=== PATIENT | male | born 1950 | race Caucasian/White ===

== ENCOUNTER 2023-09-08 02:36 | Outpatient (REF) | payer MEDICARE, SELFPAY ==
[2023-09-08 08:14] LABS: Basophils Absolute Auto 0.1 10^3/uL (0.0-0.1); Basophils Percent Auto 0.5 % (0.2-2.0); Eosinophils Absolute Auto 0.1 10^3/uL (0.0-0.7); Eosinophils Percent Auto 0.7 % (0.9-7.0); Hemoglobin 7.2 g/dL (14.0-18.0); Immature Granulocytes Abs Auto 0.04 10^3/uL (0.00-0.03); Immature Granulocytes Pct Auto 0.4 % (0.0-0.5); Lymphocytes Absolute Auto 0.7 10^3/uL (1.2-3.8); Lymphocytes Percent Auto 7.1 % (20.5-60.0); Mean Corpuscular Hemoglobin 27.2 pg (25.9-34.0); Mean Corpuscular Volume 90.6 fL (80.0-94.0); Mean Platelet Volume 11.3 fL (9.5-13.5); Monocytes Absolute Auto 0.8 10^3/uL (0.3-0.8); Monocytes Percent Auto 7.9 % (1.7-12.0); Neutrophils Percent Auto 83.4 % (43.0-75.0); Platelet Count 306 10^3/uL (150-450); Red Blood Count 2.65 10^6/uL (4.70-6.10); Red Cell Distribution Width 16.5 % (11.0-15.0); White Blood Count 9.6 10^3/uL (4.0-11.0)
[2023-09-08 08:41] LABS: Alanine Aminotransferase 14 U/L (16-63); Albumin Globulin Ratio 0.5; Albumin Level 2.3 g/dL (3.4-5.0); Alkaline Phosphatase 89 U/L (46-116); Anion Gap 10.8; Aspartate Amino Transferase 12 U/L (15-37); Bilirubin Total 0.3 mg/dL (0.2-1.0); Calcium 9.6 mg/dL (8.5-10.1); Carbon Dioxide 29.2 mmol/L (21.0-32.0); Chloride 101 mmol/L (98-107); Estimated GFR (African America >60 (>=60); Estimated GFR (Non-African Ame >60 (>=60); Globulin 4.3 g/dL; Glucose 88 mg/dL (74-106); Sodium 137 mmol/L (136-145); Total Protein 6.6 g/dL (6.4-8.2)
== END 2023-09-08 02:37 | disposition home or self-care (01) ==
LOC: LAB 02:36
PROVIDERS: Visit Provider Family Medicine
DX: Z51.81 Encounter for therapeutic drug level monitoring (principal)
CPT/HCPCS: 36415; 80053; 85025

== ENCOUNTER 2023-10-26 07:34 | Outpatient (RCR) | payer MEDICARE, SELFPAY ==
[2023-10-10 15:59] LABS: Hematocrit 24.8 % (42.0-54.0); Mean Corpuscular HGB Conc 27.8 g/dL (29.9-35.2); Mean Corpuscular Hemoglobin 24.3 pg (25.9-34.0); Mean Corpuscular Volume 87.3 fL (80.0-94.0); Mean Platelet Volume 10.6 fL (9.5-13.5); Platelet Count 314 10^3/uL (150-450); Red Blood Count 2.84 10^6/uL (4.70-6.10); Red Cell Distribution Width 15.5 % (11.0-15.0); Reticulocyte Pct Auto 3.24 % (0.60-3.10); White Blood Count 6.9 10^3/uL (4.0-11.0)
[2023-10-10 16:04] LABS: Hemoglobin 6.9 g/dL (14.0-18.0)
[2023-10-10 16:14] LABS: C Reactive Protein 0.65 mg/dL (<=0.50); Lactate Dehydrogenase 162 U/L (85-227)
[2023-10-10 16:41] LABS: Percent Iron Saturation 26.5 %
[2023-10-10 18:14] LABS: Band Neutrophils Absolute 0.3 10^3/uL (0.0-0.3); Eosinophils Absolute Manual 0.34 10^3/uL (0.00-0.70); Lymphocytes Absolute Manual 0.69 10^3/uL (1.20-3.80); Metamyelocytes Absolute Manual 0.06; Monocytes Absolute Manual 0.34 10^3/uL (0.30-0.80); Segmented Neut Absolute Manual 5.17 10^3/uL (1.4-6.5)
[2023-10-11 13:27] VITALS: BP 126/57; PULSE 66; TEMP 37; O2SAT 95
[2023-10-11] MEDS: 0.9 % SODIUM CHLORIDE 250 ML 10 ML IV (13:30)
[2023-10-11] MEDS: ACETAMINOPHEN 325 MG TABLET 650 MG PO (13:33)
[2023-10-11] MEDS: DIPHENHYDRAMINE HCL 25 MG CAPSULE PO (13:33)
--- NOTE | 2023-10-11 13:38 | PC.NURSE ---
1320: Pt. to [facility] via w/c per. granddaughters. Assisted to recliner. Pt. with continuous O2 at 2L n/c. VSS. Denies c/o. IV initiated to right hand per this Rn, see documentation. Medicated with Benadryl and Tylenol as ordered. Second type and crossmatch drawn. Pt. made comfortable. Given warm blanket and water. Declines snack.
[2023-10-11 14:12] LABS: Erythrocyte Sedimentation Rate 31 mm/hr (<=20)
[2023-10-11 14:16] VITALS: BP 126/57; PULSE 66; TEMP 37; O2SAT 95
--- NOTE | 2023-10-11 14:20 | PC.NURSE ---
1418: 1 unit PRBC initiated at this time. Pt. denies needs or c/o.
[2023-10-11 14:32] VITALS: BP 136/63; PULSE 67; TEMP 36.9; O2SAT 100
--- NOTE | 2023-10-11 14:33 | PC.NURSE ---
1432: Pt. without c/o. VSS. Denies dyspnea or c/o pain or chills. O2 maintained at 2L n/c.
--- NOTE | 2023-10-11 15:05 | PC.NURSE ---
1505: Pt. without change. IV site remains clear. Denies needs.
[2023-10-11 15:18] VITALS: BP 127/54; PULSE 61; TEMP 36.7; O2SAT 94
--- NOTE | 2023-10-11 15:29 | PC.NURSE ---
Assisted to bathroom to void.
[2023-10-11 15:48] VITALS: BP 132/66; PULSE 62; TEMP 36.9; O2SAT 94
--- NOTE | 2023-10-11 15:49 | PC.NURSE ---
1540: Pt. pulled call light. Pulled IV catheter out by accident when attempting to clean self after defecating. Approximately 10ML blood left in bag. IV left out. Pressure to site. Pt. assisted with baldomero care. Assisted in to w/c. Denies c/o. VSS.
--- NOTE | 2023-10-11 16:07 | PC.NURSE ---
1558: Pt. without s&s of adverse reaction. Pt. d/c'd via w/c to home with granddaughter.
[2023-10-12 15:10] LABS: Albumin 3.2 g/dL (2.9-4.4); Alpha-1-Globulin 0.3 g/dL (0.0-0.4); Alpha-2-Globulin 0.8 g/dL (0.4-1.0); Gamma Globulin 1.4 g/dL (0.4-1.8); Immunoglobulin A, Qn, Serum 460 mg/dL (61-437); Immunoglobulin G, Qn, Serum 1218 mg/dL (603-1613); Immunoglobulin M, Qn, Serum 191 mg/dL (15-143); Protein, Total 6.7 g/dL (6.0-8.5)
[2023-10-26 09:32] VITALS: BP 119/61; PULSE 86; TEMP 37; O2SAT 94
--- NOTE | 2023-10-26 09:34 | PC.NURSE ---
0920 Arrrival per w/c to chair 4. home oxygen removed, placed on 2 lpm nc wall oxygen, alert oriented offers no complaints. educated on regime for administration of Infed (premeds, test dose, if no reaction then infusion. patient verbalizes understanding. 0925 # 22 inserted on 1 attempt posterior aspect of rt arm, tolerated well.
--- NOTE | 2023-10-26 09:47 | PC.NURSE ---
0923 labs drawn from site and sent to lab
[2023-10-26] MEDS: ACETAMINOPHEN 325 MG TABLET 650 MG PO (10:06)
[2023-10-26] MEDS: diphenhydrAMINE HCL 25 MG in 0.9 % SODIUM CHLORIDE 100 ML 301.5 MG IV (10:07)
[2023-10-26] MEDS: 0.9 % SODIUM CHLORIDE 250 ML 10 ML IV (10:13)
[2023-10-26] MEDS: HYDROCORTISONE SODIUM SUCC/PF 100 MG in 0.9 % SODIUM CHLORIDE 100 ML 306 MG IV (10:30)
[2023-10-26] MEDS: IRON DEXTRAN COMPLEX 100 MG/2 ML VIAL 25 MG IVP (10:56)
--- NOTE | 2023-10-26 10:58 | PC.NURSE ---
premeds infused, test dose administered, educated on s/s of reaction, itching shortness of breath wheezing chest pain ...any outof the ordinary to notify staff, verbalizes understanding
--- NOTE | 2023-10-26 11:29 | PC.NURSE ---
tolerating test dose without any issues.
--- NOTE | 2023-10-26 12:07 | PC.NURSE ---
infed infusion initiated patient reinstructed on s/s rxn as documented earlier, verbalizes understanding
[2023-10-26 12:10] VITALS: BP 125/60; PULSE 81; TEMP 36.8; O2SAT 95
[2023-10-26 13:57] VITALS: BP 146/74; PULSE 84; TEMP 36.7; O2SAT 92
--- NOTE | 2023-10-26 13:58 | PC.NURSE ---
1340 to bathroomper wheelchair, voids qs. returned to chair, tolerating infusion without difficulty
--- NOTE | 2023-10-26 15:15 | PC.NURSE ---
1500 iv iron infused. tolerated well. iv dc'd to bathroom per recliner. family arrives, assisted to wheelchair, released ambulatory
[2023-10-27 15:10] LABS: Hgb A 98.1 % (96.4-98.8); Hgb A2 1.9 % (1.8-3.2)
== END 2023-11-03 23:59 | disposition home or self-care (01) ==
LOC: INF 07:34
PROVIDERS: Visit Provider Internal Medicine Hematology & Oncology
DX: D50.9 Iron deficiency anemia, unspecified (principal); K90.9 Intestinal malabsorption, unspecified; D64.9 Anemia, unspecified; Z86.73 Personal history of transient ischemic attack (TIA), and cerebral infarction without residual deficits; J44.9 Chronic obstructive pulmonary disease, unspecified; Z99.81 Dependence on supplemental oxygen; Z96.641 Presence of right artificial hip joint
CPT/HCPCS: 36415; 36430; 82607; 82728; 82784; 83020; 83540; 83550; 83615; 84155; 84165; 85007; 85027; 85045; 85652; 86140; 86334; 86850; 86900; 86901; 96365; 96366; 96375; G0463; J1720; J1750; P9016

== ENCOUNTER 2023-12-12 07:30 | Outpatient (RCR) | payer MEDICARE, SELFPAY ==
[2023-12-12 14:03] LABS: Basophils Percent Auto 0.7 % (0.2-2.0); Eosinophils Absolute Auto 0.3 10^3/uL (0.0-0.7); Eosinophils Percent Auto 4.7 % (0.9-7.0); Hematocrit 28.1 % (42.0-54.0); Hemoglobin 8.7 g/dL (14.0-18.0); Immature Granulocytes Abs Auto 0.02 10^3/uL (0.00-0.03); Immature Granulocytes Pct Auto 0.3 % (0.0-0.5); Lymphocytes Percent Auto 16.6 % (20.5-60.0); Mean Corpuscular Hemoglobin 27.4 pg (25.9-34.0); Mean Corpuscular Volume 88.6 fL (80.0-94.0); Mean Platelet Volume 11.1 fL (9.5-13.5); Monocytes Absolute Auto 0.8 10^3/uL (0.3-0.8); Monocytes Percent Auto 12.5 % (1.7-12.0); Neutrophils Percent Auto 65.2 % (43.0-75.0); Platelet Count 268 10^3/uL (150-450); Red Blood Count 3.17 10^6/uL (4.70-6.10); White Blood Count 6.1 10^3/uL (4.0-11.0)
[2023-12-12 14:28] LABS: Anion Gap 7.6; BUN Creatinine Ratio 9.9; Calcium 9.2 mg/dL (8.5-10.1); Carbon Dioxide 30.2 mmol/L (21.0-32.0); Chloride 102 mmol/L (98-107); Estimated GFR (African America >60 (>=60); Estimated GFR (Non-African Ame >60 (>=60); Glucose 105 mg/dL (74-106); Potassium 3.8 mmol/L (3.5-5.1); Sodium 136 mmol/L (136-145); Thyroid Stimulating Hormone 2.516 uIU/mL (0.358-3.740)
[2023-12-12 14:55] LABS: Erythrocyte Sedimentation Rate 99 mm/hr (<=20)
== END 2023-12-14 15:28 | disposition home or self-care (01) ==
LOC: INF 07:30
PROVIDERS: Visit Provider Internal Medicine Hematology & Oncology
DX: D64.9 Anemia, unspecified (principal); K90.9 Intestinal malabsorption, unspecified; D50.9 Iron deficiency anemia, unspecified; Z87.891 Personal history of nicotine dependence; J44.9 Chronic obstructive pulmonary disease, unspecified; Z86.73 Personal history of transient ischemic attack (TIA), and cerebral infarction without residual deficits; Z99.81 Dependence on supplemental oxygen
CPT/HCPCS: 36415; 80048; 82306; 82607; 82728; 82746; 83540; 83550; 84443; 85025; 85652; G0463

== ENCOUNTER 2023-12-25 07:33 | Outpatient (RCR) | payer MEDICARE, SELFPAY ==
[2023-12-25 09:50] VITALS: BP 129/50; PULSE 91; TEMP 36.6; O2SAT 93
--- NOTE | 2023-12-25 10:06 | PC.NURSE ---
0950: Pt. to [facility] via w/c accompanied by daughter. Pt. with portable O2 in place. Assisted pt. to recliner. O2 to wall unit. VSS. IV initiated to left arm on first attempt, see documentation. Tolerated without c/o. Given warm blanket and pillow. Declines snack. Drinking beverage from home. Denies questions regarding medication. Denies needs.
[2023-12-25] MEDS: diphenhydrAMINE HCL 25 MG, HYDROCORTISONE SODIUM SUCC/PF 100 MG in 0.9 % SODIUM CHLORID... 307.5 MG IV (10:15)
[2023-12-25] MEDS: ACETAMINOPHEN 500 MG TABLET 1000 MG PO (10:16)
--- NOTE | 2023-12-25 10:26 | PC.NURSE ---
1015: Pre-meds administered at this time.
--- NOTE | 2023-12-25 11:00 | PC.NURSE ---
1050: Pre-meds completed without adverse reaction. IV Infed initiated at this time. Assisted pt. to bathroom. 1058: Returns to chair. Re-positioned for comfort. Denies needs.
--- NOTE | 2023-12-25 14:18 | PC.NURSE ---
1130: Tolerating infusion without c/o. Assisted back up to bathroom. Pt. voided and had BM. Returns to room. O2 maintained. Declines wanting to eat. 1215: No new change in overall status. Denies needs. 1300: Taken to bathroom via chair. 1425: Infusion completed at this time. Pt. tolerated without s&s of adverse reaction. IV d/c'd, pressure to site. Awaits in recliner for ride home.
--- NOTE | 2023-12-25 14:39 | PC.NURSE ---
1432: Pt. d/c'd via w/c with portable O2 intact to home with daughter.
== END 2024-01-03 23:59 | disposition home or self-care (01) ==
LOC: HEMC 07:33
PROVIDERS: Visit Provider Internal Medicine Hematology & Oncology
DX: D50.9 Iron deficiency anemia, unspecified (principal); K90.9 Intestinal malabsorption, unspecified
CPT/HCPCS: 96365; 96366; 96367; J1200; J1720; J1750

== ENCOUNTER 2024-01-11 07:58 | Outpatient (RCR) | payer MEDICARE, SELFPAY ==
[2024-01-11 10:09] LABS: Basophils Absolute Auto 0.1 10^3/uL (0.0-0.1); Basophils Percent Auto 0.8 % (0.2-2.0); Eosinophils Absolute Auto 0.2 10^3/uL (0.0-0.7); Eosinophils Percent Auto 3.8 % (0.9-7.0); Hematocrit 32.5 % (42.0-54.0); Hemoglobin 9.8 g/dL (14.0-18.0); Immature Granulocytes Abs Auto 0.03 10^3/uL (0.00-0.03); Immature Granulocytes Pct Auto 0.5 % (0.0-0.5); Lymphocytes Absolute Auto 0.8 10^3/uL (1.2-3.8); Lymphocytes Percent Auto 12.3 % (20.5-60.0); Mean Corpuscular HGB Conc 30.2 g/dL (29.9-35.2); Mean Corpuscular Hemoglobin 28.3 pg (25.9-34.0); Mean Corpuscular Volume 93.9 fL (80.0-94.0); Monocytes Absolute Auto 0.7 10^3/uL (0.3-0.8); Monocytes Percent Auto 10.2 % (1.7-12.0); Neutrophils Absolute Auto 4.6 10^3/uL (1.4-6.5); Neutrophils Percent Auto 72.4 % (43.0-75.0); Platelet Count 268 10^3/uL (150-450); Red Blood Count 3.46 10^6/uL (4.70-6.10); Red Cell Distribution Width 17.2 % (11.0-15.0); White Blood Count 6.4 10^3/uL (4.0-11.0)
[2024-01-11 10:14] LABS: Erythrocyte Sedimentation Rate 64 mm/hr (<=20)
[2024-01-11 10:49] LABS: Alanine Aminotransferase 25 U/L (16-63); Albumin Globulin Ratio 0.8; Albumin Level 3.5 g/dL (3.4-5.0); Alkaline Phosphatase 113 U/L (46-116); Anion Gap 9.1; Aspartate Amino Transferase 22 U/L (15-37); BUN Creatinine Ratio 16.3; Bilirubin Total 0.2 mg/dL (0.2-1.0); C Reactive Protein 0.72 mg/dL (<=0.50); Calcium 9.7 mg/dL (8.5-10.1); Carbon Dioxide 32.1 mmol/L (21.0-32.0); Chloride 100 mmol/L (98-107); Estimated GFR (African America >60 (>=60); Estimated GFR (Non-African Ame >60 (>=60); Globulin 4.2 g/dL; Glucose 109 mg/dL (74-106); Potassium 4.2 mmol/L (3.5-5.1); Sodium 137 mmol/L (136-145); Total Protein 7.7 g/dL (6.4-8.2)
[2024-01-11 11:23] LABS: Percent Iron Saturation 15.7 %
[2024-01-12 15:12] LABS: Albumin 3.7 g/dL (2.9-4.4); Alpha-1-Globulin 0.2 g/dL (0.0-0.4); Alpha-2-Globulin 0.8 g/dL (0.4-1.0); Free Kappa Lt Chains,S 65.5 mg/L (3.3-19.4); Free Lambda Lt Chains,S 51.5 mg/L (5.7-26.3); Gamma Globulin 1.2 g/dL (0.4-1.8); Immunofixation Result, Serum Comment: (.); Immunoglobulin A, Qn, Serum 490 mg/dL (61-437); Immunoglobulin G, Qn, Serum 1247 mg/dL (603-1613); Immunoglobulin M, Qn, Serum 187 mg/dL (15-143); Kappa/Lambda Ratio,S 1.27 (0.26-1.65)
[2024-01-15 15:08] LABS: Erythropoietin (EPO), Serum 33.4 mIU/mL (2.6-18.5)
== END 2024-02-03 23:59 | disposition home or self-care (01) ==
LOC: HEMC 07:58
PROVIDERS: Visit Provider Internal Medicine Hematology & Oncology
DX: D50.9 Iron deficiency anemia, unspecified (principal); K90.9 Intestinal malabsorption, unspecified; J44.9 Chronic obstructive pulmonary disease, unspecified; Z99.81 Dependence on supplemental oxygen; Z86.73 Personal history of transient ischemic attack (TIA), and cerebral infarction without residual deficits; Z96.641 Presence of right artificial hip joint
CPT/HCPCS: 36415; 80053; 82607; 82668; 82728; 82784; 83521; 83540; 83550; 84155; 84165; 85025; 85652; 86140; G0463

== ENCOUNTER 2024-04-16 07:46 | Outpatient (RCR) | payer MEDICARE, SELFPAY ==
--- OUTSIDE RECORDS SUMMARY | 2024-04-16 07:59 | XMS_ITS | CCD ---
Author Organization [facility] Care Team Providers Care Distributor Sales Consultant Name Role Phone PHYSICIAN, DEFAULT Unavailable Unavailable PHYSICIAN, DEFAULT Unavailable Unavailable ALI, GUILLORY Unavailable Unavailable ALI, GUILLORY Unavailable Unavailable POLINA QUEZADA Unavailable Unavailable POLINA QUEZADA Unavailable Unavailable IA Unavailable Unavailable ELTAHAWY, EHAB A Unavailable Unavailable IA Unavailable Unavailable ALI, GUILLORY Unavailable Unavailable NACHO, DR GUILLAUME Zavaleta Consulting Unavailable PILAR, DR POLINA Orellana Primary Care Unavailable NACHO, DR GUILLAUME Zavaleta Attending Unavailable NACHO, DR GUILLAUME Zavaleta Admitting Unavailable Kyle Max Consulting Unavailable PILAR, DR POLINA Orellana Primary Care Unavailable QUEZADA, DR POLINA Orellana Attending Unavailable PILAR, DR POLINA Orellana Admitting Unavailable Polina Quezada Unavailable MONTRELL HAIRSTON Admitting Unavailable MONTRELL HAIRSTON Attending Unavailable POLINA QUEZADA Primary Care Unavailable BRAULIO SANTANA Consulting Unavailable MICHELE LOVE Attending Unavailable SP DAY Primary Care Unavailable STEFANI EUBANKS Consulting Unavailable PRIYANKA, MUHAMID M Admitting Unavailable INPATIENT, TELENEUROLOGY Consulting Unavail able PETER GAY S Consulting Unavailable MICHELE LOVE Attending Unavailable MICHELE LOVE Referring Unavailable SP DAY Primary Care Unavailable MICHELE LOVE Attending Unavailable MICHELE LOVE Referring Unavailable SP DAY Primary Care Unavailable LIOR, CARL D Attending Unavailable LIOR, CARL D Referring Unavailable SP DAY B Primary Care Unavailable LIOR, CARL D Attending Unavailable LIOR, CARL D Referring Unavailable SP DAY Primary Care Unavailable JILLIAN GOMEZ Referring Unavailable REF PROV, NOT IN SYSTEM Referring Unavaila ble SP DAY Referring Unavailable NO PCP, NO PCP Primary Care Unavailable NO PCP, NO PCP Primary Care Unavailable JILLIAN GOMEZ Referring Unavailable STEPHANIE HALL Admitting Unavailable STEPHANIE HALL Attending Unavailable ROSELYN RAZO Referring Unavail able QUEZADA, POLINA Primary Care Unavailable KATHRIN PETERSON Consulting Unavail able MIGUEL A MEAD Consulting Unavailable ZAYNAB GUNN Consulting Unavailable MONTRELL OWENS Consulting Unavailabl e SAMIRA, BUBBA Consulting Unavailable PETER GAY Consulting Unavailable MARGARITA MARIE Consulting Unavailable BRANDON VAZQUEZ Consulting Unavailable CARY LYNCH Consulting Unavailable YENNI VELASCO Admitting Unavailable EYNNI VELASCO Attending Unavailable PRIYANKAMAT Coleman M Referring Unavailable DAY, SP B Primary Care Unavailable KOLTON SOMERS Consulting Unavailabl e [facility]ARDIOLOG[facility], [facility] Consulting Unavailable [facility] Consulting Unavailable RYDER RODRIGUEZ Consulting Unavailable PRIYANKAMAT Coleman M Referring Unavailable DAY, SP B Primary Care Unavailable CICI BELL Referring Unavailable DAY, SP B Primary Care Unavailable LIANET SNELL Referring Unavailable MAURICIO CLEVELAND Attending Unavailable TANK, MAURICIO Referring Unavailable LIANET SNELL Referring Unavailable DAY, PS B Primary Care Unavailable GLO LAKE Attending Unavailable GLO LAKE Referring Unavailable QUEZADA, POLINA E Primary Care Unavailable SALBADOR BANERJEE Attending Unavailable QUEZADA, POLINA E Primary Care Unavailable TANK, MAURICIO Attending Unavailable TANK, MAURICIO Referring Unavailable QUEZADA, POLINA E Primary Care Unavailable CRISTOFER, MAURICIO Attending Unavailable TANK, MAURICIO Referring Unavailable QUEZADA, POLINA E Primary Care Unavailable NOEL GREEN Referring Unavailable QUEZADA, POLINA E Primary Care Unavailable STEVO WASHINGTON Referring Unavailable QUEZADA, POLINA E Primary Care Unavailable QUEZADA, POLINA E Referring Unavailable QUEZADA, POLINA E Primary Care Unavailable TANK, MAURICIO Referring Unavailable QUEZADA, POLINA E Primary Care Unavailable CRISTOFER, MAURICIO Attending Unavailable QUEZADA, POLINA E Referring Unavailable QUEZADA, POLINA E Primary Care Unavailable MD Polina Quezada Primary Care Provider MD Clemente Fragoso Attending Provider MD Polina Quezada Primary Care Provider [phone] MD Clemente Fragoso Attending Provider [phone] Clemente Fragoso Admitting Unavailable Polina Quezada Primary Care Unavailable Clemente Fragoso Attending Unavailable Polina Quezada Primary Care Unavailable Clemente Fragoso Attending Unavailable Clemente Fragoso Admitting Unavailable Medications Current Medications Medication Drug Class(es) Dates Sig (Normalized) Sig (Original) albuterol 0.83 mg/ml inhalation solution (14 sources) beta2-Adrenergic Agonist Start: 01-03-2024 End: 03-11-2024 take 2.5 mg by inhalation three times daily Albuterol Sulfate Active 2.5 MG INHALATION Three times daily 180 March 11, 2024 7:54am Start: 09-25-2023 End: 01-03-2024 Albuterol Sulfate Discontinu ed 2.5 MG INHALATION Once September 24, 2023 11:00pm January 03, 2024 8:26am FreeTextSig: USE 1 VIAL PER NEBULIZER 3 TIMES DAILY; Note: Source Status: Refill; Refills: 0; Qty: 300 Milliliter; Provider: Pilar Orellana Albuterol Sulfat e (2.5 MG/3ML) 0.083% USE 1 VIAL PER NEBULIZER 3 TIMES DAILY for 90 days Active aspirin 81 mg delayed release oral tablet (15 sources) Platelet Aggregation Inhibitor, Nonsteroidal Anti-inflammatory Drug Start: 01-15-2024 take 1 tablet by mouth once daily Aspirin Active 0 .ROUTE .COMPLEX January 15, 2024 10:40am TAKE 1 TABLET BY MOUTH EVERY DAY Start: 09-25-2023 End: 01-15-2024 take 81 mg by mouth once daily Aspirin Discontinued 81 MG PO Daily October 18, 2023 11:41am January 15, 2024 10:40am Baby Aspirin Act anca atorvastatin 20 mg oral tablet (15 sources) HMG-CoA Reductase Inhibitor Start: 01-15-2024 End: 01-22-2024 take 1 tablet by mouth once daily Atorvastatin Active 0 .ROUTE .COMPLEX January 22, 2024 7:41am TAKE 1 TABLET BY MOUTH DAILY Start: 09-26-2023 End: 01-15-2024 take 20 mg by mouth once daily Atorvastatin Discontinu ed 20 MG PO Daily October 18, 2023 11:41am January 15, 2024 10:40am calcium citrate 950 mg oral tablet (12 sources) Start: 01-15-2024 take 1 tablet by mouth twice daily Calcium Citrate Active 0 .ROUTE .COMPLEX 180 January 15, 2024 10:40am TAKE 1 TABLET BY MOUTH TWICE A DAY Start: 09-26-2023 End: 01-15-2024 take 200 mg by mouth twice daily Calcium Citrate Discontinued 200 MG PO Twice daily 180 October 18, 2023 11:41am January 15, 2024 10:40am Cholecalciferol (Vitamin D3) (Osteo-Vit3) 1,250 mcg/3 mL drops (1 source) Start: 09-26-2023 Cholecalcifero l (Vitamin D3) (Osteo-Vit3) 1,250 mcg/3 mL drops Active MCG PO September 26, 2023 12:00am Abwgyzsfaoa-Uycutqcdv-Hry anter (15 sources) Anticholinergic, Corticosteroid, beta2-Adrenergic Agonist Start: 02-02-2024 Fluticasone-Umeclidi n-Vi lanter (Trelegy Ellipta) 100-62.5-25 mcg blister with device Active 1 INH INHALATION Daily 60 February 02, 2024 9:07pm Start: 02-02-2024 Fluticasone-Um eclidin-Vilanter (Trelegy Ellipta) 100-62.5-25 mcg blister with device Active 1 INH INHALATION Daily 60 February 02, 2024 10:07pm Start: 10-18-2023 End: 02-02-2024 Grtcyosrqry-Jdxedelhb-Oxepxn er (Trelegy Ellipta) 100-62.5-25 mcg blister with device Discontinued 1 INH INHALATION Daily 60 October 18, 2023 11:42am February 02, 2024 9:07pm Start: 10-18-2023 End: 02-02-2024 Hicsgqxqxqc-Qtpqrqgwd-Khtvee er (Trelegy Ellipta) 100-62.5-25 mcg blister with device Discontinued 1 INH INHALATION Daily 60 October 18, 2023 12:42pm February 02, 2024 10:07pm Start: 10-18-2023 Fluticasone-Um eclidin-Vilanter (Trelegy Ellipta) 100-62.5-25 mcg blister with device Active 1 INH INHALATION Daily 60 October 18, 2023 12:42pm Start: 09-25-2023 End: 10-18-2023 take 1 puff(s) by mouth once daily Wuwruvbsxoz-Gmqpyxlmp-Ghjugrsi (Trelegy Ellipta) 100-62.5-25 mcg blister with device Discontinued INHALATION September 24, 2023 11:00pm October 18, 2023 11:44am FreeTextSig: INHALE 1 PUFF BY MOUTH DAILY; Note: Source Status: Taking; Refills: 3; Qty: 60 Each; Provider: Pilar Brewer ( ) Start: 09-25-2023 End: 10-18-2023 take 1 puff(s) by mouth once daily Gdefwijslmx-Zamednjom-Qzrjbvik (Trelegy Ellipta) 100-62.5-25 mcg blister with device Discontinued INHALATION September 25, 2023 12:00am October 18, 2023 12:44pm FreeTextSig: INHALE 1 PUFF BY MOUTH DAILY; Note: Source Status: Taking; Refills: 3; Qty: 60 Each; Provider: Pilar Brewer ( ) Start: 09-25-2023 take 1 puff(s) by mouth once daily Qawtdopmpro-Wdaozzcyx-Lthigmqx (Trelegy Ellipta) 100-62.5-25 mcg blister with device Active INHALATION September 25, 2023 12:00am FreeTextSig: INHALE 1 PUFF BY MOUTH DAILY; Note: Source Status: Taking; Refills: 3; Qty: 60 Each; Provider: Pilar Brewer ( ) take 1 puff(s) by mouth once daily Trelegy Ellipta 100-62.5-25 MCG/ACT INHA LE 1 PUFF BY MOUTH DAILY for 30 Active folic acid 1 mg oral tablet (5 sources) Start: 09-26-2023 take 1 mg by mouth once daily Folic Acid Active 1 MG PO Daily September 25, 2023 11:00pm 200 actuat ipratropium bromide 0.017 mg/actuat metered dose inhaler (3 sources) Anticholinergic Start: 02-08-2024 take 1 puff(s) by inhalation every eight hours Ipratropium [place] Active 2 PUFF INHALATION Every 8 hours 12.9 February 07, 2024 11:00pm mecobalamin 1 mg sublingual tablet (3 sources) Start: 01-05-2024 Mecobalamin (Vitamin B12) Active 1000 MCG SUBLINGUAL Daily January 04, 2024 11:00pm place tablet under tongue and allow to dissolve for at least30 secs before swallowing melatonin 3 mg oral tablet (5 sources) Start: 09-26-2023 take 3 mg by mouth once daily at bedtime Melatonin Active 3 MG PO Daily at bedtime September 25, 2023 11:00pm Omeprazole Magnesium (Prilosec Otc) 20 mg tablet,delayed release (DR/EC) (6 sources) Start: 02-13-2024 take 1 tablet by mouth once daily Omeprazole Magnesium (Prilosec Otc) 20 mg tablet,delayed release (DR/EC) Active 20 MG PO Daily February 13, 2024 7:46am Start: 02-13-2024 take 1 tablet by rj th once daily Omeprazole Magnesium (Prilosec Otc) 20 mg tablet,delayed release (DR/EC) Active 20 MG PO Daily February 13, 2024 8:46am Start: 01-05-2024 End: 02-13-2024 take 1 tablet by mouth once daily Omeprazole Magnesium (Prilosec Otc) 20 mg tablet,delayed release (DR/EC) Discontinued 20 MG PO Daily January 04, 2024 11:00pm February 13, 2024 7:47am Start: 01-05-2024 End: 02-13-2024 take 1 tablet by mouth once daily Omeprazole Magnesium (Prilosec Otc) 20 mg tablet,delayed release (DR/EC) Discontinued 20 MG PO Daily January 05, 2024 12:00am February 13, 2024 8:47am sertraline 25 mg oral tablet (15 sources) Serotonin Reuptake Inhibitor Start: 01-05-2024 End: 02-13-2024 take 1 tablet by mouth once daily Sertraline (Zoloft) 25 mg tablet Active 25 MG PO Daily February 13, 2024 7:46am Start: 09-26-2023 End: 01-02-2024 take 25 mg by mouth once daily Sertraline Discontinued 25 MG PO Daily October 18, 2023 11:44am January 02, 2024 10:08am tamsulosin hydrochloride 0.4 mg oral capsule (15 sources) alpha-Adrenergic [place] Start: 01-15-2024 take 1 capsule by mouth once daily Tamsulosin Active 0 .ROUTE .COMPLEX 90 January 15, 2024 10:40am TAKE 1 CAPSULE BY MOUTH EVERY DAY Start: 09-25-2023 End: 01-15-2024 take 1 capsule by mouth once daily Tamsulosin Discontinued 0.4 MG PO Daily October 18, 2023 11:44am January 15, 2024 10:40am FreeTextSig: TAKE 1 CAPSULE BY MOUTH EVERY DAY; Note: Source Status: Taking; Refills: 5; Qty: 90 Capsule; Provider: Pilar Brewer ( ) take 1 capsule by [facility] once daily Tamsulosin HCl 0.4 MG TAKE 1 CAPSULE BY MOUTH EVERY DAY for 90 Active Completed/Discontinued Medications Medication Drug Class(es) Dates Sig (Normalized) Sig (Original) albuterol 0.833 mg/ml / ipratropium bromide 0.167 mg/ml inhalation solution (5 sources) Anticholinergic, beta2-Adrenergic Agonist Start: 09-26-2023 End: 01-02-2024 take 1 mL by inhalation every six hours Ipratropium-Albutero l Discontinued 3 ML INHALATION Every 6 hours September 25, 2023 11:00pm January 02, 2024 10:07am cetirizine hydrochloride 10 mg oral capsule (5 sources) Histamine-1 Receptor Antagonist Start: 09-26-2023 End: 10-18-2023 take 1 capsule by mouth once daily Cetirizine (Zyrtec) 10 mg capsule Discontinued 10 MG PO Daily September 25, 2023 11:00pm October 18, 2023 11:42am Cholecalciferol (Vitamin D3) (4 sources) Vitamin D Start: 09-26-2023 End: 01-02-2024 Cholecalciferol (Vitamin D3) (Osteo-Vit3) 1,250 mcg/3 mL drops Discontinued MCG PO September 25, 2023 11:00pm January 02, 2024 10:04am Start: 09-26-2023 End: 01-02-2024 Cholecalciferol (Vitamin D3) (Osteo-Vit3) 1,250 mcg/3 mL drops Discontinued MCG PO September 26, 2023 12:00am January 02, 2024 11:04am docusate sodium 100 mg oral capsule (5 sources) Start: 09-26-2023 End: 10-18-2023 take 100 mg by mouth once daily Docusate Sodium Discontinued 100 MG PO Daily September 25, 2023 11:00pm October 18, 2023 11:42am doxazosin 4 mg oral tablet (15 sources) alpha-Adrenergi c Grady Start: 01-05-2024 End: 02-27-2024 take 1 tablet by mouth once daily Doxazosin (Cardura) 4 mg tablet Discontinued 4 MG PO Daily February 13, 2024 9:12am February 27, 2024 10:04am Start: 09-26-2023 End: 01-02-2024 take 1 tablet by mouth once daily Doxazosin (Cardura) 4 mg tablet Discontinued 4 MG PO Daily October 18, 2023 11:42am January 02, 2024 10:08am 0.4 ml enoxaparin sodium 100 mg/ml prefilled syringe (5 sources) Low Molecular Weight Heparin Start: 09-26-2023 End: 10-18-2023 inject 40 mg by subcutaneous injection once daily Enoxaparin Discontinued 40 MG SUBCUT Daily September 25, 2023 11:00pm October 18, 2023 11:42am ferrous sulfate 325 mg oral tablet (5 sources) Start: 09-26-2023 End: 01-02-2024 take 325 mg by mouth once daily Ferrous Sulfate Discontinued 325 MG PO Daily September 25, 2023 11:00pm January 02, 2024 10:05am lidocaine 0.04 mg/mg medicated patch (5 sources) Antiarrhythmic, Amide Local Anesthetic Start: 09-26-2023 End: 01-02-2024 apply 1 dose topically once daily Lidocaine Discontinued 1 PATCH TOPICAL Daily September 25, 2023 11:00pm January 02, 2024 10:07am magnesium oxide 400 mg oral tablet (5 sources) Start: 09-26-2023 End: 10-18-2023 take 400 mg by mouth once daily Magnesium Oxide Discontinued 400 MG PO Daily September 25, 2023 11:00pm October 18, 2023 11:43am midodrine hydrochloride 10 mg oral tablet (13 sources) alpha-Adrenergic Agonist Start: 09-26-2023 End: 12-25-2023 take 1 dose by mouth once daily at bedtime Midodrine Discontinued 10 MG PO Three times daily November 09, 2023 11:14am December 25, 2023 11:44am do not give last dose of day after 6PM or within 4 hrs of bedtime 24 hr nicotine 0.292 mg/hr transdermal system (5 sources) Cholinergic Nicotinic Agonist Start: 09-26-2023 End: 01-02-2024 apply 1 dose transdermal route once daily Nicotine Discontinued 1 PATCH TRANSDERML Daily September 25, 2023 11:00pm January 02, 2024 10:07am omeprazole 20 mg delayed release oral capsule (9 sources) Proton Pump Inhibitor Start: 09-26-2023 End: 01-02-2024 take 20 mg by mouth once daily Omeprazole Discontinued 20 MG PO Daily October 18, 2023 11:43am January 02, 2024 10:07am polyethylene glycol 3350 29813 mg powder for oral solution (5 sources) Osmotic Laxative Start: 09-26-2023 End: 10-18-2023 Polyethylene Glycol 3350 (Miralax) 17 gram/dose powder Discontinued 17 GM PO Daily September 25, 2023 11:00pm October 18, 2023 11:44am Sennosides (Senokot) 8.6 mg tablet (5 sources) Start: 09-26-2023 End: 10-18-2023 take 1 tablet by mouth once daily Sennosides (Senokot) 8.6 mg tablet Discontinued 8.6 MG PO Daily September 25, 2023 11:00pm October 18, 2023 11:44am Start: 09-26-2023 End: 10-18-2023 take 1 tablet by mouth once daily Sennosides (Senokot) 8.6 mg tablet Discontinued 8.6 MG PO Daily September 26, 2023 12:00am October 18, 2023 12:44pm Start: 09-26-2023 take 1 tablet by rj th once daily Sennosides (Senokot) 8.6 mg tablet Active 8.6 MG PO Daily September 26, 2023 12:00am sucralfate 1000 mg oral tablet (5 sources) Aluminum Complex Start: 09-26-2023 End: 10-18-2023 take 1 g by mouth twice daily Sucralfate Discontinued 1 GM PO Twice daily September 25, 2023 11:00pm October 18, 2023 11:44am thiamine 100 mg oral tablet (5 sources) Start: 09-26-2023 End: 01-02-2024 take 100 mg by mouth once daily Thiamine Hcl (Vitamin B1) Discontinued 100 MG PO Daily September 25, 2023 11:00pm January 02, 2024 10:08am Umeclidinium (5 sources) Anticholinergic Start: 09-26-2023 End: 01-02-2024 take 62.5 ug by inhalation once daily Umeclidinium (Incruse Ellipta) 62.5 mcg/actuation blister with device Discontinued 1 INH INHALATION Daily September 25, 2023 11:00pm January 02, 2024 10:10am Start: 09-26-2023 End: 01-02-2024 take 62.5 ug by inhalation once daily Umeclidinium (Incruse Ellipta) 62.5 mcg/actuation blister with device Discontinued 1 INH INHALATION Daily September 26, 2023 12:00am January 02, 2024 11:10am Start: 09-26-2023 take 62.5 ug by inha lation once daily Umeclidinium (Incruse Ellipta) 62.5 mcg/actuation blister with device Active 1 INH INHALATION Daily September 26, 2023 12:00am Problems Active Problems Problem Classification Problem Date Documented Date Episodic/Chronic Abdominal hernia (3 sources) Inguinal hernia; Translations: [Unilateral inguinal hernia, without obstruction or gangrene, not specified as recurrent] Episodic Alcohol-related disorders (2 sources) Alcoholic cirrhosis of liver without ascites; Translations: [Alcoholic hepatitis without ascites] Onset: 05-21-2018 Chronic Alcohol-related disorders (1 source) Alcohol abuse, in remission; Translations: [ALCOHOL ABUSE, IN REMISSION] Onset: 05-21-2018 Chronic obstructive pulmonary disease and bronchiectasis (15 sources) Chronic obstructive pulmonary disease, unspecified; Translations: [Chronic obstructive lung disease] Onset: 05-21-2018 Chronic Coagulation and hemorrhagic disorders (2 sources) Coagulation defect, unspecified; Translations: [Coagulation defect, unspecified] Onset: 08-05-2023 Chronic Congestive heart failure; nonhypertensive (2 sources) Acute systolic (congestive) heart failure; Translations: [Heart failure, unspecified] Onset: 03-21-2023 Chronic Congestive heart failure; nonhypertensive (1 source) Right heart failure, unspecified; Translations: [RIGHT HEART FAILURE, UNSPECIFIED] Onset: 05-21-2018 Coronary atherosclerosis and other heart disease (1 source) Atherosclerotic heart disease of [place] coronary artery without angina pectoris; Translations: [ASHD [place] W/O ANGINA PECTORIS] Onset: 05-04-2021 Chronic Deficiency and other anemia (3 sources) 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; Translations: [Other nonautoimmune hemolytic anemias] 01-11-2024 Chronic Deficiency and other anemia (2 sources) Other nonautoimmune hemolytic anemias; Translations: [Other non-autoimmune hemolytic anemias] 01-02-2024 Chronic Deficiency and other anemia (1 source) Other specified anemias; Translations: [Other specified anemias] Onset: 03-21-2023 Episodic Deficiency and other anemia (3 sources) Anemia, unspecified; Translations: [Anemia, unspecified] Onset: 03-27-2023 09-26-2023 Episodic Deficiency and other anemia (5 sources) Chronic anemia; Translations: [Anemia, unspecified] 09-26-2023 Episodic E Codes: Fall (2 sources) Unspecified fall, initial encounter; Translations: [UNSPECIFIED FALL INITIAL ENCOUNTER] Onset: 05-04-2021 Episodic Essential hypertension (8 sources) Essential hypertension; Translations: [Essential (primary) hypertension] Chronic Fluid and electrolyte disorders (1 source) Hypo-osmolality and hyponatremia; Translations: [HYPO-OSMOLALITY AND HYPONATREMIA] Onset: 05-21-2018 Episodic Fracture of neck of femur (hip) (3 sources) Fracture of unspecified part of neck of right femur, initial encounter for closed fracture; Translations: [Fracture of unspecified part of neck of right femur, subsequent encounter for closed fracture with routine healing] Onset: 08-05-2023 Episodic Heart valve disorders (1 source) Rheumatic tricuspid insufficiency; Translations: [RHEUMATIC TRICUSPID INSUFFICIENCY] Onset: 05-21-2018 Chronic Hyperplasia of prostate (3 sources) Lower urinary tract symptoms due to benign prostatic hypertrophy; Translations: [Benign prostatic hyperplasia with lower urinary tract symptoms] Chronic Hypertension with complications and secondary hypertension (1 source) Hypertensive heart disease with heart failure; Translations: [HYPERTENSIVE HEART DISEASE WITH HEART FAILURE] Onset: 05-21-2018 Chronic Immunizations and screening for infectious disease (3 sources) Vaccination given; Translations: [Encounter for immunization] Episodic Malaise and fatigue (1 source) Weakness Episodic Nutritional deficiencies (2 sources) Unspecified severe protein-calorie malnutrition; Translations: [UNSPECIFIED SEVERE PROTEIN-CALORIE MALNUTRITION] Onset: 05-21-2018 Chronic Open wounds of head; neck; and trunk (4 sources) Laceration without foreign body of left eyelid and periocular area, initial encounter; Translations: [LAC NO FB LT EYELID PERIOCULAR INIT] Onset: 04-29-2021 Episodic Other aftercare (1 source) exterminator helper (current) use of aspirin; Translations: [SKILLED NURSING CURRENT USE OF ASPIRIN] Onset: 05-04-2021 Episodic Other aftercare (1 source) Other terminal system operator (current) drug therapy; Translations: [OTH SKILLED NURSING CURRENT DRUG THERAPY] Onset: 05-04-2021 Episodic Other fractures (1 source) Other specified fracture of right pubis, initial encounter for closed fracture; Translations: [Other specified fracture of right pubis, initial encounter for closed fracture] Onset: 08-06-2023 Episodic Other fractures (1 source) Other specified fracture of right pubis, sequela; Translations: [Other specified fracture of right pubis, sequela] Onset: 08-06-2023 Episodic Other hematologic conditions (1 source) Elevated erythrocyte sedimentation rate; Translations: [Elevated erythrocyte sedimentation rate] Onset: 03-13-2024 Episodic Other hereditary and degenerative nervous system conditions (1 source) Degenerative disease of nervous system, unspecified; Translations: [Degenerative disease of nervous system, unspecified] Onset: 08-05-2023 Chronic Other injuries and conditions due to external causes (1 source) Fracture of bone Onset: 08-24-2023 Episodic Other injuries and conditions due to external causes (4 sources) H/O: hip fracture; Translations: [Personal history of (healed) traumatic fracture] 09-26-2023 Episodic Other lower respiratory disease (1 source) Other abnormalities of breathing; Translations: [Other abnormalities of breathing] Onset: 03-21-2023 Episodic Other nutritional; endocrine; and metabolic disorders (1 source) Hypomagnesemia; Translations: [HYPOMAGNESEMIA] Onset: 05-21-2018 Chronic Other nutritional; endocrine; and metabolic disorders (1 source) Abnormal weight loss Episodic Residual codes; unclassified (1 source) Body mass index (BMI) 23.0-23.9, adult; Translations: [BODY MASS INDEX (BMI) 23.0-23.9, ADULT] Onset: 05-21-2018 Episodic Residual codes; unclassified (1 source) Altered mental status, unspecified; Translations: [Altered mental status, unspecified] Onset: 08-05-2023 Episodic Respiratory failure; insufficiency; arrest (adult) (2 sources) Acute and chronic respiratory failure with hypoxia; Translations: [Acute and chronic respiratory failure with hypercapnia] Onset: 08-05-2023 Chronic Respiratory failure; insufficiency; arrest (adult) (3 sources) Acute respiratory failure with hypoxia; Translations: [ACUTE RESPIRATORY FAILURE WITH HYPOXIA] Onset: 05-21-2018 Episodic Substance-related disorders (5 sources) Nicotine dependence, unspecified, uncomplicated; Translations: [Nicotine dependence, cigarettes, uncomplicated] Onset: 05-21-2018 Chronic Syncope (7 sources) Syncope and collapse; Translations: [Syncope and collapse] 09-26-2023 Episodic Unclassified (2 sources) Unknown / UNK(Unknown) Onset: 05-21-2018 Unclassified (1 source) Hip Injury Onset: 08-04-2023 Unclassified (1 source) EMS Onset: 08-04-2023 Unclassified (1 source) Outpatient Infusion Onset: 06-09-2023 Unclassified (1 source) Post-op Onset: 08-24-2023 Unclassified (1 source) Closed fracture right pubic rami Onset: 08-06-2023 Past or Other Problems Problem Classification Problem Date Documented Da te Episodic/Chronic Deficiency and other anemia (2 sources) Iron deficiency anemia, unspecified; Translations: [IRON DEFICIENCY ANEMIA, UNSPECIFIED] Onset: 05-21-2018 Episodic Other lower respiratory disease (3 sources) Dyspnea; Translations: [Other forms of dyspnea] Onset: 05-08-2018 Episodic Other nutritional; endocrine; and metabolic disorders (3 sources) Abnormal weight gain; Translations: [Abnormal weight gain] Onset: 05-08-2018 Episodic Results Test Name Value Interpretation Reference Range Facility Angiotensin Converting Enzym fletcher 04-09-2024 Angiotensin converting enzyme [Catalytic activity/Vol] 27 U/L Normal 14-82 [facility] Comment on above: Result Comment: Perf ormed at: - [facility] [address] [id number] Aircraft Communicator: Fareed Santos PhD, Phone: [phone] PERFORMED BY: [place] [address] PATHOLOGIST MAGAZINE JOURNALIST ROBERT DAVIS M.D. Performed By: #### C BC, FE and TIBC, ARLENE #### [place] [address] [place] #### LAURA #### [facility] , Automated basophil %Ordered By: Clemente Fragoso on 04-09-2024 Basophils/100 WBC (Bld) 1.2 % Normal . [facility] Comment on above: Performed By: #### C BC, FE and TIBC, ARLENE #### [place] [address] [place] #### LAURA #### [facility] , Automated basophil countOrde red By: Clemente Fragoso on 04-09-2024 Basophils (Bld) [#/Vol] 0.1 10*3/uL Normal 0.0-0.2 [facility] Comment on above: Result Comment: PERF ORMED BY: [place] [address] PATHOLOGIST MAGAZINE JOURNALIST ROBERT DAVIS M.D. Performed By: #### C BC, FE and TIBC, ARLENE #### [place] [address] [place] #### LAURA #### [facility] , Automated blood monocyte cou ntOrdered By: Clemente Fragoso on 04-09-2024 Monocytes (Bld) [#/Vol] 0.9 10*3/uL High 0.0-0.8 [facility] Comment on above: Performed By: #### C BC, FE and TIBC, ARLENE #### [facility] [address] [place] [address] [place] #### LAURA #### [facility] , Automated eosinophil %Ordere d By: Clemente Fragoso on 04-09-2024 Eosinophils/100 WBC (Bld) 2.1 % Normal . [facility] Comment on above: Performed By: #### C BC, FE and TIBC, ARLENE #### [facility] [address] [place] [address] [place] #### LAURA #### [facility] , Automated eosinophil countOr dered By: Clemente Fragoso on 04-09-2024 Eosinophils (Bld) [#/Vol] 0.2 10*3/uL Normal 0.0-0.45 [facility] Comment on above: Performed By: #### C BC, FE and TIBC, ARLENE #### [place] [address] [place] #### LAURA #### [facility] , Automated monocyte %Ordered By: Clemente Calixrob on 04-09-2024 Monocytes/100 WBC (Bld) 9.8 % Normal . [facility] Comment on above: Performed By: #### C BC, FE and TIBC, ARLENE #### [place] [address] [place] #### LAURA #### [facility] , Automated neutrophil %Ordere d By: Clemente Calixrob on 04-09-2024 Neutrophils/100 WBC (Bld) 77.9 % Normal . [facility] Comment on above: Performed By: #### C BC, FE and TIBC, ARLENE #### [place] [address] [place] #### LAURA #### [facility] , Complete Blood Count Auto Di ffon 04-09-2024 Mean Corpuscular HGB Conc 30.7 g/dL Low 32.5-35.6 [facility] Comment on above: Performed By: #### C BC, FE and TIBC, ARLENE #### [place] [address] [place] #### LAURA #### [facility] , NRBC% 0.1 /100{WBC} Normal 0-0.5 [facility] Comment on above: Performed By: #### C BC, FE and TIBC, ARLENE #### [place] [address] [place] #### LAURA #### [facility] , Erythrocyte distribution wid th [Ratio] by Automated countOrdered By: Clemente Fragoso on 04-09-2024 Erythrocyte distribution width (RBC) [Ratio] 19.8 % High 12.0-14.8 [facility] Comment on above: Performed By: #### C BC, FE and TIBC, ARLENE #### [address] #### LAURA #### [facility] , Erythrocytes [#/volume] in B lood by Automated countOrdered By: Clemente Fragoso on 04-09-2024 RBC (Bld) [#/Vol] 3.38 10*6/uL Low 3.90-5.60 [facility] Comment on above: Performed By: #### C BC, FE and TIBC, ARLENE #### [address] #### LAURA #### [facility] , Ferritin [Mass/volume] in Se rum or PlasmaOrdered By: Clemente Fragoso on 04-09-2024 Ferritin [Mass/Vol] 8.4 ng/mL Low 23.9-336.2 [facility] Comment on above: Result Comment: PERF ORMED BY: [place] [address] PATHOLOGIST MAGAZINE JOURNALIST ROBERT DAVIS M.D. Performed By: #### C BC, FE and TIBC, ARLENE #### [place] [address] [place] #### LAURA #### [facility] , Hematocrit [Volume Fraction] of Blood by Automated countOrdered By: Clemente Fragoso on 04-09-2024 Hematocrit (Bld) [Volume fraction] 25.9 % Low 38.8-50.0 [facility] Comment on above: Performed By: #### C BC, FE and TIBC, ARLENE #### [place] [address] [place] #### LAURA #### [facility] , Hemoglobin [Mass/volume] in BloodOrdered By: Clemente Fragoso on 04-09-2024 Hemoglobin (Bld) [Mass/Vol] 8.0 g/dL Low 13.0-17.0 [facility] Comment on above: Performed By: #### C BC, FE and TIBC, ARLENE #### [place] [address] [place] #### LAURA #### [facility] , Iron [Mass/volume] in Serum or PlasmaOrdered By: Clemente Fragoso on 04-09-2024 Iron [Mass/Vol] 16 ug/dL Low 50-212 [facility] Comment on above: Performed By: #### C BC, FE and TIBC, ARLENE #### [place] [address] [place] #### LAURA #### [facility] , Iron and TIBC Profileon % Iron Saturation 4.1 % Low 20-50 [facility] Comment on above: Performed By: #### C BC, FE and TIBC, ARLENE #### [place] [address] [place] #### LAURA #### [facility] , Total Iron Binding Capacity 392 ug/dL Normal 255-450 [facility] Comment on above: Performed By: #### C BC, FE and TIBC, ARLENE #### [place] [address] [place] #### LAURA #### [facility] , Iron binding capacity [Mass/ volume] in Serum or PlasmaOrdered By: Clemente Fragoso on 04-09-2024 Iron binding capacity [Mass/Vol] 392 ug/dL 255-450 [facility] Iron saturation [Mass Fracti on] in Serum or PlasmaOrdered By: Clemente Fragoso on 04-09-2024 Iron saturation [Mass fraction] 4.1 % Low 20-50 [facility] Leukocytes [#/volume] correc dorota for nucleated erythrocytes in Blood by Automated counOrdered By: Clemente Fragoso on 04-09-2024 WBC corrected for nucl RBC Auto (Bld) [#/Vol] 9.0 10*3/uL 4.1-10.5 [facility] Leukocytes [#/volume] in Blo od by Automated countOrdered By: Clemente Fragoso on 04-09-2024 WBC (Bld) [#/Vol] 9.0 10*3/uL Normal 4.1-10.5 [facility] Comment on above: Performed By: #### C BC, FE and TIBC, ARLENE #### [place] [address] [place] #### LAURA #### [facility] , Lymphocytes [#/volume] in Bl ood by Automated countOrdered By: Clemente Fragoso on 04-09-2024 Lymphocytes (Bld) [#/Vol] 0.8 10*3/uL Low 1.00-4.8 [facility] Comment on above: Performed By: #### C BC, FE and TIBC, ARLENE #### [facility] [address] [place] [address] [place] #### LAURA #### [facility] , Lymphocytes/100 leukocytes i n Blood by Automated countOrdered By: Clemente Fragoso on 04-09-2024 Lymphocytes/100 WBC (Bld) 9.0 % Normal . [facility] Comment on above: Performed By: #### C BC, FE and TIBC, ARLENE #### [place] [address] [place] #### LAURA #### [facility] , MCH [Entitic mass] by Automa dorota countOrdered By: Clemente Fragoso on 04-09-2024 MCH (RBC) [Entitic mass] 23.5 pg Low 27.5-35.2 [facility] Comment on above: Performed By: #### C BC, FE and TIBC, ARLENE #### [place] [address] [place] #### LAURA #### [facility] , MCHC Auto (RBC) [Mass/Vol]Or dered By: Clemente Fragoso on 04-09-2024 MCHC (RBC) [Mass/Vol] 30.7 g/dL Low 32.5-35.6 [facility] MCV [Entitic volume] by Auto mated countOrdered By: Clemente Fragoso on 04-09-2024 MCV (RBC) [Entitic vol] 76.6 fL Low 83.5-101 [facility] Comment on above: Performed By: #### C BC, FE and TIBC, ARLENE #### [place] [address] [place] #### LAURA #### [facility] , Neutrophils [#/volume] in Bl ood by Automated countOrdered By: Clemente Fragoso on 04-09-2024 Neutrophils (Bld) [#/Vol] 7.0 10*3/uL Normal 1.8-7.7 [facility] Comment on above: Performed By: #### C BC, FE and TIBC, ARLENE #### [place] [address] [place] #### LAURA #### [facility] , Nucleated erythrocytes [Pres ence] in Blood by Automated countOrdered By: Clemente Fragoso on 04-09-2024 Nucleated RBC Auto Ql (Bld) 0.1 /100{WBC} 0-0.5 [facility] Platelet mean volume [Entiti c volume] in Blood by Automated countOrdered By: Clemente Fragoso on 04-09-2024 Platelet mean volume (Bld) [Entitic vol] 8.8 fL Normal 6.6-10.1 [facility] Comment on above: Performed By: #### C BC, FE and TIBC, ARLENE #### [facility] [address] [place] [address] [place] #### LAURA #### [facility] , Platelets [#/volume] in Bloo d by Automated countOrdered By: Clemente Fragoso on 04-09-2024 Platelets (Bld) [#/Vol] 441 10*3/uL Normal 150-450 [facility] Comment on above: Performed By: #### C BC, FE and TIBC, ARLENE #### [facility] [address] [place] [address] [place] #### LAURA #### [facility] , Transferrin [Mass/volume] in Serum or PlasmaOrdered By: Clemente Fragoso on 04-09-2024 Transferrin [Mass/Vol] 280 mg/dL Normal 203-362 [facility] Comment on above: Performed By: #### C BC, FE and TIBC, ARLENE #### [facility] [address] [place] [address] [place] #### LAURA #### [facility] , PATRICK Antinuclear Antibodieson 03-13-2024 Antinuclear Abs, IFA Negative Normal . [facility] Comment on above: Result Comment: Nega tive <1:80 Borderline 1:80 Positive >1:80 ICAP nomenclature: [id number] For more information about Hep-2 cell patterns use ANApatterns.org, the official website for the International Consensus on Antinuclear Antibody (PATRICK) Patterns (ICAP). Performed at: - [facility] [id number] Aircraft Communicator: Fareed Santos PhD, Phone: [phone] Performed By: #### C BC, FE and TIBC, ARLENE #### [facility] [address] [place] [address] [place] #### LAURA #### [facility] , Alanine aminotransferase [En zymatic activity/volume] in Serum or PlasmaOrdered By: Clemente Fragoso on 03-13-2024 ALT [Catalytic activity/Vol] 57 U/L High 7-52 [facility] Comment on above: Performed By: #### C MP, ADDONUAPLUS, ESR, CBC, CK, ARLENE, CRP, FE and TIBC #### [facility] [address] [place] [address] [place] #### SSA, SUSANA,URINE, C3, SSB, KAPPA, CH50, SUSANA SERUM, UPE RAND, C4, SPE, PATRICK #### [facility] , Albumin [Mass/volume] in Ser um or PlasmaOrdered By: Clemente Fragoso on 03-13-2024 Albumin [Mass/Vol] 3.3 g/dL Normal 2.9-4.4 [facility] Comment on above: Performed By: #### C BC, FE and TIBC, ARLENE #### [place] [address] [place] #### LAURA #### [facility] , Albumin [Mass/volume] in Ser um or Plasma by Bromocresol green (BCG) dye binding methoOrdered By: Clemente Fragoso on 03-13-2024 Albumin BCG dye [Mass/Vol] 3.8 g/dL 3.5-5.7 [facility] Albumin/Protein.total in 24 hour Urine by ElectrophoresisOrdered By: Clemente Fragoso on 03-13-2024 Albumin Elph (24H U) [Mass fraction] 23.5 % . [facility] Alkaline phosphatase [Enzyma tic activity/volume] in Serum or PlasmaOrdered By: Clemente Fragoso on 03-13-2024 ALP [Catalytic activity/Vol] 139 U/L High 34-104 [facility] Comment on above: Performed By: #### C MP, ADDONUAPLUS, ESR, CBC, CK, ARLENE, CRP, FE and TIBC #### [facility] [address] [place] [address] [place] #### SSA, SUSANA,URINE, C3, SSB, KAPPA, CH50, SUSANA SERUM, UPE RAND, C4, SPE, PATRICK #### [facility] , Aspartate aminotransferase [ Enzymatic activity/volume] in Serum or PlasmaOrdered By: Clemente Fragoso on 03-13-2024 AST [Catalytic activity/Vol] 52 U/L High 13-39 [facility] Comment on above: Performed By: #### C MP, ADDONUAPLUS, ESR, CBC, CK, ARLENE, CRP, FE and TIBC #### [facility] [address] [place] [address] [place] #### SSA, SUSANA,URINE, C3, SSB, KAPPA, CH50, SUSANA SERUM, UPE RAND, C4, SPE, PATRICK #### [facility] , Automated basophil %Ordered By: Clemente Fraogso on 03-13-2024 Basophils/100 WBC (Bld) 0.8 % Normal . [facility] Comment on above: Performed By: #### C BC, FE and TIBC, ARLENE #### [facility] [address] [place] [address] [place] #### LAURA #### [facility] , Automated basophil countOrde red By: Clemente Fragoso on 03-13-2024 Basophils (Bld) [#/Vol] 0.1 10*3/uL Normal 0.0-0.2 [facility] Comment on above: Performed By: #### C BC, FE and TIBC, ARLENE #### [facility] [address] [place] [address] [place] #### LAURA #### [facility] , Automated blood monocyte cou ntOrdered By: Clemente Fragoso on 03-13-2024 Monocytes (Bld) [#/Vol] 0.5 10*3/uL Normal 0.0-0.8 [facility] Comment on above: Performed By: #### C BC, FE and TIBC, ARLENE #### [facility] [address] [place] [address] [place] #### LAURA #### [facility] , Automated eosinophil %Ordere d By: Clemente Fragoso on 03-13-2024 Eosinophils/100 WBC (Bld) 3.1 % Normal . [facility] Comment on above: Performed By: #### C BC, FE and TIBC, ARLENE #### [facility] [address] [place] [address] [place] #### LAURA #### [facility] , Automated eosinophil countOr dered By: Clemente Fragoso on 03-13-2024 Eosinophils (Bld) [#/Vol] 0.2 10*3/uL Normal 0.0-0.45 [facility] Comment on above: Performed By: #### C BC, FE and TIBC, ARLENE #### [place] [address] [place] #### LAURA #### [facility] , Automated monocyte %Ordered By: Clemente Fragoso on 03-13-2024 Monocytes/100 WBC (Bld) 6.4 % Normal . [facility] Comment on above: Performed By: #### C BC, FE and TIBC, ARLENE #### [place] [address] [place] #### LAURA #### [facility] , Automated neutrophil %Ordere d By: Clemente Fragoso on 03-13-2024 Neutrophils/100 WBC (Bld) 80.2 % Normal . [facility] Comment on above: Performed By: #### C BC, FE and TIBC, ARLENE #### [place] [address] [place] #### LAURA #### [facility] , Bacteria [Presence] in Urine by AutomatedOrdered By: Clemente Fragoso on 03-13-2024 Bacteria Auto Ql (U) None seen [HPF] None Seen [facility] Bilirubin Test strip Ql (U)O rdered By: Clemente Fragoso on 03-13-2024 Bilirubin Ql (U) Negative Negative [facility] Bilirubin.total [Mass/volume ] in Serum or PlasmaOrdered By: Clemente Fragoso on 03-13-2024 Bilirubin [Mass/Vol] 0.3 mg/dL Normal 0.3-1.0 [facility] Comment on above: Performed By: #### C MP, ADDONUAPLUS, ESR, CBC, CK, ARLENE, CRP, FE and TIBC #### [facility] [address] [place] [address] #### SSA, SUSANA,URINE, C3, SSB, KAPPA, CH50, SUSANA SERUM, UPE RAND, C4, SPE, PATRICK #### [facility] , C reactive protein [Mass/vol ume] in Serum or PlasmaOrdered By: Clemente Fragoso on 03-13-2024 CRP [Mass/Vol] 6.5 mg/dL High 0.0-0.5 [facility] C-Reactive Proteinon 024 C-Reactive Protein 6.5 mg/dL High 0.0-0.5 [facility] Comment on above: Result Comment: PERF ORMED BY: [place] [address] PATHOLOGIST MAGAZINE JOURNALIST ROBERT DAVIS M.D. Performed By: #### C MP, ADDONUAPLUS, ESR, CBC, CK, ARLENE, CRP, FE and TIBC #### [facility] [address] [place] [address] #### SSA, SUSANA,URINE, C3, SSB, KAPPA, CH50, SUSANA SERUM, UPE RAND, C4, SPE, PATRICK #### [facility] , Calcium [Mass/volume] in Ser um or PlasmaOrdered By: Clemente Fragoso on 03-13-2024 Calcium [Mass/Vol] 10.3 mg/dL Normal 8.6-10.3 [facility] Comment on above: Performed By: #### C MP, ADDONUAPLUS, ESR, CBC, CK, ARLENE, CRP, FE and TIBC #### [facility] [address] [place] [address] #### SSA, SUSANA,URINE, C3, SSB, KAPPA, CH50, SUSANA SERUM, UPE RAND, C4, SPE, PATRICK #### [facility] , Carbon dioxide, total [Moles /volume] in Serum or PlasmaOrdered By: Clemente Fragoso on 03-13-2024 CO2 [Moles/Vol] 29.9 mmol/L Normal 21.0-31.0 [facility] Comment on above: Performed By: #### C MP, ADDONUAPLUS, ESR, CBC, CK, ARLENE, CRP, FE and TIBC #### [facility] [address] [place] [address] #### SSA, SUSANA,URINE, C3, SSB, KAPPA, CH50, SUSANA SERUM, UPE RAND, C4, SPE, PATRICK #### [facility] , Chloride [Moles/volume] in S kaleigh or PlasmaOrdered By: Clemente Fragoso on 03-13-2024 Chloride [Moles/Vol] 101 mmol/L Normal 98-107 [facility] Comment on above: Performed By: #### C MP, ADDONUAPLUS, ESR, CBC, CK, ARLENE, CRP, FE and TIBC #### [facility] [address] [place] [address] [place] #### SSA, SUSANA,URINE, C3, SSB, KAPPA, CH50, SUSANA SERUM, UPE RAND, C4, SPE, PATRICK #### [facility] , Color of Urine by AutoOrdere d By: Clemente Fragoso on 03-13-2024 Color (U) Light-yellow Normal Yellow [facility] Comment on above: Order Comment: Name Collection Type:: Clean-Voided Midstream Performed By: #### C MP, ADDONUAPLUS, ESR, CBC, CK, ARLENE, CRP, FE and TIBC #### [facility] [address] [place] [address] #### SSA, SUSANA,URINE, C3, SSB, KAPPA, CH50, SUSANA SERUM, UPE RAND, C4, SPE, PATRICK #### [facility] , Complement C3on 03-13-2024 Complement C3 172 mg/dL High 82-167 [facility] Comment on above: Result Comment: Perf ormed at: - [facility] [address] [id number] Aircraft Communicator: Fareed Santos PhD, Phone: [phone] Performed By: #### C BC, FE and TIBC, ARLENE #### [place] [address] [place] #### LAURA #### [facility] , Complement C4on 03-13-2024 Complement C4 32 mg/dL Normal 12-38 [facility] Comment on above: Performed By: #### C BC, FE and TIBC, ARLENE #### [place] [address] [place] #### LAURA #### [facility] , Complement Total (CH50)on Complement Total (CH50) >60 Normal >41 [facility] Comment on above: Result Comment: Age Male Female 1 - 30 days Not Estab. Not Estab. 31 days - 6 months >32 >20 7 months - 17 years >39 >39 >17 years >41 >41 NOTE: The adult ( >17 years ) reference interval range is used to flag abnormals on this report. If the patient is 17 years old or younger, use the table above to determine out of range values. Performed at: - [facility] [id number] Aircraft Communicator: Fareed Santos PhD, Phone: [phone] PERFORMED BY: [place] [address] PATHOLOGIST MAGAZINE JOURNALIST ROBERT DAVIS M.D. Performed By: #### C BC, FE and TIBC, ARLENE #### [place] [address] [place] #### LAURA #### [facility] , Complete Blood Count Auto Di ffon 03-13-2024 Mean Corpuscular HGB Conc 31.9 g/dL Low 32.5-35.6 [facility] Comment on above: Performed By: #### C BC, FE and TIBC, ARLENE #### [place] [address] [place] #### LAURA #### [facility] , NRBC% 0.1 /100{WBC} Normal 0-0.5 [facility] Comment on above: Performed By: #### C BC, FE and TIBC, ARLENE #### [address] #### LAURA #### [facility] , Comprehensive Metabolic Pane angel 03-13-2024 Albumin [Mass/Vol] 3.8 g/dL Normal 3.5-5.7 [facility] Comment on above: Performed By: #### C MP, ADDONUAPLUS, ESR, CBC, CK, ARLENE, CRP, FE and TIBC #### [address] #### SSA, SUSANA,URINE, C3, SSB, KAPPA, CH50, SUSANA SERUM, UPE RAND, C4, SPE, PATRICK #### [facility] , GFR/1.73 sq M.predicted MDRD (S/P/Bld) [Vol rate/Area] mL/min/{1.73_m2} Normal [facility] Comment on above: Performed By: #### C MP, ADDONUAPLUS, ESR, CBC, CK, ARLENE, CRP, FE and TIBC #### [address] #### SSA, SUSANA,URINE, C3, SSB, KAPPA, CH50, SUSANA SERUM, UPE RAND, C4, SPE, PATRICK #### [facility] , Creatine kinase [Enzymatic a ctivity/volume] in Serum or PlasmaOrdered By: Clemente Fragoso on 03-13-2024 CK [Catalytic activity/Vol] 200 U/L Normal 30-223 [facility] Comment on above: Result Comment: PERF ORMED BY: [place] [address] PATHOLOGIST MAGAZINE JOURNALIST ROBERT DAVIS M.D. Performed By: #### C MP, ADDONUAPLUS, ESR, CBC, CK, ARLENE, CRP, FE and TIBC #### [address] [place] [address] [place] #### SSA, SUSANA,URINE, C3, SSB, KAPPA, CH50, SUSANA SERUM, UPE RAND, C4, SPE, PATRICK #### [facility] , Creatinine [Mass/volume] in Serum or PlasmaOrdered By: Clemente Fragoso on 03-13-2024 Creatinine [Mass/Vol] 0.81 mg/dL Normal 0.70-1.30 [facility] Comment on above: Performed By: #### C MP, ADDONUAPLUS, ESR, CBC, CK, ARLENE, CRP, FE and TIBC #### [facility] [address] [place] [address] #### SSA, SUSANA,URINE, C3, SSB, KAPPA, CH50, SUSANA SERUM, UPE RAND, C4, SPE, PATRICK #### [facility] , Dipstick and Microscopicon 1 Bacteria,Urine None Seen Normal None Seen [facility] Comment on above: Order Comment: Name Collection Type:: Clean-Voided Midstream Performed By: #### C MP, ADDONUAPLUS, ESR, CBC, CK, ARLENE, CRP, FE and TIBC #### [address] #### SSA, SUSANA,URINE, C3, SSB, KAPPA, CH50, SUSANA SERUM, UPE RAND, C4, SPE, PATRICK #### [facility] , Bilirubin,Urine Negative Normal Negative [facility] Comment on above: Order Comment: Name Collection Type:: Clean-Voided Midstream Performed By: #### C MP, ADDONUAPLUS, ESR, CBC, CK, ARLENE, CRP, FE and TIBC #### [facility] [address] [place] [address] #### SSA, SUSANA,URINE, C3, SSB, KAPPA, CH50, SUSANA SERUM, UPE RAND, C4, SPE, PATRICK #### [facility] , Glucose Ql (U) Normal Normal Normal [facility] Comment on above: Order Comment: Name Collection Type:: Clean-Voided Midstream Performed By: #### C MP, ADDONUAPLUS, ESR, CBC, CK, ARLENE, CRP, FE and TIBC #### [address] #### SSA, SUSANA,URINE, C3, SSB, KAPPA, CH50, SUSANA SERUM, UPE RAND, C4, SPE, PATRICK #### [facility] , Hyaline Casts,Urine None Normal 0-8 [facility] Comment on above: Order Comment: Name Collection Type:: Clean-Voided Midstream Performed By: #### C MP, ADDONUAPLUS, ESR, CBC, CK, ARLENE, CRP, FE and TIBC #### [address] #### SSA, SUSANA,URINE, C3, SSB, KAPPA, CH50, SUSANA SERUM, UPE RAND, C4, SPE, PATRICK #### [facility] , Mucus,Urine Rare Normal [facility] Comment on above: Order Comment: Name Collection Type:: Clean-Voided Midstream Result Comment: PERF ORMED BY: [place] [address] PATHOLOGIST MAGAZINE JOURNALIST ROBERT DAVIS M.D. Performed By: #### C MP, ADDONUAPLUS, ESR, CBC, CK, ARLENE, CRP, FE and TIBC #### [address] #### SSA, SUSANA,URINE, C3, SSB, KAPPA, CH50, SUSANA SERUM, UPE RAND, C4, SPE, PATRICK #### [facility] , Nitrite,Urine Negative Normal Negative [facility] Comment on above: Order Comment: Name Collection Type:: Clean-Voided Midstream Performed By: #### C MP, ADDONUAPLUS, ESR, CBC, CK, ARLENE, CRP, FE and TIBC #### [address] #### SSA, SUSANA,URINE, C3, SSB, KAPPA, CH50, SUSANA SERUM, UPE RAND, C4, SPE, PATRICK #### [facility] , Occult Blood,Urine Negative Normal Negative [facility] Comment on above: Order Comment: Name Collection Type:: Clean-Voided Midstream Performed By: #### C MP, ADDONUAPLUS, ESR, CBC, CK, ARLENE, CRP, FE and TIBC #### [address] #### SSA, SUSANA,URINE, C3, SSB, KAPPA, CH50, SUSANA SERUM, UPE RAND, C4, SPE, PATRICK #### [facility] , Protein,Urine Negative Normal Negative [facility] Comment on above: Order Comment: Name Collection Type:: Clean-Voided Midstream Performed By: #### C MP, ADDONUAPLUS, ESR, CBC, CK, ARLENE, CRP, FE and TIBC #### [address] #### SSA, SUSANA,URINE, C3, SSB, KAPPA, CH50, SUSANA SERUM, UPE RAND, C4, SPE, PATRICK #### [facility] , RBC,Urine None Seen Normal 0-4 [facility] Comment on above: Order Comment: Name Collection Type:: Clean-Voided Midstream Performed By: #### C MP, ADDONUAPLUS, ESR, CBC, CK, ARLENE, CRP, FE and TIBC #### [address] #### SSA, SUSANA,URINE, C3, SSB, KAPPA, CH50, SUSANA SERUM, UPE RAND, C4, SPE, PATRICK #### [facility] , Specificy [place],Urine 1.015 Normal 1.001-1.030 [facility] Comment on above: Order Comment: Name Collection Type:: Clean-Voided Midstream Performed By: #### C MP, ADDONUAPLUS, ESR, CBC, CK, ARLENE, CRP, FE and TIBC #### [place] [address] [place] #### SSA, SUSANA,URINE, C3, SSB, KAPPA, CH50, SUSANA SERUM, UPE RAND, C4, SPE, PATRICK #### [facility] , Urobilinogen,Urine Normal Normal Normal [facility] Comment on above: Order Comment: Name Collection Type:: Clean-Voided Midstream Performed By: #### C MP, ADDONUAPLUS, ESR, CBC, CK, ARLENE, CRP, FE and TIBC #### [address] #### SSA, SUSANA,URINE, C3, SSB, KAPPA, CH50, SUSANA SERUM, UPE RAND, C4, SPE, PATRICK #### [facility] , WBC,Urine 1-2 Normal 0-4 [facility] Comment on above: Order Comment: Name Collection Type:: Clean-Voided Midstream Performed By: #### C MP, ADDONUAPLUS, ESR, CBC, CK, ARLENE, CRP, FE and TIBC #### [address] #### SSA, SUSANA,URINE, C3, SSB, KAPPA, CH50, SUSANA SERUM, UPE RAND, C4, SPE, PATRICK #### [facility] , Epithelial cells.squamous [# /area] in Urine sediment by Automated countOrdered By: Clemente rFagoso on 03-13-2024 Epithelial cells.squamous Auto (Urine sed) [#/Area] N/A [facility] Erythrocyte Sedimentation Ra yuri 03-13-2024 ESR (Bld) [Velocity] 73 mm/h High 0-19 [facility] Comment on above: Result Comment: PERF ORMED BY: [place] [address] PATHOLOGIST MAGAZINE JOURNALIST ROBERT DAVIS M.D. Performed By: #### C BC, FE and TIBC, ARLENE #### [address] #### LAURA #### [facility] , Erythrocyte distribution wid th [Ratio] by Automated countOrdered By: Clemente Fragoso on 03-13-2024 Erythrocyte distribution width (RBC) [Ratio] 18.9 % High 12.0-14.8 [facility] Comment on above: Performed By: #### C BC, FE and TIBC, ARLENE #### [facility] [address] [place] [address] [place] #### LAURA #### [facility] , Erythrocyte sedimentation ra te by Photometric methodOrdered By: Clemente Fragoso on 03-13-2024 ESR Photometric method (Bld) [Velocity] 73 mm/hr High 0-19 [facility] Erythrocytes [#/area] in Uri ne sediment by Automated countOrdered By: Clemente Fragoso on 03-13-2024 RBC Auto (Urine sed) [#/Area] None seen [HPF] 0-4 [facility] Erythrocytes [#/volume] in B lood by Automated countOrdered By: Clemente rFagoso on 03-13-2024 RBC (Bld) [#/Vol] 3.18 10*6/uL Low 3.90-5.60 [facility] Comment on above: Performed By: #### C BC, FE and TIBC, ARLENE #### [place] [address] [place] #### LAURA #### [facility] , Ferritin [Mass/volume] in Se rum or PlasmaOrdered By: Clemente Fragoso on 03-13-2024 Ferritin [Mass/Vol] 38.6 ng/mL Normal 23.9-336.2 [facility] Comment on above: Performed By: #### C MP, ADDONUAPLUS, ESR, CBC, CK, ARLENE, CRP, FE and TIBC #### [facility] [address] [place] [address] [place] #### SSA, SUSANA,URINE, C3, SSB, KAPPA, CH50, SUSANA SERUM, UPE RAND, C4, SPE, PATRICK #### [facility] , Free K+L LT Chains, Qn, Son 03-13-2024 Free [place] Light Chains, S 71.1 mg/L High 3.3-19.4 [facility] Comment on above: Performed By: #### C BC, FE and TIBC, ARLENE #### [place] [address] [place] #### LAURA #### [facility] , Free Lambda Light Chains, S 59.2 mg/L High 5.7-26.3 [facility] Comment on above: Performed By: #### C BC, FE and TIBC, ARLENE #### [place] [address] [place] #### LAURA #### [facility] , Friend[place]/Lambda Ratio, S 1.20 Normal 0.26-1.65 [facility] Comment on above: Result Comment: Perf ormed at: - [facility] [address] [id number] Aircraft Communicator: Fareed Santos PhD, Phone: [phone] PERFORMED BY: [place] [address] PATHOLOGIST MAGAZINE JOURNALIST ROBERT DAVIS M.D. Performed By: #### C BC, FE and TIBC, ARLENE #### [address] #### LAURA #### [facility] , Gamma globulin/Protein.total in 24 hour Urine by ElectrophoresisOrdered By: Clemente Fragoso on 03-13-2024 Gamma globulin Elph (24H U) [Mass fraction] 31.1 % . [facility] Glucose [Mass/volume] in Ser um or PlasmaOrdered By: Clemente Fragoso on 03-13-2024 Glucose [Mass/Vol] 123 mg/dL High 70-100 [facility] Comment on above: ADA recommended refe rence rangeRandom Glucose Reference Range is dependent on time and content of last meal. Glucose of more than 200 mg/dL in a nonstressed, ambulatory subject supports the diagnosis of Diabetes Mellitus. Result Comment: [place] om Glucose Reference Range is dependent on time and content of last meal. Glucose of more than 200 mg/dL in a nonstressed, ambulatory subject supports the diagnosis of Diabetes Mellitus. ADA recommended reference range Performed By: #### C MP, ADDONUAPLUS, ESR, CBC, CK, ARLENE, CRP, FE and TIBC #### [facility] [address] [place] [address] [place] #### SSA, SUSANA,URINE, C3, SSB, KAPPA, CH50, SUSANA SERUM, UPE RAND, C4, SPE, PATRICK #### [facility] , Glucose [Mass/volume] in Uri ne by Test stripOrdered By: Clemente Fragoso on 03-13-2024 Glucose Test strip (U) [Mass/Vol] Normal mg/dL Normal [facility] Hematocrit [Volume Fraction] of Blood by Automated countOrdered By: Clemente Fragoso on 03-13-2024 Hematocrit (Bld) [Volume fraction] 26.1 % Low 38.8-50.0 [facility] Comment on above: Performed By: #### C BC, FE and TIBC, ARLENE #### [place] [address] [place] #### LAURA #### [facility] , Hemoglobin Test strip Ql (U) Ordered By: Clemente Fragoso on 03-13-2024 Hemoglobin Ql (U) Negative Negative [facility] Hemoglobin [Mass/volume] in BloodOrdered By: Clemente Fragoso on 03-13-2024 Hemoglobin (Bld) [Mass/Vol] 8.3 g/dL Low 13.0-17.0 [facility] Comment on above: Performed By: #### C BC, FE and TIBC, ARLENE #### [place] [address] [place] #### LAURA #### [facility] , Hyaline casts [#/area] in Ur ine sediment by Automated countOrdered By: Clemente Fragoso on 03-13-2024 Hyaline casts Auto (Urine sed) [#/Area] None [LPF] 0-8 [facility] IgA [Mass/volume] in Serum o r PlasmaOrdered By: Clemente Fragoso on 03-13-2024 IgA [Mass/Vol] 551 mg/dL High 61-437 [facility] IgG [Mass/volume] in Serum o r PlasmaOrdered By: Clemente Fragoso on 03-13-2024 IgG [Mass/Vol] 1286 mg/dL 603-1613 [facility] IgM [Mass/volume] in Serum o r PlasmaOrdered By: Clemente Fragoso on 03-13-2024 IgM [Mass/Vol] 191 mg/dL High 15-143 [facility] Comment on above: Performed at: [facility] [address] Director: Fareed Santos PhD, Phone: [phone] Immunofixation for UrineOrde red By: Clemente Fragoso on 03-13-2024 Interpretation Immunofixation (U) [Interp] Comment . [facility] Comment on above: No monoclonality det ected.Performed at: [facility] [address] [id number] Director: Fareed Santos PhD, Phone: [phone] Immunofixation, (SUSANA), Urine on 03-13-2024 Immunofixation, (SUSANA), Urine Comment Normal . [facility] Comment on above: Result Comment: No m onoclonality detected. Performed at: [facility] [address] [id number] Aircraft Communicator: Fareed Santos PhD, Phone: [phone] Performed By: #### C BC, FE and TIBC, ARLENE #### [address] #### LAURA #### [facility] , Immunofixation,Serumon 03-13 Immunofixation, Serum Comment: Normal . [facility] Comment on above: Result Comment: Pres ence of monoclonal protein is unclear at this time. Suggest repeat in 3 to 6 months if clinically indicated. Performed By: #### C BC, FE and TIBC, ARLENE #### [facility] [address] [place] [address] [place] #### LAURA #### [facility] , Immunoglobulin A, Serum 551 mg/dL High 61-437 [facility] Comment on above: Performed By: #### C BC, FE and TIBC, ARLENE #### [facility] [address] [place] [address] [place] #### LAURA #### [facility] , Immunoglobulin G 1286 mg/dL Normal 603-1613 [facility] Comment on above: Performed By: #### C BC, FE and TIBC, ARLENE #### [facility] [address] [place] [address] [place] #### LAURA #### [facility] , Immunoglobulin M, Serum 191 mg/dL High 15-143 [facility] Comment on above: Result Comment: Perf ormed at: [facility] [address] [place], [place] [id number] Aircraft Communicator: Fareed Santos PhD, Phone: [phone] Performed By: #### C BC, FE and TIBC, ARLENE #### [facility] [address] [place] [address] [place] #### LAURA #### [facility] , Immunoglobulin light chains. kappa.free [Mass/volume] in SerumOrdered By: Clemente Fragoso on 03-13-2024 Immunoglobulin light chains.kappa.free (S) [Mass/Vol] 71.1 mg/L High 3.3-19.4 [facility] Immunoglobulin light chains. kappa.free/Immunoglobulin light chains.lambda.free [MassOrdered By: Clemente Fragoso on 03-13-2024 Immunoglobulin light chains.kappa.free/Immunog lobulin light chains.lambda.free (S) [Mass ratio] 1.20 0.26-1.65 [facility] Comment on above: Performed at: [facility] [id number] [place], [place] [id number] Director: Fareed Santos PhD, Phone: [phone] Immunoglobulin light chains. lambda.free [Mass/volume] in Serum or PlasmaOrdered By: Clemente Fragoso on 03-13-2024 Immunoglobulin light chains.lambda.free [Mass/Vol] 59.2 mg/L High 5.7-26.3 [facility] Iron [Mass/volume] in Serum or PlasmaOrdered By: Clemente Fragoso on 03-13-2024 Iron [Mass/Vol] 20 ug/dL Low 50-212 [facility] Comment on above: Performed By: #### C MP, ADDONUAPLUS, ESR, CBC, CK, ARLENE, CRP, FE and TIBC #### [facility] [address] #### SSA, SUSANA,URINE, C3, SSB, KAPPA, CH50, SUSANA SERUM, UPE RAND, C4, SPE, PATRICK #### [facility] , Iron and TIBC Profileon 10-0 % Iron Saturation 5.4 % Low 20-50 [facility] Comment on above: Performed By: #### C MP, ADDONUAPLUS, ESR, CBC, CK, ARLENE, CRP, FE and TIBC #### [facility] [address] [place] [address] [place] #### SSA, SUSANA,URINE, C3, SSB, KAPPA, CH50, SUSANA SERUM, UPE RAND, C4, SPE, PATRICK #### [facility] , Total Iron Binding Capacity 370 ug/dL Normal 255-450 [facility] Comment on above: Performed By: #### C MP, ADDONUAPLUS, ESR, CBC, CK, ARLENE, CRP, FE and TIBC #### [facility] [address] [place] [address] [place] #### SSA, SUSANA,URINE, C3, SSB, KAPPA, CH50, SUSANA SERUM, UPE RAND, C4, SPE, PATRICK #### [facility] , Iron binding capacity [Mass/ volume] in Serum or PlasmaOrdered By: Clemente Fragoso on 03-13-2024 Iron binding capacity [Mass/Vol] 370 ug/dL 255-450 [facility] Iron saturation [Mass Fracti on] in Serum or PlasmaOrdered By: Clemente Fragoso on 03-13-2024 Iron saturation [Mass fraction] 5.4 % Low 20-50 [facility] Ketones [Presence] in Urine by Test stripOrdered By: Clemente Fragoso on 03-13-2024 Ketones Ql (U) Negative Normal Negative [facility] Comment on above: Order Comment: Name Collection Type:: Clean-Voided Midstream Performed By: #### C MP, ADDONUAPLUS, ESR, CBC, CK, ARLENE, CRP, FE and TIBC #### [facility] [address] [place] [address] #### SSA, SUSANA,URINE, C3, SSB, KAPPA, CH50, SUSANA SERUM, UPE RAND, C4, SPE, PATRICK #### [facility] , Leukocyte esterase [Presence ] in Urine by Test stripOrdered By: Clemente Fragoso on 03-13-2024 Leukocyte esterase Test strip Ql (U) Negative Normal Negative [facility] Comment on above: Order Comment: Name Collection Type:: Clean-Voided Midstream Performed By: #### C MP, ADDONUAPLUS, ESR, CBC, CK, ARLENE, CRP, FE and TIBC #### [facility] [address] [place] [address] #### SSA, SUSANA,URINE, C3, SSB, KAPPA, CH50, SUSANA SERUM, UPE RAND, C4, SPE, PATRICK #### [facility] , Leukocytes [#/area] in Urine sediment by Automated countOrdered By: Clemente Fragoso on 03-13-2024 WBC Auto (Urine sed) [#/Area] 1-2 [HPF] 0-4 [facility] Leukocytes [#/volume] correc dorota for nucleated erythrocytes in Blood by Automated counOrdered By: Clemente Fragoso on 03-13-2024 WBC corrected for nucl RBC Auto (Bld) [#/Vol] 8.0 10*3/uL 4.1-10.5 [facility] Leukocytes [#/volume] in Blo od by Automated countOrdered By: Clemente Fragoso on 03-13-2024 WBC (Bld) [#/Vol] 8.0 10*3/uL Normal 4.1-10.5 [facility] Comment on above: Performed By: #### C BC, FE and TIBC, ARLENE #### [place] [address] [place] #### LAURA #### [facility] , Lymphocytes [#/volume] in Bl ood by Automated countOrdered By: Clemente Fragoso on 03-13-2024 Lymphocytes (Bld) [#/Vol] 0.8 10*3/uL Low 1.00-4.8 [facility] Comment on above: Performed By: #### C BC, FE and TIBC, ARLENE #### [place] [address] [place] #### LAURA #### [facility] , Lymphocytes/100 leukocytes i n Blood by Automated countOrdered By: Clemente Fragoso on 03-13-2024 Lymphocytes/100 WBC (Bld) 9.5 % Normal . [facility] Comment on above: Performed By: #### C BC, FE and TIBC, ARLENE #### [place] [address] [place] #### LAURA #### [facility] , MCH [Entitic mass] by Automa dorota countOrdered By: Clemente Fragoso on 03-13-2024 MCH (RBC) [Entitic mass] 26.2 pg Low 27.5-35.2 [facility] Comment on above: Performed By: #### C BC, FE and TIBC, ARLENE #### [place] [address] [place] #### LAURA #### [facility] , MCHC Auto (RBC) [Mass/Vol]Or dered By: Clemente Fragoso on 03-13-2024 MCHC (RBC) [Mass/Vol] 31.9 g/dL Low 32.5-35.6 [facility] MCV [Entitic volume] by Auto mated countOrdered By: Clemente Fragoso on 03-13-2024 MCV (RBC) [Entitic vol] 82.1 fL Low 83.5-101 [facility] Comment on above: Performed By: #### C BC, FE and TIBC, ARLENE #### [facility] [address] [place] [address] [place] #### LAURA #### [facility] , Mucus [Presence] in Urine by AutomatedOrdered By: Clemente Calixrob on 03-13-2024 Mucus Auto Ql (U) Rare [LPF] [facility] Neutrophils [#/volume] in Bl ood by Automated countOrdered By: Clemente Calixrob on 03-13-2024 Neutrophils (Bld) [#/Vol] 6.4 10*3/uL Normal 1.8-7.7 [facility] Comment on above: Performed By: #### C BC, FE and TIBC, ARLENE #### [facility] [address] [place] [address] [place] #### LAURA #### [facility] , Nitrite Test strip Ql (U)Ord ered By: Clemente Calixrob on 03-13-2024 Nitrite Ql (U) Negative Negative [facility] No Panel InformationOrdered By: Clemente Calixrob on 03-13-2024 Estimated GFR (CKD-EPI) > 60.0 mL/Min [facility] Creatinine Clearance (Chem N/A [facility] Protein Electrophoresis M-Trey Not observed g/dL Not Observed [facility] Protein Electrophoresis Note Comment . [facility] Comment on above: Protein electrophore sis scan will follow via computer,mail, or booster pump oiler delivery.Performed at: - [facility] [id number] Director: Fareed Santos PhD, Phone: [phone] Serum Immunofixation Comment: . [facility] Comment on above: Presence of monoclon al protein is unclear at this time. Suggestrepeat in 3 to 6 months if clinically indicated. Total Complement (CH50) >60 U/mL >41 [facility] Comment on above: Age Male Female 1 - 30 days Not Estab. Not Estab. 31 days - 6 months >32 >20 7 months - 17 years >39 >39 >17 years >41 >41 NOTE: The adult ( >17 years ) reference interval range is used to flag abnormals on this report. If the patient is 17 years old or younger, use the table above to determine out of range values.Performed at: - [facility] [id number] Director: Fareed Santos PhD, Phone: [phone] Urine Random Prot Electrophor Note Comment . [facility] Comment on above: Protein electrophore sis scan will follow via computer,mail, or booster pump oiler delivery. Nucleated erythrocytes [Pres ence] in Blood by Automated countOrdered By: Clemente Fragoso on 03-13-2024 Nucleated RBC Auto Ql (Bld) 0.1 /100{WBC} 0-0.5 [facility] Platelet mean volume [Entiti c volume] in Blood by Automated countOrdered By: Clemente Fragoso on 03-13-2024 Platelet mean volume (Bld) [Entitic vol] 9.1 fL Normal 6.6-10.1 [facility] Comment on above: Performed By: #### C BC, FE and TIBC, ARLENE #### [facility] [address] [place] [address] [place] #### LAURA #### [facility] , Platelets [#/volume] in Bloo d by Automated countOrdered By: Clemente Fragoso on 03-13-2024 Platelets (Bld) [#/Vol] 347 10*3/uL Normal 150-450 [facility] Comment on above: Performed By: #### C BC, FE and TIBC, ARLENE #### [facility] [address] [place] [address] [place] #### LAURA #### [facility] , Potassium [Moles/volume] in Serum or PlasmaOrdered By: Clemente Fragoso on 03-13-2024 Potassium [Moles/Vol] 4.2 mmol/L Normal 3.5-5.1 [facility] Comment on above: Performed By: #### C MP, ADDONUAPLUS, ESR, CBC, CK, ARLENE, CRP, FE and TIBC #### [place] [address] [place] #### SSA, SUSANA,URINE, C3, SSB, KAPPA, CH50, SUSANA SERUM, UPE RAND, C4, SPE, PATRICK #### [facility] , Protein Electro, Random Urin fletcher 03-13-2024 Albumin, Urine 23.5 % Normal . [facility] Comment on above: Performed By: #### C BC, FE and TIBC, ARLENE #### [place] [address] [place] #### LAURA #### [facility] , Vmqry-3-Jmprftcr, Urine 2.4 % Normal . [facility] Comment on above: Performed By: #### C BC, FE and TIBC, ARLENE #### [place] [address] [place] #### LAURA #### [facility] , Mmjej-8-Mzlwnqop, Urine 13.7 % Normal . [facility] Comment on above: Performed By: #### C BC, FE and TIBC, ARLENE #### [place] [address] [place] #### LAURA #### [facility] , Beta Globulin, Urine 29.3 % Normal . [facility] Comment on above: Performed By: #### C BC, FE and TIBC, ARLENE #### [place] [address] [place] #### LAURA #### [facility] , Gamma Globulin, Urine 31.1 % Normal . [facility] Comment on above: Performed By: #### C BC, FE and TIBC, ARLENE #### [place] [address] [place] #### LAURA #### [facility] , M-Trey % Not Observed Normal Not Observed [facility] Comment on above: Performed By: #### C BC, FE and TIBC, ARLENE #### [place] [address] [place] #### LAURA #### [facility] , Please Note: Comment Normal . [facility] Comment on above: Result Comment: Prot ein electrophoresis scan will follow via computer, mail, or booster pump oiler delivery. PERFORMED BY: [place] [address] PATHOLOGIST MAGAZINE JOURNALIST ROBERT DAVIS M.D. Performed By: #### C BC, FE and TIBC, ARLENE #### [place] [address] [place] #### LAURA #### [facility] , Protein Electrophoresis, Ser umon 03-13-2024 Zcphl-7-Ftwiuvdu 0.5 g/dL High 0.0-0.4 [facility] Comment on above: Performed By: #### C BC, FE and TIBC, ARLENE #### [place] [address] [place] #### LAURA #### [facility] , Rlorb-3-Gxaumkjd 1.1 g/dL High 0.4-1.0 [facility] Comment on above: Performed By: #### C BC, FE and TIBC, ARLENE #### [place] [address] [place] #### LAURA #### [facility] , Beta Globulin 1.2 g/dL Normal 0.7-1.3 [facility] Comment on above: Performed By: #### C BC, FE and TIBC, ARLENE #### [place] [address] [place] #### LAURA #### [facility] , Gamma Globulin 1.4 g/dL Normal 0.4-1.8 [facility] Comment on above: Performed By: #### C BC, FE and TIBC, ARLENE #### [address] [place] [address] [place] #### LAURA #### [facility] , M-Trey Not Observed Normal Not Observed [facility] Comment on above: Performed By: #### C BC, FE and TIBC, ARLENE #### [address] #### LAURA #### [facility] , SPE-Note Comment Normal . [facility] Comment on above: Result Comment: Prot ein electrophoresis scan will follow via computer, mail, or booster pump oiler delivery. Performed at: [facility] [address] [id number] Aircraft Communicator: Fareed Santos PhD, Phone: [phone] Performed By: #### C BC, FE and TIBC, ARLENE #### [place] [address] [place] #### LAURA #### [facility] , Protein Test strip (U) [Mass /Vol]Ordered By: Clemente Fragoso on 03-13-2024 Protein (U) [Mass/Vol] Negative Negative [facility] Protein [Mass/volume] in Ser um or PlasmaOrdered By: Clemente Fragoso on 03-13-2024 Protein [Mass/Vol] 7.2 g/dL Normal 6.4-8.9 [facility] Comment on above: Performed By: #### C MP, ADDONUAPLUS, ESR, CBC, CK, ARLENE, CRP, FE and TIBC #### [place] [address] [place] #### SSA, SUSANA,URINE, C3, SSB, KAPPA, CH50, SUSANA SERUM, UPE RAND, C4, SPE, PATRICK #### [facility] , Protein [Mass/Vol] 7.4 g/dL Normal 6.0-8.5 [facility] Comment on above: Performed By: #### C BC, FE and TIBC, ARLENE #### [place] [address] [place] #### LAURA #### [facility] , Protein [Mass/volume] in Uri neOrdered By: Clemente Fragoso on 03-13-2024 Protein (U) [Mass/Vol] 12.6 mg/dL Normal Not Estab. [facility] Comment on above: Performed By: #### C BC, FE and TIBC, ARLENE #### [facility] [address] [place] [address] [place] #### LAURA #### [facility] , Protein.monoclonal/Protein.t otal in 24 hour Urine by ElectrophoresisOrdered By: Clemente Fragoso on 03-13-2024 Protein.monoclonal Elph (24H U) [Mass fraction] Not observed % Not Observed [facility] SS-A/Ro Sjogrens Antibodyon 03-13-2024 SS-A/Ro Sjogrens Antibody <0.2 Normal 0.0-0.9 [facility] Comment on above: Performed By: #### C BC, FE and TIBC, ARLENE #### [place] [address] [place] #### LAURA #### [facility] , SS-B/La Sjogrens Antibodyon 03-13-2024 SS-B/La Sjogrens Antibody <0.2 Normal 0.0-0.9 [facility] Comment on above: Result Comment: Perf ormed at: - [facility] [address] [id number] Aircraft Communicator: Fareed Santos PhD, Phone: [phone] Performed By: #### C BC, FE and TIBC, ARLENE #### [facility] [address] [place] [address] [place] #### LAURA #### [facility] , Serum Sjogrens syndrome-A ex tractable nuclear antibody assay (units/volume)Ordered By: Clemente Fragoso on 03-13-2024 Sjogrens syndrome-A extractable nuclear Ab Qn (S) <0.2 AI 0.0-0.9 [facility] Serum Sjogrens syndrome-B ex tractable nuclear antibody assay (units/volume)Ordered By: Clemente Fragoso on 03-13-2024 Sjogrens syndrome-B extractable nuclear Ab Qn (S) <0.2 AI 0.0-0.9 [facility] Comment on above: Performed at: - L [address] [id number] Director: Fareed Santos PhD, Phone: [phone] Serum globulin measurement ( mass/volume)Ordered By: Clemente Fragoso on 03-13-2024 Globulin (S) [Mass/Vol] 4.1 g/dL High 2.2-3.9 [facility] Comment on above: Performed By: #### C BC, FE and TIBC, ARLENE #### [facility] [address] #### LAURA #### [facility] , Serum globulin measurement b y calculation (mass/volume)Ordered By: Clemente Fragoso on 03-13-2024 Globulin (S) [Mass/Vol] 3.4 g/dL Normal [facility] Comment on above: Performed By: #### C MP, ADDONUAPLUS, ESR, CBC, CK, ARLENE, CRP, FE and TIBC #### [facility] [address] [place] [address] [place] #### SSA, SUSANA,URINE, C3, SSB, KAPPA, CH50, SUSANA SERUM, UPE RAND, C4, SPE, PATRICK #### [facility] , Serum homogeneous pattern an tinuclear antibody (PATRICK) titerOrdered By: Clemente Fragoso on 03-13-2024 Homogenous nuclear Ab pattern (S) [Titer] N/A [facility] Serum nuclear antibody titer Ordered By: Clemente Fragoso on 03-13-2024 Nuclear Ab (S) [Titer] Negative . [facility] Comment on above: Negative <1:80 Borde rline 1:80 Positive >1:80ICAP nomenclature: [id number] more information about Hep-2 cell patterns useANApatterns.org, the official website for theInternational Consensus on Antinuclear Antibody (PATRICK)Patterns (ICAP).Performed at: - [facility] [id number] Director: Fareed Santos PhD, Phone: [phone] Serum or plasma albumin/glob ulin mass ratioOrdered By: Clemente Fragoso on 03-13-2024 Albumin/Globulin [Mass ratio] 1.1 {ratio} Normal [facility] Comment on above: Performed By: #### C MP, ADDONUAPLUS, ESR, CBC, CK, ARLENE, CRP, FE and TIBC #### [place] [address] [place] #### SSA, SUSANA,URINE, C3, SSB, KAPPA, CH50, SUSANA SERUM, UPE RAND, C4, SPE, PATRICK #### [facility] , Albumin/Globulin [Mass ratio] 0.8 {ratio} Normal 0.7-1.7 [facility] Comment on above: Performed By: #### C BC, FE and TIBC, ARLENE #### [facility] [address] [place] [address] [place] #### LAURA #### [facility] , Serum or plasma alpha 1 glob ulin measurement by electrophoresis (mass/volume)Ordered By: Clemente Fragoso on 03-13-2024 Alpha 1 globulin Elph [Mass/Vol] 0.5 g/dL High 0.0-0.4 [facility] Serum or plasma alpha 2 glob ulin measurement by electrophoresis (mass/volume)Ordered By: Clemente Fragoso on 03-13-2024 Alpha 2 globulin Elph [Mass/Vol] 1.1 g/dL High 0.4-1.0 [facility] Serum or plasma anion gap de terminationOrdered By: Clemente Fragoso on 03-13-2024 Anion gap [Moles/Vol] 8.3 mmol/L Normal 6.0-15.0 [facility] Comment on above: Performed By: #### C MP, ADDONUAPLUS, ESR, CBC, CK, ARLENE, CRP, FE and TIBC #### [facility] [address] [place] [address] [place] #### SSA, SUSANA,URINE, C3, SSB, KAPPA, CH50, SUSANA SERUM, UPE RAND, C4, SPE, PATRICK #### [facility] , Serum or plasma beta globuli n measurement by electrophoresis (mass/volume)Ordered By: Clemente Fragoso on 03-13-2024 Beta globulin Elph [Mass/Vol] 1.2 g/dL 0.7-1.3 [facility] Serum or plasma complement C 3 measurement (mass/volume)Ordered By: Clemente Fragoso on 03-13-2024 Complement C3 [Mass/Vol] 172 mg/dL High 82-167 [facility] Comment on above: Performed at: [place] [id number] Director: Fareed Santos PhD, Phone: [phone] Serum or plasma complement C 4 measurement (mass/volume)Ordered By: Clemente Fragoso on 03-13-2024 Complement C4 [Mass/Vol] 32 mg/dL 12-38 [facility] Serum or plasma gamma globul in measurement by electrophoresis (mass/volume)Ordered By: Clemente Fragoso on 03-13-2024 Gamma globulin Elph [Mass/Vol] 1.4 g/dL 0.4-1.8 [facility] Sodium [Moles/volume] in Ser um or PlasmaOrdered By: Clemente Fragoso on 03-13-2024 Sodium [Moles/Vol] 135 mmol/L Low 136-145 [facility] Comment on above: Performed By: #### C MP, ADDONUAPLUS, ESR, CBC, CK, ARLENE, CRP, FE and TIBC #### [facility] [address] #### SSA, SUSANA,URINE, C3, SSB, KAPPA, CH50, SUSANA SERUM, UPE RAND, C4, SPE, PATRICK #### [facility] , Specific gravity Test strip (U) [Rel density]Ordered By: Clemente Fragoso on 03-13-2024 Specific gravity (U) [Rel density] 1.015 1.001-1.030 [facility] Transferrin [Mass/volume] in Serum or PlasmaOrdered By: Clemente Fragoso on 03-13-2024 Transferrin [Mass/Vol] 264 mg/dL Normal 203-362 [facility] Comment on above: Performed By: #### C MP, ADDONUAPLUS, ESR, CBC, CK, ARLENE, CRP, FE and TIBC #### [facility] [address] #### SSA, SUSANA,URINE, C3, SSB, KAPPA, CH50, SUSANA SERUM, UPE RAND, C4, SPE, PATRICK #### [facility] , Urea nitrogen [Mass/volume] in Serum or PlasmaOrdered By: Clemente Fragoso on 03-13-2024 Urea nitrogen [Mass/Vol] 14 mg/dL Normal 7-25 [facility] Comment on above: Performed By: #### C MP, ADDONUAPLUS, ESR, CBC, CK, ARLENE, CRP, FE and TIBC #### [facility] [address] [place] [address] [place] #### SSA, SUSANA,URINE, C3, SSB, KAPPA, CH50, SUSANA SERUM, UPE RAND, C4, SPE, PATRICK #### [facility] , Urine alpha 1 globulin/total protein by electrophoresisOrdered By: Clemente Fragoso on 03-13-2024 Alpha 1 globulin Elph (U) [Mass fraction] 2.4 % . [facility] Urine alpha 2 globulin/total protein ratio by electrophoresisOrdered By: Clemente Fragoso on 03-13-2024 Alpha 2 globulin Elph (U) [Mass fraction] 13.7 % . [facility] Urine appearanceOrdered By: Clemente Fragoso on 03-13-2024 Appearance (U) Clear Normal Clear [facility] Comment on above: Order Comment: Name Collection Type:: Clean-Voided Midstream Performed By: #### C MP, ADDONUAPLUS, ESR, CBC, CK, ARLENE, CRP, FE and TIBC #### [facility] [address] [place] [address] [place] #### SSA, SUSANA,URINE, C3, SSB, KAPPA, CH50, SUSANA SERUM, UPE RAND, C4, SPE, PATRICK #### [facility] , Urine beta globulin measurem ent by electrophoresis (mass/volume)Ordered By: Clemente Fragoso on 03-13-2024 Beta globulin Elph (U) [Mass/Vol] 29.3 % . [facility] Urobilinogen Test strip (U) [Mass/Vol]Ordered By: Clemente Fragoso on 03-13-2024 Urobilinogen (U) [Mass/Vol] Normal mg/dL Normal [facility] pH of Urine by Test stripOrd ered By: Clemente Fragoso on 03-13-2024 pH (U) 5.5 [pH] Normal 5.0-9.0 [facility] Comment on above: Order Comment: Name Collection Type:: Clean-Voided Midstream Performed By: #### C MP, ADDONUAPLUS, ESR, CBC, CK, ARLENE, CRP, FE and TIBC #### [facility] [address] [place] [address] #### SSA, SUSANA,URINE, C3, SSB, KAPPA, CH50, SUSANA SERUM, UPE RAND, C4, SPE, PATRICK #### [facility] , XR HIP RT 2-3 VIEWS W OR WO PELVISon 08-25-2023 XR HIP RT 2-3 VIEWS W OR WO PELVIS XR HIP RT 2-3 VIEWS W OR WO PELVIS Exam: One view of the pelvis and 2 views of the right hip dated 08/24/2023. HISTORY: Follow-up of right hip arthroplasty. COMPARISON: Right hip radiographs dated 08/07/2023. IMPRESSION: Anatomic alignment of right hip hemiarthroplasty without periprosthetic osseous lucency or fracture. Old fracture of the right ischium. Old fracture of the anterior colon of the right acetabulum. Finalized by Suad Covarrubias MD on 08/25/2023 8:26 PM Normal [facility] COMPLETE BLOOD COUNTon 08-10 Erythrocyte distribution width (RBC) [Ratio] 20.3 % High 11.5-15.0 [facility] Comment on above: Performed By: #### 8 2476-06, 1987-10, #### [facility] ([id number]) [address], [address] [place] [address] Hematocrit (Bld) [Volume fraction] 32.3 % Low 39-49 [facility] Comment on above: Performed By: #### 8 24712-03, 1987-10, #### [facility] ([id number]) [address], [address] [place] [address] Hemoglobin (Bld) [Mass/Vol] 10.5 g/dL Low 13.0-17.0 [facility] Comment on above: Performed By: #### 8 24712-03, 1987-10, #### [facility] ([id number]) [address], [address] [place] [address] MCH (RBC) [Entitic mass] 28.2 pg Normal 27-34 [facility] Comment on above: Performed By: #### 8 24712-03, 1987-10, 99409-8 #### [facility] ([id number]) [address], [address] [place] [address] MCHC (RBC) [Mass/Vol] 32.5 g/dL Normal 32-36 [facility] Comment on above: Performed By: #### 8 24712-03, 1987-10, #### [facility] ([id number]) [address], [address] [place] [address] MCV (RBC) [Entitic vol] 87 fL Normal 80-100 [facility] Comment on above: Performed By: #### 8 24712-03, 1987-10, #### [facility] ([id number]) [address], [address] [place] [address] Platelet mean volume (Bld) [Entitic vol] 9.7 fL Normal 7-12 [facility] Comment on above: Performed By: #### 8 24712-03, 1987-10, 18622-0 #### [facility] ([id number]) [address], [address] [place] [address] Platelets (Bld) [#/Vol] 320 10*3/uL Normal 150-450 [facility] Comment on above: Performed By: #### 8 24712-03, 1987-10, 05358-5 #### [facility] ([id number]) [address] [place] [address] RBC COUNT 3.73 X10E12/L Low 4.10-5.70 [facility] Comment on above: Performed By: #### 8 24712-03, 1987-10, 10578-2 #### [facility] ([id number]) [address] [place] [address] WBC (Bld) [#/Vol] 9.0 10*3/uL Normal 4.0-11.0 [facility] Comment on above: Performed By: #### 8 2477, 1987-10, 92144-6 #### [facility] ([id number]) [address], [address] [place] [address] COMPREHENSIVE METABOLIC PANE Angel 08-11-2023 Albumin [Mass/Vol] 3.2 g/dL Normal 3.2-5.3 [facility] Comment on above: Performed By: #### 8 2477, 1987-10, 75804-2 #### [facility] ([id number]) [address], [address] [place] [address] ALP [Catalytic activity/Vol] 80 U/L Normal 39-130 [facility] Comment on above: Performed By: #### 8 2477, 1987-10, 49362-0 #### [facility] ([id number]) [address], [address] [place] [address] ALT [Catalytic activity/Vol] 15 U/L Normal 0-40 [facility] Comment on above: Performed By: #### 8 24712-03, 1987-10, #### [facility] ([id number]) [address], [address] [place] [address] Anion gap [Moles/Vol] 7 mmol/L Normal 5-15 [facility] Comment on above: Performed By: #### 8 24712-03, 1987-10, #### [facility] ([id number]) [address], [address] [place] [address] AST [Catalytic activity/Vol] 22 U/L Normal 0-41 [facility] Comment on above: Performed By: #### 8 24712-03, 1987-10, #### [facility] ([id number]) [address], [address] [place] [address] Bilirubin [Mass/Vol] 0.8 mg/dL Normal 0.3-1.2 [facility] Comment on above: Performed By: #### 8 2477, 1987-10, 91169-7 #### [facility] ([id number]) [address], [address] [place] [address] Calcium [Mass/Vol] 10.1 mg/dL Normal 8.5-10.5 [facility] Comment on above: Performed By: #### 8 2477, 1987-10, 93635-6 #### [facility] ([id number]) [address], [address] [place] [address] Chloride [Moles/Vol] 98 mmol/L Normal 98-109 [facility] Comment on above: Performed By: #### 8 2477, 1987-10, 85751-6 #### [facility] ([id number]) [address], [address] [place] [address] CO2 [Moles/Vol] 34 mmol/L High 22-32 [facility] Comment on above: Performed By: #### 8 24712-03, 1987-10, #### [facility] ([id number]) [address], [address] [place] [address] Creatinine [Mass/Vol] 0.62 mg/dL Normal 0.60-1.30 [facility] Comment on above: Result Comment: METH OD TRACEABLE TO IDMS STANDARD Performed By: #### 8 24712-03, 1987-10, 19137-1 #### [facility] ([id number]) [address] [place] [address] eGFR (CKD-EPI) NON-RACE DEPENDENT >90 Normal >59 [facility] Comment on above: Result Comment: Reported eGFR is based on the CKD-EPI 2020 equation that does not use a race coefficient. Performed By: #### 8 2477, 1987-10, #### [facility] ([id number]) [address], [address] [place] [address] Glucose [Mass/Vol] 105 mg/dL High 65-99 [facility] Comment on above: Performed By: #### 8 2477, 1987-10, 96098-1 #### [facility] ([id number]) [address], [address] [place] [address] Potassium [Moles/Vol] 4.2 mmol/L Normal 3.5-5.0 [facility] Comment on above: Performed By: #### 8 2477, 1987-10, 87794-7 #### [facility] ([id number]) [address] [place] [address] Protein [Mass/Vol] 6.6 g/dL Normal 6.0-8.0 [facility] Comment on above: Performed By: #### 8 2477, 1987-10, 84087-6 #### [facility] ([id number]) [address] [place] [address] Sodium [Moles/Vol] 139 mmol/L Normal 134-146 [facility] Comment on above: Performed By: #### 8 24712-03, 1987-10, 30857-6 #### [facility] ([id number]) [address] [place] [address] Urea nitrogen [Mass/Vol] 20 mg/dL Normal 5-27 [facility] Comment on above: Performed By: #### 8 24712-03, 1987-10, 03397-6 #### [facility] ([id number]) [address], [address] [place] [address] MAGNESIUMon 08-11-2023 Magnesium [Mass/Vol] 2.0 mg/dL Normal 1.8-2.6 [facility] Comment on above: Performed By: #### 8 24712-03, 1987-10, 94102-7 #### [facility] ([id number]) [address] [place] [address] COMPLETE BLOOD COUNTon 08-09 Erythrocyte distribution width (RBC) [Ratio] 19.3 % High 11.5-15.0 [facility] Comment on above: Performed By: #### 8 2477, 1987-10, 81294-7 #### [facility] ([id number]) [address], [address] [place] [address] Hematocrit (Bld) [Volume fraction] 30.1 % Low 39-49 [facility] Comment on above: Performed By: #### 8 2477, 1987-10, 05972-5 #### [facility] ([id number]) [address] [place] [address] Hemoglobin (Bld) [Mass/Vol] 9.9 g/dL Low 13.0-17.0 [facility] Comment on above: Performed By: #### 8 24712-03, 1987-10, 34693-1 #### [facility] ([id number]) [address] [place] [address] MCH (RBC) [Entitic mass] 28.0 pg Normal 27-34 [facility] Comment on above: Performed By: #### 8 2476-06, 1987-10, #### [facility] ([id number]) [address] [place] [address] MCHC (RBC) [Mass/Vol] 32.9 g/dL Normal 32-36 [facility] Comment on above: Performed By: #### 8 24712-03, 1987-10, #### [facility] ([id number]) [address] [place] [address] MCV (RBC) [Entitic vol] 85 fL Normal 80-100 [facility] Comment on above: Performed By: #### 8 24712-03, 1987-10, 51093-9 #### [facility] ([id number]) [address] [place] [address] Platelet mean volume (Bld) [Entitic vol] 9.9 fL Normal 7-12 [facility] Comment on above: Performed By: #### 8 24712-03, 1987-10, 35388-1 #### [facility] ([id number]) [address] [place] [address] Platelets (Bld) [#/Vol] 341 10*3/uL Normal 150-450 [facility] Comment on above: Performed By: #### 8 24712-03, 1987-10, 84230-3 #### [facility] ([id number]) [address] [place] [address] RBC COUNT 3.53 X10E12/L Low 4.10-5.70 [facility] Comment on above: Performed By: #### 8 2477, 1987-10, 12093-4 #### [facility] ([id number]) [address] [place] [address] WBC (Bld) [#/Vol] 9.7 10*3/uL Normal 4.0-11.0 [facility] Comment on above: Performed By: #### 8 2477, 1987-10, 63441-1 #### [facility] ([id number]) [address] [place] [address] COMPREHENSIVE METABOLIC PANE Angel 08-10-2023 Albumin [Mass/Vol] 3.3 g/dL Normal 3.2-5.3 [facility] Comment on above: Performed By: #### 8 2477, 1987-10, 71451-0 #### [facility] ([id number]) [address], [address] [place] [address] ALP [Catalytic activity/Vol] 79 U/L Normal 39-130 [facility] Comment on above: Performed By: #### 8 2477, 1987-10, 02010-8 #### [facility] ([id number]) [address] [place] [address] ALT [Catalytic activity/Vol] 12 U/L Normal 0-40 [facility] Comment on above: Performed By: #### 8 2477, 1987-10, 33029-4 #### [facility] ([id number]) [address] [place] [address] Anion gap [Moles/Vol] 5 mmol/L Normal 5-15 [facility] Comment on above: Performed By: #### 8 2477, 1987-10, 40220-2 #### [facility] ([id number]) [address], [address] [place] [address] AST [Catalytic activity/Vol] 32 U/L Normal 0-41 [facility] Comment on above: Performed By: #### 8 2477, 1987-10, 14337-5 #### [facility] ([id number]) [address], [address] [place] [address] Bilirubin [Mass/Vol] 0.8 mg/dL Normal 0.3-1.2 [facility] Comment on above: Performed By: #### 8 24712-03, 1987-10, 94949-5 #### [facility] ([id number]) [address] [place] [address] Calcium [Mass/Vol] 10.4 mg/dL Normal 8.5-10.5 [facility] Comment on above: Performed By: #### 8 24712-03, 1987-10, 87363-0 #### [facility] ([id number]) [address] [place] [address] Chloride [Moles/Vol] 98 mmol/L Normal 98-109 [facility] Comment on above: Performed By: #### 8 2477, 1987-10, 23428-9 #### [facility] ([id number]) [address] [place] [address] CO2 [Moles/Vol] 34 mmol/L High 22-32 [facility] Comment on above: Performed By: #### 8 2477, 1987-10, 61155-2 #### [facility] ([id number]) [address] [place] [address] Creatinine [Mass/Vol] 0.56 mg/dL Low 0.60-1.30 [facility] Comment on above: Result Comment: METH OD TRACEABLE TO IDMS STANDARD Performed By: #### 8 2477, 1987-10, 88955-4 #### [facility] ([id number]) [address] [place] [address] eGFR (CKD-EPI) NON-RACE DEPENDENT >90 Normal >59 [facility] Comment on above: Result Comment: Reported eGFR is based on the CKD-EPI 2020 equation that does not use a race coefficient. Performed By: #### 8 24712-03, 1987-10, #### [facility] ([id number]) [address] [place] [address] Glucose [Mass/Vol] 83 mg/dL Normal 65-99 [facility] Comment on above: Performed By: #### 8 24712-03, 1987-10, 88248-2 #### [facility] ([id number]) [address] [place] [address] Potassium [Moles/Vol] 4.5 mmol/L Normal 3.5-5.0 [facility] Comment on above: Performed By: #### 8 24712-03, 1987-10, #### [facility] ([id number]) [address] [place] [address] Protein [Mass/Vol] 6.5 g/dL Normal 6.0-8.0 [facility] Comment on above: Performed By: #### 8 24712-03, 1987-10, 32399-0 #### [facility] ([id number]) [address] [place] [address] Sodium [Moles/Vol] 137 mmol/L Normal 134-146 [facility] Comment on above: Performed By: #### 8 2477, 1987-10, 94146-2 #### [facility] ([id number]) [address] [place] [address] Urea nitrogen [Mass/Vol] 14 mg/dL Normal 5-27 [facility] Comment on above: Performed By: #### 8 2477, 1987-10, 83885-2 #### [facility] ([id number]) [address] [place] [address] MAGNESIUMon 08-10-2023 Magnesium [Mass/Vol] 2.2 mg/dL Normal 1.8-2.6 [facility] Comment on above: Performed By: #### 8 24712-03, 1987-10, 42924-9 #### [facility] ([id number]) [address] [place] [address] Magnesium [Mass/Vol] 1.7 mg/dL Low 1.8-2.6 [facility] Comment on above: Performed By: #### 8 24712-03, 1987-10, 68968-3 #### [facility] ([id number]) [address] [place] [address] SODIUMon 08-10-2023 Sodium [Moles/Vol] 139 mmol/L Normal 134-146 [facility] Comment on above: Performed By: #### 8 24712-03, 1987-10, 40038-9 #### [facility] ([id number]) [address] [place] [address] Sodium [Moles/Vol] 137 mmol/L Normal 134-146 [facility] Comment on above: Performed By: #### 8 2477, 1987-10, 87360-7 #### [facility] ([id number]) [address] [place] [address] Sodium [Moles/Vol] 140 mmol/L Normal 134-146 [facility] Comment on above: Performed By: #### 8 2477, 1987-10, 05512-3 #### [facility] ([id number]) [address] [place] [address] COMPLETE BLOOD COUNTon 08-08 Erythrocyte distribution width (RBC) [Ratio] 18.5 % High 11.5-15.0 [facility] Comment on above: Performed By: #### 8 24712-03, 1987-10, 47619-4 #### [facility] ([id number]) [address] [place] [address] Hematocrit (Bld) [Volume fraction] 24.8 % Low 39-49 [facility] Comment on above: Performed By: #### 8 24712-03, 1987-10, 15950-6 #### [facility] ([id number]) [address] [place] [address] Hemoglobin (Bld) [Mass/Vol] 8.3 g/dL Low 13.0-17.0 [facility] Comment on above: Performed By: #### 8 24712-03, 1987-10, 16231-5 #### [facility] ([id number]) [address] [place] [address] MCH (RBC) [Entitic mass] 28.6 pg Normal 27-34 [facility] Comment on above: Performed By: #### 8 24712-03, 1987-10, 76980-8 #### [facility] ([id number]) [address] [place] [address] MCHC (RBC) [Mass/Vol] 33.7 g/dL Normal 32-36 [facility] Comment on above: Performed By: #### 8 24712-03, 1987-10, 39090-0 #### [facility] ([id number]) [address] [place] [address] MCV (RBC) [Entitic vol] 85 fL Normal 80-100 [facility] Comment on above: Performed By: #### 8 24712-03, 1987-10, 82148-2 #### [facility] ([id number]) [address] [place] [address] Platelet mean volume (Bld) [Entitic vol] 10.1 fL Normal 7-12 [facility] Comment on above: Performed By: #### 8 24712-03, 1987-10, 14971-5 #### [facility] ([id number]) [address], [address] [place] [address] Platelets (Bld) [#/Vol] 270 10*3/uL Normal 150-450 [facility] Comment on above: Performed By: #### 8 24712-03, 1987-10, 12662-3 #### [facility] ([id number]) [address] [address] [place] [address] RBC COUNT 2.91 X10E12/L Low 4.10-5.70 [facility] Comment on above: Performed By: #### 8 24712-03, 1987-10, 88117-6 #### [facility] ([id number]) [address] [address] [place] [address] WBC (Bld) [#/Vol] 8.9 10*3/uL Normal 4.0-11.0 [facility] Comment on above: Performed By: #### 8 2477, 1987-10, 70215-7 #### [facility] ([id number]) [address], [address] [place] [address] COMPREHENSIVE METABOLIC PANE Angel 08-09-2023 Albumin [Mass/Vol] 3.0 g/dL Low 3.2-5.3 [facility] Comment on above: Performed By: #### 8 2477, 1987-10, 85328-2 #### [facility] ([id number]) [address], [address] [place] [address] ALP [Catalytic activity/Vol] 70 U/L Normal 39-130 [facility] Comment on above: Performed By: #### 8 2477-, 1987-10, 46379-7 #### [facility] ([id number]) [address], [address] [place] [address] ALT [Catalytic activity/Vol] 8 U/L Normal 0-40 [facility] Comment on above: Performed By: #### 8 2477, 1987-10, 80524-7 #### [facility] ([id number]) [address], [address] [place] [address] Anion gap [Moles/Vol] 5 mmol/L Normal 5-15 [facility] Comment on above: Performed By: #### 8 2477, 1987-10, 97076-9 #### [facility] ([id number]) [address], [address] [place] [address] AST [Catalytic activity/Vol] 16 U/L Normal 0-41 [facility] Comment on above: Performed By: #### 8 2477, 1987-10, 00232-8 #### [facility] ([id number]) [address], [address] [place] [address] Bilirubin [Mass/Vol] 0.5 mg/dL Normal 0.3-1.2 [facility] Comment on above: Performed By: #### 8 2477, 1987-10, 96574-3 #### [facility] ([id number]) [address], [address] [place] [address] Calcium [Mass/Vol] 9.8 mg/dL Normal 8.5-10.5 [facility] Comment on above: Performed By: #### 8 2477, 1987-10, 94202-8 #### [facility] ([id number]) [address], [address] [place] [address] Chloride [Moles/Vol] 102 mmol/L Normal 98-109 [facility] Comment on above: Performed By: #### 8 24712-03, 1987-10, 11569-5 #### [facility] ([id number]) [address], [address] [place] [address] CO2 [Moles/Vol] 32 mmol/L Normal 22-32 [facility] Comment on above: Performed By: #### 8 24712-03, 1987-10, #### [facility] ([id number]) [address] [address] Creatinine [Mass/Vol] 0.54 mg/dL Low 0.60-1.30 [facility] Comment on above: Result Comment: METH OD TRACEABLE TO IDMS STANDARD Performed By: #### 8 24712-03, 1987-10, #### [facility] ([id number]) [address] [place] [address] eGFR (CKD-EPI) NON-RACE DEPENDENT >90 Normal >59 [facility] Comment on above: Result Comment: Reported eGFR is based on the CKD-EPI 2020 equation that does not use a race coefficient. Performed By: #### 8 24712-03, 1987-10, #### [facility] ([id number]) [address], [address] [place] [address] Glucose [Mass/Vol] 110 mg/dL High 65-99 [facility] Comment on above: Performed By: #### 8 24712-03, 1987-10, #### [facility] ([id number]) [address] [place] [address] Potassium [Moles/Vol] 4.3 mmol/L Normal 3.5-5.0 [facility] Comment on above: Performed By: #### 8 24712-03, 1987-10, #### [facility] ([id number]) [address], [address] [place] [address] Protein [Mass/Vol] 5.8 g/dL Low 6.0-8.0 [facility] Comment on above: Performed By: #### 8 2477, 1987-10, 15232-9 #### [facility] ([id number]) [address] [place] [address] Sodium [Moles/Vol] 139 mmol/L Normal 134-146 [facility] Comment on above: Performed By: #### 8 24712-03, 1987-10, 72238-6 #### [facility] ([id number]) [address] [place] [address] Urea nitrogen [Mass/Vol] 16 mg/dL Normal 5-27 [facility] Comment on above: Performed By: #### 8 24712-03, 1987-10, 80173-3 #### [facility] ([id number]) [address], [address] [place] [address] MAGNESIUMon 08-09-2023 Magnesium [Mass/Vol] 1.9 mg/dL Normal 1.8-2.6 [facility] Comment on above: Performed By: #### 8 2477, 1987-10, 89832-2 #### [facility] ([id number]) [address] [place] [address] SODIUMon 08-09-2023 Sodium [Moles/Vol] 140 mmol/L Normal 134-146 [facility] Comment on above: Performed By: #### 8 2477, 1987-10, 26873-7 #### [facility] ([id number]) [address], [address] [place] [address] Sodium [Moles/Vol] 143 mmol/L Normal 134-146 [facility] Comment on above: Performed By: #### 8 2477-, 1987-10, 54664-3 #### [facility] ([id number]) [address], [address] [place] [address] Sodium [Moles/Vol] 140 mmol/L Normal 134-146 [facility] Comment on above: Performed By: #### 8 2477-, 1987-10, 95237-7 #### [facility] ([id number]) [address], [address] [place] [address] COMPLETE BLOOD COUNTon 08-07 Erythrocyte distribution width (RBC) [Ratio] 18.6 % High 11.5-15.0 [facility] Comment on above: Performed By: #### hCelsi JOINER CMP, 94113-0 #### [facility] ([id number]) [address] [place] [address] Hematocrit (Bld) [Volume fraction] 26.3 % Low 39-49 [facility] Comment on above: Performed By: #### Chelsi JOINER CMP, #### [facility] ([id number]) [address] [place] [address] Hemoglobin (Bld) [Mass/Vol] 8.7 g/dL Low 13.0-17.0 [facility] Comment on above: Performed By: #### Chelsi JOINER, CMP, #### [facility] ([id number]) [address] [place] [address] MCH (RBC) [Entitic mass] 28.0 pg Normal 27-34 [facility] Comment on above: Performed By: #### Chelsi JOINER, CMP, #### [facility] ([id number]) [address], [address] [place] [address] MCHC (RBC) [Mass/Vol] 33.0 g/dL Normal 32-36 [facility] Comment on above: Performed By: #### C BC, CMP, #### [facility] ([id number]) [address], [address] [place] [address] MCV (RBC) [Entitic vol] 85 fL Normal 80-100 [facility] Comment on above: Performed By: #### Chelsi BC, CMP, #### [facility] ([id number]) [address], [address] [place] [address] Platelet mean volume (Bld) [Entitic vol] 10.1 fL Normal 7-12 [facility] Comment on above: Performed By: #### Chelsi BC, CMP, #### [facility] ([id number]) [address], [address] [place] [address] Platelets (Bld) [#/Vol] 234 10*3/uL Normal 150-450 [facility] Comment on above: Performed By: #### Chelsi BC, CMP, #### [facility] ([id number]) [address], [address] [place] [address] RBC COUNT 3.10 X10E12/L Low 4.10-5.70 [facility] Comment on above: Performed By: #### Chelsi JOINER, CMP, #### [facility] ([id number]) [address], [address] [place] [address] WBC (Bld) [#/Vol] 7.4 10*3/uL Normal 4.0-11.0 [facility] Comment on above: Performed By: #### Chelsi BC, CMP, #### [facility] ([id number]) [address], [address] [place] [address] COMPREHENSIVE METABOLIC PANE Angel 08-08-2023 Albumin [Mass/Vol] 3.2 g/dL Normal 3.2-5.3 [facility] Comment on above: Performed By: #### C BC, CMP, #### [facility] ([id number]) [address], [address] [place] [address] ALP [Catalytic activity/Vol] 70 U/L Normal 39-130 [facility] Comment on above: Performed By: #### Chelsi BC, CMP, #### [facility] ([id number]) [address], [address] [place] [address] ALT [Catalytic activity/Vol] 10 U/L Normal 0-40 [facility] Comment on above: Performed By: #### Chelsi JOINER, CMP, #### [facility] ([id number]) [address], [address] [place] [address] Anion gap [Moles/Vol] 7 mmol/L Normal 5-15 [facility] Comment on above: Performed By: #### Chelsi BC, CMP, #### [facility] ([id number]) [address], [address] [place] [address] AST [Catalytic activity/Vol] 17 U/L Normal 0-41 [facility] Comment on above: Performed By: #### Chelsi BC, CMP, #### [facility] ([id number]) [address] [place] [address] Bilirubin [Mass/Vol] 0.6 mg/dL Normal 0.3-1.2 [facility] Comment on above: Performed By: #### Chelsi BC, CMP, #### [facility] ([id number]) [address] [place] [address] Calcium [Mass/Vol] 9.3 mg/dL Normal 8.5-10.5 [facility] Comment on above: Performed By: #### Chelsi BC, CMP, #### [facility] ([id number]) [address], [address] [place] [address] Chloride [Moles/Vol] 104 mmol/L Normal 98-109 [facility] Comment on above: Performed By: #### Chelsi JOINER [facility], #### [facility] ([id number]) [address], [address] [place] [address] CO2 [Moles/Vol] 32 mmol/L Normal 22-32 [facility] Comment on above: Performed By: #### Chelsi JOINER [facility], #### [facility] ([id number]) [address], [facility] [address] [place] [address] Creatinine [Mass/Vol] 0.59 mg/dL Low 0.60-1.30 [facility] Comment on above: Result Comment: METH OD TRACEABLE TO IDMS STANDARD Performed By: #### Chelsi JOINER CMP, #### [facility] ([id number]) [address], [address] [place] [address] eGFR (CKD-EPI) NON-RACE DEPENDENT >90 Normal >59 [facility] Comment on above: Result Comment: Reported eGFR is based on the CKD-EPI 2020 equation that does not use a race coefficient. Performed By: #### Chelsi JOINER CMP, #### [facility] ([id number]) [address], [address] [place] [address] Glucose [Mass/Vol] 156 mg/dL High 65-99 [facility] Comment on above: Performed By: #### Chelsi JOINER [facility], #### [facility] ([id number]) [address], [facility] [address] [place] [address] Potassium [Moles/Vol] 3.7 mmol/L Normal 3.5-5.0 [facility] Comment on above: Performed By: #### Chelsi JOINER CMP, #### [facility] ([id number]) [address], [address] [place] [address] Protein [Mass/Vol] 6.0 g/dL Normal 6.0-8.0 [facility] Comment on above: Performed By: #### C MARISEL, [facility], 15736-9 #### [facility] ([id number]) [address], [address] [place] [address] Sodium [Moles/Vol] 143 mmol/L Normal 134-146 [facility] Comment on above: Performed By: #### C MARISEL, [facility], 43041-7 #### [facility] ([id number]) [address], [address] [place] [address] Urea nitrogen [Mass/Vol] 14 mg/dL Normal 5-27 [facility] Comment on above: Performed By: #### Chelsi JOINER, [facility], 080[address]-8 #### [facility] ([id number]) [address], [address] [place] [address] FL SWALLOW MOTILITY FUNCTION on 08-08-2023 FL SWALLOW MOTILITY FUNCTION FL SWALLOW MOTILITY FUNCTION FL SWALLOW MOTILITY FUNCTION INDICATION: Oropharyngeal dysphagia COMPARISON: Abdominal swallow 08/06/2023 TECHNIQUE: Video fluoroscopic swallow study was performed in conjunction with speech pathologist. Barium contrast materials of varying consistencies administered. FINDINGS: Fluoroscopy time: 1 minute 38 seconds Dose (Reference air kerma): 2.72 mGy Runs: 10 Fluoroscopic spot films: Zero Thin: Aspiration. Mildly thick: No penetration or aspiration. Applesauce: No penetration or aspiration. Fruit: No penetration or aspiration. IMPRESSION: * Aspiration with thin liquids. * Please correlate with dedicated speech pathology report for additional details and recommendations. Approved by Resident: Manolo Mari MD on 08/08/2023 4:47 PM IFareed MD have personally reviewed the image(s) and agree with and/or edited the report Finalized by Fareed Phillip MD on 08/08/2023 4:54 PM Normal [facility] MAGNESIUMon 08-08-2023 Magnesium [Mass/Vol] 2.2 mg/dL Normal 1.8-2.6 [facility] Comment on above: Performed By: #### 8 2477-, 1987-10, 12808-4 #### [facility] ([id number]) [address] [place] [address] Magnesium [Mass/Vol] 1.6 mg/dL Low 1.8-2.6 [facility] Comment on above: Performed By: #### Chelsi JOINER CMP, #### [facility] ([id number]) [address] [place] [address] POTASSIUMon 08-08-2023 Potassium [Moles/Vol] 3.7 mmol/L Normal 3.5-5.0 [facility] Comment on above: Performed By: #### 8 2477, 1987-10, 77658-1 #### [facility] ([id number]) [address] [place] [address] SODIUMon 08-08-2023 Sodium [Moles/Vol] 143 mmol/L Normal 134-146 [facility] Comment on above: Performed By: #### 8 2477, 1987-10, 24777-0 #### [facility] ([id number]) [address], [address] [place] [address] Sodium [Moles/Vol] 142 mmol/L Normal 134-146 [facility] Comment on above: Performed By: #### Chelsi JOINER CMP, #### [facility] ([id number]) [address] [place] [address] ARTERIAL BLOOD GASon 024 JOHN'S TEST Normal [facility] Comment on above: Performed By: #### Chelsi JOINER CMP, #### [facility] ([id number]) [address] [place] [address] BASE,DEFICIT 1.0 MMOL/L Normal 0.0-2.0 [facility] Comment on above: Performed By: #### Chelsi JOINER, CMP, #### [facility] ([id number]) [address], [address] [place] [address] Body temperature 98.6 [degF] Normal 37.0 [facility] Comment on above: Performed By: #### Chelsi JOINER CMP, #### [facility] ([id number]) [address] [place] [address] HCO3 (Bld) [Moles/Vol] 24.6 mmol/L Normal 22-26 [facility] Comment on above: Performed By: #### Chelsi JOINER CMP, #### [facility] ([id number]) [address] [place] [address] INSP. O2 CONC. 40 % Normal [facility] Comment on above: Performed By: #### Chelsi JOINER CMP, #### [facility] ([id number]) [address] [place] [address] Oxygen (Bld) [Partial pressure] 103 mm[Hg] High 80-100 [facility] Comment on above: Performed By: #### Chelsi JOINER CMP, #### [facility] ([id number]) [address] [place] [address] Oxygen saturation in Blood 97.0 % Normal >90 [facility] Comment on above: Performed By: #### Chelsi JOINER CMP, #### [facility] ([id number]) [address] [place] [address] OXYGEN SOURCE NPPV Normal [facility] Comment on above: Performed By: #### Chelsi JOINER CMP, #### [facility] ([id number]) [address] [place] [address] PCO2 47.3 MMHG High 35-45 [facility] Comment on above: Performed By: #### Chelsi JOINER CMP, #### [facility] ([id number]) [address] [place] [address] pH (Bld) 7.324 [pH] Low 7.350-7.450 [facility] Comment on above: Performed By: #### Chelsi JOINER CMP, #### [facility] ([id number]) [address] [place] [address] SAMPLE SITE Terri Normal [facility] Comment on above: Performed By: #### Chelsi JOINER CMP, #### [facility] ([id number]) [address] [place] [address] SAMPLE TYPE ARTERIAL Normal [facility] Comment on above: Performed By: #### Chelsi JOINER CMP, #### [facility] ([id number]) [address] [place] [address] JOHN'S TEST Pass Normal [facility] Comment on above: Performed By: #### Chelsi JOINER CMP, #### [facility] ([id number]) [address] [place] [address] Base excess Calc (Bld) [Moles/Vol] 0.0 mmol/L Normal 0.0-2.0 [facility] Comment on above: Performed By: #### Chelsi JOINER CMP, #### [facility] ([id number]) [address] [place] [address] Body temperature 98.6 [degF] Normal 37.0 [facility] Comment on above: Performed By: #### Chelsi JOINER CMP, #### [facility] ([id number]) [address] [place] [address] HCO3 (Bld) [Moles/Vol] 24.4 mmol/L Normal 22-26 [facility] Comment on above: Performed By: #### Chelsi JOINER CMP, #### [facility] ([id number]) [address] [place] [address] INSP. O2 CONC. 28 % Normal [facility] Comment on above: Performed By: #### Chelsi JOINER CMP, #### [facility] ([id number]) [address] [place] [address] Oxygen (Bld) [Partial pressure] 80 mm[Hg] Normal 80-100 [facility] Comment on above: Performed By: #### Chelsi JOINER CMP, #### [facility] ([id number]) [address] [place] [address] Oxygen saturation in Blood 96.0 % Normal >90 [facility] Comment on above: Performed By: #### Chelsi JOINER CMP, #### [facility] ([id number]) [address] [place] [address] OXYGEN SOURCE NC Normal [facility] Comment on above: Performed By: #### Chelsi JOINER CMP, #### [facility] ([id number]) [address] [place] [address] PCO2 36.4 MMHG Normal 35-45 [facility] Comment on above: Performed By: #### Chelsi JOINER CMP, #### [facility] ([id number]) [address] [place] [address] pH (Bld) 7.434 [pH] Normal 7.350-7.450 [facility] Comment on above: Performed By: #### Chelsi JOINER CMP, #### [facility] ([id number]) [address] [place] [address] SAMPLE SITE LRad Normal [facility] Comment on above: Performed By: #### C MARISEL, CMP, #### [facility] ([id number]) [address] [place] [address] SAMPLE TYPE ARTERIAL Normal [facility] Comment on above: Performed By: #### C BC, CMP, #### [facility] ([id number]) [address] [place] [address] COMPLETE BLOOD COUNTon 08-06 Erythrocyte distribution width (RBC) [Ratio] 19.0 % High 11.5-15.0 [facility] Comment on above: Performed By: #### Chelsi JOINER CMP, #### [facility] ([id number]) [address] [place] [address] Hematocrit (Bld) [Volume fraction] 25.2 % Low 39-49 [facility] Comment on above: Performed By: #### C MARISEL CMP, #### [facility] ([id number]) [address] [place] [address] Hemoglobin (Bld) [Mass/Vol] 8.3 g/dL Low 13.0-17.0 [facility] Comment on above: Performed By: #### C MARISEL, CMP, #### [facility] ([id number]) [address] [place] [address] MCH (RBC) [Entitic mass] 27.8 pg Normal 27-34 [facility] Comment on above: Performed By: #### Chelsi JOINER, CMP, #### [facility] ([id number]) [address] [place] [address] MCHC (RBC) [Mass/Vol] 33.0 g/dL Normal 32-36 [facility] Comment on above: Performed By: #### Chelsi JOINER CMP, #### [facility] ([id number]) [address] [place] [address] MCV (RBC) [Entitic vol] 84 fL Normal 80-100 [facility] Comment on above: Performed By: #### Chelsi JOINER CMP, #### [facility] ([id number]) [address] [place] [address] Platelet mean volume (Bld) [Entitic vol] 10.7 fL Normal 7-12 [facility] Comment on above: Performed By: #### Chelsi JOINER CMP, #### [facility] ([id number]) [address] [place] [address] Platelets (Bld) [#/Vol] 234 10*3/uL Normal 150-450 [facility] Comment on above: Performed By: #### Chelsi JOINER CMP, #### [facility] ([id number]) [address] [place] [address] RBC COUNT 3.00 X10E12/L Low 4.10-5.70 [facility] Comment on above: Performed By: #### Chelsi JOINER CMP, #### [facility] ([id number]) [address] [place] [address] WBC (Bld) [#/Vol] 9.1 10*3/uL Normal 4.0-11.0 [facility] Comment on above: Performed By: #### Chelsi JOINER CMP, #### [facility] ([id number]) [address] [place] [address] COMPREHENSIVE METABOLIC PANE Angel 08-07-2023 Albumin [Mass/Vol] 3.1 g/dL Low 3.2-5.3 [facility] Comment on above: Performed By: #### Chelsi JOINER CMP, #### [facility] ([id number]) [address] [place] [address] ALP [Catalytic activity/Vol] 76 U/L Normal 39-130 [facility] Comment on above: Performed By: #### Chelsi JOINER CMP, #### [facility] ([id number]) [address] [place] [address] ALT [Catalytic activity/Vol] 11 U/L Normal 0-40 [facility] Comment on above: Performed By: #### Chelsi JOINER CMP, #### [facility] ([id number]) [address] [place] [address] Anion gap [Moles/Vol] 7 mmol/L Normal 5-15 [facility] Comment on above: Performed By: #### Chelsi JOINER CMP, #### [facility] ([id number]) [address] [place] [address] AST [Catalytic activity/Vol] 16 U/L Normal 0-41 [facility] Comment on above: Performed By: #### Chelsi JOINER CMP, #### [facility] ([id number]) [address], [address] [place] [address] Bilirubin [Mass/Vol] 1.1 mg/dL Normal 0.3-1.2 [facility] Comment on above: Performed By: #### Chelsi JOINER CMP, #### [facility] ([id number]) [address], [address] [place] [address] Calcium [Mass/Vol] 9.6 mg/dL Normal 8.5-10.5 [facility] Comment on above: Performed By: #### [facility], [address]-3 #### [facility] ([id number]) [address], [address] [place] [address] Chloride [Moles/Vol] 112 mmol/L High 98-109 [facility] Comment on above: Performed By: #### Chelsi JOINER [facility], 51609-7 #### [facility] ([id number]) [address], [address] [place] [address] CO2 [Moles/Vol] 29 mmol/L Normal 22-32 [facility] Comment on above: Performed By: #### Chelsi JOINER [facility], #### [facility] ([id number]) [address] [place] [address] Creatinine [Mass/Vol] 0.52 mg/dL Low 0.60-1.30 [facility] Comment on above: Result Comment: METH OD TRACEABLE TO IDMS STANDARD Performed By: #### Chelsi JOINER [facility], 43220-2 #### [facility] ([id number]) [address] [place] [address] eGFR (CKD-EPI) NON-RACE DEPENDENT >90 Normal >59 [facility] Comment on above: Result Comment: Reported eGFR is based on the CKD-EPI 1 equation that does not use a race coefficient. Performed By: #### Chelsi JOINER [facility], #### [facility] ([id number]) [address] [place] [address] Glucose [Mass/Vol] 111 mg/dL High 65-99 [facility] Comment on above: Performed By: #### Chelsi JOINER [facility], 11557-8 #### [facility] ([id number]) [address], [address] [place] [address] Potassium [Moles/Vol] 3.8 mmol/L Normal 3.5-5.0 [facility] Comment on above: Performed By: #### C BC, CMP, 53206-6 #### [facility] ([id number]) [address], [address] [place] [address] Protein [Mass/Vol] 6.0 g/dL Normal 6.0-8.0 [facility] Comment on above: Performed By: #### Chelsi JOINER CMP, #### [facility] ([id number]) [address], [address] [place] [address] Sodium [Moles/Vol] 148 mmol/L High 134-146 [facility] Comment on above: Performed By: #### Chelsi JOINER CMP, 49102-6 #### [facility] ([id number]) [address] [place] [address] Urea nitrogen [Mass/Vol] 13 mg/dL Normal 5-27 [facility] Comment on above: Performed By: #### Chelsi JOINER CMP, #### [facility] ([id number]) [address], [address] [place] [address] MAGNESIUMon 08-07-2023 Magnesium [Mass/Vol] 1.7 mg/dL Low 1.8-2.6 [facility] Comment on above: Performed By: #### Chelsi JOINER CMP, 43951-5 #### [facility] ([id number]) [address], [address] [place] [address] RAPID CARDIACon 08-07-2023 JOHN'S TEST Normal [facility] Comment on above: Performed By: #### Chelsi JOINER, CMP, #### [facility] ([id number]) [address], [address] [place] [address] BASE,DEFICIT 1.1 MMOL/L Normal 0.0-2.0 [facility] Comment on above: Performed By: #### Chelsi JOINER, CMP, #### [facility] ([id number]) [address], [address] [place] [address] Body temperature 98.6 [degF] Normal 37.0 [facility] Comment on above: Performed By: #### Chelsi JOINER CMP, #### [facility] ([id number]) [address], [address] [place] [address] Glucose [Mass/Vol] 108 mg/dL High 65-99 [facility] Comment on above: Performed By: #### Chelsi JOINER CMP, #### [facility] ([id number]) [address], [address] [place] [address] HCO3 (Bld) [Moles/Vol] 23.9 mmol/L Normal 22-26 [facility] Comment on above: Performed By: #### Chelsi JOINER CMP, #### [facility] ([id number]) [address], [address] [place] [address] Hematocrit (Bld) [Volume fraction] 28 % Low 39-49 [facility] Comment on above: Performed By: #### Chelsi JOINER [facility], #### [facility] ([id number]) [address] [place] [address] Hemoglobin (Bld) [Mass/Vol] 9.1 g/dL Low 13.0-17.0 [facility] Comment on above: Performed By: #### Chelsi JOINER CMP, #### [facility] ([id number]) [address], [address] [place] [address] INSP. O2 CONC. 100 % Normal [facility] Comment on above: Performed By: #### Chelsi JOINER CMP, #### [facility] ([id number]) [address], [address] [place] [address] IONIZED CALCIUM 5.0 mg/dL Normal 4.5-5.3 [facility] Comment on above: Performed By: #### Chelsi JOINER CMP, #### [facility] ([id number]) [address], [address] [place] [address] Oxygen (Bld) [Partial pressure] 149 mm[Hg] High 80-100 [facility] Comment on above: Performed By: #### Chelsi JOINER CMP, #### [facility] ([id number]) [address] [place] [address] Oxygen saturation in Blood 100.1 % Normal >90 [facility] Comment on above: Performed By: #### Chelsi JOINER CMP, #### [facility] ([id number]) [address], [address] [place] [address] PCO2 39.6 MMHG Normal 35-45 [facility] Comment on above: Performed By: #### Chelsi JOINER [facility], #### [facility] ([id number]) [address] [place] [address] pH (Bld) 7.389 [pH] Normal 7.350-7.450 [facility] Comment on above: Performed By: #### Chelsi JOINER CMP, #### [facility] ([id number]) [address] [place] [address] Potassium [Moles/Vol] 3.1 mmol/L Low 3.5-5.0 [facility] Comment on above: Performed By: #### Chelsi JOINER CMP, #### [facility] ([id number]) [address] [place] [address] SAMPLE SITE TERRI Normal [facility] Comment on above: Performed By: #### Chelsi JOINER CMP, #### [facility] ([id number]) [address] [place] [address], [address] [place] [address] SAMPLE TYPE Arterial Normal [facility] Comment on above: Performed By: #### C , [facility], 20477-7 #### [facility] ([id number]) [address] [place] [address], [facility] [address] [place] [address] Surgical Pathologyon 024 Surgical Pathology Normal [facility] Comment on above: Result Comment: [facility] [address] [place] [address] Surgical Pathology Consultation Patient Name:DES ALCALAB:1950 (Age: 73)Gender:MTaken:08/07/2023eported:08/10/2023hysician(s):Mauricio Cleveland MD ([phone])Copy To: Rec. #:[id number]: #[id number] Final Pathologic Diagnosis Right hip bone and femoral head; excision: Femoral head with hemorrhages and fragmentation of the bone trabeculae consistent with fracture site changes. Thin bone trabeculae suggestive of osteopenia. Normocellular maturing trilineage hematopoiesis. No granuloma or neoplasm. Report Electronically Signed [facility]/08/10/2023Kofi Alicea MD Interpretation performed at [facility], [address] [place] [address], License number: [id number]. Clinical History Right hip fx. Gross Description Received in formalin labeled FREDRICK, right femoral head is a dome shaped femoral head, 5 x 5 x 3 cm with separate bone fragments in the container aggregating to 4 x 3 x 2 cm. The articular surface is espinoza, smooth and glistening. The resection margin is roughened and markedly softened. The specimen is sectioned to reveal espinoza firm bone within the femoral head. Campus Security Director sections are submitted as follows: A separate fragments of bone within the container, decalcified B femoral head, decalcified C softened tissue at resection margin (3, ss, [id number]) . /08/07/2023GR Specimen(s) Received Right hip bone and femoral head Fee Codes(s): 1; 05081, 96566 US RETROPERITONEAL COMPLETEo n 08-07-2023 US RETROPERITONEAL COMPLETE US RETROPERITONEAL COMPLETE Renal ultrasound, 08/06/2023. History: Renal cysts. Comparison: CT abdomen and pelvis 08/04/2023. Technique: Multiple grayscale sonographic images of the kidneys were obtained. Color Doppler imaging was used to assess blood flow characteristics. Findings: Right kidney is 13.1 x 4.7 x 5.4 cm. Cortical thickness is 8 mm. Multiple anechoic lesions with posterior acoustic enhancement consistent with simple cysts, largest in the medial kidney measuring 4.0 x 3.5 x 3.8 cm. Renal parenchymal echotexture is normal with no hydronephrosis, nephrolithiasis or solid mass. Left kidney is 11.8 x 5.6 x 6.1 cm. Cortical thickness is 11 mm. Multiple anechoic lesions with posterior acoustic enhancement consistent with simple cysts, largest in the posterior mid kidney measuring 3.2 x 3.4 x 3.3 cm. Renal parenchymal echotexture is normal with no hydronephrosis, nephrolithiasis or solid mass. Bladder is decompressed with a Elaine catheter. Ureteral jets were not visualized. IMPRESSION: * Multiple bilateral simple renal cysts require no additional evaluation. * No acute abnormality. Finalized by Tio Zambrano MD on 08/06/2023 10:28 PM Normal [facility] XR CHEST 1 VWon 08-07-2023 XR CHEST 1 VW XR CHEST 1 VW Portable chest: HISTORY: Hypoxia. Single view of the chest was obtained and compared to prior exam dated 344. Pulmonary vasculature appears somewhat congested. No pneumothorax is seen. No consolidation or effusion. Osseous appear intact. IMPRESSION: Vascular congestion. Finalized by Fareed Phillip MD on 08/07/2023 6:45 PM Normal [facility] XR CHEST 1 VW XR CHEST 1 VW XR CHEST 1 VW History: Short of breath. COPD One view study. Comparison: 08/06/2023 and 08/04/2023 Impression: * No significant interval change.Skinfold projects over portion of the left chest. No pneumothorax. No large effusion Finalized by Janet Perez MD on 08/07/2023 7:07 AM Normal [facility] XR HIP RT 2-3 VIEWS W OR WO PELVISon 08-07-2023 XR HIP RT 2-3 VIEWS W OR WO PELVIS XR HIP RT 2-3 VIEWS W OR WO PELVIS XR HIP RT 2-3 VIEWS W OR WO PELVIS HISTORY: Hemiarthroplasty. COMPARISON: 08/06/2023. IMPRESSION: Reference air kerma 3.9 mGy. Fluoroscopic guidance provided. Please see details within procedural/operative note. Finalized by Vitaly Cordoba MD on 08/07/2023 1:23 PM Normal [facility] XR PELVIS 1 OR 2 VWSon 08-06 XR PELVIS 1 OR 2 VWS XR PELVIS 1 OR 2 VW S XR PELVIS 1 OR 2 VWS HISTORY: Hemiarthroplasty. COMPARISON: 08/06/2023. IMPRESSION: 1. Status post right-sided hemiarthroplasty, no hardware complication. Expected soft tissue gas. Finalized by Vitaly Cordoba MD on 08/07/2023 1:23 PM Normal [facility] COMPLETE BLOOD COUNTon 08-05 Erythrocyte distribution width (RBC) [Ratio] 18.4 % High 11.5-15.0 [facility] Comment on above: Performed By: #### C MARISEL [facility], 64866-7 #### [facility] ([id number]) [address], [address] [place] [address] Hematocrit (Bld) [Volume fraction] 23.9 % Low 39-49 [facility] Comment on above: Performed By: #### Chelsi JOINER [facility], 83350-6 #### [facility] ([id number]) [address], [address] [place] [address] Hemoglobin (Bld) [Mass/Vol] 7.7 g/dL Low 13.0-17.0 [facility] Comment on above: Performed By: #### Chelsi JOINER [facility], 48609-0 #### [facility] ([id number]) [address], [address] [place] [address] MCH (RBC) [Entitic mass] 26.9 pg Low 27-34 [facility] Comment on above: Performed By: #### Chelsi JOINER CMP, #### [facility] ([id number]) [address], [address] [place] [address] MCHC (RBC) [Mass/Vol] 32.4 g/dL Normal 32-36 [facility] Comment on above: Performed By: #### Chelsi JOINER CMP, #### [facility] ([id number]) [address] [place] [address] MCV (RBC) [Entitic vol] 83 fL Normal 80-100 [facility] Comment on above: Performed By: #### Chelsi JOINER CMP, #### [facility] ([id number]) [address], [address] [place] [address] Platelet mean volume (Bld) [Entitic vol] 11.0 fL Normal 7-12 [facility] Comment on above: Performed By: #### Chelsi JOINER CMP, #### [facility] ([id number]) [address] [place] [address] Platelets (Bld) [#/Vol] 198 10*3/uL Normal 150-450 [facility] Comment on above: Performed By: #### Chelsi JOINER CMP, #### [facility] ([id number]) [address] [place] [address] RBC COUNT 2.87 X10E12/L Low 4.10-5.70 [facility] Comment on above: Performed By: #### Chelsi JOINER CMP, #### [facility] ([id number]) [address], [address] [place] [address] WBC (Bld) [#/Vol] 8.2 10*3/uL Normal 4.0-11.0 [facility] Comment on above: Performed By: #### Chelsi JOINER, CMP, 40319-5 #### [facility] ([id number]) [address], [address] [place] [address] COMPREHENSIVE METABOLIC PANE Angel 08-06-2023 Albumin [Mass/Vol] 3.4 g/dL Normal 3.2-5.3 [facility] Comment on above: Performed By: #### Chelsi JOINER, CMP, #### [facility] ([id number]) [address] [place] [address] ALP [Catalytic activity/Vol] 70 U/L Normal 39-130 [facility] Comment on above: Performed By: #### Chelsi JOINER CMP, 28187-6 #### [facility] ([id number]) [address] [place] [address] ALT [Catalytic activity/Vol] 8 U/L Normal 0-40 [facility] Comment on above: Performed By: #### Chelsi JOINER, CMP, 84568-7 #### [facility] ([id number]) [address] [place] [address] Anion gap [Moles/Vol] 11 mmol/L Normal 5-15 [facility] Comment on above: Performed By: #### Chelsi JOINER CMP, #### [facility] ([id number]) [address], [address] [place] [address] AST [Catalytic activity/Vol] 20 U/L Normal 0-41 [facility] Comment on above: Performed By: #### Chelsi BC, CMP, 81562-8 #### [facility] ([id number]) [address], [address] [place] [address] Bilirubin [Mass/Vol] 0.8 mg/dL Normal 0.3-1.2 [facility] Comment on above: Performed By: #### Chelsi JOINER [facility], 50950-8 #### [facility] ([id number]) [address], [address] [place] [address] Calcium [Mass/Vol] 9.3 mg/dL Normal 8.5-10.5 [facility] Comment on above: Performed By: #### Chelsi JOINER [facility], 72292-1 #### [facility] ([id number]) [address], [address] [place] [address] Chloride [Moles/Vol] 106 mmol/L Normal 98-109 [facility] Comment on above: Performed By: #### Chelsi JOINER [facility], #### [facility] ([id number]) [address], [address] [place] [address] CO2 [Moles/Vol] 24 mmol/L Normal 22-32 [facility] Comment on above: Performed By: #### Chelsi JOINER [facility], 13142-5 #### [facility] ([id number]) [address], [address] [place] [address] Creatinine [Mass/Vol] 0.59 mg/dL Low 0.60-1.30 [facility] Comment on above: Result Comment: METH OD TRACEABLE TO IDMS STANDARD Performed By: #### Chelsi JOINER CMP, 03420-3 #### [facility] ([id number]) [address], [address] [place] [address] eGFR (CKD-EPI) NON-RACE DEPENDENT >90 Normal >59 [facility] Comment on above: Result Comment: Reported eGFR is based on the CKD-EPI 2020 equation that does not use a race coefficient. Performed By: #### Chelsi JOINER CMP, #### [facility] ([id number]) [address], [address] [place] [address] Glucose [Mass/Vol] 72 mg/dL Normal 65-99 [facility] Comment on above: Performed By: #### Chelsi JOINER CMP, #### [facility] ([id number]) [address], [address] [place] [address] Potassium [Moles/Vol] 3.6 mmol/L Normal 3.5-5.0 [facility] Comment on above: Performed By: #### Chelsi JOINER, [facility], #### [facility] ([id number]) [address], [address] [place] [address] Protein [Mass/Vol] 6.4 g/dL Normal 6.0-8.0 [facility] Comment on above: Performed By: #### Chelsi JOINER, [facility], #### [facility] ([id number]) [address] [place] [address] Sodium [Moles/Vol] 141 mmol/L Normal 134-146 [facility] Comment on above: Performed By: #### Chelsi JOINER, [facility], #### [facility] ([id number]) [address] [place] [address] Urea nitrogen [Mass/Vol] 20 mg/dL Normal 5-27 [facility] Comment on above: Performed By: #### Chelsi JOINER, [facility], #### [facility] ([id number]) [address], [address] [place] [address] CRP [Mass/Vol]on 08-06-2023 C REACTIVE PROTEIN 24.9 mg/dL High 0.000-0.744 [facility] Comment on above: Performed By: #### 8 2477-1, 1988-5, 70464-4 #### [facility] ([id number]) [address] [place] [address] ESR Photometric method (Bld) [Velocity]on 08-06-2023 ESR, ERYTHROCYTE SEDIMENTATION RATE 71 mm/h High 0-20 [facility] Comment on above: Performed By: #### 8 2477-1, 1988-5, 92797-2 #### [facility] ([id number]) [address], [address] [place] [address] FL SWALLOW MOTILITY FUNCTION on 08-06-2023 FL SWALLOW MOTILITY FUNCTION FL SWALLOW MOTILITY FUNCTION FL SWALLOW MOTILITY FUNCTION INDICATION: Oropharyngeal dysphagia COMPARISON: None. TECHNIQUE: Video fluoroscopic swallow study was performed in conjunction with speech pathologist. Barium contrast materials of varying consistencies administered. FINDINGS: Fluoroscopy time: 1 minute 28 seconds Dose (Reference air kerma): 1.28 mGy Runs: 8 Fluoroscopic spot films: Zero Thin: Penetration. Mildly thick: Penetration. Moderately thick: Penetration. Applesauce: No penetration or aspiration. IMPRESSION: * Penetration with thin, mildly thick, and moderately thick liquids. * Please correlate with dedicated speech pathology report for additional details and recommendations. Approved by Resident: Manolo Mari MD on 08/06/2023 1:22 PM IKyle MD have personally reviewed the image(s) and agree with and/or edited the report Finalized by Kyle Curtis MD on 08/06/2023 1:24 PM Normal [facility] HGB AND HCTon 08-06-2023 Hematocrit (Bld) [Volume fraction] 25.0 % Low 39-49 [facility] Comment on above: Performed By: #### C CEDRIC JOINER, 80589-6 #### [facility] ([id number]) [address], [address] [place] [address] Hemoglobin (Bld) [Mass/Vol] 8.2 g/dL Low 13.0-17.0 [facility] Comment on above: Performed By: #### C CEDRIC JOINER, 68404-5 #### [facility] ([id number]) [address], [address] [place] [address] MAGNESIUMon 08-06-2023 Magnesium [Mass/Vol] 2.1 mg/dL Normal 1.8-2.6 [facility] Comment on above: Performed By: #### C CEDRIC JOINER, 58748-8 #### [facility] ([id number]) [address], [address] [place] [address] Magnesium [Mass/Vol] 1.6 mg/dL Low 1.8-2.6 [facility] Comment on above: Performed By: #### C , [facility], 57440-7 #### [facility] ([id number]) [address] [place] [address] Procalcitonin IA [Mass/Vol]o n 08-06-2023 PROCALCITONIN 0.21 ng/mL High <0.05 [facility] Comment on above: Result Comment: NOTE <0.50 ng/mL - Low risk of severe sepsis and/or septic shock. <2.00 ng/mL - Recommend retesting within 6-24 hours. >2.00 ng/mL - High risk of sepsis and/or septic shock. Performed By: #### 8 2477-1, 1988-5, 30262-4 #### [facility] ([id number]) [address], [address] [place] [address] RESP PATHOGENS/BWSQ-MhC-3fw 08-06-2023 Respiratory pathogens DNA and RNA panel ARIEL+non-probe (Nph) SPECIMEN SOURCE NASO PHARYNX ADENOVIRUS Not detected (qualifier value) CORONAVIRUS 229E Not detected (qualifier value) CORONAVIRUS HKU1 Not detected (qualifier value) CORONAVIRUS NL63 Not detected (qualifier value) CORONAVIRUS OC43 Not detected (qualifier value) HUMAN METAPNEUVIRUS Not detected (qualifier value) RHINO/ENTEROVIRUS Not detected (qualifier value) INFLUENZA A Not detected (qualifier value) INFLUENZA B Not detected (qualifier value) PARAINFLUENZA 1 Not detected (qualifier value) PARAINFLUENZA 2 Not detected (qualifier value) PARAINFLUENZA 3 Not detected (qualifier value) PARAINFLUENZA 4 Not detected (qualifier value) RESP SYNCYTIAL VIRUS Not detected (qualifier value) BORD PARAPERTUSSIS Not detected (qualifier value) BORDETELLA PERTUSSIS Not detected (qualifier value) CHLAM.PNEUMONIAE Not detected (qualifier value) MYCO. PNEUMONIAE Not detected (qualifier value) SARS CoV 2 Not detected (qualifier value) NOTE The BioFire Respiratory Panel 2.1 (RP2.1) is a multiplexed nucleic acid test intended for the simultaneous qualitative detection and differentiation of nucleic acid from multiple viral and bacterial respiratory organisms, including nucleic acid from Severe Acute Respiratory Syndrome Coronavirus 2 (SARS-CoV-2), in nasopharyngeal swabs obtained from individuals suspected of COVID-19 by their healthcare provider. Testing is limited to laboratories certified under the Clinical Laboratory Improvement Amendments of 1988 (CLIA), to perform high complexity or moderate complexity tests. SARS-CoV-2 RNA and nucleic acids from the other respiratory viral and bacterial organisms identified by this test are generally detectable in nasopharyngeal swabs during the acute phase of infection. The detection and identification of specific viral and bacterial nucleic acids from individuals exhibiting signs and/or symptoms of respiratory infection is indicative of the presence of the identified microorganism and aids in the diagnosis of respiratory infection if used in conjunction with other clinical and epidemiological information. Positive results are indicative of the presence of the identified organism, but do not rule out co-infection with other pathogens. The agent(s) detected by the BioFire RP2.1 may not be the definite cause of disease and clinical correlation with patient history and other diagnostic information is necessary to determine patient infection status. Negative results in the setting of a respiratory illness may be due to infection with pathogens not detected by this test, or lower respiratory tract infection that may not be detected by a nasopharyngeal specimen. Negative results do not preclude SARS-CoV-2 infection and should not be used as the sole basis for patient management decisions. Negative DOLORES-CoV-2 results must be combined with clinical observations, patient history and epidemiological information. Negative results for other organisms identified by the test may require additional laboratory testing when evaluating a patient with possible respiratory tract infection. Normal [facility] Comment on above: Performed By: #### 8 2159-5 #### [facility] ([id number]) [address] [place] [address], [address] [place] [address] US EXT NON-VASC RT LIMITEDon 08-06-2023 US EXT NON-VASC RT LIMITED US EXT NON-VASC RT LIMITED EXAM: US EXT NON-VASC RT LIMITED CLINICAL INDICATIONS: possible fluid collection right gluteal subcutaneous soft tissue FINDINGS/IMPRESSION: Superficial ultrasound of the right gluteal soft tissues demonstrates mild edema without focal hematoma or collection. Finalized by Deshawn Walker on 08/06/2023 4:28 PM Normal [facility] XR CHEST 1 VWon 08-06-2023 XR CHEST 1 VW XR CHEST 1 VW Single view chest History:copd, surg clearance Difficulty breathing, shortness of breath Comparison: 08/04/2023 Findings: Single portable view of the chest. Patient rotation towards the left. Stable cardiomediastinal silhouette. No definitive focal opacity, effusion or pneumothorax. Impression: No definitive acute cardiopulmonary process. Finalized by Kyle Curtis MD on 08/06/2023 1:02 PM Normal [facility] XR HIP RT 2-3 VIEWS W OR WO PELVISon 08-06-2023 XR HIP RT 2-3 VIEWS W OR WO PELVIS XR HIP RT 2-3 VIEWS W OR WO PELVIS CLINICAL INFORMATION: pain TECHNIQUE: XR HIP RT 2-3 VIEWS W OR WO PELVIS 3 views right hip were obtained. There is right subcapital femoral neck fracture with displacement. Osseous structures appear somewhat osteopenic. Deformity of the right ischial and inferior pubic ramus appears unchanged in comparison with 08/05/2023 age-indeterminate right superior pubic rami fractures. IMPRESSION: Mildly displaced right subcapital femoral neck fracture. Age-indeterminate right superior and inferior pubic ramus fractures. Finalized by Fareed Phillip MD on 08/06/2023 1:25 PM Normal [facility] XR PELVIS MIN 3 VWSon 2023 XR PELVIS MIN 3 VWS XR PELVIS MIN 3 VWS CLINICAL INFORMATION: pain TECHNIQUE: XR PELVIS MIN 3 VWS 2 views of the pelvis are obtained. There is age indeterminant fracture right superior and inferior pubic ramus. Right subcapital femoral neck fracture noted with displacement. Osseous structures are osteopenic. IMPRESSION: Right subcapital femoral neck fracture. Age-indeterminate right superior and inferior pubic rami fractures Finalized by Fareed Phillip MD on 08/06/2023 1:26 PM Normal [facility] COMPLETE BLOOD COUNTon 08-04 Erythrocyte distribution width (RBC) [Ratio] 18.3 % High 11.5-15.0 [facility] Comment on above: Performed By: #### C BCA, BMP, 3040-3, 18971-0, LIVR, 98023-4, PINR, 82080-6, THYR #### [facility] ([id number]) [address] [place] [address] 27565 Hematocrit (Bld) [Volume fraction] 24.4 % Low 39-49 [facility] Comment on above: Performed By: #### C BCA, BMP, 3040-3, 18431-0, LIVR, 61715-3, PINR, 88046-8, THYR #### [facility] ([id number]) [address] [place] [address] 28218 Hemoglobin (Bld) [Mass/Vol] 8.0 g/dL Low 13.0-17.0 [facility] Comment on above: Performed By: #### C BCA, BMP, 3040-3, 30461-2, LIVR, 98258-5, PINR, 21327-8, THYR #### [facility] ([id number]) [address] [place] [address] 22611 MCH (RBC) [Entitic mass] 27.0 pg Normal 27-34 [facility] Comment on above: Performed By: #### C BCA, BMP, 3040-3, 73857-7, LIVR, 27793-0, PINR, 71194-0, THYR #### [facility] ([id number]) [address] [place] [address] 74658 MCHC (RBC) [Mass/Vol] 32.9 g/dL Normal 32-36 [facility] Comment on above: Performed By: #### C BCA, BMP, 3040-3, 42874-6, LIVR, 42562-3, PINR, 65912-8, THYR #### [facility] ([id number]) [address] [place] [address] 92420 MCV (RBC) [Entitic vol] 82 fL Normal 80-100 [facility] Comment on above: Performed By: #### C BCA, BMP, 3040-3, 23283-8, LIVR, 79044-4, PINR, 84075-0, THYR #### [facility] ([id number]) [address] [place] [address] 81990 Platelet mean volume (Bld) [Entitic vol] 11.0 fL Normal 7-12 [facility] Comment on above: Performed By: #### C BCA, BMP, 3040-3, 16745-1, LIVR, 83842-8, PINR, 35520-8, THYR #### [facility] ([id number]) [address] [place] [address] 87621 Platelets (Bld) [#/Vol] 193 10*3/uL Normal 150-450 [facility] Comment on above: Performed By: #### C BCA, BMP, 3040-3, 93343-3, LIVR, 68377-6, PINR, 18711-3, THYR #### [facility] ([id number]) [address] [place] [address] 12202 RBC COUNT 2.97 X10E12/L Low 4.10-5.70 [facility] Comment on above: Performed By: #### C BCA, BMP, 3040-3, 29738-5, LIVR, 95629-1, PINR, 73002-1, THYR #### [facility] ([id number]) [address] [place] [address] 92961 WBC (Bld) [#/Vol] 10.4 10*3/uL Normal 4.0-11.0 [facility] Comment on above: Performed By: #### C BCA, BMP, 3040-3, 06443-8, LIVR, 85049-1, PINR, 98045-8, THYR #### [facility] ([id number]) [address] [place] [address] 81224 COMPREHENSIVE METABOLIC PANE Angel 08-05-2023 Albumin [Mass/Vol] 3.7 g/dL Normal 3.2-5.3 [facility] Comment on above: Performed By: #### C BCA, BMP, 3040-3, 83979-5, LIVR, 19409-6, PINR, 02213-8, THYR #### [facility] ([id number]) [address] [place] [address] 64809 ALP [Catalytic activity/Vol] 72 U/L Normal 39-130 [facility] Comment on above: Performed By: #### C BCA, BMP, 3040-3, 50882-3, LIVR, 74262-2, PINR, 81958-9, THYR #### [facility] ([id number]) [address] [place] [address] 29779 ALT [Catalytic activity/Vol] 16 U/L Normal 0-40 [facility] Comment on above: Performed By: #### C BCA, BMP, 3040-3, 42951-1, LIVR, 01862-5, PINR, 34388-8, THYR #### [facility] ([id number]) [address] [place] [address] 55659 Anion gap [Moles/Vol] 11 mmol/L Normal 5-15 [facility] Comment on above: Performed By: #### C BCA, BMP, 3040-3, 82963-4, LIVR, 95881-1, PINR, 54560-8, THYR #### [facility] ([id number]) [address] [place] [address] 04835 AST [Catalytic activity/Vol] 25 U/L Normal 0-41 [facility] Comment on above: Performed By: #### C BCA, BMP, 3040-3, 66993-2, LIVR, 41643-5, PINR, 31578-8, THYR #### [facility] ([id number]) [address] [place] [address] 67865 Bilirubin [Mass/Vol] 0.9 mg/dL Normal 0.3-1.2 [facility] Comment on above: Performed By: #### C BCA, BMP, 3040-3, 06639-3, LIVR, 09119-8, PINR, 18046-5, THYR #### [facility] ([id number]) [address] [place] [address] 62473 Calcium [Mass/Vol] 9.6 mg/dL Normal 8.5-10.5 [facility] Comment on above: Performed By: #### C BCA, BMP, 3040-3, 49128-3, LIVR, 20112-0, PINR, 03309-7, THYR #### [facility] ([id number]) [address] [place] [address] 54324 Chloride [Moles/Vol] 99 mmol/L Normal 98-109 [facility] Comment on above: Performed By: #### C BCA, BMP, 3040-3, 55538-3, LIVR, 52027-9, PINR, 24090-9, THYR #### [facility] ([id number]) [address] [place] [address] 15548 CO2 [Moles/Vol] 25 mmol/L Normal 22-32 [facility] Comment on above: Performed By: #### C BCA, BMP, 3040-3, 32984-9, LIVR, 66482-2, PINR, 24074-7, THYR #### [facility] ([id number]) [address] [place] [address] 72704 Creatinine [Mass/Vol] 0.89 mg/dL Normal 0.70-1.20 [facility] Comment on above: Result Comment: METH OD TRACEABLE TO IDMS STANDARD Performed By: #### C BCA, BMP, 3040-3, 96616-9, LIVR, 68007-9, PINR, 12674-4, THYR #### [facility] ([id number]) [address] [place] [address] 84794 eGFR (CKD-EPI) NON-RACE DEPENDENT >90 Normal >59 [facility] Comment on above: Result Comment: Reported eGFR is based on the CKD-EPI 2020 equation that does not use a race coefficient. Performed By: #### C BCA, BMP, 3040-3, 60135-3, LIVR, 08373-5, PINR, 69416-5, THYR #### [facility] ([id number]) [address] [place] [address] 17513 Glucose [Mass/Vol] 110 mg/dL High 65-99 [facility] Comment on above: Performed By: #### C BCA, BMP, 3040-3, 66975-9, LIVR, 37656-1, PINR, 72861-4, THYR #### [facility] ([id number]) [address] [place] [address] 85728 Potassium [Moles/Vol] 3.7 mmol/L Normal 3.5-5.0 [facility] Comment on above: Performed By: #### C BCA, BMP, 3040-3, 73926-4, LIVR, 93722-7, PINR, 15059-4, THYR #### [facility] ([id number]) [address] [place] [address] 74059 Protein [Mass/Vol] 7.0 g/dL Normal 6.0-8.0 [facility] Comment on above: Performed By: #### C BCA, BMP, 3040-3, 09449-9, LIVR, 65876-0, PINR, 87099-7, THYR #### [facility] ([id number]) [address] [place] [address] Sodium [Moles/Vol] 135 mmol/L Normal 134-146 [facility] Comment on above: Performed By: #### C BCA, BMP, 3040-3, 35737-1, LIVR, 67481-7, PINR, 43392-3, THYR #### [facility] ([id number]) [address] [place] [address] 66054 Urea nitrogen [Mass/Vol] 23 mg/dL Normal 5-27 [facility] Comment on above: Performed By: #### C BCA, BMP, 3040-3, 23557-1, LIVR, 57475-4, PINR, 74920-5, THYR #### [facility] ([id number]) [address] [place] [address] 25592 CRP [Mass/Vol]on 08-05-2023 C REACTIVE PROTEIN 21.1 mg/dL High 0.000-0.744 [facility] Comment on above: Performed By: #### C BCA, BMP, 3040-3, 25769-8, LIVR, 61352-3, PINR, 30039-8, THYR #### [facility] ([id number]) [address] [place] [address], [place] [address] ESR Photometric method (Bld) [Velocity]on 08-05-2023 ESR, ERYTHROCYTE SEDIMENTATION RATE 47 mm/h High 0-20 [facility] Comment on above: Performed By: #### C BCA, BMP, 3040-3, 80735-5, LIVR, 55251-6, PINR, 26843-7, THYR #### [facility] ([id number]) [address] [place] [address] 15762 FERRITINon 08-05-2023 Ferritin [Mass/Vol] 39 ng/mL Normal 24-336 [facility] Comment on above: Performed By: #### C BCA, BMP, 3040-3, 01080-0, LIVR, 40703-1, PINR, 44240-3, THYR #### [facility] ([id number]) [address] [place] [address] 74960 Folate [Mass/Vol]on 08-05-19 24 FOLIC ACID >25.0 Normal >5.8 [facility] Comment on above: Result Comment: NEW REFERENCE RANGE Performed By: #### C BCA, BMP, 3040-3, 48544-3, LIVR, 63831-3, PINR, 34280-3, THYR #### [facility] ([id number]) [address] [place] [address] 57636 IRON PROFILEon 08-05-2023 Iron [Mass/Vol] 14 ug/dL Low 50-212 [facility] Comment on above: Performed By: #### C BCA, BMP, 3040-3, 88643-3, LIVR, 42397-2, PINR, 38752-3, THYR #### [facility] ([id number]) [address] [place] [address] 98861 IRON BINDING 354 ug/dL Normal 250-425 [facility] Comment on above: Performed By: #### C BCA, BMP, 3040-3, 15460-8, LIVR, 41774-4, PINR, 15571-0, THYR #### [facility] ([id number]) [address] [place] [address] 65782 IRON SATURATION 4 % SATURATION Low 20-50 [facility] Comment on above: Performed By: #### C BCA, BMP, 3040-3, 62863-7, LIVR, 92076-2, PINR, 91137-0, THYR #### [facility] ([id number]) [address] [place] [address] 17407 MAGNESIUMon 08-05-2023 Magnesium [Mass/Vol] 1.6 mg/dL Low 1.8-2.6 [facility] Comment on above: Performed By: #### C BCA, BMP, 3040-3, 63104-3, LIVR, 07309-9, PINR, 70319-5, THYR #### [facility] ([id number]) [address] [place] [address] 82014 Osmolality [Osmolality]on OSMOLALITY 285 mOsm/kg H2 Normal 280-300 [facility] Comment on above: Performed By: #### C BCA, BMP, 3040-3, 84685-9, LIVR, 01996-5, PINR, 74921-7, THYR #### [facility] ([id number]) [address] [place] [address] 41087 Parathyrin.intact [Mass/Vol] on 08-05-2023 PTH INTACT 45 pg/mL Normal 12-88 [facility] Comment on above: Performed By: #### C BCA, BMP, 3040-3, 54266-3, LIVR, 27260-0, PINR, 84007-2, THYR #### [facility] ([id number]) [address] [place] [address] 60945 Prealbumin IA [Mass/Vol]on 0 08-05-2023 Prealbumin [Mass/Vol] 16 mg/dL Low 18-45 [facility] Comment on above: Performed By: #### C BCA, BMP, 3040-3, 93067-7, LIVR, 30922-3, PINR, 49044-6, THYR #### [facility] ([id number]) [address] [place] [address] 24803 Reticulocytes/100 RBC (Bld)o n 08-05-2023 RETICULOCYTE COUNT 1.8 % Normal 0.4-2.2 [facility] Comment on above: Performed By: #### C BCA, BMP, 3040-3, 69425-4, LIVR, 84988-0, PINR, 94200-0, THYR #### [facility] ([id number]) [address] [place] [address] 00533 VITAMIN B12on 08-05-2023 Cobalamin (Vitamin B12) [Mass/Vol] 232 pg/mL Normal 180-914 [facility] Comment on above: Performed By: #### C BCA, BMP, 3040-3, 14303-0, LIVR, 51013-4, PINR, 36311-8, THYR #### [facility] ([id number]) [address] [place] [address] Vitamin D+Metabolites [Mass/ Vol]on 08-05-2023 VITAMIN D 25 HYD TOT 41.2 ng/mL Normal 30-100 [facility] Comment on above: Result Comment: Vitamin D status 25 [place] Vitamin D Deficiency <20 ng/mL Insufficiency 20-29 ng/mL Sufficiency 30-100 ng/mL Toxicity >100 ng/mL NOTE: A pediatric reference range has not been established by the intake assessor of this kit. The [place] [employer] recommends a Vitamin D level of = or >20ng/mL in infants and children. Performed By: #### C BCA, BMP, 3040-3, 35256-1, LIVR, 89943-3, PINR, 72599-0, THYR #### [facility] ([id number]) [address] [place] [address] XR FEMUR RT 2+ VIEWSon 08-04 XR FEMUR RT 2+ VIEWS XR FEMUR RT 2+ VIEW S XR FEMUR RT 2+ VIEWS Clinical history:Fracture acute leg pain Comparison: None. Findings: Degenerative changes of the right hip in the right knee. There is heavy vascular calcifications and chondrocalcinosis. Right femoral neck fracture, likely chronic, noted. No pelvic fracture is not well-visualized on this radiograph. Healing right inferior pubic ramus and right acetabular fracture. Impression: Chronic appearing displaced and impacted right femoral neck fracture. Subacute healing right inferior pubic ramus and right acetabular fracture. Finalized by Kyle Curtis MD on 08/05/2023 11:11 AM Normal [facility] XR PELVIS MIN 3 VWSon 2023 XR PELVIS MIN 3 VWS XR PELVIS MIN 3 VWS XR PELVIS MIN 3 VWS Clinical history:Fracture pelvic pain Comparison: None. Impression: Evaluation is compromised by positioning. There is healing bilateral sacroiliac fractures with healing subacute right inferior pubic ramus right acetabular fracture. Right femoral neck fracture is noted. Finalized by Kyle Curtis MD on 08/05/2023 11:11 AM Normal [facility] BASIC METABOLIC PANLon 08-03 Anion gap [Moles/Vol] 5 mmol/L Normal 5-15 [facility] Comment on above: Performed By: #### C BCA, BMP, 3040-3, 74654-1, LIVR, 54978-3, PINR, 43878-8, THYR #### [facility] ([id number]) [address] [place] [address] 32488 Calcium [Mass/Vol] 9.0 mg/dL Normal 8.5-10.5 [facility] Comment on above: Performed By: #### C BCA, BMP, 3040-3, 44807-8, LIVR, 12347-0, PINR, 36446-5, THYR #### [facility] ([id number]) [address] [place] [address] 98239 Chloride [Moles/Vol] 98 mmol/L Normal 98-109 [facility] Comment on above: Performed By: #### C BCA, BMP, 3040-3, 94170-1, LIVR, 83392-7, PINR, 24451-7, THYR #### [facility] ([id number]) [address] [place] [address] 95110 CO2 [Moles/Vol] 27 mmol/L Normal 22-32 [facility] Comment on above: Performed By: #### C BCA, BMP, 3040-3, 36800-0, LIVR, 14360-1, PINR, 37751-3, THYR #### [facility] ([id number]) [address] [place] [address] 58686 Creatinine [Mass/Vol] 0.70 mg/dL Normal 0.70-1.20 [facility] Comment on above: Result Comment: METH OD TRACEABLE TO IDMS STANDARD Performed By: #### C BCA, BMP, 3040-3, 92488-6, LIVR, 21061-3, PINR, 00015-7, THYR #### [facility] ([id number]) [address] [place] [address] 74407 eGFR (CKD-EPI) NON-RACE DEPENDENT >90 Normal >59 [facility] Comment on above: Result Comment: Reported eGFR is based on the CKD-EPI 2020 equation that does not use a race coefficient. Performed By: #### C BCA, BMP, 3040-3, 73225-6, LIVR, 64311-5, PINR, 06354-9, THYR #### [facility] ([id number]) [address] [place] [address] 58968 Glucose [Mass/Vol] 117 mg/dL High 65-99 [facility] Comment on above: Performed By: #### C BCA, BMP, 3040-3, 12699-8, LIVR, 09041-7, PINR, 37344-7, THYR #### [facility] ([id number]) [address] [place] [address] 63036 Potassium [Moles/Vol] 3.3 mmol/L Low 3.5-5.0 [facility] Comment on above: Performed By: #### C BCA, BMP, 3040-3, 33451-8, LIVR, 58662-5, PINR, 32808-6, THYR #### [facility] ([id number]) [address] [place] [address] 60173 Sodium [Moles/Vol] 130 mmol/L Low 134-146 [facility] Comment on above: Performed By: #### C BCA, BMP, 3040-3, 05387-5, LIVR, 23946-6, PINR, 85092-2, THYR #### [facility] ([id number]) [address] [place] [address] 64000 Urea nitrogen [Mass/Vol] 23 mg/dL Normal 5-27 [facility] Comment on above: Performed By: #### C BCA, BMP, 3040-3, 49746-3, LIVR, 28002-6, PINR, 90823-4, THYR #### [facility] ([id number]) [address] [place] [address] 50724 BLOOD CULTUREon 08-04-2023 Bacteria identified Aer cx Nom (Bld) CULTURE RESULTS NO GROWTH 5 DAYS Normal [facility] Bacteria identified Aer cx Nom (Bld) CULTURE RESULTS NO GROWTH 5 DAYS Normal [facility] CBC AND AUTO DIFFon 08-04-19 24 ABSOLUTE BASOPHIL 0.0 X10E9/L Normal 0.0-0.2 [facility] Comment on above: Performed By: #### C BCA, BMP, 3040-3, 55160-0, LIVR, 30128-2, PINR, 53782-6, THYR #### [facility] ([id number]) [address] [place] [address] 34844 ABSOLUTE NEUTROPHIL 8.4 X10E9/L High 1.5-6.6 [facility] Comment on above: Performed By: #### C BCA, BMP, 3040-3, 14496-6, LIVR, 64396-6, PINR, 32231-0, THYR #### [facility] ([id number]) [address] [place] [address] 65883 Basophils/100 WBC (Bld) 0.4 % Normal [facility] Comment on above: Performed By: #### C BCA, BMP, 3040-3, 68944-4, LIVR, 56189-1, PINR, 91282-5, THYR #### [facility] ([id number]) [address] [place] [address] 50731 Eosinophils (Bld) [#/Vol] 0.1 10*3/uL Normal 0.0-0.4 [facility] Comment on above: Performed By: #### C BCA, BMP, 3040-3, 03362-9, LIVR, 28066-4, PINR, 48501-2, THYR #### [facility] ([id number]) [address] [place] [address] 88169 Eosinophils/100 WBC (Bld) 0.6 % Normal [facility] Comment on above: Performed By: #### C BCA, BMP, 3040-3, 02896-6, LIVR, 55034-6, PINR, 28078-8, THYR #### [facility] ([id number]) [address] [place] [address] 34281 Erythrocyte distribution width (RBC) [Ratio] 18.0 % High 11.5-15.0 [facility] Comment on above: Performed By: #### C BCA, BMP, 3040-3, 59037-0, LIVR, 31748-6, PINR, 94300-2, THYR #### [facility] ([id number]) [address] [place] [address] 80293 Hematocrit (Bld) [Volume fraction] 24.7 % Low 39-49 [facility] Comment on above: Performed By: #### C BCA, BMP, 3040-3, 46398-0, LIVR, 97392-5, PINR, 28969-5, THYR #### [facility] ([id number]) [address] [place] [address] 77546 Hemoglobin (Bld) [Mass/Vol] 8.4 g/dL Low 13.0-17.0 [facility] Comment on above: Performed By: #### C BCA, BMP, 3040-3, 20657-2, LIVR, 05745-1, PINR, 90684-8, THYR #### [facility] ([id number]) [address] [place] [address] 59328 Lymphocytes (Bld) [#/Vol] 0.5 10*3/uL Low 1.0-3.5 [facility] Comment on above: Performed By: #### C BCA, BMP, 3040-3, 33589-2, LIVR, 64118-4, PINR, 18861-2, THYR #### [facility] ([id number]) [address] [place] [address] 58774 Lymphocytes/100 WBC (Bld) 5.3 % Normal [facility] Comment on above: Performed By: #### C BCA, BMP, 3040-3, 41705-2, LIVR, 11344-4, PINR, 60159-0, THYR #### [facility] ([id number]) [address] [place] [address] 26720 MCH (RBC) [Entitic mass] 27.6 pg Normal 27-34 [facility] Comment on above: Performed By: #### C BCA, BMP, 3040-3, 52899-6, LIVR, 51602-7, PINR, 33140-5, THYR #### [facility] ([id number]) [address] [place] [address] 76527 MCHC (RBC) [Mass/Vol] 34.1 g/dL Normal 32-36 [facility] Comment on above: Performed By: #### C BCA, BMP, 3040-3, 93787-5, LIVR, 03604-5, PINR, 97157-8, THYR #### [facility] ([id number]) [address] [place] [address] 95238 MCV (RBC) [Entitic vol] 81 fL Normal 80-100 [facility] Comment on above: Performed By: #### C BCA, BMP, 3040-3, 49619-7, LIVR, 05395-9, PINR, 21830-4, THYR #### [facility] ([id number]) [address] [place] [address] 35156 Monocytes (Bld) [#/Vol] 1.0 10*3/uL High 0-0.9 [facility] Comment on above: Performed By: #### C BCA, BMP, 3040-3, 04909-6, LIVR, 00200-5, PINR, 83009-5, THYR #### [facility] ([id number]) [address] [place] [address] 83890 Monocytes/100 WBC (Bld) 10.3 % Normal [facility] Comment on above: Performed By: #### C BCA, BMP, 3040-3, 04150-4, LIVR, 08732-8, PINR, 26133-8, THYR #### [facility] ([id number]) [address] [place] [address] 82409 Neutrophils/100 WBC (Bld) 83.4 % Normal [facility] Comment on above: Performed By: #### C BCA, BMP, 3040-3, 48845-9, LIVR, 56545-9, PINR, 66145-5, THYR #### [facility] ([id number]) [address] [place] [address] [place] [address] Platelet mean volume (Bld) [Entitic vol] 10.4 fL Normal 7-12 [facility] Comment on above: Performed By: #### C BCA, BMP, 3040-3, 84232-6, LIVR, 39103-2, PINR, 08584-1, THYR #### [facility] ([id number]) [address] [place] [address] Platelets (Bld) [#/Vol] 199 10*3/uL Normal 150-450 [facility] Comment on above: Performed By: #### C BCA, BMP, 3040-3, 41888-0, LIVR, 57296-1, PINR, 13157-5, THYR #### [facility] ([id number]) [address] [place] [address] RBC COUNT 3.05 X10E12/L Low 4.10-5.70 [facility] Comment on above: Performed By: #### C BCA, BMP, 3040-3, 82521-7, LIVR, 95400-6, PINR, 30967-2, THYR #### [facility] ([id number]) [address] [place] [address] WBC (Bld) [#/Vol] 10.0 10*3/uL Normal 4.0-11.0 [facility] Comment on above: Performed By: #### C BCA, BMP, 3040-3, 01550-2, LIVR, 06582-2, PINR, 19564-7, THYR #### [facility] ([id number]) [address] [place] [id number] ABDOMEN AND PELVIS W CONT on 08-04-2023 CT ABDOMEN AND PELVIS W CONT CT ABDOMEN AND PELVIS W CONT CLINICAL INFORMATION: Abdominal pain after blunt abdominal trauma. Transient alteration of awareness. COMPARISON: None TECHNIQUE: CT abdomen and pelvis with intravenous contrast. All CT scans at this facility use dose modulation, iterative reconstruction, and/or weight based dosing when appropriate to reduce radiation dose to as low as reasonably achievable. FINDINGS: Assessment is limited due to motion artifact. LOWER CHEST: Linear scarring at the lung bases. The heart is not enlarged. No significant pericardial effusion. LIVER AND BILIARY: The liver is unremarkable. No focal hepatic lesions. The gallbladder is unremarkable. No biliary ductal dilatation. PANCREAS: Incidental pancreatic cystic lesion measuring 1.7 cm with no worrisome features. Communication between the cyst and the main pancreatic duct cannot be determined. Additional cystic changes at the tail of pancreas. No priors for comparison. SPLEEN: Within normal limits. ADRENALS: Within normal limits. KIDNEYS, URETERS, AND BLADDER: Multiple bilateral simple renal cyst requiring additional imaging follow-up. No collecting system dilatation or calculus. Diffuse bladder wall thickening, correlate with urinalysis. Left midpole renal lesion not compatible simple cyst with an attenuation of 50 Hounsfield units. This measures approximately 1.1 cm. GI TRACT AND PERITONEUM: No free air or significant free fluid. Multiple prominent air-filled loops of small bowel measuring up to 3.5 cm likely ileus. No significant inflammatory changes. The large bowel is nondilated. Scattered sigmoid diverticula without CT evidence of diverticulitis. The appendix is unremarkable. VASCULATURE: The abdominal aorta is nonaneurysmal. Diffuse abdominal vascular calcifications. LYMPH NODES: Within normal limits. REPRODUCTIVE ORGANS: Dystrophic calcifications of the prostate. MUSCULOSKELETAL: No acute osseous abnormalities. Degenerative changes of the spine. There is subcutaneous soft tissue swelling and edema and a right gluteal subcutaneous hematoma noted which measures 2.9 x 6.0 cm.. Chronic appearing fracture of the right acetabulum and right femoral neck with chronic bilateral sacral insufficiency fractures and right inferior pubic ramus chronic fracture. There is a subcutaneous low density lesion in the more medial gluteal subcutaneous soft tissues on the right measuring 6.6 x 3.2 cm. IMPRESSION: Assessment limited due to motion artifact. * Multiple prominent air-filled loops of small bowel measuring up to 3.5 cm likely representing ileus. * Diffuse bladder wall thickening and possible cystitis, correlate with urinalysis. * Colonic diverticulosis without CT evidence of diverticulitis. * Incidental pancreatic cystic lesion measuring 1.7 cm. Recommend imaging follow-up with contrast-enhanced MRI or pancreas-protocol CT every 6 months for up to 2 years. * Left renal lesion not compatible with a simple cyst as above. Renal ultrasound recommended for further assessment. * 17 stranding and edema with a small subcutaneous hematoma overlying the right greater trochanter. * Chronic healing fractures of the right femoral neck, right acetabulum, right inferior pubic ramus and the bilateral sacral ala. * There is a subcutaneous collection seen in the right gluteal subcutaneous soft tissues posterior medially from the hematoma which could relate to prior trauma or fluid collection. Nonemergent ultrasound recommended for further assessment. Dada CASTILLO, et al. Management of Incidental Pancreatic Cysts: A White Paper of the ACR Incidental Findings Committee. J Am Melissa Radiol 2017;14:911-923. Approved by Resident Torres Bell MD on 08/04/2023 8:28 PM I, Kyle Curtis MD have personally reviewed the image(s) and agree with and/or edited the report Finalized by Kyle Curtis MD on 08/04/2023 9:13 PM Normal [facility] CT BRAIN WO CONTon 4 CT BRAIN WO CONT CT BRAIN WO CONT STUDY: CT HEAD WITHOUT CONTRAST CLINICAL HISTORY: Head trauma, minor (Age >= 65y) acute head pain and head trauma COMPARISON: None. TECHNIQUE: CT head was performed without contrast utilizing 2.5 mm axial reconstruction with images reviewed in bone and brain windows. Automated exposure control was utilized. FINDINGS: There is no intracranial mass, mass effect or shift of midline structures. No extra-axial fluid collection. [place]-white differentiation is preserved. There is mild motion artifact compromising assessment. There is mild generalized age-related brain volume loss and compensatory enlargement of cortical sulci and ventricular system. No depressed or widely calvarial fracture. Paranasal sinuses appear well aerated. Please note, MRI is more sensitive for the evaluation of an acute or occult process. IMPRESSION: 1. No evidence of an acute intracranial process. All CT scans at this facility use dose modulation, iterative reconstruction, and/or weight based dosing when appropriate to reduce radiation dose to as low as reasonably achievable. Finalized by Kyle Curtis MD on 08/04/2023 8:26 PM Normal [facility] LIPASEon 08-04-2023 Lipase [Catalytic activity/Vol] 29 U/L Normal 17-40 [facility] Comment on above: Performed By: #### C BCA, BMP, 3040-3, 67672-3, LIVR, 17897-6, PINR, 31097-5, THYR #### [facility] ([id number]) [address] [place] [address], [place] [address] LIVER PANELon 08-04-2023 Albumin [Mass/Vol] 3.8 g/dL Normal 3.2-5.3 [facility] Comment on above: Performed By: #### C BCA, BMP, 3040-3, 10789-1, LIVR, 89299-2, PINR, 08312-1, THYR #### [facility] ([id number]) [address] [place] [address] 11314 ALP [Catalytic activity/Vol] 78 U/L Normal 39-130 [facility] Comment on above: Performed By: #### C BCA, BMP, 3040-3, 28363-6, LIVR, 99910-8, PINR, 55247-2, THYR #### [facility] ([id number]) [address] [place] [address] 60395 ALT [Catalytic activity/Vol] 16 U/L Normal 0-40 [facility] Comment on above: Performed By: #### C BCA, BMP, 3040-3, 76556-2, LIVR, 78891-2, PINR, 61722-5, THYR #### [facility] ([id number]) [address] [place] [address] 39161 AST [Catalytic activity/Vol] 23 U/L Normal 0-41 [facility] Comment on above: Performed By: #### C BCA, BMP, 3040-3, 07435-5, LIVR, 81689-1, PINR, 18070-2, THYR #### [facility] ([id number]) [address] [place] [address] 36562 Bilirubin [Mass/Vol] 0.9 mg/dL Normal 0.3-1.2 [facility] Comment on above: Performed By: #### C BCA, BMP, 3040-3, 87364-1, LIVR, 76181-1, PINR, 55361-7, THYR #### [facility] ([id number]) [address] [place] [address] 26339 Bilirubin.direct [Mass/Vol] 0.2 mg/dL Normal 0.0-0.4 [facility] Comment on above: Performed By: #### C BCA, BMP, 3040-3, 80080-8, LIVR, 90831-8, PINR, 75816-4, THYR #### [facility] ([id number]) [address] [place] [address] 65103 Protein [Mass/Vol] 7.2 g/dL Normal 6.0-8.0 [facility] Comment on above: Performed By: #### C BCA, BMP, 3040-3, 00163-3, LIVR, 83560-5, PINR, 14649-3, THYR #### [facility] ([id number]) [address] [place] [address] 77700 Lactate (P veronica) [Moles/Vol]o n 08-04-2023 LACTATE W/REFLEX 0.9 mmol/L Normal 0.4-2.0 [facility] Comment on above: Result Comment: Result did not trigger repeat Lactate, re-order if needed. Performed By: #### C BCA, BMP, 3040-3, 45481-3, LIVR, 40003-5, PINR, 94336-4, THYR #### [facility] ([id number]) [address] [place] [address] 90567 Osmolality (U) [Osmolality]o n 08-04-2023 URINE OSMOLALITY 719 mOsm/kg H2 Normal 300-1300 [facility] Comment on above: Performed By: #### C BCA, BMP, 3040-3, 02848-0, LIVR, 34494-5, PINR, 30520-5, THYR #### [facility] ([id number]) [address] [place] [address] 81718 PROTIME AND INRon 08-04-2023 INR Coag (PPP) [Relative time] 1.5 {INR} High 0.8-1.1 [facility] Comment on above: Performed By: #### C BCA, BMP, 3040-3, 93126-3, LIVR, 09990-7, PINR, 38507-0, THYR #### [facility] ([id number]) [address], [place] [address] PT Coag (PPP) [Time] 16.7 s High 9.8-13.2 [facility] Comment on above: Result Comment: NEW REFERENCE RANGE Performed By: #### C BCA, BMP, 3040-3, 33483-3, LIVR, 04067-0, PINR, 27988-0, THYR #### [facility] ([id number]) [address], [place] [address] SARS/FLU A+B/RSV by NAAT/Mol ecularon 08-04-2023 SARS/FLU A+B/RSV by NAAT/Molecular FLU A PCR Negative (qualifier value) FLU B PCR Negative (qualifier value) RSV by PCR Negative (qualifier value) SARS CoV 2 Not detected (qualifier value) NOTE The Xpert Xpress SARS-CoV-2/Flu/RSV Plus test is a rapid, multiplexed real-time RT-PCR test intended for the simultaneous qualitative detection and differentiation of SARS-CoV-2, influenza A, influenza B and respiratory syncytial virus (RSV) viral RNA from individuals suspected of respiratory viral infection consistent with COVID-19 by their healthcare provider. This test has not been validated in asymptomatic patients. The Xpert Xpress SARS-CoV-2 test is intended for use by qualified and trained operators who are performing tests using either GeneXiMusicTweet DX or GeneiTaggedpert Infinity systems and is limited to laboratories that meet the CLIA requirements to perform high and moderate complexity tests. The Xpert Xpress SARS-CoV-2/Flu/RSV Plus is only for use under the Food and Drug Administration's Emergency Use Authorization. Results are for the simultaneous detection and differentiation of SARS-CoV-2, influenza A, influenza B and RSV nucleic acids in clinical specimens. SARS-CoV-2, influenza A, influenza B and RSV RNA identified by this test are generally detectable in upper respiratory samples during the acute phase of infection. Positive results are indicative of the presence of the identified virus, but do not rule out bacterial infection or co-infection with other pathogens not detected by this test. Clinical correlation with patient history and other diagnostic information is necessary to determine patient infection status. The agent detected may not be the definite cause of disease. Negative results do not preclude SARS-CoV-2, influenza A, influenza B and RSV infection and should not be used as the sole basis for treatment or other patient management decisions. Negative results must be combined with clinical observations, patient history and epidemiological information. An Invalid result may occur with specimen-associated inhibition unable to be resolved with specimen repeat. Fact Sheet for Healthcare Providers: https://www.[facility].gov/m edia/465582/download Fact Sheet for Patients: https://www.[facility].gov/m edia/605970/download Normal [facility] Comment on above: Performed By: #### C BCA, BMP, 3040-3, 70104-5, LIVR, 48233-3, PINR, 33332-7, THYR #### [facility] ([id number]) [address] [place] [address] 37280 THYROID PROFILEon 08-04-2023 Free T4 [Mass/Vol] 1.08 ng/dL Normal 0.61-1.60 [facility] Comment on above: Performed By: #### C BCA, BMP, 3040-3, 19388-2, LIVR, 85749-4, PINR, 20420-9, THYR #### [facility] ([id number]) [address] [place] [address] 51760 TSH 0.64 uIU/mL Normal 0.49-4.67 [facility] Comment on above: Performed By: #### C BCA, BMP, 3040-3, 51083-1, LIVR, 38048-9, PINR, 61043-5, THYR #### [facility] ([id number]) [address] [place] [address] 46618 TROPONIN Ion 08-04-2023 Troponin I.cardiac [Mass/Vol] 0.02 ng/mL Normal 0.00-0.04 [facility] Comment on above: Performed By: #### C BCA, BMP, 3040-3, 89089-3, LIVR, 58047-6, PINR, 42405-4, THYR #### [facility] ([id number]) [address] [place] [address] 26835 URINALYSISon 08-04-2023 Bilirubin Ql (U) Negative Normal NEG [facility] Comment on above: Performed By: #### C BCA, BMP, 3040-3, 93267-5, LIVR, 16654-3, PINR, 04069-5, THYR #### [facility] ([id number]) [address] [place] [address] 36638 BLOOD/HGB Negative Normal NEG [facility] Comment on above: Performed By: #### C BCA, BMP, 3040-3, 59763-9, LIVR, 56232-0, PINR, 97532-1, THYR #### [facility] ([id number]) [address] [place] [address] 28836 Color (U) YELLOW Normal YELLOW [facility] Comment on above: Performed By: #### C BCA, BMP, 3040-3, 06113-1, LIVR, 76359-9, PINR, 35035-1, THYR #### [facility] ([id number]) [address] [place] [address] 01881 Glucose Ql (U) Negative Normal NEG [facility] Comment on above: Performed By: #### C BCA, BMP, 3040-3, 48321-8, LIVR, 02874-2, PINR, 26735-7, THYR #### [facility] ([id number]) [address] [place] [address] 44681 Hyaline casts LM Ql (Urine sed) 0 to 2 Normal 0-2 [facility] Comment on above: Performed By: #### C BCA, BMP, 3040-3, 74372-7, LIVR, 33359-6, PINR, 34723-5, THYR #### [facility] ([id number]) [address] [place] [address] 58436 Ketones Ql (U) Trace Abnormal NEG [facility] Comment on above: Performed By: #### C BCA, BMP, 3040-3, 48959-5, LIVR, 23941-1, PINR, 37261-7, THYR #### [facility] ([id number]) [address] [place] [address] 17078 Leukocyte esterase Test strip Ql (U) Negative Normal NEG [facility] Comment on above: Performed By: #### C BCA, BMP, 3040-3, 35382-5, LIVR, 98585-8, PINR, 76796-5, THYR #### [facility] ([id number]) [address] [place] [address] 40015 Nitrite Ql (U) Negative Normal NEG [facility] Comment on above: Performed By: #### C BCA, BMP, 3040-3, 91636-2, LIVR, 12131-4, PINR, 27133-8, THYR #### [facility] ([id number]) [address] [place] [address] 99667 pH (U) 6.0 [pH] Normal 5.0-8.5 [facility] Comment on above: Performed By: #### C BCA, BMP, 3040-3, 49118-8, LIVR, 49028-8, PINR, 15567-3, THYR #### [facility] ([id number]) [address] [place] [address] 12524 Protein Ql (U) Trace Abnormal NEG [facility] Comment on above: Performed By: #### C BCA, BMP, 3040-3, 06774-9, LIVR, 28354-4, PINR, 88537-5, THYR #### [facility] ([id number]) [address] [place] [address] 25331 R.B.CELLS 0 /hpf Normal 0-5 [facility] Comment on above: Performed By: #### C BCA, BMP, 3040-3, 05082-0, LIVR, 84887-4, PINR, 45953-8, THYR #### [facility] ([id number]) [address] [place] [address] 08416 Specific gravity (U) [Rel density] 1.010 Normal 1.003-1.035 [facility] Comment on above: Performed By: #### C BCA, BMP, 3040-3, 62353-7, LIVR, 28743-7, PINR, 00167-1, THYR #### [facility] ([id number]) [address] [place] [address] 37085 SQUAMOUS EPITHELIUM 0 to 2 Normal 0-5 [facility] Comment on above: Performed By: #### C BCA, BMP, 3040-3, 56504-8, LIVR, 95204-9, PINR, 79685-0, THYR #### [facility] ([id number]) [address] [place] [address] 50393 TRANSITIONAL EPITH 0 to 5 Normal 0 [facility] Comment on above: Performed By: #### C BCA, BMP, 3040-3, 46772-3, LIVR, 04713-4, PINR, 24037-6, THYR #### [facility] ([id number]) [address] [place] [address] 68622 TURBIDITY CLEAR Normal CLEAR [facility] Comment on above: Performed By: #### C BCA, BMP, 3040-3, 59118-9, LIVR, 53977-6, PINR, 73579-3, THYR #### [facility] ([id number]) [address] [place] [address] 46613 Urobilinogen Qn (U) 0.2 {Cayden'U}/dL Normal <1.1 [facility] Comment on above: Performed By: #### C BCA, BMP, 3040-3, 16258-6, LIVR, 61068-2, PINR, 70142-7, THYR #### [facility] ([id number]) [address] [place] [address] 04954 W.B.CELLS 0 to 2 Normal 0-5 [facility] Comment on above: Performed By: #### C BCA, BMP, 3040-3, 83328-8, LIVR, 28014-9, PINR, 12183-1, THYR #### [facility] ([id number]) [address] [place] [address] 55502 URINE CULTUREon 08-04-2023 Bacteria identified Cx Nom (U) CULTURE RESULTS NO GROWTH AT <1000 CFU/mL Normal [facility] Comment on above: Performed By: #### C BCA, BMP, 3040-3, 00663-1, LIVR, 69956-6, PINR, 29554-3, THYR #### [facility] ([id number]) [address] [place] [address] 67323 URINE SODIUM,RANDOMon 2023 Sodium (U) [Moles/Vol] 24 mmol/L Normal [facility] Comment on above: Performed By: #### C BCA, BMP, 3040-3, 40746-2, LIVR, 09267-4, PINR, 80320-6, THYR #### [facility] ([id number]) [address] [place] [address] 57346 VENOUS BLOOD GASon 4 JOHN'S TEST Normal [facility] Comment on above: Performed By: #### V BG #### [facility] ([id number]) [address] [place] [address] 88158 Base excess Calc (Bld) [Moles/Vol] 4.0 mmol/L High 0.0-2.0 [facility] Comment on above: Performed By: #### V BG #### [facility] ([id number]) [address] [place] [address] 17217 HCO3 (Bld) [Moles/Vol] 25.2 mmol/L High 20.0-24.0 P [facility] Comment on above: Performed By: #### V BG #### [facility] ([id number]) [address] [place] [address] 22993 Oxygen saturation in Blood 100.0 % Normal >80.0 [facility] Comment on above: Performed By: #### V BG #### [facility] ([id number]) [address] [place] [address] 09211 OXYGEN SOURCE NC [facility] Comment on above: Performed By: #### V BG #### [facility] ([id number]) [address] [place] [address] 70355 PCO2 FABIO. FOR TEMP 27.0 MMHG Normal [facility] Comment on above: Performed By: #### V BG #### [facility] ([id number]) [address] [place] [address] 61028 PCO2, VENOUS 26.5 MMHG Low 35-50 [facility] Comment on above: Performed By: #### V BG #### [facility] ([id number]) [address] [place] [address] 80862 PH FABIO. FOR TEMP 7.579 Normal [facility] Comment on above: Performed By: #### V BG #### [facility] ([id number]) [address] [place] [address] 97713 PH, VENOUS 7.586 High 7.320-7.420 [facility] Comment on above: Performed By: #### V BG #### [facility] ([id number]) [address] [place] [address] 19519 PO2 FABIO. FOR TEMP 212 MMHG Normal [facility] Comment on above: Performed By: #### V BG #### [facility] ([id number]) [address] [place] [address] 60701 PO2, VENOUS 210 MMHG High 30-50 [facility] Comment on above: Performed By: #### V BG #### [facility] ([id number]) [address] [place] [address] 51107 SAMPLE SITE N/A Normal [facility] Comment on above: Performed By: #### V BG #### [facility] ([id number]) [address] [place] [address] 86754 SAMPLE TYPE VENOUS Normal [facility] Comment on above: Performed By: #### V BG #### [facility] ([id number]) [address] [place] [address] 26152 XR CHEST 1 VWon 08-04-2023 XR CHEST 1 VW XR CHEST 1 VW XR CHEST 1 VW: 08/04/2023 8:21 PM Clinical: Cough Supine frontal chest obtained. Left costophrenic angle is excluded on this exam. Heart size is normal. No large pleural effusion or pneumothorax. Loss of humeral acromial distances bilaterally suggests chronic rotator cuff tendon tears. IMPRESSION: * Limited chest with some linear atelectasis or scarring in lung bases. Finalized by Vernon Huerta MD on 08/04/2023 8:24 PM Normal [facility] aPTT Coag (PPP) [Time]on aPTT Coag (Bld) [Time] 31 s Normal 26-37 [facility] Comment on above: Result Comment: NEW REFERENCE RANGE Performed By: #### C BCA, BMP, 3040-3, 36497-0, LIVR, 60339-8, PINR, 84315-2, THYR #### [facility] ([id number]) [address] [place] [address] 32827 Smear to Pathologiston 04-18 Smear to Pathologist ELECTRONICALLY SIGNED. TORRES RICK MD [facility] Comment on above: Performed By: #### P T, RAFFAELE, MG, CBC, CPBILC #### [address] [address] Aircraft Communicator: Pete Ward MD Basic Metab w/rfx MGon 04-17 Anion gap [Moles/Vol] 10 mmol/L Normal 9-17 [facility] Comment on above: Performed By: #### P T, RAFFAELE, MG, CBC, CPBILC #### [address] [address] Aircraft Communicator: Pete Ward MD Calcium [Mass/Vol] 9.4 mg/dL Normal 8.6-10.4 [facility] Comment on above: Performed By: #### P T, RAFFAELE, MG, CBC, CPBILC #### [place] [address] Aircraft Communicator: Pete Ward MD Chloride [Moles/Vol] 96 mmol/L Low 98-107 [facility] Comment on above: Performed By: #### P T, RAFFAELE, MG, CBC, CPBILC #### [address] [address] Aircraft Communicator: Pete Ward MD CO2 [Moles/Vol] 29 mmol/L Normal 20-31 [facility] Comment on above: Performed By: #### P T, RAFFAELE, MG, CBC, CPBILC #### [address] [address] Aircraft Communicator: Pete Ward MD Creatinine [Mass/Vol] 0.6 mg/dL Low 0.7-1.2 [facility] Comment on above: Performed By: #### P T, RAFFAELE, MG, CBC, CPBILC #### [address] [id number] Aircraft Communicator: Pete Ward MD GFR/1.73 sq M.predicted among non-blacks MDRD (S/P/Bld) [Vol rate/Area] mL/min/{1.73_m2} Normal >60 [facility] Comment on above: Result Comment: These results are not intended for use in patients <18 years of age. eGFR results are calculated without a race factor using the 2020 CKD-EPI equation. Careful clinical correlation is recommended, particularly when comparing to results calculated using previous equations. The CKD-EPI equation is less accurate in patients with extremes of muscle mass, extra-renal metabolism of creatine, excessive creatine ingestion, or following therapy that affects renal tubular secretion. Performed By: #### P T, RAFFAELE, MG, CBC, CPBILC #### [address] [address] Aircraft Communicator: Pete Ward MD Glucose [Mass/Vol] 87 mg/dL Normal 70-99 [facility] Comment on above: Performed By: #### P T, RAFFAELE, MG, CBC, CPBILC #### [address] [address] Aircraft Communicator: Pete Ward MD Potassium [Moles/Vol] 3.8 mmol/L Normal 3.7-5.3 [facility] Comment on above: Performed By: #### P T, RAFFAELE, MG, CBC, CPBILC #### [address] [address] Aircraft Communicator: Pete Ward MD Sodium [Moles/Vol] 135 mmol/L Normal 135-144 [facility] Comment on above: Performed By: #### P T, RAFFAELE, MG, CBC, CPBILC #### [address] [id number] Aircraft Communicator: Pete Ward MD Urea nitrogen [Mass/Vol] 10 mg/dL Normal 8-23 [facility] Comment on above: Performed By: #### P T, RAFFAELE, MG, CBC, CPBILC #### [address] [address] Aircraft Communicator: Pete Ward MD CBC with Diffon 04-17-2023 Abs. Basophil 0.08 k/uL Normal 0.00-0.20 [facility] Comment on above: Performed By: #### P T, RAFFAELE, MG, CBC, CPBILC #### [address] [address] Aircraft Communicator: Pete Ward MD Abs.Imm.Granulocyte 0.08 k/uL Normal 0.00-0.30 [facility] Comment on above: Performed By: #### P T, RAFFAELE, MG, CBC, CPBILC #### [place] [address] Aircraft Communicator: Pete Ward MD Abs.Neutrophil (Seg) 6.40 k/uL Normal 1.50-8.10 [facility] Comment on above: Performed By: #### P T, RAFFAELE, MG, CBC, CPBILC #### [place] [address] Aircraft Communicator: Pete Ward MD Basophils/100 WBC (Bld) 1 % Normal 0-2 M [facility] Comment on above: Performed By: #### P T, RAFFAELE, MG, CBC, CPBILC #### [place] [address] Aircraft Communicator: Pete Ward MD Eosinophils (Bld) [#/Vol] 0.42 10*3/uL Normal 0.00-0.4 4 [facility] Comment on above: Performed By: #### P T, RAFFAELE, MG, CBC, CPBILC #### [place] [address] Aircraft Communicator: Pete Ward MD Eosinophils/100 WBC (Bld) 5 % High 1-4 [facility] Comment on above: Performed By: #### P T, RAFFAELE, MG, CBC, CPBILC #### [address] [address] Aircraft Communicator: Pete Ward MD Immature granulocytes/100 WBC (Bld) 1 % High 0 [facility] Comment on above: Performed By: #### P T, RAFFAELE, MG, CBC, CPBILC #### [place] [address] Aircraft Communicator: Pete Ward MD Lymphocytes (Bld) [#/Vol] 0.92 10*3/uL Low 1.10-3.7 0 [facility] Comment on above: Performed By: #### P T, RAFFAELE, MG, CBC, CPBILC #### [place] [address] Aircraft Communicator: Pete Ward MD Lymphocytes/100 WBC (Bld) 11 % Low 24-43 [facility] Comment on above: Performed By: #### P T, RAFFAELE, MG, CBC, CPBILC #### [address] [address] Aircraft Communicator: Pete Ward MD Monocytes (Bld) [#/Vol] 0.50 10*3/uL Normal 0.10-1.20 [facility] Comment on above: Performed By: #### P T, RAFFAELE, MG, CBC, CPBILC #### [place] [address] Aircraft Communicator: Pete Ward MD Monocytes/100 WBC (Bld) 6 % Normal 3-12 M [facility] Comment on above: Performed By: #### P T, RAFFAELE, MG, CBC, CPBILC #### [address] [address] Aircraft Communicator: Pete Ward MD Morphology Luis (Bld) [Interp] ANISOCYTOSIS PRESENT Normal [facility] Comment on above: Result Comment: 1+ POLYCHROMASIA 1+ ELLIPTOCYTES Performed By: #### P T, RAFFAELE, MG, CBC, CPBILC #### [address] [address] Aircraft Communicator: Pete Ward MD Neutrophil (Seg) 76 % High 36-65 [facility] Comment on above: Performed By: #### P T, RAFFAELE, MG, CBC, CPBILC #### [address] [address] Aircraft Communicator: Pete Ward MD Erythrocyte distribution width (RBC) [Ratio] 24.7 % High 11.8-14.4 [facility] Comment on above: Performed By: #### P T, RAFFAELE, MG, CBC, CPBILC #### [address] [address] Aircraft Communicator: Pete Ward MD Hematocrit (Bld) [Volume fraction] 25.8 % Low 40.7-50.3 [facility] Comment on above: Performed By: #### P T, RAFFAELE, MG, CBC, CPBILC #### [address] [address] Aircraft Communicator: Pete Ward MD Hemoglobin (Bld) [Mass/Vol] 7.7 g/dL Low 13.0-17.0 [facility] Comment on above: Performed By: #### P T, RAFFAELE, MG, CBC, CPBILC #### [address] [address] [address] Aircraft Communicator: Pete Ward MD MCH (RBC) [Entitic mass] 25.8 pg Normal 25.2-33.5 [facility] Comment on above: Performed By: #### P T, RAFFAELE, MG, CBC, CPBILC #### [address] [address] Aircraft Communicator: Pete Ward MD MCHC (RBC) [Mass/Vol] 29.8 g/dL Normal 28.4-34.8 [facility] Comment on above: Performed By: #### P T, RAFFAELE, MG, CBC, CPBILC #### [address] [address] Aircraft Communicator: Pete Ward MD MCV (RBC) [Entitic vol] 86.6 fL Normal 82.6-102.9 M [facility] Comment on above: Performed By: #### P T, RAFFAELE, MG, CBC, CPBILC #### [address] [address] Aircraft Communicator: Pete Ward MD NRBC Automated 0.0 per 100 WBC Normal 0.0 [facility] Comment on above: Performed By: #### P T, RAFFAELE, MG, CBC, CPBILC #### [address] [address] Aircraft Communicator: Pete Ward MD Platelet mean volume (Bld) [Entitic vol] 11.9 fL Normal 8.1-13.5 [facility] Comment on above: Performed By: #### P T, RAFFAELE, MG, CBC, CPBILC #### [address] [address] Aircraft Communicator: Pete Ward MD Platelets (Bld) [#/Vol] 471 10*3/uL High 138-453 [facility] Comment on above: Performed By: #### P T, RAFFAELE, MG, CBC, CPBILC #### [address] [address] Aircraft Communicator: Pete Ward MD RBC (Bld) [#/Vol] 2.98 10*6/uL Low 4.21-5.77 [facility] Comment on above: Performed By: #### P T, RAFFAELE, MG, CBC, CPBILC #### [facility] [address] [place], [place] [id number] Aircraft Communicator: Pete Ward MD WBC (Bld) [#/Vol] 8.4 10*3/uL Normal 3.5-11.3 [facility] Comment on above: Performed By: #### P T, RAFFAELE, MG, CBC, CPBILC #### [facility] [place], [place] [id number] Aircraft Communicator: Pete Ward MD [id number] 04-17-2023 SARS-CoV-2 (COVID-19) RNA ARIEL+probe Ql (Unsp spec) Not detected Normal NOTDET [facility] Comment on above: Result Comment: Rapid NAAT: The specimen is NEGATIVE for SARS-CoV-2, the novel coronavirus associated with COVID-19. The ID NOW COVID-19 assay is designed to detect the virus that causes COVID-19 in patients with signs and symptoms of infection who are suspected of COVID-19. An individual without symptoms of COVID-19 and who is not shedding SARS-CoV-2 virus would expect to have a negative (not detected) result in this assay. Negative results should be treated as presumptive and, if inconsistent with clinical signs and symptoms or necessary for patient management, should be tested with an alternative molecular assay. Negative results do not preclude SARS-CoV-2 infection and should not be used as the sole basis for patient management decisions. Fact sheet for Healthcare Providers: https://www.fda.gov/media/453213/download Fact sheet for Patients: https://www.fda.gov/media/993812/download Methodology: Isothermal Nucleic Acid Amplification Performed By: #### P T, RAFFAELE, MG, CBC, CPBILC #### [facility] [address] [place], [place] [id number] Aircraft Communicator: Pete Ward MD Surgical Pathology Reporton 04-17-2023 Surgical Pathology Report (NOTE) Path Number: [id number] -- Diagnosis -- ASCENDING COLON, ENDOSCOPIC MUCOSAL RESECTION: -ADENOMATOUS POLYP (TUBULAR ADENOMA) Iam Wallis D.O. Electronically Signed Out lj/04/19/2023 Clinical Information Pre-op Diagnosis: ANEMIA, UNSPECIFIED TYPE Operative Findings: ASCENDING COLON POLYP Operation Performed: COLONOSCOPY POLYPECTOMY SNARE/COLD BIOPSY kb Source of Specimen A: ASCENDIING COLON POLYP Gross Description DAMI ALCALA ASCENDING COLON POLYP Received in formalin are multiple pink-espinoza tissue fragments and polyps from 0.1 to 1.2 cm and are 2.2 x 1.4 x 0.5 cm in aggregate. Entirely 1 cs. jj mj NORMA/kb2:04/17/2023 Microscopic Description Microscopic evaluation performed. Processing Lab: [place] [id number] Interpretation Performed at [place] [id number] SURGICAL PATHOLOGY CONSULTATION Patient Name: DAMI ALCALA [facility] Rec: [id number] [facility] ANATOMIC PATHOLOGY [address] [place] [id number] Normal [facility] CBC with Diffon 04-16-2023 Abs. Basophil 0.10 k/uL Normal 0.0-0.2 [facility] Comment on above: Performed By: #### P T, RAFFAELE, MG, CBC, CPBILC #### [facility] [address] [place] [address] Aircraft Communicator: Pete Ward MD Abs.Imm.Granulocyte 0.00 k/uL Normal 0.00-0.30 [facility] Comment on above: Performed By: #### P T, RAFFAELE, MG, CBC, CPBILC #### [facility] [address] [place] [address] Aircraft Communicator: Pete Ward MD Abs.Neutrophil (Seg) 8.59 k/uL High 1.8-7.7 [facility] Comment on above: Performed By: #### P T, RAFFAELE, MG, CBC, CPBILC #### [address] [address] Aircraft Communicator: Pete Ward MD Basophils/100 WBC (Bld) 1 % Normal 0-2 M [facility] Comment on above: Performed By: #### P T, RAFFAELE, MG, CBC, CPBILC #### [place] [address] Aircraft Communicator: Pete Ward MD Eosinophils (Bld) [#/Vol] 0.10 10*3/uL Normal 0.0-0.4 [facility] Comment on above: Performed By: #### P T, RAFFAELE, MG, CBC, CPBILC #### [place] [address] Aircraft Communicator: Pete Ward MD Eosinophils/100 WBC (Bld) 1 % Normal 1-4 [facility] Comment on above: Performed By: #### P T, RAFFAELE, MG, CBC, CPBILC #### [address] [address] Aircraft Communicator: Pete Ward MD Immature granulocytes/100 WBC (Bld) 0 % Normal 0 [facility] Comment on above: Performed By: #### P T, RAFFAELE, MG, CBC, CPBILC #### [place] [address] Aircraft Communicator: Pete Ward MD Lymphocytes (Bld) [#/Vol] 0.91 10*3/uL Low 1.0-4.8 [facility] Comment on above: Performed By: #### P T, RAFFAELE, MG, CBC, CPBILC #### [address] [address] Aircraft Communicator: Pete Ward MD Lymphocytes/100 WBC (Bld) 9 % Low 24-44 [facility] Comment on above: Performed By: #### P T, RAFFAELE, MG, CBC, CPBILC #### [address] [address] Aircraft Communicator: Pete Ward MD Monocytes (Bld) [#/Vol] 0.40 10*3/uL Normal 0.1-0.8 [facility] Comment on above: Performed By: #### P T, RAFFAELE, MG, CBC, CPBILC #### [place] [address] Aircraft Communicator: Pete Ward MD Monocytes/100 WBC (Bld) 4 % Normal 1-7 M [facility] Comment on above: Performed By: #### P T, RAFFAELE, MG, CBC, CPBILC #### [place] [address] Aircraft Communicator: Pete Ward MD Morphology Luis (Bld) [Interp] ANISOCYTOSIS PRESENT Normal [facility] Comment on above: Result Comment: 1+ POLYCHROMASIA 1+ ELLIPTOCYTES HYPOCHROMIA PRESENT Performed By: #### P T, RAFFAELE, MG, CBC, CPBILC #### [place] [address] Aircraft Communicator: Pete Ward MD Neutrophil (Seg) 85 % High 36-66 [facility] Comment on above: Performed By: #### P T, RAFFAELE, MG, CBC, CPBILC #### [address] [address] Aircraft Communicator: Pete Ward MD Erythrocyte distribution width (RBC) [Ratio] 23.2 % High 11.8-14.4 [facility] Comment on above: Performed By: #### P T, RAFFAELE, MG, CBC, CPBILC #### [address] [address] Aircraft Communicator: Pete Ward MD Hematocrit (Bld) [Volume fraction] 25.9 % Low 40.7-50.3 [facility] Comment on above: Performed By: #### P T, RAFFAELE, MG, CBC, CPBILC #### [address] [address] Aircraft Communicator: Pete Ward MD Hemoglobin (Bld) [Mass/Vol] 7.5 g/dL Low 13.0-17.0 [facility] Comment on above: Performed By: #### P T, RAFFAELE, MG, CBC, CPBILC #### [place] [address] Aircraft Communicator: Pete Ward MD MCH (RBC) [Entitic mass] 25.5 pg Normal 25.2-33.5 [facility] Comment on above: Performed By: #### P T, RAFFAELE, MG, CBC, CPBILC #### [place] [address] Aircraft Communicator: Pete Ward MD MCHC (RBC) [Mass/Vol] 29.0 g/dL Normal 28.4-34.8 [facility] Comment on above: Performed By: #### P T, RAFFAELE, MG, CBC, CPBILC #### [place] [address] Aircraft Communicator: Pete Ward MD MCV (RBC) [Entitic vol] 88.1 fL Normal 82.6-102.9 M [facility] Comment on above: Performed By: #### P T, RAFFAELE, MG, CBC, CPBILC #### [address] [phone] Aircraft Communicator: Pete Ward MD NRBC Automated 0.0 per 100 WBC Normal 0.0 [facility] Comment on above: Performed By: #### P T, RAFFAELE, MG, CBC, CPBILC #### [address] [address] Aircraft Communicator: Pete Ward MD Platelet mean volume (Bld) [Entitic vol] 11.5 fL Normal 8.1-13.5 [facility] Comment on above: Performed By: #### P T, RAFFAELE, MG, CBC, CPBILC #### [address] [address] Aircraft Communicator: Pete Ward MD Platelets (Bld) [#/Vol] 457 10*3/uL High 138-453 [facility] Comment on above: Performed By: #### P T, RAFFAELE, MG, CBC, CPBILC #### [address] [address] Aircraft Communicator: Pete Ward MD RBC (Bld) [#/Vol] 2.94 10*6/uL Low 4.21-5.77 [facility] Comment on above: Performed By: #### P T, RAFFAELE, MG, CBC, CPBILC #### [address] [address] Aircraft Communicator: Pete Ward MD WBC (Bld) [#/Vol] 10.1 10*3/uL Normal 3.5-11.3 [facility] Comment on above: Performed By: #### P T, RAFFAELE, MG, CBC, CPBILC #### [place] [address] Aircraft Communicator: Pete Ward MD CBC with Diffon 04-15-2023 Abs. Basophil 0.10 k/uL Normal 0.0-0.2 [facility] Comment on above: Performed By: #### P T, RAFFAELE, MG, CBC, CPBILC #### [address] [address] Aircraft Communicator: Pete Ward MD Abs.Imm.Granulocyte 0.00 k/uL Normal 0.00-0.30 [facility] Comment on above: Performed By: #### P T, RAFFAELE, MG, CBC, CPBILC #### [place] [address] Aircraft Communicator: Pete Ward MD Abs.Neutrophil (Seg) 7.71 k/uL High 1.8-7.7 [facility] Comment on above: Performed By: #### P T, RAFFAELE, MG, CBC, CPBILC #### [address] [address] Aircraft Communicator: Pete Ward MD Basophils/100 WBC (Bld) 1 % Normal 0-2 [facility] Comment on above: Performed By: #### P T, RAFFAELE, MG, CBC, CPBILC #### [place] [address] Aircraft Communicator: Pete Ward MD Eosinophils (Bld) [#/Vol] 0.62 10*3/uL High 0.0-0.4 [facility] Comment on above: Performed By: #### P T, RAFFAELE, MG, CBC, CPBILC #### [address] [address] Aircraft Communicator: Pete Ward MD Eosinophils/100 WBC (Bld) 6 % High 1-4 [facility] Comment on above: Performed By: #### P T, RAFFAELE, MG, CBC, CPBILC #### [address] [address] Aircraft Communicator: Pete Ward MD Immature granulocytes/100 WBC (Bld) 0 % Normal 0 [facility] Comment on above: Performed By: #### P T, RAFFAELE, MG, CBC, CPBILC #### [address] [address] Aircraft Communicator: Pete Ward MD Lymphocytes (Bld) [#/Vol] 1.14 10*3/uL Normal 1.0-4.8 [facility] Comment on above: Performed By: #### P T, RAFFAELE, MG, CBC, CPBILC #### [address] [address] Aircraft Communicator: Pete Ward MD Lymphocytes/100 WBC (Bld) 11 % Low 24-44 [facility] Comment on above: Performed By: #### P T, RAFFAELE, MG, CBC, CPBILC #### [address] [address] Aircraft Communicator: Pete Ward MD Monocytes (Bld) [#/Vol] 0.83 10*3/uL High 0.1-0.8 [facility] Comment on above: Performed By: #### P T, RAFFAELE, MG, CBC, CPBILC #### [address] [address] Aircraft Communicator: Pete Ward MD Monocytes/100 WBC (Bld) 8 % High 1-7 M [facility] Comment on above: Performed By: #### P T, RAFFAELE, MG, CBC, CPBILC #### [address] [address] Aircraft Communicator: Pete Ward MD Morphology Luis (Bld) [Interp] ANISOCYTOSIS PRESENT Normal [facility] Comment on above: Result Comment: HYPO CHROMIA PRESENT 1+ ELLIPTOCYTES 1+ POLYCHROMASIA Performed By: #### P T, RAFFAELE, MG, CBC, CPBILC #### [address] [address] Aircraft Communicator: Pete Ward MD Neutrophil (Seg) 74 % High 36-66 [facility] Comment on above: Performed By: #### P T, RAFFAELE, MG, CBC, CPBILC #### [place] [address] Aircraft Communicator: Pete Ward MD Erythrocyte distribution width (RBC) [Ratio] 21.9 % High 11.8-14.4 [facility] Comment on above: Performed By: #### P T, RAFFAELE, MG, CBC, CPBILC #### [place] [address] Aircraft Communicator: Pete Ward MD Hematocrit (Bld) [Volume fraction] 26.7 % Low 40.7-50.3 [facility] Comment on above: Performed By: #### P T, RAFFAELE, MG, CBC, CPBILC #### [place] [address] Aircraft Communicator: Pete Ward MD Hemoglobin (Bld) [Mass/Vol] 7.7 g/dL Low 13.0-17.0 [facility] Comment on above: Performed By: #### P T, RAFFAELE, MG, CBC, CPBILC #### [place] [address] Aircraft Communicator: Pete Ward MD MCH (RBC) [Entitic mass] 25.5 pg Normal 25.2-33.5 [facility] Comment on above: Performed By: #### P T, RAFFAELE, MG, CBC, CPBILC #### [place] [address] Aircraft Communicator: Pete Ward MD MCHC (RBC) [Mass/Vol] 28.8 g/dL Normal 28.4-34.8 [facility] Comment on above: Performed By: #### P T, RAFFAELE, MG, CBC, CPBILC #### [address] [address] Aircraft Communicator: Pete Ward MD MCV (RBC) [Entitic vol] 88.4 fL Normal 82.6-102.9 M [facility] Comment on above: Performed By: #### P T, RAFFAELE, MG, CBC, CPBILC #### [address] [address] Aircraft Communicator: Pete Ward MD NRBC Automated 0.2 per 100 WBC High 0.0 [facility] Comment on above: Performed By: #### P T, RAFFAELE, MG, CBC, CPBILC #### [address] [address] Aircraft Communicator: Pete Ward MD Platelet mean volume (Bld) [Entitic vol] 11.8 fL Normal 8.1-13.5 [facility] Comment on above: Performed By: #### P T, RAFFAELE, MG, CBC, CPBILC #### [address] [address] Aircraft Communicator: Pete Ward MD Platelets (Bld) [#/Vol] 403 10*3/uL Normal 138-453 [facility] Comment on above: Performed By: #### P T, RAFFAELE, MG, CBC, CPBILC #### [address] [address] Aircraft Communicator: Pete Ward MD RBC (Bld) [#/Vol] 3.02 10*6/uL Low 4.21-5.77 [facility] Comment on above: Performed By: #### P T, RAFFAELE, MG, CBC, CPBILC #### [address] [address] Aircraft Communicator: Pete Ward MD WBC (Bld) [#/Vol] 10.4 10*3/uL Normal 3.5-11.3 [facility] Comment on above: Performed By: #### P T, RAFFAELE, MG, CBC, CPBILC #### [facility] [address] [place] [address] Aircraft Communicator: Pete Ward MD Basic Metab w/rfx MG 04-14 Anion gap [Moles/Vol] 6 mmol/L Low 9-17 [facility] Comment on above: Performed By: #### P T, RAFFAELE, MG, CBC, CPBILC #### [address] [address] Aircraft Communicator: Pete Ward MD Calcium [Mass/Vol] 9.8 mg/dL Normal 8.6-10.4 [facility] Comment on above: Performed By: #### P T, RAFFAELE, MG, CBC, CPBILC #### [facility] [address] [place] [address] Aircraft Communicator: Pete Ward MD Chloride [Moles/Vol] 98 mmol/L Normal 98-107 [facility] Comment on above: Performed By: #### P T, RAFFAELE, MG, CBC, CPBILC #### [facility] [address] [place] [address] Aircraft Communicator: Pete Ward MD CO2 [Moles/Vol] 33 mmol/L High 20-31 [facility] Comment on above: Performed By: #### P T, RAFFAELE, MG, CBC, CPBILC #### [facility] [address] [place] [address] Aircraft Communicator: Pete Ward MD Creatinine [Mass/Vol] 0.5 mg/dL Low 0.7-1.2 [facility] Comment on above: Performed By: #### P T, RAFFAELE, MG, CBC, CPBILC #### [facility] [address] [place] [address] Aircraft Communicator: Pete Ward MD GFR/1.73 sq M.predicted among non-blacks MDRD (S/P/Bld) [Vol rate/Area] mL/min/{1.73_m2} Normal >60 [facility] Comment on above: Result Comment: These results are not intended for use in patients <18 years of age. eGFR results are calculated without a race factor using the 2020 CKD-EPI equation. Careful clinical correlation is recommended, particularly when comparing to results calculated using previous equations. The CKD-EPI equation is less accurate in patients with extremes of muscle mass, extra-renal metabolism of creatine, excessive creatine ingestion, or following therapy that affects renal tubular secretion. Performed By: #### P T, RAFFAELE, MG, CBC, CPBILC #### [place] [address] Aircraft Communicator: Pete Ward MD Glucose [Mass/Vol] 127 mg/dL High 70-99 [facility] Comment on above: Performed By: #### P T, RAFFAELE, MG, CBC, CPBILC #### [place] [address] Aircraft Communicator: Pete Ward MD Potassium [Moles/Vol] 4.0 mmol/L Normal 3.7-5.3 [facility] Comment on above: Performed By: #### P T, RAFFAELE, MG, CBC, CPBILC #### [address] [address] Aircraft Communicator: Pete Ward MD Sodium [Moles/Vol] 137 mmol/L Normal 135-144 [facility] Comment on above: Performed By: #### P T, RAFFAELE, MG, CBC, CPBILC #### [place] [address] Aircraft Communicator: Pete Ward MD Urea nitrogen [Mass/Vol] 17 mg/dL Normal 8-23 [facility] Comment on above: Performed By: #### P T, RAFFAELE, MG, CBC, CPBILC #### [address] [address] Aircraft Communicator: Pete Ward MD CBC with Diffon 04-14-2023 Abs. Basophil 0.11 k/uL Normal 0.00-0.20 [facility] Comment on above: Performed By: #### P T, RAFFAELE, MG, CBC, CPBILC #### [place] [address] Aircraft Communicator: Pete Ward MD Abs.Imm.Granulocyte 0.00 k/uL Normal 0.00-0.30 [facility] Comment on above: Performed By: #### P T, RAFFAELE, MG, CBC, CPBILC #### [place] [address] Aircraft Communicator: Pete Ward MD Abs.Neutrophil (Seg) 8.05 k/uL Normal 1.50-8.10 [facility] Comment on above: Performed By: #### P T, RAFFAELE, MG, CBC, CPBILC #### [place] [address] Aircraft Communicator: Pete Ward MD Basophils/100 WBC (Bld) 1 % Normal 0-2 M [facility] Comment on above: Performed By: #### P T, RAFFAELE, MG, CBC, CPBILC #### [place] [address] Aircraft Communicator: Pete Ward MD Eosinophils (Bld) [#/Vol] 0.32 10*3/uL Normal 0.00-0.4 4 [facility] Comment on above: Performed By: #### P T, RAFFAELE, MG, CBC, CPBILC #### [place] [address] Aircraft Communicator: Pete Ward MD Eosinophils/100 WBC (Bld) 3 % Normal 1-4 [facility] Comment on above: Performed By: #### P T, RAFFAELE, MG, CBC, CPBILC #### [address] [address] Aircraft Communicator: Peet Ward MD Immature granulocytes/100 WBC (Bld) 0 % Normal 0 [facility] Comment on above: Performed By: #### P T, RAFFAELE, MG, CBC, CPBILC #### [address] [address] Aircraft Communicator: Pete Ward MD Lymphocytes (Bld) [#/Vol] 1.17 10*3/uL Normal 1.10-3.7 0 [facility] Comment on above: Performed By: #### P T, RAFFAELE, MG, CBC, CPBILC #### [place] [address] Aircraft Communicator: Pete Ward MD Lymphocytes/100 WBC (Bld) 11 % Low 24-43 [facility] Comment on above: Performed By: #### P T, RAFFAELE, MG, CBC, CPBILC #### [address] [address] Aircraft Communicator: Pete Ward MD Monocytes (Bld) [#/Vol] 0.95 10*3/uL Normal 0.10-1.20 [facility] Comment on above: Performed By: #### P T, RAFFAELE, MG, CBC, CPBILC #### [address] [address] Aircraft Communicator: Pete Ward MD Monocytes/100 WBC (Bld) 9 % Normal 3-12 M [facility] Comment on above: Performed By: #### P T, RAFFAELE, MG, CBC, CPBILC #### [address] [address] Aircraft Communicator: Pete Ward MD Morphology Luis (Bld) [Interp] ANISOCYTOSIS PRESENT Normal [facility] Comment on above: Result Comment: HYPO CHROMIA PRESENT Performed By: #### P T, RAFFAELE, MG, CBC, CPBILC #### [address] [address] Aircraft Communicator: Pete Ward MD Neutrophil (Seg) 76 % High 36-65 [facility] Comment on above: Performed By: #### P T, RAFFAELE, MG, CBC, CPBILC #### [place] [address] Aircraft Communicator: Pete Ward MD Erythrocyte distribution width (RBC) [Ratio] 22.8 % High 11.8-14.4 [facility] Comment on above: Performed By: #### P T, RAFFAELE, MG, CBC, CPBILC #### [place] [address] Aircraft Communicator: Pete Ward MD Hematocrit (Bld) [Volume fraction] 23.4 % Low 40.7-50.3 [facility] Comment on above: Performed By: #### P T, RAFFAELE, MG, CBC, CPBILC #### [address] [address] Aircraft Communicator: Pete Ward MD Hemoglobin (Bld) [Mass/Vol] 6.5 g/dL Critically low 13.0-17.0 [facility] Comment on above: Performed By: #### P T, RAFFAELE, MG, CBC, CPBILC #### [address] [address] Aircraft Communicator: Pete Ward MD MCH (RBC) [Entitic mass] 24.2 pg Low 25.2-33.5 [facility] Comment on above: Performed By: #### P T, RAFFAELE, MG, CBC, CPBILC #### [address] [address] Aircraft Communicator: Pete Ward MD MCHC (RBC) [Mass/Vol] 27.8 g/dL Low 28.4-34.8 [facility] Comment on above: Performed By: #### P T, RAFFAELE, MG, CBC, CPBILC #### [address] [address] Aircraft Communicator: Pete Ward MD MCV (RBC) [Entitic vol] 87.0 fL Normal 82.6-102.9 M [facility] Comment on above: Performed By: #### P T, RAFFAELE, MG, CBC, CPBILC #### [address] [address] Aircraft Communicator: Pete Ward MD NRBC Automated 0.0 per 100 WBC Normal 0.0 [facility] Comment on above: Performed By: #### P T, RAFFAELE, MG, CBC, CPBILC #### [place] [address] Aircraft Communicator: Pete Ward MD Platelet mean volume (Bld) [Entitic vol] 12.4 fL Normal 8.1-13.5 [facility] Comment on above: Performed By: #### P T, RAFFAELE, MG, CBC, CPBILC #### [address] [address] Aircraft Communicator: Pete Ward MD Platelets (Bld) [#/Vol] 372 10*3/uL Normal 138-453 [facility] Comment on above: Performed By: #### P T, RAFFAELE, MG, CBC, CPBILC #### [address] [address] Aircraft Communicator: Pete Ward MD RBC (Bld) [#/Vol] 2.69 10*6/uL Low 4.21-5.77 [facility] Comment on above: Performed By: #### P T, RAFFAELE, MG, CBC, CPBILC #### [employer] [facility] [address] [place] [address] Aircraft Communicator: Pete Ward MD WBC (Bld) [#/Vol] 10.6 10*3/uL Normal 3.5-11.3 [facility] Comment on above: Performed By: #### P T, RAFFAELE, MG, CBC, CPBILC #### [facility] [address] [place], [place] [id number] Aircraft Communicator: Pete Ward MD CT ABDOMEN PELVIS WO CONTRAS Ton 04-14-2023 CT ABDOMEN PELVIS WO CONTRAST EXAMINATION: CT OF THE ABDOMEN AND PELVIS WITHOUT CONTRAST 04/14/2023 9:55 am TECHNIQUE: CT of the abdomen and pelvis was performed without the administration of intravenous contrast. Multiplanar reformatted images are provided for review. Automated exposure control, iterative reconstruction, and/or weight based adjustment of the mA/kV was utilized to reduce the radiation dose to as low as reasonably achievable. COMPARISON: CT abdomen and pelvis performed 04/05/2023. HISTORY: ORDERING SYSTEM PROVIDED HISTORY: Downtrending TECHNOLOGIST PROVIDED HISTORY: Downtrending FINDINGS: Lower Chest: There are small bilateral effusions with adjacent consolidation representing atelectasis versus pneumonia. The visualized cardiac structures are unremarkable. Organs: The liver and spleen are normal size and overall attenuation. The gallbladder is contracted. The pancreas and adrenal glands are unremarkable. The kidneys are without obstructive uropathy. There are bilateral renal cysts few of which contain hemorrhagic or proteinaceous debris. No further evaluation is necessary. The urinary bladder is unremarkable. GI/Bowel: The stomach is unremarkable. There is a percutaneous gastrostomy tube. Loops of small bowel are normal in caliber without evidence for obstruction. The colon contains air and fecal residue. There is no free air or free fluid. There is stable stranding anterior to the urinary bladder the left of midline. Pelvis: Prostate gland and seminal vesicles are unremarkable. Peritoneum/Retroperit oneum: The psoas muscles are symmetric. The abdominal aorta is normal in caliber. The inferior vena cava is unremarkable. There is no retroperitoneal or mesenteric adenopathy. Bones/Soft Tissues: The extra-abdominal soft tissues are unremarkable. IMPRESSION: Small bilateral effusions with adjacent consolidation representing atelectasis versus pneumonia. No acute abdominal or pelvic abnormality. Interpreted by: Bola Hurst MD Signed by: Bola Hurst MD 04/14/23 Final result Normal [facility] Hgb/Hcton 04-14-2023 Hematocrit (Bld) [Volume fraction] 26.3 % Low 40.7-50.3 [facility] Comment on above: Performed By: #### P T, RAFFAELE, MG, CBC, CPBILC #### [facility] [address] [place] [address] Aircraft Communicator: Pete Ward MD Hemoglobin (Bld) [Mass/Vol] 7.7 g/dL Low 13.0-17.0 [facility] Comment on above: Performed By: #### P T, RAFFAELE, MG, CBC, CPBILC #### [facility] [address] [place] [address] Aircraft Communicator: Pete Ward MD Lactate Dehydrogenaseon 04-05 LDH [Catalytic activity/Vol] 199 U/L Normal 135-225 [facility] Comment on above: Performed By: #### P T, RAFFAELE, MG, CBC, CPBILC #### [facility] [address] [place] [address] Aircraft Communicator: Pete Ward MD Occult Blood, Fecalon 2022 Occult Blood 1 Positive Abnormal NEG [facility] Comment on above: Performed By: #### P T, RAFFAELE, MG, CBC, CPBILC #### [facility] [address] [place] [address] Aircraft Communicator: Pete Ward MD Specimen 1 Date .FECES Normal [facility] Comment on above: Performed By: #### P T, RAFFAELE, MG, CBC, CPBILC #### [facility] [address] [place] [address] [phone] Aircraft Communicator: Pete Ward MD Specimen 1 Time .FECES Normal [facility] Comment on above: Performed By: #### P T, RAFFAELE, MG, CBC, CPBILC #### [address] [id number] Aircraft Communicator: Pete Ward MD Retic Counton 04-14-2023 Absolute Retic 0.130 M/uL High 0.030-0.080 [facility] Comment on above: Performed By: #### P T, RAFFAELE, MG, CBC, CPBILC #### [address] [id number] Aircraft Communicator: Pete Ward MD IRF 44.2 % High 2.7-18.3 [facility] Comment on above: Performed By: #### P T, RAFFAELE, MG, CBC, CPBILC #### [address] [phone] Aircraft Communicator: Pete Ward MD Retic Count 4.7 % High 0.5-1.9 [facility] Comment on above: Performed By: #### P T, RAFFAELE, MG, CBC, CPBILC #### [address] [phone] Aircraft Communicator: Pete Ward MD Retic Hemoglobin 18.6 pg Low 28.2-35.7 [facility] Comment on above: Performed By: #### P T, RAFFAELE, MG, CBC, CPBILC #### [address] [id number] Aircraft Communicator: Pete Ward MD Surgical Pathology Reporton 04-14-2023 Surgical Pathology Report (NOTE) [id number] [facility] ANATOMIC PATHOLOGY [address] [place] [id number] SURGICAL PATHOLOGY CONSULTATION Patient Name: DAMI ALCALA MR#: [id number] Specimen #[id number] Procedures/Addenda PERIPHERAL BLOOD REPORT Date Ordered: 04/17/2023 Status: Signed Out Date Complete: 04/17/2023 By: Torres Rick M.D. Date Reported: 04/17/2023 INTERPRETATION Peripheral Blood: Normocytic, hypochromic anemia. Per the patient's electronic medical record, the patient has severe iron deficiency anemia. The increased reticulocytes could be the result of anemia treatment or blood loss. RESULTS-COMMENTS PERIPHERAL BLOOD STUDY CBC: Please see the electronic health record for CBC parameters ([id number], 04/14/2023, 08:20). PLATELETS: Platelets show normal morphology. LEUKOCYTES: White blood cells show normal morphology. There are no blasts. ERYTHROCYTES: Normocytic, hypochromic. Anisocytosis. Reticulocyte count 4.7%. Red blood cells show normal morphology. Note: The electronic health record is reviewed. Torres Rick M.D. Source: A: Peripheral Blood Normal [facility] Type + Screenon 04-14-2023 Type + Screen Sample Expiration 04/16/2023,2359 Arm Band Number [id number] ABO/Rh(D) A POSITIVE Antibody Screen NEGATIVE Unit Number [id number] Blood Component Type Leukocyte Reduced Red Cell Unit Division 00 Status of Unit TRANSFUSED Transfusion Status OK TO TRANSFUSE Crossmatch Result COMPATIBLE Unit Number [id number] Blood Component Type Leukocyte Reduced Red Cell Unit Division 00 Status of Unit TRANSFUSED Transfusion Status OK TO TRANSFUSE Crossmatch Result COMPATIBLE Normal [facility] Comment on above: Performed By: #### P T, RAFFAELE, MG, CBC, CPBILC #### [facility] [place], [place] [id number] Aircraft Communicator: Pete Ward MD XR ABDOMEN FOR NG/OG/NE TUBE PLACEMENTon 04-14-2023 XR ABDOMEN FOR NG/OG/NE TUBE PLACEMENT EXAMINATION: ONE SUPINE XRAY VIEW(S) OF THE ABDOMEN 04/06/2023 9:22 am COMPARISON: 04/05/2023 HISTORY: ORDERING SYSTEM PROVIDED HISTORY: Confirmation of course of NG/OG/NE tube and location of tip of tube TECHNOLOGIST PROVIDED HISTORY: Confirmation of course of NG/OG/NE tube and location of tip of tube Portable?->Yes FINDINGS: Residual oral contrast noted within the distal small bowel and colon. There are multiple catheters projecting over the abdomen. What appears to be an enteric tube is present with its tip in the distal esophagus. IMPRESSION: Enteric tube with tip in the distal esophagus. Multiple overlying catheters and monitoring leads decrease sensitivity. No bowel obstruction. Interpreted by: Saul Piper MD Signed by: Saul Piper MD 04/14/23 Final result Normal [facility] Basic Metab w/rfx MGon 04-13 Anion gap [Moles/Vol] 5 mmol/L Low 9-17 [facility] Comment on above: Performed By: #### P T, RAFFAELE, MG, CBC, CPBILC #### [address] [address] Aircraft Communicator: Pete Ward MD Calcium [Mass/Vol] 9.7 mg/dL Normal 8.6-10.4 [facility] Comment on above: Performed By: #### P T, RAFFAELE, MG, CBC, CPBILC #### [facility] [address] [place] [phone] Aircraft Communicator: Pete Ward MD Chloride [Moles/Vol] 99 mmol/L Normal 98-107 [facility] Comment on above: Performed By: #### P T, RAFFAELE, MG, CBC, CPBILC #### [facility] [address] [place] [address] Aircraft Communicator: Pete Ward MD CO2 [Moles/Vol] 33 mmol/L High 20-31 [facility] Comment on above: Performed By: #### P T, RAFFAELE, MG, CBC, CPBILC #### [facility] [address] [place] [phone] Aircraft Communicator: Pete Ward MD Creatinine [Mass/Vol] 0.6 mg/dL Low 0.7-1.2 [facility] Comment on above: Performed By: #### P T, RAFFAELE, MG, CBC, CPBILC #### [facility] [address] [place] [address] Aircraft Communicator: Pete Ward MD GFR/1.73 sq M.predicted among non-blacks MDRD (S/P/Bld) [Vol rate/Area] mL/min/{1.73_m2} Normal >60 [facility] Comment on above: Result Comment: These results are not intended for use in patients <18 years of age. eGFR results are calculated without a race factor using the 2020 CKD-EPI equation. Careful clinical correlation is recommended, particularly when comparing to results calculated using previous equations. The CKD-EPI equation is less accurate in patients with extremes of muscle mass, extra-renal metabolism of creatine, excessive creatine ingestion, or following therapy that affects renal tubular secretion. Performed By: #### P T, RAFFAELE, MG, CBC, CPBILC #### [facility] [address] [place] [address] Aircraft Communicator: Pete Ward MD Glucose [Mass/Vol] 117 mg/dL High 70-99 [facility] Comment on above: Performed By: #### P T, RAFFAELE, MG, CBC, CPBILC #### [facility] [address] [place] [address] [phone] Aircraft Communicator: Pete Ward MD Potassium [Moles/Vol] 4.6 mmol/L Normal 3.7-5.3 [facility] Comment on above: Performed By: #### P T, RAFFAELE, MG, CBC, CPBILC #### [facility] [address] [place] [address] [phone] Aircraft Communicator: Pete Ward MD Sodium [Moles/Vol] 137 mmol/L Normal 135-144 [facility] Comment on above: Performed By: #### P T, RAFFAELE, MG, CBC, CPBILC #### [facility] [address] [place] [address] Aircraft Communicator: Pete Ward MD Urea nitrogen [Mass/Vol] 18 mg/dL Normal 8-23 [facility] Comment on above: Performed By: #### P T, RAFFAELE, MG, CBC, CPBILC #### [place] [address] Aircraft Communicator: Pete Ward MD CBC with Diffon 04-13-2023 Abs. Basophil 0.08 k/uL Normal 0.00-0.20 [facility] Comment on above: Performed By: #### P T, RAFFAELE, MG, CBC, CPBILC #### [place] [address] Aircraft Communicator: Pete Ward MD Abs.Imm.Granulocyte 0.08 k/uL Normal 0.00-0.30 [facility] Comment on above: Performed By: #### P T, RAFFAELE, MG, CBC, CPBILC #### [place] [address] Aircraft Communicator: Pete Ward MD Abs.Neutrophil (Seg) 6.39 k/uL Normal 1.50-8.10 [facility] Comment on above: Performed By: #### P T, RAFFAELE, MG, CBC, CPBILC #### [place] [address] Aircraft Communicator: Pete Ward MD Basophils/100 WBC (Bld) 1 % Normal 0-2 [facility] Comment on above: Performed By: #### P T, RAFFAELE, MG, CBC, CPBILC #### [place] [address] Aircraft Communicator: Pete Ward MD Eosinophils (Bld) [#/Vol] 0.34 10*3/uL Normal 0.00-0.4 4 [facility] Comment on above: Performed By: #### P T, RAFFAELE, MG, CBC, CPBILC #### [address] [address] Aircraft Communicator: Pete Ward MD Eosinophils/100 WBC (Bld) 4 % Normal 1-4 [facility] Comment on above: Performed By: #### P T, RAFFAELE, MG, CBC, CPBILC #### [address] [address] Aircraft Communicator: Pete Ward MD Immature granulocytes/100 WBC (Bld) 1 % High 0 [facility] Comment on above: Performed By: #### P T, RAFFAELE, MG, CBC, CPBILC #### [address] [address] Aircraft Communicator: Pete Ward MD Lymphocytes (Bld) [#/Vol] 0.92 10*3/uL Low 1.10-3.7 0 [facility] Comment on above: Performed By: #### P T, RAFFAELE, MG, CBC, CPBILC #### [address] [address] Aircraft Communicator: Pete Ward MD Lymphocytes/100 WBC (Bld) 11 % Low 24-43 [facility] Comment on above: Performed By: #### P T, RAFFAELE, MG, CBC, CPBILC #### [address] [address] Aircraft Communicator: Pete Ward MD Monocytes (Bld) [#/Vol] 0.59 10*3/uL Normal 0.10-1.20 [facility] Comment on above: Performed By: #### P T, RAFFAELE, MG, CBC, CPBILC #### [address] [address] Aircraft Communicator: Pete Ward MD Monocytes/100 WBC (Bld) 7 % Normal 3-12 [facility] Comment on above: Performed By: #### P T, RAFFAELE, MG, CBC, CPBILC #### [facility] [address] [place] [phone] Aircraft Communicator: Pete Ward MD Morphology Luis (Bld) [Interp] ANISOCYTOSIS PRESENT Normal [facility] Comment on above: Result Comment: HYPO CHROMIA PRESENT Performed By: #### P T, RAFFAELE, MG, CBC, CPBILC #### [address] [address] Aircraft Communicator: Pete Ward MD Neutrophil (Seg) 76 % High 36-65 [facility] Comment on above: Performed By: #### P T, RAFFAELE, MG, CBC, CPBILC #### [address] [address] Aircraft Communicator: Pete Ward MD Erythrocyte distribution width (RBC) [Ratio] 24.9 % High 11.8-14.4 [facility] Comment on above: Performed By: #### P T, RAFFAELE, MG, CBC, CPBILC #### [facility] [address] [place] [address] Aircraft Communicator: Pete Ward MD Hematocrit (Bld) [Volume fraction] 22.1 % Low 40.7-50.3 [facility] Comment on above: Performed By: #### P T, RAFFAELE, MG, CBC, CPBILC #### [facility] [address] [place] [address] Aircraft Communicator: Pete Ward MD Hemoglobin (Bld) [Mass/Vol] 6.0 g/dL Critically low 13.0-17.0 [facility] Comment on above: Performed By: #### P T, RAFFAELE, MG, CBC, CPBILC #### [facility] [address] [place] [address] Aircraft Communicator: Pete Ward MD MCH (RBC) [Entitic mass] 22.8 pg Low 25.2-33.5 [facility] Comment on above: Performed By: #### P T, RAFFAELE, MG, CBC, CPBILC #### [address] [address] Aircraft Communicator: Pete Ward MD MCHC (RBC) [Mass/Vol] 27.1 g/dL Low 28.4-34.8 [facility] Comment on above: Performed By: #### P T, RAFFAELE, MG, CBC, CPBILC #### [place] [address] Aircraft Communicator: Pete Ward MD MCV (RBC) [Entitic vol] 84.0 fL Normal 82.6-102.9 M [facility] Comment on above: Performed By: #### P T, RAFFAELE, MG, CBC, CPBILC #### [place] [address] Aircraft Communicator: Pete Ward MD NRBC Automated 0.0 per 100 WBC Normal 0.0 [facility] Comment on above: Performed By: #### P T, RAFFAELE, MG, CBC, CPBILC #### [place] [address] Aircraft Communicator: Pete Ward MD Platelet mean volume (Bld) [Entitic vol] 11.9 fL Normal 8.1-13.5 [facility] Comment on above: Performed By: #### P T, RAFFAELE, MG, CBC, CPBILC #### [place] [address] Aircraft Communicator: Pete Ward MD Platelets (Bld) [#/Vol] 331 10*3/uL Normal 138-453 [facility] Comment on above: Performed By: #### P T, RAFFAELE, MG, CBC, CPBILC #### [address] [address] Aircraft Communicator: Pete Ward MD RBC (Bld) [#/Vol] 2.63 10*6/uL Low 4.21-5.77 [facility] Comment on above: Performed By: #### P T, RAFFAELE, MG, CBC, CPBILC #### [address] [address] Aircraft Communicator: Pete Ward MD WBC (Bld) [#/Vol] 8.4 10*3/uL Normal 3.5-11.3 [facility] Comment on above: Performed By: #### P T, RAFFAELE, MG, CBC, CPBILC #### [address] [address] Aircraft Communicator: Pete Ward MD Extra Yellow Tubeon 04-13-20 23 Extra Yellow Tube Normal [facility] Comment on above: Performed By: #### P T, RAFFAELE, MG, CBC, CPBILC #### [address] [address] Aircraft Communicator: Pete Ward MD Hgb/Hcton 04-13-2023 Hematocrit (Bld) [Volume fraction] 24.3 % Low 40.7-50.3 [facility] Comment on above: Performed By: #### P T, RAFFAELE, MG, CBC, CPBILC #### [address] [address] Aircraft Communicator: Pete Ward MD Hemoglobin (Bld) [Mass/Vol] 7.2 g/dL Low 13.0-17.0 [facility] Comment on above: Performed By: #### P T, RAFFAELE, MG, CBC, CPBILC #### [facility] [address] [place] [address] Aircraft Communicator: Pete Ward MD Hematocrit (Bld) [Volume fraction] 21.8 % Low 40.7-50.3 [facility] Comment on above: Performed By: #### C MARISEL, BMP #### [facility] [address] [place] [address] Aircraft Communicator: Pete Ward MD Hemoglobin (Bld) [Mass/Vol] 6.2 g/dL Critically low 13.0-17.0 [facility] Comment on above: Performed By: #### C MARISEL BMP #### [address] [address] Aircraft Communicator: Pete Ward MD Basic Metab w/rfx MG 04-11 Anion gap [Moles/Vol] 6 mmol/L Low 9-17 [facility] Comment on above: Performed By: #### P T, RAFFAELE, MG, CBC, CPBILC #### [address] [address] Aircraft Communicator: Pete Ward MD Calcium [Mass/Vol] 9.3 mg/dL Normal 8.6-10.4 [facility] Comment on above: Performed By: #### P T, RAFFAELE, MG, CBC, CPBILC #### [address] [address] Aircraft Communicator: Pete Ward MD Chloride [Moles/Vol] 98 mmol/L Normal 98-107 [facility] Comment on above: Performed By: #### P T, RAFFAELE, MG, CBC, CPBILC #### [address] [address] Aircraft Communicator: Pete Ward MD CO2 [Moles/Vol] 33 mmol/L High 20-31 [facility] Comment on above: Performed By: #### P T, RAFFAELE, MG, CBC, CPBILC #### [employer] [address] [place] [address] Aircraft Communicator: Pete Ward MD Creatinine [Mass/Vol] 0.5 mg/dL Low 0.7-1.2 [facility] Comment on above: Performed By: #### P T, RAFFAELE, MG, CBC, CPBILC #### [address] [address] Aircraft Communicator: Pete Ward MD GFR/1.73 sq M.predicted among non-blacks MDRD (S/P/Bld) [Vol rate/Area] mL/min/{1.73_m2} Normal >60 [facility] Comment on above: Result Comment: These results are not intended for use in patients <18 years of age. eGFR results are calculated without a race factor using the 2020 CKD-EPI equation. Careful clinical correlation is recommended, particularly when comparing to results calculated using previous equations. The CKD-EPI equation is less accurate in patients with extremes of muscle mass, extra-renal metabolism of creatine, excessive creatine ingestion, or following therapy that affects renal tubular secretion. Performed By: #### P T, RAFFAELE, MG, CBC, CPBILC #### [facility] [address] [place] [address] Aircraft Communicator: Pete Ward MD Glucose [Mass/Vol] 91 mg/dL Normal 70-99 [facility] Comment on above: Performed By: #### P T, RAFFAELE, MG, CBC, CPBILC #### [facility] [address] [place] [address] Aircraft Communicator: Pete Ward MD Potassium [Moles/Vol] 4.6 mmol/L Normal 3.7-5.3 [facility] Comment on above: Performed By: #### P T, RAFFAELE, MG, CBC, CPBILC #### [facility] [address] [place] [address] Aircraft Communicator: Pete Ward MD Sodium [Moles/Vol] 137 mmol/L Normal 135-144 [facility] Comment on above: Performed By: #### P T, RAFFAELE, MG, CBC, CPBILC #### [address] [address] Aircraft Communicator: Pete Ward MD Urea nitrogen [Mass/Vol] 11 mg/dL Normal 8-23 [facility] Comment on above: Performed By: #### P T, RAFFAELE, MG, CBC, CPBILC #### [address] [address] Aircraft Communicator: Pete Ward MD CBC with Diffon 04-11-2023 Abs. Basophil 0.00 k/uL Normal 0.0-0.2 [facility] Comment on above: Performed By: #### P T, RAFFAELE, MG, CBC, CPBILC #### [address] [address] Aircraft Communicator: Pete Ward MD Abs.Imm.Granulocyte 0.00 k/uL Normal 0.00-0.30 [facility] Comment on above: Performed By: #### P T, RAFFAELE, MG, CBC, CPBILC #### [address] [address] Aircraft Communicator: Pete Ward MD Abs.Neutrophil (Seg) 5.10 k/uL Normal 1.8-7.7 [facility] Comment on above: Performed By: #### P T, RAFFAELE, MG, CBC, CPBILC #### [address] [address] Aircraft Communicator: Pete Ward MD Basophils/100 WBC (Bld) 0 % Normal 0-2 M [facility] Comment on above: Performed By: #### P T, RAFFAELE, MG, CBC, CPBILC #### [address] [address] Aircraft Communicator: Pete Ward MD Eosinophils (Bld) [#/Vol] 0.38 10*3/uL Normal 0.0-0.4 [facility] Comment on above: Performed By: #### P T, RAFFAELE, MG, CBC, CPBILC #### [address] [address] Aircraft Communicator: Pete Ward MD Eosinophils/100 WBC (Bld) 6 % High 1-4 [facility] Comment on above: Performed By: #### P T, RAFFAELE, MG, CBC, CPBILC #### [address] [address] Aircraft Communicator: Pete Ward MD Immature granulocytes/100 WBC (Bld) 0 % Normal 0 [facility] Comment on above: Performed By: #### P T, RAFFAELE, MG, CBC, CPBILC #### [place] [address] Aircraft Communicator: Pete Ward MD Lymphocytes (Bld) [#/Vol] 0.63 10*3/uL Low 1.0-4.8 [facility] Comment on above: Performed By: #### P T, RAFFAELE, MG, CBC, CPBILC #### [address] [address] Aircraft Communicator: Pete Ward MD Lymphocytes/100 WBC (Bld) 10 % Low 24-44 [facility] Comment on above: Performed By: #### P T, RAFFAELE, MG, CBC, CPBILC #### [place] [address] Aircraft Communicator: Pete Ward MD Monocytes (Bld) [#/Vol] 0.19 10*3/uL Normal 0.1-0.8 [facility] Comment on above: Performed By: #### P T, RAFFAELE, MG, CBC, CPBILC #### [address] [address] Aircraft Communicator: Pete Ward MD Monocytes/100 WBC (Bld) 3 % Normal 1-7 M [facility] Comment on above: Performed By: #### P T, RAFFAELE, MG, CBC, CPBILC #### [address] [address] Aircraft Communicator: Pete Ward MD Morphology Luis (Bld) [Interp] ANISOCYTOSIS PRESENT Normal [facility] Comment on above: Result Comment: HYPO CHROMIA PRESENT Performed By: #### P T, RAFFAELE, MG, CBC, CPBILC #### [address] [address] Aircraft Communicator: Pete Ward MD Neutrophil (Seg) 81 % High 36-66 [facility] Comment on above: Performed By: #### P T, RAFFAELE, MG, CBC, CPBILC #### [address] [address] Aircraft Communicator: Pete Ward MD Erythrocyte distribution width (RBC) [Ratio] 25.2 % High 11.8-14.4 [facility] Comment on above: Performed By: #### P T, RAFFAELE, MG, CBC, CPBILC #### [address] [address] Aircraft Communicator: Pete Ward MD Hematocrit (Bld) [Volume fraction] 26.0 % Low 40.7-50.3 [facility] Comment on above: Performed By: #### P T, RAFFAELE, MG, CBC, CPBILC #### [address] [address] Aircraft Communicator: Pete Ward MD Hemoglobin (Bld) [Mass/Vol] 7.1 g/dL Low 13.0-17.0 [facility] Comment on above: Performed By: #### P T, RAFFAELE, MG, CBC, CPBILC #### [address] [address] Aircraft Communicator: Pete Ward MD MCH (RBC) [Entitic mass] 23.1 pg Low 25.2-33.5 [facility] Comment on above: Performed By: #### P T, RAFFAELE, MG, CBC, CPBILC #### [place] [address] Aircraft Communicator: Pete Ward MD MCHC (RBC) [Mass/Vol] 27.3 g/dL Low 28.4-34.8 [facility] Comment on above: Performed By: #### P T, RAFFAELE, MG, CBC, CPBILC #### [place] [address] Aircraft Communicator: Pete Ward MD MCV (RBC) [Entitic vol] 84.7 fL Normal 82.6-102.9 M [facility] Comment on above: Performed By: #### P T, RAFFAELE, MG, CBC, CPBILC #### [place] [address] Aircraft Communicator: Pete Ward MD NRBC Automated 0.0 per 100 WBC Normal 0.0 [facility] Comment on above: Performed By: #### P T, RAFFAELE, MG, CBC, CPBILC #### [place] [address] Aircraft Communicator: Pete Ward MD Platelet mean volume (Bld) [Entitic vol] 12.4 fL Normal 8.1-13.5 [facility] Comment on above: Performed By: #### P T, RAFFAELE, MG, CBC, CPBILC #### [place] [address] Aircraft Communicator: Pete Ward MD Platelets (Bld) [#/Vol] 256 10*3/uL Normal 138-453 [facility] Comment on above: Performed By: #### P TRAFFAELE MG, CBC, CPBILC #### [address] [address] Aircraft Communicator: Pete Ward MD RBC (Bld) [#/Vol] 3.07 10*6/uL Low 4.21-5.77 [facility] Comment on above: Performed By: #### P T RAFFAELE, MG, CBC, CPBILC #### [address] [address] Aircraft Communicator: Pete Ward MD WBC (Bld) [#/Vol] 6.3 10*3/uL Normal 3.5-11.3 [facility] Comment on above: Performed By: #### P TRAFFAELE MG, CBC, CPBILC #### [address] [address] Aircraft Communicator: Pete Ward MD CBC with Diffon 04-09-2023 Abs. Basophil 0.06 k/uL Normal 0.00-0.20 [facility] Comment on above: Performed By: #### C DP, CMPX #### [address] [address] Aircraft Communicator: Pete Ward MD Abs.Imm.Granulocyte 0.00 k/uL Normal 0.00-0.30 [facility] Comment on above: Performed By: #### C DP, CMPX #### [address] [address] Aircraft Communicator: Pete Ward MD Abs.Neutrophil (Seg) 4.81 k/uL Normal 1.50-8.10 [facility] Comment on above: Performed By: #### C DP, CMPX #### [address] [address] Aircraft Communicator: Pete Ward MD Basophils/100 WBC (Bld) 1 % Normal 0-2 M [facility] Comment on above: Performed By: #### C DP, CMPX #### [address] [address] Aircraft Communicator: Pete Ward MD Eosinophils (Bld) [#/Vol] 0.19 10*3/uL Normal 0.00-0.4 4 [facility] Comment on above: Performed By: #### C DP, CMPX #### [address] [address] Aircraft Communicator: Pete Ward MD Eosinophils/100 WBC (Bld) 3 % Normal 1-4 [facility] Comment on above: Performed By: #### C DP, CMPX #### [address] [address] Aircraft Communicator: Pete Ward MD Immature granulocytes/100 WBC (Bld) 0 % Normal 0 [facility] Comment on above: Performed By: #### C DP, CMPX #### [address] [address] Aircraft Communicator: Pete Ward MD Lymphocytes (Bld) [#/Vol] 0.83 10*3/uL Low 1.10-3.7 0 [facility] Comment on above: Performed By: #### C DP, CMPX #### [address] [address] Aircraft Communicator: Pete Ward MD Lymphocytes/100 WBC (Bld) 13 % Low 24-43 [facility] Comment on above: Performed By: #### C DP, CMPX #### [address] [address] Aircraft Communicator: Pete Ward MD Monocytes (Bld) [#/Vol] 0.51 10*3/uL Normal 0.10-1.20 [facility] Comment on above: Performed By: #### C DP, CMPX #### [address] [address] [employer] Communicator: Pete Ward MD Monocytes/100 WBC (Bld) 8 % Normal 3-12 M [facility] Comment on above: Performed By: #### C DP, CMPX #### [address] [address] Aircraft Communicator: Pete Ward MD Morphology Luis (Bld) [Interp] ANISOCYTOSIS PRESENT Normal [facility] Comment on above: Result Comment: HYPO CHROMIA PRESENT Performed By: #### C DP, CMPX #### [address] [address] Aircraft Communicator: Pete Ward MD Neutrophil (Seg) 75 % High 36-65 [facility] Comment on above: Performed By: #### C DP, CMPX #### [address] [address] Aircraft Communicator: Pete Ward MD Erythrocyte distribution width (RBC) [Ratio] 24.7 % High 11.8-14.4 [facility] Comment on above: Performed By: #### C DP, CMPX #### [place] [address] Aircraft Communicator: Pete Ward MD Hematocrit (Bld) [Volume fraction] 26.9 % Low 40.7-50.3 [facility] Comment on above: Performed By: #### C DP, CMPX #### [address] [address] Aircraft Communicator: Pete Ward MD Hemoglobin (Bld) [Mass/Vol] 7.2 g/dL Low 13.0-17.0 [facility] Comment on above: Performed By: #### C DP, CMPX #### [address] [address] Aircraft Communicator: Pete Ward MD MCH (RBC) [Entitic mass] 22.7 pg Low 25.2-33.5 [facility] Comment on above: Performed By: #### C DP, CMPX #### [address] [address] Aircraft Communicator: Pete Ward MD MCHC (RBC) [Mass/Vol] 26.8 g/dL Low 28.4-34.8 [facility] Comment on above: Performed By: #### C DP, CMPX #### [address] [address] Aircraft Communicator: Pete Ward MD MCV (RBC) [Entitic vol] 84.9 fL Normal 82.6-102.9 M [facility] Comment on above: Performed By: #### C DP, CMPX #### [address] [address] Aircraft Communicator: Pete Ward MD NRBC Automated 0.0 per 100 WBC Normal 0.0 [facility] Comment on above: Performed By: #### C DP, CMPX #### [address] [address] Aircraft Communicator: Pete Ward MD Platelet mean volume (Bld) [Entitic vol] 11.4 fL Normal 8.1-13.5 [facility] Comment on above: Performed By: #### C DP, CMPX #### [address] [address] Aircraft Communicator: Pete Ward MD Platelets (Bld) [#/Vol] 230 10*3/uL Normal 138-453 [facility] Comment on above: Performed By: #### C DP, CMPX #### [facility] [address] [place] [address] Aircraft Communicator: Pete Ward MD RBC (Bld) [#/Vol] 3.17 10*6/uL Low 4.21-5.77 [facility] Comment on above: Performed By: #### C DP, CMPX #### [facility] [address] [place] [address] Aircraft Communicator: Pete Ward MD WBC (Bld) [#/Vol] 6.4 10*3/uL Normal 3.5-11.3 [facility] Comment on above: Performed By: #### C DP, CMPX #### [facility] [address] [place] [address] Aircraft Communicator: Pete Ward MD Comp Metabolic Pr/rfx MGon 1 06-09-2022 Albumin [Mass/Vol] 2.5 g/dL Low 3.5-5.2 [facility] Comment on above: Performed By: #### C DP, CMPX #### [facility] [address] [place] [address] Aircraft Communicator: Pete Ward MD Albumin/Glob Ratio 0.7 Low 1.0-2.5 [facility] Comment on above: Performed By: #### C DP, CMPX #### [facility] [address] [place] [address] Aircraft Communicator: Pete Ward MD Alkaline Phos 82 U/L Normal 40-129 [facility] Comment on above: Performed By: #### C DP, CMPX #### [facility] [address] [place] [address] Aircraft Communicator: Pete Ward MD ALT [Catalytic activity/Vol] 12 U/L Normal 5-41 [facility] Comment on above: Performed By: #### C DP, CMPX #### [facility] [address] [place] [address] Aircraft Communicator: Pete Ward MD Anion gap [Moles/Vol] 6 mmol/L Low 9-17 [facility] Comment on above: Performed By: #### C DP, CMPX #### [facility] [address] [place] [address] Aircraft Communicator: Pete Ward MD AST [Catalytic activity/Vol] 23 U/L Normal <40 [facility] Comment on above: Performed By: #### C DP, CMPX #### [facility] [address] [place] [address] Aircraft Communicator: Pete aWrd MD Bilirubin [Mass/Vol] 0.3 mg/dL Normal 0.3-1.2 [facility] Comment on above: Performed By: #### C DP, CMPX #### [address] [address] Aircraft Communicator: Pete Ward MD Calcium [Mass/Vol] 9.0 mg/dL Normal 8.6-10.4 [facility] Comment on above: Performed By: #### C DP, CMPX #### [address] [address] Aircraft Communicator: Pete Ward MD Chloride [Moles/Vol] 98 mmol/L Normal 98-107 [facility] Comment on above: Performed By: #### C DP, CMPX #### [address] [address] Aircraft Communicator: Pete Ward MD CO2 [Moles/Vol] 34 mmol/L High 20-31 [facility] Comment on above: Performed By: #### C DP, CMPX #### [facility] [address] [place] [address] Aircraft Communicator: Pete Ward MD Creatinine [Mass/Vol] 0.5 mg/dL Low 0.7-1.2 [facility] Comment on above: Performed By: #### C DP, CMPX #### [facility] [address] [place] [address] Aircraft Communicator: Pete Ward MD GFR/1.73 sq M.predicted among non-blacks MDRD (S/P/Bld) [Vol rate/Area] mL/min/{1.73_m2} Normal >60 [facility] Comment on above: Result Comment: These results are not intended for use in patients <18 years of age. eGFR results are calculated without a race factor using the 2020 CKD-EPI equation. Careful clinical correlation is recommended, particularly when comparing to results calculated using previous equations. The CKD-EPI equation is less accurate in patients with extremes of muscle mass, extra-renal metabolism of creatine, excessive creatine ingestion, or following therapy that affects renal tubular secretion. Performed By: #### C DP, CMPX #### [facility] [address] [place] [address] Aircraft Communicator: Pete Ward MD Glucose [Mass/Vol] 114 mg/dL High 70-99 [facility] Comment on above: Performed By: #### C DP, CMPX #### [facility] [address] [place] [address] Aircraft Communicator: Pete Ward MD Potassium [Moles/Vol] 3.9 mmol/L Normal 3.7-5.3 [facility] Comment on above: Performed By: #### C DP, CMPX #### [facility] [address] [place] [address] Aircraft Communicator: Pete Ward MD Protein [Mass/Vol] 5.9 g/dL Low 6.4-8.3 [facility] Comment on above: Performed By: #### C DP, CMPX #### [facility] [address] [place] [address] Aircraft Communicator: Pete Ward MD Sodium [Moles/Vol] 138 mmol/L Normal 135-144 [facility] Comment on above: Performed By: #### C DP, CMPX #### [address] [id number] Aircraft Communicator: Pete Ward MD Urea nitrogen [Mass/Vol] 11 mg/dL Normal 8-23 [facility] Comment on above: Performed By: #### C DP, CMPX #### [address] [id number] Aircraft Communicator: Pete Ward MD FL MODIFIED BARIUM SWALLOW W VIDEOon 04-09-2023 FL MODIFIED BARIUM SWALLOW W VIDEO EXAMINATION: MODIFIED BARIUM SWALLOW WAS PERFORMED IN CONJUNCTION WITH SPEECH PATHOLOGY SERVICES TECHNIQUE: Under fluoroscopic evaluation cineradiography/video radiography recordings were performed in conjunction with the speech-language pathologist ([employer] P[employer]). Various liquid, solid and/or semi-solid barium preparations were used to assess swallowing function. FLUOROSCOPY DOSE AND TYPE: Radiation Exposure Index: DAP [id number], COMPARISON: None HISTORY: ORDERING SYSTEM PROVIDED HISTORY: Check aspiration risk TECHNOLOGIST PROVIDED HISTORY: Check aspiration risk FINDINGS: Thin liquid: Laryngeal penetration to the cords when given by spoon. Aspiration when given by straw. Thick liquid: Given by spoon laryngeal penetration to the vocal cords. Puree: Laryngeal penetration. IMPRESSION: Aspiration of thin liquid when given by straw. Laryngeal penetration of thick liquid and puree. Please see separate speech pathology report for full discussion of findings and recommendations. Interpreted by: Sp Bonilla MD Signed by: Sp Bonilla MD 04/09/23 Edited Result - FINAL Normal [facility] Basic Metabolic Profon 04-08 Anion gap [Moles/Vol] 5 mmol/L Low 9-17 [facility] Comment on above: Performed By: #### P T, RAFFAELE, MG, CBC, CPBILC #### [address] [id number] Aircraft Communicator: Pete Ward MD Calcium [Mass/Vol] 8.8 mg/dL Normal 8.6-10.4 [facility] Comment on above: Performed By: #### P T, RAFFAELE, MG, CBC, CPBILC #### [facility] [address] [place] [address] Aircraft Communicator: Pete Ward MD Chloride [Moles/Vol] 100 mmol/L Normal 98-107 [facility] Comment on above: Performed By: #### P T, RAFFAELE, MG, CBC, CPBILC #### [facility] [address] [place] [address] Aircraft Communicator: Pete Ward MD CO2 [Moles/Vol] 33 mmol/L High 20-31 [facility] Comment on above: Performed By: #### P T, RAFFAELE, MG, CBC, CPBILC #### [facility] [address] [place] [address] Aircraft Communicator: Pete Ward MD Creatinine [Mass/Vol] 0.4 mg/dL Low 0.7-1.2 [facility] Comment on above: Performed By: #### P T, RAFFAELE, MG, CBC, CPBILC #### [facility] [address] [place] [address] Aircraft Communicator: Pete Ward MD GFR/1.73 sq M.predicted among non-blacks MDRD (S/P/Bld) [Vol rate/Area] mL/min/{1.73_m2} Normal >60 [facility] Comment on above: Result Comment: These results are not intended for use in patients <18 years of age. eGFR results are calculated without a race factor using the 2020 CKD-EPI equation. Careful clinical correlation is recommended, particularly when comparing to results calculated using previous equations. The CKD-EPI equation is less accurate in patients with extremes of muscle mass, extra-renal metabolism of creatine, excessive creatine ingestion, or following therapy that affects renal tubular secretion. Performed By: #### P T, RAFFAELE, MG, CBC, CPBILC #### [facility] [address] [place] [address] Aircraft Communicator: Pete Ward MD Glucose [Mass/Vol] 131 mg/dL High 70-99 [facility] Comment on above: Performed By: #### P T, RAFFAELE, MG, CBC, CPBILC #### [address] [address] Aircraft Communicator: Pete Ward MD Potassium [Moles/Vol] 3.6 mmol/L Low 3.7-5.3 [facility] Comment on above: Performed By: #### P T, RAFFAELE, MG, CBC, CPBILC #### [address] [address] Aircraft Communicator: Pete Ward MD Sodium [Moles/Vol] 138 mmol/L Normal 135-144 [facility] Comment on above: Performed By: #### P T, RAFFAELE, MG, CBC, CPBILC #### [address] [address] Aircraft Communicator: Pete Ward MD Urea nitrogen [Mass/Vol] 10 mg/dL Normal 8-23 [facility] Comment on above: Performed By: #### P T, RAFFAELE, MG, CBC, CPBILC #### [address] [address] Aircraft Communicator: Pete Ward MD CBCon 04-08-2023 Platelet, Fluoresc. 226 k/uL Normal 138-453 [facility] Comment on above: Performed By: #### P T, RAFFAELE, MG, CBC, CPBILC #### [address] [address] Aircraft Communicator: Pete Ward MD PLT, Immature Fract. 9.2 % Normal 1.1-10.3 [facility] Comment on above: Performed By: #### P T, RAFFAELE, MG, CBC, CPBILC #### [facility] [address] [place] [address] Aircraft Communicator: Pete Ward MD Erythrocyte distribution width (RBC) [Ratio] 24.4 % High 11.8-14.4 [facility] Comment on above: Performed By: #### P T, RAFFAELE, MG, CBC, CPBILC #### [address] [address] Aircraft Communicator: Pete Ward MD Hematocrit (Bld) [Volume fraction] 26.5 % Low 40.7-50.3 [facility] Comment on above: Performed By: #### P T, RAFFAELE, MG, CBC, CPBILC #### [place] [address] Aircraft Communicator: Pete Ward MD Hemoglobin (Bld) [Mass/Vol] 7.2 g/dL Low 13.0-17.0 [facility] Comment on above: Performed By: #### P T, RAFFAELE, MG, CBC, CPBILC #### [address] [address] Aircraft Communicator: Pete Ward MD MCH (RBC) [Entitic mass] 23.0 pg Low 25.2-33.5 [facility] Comment on above: Performed By: #### P T, RAFFAELE, MG, CBC, CPBILC #### [address] [address] Aircraft Communicator: Pete Ward MD MCHC (RBC) [Mass/Vol] 27.2 g/dL Low 28.4-34.8 [facility] Comment on above: Performed By: #### P T, RAFFAELE, MG, CBC, CPBILC #### [address] [address] Aircraft Communicator: Pete Ward MD MCV (RBC) [Entitic vol] 84.7 fL Normal 82.6-102.9 M [facility] Comment on above: Performed By: #### P T, RAFFAELE, MG, CBC, CPBILC #### [address] [address] Aircraft Communicator: Pete Ward MD NRBC Automated 0.0 per 100 WBC Normal 0.0 [facility] Comment on above: Performed By: #### P T, RAFFAELE, MG, CBC, CPBILC #### [address] [address] Aircraft Communicator: Pete Ward MD Platelet Count See Reflexed IPF Result Normal 138-453 [facility] Comment on above: Performed By: #### P T, RAFFAELE, MG, CBC, CPBILC #### [address] [address] Aircraft Communicator: Pete Ward MD RBC (Bld) [#/Vol] 3.13 10*6/uL Low 4.21-5.77 [facility] Comment on above: Performed By: #### P T, RAFFAELE, MG, CBC, CPBILC #### [address] [address] Aircraft Communicator: Pete Ward MD WBC (Bld) [#/Vol] 5.8 10*3/uL Normal 3.5-11.3 [facility] Comment on above: Performed By: #### P T, RAFFAELE, MG, CBC, CPBILC #### [address] [address] Aircraft Communicator: Pete Ward MD Liver Profileon 04-08-2023 Albumin [Mass/Vol] 2.3 g/dL Low 3.5-5.2 [facility] Comment on above: Performed By: #### P T, RAFFAELE, MG, CBC, CPBILC #### [address] [address] Aircraft Communicator: Pete Ward MD Albumin/Glob Ratio 0.7 Low 1.0-2.5 [facility] Comment on above: Performed By: #### P T, RAFFAELE, MG, CBC, CPBILC #### [address] [address] Aircraft Communicator: Pete Ward MD Alkaline Phos 75 U/L Normal 40-129 [facility] Comment on above: Performed By: #### P T, RAFFAELE, MG, CBC, CPBILC #### [facility] [address] [place] [address] Aircraft Communicator: Pete Ward MD ALT [Catalytic activity/Vol] 10 U/L Normal 5-41 [facility] Comment on above: Performed By: #### P T, RAFFAELE, MG, CBC, CPBILC #### [address] [address] Aircraft Communicator: Pete Ward MD AST [Catalytic activity/Vol] 22 U/L Normal <40 [facility] Comment on above: Performed By: #### P T, RAFFAELE, MG, CBC, CPBILC #### [address] [address] Aircraft Communicator: Pete Ward MD Bilirubin [Mass/Vol] 0.2 mg/dL Low 0.3-1.2 [facility] Comment on above: Performed By: #### P T, RAFFAELE, MG, CBC, CPBILC #### [facility] [address] [place] [address] Aircraft Communicator: Pete Ward MD Bilirubin, Indirect 0.1 mg/dL Normal 0.0-1.0 [facility] Comment on above: Performed By: #### P T, RAFFAELE, MG, CBC, CPBILC #### [facility] [address] [place] [address] Aircraft Communicator: Pete Ward MD Bilirubin.indirect [Mass/Vol] 0.1 mg/dL Normal <0.3 [facility] Comment on above: Performed By: #### P TCASHON MG, CBC, CPBILC #### [facility] [place] [address] Aircraft Communicator: Pete Ward MD Protein [Mass/Vol] 5.5 g/dL Low 6.4-8.3 [facility] Comment on above: Performed By: #### P T, RFAFAELE, MG, CBC, CPBILC #### [address] [address] Aircraft Communicator: Pete Ward MD XR CHEST PORTABLEon 04-08-20 XR CHEST PORTABLE EXAMINATION: ONE XRAY VIEW OF THE CHEST 04/08/2023 12:30 pm COMPARISON: March 21, 2023 HISTORY: ORDERING SYSTEM PROVIDED HISTORY: hypoxic TECHNOLOGIST PROVIDED HISTORY: hypoxic FINDINGS: Enteric tube extends below the diaphragm. The distal aspect of this tube is not seen. Mild improvement of the patient's pulmonary edema. Left-sided pleural effusion. Right perihilar atelectasis. No pneumothorax. Stable cardiac and mediastinal silhouettes. IMPRESSION: Improvement of the patient's pulmonary edema. Small left-sided pleural effusion. Interpreted by: Ajith Russell MD Signed by: Ajith Russell MD 04/08/23 Final result Normal [facility] Basic Metabolic Profon 04-07 Anion gap [Moles/Vol] 9 mmol/L Normal 9-17 [facility] Comment on above: Performed By: #### C BC, BMP #### [facility] [address] [place] [address] Aircraft Communicator: Pete Ward MD Calcium [Mass/Vol] 8.8 mg/dL Normal 8.6-10.4 [facility] Comment on above: Performed By: #### C BC, BMP #### [facility] [address] [place] [address] Aircraft Communicator: Pete Ward MD Chloride [Moles/Vol] 97 mmol/L Low 98-107 [facility] Comment on above: Performed By: #### C BC, BMP #### [facility] [address] [place] [address] Aircraft Communicator: Pete Ward MD CO2 [Moles/Vol] 30 mmol/L Normal 20-31 [facility] Comment on above: Performed By: #### C BC, BMP #### [facility] [address] [place] [address] Aircraft Communicator: Pete Ward MD Creatinine [Mass/Vol] 0.5 mg/dL Low 0.7-1.2 [facility] Comment on above: Performed By: #### C BC, BMP #### [address] [address] Aircraft Communicator: Pete Ward MD GFR/1.73 sq M.predicted among non-blacks MDRD (S/P/Bld) [Vol rate/Area] mL/min/{1.73_m2} Normal >60 [facility] Comment on above: Result Comment: These results are not intended for use in patients <18 years of age. eGFR results are calculated without a race factor using the 2020 CKD-EPI equation. Careful clinical correlation is recommended, particularly when comparing to results calculated using previous equations. The CKD-EPI equation is less accurate in patients with extremes of muscle mass, extra-renal metabolism of creatine, excessive creatine ingestion, or following therapy that affects renal tubular secretion. Performed By: #### C BC, BMP #### [address] [address] Aircraft Communicator: Pete Ward MD Glucose [Mass/Vol] 78 mg/dL Normal 70-99 [facility] Comment on above: Performed By: #### C BC, BMP #### [address] [address] Aircraft Communicator: Pete Ward MD Potassium [Moles/Vol] 3.8 mmol/L Normal 3.7-5.3 [facility] Comment on above: Performed By: #### C BC, BMP #### [address] [address] Aircraft Communicator: Pete Ward MD Sodium [Moles/Vol] 136 mmol/L Normal 135-144 [facility] Comment on above: Performed By: #### C BC, BMP #### [address] [address] Aircraft Communicator: Pete Ward MD Urea nitrogen [Mass/Vol] 9 mg/dL Normal 8-23 [facility] Comment on above: Performed By: #### C BC, BMP #### [address] [address] Aircraft Communicator: Pete Ward MD CBCon 04-07-2023 Platelet, Fluoresc. 247 k/uL Normal 138-453 [facility] Comment on above: Performed By: #### C BC, BMP #### [address] [address] Aircraft Communicator: Pete Ward MD PLT, Immature Fract. 10.3 % Normal 1.1-10.3 [facility] Comment on above: Performed By: #### C BC, BMP #### [address] [address] Aircraft Communicator: Pete Ward MD Erythrocyte distribution width (RBC) [Ratio] 24.1 % High 11.8-14.4 [facility] Comment on above: Performed By: #### C BC, BMP #### [facility] [address] [place] [address] Aircraft Communicator: Pete Ward MD Hematocrit (Bld) [Volume fraction] 27.4 % Low 40.7-50.3 [facility] Comment on above: Performed By: #### C BC, BMP #### [address] [address] Aircraft Communicator: Pete Ward MD Hemoglobin (Bld) [Mass/Vol] 7.3 g/dL Low 13.0-17.0 [facility] Comment on above: Performed By: #### C BC, BMP #### [address] [address] Aircraft Communicator: Ptee Ward MD MCH (RBC) [Entitic mass] 22.4 pg Low 25.2-33.5 [facility] Comment on above: Performed By: #### C BC, BMP #### [address] [address] Aircraft Communicator: Pete Ward MD MCHC (RBC) [Mass/Vol] 26.6 g/dL Low 28.4-34.8 [facility] Comment on above: Performed By: #### C BC, BMP #### [address] [address] Aircraft Communicator: Pete Ward MD MCV (RBC) [Entitic vol] 84.0 fL Normal 82.6-102.9 M [facility] Comment on above: Performed By: #### C BC, BMP #### [address] [address] Aircraft Communicator: Pete Ward MD NRBC Automated 0.0 per 100 WBC Normal 0.0 [facility] Comment on above: Performed By: #### C BC, BMP #### [address] [address] Aircraft Communicator: Pete Ward MD Platelet Count See Reflexed IPF Result Normal 138-453 [facility] Comment on above: Performed By: #### C BC, BMP #### [address] [address] Aircraft Communicator: Pete Ward MD RBC (Bld) [#/Vol] 3.26 10*6/uL Low 4.21-5.77 [facility] Comment on above: Performed By: #### C BC, BMP #### [address] [address] Aircraft Communicator: Pete Ward MD WBC (Bld) [#/Vol] 7.1 10*3/uL Normal 3.5-11.3 [facility] Comment on above: Performed By: #### C BC, BMP #### [address] [address] Aircraft Communicator: Pete Ward MD Basic Metabolic Profon 04-06 Anion gap [Moles/Vol] 11 mmol/L Normal 9-17 [facility] Comment on above: Performed By: #### C DP, CMPX #### [address] [address] Aircraft Communicator: Pete Ward MD Calcium [Mass/Vol] 9.4 mg/dL Normal 8.6-10.4 [facility] Comment on above: Performed By: #### C DP, CMPX #### [address] [address] Aircraft Communicator: Pete Ward MD Chloride [Moles/Vol] 93 mmol/L Low 98-107 [facility] Comment on above: Performed By: #### C DP, CMPX #### [facility] [address] [place] [address] Aircraft Communicator: Pete Ward MD CO2 [Moles/Vol] 31 mmol/L Normal 20-31 [facility] Comment on above: Performed By: #### C DP, CMPX #### [facility] [address] [place] [address] Aircraft Communicator: Pete Ward MD Creatinine [Mass/Vol] 0.6 mg/dL Low 0.7-1.2 [facility] Comment on above: Performed By: #### C DP, CMPX #### [facility] [address] [place] [address] Aircraft Communicator: Pete Ward MD GFR/1.73 sq M.predicted among non-blacks MDRD (S/P/Bld) [Vol rate/Area] mL/min/{1.73_m2} Normal >60 [facility] Comment on above: Result Comment: These results are not intended for use in patients <18 years of age. eGFR results are calculated without a race factor using the 2020 CKD-EPI equation. Careful clinical correlation is recommended, particularly when comparing to results calculated using previous equations. The CKD-EPI equation is less accurate in patients with extremes of muscle mass, extra-renal metabolism of creatine, excessive creatine ingestion, or following therapy that affects renal tubular secretion. Performed By: #### C DP, CMPX #### [facility] [address] [place] [address] Aircraft Communicator: Pete Ward MD Glucose [Mass/Vol] 71 mg/dL Normal 70-99 [facility] Comment on above: Performed By: #### C DP, CMPX #### [facility] [address] [place] [address] Aircraft Communicator: Pete Ward MD Potassium [Moles/Vol] 3.6 mmol/L Low 3.7-5.3 [facility] Comment on above: Performed By: #### C DP, CMPX #### [facility] [address] [place] [address] Aircraft Communicator: Pete Ward MD Sodium [Moles/Vol] 135 mmol/L Normal 135-144 [facility] Comment on above: Performed By: #### C DP, CMPX #### [facility] [address] [place] [address] Aircraft Communicator: Pete Ward MD Urea nitrogen [Mass/Vol] 10 mg/dL Normal 8-23 [facility] Comment on above: Performed By: #### C DP, CMPX #### [facility] [address] [place] [address] Aircraft Communicator: Pete Ward MD C-Reactive Proteinon CRP [Mass/Vol] 167.6 mg/L High 0.0-5.0 [facility] Comment on above: Performed By: #### C DP, CMPX #### [address] [address] Aircraft Communicator: Pete Ward MD CBCon 04-06-2023 Erythrocyte distribution width (RBC) [Ratio] 24.2 % High 11.8-14.4 [facility] Comment on above: Performed By: #### C DP, CMPX #### [address] [address] Aircraft Communicator: Pete Ward MD Hematocrit (Bld) [Volume fraction] 29.8 % Low 40.7-50.3 [facility] Comment on above: Performed By: #### C DP, CMPX #### [facility] [address] [place] [address] Aircraft Communicator: Pete Ward MD Hemoglobin (Bld) [Mass/Vol] 8.0 g/dL Low 13.0-17.0 [facility] Comment on above: Performed By: #### C DP, CMPX #### [address] [address] Aircraft Communicator: Pete Ward MD MCH (RBC) [Entitic mass] 22.3 pg Low 25.2-33.5 [facility] Comment on above: Performed By: #### C DP, CMPX #### [facility] [address] [place] [address] Aircraft Communicator: Pete Ward MD MCHC (RBC) [Mass/Vol] 26.8 g/dL Low 28.4-34.8 [facility] Comment on above: Performed By: #### C DP, CMPX #### [address] [address] Aircraft Communicator: Pete Ward MD MCV (RBC) [Entitic vol] 83.0 fL Normal 82.6-102.9 M [facility] Comment on above: Performed By: #### C DP, CMPX #### [address] [address] Aircraft Communicator: Pete Ward MD NRBC Automated 0.0 per 100 WBC Normal 0.0 [facility] Comment on above: Performed By: #### C DP, CMPX #### [address] [address] Aircraft Communicator: Pete Ward MD Platelet Count See Reflexed IPF Result Normal 138-453 [facility] Comment on above: Performed By: #### C DP, CMPX #### [place] [address] Aircraft Communicator: Pete Ward MD Platelet, Fluoresc. 294 k/uL Normal 138-453 [facility] Comment on above: Performed By: #### C DP, CMPX #### [place] [address] Aircraft Communicator: Pete Ward MD PLT, Immature Fract. 13.0 % High 1.1-10.3 [facility] Comment on above: Performed By: #### C DP, CMPX #### [address] [address] Aircraft Communicator: Pete Ward MD RBC (Bld) [#/Vol] 3.59 10*6/uL Low 4.21-5.77 [facility] Comment on above: Performed By: #### C DP, CMPX #### [employer] [address] [place] [address] Aircraft Communicator: Pete Ward MD WBC (Bld) [#/Vol] 12.3 10*3/uL High 3.5-11.3 [facility] Comment on above: Performed By: #### C DP, CMPX #### [employer] [address] [place] [address] Aircraft Communicator: Pete Ward MD CT ABDOMEN PELVIS W IV CONTR Renetta 04-06-2023 CT ABDOMEN PELVIS W IV CONTRAST EXAMINATION: CT OF THE ABDOMEN AND PELVIS WITH CONTRAST 04/05/2023 10:47 pm TECHNIQUE: CT of the abdomen and pelvis was performed with the administration of intravenous contrast. Multiplanar reformatted images are provided for review. Automated exposure control, iterative reconstruction, and/or weight based adjustment of the mA/kV was utilized to reduce the radiation dose to as low as reasonably achievable. COMPARISON: CT abdomen/pelvis without contrast dated 02/06/2016. HISTORY: ORDERING SYSTEM PROVIDED HISTORY: Dislodged PEG 10/30, evaluate for elaine and evaluation of position of elaine catheter placed in PEG tract TECHNOLOGIST PROVIDED HISTORY: Dislodged PEG 10/30, evaluate for elaine and evaluation of position of elaine catheter placed in PEG tract Reason for Exam: dislodged PEG, elaine in as replacement of PEG FINDINGS: Lower Chest: There are small bilateral pleural effusions and mild posterior bibasilar atelectasis. An OG tube is in place. Organs: The liver and gallbladder are unremarkable. At the junction of the head and body of the pancreas anteriorly, there is a 1.5 cm cystic lesion the does not appear to communicate with main pancreatic duct. No solid component is identified. The pancreas otherwise is unremarkable. The spleen, adrenal glands, kidneys and visualized ureters are noted for multiple bilateral simple renal cysts not requiring imaging follow-up. GI/Bowel: Stomach and duodenal sweep demonstrate no acute abnormality. There is no evidence of bowel obstruction. No evidence of abnormal bowel wall thickening or distension. No evidence of appendicitis but the appendix is not seen. Pelvis: The bladder and reproductive organs are unremarkable. Peritoneum/Retroperit oneum: No evidence of ascites or free air. No evidence of lymphadenopathy. Aorta is normal in caliber. Bones/Soft Tissues: No acute bone or soft tissue abnormality evident. IMPRESSION: Small bilateral pleural effusions and mild posterior bibasilar atelectasis. 1.5 cm cyst at the anterior aspect of the pancreas at the junction of the head and body. Follow-up MRI with and without contrast recommended for further evaluation. This cyst is new compared to the CT of 02/06/2016. Interpreted by: Hilton Del Rio MD Signed by: Hilton Del Rio MD 04/06/23 Final result Normal [facility] Extra Yellow Tubeon 04-06-20 Extra Yellow Tube Normal [facility] Comment on above: Performed By: #### B MP, CBC, XYEL #### [facility] [place] [address] Aircraft Communicator: Pete Ward MD XR ABDOMEN FOR NG/OG/NE TUBE PLACEMENTon 04-06-2023 XR ABDOMEN FOR NG/OG/NE TUBE PLACEMENT EXAMINATION: ONE SUPINE XRAY VIEW(S) OF THE ABDOMEN 04/06/2023 6:12 pm COMPARISON: 04/06/2023 at 9:46 a.m. HISTORY: ORDERING SYSTEM PROVIDED HISTORY: Confirmation of course of NG/OG/NE tube and location of tip of tube TECHNOLOGIST PROVIDED HISTORY: Confirmation of course of NG/OG/NE tube and location of tip of tube Portable?->Yes FINDINGS: Nasogastric tube well positioned in the stomach. Nonobstructive bowel gas pattern. No evidence of free air. IMPRESSION: Nasogastric tube well positioned in the stomach fundus with sidehole below the GE junction. Interpreted by: Danitza Sharp MD Signed by: Danitza Sharp MD 04/06/23 Final result Normal [facility] XR ABDOMEN FOR NG/OG/NE TUBE PLACEMENTon 04-05-2023 XR ABDOMEN FOR NG/OG/NE TUBE PLACEMENT EXAMINATION: ONE SUPINE X-RAY VIEW(S) OF THE ABDOMEN 04/05/2023 6:27 pm COMPARISON: April 03, 2023 HISTORY: ORDERING SYSTEM PROVIDED HISTORY: Confirmation of course of NG/OG/NE tube and location of tip of tube. TECHNOLOGIST PROVIDED HISTORY: Confirmation of course of NG/OG/NE tube and location of tip of tube. Portable? Yes FINDINGS: Nasogastric tube well position in the stomach. Nonobstructive bowel gas pattern. Abdominal drain seen on the left side. No evidence of free air. IMPRESSION: Well position nasogastric tube in the stomach. Nonobstructive bowel gas pattern. Interpreted by: Danitza Sharp MD Signed by: Danitza Sharp MD 04/05/23 Final result Normal [facility] Basic Metabolic Profon 04-04 Anion gap [Moles/Vol] 7 mmol/L Low 9-17 [facility] Comment on above: Performed By: #### P T, RAFFAELE, MG, CBC, CPBILC #### [place] [address] Aircraft Communicator: Pete Ward MD Calcium [Mass/Vol] 9.3 mg/dL Normal 8.6-10.4 [facility] Comment on above: Performed By: #### P T, RAFFAELE, MG, CBC, CPBILC #### [facility] [address] [place] [address] Aircraft Communicator: Pete Ward MD Chloride [Moles/Vol] 98 mmol/L Normal 98-107 [facility] Comment on above: Performed By: #### P T, RAFFAELE, MG, CBC, CPBILC #### [facility] [address] [place] [address] Aircraft Communicator: Pete Ward MD CO2 [Moles/Vol] 32 mmol/L High -31 [facility] Comment on above: Performed By: #### P T, RAFFAELE, MG, CBC, CPBILC #### [facility] [address] [place] [address] Aircraft Communicator: Pete Ward MD Creatinine [Mass/Vol] 0.4 mg/dL Low 0.7-1.2 [facility] Comment on above: Performed By: #### P T, RAFFAELE, MG, CBC, CPBILC #### [address] [address] Aircraft Communicator: Pete Ward MD GFR/1.73 sq M.predicted among non-blacks MDRD (S/P/Bld) [Vol rate/Area] mL/min/{1.73_m2} Normal >60 [facility] Comment on above: Result Comment: These results are not intended for use in patients <18 years of age. eGFR results are calculated without a race factor using the 2020 CKD-EPI equation. Careful clinical correlation is recommended, particularly when comparing to results calculated using previous equations. The CKD-EPI equation is less accurate in patients with extremes of muscle mass, extra-renal metabolism of creatine, excessive creatine ingestion, or following therapy that affects renal tubular secretion. Performed By: #### P T, RAFFAELE, MG, CBC, CPBILC #### [address] [address] Aircraft Communicator: Pete Ward MD Glucose [Mass/Vol] 86 mg/dL Normal 70-99 [facility] Comment on above: Performed By: #### P T, RAFFAELE, MG, CBC, CPBILC #### [address] [address] Aircraft Communicator: Pete Ward MD Potassium [Moles/Vol] 4.2 mmol/L Normal 3.7-5.3 [facility] Comment on above: Performed By: #### P T, RAFFAELE, MG, CBC, CPBILC #### [address] [address] Aircraft Communicator: Pete Ward MD Sodium [Moles/Vol] 137 mmol/L Normal 135-144 [facility] Comment on above: Performed By: #### P T, RAFFAELE, MG, CBC, CPBILC #### [address] [address] Aircraft Communicator: Pete Ward MD Urea nitrogen [Mass/Vol] 10 mg/dL Normal 8-23 [facility] Comment on above: Performed By: #### P T, RAFFAELE, MG, CBC, CPBILC #### [address] [address] Aircraft Communicator: Pete Ward MD CBC with Diffon 04-04-2023 Abs. Basophil 0.00 k/uL Normal 0.0-0.2 [facility] Comment on above: Performed By: #### C BC, BMP #### [address] [address] Aircraft Communicator: Pete Ward MD Abs.Imm.Granulocyte 0.00 k/uL Normal 0.00-0.30 [facility] Comment on above: Performed By: #### C BC, BMP #### [place] [address] Aircraft Communicator: Pete Ward MD Abs.Neutrophil (Seg) 10.50 k/uL High 1.8-7.7 [facility] Comment on above: Performed By: #### C BC, BMP #### [address] [address] Aircraft Communicator: Pete Ward MD Basophils/100 WBC (Bld) 0 % Normal 0-2 M [facility] Comment on above: Performed By: #### C BC, BMP #### [address] [address] Aircraft Communicator: Pete Ward MD Eosinophils (Bld) [#/Vol] 0.12 10*3/uL Normal 0.0-0.4 [facility] Comment on above: Performed By: #### C BC, BMP #### [address] [address] Aircraft Communicator: Pete Ward MD Eosinophils/100 WBC (Bld) 1 % Normal 1-4 [facility] Comment on above: Performed By: #### C BC, BMP #### [address] [address] Aircraft Communicator: Pete Ward MD Immature granulocytes/100 WBC (Bld) 0 % Normal 0 [facility] Comment on above: Performed By: #### C BC, BMP #### [address] [address] Aircraft Communicator: Pete Ward MD Lymphocytes (Bld) [#/Vol] 0.71 10*3/uL Low 1.0-4.8 [facility] Comment on above: Performed By: #### C BC, BMP #### [address] [address] Aircraft Communicator: Pete Ward MD Lymphocytes/100 WBC (Bld) 6 % Low 24-44 [facility] Comment on above: Performed By: #### C BC, BMP #### [address] [address] Aircraft Communicator: Pete Ward MD Monocytes (Bld) [#/Vol] 0.47 10*3/uL Normal 0.1-0.8 [facility] Comment on above: Performed By: #### C BC, BMP #### [address] [address] Aircraft Communicator: Pete Ward MD Monocytes/100 WBC (Bld) 4 % Normal 1-7 M [facility] Comment on above: Performed By: #### C BC, BMP #### [address] [address] Aircraft Communicator: Pete Ward MD Morphology Luis (Bld) [Interp] ANISOCYTOSIS PRESENT Normal [facility] Comment on above: Result Comment: HYPO CHROMIA PRESENT Performed By: #### C BC, BMP #### [address] [address] Aircraft Communicator: Pete Ward MD Neutrophil (Seg) 89 % High 36-66 [facility] Comment on above: Performed By: #### C BC, BMP #### [address] [address] Aircraft Communicator: Pete Ward MD Erythrocyte distribution width (RBC) [Ratio] 23.0 % High 11.8-14.4 [facility] Comment on above: Performed By: #### C BC, BMP #### [address] [address] Aircraft Communicator: Pete Ward MD Hematocrit (Bld) [Volume fraction] 28.9 % Low 40.7-50.3 [facility] Comment on above: Performed By: #### C BC, BMP #### [address] [address] Aircraft Communicator: Pete Ward MD Hemoglobin (Bld) [Mass/Vol] 7.6 g/dL Low 13.0-17.0 [facility] Comment on above: Performed By: #### C BC, BMP #### [address] [address] Aircraft Communicator: Pete Ward MD MCH (RBC) [Entitic mass] 22.2 pg Low 25.2-33.5 [facility] Comment on above: Performed By: #### C BC, BMP #### [address] [address] Aircraft Communicator: Pete Ward MD MCHC (RBC) [Mass/Vol] 26.3 g/dL Low 28.4-34.8 [facility] Comment on above: Performed By: #### C BC, BMP #### [address] [address] Aircraft Communicator: Pete Ward MD MCV (RBC) [Entitic vol] 84.5 fL Normal 82.6-102.9 M [facility] Comment on above: Performed By: #### C BC, BMP #### [address] [address] Aircraft Communicator: Pete Ward MD NRBC Automated 0.0 per 100 WBC Normal 0.0 [facility] Comment on above: Performed By: #### C BC, BMP #### [address] [address] Aircraft Communicator: Pete Ward MD Platelet Count See Reflexed IPF Result Normal 138-453 [facility] Comment on above: Performed By: #### C BC, BMP #### [address] [address] Aircraft Communicator: Pete Ward MD Platelet, Fluoresc. 245 k/uL Normal 138-453 [facility] Comment on above: Performed By: #### C BC, BMP #### [address] [address] Aircraft Communicator: Pete Ward MD PLT, Immature Fract. 12.7 % High 1.1-10.3 [facility] Comment on above: Performed By: #### C BC, BMP #### [address] [address] Aircraft Communicator: Pete Wadr MD RBC (Bld) [#/Vol] 3.42 10*6/uL Low 4.21-5.77 [facility] Comment on above: Performed By: #### C BC, BMP #### [address] [address] Aircraft Communicator: Pete Ward MD RBC morphology finding Nom (Bld) ANISOCYTOSIS PRESENT Normal [facility] Comment on above: Result Comment: HYPO CHROMIA PRESENT Performed By: #### C BC, BMP #### [address] [address] Aircraft Communicator: Pete Ward MD WBC (Bld) [#/Vol] 11.8 10*3/uL High 3.5-11.3 [facility] Comment on above: Performed By: #### C BC, BMP #### [address] [address] Aircraft Communicator: Pete Ward MD Extra Yellow Tubeon 04-04-20 23 Extra Yellow Tube Normal [facility] Comment on above: Performed By: #### P T, RAFFAELE, MG, CBC, CPBILC #### [address] [address] Aircraft Communicator: Pete Ward MD K (Potassium)on 04-04-2023 Potassium [Moles/Vol] 4.1 mmol/L Normal 3.7-5.3 [facility] Comment on above: Performed By: #### C DP, CMPX #### [address] [address] Aircraft Communicator: Pete Ward MD Potassium [Moles/Vol] 4.3 mmol/L Normal 3.7-5.3 [facility] Comment on above: Performed By: #### P T, RAFFAELE, MG, CBC, CPBILC #### [address] [address] Aircraft Communicator: Pete Ward MD Magnesiumon 04-04-2023 Magnesium [Mass/Vol] 1.9 mg/dL Normal 1.6-2.6 [facility] Comment on above: Performed By: #### C DP, CMPX #### [address] [address] Aircraft Communicator: Pete Ward MD Magnesium [Mass/Vol] 1.9 mg/dL Normal 1.6-2.6 [facility] Comment on above: Performed By: #### P T, RAFFAELE, MG, CBC, CPBILC #### [address] [address] Aircraft Communicator: Pete Ward MD Ammoniaon 04-03-2023 Ammonia (P) [Moles/Vol] 35 umol/L Normal 16-60 M [facility] Comment on above: Performed By: #### P T, RAFFAELE, MG, CBC, CPBILC #### [address] [address] Aircraft Communicator: Pete Ward MD CBC with Diffon 04-03-2023 Abs. Basophil 0.00 k/uL Normal 0.00-0.20 [facility] Comment on above: Performed By: #### P T, RAFFAELE, MG, CBC, CPBILC #### [place] [address] Aircraft Communicator: Pete Ward MD Abs.Imm.Granulocyte 0.10 k/uL Normal 0.00-0.30 [facility] Comment on above: Performed By: #### P T, RAFFAELE, MG, CBC, CPBILC #### [place] [address] Aircraft Communicator: Pete Ward MD Abs.Neutrophil (Seg) 7.65 k/uL Normal 1.50-8.10 [facility] Comment on above: Performed By: #### P T, RAFFAELE, MG, CBC, CPBILC #### [facility] [address] [place] [address] Aircraft Communicator: Pete Ward MD Basophils/100 WBC (Bld) 0 % Normal 0-2 M [facility] Comment on above: Performed By: #### P T, RAFFAELE, MG, CBC, CPBILC #### [facility] [address] [place] [address] Aircraft Communicator: Pete Ward MD Eosinophils (Bld) [#/Vol] 0.39 10*3/uL Normal 0.00-0.4 4 [facility] Comment on above: Performed By: #### P T, RAFFAELE, MG, CBC, CPBILC #### [address] [address] Aircraft Communicator: Pete Ward MD Eosinophils/100 WBC (Bld) 4 % Normal 1-4 [facility] Comment on above: Performed By: #### P T, RAFFAELE, MG, CBC, CPBILC #### [address] [address] Aircraft Communicator: Pete Ward MD Immature granulocytes/100 WBC (Bld) 1 % High 0 [facility] Comment on above: Performed By: #### P T, RAFFAELE, MG, CBC, CPBILC #### [place] [address] Aircraft Communicator: Pete Ward MD Lymphocytes (Bld) [#/Vol] 0.78 10*3/uL Low 1.10-3.7 0 [facility] Comment on above: Performed By: #### P T, RAFFAELE, MG, CBC, CPBILC #### [address] [address] Aircraft Communicator: Pete Ward MD Lymphocytes/100 WBC (Bld) 8 % Low 24-43 [facility] Comment on above: Performed By: #### P T, RAFFAELE, MG, CBC, CPBILC #### [place] [address] Aircraft Communicator: Pete Ward MD Monocytes (Bld) [#/Vol] 0.88 10*3/uL Normal 0.10-1.20 [facility] Comment on above: Performed By: #### P T, RAFFAELE, MG, CBC, CPBILC #### [address] [address] Aircraft Communicator: Pete Ward MD Monocytes/100 WBC (Bld) 9 % Normal 3-12 M [facility] Comment on above: Performed By: #### P T, RAFFAELE, MG, CBC, CPBILC #### [address] [address] Aircraft Communicator: Pete Ward MD Morphology Luis (Bld) [Interp] HYPOCHROMIA PRESENT Normal [facility] Comment on above: Result Comment: ANIS OCYTOSIS PRESENT Performed By: #### P T, RAFFAELE, MG, CBC, CPBILC #### [place] [address] Aircraft Communicator: Pete Ward MD Neutrophil (Seg) 78 % High 36-65 [facility] Comment on above: Performed By: #### P T, RAFFAELE, MG, CBC, CPBILC #### [place] [address] Aircraft Communicator: Pete Ward MD Erythrocyte distribution width (RBC) [Ratio] 22.8 % High 11.8-14.4 [facility] Comment on above: Performed By: #### P T, RAFFAELE, MG, CBC, CPBILC #### [place] [address] Aircraft Communicator: Pete Ward MD Hematocrit (Bld) [Volume fraction] 29.6 % Low 40.7-50.3 [facility] Comment on above: Performed By: #### P T, RAFFAELE, MG, CBC, CPBILC #### [address] [address] Aircraft Communicator: Pete Ward MD Hemoglobin (Bld) [Mass/Vol] 8.0 g/dL Low 13.0-17.0 [facility] Comment on above: Performed By: #### P T, RAFFAELE, MG, CBC, CPBILC #### [address] [address] Aircraft Communicator: Pete Ward MD MCH (RBC) [Entitic mass] 22.5 pg Low 25.2-33.5 [facility] Comment on above: Performed By: #### P T, RAFFAELE, MG, CBC, CPBILC #### [address] [address] Aircraft Communicator: Pete Ward MD MCHC (RBC) [Mass/Vol] 27.0 g/dL Low 28.4-34.8 [facility] Comment on above: Performed By: #### P T, RAFFAELE, MG, CBC, CPBILC #### [address] [address] Aircraft Communicator: Pete Ward MD MCV (RBC) [Entitic vol] 83.4 fL Normal 82.6-102.9 M [facility] Comment on above: Performed By: #### P T, RAFFAELE, MG, CBC, CPBILC #### [address] [address] Aircraft Communicator: Pete Ward MD NRBC Automated 0.0 per 100 WBC Normal 0.0 [facility] Comment on above: Performed By: #### P T, RAFFAELE, MG, CBC, CPBILC #### [address] [address] Aircraft Communicator: Pete Ward MD Platelet Count See Reflexed IPF Result Normal 138-453 [facility] Comment on above: Performed By: #### P T, RAFFAELE, MG, CBC, CPBILC #### [address] [address] Aircraft Communicator: Pete Ward MD Platelet, Fluoresc. 256 k/uL Normal 138-453 [facility] Comment on above: Performed By: #### P T, RAFFAELE, MG, CBC, CPBILC #### [facility] [address] [place] [address] Aircraft Communicator: Pete Ward MD PLT, Immature Fract. 12.6 % High 1.1-10.3 [facility] Comment on above: Performed By: #### P T, RAFFAELE, MG, CBC, CPBILC #### [facility] [address] [place] [address] Aircraft Communicator: Pete Ward MD RBC (Bld) [#/Vol] 3.55 10*6/uL Low 4.21-5.77 [facility] Comment on above: Performed By: #### P T, RAFFAELE, MG, CBC, CPBILC #### [facility] [address] [place] [address] Aircraft Communicator: Pete Ward MD WBC (Bld) [#/Vol] 9.8 10*3/uL Normal 3.5-11.3 [facility] Comment on above: Performed By: #### P T, RAFFAELE, MG, CBC, CPBILC #### [facility] [address] [place] [address] Aircraft Communicator: Pete Ward MD Comp Metab w/Bili Pron 04-03 Albumin [Mass/Vol] 2.6 g/dL Low 3.5-5.2 [facility] Comment on above: Performed By: #### P T, RAFFAELE, MG, CBC, CPBILC #### [facility] [address] [place] [address] Aircraft Communicator: Pete Ward MD Albumin/Glob Ratio 0.7 Low 1.0-2.5 [facility] Comment on above: Performed By: #### P T, RAFFAELE, MG, CBC, CPBILC #### [facility] [address] [place] [address] Aircraft Communicator: Pete Ward MD Alkaline Phos 72 U/L Normal 40-129 [facility] Comment on above: Performed By: #### P T, RAFFAELE, MG, CBC, CPBILC #### [address] [address] Aircraft Communicator: Pete Ward MD ALT [Catalytic activity/Vol] 20 U/L Normal 5-41 [facility] Comment on above: Performed By: #### P T, RAFFAELE, MG, CBC, CPBILC #### [address] [address] Aircraft Communicator: Pete Ward MD Anion gap [Moles/Vol] 6 mmol/L Low 9-17 [facility] Comment on above: Performed By: #### P T, RAFFAELE, MG, CBC, CPBILC #### [address] [address] Aircraft Communicator: Pete Ward MD AST [Catalytic activity/Vol] 23 U/L Normal <40 [facility] Comment on above: Performed By: #### P T, RAFFAELE, MG, CBC, CPBILC #### [address] [address] Aircraft Communicator: Pete Ward MD Bilirubin [Mass/Vol] 0.4 mg/dL Normal 0.3-1.2 [facility] Comment on above: Performed By: #### P T, RAFFAELE, MG, CBC, CPBILC #### [address] [address] Aircraft Communicator: Pete Ward MD Bilirubin, Indirect 0.2 mg/dL Normal 0.0-1.0 [facility] Comment on above: Performed By: #### P T, RAFFAELE, MG, CBC, CPBILC #### [address] [address] Aircraft Communicator: Pete Ward MD Bilirubin.indirect [Mass/Vol] 0.2 mg/dL Normal <0.3 [facility] Comment on above: Performed By: #### P T, RAFFAELE, MG, CBC, CPBILC #### [address] [id number] Aircraft Communicator: Pete Ward MD Calcium [Mass/Vol] 9.5 mg/dL Normal 8.6-10.4 [facility] Comment on above: Performed By: #### P T, RAFFAELE, MG, CBC, CPBILC #### [place] [address] Aircraft Communicator: Pete Ward MD Chloride [Moles/Vol] 101 mmol/L Normal 98-107 [facility] Comment on above: Performed By: #### P T, RAFFAELE, MG, CBC, CPBILC #### [address] [address] Aircraft Communicator: Pete Ward MD CO2 [Moles/Vol] 35 mmol/L High 20-31 [facility] Comment on above: Performed By: #### P T, RAFFAELE, MG, CBC, CPBILC #### [address] [address] Aircraft Communicator: Pete Ward MD Creatinine [Mass/Vol] 0.5 mg/dL Low 0.7-1.2 [facility] Comment on above: Performed By: #### P T, RAFFAELE, MG, CBC, CPBILC #### [address] [address] Aircraft Communicator: Pete Ward MD GFR/1.73 sq M.predicted among non-blacks MDRD (S/P/Bld) [Vol rate/Area] mL/min/{1.73_m2} Normal >60 [facility] Comment on above: Result Comment: These results are not intended for use in patients <18 years of age. eGFR results are calculated without a race factor using the 2020 CKD-EPI equation. Careful clinical correlation is recommended, particularly when comparing to results calculated using previous equations. The CKD-EPI equation is less accurate in patients with extremes of muscle mass, extra-renal metabolism of creatine, excessive creatine ingestion, or following therapy that affects renal tubular secretion. Performed By: #### P T, RAFFAELE, MG, CBC, CPBILC #### [facility] [address] [place] [id number] Aircraft Communicator: Pete Ward MD Glucose [Mass/Vol] 105 mg/dL High 70-99 [facility] Comment on above: Performed By: #### P T, RAFFAELE, MG, CBC, CPBILC #### [address] [address] Aircraft Communicator: Pete Ward MD Potassium [Moles/Vol] 4.0 mmol/L Normal 3.7-5.3 [facility] Comment on above: Performed By: #### P T, RAFFAELE, MG, CBC, CPBILC #### [address] [address] Aircraft Communicator: Pete Ward MD Protein [Mass/Vol] 6.2 g/dL Low 6.4-8.3 [facility] Comment on above: Performed By: #### P T, RAFFAELE, MG, CBC, CPBILC #### [facility] [address] [place] [address] Aircraft Communicator: Pete Ward MD Sodium [Moles/Vol] 142 mmol/L Normal 135-144 [facility] Comment on above: Performed By: #### P T, RAFFAELE, MG, CBC, CPBILC #### [facility] [address] [place] [address] Aircraft Communicator: Pete Ward MD Urea nitrogen [Mass/Vol] 13 mg/dL Normal 8-23 [facility] Comment on above: Performed By: #### P RAFFAELE Fritz MG, CBC, CPBILC #### [facility] [place], [place] [id number] Aircraft Communicator: Pete Ward MD XR ABDOMEN (KUB) (SINGLE AP VIEW)on 04-03-2023 XR ABDOMEN (KUB) (SINGLE AP VIEW) EXAMINATION: ONE SUPINE XRAY VIEW(S) OF THE ABDOMEN 04/03/2023 6:45 pm COMPARISON: 03/28/2023 HISTORY: ORDERING SYSTEM PROVIDED HISTORY: Check tube placement TECHNOLOGIST PROVIDED HISTORY: Check tube placement Reason for Exam: check peg tube placement pt pulled it out supine port FINDINGS: The enteric tube is no longer seen. No small bowel dilation. G-tube appears to have been placed. The tip is in the region of the stomach. Contrast was not injected at this time. IMPRESSION: The G-tube appears to be in the stomach but contrast is not administered. Interpreted by: Shirley Andrade MD Signed by: Shirley Andrade MD 04/03/23 Final result Normal [facility] Brain Natri. Peptideon 04-01 Natriuretic peptide B (Bld) [Mass/Vol] 1152 pg/mL High <300 [facility] Comment on above: Result Comment: An age-independent cutoff point of 300 pg/ml has a 98% negative predictive value excluding acute heart failure. Performed By: #### C BC, BMP #### [facility] [address] [place] [address] [id number] Aircraft Communicator: Pete Ward MD CBC with Diffon 04-01-2023 Abs. Basophil 0.00 k/uL Normal 0.00-0.20 [facility] Comment on above: Performed By: #### P RAFFAELE Fritz MG, CBC, CPBILC #### [facility] [place], [place] [phone] Aircraft Communicator: Pete Ward MD Abs.Imm.Granulocyte 0.00 k/uL Normal 0.00-0.30 [facility] Comment on above: Performed By: #### P T, RAFFAELE, MG, CBC, CPBILC #### [address] [address] Aircraft Communicator: Pete Ward MD Abs.Neutrophil (Seg) 9.86 k/uL High 1.50-8.10 [facility] Comment on above: Performed By: #### P T, RAFFAELE, MG, CBC, CPBILC #### [address] [address] Aircraft Communicator: Pete Ward MD Basophils/100 WBC (Bld) 0 % Normal 0-2 [facility] Comment on above: Performed By: #### P T, RAFFAELE, MG, CBC, CPBILC #### [place] [address] Aircraft Communicator: Pete Ward MD Eosinophils (Bld) [#/Vol] 0.63 10*3/uL High 0.00-0.4 4 [facility] Comment on above: Performed By: #### P T, RAFFAELE, MG, CBC, CPBILC #### [place] [address] Aircraft Communicator: Pete Ward MD Eosinophils/100 WBC (Bld) 5 % High 1-4 [facility] Comment on above: Performed By: #### P T, RAFFAELE, MG, CBC, CPBILC #### [place] [address] Aircraft Communicator: Pete Ward MD Immature granulocytes/100 WBC (Bld) 0 % Normal 0 [facility] Comment on above: Performed By: #### P T, RAFFAELE, MG, CBC, CPBILC #### [address] [address] Aircraft Communicator: Pete Ward MD Lymphocytes (Bld) [#/Vol] 0.88 10*3/uL Low 1.10-3.7 0 [facility] Comment on above: Performed By: #### P T, RAFFAELE, MG, CBC, CPBILC #### [address] [address] Aircraft Communicator: Pete Ward MD Lymphocytes/100 WBC (Bld) 7 % Low 24-43 [facility] Comment on above: Performed By: #### P T, RAFFAELE, MG, CBC, CPBILC #### [address] [address] Aircraft Communicator: Pete Ward MD Monocytes (Bld) [#/Vol] 1.13 10*3/uL Normal 0.10-1.20 [facility] Comment on above: Performed By: #### P T, RAFFAELE, MG, CBC, CPBILC #### [address] [address] Aircraft Communicator: Pete Ward MD Monocytes/100 WBC (Bld) 9 % Normal 3-12 [facility] Comment on above: Performed By: #### P T, RAFFAELE, MG, CBC, CPBILC #### [address] [address] Aircraft Communicator: Pete Ward MD Morphology Luis (Bld) [Interp] ANISOCYTOSIS PRESENT Normal [facility] Comment on above: Result Comment: HYPO CHROMIA PRESENT 1+ ELLIPTOCYTES Performed By: #### P T, RAFFAELE, MG, CBC, CPBILC #### [address] [address] Aircraft Communicator: Pete Ward MD Neutrophil (Seg) 79 % High 36-65 [facility] Comment on above: Performed By: #### P T, RAFFAELE, MG, CBC, CPBILC #### [address] [address] Aircraft Communicator: Pete Ward MD Platelet, Fluoresc. Platelet clumps present, count appears adequate. Normal 138-453 [facility] Comment on above: Performed By: #### P T, RAFFAELE, MG, CBC, CPBILC #### [address] [id number] Aircraft Communicator: Pete Ward MD Erythrocyte distribution width (RBC) [Ratio] 22.7 % High 11.8-14.4 [facility] Comment on above: Performed By: #### P T, RAFFAELE, MG, CBC, CPBILC #### [place] [address] Aircraft Communicator: Pete Ward MD Hematocrit (Bld) [Volume fraction] 32.3 % Low 40.7-50.3 [facility] Comment on above: Performed By: #### P T, RAFFAELE, MG, CBC, CPBILC #### [place] [address] Aircraft Communicator: Pete Ward MD Hemoglobin (Bld) [Mass/Vol] 8.4 g/dL Low 13.0-17.0 [facility] Comment on above: Performed By: #### P T, RAFFAELE, MG, CBC, CPBILC #### [place] [address] Aircraft Communicator: Pete Ward MD MCH (RBC) [Entitic mass] 22.4 pg Low 25.2-33.5 [facility] Comment on above: Performed By: #### P T, RAFFAELE, MG, CBC, CPBILC #### [place] [address] Aircraft Communicator: Pete Ward MD MCHC (RBC) [Mass/Vol] 26.0 g/dL Low 28.4-34.8 [facility] Comment on above: Performed By: #### P T, RAFFAELE, MG, CBC, CPBILC #### [address] [address] Aircraft Communicator: Pete Ward MD MCV (RBC) [Entitic vol] 86.1 fL Normal 82.6-102.9 [facility] Comment on above: Performed By: #### P T, RAFFAELE, MG, CBC, CPBILC #### [address] [address] Aircraft Communicator: Pete Ward MD NRBC Automated 0.0 per 100 WBC Normal 0.0 [facility] Comment on above: Performed By: #### P T, RAFFAELE, MG, CBC, CPBILC #### [address] [address] Aircraft Communicator: Pete Ward MD Platelet Count See Reflexed IPF Result Normal 138-453 [facility] Comment on above: Performed By: #### P T, RAFFAELE, MG, CBC, CPBILC #### [address] [address] Aircraft Communicator: Pete Ward MD RBC (Bld) [#/Vol] 3.75 10*6/uL Low 4.21-5.77 [facility] Comment on above: Performed By: #### P T, RAFFAELE, MG, CBC, CPBILC #### [address] [address] Aircraft Communicator: Pete Ward MD WBC (Bld) [#/Vol] 12.5 10*3/uL High 3.5-11.3 [facility] Comment on above: Performed By: #### P T, RAFFAELE, MG, CBC, CPBILC #### [address] [address] Aircraft Communicator: Pete Ward MD Abs. Basophil 0.00 k/uL Normal 0.0-0.2 [facility] Comment on above: Performed By: #### C BC, BMP #### [address] [address] Aircraft Communicator: Pete Ward MD Abs.Imm.Granulocyte 0.00 k/uL Normal 0.00-0.30 [facility] Comment on above: Performed By: #### C BC, BMP #### [address] [address] Aircraft Communicator: Pete Ward MD Abs.Neutrophil (Seg) 8.50 k/uL High 1.8-7.7 [facility] Comment on above: Performed By: #### C BC, BMP #### [address] [address] Aircraft Communicator: Pete Ward MD Basophils/100 WBC (Bld) 0 % Normal 0-2 [facility] Comment on above: Performed By: #### C BC, BMP #### [address] [address] Aircraft Communicator: Pete Ward MD Eosinophils (Bld) [#/Vol] 0.55 10*3/uL High 0.0-0.4 [facility] Comment on above: Performed By: #### C BC, BMP #### [address] [address] Aircraft Communicator: Pete Ward MD Eosinophils/100 WBC (Bld) 5 % High 1-4 [facility] Comment on above: Performed By: #### C BC, BMP #### [address] [address] Aircraft Communicator: Pete Ward MD Immature granulocytes/100 WBC (Bld) 0 % Normal 0 [facility] Comment on above: Performed By: #### C BC, BMP #### [address] [address] Aircraft Communicator: Pete Ward MD Lymphocytes (Bld) [#/Vol] 0.76 10*3/uL Low 1.0-4.8 [facility] Comment on above: Performed By: #### C BC, BMP #### [address] [address] Aircraft Communicator: Pete Ward MD Lymphocytes/100 WBC (Bld) 7 % Low 24-44 [facility] Comment on above: Performed By: #### C BC, BMP #### [address] [address] Aircraft Communicator: Pete Ward MD Monocytes (Bld) [#/Vol] 1.09 10*3/uL High 0.1-0.8 [facility] Comment on above: Performed By: #### C BC, BMP #### [address] [address] Aircraft Communicator: Pete Ward MD Monocytes/100 WBC (Bld) 10 % High 1-7 [facility] Comment on above: Performed By: #### C BC, BMP #### [address] [address] Aircraft Communicator: Pete Ward MD Morphology Luis (Bld) [Interp] ANISOCYTOSIS PRESENT Normal [facility] Comment on above: Result Comment: HYPO CHROMIA PRESENT 1+ ELLIPTOCYTES Performed By: #### C BC, BMP #### [address] [address] Aircraft Communicator: Pete Ward MD Neutrophil (Seg) 78 % High 36-66 [facility] Comment on above: Performed By: #### C BC, BMP #### [address] [address] Aircraft Communicator: Pete Ward MD Comp Metab w/Bili Pron 04-01 Albumin [Mass/Vol] 2.8 g/dL Low 3.5-5.2 [facility] Comment on above: Performed By: #### P T, RAFFAELE, MG, CBC, CPBILC #### [address] [address] Aircraft Communicator: Pete Ward MD Albumin/Glob Ratio 0.9 Low 1.0-2.5 [facility] Comment on above: Performed By: #### P T, RAFFAELE, MG, CBC, CPBILC #### [address] [address] Aircraft Communicator: Pete Ward MD Alkaline Phos 71 U/L Normal 40-129 [facility] Comment on above: Performed By: #### P T, RAFFAELE, MG, CBC, CPBILC #### [address] [address] Aircraft Communicator: Pete Ward MD ALT [Catalytic activity/Vol] 24 U/L Normal 5-41 [facility] Comment on above: Performed By: #### P T, RAFFAELE, MG, CBC, CPBILC #### [address] [address] Aircraft Communicator: Pete Ward MD Anion gap [Moles/Vol] 2 mmol/L Low 9-17 [facility] Comment on above: Performed By: #### P T, RAFFAELE, MG, CBC, CPBILC #### [facility] [address] [place] [address] Aircraft Communicator: Pete Ward MD AST [Catalytic activity/Vol] 22 U/L Normal <40 [facility] Comment on above: Performed By: #### P T, RAFFAELE, MG, CBC, CPBILC #### [facility] [address] [place] [address] Aircraft Communicator: Pete Ward MD Bilirubin [Mass/Vol] 0.5 mg/dL Normal 0.3-1.2 [facility] Comment on above: Performed By: #### P T, RAFFAELE, MG, CBC, CPBILC #### [facility] [address] [place] [address] Aircraft Communicator: Pete Ward MD Bilirubin, Indirect 0.3 mg/dL Normal 0.0-1.0 [facility] Comment on above: Performed By: #### P T, RAFFAELE, MG, CBC, CPBILC #### [facility] [address] [place] [address] Aircraft Communicator: Pete Ward MD Bilirubin.indirect [Mass/Vol] 0.2 mg/dL Normal <0.3 [facility] Comment on above: Performed By: #### P T, RAFFAELE, MG, CBC, CPBILC #### [facility] [address] [place] [address] Aircraft Communicator: Pete Ward MD Calcium [Mass/Vol] 9.8 mg/dL Normal 8.6-10.4 [facility] Comment on above: Performed By: #### P T, RAFFAELE, MG, CBC, CPBILC #### [facility] [address] [place] [address] Aircraft Communicator: Pete Ward MD Chloride [Moles/Vol] 108 mmol/L High 98-107 [facility] Comment on above: Performed By: #### P T, RAFFAELE, MG, CBC, CPBILC #### [facility] [address] [place] [address] Aircraft Communicator: Pete Ward MD CO2 [Moles/Vol] 37 mmol/L High 20-31 [facility] Comment on above: Performed By: #### P T, RAFFAELE, MG, CBC, CPBILC #### [facility] [address] [place] [address] [phone] Aircraft Communicator: Pete Ward MD Creatinine [Mass/Vol] 0.5 mg/dL Low 0.7-1.2 [facility] Comment on above: Performed By: #### P T, RAFFAELE, MG, CBC, CPBILC #### [facility] [address] [place] [address] [phone] Aircraft Communicator: Pete Ward MD GFR/1.73 sq M.predicted among non-blacks MDRD (S/P/Bld) [Vol rate/Area] mL/min/{1.73_m2} Normal >60 [facility] Comment on above: Result Comment: These results are not intended for use in patients <18 years of age. eGFR results are calculated without a race factor using the 2020 CKD-EPI equation. Careful clinical correlation is recommended, particularly when comparing to results calculated using previous equations. The CKD-EPI equation is less accurate in patients with extremes of muscle mass, extra-renal metabolism of creatine, excessive creatine ingestion, or following therapy that affects renal tubular secretion. Performed By: #### P T, RAFFAELE, MG, CBC, CPBILC #### [facility] [address] [place] [address] Aircraft Communicator: Pete Ward MD Glucose [Mass/Vol] 115 mg/dL High 70-99 [facility] Comment on above: Performed By: #### P T, RAFFAELE, MG, CBC, CPBILC #### [facility] [address] [place] [address] [phone] Aircraft Communicator: Pete Ward MD Potassium [Moles/Vol] 3.7 mmol/L Normal 3.7-5.3 [facility] Comment on above: Performed By: #### P T, RAFFAELE, MG, CBC, CPBILC #### [facility] [address] [place] [address] [phone] Aircraft Communicator: Pete Ward MD Protein [Mass/Vol] 5.9 g/dL Low 6.4-8.3 [facility] Comment on above: Performed By: #### P T, RAFFAELE, MG, CBC, CPBILC #### [address] [address] Aircraft Communicator: Pete Ward MD Sodium [Moles/Vol] 147 mmol/L High 135-144 [facility] Comment on above: Performed By: #### P T, RAFFAELE, MG, CBC, CPBILC #### [address] [address] Aircraft Communicator: Pete Ward MD Urea nitrogen [Mass/Vol] 11 mg/dL Normal 01-25 [facility] Comment on above: Performed By: #### P T, RAFFAELE, MG, CBC, CPBILC #### [address] [address] Aircraft Communicator: Pete Ward MD Cult,Bloodon 04-01-2023 Cult,Blood Specimen Description .BLOOD Special Requests L AC 4ML Culture NO GROWTH 5 DAYS Report Status FINAL 04/01/2023 Normal [facility] Comment on above: Performed By: #### P T, RAFFAELE, MG, CBC, CPBILC #### [address] [address] Aircraft Communicator: Pete Ward MD Cult,Blood Specimen Description .BLOOD Special Requests L FOREARM 12ML Culture NO GROWTH 5 DAYS Report Status FINAL 04/01/2023 Normal [facility] Comment on above: Performed By: #### C BC, BMP #### [address] [address] Aircraft Communicator: Pete Ward MD CBC with Diffon 03-31-2023 Erythrocyte distribution width (RBC) [Ratio] 22.2 % High 11.8-14.4 [facility] Comment on above: Performed By: #### C BC, BMP #### [address] [address] Aircraft Communicator: Pete Ward MD Hematocrit (Bld) [Volume fraction] 30.0 % Low 40.7-50.3 [facility] Comment on above: Performed By: #### C BC, BMP #### [address] [address] Aircraft Communicator: Pete Ward MD Hemoglobin (Bld) [Mass/Vol] 8.0 g/dL Low 13.0-17.0 [facility] Comment on above: Performed By: #### C BC, BMP #### [address] [address] Aircraft Communicator: Pete Ward MD MCH (RBC) [Entitic mass] 22.2 pg Low 25.2-33.5 [facility] Comment on above: Performed By: #### C MARISEL, BMP #### [address] [address] Aircraft Communicator: Pete Ward MD MCHC (RBC) [Mass/Vol] 26.7 g/dL Low 28.4-34.8 [facility] Comment on above: Performed By: #### C BC, BMP #### [address] [address] Aircraft Communicator: Pete Ward MD MCV (RBC) [Entitic vol] 83.1 fL Normal 82.6-102.9 [facility] Comment on above: Performed By: #### C BC, BMP #### [address] [address] Aircraft Communicator: Pete Ward MD NRBC Automated 0.0 per 100 WBC Normal 0.0 [facility] Comment on above: Performed By: #### C BC, BMP #### [address] [address] Aircraft Communicator: Pete Ward MD Platelet Count See Reflexed IPF Result Normal 138-453 [facility] Comment on above: Performed By: #### C BC, BMP #### [address] [address] Aircraft Communicator: Pete Ward MD Platelet, Fluoresc. 241 k/uL Normal 138-453 [facility] Comment on above: Performed By: #### C BC, BMP #### [address] [address] Aircraft Communicator: Pete Ward MD PLT, Immature Fract. 12.5 % High 1.1-10.3 [facility] Comment on above: Performed By: #### C BC, BMP #### [address] [address] Aircraft Communicator: Pete Ward MD RBC (Bld) [#/Vol] 3.61 10*6/uL Low 4.21-5.77 [facility] Comment on above: Performed By: #### C BC, BMP #### [address] [address] Aircraft Communicator: Pete Ward MD WBC (Bld) [#/Vol] 10.9 10*3/uL Normal 3.5-11.3 [facility] Comment on above: Performed By: #### C BC, BMP #### [address] [address] Aircraft Communicator: Pete Ward MD Comp Metab w/Bili Pron 03-31 Albumin [Mass/Vol] 2.4 g/dL Low 3.5-5.2 [facility] Comment on above: Performed By: #### P T, RAFFAELE, MG, CBC, CPBILC #### [address] [address] Aircraft Communicator: Pete Ward MD Albumin/Glob Ratio 0.7 Low 1.0-2.5 [facility] Comment on above: Performed By: #### P T, RAFFAELE, MG, CBC, CPBILC #### [address] [address] Aircraft Communicator: Pete Ward MD Alkaline Phos 68 U/L Normal 40-129 [facility] Comment on above: Performed By: #### P T, RAFFAELE, MG, CBC, CPBILC #### [address] [address] Aircraft Communicator: Pete Ward MD ALT [Catalytic activity/Vol] 28 U/L Normal 5-41 [facility] Comment on above: Performed By: #### P T, RAFFAELE, MG, CBC, CPBILC #### [address] [address] Aircraft Communicator: Pete Ward MD Anion gap [Moles/Vol] 8 mmol/L Low 9-17 [facility] Comment on above: Performed By: #### P T, RAFFAELE, MG, CBC, CPBILC #### [address] [address] Aircraft Communicator: Pete Ward MD AST [Catalytic activity/Vol] 27 U/L Normal <40 [facility] Comment on above: Performed By: #### P T, RAFFAELE, MG, CBC, CPBILC #### [address] [address] Aircraft Communicator: Pete Ward MD Bilirubin [Mass/Vol] 0.6 mg/dL Normal 0.3-1.2 [facility] Comment on above: Performed By: #### P T, RAFFAELE, MG, CBC, CPBILC #### [facility] [address] [place] [address] Aircraft Communicator: Pete Ward MD Bilirubin, Indirect 0.3 mg/dL Normal 0.0-1.0 [facility] Comment on above: Performed By: #### P T, RAFFAELE, MG, CBC, CPBILC #### [address] [address] Aircraft Communicator: Pete Ward MD Bilirubin.indirect [Mass/Vol] 0.3 mg/dL High <0.3 [facility] Comment on above: Performed By: #### P T, RAFFAELE, MG, CBC, CPBILC #### [place] [address] Aircraft Communicator: Pete Ward MD Calcium [Mass/Vol] 9.3 mg/dL Normal 8.6-10.4 [facility] Comment on above: Performed By: #### P T, RAFFAELE, MG, CBC, CPBILC #### [address] [address] Aircraft Communicator: Pete Ward MD Chloride [Moles/Vol] 107 mmol/L Normal 98-107 [facility] Comment on above: Performed By: #### P T, RAFFAELE, MG, CBC, CPBILC #### [address] [address] Aircraft Communicator: Pete Ward MD CO2 [Moles/Vol] 31 mmol/L Normal 20-31 [facility] Comment on above: Performed By: #### P T, RAFFAELE, MG, CBC, CPBILC #### [address] [address] Aircraft Communicator: Pete Ward MD Creatinine [Mass/Vol] 0.5 mg/dL Low 0.7-1.2 [facility] Comment on above: Performed By: #### P T, RAFFAELE, MG, CBC, CPBILC #### [address] [address] Aircraft Communicator: Pete Ward MD GFR/1.73 sq M.predicted among non-blacks MDRD (S/P/Bld) [Vol rate/Area] mL/min/{1.73_m2} Normal >60 [facility] Comment on above: Result Comment: These results are not intended for use in patients <18 years of age. eGFR results are calculated without a race factor using the 2020 CKD-EPI equation. Careful clinical correlation is recommended, particularly when comparing to results calculated using previous equations. The CKD-EPI equation is less accurate in patients with extremes of muscle mass, extra-renal metabolism of creatine, excessive creatine ingestion, or following therapy that affects renal tubular secretion. Performed By: #### P T, RAFFAELE, MG, CBC, CPBILC #### [facility] [address] [place] [address] Aircraft Communicator: Pete Ward MD Glucose [Mass/Vol] 103 mg/dL High 70-99 [facility] Comment on above: Performed By: #### P T, RAFFAELE, MG, CBC, CPBILC #### [facility] [address] [place] [address] Aircraft Communicator: Pete Ward MD Potassium [Moles/Vol] 3.5 mmol/L Low 3.7-5.3 [facility] Comment on above: Performed By: #### P T, RAFFAELE, MG, CBC, CPBILC #### [facility] [address] [place] [address] Aircraft Communicator: Pete Ward MD Protein [Mass/Vol] 5.7 g/dL Low 6.4-8.3 [facility] Comment on above: Performed By: #### P T, RAFFAELE, MG, CBC, CPBILC #### [facility] [address] [place] [address] Aircraft Communicator: Pete Ward MD Sodium [Moles/Vol] 146 mmol/L High 135-144 [facility] Comment on above: Performed By: #### P T, RAFFAELE, MG, CBC, CPBILC #### [employer] [address] [place] [address] Aircraft Communicator: Pete Ward MD Urea nitrogen [Mass/Vol] 13 mg/dL Normal 8-23 [facility] Comment on above: Performed By: #### P T, RAFFAELE, MG, CBC, CPBILC #### [address] [address] Aircraft Communicator: Pete Ward MD Lactate Dehydrogenaseon 03-06 LDH [Catalytic activity/Vol] 164 U/L Normal 135-225 [facility] Comment on above: Performed By: #### C BC, BMP #### [facility] [address] [place] [id number] Aircraft Communicator: Pete Ward MD Lactic Acidon 03-31-2023 Lactic Acid,Whole Bl 0.9 mmol/L Normal 0.7-2.1 [facility] Comment on above: Performed By: #### C BC, BMP #### [facility] [address] [place] [id number] [employer] Communicator: Pete Ward MD PTon 03-31-2023 INR Coag (PPP) [Relative time] 1.4 {INR} Normal [facility] Comment on above: Result Comment: Therapeutic Range: Moderate Anticoagulant Intensity: INR = 2.0-3.0 High Anticoagulant Intensity: INR = 2.5-3.5 Performed By: #### C BC, BMP #### [facility] [address] [place] [id number] Aircraft Communicator: Pete Ward MD PT Coag (PPP) [Time] 17.1 s High 11.7-14.9 [facility] Comment on above: Performed By: #### C BC, BMP #### [facility] [address] [place] [address] [employer] Communicator: Pete Ward MD Retic Counton 03-31-2023 Absolute Retic 0.010 M/uL Low 0.030-0.080 [facility] Comment on above: Performed By: #### C BC, BMP #### [address] [id number] Aircraft Communicator: Pete Ward MD IRF 22.3 % High 2.7-18.3 [facility] Comment on above: Performed By: #### C BC, BMP #### [address] [address] Aircraft Communicator: Pete Ward MD Retic Count 0.3 % Low 0.5-1.9 [facility] Comment on above: Performed By: #### C BC, BMP #### [address] [address] Aircraft Communicator: Pete Ward MD Retic Hemoglobin 21.0 pg Low 28.2-35.7 [facility] Comment on above: Performed By: #### C BC, BMP #### [address] [address] Aircraft Communicator: Pete Ward MD Type + Screenon 03-31-2023 Type + Screen Sample Expiration 04/03/2023,2359 Arm Band Number [id number] ABO/Rh(D) A POSITIVE Antibody Screen NEGATIVE Normal [facility] Comment on above: Performed By: #### P T RAFFAELE, MG, CBC, CPBILC #### [address] [address] Aircraft Communicator: Pete Ward MD CBCon 03-30-2023 Erythrocyte distribution width (RBC) [Ratio] 22.3 % High 11.8-14.4 [facility] Comment on above: Performed By: #### C DP, CMPX #### [address] [address] Aircraft Communicator: Pete Ward MD Hematocrit (Bld) [Volume fraction] 34.7 % Low 40.7-50.3 [facility] Comment on above: Performed By: #### C DP, CMPX #### [place] [address] Aircraft Communicator: Pete Ward MD Hemoglobin (Bld) [Mass/Vol] 9.4 g/dL Low 13.0-17.0 [facility] Comment on above: Performed By: #### C DP, CMPX #### [place] [address] Aircraft Communicator: Pete Ward MD MCH (RBC) [Entitic mass] 22.7 pg Low 25.2-33.5 [facility] Comment on above: Performed By: #### C DP, CMPX #### [place] [address] Aircraft Communicator: Pete Ward MD MCHC (RBC) [Mass/Vol] 27.1 g/dL Low 28.4-34.8 [facility] Comment on above: Performed By: #### C DP, CMPX #### [place] [address] Aircraft Communicator: Pete Ward MD MCV (RBC) [Entitic vol] 83.8 fL Normal 82.6-102.9 [facility] Comment on above: Performed By: #### C DP, CMPX #### [place] [address] Aircraft Communicator: Pete Ward MD NRBC Automated 0.0 per 100 WBC Normal 0.0 [facility] Comment on above: Performed By: #### C DP, CMPX #### [place] [id number] Aircraft Communicator: Pete Ward MD Platelet mean volume (Bld) [Entitic vol] 11.6 fL Normal 8.1-13.5 [facility] Comment on above: Performed By: #### C DP, CMPX #### [address] [address] Aircraft Communicator: Pete Ward MD Platelets (Bld) [#/Vol] 299 10*3/uL Normal 138-453 [facility] Comment on above: Performed By: #### C DP, CMPX #### [facility] [address] [place] [address] Aircraft Communicator: Pete Ward MD RBC (Bld) [#/Vol] 4.14 10*6/uL Low 4.21-5.77 [facility] Comment on above: Performed By: #### C DP, CMPX #### [address] [address] Aircraft Communicator: Pete Ward MD WBC (Bld) [#/Vol] 11.5 10*3/uL High 3.5-11.3 [facility] Comment on above: Performed By: #### C DP, CMPX #### [address] [address] Aircraft Communicator: Pete Ward MD Comp Metab w/Bili Pron 03-30 Albumin [Mass/Vol] 3.0 g/dL Low 3.5-5.2 [facility] Comment on above: Performed By: #### C DP, CMPX #### [address] [address] Aircraft Communicator: Pete Ward MD Albumin/Glob Ratio 0.9 Low 1.0-2.5 [facility] Comment on above: Performed By: #### C DP, CMPX #### [facility] [address] [place] [address] Aircraft Communicator: Pete Ward MD Alkaline Phos 78 U/L Normal 40-129 [facility] Comment on above: Performed By: #### C DP, CMPX #### [facility] [address] [place] [address] Aircraft Communicator: Pete Ward MD ALT [Catalytic activity/Vol] 37 U/L Normal 5-41 [facility] Comment on above: Performed By: #### C DP, CMPX #### [facility] [address] [place] [address] Aircraft Communicator: Pete Ward MD Anion gap [Moles/Vol] 7 mmol/L Low 9-17 [facility] Comment on above: Performed By: #### C DP, CMPX #### [facility] [address] [place] [address] Aircraft Communicator: Pete Ward MD AST [Catalytic activity/Vol] 39 U/L Normal <40 [facility] Comment on above: Performed By: #### C DP, CMPX #### [facility] [address] [place] [address] Aircraft Communicator: Pete Ward MD Bilirubin [Mass/Vol] 0.6 mg/dL Normal 0.3-1.2 [facility] Comment on above: Performed By: #### C DP, CMPX #### [facility] [address] [place] [address] Aircraft Communicator: Pete Ward MD Bilirubin, Indirect 0.3 mg/dL Normal 0.0-1.0 [facility] Comment on above: Performed By: #### C DP, CMPX #### [facility] [address] [place] [address] Aircraft Communicator: Pete Ward MD Bilirubin.indirect [Mass/Vol] 0.3 mg/dL High <0.3 [facility] Comment on above: Performed By: #### C DP, CMPX #### [facility] [address] [place] [address] Aircraft Communicator: Pete Ward MD Calcium [Mass/Vol] 9.8 mg/dL Normal 8.6-10.4 [facility] Comment on above: Performed By: #### C DP, CMPX #### [address] [address] Aircraft Communicator: Pete Ward MD Chloride [Moles/Vol] 106 mmol/L Normal 98-107 [facility] Comment on above: Performed By: #### C DP, CMPX #### [address] [address] Aircraft Communicator: Pete Ward MD CO2 [Moles/Vol] 34 mmol/L High 20-31 [facility] Comment on above: Performed By: #### C DP, CMPX #### [address] [address] Aircraft Communicator: Pete Ward MD Creatinine [Mass/Vol] 0.6 mg/dL Low 0.7-1.2 [facility] Comment on above: Performed By: #### C DP, CMPX #### [address] [address] Aircraft Communicator: Pete Ward MD GFR/1.73 sq M.predicted among non-blacks MDRD (S/P/Bld) [Vol rate/Area] mL/min/{1.73_m2} Normal >60 [facility] Comment on above: Result Comment: These results are not intended for use in patients <18 years of age. eGFR results are calculated without a race factor using the 2020 CKD-EPI equation. Careful clinical correlation is recommended, particularly when comparing to results calculated using previous equations. The CKD-EPI equation is less accurate in patients with extremes of muscle mass, extra-renal metabolism of creatine, excessive creatine ingestion, or following therapy that affects renal tubular secretion. Performed By: #### C DP, CMPX #### [address] [address] Aircraft Communicator: Pete Ward MD Glucose [Mass/Vol] 120 mg/dL High 70-99 [facility] Comment on above: Performed By: #### C DP, CMPX #### [address] [address] Aircraft Communicator: Pete Ward MD Potassium [Moles/Vol] 3.3 mmol/L Low 3.7-5.3 [facility] Comment on above: Performed By: #### C DP, CMPX #### [address] [address] Aircraft Communicator: Pete Ward MD Protein [Mass/Vol] 6.5 g/dL Normal 6.4-8.3 [facility] Comment on above: Performed By: #### C DP, CMPX #### [address] [address] Aircraft Communicator: Pete Ward MD Sodium [Moles/Vol] 147 mmol/L High 135-144 [facility] Comment on above: Performed By: #### C DP, CMPX #### [facility] [address] [place] [address] Aircraft Communicator: Pete Ward MD Urea nitrogen [Mass/Vol] 24 mg/dL High 8-23 [facility] Comment on above: Performed By: #### C DP, CMPX #### [address] [address] Aircraft Communicator: Pete Ward MD Drug Scr, Abuse, Uron 2022 Amphetamine(s),Ur Negative Normal NEG [facility] Comment on above: Result Comment: (Positive cutoff 1000 ng/mL) Performed By: #### P T, RAFFAELE, MG, CBC, CPBILC #### [facility] [address] [place] [address] Aircraft Communicator: Pete Ward MD Barbiturate(s),Ur Negative Normal NEG [facility] Comment on above: Result Comment: (Positive cutoff 200 ng/mL) Performed By: #### P T, RAFFAELE, MG, CBC, CPBILC #### [facility] [address] [place] [address] Aircraft Communicator: Pete Ward MD Benzodiazepine(s) Positive Abnormal NEG [facility] Comment on above: Result Comment: (Positive cutoff 200 ng/mL) Performed By: #### P T, RAFFAELE, MG, CBC, CPBILC #### [facility] [address] [place] [address] Aircraft Communicator: Pete Ward MD Cannabinoid(s),Ur Negative Normal NEG [facility] Comment on above: Result Comment: (Positive cutoff 50 ng/mL) Performed By: #### P T, RAFFAELE, MG, CBC, CPBILC #### [facility] [address] [place] [address] Aircraft Communicator: Pete Ward MD Cocaine Metabolite Negative Normal NEG [facility] Comment on above: Result Comment: (Positive cutoff 300 ng/mL) Performed By: #### P T, RAFFAELE, MG, CBC, CPBILC #### [facility] [address] [place] [address] Aircraft Communicator: Pete Ward MD Fentanyl, Urine Negative Normal NEG [facility] Comment on above: Result Comment: (Positive cutoff 5 ng/ml) Performed By: #### P T, RAFFAELE, MG, CBC, CPBILC #### [facility] [address] [place] [address] Aircraft Communicator: Pete Ward MD Interpretive Info Assay provides medical screening only. The absence of expected drug(s) and/or Normal [facility] Comment on above: Result Comment: meta bolite(s) may indicate diluted or adulterated urine, limitations of testing or timing of collection. Testing for legal purposes should be confirmed by another method. To request confirmation of test result, please call the lab within 7 days of sample submission. Performed By: #### P T, RAFFAELE, MG, CBC, CPBILC #### [facility] [address] [place] [address] Aircraft Communicator: Pete Ward MD Methadone Ql (U) Negative Normal NEG [facility] Comment on above: Result Comment: (Positive cutoff 300 ng/mL) Performed By: #### P T, RAFFAELE, MG, CBC, CPBILC #### [facility] [address] [place] [address] Aircraft Communicator: Pete Ward MD Opiate(s), Ur Negative Normal NEG [facility] Comment on above: Result Comment: (Positive cutoff 300 ng/mL) Performed By: #### P T, RAFFAELE, MG, CBC, CPBILC #### [address] [address] Aircraft Communicator: Pete Ward MD Oxycodone, Urine Negative Normal NEG [facility] Comment on above: Result Comment: (Positive cutoff 100 ng/mL) Performed By: #### P T, RAFFAELE, MG, CBC, CPBILC #### [facility] [address] [place] [address] Aircraft Communicator: Pete Ward MD Phencyclidine, Ur Negative Normal NEG [facility] Comment on above: Result Comment: (Positive cutoff 25 ng/mL) Performed By: #### P T, RAFFAELE, MG, CBC, CPBILC #### [facility] [address] [place] [address] Aircraft Communicator: Pete Ward MD Lactic Acidon 03-30-2023 Lactic Acid,Whole Bl 1.2 mmol/L Normal 0.7-2.1 [facility] Comment on above: Performed By: #### C DP, CMPX #### [facility] [address] [place] [address] Aircraft Communicator: Pete Ward MD MRI LIMITED BRAINon 03-30-20 MRI LIMITED BRAIN EXAMINATION: MRI OF THE BRAIN WITHOUT CONTRAST 03/29/2023 6:35 pm TECHNIQUE: Multiplanar multisequence MRI of the brain was performed without the administration of intravenous contrast. COMPARISON: None. HISTORY: ORDERING SYSTEM PROVIDED HISTORY: syncopal event 03/21/23 rule out symptomatic left vert stenosis in the setting of critical anemia, worsening mentation and ETOH also concerns for Wernicke encephalopathy TECHNOLOGIST PROVIDED HISTORY: syncopal event 03/21/23 rule out symptomatic left vert stenosis in the setting of critical anemia, worsening mentation and ETOH also concerns for Wernicke encephalopathy What is the sedation requirement?->None Initial evaluation. FINDINGS: Limited and valuation of the brain was performed using the MRI limited brain technique for stroke. Motion artifact degrades multiple the images. The ventricles and cisternal spaces are prominent consistent with cerebral atrophy. There are a few areas of high signal in the left periventricular white matter that are likely related to a subacute area of infarct. No other obvious areas of restricted diffusion. There are confluent areas of high-signal in the periventricular white matter and centrum semiovale that are likely related to chronic small vessel ischemic disease. IMPRESSION: Limited evaluation of the brain due to severe motion artifact. There is mild cerebral atrophy and chronic small vessel ischemic changes. There are small areas of restricted diffusion in the left periventricular white matter that likely represent subacute areas of infarct. Interpreted by: Stephanie Phillips MD Signed by: Stephanie Phillips MD 03/30/23 Final result Normal [facility] UA w/Reflex Cultureon 2022 Bilirubin, SemiQt,Ur Negative Abnormal NEG [facility] Comment on above: Performed By: #### P T, RAFFAELE, MG, CBC, CPBILC #### [facility] [address] [place] [address] Aircraft Communicator: Pete Ward MD Blood, Urine Negative Normal NEG [facility] Comment on above: Performed By: #### P T, RAFFAELE, MG, CBC, CPBILC #### [facility] [address] [place] [address] Aircraft Communicator: Pete Ward MD Clarity (U) Cloudy Abnormal CLEAR [facility] Comment on above: Performed By: #### P T, RAFFAELE, MG, CBC, CPBILC #### [facility] [address] [place] [address] Aircraft Communicator: Pete Ward MD Color (U) Dark Yellow Abnormal YEL [facility] Comment on above: Performed By: #### P T, RAFFAELE, MG, CBC, CPBILC #### [facility] [address] [place] [address] Aircraft Communicator: Pete Ward MD Glucose Ql (U) Negative Normal NEG [facility] Comment on above: Performed By: #### P T, RAFFAELE, MG, CBC, CPBILC #### [address] [address] Aircraft Communicator: Pete Ward MD Ketones Ql (U) TRACE Abnormal NEG [facility] Comment on above: Performed By: #### P T, RAFFAELE, MG, CBC, CPBILC #### [address] [address] Aircraft Communicator: Pete Ward MD Leukocyte esterase Test strip Ql (U) TRACE Abnormal NEG [facility] Comment on above: Performed By: #### P T, RAFFAELE, MG, CBC, CPBILC #### [address] [address] Aircraft Communicator: Pete Ward MD Nitrite,Ur Negative Normal NEG [facility] Comment on above: Performed By: #### P T, RAFFAELE, MG, CBC, CPBILC #### [facility] [address] [place] [address] Aircraft Communicator: Pete Ward MD PH,Ur 5.5 Normal 5.0-8.0 [facility] Comment on above: Performed By: #### P T, RAFFAELE, MG, CBC, CPBILC #### [address] [address] Aircraft Communicator: Pete Ward MD Protein Ql (U) 1+ mg/dL Abnormal NEG [facility] Comment on above: Performed By: #### P T, RAFFAELE, MG, CBC, CPBILC #### [place] [address] Aircraft Communicator: Pete Ward MD Spec. [place],Ur 1.032 High 1.005-1.030 [facility] Comment on above: Performed By: #### P T, RAFFAELE, MG, CBC, CPBILC #### [place] [address] Aircraft Communicator: Pete Ward MD Urobilinogen,Ur Normal Normal 0.0-1.0 [facility] Comment on above: Performed By: #### P T, RAFFAELE, MG, CBC, CPBILC #### [place] [address] Aircraft Communicator: Pete Ward MD Urinalysis,Microon 3 Bacteria None Normal NONE [facility] Comment on above: Performed By: #### P T, RAFFAELE, MG, CBC, CPBILC #### [place] [address] Aircraft Communicator: Pete Ward MD Casts 5 TO 10 HYALINE Normal 0-8 [facility] Comment on above: Result Comment: Refe rence range defined for non-centrifuged specimen. Performed By: #### P T, RAFFAELE, MG, CBC, CPBILC #### [address] [address] Aircraft Communicator: Pete Ward MD Epithelial cells LM Ql (Urine sed) 0 TO 2 Normal 0-5 [facility] Comment on above: Performed By: #### P T, RAFFAELE, MG, CBC, CPBILC #### [facility] [address] [place] [address] Aircraft Communicator: Pete Ward MD Urine RBC's 20 TO 50 Normal 0-4 [facility] Comment on above: Result Comment: Refe rence range defined for non-centrifuged specimen. Performed By: #### P T, RAFFAELE, MG, CBC, CPBILC #### [facility] [address] [place] [address] Aircraft Communicator: Pete Ward MD Urine WBC's 2 TO 5 Normal 0-5 [facility] Comment on above: Performed By: #### P T, RAFFAELE, MG, CBC, CPBILC #### [address] [address] Aircraft Communicator: Pete Ward MD Ammoniaon 03-29-2023 Ammonia (P) [Moles/Vol] 34 umol/L Normal 16-60 M [facility] Comment on above: Performed By: #### P T, RAFFAELE, MG, CBC, CPBILC #### [facility] [address] [place] [address] Aircraft Communicator: Pete Ward MD CBCon 03-29-2023 Erythrocyte distribution width (RBC) [Ratio] 22.0 % High 11.8-14.4 [facility] Comment on above: Performed By: #### P T, RAFFAELE, MG, CBC, CPBILC #### [facility] [address] [place] [address] Aircraft Communicator: Pete Ward MD Hematocrit (Bld) [Volume fraction] 37.0 % Low 40.7-50.3 [facility] Comment on above: Performed By: #### P T, RAFFAELE, MG, CBC, CPBILC #### [facility] [address] [place] [address] Aircraft Communicator: Pete Ward MD Hemoglobin (Bld) [Mass/Vol] 9.8 g/dL Low 13.0-17.0 [facility] Comment on above: Performed By: #### P T, RAFFAELE, MG, CBC, CPBILC #### [address] [address] Aircraft Communicator: Pete Ward MD MCH (RBC) [Entitic mass] 22.2 pg Low 25.2-33.5 [facility] Comment on above: Performed By: #### P T, RAFFAELE, MG, CBC, CPBILC #### [place] [address] Aircraft Communicator: ePte Ward MD MCHC (RBC) [Mass/Vol] 26.5 g/dL Low 28.4-34.8 [facility] Comment on above: Performed By: #### P T, RAFFAELE, MG, CBC, CPBILC #### [place] [address] Aircraft Communicator: Pete Ward MD MCV (RBC) [Entitic vol] 83.7 fL Normal 82.6-102.9 [facility] Comment on above: Performed By: #### P T, RAFFAELE, MG, CBC, CPBILC #### [place] [address] Aircraft Communicator: Pete Ward MD NRBC Automated 0.0 per 100 WBC Normal 0.0 [facility] Comment on above: Performed By: #### P T, RAFFAELE, MG, CBC, CPBILC #### [place] [address] Aircraft Communicator: Pete Ward MD Platelet mean volume (Bld) [Entitic vol] 11.5 fL Normal 8.1-13.5 [facility] Comment on above: Performed By: #### P T, RAFFAELE, MG, CBC, CPBILC #### [address] [address] Aircraft Communicator: Pete Ward MD Platelets (Bld) [#/Vol] 382 10*3/uL Normal 138-453 [facility] Comment on above: Performed By: #### P T, RAFFAELE, MG, CBC, CPBILC #### [facility] [address] [place] [address] Aircraft Communicator: Pete Ward MD RBC (Bld) [#/Vol] 4.42 10*6/uL Normal 4.21-5.77 [facility] Comment on above: Performed By: #### P T, RAFFAELE, MG, CBC, CPBILC #### [address] [address] Aircraft Communicator: Pete Ward MD WBC (Bld) [#/Vol] 9.5 10*3/uL Normal 3.5-11.3 [facility] Comment on above: Performed By: #### P T, RAFFAELE, MG, CBC, CPBILC #### [address] [address] Aircraft Communicator: Pete Ward MD Comp Metab w/Bili Pron 03-29 Albumin [Mass/Vol] 3.2 g/dL Low 3.5-5.2 [facility] Comment on above: Performed By: #### P T, RAFFAELE, MG, CBC, CPBILC #### [address] [address] Aircraft Communicator: Pete Ward MD Albumin/Glob Ratio 0.9 Low 1.0-2.5 [facility] Comment on above: Performed By: #### P T, RAFFAELE, MG, CBC, CPBILC #### [facility] [address] [place] [address] Aircraft Communicator: Pete Ward MD Alkaline Phos 77 U/L Normal 40-129 [facility] Comment on above: Performed By: #### P T, RAFFAELE, MG, CBC, CPBILC #### [address] [address] Aircraft Communicator: Pete Ward MD ALT [Catalytic activity/Vol] 45 U/L High 5-41 [facility] Comment on above: Performed By: #### P T, RAFFAELE, MG, CBC, CPBILC #### [address] [address] Aircraft Communicator: Pete Ward MD Anion gap [Moles/Vol] 7 mmol/L Low 9-17 [facility] Comment on above: Performed By: #### P T, RAFFAELE, MG, CBC, CPBILC #### [address] [address] Aircraft Communicator: Pete Ward MD AST [Catalytic activity/Vol] 51 U/L High <40 [facility] Comment on above: Performed By: #### P T, RAFFAELE, MG, CBC, CPBILC #### [facility] [address] [place] [address] Aircraft Communicator: Pete Ward MD Bilirubin [Mass/Vol] 0.8 mg/dL Normal 0.3-1.2 [facility] Comment on above: Performed By: #### P T, RAFFAELE, MG, CBC, CPBILC #### [address] [address] Aircraft Communicator: Pete Ward MD Bilirubin, Indirect 0.3 mg/dL Normal 0.0-1.0 [facility] Comment on above: Performed By: #### P T, RAFFAELE, MG, CBC, CPBILC #### [facility] [address] [place] [address] Aircraft Communicator: Pete Ward MD Bilirubin.indirect [Mass/Vol] 0.5 mg/dL High <0.3 [facility] Comment on above: Performed By: #### P T, RAFFAELE, MG, CBC, CPBILC #### [address] [address] Aircraft Communicator: Pete Ward MD Calcium [Mass/Vol] 9.9 mg/dL Normal 8.6-10.4 [facility] Comment on above: Performed By: #### P T, RAFFAELE, MG, CBC, CPBILC #### [place] [address] Aircraft Communicator: Pete Ward MD Chloride [Moles/Vol] 106 mmol/L Normal 98-107 [facility] Comment on above: Performed By: #### P T, RAFFAELE, MG, CBC, CPBILC #### [address] [address] Aircraft Communicator: Pete Ward MD CO2 [Moles/Vol] 37 mmol/L High 20-31 [facility] Comment on above: Performed By: #### P T, RAFFAELE, MG, CBC, CPBILC #### [address] [address] Aircraft Communicator: Pete Ward MD Creatinine [Mass/Vol] 0.6 mg/dL Low 0.7-1.2 [facility] Comment on above: Performed By: #### P T, RAFFAELE, MG, CBC, CPBILC #### [place] [address] Aircraft Communicator: Pete Ward MD GFR/1.73 sq M.predicted among non-blacks MDRD (S/P/Bld) [Vol rate/Area] mL/min/{1.73_m2} Normal >60 [facility] Comment on above: Result Comment: These results are not intended for use in patients <18 years of age. eGFR results are calculated without a race factor using the 2020 CKD-EPI equation. Careful clinical correlation is recommended, particularly when comparing to results calculated using previous equations. The CKD-EPI equation is less accurate in patients with extremes of muscle mass, extra-renal metabolism of creatine, excessive creatine ingestion, or following therapy that affects renal tubular secretion. Performed By: #### P T, RAFFAELE, MG, CBC, CPBILC #### [facility] [address] [place] [address] Aircraft Communicator: Pete Ward MD Glucose [Mass/Vol] 80 mg/dL Normal 70-99 [facility] Comment on above: Performed By: #### P T, RAFFAELE, MG, CBC, CPBILC #### [address] [address] Aircraft Communicator: Pete Ward MD Potassium [Moles/Vol] 3.8 mmol/L Normal 3.7-5.3 [facility] Comment on above: Performed By: #### P T, RAFFAELE, MG, CBC, CPBILC #### [address] [address] Aircraft Communicator: Pete Ward MD Protein [Mass/Vol] 6.7 g/dL Normal 6.4-8.3 [facility] Comment on above: Performed By: #### P T, RAFFAELE, MG, CBC, CPBILC #### [facility] [address] [place] [address] Aircraft Communicator: Pete Ward MD Sodium [Moles/Vol] 150 mmol/L High 135-144 [facility] Comment on above: Performed By: #### P T, RAFFAELE, MG, CBC, CPBILC #### [facility] [address] [place] [address] Aircraft Communicator: Pete Ward MD Urea nitrogen [Mass/Vol] 28 mg/dL High 8-23 [facility] Comment on above: Performed By: #### P T, RAFFAELE, MG, CBC, CPBILC #### [address] [address] Aircraft Communicator: Pete Ward MD Magnesiumon 03-29-2023 Magnesium [Mass/Vol] 2.3 mg/dL Normal 1.6-2.6 [facility] Comment on above: Performed By: #### P T, RAFFAELE, MG, CBC, CPBILC #### [address] [address] Aircraft Communicator: Pete Ward MD PTon 03-29-2023 INR Coag (PPP) [Relative time] 1.5 {INR} Normal [facility] Comment on above: Result Comment: Therapeutic Range: Moderate Anticoagulant Intensity: INR = 2.0-3.0 High Anticoagulant Intensity: INR = 2.5-3.5 Performed By: #### P T, RAFFAELE, MG, CBC, CPBILC #### [address] [address] Aircraft Communicator: Pete Ward MD PT Coag (PPP) [Time] 18.1 s High 11.7-14.9 [facility] Comment on above: Performed By: #### P T, RAFFAELE, MG, CBC, CPBILC #### [address] [address] Aircraft Communicator: Pete Ward MD Basic Metabolic Profon 03-28 Anion gap [Moles/Vol] 7 mmol/L Low 9-17 [facility] Comment on above: Performed By: #### P T, RAFFAELE, MG, CBC, CPBILC #### [address] [address] Aircraft Communicator: Pete Ward MD Calcium [Mass/Vol] 9.8 mg/dL Normal 8.6-10.4 [facility] Comment on above: Performed By: #### P T, RAFFAELE, MG, CBC, CPBILC #### [facility] [address] [place] [address] Aircraft Communicator: Pete Ward MD Chloride [Moles/Vol] 105 mmol/L Normal 98-107 [facility] Comment on above: Performed By: #### P T, RAFFAELE, MG, CBC, CPBILC #### [facility] [address] [place] [address] Aircraft Communicator: Pete Ward MD CO2 [Moles/Vol] 34 mmol/L High 20-31 [facility] Comment on above: Performed By: #### P T, RAFFAELE, MG, CBC, CPBILC #### [facility] [address] [place] [address] Aircraft Communicator: Pete Ward MD Creatinine [Mass/Vol] 0.6 mg/dL Low 0.7-1.2 [facility] Comment on above: Performed By: #### P T, RAFFAELE, MG, CBC, CPBILC #### [address] [address] Aircraft Communicator: Pete Ward MD GFR/1.73 sq M.predicted among non-blacks MDRD (S/P/Bld) [Vol rate/Area] mL/min/{1.73_m2} Normal >60 [facility] Comment on above: Result Comment: These results are not intended for use in patients <18 years of age. eGFR results are calculated without a race factor using the 2020 CKD-EPI equation. Careful clinical correlation is recommended, particularly when comparing to results calculated using previous equations. The CKD-EPI equation is less accurate in patients with extremes of muscle mass, extra-renal metabolism of creatine, excessive creatine ingestion, or following therapy that affects renal tubular secretion. Performed By: #### P T, RAFFAELE, MG, CBC, CPBILC #### [facility] [address] [place] [address] Aircraft Communicator: Pete Ward MD Glucose [Mass/Vol] 91 mg/dL Normal 70-99 [facility] Comment on above: Performed By: #### P T, RAFFAELE, MG, CBC, CPBILC #### [facility] [address] [place] [address] [id number] Aircraft Communicator: Pete Ward MD Potassium [Moles/Vol] 3.5 mmol/L Low 3.7-5.3 [facility] Comment on above: Performed By: #### P T, RAFFAELE, MG, CBC, CPBILC #### [address] [address] Aircraft Communicator: Pete Ward MD Sodium [Moles/Vol] 146 mmol/L High 135-144 [facility] Comment on above: Performed By: #### P T, RAFFAELE, MG, CBC, CPBILC #### [facility] [address] [place] [address] Aircraft Communicator: Pete Ward MD Urea nitrogen [Mass/Vol] 27 mg/dL High 8-23 [facility] Comment on above: Performed By: #### P T, RAFFAELE, MG, CBC, CPBILC #### [facility] [address] [place] [address] Aircraft Communicator: Pete Ward MD CBCon 03-28-2023 Erythrocyte distribution width (RBC) [Ratio] 21.9 % High 11.8-14.4 [facility] Comment on above: Performed By: #### P T, RAFFAELE, MG, CBC, CPBILC #### [facility] [address] [place] [address] Aircraft Communicator: Pete Ward MD Hematocrit (Bld) [Volume fraction] 36.5 % Low 40.7-50.3 [facility] Comment on above: Performed By: #### P T, RAFFAELE, MG, CBC, CPBILC #### [address] [address] Aircraft Communicator: Pete Ward MD Hemoglobin (Bld) [Mass/Vol] 9.8 g/dL Low 13.0-17.0 [facility] Comment on above: Performed By: #### P T, RAFFAELE, MG, CBC, CPBILC #### [address] [address] Aircraft Communicator: Pete Ward MD MCH (RBC) [Entitic mass] 22.5 pg Low 25.2-33.5 [facility] Comment on above: Performed By: #### P T, RAFFAELE, MG, CBC, CPBILC #### [address] [address] Aircraft Communicator: Pete Ward MD MCHC (RBC) [Mass/Vol] 26.8 g/dL Low 28.4-34.8 [facility] Comment on above: Performed By: #### P T, RAFFAELE, MG, CBC, CPBILC #### [place] [address] Aircraft Communicator: Pete Ward MD MCV (RBC) [Entitic vol] 83.9 fL Normal 82.6-102.9 [facility] Comment on above: Performed By: #### P T, RAFFAELE, MG, CBC, CPBILC #### [address] [address] Aircraft Communicator: Pete Ward MD NRBC Automated 0.0 per 100 WBC Normal 0.0 [facility] Comment on above: Performed By: #### P T, RAFFAELE, MG, CBC, CPBILC #### [address] [id number] Aircraft Communicator: Pete Ward MD Platelet mean volume (Bld) [Entitic vol] 11.3 fL Normal 8.1-13.5 [facility] Comment on above: Performed By: #### P T, RAFFAELE, MG, CBC, CPBILC #### [address] [address] Aircraft Communicator: Pete Ward MD Platelets (Bld) [#/Vol] 340 10*3/uL Normal 138-453 [facility] Comment on above: Performed By: #### P T, RAFFAELE, MG, CBC, CPBILC #### [facility] [address] [place] [address] Aircraft Communicator: Pete Ward MD RBC (Bld) [#/Vol] 4.35 10*6/uL Normal 4.21-5.77 [facility] Comment on above: Performed By: #### P T, RAFFAELE, MG, CBC, CPBILC #### [address] [address] Aircraft Communicator: Pete Ward MD WBC (Bld) [#/Vol] 8.5 10*3/uL Normal 3.5-11.3 [facility] Comment on above: Performed By: #### P T, RAFFAELE, MG, CBC, CPBILC #### [address] [address] Aircraft Communicator: Pete Ward MD FL MODIFIED BARIUM SWALLOW W VIDEOon 03-28-2023 FL MODIFIED BARIUM SWALLOW W VIDEO EXAMINATION: MODIFIED BARIUM SWALLOW WAS PERFORMED IN CONJUNCTION WITH SPEECH PATHOLOGY SERVICES TECHNIQUE: Under fluoroscopic evaluation cineradiography/video radiography recordings were performed in conjunction with the speech-language pathologist ([employer] PLASTERER). Various liquid, solid and/or semi-solid barium preparations were used to assess swallowing function. FLUOROSCOPY DOSE AND TYPE: Fluoro time: 0.9 minutes Dose: 13.535 mGy COMPARISON: None HISTORY: ORDERING SYSTEM PROVIDED HISTORY: dysphagia TECHNOLOGIST PROVIDED HISTORY: dysphagia 72-year-old male with history of dysphagia FINDINGS: Penetration with probable aspiration and reflexive cough after the administration of the pureed/pudding thick substance. Thick liquid, thin liquid, soft solid and cookie solid substances were not administered in the interest of patient's safety. IMPRESSION: 1. Penetration with probable aspiration reflexive cough after the administration of the pureed/pudding thick substance. 2. Exam was discontinued in the remainder of the substances were not administered in the interest of patient's safety. Please see separate speech pathology report for full discussion of findings and recommendations. Interpreted by: Lopez Senior MD Signed by: Lopez Senior MD 03/28/23 Final result Normal [facility] Lipid Profileon 03-28-2023 Cholesterol [Mass/Vol] 135 mg/dL Normal <200 [facility] Comment on above: Result Comment: Cholesterol Guidelines: <200 Desirable 200-240 Borderline >240 Undesirable Performed By: #### P T, RAFFAELE, MG, CBC, CPBILC #### [place] [id number] Aircraft Communicator: Pete Ward MD Cholesterol in HDL [Mass/Vol] 46 mg/dL Normal >40 [facility] Comment on above: Result Comment: HDL Guidelines: <40 Undesirable 40-59 Borderline >59 Desirable Performed By: #### P T, RAFFAELE, MG, CBC, CPBILC #### [place] [id number] Aircraft Communicator: Pete Ward MD Cholesterol in LDL [Mass/Vol] 69 mg/dL Normal 0-130 [facility] Comment on above: Result Comment: LDL Guidelines: <100 Desirable 100-129 Near to/above Desirable 130-159 Borderline >159 Undesirable Direct (measured) LDL and calculated LDL are not interchangeable tests. Performed By: #### P T, RAFFAELE, MG, CBC, CPBILC #### [facility] [address] [place] [address] Aircraft Communicator: Pete Ward MD Cholesterol.total/Cholest connor in HDL [Mass ratio] 2.9 {ratio} Normal <5 [facility] Comment on above: Performed By: #### P T, RAFFAELE, MG, CBC, CPBILC #### [facility] [address] [place], [place] [phone] Aircraft Communicator: Pete Ward MD Triglyceride [Mass/Vol] 101 mg/dL Normal <150 [facility] Comment on above: Result Comment: Triglyceride Guidelines: <150 Desirable 150-199 Borderline 200-499 High >499 Very high Based on AHA Guidelines for fasting triglyceride, March 2012. Performed By: #### P T, RAFFAELE, MG, CBC, CPBILC #### [place] [id number] [place] [address] Aircraft Communicator: Pete Ward MD XR ABDOMEN FOR NG/OG/NE TUBE PLACEMENTon 03-28-2023 XR ABDOMEN FOR NG/OG/NE TUBE PLACEMENT EXAMINATION: ONE SUPINE XRAY VIEW(S) OF THE ABDOMEN 03/28/2023 3:30 pm COMPARISON: None. HISTORY: ORDERING SYSTEM PROVIDED HISTORY: Check NG tube placement TECHNOLOGIST PROVIDED HISTORY: Check NG tube placement Portable?->Yes FINDINGS: Enteric catheter tip in the gastric body with proximal port well beyond the GE junction. Visualized bowel gas pattern is nonspecific. Prominent aortoiliac vascular calcification. Contrast in the urinary bladder from earlier CTA. IMPRESSION: Enteric catheter in appropriate position. Nonspecific bowel gas pattern. Interpreted by: Torres Macdonald MD Signed by: Torres Macdonald MD 03/28/23 Final result Normal [facility] Ammoniaon 03-27-2023 Ammonia (P) [Moles/Vol] 31 umol/L Normal 16-60 [facility] Comment on above: Performed By: #### P T, RAFFAELE, MG, CBC, CPBILC #### [facility] [place], [place] [phone] Aircraft Communicator: Pete Ward MD Arterial Blood Gaseson 03-27 John Test PASS Normal [facility] Comment on above: Performed By: #### H H #### [facility] [address] [place] [address] Aircraft Communicator: Torres Rick MD Body Temp. 37 Normal [facility] Comment on above: Performed By: #### H H #### [facility] [address] [place], [place] [phone] Aircraft Communicator: Torres Rick MD HCO3 (Bld) [Moles/Vol] 35.7 mmol/L High 22-26 [facility] Comment on above: Performed By: #### H H #### [facility] [address] [place] [phone] Aircraft Communicator: Torres Rick MD O2 Device/Flow/% Cannula Normal [facility] Comment on above: Performed By: #### H H #### [facility] [address] [place], [place] [phone] Aircraft Communicator: Torres Rick MD Oxygen (Bld) [Partial pressure] 62.7 mm[Hg] Low 80-100 [facility] Comment on above: Performed By: #### H H #### [facility] [address] [place], [place] [id number] Aircraft Communicator: Torres Rick MD Oxygen saturation in Blood 91.1 % Low 95-98 [facility] Comment on above: Performed By: #### H H #### [facility] [address] [place] [phone] Aircraft Communicator: Torres Rick MD pCO2 56.5 mmHg High 35-45 [facility] Comment on above: Performed By: #### H H #### [facility] [address] [place] [phone] Aircraft Communicator: Torres Rick MD pH (Bld) 7.408 [pH] Normal 7.35-7.45 [facility] Comment on above: Performed By: #### H H #### [facility] [address] [place], [place] [phone] Aircraft Communicator: Torres Rick MD Positive Base Excess 9.1 mmol/L High 0.0-2.0 [facility] Comment on above: Performed By: #### H H #### [facility] [address] [place] [address] Aircraft Communicator: Torres Rick MD Pt. Position SEMI-FOWLERS Normal [facility] Comment on above: Performed By: #### H H #### [facility] [address] [place], [facility] Aircraft Communicator: Torres Rick MD Site Drawn Right Brachial Artery Normal [facility] Comment on above: Performed By: #### H H #### [facility] [address] [place] [address] Aircraft Communicator: Torres Rick MD CBC with Diffon 03-27-2023 Abs. Basophil 0.00 k/uL Normal 0.0-0.2 [facility] Comment on above: Performed By: #### P T, RAFFAELE, MG, CBC, CPBILC #### [address] [address] Aircraft Communicator: Pete Ward MD Abs.Imm.Granulocyte 0.00 k/uL Normal 0.00-0.30 [facility] Comment on above: Performed By: #### P T, RAFFAELE, MG, CBC, CPBILC #### [address] [address] Aircraft Communicator: Pete Ward MD Abs.Neutrophil (Seg) 7.65 k/uL Normal 1.8-7.7 [facility] Comment on above: Performed By: #### P T, RAFFAELE, MG, CBC, CPBILC #### [address] [address] Aircraft Communicator: Pete Ward MD Basophils/100 WBC (Bld) 0 % Normal 0-2 [facility] Comment on above: Performed By: #### P T, RAFFAELE, MG, CBC, CPBILC #### [address] [address] Aircraft Communicator: Pete Ward MD Eosinophils (Bld) [#/Vol] 0.00 10*3/uL Normal 0.0-0.4 [facility] Comment on above: Performed By: #### P T, RAFFAELE, MG, CBC, CPBILC #### [place] [address] Aircraft Communicator: Pete Ward MD Eosinophils/100 WBC (Bld) 0 % Low 1-4 [facility] Comment on above: Performed By: #### P T, RAFFAELE, MG, CBC, CPBILC #### [place] [address] Aircraft Communicator: Pete Ward MD Immature granulocytes/100 WBC (Bld) 0 % Normal 0 [facility] Comment on above: Performed By: #### P T, RAFFAELE, MG, CBC, CPBILC #### [place] [address] Aircraft Communicator: Pete Ward MD Lymphocytes (Bld) [#/Vol] 0.50 10*3/uL Low 1.0-4.8 [facility] Comment on above: Performed By: #### P T, RAFFAELE, MG, CBC, CPBILC #### [place] [address] Aircraft Communicator: Pete Ward MD Lymphocytes/100 WBC (Bld) 6 % Low 24-44 [facility] Comment on above: Performed By: #### P T, RAFFAELE, MG, CBC, CPBILC #### [address] [address] Aircraft Communicator: Pete Ward MD Monocytes (Bld) [#/Vol] 0.25 10*3/uL Normal 0.1-0.8 [facility] Comment on above: Performed By: #### P T, RAFFAELE, MG, CBC, CPBILC #### [address] [address] Aircraft Communicator: Pete Ward MD Monocytes/100 WBC (Bld) 3 % Normal 1-7 [facility] Comment on above: Performed By: #### P T, RAFFAELE, MG, CBC, CPBILC #### [address] [address] Aircraft Communicator: Pete Ward MD Morphology Luis (Bld) [Interp] ANISOCYTOSIS PRESENT Normal [facility] Comment on above: Result Comment: HYPO CHROMIA PRESENT 1+ ELLIPTOCYTES Performed By: #### P T, RAFFAELE, MG, CBC, CPBILC #### [address] [address] Aircraft Communicator: Pete Ward MD Neutrophil (Seg) 91 % High 36-66 [facility] Comment on above: Performed By: #### P T, RAFFAELE, MG, CBC, CPBILC #### [address] [address] Aircraft Communicator: Pete Ward MD Erythrocyte distribution width (RBC) [Ratio] 22.4 % High 11.8-14.4 [facility] Comment on above: Performed By: #### P T, RAFFAELE, MG, CBC, CPBILC #### [address] [address] Aircraft Communicator: Pete Ward MD Hematocrit (Bld) [Volume fraction] 38.1 % Low 40.7-50.3 [facility] Comment on above: Performed By: #### P T, RAFFAELE, MG, CBC, CPBILC #### [address] [address] Aircraft Communicator: Pete Ward MD Hemoglobin (Bld) [Mass/Vol] 10.3 g/dL Low 13.0-17.0 [facility] Comment on above: Performed By: #### P T, RAFFAELE, MG, CBC, CPBILC #### [address] [id number] Aircraft Communicator: Pete Ward MD MCH (RBC) [Entitic mass] 22.3 pg Low 25.2-33.5 [facility] Comment on above: Performed By: #### P T, RAFFAELE, MG, CBC, CPBILC #### [place] [address] Aircraft Communicator: Pete Ward MD MCHC (RBC) [Mass/Vol] 27.0 g/dL Low 28.4-34.8 [facility] Comment on above: Performed By: #### P T, RAFFAELE, MG, CBC, CPBILC #### [place] [address] Aircraft Communicator: Pete Ward MD MCV (RBC) [Entitic vol] 82.6 fL Normal 82.6-102.9 M [facility] Comment on above: Performed By: #### P T, RAFFAELE, MG, CBC, CPBILC #### [place] [address] Aircraft Communicator: Pete Ward MD NRBC Automated 0.0 per 100 WBC Normal 0.0 [facility] Comment on above: Performed By: #### P T, RAFFAELE, MG, CBC, CPBILC #### [place] [address] Aircraft Communicator: Pete Ward MD Platelet mean volume (Bld) [Entitic vol] 11.5 fL Normal 8.1-13.5 [facility] Comment on above: Performed By: #### P T, RAFFAELE, MG, CBC, CPBILC #### [facility] [address] [place] [address] Aircraft Communicator: Pete Ward MD Platelets (Bld) [#/Vol] 432 10*3/uL Normal 138-453 [facility] Comment on above: Performed By: #### P T, RAFFAELE, MG, CBC, CPBILC #### [facility] [place] [address] Aircraft Communicator: Pete Ward MD RBC (Bld) [#/Vol] 4.61 10*6/uL Normal 4.21-5.77 [facility] Comment on above: Performed By: #### P T, RAFFAELE, MG, CBC, CPBILC #### [facility] [address] [place] [address] Aircraft Communicator: Pete Ward MD WBC (Bld) [#/Vol] 8.4 10*3/uL Normal 3.5-11.3 [facility] Comment on above: Performed By: #### P T, RAFFAELE, MG, CBC, CPBILC #### [facility] [address] [place] [address] Aircraft Communicator: Pete Ward MD CTA HEAD NECK W WO CONTRASTo n 03-27-2023 CTA HEAD NECK W WO CONTRAST EXAMINATION: CTA OF THE HEAD AND NECK WITH CONTRAST 03/27/2023 2:35 pm: TECHNIQUE: CTA of the head and neck was performed with the administration of intravenous contrast. Multiplanar reformatted images are provided for review. MIP images are provided for review. Stenosis of the internal carotid arteries measured using NASCET criteria. Automated exposure control, iterative reconstruction, and/or weight based adjustment of the mA/kV was utilized to reduce the radiation dose to as low as reasonably achievable. Noncontrast CT of the head with reconstructed 2-D images are also provided for review. COMPARISON: None. HISTORY: ORDERING SYSTEM PROVIDED HISTORY: AMS TECHNOLOGIST PROVIDED HISTORY: AMS FINDINGS: CT HEAD: BRAIN/VENTRICLES: There is minimal parenchymal volume loss. There is periventricular white matter low attenuation, likely related to minimal chronic microvascular disease. There is no acute intracranial hemorrhage, mass effect or midline shift. No abnormal extra-axial fluid collection. The mendosa-white differentiation is maintained without evidence of an acute infarct. There is no evidence of hydrocephalus. ORBITS: The visualized portion of the orbits demonstrate no acute abnormality. SINUSES: The visualized paranasal sinuses and mastoid air cells demonstrate no acute abnormality. SOFT TISSUES/SKULL: No acute abnormality of the visualized skull or soft tissues. CTA NECK: AORTIC ARCH/ARCH VESSELS: There is retroesophageal course of the right subclavian artery, normal variant. No dissection or arterial injury. No significant stenosis of the brachiocephalic or subclavian arteries. CAROTID ARTERIES: There is 30% stenosis in the proximal left internal carotid artery. No dissection, arterial injury, or hemodynamically significant stenosis by NASCET criteria. VERTEBRAL ARTERIES: There is severe stenosis at the origin of the left vertebral artery with heavy calcified plaque. No dissection, arterial injury, or significant stenosis in the remainder of the bilateral vertebral arteries. SOFT TISSUES: There is 1 cm airspace opacity in the right upper lobe. There is mild emphysema. There is dependent atelectasis in the posterior left lungs. No cervical or superior mediastinal lymphadenopathy. The larynx and pharynx are unremarkable. No acute abnormality of the salivary and thyroid glands. BONES: No acute osseous abnormality. There are moderate degenerative changes in the cervical spine. CTA HEAD: ANTERIOR CIRCULATION: No significant stenosis of the intracranial internal carotid, anterior cerebral, or middle cerebral arteries. No aneurysm. POSTERIOR CIRCULATION: No significant stenosis of the vertebral, basilar, or posterior cerebral arteries. No aneurysm. OTHER: No dural venous sinus thrombosis on this non-dedicated study. IMPRESSION: 1. No acute intracranial abnormality. 2. 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 3. 30% stenosis in the proximal left internal carotid artery. 4. No acute abnormality or flow-limiting stenosis of the major arteries of the head. 5. 1 cm airspace opacity in the right upper lobe, may be related to infection/inflammatio n versus neoplasm. Follow-up is recommended. Interpreted by: Phil Villegas MD Signed by: Phil Villegas MD 03/27/23 Final result Normal [facility] Calcium, Ionicon 03-27-2023 Calcium [Moles/Vol] 1.25 mmol/L Normal 1.13-1.33 [facility] Comment on above: Performed By: #### P T, RAFFAELE, MG, CBC, CPBILC #### [address] [address] Aircraft Communicator: Pete Ward MD Comp Metabolic Pr/rfx MGon 1 - Albumin [Mass/Vol] 3.4 g/dL Low 3.5-5.2 [facility] Comment on above: Performed By: #### P T, RAFFAELE, MG, CBC, CPBILC #### [address] [address] Aircraft Communicator: Pete Ward MD Albumin/Glob Ratio 0.9 Low 1.0-2.5 [facility] Comment on above: Performed By: #### P T, RAFFAELE, MG, CBC, CPBILC #### [address] [address] Aircraft Communicator: Pete Ward MD Alkaline Phos 79 U/L Normal 40-129 [facility] Comment on above: Performed By: #### P T, RAFFAELE, MG, CBC, CPBILC #### [address] [address] Aircraft Communicator: Pete Ward MD ALT [Catalytic activity/Vol] 28 U/L Normal 5-41 [facility] Comment on above: Performed By: #### P T, RAFFAELE, MG, CBC, CPBILC #### [address] [address] Aircraft Communicator: Pete Ward MD Anion gap [Moles/Vol] 11 mmol/L Normal 9-17 [facility] Comment on above: Performed By: #### P T, RAFFEALE, MG, CBC, CPBILC #### [address] [address] Aircraft Communicator: Pete Ward MD AST [Catalytic activity/Vol] 44 U/L High <40 [facility] Comment on above: Performed By: #### P T, RAFFAELE, MG, CBC, CPBILC #### [address] [address] Aircraft Communicator: Pete Ward MD Bilirubin [Mass/Vol] 0.6 mg/dL Normal 0.3-1.2 [facility] Comment on above: Performed By: #### P T, RAFFAELE, MG, CBC, CPBILC #### [address] [address] Aircraft Communicator: Pete Ward MD Calcium [Mass/Vol] 10.5 mg/dL High 8.6-10.4 [facility] Comment on above: Performed By: #### P T, RAFFAELE, MG, CBC, CPBILC #### [place] [address] Aircraft Communicator: Pete Ward MD Chloride [Moles/Vol] 101 mmol/L Normal 98-107 [facility] Comment on above: Performed By: #### P T, RAFFAELE, MG, CBC, CPBILC #### [address] [address] Aircraft Communicator: Pete Ward MD CO2 [Moles/Vol] 33 mmol/L High 20-31 [facility] Comment on above: Performed By: #### P T, RAFFAELE, MG, CBC, CPBILC #### [address] [address] Aircraft Communicator: Pete Ward MD Creatinine [Mass/Vol] 0.6 mg/dL Low 0.7-1.2 [facility] Comment on above: Performed By: #### P T, RAFFAELE, MG, CBC, CPBILC #### [place] [address] Aircraft Communicator: Pete Ward MD GFR/1.73 sq M.predicted among non-blacks MDRD (S/P/Bld) [Vol rate/Area] mL/min/{1.73_m2} Normal >60 [facility] Comment on above: Result Comment: These results are not intended for use in patients <18 years of age. eGFR results are calculated without a race factor using the 2020 CKD-EPI equation. Careful clinical correlation is recommended, particularly when comparing to results calculated using previous equations. The CKD-EPI equation is less accurate in patients with extremes of muscle mass, extra-renal metabolism of creatine, excessive creatine ingestion, or following therapy that affects renal tubular secretion. Performed By: #### P T, RAFFAELE, MG, CBC, CPBILC #### [facility] [address] [place] [address] Aircraft Communicator: Pete Ward MD Glucose [Mass/Vol] 111 mg/dL High 70-99 [facility] Comment on above: Performed By: #### P T, RAFFAELE, MG, CBC, CPBILC #### [facility] [address] [place] [address] Aircraft Communicator: Pete Ward MD Potassium [Moles/Vol] 3.8 mmol/L Normal 3.7-5.3 [facility] Comment on above: Performed By: #### P T, RAFFAELE, MG, CBC, CPBILC #### [facility] [address] [place] [address] Aircraft Communicator: Pete Ward MD Protein [Mass/Vol] 7.3 g/dL Normal 6.4-8.3 [facility] Comment on above: Performed By: #### P T, RAFFAELE, MG, CBC, CPBILC #### [facility] [address] [place] [address] [id number] Aircraft Communicator: Pete Ward MD Sodium [Moles/Vol] 145 mmol/L High 135-144 [facility] Comment on above: Performed By: #### P T, RAFFAELE, MG, CBC, CPBILC #### [address] [address] Aircraft Communicator: Pete Ward MD Urea nitrogen [Mass/Vol] 26 mg/dL High 8-23 [facility] Comment on above: Performed By: #### P T, RAFFAELE, MG, CBC, CPBILC #### [address] [address] Aircraft Communicator: Pete Ward MD Albumin [Mass/Vol] 3.5 g/dL Normal 3.5-5.2 [facility] Comment on above: Performed By: #### F EBC #### [address] [address] Aircraft Communicator: Pete Ward MD #### CDP #### [address] [place] [phone] ( Aircraft Communicator: Torres Rick MD Albumin/Glob Ratio 0.9 Low 1.0-2.5 [facility] Comment on above: Performed By: #### F EBC #### [address] [address] Aircraft Communicator: Pete Ward MD #### CDP #### [facility] [address] [place] [address] [place] [phone] Aircraft Communicator: Torres Rick MD Alkaline Phos 78 U/L Normal 40-129 [facility] Comment on above: Performed By: #### F EBC #### [address] [address] Aircraft Communicator: Pete Ward MD #### CDP #### [facility] [address] [place] [address] Aircraft Communicator: Torres Rick MD ALT [Catalytic activity/Vol] 20 U/L Normal 5-41 [facility] Comment on above: Performed By: #### F EBC #### [address] [address] Aircraft Communicator: Pete Ward MD #### CDP #### [facility] [address] [place], [place] [phone] Aircraft Communicator: Torres Rick MD Anion gap [Moles/Vol] 8 mmol/L Low 9-17 [facility] Comment on above: Performed By: #### F EBC #### [address] [address] Aircraft Communicator: Pete Ward MD #### CDP #### [facility] [address] [place], [place] [phone] Aircraft Communicator: Torres Rick MD AST [Catalytic activity/Vol] 33 U/L Normal <40 [facility] Comment on above: Performed By: #### F EBC #### [address] [address] Aircraft Communicator: Pete Ward MD #### CDP #### [facility] [address] [place] [address] [place], [place] [phone] Aircraft Communicator: Torres Rick MD Bilirubin [Mass/Vol] 0.5 mg/dL Normal 0.3-1.2 [facility] Comment on above: Performed By: #### F EBC #### [address] [address] Aircraft Communicator: Pete Ward MD #### CDP #### [facility] [address] [place], [place] [phone] Aircraft Communicator: Torres Rick MD BUN/CRE Ratio 40 High 9-20 [facility] Comment on above: Performed By: #### F EBC #### [address] [address] Aircraft Communicator: Pete Ward MD #### CDP #### [facility] [address] [place], [place] [phone] Aircraft Communicator: Torres Rick MD Calcium [Mass/Vol] 10.6 mg/dL High 8.6-10.4 [facility] Comment on above: Performed By: #### F EBC #### [address] [address] Aircraft Communicator: Pete Ward MD #### CDP #### [facility] [address] [place], [place] [phone] Aircraft Communicator: Torres Rick MD Chloride [Moles/Vol] 105 mmol/L Normal 98-107 [facility] Comment on above: Performed By: #### F EBC #### [address] [address] Aircraft Communicator: Pete Ward MD #### CDP #### [address] [place], [place] [phone] Aircraft Communicator: Torres Rick MD CO2 [Moles/Vol] 35 mmol/L High 20-31 [facility] Comment on above: Performed By: #### F EBC #### [address] [address] Aircraft Communicator: Pete Ward MD #### CDP #### [facility] [address] [place] [address] [place], [place] [phone] Aircraft Communicator: Torres Rick MD Creatinine [Mass/Vol] 0.5 mg/dL Low 0.7-1.2 [facility] Comment on above: Performed By: #### F EBC #### [address] [address] Aircraft Communicator: Pete Ward MD #### CDP #### [facility] [address] [place] [address] [place] [address] Aircraft Communicator: Torres Rick MD GFR/1.73 sq M.predicted among non-blacks MDRD (S/P/Bld) [Vol rate/Area] mL/min/{1.73_m2} Normal >60 [facility] Comment on above: Result Comment: These results are not intended for use in patients <18 years of age. eGFR results are calculated without a race factor using the 2020 CKD-EPI equation. Careful clinical correlation is recommended, particularly when comparing to results calculated using previous equations. The CKD-EPI equation is less accurate in patients with extremes of muscle mass, extra-renal metabolism of creatine, excessive creatine ingestion, or following therapy that affects renal tubular secretion. Performed By: #### F EBC #### [address] [phone] Aircraft Communicator: Pete Ward MD #### CDP #### [address] [place] [address] Aircraft Communicator: Torres Rick MD Glucose [Mass/Vol] 88 mg/dL Normal 70-99 [facility] Comment on above: Performed By: #### F EBC #### [address] [address] Aircraft Communicator: Pete Ward MD #### CDP #### [address] [place] [address] Aircraft Communicator: Torres Rick MD Potassium [Moles/Vol] 3.6 mmol/L Low 3.7-5.3 [facility] Comment on above: Performed By: #### F EBC #### [address] [address] Aircraft Communicator: Pete Ward MD #### CDP #### [facility] [address] [place] [address] [place] [address] Aircraft Communicator: Torres Rick MD Protein [Mass/Vol] 7.2 g/dL Normal 6.4-8.3 [facility] Comment on above: Performed By: #### F EBC #### [place] [address] [place] [address] Aircraft Communicator: Pete Ward MD #### CDP #### [facility] [address] [place], [place] [phone] Aircraft Communicator: Torres Rick MD Sodium [Moles/Vol] 148 mmol/L High 135-144 [facility] Comment on above: Performed By: #### F EBC #### [address] [address] Aircraft Communicator: Ptee Ward MD #### CDP #### [facility] [address] [place] [address] [place], [place] [phone] Aircraft Communicator: Torres Rick MD Urea nitrogen [Mass/Vol] 20 mg/dL Normal 8-23 [facility] Comment on above: Performed By: #### F EBC #### [address] [address] Aircraft Communicator: Pete Ward MD #### CDP #### [facility] [address] [place] [address] [place], [place] [phone] Aircraft Communicator: Torres Rick MD Hemoglobin A1Con 03-27-2023 Glucose [Mass/Vol] 94 mg/dL Normal [facility] Comment on above: Result Comment: The ADA and AACC recommend providing the estimated average glucose result to permit better patient understanding of their HBA1c result. Performed By: #### P T, RAFFAELE, MG, CBC, CPBILC #### [address] [address] Aircraft Communicator: Pete Ward MD HbA1c (Bld) [Mass fraction] 4.9 % Normal 4.0-6.0 [facility] Comment on above: Performed By: #### P T, RAFFAELE, MG, CBC, CPBILC #### [facility] [address] [place] [address] Aircraft Communicator: Pete Ward MD Magnesiumon 03-27-2023 Magnesium [Mass/Vol] 2.1 mg/dL Normal 1.6-2.6 [facility] Comment on above: Performed By: #### P T, RAFFAELE, MG, CBC, CPBILC #### [address] [address] Aircraft Communicator: Pete Ward MD PTon 03-27-2023 INR Coag (PPP) [Relative time] 1.4 {INR} Normal [facility] Comment on above: Result Comment: Therapeutic Range: Moderate Anticoagulant Intensity: INR = 2.0-3.0 High Anticoagulant Intensity: INR = 2.5-3.5 Performed By: #### P T, RAFFAELE, MG, CBC, CPBILC #### [address] [address] Aircraft Communicator: Pete Ward MD PT Coag (PPP) [Time] 17.1 s High 11.7-14.9 [facility] Comment on above: Performed By: #### P T, RAFFAELE, MG, CBC, CPBILC #### [facility] [address] [place] [address] Aircraft Communicator: Pete Ward MD Phosphorus, Inorg.on 023 Phosphorus, Inorg. 4.2 mg/dL Normal 2.5-4.5 [facility] Comment on above: Performed By: #### P T, RAFFAELE, MG, CBC, CPBILC #### [facility] [address] [place] [address] Aircraft Communicator: Pete Ward MD Procalcitoninon 03-27-2023 Procalcitonin 0.03 ng/mL Normal <0.09 [facility] Comment on above: Result Comment: Suspected Sepsis: <0.50 ng/mL Low likelihood of sepsis. 0.50-2.00 ng/mL Increased likelihood of sepsis. Antibiotics encouraged. >2.00 ng/mL High risk of sepsis/shock. Antibiotics strongly encouraged. Suspected Lower Resp Tract Infections: <0.24 ng/mL Low likelihood of bacterial infection. >0.24 ng/mL Increased likelihood of bacterial infection. Antibiotics encouraged. With successful antibiotic therapy, PCT levels should decrease rapidly. (Half-life of 24 to 36 hours.) Procalcitonin values from samples collected within the first 6 hours of systemic infection may still be low. Retesting may be indicated. Values from day 1 and day 4 can be entered into the Change in Procalcitonin Calculator ([email or web address]) to determine the patient's Mortality Risk Prognosis In healthy neonates, plasma Procalcitonin (PCT) concentrations increase gradually after , reaching peak values at about 24 hours of age then decrease to normal values below 0.5 ng/mL by 48-72 hours of age. Performed By: #### P T, RAFFAELE, MG, CBC, CPBILC #### [facility] [place], [place] [phone] Aircraft Communicator: Pete Ward MD TSH w/reflex to FT4on 2022 Thyroid Stim. Horm. 0.78 uIU/mL Normal 0.30-5.00 [facility] Comment on above: Performed By: #### P T, RAFFAELE, MG, CBC, CPBILC #### [facility] [place], [place] [phone] Aircraft Communicator: Pete Ward MD Arterial Blood Gaseson 03-26 John Test PASS [facility] Comment on above: Performed By: #### H H #### [facility] [address] [place] [address] Aircraft Communicator: Torres Rick MD Body Temp. 37 [facility] Comment on above: Performed By: #### H H #### [facility] [address] [place] [address] Aircraft Communicator: Torres Rick MD HCO3 (Bld) [Moles/Vol] 35.9 mmol/L High 22-26 [facility] Comment on above: Performed By: #### H H #### [facility] [address] [place] [phone] Aircraft Communicator: Torres Rick MD O2 Device/Flow/% Cannula Normal [facility] Comment on above: Result Comment: 2 Performed By: #### H H #### [facility] [address] [place] [phone] Aircraft Communicator: Torres Rick MD Oxygen (Bld) [Partial pressure] 54.0 mm[Hg] Low 80-100 [facility] Comment on above: Performed By: #### H H #### [facility] [address] [place] [phone] Aircraft Communicator: Torres Rick MD Oxygen saturation in Blood 87.4 % Low 95-98 [facility] Comment on above: Performed By: #### H H #### [facility] [address] [place] [id number] Aircraft Communicator: Torres Rick MD pCO2 54.8 mmHg High 35-45 [facility] Comment on above: Performed By: #### H H #### [facility] [address] [place] [phone] Aircraft Communicator: Torres Rick MD pH (Bld) 7.425 [pH] Normal 7.35-7.45 [facility] Comment on above: Performed By: #### H H #### [facility] [address] [place] [phone] Aircraft Communicator: Torres Rick MD Positive Base Excess 9.9 mmol/L High 0.0-2.0 [facility] Comment on above: Performed By: #### H H #### [facility] [address] [place] [phone] Aircraft Communicator: Torres Rick MD Respiratory rate 22 /min Normal [facility] Comment on above: Performed By: #### H H #### [address] [place], [place] [phone] Aircraft Communicator: Torres Rick MD Site Drawn Right Brachial Artery Normal [facility] Comment on above: Performed By: #### H H #### [address] [place], [place] [phone] Aircraft Communicator: Torres Rick MD CBCon 03-26-2023 Erythrocyte distribution width (RBC) [Ratio] 22.0 % High 11.8-14.4 [facility] Comment on above: Performed By: #### F EBC #### [address] [address] Aircraft Communicator: Pete Ward MD #### CDP #### [address] [place], [place] [phone] Aircraft Communicator: Torres Rick MD Hematocrit (Bld) [Volume fraction] 34.4 % Low 40.7-50.3 [facility] Comment on above: Performed By: #### F EBC #### [address] [address] Aircraft Communicator: Pete Ward MD #### CDP #### [address] [place], [place] [phone] Aircraft Communicator: Torres Rick MD Hemoglobin (Bld) [Mass/Vol] 9.3 g/dL Low 13.0-17.0 [facility] Comment on above: Performed By: #### F EBC #### [address] [address] Aircraft Communicator: Pete Ward MD #### CDP #### [address] [place], [place] [phone] Aircraft Communicator: Torres Rick MD MCH (RBC) [Entitic mass] 22.4 pg Low 25.2-33.5 [facility] Comment on above: Performed By: #### F EBC #### [address] [address] Aircraft Communicator: Pete Ward MD #### CDP #### [address] [place] [address] Aircraft Communicator: Torres Rick MD MCHC (RBC) [Mass/Vol] 27.0 g/dL Low 28.4-34.8 [facility] Comment on above: Performed By: #### F EBC #### [address] [phone] Aircraft Communicator: Pete Ward MD #### CDP #### [address] [place] [address] Aircraft Communicator: Torres Rick MD MCV (RBC) [Entitic vol] 82.9 fL Normal 82.6-102.9 M [facility] Comment on above: Performed By: #### F EBC #### [address] [phone] Aircraft Communicator: Pete Ward MD #### CDP #### [address] [place] [address] Aircraft Communicator: Torres Rick MD NRBC Automated 0.2 per 100 WBC High 0.0 [facility] Comment on above: Performed By: #### F EBC #### [address] [address] Aircraft Communicator: Pete Ward MD #### CDP #### [address] [place], [place] [phone] Aircraft Communicator: Torres Rick MD Platelet mean volume (Bld) [Entitic vol] 11.8 fL Normal 8.1-13.5 [facility] Comment on above: Performed By: #### F EBC #### [place] [address] [place] [address] Aircraft Communicator: Pete Ward MD #### CDP #### [facility] [address] [place], [place] [phone] Aircraft Communicator: Torres Rick MD Platelets (Bld) [#/Vol] 406 10*3/uL Normal 138-453 [facility] Comment on above: Performed By: #### F EBC #### [address] [address] Aircraft Communicator: Pete Ward MD #### CDP #### [facility] [address] [place] [address] [place] [phone] Aircraft Communicator: Torres Rick MD RBC (Bld) [#/Vol] 4.15 10*6/uL Low 4.21-5.77 [facility] Comment on above: Performed By: #### F EBC #### [place] [address] [place] [address] Aircraft Communicator: Pete Ward MD #### CDP #### [facility] [address] [place] [address] [place] [phone] Aircraft Communicator: Torres Rick MD WBC (Bld) [#/Vol] 12.3 10*3/uL High 3.5-11.3 [facility] Comment on above: Performed By: #### F EBC #### [place] [address] [place] [address] Aircraft Communicator: Pete Ward MD #### CDP #### [facility] [address] [place], [place] [phone] Aircraft Communicator: Torres Rick MD Comp Metabolic Pr/rfx MGon 1 - Albumin [Mass/Vol] 3.6 g/dL Normal 3.5-5.2 [facility] Comment on above: Performed By: #### F EBC #### [address] [address] Aircraft Communicator: Pete Ward MD #### CDP #### [facility] [address] [place], [place] [phone] Aircraft Communicator: Torres Rick MD Albumin/Glob Ratio 1.0 Normal 1.0-2.5 [facility] Comment on above: Performed By: #### F EBC #### [address] [address] Aircraft Communicator: Pete Ward MD #### CDP #### [facility] [address] [place] [address] [place], [place] [phone] Aircraft Communicator: Torres Rick MD Alkaline Phos 77 U/L Normal 40-129 [facility] Comment on above: Performed By: #### F EBC #### [address] [address] Aircraft Communicator: Pete Ward MD #### CDP #### [address] [place], [place] [phone] Aircraft Communicator: Torres Rick MD ALT [Catalytic activity/Vol] 18 U/L Normal 5-41 [facility] Comment on above: Performed By: #### F EBC #### [address] [address] Aircraft Communicator: Pete Ward MD #### CDP #### [facility] [address] [place] [address] [place], [place] [phone] Aircraft Communicator: Torres Rick MD Anion gap [Moles/Vol] 4 mmol/L Low 9-17 [facility] Comment on above: Performed By: #### F EBC #### [address] [place] [address] Aircraft Communicator: Pete Ward MD #### CDP #### [facility] [address] [place], [place] [phone] Aircraft Communicator: Torres Rick MD AST [Catalytic activity/Vol] 50 U/L High <40 [facility] Comment on above: Performed By: #### F EBC #### [address] [address] Aircraft Communicator: Pete Ward MD #### CDP #### [facility] [address] [place] [phone] Aircraft Communicator: Torres Rick MD Bilirubin [Mass/Vol] 0.4 mg/dL Normal 0.3-1.2 [facility] Comment on above: Performed By: #### F EBC #### [address] [address] Aircraft Communicator: Pete Ward MD #### CDP #### [address] [place], [facility]83 Aircraft Communicator: Torres Rick MD BUN/CRE Ratio 38 High 9-20 [facility] Comment on above: Performed By: #### F EBC #### [address] [address] Aircraft Communicator: Pete Ward MD #### CDP #### [facility] [address] [place], [place] [phone] Aircraft Communicator: Torres Rick MD Calcium [Mass/Vol] 10.6 mg/dL High 8.6-10.4 [facility] Comment on above: Performed By: #### F EBC #### [address] [address] Aircraft Communicator: Pete Ward MD #### CDP #### [facility] [address] [place] [address] [place], [place] [phone] Aircraft Communicator: Torres Rick MD Chloride [Moles/Vol] 106 mmol/L Normal 98-107 [facility] Comment on above: Performed By: #### F EBC #### [facility] [address] [place] [address] Aircraft Communicator: Pete Ward MD #### CDP #### [facility] [address] [place], [place] [id number] Aircraft Communicator: Torres Rick MD CO2 [Moles/Vol] 39 mmol/L High 20-31 [facility] Comment on above: Performed By: #### F EBC #### [place] [place] [address] Aircraft Communicator: Pete Ward MD #### CDP #### [address] [place], [place] [phone] Aircraft Communicator: Torres Rick MD Creatinine [Mass/Vol] 0.5 mg/dL Low 0.7-1.2 [facility] Comment on above: Performed By: #### F EBC #### [address] [address] Aircraft Communicator: Pete Ward MD #### CDP #### [address] [place], [place] [id number] Aircraft Communicator: Torres Rick MD GFR/1.73 sq M.predicted among non-blacks MDRD (S/P/Bld) [Vol rate/Area] mL/min/{1.73_m2} Normal >60 [facility] Comment on above: Result Comment: These results are not intended for use in patients <18 years of age. eGFR results are calculated without a race factor using the 2020 CKD-EPI equation. Careful clinical correlation is recommended, particularly when comparing to results calculated using previous equations. The CKD-EPI equation is less accurate in patients with extremes of muscle mass, extra-renal metabolism of creatine, excessive creatine ingestion, or following therapy that affects renal tubular secretion. Performed By: #### F EBC #### [address] [address] Aircraft Communicator: Pete Ward MD #### CDP #### [address] [place], [place] [phone] Aircraft Communicator: Torres Rick MD Glucose [Mass/Vol] 105 mg/dL High 70-99 [facility] Comment on above: Performed By: #### F EBC #### [address] [address] Aircraft Communicator: Pete Ward MD #### CDP #### [address] [place], [place] [phone] Aircraft Communicator: Torres Rick MD Potassium [Moles/Vol] 4.5 mmol/L Normal 3.7-5.3 [facility] Comment on above: Performed By: #### F EBC #### [address] [address] Aircraft Communicator: Pete Ward MD #### CDP #### [address] [place], [place] [phone] Aircraft Communicator: Torres Rick MD Protein [Mass/Vol] 7.2 g/dL Normal 6.4-8.3 [facility] Comment on above: Performed By: #### F EBC #### [address] [address] Aircraft Communicator: Pete Ward MD #### CDP #### [address] [place], [place] [phone] Aircraft Communicator: Torres Rick MD Sodium [Moles/Vol] 149 mmol/L High 135-144 [facility] Comment on above: Performed By: #### F EBC #### [address], [place] [phone] Aircraft Communicator: Pete Ward MD #### CDP #### [facility] [address] [place] [address] Aircraft Communicator: Torres Rick MD Urea nitrogen [Mass/Vol] 19 mg/dL Normal 8-23 [facility] Comment on above: Performed By: #### F EBC #### [address] [address] [place] [address] Aircraft Communicator: Pete Ward MD #### CDP #### [facility] [address] [place] [address] Aircraft Communicator: Torres Rick MD Arterial Blood Gaseson 03-25 John Test PASS Normal [facility] Comment on above: Performed By: #### A BG #### [facility] [address] [place] [address] Aircraft Communicator: Torres Rick MD Body Temp. 37 Normal [facility] Comment on above: Performed By: #### A BG #### [facility] [address] [place] [address] Aircraft Communicator: Torres Rick MD HCO3 (Bld) [Moles/Vol] 39.0 mmol/L High 22-26 M [facility] Comment on above: Performed By: #### A BG #### [facility] [facility] [address] [place] [address] Aircraft Communicator: Torres Rick MD O2 Device/Flow/% Cannula Normal [facility] Comment on above: Result Comment: 3 Performed By: #### A BG #### [facility] [address] [place] [address] Aircraft Communicator: Torres Rick MD Oxygen (Bld) [Partial pressure] 59.8 mm[Hg] Low 80-100 [facility] Comment on above: Performed By: #### A BG #### [facility] [address] [place], [place] [id number] Aircraft Communicator: Torres Rick MD Oxygen saturation in Blood 90.2 % Low 95-98 [facility] Comment on above: Performed By: #### A BG #### [facility] [address] [place], [place] [id number] Aircraft Communicator: Torres Rick MD pCO2 59.2 mmHg High 35-45 [facility] Comment on above: Performed By: #### A BG #### [facility] [address] [place], [place] [id number] Aircraft Communicator: Torres Rick MD pH (Bld) 7.426 [pH] Normal 7.35-7.45 [facility] Comment on above: Performed By: #### A BG #### [address] [place], [place] [id number] Aircraft Communicator: Torres Rick MD Positive Base Excess 12.5 mmol/L High 0.0-2.0 [facility] Comment on above: Performed By: #### A BG #### [address] [place], [place] [id number] Aircraft Communicator: Torres Rick MD CBCon 03-25-2023 Erythrocyte distribution width (RBC) [Ratio] 21.5 % High 11.8-14.4 [facility] Comment on above: Performed By: #### B 12FOL #### [address] [place] [address] Aircraft Communicator: Pete Ward MD Hematocrit (Bld) [Volume fraction] 30.5 % Low 40.7-50.3 [facility] Comment on above: Performed By: #### B 12FOL #### [facility] [address] [place], [place] [id number] Aircraft Communicator: Pete Ward MD Hemoglobin (Bld) [Mass/Vol] 8.4 g/dL Low 13.0-17.0 [facility] Comment on above: Performed By: #### B 12FOL #### [address] [address] Aircraft Communicator: Pete Ward MD MCH (RBC) [Entitic mass] 22.8 pg Low 25.2-33.5 [facility] Comment on above: Performed By: #### B 12FOL #### [address] [address] Aircraft Communicator: Pete Ward MD MCHC (RBC) [Mass/Vol] 27.5 g/dL Low 28.4-34.8 [facility] Comment on above: Performed By: #### B 12FOL #### [address] [address] Aircraft Communicator: Pete Ward MD MCV (RBC) [Entitic vol] 82.9 fL Normal 82.6-102.9 [facility] Comment on above: Performed By: #### B 12FOL #### [address] [address] Aircraft Communicator: Pete Ward MD NRBC Automated 0.0 per 100 WBC Normal 0.0 [facility] Comment on above: Performed By: #### B 12FOL #### [address] [address] Aircraft Communicator: Pete Ward MD Platelet mean volume (Bld) [Entitic vol] 11.6 fL Normal 8.1-13.5 [facility] Comment on above: Performed By: #### B 12FOL #### [address] [address] Aircraft Communicator: Pete Ward MD Platelets (Bld) [#/Vol] 378 10*3/uL Normal 138-453 [facility] Comment on above: Performed By: #### B 12FOL #### [address] [address] [place], [place] [id number] Aircraft Communicator: Pete Ward MD RBC (Bld) [#/Vol] 3.68 10*6/uL Low 4.21-5.77 [facility] Comment on above: Performed By: #### B 12FOL #### [employer] [address] [place] [address] Aircraft Communicator: Pete Ward MD WBC (Bld) [#/Vol] 12.4 10*3/uL High 3.5-11.3 [facility] Comment on above: Performed By: #### B 12FOL #### [employer] [address] [place] [address] Aircraft Communicator: Pete Ward MD CT CHEST PULMONARY EMBOLISM W CONTRASTon 03-25-2023 CT CHEST PULMONARY EMBOLISM W CONTRAST EXAMINATION: CTA OF THE CHEST 03/23/2023 1:10 pm TECHNIQUE: CTA of the chest was performed after the administration of intravenous contrast. Multiplanar reformatted images are provided for review. MIP images are provided for review. Automated exposure control, iterative reconstruction, and/or weight based adjustment of the mA/kV was utilized to reduce the radiation dose to as low as reasonably achievable. COMPARISON: CT chest from 02/05/2016 HISTORY: ORDERING SYSTEM PROVIDED HISTORY: persistant resp failure TECHNOLOGIST PROVIDED HISTORY: persistant resp failure FINDINGS: Pulmonary Arteries: Pulmonary arteries are adequately opacified for evaluation. No evidence of intraluminal filling defect to suggest pulmonary embolism. Main pulmonary artery is normal in caliber. Mediastinum: Bilateral hilar lymphadenopathy. Nodes in the right hilum measure up to 1.4 cm and similarly nodes in the left hilum measure up to 1.4 cm. The heart and pericardium demonstrate no acute abnormality. There is no acute abnormality of the thoracic aorta. Lungs/pleura: Small bilateral pleural effusions and lower lobe atelectatic changes. The left effusion is loculated. Fluid-filled bronchi seen in the left lower lobe possibly related to aspiration and/or bronchiectasis. Ill-defined pulmonary nodule in the right upper lobe measures 6.7 mm. Slightly higher in the right upper lobe, an 8.3 mm nodule noted. An 8.8 mm nodule right lower lobe against the fissure. Mild scarring left upper lobe with loss of volume. Upper Abdomen: Limited images of the upper abdomen are unremarkable. Soft Tissues/Bones: No acute bone or soft tissue abnormality. IMPRESSION: 1. No evidence of acute pulmonary embolism or enlargement of the main pulmonary artery. No evidence of aortic aneurysm or dissection. 2. Small bilateral pleural effusions and lower lobe atelectatic changes. The left effusion is loculated. 3. Pulmonary nodules in the right upper lobe measuring 6.7 and 8.3 mm as well as right lower lobe pulmonary nodule measuring 8.8 mm. See recommendations below. 4. Mild scarring in the left upper lobe with some loss of volume. No evidence of consolidative infiltrates. 5. Bilateral hilar lymphadenopathy. RECOMMENDATIONS: Pathology: Multiple pulmonary nodules. Most significant: 9 mm right solid pulmonary nodule.Per Fleischner Society Guidelines, consider a non-contrast Chest CT at 3 months, a PET/CT, or tissue sampling.These guidelines do not apply to immunocompromised patients and patients with cancer. Follow up in patients with significant comorbidities as clinically warranted. For lung cancer screening, adhere to Lung-RADS guidelines. Reference: Radiology. 2017; 284(1):228-43. Interpreted by: Danitza Sharp MD Signed by: Danitza Sharp MD 03/25/23 Final result Normal [facility] Comp Metabolic Pr/rfx MGon 1 0- Albumin [Mass/Vol] 3.4 g/dL Low 3.5-5.2 [facility] Comment on above: Performed By: #### B 12FOL #### [facility] [address] [place] [address] Aircraft Communicator: Pete Ward MD Albumin/Glob Ratio 1.0 Normal 1.0-2.5 [facility] Comment on above: Performed By: #### B 12FOL #### [facility] [address] [place], [place] [id number] Aircraft Communicator: Pete Ward MD Alkaline Phos 82 U/L Normal 40-129 [facility] Comment on above: Performed By: #### B 12FOL #### [employer] [address] [place] [address] Aircraft Communicator: Pete Ward MD ALT [Catalytic activity/Vol] 10 U/L Normal 5-41 [facility] Comment on above: Performed By: #### B 12FOL #### [facility] [address] [place] [address] Aircraft Communicator: Pete Ward MD Anion gap [Moles/Vol] 3 mmol/L Low 9-17 [facility] Comment on above: Performed By: #### B 12FOL #### [address] [address] Aircraft Communicator: Pete Ward MD AST [Catalytic activity/Vol] 23 U/L Normal <40 [facility] Comment on above: Performed By: #### B 12FOL #### [address] [address] Aircraft Communicator: Pete Ward MD Bilirubin [Mass/Vol] 0.4 mg/dL Normal 0.3-1.2 [facility] Comment on above: Performed By: #### B 12FOL #### [address] [address] Aircraft Communicator: Pete Ward MD BUN/CRE Ratio 40 High 9-20 [facility] Comment on above: Performed By: #### B 12FOL #### [address] [address] Aircraft Communicator: Pete Ward MD Calcium [Mass/Vol] 10.2 mg/dL Normal 8.6-10.4 [facility] Comment on above: Performed By: #### B 12FOL #### [address] [address] Aircraft Communicator: Pete Ward MD Chloride [Moles/Vol] 102 mmol/L Normal 98-107 [facility] Comment on above: Performed By: #### B 12FOL #### [facility] [address] [place] [address] Aircraft Communicator: Pete Ward MD CO2 [Moles/Vol] 43 mmol/L Critically high 20-31 [facility] Comment on above: Performed By: #### B 12FOL #### [facility] [address] [place] [address] Aircraft Communicator: Pete Ward MD Creatinine [Mass/Vol] 0.5 mg/dL Low 0.7-1.2 [facility] Comment on above: Performed By: #### B 12FOL #### [facility] [address] [place] [address] Aircraft Communicator: Pete Ward MD GFR/1.73 sq M.predicted among non-blacks MDRD (S/P/Bld) [Vol rate/Area] mL/min/{1.73_m2} Normal >60 [facility] Comment on above: Result Comment: These results are not intended for use in patients <18 years of age. eGFR results are calculated without a race factor using the 2020 CKD-EPI equation. Careful clinical correlation is recommended, particularly when comparing to results calculated using previous equations. The CKD-EPI equation is less accurate in patients with extremes of muscle mass, extra-renal metabolism of creatine, excessive creatine ingestion, or following therapy that affects renal tubular secretion. Performed By: #### B 12FOL #### [facility] [address] [place] [address] Aircraft Communicator: Pete Ward MD Glucose [Mass/Vol] 152 mg/dL High 70-99 [facility] Comment on above: Performed By: #### B 12FOL #### [facility] [place] [address] Aircraft Communicator: Pete Ward MD Potassium [Moles/Vol] 3.3 mmol/L Low 3.7-5.3 [facility] Comment on above: Performed By: #### B 12FOL #### [facility] [address] [place] [address] Aircraft Communicator: Pete Ward MD Protein [Mass/Vol] 6.9 g/dL Normal 6.4-8.3 [facility] Comment on above: Performed By: #### B 12FOL #### [facility] [address] [place] [address] Aircraft Communicator: Pete Ward MD Sodium [Moles/Vol] 148 mmol/L High 135-144 [facility] Comment on above: Performed By: #### B 12FOL #### [facility] [address] [place] [address] Aircraft Communicator: Pete Ward MD Urea nitrogen [Mass/Vol] 20 mg/dL Normal 8-23 [facility] Comment on above: Performed By: #### B 12FOL #### [facility] [address] [place] [address] Aircraft Communicator: Pete Ward MD Magnesiumon 03-25-2023 Magnesium [Mass/Vol] 2.1 mg/dL Normal 1.6-2.6 [facility] Comment on above: Performed By: #### B 12FOL #### [facility] [address] [place] [address] Aircraft Communicator: Pete Ward MD Arterial Blood Gaseson 03-24 John Test UNABLE TO COLLECT Normal [facility] Comment on above: Performed By: #### H H #### [facility] [address] [place] [address] [place] [address] Aircraft Communicator: Torres Rick MD Body Temp. UNABLE TO COLLECT Normal [facility] Comment on above: Performed By: #### H H #### [facility] [address] [place] [address] Aircraft Communicator: Torres Rick MD Carboxy Hgb UNABLE TO COLLECT Normal 0-5 [facility] Comment on above: Performed By: #### H H #### [facility] [address] [place] [address] Aircraft Communicator: Torres Rick MD FIO2 UNABLE TO COLLECT Normal [facility] Comment on above: Performed By: #### H H #### [facility] [address] [place] [address] Aircraft Communicator: Torres Rick MD HCO3 UNABLE TO COLLECT Normal 22-27 [facility] Comment on above: Performed By: #### H H #### [facility] [address] [place] [address] Aircraft Communicator: Torres Rick MD Methemoglobin UNABLE TO COLLECT Normal 0.0-1.5 [facility] Comment on above: Performed By: #### H H #### [facility] [address] [place], [place] [phone] Aircraft Communicator: Torres Rick MD Mode UNABLE TO COLLECT Normal [facility] Comment on above: Performed By: #### H H #### [facility] [address] [place], [place] [id number] Aircraft Communicator: Torres Rick MD Negative Base Excess UNABLE TO COLLECT Normal 0.0-2.0 [facility] Comment on above: Performed By: #### H H #### [facility] [address] [place] [address] [place] [place], [place] [id number] Aircraft Communicator: Torres Rick MD Notification Time UNABLE TO COLLECT Normal [facility] Comment on above: Performed By: #### H H #### [facility] [address] [place] [address] Aircraft Communicator: Torres Rick MD Notification: UNABLE TO COLLECT Normal [facility] Comment on above: Performed By: #### H H #### [facility] [address] [place] [address] Aircraft Communicator: Torres Rick MD O2 Device/Flow/% UNABLE TO COLLECT Normal [facility] Comment on above: Performed By: #### H H #### [facility] [address] [place] [address] Aircraft Communicator: Torres Rick MD O2 Saturation UNABLE TO COLLECT Normal 94-100 [facility] Comment on above: Performed By: #### H H #### [facility] [address] [place], [place] [id number] Aircraft Communicator: Torres Rick MD Oxyhemoglobin UNABLE TO COLLECT Normal 95.0-98.0 [facility] Comment on above: Performed By: #### H H #### [facility] [address] [place], [place] [id number] Aircraft Communicator: Torres Rick MD pCO2 UNABLE TO COLLECT Normal 32-45 [facility] Comment on above: Performed By: #### H H #### [facility] [address] [place], [place] [id number] Aircraft Communicator: Torres Rick MD pCO2 Adj'd for Temp UNABLE TO COLLECT Normal 32-45 [facility] Comment on above: Performed By: #### H H #### [facility] [address] [place] [address] Aircraft Communicator: Torres Rick MD PEEP/CPAP UNABLE TO COLLECT Normal [facility] Comment on above: Performed By: #### H H #### [facility] [address] [place] [address] Aircraft Communicator: Torres Rick MD pH UNABLE TO COLLECT Normal 7.350-7.450 [facility] Comment on above: Performed By: #### H H #### [facility] [address] [place] [address] Aircraft Communicator: Torres Rick MD pH Adjst'd for Temp. UNABLE TO COLLECT Normal 7.350-7. 450 [facility] Comment on above: Performed By: #### H H #### [facility] [address] [place] [id number] Aircraft Communicator: Torres Rick MD pO2 UNABLE TO COLLECT Normal 75-95 [facility] Comment on above: Performed By: #### H H #### [facility] [address] [place] [address] Aircraft Communicator: Torres Rick MD pO2 Adjst'd for Temp UNABLE TO COLLECT Normal 75-95 [facility] Comment on above: Performed By: #### H H #### [facility] [address] [place], [place] [id number] Aircraft Communicator: Torres Rick MD Positive Base Excess UNABLE TO COLLECT Normal 0.0-2.0 [facility] Comment on above: Performed By: #### H H #### [facility] [address] [place], [place] [phone] Aircraft Communicator: Torres Rick MD PSV UNABLE TO COLLECT Normal [facility] Comment on above: Performed By: #### H H #### [facility] [address] [place], [place] [id number] Aircraft Communicator: Torres Rick MD Pt. Position UNABLE TO COLLECT Normal [facility] Comment on above: Performed By: #### H H #### [facility] [address] [place], [place] 3860383 Aircraft Communicator: Torres Rick MD Respiratory Rate UNABLE TO COLLECT Normal [facility] Comment on above: Performed By: #### H H #### [facility] [address] [place], [place] [id number] Aircraft Communicator: Torres Rick MD Set Rate UNABLE TO COLLECT Normal [facility] Comment on above: Performed By: #### H H #### [facility] [address] [place], [place] [phone] Aircraft Communicator: Torres Rick MD Site Drawn UNABLE TO COLLECT Normal [facility] Comment on above: Performed By: #### H H #### [facility] [address] [place], [place] [id number] Aircraft Communicator: Torres Rick MD Text for Respiratory UNABLE TO COLLECT Normal [facility] Comment on above: Performed By: #### H H #### [facility] [address] [place] [address] Aircraft Communicator: Torres Rick MD Total Hb UNABLE TO COLLECT Normal 12.0-16.0 [facility] Comment on above: Performed By: #### H H #### [facility] [address] [place] [id number] Aircraft Communicator: Torres Rick MD Total Rate UNABLE TO COLLECT Normal [facility] Comment on above: Performed By: #### H H #### [facility] [address] [place] [id number] Aircraft Communicator: Torres Rick MD VT UNABLE TO COLLECT Normal [facility] Comment on above: Performed By: #### H H #### [facility] [address] [place] [id number] Aircraft Communicator: Torres Rick MD CBCon 03-24-2023 Platelet, Fluoresc. 348 k/uL Normal 138-453 [facility] Comment on above: Performed By: #### F EBC #### [address] [id number] Aircraft Communicator: Pete Ward MD #### CDP #### [facility] [address] [place] [address] Aircraft Communicator: Torres Rick MD PLT, Immature Fract. 7.9 % Normal 1.1-10.3 [facility] Comment on above: Performed By: #### F EBC #### [address] [id number] Aircraft Communicator: Pete Ward MD #### CDP #### [facility] [address] [place] [address] [place] [address] Aircraft Communicator: Torres Rick MD Erythrocyte distribution width (RBC) [Ratio] 21.3 % High 11.8-14.4 [facility] Comment on above: Performed By: #### F EBC #### [address] [id number] Aircraft Communicator: Pete Ward MD #### CDP #### [facility] [address] [place] [address] [place] [address] Aircraft Communicator: Torres Rick MD Hematocrit (Bld) [Volume fraction] 31.4 % Low 40.7-50.3 [facility] Comment on above: Performed By: #### F EBC #### [address] [address] Aircraft Communicator: Pete Ward MD #### CDP #### [facility] [address] [place] [address] [place] [place] [phone] Aircraft Communicator: Torres Rick MD Hemoglobin (Bld) [Mass/Vol] 8.7 g/dL Low 13.0-17.0 [facility] Comment on above: Performed By: #### F EBC #### [address] [address] Aircraft Communicator: Pete Ward MD #### CDP #### [facility] [address] [place] [address] [place]. [place], [place] [id number] Aircraft Communicator: Torres Rick MD MCH (RBC) [Entitic mass] 22.5 pg Low 25.2-33.5 [facility] Comment on above: Performed By: #### F EBC #### [address] [address] Aircraft Communicator: Pete Ward MD #### CDP #### [address] [place], [place] [id number] Aircraft Communicator: Torres Rick MD MCHC (RBC) [Mass/Vol] 27.7 g/dL Low 28.4-34.8 [facility] Comment on above: Performed By: #### F EBC #### [address] [address] Aircraft Communicator: Pete Ward MD #### CDP #### [address] [place], [place] 779[address]83 Aircraft Communicator: Torres Rick MD MCV (RBC) [Entitic vol] 81.3 fL Low 82.6-102.9 [facility] Comment on above: Performed By: #### F EBC #### [address] [id number] Aircraft Communicator: Pete Ward MD #### CDP #### [address] [place], [place] 6282083 Aircraft Communicator: Torres Rick MD NRBC Automated 0.0 per 100 WBC Normal 0.0 [facility] Comment on above: Performed By: #### F EBC #### [address] [address] Aircraft Communicator: Pete Ward MD #### CDP #### [address] [place] [id number] Aircraft Communicator: Torres Rick MD Platelet Count See Reflexed IPF Result Normal 138-453 [facility] Comment on above: Performed By: #### F EBC #### [address] [address] Aircraft Communicator: Pete Ward MD #### CDP #### [address] [place], [place] [id number] Aircraft Communicator: Torres Rick MD RBC (Bld) [#/Vol] 3.86 10*6/uL Low 4.21-5.77 [facility] Comment on above: Performed By: #### F EBC #### [address] [place] [address] Aircraft Communicator: Pete Ward MD #### CDP #### [address] [place] [id number] Aircraft Communicator: Torres Rick MD WBC (Bld) [#/Vol] 9.5 10*3/uL Normal 3.5-11.3 [facility] Comment on above: Performed By: #### F EBC #### [address] [address] Aircraft Communicator: Pete Ward MD #### CDP #### [address] [place] [id number] Aircraft Communicator: Torres Rick MD Comp Metabolic Pr/rfx MGon 1 0- Albumin [Mass/Vol] 3.3 g/dL Low 3.5-5.2 [facility] Comment on above: Performed By: #### F EBC #### [address] [address] Aircraft Communicator: Pete Ward MD #### CDP #### [address] [place] [id number] Aircraft Communicator: Torres Rick MD Albumin/Glob Ratio 0.9 Low 1.0-2.5 [facility] Comment on above: Performed By: #### F EBC #### [address] [address] Aircraft Communicator: Pete Ward MD #### CDP #### [address] [place] [place] [address] Aircraft Communicator: Torres Rick MD Alkaline Phos 91 U/L Normal 40-129 [facility] Comment on above: Performed By: #### F EBC #### [address] [place] [address] Aircraft Communicator: Pete Ward MD #### CDP #### [facility] [address] [place], [place] [id number] Aircraft Communicator: Torres Rick MD ALT [Catalytic activity/Vol] 9 U/L Normal 5-41 [facility] Comment on above: Performed By: #### F EBC #### [address] [address] Aircraft Communicator: Pete Ward MD #### CDP #### [facility] [address] [place], [place] [id number] Aircraft Communicator: Torres Rick MD Anion gap [Moles/Vol] 11 mmol/L Normal 9-17 [facility] Comment on above: Performed By: #### F EBC #### [address] [address] Aircraft Communicator: Pete Ward MD #### CDP #### [address] [place], [place] [id number] Aircraft Communicator: Torres Rick MD AST [Catalytic activity/Vol] 18 U/L Normal <40 [facility] Comment on above: Performed By: #### F EBC #### [address] [address] Aircraft Communicator: Pete Ward MD #### CDP #### [address] [place], [place] 422[address] Aircraft Communicator: Torres Rick MD Bilirubin [Mass/Vol] 0.4 mg/dL Normal 0.3-1.2 [facility] Comment on above: Performed By: #### F EBC #### [address] [place] [address] Aircraft Communicator: Pete Ward MD #### CDP #### [facility] [address] [place], [place] [id number] Aircraft Communicator: Torres Rick MD BUN/CRE Ratio 33 High 9-20 [facility] Comment on above: Performed By: #### F EBC #### [address] [address] Aircraft Communicator: Pete Ward MD #### CDP #### [facility] [address] [place] [address] Aircraft Communicator: Torres Rick MD Calcium [Mass/Vol] 9.7 mg/dL Normal 8.6-10.4 [facility] Comment on above: Performed By: #### F EBC #### [address] [address] Aircraft Communicator: Pete Ward MD #### CDP #### [facility] [address] [place] [address] [place] [phone] Aircraft Communicator: Torres Rick MD Chloride [Moles/Vol] 94 mmol/L Low 98-107 [facility] Comment on above: Performed By: #### F EBC #### [address] [address] Aircraft Communicator: Pete Ward MD #### CDP #### [facility] [address] [place] [id number] Aircraft Communicator: Torres Rick MD CO2 [Moles/Vol] 38 mmol/L High 20-31 [facility] Comment on above: Performed By: #### F EBC #### [address] [address] Aircraft Communicator: Pete Ward MD #### CDP #### [facility] [address] [place] [address] [place], [place] [id number] Aircraft Communicator: Torres Rick MD Creatinine [Mass/Vol] 0.7 mg/dL Normal 0.7-1.2 [facility] Comment on above: Performed By: #### F EBC #### [address] [address] Aircraft Communicator: Pete Ward MD #### CDP #### [address] [place], [place] [id number] Aircraft Communicator: Torres Rick MD GFR/1.73 sq M.predicted among non-blacks MDRD (S/P/Bld) [Vol rate/Area] mL/min/{1.73_m2} Normal >60 [facility] Comment on above: Result Comment: These results are not intended for use in patients <18 years of age. eGFR results are calculated without a race factor using the 2020 CKD-EPI equation. Careful clinical correlation is recommended, particularly when comparing to results calculated using previous equations. The CKD-EPI equation is less accurate in patients with extremes of muscle mass, extra-renal metabolism of creatine, excessive creatine ingestion, or following therapy that affects renal tubular secretion. Performed By: #### F EBC #### [address] [address] Aircraft Communicator: Pete Ward MD #### CDP #### [address] [place], [place] [id number] Aircraft Communicator: Torres Rick MD Glucose [Mass/Vol] 120 mg/dL High 70-99 [facility] Comment on above: Performed By: #### F EBC #### [address] [address] Aircraft Communicator: Pete Ward MD #### CDP #### [address] [place], [place] [id number] Aircraft Communicator: Torres Rick MD Potassium [Moles/Vol] 3.8 mmol/L Normal 3.7-5.3 [facility] Comment on above: Performed By: #### F EBC #### [address] [address] Aircraft Communicator: Pete Ward MD #### CDP #### [facility] [address] [place] [address] [place], [place] [phone] Aircraft Communicator: Torres Rick MD Protein [Mass/Vol] 7.1 g/dL Normal 6.4-8.3 [facility] Comment on above: Performed By: #### F EBC #### [address] [address] Aircraft Communicator: Pete Ward MD #### CDP #### [facility] [address] [place] [address] [place], [place] [phone] Aircraft Communicator: Torres Rick MD Sodium [Moles/Vol] 143 mmol/L Normal 135-144 [facility] Comment on above: Performed By: #### F EBC #### [address] [address] Aircraft Communicator: Pete Ward MD #### CDP #### [address] [place], [place] [phone] Aircraft Communicator: Torres Rick MD Urea nitrogen [Mass/Vol] 23 mg/dL Normal 8-23 [facility] Comment on above: Performed By: #### F EBC #### [address] [address] Aircraft Communicator: Pete Ward MD #### CDP #### [address] [place], [place] [id number] Aircraft Communicator: Torres Rick MD Venous Blood Gaseson 20-2 023 John Test PASS Normal [facility] Comment on above: Performed By: #### F EBC #### [address] [address] Aircraft Communicator: Pete Ward MD #### CDP #### [facility] [address] [place] [address] [place] [address] Aircraft Communicator: Torres Rick MD Body Temp. 37.0 [facility] [place] Comment on above: Performed By: #### F EBC #### [address] [address] Aircraft Communicator: Pete Ward MD #### CDP #### [address] [place] [address] Aircraft Communicator: Torres Rick MD HCO3 (Bld) [Moles/Vol] 44.1 mmol/L High 24.0-30.0 M [facility] Comment on above: Performed By: #### F EBC #### [address] [address] Aircraft Communicator: Pete Ward MD #### CDP #### [address] [place] [address] Aircraft Communicator: Torres Rick MD O2 Device/Flow/% Cannula Normal [facility] Comment on above: Performed By: #### F EBC #### [address] [address] Aircraft Communicator: Pete Ward MD #### CDP #### [address] [place], [place] [phone] Aircraft Communicator: Torres Rick MD Oxygen saturation in Blood 51.1 % Low 60.0-85.0 [facility] Comment on above: Performed By: #### F EBC #### [address] [address] Aircraft Communicator: Pete Ward MD #### CDP #### [address] [place], [place] [id number] Aircraft Communicator: Torres Rick MD pCO2 68.1 mm Hg Critically high 39-55 [facility] Comment on above: Performed By: #### F EBC #### [address] [address] Aircraft Communicator: Pete Ward MD #### CDP #### [facility] [address] [place] [address] [place], [place] [phone] Aircraft Communicator: Torres Rick MD pH (Bld) 7.429 [pH] High 7.32-7.42 [facility] Comment on above: Performed By: #### F EBC #### [address] [address] Aircraft Communicator: Pete Ward MD #### CDP #### [facility] [address] [place] [address] [place], [place] [phone] Aircraft Communicator: Torres Rick MD pO2 27.8 mm Hg Low 30.0-50.0 [facility] Comment on above: Performed By: #### F EBC #### [address] [address] Aircraft Communicator: Pete Ward MD #### CDP #### [address] [place], [place] [phone] Aircraft Communicator: Torres Rick MD Positive Base Excess 15.9 mmol/L High 0.0-2.0 [facility] Comment on above: Performed By: #### F EBC #### [address] [address] Aircraft Communicator: Pete Ward MD #### CDP #### [facility] [address] [place] [address] [place], [place] [phone] Aircraft Communicator: Torres Rick MD Pt. Position SEMI-FOWLERS Normal [facility] Comment on above: Performed By: #### F EBC #### [facility] [address] [place] [address] Aircraft Communicator: Pete Ward MD #### CDP #### [facility] [address] [place] [address] [place], [place] [phone] Aircraft Communicator: Torres Rick MD Site Drawn Right Brachial Artery Normal [facility] Comment on above: Performed By: #### F EBC #### [facility] [address] [place] [address] Aircraft Communicator: Pete Ward MD #### CDP #### [address] [place] [address] Aircraft Communicator: Torres Rick MD Arterial Blood Gaseson 03-23 John Test PASS Normal [facility] Comment on above: Performed By: #### A BG #### [facility] [address] [place] [address] Dr. [place], [place] [phone] Aircraft Communicator: Torres Rick MD HCO3 (Bld) [Moles/Vol] 41.4 mmol/L High 22-26 M [facility] Comment on above: Performed By: #### A BG #### [address] [place], [place] [id number] Aircraft Communicator: Torres Rick MD O2 Device/Flow/% Cannula Normal [facility] Comment on above: Performed By: #### A BG #### [facility] [address] [place], [place] [phone] Aircraft Communicator: Torres Rick MD Oxygen (Bld) [Partial pressure] 56.8 mm[Hg] Low 80-100 [facility] Comment on above: Performed By: #### A BG #### [facility] [address] [place] [address] [place]. [place], [place] [phone] Aircraft Communicator: Torres Rick MD Oxygen saturation in Blood 86.4 % Low 95-98 [facility] Comment on above: Performed By: #### A BG #### [facility] [address] [place], [place] [phone] Aircraft Communicator: Torres Rick MD pCO2 78.6 mmHg Critically high 35-45 [facility] Comment on above: Performed By: #### A BG #### [facility] [address] [place] [address] Aircraft Communicator: Torres Rick MD pH (Bld) 7.339 [pH] Low 7.35-7.45 [facility] Comment on above: Performed By: #### A BG #### [address] [place], [place] [phone] Aircraft Communicator: Torres Rick MD Positive Base Excess 11.7 mmol/L High 0.0-2.0 [facility] Comment on above: Performed By: #### A BG #### [facility] [address] [place], [place] [phone] Aircraft Communicator: Torres Rick MD Pt. Position SEMI-FOWLERS Normal [facility] Comment on above: Performed By: #### A BG #### [address] [place], [place] [phone] Aircraft Communicator: Torres Rick MD Site Drawn Left Radial Artery Normal [facility] Comment on above: Performed By: #### A BG #### [facility] [address] [place], [place] [phone] Aircraft Communicator: Torres Rick MD CBC with Diffon 03-23-2023 Abs. Basophil 0.12 k/uL Normal 0.00-0.20 [facility] Comment on above: Performed By: #### F EBC #### [facility] [address] [place], [place] [phone] Aircraft Communicator: Pete Ward MD #### CDP #### [facility] [address] [place] [phone] Aircraft Communicator: Torres Rick MD Abs.Imm.Granulocyte 0.00 k/uL Normal 0.00-0.30 [facility] Comment on above: Performed By: #### F EBC #### [address] [address] Aircraft Communicator: Pete Ward MD #### CDP #### [address] [place] [phone] Aircraft Communicator: Torres Rick MD Abs.Neutrophil (Seg) 9.77 k/uL High 1.50-8.10 [facility] Comment on above: Performed By: #### F EBC #### [place] [address] Aircraft Communicator: Pete Ward MD #### CDP #### [address] [place] [address] Aircraft Communicator: Torres Rick MD Basophils/100 WBC (Bld) 1 % Normal 0-2 M [facility] Comment on above: Performed By: #### F EBC #### [place] [address] Aircraft Communicator: Pete Ward MD #### CDP #### [address] [place] [phone] Aircraft Communicator: Torres Rick MD Eosinophils (Bld) [#/Vol] 0.12 10*3/uL Normal 0.00-0.4 4 [facility] Comment on above: Performed By: #### F EBC #### [address] [address] Aircraft Communicator: Pete Ward MD #### CDP #### [address] [place] [phone] Aircraft Communicator: Torres Rick MD Eosinophils/100 WBC (Bld) 1 % Normal 1-4 [facility] Comment on above: Performed By: #### F EBC #### [place] [address] [place] [address] Aircraft Communicator: Pete Ward MD #### CDP #### [facility] [address] [place], [place] [phone] Aircraft Communicator: Torres Rick MD Immature granulocytes/100 WBC (Bld) 0 % Normal 0 [facility] Comment on above: Performed By: #### F EBC #### [address] [address] Aircraft Communicator: Pete Ward MD #### CDP #### [facility] [address] [place] [address] [place] [phone] Aircraft Communicator: Torres Rick MD Lymphocytes (Bld) [#/Vol] 0.85 10*3/uL Low 1.10-3.7 0 [facility] Comment on above: Performed By: #### F EBC #### [address] [address] Aircraft Communicator: Pete Ward MD #### CDP #### [facility] [address] [place] [address] Dr. [place] [phone] Aircraft Communicator: Torres Rick MD Lymphocytes/100 WBC (Bld) 7 % Low 24-43 [facility] Comment on above: Performed By: #### F EBC #### [address] [address] Aircraft Communicator: Pete Ward MD #### CDP #### [facility] [address] [place] [address] [place] [address] Aircraft Communicator: Torres Rick MD Monocytes (Bld) [#/Vol] 1.34 10*3/uL High 0.10-1.20 [facility] Comment on above: Performed By: #### F EBC #### [address] [address] Aircraft Communicator: Pete Ward MD #### CDP #### [facility] [address] [place], [place] [id number] Aircraft Communicator: Torres Rick MD Monocytes/100 WBC (Bld) 11 % Normal 3-12 [facility] Comment on above: Performed By: #### F EBC #### [address] [address] Aircraft Communicator: Pete Ward MD #### CDP #### [facility] [address] [place] [address] [place]. [place], [place] [phone] Aircraft Communicator: Torres Rick MD Morphology Luis (Bld) [Interp] HYPOCHROMIA Normal [facility] Comment on above: Result Comment: PRES ENT ANISOCYTOSIS PRESENT Performed By: #### F EBC #### [address] [address] Aircraft Communicator: Pete Ward MD #### CDP #### [facility] [address] [place] [address] [place]. [place], [place] [phone] Aircraft Communicator: Torres Rick MD Neutrophil (Seg) 80 % High 36-65 [facility] Comment on above: Performed By: #### F EBC #### [address] [address] Aircraft Communicator: Pete Ward MD #### CDP #### [facility] [address] [place] [address] [place] [address] Aircraft Communicator: Torres Rick MD Erythrocyte distribution width (RBC) [Ratio] 20.6 % High 11.8-14.4 [facility] Comment on above: Performed By: #### F EBC #### [address] [address] Aircraft Communicator: Pete Ward MD #### CDP #### [facility] [address] [place] [address] [place]. [place] [phone] Aircraft Communicator: Torres Rick MD Hematocrit (Bld) [Volume fraction] 30.2 % Low 40.7-50.3 [facility] Comment on above: Performed By: #### F EBC #### [address] [address] Aircraft Communicator: Pete Ward MD #### CDP #### [address] [place] [phone] Aircraft Communicator: Torres Rick MD Hemoglobin (Bld) [Mass/Vol] 8.6 g/dL Low 13.0-17.0 [facility] Comment on above: Performed By: #### F EBC #### [address] [address] Aircraft Communicator: Pete Ward MD #### CDP #### [address] [place] [facility]83 Aircraft Communicator: Torres Rick MD MCH (RBC) [Entitic mass] 22.9 pg Low 25.2-33.5 [facility] Comment on above: Performed By: #### F EBC #### [address] [address] Aircraft Communicator: Pete Ward MD #### CDP #### [facility] [address] [place] [address] [place]. [place] [phone] Aircraft Communicator: Torres Rick MD MCHC (RBC) [Mass/Vol] 28.5 g/dL Normal 28.4-34.8 [facility] Comment on above: Performed By: #### F EBC #### [address] [address] Aircraft Communicator: Pete Ward MD #### CDP #### [address] [place], [place] [phone] Aircraft Communicator: Torres Rick MD MCV (RBC) [Entitic vol] 80.3 fL Low 82.6-102.9 M [facility] Comment on above: Performed By: #### F EBC #### [address] [address] Aircraft Communicator: Pete Ward MD #### CDP #### [address] [place] [phone] Aircraft Communicator: Torres Rick MD NRBC Automated 0.0 per 100 WBC Normal 0.0 [facility] Comment on above: Performed By: #### F EBC #### [address] [address] Aircraft Communicator: Pete Ward MD #### CDP #### [address] [place] [phone] Aircraft Communicator: Torres Rick MD Platelet mean volume (Bld) [Entitic vol] 11.0 fL Normal 8.1-13.5 [facility] Comment on above: Performed By: #### F EBC #### [address] [address] Aircraft Communicator: Pete Ward MD #### CDP #### [address] [place] [phone] Aircraft Communicator: Torres Rick MD Platelets (Bld) [#/Vol] 332 10*3/uL Normal 138-453 [facility] Comment on above: Performed By: #### F EBC #### [address] [address] Aircraft Communicator: Pete Ward MD #### CDP #### [address] [place] [phone] Aircraft Communicator: Torres Rick MD RBC (Bld) [#/Vol] 3.76 10*6/uL Low 4.21-5.77 [facility] Comment on above: Performed By: #### F EBC #### [address] [address] Aircraft Communicator: Pete Ward MD #### CDP #### [address] [place], [place] [id number] Aircraft Communicator: Torres Rick MD WBC (Bld) [#/Vol] 12.2 10*3/uL High 3.5-11.3 [facility] Comment on above: Performed By: #### F EBC #### [address] [address] Aircraft Communicator: Pete Ward MD #### CDP #### [address] [place], [place] [phone] Aircraft Communicator: Torres Rick MD Comp Metabolic Pr/rfx MGon 1 0- Anion gap [Moles/Vol] 9 mmol/L Normal 9-17 [facility] Comment on above: Performed By: #### F EBC #### [address] [address] Aircraft Communicator: Pete Ward MD #### CDP #### [address] [place] [id number] Aircraft Communicator: Torres Rick MD CO2 [Moles/Vol] 40 mmol/L High 20- [facility] Comment on above: Performed By: #### F EBC #### [address] [address] Aircraft Communicator: Pete Ward MD #### CDP #### [address] [place] [id number] Aircraft Communicator: Torres Rick MD Albumin [Mass/Vol] 3.2 g/dL Low 3.5-5.2 [facility] Comment on above: Performed By: #### F EBC #### [facility] [address] [place] [address] Aircraft Communicator: Pete Ward MD #### CDP #### [facility] [address] [place] [address] [place], [place] [phone] Aircraft Communicator: Torres Rick MD Albumin/Glob Ratio 0.8 Low 1.0-2.5 [facility] Comment on above: Performed By: #### F EBC #### [address] [address] Aircraft Communicator: Pete Ward MD #### CDP #### [facility] [address] [place] [address] [place], [place] [id number] Aircraft Communicator: Torres Rick MD Alkaline Phos 104 U/L Normal 40-129 [facility] Comment on above: Performed By: #### F EBC #### [address] [address] Aircraft Communicator: Pete Ward MD #### CDP #### [address] [place], [place] [id number] Aircraft Communicator: Torres Rick MD ALT [Catalytic activity/Vol] 9 U/L Normal 5-41 [facility] Comment on above: Performed By: #### F EBC #### [address] [address] Aircraft Communicator: Pete Ward MD #### CDP #### [facility] [address] [place] [address] [place] [address] Aircraft Communicator: Torres Rick MD AST [Catalytic activity/Vol] 24 U/L Normal <40 [facility] Comment on above: Performed By: #### F EBC #### [place] [address] [place] [address] Aircraft Communicator: Pete Ward MD #### CDP #### [facility] [address] [place], [place] [id number] Aircraft Communicator: Torres Rick MD Bilirubin [Mass/Vol] 0.6 mg/dL Normal 0.3-1.2 [facility] Comment on above: Performed By: #### F EBC #### [address] [address] Aircraft Communicator: Pete Ward MD #### CDP #### [facility] [address] [place], [place] [phone] Aircraft Communicator: Torres Rick MD BUN/CRE Ratio 26 High 9-20 [facility] Comment on above: Performed By: #### F EBC #### [address] [address] Aircraft Communicator: Pete Ward MD #### CDP #### [facility] [address] [place] [address] [place], [place] [phone] Aircraft Communicator: Torres Rick MD Calcium [Mass/Vol] 9.8 mg/dL Normal 8.6-10.4 [facility] Comment on above: Performed By: #### F EBC #### [address] [address] Aircraft Communicator: Pete Ward MD #### CDP #### [facility] [address] [place], [place] [phone] Aircraft Communicator: Torres Rick MD Chloride [Moles/Vol] 91 mmol/L Low 98-107 [facility] Comment on above: Performed By: #### F EBC #### [address] [address] Aircraft Communicator: Pete aWrd MD #### CDP #### [facility] [address] [place] [address] [place] [address] Aircraft Communicator: Torres Rick MD Creatinine [Mass/Vol] 0.7 mg/dL Normal 0.7-1.2 [facility] Comment on above: Performed By: #### F EBC #### [address] [address] Aircraft Communicator: Pete Ward MD #### CDP #### [facility] [address] [place] [address] [place], [place] [phone] Aircraft Communicator: Torres Rick MD GFR/1.73 sq M.predicted among non-blacks MDRD (S/P/Bld) [Vol rate/Area] mL/min/{1.73_m2} Normal >60 [facility] Comment on above: Result Comment: These results are not intended for use in patients <18 years of age. eGFR results are calculated without a race factor using the 2020 CKD-EPI equation. Careful clinical correlation is recommended, particularly when comparing to results calculated using previous equations. The CKD-EPI equation is less accurate in patients with extremes of muscle mass, extra-renal metabolism of creatine, excessive creatine ingestion, or following therapy that affects renal tubular secretion. Performed By: #### F EBC #### [address] [address] Aircraft Communicator: Pete Ward MD #### CDP #### [facility] [address] [place] [address] [place] [place], [place] [id number] Aircraft Communicator: Torres Rick MD Glucose [Mass/Vol] 77 mg/dL Normal 70-99 [facility] Comment on above: Performed By: #### F EBC #### [address] [address] Aircraft Communicator: Pete Ward MD #### CDP #### [facility] [address] [place] [address] [place] [address] Aircraft Communicator: Torres Rick MD Potassium [Moles/Vol] 3.6 mmol/L Low 3.7-5.3 [facility] Comment on above: Performed By: #### F EBC #### [facility] [address] [place] [address] Aircraft Communicator: Pete Ward MD #### CDP #### [facility] [address] [place] [address] [place], [place] [phone] Aircraft Communicator: Torres Rick MD Protein [Mass/Vol] 7.1 g/dL Normal 6.4-8.3 [facility] Comment on above: Performed By: #### F EBC #### [address] [address] Aircraft Communicator: Pete Ward MD #### CDP #### [address] [place], [place] [phone] Aircraft Communicator: Torres Rick MD Sodium [Moles/Vol] 140 mmol/L Normal 135-144 [facility] Comment on above: Performed By: #### F EBC #### [address] [address] Aircraft Communicator: Pete Ward MD #### CDP #### [address] [place], [place] [id number] Aircraft Communicator: Torres Rick MD Urea nitrogen [Mass/Vol] 18 mg/dL Normal 8-23 [facility] Comment on above: Performed By: #### F EBC #### [address] [address] Aircraft Communicator: Pete Ward MD #### CDP #### [facility] [address] [place] [address] [place] [place], [place] [id number] Aircraft Communicator: Torres Rick MD Hgb/Hcton 03-23-2023 Hematocrit (Bld) [Volume fraction] 30.3 % Low 40.7-50.3 [facility] Comment on above: Performed By: #### F EBC #### [address] [address] Aircraft Communicator: Pete Ward MD #### CDP #### [facility] [address] [place] [address] [place], [place] [id number] Aircraft Communicator: Torres Rick MD Hemoglobin (Bld) [Mass/Vol] 8.7 g/dL Low 13.0-17.0 [facility] Comment on above: Performed By: #### F EBC #### [address] [address] Aircraft Communicator: Pete Ward MD #### CDP #### [facility] [address] [place] [address] [place] [address] Aircraft Communicator: Torres Rick MD Iron Binding Cap.on 03-23-20 23 % Fe Saturation 7 % Low 20-55 [facility] Comment on above: Performed By: #### F EBC #### [address] [address] Aircraft Communicator: Pete Ward MD #### CDP #### [facility] [address] [place] [address] [place] [address] Aircraft Communicator: Torres Rick MD Iron [Mass/Vol] 25 ug/dL Low 59-158 [facility] Comment on above: Performed By: #### F EBC #### [address] [address] Aircraft Communicator: Pete Ward MD #### CDP #### [facility] [address] [place] [address] [place] [address] Aircraft Communicator: Torres Rick MD Total Fe Binding Cap 370 ug/dL Normal 250-450 [facility] Comment on above: Performed By: #### F EBC #### [address] [place], [place] [id number] Aircraft Communicator: Pete Ward MD #### CDP #### [facility] [address] [place], [place] [id number] Aircraft Communicator: Torres Rick MD Unbound Fe Bind Cap 345 ug/dL Normal 112-347 [facility] Comment on above: Performed By: #### F EBC #### [facility] [address] [place] [address] Aircraft Communicator: Pete Ward MD #### CDP #### [facility] [address] [place] [address] Aircraft Communicator: Torres Rick MD Arterial Blood Gaseson 03-22 John Test PASS Normal [facility] Comment on above: Performed By: #### H H #### [facility] [address] [place] [address] Aircraft Communicator: Torres Rick MD Body Temp. 37.0 [facility] [place] Comment on above: Performed By: #### H H #### [facility] [address] [place] [address] Aircraft Communicator: Torres Rick MD FIO2 30 Normal [facility] Comment on above: Performed By: #### H H #### [facility] [address] [place] [address] Aircraft Communicator: Torres Rick MD HCO3 (Bld) [Moles/Vol] 43.1 mmol/L High 22-26 M [facility] Comment on above: Performed By: #### H H #### [facility] [address] [place] [address] Aircraft Communicator: Torres Rick MD O2 Device/Flow/% BIPAP Normal [facility] Comment on above: Performed By: #### H H #### [facility] [address] [place], [place] [id number] Aircraft Communicator: Torres Rick MD Oxygen (Bld) [Partial pressure] 60.9 mm[Hg] Low 80.0-100.0 [facility] Comment on above: Performed By: #### H H #### [facility] [address] [place] [address] [place]. [place] [id number] Aircraft Communicator: Torres Rick MD Oxygen saturation in Blood 89.9 % Low 95-98 [facility] Comment on above: Performed By: #### H H #### [address] [place] [id number] Aircraft Communicator: Torres Rick MD pCO2 74.0 mmHg Critically high 35-45 [facility] Comment on above: Performed By: #### H H #### [address] [place] [facility]83 Aircraft Communicator: Torres Rick MD pH (Bld) 7.383 [pH] Normal 7.35-7.45 [facility] Comment on above: Performed By: #### H H #### [address] [place] [address] Aircraft Communicator: Torres Rick MD Positive Base Excess 14.1 mmol/L High 0.0-2.0 [facility] Comment on above: Performed By: #### H H #### [address] [place], [place] [id number] Aircraft Communicator: Torres Rick MD Pt. Position SEMI-FOWLERS Normal [facility] Comment on above: Performed By: #### H H #### [address] [place] [address] Aircraft Communicator: Torres Rick MD Respiratory rate 44 /min Normal [facility] Comment on above: Performed By: #### H H #### [address] [place] [id number] Aircraft Communicator: Torres Rick MD Site Drawn Left Brachial Artery Normal [facility] Comment on above: Performed By: #### H H #### [facility] [address] [place], [place] [id number] Aircraft Communicator: Torres Rick MD CBC with Diffon 03-22-2023 Abs. Basophil 0.09 k/uL Normal 0.0-0.2 [facility] Comment on above: Performed By: #### F EBC #### [address] [address] Aircraft Communicator: Pete Ward MD #### CDP #### [address] [place] [id number] Aircraft Communicator: Torres Rick MD Abs.Imm.Granulocyte 0.00 k/uL Normal 0.00-0.30 [facility] Comment on above: Performed By: #### F EBC #### [address] [address] Aircraft Communicator: Pete Ward MD #### CDP #### [facility] [address] [place] [address] [place], [place] [id number] Aircraft Communicator: Torres Rick MD Abs.Neutrophil (Seg) 7.35 k/uL Normal 1.50-8.10 [facility] Comment on above: Performed By: #### F EBC #### [address] [address] Aircraft Communicator: Pete Ward MD #### CDP #### [address] [place], [place] [id number] Aircraft Communicator: Torres Rick MD Basophils/100 WBC (Bld) 1 % Normal 0-2 [facility] Comment on above: Performed By: #### F EBC #### [address] [address] Aircraft Communicator: Pete Ward MD #### CDP #### [facility] [address] [place] [address] [place] [id number] Aircraft Communicator: Torres Rick MD Eosinophils (Bld) [#/Vol] 0.09 10*3/uL Normal 0.00-0.4 4 [facility] Comment on above: Performed By: #### F EBC #### [address] [address] Aircraft Communicator: Pete Ward MD #### CDP #### [address] [place] [id number] Aircraft Communicator: Torres Rick MD Eosinophils/100 WBC (Bld) 1 % Normal 1-4 [facility] Comment on above: Performed By: #### F EBC #### [place] [address] Aircraft Communicator: Pete Ward MD #### CDP #### [address] [place] [place] [address] Aircraft Communicator: Torres Rick MD Immature granulocytes/100 WBC (Bld) 0 % Normal 0 [facility] Comment on above: Performed By: #### F EBC #### [address] [address] Aircraft Communicator: Pete Ward MD #### CDP #### [facility] [address] [place] [address] [place] [id number] Aircraft Communicator: Torres Rick MD Lymphocytes (Bld) [#/Vol] 0.84 10*3/uL Low 1.10-3.7 0 [facility] Comment on above: Performed By: #### F EBC #### [address] [address] Aircraft Communicator: Pete Ward MD #### CDP #### [facility] [address] [place], [place] [id number] Aircraft Communicator: Torres Rick MD Lymphocytes/100 WBC (Bld) 9 % Low 24-43 [facility] Comment on above: Performed By: #### F EBC #### [place] [address] [place] [address] Aircraft Communicator: Pete Ward MD #### CDP #### [facility] [address] [place] [address] Aircraft Communicator: Torres Rick MD Monocytes (Bld) [#/Vol] 0.93 10*3/uL Normal 0.10-1.20 [facility] Comment on above: Performed By: #### F EBC #### [address] [address] Aircraft Communicator: Pete Ward MD #### CDP #### [address] [place], [place] [id number] Aircraft Communicator: Torres Rick MD Monocytes/100 WBC (Bld) 10 % Normal 3-12 M [facility] Comment on above: Performed By: #### F EBC #### [address] [address] Aircraft Communicator: Pete Ward MD #### CDP #### [address] [place] [place] [address] Aircraft Communicator: Torres Rick MD Morphology Luis (Bld) [Interp] HYPOCHROMIA Normal [facility] Comment on above: Result Comment: PRES ENT Large platelets noted Platelet clumps present, count appears adequate. Performed By: #### F EBC #### [address] [address] Aircraft Communicator: Pete Ward MD #### CDP #### [address] [place] [id number] Aircraft Communicator: Torres Rick MD Neutrophil (Seg) 79 % High 36-65 [facility] Comment on above: Performed By: #### F EBC #### [address] [place] [address] Aircraft Communicator: Pete Ward MD #### CDP #### [address] [place], [place] [id number] Aircraft Communicator: Torres Rick MD Erythrocyte distribution width (RBC) [Ratio] 19.6 % High 11.8-14.4 [facility] Comment on above: Performed By: #### F EBC #### [address] [address] Aircraft Communicator: Pete Ward MD #### CDP #### [address] [place], [place] [id number] Aircraft Communicator: Torres Rick MD Hematocrit (Bld) [Volume fraction] 28.8 % Low 40.7-50.3 [facility] Comment on above: Performed By: #### F EBC #### [address] [address] Aircraft Communicator: Pete Ward MD #### CDP #### [address] [place] [id number] Aircraft Communicator: Torres Rick MD Hemoglobin (Bld) [Mass/Vol] 8.2 g/dL Low 13.0-17.0 [facility] Comment on above: Performed By: #### F EBC #### [address] [address] Aircraft Communicator: Pete Ward MD #### CDP #### [address] [place], [place] 1995683 Aircraft Communicator: Torres Rick MD MCH (RBC) [Entitic mass] 22.9 pg Low 25.2-33.5 [facility] Comment on above: Performed By: #### F EBC #### [address] [place] [address] Aircraft Communicator: Pete Ward MD #### CDP #### [address] [place] [id number] Aircraft Communicator: Torres Rick MD MCHC (RBC) [Mass/Vol] 28.5 g/dL Normal 28.4-34.8 [facility] Comment on above: Performed By: #### F EBC #### [address] [address] Aircraft Communicator: Pete Ward MD #### CDP #### [address] [place] [id number] Aircraft Communicator: Torres Rick MD MCV (RBC) [Entitic vol] 80.4 fL Low 82.6-102.9 M [facility] Comment on above: Performed By: #### F EBC #### [address] [address] Aircraft Communicator: Pete Ward MD #### CDP #### [address] [place] [id number] Aircraft Communicator: Torres Rick MD NRBC Automated 0.0 per 100 WBC Normal 0.0 [facility] Comment on above: Performed By: #### F EBC #### [address] [address] Aircraft Communicator: Pete Ward MD #### CDP #### [address] [place] [id number] Aircraft Communicator: Torres Rick MD Platelet mean volume (Bld) [Entitic vol] 12.3 fL Normal 8.1-13.5 [facility] Comment on above: Performed By: #### F EBC #### [facility] [address] [place] [address] Aircraft Communicator: Pete Ward MD #### CDP #### [facility] [address] [place], [place] [id number] Aircraft Communicator: Torres Rick MD Platelets (Bld) [#/Vol] 307 10*3/uL Normal 138-453 [facility] Comment on above: Performed By: #### F EBC #### [address] [place] [address] Aircraft Communicator: Pete Ward MD #### CDP #### [facility] [address] [place] [address] [place], [place] [id number] Aircraft Communicator: Torres Rick MD RBC (Bld) [#/Vol] 3.58 10*6/uL Low 4.21-5.77 [facility] Comment on above: Performed By: #### F EBC #### [address] [place] [address] Aircraft Communicator: Pete Ward MD #### CDP #### [address] [place], [place] [id number] Aircraft Communicator: Torres Rick MD WBC (Bld) [#/Vol] 9.3 10*3/uL Normal 3.5-11.3 [facility] Comment on above: Performed By: #### F EBC #### [facility] [address] [place] [address] Aircraft Communicator: Pete Ward MD #### CDP #### [facility] [address] [place] [address] [place], [place] [id number] Aircraft Communicator: Torres Rick MD Hgb/Hcton 03-22-2023 Hematocrit (Bld) [Volume fraction] 30.1 % Low 40.7-50.3 [facility] Comment on above: Performed By: #### F EBC #### [address] [place] [address] Aircraft Communicator: Pete Ward MD #### CDP #### [facility] [address] [place] [address] [place], [place] 1774183 Aircraft Communicator: Torres Rick MD Hemoglobin (Bld) [Mass/Vol] 8.7 g/dL Low 13.0-17.0 [facility] Comment on above: Performed By: #### F EBC #### [address] [address] Aircraft Communicator: Pete Ward MD #### CDP #### [address] [place], [place] [id number] Aircraft Communicator: Torres Rick MD Hematocrit (Bld) [Volume fraction] 31.1 % Low 40.7-50.3 [facility] Comment on above: Performed By: #### F EBC #### [address] [address] Aircraft Communicator: Pete Ward MD #### CDP #### [address] [place], [place] 7326083 Aircraft Communicator: Torres Rick MD Hemoglobin (Bld) [Mass/Vol] 9.0 g/dL Low 13.0-17.0 [facility] Comment on above: Performed By: #### F EBC #### [address] [place] [address] Aircraft Communicator: Pete Ward MD #### CDP #### [address] [place], [place] [id number] Aircraft Communicator: Torres Rick MD Hematocrit (Bld) [Volume fraction] 26.5 % Low 40.7-50.3 [facility] Comment on above: Performed By: #### B 12FOL #### [facility] [address] [place] [address] Aircraft Communicator: Pete Ward MD Hemoglobin (Bld) [Mass/Vol] 7.6 g/dL Low 13.0-17.0 [facility] Comment on above: Performed By: #### B 12FOL #### [facility] [address] [place] [address] Aircraft Communicator: Pete Ward MD Arterial Blood Gaseson 03-21 John Test PASS [facility] Comment on above: Performed By: #### A BG #### [facility] [address] [place] [address] Aircraft Communicator: Torres Rick MD Body Temp. 37.0 [facility] [place] Comment on above: Performed By: #### A BG #### [facility] [address] [place] [address] Aircraft Communicator: Torres Rick MD FIO2 30 [facility] [place] Comment on above: Performed By: #### A BG #### [facility] [address] [place] [address] Aircraft Communicator: Torres Rick MD HCO3 (Bld) [Moles/Vol] 42.8 mmol/L High 22-26 M [facility] Comment on above: Performed By: #### A BG #### [facility] [address] [place], [place] [id number] Aircraft Communicator: Torres Rick MD O2 Device/Flow/% BIPAP [facility] Comment on above: Performed By: #### A BG #### [facility] [address] [place] [address] Aircraft Communicator: Torres Rick MD Oxygen (Bld) [Partial pressure] 48.9 mm[Hg] Low 80.0-100.0 [facility] Comment on above: Performed By: #### A BG #### [facility] [address] [place], [place] 8551383 Aircraft Communicator: Torres Rick MD Oxygen saturation in Blood 82.2 % Low 95-98 [facility] Comment on above: Performed By: #### A BG #### [facility] [address] [place], [place] [id number] Aircraft Communicator: Torres Rick MD pCO2 73.2 mmHg Critically high 35-45 [facility] Comment on above: Performed By: #### A BG #### [address] [place], [place] [id number] Aircraft Communicator: Torres Rick MD pH (Bld) 7.385 [pH] Normal 7.35-7.45 [facility] Comment on above: Performed By: #### A BG #### [address] [place], [place] [id number] Aircraft Communicator: Torres Rick MD Positive Base Excess 13.9 mmol/L High 0.0-2.0 [facility] Comment on above: Performed By: #### A BG #### [address] [place], [place] [id number] Aircraft Communicator: Torres Rick MD Pt. Position SEMI-FOWLERS Normal [facility] Comment on above: Performed By: #### A BG #### [facility] [address] [place] [address] [place], [place] [id number] Aircraft Communicator: Torres iRck MD Respiratory rate 41 /min Normal [facility] Comment on above: Performed By: #### A BG #### [address] [place] [address] Aircraft Communicator: Torres Rick MD Site Drawn Left Radial Artery Normal [facility] Comment on above: Performed By: #### A BG #### [address] [place] [address] Aircraft Communicator: Torres Rick MD John Test PASS Normal [facility] Comment on above: Performed By: #### H H #### [facility] [address] [place] [address] Aircraft Communicator: Torres Rick MD HCO3 (Bld) [Moles/Vol] 39.4 mmol/L High 22-26 M [facility] Comment on above: Performed By: #### H H #### [facility] [address] [place] [id number] Aircraft Communicator: Torres Rick MD O2 Device/Flow/% Cannula Normal [facility] Comment on above: Result Comment: 5L Performed By: #### H H #### [facility] [address] [place] [address] Aircraft Communicator: Torres Rick MD Oxygen (Bld) [Partial pressure] 104.0 mm[Hg] High 80-100 [facility] Comment on above: Performed By: #### H H #### [facility] [address] [place] [id number] Aircraft Communicator: Torres Rick MD Oxygen saturation in Blood 96.6 % Normal 95-98 [facility] Comment on above: Performed By: #### H H #### [facility] [address] [place] [id number] Aircraft Communicator: oTrres Rick MD pCO2 90.2 mmHg Critically high 35-45 [facility] Comment on above: Performed By: #### H H #### [facility] [address] [place] [address] Aircraft Communicator: Torres Rick MD pH (Bld) 7.258 [pH] Low 7.35-7.45 [facility] Comment on above: Performed By: #### H H #### [facility] [address] [place] [address] Aircraft Communicator: Torres Rick MD Positive Base Excess 8.3 mmol/L High 0.0-2.0 [facility] Comment on above: Performed By: #### H H #### [facility] [address] [place] [address] Aircraft Communicator: Torres Rick MD Site Drawn Right Radial Artery Normal [facility] Comment on above: Performed By: #### H H #### [facility] [address] [place], [place] [id number] Aircraft Communicator: Torres Rick MD B12/Folate Panelon 3 Folic Acid >20.0 Normal >4.8 [facility] Comment on above: Performed By: #### B 12FOL #### [facility] [address] [place] [address] Aircraft Communicator: Pete Ward MD Cobalamin (Vitamin B12) [Mass/Vol] 826 pg/mL Normal 232-1245 [facility] Comment on above: Performed By: #### B 12FOL #### [facility] [address] [place] [address] Aircraft Communicator: Pete Ward MD Basic Metabolic Profon 03-211 Anion gap [Moles/Vol] 1 mmol/L Low - [facility] Comment on above: Performed By: #### H H #### [facility] [address] [place], [place] [id number] Aircraft Communicator: Torres Rick MD BUN/CRE Ratio 22 High 9-20 [facility] Comment on above: Performed By: #### H H #### [facility] [address] [place], [place] 8548583 Aircraft Communicator: Torres Rick MD Calcium [Mass/Vol] 9.2 mg/dL Normal 8.6-10.4 [facility] Comment on above: Performed By: #### H H #### [facility] [address] [place], [place] [id number] Aircraft Communicator: Torres Rick MD Chloride [Moles/Vol] 96 mmol/L Low 98-107 [facility] Comment on above: Performed By: #### H H #### [facility] [address] [place] [id number] Aircraft Communicator: Torres Rick MD CO2 [Moles/Vol] 42 mmol/L Critically high 20-31 [facility] Comment on above: Performed By: #### H H #### [facility] [address] [place] [address] Aircraft Communicator: Torres Rick MD Creatinine [Mass/Vol] 0.5 mg/dL Low 0.7-1.2 [facility] Comment on above: Performed By: #### H H #### [facility] [address] [place] [address] Aircraft Communicator: Torres Rick MD GFR/1.73 sq M.predicted among non-blacks MDRD (S/P/Bld) [Vol rate/Area] mL/min/{1.73_m2} Normal >60 [facility] Comment on above: Result Comment: These results are not intended for use in patients <18 years of age. eGFR results are calculated without a race factor using the 2020 CKD-EPI equation. Careful clinical correlation is recommended, particularly when comparing to results calculated using previous equations. The CKD-EPI equation is less accurate in patients with extremes of muscle mass, extra-renal metabolism of creatine, excessive creatine ingestion, or following therapy that affects renal tubular secretion. Performed By: #### H H #### [facility] [address] [place] [address] Aircraft Communicator: Torres Rick MD Glucose [Mass/Vol] 102 mg/dL High 70-99 [facility] Comment on above: Performed By: #### H H #### [facility] [address] [place] [address] Aircraft Communicator: Torres Rick MD Potassium [Moles/Vol] 4.6 mmol/L Normal 3.7-5.3 [facility] Comment on above: Performed By: #### H H #### [facility] [address] [place], [place] [id number] Aircraft Communicator: Torres Rick MD Sodium [Moles/Vol] 139 mmol/L Normal 135-144 [facility] Comment on above: Performed By: #### H H #### [facility] [address] [place], [place] [id number] Aircraft Communicator: Torres Rick MD Urea nitrogen [Mass/Vol] 11 mg/dL Normal 8-23 [facility] Comment on above: Performed By: #### H H #### [facility] [address] [place], [facility]83 Aircraft Communicator: Torres Rick MD CBC with Diffon 03-21-2023 Abs. Basophil <0.03 Normal 0.00-0.20 [facility] Comment on above: Performed By: #### H H #### [facility] [address] [place] [address] [place] [place], [place] [id number] Aircraft Communicator: Torres Rick MD Abs.Imm.Granulocyte 0.03 k/uL Normal 0.00-0.30 [facility] Comment on above: Performed By: #### H H #### [facility] [address] [place], [place] [id number] Aircraft Communicator: Torres Rick MD Abs.Neutrophil (Seg) 6.89 k/uL Normal 1.50-8.10 [facility] Comment on above: Performed By: #### H H #### [facility] [address] [place], [place] [id number] Aircraft Communicator: Torres Rick MD Basophils/100 WBC (Bld) 0 % Normal 0-2 M [facility] Comment on above: Performed By: #### H H #### [address] [place], [place] [id number] Aircraft Communicator: Torres Rick MD Eosinophils (Bld) [#/Vol] 0.12 10*3/uL Normal 0.00-0.4 4 [facility] Comment on above: Performed By: #### H H #### [address] [place] [facility]83 Aircraft Communicator: Torres Rick MD Eosinophils/100 WBC (Bld) 1 % Normal 1-4 [facility] Comment on above: Performed By: #### H H #### [address] [place] [facility]83 Aircraft Communicator: Torres Rick MD Erythrocyte distribution width (RBC) [Ratio] 19.8 % High 11.8-14.4 [facility] Comment on above: Performed By: #### H H #### [address] [address] Dr[address] Gray [facility]83 Aircraft Communicator: Torres Rick MD Hematocrit (Bld) [Volume fraction] 19.5 % Critically low 40.7-50.3 [facility] Comment on above: Performed By: #### H H #### [address] Gray [facility]83 Aircraft Communicator: Torres Rick MD Hemoglobin (Bld) [Mass/Vol] 5.0 g/dL Critically low 13.0-17.0 [facility] Comment on above: Performed By: #### H H #### [address] Gray [facility]83 Aircraft Communicator: Torres Rick MD Immature granulocytes/100 WBC (Bld) 0 % Normal 0 [facility] Comment on above: Performed By: #### H H #### [address] Gray [facility]52 Aircraft Communicator: Torres Rick MD Lymphocytes (Bld) [#/Vol] 1.01 10*3/uL Low 1.10-3.7 0 [facility] Comment on above: Performed By: #### H H #### [facility] [address] [place] [address] Dr. [place], [place] [id number] Aircraft Communicator: Torres Rick MD Lymphocytes/100 WBC (Bld) 11 % Low 24-43 [facility] Comment on above: Performed By: #### H H #### [facility] [address] [place] [address] Dr. [place], [place] [id number] Aircraft Communicator: Torres Rick MD MCH (RBC) [Entitic mass] 20.7 pg Low 25.2-33.5 [facility] Comment on above: Performed By: #### H H #### [facility] [address] [place] [address] Dr. Gray, [facility] ( Aircraft Communicator: Torres Rikc MD MCHC (RBC) [Mass/Vol] 25.6 g/dL Low 28.4-34.8 [facility] Comment on above: Performed By: #### H H #### [address] [place] [address] Aircraft Communicator: Torres Rick MD MCV (RBC) [Entitic vol] 80.9 fL Low 82.6-102.9 M [facility] Comment on above: Performed By: #### H H #### [facility] [address] [place] [address] Dr. [place], [place] [id number] Aircraft Communicator: Torres Rick MD Monocytes (Bld) [#/Vol] 0.88 10*3/uL Normal 0.10-1.20 [facility] Comment on above: Performed By: #### H H #### [facility] [address] [place] [address] [place] [address] Aircraft Communicator: Torres Rick MD Monocytes/100 WBC (Bld) 10 % Normal 3-12 M [facility] Comment on above: Performed By: #### H H #### [facility] [address] [place], [place] [id number] Aircraft Communicator: Torres Rick MD Neutrophil (Seg) 77 % High 36-65 [facility] Comment on above: Performed By: #### H H #### [facility] [address] Gray [facility]83 Aircraft Communicator: Torres Rick MD NRBC Automated 0.0 per 100 WBC Normal 0.0 [facility] Comment on above: Performed By: #### H H #### [facility] [address] [place], [facility]83 Aircraft Communicator: Torres Rick MD Platelet mean volume (Bld) [Entitic vol] 11.6 fL Normal 8.1-13.5 [facility] Comment on above: Performed By: #### H H #### [facility] [address] [place] [address] Dr. Gray [facility]83 Aircraft Communicator: Torres Rick MD Platelets (Bld) [#/Vol] 235 10*3/uL Normal 138-453 [facility] Comment on above: Performed By: #### H H #### [address] Gray [facility]83 Aircraft Communicator: Torres Rick MD RBC (Bld) [#/Vol] 2.41 10*6/uL Low 4.21-5.77 [facility] Comment on above: Performed By: #### H H #### [facility] [address] [place] [address] Dr. Gray [facility]83 Aircraft Communicator: Torres Rick MD WBC (Bld) [#/Vol] 9.0 10*3/uL Normal 3.5-11.3 [facility] Comment on above: Performed By: #### H H #### [facility] [address] [place] [address] Dr. [place], [place] [phone] Aircraft Communicator: Torres Rick MD Abs. Basophil 0.00 k/uL Normal 0.0-0.2 [facility] Comment on above: Performed By: #### H H #### [facility] [address] [place], [place] [id number] Aircraft Communicator: Torres Rick MD Abs.Imm.Granulocyte 0.00 k/uL Normal 0.00-0.30 [facility] Comment on above: Performed By: #### H H #### [address] Gray, [facility]83 Aircraft Communicator: Torres Rick MD Abs.Neutrophil (Seg) 7.77 k/uL Normal 1.50-8.10 [facility] [place] [facility] Comment on above: Performed By: #### H H #### [address] Gray, [facility]83 Aircraft Communicator: Torres Rick MD Basophils/100 WBC (Bld) 0 % Normal 0-2 [facility] Comment on above: Performed By: #### H H #### [address] Gray, [place] [address] Aircraft Communicator: Torres Rick MD Eosinophils (Bld) [#/Vol] 0.10 10*3/uL Normal 0.00-0.4 4 [facility] Comment on above: Performed By: #### H H #### [facility] [address] [place] [address] Dr. Gray, [facility]83 Aircraft Communicator: Torres Rick MD Eosinophils/100 WBC (Bld) 1 % Normal 1-4 [facility] Comment on above: Performed By: #### H H #### [facility] [address] [place], [place] [phone] Aircraft Communicator: Torres Rick MD Immature granulocytes/100 WBC (Bld) 0 % Normal 0 [facility] Comment on above: Performed By: #### H H #### [facility] [address] [place], [place] [id number] Aircraft Communicator: Torres Rick MD Lymphocytes (Bld) [#/Vol] 0.58 10*3/uL Low 1.10-3.7 0 [facility] Comment on above: Performed By: #### H H #### [facility] [address] [place], [place] [id number] Aircraft Communicator: Torres Rick MD Lymphocytes/100 WBC (Bld) 6 % Low 24-43 [facility] Comment on above: Performed By: #### H H #### [facility] [address] [place], [place] [id number] Aircraft Communicator: Torres Rick MD Monocytes (Bld) [#/Vol] 1.15 10*3/uL Normal 0.10-1.20 [facility] Comment on above: Performed By: #### H H #### [facility] [address] [place], [facility]83 Aircraft Communicator: Torres Rick MD Monocytes/100 WBC (Bld) 12 % Normal 3-12 M [facility] Comment on above: Performed By: #### H H #### [facility] [address] [place] [id number] Aircraft Communicator: Torres Rick MD Morphology Luis (Bld) [Interp] Platelet scan shows Normal Platelets Normal [facility] Comment on above: Result Comment: ANIS OCYTOSIS PRESENT Performed By: #### H H #### [facility] [address] [place] [id number] Aircraft Communicator: Torres Rick MD Neutrophil (Seg) 81 % High 36-65 [facility] Comment on above: Performed By: #### H H #### [facility] [address] Gray [facility]83 Aircraft Communicator: Torres Rick MD Erythrocyte distribution width (RBC) [Ratio] 20.7 % High 11.8-14.4 [facility] Comment on above: Performed By: #### H H #### [facility] [address] [place] [address] Dr. [place], [place] [id number] Aircraft Communicator: Torres Rick MD Hematocrit (Bld) [Volume fraction] 19.0 % Critically low 40.7-50.3 [facility] Comment on above: Performed By: #### H H #### [facility] [address] [place] [address] Dr. [place], [place] [id number] Aircraft Communicator: Torres Rick MD Hemoglobin (Bld) [Mass/Vol] 4.5 g/dL Critically low 13.0-17.0 [facility] Comment on above: Performed By: #### H H #### [address] [place], [place] [id number] Aircraft Communicator: Torres Rick MD MCH (RBC) [Entitic mass] 19.0 pg Low 25.2-33.5 [facility] Comment on above: Performed By: #### H H #### [address] [place], [place] [id number] Aircraft Communicator: Torres Rick MD MCHC (RBC) [Mass/Vol] 23.7 g/dL Low 28.4-34.8 [facility] Comment on above: Performed By: #### H H #### [facility] [address] [place] [address] Dr. [place], [place] [id number] Aircraft Communicator: Torres Rick MD MCV (RBC) [Entitic vol] 80.2 fL Low 82.6-102.9 M [facility] Comment on above: Performed By: #### H H #### [facility] [address] [place] [address] Dr. [place], [place] [phone] Aircraft Communicator: Torres Rick MD NRBC Automated 0.0 per 100 WBC Normal 0.0 [facility] Comment on above: Performed By: #### H H #### [facility] [address] [place], [place] [id number] Aircraft Communicator: Torres Rick MD Platelet mean volume (Bld) [Entitic vol] 11.1 fL Normal 8.1-13.5 [facility] Comment on above: Performed By: #### H H #### [facility] [address] Gray [facility]83 Aircraft Communicator: Torres Rick MD Platelets (Bld) [#/Vol] 244 10*3/uL Normal 138-453 [facility] Comment on above: Performed By: #### H H #### [facility] [address] [place] [facility]83 Aircraft Communicator: Torres Rick MD RBC (Bld) [#/Vol] 2.37 10*6/uL Low 4.21-5.77 [facility] Comment on above: Performed By: #### H H #### [address] Gray, [facility]83 Aircraft Communicator: Torres Rick MD WBC (Bld) [#/Vol] 9.6 10*3/uL Normal 3.5-11.3 [facility] Comment on above: Performed By: #### H H #### [address] Gray, [facility]83 Aircraft Communicator: Torres Rick MD CT HEAD WO CONTRASTon 2022 CT HEAD WO CONTRAST EXAMINATION: CT OF THE HEAD WITHOUT CONTRAST 03/21/2023 12:25 am TECHNIQUE: CT of the head was performed without the administration of intravenous contrast. Automated exposure control, iterative reconstruction, and/or weight based adjustment of the mA/kV was utilized to reduce the radiation dose to as low as reasonably achievable. COMPARISON: None. HISTORY: ORDERING SYSTEM PROVIDED HISTORY: Fall with blow lac, LOC FINDINGS: BRAIN/VENTRICLES: There is no acute intracranial hemorrhage, mass effect or midline shift. No abnormal extra-axial fluid collection. The mendosa-white differentiation is maintained without evidence of an acute infarct. There is prominence of the ventricles and sulci due to global parenchymal volume loss. There are nonspecific areas of hypoattenuation within the periventricular and subcortical white matter, which likely represent chronic microvascular ischemic change. ORBITS: The visualized portion of the orbits demonstrate no acute abnormality. SINUSES: Mucosal thickening and air-fluid level in the left maxillary sinus. Remainder of the visualized paranasal sinuses and mastoid air cells demonstrate no acute abnormality. SOFT TISSUES/SKULL: No acute abnormality of the visualized skull or soft tissues. IMPRESSION: No acute intracranial abnormality. Mucosal thickening and air-fluid level in the left maxillary sinus. Interpreted by: Soraya Ward MD Signed by: Soraya Ward MD 03/21/23 Final result Normal [facility] Ferritinon 03-21-2023 Ferritin [Mass/Vol] 11 ng/mL Low 30-400 [facility] Comment on above: Performed By: #### H H #### [facility] [address] [place] [address] [place] [address] Aircraft Communicator: Torres Rick MD Hgb/Hcton 03-21-2023 Hematocrit (Bld) [Volume fraction] 25.6 % Low 40.7-50.3 [facility] Comment on above: Performed By: #### H H #### [address] [place] [address] Aircraft Communicator: Torres Rick MD Hemoglobin (Bld) [Mass/Vol] 7.3 g/dL Low 13.0-17.0 [facility] Comment on above: Performed By: #### H H #### [address] [place] [address] Aircraft Communicator: Torres Rick MD Hematocrit (Bld) [Volume fraction] 25.4 % Low 40.7-50.3 [facility] Comment on above: Performed By: #### H H #### [address] [place] [address] Aircraft Communicator: Torres Rick MD Hemoglobin (Bld) [Mass/Vol] 7.0 g/dL Low 13.0-17.0 [facility] Comment on above: Performed By: #### H H #### [facility] [address] [place] [address] [place], [place] [phone] Aircraft Communicator: Torres Rick MD Hematocrit (Bld) [Volume fraction] 24.2 % Low 40.7-50.3 [facility] Comment on above: Performed By: #### F EBC #### [address] [address] Aircraft Communicator: Pete Ward MD #### CDP #### [address] [place], [place] [id number] Aircraft Communicator: Torres Rick MD Hemoglobin (Bld) [Mass/Vol] 6.7 g/dL Critically low 13.0-17.0 [facility] Comment on above: Performed By: #### F EBC #### [address] [address] Aircraft Communicator: Pete Ward MD #### CDP #### [address] [place], [place] [id number] Aircraft Communicator: Torres Rick MD Lactic Acidon 03-21-2023 Lactate [Moles/Vol] 0.8 mmol/L Normal 0.5-2.2 [facility] Comment on above: Performed By: #### H H #### [address] [place] [address] Aircraft Communicator: Torres Rick MD PTon 03-21-2023 INR Coag (PPP) [Relative time] 1.3 {INR} Normal [facility] Comment on above: Result Comment: Therapeutic Range: Moderate Anticoagulant Intensity: INR = 2.0-3.0 High Anticoagulant Intensity: INR = 2.5-3.5 Performed By: #### P T #### [facility] [address] [place] [address] [place] [address] Aircraft Communicator: Torres Rick MD PT Coag (PPP) [Time] 16.0 s High 11.9-14.8 [facility] [place] [facility] Comment on above: Performed By: #### P T #### [facility] [address] [place] [address] [place], [place] [id number] Aircraft Communicator: Torres Rick MD Troponinon 03-21-2023 Troponin, High Sens 29 ng/L High 0-22 [facility] Comment on above: Result Comment: High Sensitivity Troponin values cannot be compared with other Troponin methodologies. Performed By: #### F EBC #### [address] [id number] Aircraft Communicator: Pete Ward MD #### CDP #### [address] [place], [place] [id number] Aircraft Communicator: Torres Rick MD Troponin, High Sens 30 ng/L High 0-22 [facility] Comment on above: Result Comment: High Sensitivity Troponin values cannot be compared with other Troponin methodologies. Performed By: #### F EBC #### [address] [address] Aircraft Communicator: Pete Ward MD #### CDP #### [address] [place] [id number] Aircraft Communicator: Torres Rick MD Type + Screenon 03-21-2023 Type + Screen Sample Expiration 03/24/2023,2359 Arm Band Number [id number] ABO/Rh(D) A POSITIVE Antibody Screen NEGATIVE Unit Number [id number] Blood Component Type Leukocyte Reduced Red Cell Unit Division 00 Status of Unit TRANSFUSED Transfusion Status OK TO TRANSFUSE Crossmatch Result COMPATIBLE Unit Number [id number] Blood Component Type Leukocyte Reduced Red Cell Unit Division 00 Status of Unit TRANSFUSED Transfusion Status OK TO TRANSFUSE Crossmatch Result COMPATIBLE Unit Number [id number] Blood Component Type Leukocyte Reduced Red Cell Unit Division 00 Status of Unit TRANSFUSED Transfusion Status OK TO TRANSFUSE Crossmatch Result COMPATIBLE Normal [facility] Comment on above: Performed By: #### F EBC #### [address] [address] Aircraft Communicator: Pete Ward MD #### CDP #### [facility] [address] [place] [address] Dr. [place], [place] [phone] Aircraft Communicator: Torres Rick MD Urinalysis w/ Microon 2022 Bacteria TRACE Abnormal NONE [facility] Comment on above: Performed By: #### F EBC #### [address] [address] Aircraft Communicator: Pete Ward MD #### CDP #### [facility] [address] [place] [address] Dr. [place], [place] [phone] Aircraft Communicator: Torres Rick MD Bilirubin, SemiQt,Ur Negative Normal NEG [facility] [place] [facility] Comment on above: Performed By: #### F EBC #### [address] [address] Aircraft Communicator: Pete Ward MD #### CDP #### [address] [place], [place] [id number] Aircraft Communicator: Torres Rick MD Blood, Urine 1+ Abnormal NEG [facility] Comment on above: Performed By: #### F EBC #### [address] [address] Aircraft Communicator: Pete Ward MD #### CDP #### [facility] [address] [place] [address] [place] [address] Aircraft Communicator: Torres Rick MD Clarity (U) Clear Normal CLEAR [facility] Comment on above: Performed By: #### F EBC #### [address] [address] Aircraft Communicator: Pete Ward MD #### CDP #### [facility] [address] [place] [address] Dr. [place], [place] [id number] Aircraft Communicator: Torers Rick MD Color (U) Yellow Normal YEL [facility] Comment on above: Performed By: #### F EBC #### [address] [address] Aircraft Communicator: Pete Ward MD #### CDP #### [facility] [address] [place] [address] [place], [place] [phone] Aircraft Communicator: Torres Rick MD Epithelial cells LM Ql (Urine sed) 0 TO 2 Normal 0-5 [facility] Comment on above: Performed By: #### F EBC #### [address] [address] Aircraft Communicator: Pete Ward MD #### CDP #### [address] [place], [place] [phone] Aircraft Communicator: Torres Rick MD Glucose Ql (U) Negative Normal NEG [facility] Comment on above: Performed By: #### F EBC #### [address] [address] Aircraft Communicator: Pete Ward MD #### CDP #### [address] [place], [place] [id number] Aircraft Communicator: Torres Rick MD Ketones Ql (U) Negative Normal NEG [facility] Comment on above: Performed By: #### F EBC #### [address] [address] Aircraft Communicator: Pete Ward MD #### CDP #### [address] [place], [place] [id number] Aircraft Communicator: Torres Rick MD Leukocyte esterase Test strip Ql (U) SMALL Abnormal NEG [facility] Comment on above: Performed By: #### F EBC #### [address] [address] Aircraft Communicator: Pete Ward MD #### CDP #### [facility] [address] [place] [address] [place] [address] Aircraft Communicator: Torres Rick MD Nitrite,Ur Negative Normal NEG [facility] Comment on above: Performed By: #### F EBC #### [address] [address] Aircraft Communicator: Pete Ward MD #### CDP #### [address] [place] [place] [address] Aircraft Communicator: Torres Rick MD PH,Ur 6.0 Normal 5.0-9.0 [facility] Comment on above: Performed By: #### F EBC #### [address] [address] Aircraft Communicator: Pete Ward MD #### CDP #### [address] [place] [place] [address] Aircraft Communicator: Torres Rick MD Protein Ql (U) Negative Normal NEG [facility] Comment on above: Performed By: #### F EBC #### [address] [address] Aircraft Communicator: Pete Ward MD #### CDP #### [facility] [address] [place] [address] [place] [address] Aircraft Communicator: Torres Rick MD Spec. [place],Ur 1.010 Normal 1.010-1.020 [facility] Comment on above: Performed By: #### F EBC #### [address] [address] Aircraft Communicator: Pete Ward MD #### CDP #### [facility] [address] [place] [address] [place], [place] [id number] Aircraft Communicator: Torres Rick MD Urine RBC's 2 TO 5 Normal 0-2 [facility] Comment on above: Performed By: #### F EBC #### [facility] [address] [place] [address] Aircraft Communicator: Pete Ward MD #### CDP #### [facility] [address] [place] [address] Dr[place], [place] [id number] Aircraft Communicator: Torres Rick MD Urine WBC's 0 TO 2 Normal 0-5 [facility] Comment on above: Performed By: #### F EBC #### [address] [address] Aircraft Communicator: Pete Ward MD #### CDP #### [address] [place], [place] [phone] Aircraft Communicator: Torres Rick MD Urobilinogen,Ur Normal Normal 0.0-1.0 [facility] Comment on above: Performed By: #### F EBC #### [address] [address] Aircraft Communicator: Pete Ward MD #### CDP #### [address] [place] [address] Aircraft Communicator: Torres Rick MD XR CHEST (2 VW)on 03-21-2023 XR CHEST (2 VW) EXAMINATION: TWO XRAY VIEWS OF THE CHEST 03/21/2023 12:28 am COMPARISON: Portable chest x-ray on 02/08/2016. HISTORY: ORDERING SYSTEM PROVIDED HISTORY: shortness of breath TECHNOLOGIST PROVIDED HISTORY: shortness of breath FINDINGS: Cardiac size appears to be mildly larger, currently top normal. There is txrr-qh-rbmkaang pulmonary vascular congestion/cephalizat ion since. Evidence of mild interstitial pulmonary edema in lungs. Evidence of bibasilar pleural effusion in the posterior CP gutters bilaterally. Mild streaky atelectatic changes are present in the posterior lung bases bilaterally. Mild to moderate multilevel spondylotic changes in the thoracic spine. IMPRESSION: Top-normal cardiac size. Mild congestive heart failure with mild to moderate pulmonary vascular congestion and mild to moderate interstitial pulmonary edema in lungs. Mild bibasilar atelectatic changes at the base of the lungs. Small pleural effusions present bilaterally in the posterior CP gutters. No pneumothorax Interpreted by: Pito Merino MD Signed by: Pito Merino MD 03/21/23 Final result Normal [facility] XR ELBOW RIGHT (2 VIEWS)on 1 XR ELBOW RIGHT (2 VIEWS) EXAMINATION: TWO XRAY VIEWS OF THE RIGHT ELBOW 03/21/2023 12:25 am COMPARISON: None. HISTORY: ORDERING SYSTEM PROVIDED HISTORY: fall, soft tissue swelling with pain TECHNOLOGIST PROVIDED HISTORY: fall, soft tissue swelling with pain FINDINGS: No fracture or dislocation is identified. No destructive osseous process is identified. No radiopaque foreign body. IMPRESSION: Intact elbow without acute osseous abnormality. Interpreted by: Torres Scruggs MD Signed by: Torres Scruggs MD 03/21/23 Final result Normal [facility] CBC AUTO DIFFon 04-29-2021 BASO # 0.1 103/ul Normal 0.0-0.1 [facility] Comment on above: Performed By: #### C BC #### [facility] [address] [address] [address] Ishmael George Basophils/100 WBC (Bld) 0.7 % Normal 0.2-2.0 [facility] Comment on above: Performed By: #### C BC #### [facility] [address] [address] [address] Ishmael George EO # 0.1 103/ul Normal 0.0-0.7 [facility] Comment on above: Performed By: #### C BC #### [facility] [address] [address] [address] Ishmael George Eosinophils/100 WBC (Bld) 1.0 % Normal 0.9-7.0 [facility] Comment on above: Performed By: #### C BC #### [facility] [address] [place] [address] Dr. Ishmael George Erythrocyte distribution width (RBC) [Ratio] 18.0 % Critically high 11.0-15.0 [facility] Comment on above: Performed By: #### C BC #### [facility] [address] [place] [address] Dr. Ishmael George Hematocrit (Bld) [Volume fraction] 44.6 % Normal 42.0-54.0 [facility] - [place] Comment on above: Performed By: #### C BC #### [facility] [address] [place] [address] Dr. Ishmael George Hemoglobin (Bld) [Mass/Vol] 13.0 g/dL Critically low 14.0-18.0 [facility] [place] Comment on above: Performed By: #### C BC #### [facility] [address] [place] [address] Dr. Ishmael George IG # 0.03 10e3/ul Normal 0.00-0.03 [facility] [place] Comment on above: Performed By: #### C BC #### [facility] [address] [place] [address] Dr. Ishmael George IG % 0.3 % Normal 0.0-0.5 [facility] [place] Comment on above: Performed By: #### C BC #### [facility] [address] [place] [address] Dr. Ishmael George LYMPH # 1.0 103/ul Critically low 1.2-3.8 [facility] Comment on above: Performed By: #### C BC #### [facility] [address] [place] [address] Dr. Ishmael George Lymphocytes/100 WBC (Bld) 9.2 % Critically low 20.5-6 0.0 [facility] [place] Comment on above: Performed By: #### C BC #### [facility] [address] [place] [address] Dr. Ishmael George MANUAL DIFF REQ NO Normal [facility] Comment on above: Performed By: #### C BC #### [facility] [address] [address] [address] Ishmael George MCH (RBC) [Entitic mass] 25.8 pg Critically low 25.9-34 .0 [facility] [place] Comment on above: Performed By: #### C BC #### [facility] [address] [place] [address] Dr. Ishmael George MCHC (RBC) [Mass/Vol] 29.1 g/dL Critically low 29.9-35.2 [facility] [place] Comment on above: Performed By: #### C BC #### [facility] [address] [place] [address] Dr. Ishmael George MCV (RBC) [Entitic vol] 88.7 fL Normal 80.0-94.0 [facility] Comment on above: Performed By: #### C BC #### [facility] [address] [place] [address] Dr. Ishmael George MONO # 0.8 103/ul Normal 0.3-0.8 [facility] [place] Comment on above: Performed By: #### C BC #### [facility] [address] [place] [address] Dr. Ishmael George Monocytes/100 WBC (Bld) 7.7 % Normal 1.7-12.0 [facility] Comment on above: Performed By: #### C BC #### [facility] [address] [place] [address] Dr. Ishmael George NEUT # 8.7 103/ul Critically high 1.4-6.5 [facility] Comment on above: Performed By: #### C BC #### [facility] [address] [place] [address] Dr. Ishmael George Neutrophils/100 WBC (Bld) 81.1 % Critically high 43.0- 75.0 [facility] [place] Comment on above: Performed By: #### C BC #### [facility] [address] [place] [address] Dr. Ishmael George Platelet mean volume (Bld) [Entitic vol] 12.2 fL Normal 9.5-13.5 [facility] [place] Comment on above: Performed By: #### C BC #### [facility] [address] [place], [place] [address] Dr. Ishmael George PLT 274 103/ul Normal 150-450 [facility] Comment on above: Performed By: #### C BC #### [facility] [id number] Ishmael George RBC 5.03 106/ul Normal 4.70-6.10 [facility] Comment on above: Performed By: #### C BC #### [facility] [address] [place], [place] [address] Dr. Ishmael George WBC 10.8 103/ul Normal 4.0-11.0 [facility] [place] Comment on above: Performed By: #### C BC #### [facility] [id number] Ishmael George CT HEAD WO CONon 04-29-2021 CT HEAD WO CON INDICATION: 70 years old; Male. Dizziness. Fall today. Closed head trauma. Nausea. TECHNIQUE: CT Head (ax/cor/sag reformats). Ionizing radiation dose reduced via iterative reconstruction/FBP blend and body size kV/mA adjustment. Comparison: None FINDINGS: POSTOPERATIVE CHANGES: None. BRAIN PARENCHYMA: No hemorrhage, mass or acute infarct. Subtle patchy foci of low-density are seen in the subcortical white matter consistent with small vessel ischemic change. VENTRICLES/EXTRA-AXIA L SPACES: No hydrocephalus. SINUSES/MASTOIDS: No paranasal sinus disease. Mastoid air cells are clear. MSK: No displaced or depressed fractures are noted. There is extracranial soft tissue swelling in the supraorbital soft tissues on the left. OTHER: No hyperdense intraluminal thrombus is appreciated. IMPRESSION: 1. No acute intracranial abnormality. No hemorrhage or mass effect. 2. Subtle small vessel ischemic changes. Electronically authenticated by: KYLE MAX Date: 2021-04-29 04:19 Normal [facility] PROF 14(COMP METB)on 021 Albumin [Mass/Vol] 3.3 g/dL Critically low 3.5-5.0 Th e [facility] Comment on above: Performed By: #### C MP #### [facility] [address] [address] [address] Ishmael George Albumin/Globulin [Mass ratio] 0.7 {ratio} Normal [facility] [place] Comment on above: Performed By: #### C MP #### [facility] [address] [address] [address] Ishmael George ALP [Catalytic activity/Vol] 120 U/L Normal 38-126 [facility] [place] Comment on above: Performed By: #### C MP #### [facility] [address] [address] [address] Ishmael George ALT [Catalytic activity/Vol] 24 U/L Normal 21-72 [facility] [place] Comment on above: Performed By: #### C MP #### [facility] [address] [place] [address] Dr. Ishmael George Anion gap [Moles/Vol] 4.9 mmol/L Normal [facility] [place] Comment on above: Performed By: #### C MP #### [facility] [address] [place] [address] Dr. Ishmael George AST [Catalytic activity/Vol] 21 U/L Normal 17-59 [facility] [place] Comment on above: Performed By: #### C MP #### [facility] [address] [place] [address] Dr. Ishmael George Bilirubin [Mass/Vol] 0.4 mg/dL Normal 0.2-1.3 [facility] Comment on above: Performed By: #### C MP #### [facility] [address] [place] [address] Dr. Ishmael George Calcium [Mass/Vol] 10.0 mg/dL Normal 8.4-10.2 [facility] Comment on above: Performed By: #### C MP #### [facility] [address] [address] [address] Ishmeal George Chloride [Moles/Vol] 93 mmol/L Critically low 98-107 [facility] [place] Comment on above: Performed By: #### C MP #### [facility] [address] [place] [address] Dr. Ishmael George CO2 [Moles/Vol] 39.8 mmol/L Critically high 22.0-30.0 [facility] [place] Comment on above: Performed By: #### C MP #### [facility] [address] [address] [address] Ishmael George Creatinine [Mass/Vol] 0.82 mg/dL Normal 0.66-1.25 [facility] [place] Comment on above: Performed By: #### C MP #### [facility] [address] [address] [address] Ishmael George EGFR-AF BRITISH >60 Normal >=60 [facility] Comment on above: Performed By: #### C MP #### [facility] [address] [address] [address] Ishmael George EGFR-NON AF BRITISH >60 Normal >=60 [facility] [place] Comment on above: Performed By: #### C MP #### [facility] [address] [place] [address] Dr. Ishmael George Globulin (S) [Mass/Vol] 4.9 g/dL Normal [facility] Comment on above: Performed By: #### C MP #### [facility] [address] [address] [address] Ishmael George Glucose [Mass/Vol] 122 mg/dL Critically high 74-106 [facility] Comment on above: Performed By: #### C MP #### [facility] [address] [address] [address] Ishmael George Potassium [Moles/Vol] 4.7 mmol/L Normal 3.4-5.0 [facility] [place] Comment on above: Performed By: #### C MP #### [facility] [address] [address] [address] Ishmael George Protein [Mass/Vol] 8.2 g/dL Normal 6.1-8.2 [facility] Comment on above: Performed By: #### C MP #### [facility] [address] [address] [address] Ishmael George Sodium [Moles/Vol] 133 mmol/L Critically low 137-145 [facility] Comment on above: Performed By: #### C MP #### [facility] [address] [place], [place] [address] Dr. Ishmael George Urea nitrogen [Mass/Vol] 12.0 mg/dL Normal 9.0-20.0 [facility] [place] Comment on above: Performed By: #### C MP #### [facility] [address] [place], [place] [address] Dr. Ishmael George Urea nitrogen/Creatinine [Mass ratio] 14.6 mg/mg Normal [facility] [place] Comment on above: Performed By: #### C MP #### [facility] [address] [place], [place] [address] Dr. Ishmael George Provider Letteron 01-13-2020 Provider Letter January 13, 2020 DAMI ALCALA [facility] [address] [place] [address] DAMI ALCALA 1950 Dear Dami Alcala, This letter is to inform you that you have missed at least two appointments in our office within a twelve-month period which you did not cancel. According to our records those missed appointments were on: 12/18/2019 and 01/13/2020. We make every effort to accommodate patients as quickly as possible. If we know you are not able to make an appointment, we can schedule another patient who needs to see one of our providers. As our previous letter stated, there is a $30.00 charge for a second missed *no show* appointment. This is in accordance with our office policy. If you are unable to keep future appointments, please let us know 24 hours in advance. Sincerely, [facility] [address] [address] [facility] Coding Summary.on 07-15-2019 Coding Summary. CODING DATE: 07/15/2019 FINAL [facility] [place] [facility] STATUS: Home (Routine DC) PAYOR: Medicare APC DESCRIPTION 5341 Abdominal/Peritoneal/ Biliary and Related Procedures ADMIT DX: REASON FOR VISIT DX: K40.90 Unilateral inguinal hernia, without obstruction or gangrene, not specified as recurrent FINAL DX: PRINCIPAL: K40.90 Unilateral inguinal hernia, without obstruction or gangrene, not specified as recurrent SECONDARY: J44.9 Chronic obstructive pulmonary disease, unspecified I10 Essential (primary) hypertension Z99.81 Dependence on supplemental oxygen F17.210 Nicotine dependence, cigarettes, uncomplicated PYMT PROC APC STAT DESCRIPTION DOCTOR NAME DATE 41 J1 Repair initial inguinal Kyle ESPINAL MD 07/12/2019 hernia, age 5 years or older; reducible LT Left side (used to identify procedures performed on the left side of the body) [id number] Transversus abdominis Miles Damon JR, DO 07/12/2019 plane (TAP) block (abdominal plane block, rectus sheath block) unilateral; by injection(s) (includes imaging guidance, when performed) XP Separate practitioner, a service that is distinct because it was performed by a different practitioner [id number] Anesthesia for hernia Miles Damon JR, DO 07/12/2019 repairs in lower abdomen; not otherwise specified NOTE: The code number assigned matches the documented diagnosis and / or procedure in the patient's chart. However, the narrative phrase printed from the coding software may appear abbreviated, or result in slightly different terminology. Revised Coded By: Ghazal [place] Revised Date Saved: 07/15/2019 02:55 pm Normal [facility] Main OR Intraoperative Recor don 07-15-2019 Main OR Intraoperative Record IntraOp Document Type FT Summary Primary Physician: Kyle ESPINAL MD Finalized Date/Time: 07/15/19 13:48:25 Pt. Name: DAMI ALCALA/Sex: 1950 Male Med Rec #: [id number] Physician: Kyle ESPINAL MD Financial #: [id number] Pt. Type: A Room/Bed: AS04 Admit/Disch: 07/12/19 05:53:09 - 07/12/19 14:25:00 Institution: Case Times FT Entry 1 Patient Times In Room 07/12/19 07:43:00 Out Room 07/12/19 09:16:00 Procedure Times Start 07/12/19 08:13:00 Stop 07/12/19 09:12:00 Anesthesia Times Start 07/12/19 07:43:00 Stop 07/12/19 09:16:00 Block Timeout w/ 07/12/19 08:00:00 Anesthesia Last Modified By: Josselyn Giron RN 07/12/19 09:16:11 General Comments: 0802 TAP BLOCK PERFORMED IN OR SUITE BY DR DAMON WITH JONY MA ASSISTING. JONY BRENNER 07/15/2019 Chart opened to review and send charges Cherelle Ng DESIGN TEACHER Case Attendance FT Entry 1 Entry 2 Entry 3 Case Attendee Nelson MEDLEY DO, Miles ESPINAL MD, Kyle Reich RN, CNOR, Peyton Role Performed Anesthesiologist of Surgeon - Primary PULPER TENDER Record Time In 07/12/19 07:43:00 07/12/19 07:43:00 07/12/19 07:43:00 Time Out 07/12/19 09:16:00 07/12/19 09:16:00 07/12/19 09:16:00 Procedure INGUINAL HERNIA REPAIR INGUINAL HERNIA REPAIR INGUINAL HERNIA REPAIR ADULT(Left) ADULT(Left) ADULT(Left) Comments Last Modified By: Bree RN, Josselyn Giron RN, Josselyn Nicole RN 07/12/19 09:16:13 07/12/19 09:16:13 07/12/19 09:16:13 Entry 4 Entry 5 Case Attendee Nita COTO, Josselyn Thomason RN Role Performed Scrub - Primary Interventional Radiology Tech - Primary Time In 07/12/19 07:43:00 07/12/19 07:43:00 Time Out 07/12/19 09:16:00 07/12/19 09:16:00 Procedure INGUINAL HERNIA REPAIR INGUINAL HERNIA REPAIR ADULT(Left) ADULT(Left) Comments STAN BELL SCRUB STUDENT - SCRUBBED IN Last Modified By: Josselyn Giron RN, RN, Kimberly Y 07/12/19 09:16:13 07/12/19 09:16:13 Perioperative Protocols FT Pre-Care Text: Implements protective measures prior to operative or invasive procedure, confirms identity before the operative or invasive procedure, verifies operative procedure, surgical site, and laterality Entry 1 Procedure(s) INGUINAL HERNIA REPAIR Patient Identity Birthday, ID Band ADULT(Left) Verified (select at Check, Patient least 2): Participation Consents / H and P Anesthesia Consent, Operative Site Present Verified HandP, Surgery/Procedure Marking Verified Consent Surgical Site Yes Laterality Verified Yes Verified Procedure Verified Yes Correct Patient Yes Position Verified Availability Equipment, Implant, Prep Dry n/a Verified (If Medication Applicable) PreOp Antibiotic Yes Time Out Miles Damon JR, DO, NILL MD, Rachana York RN, CNOR, Nita Todd CST, Kimberly A, Barbee RN, Kimberly Y Time Out Complete 07/12/19 08:12:00 Outcomes Met? Yes Last Modified By: Josselyn Giron RN 07/12/19 08:12:46 Post-Care Text: The patient is free from signs and symptoms of injury caused by extraneous objects Allergy Information FT Pre-Care Text: Verifies allergies Entry 1 Allergies Reviewed? Yes Allergies Reviewed Self/Patient With Outcomes Met? Yes Last Modified By: Josselyn Giron RN 07/12/19 08:12:58 Post-Care Text: The patient received appropriate medication(s) safely administered during the perioperative period Surgical Procedures FT Entry 1 Procedure Description Procedure INGUINAL HERNIA REPAIR Modifiers Left ADULT Surgeon Description LEFT INGUINAL HERNIA REPAIR W/ MESH Primary Procedure Yes Primary Surgeon Kyle ESPINAL MD Start 07/12/19 08:13:00 Stop 07/12/19 09:12:00 Anesthesia Type General Surgical Service General Wound Class 1 - Clean Last Modified By: Josselyn Giron RN 07/12/19 09:13:02 General Case Data FT Pre-Care Text: Classifies surgical wound, implements aseptic technique, initiates traffic control Entry 1 Case Information OR OR 4 FT Case Level Level 4 Wound Class 1 - Clean Specialty General ASA Class 3 Preop Diagnosis LEFT INGUINAL HERNIA Postop Same As Preop Yes Postop Diagnosis LEFT INGUINAL HERNIA Outcomes Met? Yes Last Modified By: Jillian Ng CST 07/15/19 13:48:20 Post-Care Text: The patient is free from signs and symptoms of infection Skin Assessment (Pre Procedure) FT Pre-Care Text: Implements protective measures to prevent skin/ tissue injury due to thermal or mechanical sources Evaluates for signs and symptoms of physical injury to skin and tissue Entry 1 Skin Integrity Intact, Erhard, Warm, and Skin Abnormality No Dry Outcomes Met? Yes Last Modified By: Josselyn Giron RN 07/12/19 09:18:40 Post-Care Text: The patient is free from signs and symptoms of injury caused by extraneous objects Patient Positioning FT Pre-Care Text: Identifies physical alterations that require additional precautions for procedure-specific positioning, verifies presence of prosthetics or corrective devices, positions the patient, evaluates the patient for signs and symptoms of injury as a result of positioning Entry 1 Procedure INGUINAL HERNIA REPAIR Body Position Supine ADULT(Left) Feet Uncrossed? Yes Left Arm Position Extended on Padded Arm Board Right Arm Position Extended on Padded Arm Left Leg Position Extended Board Right Leg Position Extended Positioning Device Safety Strap, Pillow Under Head Large Press Points Checked Yes By Nelson MEDLEY DO, Rachana Pryor RN, Peyton HAQ Barbee RN, Kimberly Y Outcomes Met? Yes Last Modified By: Josselyn Giron RN 07/12/19 07:34:25 Post-Care Text: The patient is free from signs and symptoms of injury related to positioning Patient Care Devices FT Pre-Care Text: Implements protective measures to prevent skin/ tissue injury due to thermal or mechanical sources Entry 1 Entry 2 Entry 3 Equipment Type CAUTERY UNIT[F] MISTRAL FORCED AIR MONITOR CHARGE SURGERY WARMING SYSTEM UNIT[F] [F] Equipment Number [id number] [id number] OR 4 Equipment Setting 30 CUT/ 30 COAG HIGH/43C Outcomes Met? Yes Yes Yes Last Modified By: Josselyn Giron RN, RN, Kimberly Y Barbee RN, Kimberly Y 07/12/19 07:35:24 07/12/19 07:35:24 07/12/19 07:35:24 Entry 4 Entry 5 Equipment Type VENA FLOW UNIT[F] SONOSITE ULTRASOUND UNIT[F] Equipment Number Equipment Setting Outcomes Met? Yes Yes Last Modified By: Josselyn Giron RN, RN, Kimberly Y 07/12/19 07:35:24 07/12/19 07:35:24 Post-Care Text: The patient is free from signs and symptoms of injury caused by extraneous objects Transport To OR FT Pre-Care Text: Transports according to individual needs. Evaluates for signs and symptoms of skin and tissue injury as a result of transfer or transport Entry 1 Via Cart By Josselyn Giron RN Safety Precautions Side Rails Up Outcomes Met? Yes Last Modified By: Josselyn Giron RN 07/12/19 07:36:19 Post-Care Text: The patient is free from signs and symptoms of injury related to transfer/transport Cautery FT Pre-Care Text: Implements protective measures to prevent injury due to electrical sources, and evaluates for signs and symptoms of electrical injury Entry 1 ESU Identification ESU Type CAUTERY UNIT[F] Equipment Number [id number] ESU Settings Cut 30 Coag 30 ESU Grounding Pad Site Right Thigh Hair Removal Pad No Site Post Pad Site Clear and Intact Grounding Pad Rachana RN, CNOR, Condition Placed By Peyton Outcomes Met? Yes Last Modified By: Josselyn Giron RN 07/12/19 08:15:36 Post-Care Text: The patient if free from signs and symptoms of electrical injury Counts Verification FT Pre-Care Text: Performs required counts Entry 1 Entry 2 Entry 3 Procedure(s) INGUINAL HERNIA REPAIR INGUINAL HERNIA REPAIR INGUINAL HERNIA REPAIR ADULT(Left) ADULT(Left) ADULT(Left) Type Initial Closing Final Items Instruments, Sponges, Instruments, Sponges, Sponges, Sharps Sharps, Other/See Sharps Comments Status Correct Correct Correct Time 07/12/19 07:50:00 07/12/19 09:00:00 07/12/19 09:04:00 By Nita COTO, Josselyn Giron RN, Bree Huddleston RN, Luis F Huddleston Stocker RN, SADAOR, Nita COTO, Josselyn Moya CST, Josselyn Todd Outcomes Met? Yes Yes Yes Last Modified By: Josselyn Giron RN, RN, Kimberly Y Barbee RN, Kimberly Y 07/12/19 08:15:59 07/12/19 09:04:48 07/12/19 09:04:48 Post-Care Text: The patient is free from signs and symptoms of injury caused by extraneous objects Skin Prep FT Pre-Care Text: Performs skin preparations Entry 1 Entry 2 Procedure INGUINAL HERNIA REPAIR INGUINAL HERNIA REPAIR ADULT(Left) ADULT(Left) Prep Area MID ABDOMEN TO UPPER THIGHS Prep Agents Betadine Scrub and Solution Start Dry Time Stop Dry Time Hair Removal Methods Not Indicated Clipper Site PUBIC AREA By Josselyn Giron RN, MD, Michael R Outcomes Met? Yes Yes Last Modified By: Josselyn Giron RN, RN, Kimberly Y 07/12/19 08:16:47 07/12/19 08:16:47 Post-Care Text: The patient is free from signs and symptoms of infection Departure From OR FT Pre-Care Text: Transports according to individual needs. Evaluates for signs and symptoms of skin and tissue injury as a result of transfer or transport. Entry 1 Via Cart Safety Precautions Side Rails Up PostOp Destination PACU Transported By Josselyn Giron RN Patient Status Stable Skin. Condition Other/See Comments Description SKIN CONDITION SAME PREOP Airway Maintenance Oxygen in Use? Yes Airway Device Nasal Cannula Flow Rate 4 L Outcomes Met? Yes Last Modified By: Josselyn Giron RN 07/12/19 10:24:07 Post-Care Text: The patient is free from signs and symptoms of injury related to transfer/transport General Comments: REPORT GIVEN TO PACU NURSE. JONY BRENNER Dressing/Packing FT Pre-Care Text: Administers care to wound sites Entry 1 Type Dressing Items DRESSING GAUZE 4 X 4 2'S [0253][F] Site and Details ABDOMEN - SKIN AFFIX, Outcomes Met? Yes 4X4 AND MEDI TAPE Last Modified By: Josselyn Giron RN 07/12/19 08:30:29 Post-Care Text: The patient is free from signs and symptoms of infection Medication Administration FT Pre-Care Text: Verifies allergies, administers prescribed medications and solutions, administers prescribed antibiotic therapy and immunizing agents as ordered, evaluates response to medications Administers prescribed medications and solutions Entry 1 Route of Admin Field Expiration Date Yes Verified Ordered By Kyle ESPINAL MD Transcribed/To Josselyn Giron RN Field By Administered By Kyle ESPINAL MD Outcomes Met? Yes Last Modified By: Josselyn Giron RN 07/12/19 08:17:43 Post-Care Text: The patient received appropriate medication(s) safely administered during the perioperative period For [place] please see scanned medication reconcilliation form for medications used at the field during the procedure. 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 Yes Last Modified By: Josselyn Giron RN 07/12/19 08:38:22 Post-Care Text: The patient is free from signs and symptoms of injury caused by extraneous objects Cultures and Specimens FT Pre-Care Text: Manages specimen handling and disposition Manages culture specimen collection Entry 1 Cultures Ordered No Specimens Ordered Yes Specimen Disposition Designated OR Area Frozen Section Times Outcomes Met? Yes Last Modified By: Josselyn Giron RN 07/12/19 08:39:12 Post-Care Text: The patient is free from signs and symptoms of injury caused by extraneous objects The patient is free from signs and symptoms of infection General Comments: SPECIMEN ORDERED - HERNIA SAC - INGUINAL - TAKEN TO DESIGNATED OR AREA. JONY BRENNER Temperature Control Entry 1 Temperature Control BLANKET MISTRAL AIR Quantity 1 Aid TORSO [[id number]][F] Fluid/[place] [facility] Mistral warming system Setting HIGH/43C Body Site Upper anterior torso Last Modified By: Josselyn Giron RN 07/12/19 08:18:01 Case Comments Finalized By: Jillian Ng CST Document Signatures Signed By: Josselyn Giron RN 07/12/19 09:19 Josselyn Giron RN 07/12/19 10:24 Jillian Ng CST 07/15/19 13:48 [facility] History and Physicalon 07-12 History and Physical Patient: DAIM ALCALA Age: 69 years Sex: Male : 1950 Associated Diagnoses: None Author: Kyle ESPINAL MD Subjective no changes to H & P [facility] Comment on above: Result Comment: Elec tronically Signed By: Kyle ESPINAL MD\.br\Date and Time Signed: 07/12/19 07:32 EST Inpatient Patient Summaryon 07-12-2019 Inpatient Patient Summary (Inserted Imag e. Unable to display) [address] [address] [facility] Clinical Discharge Instructions PERSON INFORMATION Name: DAMI ALCALA [facility]#:[id number] PHYSICIANS Admitting Physician: Kyle ESPINAL MD Attending Physician: Kyle ESPINAL MD PCP: POLINA QUEZADA MD Discharge Diagnosis: Direct left inguinal hernia Comment: PATIENT EDUCATION INFORMATION Instructions: Post Op Patient Instructions - FT (Custom) Medication Leaflets: Follow up: With: Address: When: Kyle ESPINAL [address] [place] [address] Business (1) Within 7 to 10 days Comments: in the [place] office. MEDICATION LIST New Medications [id number], [address], [place] [id number], [phone] acetaminophen-hydroco done ([place] 325 mg-5 mg oral tablet) 1 Tablets By Mouth every 4 hours as needed for pain. Refills: 0. Medications to Continue with No Changes Other Medications albuterol (albuterol 0.083% Inh Lorena 3 mL) 0.083% - 3mL dosing units Inhalation every 4 hours as needed., COPD aspirin (aspirin 81 mg oral tablet) 1 Tablets By Mouth every day. fluticasone/umeclidin ium/vilanterol (Trelegy Ellipta inhalation powder) 1 Puffs Inhalation every day. metoprolol (Metoprolol tartrate 25 mg Tab) 1 Tablets By Mouth 2 times a day. multivitamin with minerals (Multivitamin, Therapeutic w/ Minerals) 1 Tablets By Mouth every day. Oxygen (Oxygen - for Home) 2 Liter/minute Nasal Cannula every day as needed Shortness of breath or wheezing. Oxygen - Continuous or Nocturnal Diagnosis: Portable 02 for physician visits, oxygen conservation. Comment: [facility] Main OR PACU I Recordon Main OR PACU I Record PACU Phase I Docum ent Type FT Summary Primary Physician: Kyle ESPINAL MD Finalized Date/Time: 07/12/19 09:57:37 Pt. Name: DAMI ALCALA /Sex: 1950 Male Med Rec #: [id number] Physician: Kyle ESPINAL MD Financial #: [id number] Pt. Type: A Room/Bed: [place] [address] Admit/Disch: 07/12/19 05:53:09 - Institution: Case Times PACU I FT Pre-Care Text: Identifies barriers to communication and implements measures to provide psychological support Develops individualized plan of care, and ensures continuity of care Maintains patient's dignity and privacy, and maintains patient confidentiality Identifies and reports philosophical, cultural, and spiritual beliefs and values Identifies individual values and wishes concerning care Implements aseptic technique, and administers prescribed antibiotic therapy and immunizing agents as ordered Evaluates postoperative tissue perfusion Implements thermoregulation measures, and monitors body temperature Evaluates postoperative respiratory status Evaluates postoperative cardiac status Evaluates postoperative neurological status Assesses pain control, collaborated in initiating patient-controlled analgesia and implements alternative methods of pain control Verifies allergies, administers prescribed medications and solutions, evaluates response to medications Entry 1 In PACU I 07/12/19 09:17:00 Discharge from PACU 07/12/19 09:47:00 I Outcomes Met? Yes Last Modified By: Keara Lund RN 07/12/19 09:57:07 Post-Care Text: The patient demonstrates knowledge of the expected response to the operative or invasive procedure The patient's care is consistent with the individualized perioperative plan of care The patient's right to privacy is maintained The patient's value system, lifestyle, ethnicity, and culture are considered, respected, and incorporated into the perioperative plan of care The patient participates in decisions affecting his or her perioperative plan of care The patient is free from signs and symptoms of infection The patient has wound/tissue perfusion consistent with or improved from baseline levels established preoperatively The patient is at or returning to normothermia at the conclusion of the immediate postoperative period The patient's respiratory function is consistent with or improved from baseline levels established preoperatively The patient's cardiovascular status is consistent with or improved from baseline levels established preoperatively The patient's cardiovascular status is consistent with or improved from baseline levels established preoperatively The patient demonstrates and/or reports adequate pain control throughout the perioperative period The patient received appropriate medication(s), safely administered during the perioperative period Acuity Level PACU I FT Entry 1 Start Time 07/12/19 09:17:00 Stop Time 07/12/19 09:47:00 Acuity Level Acuity Level I Last Modified By: Keara Lund RN 07/12/19 09:57:36 Finalized By: Keara Lund RN Document Signatures Signed By: Keara Lund RN 07/12/19 09:57 [facility] Main OR Preoperative Recordo n 07-12-2019 Main OR Preoperative Record PreOp Document Type FT Summary Primary Physician: Kyle ESPINAL MD Finalized Date/Time: 07/12/19 08:03:21 Pt. Name: DAMI ALCALA Cherelle Christopher/Sex: 1950 Male Med Rec #: [id number] Physician: Kyle ESPINAL MD Financial #: [id number] Pt. Type: A Room/Bed: 09/03 Admit/Disch: 07/12/19 05:53:09 - Institution: Case Times PreOp FT Pre-Care Text: Verifies consent for planned procedure, identifies individual values and wishes concerning care, includes family members in perioperative teaching Entry 1 Patient Times. In Pre Surgery 07/12/19 05:50:00 Out Pre Surgery 07/12/19 07:41:00 Outcomes Met? Yes Last Modified By: Josselyn Giron RN 07/12/19 08:03:17 Post-Care Text: The patient participates in decisions affecting his or her perioperative plan of care Finalized By: Josselyn Giron RN Document Signatures Signed By: Josselyn Giron RN 07/12/19 08:03 [facility] Operative Reporton 0 Operative Report Date of Surgery: 07/12/2019 SURGEON: Kyle Espinal M.D. PREOPERATIVE DIAGNOSIS: Enlarging symptomatic left inguinal hernia POSTOPERATIVE DIAGNOSIS: Enlarging symptomatic left inguinal hernia with direct left inguinal hernia OPERATION: Left inguinal herniorrhaphy with extra large ProLoop plug x2 and patch ANESTHESIA: General endotracheal ESTIMATED BLOOD LOSS: Less than 5 mL INDICATIONS AND CONSENT: The patient is a 69-year-old male with a history of enlarging symptomatic left inguinal hernia. He has chronic obstructive pulmonary disease and requires continuous oxygen therapy. The indications, risks, benefits, alternatives of proceeding with herniorrhaphy were explained extensively to the patient including the risks of bleeding, infection, scarring, pain, recurrence, nerve injury, testicular injury, blood clot, pulmonary embolus, heart attack, anesthetic complications, need for further surgery or mesh removal. All of his questions were answered. Informed consent was obtained. PROCEDURE: The patient was brought to the Operating Room and placed in the supine position. General anesthesia was induced. A TAP block was performed on the left per Dr. Damon. The patient was prepped and draped in the usual sterile fashion. A left groin incision was made in the area of the skin crease and carried down through subcutaneous tissue using electrocautery. Juany's fascia was divided. The external oblique was opened along the direction of its fibers down through the external inguinal ring. Cord structures were mobilized and retracted with a Esther drain. There was noted to be a large direct hernia sac that was freed up. The sac was excised. Preperitoneal fat was reduced. Two extra large ProLoop plugs were then inserted and secured using 3-0 Vicryl sutures. The wound was irrigated. There was good hemostasis. The patch was placed on the floor of the inguinal canal and secured circumferentially using interrupted 2-0 Prolene sutures. The arms were placed around the cord structures and secured. Care was taken to avoid undue tension on the cord structures. The wound was irrigated with antibiotic saline. There was good hemostasis. External oblique was closed with a running 3-0 Vicryl suture. The subcutaneous tissues were infiltrated with the remaining Exparel solution. Juany's fascia was reapproximated with interrupted 3-0 Monocryl sutures. The skin was then closed with a running 4-0 subcuticular Monocryl suture and skin glue. Sterile pressure dressing was applied. Sponge and needle counts were correct x2 per nursing personnel. The patient tolerated the procedure well, was extubated and sent to Recovery Room in good condition. Kyle Espinal M.D. gls Dictated: 07/12/2019 #[id number] Typed: 07/12/2019 #[id number] cc: Harrison Sow M.D. [facility] Comment on above: Result Comment: Elec tronically Signed By: TEDDY SILVA, Kyle Rosariobr\Date and Time Signed: 07/12/19 13:03 EST Operative Report Date of Surgery: 07/12/2019 SURGEON: Miles Damon Jr., D.O. PREOPERATIVE DIAGNOSIS: Control of postoperative pain POSTOPERATIVE DIAGNOSIS: Control of postoperative pain OPERATION: Left transversus abdominis plane (TAP) block utilizing ultrasound guidance ANESTHESIA: None PROCEDURE: The patient was interviewed and examined. The anesthesia options were discussed including a TAP block for postoperative analgesia. The discussion included the procedure, risks, benefits, and alternatives to the procedure. The patient's questions were all answered and the patient elected to proceed with the TAP block for postoperative pain relief. After the patient underwent general anesthesia the appropriate lateral abdominal wall was prepped and draped in a sterile fashion using ChloraPrep. Then with ultrasound guidance using a 21 gauge 100 mm Pajunk needle the transversus abdominis plane was located. A total volume of bupivacaine 0.15% containing 213 mg of Exparel, total volume of 40 mL was injected after multiple attempts at aspiration. Surgery then proceeded under general anesthesia. Miles Damon Jr., Trent gls Dictated: 07/12/2019 #[id number] Typed: 07/12/2019 #[id number] cc: Miles Damon Jr., D.O. [facility] Comment on above: Result Comment: Elec tronically Signed By: Miles Damon JR, DO\.br\Date and Time Signed: 07/12/19 10:11 EST Patient Education - Texton 0 07-12-2019 Patient Education - Text (Inserted Image . Unable to display) [facility] Progress Note-Physicianon Progress Note-Physician Patient: DAMI ALCALA Age: 69 years Sex: Male : 1950 Associated Diagnoses: None Author: Miles Damon JR, DO Preoperative Information Anesthesia history: Patient History: Pt./ family denies any personal or family hx of problems/difficulties with anesthesia.. Re-eval prior to induction: Inital eval reviewed: No significant interval change, NPO 10 hours.. Review of Systems Constitutional: See nursing assessment.. Cardiovascular: Cardiac risk assessment performed. Pt. denies any significant change in their cv hx.. Respiratory: Pt. denies any signicant change in their respiratory status.. Neurologic: Pt. denies any acute neurological changes.. Health Status Allergies: Allergic Reactions (Selected) No Known Allergies No Known Medication Allergies, Allergies (2) Active Reaction No Known Allergies None Documented No Known Medication Allergies None Documented Current medications: (Selected) Inpatient Medications Ordered D5LR 1000 mL Soln-IV 1,000 mL: 1,000 mL, IV, 150 mL/hr, Routine, Start date 07/12/19 6:00:00 EST, 6.7 hour(s), Total volume (mL): 1,000, 2.05, m2 Documented Medications Documented Metoprolol tartrate 25 mg Tab: 25 mg = 1 tab(s), Oral, BID, High blood pressure Multivitamin, Therapeutic w/ Minerals: 1 tab(s), Oral, Daily, Refill(s) 0, Prophylaxis Oxygen - for Home: 2 L/min, Nasal Cannula, Daily Shortness of breath or wheezing, Refill(s) 0, Oxygen - Continuous or Nocturnal Diagnosis: Portable 02 for physician visits, oxygen conservation, COPD Trelegy Ellipta inhalation powder: = 1 puff(s), Inhalation, Daily, COPD albuterol 0.083% Inh Lorena 3 mL: 0.083% - 3mL dosing units, Inhalation, q4hr, Shortness of breath or wheezing aspirin 81 mg oral tablet: 81 mg = 1 tab(s), Oral, Daily, Prophylaxis, Medications (1) Active Scheduled: (0) Continuous: (1) Dextrose 5% in Lactated Ringers 1,000 mL 1,000 mL, IV, 150 mL/hr PRN: (0) Problem list: All Problems Hypertension / SNOMED CT 4780974778 / Confirmed Smoker / SNOMED CT 023686740 / Confirmed Added secondary to documentation in Social History. Tobacco abuse / SNOMED CT 072739100 / Confirmed COPD with hypoxia / SNOMED CT 10845513 / Confirmed Requires oxygen therapy / SNOMED CT 8018266735 / Confirmed Left inguinal hernia / SNOMED CT 680611230 / Confirmed Dyspnea on exertion / SNOMED CT 679354992 / Confirmed, Active Problems (7) COPD with hypoxia Dyspnea on exertion Hypertension Left inguinal hernia Requires oxygen therapy Smoker Tobacco abuse Histories Past Medical History: No active or resolved past medical history items have been selected or recorded. Family History: Cancer of liver Father Procedure history: Tear of biceps tendon (9437211703). Bilateral vasectomy (940143437). Social History Social & Psychosocial Habits Alcohol 06/19/2019 Risk Assessment: Denies Alcohol Use Substance Abuse 07/02/2019 Risk Assessment: Denies Substance Abuse Tobacco 06/19/2019 Tobacco Use: 10 or more cigarettes (1/ Smokeless tobacco use: Never Previous treatment: Counseling 07/02/2019 Risk Assessment: High Risk . Physical Examination Vital Signs (last 24 hrs) Last Charted Temp Oral 36.4 DegC (JUL 12 06:16) Heart Rate Apical 88 bpm (JUL 12:19) Resp Rate 20 br/min (JUL 12:16) SBP 125 mmHg (JUL 12:) DBP 61 mmHg (JUL 12:) SpO2 94 % (JUL 12:) Airway: Normal oral/pharyngeal anatomy.. Respiratory: Adequate air exchange.. Cardiovascular: Adequate perfusion and function. Review / Management Results review: No qualifying data available . Plan [place] [employer]esthesi[employer] (ASA) physical status classification: Class III. Anesthetic Preoperative Plan Anesthesia: General. , Regional LEFT TAP BLOCK. Anesthetic plan, risks, benefits, and alternatives discussed with the patient and/or family. Pt. and/or family present and agree to proceed as planned.. Discussed the importance of abstaining from tobacco products, and offered counseling if desired. [facility] Comment on above: Result Comment: Elec tronically Signed By: Miles Damon JR, DO\.br\Date and Time Signed: 07/12/19 08:41 EST Coding Summary.on 07-03-2019 Coding Summary. CODING DATE: 07/03/2019 FINAL [facility] STATUS: Home (Routine DC) PAYOR: Medicare APC DESCRIPTION 5521 Level 1 Imaging without Contrast ADMIT DX: REASON FOR VISIT DX: Z01.818 Encounter for other preprocedural examination FINAL DX: PRINCIPAL: Z01.818 Encounter for other preprocedural examination SECONDARY: PYMT PROC APC STAT DESCRIPTION DOCTOR NAME DATE NOTE: The code number assigned matches the documented diagnosis and / or procedure in the patient's chart. However, the narrative phrase printed from the coding software may appear abbreviated, or result in slightly different terminology. Coded By: Carito Lomas CphT Date Saved: 07/03/2019 12:32 pm [facility] XR Chest 2 Viewson 0 XR Chest 2 Views Exam Date/Time: 07/02/2019 16:38 EST Reason for Exam: Pre Op Report IMPRESSION: THE HYPERINFLATION OF THE LUNGS SUGGESTS COPD. NO EVIDENCE OF ACUTE CHEST PATHOLOGY. CLINICAL HISTORY: Pre Op. Smoker. COMMENT: The heart is normal in size. The mediastinum is unremarkable. There are a few small granulomatous calcifications on the left. The lungs are hyperinflated. There are streaky densities at the lung bases, suggesting atelectasis or fibrosis. No consolidated airspace opacification nor pleural effusion is evident. Of incidental note, there are metallic anchor screws in the proximal shaft of the right humerus. There are relatively mild hypertrophic degenerative changes at the shoulders. FINAL REPORT Dictated: 07/03/2019 7:32 am Sherman Medina M.D. Signed (Electronic Signature): 07/03/2019 7:32 am Signed by: Sherman Medina M.D. Transcribed by: MARIETTA Technologist: NOEMI [facility] BUNon 07-02-2019 Urea nitrogen [Mass/Vol] 12 mg/dL Normal 5-21 [facility] Comment on above: Performed By: #### 2 656655, 3103564, 43764687, 6776504, 3270764, 2695594 #### [facility] [address] [place] [address] CBC w/Indiceson 07-02-2019 Erythrocyte distribution width (RBC) [Ratio] 20.6 % High 10.9-14.2 [facility] Comment on above: Performed By: #### 2 536595, 6444000, 21934208, 2767251, 8854462, 1203061 #### [facility] [address] [place] [address] Hematocrit (Bld) [Volume fraction] 35.6 % Low 37.7-49.0 [facility] Comment on above: Performed By: #### 2 969351, 8384272, 03628128, 1338003, 7644728, 4986826 #### [facility] [address] [place] [address] Hemoglobin (Bld) [Mass/Vol] 10.5 g/dL Low 13.5-17.5 [facility] Comment on above: Performed By: #### 2 166846, 4224829, 29792345, 5158046, 8791006, 6598481 #### [facility] [address] [place] [address] MCH (RBC) [Entitic mass] 20.2 pg Low 27.0-34.0 [facility] Comment on above: Performed By: #### 2 586181, 5924292, 80353003, 4293610, 2073225, 6643913 #### [facility] [address] [place] [address] MCHC (RBC) [Mass/Vol] 29.4 g/dL Low 31.4-36.0 [facility] Comment on above: Performed By: #### 2 906453, 6417317, 39594145, 7196716, 2080793, 7763468 #### [facility] [address] [place] [address] MCV (RBC) [Entitic vol] 68.7 fL Low 80.0-100.0 [facility] Comment on above: Performed By: #### 2 478106, 7044948, 98490605, 1613612, 8672304, 5449091 #### [facility] [address] [place] [address] Platelet mean volume (Bld) [Entitic vol] 9.3 fL Normal 6.4-10.8 [facility] Comment on above: Performed By: #### 2 517586, 7812570, 08583875, 8026998, 7012506, 2262555 #### [facility] [address] [place] [address] Platelets (Bld) [#/Vol] 353.0 E9/L Normal 150.0-500.0 [facility] Comment on above: Performed By: #### 2 905478, 2914634, 73692633, 2060404, 6428732, 8280679 #### [facility] [address] [place] [address] RBC (Bld) [#/Vol] 5.2 E12/L Normal 4.3-5.9 [facility] Comment on above: Performed By: #### 2 207194, 4848296, 92567610, 3659980, 6257514, 6591739 #### [facility] [address] [place] [address] WBC corrected for nucl RBC Auto (Bld) [#/Vol] 12.0 E9/L High 4.0-11.0 [facility] Comment on above: Performed By: #### 2 720787, 4414550, 40980437, 2955916, 1552151, 8269055 #### [facility] [address] [place] [address] Creatinineon 07-02-2019 Creatinine [Mass/Vol] 0.7 mg/dL Normal 0.5-1.3 [facility] Comment on above: Performed By: #### 2 697148, 0879287, 79548948, 2078411, 1267137, 6720814 #### [facility] [address] [place] [address] Glucoseon 07-02-2019 Glucose [Mass/Vol] 94 mg/dL Normal 55-199 [facility] Comment on above: Performed By: #### 2 051160, 6872656, 55562687, 5363748, 4381995, 6214468 #### [facility] [address] [place] [address] Lyteson 07-02-2019 Anion gap [Moles/Vol] 11 mmol/L Normal 6-16 [facility] Comment on above: Performed By: #### 2 342178, 3141692, 50792086, 9121765, 1259407, 3986745 #### [facility] [address] [place] [address] Chloride [Moles/Vol] 94 mmol/L Low 101-111 [facility] Comment on above: Performed By: #### 2 675076, 3332442, 40200504, 5718516, 8894281, 0834616 #### [facility] [address] [place] [address] CO2 [Moles/Vol] 33 mmol/L High 21-31 [facility] Comment on above: Performed By: #### 2 668566, 6542945, 13703151, 2194960, 3284028, 1239816 #### [facility] [address] [place] [address] Potassium [Moles/Vol] 4.2 mmol/L Normal 3.5-5.3 [facility] Comment on above: Performed By: #### 2 377917, 7457379, 48588573, 9554200, 1028002, 6709723 #### [facility] [address] [place] [address] Sodium [Moles/Vol] 134 mmol/L Low 135-145 [facility] Comment on above: Performed By: #### 2 921414, 3491879, 74642220, 8777375, 8707156, 3014301 #### [facility] [address] [place] [address] eGFRon 07-02-2019 GFR/1.73 sq M predicted among blacks MDRD (S/P/Bld) [Vol rate/Area] mL/min/{1.73_m2} Normal >=59 [facility] Comment on above: Order Comment: Order added by Discern Expert. Result Comment: eGFR is race adjusted. AA=. Performed By: #### 2 367371, 7757265, 68041569, 6727764, 2274522, 6723893 #### [facility] [address] [place] [address] GFR/1.73 sq M predicted among non-blacks MDRD (S/P/Bld) [Vol rate/Area] mL/min/{1.73_m2} Normal >=59 [facility] Comment on above: Order Comment: Order added by Discern Expert. Result Comment: Marinator abraham kidney disease could be indicated at eGFR's of less than 60 mL/min/1.73m2. Kidney failure is indicated at less than 15 mL/min/1.73m2. Performed By: #### 2 855045, 4583366, 62852507, 8151911, 6390814, 7332206 #### [facility] [address] [place] [address] BASIC METABOLIC PANELon 12-2 Calcium mass conc 8.7 mg/dL Normal 8.6-10.3 [facility] Comment on above: Order Comment: No: D o not add to previous draw Performed By: #### 0 0121, 86145, 90278, 70071, 00101, 90349, 71901 ####[facility] [place] [address], [facility] Chloride molar conc 94 mmol/L Low 98-107 [facility] Comment on above: Order Comment: No: D o not add to previous draw Performed By: #### 0 0121, 78195, 02549, 01243, 22467, 69862, 01787 ####[facility] [place] [address], [facility] CO2 molar conc 36 mmol/L High 21-31 [facility] Comment on above: Order Comment: No: D o not add to previous draw Performed By: #### 0 0121, 95123, 89350, 18808, 94309, 36043, 13661 ####[facility] [place] [address], [place] Creatinine mass conc 0.50 mg/dL Low 0.70-1.30 [facility] Comment on above: Order Comment: No: D o not add to previous draw Performed By: #### 0 0121, 80537, 24568, 65110, 36951, 97697, 85310 ####[facility] [place] [address], [facility] GFR/1.73 sq M predicted among blacks MDRD vol rate/area (S/P/Bld) mL/min/{1.73_m2} Normal >60 [facility] Comment on above: Order Comment: No: D o not add to previous draw Performed By: #### 0 0121, 09282, 21633, 88313, 00324, 03370, 79503 ####[facility] [facility] [place] [address], [facility] GFR/1.73 sq M predicted among non-blacks MDRD vol rate/area (S/P/Bld) mL/min/{1.73_m2} Normal >60 [facility] Comment on above: Order Comment: No: D o not add to previous draw Performed By: #### 0 0121, 80772, 69197, 10273, 73679, 19180, 59860 ####[facility] [facility] [place] [address], [facility] Glucose mass conc 121 mg/dL High 70-100 [facility] Comment on above: Order Comment: No: D o not add to previous draw Performed By: #### 0 0121, 07909, 98404, 84613, 27374, 18745, 15314 ####[facility] [facility] [place] [address], [facility] [place] Potassium molar conc 4.3 mmol/L Normal 3.5-5.1 [facility] Comment on above: Order Comment: No: D o not add to previous draw Performed By: #### 0 0121, 01086, 11287, 29979, 15235, 07247, 82320 ####[facility] [place] [address], [facility] Sodium molar conc 132 mmol/L Low 136-145 [facility] Comment on above: Order Comment: No: D o not add to previous draw Performed By: #### 0 0121, 60321, 25035, 04224, 92188, 30801, 35637 ####[facility] [address] Urea nitrogen mass conc 7 mg/dL Normal 7-25 [facility] Comment on above: Order Comment: No: D o not add to previous draw Performed By: #### 0 0121, 32414, 68709, 01551, 90725, 91649, 21094 ####[facility] [address] CBC COMPLETE BLOOD COUNTon 1 07-25-2017 Erythrocyte distribution width Auto Ratio (RBC) 23.4 % High 11.5-15.0 [facility] Comment on above: Order Comment: No: D o not add to previous draw Performed By: #### 0 0121, 34483, 74978, 22694, 52067, 14534, 38744 ####[facility] [address] Hematocrit Auto Volume Fraction (Bld) 31.4 % Low 39.0-50.0 [facility] Comment on above: Order Comment: No: D o not add to previous draw Performed By: #### 0 0121, 54406, 70704, 25941, 48091, 94839, 95284 ####[facility] Hemoglobin mass conc (Bld) 8.4 g/dL Low 13.0-17.0 [facility] Comment on above: Order Comment: No: D o not add to previous draw Performed By: #### 0 0121, 34774, 48505, 56928, 81062, 31736, 87622 ####[facility] [address] IMM PLATELET FRAC 7.9 % High 0.8-6.3 [facility] Comment on above: Order Comment: No: D o not add to previous draw Performed By: #### 0 0121, 39373, 84189, 43922, 98492, 92093, 36436 ####[facility] MCH Auto Entitic mass (RBC) 19.2 pg Low 27.0-33.0 [facility] Comment on above: Order Comment: No: D o not add to previous draw Performed By: #### 0 0121, 62383, 04642, 85274, 41898, 56649, 13377 ####[facility] MCHC Auto mass conc (RBC) 26.8 g/dL Low 32.0-35.0 [facility] Comment on above: Order Comment: No: D o not add to previous draw Performed By: #### 0 0121, 16921, 22243, 83585, 68448, 02884, 35656 ####[facility] MCV Auto Entitic volume (RBC) 71.9 fL Low 82.0-98.0 [facility] Comment on above: Order Comment: No: D o not add to previous draw Performed By: #### 0 0121, 55883, 32317, 87085, 34630, 18373, 25005 ####[facility].[address] Nucleated RBC/100 WBC Ratio (Bld) 0 % Normal 0-0 [facility] Comment on above: Order Comment: No: D o not add to previous draw Performed By: #### 0 0121, 50745, 74088, 60722, 75246, 79447, 28697 ####[facility] PLAT CNT 229 10*3/uL Normal 150-400 [facility] Comment on above: Order Comment: No: D o not add to previous draw Performed By: #### 0 0121, 27765, 12603, 27604, 01279, 30143, 17606 ####[facility] RBC Auto #/vol (Bld) 4.37 10*6/uL Normal 4.20-5.70 [facility] Comment on above: Order Comment: No: D o not add to previous draw Performed By: #### 0 0121, 57964, 21151, 82021, 12470, 80444, 01550 ####[facility].[address] WBC Auto #/vol (Bld) 6.83 10*3/uL Normal 4.00-10.60 [facility] Comment on above: Order Comment: No: D o not add to previous draw Performed By: #### 0 0121, 48313, 03140, 46236, 28982, 11989, 39264 ####[address] BASIC METABOLIC PANELon 12-1 Calcium mass conc 8.6 mg/dL Normal 8.6-10.3 [facility] Comment on above: Order Comment: No: D o not add to previous draw Performed By: #### 0 0121, 74068, 24508, 25856, 81201, 44953, 89942 ####[place] [address] [address] Chloride molar conc 94 mmol/L Low 98-107 [facility] Comment on above: Order Comment: No: D o not add to previous draw Performed By: #### 0 0121, 63926, 65016, 98345, 44952, 66842, 73747 ####[facility] CO2 molar conc 38 mmol/L High 21-31 [facility] Comment on above: Order Comment: No: D o not add to previous draw Performed By: #### 0 0121, 25762, 09630, 43818, 15572, 28466, 08989 ####[facility] [place] [address], [facility] Creatinine mass conc 0.49 mg/dL Low 0.70-1.30 [facility] Comment on above: Order Comment: No: D o not add to previous draw Performed By: #### 0 0121, 41294, 57381, 95124, 53435, 48782, 66887 ####[facility] [place] [address], [facility] GFR/1.73 sq M predicted among blacks MDRD vol rate/area (S/P/Bld) mL/min/{1.73_m2} Normal >60 [facility] Comment on above: Order Comment: No: D o not add to previous draw Performed By: #### 0 0121, 21433, 06680, 70326, 94296, 19406, 70877 ####[facility] [place] [address], [facility] GFR/1.73 sq M predicted among non-blacks MDRD vol rate/area (S/P/Bld) mL/min/{1.73_m2} Normal >60 [facility] Comment on above: Order Comment: No: D o not add to previous draw Performed By: #### 0 0121, 65088, 03005, 25583, 90088, 94047, 62195 ####[facility] [place] [address], [facility] Glucose mass conc 79 mg/dL Normal 70-100 [facility] Comment on above: Order Comment: No: D o not add to previous draw Performed By: #### 0 0121, 98568, 43569, 40355, 72648, 73721, 03791 ####[facility] [place] [address], [facility] Potassium molar conc 4.2 mmol/L Normal 3.5-5.1 [facility] Comment on above: Order Comment: No: D o not add to previous draw Performed By: #### 0 0121, 03589, 96072, 85922, 71117, 84010, 71491 ####[facility] Sodium molar conc 135 mmol/L Low 136-145 [facility] Comment on above: Order Comment: No: D o not add to previous draw Performed By: #### 0 0121, 46712, 92858, 48065, 41346, 10875, 88987 ####[facility] Urea nitrogen mass conc 7 mg/dL Normal 7-25 T [facility] Comment on above: Order Comment: No: D o not add to previous draw Performed By: #### 0 0121, 85033, 43518, 17282, 08420, 16207, 18906 ####[facility].[address] CBC COMPLETE BLOOD COUNTon 1 07-24-2017 Erythrocyte distribution width Auto Ratio (RBC) 23.3 % High 11.5-15.0 [facility] Comment on above: Order Comment: No: D o not add to previous draw Performed By: #### 0 0121, 04498, 92247, 60831, 39120, 49712, 67080 ####[facility].[address] Hematocrit Auto Volume Fraction (Bld) 33.8 % Low 39.0-50.0 [facility] Comment on above: Order Comment: No: D o not add to previous draw Performed By: #### 0 0121, 12371, 55404, 90439, 35112, 44766, 79532 ####[facility] Hemoglobin mass conc (Bld) 8.9 g/dL Low 13.0-17.0 [facility] Comment on above: Order Comment: No: D o not add to previous draw Performed By: #### 0 0121, 84052, 62597, 05987, 47253, 32357, 35407 ####[facility] IMM PLATELET FRAC 8.8 % High 0.8-6.3 [facility] Comment on above: Order Comment: No: D o not add to previous draw Performed By: #### 0 0121, 92173, 21639, 38029, 99356, 07473, 98603 ####[facility] MCH Auto Entitic mass (RBC) 19.3 pg Low 27.0-33.0 [facility] Comment on above: Order Comment: No: D o not add to previous draw Performed By: #### 0 0121, 49669, 11627, 29401, 82264, 21584, 66731 ####[facility] MCHC Auto mass conc (RBC) 26.3 g/dL Low 32.0-35.0 [facility] Comment on above: Order Comment: No: D o not add to previous draw Performed By: #### 0 0121, 57593, 17453, 65216, 81969, 67446, 93217 ####[facility] MCV Auto Entitic volume (RBC) 73.2 fL Low 82.0-98.0 [facility] Comment on above: Order Comment: No: D o not add to previous draw Performed By: #### 0 0121, 79953, 47774, 77245, 27145, 05972, 60684 ####[facility] Nucleated RBC/100 WBC Ratio (Bld) 0 % Normal 0-0 [facility] Comment on above: Order Comment: No: D o not add to previous draw Performed By: #### 0 0121, 39104, 37096, 46788, 41092, 56737, 59064 ####[facility].[address] PLAT CNT 230 10*3/uL Normal 150-400 [facility] Comment on above: Order Comment: No: D o not add to previous draw Performed By: #### 0 0121, 98983, 41653, 21756, 56609, 07722, 81757 ####[facility] RBC Auto #/vol (Bld) 4.62 10*6/uL Normal 4.20-5.70 [facility] Comment on above: Order Comment: No: D o not add to previous draw Performed By: #### 0 0121, 23850, 26974, 30822, 83132, 91833, 41635 ####[facility] WBC Auto #/vol (Bld) 5.41 10*3/uL Normal 4.00-10.60 [facility] Comment on above: Order Comment: No: D o not add to previous draw Performed By: #### 0 0121, 28556, 14238, 75206, 68690, 57102, 29541 ####[facility] Cardiovascular Lab Reporton 05-23-2018 Cardiovascular Lab Report [facility] MR #: [id number] of Physician: Brandy Castle M.D.Division of Service Date: 05/22/2018Cardiology Birthdate: [birth year]Adult Cardiovascular Room #: 3AB [id number] [place], [place] [address]Phone Fax Cardiovascular Laboratory ReportFINAL IMPRESSIONS:1. Moderately elevated right-sided heart pressures.2. Normal pulmonary capillary wedge pressures.3. Mildly elevated transpulmonary gradient, which would suggest pulmonary arterial hypertension.4. Normal cardiac output/cardiac index.5. No evidence of significant oxygen step-up with a normal Qp/Qs.RECOMMENDATIONS /PLAN:1. Consider etiologies for the patient's pulmonary hypertension and abnormal echocardiogram, mainly pulmonary.2. Aggressive cardiovascular risk factor modification.3. Optimization of medical management.4. Further recommendations deferred to the Inpatient Services.PROCEDURES: Ultrasound-guided access of the right internal jugular vein,right heart catheterization, comprehensive oximetry run.METHODS: After risks, benefits, and alternatives were explained, writteninformed consent was obtained. The patient was prepped and draped in theusual sterile fashion over the right neck. Using 1% lidocaine solution,local infiltration anesthesia was achieved. Using modified Seldingertechnique, a micropuncture kit, and on the ultrasound guidance access ofright internal jugular vein was obtained. A 6-Urdu 11 cm sheath wasinserted without difficulty.Right heart catheterization was performed using a Luque catheter via thevenous sheath. Pressures were measured in right atrium, right ventricle,pulmonary artery, and pulmonary capillary wedge positions. Oxygensaturations were obtained and a cardiac output/cardiac index was calculatedusing the Clem principle.Oxygen saturations were obtained during the right heart catheterizationfrom the pulmonary artery, pulmonary capillary wedge, right ventricle, andright atrial positions. A Qp/Qs was calculated. After reviewing all thehemodynamic data, it was elected to conclude the procedure.The Luque catheter was removed. The jugular sheath was removed withapplication of manual pressure to achieve optimal hemostasis. Overall, thepatient tolerated the procedure well. There were no overt complications.He was to be transferred to the holding area in stable condition.FINDINGS:He modynamics:RA 10.RV 47/6, 9.PA 47/17 (29).PCWP 10.AO 88/56.Cardiac output 8.44/cardiac index 4.18.Oxygen saturations:RA 69RV 70PA 71.4PCWP 96.7AO 96Qp/Qs of 1.00.INDICATIONS: Abnormal echocardiogram, right-sided chamber enlargement, andpulmonary hypertension.Callum mccarthy Signed by:Carlyn Ngo M.D. 05/31/2018 12:44 P Gordon Ngo M.D.Date Dict: 05/22/2018/03:27 Toño Ngo M.D.Date Trans: 05/23/2018 01:55 A/KristaN_JN:[id number] 68cc: Polina Webber M.D. [address] [place] [id number] Sp Berry M.D. [facility]5 [facility] [address] Normal [facility] MAGNESIUM BLOODon 05-23-2018 Magnesium mass conc 1.9 mg/dL Normal 1.9-2.7 [facility] Comment on above: Order Comment: No: D o not add to previous draw Performed By: #### 0 0121, 34107, 88437, 90164, 38468, 29888, 46489 ####[facility] PROTHROMBIN TIMEon 8 INR Coag RelTime (PPP) 1.52 {INR} High 0.91-1.16 [facility] Comment on above: Order Comment: No: D o not add to previous draw Result Comment: ACCC P RECOMMENDED INR FOR WARFARIN THERAPY CONDITION INRPROPHYLAXIS OF VENOUS THROMBOSIS 2-3(HIGH-RISK SURGERY)TREATMENT OF VENOUS THROMBOSIS 2-3TREATMENT OF PULMONARY EMBOLISM 2-3PREVENTION OF SYSTEMIC EMBOLISM: 2-3 ACUTE MYOCARDIAL INFARCTION TISSUE HEART VALVES VALVULAR HEART DISEASE ATRIAL FIBRILLATION RECURRENT SYSTEMIC EMBOLISMMECHANICAL HEART VALVE 2.5-3.5 FROM : ORAL ANTICOAGULANTS. MECHANISM OF ACTION, CLINICALEFFECTIVENESS, AND OPTIMAL THERAPEUTIC RANGE. [id number];108:231S-246S. Performed By: #### 0 0121, 76977, 11946, 52101, 86248, 42984, 30278 ####[facility] Prothrombin time (PT) Coag time (PPP) 18.4 s High 12.3-14.8 [facility] Comment on above: Order Comment: No: D o not add to previous draw Result Comment: ALL RESULTS MUST BE INTERPRETED WITH RESPECT TO BLOOD DRAWING ARTIFACTOR DILUTION ERROR OF ANTICOAGULANT AT THE TIME OF SAMPLING. Performed By: #### 0 0121, 22133, 92462, 49556, 98046, 37795, 71400 ####[facility] *BLOOD CULTUREon 05-22-2018 Bacteria identified in Blood by Culture Clinical Report: (D) Specimen: BLOOD CULTURE Collected: 05/22/2018 17:59 Status: Final Last Updated: 05/28/2018 06:25 (1) Right hand 1759 CULT RES (Final) No Growth Day 5 Normal [facility] Comment on above: Order Comment: No: D o not add to previous draw Performed By: #### 0 0121, 28982, 10271, 66245, 94532, 13844, 27458 ####[facility] Bacteria identified in Blood by Culture Clinical Report: (D) Specimen: BLOOD CULTURE Collected: 05/22/2018 11:16 Status: Final Last Updated: 05/27/2018 14:19 (1) Pt gone to heart and vas Lt hand CULT RES (Final) No Growth Day 5 Normal [facility] Comment on above: Order Comment: No: D o not add to previous draw Performed By: #### 0 0121, 12673, 41754, 67848, 71887, 96131, 79643 ####[facility] [place] [address], [facility] BASIC METABOLIC PANELon 12- Calcium mass conc 8.9 mg/dL Normal 8.6-10.3 [facility] Comment on above: Performed By: #### 0 0121, 85853, 80672, 17328, 01770, 05935, 14217 ####[facility] [place] [address], [facility] Chloride molar conc 91 mmol/L Low 98-107 [facility] Comment on above: Performed By: #### 0 0121, 16779, 25284, 39622, 29225, 25132, 96926 ####[facility] [place] [address], [facility] CO2 molar conc 35 mmol/L High 21-31 [facility] Comment on above: Performed By: #### 0 0121, 38057, 19611, 89344, 85356, 91797, 56950 ####[facility] [place] [address], [facility] Creatinine mass conc 0.83 mg/dL Normal 0.70-1.30 [facility] Comment on above: Performed By: #### 0 0121, 72049, 24404, 21826, 50784, 36755, 66352 ####[facility] [place] [address], [facility] GFR/1.73 sq M predicted among blacks MDRD vol rate/area (S/P/Bld) mL/min/{1.73_m2} Normal >60 [facility] Comment on above: Performed By: #### 0 0121, 70764, 66623, 42543, 63509, 85081, 25554 ####[facility] [place] [address], [place] GFR/1.73 sq M predicted among non-blacks MDRD vol rate/area (S/P/Bld) mL/min/{1.73_m2} Normal >60 [facility] Comment on above: Performed By: #### 0 0121, 04459, 37318, 21068, 17846, 16590, 00073 ####[facility] [place] [address], [facility] Glucose mass conc 88 mg/dL Normal 70-100 [facility] Comment on above: Performed By: #### 0 0121, 18973, 08014, 95962, 79651, 83350, 75673 ####[facility] [place] [address], [facility] Potassium molar conc 4.4 mmol/L Normal 3.5-5.1 [facility] Comment on above: Performed By: #### 0 0121, 00586, 14232, 40503, 99106, 41509, 98281 ####[facility] Sodium molar conc 132 mmol/L Low 136-145 [facility] Comment on above: Performed By: #### 0 0121, 66368, 68218, 52951, 67687, 36779, 46963 ####[facility] [place] [address], [facility] Urea nitrogen mass conc 18 mg/dL Normal 7-25 [facility] Comment on above: Performed By: #### 0 0121, 22581, 26342, 44237, 67175, 71175, 88449 ####[facility] [place] [address], [facility] CBC W/DIFFon 05-22-2018 ABS BASOPHILS 0.1 10*3/uL Normal 0.0-0.2 [facility] Comment on above: Order Comment: No: D o not add to previous draw Performed By: #### 0 0121, 34404, 85119, 20924, 29927, 88960, 59262 ####[facility] ABS IMM GRANS 0.0 10*3/uL Normal 0.0-0.2 [facility] Comment on above: Order Comment: No: D o not add to previous draw Performed By: #### 0 0121, 49156, 00827, 94712, 68969, 11400, 81452 ####[facility] ABS NEUTROPHILS 4.4 10*3/uL Normal 1.6-7.6 [facility] Comment on above: Order Comment: No: D o not add to previous draw Performed By: #### 0 0121, 99148, 15428, 73485, 59506, 70412, 94157 ####[facility].[address] ANISO Moderate Normal [facility] Comment on above: Order Comment: No: D o not add to previous draw Performed By: #### 0 0121, 75148, 99807, 87549, 94476, 17261, 24179 ####[facility].[address] Basophils Auto #/vol (Bld) 1.1 % High 0.0-1.0 [facility] Comment on above: Order Comment: No: D o not add to previous draw Performed By: #### 0 0121, 30463, 15597, 71788, 53551, 28348, 04232 ####[facility] [place] [address], [facility] ELLIPTOCYTES Slight Normal [facility] Comment on above: Order Comment: No: D o not add to previous draw Performed By: #### 0 0121, 80049, 67345, 66132, 35030, 68762, 71470 ####[facility] [place] [address], [facility] Eosinophils Auto #/vol (Bld) 0.1 10*3/uL Normal 0.0-0.5 [facility] Comment on above: Order Comment: No: D o not add to previous draw Performed By: #### 0 0121, 37371, 32246, 97703, 27263, 46393, 51108 ####[facility] Eosinophils/100 WBC Auto (Bld) 1.4 % Normal 0.0-6.0 [facility] Comment on above: Order Comment: No: D o not add to previous draw Performed By: #### 0 0121, 04480, 42761, 28985, 76901, 04881, 78934 ####[facility] Erythrocyte distribution width Auto Ratio (RBC) 23.7 % High 11.5-15.0 [facility] Comment on above: Order Comment: No: D o not add to previous draw Performed By: #### 0 0121, 20473, 16678, 44549, 81802, 58313, 10993 ####[facility] Hematocrit Auto Volume Fraction (Bld) 33.7 % Low 39.0-50.0 [facility] Comment on above: Order Comment: No: D o not add to previous draw Performed By: #### 0 0121, 28536, 70851, 07899, 00521, 22265, 55953 ####[facility] Hemoglobin mass conc (Bld) 9.0 g/dL Low 13.0-17.0 [facility] Comment on above: Order Comment: No: D o not add to previous draw Performed By: #### 0 0121, 03978, 42437, 99671, 52445, 22932, 26983 ####[facility] HYPO Slight Normal [facility] Comment on above: Order Comment: No: D o not add to previous draw Performed By: #### 0 0121, 36979, 32577, 40852, 21708, 50640, 82952 ####[facility] IMM PLATELET FRAC 10.9 % High 0.8-6.3 [facility] Comment on above: Order Comment: No: D o not add to previous draw Performed By: #### 0 0121, 53626, 14717, 82715, 52385, 47829, 67222 ####[facility] IMMATURE GRANS 0.3 % Normal 0.0-1.0 [facility] Comment on above: Order Comment: No: D o not add to previous draw Performed By: #### 0 0121, 35423, 79474, 97742, 28952, 80958, 73294 ####[facility] Lymphocytes Auto #/vol (Bld) 1.0 10*3/uL Low 1.2-4.0 [facility] Comment on above: Order Comment: No: D o not add to previous draw Performed By: #### 0 0121, 32346, 89102, 25921, 28604, 12935, 11260 ####[facility].[address] Lymphocytes/100 WBC Auto (Bld) 15.7 % Low 20.0-45.0 [facility] Comment on above: Order Comment: No: D o not add to previous draw Performed By: #### 0 0121, 73975, 23710, 84428, 72525, 56895, 80799 ####[facility] [place] [address], [place] MCH Auto Entitic mass (RBC) 19.4 pg Low 27.0-33.0 [facility] Comment on above: Order Comment: No: D o not add to previous draw Performed By: #### 0 0121, 89672, 20740, 23390, 71378, 46534, 58073 ####[facility] MCHC Auto mass conc (RBC) 26.7 g/dL Low 32.0-35.0 [facility] Comment on above: Order Comment: No: D o not add to previous draw Performed By: #### 0 0121, 22898, 35429, 96523, 10404, 71725, 88395 ####[facility] [address] MCV Auto Entitic volume (RBC) 72.5 fL Low 82.0-98.0 [facility] Comment on above: Order Comment: No: D o not add to previous draw Performed By: #### 0 0121, 10346, 04721, 79802, 86931, 15172, 55950 ####[facility] Monocytes Auto #/vol (Bld) 0.9 10*3/uL Normal 0.1-1.0 [facility] Comment on above: Order Comment: No: D o not add to previous draw Performed By: #### 0 0121, 73474, 40876, 79298, 35540, 76911, 22104 ####[facility] MONOS 13.5 % High 5.0-12.0 The [facility] Comment on above: Order Comment: No: D o not add to previous draw Performed By: #### 0 0121, 99548, 89472, 09221, 42060, 12368, 98952 ####[facility] Neutrophils/100 WBC Auto (Bld) 68.0 % Normal 40.0-72.0 [facility] Comment on above: Order Comment: No: D o not add to previous draw Performed By: #### 0 0121, 80478, 25909, 46732, 49122, 07894, 19140 ####[facility] Nucleated RBC/100 WBC Ratio (Bld) 1 % High 0-0 [facility] Comment on above: Order Comment: No: D o not add to previous draw Performed By: #### 0 0121, 59782, 60514, 09772, 92653, 03539, 15794 ####[facility].[address] OVALOCYTES Slight Normal [facility] Comment on above: Order Comment: No: D o not add to previous draw Performed By: #### 0 0121, 08577, 20450, 72789, 26356, 66904, 36725 ####[facility] PLAT CNT 234 10*3/uL Normal 150-400 [facility] Comment on above: Order Comment: No: D o not add to previous draw Performed By: #### 0 0121, 87721, 53328, 14103, 13052, 01686, 50172 ####[facility] POIK Moderate Normal [facility] Comment on above: Order Comment: No: D o not add to previous draw Performed By: #### 0 0121, 08058, 84738, 29176, 36365, 30549, 34555 ####[facility] [place] [address], [facility] RBC Auto #/vol (Bld) 4.65 10*6/uL Normal 4.20-5.70 Th e [facility] Comment on above: Order Comment: No: D o not add to previous draw Performed By: #### 0 0121, 79081, 06868, 45337, 25554, 53149, 79358 ####[facility].[address] TARGET CELLS Slight Normal [facility] Comment on above: Order Comment: No: D o not add to previous draw Performed By: #### 0 0121, 34170, 97329, 49217, 17145, 29326, 30851 ####[facility].[address] WBC Auto #/vol (Bld) 6.50 10*3/uL Normal 4.00-10.60 Th e [facility] Comment on above: Order Comment: No: D o not add to previous draw Performed By: #### 0 0121, 88568, 47278, 59506, 11511, 24860, 50546 ####[facility].[address] MAGNESIUM BLOODon 05-22-2018 Magnesium mass conc 1.7 mg/dL Low 1.9-2.7 [facility] Comment on above: Order Comment: No: D o not add to previous draw Performed By: #### 0 0121, 84966, 01618, 64978, 55866, 82816, 26003 ####[facility] [place] [address], [facility] OSMOLALITY URINEon 8 OSMOLALITY 487 mOsm/kg Normal 50-1400 [facility] Comment on above: Order Comment: No: D o not add to previous draw Performed By: #### 0 0121, 59587, 19593, 68130, 70554, 21038, 67037 ####[facility] [place] [address], [facility] PHOSPHORUS BLOODon 8 Phosphate mass conc 3.4 mg/dL Normal 2.5-5.0 [facility] Comment on above: Order Comment: No: D o not add to previous draw Performed By: #### 0 0121, 57413, 52704, 78190, 97766, 94549, 94809 ####[facility].[address] PROTHROMBIN TIMEon 1218-201 8 INR Coag RelTime (PPP) 1.64 {INR} High 0.91-1.16 Th e [facility] Comment on above: Order Comment: No: D o not add to previous draw Result Comment: ACCC P RECOMMENDED INR FOR WARFARIN THERAPY CONDITION INRPROPHYLAXIS OF VENOUS THROMBOSIS 2-3(HIGH-RISK SURGERY)TREATMENT OF VENOUS THROMBOSIS 2-3TREATMENT OF PULMONARY EMBOLISM 2-3PREVENTION OF SYSTEMIC EMBOLISM: 2-3 ACUTE MYOCARDIAL INFARCTION TISSUE HEART VALVES VALVULAR HEART DISEASE ATRIAL FIBRILLATION RECURRENT SYSTEMIC EMBOLISMMECHANICAL HEART VALVE 2.5-3.5 FROM : ORAL ANTICOAGULANTS. MECHANISM OF ACTION, CLINICALEFFECTIVENESS, AND OPTIMAL THERAPEUTIC RANGE. [id number];108:231S-246S. Performed By: #### 0 0121, 90657, 06384, 12676, 96944, 79591, 19315 ####[facility].[address] Prothrombin time (PT) Coag time (PPP) 19.5 s High 12.3-14.8 [facility] Comment on above: Order Comment: No: D o not add to previous draw Result Comment: ALL RESULTS MUST BE INTERPRETED WITH RESPECT TO BLOOD DRAWING ARTIFACTOR DILUTION ERROR OF ANTICOAGULANT AT THE TIME OF SAMPLING. Performed By: #### 0 0121, 97193, 89380, 06886, 85467, 11500, 88604 ####[facility] [place] [address], [facility] SODIUM URINE RANDOMon 2017 Sodium molar conc 32 mmol/L Normal [facility] Comment on above: Order Comment: No: D o not add to previous draw Result Comment: Ther e are no established reference values for random urine specimens Performed By: #### 0 0121, 35546, 77527, 44303, 68668, 81959, 02771 ####[facility] [place] [address], [facility] US HEPATIC ECHOGRAMon 2017 US HEPATIC ECHOGRAM [facility] [address] [place] [address] [id number] Patient Name: DAMI ALCALA : 1950Sex: MAge: Race: WhiteMRN: [id number]. Location: [id number] Status: IVisit #: [id number] Date: 05/22/2018 9:15:00 AMCompleted Date: 05/22/2018 01:16 PMRequesting Provider: ALIYA OLMOS Attending Provider: KAHLIL GAY Report Copy To: Signs & Symptoms: RUQ/Abdominal PainHistory: Patient history not availableComments: R/O Liver DiseaseExam: US HEPATIC ECHOGRAMAccession #: [id number] US HEPATIC ECHOGRAM 05/22/2018 1:16 PM EST SIGNS AND SYMPTOMS: RUQ/Abdominal Pain TECHNOLOGIST COMMENTS: RUQ/Abdominal Pain QUESTION FOR THE RADIOLOGIST: R/O Liver Disease TECHNIQUE: Limited abdominal ultrasound. COMPARISON: none FINDINGS: The liver has normal echogenicity with no evidence of focal lesion or dilatation of intrahepatic bile ducts. Hepatopedal flow seen in the portal vein with a flow rate of 37 cm/s.The bile duct measured 3 mm. Echogenic foci with twinkle artifact were noted within the gallbladder.Ascites and right pleural effusion are noted. A cyst was also present in the upper pole of the right kidney appearing to contain septations measuring a maximum of 2.4 cm. IMPRESSION: * Unremarkable appearance to liver.* Cholelithiasis.* Ascites and right pleural effusion.* Suspect septated cyst in upper pole of right kidney. 6-12 month follow-up suggested. Electronically signed by:Clemente Juárez. Transcribed by: [email or web address], User Resident: Electronically Signed by: CLEMENTE JUÁREZ @ 05/22/2018 02:45 PM Normal [facility] Comment on above: Order Comment: No: D o not add to previous draw BNP (B-TYPE NATRIURETIC PEPT SALLY)on 05-21-2018 Natriuretic peptide B mass conc (Bld) 790 pg/mL High 0-100 [facility] Comment on above: Order Comment: No: D o not add to previous draw Result Comment: Give n the appropriate clinical setting a BNP result of >100 pg/mLindicates congestive heart failure. Performed By: #### 8 5123 ####[facility].[address] CBC COMPLETE BLOOD COUNTon 1 07-22-2017 Erythrocyte distribution width Auto Ratio (RBC) 24.2 % High 11.5-15.0 [facility] Comment on above: Order Comment: No: D o not add to previous draw Performed By: #### 5 0608 ####[facility].[address] Hematocrit Auto Volume Fraction (Bld) 34.4 % Low 39.0-50.0 [facility] Comment on above: Order Comment: No: D o not add to previous draw Performed By: #### 5 0608 ####[facility] Hemoglobin mass conc (Bld) 9.2 g/dL Low 13.0-17.0 [facility] Comment on above: Order Comment: No: D o not add to previous draw Performed By: #### 5 0608 ####[facility] IMM PLATELET FRAC 11.8 % High 0.8-6.3 [facility] Comment on above: Order Comment: No: D o not add to previous draw Performed By: #### 5 0608 ####[facility] MCH Auto Entitic mass (RBC) 19.1 pg Low 27.0-33.0 [facility] Comment on above: Order Comment: No: D o not add to previous draw Performed By: #### 5 0608 ####[facility] MCHC Auto mass conc (RBC) 26.7 g/dL Low 32.0-35.0 [facility] Comment on above: Order Comment: No: D o not add to previous draw Performed By: #### 5 0608 ####[facility] MCV Auto Entitic volume (RBC) 71.5 fL Low 82.0-98.0 [facility] Comment on above: Order Comment: No: D o not add to previous draw Performed By: #### 5 0608 ####[facility] [place] [address] Nucleated RBC/100 WBC Ratio (Bld) 0 % Normal 0-0 [facility] Comment on above: Order Comment: No: D o not add to previous draw Performed By: #### 5 0608 ####[facility] [place] [address], [facility] PLAT CNT 257 10*3/uL Normal 150-400 [facility] Comment on above: Order Comment: No: D o not add to previous draw Performed By: #### 5 0608 ####[facility] [place] [address], [facility] RBC Auto #/vol (Bld) 4.81 10*6/uL Normal 4.20-5.70 Th e [facility] Comment on above: Order Comment: No: D o not add to previous draw Performed By: #### 5 0608 ####[facility] [place] [address], [facility] WBC Auto #/vol (Bld) 7.33 10*3/uL Normal 4.00-10.60 Th e [facility] Comment on above: Order Comment: No: D o not add to previous draw Performed By: #### 5 0608 ####[facility] COMP METABOLIC PANELon 05-21 Albumin mass conc 2.8 g/dL Low 3.5-5.7 [facility] Comment on above: Order Comment: No: D o not add to previous draw Performed By: #### 0 0121, 33847, 26709, 06054, 69580, 81420, 48053 ####[facility] [place] [address], [facility] ALKALINE PHOSPH 94 IU/L Normal 34-104 [facility] Comment on above: Order Comment: No: D o not add to previous draw Performed By: #### 0 0121, 92102, 27253, 28686, 93691, 47873, 64220 ####[facility] ALT enzyme act/vol 9 U/L Normal 7-52 [facility] Comment on above: Order Comment: No: D o not add to previous draw Performed By: #### 0 0121, 51001, 69732, 59760, 59702, 21541, 47306 ####[facility] [place] [address], [facility] AST enzyme act/vol 21 U/L Normal 13-39 [facility] Comment on above: Order Comment: No: D o not add to previous draw Performed By: #### 0 0121, 17606, 08799, 09963, 17661, 37218, 56295 ####[facility] [place] [address], [facility] Bilirubin mass conc 1.0 mg/dL Normal 0.3-1.0 [facility] Comment on above: Order Comment: No: D o not add to previous draw Performed By: #### 0 0121, 72581, 80374, 88937, 54543, 67409, 47741 ####[facility] [place] [address], [facility] Calcium mass conc 8.8 mg/dL Normal 8.6-10.3 [facility] Comment on above: Order Comment: No: D o not add to previous draw Performed By: #### 0 0121, 93987, 24940, 38434, 24178, 51402, 21410 ####[facility] [place] [address], [facility] Chloride molar conc 93 mmol/L Low 98-107 [facility] Comment on above: Order Comment: No: D o not add to previous draw Performed By: #### 0 0121, 67394, 67708, 90861, 88949, 51629, 97855 ####[facility] [place] [address], [facility] CO2 molar conc 31 mmol/L Normal 21-31 [facility] Comment on above: Order Comment: No: D o not add to previous draw Performed By: #### 0 0121, 11854, 97098, 87861, 44123, 41300, 62852 ####[facility] [place] [address], [facility] Creatinine mass conc 0.90 mg/dL Normal 0.70-1.30 [facility] Comment on above: Order Comment: No: D o not add to previous draw Performed By: #### 0 0121, 26483, 41785, 02182, 16670, 32414, 33690 ####[facility] [place] [address], [facility] GFR/1.73 sq M predicted among blacks MDRD vol rate/area (S/P/Bld) mL/min/{1.73_m2} Normal >60 [facility] Comment on above: Order Comment: No: D o not add to previous draw Performed By: #### 0 0121, 94338, 40084, 52104, 52137, 73632, 26913 ####[facility] [place] [address], [facility] GFR/1.73 sq M predicted among non-blacks MDRD vol rate/area (S/P/Bld) mL/min/{1.73_m2} Normal >60 [facility] Comment on above: Order Comment: No: D o not add to previous draw Performed By: #### 0 0121, 59768, 66480, 42670, 73430, 91562, 25938 ####[facility] [place] [address], [place] Glucose mass conc 82 mg/dL Normal 70-100 [facility] Comment on above: Order Comment: No: D o not add to previous draw Performed By: #### 0 0121, 55238, 27735, 29102, 41365, 15704, 08538 ####[facility] [place] [address], [place] Potassium molar conc 4.3 mmol/L Normal 3.5-5.1 [facility] Comment on above: Order Comment: No: D o not add to previous draw Performed By: #### 0 0121, 48614, 94755, 12658, 90749, 92823, 83679 ####[facility] [place] [address], [facility] Protein mass conc 6.3 g/dL Normal 6.0-8.3 [facility] Comment on above: Order Comment: No: D o not add to previous draw Performed By: #### 0 0121, 55560, 72522, 04752, 29294, 67283, 74625 ####[facility] Sodium molar conc 130 mmol/L Low 136-145 [facility] Comment on above: Order Comment: No: D o not add to previous draw Performed By: #### 0 0121, 35361, 25588, 46770, 40374, 27742, 55822 ####[facility] Urea nitrogen mass conc 22 mg/dL Normal 7-25 T he [facility] Comment on above: Order Comment: No: D o not add to previous draw Performed By: #### 0 0121, 14584, 66867, 83695, 40560, 15552, 18631 ####[facility] [place] [address], [facility] CTA CHESTon 05-21-2018 CTA CHEST [facility] [address] [place] [address] Patient Name: DAMI ALCALA : 1950Sex: MAge: Race: WhiteMRN: [id number]. Location: [id number] Status: IVisit #: [id number] Date: 05/21/2018 5:10:00 PMCompleted Date: 05/21/2018 08:45 PMRequesting Provider: EVERARDO LIAO Attending Provider: KAHLIL GAY Report Copy To: Signs & Symptoms: Shortness of BreathHistory: Patient history not availableComments: R/O Pulmonary EmbolismExam: CTA CHESTAccession #: [id number] CTA CHEST 05/21/2018 8:45 PM EST SIGNS AND SYMPTOMS: Shortness of Breath TECHNOLOGIST COMMENTS: SOB today. QUESTION FOR THE RADIOLOGIST: R/O Pulmonary Embolism PROTOCOL: Axial CT angiography images were obtained with IV contrast. CONTRAST: Contrast: OMNIPAQUE 350 (LOCM), 100 milliliter, Intravenous TECHNIQUE: CT angiography of the chest were obtained with intravenous contrast. Multiplanar, MIP, and volume rendered 3-D reformats were generated on a separate workstation and reviewed to further define anatomy and possible pathology. Low dose acquisition and reconstruction algorithms were utilized. COMPARISON: None. FINDINGS: The thyroid and the thoracic inlet appear unremarkable.The central airways are patent.The thoracic aorta is nonaneurysmal and without dissection. Scattered calcifications are noted in the aortic arch and descending aorta. 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 Ascites is noted adjacent to the liver and spleen.The study viewed at bone window is unremarkable. IMPRESSION: 1. No evidence for pulmonary embolus.2. Apparent right subclavian artery.3. Moderately large free right-sided pleural effusion and smaller posteriorly loculated left-sided pleural effusion.4. Emphysema.5. Distended stomach.6. Ascites. Electronically signed by:Clemente Juárez. Transcribed by: [id number], User Resident: Electronically Signed by: CLEMENTE JUÁREZ @ 05/22/2018 07:51 AM Normal [facility] Comment on above: Order Comment: No: D o not add to previous draw D DIMER TESTon 05-21-2018 D-DIMER TEST 3.52 mcg/mL FEU High 0.01-0.49 [facility] Comment on above: Order Comment: Yes: Add to Previous draw if able Result Comment: D-Di kory values of less than 0.50 ug/ml (FEU) are considered to be anegative predictor of thrombosis. However, the D-Dimer result should beused in conjunction with pretest probability and should not be usedalone to diagnose a thrombotic event. Performed By: #### 5 3629, 27588 ####[facility] FERRITINon 05-21-2018 Ferritin [Mass/volume] in Serum or Plasma 9 ng/mL Low 24-336 [facility] Comment on above: Performed By: #### 0 0121, 26756, 53471, 43919, 87204, 86481, 00923 ####[facility].[address] History and Physicalon 05-21 History and Physical MR#: [id number] Dami Alcala Admitted: 05/21/2018 Date of : 1950 Attending Physician: Everardo Liao MD Room #: 3AB [id number] Discharge Date: HISTORY AND PHYSICALHISTORY OF PRESENT ILLNESS: The patient is a 67-year-old malewith past medical history significant for hypertension, tobacco dependence,history of alcohol abuse, history of cardiac tamponade back in 2015,[facility]. According to the patient, he has been having difficultyin breathing for the past 3 weeks that initially started as cold likesymptoms and later on it got worse to the point that he gets very tiredeven using the restroom and he was not eating much and his appetite hasbeen decreased. The patient denies any history of malignancy. The patientdenies any history of CA, any history of stroke in the past. The patientdenied any history of weight loss, although he looks very cachectic andvery wasted. The patient has a history of significant smoking 1 pack perday for the past 50-55 years. The patient denies headache, blurring ofvision, difficulty in swallowing food. The patient denies chest pain. Thepatient denies abdominal pain. The patient denies nausea, vomiting,dysuria, hematuria, joint pain. The patient was evaluated by Dr. [facility]outdu in [facility] where the patient was found to havesevere right-sided heart failure on echocardiogram. At the time ofencounter, the patient was alert and active, not in acute distress. Bloodpressure was on monitor systolic 76/50. On manual check, blood pressurewas 98 but diastolic was unable to measure as per nurse.I discussed case with Dr. Berry over phone regarding hypotension and Iupdated him regarding the current situation as the patient is completelyasymptomati c. He would like to keep observe the patient and no plan foracute intervention at this point.REVIEW OF SYSTEMS: A 12-point review of system obtained, negative exceptas per presenting illness.PHYSICAL EXAMINATION: VITAL SIGNS: Blood pressure 98/56 on manual. Thepatient is afebrile. No sign of labored breathing.GENERAL APPEARANCE: The patient is cachectic, thin. Bilateral temporalwasting visible. Alert and oriented x3. Son at bedside.HEART: S1, S2 audible. No S4 gallop, no S3 gallop noted.LUNGS: Mild bilateral crackles noted, but no wheezes, no rhonchi.ABDOMEN: soft, non tender, left lateral side is hard and little warm, butnon tenderHEAD AND NECK: JVD positive. Positive hepatojugular reflex. No lymphnode enlargement noted.MUSCULOSKELETAL : No joint deformity noted. Left lower extremity is moreswollen than the right lower extremity. Bilateral pitting edema noted, +1to +2 pulses intact grossly.NEUROLOGIC: Grossly intact. Unable to notice any focal deficit.PSYCH: The patient has good insight. No sign of suicidal or homicidalideation, and depression noted.LABORATORY DATA: Magnesium 1.7. CBC; hemoglobin 9.2, hematocrit 34.4, MCV71.5, MCH 19.1, MCHC 26.7, RDW is 24, platelet count 257, WBC 7.5.Complete metabolic panel; sodium 130, chloride 93, albumin is 2.8.IMAGING STUDIES: CTA chest, ultrasound abdomen and bilateral lowerextremity Doppler has been ordered.ASSESSMENT AND PLAN:1. Acute hypoxic respiratory failure requiring 4 liter oxygen, Rule out pulmonary embolism as echocardiogram from May 17, 2018, showed severely enlarged right ventricle with right ventricular systolic function reduced and severe right ventricular pressure overload with diastolic impingement of the left ventricular filling by paradoxical septal motion in diastole, the septum, left ventricular systolic function is normal. The right atrium is severely enlarged with severe tricuspid regurgitation and severe pulmonary hypertension. No significant aortic or mitral valve disease. No pericardial effusion noted. We will obtain a CTA chest to rule out PE, although it is less likely, patient could have echo finding secondary to Group 3 PH due extensive smoking history, Ultrasound lower extremity Doppler has been ordered as well. We will start the patient on IV heparin drip if needed. Patient will get a right-sided cardiac cath tomorrow per Cardiology giving severe pulmonary hypertension and severe tricuspid regurgitation. Chest x-ray has been ordered, no sign of infection as this point.2. Microcytic anemia likely secondary to chronic GI losses. I doubt the patient had colonoscopy. The patient will likely to have outpatient followup with GI for screening colonoscopy. I will get iron studies including ferritin, iron level and TIBC. Continue to monitor serum HB level, transfuse as needed.3. Hypomagnesemia 1.7. We will replace with 2 g IV.4. Hypertension. We will hold all the hypertensive medications as the patient is running hypotensive for now.5. Tobacco dependence. We will start the patient on nicotine patch 21 mg once a day.6. History of alcohol abuse, remote. No risk for alcohol withdrawal.7. Hypoalbuminemia may be secondary to severe protein calorie malnutrition or liver dysfunction due to history of alcoholism or congestive hepatopathy. We will get the PT, INR as well to evaluate the liver synthetic ability.8. History of cardiac tamponade in 2016. No sign of cardiac tamponade sign noted. Echocardiogram did not show any pericardial effusion.9. Hypovolemic hyponatremia, rule out SIADH. We will get serum osmolality, urine osmolality, urine electrolytes and uric acid. Currently, the patient is asymptomatic. Continue to monitor.10. Code status discussed with the patient. The patient wants to be full code for now in front of the nursing staff and the family.11. Disposition, pending clinical course.Electronically Signed by:Everardo Liao MD 05/24/2018 11:31 A Everardo Liao, MDDate Dict: 05/21/2018/06:51 P/Everardo Liao MDDate Trans: 05/21/2018 07:33 P/[id number] Normal [facility] MAGNESIUM BLOODon 05-21-2018 Magnesium mass conc 1.7 mg/dL Low 1.9-2.7 [facility] Comment on above: Order Comment: No: D o not add to previous draw Performed By: #### 0 0121, 90491, 26673, 37706, 90336, 73272, 33393 ####[facility] [place] [address], [facility] OSMOLALITY BLOODon 8 Osmolality 285 mOsm/kg Normal 285-305 [facility] Comment on above: Performed By: #### 0 0121, 72046, 13664, 45802, 58756, 06063, 68053 ####[facility] [place] [address], [facility] PHOSPHORUS BLOODon 8 Phosphate mass conc 3.5 mg/dL Normal 2.5-5.0 [facility] Comment on above: Performed By: #### 0 0121, 42131, 56089, 96876, 76895, 41071, 09879 ####[facility].[address] PROTHROMBIN TIMEon 8 INR Coag RelTime (PPP) 1.48 {INR} High 0.91-1.16 [facility] Comment on above: Result Comment: ACCC P RECOMMENDED INR FOR WARFARIN THERAPY CONDITION INRPROPHYLAXIS OF VENOUS THROMBOSIS 2-3(HIGH-RISK SURGERY)TREATMENT OF VENOUS THROMBOSIS 2-3TREATMENT OF PULMONARY EMBOLISM 2-3PREVENTION OF SYSTEMIC EMBOLISM: 2-3 ACUTE MYOCARDIAL INFARCTION TISSUE HEART VALVES VALVULAR HEART DISEASE ATRIAL FIBRILLATION RECURRENT SYSTEMIC EMBOLISMMECHANICAL HEART VALVE 2.5-3.5 FROM : ORAL ANTICOAGULANTS. MECHANISM OF ACTION, CLINICALEFFECTIVENESS, AND OPTIMAL THERAPEUTIC RANGE. [id number];108:231S-246S. Performed By: #### 0 0121, 98814, 95998, 13099, 68795, 91718, 08031 ####[facility].[address] Prothrombin time (PT) Coag time (PPP) 18.0 s High 12.3-14.8 [facility] Comment on above: Result Comment: ALL RESULTS MUST BE INTERPRETED WITH RESPECT TO BLOOD DRAWING ARTIFACTOR DILUTION ERROR OF ANTICOAGULANT AT THE TIME OF SAMPLING. Performed By: #### 0 0121, 70647, 56174, 24584, 81218, 24109, 53037 ####[facility] [place] [address], [facility] TIBC- INCLUDES IRONon 2017 FE SATURATION 4 % Low 20-50 [facility] Comment on above: Performed By: #### 0 0121, 80045, 91915, 45106, 68078, 18372, 27033 ####[facility] Iron mass conc 17 ug/dL Low 50-212 [facility] Comment on above: Performed By: #### 0 0121, 42192, 34958, 61800, 56941, 23325, 28228 ####[facility] TIBC 392 mcg/dL Normal 250-450 [facility] Comment on above: Performed By: #### 0 0121, 35054, 57465, 31198, 36034, 89766, 66011 ####[facility] UIBC 375 mcg/dL High 155-355 [facility] Comment on above: Performed By: #### 0 0121, 86326, 82372, 55441, 80286, 68050, 74560 ####[facility] URIC ACID BLOODon 05-21-2018 Urate mass conc 8.4 mg/dL High 4.4-7.6 [facility] Comment on above: Performed By: #### 0 0121, 22254, 43835, 42021, 22975, 63546, 26230 ####[facility].[address] Vital Signs Date Time Vital Sign Value Performing Clinician Facility 04-03-2024 11:18-0400 Body mass index (BMI) [Ratio] 24.4 kg/m2 MD Polina Quezada Work Phone: [facility] 04-03-2024 11:18-0400 Inhaled oxygen flow rate 2 L/min MD Polina Quezada Work Phone: [facility] 04-03-2024 10:58-0400 Body height 182.88 cm MD Polina Quezada Work Phone: [facility] 04-03-2024 10:58-0400 Body weight 81.64 kg MD Polina Quezada Work Phone: [facility] 04-03-2024 10:58-0400 Diastolic blood pressure 60 mm[Hg] MD Polina Qeuzada Work Phone: [facility] 04-03-2024 10:58-0400 Heart rate 87 /min MD Polina Quezada Work Phone: [facility] 04-03-2024 10:58-0400 SaO2% (BldA) [Mass fraction] 91 % MD Polina Quezada Work Phone: [facility] 04-03-2024 10:58-0400 Systolic blood pressure 128 mm[Hg] MD Polina Quezada Work Phone: [facility] 01-02-2024 10:58-0400 Body height 182.88 cm [facility] 01-02-2024 10:58-0400 Body mass index (BMI) [Ratio] 21.7 kg/m2 [facility] 01-02-2024 10:58-0400 Body weight 72.57 kg [facility] 01-02-2024 10:58-0400 Diastolic blood pressure 56 mm[Hg] [facility] 01-02-2024 10:58-0400 Heart rate 97 /min [facility] 01-02-2024 10:58-0400 Systolic blood pressure 111 mm[Hg] [facility] 09-26-2023 14:07-0400 Body height 182.88 cm [facility] 09-26-2023 14:07-0400 Body mass index (BMI) [Ratio] 20.7 kg/m2 [facility] 09-26-2023 14:07-0400 Body weight 69.56 kg [facility] 09-26-2023 14:07-0400 Diastolic blood pressure 58 mm[Hg] [facility] 09-26-2023 14:07-0400 Heart rate 89 /min [facility] 09-26-2023 14:07-0400 SaO2% (BldA) [Mass fraction] 97 % [facility] 09-26-2023 14:07-0400 Systolic blood pressure 120 mm[Hg] [facility] 08-07-2023 16:53-0500 SaO2% (BldA) [Mass fraction] 100 % [facility] Comment on above: Performed By: #### CBC, CMP, 94478-7 ### # [facility] ([id number]) [address], [address] [place] [address] 08-07-2023 09:57-0500 SaO2% (BldA) [Mass fraction] 99 % [facility] Comment on above: Performed By: #### CBC, CMP, 02440-5 ### # [facility] ([id number]) [address] [place] [address] 01-23-2023 14:00-0400 Body height 182.88 cm Ploina Quezada Other [facility] Other 01-23-2023 14:00-0400 Body mass index (BMI) [Ratio] 22.51 kg/m2 Polina Quezada Other [facility] Other 01-23-2023 14:00-0400 Body weight 75.3 kg Polina Quezada Other [facility] Other 01-23-2023 14:00-0400 Diastolic blood pressure 40 mm[Hg] Polina Quezada Other [facility] Other 01-23-2023 14:00-0400 SaO2% (BldA) [Mass fraction] 86 % Polina Quezada Other [facility] Other 01-23-2023 14:00-0400 Systolic blood pressure 103 mm[Hg] Polina Quezada Other [facility] Other Encounters Encounter Date Encounter Type Care Provider Facility Start: 04-09-2024 End: 04-09-2024 Patient encounter procedure MD Polina Quezada Work Phone: [facility] [address] Work Phone: Start: 04-09-2024 End: 04-09-2024 ambulatory MD Polina Quezada Work Phone: [facility] Work Phone: Start: 04-03-2024 Non-patient / Non-visit MD Polina Quezada Work Phone: [facility] Work Phone: Start: 04-03-2024 End: 04-03-2024 ambulatory MD Polina Quezada Work Phone: [facility] Work Phone: Start: 04-03-2024 End: 04-03-2024 Patient encounter procedure MD Polina Quezada Work Phone: [facility] Work Phone: Start: 03-13-2024 End: 03-13-2024 Patient encounter procedure MD Polina Quezada Work Phone: [facility] [address] Work Phone: Start: 03-13-2024 End: 03-13-2024 ambulatory MD Polina Quezada Work Phone: [facility] Work Phone: Start: 01-02-2024 End: 01-02-2024 ambulatory [facility] Work Phone: Start: 01-02-2024 End: 01-02-2024 Patient encounter procedure [facility] Work Phone: Start: 09-26-2023 End: 09-26-2023 ambulatory [facility] Work Phone: Start: 09-26-2023 End: 09-26-2023 Patient encounter procedure [facility] Work Phone: Start: 08-24-2023 End: 08-25-2023 ambulatory MAURICIO [facility] Start: 08-14-2023 End: 08-14-2023 ambulatory POLINA Esteban QUEZADA [facility] Start: 08-12-2023 End: 08-12-2023 Evaluation and management of inpatient SALBADOR AVENDANO [facility] Start: 08-08-2023 End: 08-08-2023 ambulatory MAT MATHEW [facility] Start: 08-08-2023 End: 08-12-2023 [facility]: 08-07-2023 End: 08-12-2023 Evaluation and management of inpatient NOEL DAMIAN [facility] Start: 08-07-2023 End: 08-12-2023 Evaluation and management of inpatient [facility] Start: 08-07-2023 End: 08-12-2023 Evaluation and management of inpatient GLO JURADONDEs [facility] Start: 08-06-2023 End: 08-12-2023 Evaluation and management of inpatient LIANET SNELL [facility] Start: 08-06-2023 End: 08-11-2023 Evaluation and management of inpatient YENNI VELASCO [facility] Start: 08-05-2023 End: 08-07-2023 Evaluation and management of inpatient CARL TINAJERO [facility] Start: 08-04-2023 End: 08-07-2023 Emergency department patient visit MICHELE LOVE [facility] Start: 08-04-2023 End: 08-06-2023 Evaluation and management of inpatient MICHELE LOVE [facility] Start: 07-20-2023 End: 08-04-2023 ambulatory NO PCP NO PCP [facility] Start: 07-19-2023 End: 07-20-2023 ambulatory SP DAY [facility] Start: 06-09-2023 End: 06-09-2023 ambulatory NOT IN SYSTEM REF PROV [facility] Start: 06-08-2023 End: 06-09-2023 ambulatory JILLIAN GOMEZ [facility] Start: 03-27-2023 End: 04-17-2023 Evaluation and management of inpatient STEPHANIE HALL [facility] Start: 03-23-2023 End: 03-23-2023 ambulatory Polina Quezada Other [facility] Other Start: 03-23-2023 Telephone encounter Polina Quezada [facility] Start: 03-21-2023 End: 03-27-2023 Evaluation and management of inpatient MONTRELL HAIRSTON [facility] Start: 02-02-2023 End: 02-02-2023 ambulatory Polina Quezada Other [facility] Other Start: 02-02-2023 Telephone encounter Polina Quezada [facility] Start: 01-23-2023 End: 01-23-2023 ambulatory Polina Quezada Other [facility] Other Start: 01-23-2023 Office outpatient visit 25 minutes Polina Quezada [facility] Start: 05-10-[address] POLINA QUEZADA Facil ity:[facility] Start: 04-29-2021 End: 04-29-[address] GUILLAUME GRIFFITH Facility: Start: 05-21-2018 End: 05-24-2018 Evaluation and management of inpatient GUILLORY ALI Facility:[facility] Start: 05-18-2018 End: 05-19-2018 Patient encounter procedure DEFAULT PHYSICIAN Facility:[facility] Procedures Date Procedure Procedure Detail Performing Clinician Start: 05-22-2018 MEASURE OF CARDIAC S AMPL \T\ PRESSURE, R HEART, PERC APPROACH EHAB A [place] Start: 05-22-2018 ULTRASONOGRAPHY OF HEPATOBILIARY SYSTEM, ALL GUILLORY ALI Removal of suture Polina steele Other Screening for malign ant neoplasm of prostate Polina Pilar Other Plan of Treatment Date Care Activity Detail Author Start: 04-03-2024 Patient referral [facility] Work Phone: Start: 03-13-2024 Hemolytic complement CH50 level [facility] Start: 03-13-2024 [facility] Start: 01-11-2024 Patient referral [facility] Work Phone: 24 hour urine measurement Fi [facility] Albumin [Mass/volume ] in Serum or Plasma [facility] Albumin/Globulin ratio [facility] Angiotensin converti ng enzyme [Enzymatic activity/volume] in Serum or Plasma [facility] Complement C3 [Mass/ volume] in Serum or Plasma [facility] Complement C4 [Mass/ volume] in Serum or Plasma [facility] Electrophoresis: [id number] [facility] Electrophoresis: [id number] [facility] Electrophoresis: beta-globulin [facility] Electrophoresis: gamma globulin [facility] Globulin [Mass/volume] in Serum [facility] Homogenous nuclear A b pattern [Titer] in Serum [facility] IgA [Mass/volume] in Serum or Plasma [facility] IgG [Mass/volume] in Serum or Plasma [facility] IgM [Mass/volume] in Serum or Plasma [facility] Immunofixation for Urine [facility] light chains.f ree [Mass/volume] in Serum [facility] [place] light chains.f ree/Lambda light chains.free [Mass Ratio] in Serum [facility] Lambda light chains. free [Mass/volume] in Serum or Plasma [facility]ical [place] Measurement of monoc lonal protein concentration [facility] Nuclear Ab [Titer] in Serum [facility] Patient referral [facility] Work Phone: Protein [Mass/volume ] in Serum or Plasma [facility] Protein [Mass/volume] in Urine [facility] Serum immunofixation [facility] Sjogrens syndrome-A extractable nuclear Ab [Units/volume] in Serum [facility] Sjogrens syndrome-B extractable nuclear Ab [Units/volume] in Serum [facility] Immunizations Immunization Date Immunization Notes Care Provider Fa cility 06-01-2021 COVID-19 Vaccine Pfi zer - Documentation Purposes Only Polina Quezada Other [facility] 04-22-2019 influenza virus vaccine, split virus (incl. purified surface antigen) Polina Quezada Other [facility] Other 04-22-2019 influenza virus vaccine, unspecified formulation [facility] 04-22-2019 pneumococcal polysaccharide vaccine, 23 valent Polina Quezada Other [facility] Payers Date Payer Category Payer Self-pay 1957 Medicare [id number] 1950 Unknown [id number] 2.16.8 40.1.540192.3.579.2.647 1950 Unknown [id number] 2.16.8 40.1.794552.3.579.2.647 1950 Unknown [id number] 2.16.84 0.1.400287.3.579.2.593 1950 Unknown [id number] 2.16.84 0.1.583564.3.579.2.593 1950 Unknown [id number] 2.16.8 40.1.399486.3.579.2.173 1950 Unknown [id number] 2.16.8 40.1.032214.3.579.2.1286 1950 Unknown [id number] 2.16.8 40.1.844550.3.579.2.1286 1952 Unknown [id number] 2.16.8 40.1.239248.3.579.2.1286 1950 Unknown [id number] 2.16.8 40.1.366550.3.579.2.1286 1952 Unknown [id number] 2.16.8 40.1.464872.3.579.2.1286 1952 Unknown [id number] 2.16.8 40.1.043057.3.579.2.1286 1952 Unknown [id number] 2.16.8 40.1.291433.3.579.2.128 1952 Unknown [id number] 2.16.8 40.1.392952.3.579.2.1286 1952 Unknown [id number] 2.16.84 0.1.456105.3.579.2.128 1952 Unknown [id number] 2.16.84 0.1.001522.3.579.2.1285 1952 Unknown [id number] 2.16. 840.1.336357.3.579.2.175 1952 Unknown [id number] 2.16.8 40.1.992802.3.579.2.1286 1952 Unknown [id number] 2.16.8 40.1.942012.3.579.2.1285 1952 Unknown [id number] 2.16.8 40.1.316347.3.579.2.1286 1952 Unknown [id number] 2.16.8 40.1.636862.3.579.2.128 1952 Unknown [id number] 2.16.8 40.1.226709.3.579.2.1286 1952 Unknown [id number] 2.16.8 40.1.927420.3.579.2.128 1952 Unknown [id number] 2.16.8 40.1.083984.3.579.2.128 1952 Unknown [id number] 2.16.8 40.1.860247.3.579.2.128 1952 Unknown [id number] 2.16.8 40.1.477934.3.579.2.1286 1952 Unknown [id number] 2.16.8 40.1.468941.3.579.2.1286 1952 Unknown [id number] 2.16.8 40.1.172529.3.579.2.128 1952 Unknown [id number] 2.16.8 40.1.231769.3.579.2.1286 1952 Unknown [id number] 2.16.8 40.1.353961.3.579.2.128 1952 Unknown [id number] 2.16.8 40.1.674709.3.579.2.1286 1952 Unknown [id number] 2.16.8 40.1.213680.3.579.2.128 1952 Unknown [id number] 2.16.8 40.1.292969.3.579.2.1286 1952 Unknown [id number] 2.16.8 40.1.935742.3.579.2.128 1952 Unknown [id number] 2.16.8 40.1.228842.3.579.2.1286 Medicare [id number] Medicare [id number] 2.16.8 40.1.686937.19 Unknown Unknown [id number] 2.16.8 40.1.052058.3.579.2.531 Unknown [id number] 2.16.8 40.1.515365.3.579.2.531 Social History Date Type Detail Facility Unknown if ever smoked [facility] Other Sex Assigned At Sex Assigned At Bir th [facility] Other Start: 09-26-2023 End: 09-26-2023 Tobacco smoking status NHIS Ex-smoker (finding) [facility] Start: 1950 Sex Assigned At Male F [facility] Evaluation note 01-23-2023 Note Date & Type Note Facility 01-23-2023 Evaluation note Encounter Date Diagnosis Assessment Notes Jan, Chronic obstructive pulmonary disease, unspecified (ICD-10 - J44.9) Pt presently stable and compliant with oxygen. Discussed diagnosis with patient. Check CXR - not doing well. Does not see pulmonology and declines referral. Will treat based on CXR results. Medication profile and possible SE reviewed with patient. Take as directed. Continue Albuterol inhaler PRN sob, wheezing, cough. Notify office if not improving or worsening. Patient verbalizes understanding and agrees to treatment plan. Jan, Weakness (ICD-10 - R53.1) Assess labs. Multiple possible causes. Encouraged healthy diet, exercise, quitting smoking. Jan, Weight loss (ICD-10 - R63.4) as above Jan, Essential (primary) hypertension (ICD-10 - I10) BP low. D/c med. Assess for dehydration w labs. Sent directly to hospital for tests. 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 [facility] Work Phone: History general Narrative - Reported Note Date & Type Note Facility History general Narrative - Reported Type Medical History Essential (primary) hypertension Medical History Chronic obstructive pulmonary di sease Medical History Syncope and collapse Surgical History right bicep reattachment 1997 Surgical History SUBDURAL HEMATOMA 1994 Surgical History FLUID AROUND HEART - PNEUMONIA 2016 Surgical History HERNIATED DISC X2 2007 Hospitalization History SEE SURGICAL HX [facility] Other Summary Purpose Family History No Family History Records Found Relationship Condition Age at Onset Recorded Date/T tamiko father Unknown Not Specified Unknown Relationship Condition Age at Onset Recorded Date/T tamiko father Unknown mother Unknown Advance Directives No Advanced Directives Records Found Advance Directive Response Recorded Date/ Time Advance Directives No September 25 1:56pm Advance Directive Response Recorded Date/ Time Advance Directives No September 25 12:56pm Hospital Course Note [id number] Admitted: 05/21/2018 Discharged: 05/24/2018 Date of : 1950 Physician: Kahlil Gay MD DISCHARGE SUMMARYPRIMARY DIAGNOSES:1. Acute hypoxic respiratory failure with high suspicion for chronic obstructive pulmonary disease.2. Echocardiogram demonstrating severe right heart failure and tricuspid regurg, status post right heart catheterization, which showed no significant right-sided elevated pressures, did have mild pulmonary hypertension.3. Right heart failure.4. Microcytic iron deficiency anemia with suspected gastrointestinal losses.5. Hypomagnesemia.6. Essential hypertension.7. Tobacco dependence.8. History of alcohol abuse.9. Hypoalbuminemia with protein calorie malnutrition.10. History of cardiac tamponade 2015.11. Hypovolemic hyponatremia.HOSPITAL COURSE: The patient is a 67-year-old male, significant pastmedical history as above, who presented from [place] per the Cardiologyrecommendati (more content not included)... Note Patient: DAMI ALCALA RN: [birth year] Age: 69 years Sex: Male : 1950 Associated Diagnoses: None Author: Miles Damon JR, DO Postoperative Information Post Operative Note: Post Anesthesia Care Unit. Anesthetic utilized: General, Monitored anesthesia care. Health Status Allergies: Allergic Reactions (Selected) No Known Allergies No Known Medication Allergies Current medications: (Selected) Prescriptions Prescribed [place] 325 mg-5 mg oral tablet: 1 tab(s), Oral, q4hr for pain, 20 tab(s), Refill(s) 0, [id number], 178, cm, 07/02/19 15:51:00 EST, Height/Length Measured, 86.8, kg, 07/02/19 15:51:00 EST, Weight Measured Documented Medications Documented Metoprolol tartrate 25 mg Tab: 25 mg = 1 tab(s), Oral, BID, High blood pressure Multivitamin, Therapeutic w/ Minerals: 1 tab(s), Oral, Daily, Refill(s) 0, Prophylaxis Oxygen - for Home: 2 L/min, Nasal Cannula, Daily Shortness of breath or wheezing, Refill(s) 0, Oxygen - Continuous or Nocturnal Diagnosis: Por (more content not included)... Procedure Findings Note Patient: DAMI ALCALA RN: [birth year] Age: 69 years Sex: Male : 1950 Associated Diagnoses: None Author: Miles Damon JR, DO Postoperative Information Post Operative Note: Post Anesthesia Care Unit. Anesthetic utilized: General, Monitored anesthesia care. Health Status Allergies: Allergic Reactions (Selected) No Known Allergies No Known Medication Allergies Current medications: (Selected) Prescriptions Prescribed [place] 325 mg-5 mg oral tablet: 1 tab(s), Oral, q4hr for pain, 20 tab(s), Refill(s) 0, [id number], 178, cm, 07/02/19 15:51:00 EST, Height/Length Measured, 86.8, kg, 07/02/19 15:51:00 EST, Weight Measured Documented Medications Documented Metoprolol tartrate 25 mg Tab: 25 mg = 1 tab(s), Oral, BID, High blood pressure Multivitamin, Therapeutic w/ Minerals: 1 tab(s), Oral, Daily, Refill(s) 0, Prophylaxis Oxygen - for Home: 2 L/min, Nasal Cannula, Daily Shortness of breath or wheezing, Refill(s) 0, Oxygen - Continuous or Nocturnal Diagnosis: Por (more content not included)... 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 Additional Source Comments (unrecognized sect ion and content) No Status Records FoundNo Status Records FoundNo Status Records FoundNo Status Records FoundNo Status Records FoundNo Status Records FoundNo Status Records FoundNo Status Records Found INFORMATION SOURCE (unrecogn ized section and content) DATE CREATED AUTHOR 06/13/2018 [facility] DATE CREATED AUTHOR AUTHOR'S ORGANIZ ATION 01/13/2020 [facility] DATE CREATED AUTHOR AUTHOR'S ORGANIZ ATION 05/10/2021 [facility] DATE CREATED AUTHOR AUTHOR'S ORGANIZ ATION 03/27/2023 [facility] DATE CREATED AUTHOR AUTHOR'S ORGANIZ ATION 08/10/2023 [facility] DATE CREATED AUTHOR AUTHOR'S ORGANIZ ATION 08/19/2023 [facility] DATE CREATED AUTHOR AUTHOR'S ORGANIZ ATION 08/27/2023 [facility] DATE CREATED AUTHOR AUTHOR'S ORGANIZ ATION 04/13/2024 [facility] REASON FOR VISIT (unrecogniz ed section and content) [facility] Teams (unrecognized sec tion and content) Team Status: Active Member Role Status Dates Polina Quezada MD Primary Care Provider Active Team Status: Inactive Member Role Status Dates Polina Quezada MD Primary Care Provide r, Attending Provider Active Start: September 26, 2023 End: September 26, 2023 Team Status: Inactive Member Role Status Dates Polina Quezada MD Primary Care Provide r, Attending Provider Active Start: January 02, 2024 End: January 02, 2024 Team Status: Inactive Member Role Status Dates Polina Quezada MD Primary Care Provider Active Start: March 13, 2024 End: March 13, 2024 Clemente Fragoso MD Attending Provider Active St art: March 13, 2024 End: March 13, 2024 Team Status: Inactive Member Role Status Shantell Quezada MD Primary Care Provide r, Attending Provider Active Start: April 03, 2024 End: April 03, 2024 Team Status: Active Member Role Status Dates Polina Quezada MD Primary Care Provide r, Attending Provider Active Start: April 03, 2024 Team Status: Inactive Member Role Status Dates Polina Quezada MD Primary Care Provider Active Start: April 09, 2024 End: April 09, 2024 Clemente Fragoso MD Attending Provider Active St art: April 09, 2024 End: April 09, 2024 Goals (unrecognized section and content) Goals may be documented in a n alternate section FOR RECORDS PERTAINING TO PATIENTS WHO ARE OR HAVE BEEN ENROLLED IN A CHEMICAL DEPENDENCY/SUBSTANCEABUSE PROGRAM, SOME INFORMATION MAY BE OMITTED. This clinical summary was aggregated from multiple sources. Caution should be exercised in using it in the provision of clinical care. This summary normalizes information from multiple sources, and as a consequence, information in this document may materially change the coding, format and clinical context of patient data. In addition, data may be omitted in some cases. CLINICAL DECISIONS SHOULD BE BASED ON THE PRIMARY CLINICAL RECORDS. [facility] provides no warranty or guarantee of the accuracy or completeness of information in this document.
== END 2024-04-25 09:04 | disposition home or self-care (01) ==
LOC: HEMC 07:46
PROVIDERS: Visit Provider Internal Medicine Hematology & Oncology
DX: D50.9 Iron deficiency anemia, unspecified (principal); Z96.641 Presence of right artificial hip joint; Z87.891 Personal history of nicotine dependence; D64.9 Anemia, unspecified; K90.9 Intestinal malabsorption, unspecified; J44.9 Chronic obstructive pulmonary disease, unspecified; Z99.81 Dependence on supplemental oxygen; Z86.73 Personal history of transient ischemic attack (TIA), and cerebral infarction without residual deficits
CPT/HCPCS: G0463

== ENCOUNTER 2024-04-29 07:31 | Outpatient (RCR) | payer MEDICARE, SELFPAY ==
[2024-04-29 10:28] VITALS: BP 109/56; PULSE 100; TEMP 36.6; O2SAT 95
[2024-04-29] MEDS: ACETAMINOPHEN 500 MG TABLET 1000 MG PO (10:38)
[2024-04-29] MEDS: diphenhydrAMINE HCL 25 MG in 0.9 % SODIUM CHLORIDE 100 ML 301.5 MG IV (10:39)
--- NOTE | 2024-04-29 10:43 | PC.NURSE ---
iv benadryl initiated over 20 mins. tylenol 1000 mg po as ordered, reclined in recliner with pillow and blanket. Explained procedure for giving pre-meds/s/s of reaction to report etc. verbalizies understanding.
[2024-04-29] MEDS: HYDROCORTISONE SODIUM SUCC/PF 100 MG in 0.9 % SODIUM CHLORIDE 100 ML 300 MG IV (11:04)
[2024-04-29] MEDS: IRON DEXTRAN COMPLEX 100 MG/2 ML VIAL 25 MG IV (11:26)
[2024-04-29 13:13] VITALS: BP 159/84; PULSE 98; TEMP 36.9; O2SAT 95
--- NOTE | 2024-04-29 13:14 | PC.NURSE ---
Tolerating infusion without any s/s of reaction. dozes on and off reclined in recliner.
== END 2024-05-04 23:59 | disposition home or self-care (01) ==
LOC: HEMC 07:31
PROVIDERS: Visit Provider Internal Medicine Hematology & Oncology
DX: D50.9 Iron deficiency anemia, unspecified (principal); K90.9 Intestinal malabsorption, unspecified; D64.9 Anemia, unspecified
CPT/HCPCS: 96365; 96366; 96367; 96376; J1200; J1720; J1750

== ENCOUNTER 2024-07-29 07:39 | Outpatient (RCR) | payer MEDICARE, SELFPAY ==
[2024-07-23 15:03] LABS: Basophils Absolute Auto 0.1 10^3/uL (0.0-0.1); Eosinophils Absolute Auto 0.3 10^3/uL (0.0-0.7); Eosinophils Percent Auto 2.7 % (0.9-7.0); Hematocrit 31.2 % (42.0-54.0); Immature Granulocytes Abs Auto 0.05 10^3/uL (0.00-0.03); Immature Granulocytes Pct Auto 0.5 % (0.0-0.5); Lymphocytes Absolute Auto 0.9 10^3/uL (1.2-3.8); Lymphocytes Percent Auto 10.1 % (20.5-60.0); Mean Corpuscular Hemoglobin 24.1 pg (25.9-34.0); Mean Corpuscular Volume 83.6 fL (80.0-94.0); Mean Platelet Volume 10.8 fL (9.5-13.5); Monocytes Absolute Auto 0.7 10^3/uL (0.3-0.8); Monocytes Percent Auto 7.6 % (1.7-12.0); Neutrophils Absolute Auto 7.1 10^3/uL (1.4-6.5); Neutrophils Percent Auto 78.1 % (43.0-75.0); Platelet Count 365 10^3/uL (150-450); Red Blood Count 3.73 10^6/uL (4.70-6.10); Red Cell Distribution Width 19.3 % (11.0-15.0); White Blood Count 9.1 10^3/uL (4.0-11.0)
[2024-07-23 15:10] LABS: Erythrocyte Sedimentation Rate 94 mm/hr (<=20)
[2024-07-23 15:19] LABS: Mean Corpuscular HGB Conc 28.8 g/dL (29.9-35.2)
[2024-07-23 15:21] LABS: Percent Iron Saturation 7.7 %; Reticulocyte Pct Auto 2.06 % (0.60-3.10)
[2024-07-23 15:23] LABS: Alanine Aminotransferase 26 U/L (16-63); Albumin Globulin Ratio 0.7; Albumin Level 3.1 g/dL (3.4-5.0); Alkaline Phosphatase 130 U/L (46-116); Anion Gap 9.2; Aspartate Amino Transferase 25 U/L (15-37); BUN Creatinine Ratio 7.4; Bilirubin Total 0.2 mg/dL (0.2-1.0); C Reactive Protein 2.07 mg/dL (<=0.50); Calcium 9.3 mg/dL (8.5-10.1); Carbon Dioxide 31.5 mmol/L (21.0-32.0); Chloride 100 mmol/L (98-107); Estimated GFR (African America >60 (>=60 mL/min/1.73m^2); Estimated GFR (Non-African Ame 59 (>=60 mL/min/1.73m^2); Globulin 4.5 g/dL; Glucose 130 mg/dL (74-106); Potassium 3.7 mmol/L (3.5-5.1); Sodium 137 mmol/L (136-145); Total Protein 7.6 g/dL (6.4-8.2)
[2024-07-23 15:33] LABS: Lactate Dehydrogenase 143 U/L (85-227)
[2024-07-24 08:09] LABS: Vitamin B12 619 pg/mL (232-1245)
[2024-07-29 09:12] VITALS: BP 1323/64; PULSE 94; TEMP 37; O2SAT 93
[2024-07-29] MEDS: diphenhydrAMINE HCL 25 MG in 0.9 % SODIUM CHLORIDE 100 ML 301.5 MG IV (09:35)
[2024-07-29] MEDS: ACETAMINOPHEN 500 MG TABLET 1000 MG PO (09:35)
[2024-07-29] MEDS: HYDROCORTISONE SODIUM SUCC/PF 100 MG in 0.9 % SODIUM CHLORIDE 100 ML 306 MG IV (10:13)
[2024-07-29] MEDS: IRON DEXTRAN COMPLEX 100 MG/2 ML VIAL 25 MG IVP (10:16)
[2024-07-29] MEDS: 0.9 % SODIUM CHLORIDE 250 ML 10 ML IV (10:27)
--- NOTE | 2024-07-29 13:24 | PC.NURSE ---
1200 To Bathroom, wheeled in recliner, voids qs, returned to infusion bay. offers no complaints, tolerating infusion without any s/s of reaction. Declines any meal at this time. 1320 reclined in chair, respirations with ease, eyes closed. IV infusing without any s/s of inflitration or reaction
[2024-07-29 14:55] VITALS: BP 169/70; PULSE 78; TEMP 36.3; O2SAT 93
== END 2024-07-30 08:08 | disposition home or self-care (01) ==
LOC: HEMC 07:39
PROVIDERS: Visit Provider Internal Medicine Hematology & Oncology
DX: D50.9 Iron deficiency anemia, unspecified (principal); K90.9 Intestinal malabsorption, unspecified; D64.9 Anemia, unspecified; Z96.641 Presence of right artificial hip joint; Z87.891 Personal history of nicotine dependence; Z86.73 Personal history of transient ischemic attack (TIA), and cerebral infarction without residual deficits; J44.9 Chronic obstructive pulmonary disease, unspecified; Z99.81 Dependence on supplemental oxygen
CPT/HCPCS: 36415; 80053; 82607; 82728; 83540; 83550; 83615; 85025; 85045; 85652; 86140; 96365; 96366; 96367; 96375; 96376; G0463; J1200; J1720; J1750

== ENCOUNTER 2024-08-01 13:00 | Outpatient (OUT) | payer MEDICARE, SELFPAY ==
--- NOTE | 2024-08-01 13:59 | RT_ITS ---
The [facility] Test Date: 2024-08-01 Pat Name: DAMI ALCALA Department: Room: - Gender: Male Billing Typist: Sam Barrow RRT : 1950 Requested By: Clifton Spaulding Order Number: [id number] Reading MD: Clifton Spaulding Interpretive Statements Pulmonary function testing was completed according to ATS criteria. Findings were considered accurate and reproducible, with exception of FVC which did not meet ATS standards. Both pre- and post-bronchodilator values utilized for spirometry. Spirometry (based on pre-bronchodilator values): -FEV1/FVC: Reduced @ 43% -FEV1: Severely reduced @ 38% -FVC: Reduced @ 64% -There is a positive bronchodilator response in FVC. Lung volumes by plethysmography (based on pre-bronchodilator values): -RV: Increased @ 157% -TLC: Normal @ 94% Diffusion capacity: -DLCO: Severe reduction @ 45% when corrected for Hb 9g/dL Comparison from 06/20/2018: -Slight improvement from FEV1 30% and FVC 54% -Slight improvement in RV from 157%, no significant change in TLC from 104% -Slight improvement in DLCO from 40% Impressions: -Severe obstructive pattern on spirometry with a positive bronchodilator response. Increased RV suggests air trapping. Severe diffusion impairment. Mild anemia given Hb 9g/dL. Overall study is compatible with COPD with a bronchodilator response vs. asthma-COPD overlap. When compared with prior PFT 06/20/2028, there is slight improvement. Clinical correlation required. Electronically Signed On 08-07-2024 12:01:32 EST by Clifton Spaulding
[2024-08-01] MEDS: ALBUTEROL SULFATE 2.5 MG/3 ML VIAL NEB IH (14:00)
== END 2024-08-01 13:01 | disposition home or self-care (01) ==
LOC: CARD 13:00
PROVIDERS: Visit Provider Internal Medicine
DX: J43.2 Centrilobular emphysema (principal)
CPT/HCPCS: 94060; 94726; 94729

== ENCOUNTER 2024-08-02 07:40 | Outpatient (OUT) | payer MEDICARE, SELFPAY ==
--- NOTE | 2024-08-02 07:44 | CT_ITS ---
The [address] [address] Patient Name: DAMI ALCALA MRN: [id number] date: 1950 Sex: M Assigned Patient Location: CT Current Patient Location: CT Accession/Order Number: [id number] Exam Date: 08/02/2024 10:52 Report Date: 08/02/2024 11:23 At the request of: ISAIAH MENEZES MD Procedure: CT chest w con CT CHEST, ABDOMEN AND PELVIS WITH CONTRAST CLINICAL DATA: Chronic iron deficiency anemia COMPARISON: CT chest 05/30/2019 Spiral images were obtained through the chest, abdomen and pelvis following oral and 100 mL of Omnipaque 300. Images of the chest were reviewed using both narrow and wide window settings. This CT exam was performed using one or more following dose reduction techniques: Automated exposure control, adjustment of the mA and/or kV according to patient size, or use of iterative reconstruction technique. The heart is top normal in size. No pericardial effusion is seen. There is minor coronary artery disease. No aortic aneurysm or dissection is seen. There is atherosclerotic plaque at the aortic arch. There is an aberrant right subclavian artery. There are few tiny nonpathologic mediastinal and hilar lymph nodes. There are calcified hilar granulomas. There is obstructive lung disease. There is a developing cluster of spiculated nodular densities within the right upper lobe measuring up to a centimeter in size. There is still an oval 8 mm nodular density within the right lower lobe abutting the major fissure. A 9 mm irregular nodular symmetry is seen within the posterior left upper lobe (axial image 41). Minor interstitial thickening as well as areas of atelectasis or scarring are noted at both lung bases. No pleural effusion or pneumothorax is identified. There is minor degenerative change at the spine. There is a rounded sclerotic focus within the lower thoracic vertebral body which was also present previously. No calcified gallstones are identified. No intrahepatic masses are seen. The spleen shows no acute findings. There are cystic areas at the neck and tail pancreas measuring up to 16 mm in size. No adrenal nodularity is seen. The renal nephrograms are symmetric. There are multiple bilateral renal cysts, the largest on the right measuring 4.6 cm and the left 4.3 cm in size. There is also an exophytic hypodensity at the lower pole the right kidney measuring 2.5 cm in size with Hounsfield measurements higher than simple fluid. Its possible hemorrhagic. There is a small stone at the lower pole of the right kidney. No hydronephrosis is present. Atherosclerotic plaque involving the aorta, iliac and visceral arteries. There are few small nonpathologic lymph nodes. No ascites is seen. No dilated small bowel loops are visualized. There is mild stool along the colon. Dextroscoliotic curvature and degenerative changes are present at the spine. There are similar wedge deformity at L2, uncertain chronicity. Images through the pelvis show no dilated small bowel loops. No appendiceal inflammation is seen. There is stool at the distal colon. There are sigmoid diverticula, without associated active inflammation. The urinary bladder shows no obvious abnormalities though there is some streak artifact from patient's right hip prosthesis. No ascites is identified. There is additional atherosclerotic disease. There is degenerative change at the SI joints left hip. There is a subcutaneous fluid collection in the right buttock region measuring 6 to [address]/CT chest w con IMPRESSION: OBSTRUCTIVE LUNG DISEASE. BILATERAL PULMONARY NODULARITY. THERE ARE A COUPLE AREAS WHICH WERE SEEN PREVIOUSLY THOUGH THERE IS ALSO A CLUSTER OF IRREGULAR NODULES AT THE RIGHT UPPER LOBE. FOLLOW-UP WILL BE NEEDED TO EXCLUDE ANY POSSIBILITY OF NEOPLASM. ATELECTASIS AND/OR SCARRING. PANCREATIC CYSTIC LESIONS. THERE ARE NO PRIORS FOR CORRELATION. MULTIPLE RENAL HYPODENSITIES, LIKELY CYSTS THOUGH THERE IS ONE WHICH IS INDETERMINANT AT THE LOWER POLE OF THE RIGHT KIDNEY. FOLLOW-UP ULTRASOUND COULD BE CONSIDERED. ATHEROSCLEROTIC DISEASE. DIVERTICULOSIS. RIGHT BUTTOCK SUBCUTANEOUS FLUID COLLECTION. PATIENT DOES HAVE A RIGHT HIP PROSTHESIS IS UNCERTAIN IF THIS IS RELATED TO SURGERY. CORRELATION IS SUGGESTED. Impression dictated by: Madeleine Ordonez M.D.08/02/2024 11:23 AM Dictation Location: [employer] Electronically authenticated by: [id number] Y Date: 08/02/2024 11:23
--- NOTE | 2024-08-02 07:44 | CT_ITS ---
The [address] [address] Patient Name: DAMI ALCALA MRN: [id number] date: 1950 Sex: M Assigned Patient Location: CT Current Patient Location: CT Accession/Order Number: [id number] Exam Date: 08/02/2024 10:52 Report Date: 08/02/2024 11:23 At the request of: ISAIAH MENEZES MD Procedure: CT chest w con CT CHEST, ABDOMEN AND PELVIS WITH CONTRAST CLINICAL DATA: Chronic iron deficiency anemia COMPARISON: CT chest 05/30/2019 Spiral images were obtained through the chest, abdomen and pelvis following oral and 100 mL of Omnipaque 300. Images of the chest were reviewed using both narrow and wide window settings. This CT exam was performed using one or more following dose reduction techniques: Automated exposure control, adjustment of the mA and/or kV according to patient size, or use of iterative reconstruction technique. The heart is top normal in size. No pericardial effusion is seen. There is minor coronary artery disease. No aortic aneurysm or dissection is seen. There is atherosclerotic plaque at the aortic arch. There is an aberrant right subclavian artery. There are few tiny nonpathologic mediastinal and hilar lymph nodes. There are calcified hilar granulomas. There is obstructive lung disease. There is a developing cluster of spiculated nodular densities within the right upper lobe measuring up to a centimeter in size. There is still an oval 8 mm nodular density within the right lower lobe abutting the major fissure. A 9 mm irregular nodular symmetry is seen within the posterior left upper lobe (axial image 41). Minor interstitial thickening as well as areas of atelectasis or scarring are noted at both lung bases. No pleural effusion or pneumothorax is identified. There is minor degenerative change at the spine. There is a rounded sclerotic focus within the lower thoracic vertebral body which was also present previously. No calcified gallstones are identified. No intrahepatic masses are seen. The spleen shows no acute findings. There are cystic areas at the neck and tail pancreas measuring up to 16 mm in size. No adrenal nodularity is seen. The renal nephrograms are symmetric. There are multiple bilateral renal cysts, the largest on the right measuring 4.6 cm and the left 4.3 cm in size. There is also an exophytic hypodensity at the lower pole the right kidney measuring 2.5 cm in size with Hounsfield measurements higher than simple fluid. Its possible hemorrhagic. There is a small stone at the lower pole of the right kidney. No hydronephrosis is present. Atherosclerotic plaque involving the aorta, iliac and visceral arteries. There are few small nonpathologic lymph nodes. No ascites is seen. No dilated small bowel loops are visualized. There is mild stool along the colon. Dextroscoliotic curvature and degenerative changes are present at the spine. There are similar wedge deformity at L2, uncertain chronicity. Images through the pelvis show no dilated small bowel loops. No appendiceal inflammation is seen. There is stool at the distal colon. There are sigmoid diverticula, without associated active inflammation. The urinary bladder shows no obvious abnormalities though there is some streak artifact from patient's right hip prosthesis. No ascites is identified. There is additional atherosclerotic disease. There is degenerative change at the SI joints left hip. There is a subcutaneous fluid collection in the right buttock region measuring 6 to [address]/CT abdomen pelvis w con IMPRESSION: OBSTRUCTIVE LUNG DISEASE. BILATERAL PULMONARY NODULARITY. THERE ARE A COUPLE AREAS WHICH WERE SEEN PREVIOUSLY THOUGH THERE IS ALSO A CLUSTER OF IRREGULAR NODULES AT THE RIGHT UPPER LOBE. FOLLOW-UP WILL BE NEEDED TO EXCLUDE ANY POSSIBILITY OF NEOPLASM. ATELECTASIS AND/OR SCARRING. PANCREATIC CYSTIC LESIONS. THERE ARE NO PRIORS FOR CORRELATION. MULTIPLE RENAL HYPODENSITIES, LIKELY CYSTS THOUGH THERE IS ONE WHICH IS INDETERMINANT AT THE LOWER POLE OF THE RIGHT KIDNEY. FOLLOW-UP ULTRASOUND COULD BE CONSIDERED. ATHEROSCLEROTIC DISEASE. DIVERTICULOSIS. RIGHT BUTTOCK SUBCUTANEOUS FLUID COLLECTION. PATIENT DOES HAVE A RIGHT HIP PROSTHESIS IS UNCERTAIN IF THIS IS RELATED TO SURGERY. CORRELATION IS SUGGESTED. Impression dictated by: Madeleine Ordonez M.D.08/02/2024 11:23 AM Dictation Location: [employer] Electronically authenticated by: [id number] Y Date: 08/02/2024 11:23
--- OUTSIDE RECORDS SUMMARY | 2024-08-02 07:46 | XMS_ITS | CCD ---
Author Organization [facility] Care Team Providers Care Cosmetics Machine Operator Name Role Phone PHYSICIAN, DEFAULT Unavailable Unavailable PHYSICIAN, DEFAULT Unavailable Unavailable ALI, GUILLORY Unavailable Unavailable ALI, GUILLORY Unavailable Unavailable POLINA QUEZADA Unavailable Unavailable POLINA QUEZADA Unavailable Unavailable DC Unavailable Unavailable ELTAHAWY, EHAB A Unavailable Unavailable DC Unavailable Unavailable ALI, GUILLORY Unavailable Unavailable NACHO, DR GUILLAUME Zavaleta Consulting Unavailable PILAR, DR POLINA Orellana Primary Care Unavailable NACHO, DR GUILLAUME Zavaleta Attending Unavailable NACOH, DR GUILLAUME Zavaleta Admitting Unavailable Kyle Max [...] Unavail able QUEZADA, POLINA Primary Care Unavailable DUNG PETERSONRACYNANYCASH Consulting Unavail able MIGUEL A MEAD Consulting Unavailable ZAYNAB GUNN Consulting Unavailable MONTRELL OWENS Consulting Unavailabl e SAMIRA, BUBBA Consulting Unavailable PETER GAY Consulting Unavailable MARGARITA MARIE Consulting Unavailable BRANDON VAZQUEZ Consulting Unavailable NICHOLAS TOWNSENDAFA Consulting Unavailable YENNI VELASCO Admitting Unavailable YENNI VELASCO Attending Unavailable MAT MATHEW M Referring Unavailable DAY, SP B Primary [...] Referring Unavailable LIANET SNELL Referring Unavailable DAY, SP B Primary Care Unavailable GLO LAKE Attending [...] Care Provider MD Clemente Fragoso Attending Provider [phone] MD Polina Quezada Primary Care Provider MD Clemente Fragoso Attending Provider [phone] Polina Quezada Primary Care Unavailable Clemente Fragoso Admitting Unavailable Clemente Fragoso Attending Unavailable Polina Quezada [...] Active MCG PO September 26, 2023 12:00am Kwqrzpbizny-Toyqwxckp-Mns anter (15 sources) Anticholinergic, Corticosteroid, beta2-Adrenergic Agonist Start: 02-02-2024 Fluticasone-Umeclidi n-Vi lanter (Trelegy Ellipta) 100-62.5-25 mcg blister with device Active 1 INH INHALATION Daily 60 February 02, 2024 9:07pm Start: 02-02-2024 Fluticasone-Um eclidin-Vilanter (Trelegy Ellipta) 100-62.5-25 mcg blister with device Active 1 INH INHALATION Daily 60 February 02, 2024 10:07pm Start: 10-18-2023 End: 02-02-2024 Tiknwwpgvfm-Gccgtphff-Evoqde er (Trelegy Ellipta) 100-62.5-25 mcg blister with device Discontinued 1 INH INHALATION Daily 60 October 18, 2023 11:42am February 02, 2024 9:07pm Start: 10-18-2023 End: 02-02-2024 Nvpahojqifz-Rsiriqzyu-Ilsxit er (Trelegy Ellipta) 100-62.5-25 mcg blister with device Discontinued 1 INH INHALATION Daily 60 October 18, 2023 12:42pm February 02, 2024 10:07pm Start: 10-18-2023 Fluticasone-Um eclidin-Vilanter (Trelegy Ellipta) 100-62.5-25 mcg blister with device Active 1 INH INHALATION Daily 60 October 18, 2023 12:42pm Start: 09-25-2023 End: 10-18-2023 take 1 puff(s) by mouth once daily Stqtseddglv-Kdggjuuvp-Akzgagub (Trelegy Ellipta) 100-62.5-25 mcg blister with device Discontinued INHALATION September 24, 2023 11:00pm October 18, 2023 11:44am FreeTextSig: INHALE 1 PUFF BY MOUTH DAILY; Note: Source Status: Taking; Refills: 3; Qty: 60 Each; Provider: Pilar Brewer ( ) Start: 09-25-2023 End: 10-18-2023 take 1 puff(s) by mouth once daily Byickympdjg-Zdpmdagul-Ewscebxf (Trelegy Ellipta) 100-62.5-25 mcg blister with device Discontinued INHALATION September 25, 2023 12:00am October 18, 2023 12:44pm FreeTextSig: INHALE 1 PUFF BY MOUTH DAILY; Note: Source Status: Taking; Refills: 3; Qty: 60 Each; Provider: Pilar Brewer ( ) Start: 09-25-2023 take 1 puff(s) by mouth once daily Rbmmrijlmsw-Eyzbuhckv-Azdzhcfl (Trelegy Ellipta) 100-62.5-25 mcg blister with device [...] puff(s) by inhalation every eight hours Ipratropium Vanduser Active 2 PUFF INHALATION Every 8 hours [...] Brewer ( ) take 1 capsule by [facility] once daily Tamsulosin HCl 0.4 MG TAKE [...] January 02, 2024 10:07am polyethylene glycol 3350 23646 mg powder for oral solution (5 sources) [...] disease (1 source) Atherosclerotic heart disease of [place] coronary artery without angina pectoris; Translations: [ASHD [place] CA W/O ANGINA PECTORIS] Onset: 05-04-2021 Chronic [...] Onset: 04-29-2021 Episodic Other aftercare (1 source) 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; Translations: [[facility] CURRENT USE OF ASPIRIN] Onset: 05-04-2021 Episodic Other aftercare (1 source) Other terminal manager (current) drug therapy; Translations: [OTH [facility] CURRENT DRUG THERAPY] Onset: 05-04-2021 Episodic Other [...] rate; Translations: [Elevated erythrocyte sedimentation rate] Onset: 04-09-2024 Episodic Other hereditary and degenerative nervous system [...] [Catalytic activity/Vol] 27 U/L Normal 14-82 [facility] Comment on above: Result Comment: Perf ormed at: - [facility] [address] [id number] Sample Case Porter: Fareed Santos PhD, Phone: [phone] PERFORMED BY: [place] [address] PATHOLOGIST KITCHENWHERE MAKER ROBERT DAVIS M.D. Performed By: #### C BC, FE and TIBC, ARLENE #### [place] [address] [place] #### LAURA #### [facility] , Automated basophil %Ordered By: Clemente Fragoso on 04-09-2024 Basophils/100 WBC (Bld) 1.2 % Normal . [facility] Comment on above: Performed By: #### C BC, FE and TIBC, ARLENE #### [place] [address] [place] #### LAURA #### [facility] , Automated basophil countOrde red By: Clemente Fragoso on 04-09-2024 Basophils (Bld) [#/Vol] 0.1 10*3/uL Normal 0.0-0.2 [facility] Comment on above: Result Comment: PERF ORMED BY: [place] [address] PATHOLOGIST [employer]ITCHEN[employer] MAKER ROBERT DAVIS M.D. Performed By: #### C BC, FE and TIBC, ARLENE #### [place] [address] [place] #### LAURA #### [facility] , Automated blood monocyte cou ntOrdered By: Clemente Fragoso on 04-09-2024 Monocytes (Bld) [#/Vol] 0.9 10*3/uL High 0.0-0.8 [facility] Comment on above: Performed By: #### C BC, FE and TIBC, ARLENE #### [facility] [address] [place] [address] [place] #### LAURA #### [facility] , Automated eosinophil %Ordere d By: Clemente Fragoso on 04-09-2024 Eosinophils/100 WBC (Bld) 2.1 % Normal . [facility] Comment on above: Performed By: #### C BC, FE and TIBC, ARLENE #### [facility] [address] [place] [address] [place] #### LAURA #### [facility] , Automated eosinophil countOr dered By: Clemente Fragoso on 04-09-2024 Eosinophils (Bld) [#/Vol] 0.2 10*3/uL Normal 0.0-0.45 [facility] Comment on above: Performed By: #### C BC, FE and TIBC, ARLENE #### [place] [address] [place] #### LAURA #### [facility] , Automated monocyte %Ordered By: Clemente Calixrob on 04-09-2024 Monocytes/100 WBC (Bld) 9.8 % Normal . [facility] Comment on above: Performed By: #### C BC, FE and TIBC, ARLENE #### [place] [address] [place] #### LAURA #### [facility] , Automated neutrophil %Ordere d By: Clemente Calixrob on 04-09-2024 Neutrophils/100 WBC (Bld) 77.9 % Normal . [facility] Comment on above: Performed By: #### C BC, FE and TIBC, ARLENE #### [place] [address] [place] #### LAURA #### [facility] , Complete Blood Count Auto Di ffon 04-09-2024 Mean Corpuscular HGB Conc 30.7 g/dL Low 32.5-35.6 [facility] Comment on above: Performed By: #### C BC, FE and TIBC, ARLENE #### [place] [address] [place] #### LAURA #### [facility] , NRBC% 0.1 /100{WBC} Normal 0-0.5 [facility] Comment on above: Performed By: #### C BC, FE and TIBC, ARLENE #### [place] [address] [place] #### LAURA #### [facility] , Erythrocyte distribution wid th [Ratio] by Automated countOrdered By: Clemente Fragoso on 04-09-2024 Erythrocyte distribution width (RBC) [Ratio] 19.8 % High 12.0-14.8 [facility] Comment on above: Performed By: #### C BC, FE and TIBC, ARLENE #### [address] #### LAURA #### [facility] , Erythrocytes [#/volume] in B lood by Automated countOrdered By: Clemente Fragoso on 04-09-2024 RBC (Bld) [#/Vol] 3.38 10*6/uL Low 3.90-5.60 [facility] Comment on above: Performed By: #### C BC, FE and TIBC, ARLENE #### [address] #### LAURA #### [facility] , Ferritin [Mass/volume] in Se rum or PlasmaOrdered By: Clemente Fragoso on 04-09-2024 Ferritin [Mass/Vol] 8.4 ng/mL Low 23.9-336.2 [facility] Comment on above: Result Comment: PERF ORMED BY: [place] [address] PATHOLOGIST [employer]ITCHEN[employer] MAKER ROBERT DAVIS M.D. Performed By: #### C BC, FE and TIBC, ARLENE #### [place] [address] [place] #### LAURA #### [facility] , Hematocrit [Volume Fraction] of Blood by Automated countOrdered By: Clemente Fragoso on 04-09-2024 Hematocrit (Bld) [Volume fraction] 25.9 % Low 38.8-50.0 [facility] Comment on above: Performed By: #### C BC, FE and TIBC, ARLENE #### [place] [address] [place] #### LAURA #### [facility] , Hemoglobin [Mass/volume] in BloodOrdered By: Clemente Fragoso on 04-09-2024 Hemoglobin (Bld) [Mass/Vol] 8.0 g/dL Low 13.0-17.0 [facility] Comment on above: Performed By: #### C BC, FE and TIBC, ARLENE #### [place] [address] [place] #### LAURA #### [facility] , Iron [Mass/volume] in Serum or PlasmaOrdered By: Clemente Fragoso on 04-09-2024 Iron [Mass/Vol] 16 ug/dL Low 50-212 [facility] Comment on above: Performed By: #### C BC, FE and TIBC, ARLENE #### [place] [address] [place] #### LAURA #### [facility] , Iron and TIBC Profileon % Iron Saturation 4.1 % Low 20-50 [facility] Comment on above: Performed By: #### C BC, FE and TIBC, ARLENE #### [place] [address] [place] #### LAURA #### [facility] , Total Iron Binding Capacity 392 ug/dL Normal 255-450 [facility] Comment on above: Performed By: #### C BC, FE and TIBC, ARLENE #### [place] [address] [place] #### LARUA #### [facility] , Iron binding capacity [Mass/ volume] in Serum or PlasmaOrdered By: Clemente Fragoso on 04-09-2024 Iron binding capacity [Mass/Vol] 392 ug/dL 255-450 [facility] Iron saturation [Mass Fracti on] in Serum or PlasmaOrdered By: Clemente Fragoso on 04-09-2024 Iron saturation [Mass fraction] 4.1 % Low 20-50 [facility] Leukocytes [#/volume] correc dorota for nucleated erythrocytes in Blood by Automated counOrdered By: Clemente Fragoso on 04-09-2024 WBC corrected for nucl RBC Auto (Bld) [#/Vol] 9.0 10*3/uL 4.1-10.5 [facility] Leukocytes [#/volume] in Blo od by Automated countOrdered By: Clemente Fragoso on 04-09-2024 WBC (Bld) [#/Vol] 9.0 10*3/uL Normal 4.1-10.5 [facility] Comment on above: Performed By: #### C BC, FE and TIBC, ARLENE #### [place] [address] [place] #### LAURA #### [facility] , Lymphocytes [#/volume] in Bl ood by Automated countOrdered By: Clemente Fragoso on 04-09-2024 Lymphocytes (Bld) [#/Vol] 0.8 10*3/uL Low 1.00-4.8 [facility] Comment on above: Performed By: #### C BC, FE and TIBC, ARLENE #### [facility] [address] [place] [address] [place] #### LAURA #### [facility] , Lymphocytes/100 leukocytes i n Blood by Automated countOrdered By: Clemente Fragoso on 04-09-2024 Lymphocytes/100 WBC (Bld) 9.0 % Normal . [facility] Comment on above: Performed By: #### C BC, FE and TIBC, ARLENE #### [place] [address] [place] #### LAURA #### [facility] , MCH [Entitic mass] by Automa dorota countOrdered By: Clemente Fragoso on 04-09-2024 MCH (RBC) [Entitic mass] 23.5 pg Low 27.5-35.2 [facility] Comment on above: Performed By: #### C BC, FE and TIBC, ARLENE #### [place] [address] [place] #### LAURA #### [facility] , MCHC Auto (RBC) [Mass/Vol]Or dered By: Clemente Fragoso on 04-09-2024 MCHC (RBC) [Mass/Vol] 30.7 g/dL Low 32.5-35.6 [facility] MCV [Entitic volume] by Auto mated countOrdered By: Clemente Fragoso on 04-09-2024 MCV (RBC) [Entitic vol] 76.6 fL Low 83.5-[address] [facility] Comment on above: Performed By: #### C BC, FE and TIBC, ARLENE #### [place] [address] [place] #### LAURA #### [facility] , Neutrophils [#/volume] in Bl ood by Automated countOrdered By: Clemente Fragoso on 04-09-2024 Neutrophils (Bld) [#/Vol] 7.0 10*3/uL Normal 1.8-7.7 [facility] Comment on above: Performed By: #### C BC, FE and TIBC, ARLENE #### [place] [address] [place] #### LAURA #### [facility] , Nucleated erythrocytes [Pres ence] in Blood by Automated countOrdered By: Clemente Fragoso on 04-09-2024 Nucleated RBC Auto Ql (Bld) 0.1 /100{WBC} 0-0.5 [facility] Platelet mean volume [Entiti c volume] in Blood by Automated countOrdered By: Clemente Fragoso on 04-09-2024 Platelet mean volume (Bld) [Entitic vol] 8.8 fL Normal 6.6-10.1 [facility] Comment on above: Performed By: #### C BC, FE and TIBC, ARLENE #### [facility] [address] [place] [address] [place] #### LAURA #### [facility] , Platelets [#/volume] in Bloo d by Automated countOrdered By: Clemente Fragoso on 04-09-2024 Platelets (Bld) [#/Vol] 441 10*3/uL Normal 150-450 [facility] Comment on above: Performed By: #### C BC, FE and TIBC, ARLENE #### [facility] [address] [place] [address] [place] #### LAURA #### [facility] , Transferrin [Mass/volume] in Serum or PlasmaOrdered By: Clemente Fragoso on 04-09-2024 Transferrin [Mass/Vol] 280 mg/dL Normal 203-362 [facility] Comment on above: Performed By: #### C BC, FE and TIBC, ARLENE #### [facility] [address] [place] [address] [place] #### LAURA #### [facility] , PATRICK Antinuclear Antibodieson 03-13-2024 Antinuclear Abs, IFA Negative Normal . [facility] Comment on above: Result Comment: Nega tive <1:80 Borderline 1:80 Positive >1:80 ICAP nomenclature: [id number] For more information about Hep-2 cell patterns use ANApatterns.org, the official website for the International Consensus on Antinuclear Antibody (PATRICK) Patterns (ICAP). Performed at: - [facility] [id number] Sample Case Porter: Fareed Santos PhD, Phone: [phone] Performed By: #### C BC, FE and TIBC, ARLENE #### [facility] [address] [place] [address] [place] #### LAURA #### [facility] , Alanine aminotransferase [En zymatic activity/volume] in Serum or PlasmaOrdered By: Clemente Fragoso on 03-13-2024 ALT [Catalytic activity/Vol] 57 U/L High 7-52 [facility] Comment on above: Performed By: #### C MP, ADDONUAPLUS, ESR, CBC, CK, ARLENE, CRP, FE and TIBC #### [facility] [address] [place] [address] [place] #### SSA, SUSANA,URINE, C3, SSB, KAPPA, CH50, SUSANA SERUM, UPE RAND, C4, SPE, PATRICK #### [facility] , Albumin [Mass/volume] in Ser um or PlasmaOrdered By: Clemente Fragoso on 03-13-2024 Albumin [Mass/Vol] 3.3 g/dL Normal 2.9-4.4 [facility] Comment on above: Performed By: #### C BC, FE and TIBC, ARLENE #### [place] [address] [place] #### LAURA #### [facility] , Albumin [Mass/volume] in Ser um or Plasma by Bromocresol green (BCG) dye binding methoOrdered By: Clemente Fragoso on 03-13-2024 Albumin BCG dye [Mass/Vol] 3.8 g/dL 3.5-5.7 [facility] Albumin/Protein.total in 24 hour Urine by ElectrophoresisOrdered By: Clemente Fragoso on 03-13-2024 Albumin Elph (24H U) [Mass fraction] 23.5 % . [facility] Alkaline phosphatase [Enzyma tic activity/volume] in Serum or PlasmaOrdered By: Clemente Fragoso on 03-13-2024 ALP [Catalytic activity/Vol] 139 U/L High 34-104 [facility] Comment on above: Performed By: #### C MP, ADDONUAPLUS, ESR, CBC, CK, ARLENE, CRP, FE and TIBC #### [facility] [address] [place] [address] [place] #### SSA, SUSANA,URINE, C3, SSB, KAPPA, CH50, SUSANA SERUM, UPE RAND, C4, SPE, PATRICK #### [facility] , Aspartate aminotransferase [ Enzymatic activity/volume] in Serum or PlasmaOrdered By: Clemente Fragoso on 03-13-2024 AST [Catalytic activity/Vol] 52 U/L High 13-39 [facility] Comment on above: Performed By: #### C MP, ADDONUAPLUS, ESR, CBC, CK, ARLENE, CRP, FE and TIBC #### [facility] [address] [place] [address] [place] #### SSA, SUSANA,URINE, C3, SSB, KAPPA, CH50, SUSANA SERUM, UPE RAND, C4, SPE, PATRICK #### [facility] , Automated basophil %Ordered By: Clemente Fragoso on 03-13-2024 Basophils/100 WBC (Bld) 0.8 % Normal . [facility] Comment on above: Performed By: #### C BC, FE and TIBC, ARLENE #### [facility] [address] [place] [address] [place] #### LAURA #### [facility] , Automated basophil countOrde red By: Clemente Fragoso on 03-13-2024 Basophils (Bld) [#/Vol] 0.1 10*3/uL Normal 0.0-0.2 [facility] Comment on above: Performed By: #### C BC, FE and TIBC, ARLENE #### [facility] [address] [place] [address] [place] #### LAURA #### [facility] , Automated blood monocyte cou ntOrdered By: Clemente Fragoso on 03-13-2024 Monocytes (Bld) [#/Vol] 0.5 10*3/uL Normal 0.0-0.8 [facility] Comment on above: Performed By: #### C BC, FE and TIBC, ARLENE #### [facility] [address] [place] [address] [place] #### LAURA #### [facility] , Automated eosinophil %Ordere d By: Clemente Fragoso on 03-13-2024 Eosinophils/100 WBC (Bld) 3.1 % Normal . [facility] Comment on above: Performed By: #### C BC, FE and TIBC, ARLENE #### [facility] [address] [place] [address] [place] #### LAURA #### [facility] , Automated eosinophil countOr dered By: Clemente Fragoso on 03-13-2024 Eosinophils (Bld) [#/Vol] 0.2 10*3/uL Normal 0.0-0.45 [facility] Comment on above: Performed By: #### C BC, FE and TIBC, ARLENE #### [place] [address] [place] #### LAURA #### [facility] , Automated monocyte %Ordered By: Clemente Fragoso on 03-13-2024 Monocytes/100 WBC (Bld) 6.4 % Normal . [facility] Comment on above: Performed By: #### C BC, FE and TIBC, ARLENE #### [place] [address] [place] #### LAURA #### [facility] , Automated neutrophil %Ordere d By: Clemente Fragoso on 03-13-2024 Neutrophils/100 WBC (Bld) 80.2 % Normal . [facility] Comment on above: Performed By: #### C BC, FE and TIBC, ARLENE #### [place] [address] [place] #### LAURA #### [facility] , Bacteria [Presence] in Urine by AutomatedOrdered By: Clemente Fragoso on 03-13-2024 Bacteria Auto Ql (U) None seen [HPF] None Seen [facility] Bilirubin Test strip Ql (U)O rdered By: Clemente Fragoos on 03-13-2024 Bilirubin Ql (U) Negative Negative [facility] Bilirubin.total [Mass/volume ] in Serum or PlasmaOrdered By: Clemente Fragoso on 03-13-2024 Bilirubin [Mass/Vol] 0.3 mg/dL Normal 0.3-1.0 [facility] Comment on above: Performed By: #### C MP, ADDONUAPLUS, ESR, CBC, CK, ARLENE, CRP, FE and TIBC #### [facility] [address] [place] [address] #### SSA, SUSANA,URINE, C3, SSB, KAPPA, CH50, SUSANA SERUM, UPE RAND, C4, SPE, PATRICK #### [facility] , C reactive protein [Mass/vol ume] in Serum or PlasmaOrdered By: Clemente Fragoso on 03-13-2024 CRP [Mass/Vol] 6.5 mg/dL High 0.0-0.5 [facility] C-Reactive Proteinon 024 C-Reactive Protein 6.5 mg/dL High 0.0-0.5 [facility] Comment on above: Result Comment: PERF ORMED BY: [place] [address] PATHOLOGIST [employer] MAKER ROBERT DAVIS M.D. Performed By: #### C MP, ADDONUAPLUS, ESR, CBC, CK, ARLENE, CRP, FE and TIBC #### [facility] [address] [place] [address] #### SSA, SUSANA,URINE, C3, SSB, KAPPA, CH50, SUSANA SERUM, UPE RAND, C4, SPE, PATRICK #### [facility] , Calcium [Mass/volume] in Ser um or PlasmaOrdered By: Clemente Fragoso on 03-13-2024 Calcium [Mass/Vol] 10.3 mg/dL Normal 8.6-10.3 [facility] Comment on above: Performed By: #### C MP, ADDONUAPLUS, ESR, CBC, CK, ARLENE, CRP, FE and TIBC #### [facility] [address] [place] [address] #### SSA, SUSANA,URINE, C3, SSB, KAPPA, CH50, SUSANA SERUM, UPE RAND, C4, SPE, PATRICK #### [facility] , Carbon dioxide, total [Moles /volume] in Serum or PlasmaOrdered By: Clemente Fragoso on 03-13-2024 CO2 [Moles/Vol] 29.9 mmol/L Normal 21.0-31.0 [facility] Comment on above: Performed By: #### C MP, ADDONUAPLUS, ESR, CBC, CK, ARLENE, CRP, FE and TIBC #### [facility] [address] [place] [address] #### SSA, SUSANA,URINE, C3, SSB, KAPPA, CH50, SUSANA SERUM, UPE RAND, C4, SPE, PATRICK #### [facility] , Chloride [Moles/volume] in S kaleigh or PlasmaOrdered By: Clemente Fragoso on 03-13-2024 Chloride [Moles/Vol] 101 mmol/L Normal 98-107 [facility] Comment on above: Performed By: #### C MP, ADDONUAPLUS, ESR, CBC, CK, ARLENE, CRP, FE and TIBC #### [facility] [address] [place] [address] [place] #### SSA, SUSANA,URINE, C3, SSB, KAPPA, CH50, SUSANA SERUM, UPE RAND, C4, SPE, PATRICK #### [facility] , Color of Urine by AutoOrdere d By: Clemente Fragoso on 03-13-2024 Color (U) Light-yellow Normal Yellow [facility] Comment on above: Order Comment: Name Collection Type:: Clean-Voided Midstream Performed By: #### C MP, ADDONUAPLUS, ESR, CBC, CK, ARLENE, CRP, FE and TIBC #### [facility] [address] [place] [address] #### SSA, SUSANA,URINE, C3, SSB, KAPPA, CH50, SUSANA SERUM, UPE RAND, C4, SPE, PATRICK #### [facility] , Complement C3on 03-13-2024 Complement C3 172 mg/dL High 82-167 [facility] Comment on above: Result Comment: Perf ormed at: - [facility] [address] [id number] Sample Case Porter: Fareed Santos PhD, Phone: [phone] Performed By: #### C BC, FE and TIBC, ARLENE #### [place] [address] [place] #### LAURA #### [facility] , Complement C4on 03-13-2024 Complement C4 32 mg/dL Normal 12-38 [facility] Comment on above: Performed By: #### C BC, FE and TIBC, ARLENE #### [place] [address] [place] #### LAURA #### [facility] , Complement Total (CH50)on Complement Total (CH50) >60 Normal >41 [facility] Comment on above: Result Comment: [...] out of range values. Performed at: - [facility] [id number] Sample Case Porter: Fareed Santos PhD, Phone: [phone] PERFORMED BY: [place] [address] PATHOLOGIST [employer] MAKER ROBERT DAVIS M.D. Performed By: #### C BC, FE and TIBC, ARLENE #### [place] [address] [place] #### LAURA #### [facility] , Complete Blood Count Auto Di ffon 03-13-2024 Mean Corpuscular HGB Conc 31.9 g/dL Low 32.5-35.6 [facility] Comment on above: Performed By: #### C BC, FE and TIBC, ARLENE #### [place] [address] [place] #### LAURA #### [facility] , NRBC% 0.1 /100{WBC} Normal 0-0.5 [facility] Comment on above: Performed By: #### C BC, FE and TIBC, ARLENE #### [address] #### LAURA #### [facility] , Comprehensive Metabolic Pane angel 03-13-2024 Albumin [Mass/Vol] 3.8 g/dL Normal 3.5-5.7 [facility] Comment on above: Performed By: #### C MP, ADDONUAPLUS, ESR, CBC, CK, ARLENE, CRP, FE and TIBC #### [address] #### SSA, SUSANA,URINE, C3, SSB, KAPPA, CH50, SUSANA SERUM, UPE RAND, C4, SPE, PATRICK #### [facility] , GFR/1.73 sq M.predicted MDRD (S/P/Bld) [Vol rate/Area] mL/min/{1.73_m2} Normal [facility] Comment on above: Performed By: #### C MP, ADDONUAPLUS, ESR, CBC, CK, ARLENE, CRP, FE and TIBC #### [address] #### SSA, SUSANA,URINE, C3, SSB, KAPPA, CH50, SUSANA SERUM, UPE RAND, C4, SPE, PATRICK #### [facility] , Creatine kinase [Enzymatic a ctivity/volume] in Serum or PlasmaOrdered By: Clemente Fragoso on 03-13-2024 CK [Catalytic activity/Vol] 200 U/L Normal 30-223 [facility] Comment on above: Result Comment: PERF ORMED BY: [place] [address] PATHOLOGIST [employer] MAKER ROBERT DAVIS M.D. Performed By: #### C MP, ADDONUAPLUS, ESR, CBC, CK, ARLENE, CRP, FE and TIBC #### [address] [place] [address] [place] #### SSA, SUSANA,URINE, C3, SSB, KAPPA, CH50, SUSANA SERUM, UPE RAND, C4, SPE, PATRICK #### [facility] , Creatinine [Mass/volume] in Serum or PlasmaOrdered By: Clemente Fragoso on 03-13-2024 Creatinine [Mass/Vol] 0.81 mg/dL Normal 0.70-1.30 [facility] Comment on above: Performed By: #### C MP, ADDONUAPLUS, ESR, CBC, CK, ARLENE, CRP, FE and TIBC #### [facility] [address] [place] [address] #### SSA, SUSANA,URINE, C3, SSB, KAPPA, CH50, SUSANA SERUM, UPE RAND, C4, SPE, PATRICK #### [facility] , Dipstick and Microscopicon 1 Bacteria,Urine None Seen Normal None Seen [facility] Comment on above: Order Comment: Name Collection Type:: Clean-Voided Midstream Performed By: #### C MP, ADDONUAPLUS, ESR, CBC, CK, ARLENE, CRP, FE and TIBC #### [address] #### SSA, SUSANA,URINE, C3, SSB, KAPPA, CH50, SUSANA SERUM, UPE RAND, C4, SPE, PATRICK #### [facility] , Bilirubin,Urine Negative Normal Negative [facility] Comment on above: Order Comment: Name Collection Type:: Clean-Voided Midstream Performed By: #### C MP, ADDONUAPLUS, ESR, CBC, CK, ARLENE, CRP, FE and TIBC #### [facility] [address] [place] [address] #### SSA, SUSANA,URINE, C3, SSB, KAPPA, CH50, SUSANA SERUM, UPE RAND, C4, SPE, PATRICK #### [facility] , Glucose Ql (U) Normal Normal Normal [facility] Comment on above: Order Comment: Name Collection Type:: Clean-Voided Midstream Performed By: #### C MP, ADDONUAPLUS, ESR, CBC, CK, ARLENE, CRP, FE and TIBC #### [address] #### SSA, SUSANA,URINE, C3, SSB, KAPPA, CH50, SUSANA SERUM, UPE RAND, C4, SPE, PATRICK #### [facility] , Hyaline Casts,Urine None Normal 0-8 [facility] Comment on above: Order Comment: Name Collection Type:: Clean-Voided Midstream Performed By: #### C MP, ADDONUAPLUS, ESR, CBC, CK, ARLENE, CRP, FE and TIBC #### [address] #### SSA, SUSANA,URINE, C3, SSB, KAPPA, CH50, SUSANA SERUM, UPE RAND, C4, SPE, PATRICK #### [facility] , Mucus,Urine Rare Normal [facility] Comment on above: Order Comment: Name Collection Type:: Clean-Voided Midstream Result Comment: PERF ORMED BY: [place] [address] PATHOLOGIST [employer] MAKER ROBERT DAVIS M.D. Performed By: #### C MP, ADDONUAPLUS, ESR, CBC, CK, ARLENE, CRP, FE and TIBC #### [address] #### SSA, SUSANA,URINE, C3, SSB, KAPPA, CH50, SUSANA SERUM, UPE RAND, C4, SPE, PATRICK #### [facility] , Nitrite,Urine Negative Normal Negative [facility] Comment on above: Order Comment: Name Collection Type:: Clean-Voided Midstream Performed By: #### C MP, ADDONUAPLUS, ESR, CBC, CK, ARLENE, CRP, FE and TIBC #### [address] #### SSA, SUSANA,URINE, C3, SSB, KAPPA, CH50, SUSANA SERUM, UPE RAND, C4, SPE, PATRICK #### [facility] , Occult Blood,Urine Negative Normal Negative [facility] Comment on above: Order Comment: Name Collection Type:: Clean-Voided Midstream Performed By: #### C MP, ADDONUAPLUS, ESR, CBC, CK, ARLENE, CRP, FE and TIBC #### [address] #### SSA, SUSANA,URINE, C3, SSB, KAPPA, CH50, SUSANA SERUM, UPE RAND, C4, SPE, PATRICK #### [facility] , Protein,Urine Negative Normal Negative [facility] Comment on above: Order Comment: Name Collection Type:: Clean-Voided Midstream Performed By: #### C MP, ADDONUAPLUS, ESR, CBC, CK, ARLENE, CRP, FE and TIBC #### [address] #### SSA, SUSANA,URINE, C3, SSB, KAPPA, CH50, SUSANA SERUM, UPE RAND, C4, SPE, PATRICK #### [facility] , RBC,Urine None Seen Normal 0-4 [facility] Comment on above: Order Comment: Name Collection Type:: Clean-Voided Midstream Performed By: #### C MP, ADDONUAPLUS, ESR, CBC, CK, ARLENE, CRP, FE and TIBC #### [address] #### SSA, SUSANA,URINE, C3, SSB, KAPPA, CH50, SUSANA SERUM, UPE RAND, C4, SPE, PATRICK #### [facility] , Specificy [place],Urine 1.015 Normal 1.001-1.030 [facility] Comment on above: Order Comment: Name Collection Type:: Clean-Voided Midstream Performed By: #### C MP, ADDONUAPLUS, ESR, CBC, CK, ARLENE, CRP, FE and TIBC #### [place] [address] [place] #### SSA, SUSANA,URINE, C3, SSB, KAPPA, CH50, SUSANA SERUM, UPE RAND, C4, SPE, PATRICK #### [facility] , Urobilinogen,Urine Normal Normal Normal [facility] Comment on above: Order Comment: Name Collection Type:: Clean-Voided Midstream Performed By: #### C MP, ADDONUAPLUS, ESR, CBC, CK, ARLENE, CRP, FE and TIBC #### [address] #### SSA, SUSANA,URINE, C3, SSB, KAPPA, CH50, SUSANA SERUM, UPE RAND, C4, SPE, PATRICK #### [facility] , WBC,Urine 1-2 Normal 0-4 [facility] Comment on above: Order Comment: Name Collection Type:: Clean-Voided Midstream Performed By: #### C MP, ADDONUAPLUS, ESR, CBC, CK, ARLENE, CRP, FE and TIBC #### [address] #### SSA, SUSANA,URINE, C3, SSB, KAPPA, CH50, SUSANA SERUM, UPE RAND, C4, SPE, PATRICK #### [facility] , Epithelial cells.squamous [# /area] in Urine sediment by Automated countOrdered By: Clemente Fragoso on 03-13-2024 Epithelial cells.squamous Auto (Urine sed) [#/Area] N/A [facility] Erythrocyte Sedimentation Ra yuri 03-13-2024 ESR (Bld) [Velocity] 73 mm/h High 0-19 [facility] Comment on above: Result Comment: PERF ORMED BY: [place] [address] PATHOLOGIST [employer] MAKER ROBERT DAVIS M.D. Performed By: #### C BC, FE and TIBC, ARLENE #### [address] #### LAURA #### [facility] , Erythrocyte distribution wid th [Ratio] by Automated countOrdered By: Clemente Fragoso on 03-13-2024 Erythrocyte distribution width (RBC) [Ratio] 18.9 % High 12.0-14.8 [facility] Comment on above: Performed By: #### C BC, FE and TIBC, ARLENE #### [facility] [address] [place] [address] [place] #### LAURA #### [facility] , Erythrocyte sedimentation ra te by Photometric methodOrdered By: Clemente Fragoso on 03-13-2024 ESR Photometric method (Bld) [Velocity] 73 mm/hr High 0-19 [facility] Erythrocytes [#/area] in Uri ne sediment by Automated countOrdered By: Clemente Fragoso on 03-13-2024 RBC Auto (Urine sed) [#/Area] None seen [HPF] 0-4 [facility] Erythrocytes [#/volume] in B lood by Automated countOrdered By: Clemente Fragoso on 03-13-2024 RBC (Bld) [#/Vol] 3.18 10*6/uL Low 3.90-5.60 [facility] Comment on above: Performed By: #### C BC, FE and TIBC, ARLENE #### [place] [address] [place] #### LAURA #### [facility] , Ferritin [Mass/volume] in Se rum or PlasmaOrdered By: Clemente Fragoso on 03-13-2024 Ferritin [Mass/Vol] 38.6 ng/mL Normal 23.9-336.2 [facility] Comment on above: Performed By: #### C MP, ADDONUAPLUS, ESR, CBC, CK, ARLENE, CRP, FE and TIBC #### [facility] [address] [place] [address] [place] #### SSA, SUSANA,URINE, C3, SSB, KAPPA, CH50, SUSANA SERUM, UPE RAND, C4, SPE, PATRICK #### [facility] , Free K+L LT Chains, Qn, Son 03-13-2024 Free [place] Light Chains, S 71.1 mg/L High 3.3-19.4 [facility] Comment on above: Performed By: #### C BC, FE and TIBC, ARLENE #### [place] [address] [place] #### LAURA #### [facility] , Free Lambda Light Chains, S 59.2 mg/L High 5.7-26.3 [facility] Comment on above: Performed By: #### C BC, FE and TIBC, ARLENE #### [place] [address] [place] #### LAURA #### [facility] , [place]/Lambda Ratio, S 1.20 Normal 0.26-1.65 [facility] Comment on above: Result Comment: Perf ormed at: - [facility] [address] [id number] Sample Case Porter: Fareed Santos PhD, Phone: [phone] PERFORMED BY: [place] [address] PATHOLOGIST [employer] MAKER ROBERT DAVIS M.D. Performed By: #### C BC, FE and TIBC, ARLENE #### [address] #### LAURA #### [facility] , Gamma globulin/Protein.total in 24 hour Urine by ElectrophoresisOrdered By: Clemente Fragoso on 03-13-2024 Gamma globulin Elph (24H U) [Mass fraction] 31.1 % . [facility] Glucose [Mass/volume] in Ser um or PlasmaOrdered By: Clemente Fragoso on 03-13-2024 Glucose [Mass/Vol] 123 mg/dL High 70-100 [facility] Comment on above: ADA recommended refe rence rangeRandom Glucose Reference Range is dependent on time and content of last meal. Glucose of more than 200 mg/dL in a nonstressed, ambulatory subject supports the diagnosis of Diabetes Mellitus. Result Comment: [place] om Glucose Reference Range is dependent on time and content of last meal. Glucose of more than 200 mg/dL in a nonstressed, ambulatory subject supports the diagnosis of Diabetes Mellitus. ADA recommended reference range Performed By: #### C MP, ADDONUAPLUS, ESR, CBC, CK, ARLENE, CRP, FE and TIBC #### [facility] [address] [place] [address] [place] #### SSA, SUSANA,URINE, C3, SSB, KAPPA, CH50, SUSANA SERUM, UPE RAND, C4, SPE, PATRICK #### [facility] , Glucose [Mass/volume] in Uri ne by Test stripOrdered By: Clemente Fragoso on 03-13-2024 Glucose Test strip (U) [Mass/Vol] Normal mg/dL Normal [facility] Hematocrit [Volume Fraction] of Blood by Automated countOrdered By: Clemente Fragoso on 03-13-2024 Hematocrit (Bld) [Volume fraction] 26.1 % Low 38.8-50.0 [facility] Comment on above: Performed By: #### C BC, FE and TIBC, ARLENE #### [place] [address] [place] #### LAURA #### [facility] , Hemoglobin Test strip Ql (U) Ordered By: Clemente Fragoso on 03-13-2024 Hemoglobin Ql (U) Negative Negative [facility] Hemoglobin [Mass/volume] in BloodOrdered By: Clemente Fragoso on 03-13-2024 Hemoglobin (Bld) [Mass/Vol] 8.3 g/dL Low 13.0-17.0 [facility] Comment on above: Performed By: #### C BC, FE and TIBC, ARLENE #### [place] [address] [place] #### LAURA #### [facility] , Hyaline casts [#/area] in Ur ine sediment by Automated countOrdered By: Clemente Fragoso on 03-13-2024 Hyaline casts Auto (Urine sed) [#/Area] None [LPF] 0-8 [facility] IgA [Mass/volume] in Serum o r PlasmaOrdered By: Clemente Fragoso on 03-13-2024 IgA [Mass/Vol] 551 mg/dL High 61-437 [facility] IgG [Mass/volume] in Serum o r PlasmaOrdered By: Clemente Fragoso on 03-13-2024 IgG [Mass/Vol] 1286 mg/dL 603-1613 [facility] IgM [Mass/volume] in Serum o r PlasmaOrdered By: Clemente Fragoso on 03-13-2024 IgM [Mass/Vol] 191 mg/dL High 15-143 [facility] Comment on above: Performed at: [facility] [address] Director: Fareed Santos PhD, Phone: [phone] Immunofixation for UrineOrde red By: Clemente Fragoso on 03-13-2024 Interpretation Immunofixation (U) [Interp] Comment . [facility] Comment on above: No monoclonality det ected.Performed at: [employer] [facility] [address] [id number] Director: Fareed Santos PhD, Phone: [phone] Immunofixation, (SUSANA), Urine on 03-13-2024 Immunofixation, (SUSANA), Urine Comment Normal . [facility] Comment on above: Result Comment: No m onoclonality detected. Performed at: [facility] [address] [id number] Sample Case Porter: Fareed Santos PhD, Phone: [phone] Performed By: #### C BC, FE and TIBC, ARLENE #### [address] #### LAURA #### [facility] , Immunofixation,Serumon 03-13 Immunofixation, Serum Comment: Normal . [facility] Comment on above: Result Comment: Pres ence of monoclonal protein is unclear at this time. Suggest repeat in 3 to 6 months if clinically indicated. Performed By: #### C BC, FE and TIBC, ARLENE #### [facility] [address] [place] [address] [place] #### LAURA #### [facility] , Immunoglobulin A, Serum 551 mg/dL High 61-437 [facility] Comment on above: Performed By: #### C BC, FE and TIBC, ARLENE #### [facility] [address] [place] [address] [place] #### LAURA #### [facility] , Immunoglobulin G 1286 mg/dL Normal 603-1613 [facility] Comment on above: Performed By: #### C BC, FE and TIBC, ARLENE #### [facility] [address] [place] [address] [place] #### LAURA #### [facility] , Immunoglobulin M, Serum 191 mg/dL High 15-143 [facility] Comment on above: Result Comment: Perf ormed at: [facility] [address] [place], [place] [id number] Sample Case Porter: Fareed Santos PhD, Phone: [phone] Performed By: #### C BC, FE and TIBC, ARLENE #### [facility] [address] [place] [address] [place] #### LAURA #### [facility] , Immunoglobulin light chains. kappa.free [Mass/volume] in SerumOrdered By: Clemente Fragoso on 03-13-2024 Immunoglobulin light chains.kappa.free (S) [Mass/Vol] 71.1 mg/L High 3.3-19.4 [facility] Immunoglobulin light chains. kappa.free/Immunoglobulin light chains.lambda.free [MassOrdered By: Clemente Fragoso on 03-13-2024 Immunoglobulin light chains.kappa.free/Immunog lobulin light chains.lambda.free (S) [Mass ratio] 1.20 0.26-1.65 [facility] Comment on above: Performed at: [facility] [place], [place] [id number] Director: Fareed Santos PhD, Phone: [phone] Immunoglobulin light chains. lambda.free [Mass/volume] in Serum or PlasmaOrdered By: Clemente Fragoso on 03-13-2024 Immunoglobulin light chains.lambda.free [Mass/Vol] 59.2 mg/L High 5.7-26.3 [facility] Iron [Mass/volume] in Serum or PlasmaOrdered By: Clemente Fragoso on 03-13-2024 Iron [Mass/Vol] 20 ug/dL Low 50-212 [facility] Comment on above: Performed By: #### C MP, ADDONUAPLUS, ESR, CBC, CK, ARLENE, CRP, FE and TIBC #### [facility] [address] #### SSA, SUSANA,URINE, C3, SSB, KAPPA, CH50, SUSANA SERUM, UPE RAND, C4, SPE, PATRICK #### [facility] , Iron and TIBC Profileon 10-0 % Iron Saturation 5.4 % Low 20-50 [facility] Comment on above: Performed By: #### C MP, ADDONUAPLUS, ESR, CBC, CK, ARLENE, CRP, FE and TIBC #### [facility] [address] [place] [address] [place] #### SSA, SUSANA,URINE, C3, SSB, KAPPA, CH50, SUSANA SERUM, UPE RAND, C4, SPE, PATRICK #### [facility] , Total Iron Binding Capacity 370 ug/dL Normal 255-450 [facility] Comment on above: Performed By: #### C MP, ADDONUAPLUS, ESR, CBC, CK, ARLENE, CRP, FE and TIBC #### [facility] [address] [place] [address] [place] #### SSA, SUSANA,URINE, C3, SSB, KAPPA, CH50, SUSANA SERUM, UPE RAND, C4, SPE, PATRICK #### [facility] , Iron binding capacity [Mass/ volume] in Serum or PlasmaOrdered By: Clemente Fragoso on 03-13-2024 Iron binding capacity [Mass/Vol] 370 ug/dL 255-450 [facility] Iron saturation [Mass Fracti on] in Serum or PlasmaOrdered By: Clemente Fragoso on 03-13-2024 Iron saturation [Mass fraction] 5.4 % Low 20-50 [facility] Ketones [Presence] in Urine by Test stripOrdered By: Clemente Fragoso on 03-13-2024 Ketones Ql (U) Negative Normal Negative [facility] Comment on above: Order Comment: Name Collection Type:: Clean-Voided Midstream Performed By: #### C MP, ADDONUAPLUS, ESR, CBC, CK, ARLENE, CRP, FE and TIBC #### [facility] [address] [place] [address] #### SSA, SUSANA,URINE, C3, SSB, KAPPA, CH50, SUSANA SERUM, UPE RAND, C4, SPE, PATRICK #### [facility] , Leukocyte esterase [Presence ] in Urine by Test stripOrdered By: Clemente Fragoso on 03-13-2024 Leukocyte esterase Test strip Ql (U) Negative Normal Negative [facility] Comment on above: Order Comment: Name Collection Type:: Clean-Voided Midstream Performed By: #### C MP, ADDONUAPLUS, ESR, CBC, CK, ARLENE, CRP, FE and TIBC #### [facility] [address] [place] [address] #### SSA, SUSANA,URINE, C3, SSB, KAPPA, CH50, SUSANA SERUM, UPE RAND, C4, SPE, PATRICK #### [facility] , Leukocytes [#/area] in Urine sediment by Automated countOrdered By: Clemente Fragoso on 03-13-2024 WBC Auto (Urine sed) [#/Area] 1-2 [HPF] 0-4 [facility] Leukocytes [#/volume] correc dorota for nucleated erythrocytes in Blood by Automated counOrdered By: Clemente Fragoso on 03-13-2024 WBC corrected for nucl RBC Auto (Bld) [#/Vol] 8.0 10*3/uL 4.1-10.5 [facility] Leukocytes [#/volume] in Blo od by Automated countOrdered By: Clemente Fragoso on 03-13-2024 WBC (Bld) [#/Vol] 8.0 10*3/uL Normal 4.1-10.5 [facility] Comment on above: Performed By: #### C BC, FE and TIBC, ARLENE #### [place] [address] [place] #### LAURA #### [facility] , Lymphocytes [#/volume] in Bl ood by Automated countOrdered By: Clemente Fragoso on 03-13-2024 Lymphocytes (Bld) [#/Vol] 0.8 10*3/uL Low 1.00-4.8 [facility] Comment on above: Performed By: #### C BC, FE and TIBC, ARLENE #### [place] [address] [place] #### LAURA #### [facility] , Lymphocytes/100 leukocytes i n Blood by Automated countOrdered By: Clemente Fragoso on 03-13-2024 Lymphocytes/100 WBC (Bld) 9.5 % Normal . [facility] Comment on above: Performed By: #### C BC, FE and TIBC, ARLENE #### [place] [address] [place] #### LARUA #### [facility] , MCH [Entitic mass] by Automa dorota countOrdered By: Clemente Fragoso on 03-13-2024 MCH (RBC) [Entitic mass] 26.2 pg Low 27.5-35.2 [facility] Comment on above: Performed By: #### C BC, FE and TIBC, ARLENE #### [place] [address] [place] #### LAURA #### [facility] , MCHC Auto (RBC) [Mass/Vol]Or dered By: Clemente Fragoso on 03-13-2024 MCHC (RBC) [Mass/Vol] 31.9 g/dL Low 32.5-35.6 [facility] MCV [Entitic volume] by Auto mated countOrdered By: Clemente Fragoso on 03-13-2024 MCV (RBC) [Entitic vol] 82.1 fL Low 83.5-[address] [facility] Comment on above: Performed By: #### C BC, FE and TIBC, ARLENE #### [facility] [address] [place] [address] [place] #### LAURA #### [facility] , Mucus [Presence] in Urine by AutomatedOrdered By: Clemente Calixrob on 03-13-2024 Mucus Auto Ql (U) Rare [LPF] [facility] Neutrophils [#/volume] in Bl ood by Automated countOrdered By: Clemente Calixrob on 03-13-2024 Neutrophils (Bld) [#/Vol] 6.4 10*3/uL Normal 1.8-7.7 [facility] Comment on above: Performed By: #### C BC, FE and TIBC, ARLENE #### [facility] [address] [place] [address] [place] #### LAURA #### [facility] , Nitrite Test strip Ql (U)Ord ered By: Clemente Calixrob on 03-13-2024 Nitrite Ql (U) Negative Negative [facility] No Panel InformationOrdered By: Clemente Calixrob on 03-13-2024 Estimated GFR (CKD-EPI) > 60.0 mL/Min [facility] Creatinine Clearance (Chem N/A [facility] Protein Electrophoresis M-Trye Not observed g/dL Not Observed [facility] Protein Electrophoresis Note Comment . [facility] Comment on above: Protein electrophore sis scan will follow via computer,mail, or athletic trainer delivery.Performed at: - [facility] [id number] Director: Fareed Santos PhD, Phone: [phone] Serum Immunofixation Comment: . [facility] Comment on above: Presence of monoclon al protein is unclear at this time. Suggestrepeat in 3 to 6 months if clinically indicated. Total Complement (CH50) >60 U/mL >[address] [facility] Comment on above: Age Male Female [...] determine out of range values.Performed at: - [address] [id number] Director: Fareed Santos PhD, Phone: [phone] Urine Random Prot Electrophor Note Comment . [facility] Comment on above: Protein electrophore sis scan will follow via computer,mail, or athletic trainer delivery. Nucleated erythrocytes [Pres ence] in Blood by Automated countOrdered By: Clemente Fragoso on 03-13-2024 Nucleated RBC Auto Ql (Bld) 0.1 /100{WBC} 0-0.5 [facility] Platelet mean volume [Entiti c volume] in Blood by Automated countOrdered By: Clemente Fragoso on 03-13-2024 Platelet mean volume (Bld) [Entitic vol] 9.1 fL Normal 6.6-10.1 [facility] Comment on above: Performed By: #### C BC, FE and TIBC, ARLENE #### [facility] [address] [place] [address] [place] #### LAURA #### [facility] , Platelets [#/volume] in Bloo d by Automated countOrdered By: Clemente Fragoso on 03-13-2024 Platelets (Bld) [#/Vol] 347 10*3/uL Normal 150-450 [facility] Comment on above: Performed By: #### C BC, FE and TIBC, ARLENE #### [facility] [address] [place] [address] [place] #### LAURA #### [facility] , Potassium [Moles/volume] in Serum or PlasmaOrdered By: Clemente Fragoso on 03-13-2024 Potassium [Moles/Vol] 4.2 mmol/L Normal 3.5-5.1 [facility] Comment on above: Performed By: #### C MP, ADDONUAPLUS, ESR, CBC, CK, ARLENE, CRP, FE and TIBC #### [place] [address] [place] #### SSA, SUSANA,URINE, C3, SSB, KAPPA, CH50, SUSANA SERUM, UPE RAND, C4, SPE, PATRICK #### [facility] , Protein Electro, Random Urin fletcher 03-13-2024 Albumin, Urine 23.5 % Normal . [facility] Comment on above: Performed By: #### C BC, FE and TIBC, ARLENE #### [place] [address] [place] #### LAURA #### [facility] , Outle-3-Ycwyhhsv, Urine 2.4 % Normal . [facility] Comment on above: Performed By: #### C BC, FE and TIBC, ARLENE #### [place] [address] [place] #### LAURA #### [facility] , Xxtka-3-Peducouk, Urine 13.7 % Normal . [facility] Comment on above: Performed By: #### C BC, FE and TIBC, ARLENE #### [place] [address] [place] #### LAURA #### [facility] , Beta Globulin, Urine 29.3 % Normal . [facility] Comment on above: Performed By: #### C BC, FE and TIBC, ARLENE #### [place] [address] [place] #### LAURA #### [facility] , Gamma Globulin, Urine 31.1 % Normal . [facility] Comment on above: Performed By: #### C BC, FE and TIBC, ARLENE #### [place] [address] [place] #### LAURA #### [facility] , M-Trey % Not Observed Normal Not Observed [facility] Comment on above: Performed By: #### C BC, FE and TIBC, ARLENE #### [place] [address] [place] #### LAURA #### [facility] , Please Note: Comment Normal . [facility] Comment on above: Result Comment: Prot ein electrophoresis scan will follow via computer, mail, or athletic trainer delivery. PERFORMED BY: [place] [address] PATHOLOGIST [employer] MAKER ROBERT DAVIS M.D. Performed By: #### C BC, FE and TIBC, ARLENE #### [place] [address] [place] #### LAURA #### [facility] , Protein Electrophoresis, Ser umon 03-13-2024 Bdkbq-2-Lwjtxyih 0.5 g/dL High 0.0-0.4 [facility] Comment on above: Performed By: #### C BC, FE and TIBC, ARLENE #### [place] [address] [place] #### LAURA #### [facility] , Pcwfz-2-Jxiabnwq 1.1 g/dL High 0.4-1.0 [facility] Comment on above: Performed By: #### C BC, FE and TIBC, ARLENE #### [place] [address] [place] #### LAURA #### [facility] , Beta Globulin 1.2 g/dL Normal 0.7-1.3 [facility] Comment on above: Performed By: #### C BC, FE and TIBC, ARLENE #### [place] [address] [place] #### LAURA #### [facility] , Gamma Globulin 1.4 g/dL Normal 0.4-1.8 [facility] Comment on above: Performed By: #### C BC, FE and TIBC, ARLENE #### [address] [place] [address] [place] #### LAURA #### [facility] , M-Trey Not Observed Normal Not Observed [facility] Comment on above: Performed By: #### C BC, FE and TIBC, ARLENE #### [address] #### LAURA #### [facility] , SPE-Note Comment Normal . [facility] Comment on above: Result Comment: Prot ein electrophoresis scan will follow via computer, mail, or athletic trainer delivery. Performed at: [facility] [address] [id number] Sample Case Porter: Fareed Santos PhD, Phone: [phone] Performed By: #### C BC, FE and TIBC, ARLENE #### [place] [address] [place] #### LAURA #### [facility] , Protein Test strip (U) [Mass /Vol]Ordered By: Clemente Fragoso on 03-13-2024 Protein (U) [Mass/Vol] Negative Negative [facility] Protein [Mass/volume] in Ser um or PlasmaOrdered By: Clemente Fragoso on 03-13-2024 Protein [Mass/Vol] 7.2 g/dL Normal 6.4-8.9 [facility] Comment on above: Performed By: #### C MP, ADDONUAPLUS, ESR, CBC, CK, ARLENE, CRP, FE and TIBC #### [place] [address] [place] #### SSA, SUSANA,URINE, C3, SSB, KAPPA, CH50, SUSANA SERUM, UPE RAND, C4, SPE, PATRICK #### [facility] , Protein [Mass/Vol] 7.4 g/dL Normal 6.0-8.5 [facility] Comment on above: Performed By: #### C BC, FE and TIBC, ARLENE #### [place] [address] [place] #### LAURA #### [facility] , Protein [Mass/volume] in Uri neOrdered By: Clemente Fragoso on 03-13-2024 Protein (U) [Mass/Vol] 12.6 mg/dL Normal Not Estab. [facility] Comment on above: Performed By: #### C BC, FE and TIBC, ARLENE #### [facility] [address] [place] [address] [place] #### LAURA #### [facility] , Protein.monoclonal/Protein.t otal in 24 hour Urine by ElectrophoresisOrdered By: Clemente Fragoso on 03-13-2024 Protein.monoclonal Elph (24H U) [Mass fraction] Not observed % Not Observed [facility] SS-A/Ro Sjogrens Antibodyon 03-13-2024 SS-A/Ro Sjogrens Antibody <0.2 Normal 0.0-0.9 [facility] Comment on above: Performed By: #### C BC, FE and TIBC, ARLENE #### [place] [address] [place] #### LAURA #### [facility] , SS-B/La Sjogrens Antibodyon 03-13-2024 SS-B/La Sjogrens Antibody <0.2 Normal 0.0-0.9 [facility] Comment on above: Result Comment: Perf ormed at: - [facility] [address] [id number] Sample Case Porter: Fareed Santos PhD, Phone: [phone] Performed By: #### C BC, FE and TIBC, ARLENE #### [facility] [address] [place] [address] [place] #### LAURA #### [facility] , Serum Sjogrens syndrome-A ex tractable nuclear antibody assay (units/volume)Ordered By: Clemente Fragoso on 03-13-2024 Sjogrens syndrome-A extractable nuclear Ab Qn (S) <0.2 AI 0.0-0.9 [facility] Serum Sjogrens syndrome-B ex tractable nuclear antibody assay (units/volume)Ordered By: Clemente Fragoso on 03-13-2024 Sjogrens syndrome-B extractable nuclear Ab Qn (S) <0.2 AI 0.0-0.9 [facility] Comment on above: Performed at: - [address] [id number] Director: Fareed Santos PhD, Phone: [phone] Serum globulin measurement ( mass/volume)Ordered By: Clemente Fragoso on 03-13-2024 Globulin (S) [Mass/Vol] 4.1 g/dL High 2.2-3.[address] [facility] Comment on above: Performed By: #### C BC, FE and TIBC, ARLENE #### [facility] [address] #### LAURA #### [facility] , Serum globulin measurement b y calculation (mass/volume)Ordered By: Clemente Fragoso on 03-13-2024 Globulin (S) [Mass/Vol] 3.4 g/dL Normal F [facility] Comment on above: Performed By: #### C MP, ADDONUAPLUS, ESR, CBC, CK, ARLENE, CRP, FE and TIBC #### [facility] [address] [place] [address] [place] #### SSA, SUSANA,URINE, C3, SSB, KAPPA, CH50, SUSANA SERUM, UPE RAND, C4, SPE, PATRICK #### [facility] , Serum homogeneous pattern an tinuclear antibody (PATRICK) titerOrdered By: Clemente Fragoso on 03-13-2024 Homogenous nuclear Ab pattern (S) [Titer] N/A [facility] Serum nuclear antibody titer Ordered By: Clemente Fragoso on 03-13-2024 Nuclear Ab (S) [Titer] Negative . [facility] Comment on above: Negative <1:80 Borde rline 1:80 Positive >1:80ICAP nomenclature: [id number] more information about Hep-2 cell patterns useANApatterns.org, the official website for theInternational Consensus on Antinuclear Antibody (PATRICK)Patterns (ICAP).Performed at: - [facility] [id number] Director: Fareed Santos PhD, Phone: [phone] Serum or plasma albumin/glob ulin mass ratioOrdered By: Clemente Fragoso on 03-13-2024 Albumin/Globulin [Mass ratio] 1.1 {ratio} Normal [facility] Comment on above: Performed By: #### C MP, ADDONUAPLUS, ESR, CBC, CK, ARLENE, CRP, FE and TIBC #### [place] [address] [place] #### SSA, SUSANA,URINE, C3, SSB, KAPPA, CH50, SUSANA SERUM, UPE RAND, C4, SPE, PATRICK #### [facility] , Albumin/Globulin [Mass ratio] 0.8 {ratio} Normal 0.7-1.7 [facility] Comment on above: Performed By: #### C BC, FE and TIBC, ARLENE #### [facility] [address] [place] [address] [place] #### LAURA #### [facility] , Serum or plasma alpha 1 glob ulin measurement by electrophoresis (mass/volume)Ordered By: Clemente Fragoso on 03-13-2024 Alpha 1 globulin Elph [Mass/Vol] 0.5 g/dL High 0.0-0.4 [facility] Serum or plasma alpha 2 glob ulin measurement by electrophoresis (mass/volume)Ordered By: Clemente Fragoso on 03-13-2024 Alpha 2 globulin Elph [Mass/Vol] 1.1 g/dL High 0.4-1.0 [facility] Serum or plasma anion gap de terminationOrdered By: Clemente Fragoso on 03-13-2024 Anion gap [Moles/Vol] 8.3 mmol/L Normal 6.0-15.0 [facility] Comment on above: Performed By: #### C MP, ADDONUAPLUS, ESR, CBC, CK, ARLENE, CRP, FE and TIBC #### [facility] [address] [place] [address] [place] #### SSA, SUSANA,URINE, C3, SSB, KAPPA, CH50, SUSANA SERUM, UPE RAND, C4, SPE, PATRICK #### [facility] , Serum or plasma beta globuli n measurement by electrophoresis (mass/volume)Ordered By: Clemente Fragoso on 03-13-2024 Beta globulin Elph [Mass/Vol] 1.2 g/dL 0.7-1.3 [facility] Serum or plasma complement C 3 measurement (mass/volume)Ordered By: Clemente Fragoso on 03-13-2024 Complement C3 [Mass/Vol] 172 mg/dL High 82-167 [facility] Comment on above: Performed at: [place] [id number] Director: Fareed Santos PhD, Phone: [phone] Serum or plasma complement C 4 measurement (mass/volume)Ordered By: Clemente Fragoso on 03-13-2024 Complement C4 [Mass/Vol] 32 mg/dL 12-38 [facility] Serum or plasma gamma globul in measurement by electrophoresis (mass/volume)Ordered By: Clemente Fragoso on 03-13-2024 Gamma globulin Elph [Mass/Vol] 1.4 g/dL 0.4-1.8 [facility] Sodium [Moles/volume] in Ser um or PlasmaOrdered By: Clemente Fragoso on 03-13-2024 Sodium [Moles/Vol] 135 mmol/L Low 136-145 [facility] Comment on above: Performed By: #### C MP, ADDONUAPLUS, ESR, CBC, CK, ARLENE, CRP, FE and TIBC #### [facility] [address] #### SSA, SUSANA,URINE, C3, SSB, KAPPA, CH50, SUSANA SERUM, UPE RAND, C4, SPE, PATRICK #### [facility] , Specific gravity Test strip (U) [Rel density]Ordered By: Clemente Fragoso on 03-13-2024 Specific gravity (U) [Rel density] 1.015 1.001-1.030 [facility] Transferrin [Mass/volume] in Serum or PlasmaOrdered By: Clemente Fragoso on 03-13-2024 Transferrin [Mass/Vol] 264 mg/dL Normal 203-362 [facility] Comment on above: Performed By: #### C MP, ADDONUAPLUS, ESR, CBC, CK, ARLENE, CRP, FE and TIBC #### [facility] [address] #### SSA, SUSANA,URINE, C3, SSB, KAPPA, CH50, SUSANA SERUM, UPE RAND, C4, SPE, PATRICK #### [facility] , Urea nitrogen [Mass/volume] in Serum or PlasmaOrdered By: Clemente Fragoso on 03-13-2024 Urea nitrogen [Mass/Vol] 14 mg/dL Normal 7-25 [facility] Comment on above: Performed By: #### C MP, ADDONUAPLUS, ESR, CBC, CK, ARLENE, CRP, FE and TIBC #### [facility] [address] [place] [address] [place] #### SSA, SUSANA,URINE, C3, SSB, KAPPA, CH50, SUSANA SERUM, UPE RAND, C4, SPE, PATRICK #### [facility] , Urine alpha 1 globulin/total protein by electrophoresisOrdered By: Clemente Fragoso on 03-13-2024 Alpha 1 globulin Elph (U) [Mass fraction] 2.4 % . [facility] Urine alpha 2 globulin/total protein ratio by electrophoresisOrdered By: Clemente Fragoso on 03-13-2024 Alpha 2 globulin Elph (U) [Mass fraction] 13.7 % . [facility] Urine appearanceOrdered By: Clmeente Fragoso on 03-13-2024 Appearance (U) Clear Normal Clear [facility] Comment on above: Order Comment: Name Collection Type:: Clean-Voided Midstream Performed By: #### C MP, ADDONUAPLUS, ESR, CBC, CK, ARLENE, CRP, FE and TIBC #### [facility] [address] [place] [address] [place] #### SSA, SUSANA,URINE, C3, SSB, KAPPA, CH50, SUSANA SERUM, UPE RAND, C4, SPE, PARTICK #### [facility] , Urine beta globulin measurem ent by electrophoresis (mass/volume)Ordered By: Clemente Fragoso on 03-13-2024 Beta globulin Elph (U) [Mass/Vol] 29.3 % . [facility] Urobilinogen Test strip (U) [Mass/Vol]Ordered By: Clemente Fragoso on 03-13-2024 Urobilinogen (U) [Mass/Vol] Normal mg/dL Normal [facility] pH of Urine by Test stripOrd ered By: Clemente Fragoso on 03-13-2024 pH (U) 5.5 [pH] Normal 5.0-9.0 [facility] Comment on above: Order Comment: Name Collection Type:: Clean-Voided Midstream Performed By: #### C MP, ADDONUAPLUS, ESR, CBC, CK, ARLENE, CRP, FE and TIBC #### [facility] [address] [place] [address] #### SSA, SUSANA,URINE, C3, SSB, KAPPA, CH50, [...] Covarrubias MD on 08/25/2023 8:26 PM Normal [facility] COMPLETE BLOOD COUNTon 08-10 Erythrocyte distribution width (RBC) [Ratio] 20.3 % High 11.5-15.0 [facility] Comment on above: Performed By: #### 8 2476-06, 1987-10, #### [facility] ([id number]) [address], [address] [place] [address] Hematocrit (Bld) [Volume fraction] 32.3 % Low 39-49 [facility] Comment on above: Performed By: #### 8 24712-03, 1987-10, #### [facility] ([id number]) [address] [place] [address] Hemoglobin (Bld) [Mass/Vol] 10.5 g/dL Low 13.0-17.0 [facility] Comment on above: Performed By: #### 8 24712-03, 1987-10, #### [facility] ([id number]) [address], [address] [place] [address] MCH (RBC) [Entitic mass] 28.2 pg Normal 27-34 [facility] Comment on above: Performed By: #### 8 24712-03, 1987-10, 19820-7 #### [facility] ([id number]) [address], [address] [place] [address] MCHC (RBC) [Mass/Vol] 32.5 g/dL Normal 32-36 [facility] Comment on above: Performed By: #### 8 24712-03, 1987-10, #### [facility] ([id number]) [address], [address] [place] [address] MCV (RBC) [Entitic vol] 87 fL Normal 80-100 [facility] Comment on above: Performed By: #### 8 24712-03, 1987-10, #### [facility] ([id number]) [address], [address] [place] [address] Platelet mean volume (Bld) [Entitic vol] 9.7 fL Normal 7-12 [facility] Comment on above: Performed By: #### 8 24712-03, 1987-10, 13379-8 #### [facility] ([id number]) [address], [address] [place] [address] Platelets (Bld) [#/Vol] 320 10*3/uL Normal 150-450 [facility] Comment on above: Performed By: #### 8 24712-03, 1987-10, 50379-1 #### [facility] ([id number]) [address] [place] [address] RBC COUNT 3.73 X10E12/L Low 4.10-5.70 [facility] Comment on above: Performed By: #### 8 24712-03, 1987-10, 73279-9 #### [facility] ([id number]) [address] [place] [address] WBC (Bld) [#/Vol] 9.0 10*3/uL Normal 4.0-11.0 [facility] Comment on above: Performed By: #### 8 2477, 1987-10, 37937-8 #### [facility] ([id number]) [address] [place] [address] COMPREHENSIVE METABOLIC PANE Angel 08-11-2023 Albumin [Mass/Vol] 3.2 g/dL Normal 3.2-5.3 [facility] Comment on above: Performed By: #### 8 2477, 1987-10, 55465-4 #### [facility] ([id number]) [address], [address] [place] [address] ALP [Catalytic activity/Vol] 80 U/L Normal 39-130 [facility] Comment on above: Performed By: #### 8 2477, 1987-10, 75727-2 #### [facility] ([id number]) [address], [address] [place] [address] ALT [Catalytic activity/Vol] 15 U/L Normal 0-40 [facility] Comment on above: Performed By: #### 8 24712-03, 1987-10, #### [facility] ([id number]) [address] [place] [address] Anion gap [Moles/Vol] 7 mmol/L Normal 5-15 [facility] Comment on above: Performed By: #### 8 24712-03, 1987-10, #### [facility] ([id number]) [address] [place] [address] AST [Catalytic activity/Vol] 22 U/L Normal 0-41 [facility] Comment on above: Performed By: #### 8 24712-03, 1987-10, #### [facility] ([id number]) [address] [place] [address] Bilirubin [Mass/Vol] 0.8 mg/dL Normal 0.3-1.2 [facility] Comment on above: Performed By: #### 8 2477, 1987-10, 64094-6 #### [facility] ([id number]) [address] [place] [address] Calcium [Mass/Vol] 10.1 mg/dL Normal 8.5-10.5 [facility] Comment on above: Performed By: #### 8 2477, 1987-10, 09621-6 #### [facility] ([id number]) [address] [place] [address] Chloride [Moles/Vol] 98 mmol/L Normal 98-109 [facility] Comment on above: Performed By: #### 8 2477, 1987-10, 24602-4 #### [facility] ([id number]) [address] [place] [address] CO2 [Moles/Vol] 34 mmol/L High 22-32 [facility] Comment on above: Performed By: #### 8 24712-03, 1987-10, #### [facility] ([id number]) [address] [place] [address] Creatinine [Mass/Vol] 0.62 mg/dL Normal 0.60-1.30 [facility] Comment on above: Result Comment: METH OD TRACEABLE TO IDMS STANDARD Performed By: #### 8 24712-03, 1987-10, 45217-5 #### [facility] ([id number]) [address] [place] [address] eGFR (CKD-EPI) NON-RACE DEPENDENT >90 Normal >59 [facility] Comment on above: Result Comment: Reported eGFR is based on the CKD-EPI 2020 equation that does not use a race coefficient. Performed By: #### 8 2477, 1987-10, #### [facility] ([id number]) [address] [place] [address] Glucose [Mass/Vol] 105 mg/dL High 65-99 [facility] Comment on above: Performed By: #### 8 2477, 1987-10, 01259-8 #### [facility] ([id number]) [address] [place] [address] Potassium [Moles/Vol] 4.2 mmol/L Normal 3.5-5.0 [facility] Comment on above: Performed By: #### 8 2477, 1987-10, 32444-5 #### [facility] ([id number]) [address] [place] [address] Protein [Mass/Vol] 6.6 g/dL Normal 6.0-8.0 [facility] Comment on above: Performed By: #### 8 2477, 1987-10, 30246-5 #### [facility] ([id number]) [address] [place] [address] Sodium [Moles/Vol] 139 mmol/L Normal 134-146 [facility] Comment on above: Performed By: #### 8 24712-03, 1987-10, 41377-9 #### [facility] ([id number]) [address] [place] [address] Urea nitrogen [Mass/Vol] 20 mg/dL Normal 5-27 [facility] Comment on above: Performed By: #### 8 24712-03, 1987-10, 96248-5 #### [facility] ([id number]) [address] [place] [address] MAGNESIUMon 08-11-2023 Magnesium [Mass/Vol] 2.0 mg/dL Normal 1.8-2.6 [facility] Comment on above: Performed By: #### 8 24712-03, 1987-10, 78087-3 #### [facility] ([id number]) [address] [place] [address] COMPLETE BLOOD COUNTon 08-09 Erythrocyte distribution width (RBC) [Ratio] 19.3 % High 11.5-15.0 [facility] Comment on above: Performed By: #### 8 2477, 1987-10, 85468-9 #### [facility] ([id number]) [address] [place] [address] Hematocrit (Bld) [Volume fraction] 30.1 % Low 39-49 [facility] Comment on above: Performed By: #### 8 2477, 1987-10, 43505-1 #### [facility] ([id number]) [address] [place] [address] Hemoglobin (Bld) [Mass/Vol] 9.9 g/dL Low 13.0-17.0 [facility] Comment on above: Performed By: #### 8 24712-03, 1987-10, 79802-0 #### [facility] ([id number]) [address] [place] [address] MCH (RBC) [Entitic mass] 28.0 pg Normal 27-34 [facility] Comment on above: Performed By: #### 8 2476-06, 1987-10, #### [facility] ([id number]) [address] [place] [address] MCHC (RBC) [Mass/Vol] 32.9 g/dL Normal 32-36 [facility] Comment on above: Performed By: #### 8 24712-03, 1987-10, #### [facility] ([id number]) [address] [place] [address] MCV (RBC) [Entitic vol] 85 fL Normal 80-100 [facility] Comment on above: Performed By: #### 8 24712-03, 1987-10, 11159-5 #### [facility] ([id number]) [address] [place] [address] Platelet mean volume (Bld) [Entitic vol] 9.9 fL Normal 7-12 [facility] Comment on above: Performed By: #### 8 24712-03, 1987-10, 93512-5 #### [facility] ([id number]) [address] [place] [address] Platelets (Bld) [#/Vol] 341 10*3/uL Normal 150-450 [facility] Comment on above: Performed By: #### 8 24712-03, 1987-10, 98354-1 #### [facility] ([id number]) [address] [place] [address] RBC COUNT 3.53 X10E12/L Low 4.10-5.70 [facility] Comment on above: Performed By: #### 8 2477, 1987-10, 75938-9 #### [facility] ([id number]) [address] [place] [address] WBC (Bld) [#/Vol] 9.7 10*3/uL Normal 4.0-11.0 [facility] Comment on above: Performed By: #### 8 2477, 1987-10, 75915-6 #### [facility] ([id number]) [address] [place] [address] COMPREHENSIVE METABOLIC PANE Angel 08-10-2023 Albumin [Mass/Vol] 3.3 g/dL Normal 3.2-5.3 [facility] Comment on above: Performed By: #### 8 2477, 1987-10, 62623-7 #### [facility] ([id number]) [address] [place] [address] ALP [Catalytic activity/Vol] 79 U/L Normal 39-130 [facility] Comment on above: Performed By: #### 8 2477, 1987-10, 97966-7 #### [facility] ([id number]) [address] [place] [address] ALT [Catalytic activity/Vol] 12 U/L Normal 0-40 [facility] Comment on above: Performed By: #### 8 2477, 1987-10, 98276-1 #### [facility] ([id number]) [address] [place] [address] Anion gap [Moles/Vol] 5 mmol/L Normal 5-15 [facility] Comment on above: Performed By: #### 8 2477, 1987-10, 27881-9 #### [facility] ([id number]) [address] [place] [address] AST [Catalytic activity/Vol] 32 U/L Normal 0-41 [facility] Comment on above: Performed By: #### 8 2477, 1987-10, 31695-0 #### [facility] ([id number]) [address] [place] [address] Bilirubin [Mass/Vol] 0.8 mg/dL Normal 0.3-1.2 [facility] Comment on above: Performed By: #### 8 24712-03, 1987-10, 89415-7 #### [facility] ([id number]) [address] [place] [address] Calcium [Mass/Vol] 10.4 mg/dL Normal 8.5-10.5 [facility] Comment on above: Performed By: #### 8 24712-03, 1987-10, 89706-9 #### [facility] ([id number]) [address] [place] [address] Chloride [Moles/Vol] 98 mmol/L Normal 98-109 [facility] Comment on above: Performed By: #### 8 2477, 1987-10, 69406-1 #### [facility] ([id number]) [address] [place] [address] CO2 [Moles/Vol] 34 mmol/L High 22-32 [facility] Comment on above: Performed By: #### 8 2477, 1987-10, 41691-7 #### [facility] ([id number]) [address] [place] [address] Creatinine [Mass/Vol] 0.56 mg/dL Low 0.60-1.30 [facility] Comment on above: Result Comment: METH OD TRACEABLE TO IDMS STANDARD Performed By: #### 8 2477, 1987-10, 98602-0 #### [facility] ([id number]) [address] [place] [address] eGFR (CKD-EPI) NON-RACE DEPENDENT >90 Normal >59 [facility] Comment on above: Result Comment: Reported eGFR is based on the CKD-EPI 2020 equation that does not use a race coefficient. Performed By: #### 8 24712-03, 1987-10, #### [facility] ([id number]) [address] [place] [address] Glucose [Mass/Vol] 83 mg/dL Normal 65-99 [facility] Comment on above: Performed By: #### 8 24712-03, 1987-10, 02066-6 #### [facility] ([id number]) [address] [place] [address] Potassium [Moles/Vol] 4.5 mmol/L Normal 3.5-5.0 [facility] Comment on above: Performed By: #### 8 24712-03, 1987-10, #### [facility] ([id number]) [address] [place] [address] Protein [Mass/Vol] 6.5 g/dL Normal 6.0-8.0 [facility] Comment on above: Performed By: #### 8 24712-03, 1987-10, 32536-7 #### [facility] ([id number]) [address] [place] [address] Sodium [Moles/Vol] 137 mmol/L Normal 134-146 [facility] Comment on above: Performed By: #### 8 2477, 1987-10, 74237-9 #### [facility] ([id number]) [address] [place] [address] Urea nitrogen [Mass/Vol] 14 mg/dL Normal 5-27 [facility] Comment on above: Performed By: #### 8 2477, 1987-10, 07918-2 #### [facility] ([id number]) [address] [place] [address] MAGNESIUMon 08-10-2023 Magnesium [Mass/Vol] 2.2 mg/dL Normal 1.8-2.6 [facility] Comment on above: Performed By: #### 8 24712-03, 1987-10, 82412-9 #### [facility] ([id number]) [address], [address] [place] [address] Magnesium [Mass/Vol] 1.7 mg/dL Low 1.8-2.6 [facility] Comment on above: Performed By: #### 8 24712-03, 1987-10, 73388-0 #### [facility] ([id number]) [address], [address] [place] [address] SODIUMon 08-10-2023 Sodium [Moles/Vol] 139 mmol/L Normal 134-146 [facility] Comment on above: Performed By: #### 8 24712-03, 1987-10, 62350-9 #### [facility] ([id number]) [address], [address] [place] [address] Sodium [Moles/Vol] 137 mmol/L Normal 134-146 [facility] Comment on above: Performed By: #### 8 2477, 1987-10, 19074-1 #### [facility] ([id number]) [address], [address] [place] [address] Sodium [Moles/Vol] 140 mmol/L Normal 134-146 [facility] [facility] Comment on above: Performed By: #### 8 2477, 1987-10, 50089-0 #### [facility] ([id number]) [address] [place] [address] COMPLETE BLOOD COUNTon 08-08 Erythrocyte distribution width (RBC) [Ratio] 18.5 % High 11.5-15.0 [facility] Comment on above: Performed By: #### 8 24712-03, 1987-10, 23917-0 #### [facility] ([id number]) [address], [address] [place] [address] Hematocrit (Bld) [Volume fraction] 24.8 % Low 39-49 [facility] Comment on above: Performed By: #### 8 24712-03, 1987-10, 32626-9 #### [facility] ([id number]) [address], [address] [place] [address] Hemoglobin (Bld) [Mass/Vol] 8.3 g/dL Low 13.0-17.0 [facility] Comment on above: Performed By: #### 8 24712-03, 1987-10, 30771-1 #### [facility] ([id number]) [address], [address] [place] [address] MCH (RBC) [Entitic mass] 28.6 pg Normal 27-34 [facility] Comment on above: Performed By: #### 8 24712-03, 1987-10, 56349-8 #### [facility] ([id number]) [address], [address] [place] [address] MCHC (RBC) [Mass/Vol] 33.7 g/dL Normal 32-36 [facility] Comment on above: Performed By: #### 8 24712-03, 1987-10, 77865-4 #### [facility] ([id number]) [address], [address] [place] [address] MCV (RBC) [Entitic vol] 85 fL Normal 80-100 [facility] Comment on above: Performed By: #### 8 24712-03, 1987-10, 96262-4 #### [facility] ([id number]) [address], [address] [place] [address] Platelet mean volume (Bld) [Entitic vol] 10.1 fL Normal 7-12 [facility] Comment on above: Performed By: #### 8 24712-03, 1987-10, 18232-9 #### [facility] ([id number]) [address] [place] [address] Platelets (Bld) [#/Vol] 270 10*3/uL Normal 150-450 [facility] Comment on above: Performed By: #### 8 24712-03, 1987-10, 14694-4 #### [facility] ([id number]) [address] [address] [place] [address] RBC COUNT 2.91 X10E12/L Low 4.10-5.70 [facility] Comment on above: Performed By: #### 8 24712-03, 1987-10, 60809-2 #### [facility] ([id number]) [address] [address] [place] [address] WBC (Bld) [#/Vol] 8.9 10*3/uL Normal 4.0-11.0 [facility] Comment on above: Performed By: #### 8 2477, 1987-10, 28937-3 #### [facility] ([id number]) [address] [place] [address] COMPREHENSIVE METABOLIC PANE Angel 08-09-2023 Albumin [Mass/Vol] 3.0 g/dL Low 3.2-5.3 [facility] Comment on above: Performed By: #### 8 2477, 1987-10, 34068-4 #### [facility] ([id number]) [address], [address] [place] [address] ALP [Catalytic activity/Vol] 70 U/L Normal 39-130 [facility] Comment on above: Performed By: #### 8 2477-, 1987-10, 43058-2 #### [facility] ([id number]) [address], [address] [place] [address] ALT [Catalytic activity/Vol] 8 U/L Normal 0-40 [facility] Comment on above: Performed By: #### 8 2477, 1987-10, 19682-1 #### [facility] ([id number]) [address], [address] [place] [address] Anion gap [Moles/Vol] 5 mmol/L Normal 5-15 [facility] Comment on above: Performed By: #### 8 2477, 1987-10, 74220-7 #### [facility] ([id number]) [address] [place] [address] AST [Catalytic activity/Vol] 16 U/L Normal 0-41 [facility] Comment on above: Performed By: #### 8 2477, 1987-10, 87894-2 #### [facility] ([id number]) [address], [address] [place] [address] Bilirubin [Mass/Vol] 0.5 mg/dL Normal 0.3-1.2 [facility] Comment on above: Performed By: #### 8 2477, 1987-10, 29115-6 #### [facility] ([id number]) [address], [address] [place] [address] Calcium [Mass/Vol] 9.8 mg/dL Normal 8.5-10.5 [facility] Comment on above: Performed By: #### 8 2477, 1987-10, 37587-1 #### [facility] ([id number]) [address] [place] [address] Chloride [Moles/Vol] 102 mmol/L Normal 98-109 [facility] Comment on above: Performed By: #### 8 24712-03, 1987-10, 01835-9 #### [facility] ([id number]) [address], [address] [place] [address] CO2 [Moles/Vol] 32 mmol/L Normal 22-32 [facility] Comment on above: Performed By: #### 8 24712-03, 1987-10, #### [facility] ([id number]) [address] [address] Creatinine [Mass/Vol] 0.54 mg/dL Low 0.60-1.30 [facility] Comment on above: Result Comment: METH OD TRACEABLE TO IDMS STANDARD Performed By: #### 8 24712-03, 1987-10, #### [facility] ([id number]) [address] [place] [address] eGFR (CKD-EPI) NON-RACE DEPENDENT >90 Normal >59 [facility] Comment on above: Result Comment: Reported eGFR is based on the CKD-EPI 2020 equation that does not use a race coefficient. Performed By: #### 8 24712-03, 1987-10, #### [facility] ([id number]) [address], [address] [place] [address] Glucose [Mass/Vol] 110 mg/dL High 65-99 [facility] Comment on above: Performed By: #### 8 24712-03, 1987-10, #### [facility] ([id number]) [address], [address] [place] [address] Potassium [Moles/Vol] 4.3 mmol/L Normal 3.5-5.0 [facility] Comment on above: Performed By: #### 8 24712-03, 1987-10, #### [facility] ([id number]) [address], [address] [place] [address] Protein [Mass/Vol] 5.8 g/dL Low 6.0-8.0 [facility] Comment on above: Performed By: #### 8 2477, 1987-10, 93553-5 #### [facility] ([id number]) [address] [place] [address] Sodium [Moles/Vol] 139 mmol/L Normal 134-146 [facility] Comment on above: Performed By: #### 8 24712-03, 1987-10, 18112-1 #### [facility] ([id number]) [address] [place] [address] Urea nitrogen [Mass/Vol] 16 mg/dL Normal 5-27 [facility] Comment on above: Performed By: #### 8 24712-03, 1987-10, 69275-8 #### [facility] ([id number]) [address], [address] [place] [address] MAGNESIUMon 08-09-2023 Magnesium [Mass/Vol] 1.9 mg/dL Normal 1.8-2.6 [facility] Comment on above: Performed By: #### 8 2477, 1987-10, 02843-4 #### [facility] ([id number]) [address] [place] [address] SODIUMon 08-09-2023 Sodium [Moles/Vol] 140 mmol/L Normal 134-146 [facility] Comment on above: Performed By: #### 8 2477, 1987-10, 97625-6 #### [facility] ([id number]) [address] [place] [address] Sodium [Moles/Vol] 143 mmol/L Normal 134-146 [facility] Comment on above: Performed By: #### 8 2477-, 1987-10, 96685-2 #### [facility] ([id number]) [address] [place] [address] Sodium [Moles/Vol] 140 mmol/L Normal 134-146 [facility] Comment on above: Performed By: #### 8 2477-, 1987-10, 19332-9 #### [facility] ([id number]) [address], [address] [place] [address] COMPLETE BLOOD COUNTon 08-07 Erythrocyte distribution width (RBC) [Ratio] 18.6 % High 11.5-15.0 [facility] Comment on above: Performed By: #### Chelsi JOINER CMP, 79218-1 #### [facility] ([id number]) [address] [place] [address] Hematocrit (Bld) [Volume fraction] 26.3 % Low 39-49 [facility] Comment on above: Performed By: #### Chelsi JOINER CMP, #### [facility] ([id number]) [address] [place] [address] Hemoglobin (Bld) [Mass/Vol] 8.7 g/dL Low 13.0-17.0 [facility] Comment on above: Performed By: #### Chelsi JOINER, CMP, #### [facility] ([id number]) [address] [place] [address] MCH (RBC) [Entitic mass] 28.0 pg Normal 27-34 [facility] Comment on above: Performed By: #### Chelsi JOINER, CMP, #### [facility] ([id number]) [address], [address] [place] [address] MCHC (RBC) [Mass/Vol] 33.0 g/dL Normal 32-36 [facility] Comment on above: Performed By: #### C BC, CMP, #### [facility] ([id number]) [address], [address] [place] [address] MCV (RBC) [Entitic vol] 85 fL Normal 80-100 [facility] Comment on above: Performed By: #### Chelsi BC, CMP, #### [facility] ([id number]) [address] [place] [address] Platelet mean volume (Bld) [Entitic vol] 10.1 fL Normal 7-12 [facility] Comment on above: Performed By: #### Chelsi BC, CMP, #### [facility] ([id number]) [address] [place] [address] Platelets (Bld) [#/Vol] 234 10*3/uL Normal 150-450 [facility] Comment on above: Performed By: #### Chelsi BC, CMP, #### [facility] ([id number]) [address] [place] [address] RBC COUNT 3.10 X10E12/L Low 4.10-5.70 [facility] Comment on above: Performed By: #### Chelsi JOINER, CMP, #### [facility] ([id number]) [address] [place] [address] WBC (Bld) [#/Vol] 7.4 10*3/uL Normal 4.0-11.0 [facility] Comment on above: Performed By: #### Chelsi BC, CMP, #### [facility] ([id number]) [address] [place] [address] COMPREHENSIVE METABOLIC PANE Angel 08-08-2023 Albumin [Mass/Vol] 3.2 g/dL Normal 3.2-5.3 [facility] Comment on above: Performed By: #### C BC, CMP, #### [facility] ([id number]) [address], [address] [place] [address] ALP [Catalytic activity/Vol] 70 U/L Normal 39-130 [facility] Comment on above: Performed By: #### Chelsi BC, CMP, #### [facility] ([id number]) [address] [place] [address] ALT [Catalytic activity/Vol] 10 U/L Normal 0-40 [facility] Comment on above: Performed By: #### Chelsi JOINER, CMP, #### [facility] ([id number]) [address] [place] [address] Anion gap [Moles/Vol] 7 mmol/L Normal 5-15 [facility] Comment on above: Performed By: #### Chelsi BC, CMP, #### [facility] ([id number]) [address] [place] [address] AST [Catalytic activity/Vol] 17 U/L Normal 0-41 [facility] Comment on above: Performed By: #### Chelsi BC, CMP, #### [facility] ([id number]) [address] [place] [address] Bilirubin [Mass/Vol] 0.6 mg/dL Normal 0.3-1.2 [facility] Comment on above: Performed By: #### Chelsi BC, CMP, #### [facility] ([id number]) [address] [place] [address] Calcium [Mass/Vol] 9.3 mg/dL Normal 8.5-10.5 [facility] Comment on above: Performed By: #### Chelsi BC, CMP, #### [facility] ([id number]) [address] [place] [address] Chloride [Moles/Vol] 104 mmol/L Normal 98-109 [facility] Comment on above: Performed By: #### Chelsi JOINER [facility], #### [facility] ([id number]) [address] [place] [address] CO2 [Moles/Vol] 32 mmol/L Normal 22-32 [facility] Comment on above: Performed By: #### Chelsi JOINER [facility], #### [facility] ([id number]) [address], [facility] [address] [place] [address] Creatinine [Mass/Vol] 0.59 mg/dL Low 0.60-1.30 [facility] Comment on above: Result Comment: METH OD TRACEABLE TO IDMS STANDARD Performed By: #### Chelsi JOINER CMP, #### [facility] ([id number]) [address] [place] [address] eGFR (CKD-EPI) NON-RACE DEPENDENT >90 Normal >59 [facility] Comment on above: Result Comment: Reported eGFR is based on the CKD-EPI 2020 equation that does not use a race coefficient. Performed By: #### Chelsi JOINER CMP, #### [facility] ([id number]) [address] [place] [address] Glucose [Mass/Vol] 156 mg/dL High 65-99 [facility] Comment on above: Performed By: #### Chelsi JOINER [facility], #### [facility] ([id number]) [address], [facility] [address] [place] [address] Potassium [Moles/Vol] 3.7 mmol/L Normal 3.5-5.0 [facility] Comment on above: Performed By: #### Chelsi JOINER CMP, #### [facility] ([id number]) [address] [place] [address] Protein [Mass/Vol] 6.0 g/dL Normal 6.0-8.0 [facility] Comment on above: Performed By: #### C MARISEL, [facility], 53557-9 #### [facility] ([id number]) [address] [place] [address] Sodium [Moles/Vol] 143 mmol/L Normal 134-146 [facility] Comment on above: Performed By: #### C MARISEL, [facility], 58112-2 #### [facility] ([id number]) [address] [place] [address] Urea nitrogen [Mass/Vol] 14 mg/dL Normal 5-27 [facility] Comment on above: Performed By: #### Chelsi JOINER, [facility], 38640-0 #### [facility] ([id number]) [address] [place] [address] FL SWALLOW MOTILITY FUNCTION on 08-08-2023 FL [...] Phillip MD on 08/08/2023 4:54 PM Normal [facility] MAGNESIUMon 08-08-2023 Magnesium [Mass/Vol] 2.2 mg/dL Normal 1.8-2.6 [facility] Comment on above: Performed By: #### 8 2477-, 1987-10, 51692-2 #### [facility] ([id number]) [address] [place] [address] Magnesium [Mass/Vol] 1.6 mg/dL Low 1.8-2.6 [facility] Comment on above: Performed By: #### Chelsi JOINER CMP, #### [facility] ([id number]) [address] [place] [address] POTASSIUMon 08-08-2023 Potassium [Moles/Vol] 3.7 mmol/L Normal 3.5-5.0 [facility] Comment on above: Performed By: #### 8 2477, 1987-10, 50350-7 #### [facility] ([id number]) [address] [place] [address] SODIUMon 08-08-2023 Sodium [Moles/Vol] 143 mmol/L Normal 134-146 [facility] Comment on above: Performed By: #### 8 2477, 1987-10, 87771-6 #### [facility] ([id number]) [address] [place] [address] Sodium [Moles/Vol] 142 mmol/L Normal 134-146 [facility] Comment on above: Performed By: #### Chelsi JOINER CMP, #### [facility] ([id number]) [address] [place] [address] ARTERIAL BLOOD GASon 024 JOHN'S TEST Normal [facility] Comment on above: Performed By: #### Chelsi JOINER CMP, #### [facility] ([id number]) [address] [place] [address] BASE,DEFICIT 1.0 MMOL/L Normal 0.0-2.0 [facility] Comment on above: Performed By: #### Chelsi JOINER, CMP, #### [facility] ([id number]) [address] [place] [address] Body temperature 98.6 [degF] Normal 37.0 [facility] Comment on above: Performed By: #### Chelsi JOINER CMP, #### [facility] ([id number]) [address] [place] [address] HCO3 (Bld) [Moles/Vol] 24.6 mmol/L Normal 22-26 [facility] Comment on above: Performed By: #### Chelsi JOINER CMP, #### [facility] ([id number]) [address] [place] [address] INSP. O2 CONC. 40 % Normal [facility] Comment on above: Performed By: #### Chelsi JOINER CMP, #### [facility] ([id number]) [address] [place] [address] Oxygen (Bld) [Partial pressure] 103 mm[Hg] High 80-100 [facility] Comment on above: Performed By: #### Chelsi JOINER CMP, #### [facility] ([id number]) [address] [place] [address] Oxygen saturation in Blood 97.0 % Normal >90 [facility] Comment on above: Performed By: #### Chelsi JOINER CMP, #### [facility] ([id number]) [address] [place] [address] OXYGEN SOURCE NPPV Normal [facility] Comment on above: Performed By: #### Chelsi JOINER CMP, #### [facility] ([id number]) [address] [place] [address] PCO2 47.3 MMHG High 35-45 [facility] Comment on above: Performed By: #### Chelsi JOINER CMP, #### [facility] ([id number]) [address] [place] [address] pH (Bld) 7.324 [pH] Low 7.350-7.450 [facility] Comment on above: Performed By: #### Chelsi JOINER CMP, #### [facility] ([id number]) [address] [place] [address] SAMPLE SITE Terri Normal [facility] Comment on above: Performed By: #### Chelsi JOINER CMP, #### [facility] ([id number]) [address] [place] [address] SAMPLE TYPE ARTERIAL Normal [facility] Comment on above: Performed By: #### Chelsi JOINER CMP, #### [facility] ([id number]) [address] [place] [address] JOHN'S TEST Pass Normal [facility] Comment on above: Performed By: #### Chelsi JOINER CMP, #### [facility] ([id number]) [address] [place] [address] Base excess Calc (Bld) [Moles/Vol] 0.0 mmol/L Normal 0.0-2.0 [facility] Comment on above: Performed By: #### Chelsi JOINER CMP, #### [facility] ([id number]) [address] [place] [address] Body temperature 98.6 [degF] Normal 37.0 [facility] Comment on above: Performed By: #### Chelsi JOINER CMP, #### [facility] ([id number]) [address] [place] [address] HCO3 (Bld) [Moles/Vol] 24.4 mmol/L Normal 22-26 [facility] Comment on above: Performed By: #### Chelsi JOINER CMP, #### [facility] ([id number]) [address] [place] [address] INSP. O2 CONC. 28 % Normal [facility] Comment on above: Performed By: #### Chelsi JOINER CMP, #### [facility] ([id number]) [address] [place] [address] Oxygen (Bld) [Partial pressure] 80 mm[Hg] Normal 80-100 [facility] Comment on above: Performed By: #### Chelsi JOINER CMP, #### [facility] ([id number]) [address] [place] [address] Oxygen saturation in Blood 96.0 % Normal >90 [facility] Comment on above: Performed By: #### Chelsi JOINER CMP, #### [facility] ([id number]) [address] [place] [address] OXYGEN SOURCE NC Normal [facility] Comment on above: Performed By: #### Chelsi JOINER CMP, #### [facility] ([id number]) [address] [place] [address] PCO2 36.4 MMHG Normal 35-45 [facility] Comment on above: Performed By: #### Chelsi JOINER CMP, #### [facility] ([id number]) [address] [place] [address] pH (Bld) 7.434 [pH] Normal 7.350-7.450 [facility] Comment on above: Performed By: #### Chelsi JOINER CMP, #### [facility] ([id number]) [address] [place] [address] SAMPLE SITE LRad Normal [facility] Comment on above: Performed By: #### C MARISEL, CMP, #### [facility] ([id number]) [address] [place] [address] SAMPLE TYPE ARTERIAL Normal [facility] Comment on above: Performed By: #### C BC, CMP, #### [facility] ([id number]) [address] [place] [address] COMPLETE BLOOD COUNTon 08-06 Erythrocyte distribution width (RBC) [Ratio] 19.0 % High 11.5-15.0 [facility] Comment on above: Performed By: #### Chelsi JOINER CMP, #### [facility] ([id number]) [address] [place] [address] Hematocrit (Bld) [Volume fraction] 25.2 % Low 39-49 [facility] Comment on above: Performed By: #### C MARISEL CMP, #### [facility] ([id number]) [address] [place] [address] Hemoglobin (Bld) [Mass/Vol] 8.3 g/dL Low 13.0-17.0 [facility] Comment on above: Performed By: #### C MARISEL, CMP, #### [facility] ([id number]) [address] [place] [address] MCH (RBC) [Entitic mass] 27.8 pg Normal 27-34 [facility] Comment on above: Performed By: #### Chelsi JOINER, CMP, #### [facility] ([id number]) [address], [address] [place] [address] MCHC (RBC) [Mass/Vol] 33.0 g/dL Normal 32-36 [facility] Comment on above: Performed By: #### Chelsi JOINER CMP, #### [facility] ([id number]) [address], [address] [place] [address] MCV (RBC) [Entitic vol] 84 fL Normal 80-100 [facility] Comment on above: Performed By: #### Chelsi JOINER CMP, #### [facility] ([id number]) [address], [address] [place] [address] Platelet mean volume (Bld) [Entitic vol] 10.7 fL Normal 7-12 [facility] Comment on above: Performed By: #### Chelsi JOINER CMP, #### [facility] ([id number]) [address], [address] [place] [address] Platelets (Bld) [#/Vol] 234 10*3/uL Normal 150-450 [facility] Comment on above: Performed By: #### Chelsi JOINER CMP, #### [facility] ([id number]) [address], [address] [place] [address] RBC COUNT 3.00 X10E12/L Low 4.10-5.70 [facility] Comment on above: Performed By: #### Chelsi JOINER CMP, #### [facility] ([id number]) [address], [address] [place] [address] WBC (Bld) [#/Vol] 9.1 10*3/uL Normal 4.0-11.0 [facility] Comment on above: Performed By: #### Chelsi JOINER CMP, #### [facility] ([id number]) [address], [address] [place] [address] COMPREHENSIVE METABOLIC PANE Angel 08-07-2023 Albumin [Mass/Vol] 3.1 g/dL Low 3.2-5.3 [facility] Comment on above: Performed By: #### Chelsi JOINER CMP, #### [facility] ([id number]) [address] [place] [address] ALP [Catalytic activity/Vol] 76 U/L Normal 39-130 [facility] Comment on above: Performed By: #### Chelsi JOINER CMP, #### [facility] ([id number]) [address], [address] [place] [address] ALT [Catalytic activity/Vol] 11 U/L Normal 0-40 [facility] Comment on above: Performed By: #### Chelsi JOINER CMP, #### [facility] ([id number]) [address], [address] [place] [address] Anion gap [Moles/Vol] 7 mmol/L Normal 5-15 [facility] Comment on above: Performed By: #### Chelsi JOINER CMP, #### [facility] ([id number]) [address], [address] [place] [address] AST [Catalytic activity/Vol] 16 U/L Normal 0-41 [facility] Comment on above: Performed By: #### Chelsi JOINER CMP, #### [facility] ([id number]) [address], [address] [place] [address] Bilirubin [Mass/Vol] 1.1 mg/dL Normal 0.3-1.2 [facility] Comment on above: Performed By: #### Chelsi JOINER CMP, #### [facility] ([id number]) [address], [address] [place] [address] Calcium [Mass/Vol] 9.6 mg/dL Normal 8.5-10.5 [facility] Comment on above: Performed By: #### C MARISEL [facility], 45612-4 #### [facility] ([id number]) [address], [address] [place] [address] Chloride [Moles/Vol] 112 mmol/L High 98-109 [facility] Comment on above: Performed By: #### Chelsi JOINER [facility], 16992-9 #### [facility] ([id number]) [address], [address] [place] [address] CO2 [Moles/Vol] 29 mmol/L Normal 22-32 [facility] Comment on above: Performed By: #### Chelsi JOINER [facility], #### [facility] ([id number]) [address] [place] [address] Creatinine [Mass/Vol] 0.52 mg/dL Low 0.60-1.30 [facility] Comment on above: Result Comment: METH OD TRACEABLE TO IDMS STANDARD Performed By: #### Chelsi JOINER [facility], 09703-6 #### [facility] ([id number]) [address] [place] [address] eGFR (CKD-EPI) NON-RACE DEPENDENT >90 Normal >59 [facility] Comment on above: Result Comment: Reported eGFR is based on the CKD-EPI 1 equation that does not use a race coefficient. Performed By: #### Chelsi JOINER [facility], #### [facility] ([id number]) [address], [address] [place] [address] Glucose [Mass/Vol] 111 mg/dL High 65-99 [facility] Comment on above: Performed By: #### Chelsi JOINER [facility], 68146-1 #### [facility] ([id number]) [address], [address] [place] [address] Potassium [Moles/Vol] 3.8 mmol/L Normal 3.5-5.0 [facility] Comment on above: Performed By: #### C BC, CMP, 80435-1 #### [facility] ([id number]) [address], [address] [place] [address] Protein [Mass/Vol] 6.0 g/dL Normal 6.0-8.0 [facility] Comment on above: Performed By: #### Chelsi JOINER CMP, #### [facility] ([id number]) [address], [address] [place] [address] Sodium [Moles/Vol] 148 mmol/L High 134-146 [facility] Comment on above: Performed By: #### Chelsi JOINER CMP, 97085-0 #### [facility] ([id number]) [address], [address] [place] [address] Urea nitrogen [Mass/Vol] 13 mg/dL Normal 5-27 [facility] Comment on above: Performed By: #### Chelsi JOINER CMP, #### [facility] ([id number]) [address], [address] [place] [address] MAGNESIUMon 08-07-2023 Magnesium [Mass/Vol] 1.7 mg/dL Low 1.8-2.6 [facility] Comment on above: Performed By: #### Chelsi JOINER CMP, 94687-3 #### [facility] ([id number]) [address] [place] [address] RAPID CARDIACon 08-07-2023 JOHN'S TEST Normal [facility] Comment on above: Performed By: #### Chelsi JOINER, CMP, #### [facility] ([id number]) [address], [address] [place] [address] BASE,DEFICIT 1.1 MMOL/L Normal 0.0-2.0 [facility] Comment on above: Performed By: #### Chelsi JOINER, CMP, #### [facility] ([id number]) [address], [address] [place] [address] Body temperature 98.6 [degF] Normal 37.0 [facility] Comment on above: Performed By: #### Chelsi JOINER CMP, #### [facility] ([id number]) [address], [address] [place] [address] Glucose [Mass/Vol] 108 mg/dL High 65-99 [facility] Comment on above: Performed By: #### Chelsi JOINER CMP, #### [facility] ([id number]) [address] [place] [address] HCO3 (Bld) [Moles/Vol] 23.9 mmol/L Normal 22-26 [facility] Comment on above: Performed By: #### Chelsi JOINER CMP, #### [facility] ([id number]) [address], [address] [place] [address] Hematocrit (Bld) [Volume fraction] 28 % Low 39-49 [facility] Comment on above: Performed By: #### Chelsi JOINER [facility], #### [facility] ([id number]) [address] [place] [address] Hemoglobin (Bld) [Mass/Vol] 9.1 g/dL Low 13.0-17.0 [facility] Comment on above: Performed By: #### Chelsi JOINER CMP, #### [facility] ([id number]) [address], [address] [place] [address] INSP. O2 CONC. 100 % Normal [facility] Comment on above: Performed By: #### Chelsi JOINER CMP, #### [facility] ([id number]) [address], [address] [place] [address] IONIZED CALCIUM 5.0 mg/dL Normal 4.5-5.3 [facility] Comment on above: Performed By: #### Chelsi JOINER CMP, #### [facility] ([id number]) [address], [address] [place] [address] Oxygen (Bld) [Partial pressure] 149 mm[Hg] High 80-100 [facility] Comment on above: Performed By: #### Chelsi JOINER CMP, #### [facility] ([id number]) [address], [address] [place] [address] Oxygen saturation in Blood 100.1 % Normal >90 [facility] Comment on above: Performed By: #### Chelsi JOINER CMP, #### [facility] ([id number]) [address], [address] [place] [address] PCO2 39.6 MMHG Normal 35-45 [facility] Comment on above: Performed By: #### Chelsi JOINER [facility], #### [facility] ([id number]) [address] [place] [address] pH (Bld) 7.389 [pH] Normal 7.350-7.450 [facility] Comment on above: Performed By: #### Chelsi JOINER CMP, #### [facility] ([id number]) [address], [address] [place] [address] Potassium [Moles/Vol] 3.1 mmol/L Low 3.5-5.0 [facility] Comment on above: Performed By: #### Chelsi JOINER CMP, #### [facility] ([id number]) [address] [place] [address] SAMPLE SITE TERRI Normal [facility] Comment on above: Performed By: #### Chelsi JOINER CMP, #### [facility] ([id number]) [address] [place] [address], [address] [place] [address] SAMPLE TYPE Arterial Normal [facility] Comment on above: Performed By: #### C , [facility], 87270-0 #### [facility] ([id number]) [address] [place] [address], [facility] [address] [place] [address] Surgical Pathologyon 024 Surgical Pathology Normal [facility] Comment on above: Result Comment: [facility] [address] [place] [address] Surgical Pathology Consultation Patient Name:DES ALCALAB:1950 (Age: 73)Gender:MTaken:08/07/2023eported:08/10/2023hysician(s):Mauricio Cleveland MD ([phone])Copy To: Rec. #:[id number]: #[id number] Final Pathologic Diagnosis Right hip bone and femoral head; excision: Femoral head with hemorrhages and fragmentation of the bone trabeculae consistent with fracture site changes. Thin bone trabeculae suggestive of osteopenia. Normocellular maturing trilineage hematopoiesis. No granuloma or neoplasm. Report Electronically Signed [facility]/08/10/2023Kofi Alicea MD Interpretation performed at [facility], [address] [place] [address], License number: [id number]. Clinical History Right hip fx. Gross Description [...] espinoza firm bone within the femoral head. 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 /08/07/2023GR Specimen(s) Received Right hip bone and femoral head Fee Codes(s): 1; 28361, 14316 US RETROPERITONEAL COMPLETEo n 08-07-2023 US RETROPERITONEAL [...] Zambrano MD on 08/06/2023 10:28 PM Normal [facility] XR CHEST 1 VWon 08-07-2023 XR CHEST 1 VW XR CHEST 1 VW Portable chest: HISTORY: Hypoxia. Single view of the chest was obtained and compared to prior exam dated 344. Pulmonary vasculature appears somewhat congested. No pneumothorax is seen. No consolidation or effusion. Osseous appear intact. IMPRESSION: Vascular congestion. Finalized by Fareed Phillip MD on 08/07/2023 6:45 PM Normal [facility] XR CHEST 1 VW XR CHEST 1 VW XR CHEST 1 VW History: Short of breath. COPD One view study. Comparison: 08/06/2023 and 08/04/2023 Impression: * No significant interval change.Skinfold projects over portion of the left chest. No pneumothorax. No large effusion Finalized by Janet Perez MD on 08/07/2023 7:07 AM Normal [facility] XR HIP RT 2-3 VIEWS W OR [...] Cordoba MD on 08/07/2023 1:23 PM Normal [facility] XR PELVIS 1 OR 2 VWSon 08-06 XR PELVIS 1 OR 2 VWS XR PELVIS 1 OR 2 VW S XR PELVIS 1 OR 2 VWS HISTORY: Hemiarthroplasty. COMPARISON: 08/06/2023. IMPRESSION: 1. Status post right-sided hemiarthroplasty, no hardware complication. Expected soft tissue gas. Finalized by Vitaly Cordoba MD on 08/07/2023 1:23 PM Normal [facility] COMPLETE BLOOD COUNTon 08-05 Erythrocyte distribution width (RBC) [Ratio] 18.4 % High 11.5-15.0 [facility] Comment on above: Performed By: #### C MARISEL [facility], 51389-0 #### [facility] ([id number]) [address], [address] [place] [address] Hematocrit (Bld) [Volume fraction] 23.9 % Low 39-49 [facility] Comment on above: Performed By: #### Chelsi JOINER [facility], 35861-1 #### [facility] ([id number]) [address], [address] [place] [address] Hemoglobin (Bld) [Mass/Vol] 7.7 g/dL Low 13.0-17.0 [facility] Comment on above: Performed By: #### Chelsi JOINER [facility], 17859-7 #### [facility] ([id number]) [address], [address] [place] [address] MCH (RBC) [Entitic mass] 26.9 pg Low 27-34 [facility] Comment on above: Performed By: #### Chelsi JOINER CMP, #### [facility] ([id number]) [address], [address] [place] [address] MCHC (RBC) [Mass/Vol] 32.4 g/dL Normal 32-36 [facility] Comment on above: Performed By: #### Chelsi JOINER CMP, #### [facility] ([id number]) [address], [address] [place] [address] MCV (RBC) [Entitic vol] 83 fL Normal 80-100 [facility] Comment on above: Performed By: #### Chelsi JOINER CMP, #### [facility] ([id number]) [address], [address] [place] [address] Platelet mean volume (Bld) [Entitic vol] 11.0 fL Normal 7-12 [facility] Comment on above: Performed By: #### Chelsi JOINER CMP, #### [facility] ([id number]) [address] [place] [address] Platelets (Bld) [#/Vol] 198 10*3/uL Normal 150-450 [facility] Comment on above: Performed By: #### Chelsi JOINER CMP, #### [facility] ([id number]) [address] [place] [address] RBC COUNT 2.87 X10E12/L Low 4.10-5.70 [facility] Comment on above: Performed By: #### Chelsi JOINER CMP, #### [facility] ([id number]) [address], [address] [place] [address] WBC (Bld) [#/Vol] 8.2 10*3/uL Normal 4.0-11.0 [facility] Comment on above: Performed By: #### Chelsi JOINER, CMP, 28991-6 #### [facility] ([id number]) [address], [address] [place] [address] COMPREHENSIVE METABOLIC PANE Angel 08-06-2023 Albumin [Mass/Vol] 3.4 g/dL Normal 3.2-5.3 [facility] Comment on above: Performed By: #### Chelsi JOINER, CMP, #### [facility] ([id number]) [address] [place] [address] ALP [Catalytic activity/Vol] 70 U/L Normal 39-130 [facility] Comment on above: Performed By: #### Chelsi JOINER CMP, 36870-2 #### [facility] ([id number]) [address] [place] [address] ALT [Catalytic activity/Vol] 8 U/L Normal 0-40 [facility] Comment on above: Performed By: #### Chelsi JOINER, CMP, 34584-3 #### [facility] ([id number]) [address] [place] [address] Anion gap [Moles/Vol] 11 mmol/L Normal 5-15 [facility] Comment on above: Performed By: #### Chelsi JOINER CMP, #### [facility] ([id number]) [address], [address] [place] [address] AST [Catalytic activity/Vol] 20 U/L Normal 0-41 [facility] Comment on above: Performed By: #### Chelsi BC, CMP, 90792-0 #### [facility] ([id number]) [address] [place] [address] Bilirubin [Mass/Vol] 0.8 mg/dL Normal 0.3-1.2 [facility] Comment on above: Performed By: #### Chelsi JOINER [facility], 86002-0 #### [facility] ([id number]) [address], [address] [place] [address] Calcium [Mass/Vol] 9.3 mg/dL Normal 8.5-10.5 [facility] Comment on above: Performed By: #### Chelsi JOINER [facility], 59132-2 #### [facility] ([id number]) [address] [place] [address] Chloride [Moles/Vol] 106 mmol/L Normal 98-109 [facility] Comment on above: Performed By: #### Chelsi JOINER [facility], #### [facility] ([id number]) [address], [address] [place] [address] CO2 [Moles/Vol] 24 mmol/L Normal 22-32 [facility] Comment on above: Performed By: #### Chelsi JOINER [facility], 70066-9 #### [facility] ([id number]) [address], [address] [place] [address] Creatinine [Mass/Vol] 0.59 mg/dL Low 0.60-1.30 [facility] Comment on above: Result Comment: METH OD TRACEABLE TO IDMS STANDARD Performed By: #### Chelsi JOINER CMP, 71118-3 #### [facility] ([id number]) [address], [address] [place] [address] eGFR (CKD-EPI) NON-RACE DEPENDENT >90 Normal >59 [facility] Comment on above: Result Comment: Reported eGFR is based on the CKD-EPI 2020 equation that does not use a race coefficient. Performed By: #### Chelsi JOINER CMP, #### [facility] ([id number]) [address] [place] [address] Glucose [Mass/Vol] 72 mg/dL Normal 65-99 [facility] Comment on above: Performed By: #### Chelsi JOINER CMP, #### [facility] ([id number]) [address] [place] [address] Potassium [Moles/Vol] 3.6 mmol/L Normal 3.5-5.0 [facility] Comment on above: Performed By: #### Chelsi JOINER, [facility], #### [facility] ([id number]) [address] [place] [address] Protein [Mass/Vol] 6.4 g/dL Normal 6.0-8.0 [facility] Comment on above: Performed By: #### Chelsi JOINER, [facility], #### [facility] ([id number]) [address] [place] [address] Sodium [Moles/Vol] 141 mmol/L Normal 134-146 [facility] Comment on above: Performed By: #### Chelsi JOINER, [facility], #### [facility] ([id number]) [address] [place] [address] Urea nitrogen [Mass/Vol] 20 mg/dL Normal 5-27 [facility] Comment on above: Performed By: #### Chelsi JOINER, [facility], #### [facility] ([id number]) [address] [place] [address] CRP [Mass/Vol]on 08-06-2023 C REACTIVE PROTEIN 24.9 mg/dL High 0.000-0.744 [facility] Comment on above: Performed By: #### 8 2477-1, 1988-5, 27486-9 #### [facility] ([id number]) [address] [place] [address] ESR Photometric method (Bld) [Velocity]on 08-06-2023 ESR, ERYTHROCYTE SEDIMENTATION RATE 71 mm/h High 0-20 [facility] Comment on above: Performed By: #### 8 2477-1, 1988-5, 99909-2 #### [facility] ([id number]) [address], [address] [place] [address] FL SWALLOW MOTILITY FUNCTION on 08-06-2023 FL [...] Curtis MD on 08/06/2023 1:24 PM Normal [facility] HGB AND HCTon 08-06-2023 Hematocrit (Bld) [Volume fraction] 25.0 % Low 39-49 [facility] Comment on above: Performed By: #### C CEDRIC JOINER, 09502-8 #### [facility] ([id number]) [address], [address] [place] [address] Hemoglobin (Bld) [Mass/Vol] 8.2 g/dL Low 13.0-17.0 [facility] Comment on above: Performed By: #### C CEDRIC JOINER, 26851-1 #### [facility] ([id number]) [address], [address] [place] [address] MAGNESIUMon 08-06-2023 Magnesium [Mass/Vol] 2.1 mg/dL Normal 1.8-2.6 [facility] Comment on above: Performed By: #### C CEDRIC JOINER, 36321-2 #### [facility] ([id number]) [address], [address] [place] [address] Magnesium [Mass/Vol] 1.6 mg/dL Low 1.8-2.6 [facility] Comment on above: Performed By: #### C , [facility], 88992-8 #### [facility] ([id number]) [address] [place] [address] Procalcitonin IA [Mass/Vol]o n 08-06-2023 PROCALCITONIN 0.21 ng/mL High <0.05 [facility] Comment on above: Result Comment: NOTE <0.50 ng/mL - Low risk of severe sepsis and/or septic shock. <2.00 ng/mL - Recommend retesting within 6-24 hours. >2.00 ng/mL - High risk of sepsis and/or septic shock. Performed By: #### 8 2477-1, 1988-5, 10846-0 #### [facility] ([id number]) [address] [place] [address] RESP PATHOGENS/DIIG-[id number]-[id number] 08-06-2023 Respiratory pathogens DNA and RNA panel [...] patient with possible respiratory tract infection. Normal [facility] Comment on above: Performed By: #### 8 2159-5 #### [facility] ([id number]) [address] [place] [address], [address] [place] [address] US EXT NON-VASC RT LIMITEDon 08-06-2023 US EXT NON-VASC RT LIMITED US EXT NON-VASC RT LIMITED EXAM: US EXT NON-VASC RT LIMITED CLINICAL INDICATIONS: possible fluid collection right gluteal subcutaneous soft tissue FINDINGS/IMPRESSION: Superficial ultrasound of the right gluteal soft tissues demonstrates mild edema without focal hematoma or collection. Finalized by Deshawn Walker on 08/06/2023 4:28 PM Normal [facility] XR CHEST 1 VWon 08-06-2023 XR CHEST [...] Curtis MD on 08/06/2023 1:02 PM Normal [facility] XR HIP RT 2-3 VIEWS W OR [...] Phillip MD on 08/06/2023 1:25 PM Normal [facility] XR PELVIS MIN 3 VWSon 2023 [...] Phillip MD on 08/06/2023 1:26 PM Normal [facility] COMPLETE BLOOD COUNTon 08-04 Erythrocyte distribution width (RBC) [Ratio] 18.3 % High 11.5-15.[address] [facility] Comment on above: Performed By: #### C BCA, BMP, 3040-3, 41051-1, LIVR, 55739-3, PINR, 83968-1, THYR #### [facility] ([id number]) [address] [place] [address] Hematocrit (Bld) [Volume fraction] 24.4 % Low 39-[address] [facility] Comment on above: Performed By: #### C BCA, BMP, 3040-3, 14171-5, LIVR, 38186-0, PINR, 11369-7, THYR #### [facility] ([id number]) [address] [place] [address] Hemoglobin (Bld) [Mass/Vol] 8.0 g/dL Low 13.0-17.[address] [facility] Comment on above: Performed By: #### C BCA, BMP, 3040-3, 92719-5, LIVR, 17104-0, PINR, 31334-5, THYR #### [facility] ([id number]) [address] [place] [address] MCH (RBC) [Entitic mass] 27.0 pg Normal 27-[address] [facility] Comment on above: Performed By: #### C BCA, BMP, 3040-3, 54089-7, LIVR, 26685-8, PINR, 03185-7, THYR #### [facility] ([id number]) [address] [place] [address] MCHC (RBC) [Mass/Vol] 32.9 g/dL Normal 32-36 [place] Comment on above: Performed By: #### C BCA, BMP, 3040-3, 87505-1, LIVR, 69418-4, PINR, 14775-1, THYR #### [facility] ([id number]) [address] [place] [address] MCV (RBC) [Entitic vol] 82 fL Normal 80-100 [facility] Comment on above: Performed By: #### C BCA, BMP, 3040-3, 17589-7, LIVR, 92138-1, PINR, 77677-3, THYR #### [facility] ([id number]) [address] [place] [address] Platelet mean volume (Bld) [Entitic vol] 11.0 fL Normal 7-[address] [facility] Comment on above: Performed By: #### C BCA, BMP, 3040-3, 08733-0, LIVR, 43318-0, PINR, 82782-2, THYR #### [facility] ([id number]) [address] [place] [address] Platelets (Bld) [#/Vol] 193 10*3/uL Normal 150-[address] [facility] Comment on above: Performed By: #### C BCA, BMP, 3040-3, 12160-6, LIVR, 70270-8, PINR, 96570-9, THYR #### [facility] ([id number]) [address] [place] [address] [id number] RBC COUNT 2.97 X10E12/L Low 4.10-5.[address] [facility] Comment on above: Performed By: #### C BCA, BMP, 3040-3, 45582-0, LIVR, 76842-9, PINR, 96040-8, THYR #### [facility] ([id number]) [address] [place] [address] [id number] WBC (Bld) [#/Vol] 10.4 10*3/uL Normal 4.0-11.0 [facility] Comment on above: Performed By: #### C BCA, BMP, 3040-3, 27111-9, LIVR, 01674-5, PINR, 01124-4, THYR #### [facility] ([id number]) [address] [place] [address] [id number] COMPREHENSIVE METABOLIC PANE Angel 08-05-2023 Albumin [Mass/Vol] 3.7 g/dL Normal 3.2-5.3 [facility] Comment on above: Performed By: #### C BCA, BMP, 3040-3, 32240-8, LIVR, 56755-0, PINR, 89440-8, THYR #### [facility] ([id number]) [address] [place] [address] 44948 ALP [Catalytic activity/Vol] 72 U/L Normal 39-[address] [facility] Comment on above: Performed By: #### C BCA, BMP, 3040-3, 22738-3, LIVR, 05593-8, PINR, 59319-1, THYR #### [facility] ([id number]) [address] [place] [address] 52368 ALT [Catalytic activity/Vol] 16 U/L Normal 0-[address] [facility] Comment on above: Performed By: #### C BCA, BMP, 3040-3, 99647-9, LIVR, 23481-0, PINR, 60752-7, THYR #### [facility] ([id number]) [address] [place] [address] 70398 Anion gap [Moles/Vol] 11 mmol/L Normal 5-15 [place] Comment on above: Performed By: #### C BCA, BMP, 3040-3, 35120-2, LIVR, 99474-3, PINR, 31345-6, THYR #### [facility] ([id number]) [address] [place] [address] 04922 AST [Catalytic activity/Vol] 25 U/L Normal 0-[address] [facility] Comment on above: Performed By: #### C BCA, BMP, 3040-3, 47322-7, LIVR, 81275-5, PINR, 70887-3, THYR #### [facility] ([id number]) [address] [place] [address] 24975 Bilirubin [Mass/Vol] 0.9 mg/dL Normal 0.3-1.2 [facility] Comment on above: Performed By: #### C BCA, BMP, 3040-3, 40450-2, LIVR, 78300-1, PINR, 82666-7, THYR #### [facility] ([id number]) [address] [place] [address] 06317 Calcium [Mass/Vol] 9.6 mg/dL Normal 8.5-10.5 [facility] Comment on above: Performed By: #### C BCA, BMP, 3040-3, 80731-9, LIVR, 51550-3, PINR, 68896-7, THYR #### [facility] ([id number]) [address] [place] [address] 46365 Chloride [Moles/Vol] 99 mmol/L Normal 98-109 [facility] Comment on above: Performed By: #### C BCA, BMP, 3040-3, 42039-2, LIVR, 93342-1, PINR, 81529-7, THYR #### [facility] ([id number]) [address] [place] [address] 36338 CO2 [Moles/Vol] 25 mmol/L Normal 22-[address] [facility] Comment on above: Performed By: #### C BCA, BMP, 3040-3, 13429-0, LIVR, 44700-1, PINR, 55303-0, THYR #### [facility] ([id number]) [address] [place] [address] 32460 Creatinine [Mass/Vol] 0.89 mg/dL Normal 0.70-1.20 [place] Comment on above: Result Comment: METH OD TRACEABLE TO IDMS STANDARD Performed By: #### C BCA, BMP, 3040-3, 03015-8, LIVR, 44104-0, PINR, 35902-1, THYR #### [facility] ([id number]) [address] [place] [address] 17840 eGFR (CKD-EPI) NON-RACE DEPENDENT >90 Normal >[address] [facility] Comment on above: Result Comment: Reported eGFR is based on the CKD-EPI 2020 equation that does not use a race coefficient. Performed By: #### C BCA, BMP, 3040-3, 78498-4, LIVR, 17105-4, PINR, 95139-5, THYR #### [facility] ([id number]) [address] [place] [address] 32494 Glucose [Mass/Vol] 110 mg/dL High 65-99 [facility] Comment on above: Performed By: #### C BCA, BMP, 3040-3, 44847-0, LIVR, 66534-3, PINR, 36134-3, THYR #### [facility] ([id number]) [address] [place] [address] 11070 Potassium [Moles/Vol] 3.7 mmol/L Normal 3.5-5.0 [place] Comment on above: Performed By: #### C BCA, BMP, 3040-3, 06230-7, LIVR, 84963-5, PINR, 86183-6, THYR #### [facility] ([id number]) [address] [place] [address] 19922 Protein [Mass/Vol] 7.0 g/dL Normal 6.0-8.0 [facility] Comment on above: Performed By: #### C BCA, BMP, 3040-3, 09322-8, LIVR, 69984-9, PINR, 51701-1, THYR #### [facility] ([id number]) [address] [place] [address] Sodium [Moles/Vol] 135 mmol/L Normal 134-146 [facility] Comment on above: Performed By: #### C BCA, BMP, 3040-3, 77085-4, LIVR, 79849-8, PINR, 27012-3, THYR #### [facility] ([id number]) [address] [place] [address] 91733 Urea nitrogen [Mass/Vol] 23 mg/dL Normal 5-[address] [facility] Comment on above: Performed By: #### C BCA, BMP, 3040-3, 40970-2, LIVR, 91289-6, PINR, 27563-6, THYR #### [facility] ([id number]) [address] [place] [address] 85088 CRP [Mass/Vol]on 08-05-2023 C REACTIVE PROTEIN 21.1 mg/dL High 0.000-0.744 [facility] Comment on above: Performed By: #### C BCA, BMP, 3040-3, 76124-4, LIVR, 57093-3, PINR, 01018-4, THYR #### [facility] ([id number]) [address] [place] [address], [place] [address] ESR Photometric method (Bld) [Velocity]on 08-05-2023 ESR, ERYTHROCYTE SEDIMENTATION RATE 47 mm/h High 0-[address] [facility] Comment on above: Performed By: #### C BCA, BMP, 3040-3, 57238-2, LIVR, 18670-5, PINR, 28923-7, THYR #### [facility] ([id number]) [address] [place] [address] 58972 FERRITINon 08-05-2023 Ferritin [Mass/Vol] 39 ng/mL Normal 24-336 [facility] Comment on above: Performed By: #### C BCA, BMP, 3040-3, 50934-5, LIVR, 13002-4, PINR, 17244-8, THYR #### [facility] ([id number]) [address] [place] [address] 18558 Folate [Mass/Vol]on 08-05-19 24 FOLIC ACID >25.0 Normal >5.[address] [facility] Comment on above: Result Comment: NEW REFERENCE RANGE Performed By: #### C BCA, BMP, 3040-3, 17651-2, LIVR, 64086-4, PINR, 51104-9, THYR #### [facility] ([id number]) [address] [place] [address] 64908 IRON PROFILEon 08-05-2023 Iron [Mass/Vol] 14 ug/dL Low 50-[address] [facility] Comment on above: Performed By: #### C BCA, BMP, 3040-3, 06961-5, LIVR, 00965-2, PINR, 43712-3, THYR #### [facility] ([id number]) [address] [place] [address] 61502 IRON BINDING 354 ug/dL Normal 250-[address] [facility] Comment on above: Performed By: #### C BCA, BMP, 3040-3, 37037-3, LIVR, 78942-9, PINR, 52224-6, THYR #### [facility] ([id number]) [address] [place] [address] 61427 IRON SATURATION 4 % SATURATION Low 20-50 [facility] Comment on above: Performed By: #### C BCA, BMP, 3040-3, 65245-3, LIVR, 56106-3, PINR, 22484-5, THYR #### [facility] ([id number]) [address] [place] [address] 92393 MAGNESIUMon 08-05-2023 Magnesium [Mass/Vol] 1.6 mg/dL Low 1.8-2.6 [facility] Comment on above: Performed By: #### C BCA, BMP, 3040-3, 73970-2, LIVR, 03915-8, PINR, 89183-4, THYR #### [facility] ([id number]) [address] [place] [address] 60237 Osmolality [Osmolality]on OSMOLALITY 285 mOsm/kg H2 Normal 280-[address] [facility] Comment on above: Performed By: #### C BCA, BMP, 3040-3, 20559-8, LIVR, 41620-2, PINR, 00941-9, THYR #### [facility] ([id number]) [address] [place] [address] 68581 Parathyrin.intact [Mass/Vol] on 08-05-2023 PTH INTACT 45 pg/mL Normal 12-[address] [facility] Comment on above: Performed By: #### C BCA, BMP, 3040-3, 22415-1, LIVR, 93144-2, PINR, 14429-1, THYR #### [facility] ([id number]) [address] [place] [address] 08090 Prealbumin IA [Mass/Vol]on 0 08-05-2023 Prealbumin [Mass/Vol] 16 mg/dL Low 18-45 [place] Comment on above: Performed By: #### C BCA, BMP, 3040-3, 66187-4, LIVR, 77776-3, PINR, 34297-8, THYR #### [facility] ([id number]) [address] [place] [address] 65851 Reticulocytes/100 RBC (Bld)o n 08-05-2023 RETICULOCYTE COUNT 1.8 % Normal 0.4-2.2 [facility] Comment on above: Performed By: #### C BCA, BMP, 3040-3, 16002-8, LIVR, 22547-6, PINR, 29566-0, THYR #### [facility] ([id number]) [address] [place] [address] 67762 VITAMIN B12on 08-05-2023 Cobalamin (Vitamin B12) [Mass/Vol] 232 pg/mL Normal 180-[address] [facility] Comment on above: Performed By: #### C BCA, BMP, 3040-3, 89355-6, LIVR, 70741-1, PINR, 58333-8, THYR #### [facility] ([id number]) [address] [place] [address] Vitamin D+Metabolites [Mass/ Vol]on 08-05-2023 VITAMIN D 25 HYD TOT 41.2 ng/mL Normal 30-100 [facility] Comment on above: Result Comment: Vitamin D status 25 [place] Vitamin D Deficiency <20 ng/mL Insufficiency 20-29 ng/mL Sufficiency 30-100 ng/mL Toxicity >100 ng/mL NOTE: A pediatric reference range has not been established by the fire chief of this kit. The [employer] recommends a Vitamin D level of = or >20ng/mL in infants and children. Performed By: #### C BCA, BMP, 3040-3, 46021-9, LIVR, 02158-6, PINR, 48391-9, THYR #### [facility] ([id number]) [address] [place] [address] XR FEMUR RT 2+ VIEWSon 08-04 XR [...] Curtis MD on 08/05/2023 11:11 AM Normal [facility] XR PELVIS MIN 3 VWSon 2023 [...] Curtis MD on 08/05/2023 11:11 AM Normal [facility] BASIC METABOLIC PANLon 08-03 Anion gap [Moles/Vol] 5 mmol/L Normal 5-15 [place] Comment on above: Performed By: #### C BCA, BMP, 3040-3, 31015-3, LIVR, 11452-8, PINR, 83645-2, THYR #### [facility] ([id number]) [address] [place] [address] 99325 Calcium [Mass/Vol] 9.0 mg/dL Normal 8.5-10.5 [facility] Comment on above: Performed By: #### C BCA, BMP, 3040-3, 56633-9, LIVR, 87519-0, PINR, 25536-3, THYR #### [facility] ([id number]) [address] [place] [address] 86074 Chloride [Moles/Vol] 98 mmol/L Normal 98-109 [facility] Comment on above: Performed By: #### C BCA, BMP, 3040-3, 66988-9, LIVR, 82907-0, PINR, 75151-3, THYR #### [facility] ([id number]) [address] [place] [address] 20754 CO2 [Moles/Vol] 27 mmol/L Normal 22-[address] [facility] Comment on above: Performed By: #### C BCA, BMP, 3040-3, 94158-6, LIVR, 92758-3, PINR, 90836-9, THYR #### [facility] ([id number]) [address] [place] [address] 19891 Creatinine [Mass/Vol] 0.70 mg/dL Normal 0.70-1.20 [place] Comment on above: Result Comment: METH OD TRACEABLE TO IDMS STANDARD Performed By: #### C BCA, BMP, 3040-3, 91496-7, LIVR, 71482-4, PINR, 22675-3, THYR #### [facility] ([id number]) [address] [place] [address] 34771 eGFR (CKD-EPI) NON-RACE DEPENDENT >90 Normal >[address] [facility] Comment on above: Result Comment: Reported eGFR is based on the CKD-EPI 2020 equation that does not use a race coefficient. Performed By: #### C BCA, BMP, 3040-3, 65351-9, LIVR, 18362-3, PINR, 12209-4, THYR #### [facility] ([id number]) [address] [place] [address] 67501 Glucose [Mass/Vol] 117 mg/dL High 65-99 [facility] Comment on above: Performed By: #### C BCA, BMP, 3040-3, 70027-2, LIVR, 29478-9, PINR, 88704-2, THYR #### [facility] ([id number]) [address] [place] [address] 40154 Potassium [Moles/Vol] 3.3 mmol/L Low 3.5-5.0 [place] Comment on above: Performed By: #### C BCA, BMP, 3040-3, 65655-5, LIVR, 43368-7, PINR, 34166-5, THYR #### [facility] ([id number]) [address] [place] [address] 13293 Sodium [Moles/Vol] 130 mmol/L Low 134-146 [facility] Comment on above: Performed By: #### C BCA, BMP, 3040-3, 08656-5, LIVR, 83952-1, PINR, 41134-9, THYR #### [facility] ([id number]) [address] [place] [address] 51329 Urea nitrogen [Mass/Vol] 23 mg/dL Normal 5-[address] [facility] Comment on above: Performed By: #### C BCA, BMP, 3040-3, 23916-4, LIVR, 78911-4, PINR, 34610-9, THYR #### [facility] ([id number]) [address] [place] [address] 63980 BLOOD CULTUREon 08-04-2023 Bacteria identified Aer cx Nom (Bld) CULTURE RESULTS NO GROWTH 5 DAYS Normal [facility] Bacteria identified Aer cx Nom (Bld) CULTURE RESULTS NO GROWTH 5 DAYS Normal [facility] CBC AND AUTO DIFFon 08-04-19 24 ABSOLUTE BASOPHIL 0.0 X10E9/L Normal 0.0-0.2 [facility] Comment on above: Performed By: #### C BCA, BMP, 3040-3, 37616-1, LIVR, 37112-4, PINR, 14290-3, THYR #### [facility] ([id number]) [address] [place] [address] 13708 ABSOLUTE NEUTROPHIL 8.4 X10E9/L High 1.5-6.6 [facility] Comment on above: Performed By: #### C BCA, BMP, 3040-3, 20710-5, LIVR, 09268-9, PINR, 18485-2, THYR #### [facility] ([id number]) [address] [place] [address] 31093 Basophils/100 WBC (Bld) 0.4 % Normal [facility] Comment on above: Performed By: #### C BCA, BMP, 3040-3, 74510-3, LIVR, 35963-1, PINR, 71823-9, THYR #### [facility] ([id number]) [address] [place] [address] 79255 Eosinophils (Bld) [#/Vol] 0.1 10*3/uL Normal 0.0-0.[address] [facility] Comment on above: Performed By: #### C BCA, BMP, 3040-3, 27276-6, LIVR, 51645-5, PINR, 81676-4, THYR #### [facility] ([id number]) [address] [place] [address] 29632 Eosinophils/100 WBC (Bld) 0.6 % Normal [facility] Comment on above: Performed By: #### C BCA, BMP, 3040-3, 21179-3, LIVR, 48165-7, PINR, 29022-4, THYR #### [facility] ([id number]) [address] [place] [address] 65116 Erythrocyte distribution width (RBC) [Ratio] 18.0 % High 11.5-15.[address] [facility] Comment on above: Performed By: #### C BCA, BMP, 3040-3, 60316-0, LIVR, 07302-7, PINR, 86667-9, THYR #### [facility] ([id number]) [address] [place] [address] 65965 Hematocrit (Bld) [Volume fraction] 24.7 % Low 39-[address] [facility] Comment on above: Performed By: #### C BCA, BMP, 3040-3, 57144-2, LIVR, 37147-7, PINR, 08529-6, THYR #### [facility] ([id number]) [address] [place] [address] 72222 Hemoglobin (Bld) [Mass/Vol] 8.4 g/dL Low 13.0-17.[address] [facility] Comment on above: Performed By: #### C BCA, BMP, 3040-3, 69740-6, LIVR, 44382-4, PINR, 29764-6, THYR #### [facility] ([id number]) [address] [place] [address] 77299 Lymphocytes (Bld) [#/Vol] 0.5 10*3/uL Low 1.0-3.[address] [facility] Comment on above: Performed By: #### C BCA, BMP, 3040-3, 69536-8, LIVR, 90351-0, PINR, 03364-3, THYR #### [facility] ([id number]) [address] [place] [address] 05131 Lymphocytes/100 WBC (Bld) 5.3 % Normal [facility] Comment on above: Performed By: #### C BCA, BMP, 3040-3, 98304-0, LIVR, 09332-3, PINR, 37929-0, THYR #### [facility] ([id number]) [address] [place] [address] 84314 MCH (RBC) [Entitic mass] 27.6 pg Normal 27-[address] [facility] Comment on above: Performed By: #### C BCA, BMP, 3040-3, 34328-5, LIVR, 74652-1, PINR, 69694-8, THYR #### [facility] ([id number]) [address] [place] [address] 05866 MCHC (RBC) [Mass/Vol] 34.1 g/dL Normal 32-36 [place] Comment on above: Performed By: #### C BCA, BMP, 3040-3, 72845-6, LIVR, 68990-5, PINR, 45494-0, THYR #### [facility] ([id number]) [address] [place] [address] 27446 MCV (RBC) [Entitic vol] 81 fL Normal 80-100 [facility] Comment on above: Performed By: #### C BCA, BMP, 3040-3, 65741-2, LIVR, 62299-4, PINR, 27991-9, THYR #### [facility] ([id number]) [address] [place] [address] 28993 Monocytes (Bld) [#/Vol] 1.0 10*3/uL High 0-0.[address] [facility] Comment on above: Performed By: #### C BCA, BMP, 3040-3, 08897-9, LIVR, 06327-7, PINR, 11292-4, THYR #### [facility] ([id number]) [address] [place] [address] 62769 Monocytes/100 WBC (Bld) 10.3 % Normal [facility] Comment on above: Performed By: #### C BCA, BMP, 3040-3, 30505-3, LIVR, 57351-3, PINR, 15437-1, THYR #### [facility] ([id number]) [address] [place] [address] 18768 Neutrophils/100 WBC (Bld) 83.4 % Normal [facility] Comment on above: Performed By: #### C BCA, BMP, 3040-3, 39834-2, LIVR, 13634-0, PINR, 99621-1, THYR #### [facility] ([id number]) [address] [place] [address] [place] [address] Platelet mean volume (Bld) [Entitic vol] 10.4 fL Normal 7-[address] [facility] Comment on above: Performed By: #### C BCA, BMP, 3040-3, 12272-8, LIVR, 39488-2, PINR, 30438-8, THYR #### [facility] ([id number]) [address] [place] [address] 99326 Platelets (Bld) [#/Vol] 199 10*3/uL Normal 150-[address] [facility] Comment on above: Performed By: #### C BCA, BMP, 3040-3, 00669-3, LIVR, 52309-5, PINR, 26512-2, THYR #### [facility] ([id number]) [address] [place] [address] 62660 RBC COUNT 3.05 X10E12/L Low 4.10-5.[address] [facility] Comment on above: Performed By: #### C BCA, BMP, 3040-3, 43051-9, LIVR, 10962-6, PINR, 00360-8, THYR #### [facility] ([id number]) [address] [place] [address] 42425 WBC (Bld) [#/Vol] 10.0 10*3/uL Normal 4.0-11.0 [facility] Comment on above: Performed By: #### C BCA, BMP, 3040-3, 31074-2, LIVR, 49632-8, PINR, 80067-1, THYR #### [facility] ([id number]) [address] [place] [address] ABDOMEN AND PELVIS W CONT on [...] Curtis MD on 08/04/2023 9:13 PM Normal [facility] CT BRAIN WO CONTon 4 CT [...] Curtis MD on 08/04/2023 8:26 PM Normal [facility] LIPASEon 08-04-2023 Lipase [Catalytic activity/Vol] 29 U/L Normal 17-[address] [facility] Comment on above: Performed By: #### C BCA, BMP, 3040-3, 22660-7, LIVR, 00146-7, PINR, 72426-3, THYR #### [facility] ([id number]) [address] [place] [address], [place] [address] LIVER PANELon 08-04-2023 Albumin [Mass/Vol] 3.8 g/dL Normal 3.2-5.3 [facility] Comment on above: Performed By: #### C BCA, BMP, 3040-3, 31442-0, LIVR, 02222-9, PINR, 13462-2, THYR #### [facility] ([id number]) [address] [place] [address] 03008 ALP [Catalytic activity/Vol] 78 U/L Normal 39-[address] [facility] Comment on above: Performed By: #### C BCA, BMP, 3040-3, 82942-4, LIVR, 01139-4, PINR, 28395-7, THYR #### [facility] ([id number]) [address] [place] [address] 79396 ALT [Catalytic activity/Vol] 16 U/L Normal 0-[address] [facility] Comment on above: Performed By: #### C BCA, BMP, 3040-3, 84987-3, LIVR, 33750-3, PINR, 69628-7, THYR #### [facility] ([id number]) [address] [place] [address] 48153 AST [Catalytic activity/Vol] 23 U/L Normal 0-[address] [facility] Comment on above: Performed By: #### C BCA, BMP, 3040-3, 27404-5, LIVR, 22416-3, PINR, 05578-8, THYR #### [facility] ([id number]) [address] [place] [address] 62799 Bilirubin [Mass/Vol] 0.9 mg/dL Normal 0.3-1.2 [facility] Comment on above: Performed By: #### C BCA, BMP, 3040-3, 90710-5, LIVR, 38175-4, PINR, 39699-6, THYR #### [facility] ([id number]) [address] [place] [address] 43918 Bilirubin.direct [Mass/Vol] 0.2 mg/dL Normal 0.0-0.[address] [facility] Comment on above: Performed By: #### C BCA, BMP, 3040-3, 33141-6, LIVR, 16901-6, PINR, 74642-3, THYR #### [facility] ([id number]) [address] [place] [address] 58553 Protein [Mass/Vol] 7.2 g/dL Normal 6.0-8.0 [facility] Comment on above: Performed By: #### C BCA, BMP, 3040-3, 81724-6, LIVR, 77256-5, PINR, 51869-3, THYR #### [facility] ([id number]) [address] [place] [address] 98308 Lactate (P veronica) [Moles/Vol]o n 08-04-2023 LACTATE W/REFLEX 0.9 mmol/L Normal 0.4-2.0 [facility] Comment on above: Result Comment: Result did not trigger repeat Lactate, re-order if needed. Performed By: #### C BCA, BMP, 3040-3, 46949-5, LIVR, 59310-8, PINR, 60024-8, THYR #### [facility] ([id number]) [address] [place] [address] 55995 Osmolality (U) [Osmolality]o n 08-04-2023 URINE OSMOLALITY 719 mOsm/kg H2 Normal 300-1300 [facility] Comment on above: Performed By: #### C BCA, BMP, 3040-3, 91247-7, LIVR, 11298-2, PINR, 08773-3, THYR #### [facility] ([id number]) [address] [place] [address] 38885 PROTIME AND INRon 08-04-2023 INR Coag (PPP) [Relative time] 1.5 {INR} High 0.8-1.[address] [facility] Comment on above: Performed By: #### C BCA, BMP, 3040-3, 68810-4, LIVR, 29173-7, PINR, 18644-6, THYR #### [facility] ([id number]) [address] [facility], [place] [address] PT Coag (PPP) [Time] 16.7 s High 9.8-13.2 [facility] Comment on above: Result Comment: NEW REFERENCE RANGE Performed By: #### C BCA, BMP, 3040-3, 42762-6, LIVR, 15309-7, PINR, 02309-0, THYR #### [facility] ([id number]) [address] [facility], [place] [address] SARS/FLU A+B/RSV by NAAT/Mol ecularon 08-04-2023 SARS/FLU [...] operators who are performing tests using either [employer] or [employer] systems and is limited to laboratories [...] specimen repeat. Fact Sheet for Healthcare Providers: https://www.[facility].gov/m edia/727714/download Fact Sheet for Patients: https://www.[facility].gov/m edia/336030/download Normal [facility] Comment on above: Performed By: #### C BCA, BMP, 3040-3, 05021-6, LIVR, 38516-2, PINR, 62940-0, THYR #### [facility] ([id number]) [address] [place] [address] 57774 THYROID PROFILEon 08-04-2023 Free T4 [Mass/Vol] 1.08 ng/dL Normal 0.61-1.60 [facility] Comment on above: Performed By: #### C BCA, BMP, 3040-3, 54259-1, LIVR, 32015-0, PINR, 36189-0, THYR #### [facility] ([id number]) [address] [place] [address] 73025 TSH 0.64 uIU/mL Normal 0.49-4.[address] [facility] Comment on above: Performed By: #### C BCA, BMP, 3040-3, 20409-7, LIVR, 44001-3, PINR, 06397-6, THYR #### [facility] ([id number]) [address] [place] [address] 97010 TROPONIN Ion 08-04-2023 Troponin I.cardiac [Mass/Vol] 0.02 ng/mL Normal 0.00-0.[address] [facility] Comment on above: Performed By: #### C BCA, BMP, 3040-3, 82097-1, LIVR, 63768-8, PINR, 00973-1, THYR #### [facility] ([id number]) [address] [place] [address] 45922 URINALYSISon 08-04-2023 Bilirubin Ql (U) Negative Normal NEG [facility] Comment on above: Performed By: #### C BCA, BMP, 3040-3, 37390-4, LIVR, 99249-8, PINR, 50808-8, THYR #### [facility] ([id number]) [address] [place] [address] 46830 BLOOD/HGB Negative Normal NEG [facility] Comment on above: Performed By: #### C BCA, BMP, 3040-3, 78663-8, LIVR, 83171-4, PINR, 96573-6, THYR #### [facility] ([id number]) [address] [place] [address] 00019 Color (U) YELLOW Normal YELLOW [facility] Comment on above: Performed By: #### C BCA, BMP, 3040-3, 87345-6, LIVR, 12677-7, PINR, 46311-0, THYR #### [facility] ([id number]) [address] [place] [address] 92217 Glucose Ql (U) Negative Normal NEG [facility] Comment on above: Performed By: #### C BCA, BMP, 3040-3, 65887-4, LIVR, 71607-6, PINR, 00750-8, THYR #### [facility] ([id number]) [address] [place] [address] 49769 Hyaline casts LM Ql (Urine sed) 0 to 2 Normal 0-[address] [facility] Comment on above: Performed By: #### C BCA, BMP, 3040-3, 02165-3, LIVR, 91883-2, PINR, 51870-4, THYR #### [facility] ([id number]) [address] [place] [address] 56601 Ketones Ql (U) Trace Abnormal NEG [facility] Comment on above: Performed By: #### C BCA, BMP, 3040-3, 46578-2, LIVR, 15039-7, PINR, 70075-7, THYR #### [facility] ([id number]) [address] [place] [address] 76544 Leukocyte esterase Test strip Ql (U) Negative Normal NEG [facility] Comment on above: Performed By: #### C BCA, BMP, 3040-3, 01831-8, LIVR, 42315-1, PINR, 24104-5, THYR #### [facility] ([id number]) [address] [place] [address] 35227 Nitrite Ql (U) Negative Normal NEG [facility] Comment on above: Performed By: #### C BCA, BMP, 3040-3, 76257-1, LIVR, 29206-6, PINR, 71474-1, THYR #### [facility] ([id number]) [address] [place] [address] 95561 pH (U) 6.0 [pH] Normal 5.0-8.[address] [facility] Comment on above: Performed By: #### C BCA, BMP, 3040-3, 74303-9, LIVR, 59080-7, PINR, 94612-3, THYR #### [facility] ([id number]) [address] [place] [address] 63335 Protein Ql (U) Trace Abnormal NEG [facility] Comment on above: Performed By: #### C BCA, BMP, 3040-3, 91516-1, LIVR, 50084-4, PINR, 99092-3, THYR #### [facility] ([id number]) [address] [place] [address] 02378 R.B.CELLS 0 /hpf Normal 0-[address] [facility] Comment on above: Performed By: #### C BCA, BMP, 3040-3, 49990-1, LIVR, 34212-6, PINR, 26136-7, THYR #### [facility] ([id number]) [address] [place] [address] 93921 Specific gravity (U) [Rel density] 1.010 Normal 1.003-1.[address] [facility] Comment on above: Performed By: #### C BCA, BMP, 3040-3, 71832-9, LIVR, 69484-6, PINR, 64062-8, THYR #### [facility] ([id number]) [address] [place] [address] 13748 SQUAMOUS EPITHELIUM 0 to 2 Normal 0-5 [facility] Comment on above: Performed By: #### C BCA, BMP, 3040-3, 36724-0, LIVR, 79373-1, PINR, 69554-7, THYR #### [facility] ([id number]) [address] [place] [address] 80548 TRANSITIONAL EPITH 0 to [address] [facility] Comment on above: Performed By: #### C BCA, BMP, 3040-3, 32125-2, LIVR, 13013-2, PINR, 67814-5, THYR #### [facility] ([id number]) [address] [place] [address] 78999 TURBIDITY CLEAR Normal CLEAR [facility] Comment on above: Performed By: #### C BCA, BMP, 3040-3, 49925-1, LIVR, 15793-5, PINR, 82979-4, THYR #### [facility] ([id number]) [address] [place] [address] 80056 Urobilinogen Qn (U) 0.2 {Cayden'U}/dL Normal <1.[address] [facility] Comment on above: Performed By: #### C BCA, BMP, 3040-3, 69289-8, LIVR, 71728-9, PINR, 85795-0, THYR #### [facility] ([id number]) [address] [place] [address] 22533 W.B.CELLS 0 to 2 Normal 0-[address] [facility] Comment on above: Performed By: #### C BCA, BMP, 3040-3, 95096-5, LIVR, 87318-7, PINR, 36912-0, THYR #### [facility] ([id number]) [address] [place] [address] 62876 URINE CULTUREon 08-04-2023 Bacteria identified Cx Nom (U) CULTURE RESULTS NO GROWTH AT <1000 CFU/mL Normal [facility] Comment on above: Performed By: #### C BCA, BMP, 3040-3, 98236-1, LIVR, 78376-7, PINR, 96704-7, THYR #### [facility] ([id number]) [address] [place] [address] 90962 URINE SODIUM,RANDOMon 2023 Sodium (U) [Moles/Vol] 24 mmol/L Normal [facility] Comment on above: Performed By: #### C BCA, BMP, 3040-3, 55247-2, LIVR, 02529-1, PINR, 03177-7, THYR #### [facility] ([id number]) [address] [place] [address] 49503 VENOUS BLOOD GASon 4 JOHN'S TEST Normal [facility] Comment on above: Performed By: #### V BG #### [facility] ([id number]) [address] [place] [address] 63552 Base excess Calc (Bld) [Moles/Vol] 4.0 mmol/L High 0.0-2.[address] [facility] Comment on above: Performed By: #### V BG #### [facility] ([id number]) [address] [place] [address] 76719 HCO3 (Bld) [Moles/Vol] 25.2 mmol/L High 20.0-24.0 [facility] Comment on above: Performed By: #### V BG #### [facility] ([id number]) [address] [place] [address] 61263 Oxygen saturation in Blood 100.0 % Normal >80.[address] [facility] Comment on above: Performed By: #### V BG #### [facility] ([id number]) [address] [place] [address] 17352 OXYGEN SOURCE [place] [facility] Comment on above: Performed By: #### V BG #### [facility] ([id number]) [address] [place] [address] 31453 PCO2 FABIO. FOR TEMP 27.0 MMHG Normal [facility] Comment on above: Performed By: #### V BG #### [facility] ([id number]) [address] [place] [address] 99531 PCO2, VENOUS 26.5 MMHG Low 35-[address] [facility] Comment on above: Performed By: #### V BG #### [facility] ([id number]) [address] [place] [address] 55825 PH FABIO. FOR TEMP 7.579 Normal [facility] Comment on above: Performed By: #### V BG #### [facility] ([id number]) [address] [place] [address] 90450 PH, VENOUS 7.586 High 7.320-7.[address] [facility] Comment on above: Performed By: #### V BG #### [facility] ([id number]) [address] [place] [address] 72290 PO2 FABIO. FOR TEMP [address] [facility] Comment on above: Performed By: #### V BG #### [facility] ([id number]) [address] [place] [address] 43241 PO2, VENOUS 210 MM[facility] High 30-[address] [facility] Comment on above: Performed By: #### V BG #### [facility] ([id number]) [address] [place] [address] 48624 SAMPLE SITE N/A Normal [facility] Comment on above: Performed By: #### V BG #### [facility] ([id number]) [address] [place] [address] 39509 SAMPLE TYPE VENOUS Normal [facility] Comment on above: Performed By: #### V BG #### [facility] ([id number]) [address] [place] [address] 94243 XR CHEST 1 VWon 08-04-2023 XR CHEST [...] Huerta MD on 08/04/2023 8:24 PM Normal [facility] aPTT Coag (PPP) [Time]on aPTT Coag (Bld) [Time] 31 s Normal 26-37 [facility] Comment on above: Result Comment: NEW REFERENCE RANGE Performed By: #### C BCA, BMP, 3040-3, 13532-5, LIVR, 83145-0, PINR, 87637-0, THYR #### [facility] ([id number]) [address] [place] [address] 86335 Smear to Pathologiston 04-18 Smear to Pathologist ELECTRONICALLY SIGNED. TORRES RICK MD [facility] Comment on above: Performed By: #### P T, RAFFAELE, MG, CBC, CPBILC #### [address] [address] Sample Case Porter: Pete Ward MD Basic Metab w/rfx MGon 04-17 Anion gap [Moles/Vol] 10 mmol/L Normal 9-17 [facility] Comment on above: Performed By: #### P T, RAFFAELE, MG, CBC, CPBILC #### [address] [address] Sample Case Porter: Pete Ward MD Calcium [Mass/Vol] 9.4 mg/dL Normal 8.6-10.4 [facility] Comment on above: Performed By: #### P T, RAFFAELE, MG, CBC, CPBILC #### [place] [address] Sample Case Porter: Pete Ward MD Chloride [Moles/Vol] 96 mmol/L Low 98-107 [facility] Comment on above: Performed By: #### P T, RAFFAELE, MG, CBC, CPBILC #### [address] [address] Sample Case Porter: Pete Ward MD CO2 [Moles/Vol] 29 mmol/L Normal 20-31 [facility] Comment on above: Performed By: #### P T, RAFFAELE, MG, CBC, CPBILC #### [address] [address] Sample Case Porter: Pete Ward MD Creatinine [Mass/Vol] 0.6 mg/dL Low 0.7-1.2 [facility] Comment on above: Performed By: #### P T, RAFFAELE, MG, CBC, CPBILC #### [address] [id number] Sample Case Porter: Pete Ward MD GFR/1.73 sq M.predicted among non-blacks MDRD (S/P/Bld) [Vol rate/Area] mL/min/{1.73_m2} Normal >60 [facility] Comment on above: Result Comment: These results [...] P T, RAFFAELE, MG, CBC, CPBILC #### [address] [address] Sample Case Porter: Pete Ward MD Glucose [Mass/Vol] 87 mg/dL Normal 70-99 [facility] Comment on above: Performed By: #### P T, RAFFAELE, MG, CBC, CPBILC #### [address] [address] Sample Case Porter: Pete Ward MD Potassium [Moles/Vol] 3.8 mmol/L Normal 3.7-5.3 [facility] Comment on above: Performed By: #### P T, RAFFAELE, MG, CBC, CPBILC #### [address] [address] Sample Case Porter: Pete Ward MD Sodium [Moles/Vol] 135 mmol/L Normal 135-144 [facility] Comment on above: Performed By: #### P T, RAFFAELE, MG, CBC, CPBILC #### [address] [id number] Sample Case Porter: Pete Ward MD Urea nitrogen [Mass/Vol] 10 mg/dL Normal 8-23 [facility] Comment on above: Performed By: #### P T, RAFFAELE, MG, CBC, CPBILC #### [address] [address] Sample Case Porter: Pete Ward MD CBC with Diffon 04-17-2023 Abs. Basophil 0.08 k/uL Normal 0.00-0.20 [facility] Comment on above: Performed By: #### P T, RAFFAELE, MG, CBC, CPBILC #### [address] [address] Sample Case Porter: Pete Ward MD Abs.Imm.Granulocyte 0.08 k/uL Normal 0.00-0.30 [facility] Comment on above: Performed By: #### P T, RAFFAELE, MG, CBC, CPBILC #### [place] [address] Sample Case Porter: Pete Ward MD Abs.Neutrophil (Seg) 6.40 k/uL Normal 1.50-8.10 [facility] Comment on above: Performed By: #### P T, RAFFAELE, MG, CBC, CPBILC #### [place] [address] Sample Case Porter: Pete Ward MD Basophils/100 WBC (Bld) 1 % Normal 0-2 M [facility] Comment on above: Performed By: #### P T, RAFFAELE, MG, CBC, CPBILC #### [place] [address] Sample Case Porter: Pete Ward MD Eosinophils (Bld) [#/Vol] 0.42 10*3/uL Normal 0.00-0.4 4 [facility] Comment on above: Performed By: #### P T, RAFFAELE, MG, CBC, CPBILC #### [place] [address] Sample Case Porter: Pete Ward MD Eosinophils/100 WBC (Bld) 5 % High 1-4 [facility] Comment on above: Performed By: #### P T, RAFFAELE, MG, CBC, CPBILC #### [address] [address] Sample Case Porter: Pete Ward MD Immature granulocytes/100 WBC (Bld) 1 % High 0 [facility] Comment on above: Performed By: #### P T, RAFFAELE, MG, CBC, CPBILC #### [place] [address] Sample Case Porter: Pete Wrad MD Lymphocytes (Bld) [#/Vol] 0.92 10*3/uL Low 1.10-3.7 0 [facility] Comment on above: Performed By: #### P T, RAFFAELE, MG, CBC, CPBILC #### [place] [address] Sample Case Porter: Pete Ward MD Lymphocytes/100 WBC (Bld) 11 % Low 24-43 [facility] Comment on above: Performed By: #### P T, RAFFAELE, MG, CBC, CPBILC #### [address] [address] Sample Case Porter: Pete Ward MD Monocytes (Bld) [#/Vol] 0.50 10*3/uL Normal 0.10-1.20 [facility] Comment on above: Performed By: #### P T, RAFFAELE, MG, CBC, CPBILC #### [place] [address] Sample Case Porter: Pete Ward MD Monocytes/100 WBC (Bld) 6 % Normal 3-12 M [facility] Comment on above: Performed By: #### P T, RAFFAELE, MG, CBC, CPBILC #### [address] [address] Sample Case Porter: Pete Ward MD Morphology Luis (Bld) [Interp] ANISOCYTOSIS PRESENT Normal [facility] Comment on above: Result Comment: 1+ POLYCHROMASIA 1+ ELLIPTOCYTES Performed By: #### P T, RAFFAELE, MG, CBC, CPBILC #### [address] [address] Sample Case Porter: Pete Ward MD Neutrophil (Seg) 76 % High 36-65 [facility] Comment on above: Performed By: #### P T, RAFFAELE, MG, CBC, CPBILC #### [address] [address] Sample Case Porter: Pete Ward MD Erythrocyte distribution width (RBC) [Ratio] 24.7 % High 11.8-14.4 [facility] Comment on above: Performed By: #### P T, RAFFAELE, MG, CBC, CPBILC #### [address] [address] Sample Case Porter: Pete Ward MD Hematocrit (Bld) [Volume fraction] 25.8 % Low 40.7-50.3 [facility] Comment on above: Performed By: #### P T, RAFFAELE, MG, CBC, CPBILC #### [address] [address] Sample Case Porter: Pete Ward MD Hemoglobin (Bld) [Mass/Vol] 7.7 g/dL Low 13.0-17.0 [facility] Comment on above: Performed By: #### P T, RAFFAELE, MG, CBC, CPBILC #### [address] [address] Sample Case Porter: Pete Ward MD MCH (RBC) [Entitic mass] 25.8 pg Normal 25.2-33.5 [facility] Comment on above: Performed By: #### P T, RAFFAELE, MG, CBC, CPBILC #### [address] [address] Sample Case Porter: Pete Ward MD MCHC (RBC) [Mass/Vol] 29.8 g/dL Normal 28.4-34.8 [facility] Comment on above: Performed By: #### P T, RAFFAELE, MG, CBC, CPBILC #### [address] [address] Sample Case Porter: Pete Ward MD MCV (RBC) [Entitic vol] 86.6 fL Normal 82.6-102.9 M [facility] Comment on above: Performed By: #### P T, RAFFAELE, MG, CBC, CPBILC #### [address] [address] Sample Case Porter: Pete Ward MD NRBC Automated 0.0 per 100 WBC Normal 0.0 [facility] Comment on above: Performed By: #### P T, RAFFAELE, MG, CBC, CPBILC #### [address] [address] Sample Case Porter: Pete Ward MD Platelet mean volume (Bld) [Entitic vol] 11.9 fL Normal 8.1-13.5 [facility] Comment on above: Performed By: #### P T, RAFFAELE, MG, CBC, CPBILC #### [address] [address] Sample Case Porter: Pete Ward MD Platelets (Bld) [#/Vol] 471 10*3/uL High 138-453 [facility] Comment on above: Performed By: #### P T, RAFFAELE, MG, CBC, CPBILC #### [address] [address] Sample Case Porter: Pete Ward MD RBC (Bld) [#/Vol] 2.98 10*6/uL Low 4.21-5.77 [facility] Comment on above: Performed By: #### P T, RAFFAELE, MG, CBC, CPBILC #### [facility] [address] [place], [place] [phone] Sample Case Porter: Pete Ward MD WBC (Bld) [#/Vol] 8.4 10*3/uL Normal 3.5-11.3 [facility] Comment on above: Performed By: #### P T, RAFFAELE, MG, CBC, CPBILC #### [facility] [place], [place] [id number] Sample Case Porter: Pete Ward MD [id number] 04-17-2023 SARS-CoV-2 (COVID-19) RNA ARIEL+probe Ql (Unsp spec) Not detected Normal NOTDET [facility] Comment on above: Result Comment: Rapid NAAT: [...] management decisions. Fact sheet for Healthcare Providers: https://www.fda.gov/media/452364/download Fact sheet for Patients: https://www.fda.gov/media/802097/download Methodology: Isothermal Nucleic Acid Amplification Performed By: #### P T, RAFFAELE, MG, CBC, CPBILC #### [facility] [address] [place], [place] [id number] Sample Case Porter: Pete Ward MD Surgical Pathology Reporton 04-17-2023 Surgical Pathology Report (NOTE) Path Number: [id number] -- Diagnosis -- ASCENDING COLON, ENDOSCOPIC MUCOSAL [...] Microscopic Description Microscopic evaluation performed. Processing Lab: [place] [id number] Interpretation Performed at [place] [id number] SURGICAL PATHOLOGY CONSULTATION Patient Name: DAMI ALCALA [facility] Rec: [id number] [facility] [address] [place] [phone] Normal [facility] CBC with Diffon 04-16-2023 Abs. Basophil 0.10 k/uL Normal 0.0-0.2 [facility] Comment on above: Performed By: #### P T, RAFFAELE, MG, CBC, CPBILC #### [employer] [address] [place] [address] Sample Case Porter: Pete Ward MD Abs.Imm.Granulocyte 0.00 k/uL Normal 0.00-0.30 [facility] Comment on above: Performed By: #### P T, RAFFAELE, MG, CBC, CPBILC #### [facility] [address] [place] [address] Sample Case Porter: Pete Ward MD Abs.Neutrophil (Seg) 8.59 k/uL High 1.8-7.7 [facility] Comment on above: Performed By: #### P T, RAFFAELE, MG, CBC, CPBILC #### [address] [address] Sample Case Porter: Pete Ward MD Basophils/100 WBC (Bld) 1 % Normal 0-2 M [facility] Comment on above: Performed By: #### P T, RAFFAELE, MG, CBC, CPBILC #### [place] [address] Sample Case Porter: Pete Ward MD Eosinophils (Bld) [#/Vol] 0.10 10*3/uL Normal 0.0-0.4 [facility] Comment on above: Performed By: #### P T, RAFFAELE, MG, CBC, CPBILC #### [place] [address] Sample Case Porter: Pete Ward MD Eosinophils/100 WBC (Bld) 1 % Normal 1-4 [facility] Comment on above: Performed By: #### P T, RAFFAELE, MG, CBC, CPBILC #### [address] [address] Sample Case Porter: Pete Ward MD Immature granulocytes/100 WBC (Bld) 0 % Normal 0 [facility] Comment on above: Performed By: #### P T, RAFFAELE, MG, CBC, CPBILC #### [place] [address] Sample Case Porter: Pete Ward MD Lymphocytes (Bld) [#/Vol] 0.91 10*3/uL Low 1.0-4.8 [facility] Comment on above: Performed By: #### P T, RAFFAELE, MG, CBC, CPBILC #### [address] [address] Sample Case Porter: Pete Ward MD Lymphocytes/100 WBC (Bld) 9 % Low 24-44 [facility] Comment on above: Performed By: #### P T, RAFFAELE, MG, CBC, CPBILC #### [address] [address] Sample Case Porter: Pete Ward MD Monocytes (Bld) [#/Vol] 0.40 10*3/uL Normal 0.1-0.8 [facility] Comment on above: Performed By: #### P T, RAFFAELE, MG, CBC, CPBILC #### [place] [address] Sample Case Porter: Pete Ward MD Monocytes/100 WBC (Bld) 4 % Normal 1-7 M [facility] Comment on above: Performed By: #### P T, RAFFAELE, MG, CBC, CPBILC #### [place] [address] Sample Case Porter: Pete Ward MD Morphology Luis (Bld) [Interp] ANISOCYTOSIS PRESENT Normal [facility] Comment on above: Result Comment: 1+ POLYCHROMASIA 1+ ELLIPTOCYTES HYPOCHROMIA PRESENT Performed By: #### P T, RAFFAELE, MG, CBC, CPBILC #### [place] [address] Sample Case Porter: Pete Ward MD Neutrophil (Seg) 85 % High 36-66 [facility] Comment on above: Performed By: #### P T, RAFFAELE, MG, CBC, CPBILC #### [address] [address] Sample Case Porter: Pete Ward MD Erythrocyte distribution width (RBC) [Ratio] 23.2 % High 11.8-14.4 [facility] Comment on above: Performed By: #### P T, RAFFAELE, MG, CBC, CPBILC #### [address] [address] Sample Case Porter: Pete Ward MD Hematocrit (Bld) [Volume fraction] 25.9 % Low 40.7-50.3 [facility] Comment on above: Performed By: #### P T, RAFFAELE, MG, CBC, CPBILC #### [address] [address] Sample Case Porter: Pete Ward MD Hemoglobin (Bld) [Mass/Vol] 7.5 g/dL Low 13.0-17.0 [facility] Comment on above: Performed By: #### P T, RAFFAELE, MG, CBC, CPBILC #### [place] [address] Sample Case Porter: Pete Ward MD MCH (RBC) [Entitic mass] 25.5 pg Normal 25.2-33.5 [facility] Comment on above: Performed By: #### P T, RAFFAELE, MG, CBC, CPBILC #### [place] [address] Sample Case Porter: Pete Ward MD MCHC (RBC) [Mass/Vol] 29.0 g/dL Normal 28.4-34.8 [facility] Comment on above: Performed By: #### P T, RAFFAELE, MG, CBC, CPBILC #### [place] [address] Sample Case Porter: Pete Ward MD MCV (RBC) [Entitic vol] 88.1 fL Normal 82.6-102.9 M [facility] Comment on above: Performed By: #### P T, RAFFAELE, MG, CBC, CPBILC #### [address] [phone] Sample Case Porter: Pete Ward MD NRBC Automated 0.0 per 100 WBC Normal 0.0 [facility] Comment on above: Performed By: #### P T, RAFFAELE, MG, CBC, CPBILC #### [address] [address] Sample Case Porter: Pete Ward MD Platelet mean volume (Bld) [Entitic vol] 11.5 fL Normal 8.1-13.5 [facility] Comment on above: Performed By: #### P T, RAFFAELE, MG, CBC, CPBILC #### [address] [address] Sample Case Porter: Pete Ward MD Platelets (Bld) [#/Vol] 457 10*3/uL High 138-453 [facility] Comment on above: Performed By: #### P T, RAFFAELE, MG, CBC, CPBILC #### [address] [address] Sample Case Porter: Pete Ward MD RBC (Bld) [#/Vol] 2.94 10*6/uL Low 4.21-5.77 [facility] Comment on above: Performed By: #### P T, RAFFAELE, MG, CBC, CPBILC #### [address] [address] Sample Case Porter: Pete Ward MD WBC (Bld) [#/Vol] 10.1 10*3/uL Normal 3.5-11.3 [facility] Comment on above: Performed By: #### P T, RAFFAELE, MG, CBC, CPBILC #### [place] [address] Sample Case Porter: Pete Ward MD CBC with Diffon 04-15-2023 Abs. Basophil 0.10 k/uL Normal 0.0-0.2 [facility] Comment on above: Performed By: #### P T, RAFFAELE, MG, CBC, CPBILC #### [address] [address] Sample Case Porter: Pete Ward MD Abs.Imm.Granulocyte 0.00 k/uL Normal 0.00-0.30 [facility] Comment on above: Performed By: #### P T, RAFFAELE, MG, CBC, CPBILC #### [place] [address] Sample Case Porter: Pete Ward MD Abs.Neutrophil (Seg) 7.71 k/uL High 1.8-7.7 [facility] Comment on above: Performed By: #### P T, RAFFAELE, MG, CBC, CPBILC #### [address] [address] Sample Case Porter: Pete Ward MD Basophils/100 WBC (Bld) 1 % Normal 0-2 [facility] Comment on above: Performed By: #### P T, RAFFAELE, MG, CBC, CPBILC #### [place] [address] Sample Case Porter: Pete Ward MD Eosinophils (Bld) [#/Vol] 0.62 10*3/uL High 0.0-0.4 [facility] Comment on above: Performed By: #### P T, RAFFAELE, MG, CBC, CPBILC #### [address] [address] Sample Case Porter: Pete Ward MD Eosinophils/100 WBC (Bld) 6 % High 1-4 [facility] Comment on above: Performed By: #### P T, RAFFAELE, MG, CBC, CPBILC #### [address] [address] Sample Case Porter: Pete Ward MD Immature granulocytes/100 WBC (Bld) 0 % Normal 0 [facility] Comment on above: Performed By: #### P T, RAFFAELE, MG, CBC, CPBILC #### [address] [address] Sample Case Porter: Pete Ward MD Lymphocytes (Bld) [#/Vol] 1.14 10*3/uL Normal 1.0-4.8 [facility] Comment on above: Performed By: #### P T, RAFFAELE, MG, CBC, CPBILC #### [address] [address] Sample Case Porter: Pete Ward MD Lymphocytes/100 WBC (Bld) 11 % Low 24-44 [facility] Comment on above: Performed By: #### P T, RAFFAELE, MG, CBC, CPBILC #### [address] [address] Sample Case Porter: Pete Ward MD Monocytes (Bld) [#/Vol] 0.83 10*3/uL High 0.1-0.8 [facility] Comment on above: Performed By: #### P T, RAFFAELE, MG, CBC, CPBILC #### [address] [address] Sample Case Porter: Pete Ward MD Monocytes/100 WBC (Bld) 8 % High 1-7 M [facility] Comment on above: Performed By: #### P T, RAFFAELE, MG, CBC, CPBILC #### [address] [address] Sample Case Porter: Pete Ward MD Morphology Luis (Bld) [Interp] ANISOCYTOSIS PRESENT Normal [facility] Comment on above: Result Comment: HYPO CHROMIA PRESENT 1+ ELLIPTOCYTES 1+ POLYCHROMASIA Performed By: #### P T, RAFFAELE, MG, CBC, CPBILC #### [address] [address] Sample Case Porter: Pete Ward MD Neutrophil (Seg) 74 % High 36-66 [facility] Comment on above: Performed By: #### P T, RAFFAELE, MG, CBC, CPBILC #### [place] [address] Sample Case Porter: Pete Ward MD Erythrocyte distribution width (RBC) [Ratio] 21.9 % High 11.8-14.4 [facility] Comment on above: Performed By: #### P T, RAFFAELE, MG, CBC, CPBILC #### [place] [address] Sample Case Porter: Pete Ward MD Hematocrit (Bld) [Volume fraction] 26.7 % Low 40.7-50.3 [facility] Comment on above: Performed By: #### P T, RAFFAELE, MG, CBC, CPBILC #### [place] [address] Sample Case Porter: Pete Ward MD Hemoglobin (Bld) [Mass/Vol] 7.7 g/dL Low 13.0-17.0 [facility] Comment on above: Performed By: #### P T, RAFFAELE, MG, CBC, CPBILC #### [place] [address] Sample Case Porter: Pete Ward MD MCH (RBC) [Entitic mass] 25.5 pg Normal 25.2-33.5 [facility] Comment on above: Performed By: #### P T, RAFFAELE, MG, CBC, CPBILC #### [place] [address] Sample Case Porter: Pete Ward MD MCHC (RBC) [Mass/Vol] 28.8 g/dL Normal 28.4-34.8 [facility] Comment on above: Performed By: #### P T, RAFFAELE, MG, CBC, CPBILC #### [address] [address] Sample Case Porter: Pete Ward MD MCV (RBC) [Entitic vol] 88.4 fL Normal 82.6-102.9 [facility] Comment on above: Performed By: #### P T, RAFFAELE, MG, CBC, CPBILC #### [address] [address] Sample Case Porter: Pete Ward MD NRBC Automated 0.2 per 100 WBC High 0.0 [facility] Comment on above: Performed By: #### P T, RAFFAELE, MG, CBC, CPBILC #### [address] [address] Sample Case Porter: Pete Ward MD Platelet mean volume (Bld) [Entitic vol] 11.8 fL Normal 8.1-13.5 [facility] Comment on above: Performed By: #### P T, RAFFAELE, MG, CBC, CPBILC #### [address] [address] Sample Case Porter: Pete Ward MD Platelets (Bld) [#/Vol] 403 10*3/uL Normal 138-453 [facility] Comment on above: Performed By: #### P T, RAFFAELE, MG, CBC, CPBILC #### [address] [address] Sample Case Porter: Pete Ward MD RBC (Bld) [#/Vol] 3.02 10*6/uL Low 4.21-5.77 [facility] Comment on above: Performed By: #### P T, RAFFAELE, MG, CBC, CPBILC #### [address] [address] Sample Case Porter: Pete Ward MD WBC (Bld) [#/Vol] 10.4 10*3/uL Normal 3.5-11.3 [facility] Comment on above: Performed By: #### P T, RAFFAELE, MG, CBC, CPBILC #### [facility] [address] [place] [address] Sample Case Porter: Pete Ward MD Basic Metab w/rfx MG 04-14 Anion gap [Moles/Vol] 6 mmol/L Low 9-17 [facility] Comment on above: Performed By: #### P T, RAFFAELE, MG, CBC, CPBILC #### [address] [address] Sample Case Porter: Pete Ward MD Calcium [Mass/Vol] 9.8 mg/dL Normal 8.6-10.4 [facility] Comment on above: Performed By: #### P T, RAFFAELE, MG, CBC, CPBILC #### [facility] [address] [place] [address] Sample Case Porter: Pete Ward MD Chloride [Moles/Vol] 98 mmol/L Normal 98-107 [facility] Comment on above: Performed By: #### P T, RAFFAELE, MG, CBC, CPBILC #### [facility] [address] [place] [address] Sample Case Porter: Pete Ward MD CO2 [Moles/Vol] 33 mmol/L High 20-31 [facility] Comment on above: Performed By: #### P T, RAFFAELE, MG, CBC, CPBILC #### [facility] [address] [place] [address] Sample Case Porter: Pete Ward MD Creatinine [Mass/Vol] 0.5 mg/dL Low 0.7-1.2 [facility] Comment on above: Performed By: #### P T, RAFFAELE, MG, CBC, CPBILC #### [facility] [address] [place] [address] Sample Case Porter: Pete Ward MD GFR/1.73 sq M.predicted among non-blacks MDRD (S/P/Bld) [Vol rate/Area] mL/min/{1.73_m2} Normal >60 [facility] Comment on above: Result Comment: These results [...] P T, RAFFAELE, MG, CBC, CPBILC #### [place] [address] Sample Case Porter: Pete Ward MD Glucose [Mass/Vol] 127 mg/dL High 70-99 [facility] Comment on above: Performed By: #### P T, RAFFAELE, MG, CBC, CPBILC #### [place] [address] Sample Case Porter: Pete Ward MD Potassium [Moles/Vol] 4.0 mmol/L Normal 3.7-5.3 [facility] Comment on above: Performed By: #### P T, RAFFAELE, MG, CBC, CPBILC #### [address] [address] Sample Case Porter: Pete Ward MD Sodium [Moles/Vol] 137 mmol/L Normal 135-144 [facility] Comment on above: Performed By: #### P T, RAFFAELE, MG, CBC, CPBILC #### [place] [address] Sample Case Porter: Pete Ward MD Urea nitrogen [Mass/Vol] 17 mg/dL Normal 8-23 [facility] Comment on above: Performed By: #### P T, RAFFAELE, MG, CBC, CPBILC #### [address] [address] Sample Case Porter: Pete Ward MD CBC with Diffon 04-14-2023 Abs. Basophil 0.11 k/uL Normal 0.00-0.20 [facility] Comment on above: Performed By: #### P T, RAFFAELE, MG, CBC, CPBILC #### [place] [address] Sample Case Porter: Pete Ward MD Abs.Imm.Granulocyte 0.00 k/uL Normal 0.00-0.30 [facility] Comment on above: Performed By: #### P T, RAFFAELE, MG, CBC, CPBILC #### [place] [address] Sample Case Porter: Pete Ward MD Abs.Neutrophil (Seg) 8.05 k/uL Normal 1.50-8.10 [facility] Comment on above: Performed By: #### P T, RAFFAELE, MG, CBC, CPBILC #### [place] [address] Sample Case Porter: Pete Ward MD Basophils/100 WBC (Bld) 1 % Normal 0-2 M [facility] Comment on above: Performed By: #### P T, RAFFAELE, MG, CBC, CPBILC #### [place] [address] Sample Case Porter: Pete Ward MD Eosinophils (Bld) [#/Vol] 0.32 10*3/uL Normal 0.00-0.4 4 [facility] Comment on above: Performed By: #### P T, RAFFAELE, MG, CBC, CPBILC #### [place] [address] Sample Case Porter: Pete Ward MD Eosinophils/100 WBC (Bld) 3 % Normal 1-4 [facility] Comment on above: Performed By: #### P T, RAFFAELE, MG, CBC, CPBILC #### [address] [address] Sample Case Porter: Pete Ward MD Immature granulocytes/100 WBC (Bld) 0 % Normal 0 [facility] Comment on above: Performed By: #### P T, RAFFAELE, MG, CBC, CPBILC #### [address] [address] Sample Case Porter: Pete Ward MD Lymphocytes (Bld) [#/Vol] 1.17 10*3/uL Normal 1.10-3.7 0 [facility] Comment on above: Performed By: #### P T, RAFFAELE, MG, CBC, CPBILC #### [place] [address] Sample Case Porter: Pete Ward MD Lymphocytes/100 WBC (Bld) 11 % Low 24-43 [facility] Comment on above: Performed By: #### P T, RAFFAELE, MG, CBC, CPBILC #### [address] [address] Sample Case Porter: Pete Ward MD Monocytes (Bld) [#/Vol] 0.95 10*3/uL Normal 0.10-1.20 [facility] Comment on above: Performed By: #### P T, RAFFAELE, MG, CBC, CPBILC #### [address] [address] Sample Case Porter: Pete Ward MD Monocytes/100 WBC (Bld) 9 % Normal 3-12 M [facility] Comment on above: Performed By: #### P T, RAFFAELE, MG, CBC, CPBILC #### [address] [address] Sample Case Porter: Pete Ward MD Morphology Luis (Bld) [Interp] ANISOCYTOSIS PRESENT Normal [facility] Comment on above: Result Comment: HYPO CHROMIA PRESENT Performed By: #### P T, RAFFAELE, MG, CBC, CPBILC #### [address] [address] Sample Case Porter: Pete Ward MD Neutrophil (Seg) 76 % High 36-65 [facility] Comment on above: Performed By: #### P T, RAFFAELE, MG, CBC, CPBILC #### [place] [address] Sample Case Porter: Pete Ward MD Erythrocyte distribution width (RBC) [Ratio] 22.8 % High 11.8-14.4 [facility] Comment on above: Performed By: #### P T, RAFFAELE, MG, CBC, CPBILC #### [place] [address] Sample Case Porter: Pete Ward MD Hematocrit (Bld) [Volume fraction] 23.4 % Low 40.7-50.3 [facility] Comment on above: Performed By: #### P T, RAFFAELE, MG, CBC, CPBILC #### [address] [address] Sample Case Porter: Pete Ward MD Hemoglobin (Bld) [Mass/Vol] 6.5 g/dL Critically low 13.0-17.0 [facility] Comment on above: Performed By: #### P T, RAFFAELE, MG, CBC, CPBILC #### [address] [address] Sample Case Porter: Pete Ward MD MCH (RBC) [Entitic mass] 24.2 pg Low 25.2-33.5 [facility] Comment on above: Performed By: #### P T, RAFFAELE, MG, CBC, CPBILC #### [address] [address] Sample Case Porter: Pete Ward MD MCHC (RBC) [Mass/Vol] 27.8 g/dL Low 28.4-34.8 [facility] Comment on above: Performed By: #### P T, RAFFAELE, MG, CBC, CPBILC #### [address] [address] Sample Case Porter: Pete Ward MD MCV (RBC) [Entitic vol] 87.0 fL Normal 82.6-102.9 M [facility] Comment on above: Performed By: #### P T, RAFFAELE, MG, CBC, CPBILC #### [address] [address] Sample Case Porter: Pete Ward MD NRBC Automated 0.0 per 100 WBC Normal 0.0 [facility] Comment on above: Performed By: #### P T, RAFFAELE, MG, CBC, CPBILC #### [place] [address] Sample Case Porter: Pete Ward MD Platelet mean volume (Bld) [Entitic vol] 12.4 fL Normal 8.1-13.5 [facility] Comment on above: Performed By: #### P T, RAFFAELE, MG, CBC, CPBILC #### [address] [address] Sample Case Porter: Pete Ward MD Platelets (Bld) [#/Vol] 372 10*3/uL Normal 138-453 [facility] Comment on above: Performed By: #### P T, RAFFAELE, MG, CBC, CPBILC #### [address] [address] Sample Case Porter: Pete Ward MD RBC (Bld) [#/Vol] 2.69 10*6/uL Low 4.21-5.77 [facility] Comment on above: Performed By: #### P T, RAFFAELE, MG, CBC, CPBILC #### [facility] [address] [place] [address] Sample Case Porter: Pete Ward MD WBC (Bld) [#/Vol] 10.6 10*3/uL Normal 3.5-11.3 [facility] Comment on above: Performed By: #### P T, RAFFAELE, MG, CBC, CPBILC #### [facility] [address] [place], [place] [phone] Sample Case Porter: Pete Ward MD CT ABDOMEN PELVIS WO [...] MD 04/14/23 Final result Normal [facility] Hgb/Hcton 04-14-2023 Hematocrit (Bld) [Volume fraction] 26.3 % Low 40.7-50.3 [facility] Comment on above: Performed By: #### P T, RAFFAELE, MG, CBC, CPBILC #### [facility] [address] [place] [address] Sample Case Porter: Pete Ward MD Hemoglobin (Bld) [Mass/Vol] 7.7 g/dL Low 13.0-17.0 [facility] Comment on above: Performed By: #### P T, RAFFAELE, MG, CBC, CPBILC #### [facility] [address] [place] [address] Sample Case Porter: Pete Ward MD Lactate Dehydrogenaseon 04-05 LDH [Catalytic activity/Vol] 199 U/L Normal 135-225 [facility] Comment on above: Performed By: #### P T, RAFFAELE, MG, CBC, CPBILC #### [facility] [address] [place] [address] Sample Case Porter: Pete Ward MD Occult Blood, Fecalon 2022 Occult Blood 1 Positive Abnormal NEG [facility] Comment on above: Performed By: #### P T, RAFFAELE, MG, CBC, CPBILC #### [facility] [address] [place] [address] Sample Case Porter: Pete Ward MD Specimen 1 Date .FECES Normal [facility] Comment on above: Performed By: #### P T, RAFFAELE, MG, CBC, CPBILC #### [facility] [address] [place] [phone] Sample Case Porter: Pete Ward MD Specimen 1 Time .FECES Normal [facility] Comment on above: Performed By: #### P T, RAFFAELE, MG, CBC, CPBILC #### [address] [id number] Sample Case Porter: Pete Ward MD Retic Counton 04-14-2023 Absolute Retic 0.130 M/uL High 0.030-0.080 [facility] Comment on above: Performed By: #### P T, RAFFAELE, MG, CBC, CPBILC #### [address] [phone] Sample Case Porter: Pete Ward MD IRF 44.2 % High 2.7-18.3 [facility] Comment on above: Performed By: #### P T, RAFFAELE, MG, CBC, CPBILC #### [address] [phone] Sample Case Porter: Pete Ward MD Retic Count 4.7 % High 0.5-1.9 [facility] Comment on above: Performed By: #### P T, RAFFAELE, MG, CBC, CPBILC #### [address] [phone] Sample Case Porter: Pete Ward MD Retic Hemoglobin 18.6 pg Low 28.2-35.7 [facility] Comment on above: Performed By: #### P T, RAFFAELE, MG, CBC, CPBILC #### [address] [phone] Sample Case Porter: Pete Ward MD Surgical Pathology Reporton 04-14-2023 Surgical Pathology Report (NOTE) [id number] [facility] [address] [place] [id number] SURGICAL PATHOLOGY CONSULTATION Patient Name: DAMI ALCALA MR#: [id number] Specimen #[id number] Procedures/Addenda PERIPHERAL BLOOD REPORT Date Ordered: 04/17/2023 [...] the electronic health record for CBC parameters ([id number], 04/14/2023, 08:20). PLATELETS: Platelets show normal morphology. LEUKOCYTES: White blood cells show normal morphology. There are no blasts. ERYTHROCYTES: Normocytic, hypochromic. Anisocytosis. Reticulocyte count 4.7%. Red blood cells show normal morphology. Note: The electronic health record is reviewed. Torres Rick M.D. Source: A: Peripheral Blood Normal [facility] Type + Screenon 04-14-2023 Type + Screen Sample Expiration 04/16/2023,2359 Arm Band Number [id number] ABO/Rh(D) A POSITIVE Antibody Screen NEGATIVE Unit Number [id number] Blood Component Type Leukocyte Reduced Red Cell Unit Division 00 Status of Unit TRANSFUSED Transfusion Status OK TO TRANSFUSE Crossmatch Result COMPATIBLE Unit Number [id number] Blood Component Type Leukocyte Reduced Red Cell Unit Division 00 Status of Unit TRANSFUSED Transfusion Status OK TO TRANSFUSE Crossmatch Result COMPATIBLE Normal [facility] Comment on above: Performed By: #### P T, RAFFAELE, MG, CBC, CPBILC #### [facility] [place], [place] [id number] Sample Case Porter: Pete Ward MD XR ABDOMEN FOR NG/OG/NE [...] MD 04/14/23 Final result Normal [facility] Basic Metab w/rfx MGon 04-13 Anion gap [Moles/Vol] 5 mmol/L Low 9-17 [facility] Comment on above: Performed By: #### P T, RAFFAELE, MG, CBC, CPBILC #### [address] [address] Sample Case Porter: Pete Ward MD Calcium [Mass/Vol] 9.7 mg/dL Normal 8.6-10.4 [facility] Comment on above: Performed By: #### P T, RAFFAELE, MG, CBC, CPBILC #### [facility] [address] [place] [address] Sample Case Porter: Pete Ward MD Chloride [Moles/Vol] 99 mmol/L Normal 98-107 [facility] Comment on above: Performed By: #### P T, RAFFAELE, MG, CBC, CPBILC #### [facility] [address] [place] [address] Sample Case Porter: Peet Ward MD CO2 [Moles/Vol] 33 mmol/L High 20-31 [facility] Comment on above: Performed By: #### P T, RAFFAELE, MG, CBC, CPBILC #### [facility] [address] [place] [address] Sample Case Porter: Pete Ward MD Creatinine [Mass/Vol] 0.6 mg/dL Low 0.7-1.2 [facility] Comment on above: Performed By: #### P T, RAFFAELE, MG, CBC, CPBILC #### [facility] [address] [place] [address] Sample Case Porter: Pete Ward MD GFR/1.73 sq M.predicted among non-blacks MDRD (S/P/Bld) [Vol rate/Area] mL/min/{1.73_m2} Normal >60 [facility] Comment on above: Result Comment: These results [...] P T, RAFFAELE, MG, CBC, CPBILC #### [facility] [address] [place] [address] Sample Case Porter: Pete Ward MD Glucose [Mass/Vol] 117 mg/dL High 70-99 [facility] Comment on above: Performed By: #### P T, RAFFAELE, MG, CBC, CPBILC #### [facility] [address] [place] [address] [phone] Sample Case Porter: Pete Ward MD Potassium [Moles/Vol] 4.6 mmol/L Normal 3.7-5.3 [facility] Comment on above: Performed By: #### P T, RAFFAELE, MG, CBC, CPBILC #### [facility] [address] [place] [address] [phone] Sample Case Porter: Pete Ward MD Sodium [Moles/Vol] 137 mmol/L Normal 135-144 [facility] Comment on above: Performed By: #### P T, RAFFAELE, MG, CBC, CPBILC #### [facility] [address] [place] [address] Sample Case Porter: Pete Ward MD Urea nitrogen [Mass/Vol] 18 mg/dL Normal 8-23 [facility] Comment on above: Performed By: #### P T, RAFFAELE, MG, CBC, CPBILC #### [place] [address] Sample Case Porter: Pete Ward MD CBC with Diffon 04-13-2023 Abs. Basophil 0.08 k/uL Normal 0.00-0.20 [facility] Comment on above: Performed By: #### P T, RAFFAELE, MG, CBC, CPBILC #### [place] [address] Sample Case Porter: Pete Ward MD Abs.Imm.Granulocyte 0.08 k/uL Normal 0.00-0.30 [facility] Comment on above: Performed By: #### P T, RAFFAELE, MG, CBC, CPBILC #### [place] [address] Sample Case Porter: Pete Ward MD Abs.Neutrophil (Seg) 6.39 k/uL Normal 1.50-8.10 [facility] Comment on above: Performed By: #### P T, RAFFAELE, MG, CBC, CPBILC #### [place] [address] Sample Case Porter: Pete Ward MD Basophils/100 WBC (Bld) 1 % Normal 0-2 M [facility] Comment on above: Performed By: #### P T, RAFFAELE, MG, CBC, CPBILC #### [place] [address] Sample Case Porter: Pete Ward MD Eosinophils (Bld) [#/Vol] 0.34 10*3/uL Normal 0.00-0.4 4 [facility] Comment on above: Performed By: #### P T, RAFFAELE, MG, CBC, CPBILC #### [address] [address] Sample Case Porter: Pete Ward MD Eosinophils/100 WBC (Bld) 4 % Normal 1-4 [facility] Comment on above: Performed By: #### P T, RAFFAELE, MG, CBC, CPBILC #### [address] [address] Sample Case Porter: Pete Ward MD Immature granulocytes/100 WBC (Bld) 1 % High 0 [facility] Comment on above: Performed By: #### P T, RAFFAELE, MG, CBC, CPBILC #### [address] [address] Sample Case Porter: Pete Ward MD Lymphocytes (Bld) [#/Vol] 0.92 10*3/uL Low 1.10-3.7 0 [facility] Comment on above: Performed By: #### P T, RAFFAELE, MG, CBC, CPBILC #### [address] [address] Sample Case Porter: Pete Ward MD Lymphocytes/100 WBC (Bld) 11 % Low 24-43 [facility] Comment on above: Performed By: #### P T, RAFFAELE, MG, CBC, CPBILC #### [address] [address] Sample Case Porter: Pete Ward MD Monocytes (Bld) [#/Vol] 0.59 10*3/uL Normal 0.10-1.20 [facility] Comment on above: Performed By: #### P T, RAFFAELE, MG, CBC, CPBILC #### [address] [address] Sample Case Porter: Pete Ward MD Monocytes/100 WBC (Bld) 7 % Normal 3-12 M [facility] Comment on above: Performed By: #### P T, RAFFAELE, MG, CBC, CPBILC #### [facility] [address] [place] [address] Sample Case Porter: Pete Ward MD Morphology Luis (Bld) [Interp] ANISOCYTOSIS PRESENT Normal [facility] Comment on above: Result Comment: HYPO CHROMIA PRESENT Performed By: #### P T, RAFFAELE, MG, CBC, CPBILC #### [address] [address] Sample Case Porter: Pete Ward MD Neutrophil (Seg) 76 % High 36-65 [facility] Comment on above: Performed By: #### P T, RAFFAELE, MG, CBC, CPBILC #### [address] [address] Sample Case Porter: Pete Ward MD Erythrocyte distribution width (RBC) [Ratio] 24.9 % High 11.8-14.4 [facility] Comment on above: Performed By: #### P T, RAFFAELE, MG, CBC, CPBILC #### [facility] [address] [place] [address] Sample Case Porter: Pete Ward MD Hematocrit (Bld) [Volume fraction] 22.1 % Low 40.7-50.3 [facility] Comment on above: Performed By: #### P T, RAFFAELE, MG, CBC, CPBILC #### [facility] [address] [place] [address] Sample Case Porter: Pete Ward MD Hemoglobin (Bld) [Mass/Vol] 6.0 g/dL Critically low 13.0-17.0 [facility] Comment on above: Performed By: #### P T, RAFFAELE, MG, CBC, CPBILC #### [facility] [address] [place] [address] Sample Case Porter: Pete Ward MD MCH (RBC) [Entitic mass] 22.8 pg Low 25.2-33.5 [facility] Comment on above: Performed By: #### P T, RAFFAELE, MG, CBC, CPBILC #### [address] [address] Sample Case Porter: Pete Ward MD MCHC (RBC) [Mass/Vol] 27.1 g/dL Low 28.4-34.8 [facility] Comment on above: Performed By: #### P T, RAFFAELE, MG, CBC, CPBILC #### [place] [address] Sample Case Porter: Pete Ward MD MCV (RBC) [Entitic vol] 84.0 fL Normal 82.6-102.9 M [facility] Comment on above: Performed By: #### P T, RAFFAELE, MG, CBC, CPBILC #### [place] [address] Sample Case Porter: Pete Ward MD NRBC Automated 0.0 per 100 WBC Normal 0.0 [facility] Comment on above: Performed By: #### P T, RAFFAELE, MG, CBC, CPBILC #### [place] [address] Sample Case Porter: Pete Ward MD Platelet mean volume (Bld) [Entitic vol] 11.9 fL Normal 8.1-13.5 [facility] Comment on above: Performed By: #### P T, RAFFAELE, MG, CBC, CPBILC #### [place] [address] Sample Case Porter: Pete Ward MD Platelets (Bld) [#/Vol] 331 10*3/uL Normal 138-453 [facility] Comment on above: Performed By: #### P T, RAFFAELE, MG, CBC, CPBILC #### [address] [address] Sample Case Porter: Pete Ward MD RBC (Bld) [#/Vol] 2.63 10*6/uL Low 4.21-5.77 [facility] Comment on above: Performed By: #### P T, RAFFAELE, MG, CBC, CPBILC #### [address] [address] Sample Case Porter: Pete Ward MD WBC (Bld) [#/Vol] 8.4 10*3/uL Normal 3.5-11.3 [facility] Comment on above: Performed By: #### P T, RAFFAELE, MG, CBC, CPBILC #### [address] [address] Sample Case Porter: Pete Ward MD Extra Yellow Tubeon 04-13-20 23 Extra Yellow Tube Normal [facility] Comment on above: Performed By: #### P T, RAFFAELE, MG, CBC, CPBILC #### [address] [address] Sample Case Porter: Pete Ward MD Hgb/Hcton 04-13-2023 Hematocrit (Bld) [Volume fraction] 24.3 % Low 40.7-50.3 [facility] Comment on above: Performed By: #### P T, RAFFAELE, MG, CBC, CPBILC #### [address] [address] Sample Case Porter: Pete Ward MD Hemoglobin (Bld) [Mass/Vol] 7.2 g/dL Low 13.0-17.0 [facility] Comment on above: Performed By: #### P T, RAFFAELE, MG, CBC, CPBILC #### [facility] [address] [place] [address] Sample Case Porter: Pete Ward MD Hematocrit (Bld) [Volume fraction] 21.8 % Low 40.7-50.3 [facility] Comment on above: Performed By: #### C MARISEL, BMP #### [facility] [address] [place] [address] Sample Case Porter: Pete Ward MD Hemoglobin (Bld) [Mass/Vol] 6.2 g/dL Critically low 13.0-17.0 [facility] Comment on above: Performed By: #### C MARISEL BMP #### [address] [address] Sample Case Porter: Pete Ward MD Basic Metab w/rfx MG 04-11 Anion gap [Moles/Vol] 6 mmol/L Low 9-17 [facility] Comment on above: Performed By: #### P T, RAFFAELE, MG, CBC, CPBILC #### [address] [address] Sample Case Porter: Pete Ward MD Calcium [Mass/Vol] 9.3 mg/dL Normal 8.6-10.4 [facility] Comment on above: Performed By: #### P T, RAFFAELE, MG, CBC, CPBILC #### [address] [address] Sample Case Porter: Pete Ward MD Chloride [Moles/Vol] 98 mmol/L Normal 98-107 [facility] Comment on above: Performed By: #### P T, RAFFAELE, MG, CBC, CPBILC #### [address] [address] Sample Case Porter: Pete Ward MD CO2 [Moles/Vol] 33 mmol/L High 20-31 [facility] Comment on above: Performed By: #### P T, RAFFAELE, MG, CBC, CPBILC #### [facility] [address] [place] [address] Sample Case Porter: Pete Ward MD Creatinine [Mass/Vol] 0.5 mg/dL Low 0.7-1.2 [facility] Comment on above: Performed By: #### P T, RAFFAELE, MG, CBC, CPBILC #### [address] [address] Sample Case Porter: Pete Ward MD GFR/1.73 sq M.predicted among non-blacks MDRD (S/P/Bld) [Vol rate/Area] mL/min/{1.73_m2} Normal >60 [facility] Comment on above: Result Comment: These results [...] P T, RAFFAELE, MG, CBC, CPBILC #### [facility] [address] [place] [address] Sample Case Porter: Pete Ward MD Glucose [Mass/Vol] 91 mg/dL Normal 70-99 [facility] Comment on above: Performed By: #### P T, RAFFAELE, MG, CBC, CPBILC #### [facility] [address] [place] [address] Sample Case Porter: Pete Ward MD Potassium [Moles/Vol] 4.6 mmol/L Normal 3.7-5.3 [facility] Comment on above: Performed By: #### P T, RAFFAELE, MG, CBC, CPBILC #### [facility] [address] [place] [address] Sample Case Porter: Pete Ward MD Sodium [Moles/Vol] 137 mmol/L Normal 135-144 [facility] Comment on above: Performed By: #### P T, RAFFAELE, MG, CBC, CPBILC #### [address] [address] Sample Case Porter: Pete Ward MD Urea nitrogen [Mass/Vol] 11 mg/dL Normal 8-23 [facility] Comment on above: Performed By: #### P T, RAFFAELE, MG, CBC, CPBILC #### [address] [address] Sample Case Porter: Pete Ward MD CBC with Diffon 04-11-2023 Abs. Basophil 0.00 k/uL Normal 0.0-0.2 [facility] Comment on above: Performed By: #### P T, RAFFAELE, MG, CBC, CPBILC #### [address] [address] Sample Case Porter: Pete Ward MD Abs.Imm.Granulocyte 0.00 k/uL Normal 0.00-0.30 [facility] Comment on above: Performed By: #### P T, RAFFAELE, MG, CBC, CPBILC #### [address] [address] Sample Case Porter: Pete Ward MD Abs.Neutrophil (Seg) 5.10 k/uL Normal 1.8-7.7 [facility] Comment on above: Performed By: #### P T, RAFFAELE, MG, CBC, CPBILC #### [address] [address] Sample Case Porter: Pete Ward MD Basophils/100 WBC (Bld) 0 % Normal 0-2 M [facility] Comment on above: Performed By: #### P T, RAFFAELE, MG, CBC, CPBILC #### [address] [address] Sample Case Porter: Pete Ward MD Eosinophils (Bld) [#/Vol] 0.38 10*3/uL Normal 0.0-0.4 [facility] Comment on above: Performed By: #### P T, RAFFAELE, MG, CBC, CPBILC #### [address] [address] Sample Case Porter: Pete Ward MD Eosinophils/100 WBC (Bld) 6 % High 1-4 [facility] Comment on above: Performed By: #### P T, RAFFAELE, MG, CBC, CPBILC #### [address] [address] Sample Case Porter: Pete Ward MD Immature granulocytes/100 WBC (Bld) 0 % Normal 0 [facility] Comment on above: Performed By: #### P T, RAFFAELE, MG, CBC, CPBILC #### [place] [address] Sample Case Porter: Pete Ward MD Lymphocytes (Bld) [#/Vol] 0.63 10*3/uL Low 1.0-4.8 [facility] Comment on above: Performed By: #### P T, RAFFAELE, MG, CBC, CPBILC #### [address] [address] Sample Case Porter: Pete Ward MD Lymphocytes/100 WBC (Bld) 10 % Low 24-44 [facility] Comment on above: Performed By: #### P T, RAFFAELE, MG, CBC, CPBILC #### [place] [address] Sample Case Porter: Pete Ward MD Monocytes (Bld) [#/Vol] 0.19 10*3/uL Normal 0.1-0.8 [facility] Comment on above: Performed By: #### P T, RAFFAELE, MG, CBC, CPBILC #### [address] [address] Sample Case Porter: Pete Ward MD Monocytes/100 WBC (Bld) 3 % Normal 1-7 M [facility] Comment on above: Performed By: #### P T, RAFFAELE, MG, CBC, CPBILC #### [address] [address] Sample Case Porter: Pete Ward MD Morphology Luis (Bld) [Interp] ANISOCYTOSIS PRESENT Normal [facility] Comment on above: Result Comment: HYPO CHROMIA PRESENT Performed By: #### P T, RAFFAELE, MG, CBC, CPBILC #### [address] [address] Sample Case Porter: Pete Ward MD Neutrophil (Seg) 81 % High 36-66 [facility] Comment on above: Performed By: #### P T, RAFFAELE, MG, CBC, CPBILC #### [address] [address] Sample Case Porter: Pete Ward MD Erythrocyte distribution width (RBC) [Ratio] 25.2 % High 11.8-14.4 [facility] Comment on above: Performed By: #### P T, RAFFAELE, MG, CBC, CPBILC #### [address] [address] Sample Case Porter: Pete Ward MD Hematocrit (Bld) [Volume fraction] 26.0 % Low 40.7-50.3 [facility] Comment on above: Performed By: #### P T, RAFFAELE, MG, CBC, CPBILC #### [address] [address] Sample Case Porter: Pete Ward MD Hemoglobin (Bld) [Mass/Vol] 7.1 g/dL Low 13.0-17.0 [facility] Comment on above: Performed By: #### P T, RAFFAELE, MG, CBC, CPBILC #### [address] [address] Sample Case Porter: Pete Ward MD MCH (RBC) [Entitic mass] 23.1 pg Low 25.2-33.5 [facility] Comment on above: Performed By: #### P T, RAFFAELE, MG, CBC, CPBILC #### [place] [address] Sample Case Porter: Pete Ward MD MCHC (RBC) [Mass/Vol] 27.3 g/dL Low 28.4-34.8 [facility] Comment on above: Performed By: #### P T, RAFFAELE, MG, CBC, CPBILC #### [place] [address] Sample Case Porter: Pete Ward MD MCV (RBC) [Entitic vol] 84.7 fL Normal 82.6-102.9 M [facility] Comment on above: Performed By: #### P T, RAFFAELE, MG, CBC, CPBILC #### [place] [address] Sample Case Porter: Pete Ward MD NRBC Automated 0.0 per 100 WBC Normal 0.0 [facility] Comment on above: Performed By: #### P T, RAFFAELE, MG, CBC, CPBILC #### [place] [address] Sample Case Porter: Pete Ward MD Platelet mean volume (Bld) [Entitic vol] 12.4 fL Normal 8.1-13.5 [facility] Comment on above: Performed By: #### P T, RAFFAELE, MG, CBC, CPBILC #### [place] [address] Sample Case Porter: Pete Ward MD Platelets (Bld) [#/Vol] 256 10*3/uL Normal 138-453 [facility] Comment on above: Performed By: #### P TRAFFAELE MG, CBC, CPBILC #### [address] [address] Sample Case Porter: Pete Ward MD RBC (Bld) [#/Vol] 3.07 10*6/uL Low 4.21-5.77 [facility] Comment on above: Performed By: #### P T RAFFAELE, MG, CBC, CPBILC #### [address] [address] Sample Case Porter: Pete Ward MD WBC (Bld) [#/Vol] 6.3 10*3/uL Normal 3.5-11.3 [facility] Comment on above: Performed By: #### P TRAFFAELE MG, CBC, CPBILC #### [address] [address] Sample Case Porter: Pete Ward MD CBC with Diffon 04-09-2023 Abs. Basophil 0.06 k/uL Normal 0.00-0.20 [facility] Comment on above: Performed By: #### C DP, CMPX #### [address] [address] Sample Case Porter: Pete Ward MD Abs.Imm.Granulocyte 0.00 k/uL Normal 0.00-0.30 [facility] Comment on above: Performed By: #### C DP, CMPX #### [address] [address] Sample Case Porter: Pete Ward MD Abs.Neutrophil (Seg) 4.81 k/uL Normal 1.50-8.10 [facility] Comment on above: Performed By: #### C DP, CMPX #### [address] [address] Sample Case Porter: Pete Ward MD Basophils/100 WBC (Bld) 1 % Normal 0-2 M [facility] Comment on above: Performed By: #### C DP, CMPX #### [address] [address] Sample Case Porter: Pete Ward MD Eosinophils (Bld) [#/Vol] 0.19 10*3/uL Normal 0.00-0.4 4 [facility] Comment on above: Performed By: #### C DP, CMPX #### [address] [address] Sample Case Porter: Pete Ward MD Eosinophils/100 WBC (Bld) 3 % Normal 1-4 [facility] Comment on above: Performed By: #### C DP, CMPX #### [address] [address] Sample Case Porter: Pete Ward MD Immature granulocytes/100 WBC (Bld) 0 % Normal 0 [facility] Comment on above: Performed By: #### C DP, CMPX #### [address] [address] Sample Case Porter: Pete Ward MD Lymphocytes (Bld) [#/Vol] 0.83 10*3/uL Low 1.10-3.7 0 [facility] Comment on above: Performed By: #### C DP, CMPX #### [address] [address] Sample Case Porter: Pete Ward MD Lymphocytes/100 WBC (Bld) 13 % Low 24-43 [facility] Comment on above: Performed By: #### C DP, CMPX #### [address] [address] Sample Case Porter: Pete Ward MD Monocytes (Bld) [#/Vol] 0.51 10*3/uL Normal 0.10-1.20 [facility] Comment on above: Performed By: #### C DP, CMPX #### [address] [address] Sample Case Porter: Pete Ward MD Monocytes/100 WBC (Bld) 8 % Normal 3-12 M [facility] Comment on above: Performed By: #### C DP, CMPX #### [address] [address] Sample Case Porter: Pete Ward MD Morphology Luis (Bld) [Interp] ANISOCYTOSIS PRESENT Normal [facility] Comment on above: Result Comment: HYPO CHROMIA PRESENT Performed By: #### C DP, CMPX #### [address] [address] Sample Case Porter: Pete Ward MD Neutrophil (Seg) 75 % High 36-65 [facility] Comment on above: Performed By: #### C DP, CMPX #### [address] [address] Sample Case Porter: Pete Ward MD Erythrocyte distribution width (RBC) [Ratio] 24.7 % High 11.8-14.4 [facility] Comment on above: Performed By: #### C DP, CMPX #### [place] [address] Sample Case Porter: Pete Ward MD Hematocrit (Bld) [Volume fraction] 26.9 % Low 40.7-50.3 [facility] Comment on above: Performed By: #### C DP, CMPX #### [address] [address] Sample Case Porter: Pete Ward MD Hemoglobin (Bld) [Mass/Vol] 7.2 g/dL Low 13.0-17.0 [facility] Comment on above: Performed By: #### C DP, CMPX #### [address] [address] Sample Case Porter: Pete Ward MD MCH (RBC) [Entitic mass] 22.7 pg Low 25.2-33.5 [facility] Comment on above: Performed By: #### C DP, CMPX #### [address] [address] Sample Case Porter: Pete Ward MD MCHC (RBC) [Mass/Vol] 26.8 g/dL Low 28.4-34.8 [facility] Comment on above: Performed By: #### C DP, CMPX #### [address] [address] Sample Case Porter: Pete Ward MD MCV (RBC) [Entitic vol] 84.9 fL Normal 82.6-102.9 M [facility] Comment on above: Performed By: #### C DP, CMPX #### [address] [address] Sample Case Porter: Pete Ward MD NRBC Automated 0.0 per 100 WBC Normal 0.0 [facility] Comment on above: Performed By: #### C DP, CMPX #### [address] [address] Sample Case Porter: Pete Ward MD Platelet mean volume (Bld) [Entitic vol] 11.4 fL Normal 8.1-13.5 [facility] Comment on above: Performed By: #### C DP, CMPX #### [address] [address] Sample Case Porter: Pete Ward MD Platelets (Bld) [#/Vol] 230 10*3/uL Normal 138-453 [facility] Comment on above: Performed By: #### C DP, CMPX #### [facility] [address] [place] [address] Sample Case Porter: Pete Ward MD RBC (Bld) [#/Vol] 3.17 10*6/uL Low 4.21-5.77 [facility] Comment on above: Performed By: #### C DP, CMPX #### [facility] [address] [place] [address] Sample Case Porter: Pete Ward MD WBC (Bld) [#/Vol] 6.4 10*3/uL Normal 3.5-11.3 [facility] Comment on above: Performed By: #### C DP, CMPX #### [facility] [address] [place] [address] Sample Case Porter: Pete Ward MD Comp Metabolic Pr/rfx MGon 1 06-09-2022 Albumin [Mass/Vol] 2.5 g/dL Low 3.5-5.2 [facility] Comment on above: Performed By: #### C DP, CMPX #### [facility] [address] [place] [address] Sample Case Porter: Pete Ward MD Albumin/Glob Ratio 0.7 Low 1.0-2.5 [facility] Comment on above: Performed By: #### C DP, CMPX #### [facility] [address] [place] [address] Sample Case Porter: Pete Ward MD Alkaline Phos 82 U/L Normal 40-129 [facility] Comment on above: Performed By: #### C DP, CMPX #### [facility] [address] [place] [address] Sample Case Porter: Pete Ward MD ALT [Catalytic activity/Vol] 12 U/L Normal 5-41 [facility] Comment on above: Performed By: #### C DP, CMPX #### [facility] [address] [place] [address] Sample Case Porter: Pete Ward MD Anion gap [Moles/Vol] 6 mmol/L Low 9-17 [facility] Comment on above: Performed By: #### C DP, CMPX #### [facility] [address] [place] [address] Sample Case Porter: Pete Ward MD AST [Catalytic activity/Vol] 23 U/L Normal <40 [facility] Comment on above: Performed By: #### C DP, CMPX #### [facility] [address] [place] [address] Sample Case Porter: Pete Ward MD Bilirubin [Mass/Vol] 0.3 mg/dL Normal 0.3-1.2 [facility] Comment on above: Performed By: #### C DP, CMPX #### [address] [address] Sample Case Porter: Pete Ward MD Calcium [Mass/Vol] 9.0 mg/dL Normal 8.6-10.4 [facility] Comment on above: Performed By: #### C DP, CMPX #### [address] [address] Sample Case Porter: Pete Ward MD Chloride [Moles/Vol] 98 mmol/L Normal 98-107 [facility] Comment on above: Performed By: #### C DP, CMPX #### [address] [address] Sample Case Porter: Pete Ward MD CO2 [Moles/Vol] 34 mmol/L High 20-31 [facility] Comment on above: Performed By: #### C DP, CMPX #### [facility] [address] [place] [address] Sample Case Porter: Pete Ward MD Creatinine [Mass/Vol] 0.5 mg/dL Low 0.7-1.2 [facility] Comment on above: Performed By: #### C DP, CMPX #### [facility] [address] [place] [address] Sample Case Porter: Pete Ward MD GFR/1.73 sq M.predicted among non-blacks MDRD (S/P/Bld) [Vol rate/Area] mL/min/{1.73_m2} Normal >60 [facility] Comment on above: Result Comment: These results [...] Performed By: #### C DP, CMPX #### [facility] [address] [place] [address] Sample Case Porter: Pete Ward MD Glucose [Mass/Vol] 114 mg/dL High 70-99 [facility] Comment on above: Performed By: #### C DP, CMPX #### [facility] [address] [place] [address] Sample Case Porter: Pete Ward MD Potassium [Moles/Vol] 3.9 mmol/L Normal 3.7-5.3 [facility] Comment on above: Performed By: #### C DP, CMPX #### [facility] [address] [place] [address] Sample Case Porter: Pete Ward MD Protein [Mass/Vol] 5.9 g/dL Low 6.4-8.3 [facility] Comment on above: Performed By: #### C DP, CMPX #### [facility] [address] [place] [address] Sample Case Porter: Pete Ward MD Sodium [Moles/Vol] 138 mmol/L Normal 135-144 [facility] Comment on above: Performed By: #### C DP, CMPX #### [address] [phone] Sample Case Porter: Pete Ward MD Urea nitrogen [Mass/Vol] 11 mg/dL Normal 8-23 [facility] Comment on above: Performed By: #### C DP, CMPX #### [address] [phone] Sample Case Porter: Pete Ward MD FL MODIFIED BARIUM SWALLOW W VIDEOon 04-09-2023 FL MODIFIED BARIUM SWALLOW W VIDEO EXAMINATION: MODIFIED BARIUM SWALLOW WAS PERFORMED IN CONJUNCTION WITH SPEECH PATHOLOGY SERVICES TECHNIQUE: Under fluoroscopic evaluation cineradiography/video radiography recordings were performed in conjunction with the speech-language pathologist (INS[employer]). Various liquid, solid and/or semi-solid barium preparations were used to assess swallowing function. FLUOROSCOPY DOSE AND TYPE: Radiation Exposure Index: DAP [id number], COMPARISON: None HISTORY: ORDERING SYSTEM PROVIDED HISTORY: [...] Edited Result - FINAL Normal [facility] Basic Metabolic Profon 04-08 Anion gap [Moles/Vol] 5 mmol/L Low 9-17 [facility] Comment on above: Performed By: #### P T, RAFFAELE, MG, CBC, CPBILC #### [address] [id number] Sample Case Porter: Pete Ward MD Calcium [Mass/Vol] 8.8 mg/dL Normal 8.6-10.4 [facility] Comment on above: Performed By: #### P T, RAFFAELE, MG, CBC, CPBILC #### [facility] [address] [place] [address] Sample Case Porter: Pete Ward MD Chloride [Moles/Vol] 100 mmol/L Normal 98-107 [facility] Comment on above: Performed By: #### P T, RAFFAELE, MG, CBC, CPBILC #### [facility] [address] [place] [address] Sample Case Porter: Pete Ward MD CO2 [Moles/Vol] 33 mmol/L High 20-31 [facility] Comment on above: Performed By: #### P T, RAFFAELE, MG, CBC, CPBILC #### [facility] [address] [place] [address] Sample Case Porter: Pete Ward MD Creatinine [Mass/Vol] 0.4 mg/dL Low 0.7-1.2 [facility] Comment on above: Performed By: #### P T, RAFFAELE, MG, CBC, CPBILC #### [facility] [address] [place] [address] Sample Case Porter: Pete Ward MD GFR/1.73 sq M.predicted among non-blacks MDRD (S/P/Bld) [Vol rate/Area] mL/min/{1.73_m2} Normal >60 [facility] Comment on above: Result Comment: These results [...] P T, RAFFAELE, MG, CBC, CPBILC #### [facility] [address] [place] [address] Sample Case Porter: Pete Ward MD Glucose [Mass/Vol] 131 mg/dL High 70-99 [facility] Comment on above: Performed By: #### P T, RAFFAELE, MG, CBC, CPBILC #### [address] [address] Sample Case Porter: Pete Ward MD Potassium [Moles/Vol] 3.6 mmol/L Low 3.7-5.3 [facility] Comment on above: Performed By: #### P T, RAFFAELE, MG, CBC, CPBILC #### [address] [address] Sample Case Porter: Pete Ward MD Sodium [Moles/Vol] 138 mmol/L Normal 135-144 [facility] Comment on above: Performed By: #### P T, RAFFAELE, MG, CBC, CPBILC #### [address] [address] Sample Case Porter: Pete Ward MD Urea nitrogen [Mass/Vol] 10 mg/dL Normal 8-23 [facility] Comment on above: Performed By: #### P T, RAFFAELE, MG, CBC, CPBILC #### [address] [address] Sample Case Porter: Pete Ward MD CBCon 04-08-2023 Platelet, Fluoresc. 226 k/uL Normal 138-453 [facility] Comment on above: Performed By: #### P T, RAFFAELE, MG, CBC, CPBILC #### [address] [address] Sample Case Porter: Pete Ward MD PLT, Immature Fract. 9.2 % Normal 1.1-10.3 [facility] Comment on above: Performed By: #### P T, RAFFAELE, MG, CBC, CPBILC #### [facility] [address] [place] [address] Sample Case Porter: Pete Ward MD Erythrocyte distribution width (RBC) [Ratio] 24.4 % High 11.8-14.4 [facility] Comment on above: Performed By: #### P T, RAFFAELE, MG, CBC, CPBILC #### [address] [address] Sample Case Porter: Pete Ward MD Hematocrit (Bld) [Volume fraction] 26.5 % Low 40.7-50.3 [facility] Comment on above: Performed By: #### P T, RAFFAELE, MG, CBC, CPBILC #### [place] [address] Sample Case Porter: Pete Ward MD Hemoglobin (Bld) [Mass/Vol] 7.2 g/dL Low 13.0-17.0 [facility] Comment on above: Performed By: #### P T, RAFFAELE, MG, CBC, CPBILC #### [address] [address] Sample Case Porter: Pete Ward MD MCH (RBC) [Entitic mass] 23.0 pg Low 25.2-33.5 [facility] Comment on above: Performed By: #### P T, RAFFAELE, MG, CBC, CPBILC #### [address] [address] Sample Case Porter: Pete Ward MD MCHC (RBC) [Mass/Vol] 27.2 g/dL Low 28.4-34.8 [facility] Comment on above: Performed By: #### P T, RAFFAELE, MG, CBC, CPBILC #### [address] [address] Sample Case Porter: Pete Ward MD MCV (RBC) [Entitic vol] 84.7 fL Normal 82.6-102.9 M [facility] Comment on above: Performed By: #### P T, RAFFAELE, MG, CBC, CPBILC #### [address] [address] Sample Case Porter: Pete Ward MD NRBC Automated 0.0 per 100 WBC Normal 0.0 [facility] Comment on above: Performed By: #### P T, RAFFAELE, MG, CBC, CPBILC #### [address] [address] Sample Case Porter: Pete Ward MD Platelet Count See Reflexed IPF Result Normal 138-453 [facility] Comment on above: Performed By: #### P T, RAFFAELE, MG, CBC, CPBILC #### [address] [address] Sample Case Porter: Pete Ward MD RBC (Bld) [#/Vol] 3.13 10*6/uL Low 4.21-5.77 [facility] Comment on above: Performed By: #### P T, RAFFAELE, MG, CBC, CPBILC #### [address] [address] Sample Case Porter: Pete Ward MD WBC (Bld) [#/Vol] 5.8 10*3/uL Normal 3.5-11.3 [facility] Comment on above: Performed By: #### P T, RAFFAELE, MG, CBC, CPBILC #### [address] [address] Sample Case Porter: Pete Ward MD Liver Profileon 04-08-2023 Albumin [Mass/Vol] 2.3 g/dL Low 3.5-5.2 [facility] Comment on above: Performed By: #### P T, RAFFAELE, MG, CBC, CPBILC #### [address] [address] Sample Case Porter: Pete Ward MD Albumin/Glob Ratio 0.7 Low 1.0-2.5 [facility] Comment on above: Performed By: #### P T, RAFFAELE, MG, CBC, CPBILC #### [address] [address] Sample Case Porter: Pete Ward MD Alkaline Phos 75 U/L Normal 40-129 [facility] Comment on above: Performed By: #### P T, RAFFAELE, MG, CBC, CPBILC #### [facility] [address] [place] [address] Sample Case Porter: Pete Ward MD ALT [Catalytic activity/Vol] 10 U/L Normal 5-41 [facility] Comment on above: Performed By: #### P T, RAFFAELE, MG, CBC, CPBILC #### [address] [address] Sample Case Porter: Pete Ward MD AST [Catalytic activity/Vol] 22 U/L Normal <40 [facility] Comment on above: Performed By: #### P T, RAFFAELE, MG, CBC, CPBILC #### [address] [address] Sample Case Porter: Pete Ward MD Bilirubin [Mass/Vol] 0.2 mg/dL Low 0.3-1.2 [facility] Comment on above: Performed By: #### P T, RAFFAELE, MG, CBC, CPBILC #### [facility] [address] [place] [address] Sample Case Porter: Pete Ward MD Bilirubin, Indirect 0.1 mg/dL Normal 0.0-1.0 [facility] Comment on above: Performed By: #### P T, RAFFAELE, MG, CBC, CPBILC #### [facility] [address] [place] [address] Sample Case Porter: Pete Ward MD Bilirubin.indirect [Mass/Vol] 0.1 mg/dL Normal <0.3 [facility] Comment on above: Performed By: #### P TCASHON MG, CBC, CPBILC #### [facility] [place] [address] Sample Case Porter: Pete Ward MD Protein [Mass/Vol] 5.5 g/dL Low 6.4-8.3 [facility] Comment on above: Performed By: #### P T, RAFFAELE, MG, CBC, CPBILC #### [address] [address] Sample Case Porter: Pete Ward MD XR CHEST PORTABLEon 04-08-20 [...] MD 04/08/23 Final result Normal [facility] Basic Metabolic Profon 04-07 Anion gap [Moles/Vol] 9 mmol/L Normal 9-17 [facility] Comment on above: Performed By: #### C BC, BMP #### [facility] [address] [place] [address] Sample Case Porter: Pete Ward MD Calcium [Mass/Vol] 8.8 mg/dL Normal 8.6-10.4 [facility] Comment on above: Performed By: #### C BC, BMP #### [facility] [address] [place] [address] Sample Case Porter: Pete Ward MD Chloride [Moles/Vol] 97 mmol/L Low 98-107 [facility] Comment on above: Performed By: #### C BC, BMP #### [facility] [address] [place] [address] Sample Case Porter: Pete Ward MD CO2 [Moles/Vol] 30 mmol/L Normal 20-31 [facility] Comment on above: Performed By: #### C BC, BMP #### [facility] [address] [place] [address] Sample Case Porter: Pete Ward MD Creatinine [Mass/Vol] 0.5 mg/dL Low 0.7-1.2 [facility] Comment on above: Performed By: #### C BC, BMP #### [address] [address] Sample Case Porter: Pete Ward MD GFR/1.73 sq M.predicted among non-blacks MDRD (S/P/Bld) [Vol rate/Area] mL/min/{1.73_m2} Normal >60 [facility] Comment on above: Result Comment: These results [...] Performed By: #### C BC, BMP #### [address] [address] Sample Case Porter: Pete Ward MD Glucose [Mass/Vol] 78 mg/dL Normal 70-99 [facility] Comment on above: Performed By: #### C BC, BMP #### [address] [address] Sample Case Porter: Pete Ward MD Potassium [Moles/Vol] 3.8 mmol/L Normal 3.7-5.3 [facility] Comment on above: Performed By: #### C BC, BMP #### [address] [address] Sample Case Porter: Pete Ward MD Sodium [Moles/Vol] 136 mmol/L Normal 135-144 [facility] Comment on above: Performed By: #### C BC, BMP #### [address] [address] Sample Case Porter: Pete Ward MD Urea nitrogen [Mass/Vol] 9 mg/dL Normal 8-23 [facility] Comment on above: Performed By: #### C BC, BMP #### [address] [address] Sample Case Porter: Pete Ward MD CBCon 04-07-2023 Platelet, Fluoresc. 247 k/uL Normal 138-453 [facility] Comment on above: Performed By: #### C BC, BMP #### [address] [address] Sample Case Porter: Pete Ward MD PLT, Immature Fract. 10.3 % Normal 1.1-10.3 [facility] Comment on above: Performed By: #### C BC, BMP #### [address] [address] Sample Case Porter: Pete Ward MD Erythrocyte distribution width (RBC) [Ratio] 24.1 % High 11.8-14.4 [facility] Comment on above: Performed By: #### C BC, BMP #### [facility] [address] [place] [address] Sample Case Porter: Pete Ward MD Hematocrit (Bld) [Volume fraction] 27.4 % Low 40.7-50.3 [facility] Comment on above: Performed By: #### C BC, BMP #### [address] [address] Sample Case Porter: Pete Ward MD Hemoglobin (Bld) [Mass/Vol] 7.3 g/dL Low 13.0-17.0 [facility] Comment on above: Performed By: #### C BC, BMP #### [address] [address] Sample Case Porter: Pete Ward MD MCH (RBC) [Entitic mass] 22.4 pg Low 25.2-33.5 [facility] Comment on above: Performed By: #### C BC, BMP #### [address] [address] Sample Case Porter: Pete Ward MD MCHC (RBC) [Mass/Vol] 26.6 g/dL Low 28.4-34.8 [facility] Comment on above: Performed By: #### C BC, BMP #### [address] [address] Sample Case Porter: Pete Ward MD MCV (RBC) [Entitic vol] 84.0 fL Normal 82.6-102.9 M [facility] Comment on above: Performed By: #### C BC, BMP #### [address] [address] Sample Case Porter: Pete Ward MD NRBC Automated 0.0 per 100 WBC Normal 0.0 [facility] Comment on above: Performed By: #### C BC, BMP #### [address] [address] Sample Case Porter: Pete Ward MD Platelet Count See Reflexed IPF Result Normal 138-453 [facility] Comment on above: Performed By: #### C BC, BMP #### [address] [address] Sample Case Porter: Pete Ward MD RBC (Bld) [#/Vol] 3.26 10*6/uL Low 4.21-5.77 [facility] Comment on above: Performed By: #### C BC, BMP #### [address] [address] [address] Sample Case Porter: Pete Ward MD WBC (Bld) [#/Vol] 7.1 10*3/uL Normal 3.5-11.3 [facility] Comment on above: Performed By: #### C BC, BMP #### [address] [address] Sample Case Porter: Pete Ward MD Basic Metabolic Profon 04-06 Anion gap [Moles/Vol] 11 mmol/L Normal 9-17 [facility] Comment on above: Performed By: #### C DP, CMPX #### [address] [address] Sample Case Porter: Pete Ward MD Calcium [Mass/Vol] 9.4 mg/dL Normal 8.6-10.4 [facility] Comment on above: Performed By: #### C DP, CMPX #### [address] [address] Sample Case Porter: Pete Ward MD Chloride [Moles/Vol] 93 mmol/L Low 98-107 [facility] Comment on above: Performed By: #### C DP, CMPX #### [facility] [address] [place] [address] Sample Case Porter: Pete Ward MD CO2 [Moles/Vol] 31 mmol/L Normal 20-31 [facility] Comment on above: Performed By: #### C DP, CMPX #### [facility] [address] [place] [address] Sample Case Porter: Pete Ward MD Creatinine [Mass/Vol] 0.6 mg/dL Low 0.7-1.2 [facility] Comment on above: Performed By: #### C DP, CMPX #### [facility] [address] [place] [address] Sample Case Porter: Pete Ward MD GFR/1.73 sq M.predicted among non-blacks MDRD (S/P/Bld) [Vol rate/Area] mL/min/{1.73_m2} Normal >60 [facility] Comment on above: Result Comment: These results [...] Performed By: #### C DP, CMPX #### [facility] [address] [place] [address] Sample Case Porter: Pete Ward MD Glucose [Mass/Vol] 71 mg/dL Normal 70-99 [facility] Comment on above: Performed By: #### C DP, CMPX #### [facility] [address] [place] [address] Sample Case Porter: Pete Ward MD Potassium [Moles/Vol] 3.6 mmol/L Low 3.7-5.3 [facility] Comment on above: Performed By: #### C DP, CMPX #### [facility] [address] [place] [address] Sample Case Porter: Pete Ward MD Sodium [Moles/Vol] 135 mmol/L Normal 135-144 [facility] Comment on above: Performed By: #### C DP, CMPX #### [facility] [address] [place] [address] Sample Case Porter: Pete Ward MD Urea nitrogen [Mass/Vol] 10 mg/dL Normal 8-23 [facility] Comment on above: Performed By: #### C DP, CMPX #### [facility] [address] [place] [address] Sample Case Porter: Pete Ward MD C-Reactive Proteinon CRP [Mass/Vol] 167.6 mg/L High 0.0-5.0 [facility] Comment on above: Performed By: #### C DP, CMPX #### [address] [address] Sample Case Porter: Pete Ward MD CBCon 04-06-2023 Erythrocyte distribution width (RBC) [Ratio] 24.2 % High 11.8-14.4 [facility] Comment on above: Performed By: #### C DP, CMPX #### [address] [address] Sample Case Porter: Pete Ward MD Hematocrit (Bld) [Volume fraction] 29.8 % Low 40.7-50.3 [facility] Comment on above: Performed By: #### C DP, CMPX #### [facility] [address] [place] [address] Sample Case Porter: Pete Ward MD Hemoglobin (Bld) [Mass/Vol] 8.0 g/dL Low 13.0-17.0 [facility] Comment on above: Performed By: #### C DP, CMPX #### [address] [address] Sample Case Porter: Pete Ward MD MCH (RBC) [Entitic mass] 22.3 pg Low 25.2-33.5 [facility] Comment on above: Performed By: #### C DP, CMPX #### [facility] [address] [place] [address] Sample Case Porter: Pete Ward MD MCHC (RBC) [Mass/Vol] 26.8 g/dL Low 28.4-34.8 [facility] Comment on above: Performed By: #### C DP, CMPX #### [address] [address] Sample Case Porter: Pete Ward MD MCV (RBC) [Entitic vol] 83.0 fL Normal 82.6-102.9 [facility] Comment on above: Performed By: #### C DP, CMPX #### [address] [address] Sample Case Porter: Pete Ward MD NRBC Automated 0.0 per 100 WBC Normal 0.0 [facility] Comment on above: Performed By: #### C DP, CMPX #### [address] [address] Sample Case Porter: Pete Ward MD Platelet Count See Reflexed IPF Result Normal 138-453 [facility] Comment on above: Performed By: #### C DP, CMPX #### [place] [address] Sample Case Porter: Pete Ward MD Platelet, Fluoresc. 294 k/uL Normal 138-453 [facility] Comment on above: Performed By: #### C DP, CMPX #### [place] [address] Sample Case Porter: Pete Ward MD PLT, Immature Fract. 13.0 % High 1.1-10.3 [facility] Comment on above: Performed By: #### C DP, CMPX #### [address] [address] Sample Case Porter: Pete Ward MD RBC (Bld) [#/Vol] 3.59 10*6/uL Low 4.21-5.77 [facility] Comment on above: Performed By: #### C DP, CMPX #### [facility] [address] [place] [address] Sample Case Porter: Pete Ward MD WBC (Bld) [#/Vol] 12.3 10*3/uL High 3.5-11.3 [facility] Comment on above: Performed By: #### C DP, CMPX #### [facility] [address] [place] [address] Sample Case Porter: Pete Ward MD CT ABDOMEN PELVIS W [...] MD 04/06/23 Final result Normal [facility] Extra Yellow Tubeon 04-06-20 Extra Yellow Tube Normal [facility] Comment on above: Performed By: #### B MP, CBC, XYEL #### [facility] [place] [address] Sample Case Porter: Pete Ward MD XR ABDOMEN FOR NG/OG/NE [...] MD 04/06/23 Final result Normal [facility] XR ABDOMEN FOR NG/OG/NE TUBE PLACEMENTon 04-05-2023 [...] MD 04/05/23 Final result Normal [facility] Basic Metabolic Profon 04-04 Anion gap [Moles/Vol] 7 mmol/L Low 9-17 [facility] Comment on above: Performed By: #### P T, RAFFAELE, MG, CBC, CPBILC #### [place] [address] Sample Case Porter: Pete Ward MD Calcium [Mass/Vol] 9.3 mg/dL Normal 8.6-10.4 [facility] Comment on above: Performed By: #### P T, RAFFAELE, MG, CBC, CPBILC #### [facility] [address] [place] [address] Sample Case Porter: Pete Ward MD Chloride [Moles/Vol] 98 mmol/L Normal 98-107 [facility] Comment on above: Performed By: #### P T, RAFFAELE, MG, CBC, CPBILC #### [facility] [address] [place] [address] Sample Case Porter: Pete Ward MD CO2 [Moles/Vol] 32 mmol/L High -31 [facility] Comment on above: Performed By: #### P T, RAFFAELE, MG, CBC, CPBILC #### [facility] [address] [place] [address] Sample Case Porter: Pete Ward MD Creatinine [Mass/Vol] 0.4 mg/dL Low 0.7-1.2 [facility] Comment on above: Performed By: #### P T, RAFFAELE, MG, CBC, CPBILC #### [address] [address] Sample Case Porter: Pete Ward MD GFR/1.73 sq M.predicted among non-blacks MDRD (S/P/Bld) [Vol rate/Area] mL/min/{1.73_m2} Normal >60 [facility] Comment on above: Result Comment: These results [...] P T, RAFFAELE, MG, CBC, CPBILC #### [address] [address] Sample Case Porter: Pete Ward MD Glucose [Mass/Vol] 86 mg/dL Normal 70-99 [facility] Comment on above: Performed By: #### P T, RAFFAELE, MG, CBC, CPBILC #### [address] [address] Sample Case Porter: Pete Ward MD Potassium [Moles/Vol] 4.2 mmol/L Normal 3.7-5.3 [facility] Comment on above: Performed By: #### P T, RAFFAELE, MG, CBC, CPBILC #### [address] [address] Sample Case Porter: Pete Ward MD Sodium [Moles/Vol] 137 mmol/L Normal 135-144 [facility] Comment on above: Performed By: #### P T, RAFFAELE, MG, CBC, CPBILC #### [address] [address] Sample Case Porter: Pete Ward MD Urea nitrogen [Mass/Vol] 10 mg/dL Normal 8-23 [facility] Comment on above: Performed By: #### P T, RAFFAELE, MG, CBC, CPBILC #### [address] [address] Sample Case Porter: Pete Ward MD CBC with Diffon 04-04-2023 Abs. Basophil 0.00 k/uL Normal 0.0-0.2 [facility] Comment on above: Performed By: #### C BC, BMP #### [address] [address] Sample Case Porter: Pete Ward MD Abs.Imm.Granulocyte 0.00 k/uL Normal 0.00-0.30 [facility] Comment on above: Performed By: #### C BC, BMP #### [place] [address] Sample Case Porter: Pete Ward MD Abs.Neutrophil (Seg) 10.50 k/uL High 1.8-7.7 [facility] Comment on above: Performed By: #### C BC, BMP #### [address] [address] Sample Case Porter: Pete Ward MD Basophils/100 WBC (Bld) 0 % Normal 0-2 M [facility] Comment on above: Performed By: #### C BC, BMP #### [address] [address] Sample Case Porter: Pete Ward MD Eosinophils (Bld) [#/Vol] 0.12 10*3/uL Normal 0.0-0.4 [facility] Comment on above: Performed By: #### C BC, BMP #### [address] [address] Sample Case Porter: Pete Ward MD Eosinophils/100 WBC (Bld) 1 % Normal 1-4 [facility] Comment on above: Performed By: #### C BC, BMP #### [address] [address] Sample Case Porter: Pete Ward MD Immature granulocytes/100 WBC (Bld) 0 % Normal 0 [facility] Comment on above: Performed By: #### C BC, BMP #### [address] [address] Sample Case Porter: Pete Ward MD Lymphocytes (Bld) [#/Vol] 0.71 10*3/uL Low 1.0-4.8 [facility] Comment on above: Performed By: #### C BC, BMP #### [address] [address] Sample Case Porter: Pete Ward MD Lymphocytes/100 WBC (Bld) 6 % Low 24-44 [facility] Comment on above: Performed By: #### C BC, BMP #### [address] [address] Sample Case Porter: Pete Ward MD Monocytes (Bld) [#/Vol] 0.47 10*3/uL Normal 0.1-0.8 [facility] Comment on above: Performed By: #### C BC, BMP #### [address] [address] Sample Case Porter: Pete Ward MD Monocytes/100 WBC (Bld) 4 % Normal 1-7 [facility] Comment on above: Performed By: #### C BC, BMP #### [address] [address] Sample Case Porter: Pete Ward MD Morphology Luis (Bld) [Interp] ANISOCYTOSIS PRESENT Normal [facility] Comment on above: Result Comment: HYPO CHROMIA PRESENT Performed By: #### C BC, BMP #### [address] [address] Sample Case Porter: Pete Ward MD Neutrophil (Seg) 89 % High 36-66 [facility] Comment on above: Performed By: #### C BC, BMP #### [address] [address] Sample Case Porter: Pete Ward MD Erythrocyte distribution width (RBC) [Ratio] 23.0 % High 11.8-14.4 [facility] Comment on above: Performed By: #### C BC, BMP #### [address] [address] Sample Case Porter: Pete Ward MD Hematocrit (Bld) [Volume fraction] 28.9 % Low 40.7-50.3 [facility] Comment on above: Performed By: #### C BC, BMP #### [address] [address] Sample Case Porter: Pete Ward MD Hemoglobin (Bld) [Mass/Vol] 7.6 g/dL Low 13.0-17.0 [facility] Comment on above: Performed By: #### C BC, BMP #### [address] [address] Sample Case Porter: Pete Ward MD MCH (RBC) [Entitic mass] 22.2 pg Low 25.2-33.5 [facility] Comment on above: Performed By: #### C BC, BMP #### [address] [address] Sample Case Porter: Pete Ward MD MCHC (RBC) [Mass/Vol] 26.3 g/dL Low 28.4-34.8 [facility] Comment on above: Performed By: #### C BC, BMP #### [address] [address] Sample Case Porter: Pete Ward MD MCV (RBC) [Entitic vol] 84.5 fL Normal 82.6-102.9 M [facility] Comment on above: Performed By: #### C BC, BMP #### [address] [address] Sample Case Porter: Pete Ward MD NRBC Automated 0.0 per 100 WBC Normal 0.0 [facility] Comment on above: Performed By: #### C BC, BMP #### [address] [address] Sample Case Porter: Pete Ward MD Platelet Count See Reflexed IPF Result Normal 138-453 [facility] Comment on above: Performed By: #### C BC, BMP #### [address] [address] Sample Case Porter: Pete Ward MD Platelet, Fluoresc. 245 k/uL Normal 138-453 [facility] Comment on above: Performed By: #### C BC, BMP #### [address] [address] Sample Case Porter: Pete Ward MD PLT, Immature Fract. 12.7 % High 1.1-10.3 [facility] Comment on above: Performed By: #### C BC, BMP #### [address] [address] Sample Case Porter: Pete Ward MD RBC (Bld) [#/Vol] 3.42 10*6/uL Low 4.21-5.77 [facility] Comment on above: Performed By: #### C BC, BMP #### [address] [address] Sample Case Porter: Pete Ward MD RBC morphology finding Nom (Bld) ANISOCYTOSIS PRESENT Normal [facility] Comment on above: Result Comment: HYPO CHROMIA PRESENT Performed By: #### C BC, BMP #### [address] [address] Sample Case Porter: Pete Ward MD WBC (Bld) [#/Vol] 11.8 10*3/uL High 3.5-11.3 [facility] Comment on above: Performed By: #### C BC, BMP #### [address] [address] Sample Case Porter: Pete Ward MD Extra Yellow Tubeon 04-04-20 23 Extra Yellow Tube Normal [facility] Comment on above: Performed By: #### P T, RAFFAELE, MG, CBC, CPBILC #### [address] [address] Sample Case Porter: Peet Ward MD K (Potassium)on 04-04-2023 Potassium [Moles/Vol] 4.1 mmol/L Normal 3.7-5.3 [facility] Comment on above: Performed By: #### C DP, CMPX #### [address] [address] Sample Case Porter: Pete Ward MD Potassium [Moles/Vol] 4.3 mmol/L Normal 3.7-5.3 [facility] Comment on above: Performed By: #### P T, RAFFAELE, MG, CBC, CPBILC #### [address] [address] Sample Case Porter: Pete Ward MD Magnesiumon 04-04-2023 Magnesium [Mass/Vol] 1.9 mg/dL Normal 1.6-2.6 [facility] Comment on above: Performed By: #### C DP, CMPX #### [address] [address] Sample Case Porter: Pete Ward MD Magnesium [Mass/Vol] 1.9 mg/dL Normal 1.6-2.6 [facility] Comment on above: Performed By: #### P T, RAFFAELE, MG, CBC, CPBILC #### [address] [address] Sample Case Porter: Pete Ward MD Ammoniaon 04-03-2023 Ammonia (P) [Moles/Vol] 35 umol/L Normal 16-60 M [facility] Comment on above: Performed By: #### P T, RAFFAELE, MG, CBC, CPBILC #### [address] [address] Sample Case Porter: Pete Ward MD CBC with Diffon 04-03-2023 Abs. Basophil 0.00 k/uL Normal 0.00-0.20 [facility] Comment on above: Performed By: #### P T, RAFFAELE, MG, CBC, CPBILC #### [place] [address] Sample Case Porter: Pete Ward MD Abs.Imm.Granulocyte 0.10 k/uL Normal 0.00-0.30 [facility] Comment on above: Performed By: #### P T, RAFFAELE, MG, CBC, CPBILC #### [place] [address] Sample Case Porter: Pete Ward MD Abs.Neutrophil (Seg) 7.65 k/uL Normal 1.50-8.10 [facility] Comment on above: Performed By: #### P T, RAFFAELE, MG, CBC, CPBILC #### [facility] [address] [place] [address] Sample Case Porter: Pete Ward MD Basophils/100 WBC (Bld) 0 % Normal 0-2 M [facility] Comment on above: Performed By: #### P T, RAFFAELE, MG, CBC, CPBILC #### [facility] [address] [place] [address] Sample Case Porter: Pete Ward MD Eosinophils (Bld) [#/Vol] 0.39 10*3/uL Normal 0.00-0.4 4 [facility] Comment on above: Performed By: #### P T, RAFFAELE, MG, CBC, CPBILC #### [address] [address] Sample Case Porter: Pete Ward MD Eosinophils/100 WBC (Bld) 4 % Normal 1-4 [facility] Comment on above: Performed By: #### P T, RAFFAELE, MG, CBC, CPBILC #### [address] [address] Sample Case Porter: Pete Ward MD Immature granulocytes/100 WBC (Bld) 1 % High 0 [facility] Comment on above: Performed By: #### P T, RAFFAELE, MG, CBC, CPBILC #### [place] [address] Sample Case Porter: Pete Ward MD Lymphocytes (Bld) [#/Vol] 0.78 10*3/uL Low 1.10-3.7 0 [facility] Comment on above: Performed By: #### P T, RAFFAELE, MG, CBC, CPBILC #### [address] [address] Sample Case Porter: Pete Ward MD Lymphocytes/100 WBC (Bld) 8 % Low 24-43 [facility] Comment on above: Performed By: #### P T, RAFFAELE, MG, CBC, CPBILC #### [place] [address] Sample Case Porter: Pete Ward MD Monocytes (Bld) [#/Vol] 0.88 10*3/uL Normal 0.10-1.20 [facility] Comment on above: Performed By: #### P T, RAFFAELE, MG, CBC, CPBILC #### [address] [address] Sample Case Porter: Pete Ward MD Monocytes/100 WBC (Bld) 9 % Normal 3-12 [facility] Comment on above: Performed By: #### P T, RAFFAELE, MG, CBC, CPBILC #### [address] [address] Sample Case Porter: Pete Ward MD Morphology Luis (Bld) [Interp] HYPOCHROMIA PRESENT Normal [facility] Comment on above: Result Comment: ANIS OCYTOSIS PRESENT Performed By: #### P T, RAFFAELE, MG, CBC, CPBILC #### [place] [address] Sample Case Porter: Pete Wadr MD Neutrophil (Seg) 78 % High 36-65 [facility] Comment on above: Performed By: #### P T, RAFFAELE, MG, CBC, CPBILC #### [place] [address] Sample Case Porter: Pete Ward MD Erythrocyte distribution width (RBC) [Ratio] 22.8 % High 11.8-14.4 [facility] Comment on above: Performed By: #### P T, RAFFAELE, MG, CBC, CPBILC #### [place] [address] Sample Case Porter: Pete Ward MD Hematocrit (Bld) [Volume fraction] 29.6 % Low 40.7-50.3 [facility] Comment on above: Performed By: #### P T, RAFFAELE, MG, CBC, CPBILC #### [address] [address] Sample Case Porter: Pete Ward MD Hemoglobin (Bld) [Mass/Vol] 8.0 g/dL Low 13.0-17.0 [facility] Comment on above: Performed By: #### P T, RAFFAELE, MG, CBC, CPBILC #### [address] [address] Sample Case Porter: Pete Ward MD MCH (RBC) [Entitic mass] 22.5 pg Low 25.2-33.5 [facility] Comment on above: Performed By: #### P T, RAFFAELE, MG, CBC, CPBILC #### [address] [address] Sample Case Porter: Pete Ward MD MCHC (RBC) [Mass/Vol] 27.0 g/dL Low 28.4-34.8 [facility] Comment on above: Performed By: #### P T, RAFFAELE, MG, CBC, CPBILC #### [address] [address] Sample Case Porter: Pete Ward MD MCV (RBC) [Entitic vol] 83.4 fL Normal 82.6-102.9 M [facility] Comment on above: Performed By: #### P T, RAFFAELE, MG, CBC, CPBILC #### [address] [address] Sample Case Porter: Pete Ward MD NRBC Automated 0.0 per 100 WBC Normal 0.0 [facility] Comment on above: Performed By: #### P T, RAFFAELE, MG, CBC, CPBILC #### [address] [address] Sample Case Porter: Pete Ward MD Platelet Count See Reflexed IPF Result Normal 138-453 [facility] Comment on above: Performed By: #### P T, RAFFAELE, MG, CBC, CPBILC #### [address] [address] Sample Case Porter: Pete Ward MD Platelet, Fluoresc. 256 k/uL Normal 138-453 [facility] Comment on above: Performed By: #### P T, RAFFAELE, MG, CBC, CPBILC #### [facility] [address] [place] [address] Sample Case Porter: Pete Ward MD PLT, Immature Fract. 12.6 % High 1.1-10.3 [facility] Comment on above: Performed By: #### P T, RAFFAELE, MG, CBC, CPBILC #### [facility] [address] [place] [address] Sample Case Porter: Pete Ward MD RBC (Bld) [#/Vol] 3.55 10*6/uL Low 4.21-5.77 [facility] Comment on above: Performed By: #### P T, RAFFAELE, MG, CBC, CPBILC #### [facility] [address] [place] [address] Sample Case Porter: Pete Ward MD WBC (Bld) [#/Vol] 9.8 10*3/uL Normal 3.5-11.3 [facility] Comment on above: Performed By: #### P T, RAFFAELE, MG, CBC, CPBILC #### [facility] [address] [place] [address] Sample Case Porter: Pete Ward MD Comp Metab w/Bili Pron 04-03 Albumin [Mass/Vol] 2.6 g/dL Low 3.5-5.2 [facility] Comment on above: Performed By: #### P T, RAFFAELE, MG, CBC, CPBILC #### [facility] [address] [place] [address] Sample Case Porter: Pete Ward MD Albumin/Glob Ratio 0.7 Low 1.0-2.5 [facility] Comment on above: Performed By: #### P T, RAFFAELE, MG, CBC, CPBILC #### [facility] [address] [place] [address] Sample Case Porter: Pete Ward MD Alkaline Phos 72 U/L Normal 40-129 [facility] Comment on above: Performed By: #### P T, RAFFAELE, MG, CBC, CPBILC #### [address] [address] Sample Case Porter: Pete Ward MD ALT [Catalytic activity/Vol] 20 U/L Normal 5-41 [facility] Comment on above: Performed By: #### P T, RAFFAELE, MG, CBC, CPBILC #### [address] [address] Sample Case Porter: Pete Ward MD Anion gap [Moles/Vol] 6 mmol/L Low 9-17 [facility] Comment on above: Performed By: #### P T, RAFFAELE, MG, CBC, CPBILC #### [address] [address] Sample Case Porter: Pete Ward MD AST [Catalytic activity/Vol] 23 U/L Normal <40 [facility] Comment on above: Performed By: #### P T, RAFFAELE, MG, CBC, CPBILC #### [address] [address] Sample Case Porter: Pete Ward MD Bilirubin [Mass/Vol] 0.4 mg/dL Normal 0.3-1.2 [facility] Comment on above: Performed By: #### P T, RAFFAELE, MG, CBC, CPBILC #### [address] [address] Sample Case Porter: Pete Ward MD Bilirubin, Indirect 0.2 mg/dL Normal 0.0-1.0 [facility] Comment on above: Performed By: #### P T, RAFFAELE, MG, CBC, CPBILC #### [address] [address] Sample Case Porter: Pete Ward MD Bilirubin.indirect [Mass/Vol] 0.2 mg/dL Normal <0.3 [facility] Comment on above: Performed By: #### P T, RAFFAELE, MG, CBC, CPBILC #### [address] [id number] Sample Case Porter: Pete Ward MD Calcium [Mass/Vol] 9.5 mg/dL Normal 8.6-10.4 [facility] Comment on above: Performed By: #### P T, RAFFAELE, MG, CBC, CPBILC #### [place] [address] Sample Case Porter: Pete Ward MD Chloride [Moles/Vol] 101 mmol/L Normal 98-107 [facility] Comment on above: Performed By: #### P T, RAFFAELE, MG, CBC, CPBILC #### [address] [address] Sample Case Porter: Pete Ward MD CO2 [Moles/Vol] 35 mmol/L High 20-31 [facility] Comment on above: Performed By: #### P T, RAFFAELE, MG, CBC, CPBILC #### [address] [address] Sample Case Porter: Pete Ward MD Creatinine [Mass/Vol] 0.5 mg/dL Low 0.7-1.2 [facility] Comment on above: Performed By: #### P T, RAFFAELE, MG, CBC, CPBILC #### [address] [address] Sample Case Porter: Pete Ward MD GFR/1.73 sq M.predicted among non-blacks MDRD (S/P/Bld) [Vol rate/Area] mL/min/{1.73_m2} Normal >60 [facility] Comment on above: Result Comment: These results [...] P T, RAFFAELE, MG, CBC, CPBILC #### [facility] [address] [place] [address] Sample Case Porter: Pete Ward MD Glucose [Mass/Vol] 105 mg/dL High 70-99 [facility] Comment on above: Performed By: #### P T, RAFFAELE, MG, CBC, CPBILC #### [address] [address] Sample Case Porter: Pete Ward MD Potassium [Moles/Vol] 4.0 mmol/L Normal 3.7-5.3 [facility] Comment on above: Performed By: #### P T, RAFFAELE, MG, CBC, CPBILC #### [address] [address] Sample Case Porter: Pete Ward MD Protein [Mass/Vol] 6.2 g/dL Low 6.4-8.3 [facility] Comment on above: Performed By: #### P T, RAFFAELE, MG, CBC, CPBILC #### [facility] [address] [place] [address] Sample Case Porter: Pete Ward MD Sodium [Moles/Vol] 142 mmol/L Normal 135-144 [facility] Comment on above: Performed By: #### P T, RAFFAELE, MG, CBC, CPBILC #### [facility] [address] [place] [address] Sample Case Porter: Pete Ward MD Urea nitrogen [Mass/Vol] 13 mg/dL Normal 8-23 [facility] Comment on above: Performed By: #### P RAFFAELE Fritz MG, CBC, CPBILC #### [facility] [place], [place] [address] Sample Case Porter: Pete Ward MD XR ABDOMEN (KUB) (SINGLE [...] MD 04/03/23 Final result Normal [facility] Brain Natri. Peptideon 04-01 Natriuretic peptide B (Bld) [Mass/Vol] 1152 pg/mL High <300 [facility] Comment on above: Result Comment: An age-independent cutoff point of 300 pg/ml has a 98% negative predictive value excluding acute heart failure. Performed By: #### C BC, BMP #### [facility] [address] [place] [phone] Sample Case Porter: Pete Ward MD CBC with Diffon 04-01-2023 Abs. Basophil 0.00 k/uL Normal 0.00-0.20 [facility] Comment on above: Performed By: #### P RAFFAELE Fritz MG, CBC, CPBILC #### [facility] [place], [place] [id number] Sample Case Porter: Pete Ward MD Abs.Imm.Granulocyte 0.00 k/uL Normal 0.00-0.30 [facility] Comment on above: Performed By: #### P T, RAFFAELE, MG, CBC, CPBILC #### [address] [address] Sample Case Porter: Pete Ward MD Abs.Neutrophil (Seg) 9.86 k/uL High 1.50-8.10 [facility] Comment on above: Performed By: #### P T, RAFFAELE, MG, CBC, CPBILC #### [address] [address] Sample Case Porter: Pete Ward MD Basophils/100 WBC (Bld) 0 % Normal 0-2 [facility] Comment on above: Performed By: #### P T, RAFFAELE, MG, CBC, CPBILC #### [place] [address] Sample Case Porter: Pete Ward MD Eosinophils (Bld) [#/Vol] 0.63 10*3/uL High 0.00-0.4 4 [facility] Comment on above: Performed By: #### P T, RAFFAELE, MG, CBC, CPBILC #### [place] [address] Sample Case Porter: Pete Ward MD Eosinophils/100 WBC (Bld) 5 % High 1-4 [facility] Comment on above: Performed By: #### P T, RAFFAELE, MG, CBC, CPBILC #### [place] [address] Sample Case Porter: Pete Ward MD Immature granulocytes/100 WBC (Bld) 0 % Normal 0 [facility] Comment on above: Performed By: #### P T, RAFFAELE, MG, CBC, CPBILC #### [address] [address] Sample Case Porter: Pete Ward MD Lymphocytes (Bld) [#/Vol] 0.88 10*3/uL Low 1.10-3.7 0 [facility] Comment on above: Performed By: #### P T, RAFFAELE, MG, CBC, CPBILC #### [address] [address] Sample Case Porter: Pete Ward MD Lymphocytes/100 WBC (Bld) 7 % Low 24-43 [facility] Comment on above: Performed By: #### P T, RAFFAELE, MG, CBC, CPBILC #### [address] [address] Sample Case Porter: Pete Ward MD Monocytes (Bld) [#/Vol] 1.13 10*3/uL Normal 0.10-1.20 [facility] Comment on above: Performed By: #### P T, RAFFAELE, MG, CBC, CPBILC #### [address] [address] Sample Case Porter: Pete Ward MD Monocytes/100 WBC (Bld) 9 % Normal 3-12 M [facility] Comment on above: Performed By: #### P T, RAFFAELE, MG, CBC, CPBILC #### [address] [address] Sample Case Porter: Pete Ward MD Morphology Luis (Bld) [Interp] ANISOCYTOSIS PRESENT Normal [facility] Comment on above: Result Comment: HYPO CHROMIA PRESENT 1+ ELLIPTOCYTES Performed By: #### P T, RAFFAELE, MG, CBC, CPBILC #### [address] [address] Sample Case Porter: Pete Ward MD Neutrophil (Seg) 79 % High 36-65 [facility] Comment on above: Performed By: #### P T, RAFFAELE, MG, CBC, CPBILC #### [address] [address] Sample Case Porter: Pete Ward MD Platelet, Fluoresc. Platelet clumps present, count appears adequate. Normal 138-453 [facility] Comment on above: Performed By: #### P T, RAFFAELE, MG, CBC, CPBILC #### [address] [id number] Sample Case Porter: Pete Ward MD Erythrocyte distribution width (RBC) [Ratio] 22.7 % High 11.8-14.4 [facility] Comment on above: Performed By: #### P T, RAFFAELE, MG, CBC, CPBILC #### [place] [address] Sample Case Porter: Pete Ward MD Hematocrit (Bld) [Volume fraction] 32.3 % Low 40.7-50.3 [facility] Comment on above: Performed By: #### P T, RAFFAELE, MG, CBC, CPBILC #### [place] [address] Sample Case Porter: Pete Ward MD Hemoglobin (Bld) [Mass/Vol] 8.4 g/dL Low 13.0-17.0 [facility] Comment on above: Performed By: #### P T, RAFFAELE, MG, CBC, CPBILC #### [place] [address] Sample Case Porter: Pete Ward MD MCH (RBC) [Entitic mass] 22.4 pg Low 25.2-33.5 [facility] Comment on above: Performed By: #### P T, RAFFAELE, MG, CBC, CPBILC #### [place] [address] Sample Case Porter: Pete Ward MD MCHC (RBC) [Mass/Vol] 26.0 g/dL Low 28.4-34.8 [facility] Comment on above: Performed By: #### P T, RAFFAELE, MG, CBC, CPBILC #### [address] [address] Sample Case Porter: Pete Ward MD MCV (RBC) [Entitic vol] 86.1 fL Normal 82.6-102.9 M [facility] Comment on above: Performed By: #### P T, RAFFAELE, MG, CBC, CPBILC #### [address] [address] Sample Case Porter: Pete Ward MD NRBC Automated 0.0 per 100 WBC Normal 0.0 [facility] Comment on above: Performed By: #### P T, RAFFAELE, MG, CBC, CPBILC #### [address] [address] Sample Case Porter: Pete Ward MD Platelet Count See Reflexed IPF Result Normal 138-453 [facility] Comment on above: Performed By: #### P T, RAFFAELE, MG, CBC, CPBILC #### [address] [address] Sample Case Porter: Pete Ward MD RBC (Bld) [#/Vol] 3.75 10*6/uL Low 4.21-5.77 [facility] Comment on above: Performed By: #### P T, RAFFAELE, MG, CBC, CPBILC #### [address] [address] Sample Case Porter: Pete Ward MD WBC (Bld) [#/Vol] 12.5 10*3/uL High 3.5-11.3 [facility] Comment on above: Performed By: #### P T, RAFFAELE, MG, CBC, CPBILC #### [address] [address] Sample Case Porter: Pete Ward MD Abs. Basophil 0.00 k/uL Normal 0.0-0.2 [facility] Comment on above: Performed By: #### C BC, BMP #### [address] [address] Sample Case Porter: Pete Ward MD Abs.Imm.Granulocyte 0.00 k/uL Normal 0.00-0.30 [facility] Comment on above: Performed By: #### C BC, BMP #### [address] [address] Sample Case Porter: Pete Ward MD Abs.Neutrophil (Seg) 8.50 k/uL High 1.8-7.7 [facility] Comment on above: Performed By: #### C BC, BMP #### [address] [address] Sample Case Porter: Pete Ward MD Basophils/100 WBC (Bld) 0 % Normal 0-2 [facility] Comment on above: Performed By: #### C BC, BMP #### [address] [address] Sample Case Porter: Pete Ward MD Eosinophils (Bld) [#/Vol] 0.55 10*3/uL High 0.0-0.4 [facility] Comment on above: Performed By: #### C BC, BMP #### [address] [address] Sample Case Porter: Pete Ward MD Eosinophils/100 WBC (Bld) 5 % High 1-4 [facility] Comment on above: Performed By: #### C BC, BMP #### [address] [address] Sample Case Porter: Pete Ward MD Immature granulocytes/100 WBC (Bld) 0 % Normal 0 [facility] Comment on above: Performed By: #### C BC, BMP #### [address] [address] Sample Case Porter: Pete Ward MD Lymphocytes (Bld) [#/Vol] 0.76 10*3/uL Low 1.0-4.8 [facility] Comment on above: Performed By: #### C BC, BMP #### [address] [address] Sample Case Porter: Pete Ward MD Lymphocytes/100 WBC (Bld) 7 % Low 24-44 [facility] Comment on above: Performed By: #### C BC, BMP #### [address] [address] Sample Case Porter: Pete Ward MD Monocytes (Bld) [#/Vol] 1.09 10*3/uL High 0.1-0.8 [facility] Comment on above: Performed By: #### C BC, BMP #### [address] [address] Sample Case Porter: Pete Ward MD Monocytes/100 WBC (Bld) 10 % High 1-7 M [facility] Comment on above: Performed By: #### C BC, BMP #### [address] [address] Sample Case Porter: Pete Ward MD Morphology Luis (Bld) [Interp] ANISOCYTOSIS PRESENT Normal [facility] Comment on above: Result Comment: HYPO CHROMIA PRESENT 1+ ELLIPTOCYTES Performed By: #### C BC, BMP #### [address] [address] Sample Case Porter: Pete Ward MD Neutrophil (Seg) 78 % High 36-66 [facility] Comment on above: Performed By: #### C BC, BMP #### [address] [address] Sample Case Porter: Pete Ward MD Comp Metab w/Bili Pron 04-01 Albumin [Mass/Vol] 2.8 g/dL Low 3.5-5.2 [facility] Comment on above: Performed By: #### P T, RAFFAELE, MG, CBC, CPBILC #### [address] [address] Sample Case Porter: Pete Ward MD Albumin/Glob Ratio 0.9 Low 1.0-2.5 [facility] Comment on above: Performed By: #### P T, RAFFAELE, MG, CBC, CPBILC #### [address] [address] Sample Case Porter: Pete Ward MD Alkaline Phos 71 U/L Normal 40-129 [facility] Comment on above: Performed By: #### P T, RAFFAEEL, MG, CBC, CPBILC #### [address] [address] Sample Case Porter: Pete Ward MD ALT [Catalytic activity/Vol] 24 U/L Normal 5-41 [facility] Comment on above: Performed By: #### P T, RAFFAELE, MG, CBC, CPBILC #### [address] [address] Sample Case Porter: Pete Ward MD Anion gap [Moles/Vol] 2 mmol/L Low 9-17 [facility] Comment on above: Performed By: #### P T, RAFFAELE, MG, CBC, CPBILC #### [facility] [address] [place] [address] Sample Case Porter: Pete Ward MD AST [Catalytic activity/Vol] 22 U/L Normal <40 [facility] Comment on above: Performed By: #### P T, RAFFAELE, MG, CBC, CPBILC #### [facility] [address] [place] [address] Sample Case Porter: Pete Ward MD Bilirubin [Mass/Vol] 0.5 mg/dL Normal 0.3-1.2 [facility] Comment on above: Performed By: #### P T, RAFFAELE, MG, CBC, CPBILC #### [facility] [address] [place] [address] Sample Case Porter: Pete Ward MD Bilirubin, Indirect 0.3 mg/dL Normal 0.0-1.0 [facility] Comment on above: Performed By: #### P T, RAFFAELE, MG, CBC, CPBILC #### [facility] [address] [place] [address] Sample Case Porter: Pete Ward MD Bilirubin.indirect [Mass/Vol] 0.2 mg/dL Normal <0.3 [facility] Comment on above: Performed By: #### P T, RAFFAELE, MG, CBC, CPBILC #### [facility] [address] [place] [address] Sample Case Porter: Pete Ward MD Calcium [Mass/Vol] 9.8 mg/dL Normal 8.6-10.4 [facility] Comment on above: Performed By: #### P T, RAFFAELE, MG, CBC, CPBILC #### [facility] [address] [place] [address] Sample Case Porter: Pete Ward MD Chloride [Moles/Vol] 108 mmol/L High 98-107 [facility] Comment on above: Performed By: #### P T, RAFFAELE, MG, CBC, CPBILC #### [facility] [address] [place] [address] Sample Case Porter: Pete Ward MD CO2 [Moles/Vol] 37 mmol/L High 20-31 [facility] Comment on above: Performed By: #### P T, RAFFAELE, MG, CBC, CPBILC #### [facility] [address] [place] [phone] Sample Case Porter: Pete Ward MD Creatinine [Mass/Vol] 0.5 mg/dL Low 0.7-1.2 [facility] Comment on above: Performed By: #### P T, RAFFAELE, MG, CBC, CPBILC #### [facility] [address] [place] [address] [phone] Sample Case Porter: Pete Ward MD GFR/1.73 sq M.predicted among non-blacks MDRD (S/P/Bld) [Vol rate/Area] mL/min/{1.73_m2} Normal >60 [facility] Comment on above: Result Comment: These results [...] P T, RAFFAELE, MG, CBC, CPBILC #### [facility] [address] [place] [address] Sample Case Porter: Pete Ward MD Glucose [Mass/Vol] 115 mg/dL High 70-99 [facility] Comment on above: Performed By: #### P T, RAFFAELE, MG, CBC, CPBILC #### [facility] [address] [place] [address] [phone] Sample Case Porter: Pete Ward MD Potassium [Moles/Vol] 3.7 mmol/L Normal 3.7-5.3 [facility] Comment on above: Performed By: #### P T, RAFFAELE, MG, CBC, CPBILC #### [facility] [address] [place] [address] [phone] Sample Case Porter: Pete Ward MD Protein [Mass/Vol] 5.9 g/dL Low 6.4-8.3 [facility] Comment on above: Performed By: #### P T, RAFFAELE, MG, CBC, CPBILC #### [address] [address] Sample Case Porter: Pete Ward MD Sodium [Moles/Vol] 147 mmol/L High 135-144 [facility] Comment on above: Performed By: #### P T, RAFFAELE, MG, CBC, CPBILC #### [address] [address] Sample Case Porter: Pete Ward MD Urea nitrogen [Mass/Vol] 11 mg/dL Normal 01-25 [facility] Comment on above: Performed By: #### P T, RAFFAELE, MG, CBC, CPBILC #### [address] [address] Sample Case Porter: Pete Ward MD Cult,Bloodon 04-01-2023 Cult,Blood Specimen Description .BLOOD Special Requests L AC 4ML Culture NO GROWTH 5 DAYS Report Status FINAL 04/01/2023 Normal [facility] Comment on above: Performed By: #### P T, RAFFAELE, MG, CBC, CPBILC #### [address] [address] Sample Case Porter: Pete Ward MD Cult,Blood Specimen Description .BLOOD Special Requests L FOREARM 12ML Culture NO GROWTH 5 DAYS Report Status FINAL 04/01/2023 Normal [facility] Comment on above: Performed By: #### C BC, BMP #### [address] [address] Sample Case Porter: Pete Ward MD CBC with Diffon 03-31-2023 Erythrocyte distribution width (RBC) [Ratio] 22.2 % High 11.8-14.4 [facility] Comment on above: Performed By: #### C BC, BMP #### [address] [address] Sample Case Porter: Pete Ward MD Hematocrit (Bld) [Volume fraction] 30.0 % Low 40.7-50.3 [facility] Comment on above: Performed By: #### C BC, BMP #### [address] [address] Sample Case Porter: Pete Ward MD Hemoglobin (Bld) [Mass/Vol] 8.0 g/dL Low 13.0-17.0 [facility] Comment on above: Performed By: #### C BC, BMP #### [address] [address] Sample Case Porter: Pete Ward MD MCH (RBC) [Entitic mass] 22.2 pg Low 25.2-33.5 [facility] Comment on above: Performed By: #### C MARISEL, BMP #### [address] [address] Sample Case Porter: Pete Ward MD MCHC (RBC) [Mass/Vol] 26.7 g/dL Low 28.4-34.8 [facility] Comment on above: Performed By: #### C BC, BMP #### [address] [address] Sample Case Porter: Pete Ward MD MCV (RBC) [Entitic vol] 83.1 fL Normal 82.6-102.9 M [facility] Comment on above: Performed By: #### C BC, BMP #### [address] [address] Sample Case Porter: Pete Ward MD NRBC Automated 0.0 per 100 WBC Normal 0.0 [facility] Comment on above: Performed By: #### C BC, BMP #### [address] [address] Sample Case Porter: Pete Ward MD Platelet Count See Reflexed IPF Result Normal 138-453 [facility] Comment on above: Performed By: #### C BC, BMP #### [address] [address] Sample Case Porter: Pete Ward MD Platelet, Fluoresc. 241 k/uL Normal 138-453 [facility] Comment on above: Performed By: #### C BC, BMP #### [address] [address] Sample Case Porter: Pete Ward MD PLT, Immature Fract. 12.5 % High 1.1-10.3 [facility] Comment on above: Performed By: #### C BC, BMP #### [address] [address] Sample Case Porter: Pete Ward MD RBC (Bld) [#/Vol] 3.61 10*6/uL Low 4.21-5.77 [facility] Comment on above: Performed By: #### C BC, BMP #### [address] [address] Sample Case Porter: Pete Ward MD WBC (Bld) [#/Vol] 10.9 10*3/uL Normal 3.5-11.3 [facility] Comment on above: Performed By: #### C BC, BMP #### [address] [address] Sample Case Porter: Pete Ward MD Comp Metab w/Bili Pron 03-31 Albumin [Mass/Vol] 2.4 g/dL Low 3.5-5.2 [facility] Comment on above: Performed By: #### P T, RAFFAELE, MG, CBC, CPBILC #### [address] [address] Sample Case Porter: Pete Ward MD Albumin/Glob Ratio 0.7 Low 1.0-2.5 [facility] Comment on above: Performed By: #### P T, RAFFAELE, MG, CBC, CPBILC #### [address] [address] Sample Case Porter: Pete Ward MD Alkaline Phos 68 U/L Normal 40-129 [facility] Comment on above: Performed By: #### P T, RAFFAELE, MG, CBC, CPBILC #### [address] [address] Sample Case Porter: Pete Ward MD ALT [Catalytic activity/Vol] 28 U/L Normal 5-41 [facility] Comment on above: Performed By: #### P T, RAFFAELE, MG, CBC, CPBILC #### [address] [address] Sample Case Porter: Pete Ward MD Anion gap [Moles/Vol] 8 mmol/L Low 9-17 [facility] Comment on above: Performed By: #### P T, RAFFAELE, MG, CBC, CPBILC #### [address] [address] Sample Case Porter: Pete Ward MD AST [Catalytic activity/Vol] 27 U/L Normal <40 [facility] Comment on above: Performed By: #### P T, RAFFAELE, MG, CBC, CPBILC #### [address] [address] Sample Case Porter: Pete Ward MD Bilirubin [Mass/Vol] 0.6 mg/dL Normal 0.3-1.2 [facility] Comment on above: Performed By: #### P T, RAFFAELE, MG, CBC, CPBILC #### [facility] [address] [place] [address] Sample Case Porter: Pete Ward MD Bilirubin, Indirect 0.3 mg/dL Normal 0.0-1.0 [facility] Comment on above: Performed By: #### P T, RAFFAELE, MG, CBC, CPBILC #### [address] [address] Sample Case Porter: Pete Ward MD Bilirubin.indirect [Mass/Vol] 0.3 mg/dL High <0.3 [facility] Comment on above: Performed By: #### P T, RAFFAELE, MG, CBC, CPBILC #### [place] [address] Sample Case Porter: Pete Ward MD Calcium [Mass/Vol] 9.3 mg/dL Normal 8.6-10.4 [facility] Comment on above: Performed By: #### P T, RAFFAELE, MG, CBC, CPBILC #### [address] [address] Sample Case Porter: Pete Ward MD Chloride [Moles/Vol] 107 mmol/L Normal 98-107 [facility] Comment on above: Performed By: #### P T, RAFFAELE, MG, CBC, CPBILC #### [address] [address] Sample Case Porter: Pete Ward MD CO2 [Moles/Vol] 31 mmol/L Normal 20-31 [facility] Comment on above: Performed By: #### P T, RAFFAELE, MG, CBC, CPBILC #### [address] [address] Sample Case Porter: Pete Ward MD Creatinine [Mass/Vol] 0.5 mg/dL Low 0.7-1.2 [facility] Comment on above: Performed By: #### P T, RAFFAELE, MG, CBC, CPBILC #### [address] [address] Sample Case Porter: Pete Ward MD GFR/1.73 sq M.predicted among non-blacks MDRD (S/P/Bld) [Vol rate/Area] mL/min/{1.73_m2} Normal >60 [facility] Comment on above: Result Comment: These results [...] P T, RAFFAELE, MG, CBC, CPBILC #### [facility] [address] [place] [address] Sample Case Porter: Pete Ward MD Glucose [Mass/Vol] 103 mg/dL High 70-99 [facility] Comment on above: Performed By: #### P T, RAFFAELE, MG, CBC, CPBILC #### [facility] [address] [place] [address] Sample Case Porter: Pete Ward MD Potassium [Moles/Vol] 3.5 mmol/L Low 3.7-5.3 [facility] Comment on above: Performed By: #### P T, RAFFAELE, MG, CBC, CPBILC #### [facility] [address] [place] [address] Sample Case Porter: Pete Ward MD Protein [Mass/Vol] 5.7 g/dL Low 6.4-8.3 [facility] Comment on above: Performed By: #### P T, RAFFAELE, MG, CBC, CPBILC #### [facility] [address] [place] [address] Sample Case Porter: Pete Ward MD Sodium [Moles/Vol] 146 mmol/L High 135-144 [facility] Comment on above: Performed By: #### P T, RAFFAELE, MG, CBC, CPBILC #### [facility] [address] [place] [address] Sample Case Porter: Pete Ward MD Urea nitrogen [Mass/Vol] 13 mg/dL Normal 8-23 [facility] Comment on above: Performed By: #### P T, RAFFAELE, MG, CBC, CPBILC #### [address] [address] Sample Case Porter: Pete Ward MD Lactate Dehydrogenaseon 03-06 LDH [Catalytic activity/Vol] 164 U/L Normal 135-225 [facility] Comment on above: Performed By: #### C BC, BMP #### [facility] [address] [place] [address] Sample Case Porter: Pete Ward MD Lactic Acidon 03-31-2023 Lactic Acid,Whole Bl 0.9 mmol/L Normal 0.7-2.1 [facility] Comment on above: Performed By: #### C BC, BMP #### [facility] [address] [place] [address] Sample Case Porter: Pete Ward MD PTon 03-31-2023 INR Coag (PPP) [Relative time] 1.4 {INR} Normal [facility] Comment on above: Result Comment: Therapeutic Range: Moderate Anticoagulant Intensity: INR = 2.0-3.0 High Anticoagulant Intensity: INR = 2.5-3.5 Performed By: #### C BC, BMP #### [facility] [address] [place] [address] Sample Case Porter: Pete Ward MD PT Coag (PPP) [Time] 17.1 s High 11.7-14.9 [facility] Comment on above: Performed By: #### C BC, BMP #### [facility] [address] [place] [address] Sample Case Porter: Pete Ward MD Retic Counton 03-31-2023 Absolute Retic 0.010 M/uL Low 0.030-0.080 [facility] Comment on above: Performed By: #### C BC, BMP #### [address] [address] Sample Case Porter: Pete Ward MD IRF 22.3 % High 2.7-18.3 [facility] Comment on above: Performed By: #### C BC, BMP #### [address] [address] Sample Case Porter: Pete Ward MD Retic Count 0.3 % Low 0.5-1.9 [facility] Comment on above: Performed By: #### C BC, BMP #### [address] [address] Sample Case Porter: Pete Ward MD Retic Hemoglobin 21.0 pg Low 28.2-35.7 [facility] Comment on above: Performed By: #### C BC, BMP #### [address] [address] Sample Case Porter: Pete Ward MD Type + Screenon 03-31-2023 Type + Screen Sample Expiration 04/03/2023,2359 Arm Band Number BE [id number] ABO/Rh(D) A POSITIVE Antibody Screen NEGATIVE Normal [facility] Comment on above: Performed By: #### P T RAFFAELE, MG, CBC, CPBILC #### [address] [address] Sample Case Porter: Pete Ward MD CBCon 03-30-2023 Erythrocyte distribution width (RBC) [Ratio] 22.3 % High 11.8-14.4 [facility] Comment on above: Performed By: #### C DP, CMPX #### [address] [address] Sample Case Porter: Pete Ward MD Hematocrit (Bld) [Volume fraction] 34.7 % Low 40.7-50.3 [facility] Comment on above: Performed By: #### C DP, CMPX #### [place] [address] Sample Case Porter: Pete Ward MD Hemoglobin (Bld) [Mass/Vol] 9.4 g/dL Low 13.0-17.0 [facility] Comment on above: Performed By: #### C DP, CMPX #### [place] [address] Sample Case Porter: Pete Ward MD MCH (RBC) [Entitic mass] 22.7 pg Low 25.2-33.5 [facility] Comment on above: Performed By: #### C DP, CMPX #### [place] [address] Sample Case Porter: Pete Ward MD MCHC (RBC) [Mass/Vol] 27.1 g/dL Low 28.4-34.8 [facility] Comment on above: Performed By: #### C DP, CMPX #### [place] [address] Sample Case Porter: Pete Ward MD MCV (RBC) [Entitic vol] 83.8 fL Normal 82.6-102.9 M [facility] Comment on above: Performed By: #### C DP, CMPX #### [place] [address] Sample Case Porter: Pete Ward MD NRBC Automated 0.0 per 100 WBC Normal 0.0 [facility] Comment on above: Performed By: #### C DP, CMPX #### [place] [id number] Sample Case Porter: Pete Ward MD Platelet mean volume (Bld) [Entitic vol] 11.6 fL Normal 8.1-13.5 [facility] Comment on above: Performed By: #### C DP, CMPX #### [address] [address] Sample Case Porter: Pete Ward MD Platelets (Bld) [#/Vol] 299 10*3/uL Normal 138-453 [facility] Comment on above: Performed By: #### C DP, CMPX #### [facility] [address] [place] [address] Sample Case Porter: Pete Ward MD RBC (Bld) [#/Vol] 4.14 10*6/uL Low 4.21-5.77 [facility] Comment on above: Performed By: #### C DP, CMPX #### [address] [address] Sample Case Porter: Pete Ward MD WBC (Bld) [#/Vol] 11.5 10*3/uL High 3.5-11.3 [facility] Comment on above: Performed By: #### C DP, CMPX #### [address] [address] Sample Case Porter: Pete Ward MD Comp Metab w/Bili Pron 03-30 Albumin [Mass/Vol] 3.0 g/dL Low 3.5-5.2 [facility] Comment on above: Performed By: #### C DP, CMPX #### [address] [address] Sample Case Porter: Pete Ward MD Albumin/Glob Ratio 0.9 Low 1.0-2.5 [facility] Comment on above: Performed By: #### C DP, CMPX #### [facility] [address] [place] [address] Sample Case Porter: Pete Ward MD Alkaline Phos 78 U/L Normal 40-129 [facility] Comment on above: Performed By: #### C DP, CMPX #### [facility] [address] [place] [address] Sample Case Porter: Pete Ward MD ALT [Catalytic activity/Vol] 37 U/L Normal 5-41 [facility] Comment on above: Performed By: #### C DP, CMPX #### [facility] [address] [place] [address] Sample Case Porter: Pete Ward MD Anion gap [Moles/Vol] 7 mmol/L Low 9-17 [facility] Comment on above: Performed By: #### C DP, CMPX #### [facility] [address] [place] [address] Sample Case Porter: Pete Ward MD AST [Catalytic activity/Vol] 39 U/L Normal <40 [facility] Comment on above: Performed By: #### C DP, CMPX #### [facility] [address] [place] [phone] Sample Case Porter: Pete Ward MD Bilirubin [Mass/Vol] 0.6 mg/dL Normal 0.3-1.2 [facility] Comment on above: Performed By: #### C DP, CMPX #### [facility] [address] [place] [phone] Sample Case Porter: Pete Ward MD Bilirubin, Indirect 0.3 mg/dL Normal 0.0-1.0 [facility] Comment on above: Performed By: #### C DP, CMPX #### [facility] [address] [place] [address] Sample Case Porter: Pete Ward MD Bilirubin.indirect [Mass/Vol] 0.3 mg/dL High <0.3 [facility] Comment on above: Performed By: #### C DP, CMPX #### [facility] [address] [place] [phone] Sample Case Porter: Pete Ward MD Calcium [Mass/Vol] 9.8 mg/dL Normal 8.6-10.4 [facility] Comment on above: Performed By: #### C DP, CMPX #### [address] [address] Sample Case Porter: Pete Ward MD Chloride [Moles/Vol] 106 mmol/L Normal 98-107 [facility] Comment on above: Performed By: #### C DP, CMPX #### [address] [address] Sample Case Porter: Pete Ward MD CO2 [Moles/Vol] 34 mmol/L High 20-31 [facility] Comment on above: Performed By: #### C DP, CMPX #### [address] [address] Sample Case Porter: Pete Ward MD Creatinine [Mass/Vol] 0.6 mg/dL Low 0.7-1.2 [facility] Comment on above: Performed By: #### C DP, CMPX #### [address] [address] Sample Case Porter: Pete Ward MD GFR/1.73 sq M.predicted among non-blacks MDRD (S/P/Bld) [Vol rate/Area] mL/min/{1.73_m2} Normal >60 [facility] Comment on above: Result Comment: These results [...] Performed By: #### C DP, CMPX #### [address] [address] Sample Case Porter: Pete Ward MD Glucose [Mass/Vol] 120 mg/dL High 70-99 [facility] Comment on above: Performed By: #### C DP, CMPX #### [address] [address] Sample Case Porter: Pete Ward MD Potassium [Moles/Vol] 3.3 mmol/L Low 3.7-5.3 [facility] Comment on above: Performed By: #### C DP, CMPX #### [address] [address] Sample Case Porter: Pete Ward MD Protein [Mass/Vol] 6.5 g/dL Normal 6.4-8.3 [facility] Comment on above: Performed By: #### C DP, CMPX #### [address] [address] Sample Case Porter: Pete Ward MD Sodium [Moles/Vol] 147 mmol/L High 135-144 [facility] Comment on above: Performed By: #### C DP, CMPX #### [facility] [address] [place] [address] Sample Case Porter: Pete Ward MD Urea nitrogen [Mass/Vol] 24 mg/dL High 8-23 [facility] Comment on above: Performed By: #### C DP, CMPX #### [address] [address] Sample Case Porter: Pete Ward MD Drug Scr, Abuse, Uron 2022 Amphetamine(s),Ur Negative Normal NEG [facility] Comment on above: Result Comment: (Positive cutoff 1000 ng/mL) Performed By: #### P T, RAFFAELE, MG, CBC, CPBILC #### [facility] [address] [place] [address] Sample Case Porter: Pete Ward MD Barbiturate(s),Ur Negative Normal NEG [facility] Comment on above: Result Comment: (Positive cutoff 200 ng/mL) Performed By: #### P T, RAFFAELE, MG, CBC, CPBILC #### [facility] [address] [place] [address] Sample Case Porter: Pete Ward MD Benzodiazepine(s) Positive Abnormal NEG [facility] Comment on above: Result Comment: (Positive cutoff 200 ng/mL) Performed By: #### P T, RAFFAELE, MG, CBC, CPBILC #### [facility] [address] [place] [address]486 Sample Case Porter: Pete Ward MD Cannabinoid(s),Ur Negative Normal NEG [facility] Comment on above: Result Comment: (Positive cutoff 50 ng/mL) Performed By: #### P T, RAFFAELE, MG, CBC, CPBILC #### [facility] [address] [place] [address]67 Sample Case Porter: Pete Ward MD Cocaine Metabolite Negative Normal NEG [facility] Comment on above: Result Comment: (Positive cutoff 300 ng/mL) Performed By: #### P T, RAFFAELE, MG, CBC, CPBILC #### [facility] [address] [place] [address] Sample Case Porter: Pete Ward MD Fentanyl, Urine Negative Normal NEG [facility] Comment on above: Result Comment: (Positive cutoff 5 ng/ml) Performed By: #### P T, RAFFAELE, MG, CBC, CPBILC #### [facility] [address] [place] [address] Sample Case Porter: Pete Ward MD Interpretive Info Assay provides medical screening only. The absence of expected drug(s) and/or Normal [facility] Comment on above: Result Comment: meta bolite(s) may indicate diluted or adulterated urine, limitations of testing or timing of collection. Testing for legal purposes should be confirmed by another method. To request confirmation of test result, please call the lab within 7 days of sample submission. Performed By: #### P T, RAFFAELE, MG, CBC, CPBILC #### [facility] [address] [place] [phone] Sample Case Porter: Pete Ward MD Methadone Ql (U) Negative Normal NEG [facility] Comment on above: Result Comment: (Positive cutoff 300 ng/mL) Performed By: #### P T, RAFFAELE, MG, CBC, CPBILC #### [facility] [address] [place] [address] Sample Case Porter: Pete Ward MD Opiate(s), Ur Negative Normal NEG [facility] Comment on above: Result Comment: (Positive cutoff 300 ng/mL) Performed By: #### P T, RAFFAELE, MG, CBC, CPBILC #### [address] [address] Sample Case Porter: Pete Ward MD Oxycodone, Urine Negative Normal NEG [facility] Comment on above: Result Comment: (Positive cutoff 100 ng/mL) Performed By: #### P T, RAFFAELE, MG, CBC, CPBILC #### [facility] [address] [place] [address] Sample Case Porter: Pete Ward MD Phencyclidine, Ur Negative Normal NEG [facility] Comment on above: Result Comment: (Positive cutoff 25 ng/mL) Performed By: #### P T, RAFFAELE, MG, CBC, CPBILC #### [facility] [address] [place] [address] Sample Case Porter: Pete Ward MD Lactic Acidon 03-30-2023 Lactic Acid,Whole Bl 1.2 mmol/L Normal 0.7-2.1 [facility] Comment on above: Performed By: #### C DP, CMPX #### [facility] [address] [place] [address] Sample Case Porter: Pete Ward MD MRI LIMITED BRAINon 03-30-20 [...] MD 03/30/23 Final result Normal [facility] UA w/Reflex Cultureon 2022 Bilirubin, SemiQt,Ur Negative Abnormal NEG [facility] Comment on above: Performed By: #### P T, RAFFAELE, MG, CBC, CPBILC #### [facility] [address] [place] [address] Sample Case Porter: Pete Ward MD Blood, Urine Negative Normal NEG [facility] Comment on above: Performed By: #### P T, RAFFAELE, MG, CBC, CPBILC #### [facility] [address] [place] [address] Sample Case Porter: Pete Ward MD Clarity (U) Cloudy Abnormal CLEAR [facility] Comment on above: Performed By: #### P T, RAFFAELE, MG, CBC, CPBILC #### [facility] [address] [place] [address] Sample Case Porter: Pete Ward MD Color (U) Dark Yellow Abnormal YEL [facility] Comment on above: Performed By: #### P T, RAFFAELE, MG, CBC, CPBILC #### [facility] [address] [place] [address] Sample Case Porter: Pete Ward MD Glucose Ql (U) Negative Normal NEG [facility] Comment on above: Performed By: #### P T, RAFFAELE, MG, CBC, CPBILC #### [address] [address] Sample Case Porter: Pete Ward MD Ketones Ql (U) TRACE Abnormal NEG [facility] Comment on above: Performed By: #### P T, RAFFAELE, MG, CBC, CPBILC #### [address] [address] Sample Case Porter: Pete Ward MD Leukocyte esterase Test strip Ql (U) TRACE Abnormal NEG [facility] Comment on above: Performed By: #### P T, RAFFAELE, MG, CBC, CPBILC #### [address] [address] Sample Case Porter: Pete Ward MD Nitrite,Ur Negative Normal NEG [facility] Comment on above: Performed By: #### P T, RAFFAELE, MG, CBC, CPBILC #### [facility] [address] [place] [address] Sample Case Porter: Pete Ward MD PH,Ur 5.5 Normal 5.0-8.0 [facility] Comment on above: Performed By: #### P T, RAFFAELE, MG, CBC, CPBILC #### [address] [address] Sample Case Porter: Pete Ward MD Protein Ql (U) 1+ mg/dL Abnormal NEG [facility] Comment on above: Performed By: #### P T, RAFFAELE, MG, CBC, CPBILC #### [place] [address] Sample Case Porter: Pete Ward MD Spec. T[place],Ur 1.032 High 1.005-1.030 [facility] Comment on above: Performed By: #### P T, RAFFAELE, MG, CBC, CPBILC #### [place] [address] Sample Case Porter: Pete Ward MD Urobilinogen,Ur Normal Normal 0.0-1.0 [facility] Comment on above: Performed By: #### P T, RAFFAELE, MG, CBC, CPBILC #### [place] [address] Sample Case Porter: Pete Ward MD Urinalysis,Microon 3 Bacteria None Normal NONE [facility] Comment on above: Performed By: #### P T, RAFFAELE, MG, CBC, CPBILC #### [place] [address] Sample Case Porter: Pete Ward MD Casts 5 TO 10 HYALINE Normal 0-8 [facility] Comment on above: Result Comment: Refe rence range defined for non-centrifuged specimen. Performed By: #### P T, RAFFAELE, MG, CBC, CPBILC #### [address] [address] Sample Case Porter: Pete Ward MD Epithelial cells LM Ql (Urine sed) 0 TO 2 Normal 0-5 [facility] Comment on above: Performed By: #### P T, RAFFAELE, MG, CBC, CPBILC #### [facility] [address] [place] [address] Sample Case Porter: Pete Ward MD Urine RBC's 20 TO 50 Normal 0-4 [facility] Comment on above: Result Comment: Refe rence range defined for non-centrifuged specimen. Performed By: #### P T, RAFFAELE, MG, CBC, CPBILC #### [facility] [address] [place] [address] Sample Case Porter: Pete Ward MD Urine WBC's 2 TO 5 Normal 0-5 [facility] Comment on above: Performed By: #### P T, RAFFAELE, MG, CBC, CPBILC #### [address] [address] Sample Case Porter: Pete Ward MD Ammoniaon 03-29-2023 Ammonia (P) [Moles/Vol] 34 umol/L Normal 16-60 M [facility] Comment on above: Performed By: #### P T, RAFFAELE, MG, CBC, CPBILC #### [facility] [address] [place] [address] Sample Case Porter: Pete Ward MD CBCon 03-29-2023 Erythrocyte distribution width (RBC) [Ratio] 22.0 % High 11.8-14.4 [facility] Comment on above: Performed By: #### P T, RAFFAELE, MG, CBC, CPBILC #### [facility] [address] [place] [address] Sample Case Porter: Pete Ward MD Hematocrit (Bld) [Volume fraction] 37.0 % Low 40.7-50.3 [facility] Comment on above: Performed By: #### P T, RAFFAELE, MG, CBC, CPBILC #### [facility] [address] [place] [address] Sample Case Porter: Pete Ward MD Hemoglobin (Bld) [Mass/Vol] 9.8 g/dL Low 13.0-17.0 [facility] Comment on above: Performed By: #### P T, RAFFAELE, MG, CBC, CPBILC #### [address] [address] Sample Case Porter: Pete Ward MD MCH (RBC) [Entitic mass] 22.2 pg Low 25.2-33.5 [facility] Comment on above: Performed By: #### P T, RAFFAELE, MG, CBC, CPBILC #### [place] [address] Sample Case Porter: Pete Ward MD MCHC (RBC) [Mass/Vol] 26.5 g/dL Low 28.4-34.8 [facility] Comment on above: Performed By: #### P T, RAFFAELE, MG, CBC, CPBILC #### [place] [address] Sample Case Porter: Pete Ward MD MCV (RBC) [Entitic vol] 83.7 fL Normal 82.6-102.9 M [facility] Comment on above: Performed By: #### P T, RAFFAELE, MG, CBC, CPBILC #### [place] [address] Sample Case Porter: Pete Ward MD NRBC Automated 0.0 per 100 WBC Normal 0.0 [facility] Comment on above: Performed By: #### P T, RAFFAELE, MG, CBC, CPBILC #### [place] [address] Sample Case Porter: Pete Ward MD Platelet mean volume (Bld) [Entitic vol] 11.5 fL Normal 8.1-13.5 [facility] Comment on above: Performed By: #### P T, RAFFAELE, MG, CBC, CPBILC #### [address] [address] Sample Case Porter: Pete Ward MD Platelets (Bld) [#/Vol] 382 10*3/uL Normal 138-453 [facility] Comment on above: Performed By: #### P T, RAFFAELE, MG, CBC, CPBILC #### [facility] [address] [place] [address] Sample Case Porter: Pete Ward MD RBC (Bld) [#/Vol] 4.42 10*6/uL Normal 4.21-5.77 [facility] Comment on above: Performed By: #### P T, RAFFAELE, MG, CBC, CPBILC #### [address] [address] Sample Case Porter: Pete Ward MD WBC (Bld) [#/Vol] 9.5 10*3/uL Normal 3.5-11.3 [facility] Comment on above: Performed By: #### P T, RAFFAELE, MG, CBC, CPBILC #### [address] [address] Sample Case Porter: Pete Ward MD Comp Metab w/Bili Pron 03-29 Albumin [Mass/Vol] 3.2 g/dL Low 3.5-5.2 [facility] Comment on above: Performed By: #### P T, RAFFAELE, MG, CBC, CPBILC #### [address] [address] Sample Case Porter: Pete Ward MD Albumin/Glob Ratio 0.9 Low 1.0-2.5 [facility] Comment on above: Performed By: #### P T, RAFFAELE, MG, CBC, CPBILC #### [facility] [address] [place] [address] Sample Case Porter: Pete Ward MD Alkaline Phos 77 U/L Normal 40-129 [facility] Comment on above: Performed By: #### P T, RAFFAELE, MG, CBC, CPBILC #### [address] [address] Sample Case Porter: Pete Ward MD ALT [Catalytic activity/Vol] 45 U/L High 5-41 [facility] Comment on above: Performed By: #### P T, RAFFAELE, MG, CBC, CPBILC #### [address] [address] Sample Case Porter: Pete Ward MD Anion gap [Moles/Vol] 7 mmol/L Low 9-17 [facility] Comment on above: Performed By: #### P T, RAFFAELE, MG, CBC, CPBILC #### [address] [address] Sample Case Porter: Pete Ward MD AST [Catalytic activity/Vol] 51 U/L High <40 [facility] Comment on above: Performed By: #### P T, RAFFAELE, MG, CBC, CPBILC #### [facility] [address] [place] [address] Sample Case Porter: Pete Ward MD Bilirubin [Mass/Vol] 0.8 mg/dL Normal 0.3-1.2 [facility] Comment on above: Performed By: #### P T, RAFFAELE, MG, CBC, CPBILC #### [address] [address] Sample Case Porter: Pete Ward MD Bilirubin, Indirect 0.3 mg/dL Normal 0.0-1.0 [facility] Comment on above: Performed By: #### P T, RAFFAELE, MG, CBC, CPBILC #### [facility] [address] [place] [address] Sample Case Porter: Pete Ward MD Bilirubin.indirect [Mass/Vol] 0.5 mg/dL High <0.3 [facility] Comment on above: Performed By: #### P T, RAFFAELE, MG, CBC, CPBILC #### [address] [address] Sample Case Porter: Pete Ward MD Calcium [Mass/Vol] 9.9 mg/dL Normal 8.6-10.4 [facility] Comment on above: Performed By: #### P T, RAFFAELE, MG, CBC, CPBILC #### [place] [address] Sample Case Porter: Pete Ward MD Chloride [Moles/Vol] 106 mmol/L Normal 98-107 [facility] Comment on above: Performed By: #### P T, RAFFAELE, MG, CBC, CPBILC #### [address] [address] Sample Case Porter: Pete Ward MD CO2 [Moles/Vol] 37 mmol/L High 20-31 [facility] Comment on above: Performed By: #### P T, RAFFAELE, MG, CBC, CPBILC #### [address] [address] Sample Case Porter: Pete Ward MD Creatinine [Mass/Vol] 0.6 mg/dL Low 0.7-1.2 [facility] Comment on above: Performed By: #### P T, RAFFAELE, MG, CBC, CPBILC #### [place] [address] Sample Case Porter: Pete Ward MD GFR/1.73 sq M.predicted among non-blacks MDRD (S/P/Bld) [Vol rate/Area] mL/min/{1.73_m2} Normal >60 [facility] Comment on above: Result Comment: These results [...] P T, RAFFAELE, MG, CBC, CPBILC #### [facility] [address] [place] [address] Sample Case Porter: Pete Ward MD Glucose [Mass/Vol] 80 mg/dL Normal 70-99 [facility] Comment on above: Performed By: #### P T, RAFFAELE, MG, CBC, CPBILC #### [address] [address] Sample Case Porter: Pete Ward MD Potassium [Moles/Vol] 3.8 mmol/L Normal 3.7-5.3 [facility] Comment on above: Performed By: #### P T, RAFFAELE, MG, CBC, CPBILC #### [address] [address] Sample Case Porter: Pete Ward MD Protein [Mass/Vol] 6.7 g/dL Normal 6.4-8.3 [facility] Comment on above: Performed By: #### P T, RAFFAELE, MG, CBC, CPBILC #### [facility] [address] [place] [address] Sample Case Porter: Pete Ward MD Sodium [Moles/Vol] 150 mmol/L High 135-144 [facility] Comment on above: Performed By: #### P T, RAFFAELE, MG, CBC, CPBILC #### [facility] [address] [place] [address] Sample Case Porter: Pete Ward MD Urea nitrogen [Mass/Vol] 28 mg/dL High 8-23 [facility] Comment on above: Performed By: #### P T, RAFFAELE, MG, CBC, CPBILC #### [address] [address] Sample Case Porter: Pete Ward MD Magnesiumon 03-29-2023 Magnesium [Mass/Vol] 2.3 mg/dL Normal 1.6-2.6 [facility] Comment on above: Performed By: #### P T, RAFFAELE, MG, CBC, CPBILC #### [address] [address] Sample Case Porter: Pete Ward MD PTon 03-29-2023 INR Coag (PPP) [Relative time] 1.5 {INR} Normal [facility] Comment on above: Result Comment: Therapeutic Range: Moderate Anticoagulant Intensity: INR = 2.0-3.0 High Anticoagulant Intensity: INR = 2.5-3.5 Performed By: #### P T, RAFFAELE, MG, CBC, CPBILC #### [address] [address] Sample Case Porter: Pete Ward MD PT Coag (PPP) [Time] 18.1 s High 11.7-14.9 [facility] Comment on above: Performed By: #### P T, RAFFAELE, MG, CBC, CPBILC #### [address] [address] Sample Case Porter: Pete Ward MD Basic Metabolic Profon 03-28 Anion gap [Moles/Vol] 7 mmol/L Low 9-17 [facility] Comment on above: Performed By: #### P T, RAFFAELE, MG, CBC, CPBILC #### [address] [address] Sample Case Porter: Pete Ward MD Calcium [Mass/Vol] 9.8 mg/dL Normal 8.6-10.4 [facility] Comment on above: Performed By: #### P T, RAFFAELE, MG, CBC, CPBILC #### [facility] [address] [place] [address] Sample Case Porter: Pete Ward MD Chloride [Moles/Vol] 105 mmol/L Normal 98-107 [facility] Comment on above: Performed By: #### P T, RAFFAELE, MG, CBC, CPBILC #### [facility] [address] [place] [address] Sample Case Porter: Pete Ward MD CO2 [Moles/Vol] 34 mmol/L High 20-31 [facility] Comment on above: Performed By: #### P T, RAFFAELE, MG, CBC, CPBILC #### [facility] [address] [place] [address] Sample Case Porter: Pete Ward MD Creatinine [Mass/Vol] 0.6 mg/dL Low 0.7-1.2 [facility] Comment on above: Performed By: #### P T, RAFFAELE, MG, CBC, CPBILC #### [address] [address] Sample Case Porter: Pete Ward MD GFR/1.73 sq M.predicted among non-blacks MDRD (S/P/Bld) [Vol rate/Area] mL/min/{1.73_m2} Normal >60 [facility] Comment on above: Result Comment: These results [...] P T, RAFFAELE, MG, CBC, CPBILC #### [facility] [address] [place] [address] Sample Case Porter: Pete Ward MD Glucose [Mass/Vol] 91 mg/dL Normal 70-99 [facility] Comment on above: Performed By: #### P T, RAFFAELE, MG, CBC, CPBILC #### [facility] [address] [place] [address] [phone] Sample Case Porter: Pete Ward MD Potassium [Moles/Vol] 3.5 mmol/L Low 3.7-5.3 [facility] Comment on above: Performed By: #### P T, RAFFAELE, MG, CBC, CPBILC #### [address] [address] Sample Case Porter: Pete Ward MD Sodium [Moles/Vol] 146 mmol/L High 135-144 [facility] Comment on above: Performed By: #### P T, RAFFAELE, MG, CBC, CPBILC #### [facility] [address] [place] [address] Sample Case Porter: Pete Ward MD Urea nitrogen [Mass/Vol] 27 mg/dL High 8-23 [facility] Comment on above: Performed By: #### P T, RAFFAELE, MG, CBC, CPBILC #### [facility] [address] [place] [address] Sample Case Porter: Pete Ward MD CBCon 03-28-2023 Erythrocyte distribution width (RBC) [Ratio] 21.9 % High 11.8-14.4 [facility] Comment on above: Performed By: #### P T, RAFFAELE, MG, CBC, CPBILC #### [facility] [address] [place] [address] Sample Case Porter: Pete Ward MD Hematocrit (Bld) [Volume fraction] 36.5 % Low 40.7-50.3 [facility] Comment on above: Performed By: #### P T, RAFFAELE, MG, CBC, CPBILC #### [address] [address] Sample Case Porter: Pete Ward MD Hemoglobin (Bld) [Mass/Vol] 9.8 g/dL Low 13.0-17.0 [facility] Comment on above: Performed By: #### P T, RAFFAELE, MG, CBC, CPBILC #### [address] [address] Sample Case Porter: Pete Ward MD MCH (RBC) [Entitic mass] 22.5 pg Low 25.2-33.5 [facility] Comment on above: Performed By: #### P T, RAFFAELE, MG, CBC, CPBILC #### [address] [address] Sample Case Porter: Pete Ward MD MCHC (RBC) [Mass/Vol] 26.8 g/dL Low 28.4-34.8 [facility] Comment on above: Performed By: #### P T, RAFFAELE, MG, CBC, CPBILC #### [place] [address] Sample Case Porter: Pete Ward MD MCV (RBC) [Entitic vol] 83.9 fL Normal 82.6-102.9 M [facility] Comment on above: Performed By: #### P T, RAFFAELE, MG, CBC, CPBILC #### [address] [address] Sample Case Porter: Pete Ward MD NRBC Automated 0.0 per 100 WBC Normal 0.0 [facility] Comment on above: Performed By: #### P T, RAFFAELE, MG, CBC, CPBILC #### [address] [id number] Sample Case Porter: Pete Ward MD Platelet mean volume (Bld) [Entitic vol] 11.3 fL Normal 8.1-13.5 [facility] Comment on above: Performed By: #### P T, RAFFAELE, MG, CBC, CPBILC #### [address] [address] Sample Case Porter: Pete Ward MD Platelets (Bld) [#/Vol] 340 10*3/uL Normal 138-453 [facility] Comment on above: Performed By: #### P T, RAFFAELE, MG, CBC, CPBILC #### [facility] [address] [place] [address] Sample Case Porter: Pete Ward MD RBC (Bld) [#/Vol] 4.35 10*6/uL Normal 4.21-5.77 [facility] Comment on above: Performed By: #### P T, RAFFAELE, MG, CBC, CPBILC #### [address] [address] Sample Case Porter: Pete Ward MD WBC (Bld) [#/Vol] 8.5 10*3/uL Normal 3.5-11.3 [facility] Comment on above: Performed By: #### P T, RAFFAELE, MG, CBC, CPBILC #### [address] [address] Sample Case Porter: Pete Ward MD FL MODIFIED BARIUM SWALLOW W VIDEOon 03-28-2023 FL MODIFIED BARIUM SWALLOW W VIDEO EXAMINATION: MODIFIED BARIUM SWALLOW WAS PERFORMED IN CONJUNCTION WITH SPEECH PATHOLOGY SERVICES TECHNIQUE: Under fluoroscopic evaluation cineradiography/video radiography recordings were performed in conjunction with the speech-language pathologist (INSULATION C[employer]). Various liquid, solid and/or semi-solid barium preparations [...] MD 03/28/23 Final result Normal [facility] Lipid Profileon 03-28-2023 Cholesterol [Mass/Vol] 135 mg/dL Normal <200 [facility] Comment on above: Result Comment: Cholesterol Guidelines: <200 Desirable 200-240 Borderline >240 Undesirable Performed By: #### P T, RAFFAELE, MG, CBC, CPBILC #### [place] [id number] Sample Case Porter: Pete Ward MD Cholesterol in HDL [Mass/Vol] 46 mg/dL Normal >40 [facility] Comment on above: Result Comment: HDL Guidelines: <40 Undesirable 40-59 Borderline >59 Desirable Performed By: #### P T, RAFFAELE, MG, CBC, CPBILC #### [place] [id number] Sample Case Porter: Pete Ward MD Cholesterol in LDL [Mass/Vol] 69 mg/dL Normal 0-130 [facility] Comment on above: Result Comment: LDL Guidelines: <100 Desirable 100-129 Near to/above Desirable 130-159 Borderline >159 Undesirable Direct (measured) LDL and calculated LDL are not interchangeable tests. Performed By: #### P T, RAFFAELE, MG, CBC, CPBILC #### [facility] [address] [place] [address] Sample Case Porter: Pete Ward MD Cholesterol.total/Cholest connor in HDL [Mass ratio] 2.9 {ratio} Normal <5 [facility] Comment on above: Performed By: #### P T, RAFFAELE, MG, CBC, CPBILC #### [facility] [address] [place], [place] [id number] Sample Case Porter: Pete Ward MD Triglyceride [Mass/Vol] 101 mg/dL Normal <150 M [facility] Comment on above: Result Comment: Triglyceride Guidelines: <150 Desirable 150-199 Borderline 200-499 High >499 Very high Based on AHA Guidelines for fasting triglyceride, March 2012. Performed By: #### P T, RAFFAELE, MG, CBC, CPBILC #### [address] [place] [address] Sample Case Porter: Pete Ward MD XR ABDOMEN FOR NG/OG/NE [...] MD 03/28/23 Final result Normal [facility] Ammoniaon 03-27-2023 Ammonia (P) [Moles/Vol] 31 umol/L Normal 16-60 M [facility] Comment on above: Performed By: #### P T, RAFFAELE, MG, CBC, CPBILC #### [facility] [place], [place] [id number] Sample Case Porter: Pete Ward MD Arterial Blood Gaseson 03-27 John Test PASS Normal [facility] Comment on above: Performed By: #### H H #### [facility] [address] [place] [address] Sample Case Porter: Torres Rick MD Body Temp. [address] [facility] Comment on above: Performed By: #### H H #### [facility] [address] [place], [place] [id number] Sample Case Porter: Torres Rick MD HCO3 (Bld) [Moles/Vol] 35.7 mmol/L High 22-26 M [facility] Comment on above: Performed By: #### H H #### [facility] [address] [place] [id number] Sample Case Porter: Torres Rick MD O2 Device/Flow/% Cannula Normal [facility] Comment on above: Performed By: #### H H #### [facility] [address] [place], [place] [id number] Sample Case Porter: Torres Rick MD Oxygen (Bld) [Partial pressure] 62.7 mm[Hg] Low 80-100 [facility] Comment on above: Performed By: #### H H #### [facility] [address] [place], [place] 8063483 Sample Case Porter: Torres Rick MD Oxygen saturation in Blood 91.1 % Low 95-98 [facility] Comment on above: Performed By: #### H H #### [facility] [address] [place] [id number] Sample Case Porter: Torres Rick MD pCO2 56.5 mmHg High 35-45 [facility] Comment on above: Performed By: #### H H #### [facility] [address] [place] [id number] Sample Case Porter: Torres Rick MD pH (Bld) 7.408 [pH] Normal 7.35-7.45 [facility] Comment on above: Performed By: #### H H #### [facility] [address] [place], [place] 8546983 Sample Case Porter: Torres Rick MD Positive Base Excess 9.1 mmol/L High 0.0-2.0 [facility] Comment on above: Performed By: #### H H #### [facility] [address] [place] [address] Sample Case Porter: Torres Rick MD Pt. Position SEMI-FOWLERS Normal [facility] Comment on above: Performed By: #### H H #### [facility] [address] [place], [facility] Sample Case Porter: Torres Rick MD Site Drawn Right Brachial Artery Normal [facility] Comment on above: Performed By: #### H H #### [facility] [address] [place] [address] Sample Case Porter: Torres Rick MD CBC with Diffon 03-27-2023 Abs. Basophil 0.00 k/uL Normal 0.0-0.2 [facility] Comment on above: Performed By: #### P T, RAFFAELE, MG, CBC, CPBILC #### [address] [address] Sample Case Porter: Pete Ward MD Abs.Imm.Granulocyte 0.00 k/uL Normal 0.00-0.30 [facility] Comment on above: Performed By: #### P T, RAFFAELE, MG, CBC, CPBILC #### [address] [address] Sample Case Porter: Pete Ward MD Abs.Neutrophil (Seg) 7.65 k/uL Normal 1.8-7.7 [facility] Comment on above: Performed By: #### P T, RAFFAELE, MG, CBC, CPBILC #### [address] [address] Sample Case Porter: Pete Ward MD Basophils/100 WBC (Bld) 0 % Normal 0-2 M [facility] Comment on above: Performed By: #### P T, RAFFAELE, MG, CBC, CPBILC #### [address] [address] Sample Case Porter: Pete Ward MD Eosinophils (Bld) [#/Vol] 0.00 10*3/uL Normal 0.0-0.4 [facility] Comment on above: Performed By: #### P T, RAFFAELE, MG, CBC, CPBILC #### [place] [address] Sample Case Porter: Peet Ward MD Eosinophils/100 WBC (Bld) 0 % Low 1-4 [facility] Comment on above: Performed By: #### P T, RAFFAELE, MG, CBC, CPBILC #### [place] [address] Sample Case Porter: Pete Ward MD Immature granulocytes/100 WBC (Bld) 0 % Normal 0 [facility] Comment on above: Performed By: #### P T, RAFFAELE, MG, CBC, CPBILC #### [place] [address] Sample Case Porter: Pete Ward MD Lymphocytes (Bld) [#/Vol] 0.50 10*3/uL Low 1.0-4.8 [facility] Comment on above: Performed By: #### P T, RAFFAELE, MG, CBC, CPBILC #### [place] [address] Sample Case Porter: Pete Ward MD Lymphocytes/100 WBC (Bld) 6 % Low 24-44 [facility] Comment on above: Performed By: #### P T, RAFFAELE, MG, CBC, CPBILC #### [address] [address] Sample Case Porter: Pete Ward MD Monocytes (Bld) [#/Vol] 0.25 10*3/uL Normal 0.1-0.8 [facility] Comment on above: Performed By: #### P T, RAFFAELE, MG, CBC, CPBILC #### [address] [address] Sample Case Porter: Pete Ward MD Monocytes/100 WBC (Bld) 3 % Normal 1-7 M [facility] Comment on above: Performed By: #### P T, RAFFAELE, MG, CBC, CPBILC #### [address] [address] Sample Case Porter: Pete Ward MD Morphology Luis (Bld) [Interp] ANISOCYTOSIS PRESENT Normal [facility] Comment on above: Result Comment: HYPO CHROMIA PRESENT 1+ ELLIPTOCYTES Performed By: #### P T, RAFFAELE, MG, CBC, CPBILC #### [address] [address] Sample Case Porter: Pete Ward MD Neutrophil (Seg) 91 % High 36-66 [facility] Comment on above: Performed By: #### P T, RAFFAELE, MG, CBC, CPBILC #### [address] [address] Sample Case Porter: Pete Ward MD Erythrocyte distribution width (RBC) [Ratio] 22.4 % High 11.8-14.4 [facility] Comment on above: Performed By: #### P T, RAFFAELE, MG, CBC, CPBILC #### [address] [address] Sample Case Porter: Pete Ward MD Hematocrit (Bld) [Volume fraction] 38.1 % Low 40.7-50.3 [facility] Comment on above: Performed By: #### P T, RAFFAELE, MG, CBC, CPBILC #### [address] [address] Sample Case Porter: Pete Ward MD Hemoglobin (Bld) [Mass/Vol] 10.3 g/dL Low 13.0-17.0 [facility] Comment on above: Performed By: #### P T, RAFFAELE, MG, CBC, CPBILC #### [address] [id number] Sample Case Porter: Pete Ward MD MCH (RBC) [Entitic mass] 22.3 pg Low 25.2-33.5 [facility] Comment on above: Performed By: #### P T, RAFFAELE, MG, CBC, CPBILC #### [place] [address] Sample Case Porter: Pete Ward MD MCHC (RBC) [Mass/Vol] 27.0 g/dL Low 28.4-34.8 [facility] Comment on above: Performed By: #### P T, RAFFAELE, MG, CBC, CPBILC #### [place] [address] Sample Case Porter: Pete Ward MD MCV (RBC) [Entitic vol] 82.6 fL Normal 82.6-102.9 M [facility] Comment on above: Performed By: #### P T, RAFFAELE, MG, CBC, CPBILC #### [place] [address] Sample Case Porter: Pete Ward MD NRBC Automated 0.0 per 100 WBC Normal 0.0 [facility] Comment on above: Performed By: #### P T, RAFFAELE, MG, CBC, CPBILC #### [place] [address] Sample Case Porter: Pete Ward MD Platelet mean volume (Bld) [Entitic vol] 11.5 fL Normal 8.1-13.5 [facility] Comment on above: Performed By: #### P T, RAFFAELE, MG, CBC, CPBILC #### [facility] [address] [place] [address] Sample Case Porter: Pete Ward MD Platelets (Bld) [#/Vol] 432 10*3/uL Normal 138-453 [facility] Comment on above: Performed By: #### P T, RAFFAELE, MG, CBC, CPBILC #### [facility] [place] [address] Sample Case Porter: Pete Ward MD RBC (Bld) [#/Vol] 4.61 10*6/uL Normal 4.21-5.77 [facility] Comment on above: Performed By: #### P T, RAFFAELE, MG, CBC, CPBILC #### [facility] [address] [place] [address] Sample Case Porter: Pete Ward MD WBC (Bld) [#/Vol] 8.4 10*3/uL Normal 3.5-11.3 [facility] Comment on above: Performed By: #### P T, RAFFAELE, MG, CBC, CPBILC #### [facility] [address] [place] [address] Sample Case Porter: Pete Ward MD CTA HEAD NECK W [...] Phil Villegas MD 03/27/[address] [facility] Calcium, Ionicon 03-27-2023 Calcium [Moles/Vol] 1.25 mmol/L Normal 1.13-1.33 [facility] Comment on above: Performed By: #### P T, RAFFAELE, MG, CBC, CPBILC #### [address] [address] Sample Case Porter: Pete Ward MD Comp Metabolic Pr/rfx MGon 1 - Albumin [Mass/Vol] 3.4 g/dL Low 3.5-5.2 [facility] Comment on above: Performed By: #### P T, RAFFAELE, MG, CBC, CPBILC #### [address] [address] Sample Case Porter: Pete Ward MD Albumin/Glob Ratio 0.9 Low 1.0-2.5 [facility] Comment on above: Performed By: #### P T, RAFFAELE, MG, CBC, CPBILC #### [address] [address] Sample Case Porter: Pete Ward MD Alkaline Phos 79 U/L Normal 40-129 [facility] Comment on above: Performed By: #### P T, RAFFAELE, MG, CBC, CPBILC #### [address] [address] Sample Case Porter: Pete Ward MD ALT [Catalytic activity/Vol] 28 U/L Normal 5-41 [facility] Comment on above: Performed By: #### P T, RAFFAELE, MG, CBC, CPBILC #### [address] [address] Sample Case Porter: Pete Ward MD Anion gap [Moles/Vol] 11 mmol/L Normal 9-17 [facility] Comment on above: Performed By: #### P T, RAFFAELE, MG, CBC, CPBILC #### [address] [address] Sample Case Porter: Pete Ward MD AST [Catalytic activity/Vol] 44 U/L High <40 [facility] Comment on above: Performed By: #### P T, RAFFAELE, MG, CBC, CPBILC #### [address] [address] Sample Case Porter: Pete Ward MD Bilirubin [Mass/Vol] 0.6 mg/dL Normal 0.3-1.2 [facility] Comment on above: Performed By: #### P T, RAFFAELE, MG, CBC, CPBILC #### [address] [address] Sample Case Porter: Pete Ward MD Calcium [Mass/Vol] 10.5 mg/dL High 8.6-10.4 [facility] Comment on above: Performed By: #### P T, RAFFAELE, MG, CBC, CPBILC #### [place] [address] Sample Case Porter: Pete Ward MD Chloride [Moles/Vol] 101 mmol/L Normal 98-107 [facility] Comment on above: Performed By: #### P T, RAFFAELE, MG, CBC, CPBILC #### [address] [address] Sample Case Porter: Pete Ward MD CO2 [Moles/Vol] 33 mmol/L High 20-31 [facility] Comment on above: Performed By: #### P T, RAFFAELE, MG, CBC, CPBILC #### [address] [address] Sample Case Porter: Pete Ward MD Creatinine [Mass/Vol] 0.6 mg/dL Low 0.7-1.2 [facility] Comment on above: Performed By: #### P T, RAFFAELE, MG, CBC, CPBILC #### [place] [address] Sample Case Porter: Pete Ward MD GFR/1.73 sq M.predicted among non-blacks MDRD (S/P/Bld) [Vol rate/Area] mL/min/{1.73_m2} Normal >60 [facility] Comment on above: Result Comment: These results [...] P T, RAFFAELE, MG, CBC, CPBILC #### [facility] [address] [place] [address] Sample Case Porter: Pete Ward MD Glucose [Mass/Vol] 111 mg/dL High 70-99 [facility] Comment on above: Performed By: #### P T, RAFFAELE, MG, CBC, CPBILC #### [facility] [address] [place] [address] Sample Case Porter: Pete Ward MD Potassium [Moles/Vol] 3.8 mmol/L Normal 3.7-5.3 [facility] Comment on above: Performed By: #### P T, RAFFAELE, MG, CBC, CPBILC #### [facility] [address] [place] [address] Sample Case Porter: Pete Ward MD Protein [Mass/Vol] 7.3 g/dL Normal 6.4-8.3 [facility] Comment on above: Performed By: #### P T, RAFFAELE, MG, CBC, CPBILC #### [facility] [address] [place] [id number] Sample Case Porter: Pete Ward MD Sodium [Moles/Vol] 145 mmol/L High 135-144 [facility] Comment on above: Performed By: #### P T, RAFFAELE, MG, CBC, CPBILC #### [address] [address] Sample Case Porter: Pete Ward MD Urea nitrogen [Mass/Vol] 26 mg/dL High 8-23 [facility] Comment on above: Performed By: #### P T, RAFFAELE, MG, CBC, CPBILC #### [address] [address] Sample Case Porter: Pete Ward MD Albumin [Mass/Vol] 3.5 g/dL Normal 3.5-5.2 [facility] Comment on above: Performed By: #### F EBC #### [address] [address] Sample Case Porter: Pete Ward MD #### CDP #### [address] [place] [id number] ( Sample Case Porter: Torres Rick MD Albumin/Glob Ratio 0.9 Low 1.0-2.5 [facility] Comment on above: Performed By: #### F EBC #### [address] [address] Sample Case Porter: Pete Ward MD #### CDP #### [facility] [address] [place] [address] [place]. [place] [phone] Sample Case Porter: Torres Rick MD Alkaline Phos 78 U/L Normal 40-129 [facility] Comment on above: Performed By: #### F EBC #### [address] [address] Sample Case Porter: Pete Ward MD #### CDP #### [facility] [address] [place] [address] Sample Case Porter: Torres Rick MD ALT [Catalytic activity/Vol] 20 U/L Normal 5-41 [facility] Comment on above: Performed By: #### F EBC #### [address] [address] Sample Case Porter: Pete Ward MD #### CDP #### [facility] [address] [place], [place] 1027583 Sample Case Porter: Torres Rick MD Anion gap [Moles/Vol] 8 mmol/L Low 9-17 [facility] Comment on above: Performed By: #### F EBC #### [address] [address] Sample Case Porter: Pete Ward MD #### CDP #### [facility] [address] [place], [place] 102[address] Sample Case Porter: Torres Rick MD AST [Catalytic activity/Vol] 33 U/L Normal <40 [facility] Comment on above: Performed By: #### F EBC #### [address] [address] Sample Case Porter: Pete Ward MD #### CDP #### [facility] [address] [place] [address] Dr. [place], [place] [phone] Sample Case Porter: Torres Rick MD Bilirubin [Mass/Vol] 0.5 mg/dL Normal 0.3-1.2 [facility] Comment on above: Performed By: #### F EBC #### [address] [address] Sample Case Porter: Pete Ward MD #### CDP #### [facility] [address] [place], [place] [phone] Sample Case Porter: Torres Rick MD BUN/CRE Ratio 40 High 9-20 [facility] Comment on above: Performed By: #### F EBC #### [address] [address] Sample Case Porter: Pete Ward MD #### CDP #### [facility] [address] [place], [place] 3907483 Sample Case Porter: Torres Rick MD Calcium [Mass/Vol] 10.6 mg/dL High 8.6-10.4 [facility] Comment on above: Performed By: #### F EBC #### [address] [address] Sample Case Porter: Pete Ward MD #### CDP #### [facility] [address] [place], [place] [phone] Sample Case Porter: Torres Rick MD Chloride [Moles/Vol] 105 mmol/L Normal 98-107 [facility] Comment on above: Performed By: #### F EBC #### [address] [address] Sample Case Porter: Pete Ward MD #### CDP #### [address] [place], [place] [phone] Sample Case Porter: Torres Rick MD CO2 [Moles/Vol] 35 mmol/L High 20-31 [facility] Comment on above: Performed By: #### F EBC #### [address] [address] Sample Case Porter: Pete Ward MD #### CDP #### [facility] [address] [place] [address] [place]. [place], [place] [phone] Sample Case Porter: Torres Rick MD Creatinine [Mass/Vol] 0.5 mg/dL Low 0.7-1.2 [facility] Comment on above: Performed By: #### F EBC #### [address] [address] Sample Case Porter: Pete Ward MD #### CDP #### [facility] [address] [place] [address] [place] [address] Sample Case Porter: Torres Rick MD GFR/1.73 sq M.predicted among non-blacks MDRD (S/P/Bld) [Vol rate/Area] mL/min/{1.73_m2} Normal >60 [facility] Comment on above: Result Comment: These [...] secretion. Performed By: #### F EBC #### [address] [id number] Sample Case Porter: Pete Ward MD #### CDP #### [address] [place] [address] Sample Case Porter: Torres Rick MD Glucose [Mass/Vol] 88 mg/dL Normal 70-99 [facility] Comment on above: Performed By: #### F EBC #### [address] [address] Sample Case Porter: Pete Ward MD #### CDP #### [address] [place] [address] Sample Case Porter: Torres Rick MD Potassium [Moles/Vol] 3.6 mmol/L Low 3.7-5.3 [facility] Comment on above: Performed By: #### F EBC #### [address] [address] Sample Case Porter: Pete Ward MD #### CDP #### [facility] [address] [place] [address] [place] [address] Sample Case Porter: Torres Rick MD Protein [Mass/Vol] 7.2 g/dL Normal 6.4-8.3 [facility] Comment on above: Performed By: #### F EBC #### [address] [place] [address] Sample Case Porter: Pete Ward MD #### CDP #### [facility] [address] [place], [place] 6728083 Sample Case Porter: Torres Rick MD Sodium [Moles/Vol] 148 mmol/L High 135-144 [facility] Comment on above: Performed By: #### F EBC #### [address] [address] Sample Case Porter: Pete Ward MD #### CDP #### [facility] [address] [place] [address] Dr. [place], [place] [phone] Sample Case Porter: Torres Rick MD Urea nitrogen [Mass/Vol] 20 mg/dL Normal 8-23 [facility] Comment on above: Performed By: #### F EBC #### [address] [address] Sample Case Porter: Pete Ward MD #### CDP #### [facility] [address] [place] [address] Dr. [place], [place] [phone] Sample Case Porter: Torres Rick MD Hemoglobin A1Con 03-27-2023 Glucose [Mass/Vol] 94 mg/dL Normal [facility] Comment on above: Result Comment: The ADA and AACC recommend providing the estimated average glucose result to permit better patient understanding of their HBA1c result. Performed By: #### P T, RAFFAELE, MG, CBC, CPBILC #### [address] [address] Sample Case Porter: Pete Ward MD HbA1c (Bld) [Mass fraction] 4.9 % Normal 4.0-6.0 [facility] Comment on above: Performed By: #### P T, RAFFAELE, MG, CBC, CPBILC #### [facility] [address] [place] [address] Sample Case Porter: Pete Ward MD Magnesiumon 03-27-2023 Magnesium [Mass/Vol] 2.1 mg/dL Normal 1.6-2.6 [facility] Comment on above: Performed By: #### P T, RAFFAELE, MG, CBC, CPBILC #### [address] [address] Sample Case Porter: Pete Ward MD PTon 03-27-2023 INR Coag (PPP) [Relative time] 1.4 {INR} Normal [facility] Comment on above: Result Comment: Therapeutic Range: Moderate Anticoagulant Intensity: INR = 2.0-3.0 High Anticoagulant Intensity: INR = 2.5-3.5 Performed By: #### P T, RAFFAELE, MG, CBC, CPBILC #### [address] [address] Sample Case Porter: Pete Ward MD PT Coag (PPP) [Time] 17.1 s High 11.7-14.9 [facility] Comment on above: Performed By: #### P T, RAFFAELE, MG, CBC, CPBILC #### [facility] [address] [place] [address] Sample Case Porter: Pete Ward MD Phosphorus, Inorg.on 023 Phosphorus, Inorg. 4.2 mg/dL Normal 2.5-4.5 [facility] Comment on above: Performed By: #### P T, RAFFAELE, MG, CBC, CPBILC #### [facility] [address] [place] [address] Sample Case Porter: Pete Ward MD Procalcitoninon 03-27-2023 Procalcitonin 0.03 ng/mL Normal <0.09 [facility] Comment on above: Result Comment: Suspected Sepsis: [...] entered into the Change in Procalcitonin Calculator ([email or web address]) to determine the patient's Mortality Risk Prognosis In healthy neonates, plasma Procalcitonin (PCT) concentrations increase gradually after , reaching peak values at about 24 hours of age then decrease to normal values below 0.5 ng/mL by 48-72 hours of age. Performed By: #### P T, RAFFAELE, MG, CBC, CPBILC #### [facility] [place], [place] 1532208 Sample Case Porter: Pete Ward MD TSH w/reflex to FT4on 2022 Thyroid Stim. Horm. 0.78 uIU/mL Normal 0.30-5.00 [facility] Comment on above: Performed By: #### P T, RAFFAELE, MG, CBC, CPBILC #### [facility] [place], [place] 6944008 Sample Case Porter: Pete Ward MD Arterial Blood Gaseson 03-26 John Test PASS [facility] Comment on above: Performed By: #### H H #### [facility] [address] [place] [address] Sample Case Porter: Torres Rick MD Body Temp. 37 [facility] Comment on above: Performed By: #### H H #### [facility] [address] [place] [address] Sample Case Porter: Torres Rick MD HCO3 (Bld) [Moles/Vol] 35.9 mmol/L High 22-26 [facility] Comment on above: Performed By: #### H H #### [facility] [address] [place] [phone] Sample Case Porter: Torres Rick MD O2 Device/Flow/% Cannula Normal [facility] Comment on above: Result Comment: 2 Performed By: #### H H #### [facility] [address] [place] [phone] Sample Case Porter: Torres Rick MD Oxygen (Bld) [Partial pressure] 54.0 mm[Hg] Low 80-100 [facility] Comment on above: Performed By: #### H H #### [facility] [address] [place] [phone] Sample Case Porter: Torres Rick MD Oxygen saturation in Blood 87.4 % Low 95-98 [facility] Comment on above: Performed By: #### H H #### [facility] [address] [place] [phone] Sample Case Porter: Torres Rick MD pCO2 54.8 mmHg High 35-45 [facility] Comment on above: Performed By: #### H H #### [facility] [address] [place] [phone] Sample Case Porter: Torres Rick MD pH (Bld) 7.425 [pH] Normal 7.35-7.45 [facility] Comment on above: Performed By: #### H H #### [facility] [address] [place] [phone] Sample Case Porter: Torres Rick MD Positive Base Excess 9.9 mmol/L High 0.0-2.0 [facility] Comment on above: Performed By: #### H H #### [facility] [address] [place] [phone] Sample Case Porter: Torres Rick MD Respiratory rate 22 /min Normal [facility] Comment on above: Performed By: #### H H #### [address] [place], [place] [phone] Sample Case Porter: Torres Rick MD Site Drawn Right Brachial Artery Normal [facility] Comment on above: Performed By: #### H H #### [address] [place], [place] [phone] Sample Case Porter: Torres Rick MD CBCon 03-26-2023 Erythrocyte distribution width (RBC) [Ratio] 22.0 % High 11.8-14.4 [facility] Comment on above: Performed By: #### F EBC #### [address] [address] Sample Case Porter: Pete Ward MD #### CDP #### [address] [place], [place] [phone] Sample Case Porter: Torres Rick MD Hematocrit (Bld) [Volume fraction] 34.4 % Low 40.7-50.3 [facility] Comment on above: Performed By: #### F EBC #### [address] [address] Sample Case Porter: Pete Ward MD #### CDP #### [address] [place], [place] [phone] Sample Case Porter: Torres Rick MD Hemoglobin (Bld) [Mass/Vol] 9.3 g/dL Low 13.0-17.0 [facility] Comment on above: Performed By: #### F EBC #### [address] [address] Sample Case Porter: Pete Ward MD #### CDP #### [address] [place], [place] [phone] Sample Case Porter: Torres Rick MD MCH (RBC) [Entitic mass] 22.4 pg Low 25.2-33.5 [facility] Comment on above: Performed By: #### F EBC #### [address] [address] Sample Case Porter: Pete Ward MD #### CDP #### [address] [place] [address] Sample Case Porter: Torres Rick MD MCHC (RBC) [Mass/Vol] 27.0 g/dL Low 28.4-34.8 [facility] Comment on above: Performed By: #### F EBC #### [address] [id number] Sample Case Porter: Pete Ward MD #### CDP #### [address] [place] [address] Sample Case Porter: Torres Rick MD MCV (RBC) [Entitic vol] 82.9 fL Normal 82.6-102.9 [facility] Comment on above: Performed By: #### F EBC #### [address] [id number] Sample Case Porter: Pete Ward MD #### CDP #### [address] [place] [address] Sample Case Porter: Torres Rick MD NRBC Automated 0.2 per [address] [facility] Comment on above: Performed By: #### F EBC #### [address] [address] Sample Case Porter: Pete Ward MD #### CDP #### [address] [place], [place] [id number] Sample Case Porter: Torres Rick MD Platelet mean volume (Bld) [Entitic vol] 11.8 fL Normal 8.1-13.5 [facility] Comment on above: Performed By: #### F EBC #### [address] [place] [address] Sample Case Porter: Pete Ward MD #### CDP #### [facility] [address] [place], [place] [id number] Sample Case Porter: Torres Rick MD Platelets (Bld) [#/Vol] 406 10*3/uL Normal 138-453 [facility] Comment on above: Performed By: #### F EBC #### [address] [address] Sample Case Porter: Pete Ward MD #### CDP #### [facility] [address] [place] [address] Dr. [place] [phone] Sample Case Porter: Torres Rick MD RBC (Bld) [#/Vol] 4.15 10*6/uL Low 4.21-5.77 [facility] Comment on above: Performed By: #### F EBC #### [address] [place] [address] Sample Case Porter: Pete Ward MD #### CDP #### [facility] [address] [place] [address] Dr. [place] [phone] Sample Case Porter: Torres Rick MD WBC (Bld) [#/Vol] 12.3 10*3/uL High 3.5-11.3 [facility] Comment on above: Performed By: #### F EBC #### [address] [place] [address] Sample Case Porter: Pete Ward MD #### CDP #### [facility] [address] [place], [place] [id number] Sample Case Porter: Torres Rick MD Comp Metabolic Pr/rfx MGon 1 - Albumin [Mass/Vol] 3.6 g/dL Normal 3.5-5.2 [facility] Comment on above: Performed By: #### F EBC #### [address] [address] Sample Case Porter: Pete Ward MD #### CDP #### [facility] [address] [place], [place] 3464183 Sample Case Porter: Torres Rick MD Albumin/Glob Ratio 1.0 Normal 1.0-2.5 [facility] Comment on above: Performed By: #### F EBC #### [address] [address] Sample Case Porter: Pete Ward MD #### CDP #### [facility] [address] [place] [address] [place]. [place], [place] [phone] Sample Case Porter: Torres Rick MD Alkaline Phos 77 U/L Normal 40-129 [facility] Comment on above: Performed By: #### F EBC #### [address] [address] Sample Case Porter: Pete Ward MD #### CDP #### [address] [place], [place] [phone] Sample Case Porter: Torres Rick MD ALT [Catalytic activity/Vol] 18 U/L Normal 5-41 [facility] Comment on above: Performed By: #### F EBC #### [address] [address] Sample Case Porter: Pete Ward MD #### CDP #### [facility] [address] [place] [address] Dr. [place], [place] [phone] Sample Case Porter: Torres Rick MD Anion gap [Moles/Vol] 4 mmol/L Low 9-17 [facility] Comment on above: Performed By: #### F EBC #### [address] [place] [address] Sample Case Porter: Pete Ward MD #### CDP #### [facility] [address] [place], [place] [phone] Sample Case Porter: Torres Rick MD AST [Catalytic activity/Vol] 50 U/L High <40 [facility] Comment on above: Performed By: #### F EBC #### [address] [address] Sample Case Porter: Pete Ward MD #### CDP #### [facility] [address] [place] [phone] Sample Case Porter: Torres Rick MD Bilirubin [Mass/Vol] 0.4 mg/dL Normal 0.3-1.2 [facility] Comment on above: Performed By: #### F EBC #### [address] [address] Sample Case Porter: Pete Ward MD #### CDP #### [address] [place], [facility] Sample Case Porter: Torres Rick MD BUN/CRE Ratio 38 High 9-20 [facility] Comment on above: Performed By: #### F EBC #### [address] [address] Sample Case Porter: Pete Ward MD #### CDP #### [facility] [address] [place], [place] [phone] Sample Case Porter: Torres Rick MD Calcium [Mass/Vol] 10.6 mg/dL High 8.6-10.4 [facility] Comment on above: Performed By: #### F EBC #### [address] [address] Sample Case Porter: Pete Ward MD #### CDP #### [facility] [address] [place] [address] [place]. [place], [place] [phone] Sample Case Porter: Torres Rick MD Chloride [Moles/Vol] 106 mmol/L Normal 98-107 [facility] Comment on above: Performed By: #### F EBC #### [facility] [address] [place] [address] Sample Case Porter: Pete Ward MD #### CDP #### [facility] [address] [place], [place] 0056083 Sample Case Porter: Torres Rick MD CO2 [Moles/Vol] 39 mmol/L High 20-31 [facility] Comment on above: Performed By: #### F EBC #### [address] [place] [address] Sample Case Porter: Pete Ward MD #### CDP #### [address] [place], [place] 7999383 Sample Case Porter: Torres Rick MD Creatinine [Mass/Vol] 0.5 mg/dL Low 0.7-1.2 [facility] Comment on above: Performed By: #### F EBC #### [address] [address] Sample Case Porter: Pete Ward MD #### CDP #### [address] [place], [place] 1103983 Sample Case Porter: Torres Rick MD GFR/1.73 sq M.predicted among non-blacks MDRD (S/P/Bld) [Vol rate/Area] mL/min/{1.73_m2} Normal >60 [facility] Comment on above: Result Comment: These [...] secretion. Performed By: #### F EBC #### [address] [address] Sample Case Porter: Pete Ward MD #### CDP #### [address] [place], [place] 5655383 Sample Case Porter: Torres Rick MD Glucose [Mass/Vol] 105 mg/dL High 70-99 [facility] Comment on above: Performed By: #### F EBC #### [address] [address] Sample Case Porter: Pete Ward MD #### CDP #### [address] [place], [place] 0342883 Sample Case Porter: Torres Rick MD Potassium [Moles/Vol] 4.5 mmol/L Normal 3.7-5.3 [facility] Comment on above: Performed By: #### F EBC #### [address] [address] Sample Case Porter: Pete Ward MD #### CDP #### [address] [place], [place] 8354183 Sample Case Porter: Torres Rick MD Protein [Mass/Vol] 7.2 g/dL Normal 6.4-8.3 [facility] Comment on above: Performed By: #### F EBC #### [address] [address] Sample Case Porter: Pete Ward MD #### CDP #### [address] [place], [place] 0827783 Sample Case Porter: Torres Rick MD Sodium [Moles/Vol] 149 mmol/L High 135-144 [facility] Comment on above: Performed By: #### F EBC #### [address], [place] [phone] Sample Case Porter: Pete Ward MD #### CDP #### [facility] [address] [place] [address] Sample Case Porter: Torres Rick MD Urea nitrogen [Mass/Vol] 19 mg/dL Normal 8-23 [facility] Comment on above: Performed By: #### F EBC #### [address] [place] [address] Sample Case Porter: Pete Ward MD #### CDP #### [facility] [address] [place] [address] Sample Case Porter: Torres Rick MD Arterial Blood Gaseson 03-25 [facility] PASS Normal [facility] Comment on above: Performed By: #### A BG #### [facility] [address] [place] [address] Sample Case Porter: Torres Rick MD Body Temp. [address] [facility] Comment on above: Performed By: #### A BG #### [facility] [address] [place] [address] Sample Case Porter: Torres Rick MD HCO3 (Bld) [Moles/Vol] 39.0 mmol/L High 22-26 [facility] Comment on above: Performed By: #### A BG #### [facility] [address] [place] [address] Sample Case Porter: Torres Rick MD O2 Device/Flow/% Cannula Normal [facility] Comment on above: Result Comment: 3 Performed By: #### A BG #### [facility] [address] [place] [address] Sample Case Porter: Torres Rick MD Oxygen (Bld) [Partial pressure] 59.8 mm[Hg] Low 80-100 [facility] Comment on above: Performed By: #### A BG #### [facility] [address] [place], [place] 4573783 Sample Case Porter: Torres Rick MD Oxygen saturation in Blood 90.2 % Low 95-98 [facility] Comment on above: Performed By: #### A BG #### [facility] [address] [place], [place] 8419683 Sample Case Porter: Torres Rick MD pCO2 59.2 mmHg High 35-45 [facility] Comment on above: Performed By: #### A BG #### [facility] [address] [place], [place] 1312383 Sample Case Porter: Torres Rick MD pH (Bld) 7.426 [pH] Normal 7.35-7.45 [facility] Comment on above: Performed By: #### A BG #### [address] [place], [place] 2061283 Sample Case Porter: Torres Rick MD Positive Base Excess 12.5 mmol/L High 0.0-2.0 [facility] Comment on above: Performed By: #### A BG #### [address] [place], [place] 6881583 Sample Case Porter: Torres Rick MD CBCon 03-25-2023 Erythrocyte distribution width (RBC) [Ratio] 21.5 % High 11.8-14.4 [facility] Comment on above: Performed By: #### B 12FOL #### [address] [place] [address] Sample Case Porter: Pete Ward MD Hematocrit (Bld) [Volume fraction] 30.5 % Low 40.7-50.3 [facility] Comment on above: Performed By: #### B 12FOL #### [facility] [address] [place], [place] 7022408 Sample Case Porter: Pete Ward MD Hemoglobin (Bld) [Mass/Vol] 8.4 g/dL Low 13.0-17.0 [facility] Comment on above: Performed By: #### B 12FOL #### [address] [address] Sample Case Porter: Pete Ward MD MCH (RBC) [Entitic mass] 22.8 pg Low 25.2-33.5 [facility] Comment on above: Performed By: #### B 12FOL #### [address] [address] Sample Case Porter: Pete Ward MD MCHC (RBC) [Mass/Vol] 27.5 g/dL Low 28.4-34.8 [facility] Comment on above: Performed By: #### B 12FOL #### [address] [address] Sample Case Porter: Pete Ward MD MCV (RBC) [Entitic vol] 82.9 fL Normal 82.6-102.9 [facility] Comment on above: Performed By: #### B 12FOL #### [address] [address] Sample Case Porter: Pete Ward MD NRBC Automated 0.0 per [address] [facility] Comment on above: Performed By: #### B 12FOL #### [address] [address] Sample Case Porter: Pete Ward MD Platelet mean volume (Bld) [Entitic vol] 11.6 fL Normal 8.1-13.5 [facility] Comment on above: Performed By: #### B 12FOL #### [address] [address] Sample Case Porter: Pete Ward MD Platelets (Bld) [#/Vol] 378 10*3/uL Normal 138-453 [facility] Comment on above: Performed By: #### B 12FOL #### [address] [place], [place] 1710508 Sample Case Porter: Pete Ward MD RBC (Bld) [#/Vol] 3.68 10*6/uL Low 4.21-5.77 [facility] Comment on above: Performed By: #### B 12FOL #### [employer] [address] [place] [address] Sample Case Porter: Pete Ward MD WBC (Bld) [#/Vol] 12.4 10*3/uL High 3.5-11.3 [facility] Comment on above: Performed By: #### B 12FOL #### [employer] [address] [place] [address] Sample Case Porter: Pete Ward MD CT CHEST PULMONARY EMBOLISM [...] Danitza Sharp MD 03/25/[address] [facility] Comp Metabolic Pr/rfx MGon 1 0- Albumin [Mass/Vol] 3.4 g/dL Low 3.5-5.2 [facility] Comment on above: Performed By: #### B 12FOL #### [facility] [address] [place] [address] Sample Case Porter: Pete Ward MD Albumin/Glob Ratio 1.0 Normal 1.0-2.5 [facility] Comment on above: Performed By: #### B 12FOL #### [facility] [address] [place], [place] 5549908 Sample Case Porter: Pete Ward MD Alkaline Phos 82 U/L Normal 40-129 [facility] Comment on above: Performed By: #### B 12FOL #### [employer] [address] [place] [address] Sample Case Porter: Pete Ward MD ALT [Catalytic activity/Vol] 10 U/L Normal 5-41 [facility] Comment on above: Performed By: #### B 12FOL #### [facility] [address] [place] [address] Sample Case Porter: Pete Ward MD Anion gap [Moles/Vol] 3 mmol/L Low 9-17 [facility] Comment on above: Performed By: #### B 12FOL #### [address] [address] Sample Case Porter: Pete Ward MD AST [Catalytic activity/Vol] 23 U/L Normal <40 [facility] Comment on above: Performed By: #### B 12FOL #### [address] [address] Sample Case Porter: Pete Ward MD Bilirubin [Mass/Vol] 0.4 mg/dL Normal 0.3-1.2 [facility] Comment on above: Performed By: #### B 12FOL #### [address] [address] Sample Case Porter: Pete Ward MD BUN/CRE Ratio 40 High 9-20 [facility] Comment on above: Performed By: #### B 12FOL #### [address] [address] Sample Case Porter: Pete Ward MD Calcium [Mass/Vol] 10.2 mg/dL Normal 8.6-10.4 [facility] Comment on above: Performed By: #### B 12FOL #### [address] [address] Sample Case Porter: Pete Ward MD Chloride [Moles/Vol] 102 mmol/L Normal 98-107 [facility] Comment on above: Performed By: #### B 12FOL #### [facility] [address] [place] [address] Sample Case Porter: Pete Ward MD CO2 [Moles/Vol] 43 mmol/L Critically high 20-31 [facility] Comment on above: Performed By: #### B 12FOL #### [facility] [address] [place] [address] Sample Case Porter: Pete Ward MD Creatinine [Mass/Vol] 0.5 mg/dL Low 0.7-1.2 [facility] Comment on above: Performed By: #### B 12FOL #### [facility] [address] [place] [address] Sample Case Porter: Pete Ward MD GFR/1.73 sq M.predicted among non-blacks MDRD (S/P/Bld) [Vol rate/Area] mL/min/{1.73_m2} Normal >60 [facility] Comment on above: Result Comment: These [...] secretion. Performed By: #### B 12FOL #### [facility] [address] [place] [address] Sample Case Porter: Pete Ward MD Glucose [Mass/Vol] 152 mg/dL High 70-99 [facility] Comment on above: Performed By: #### B 12FOL #### [facility] [place] [address] Sample Case Porter: Pete Ward MD Potassium [Moles/Vol] 3.3 mmol/L Low 3.7-5.3 [facility] Comment on above: Performed By: #### B 12FOL #### [facility] [address] [place] [address] Sample Case Porter: Pete Ward MD Protein [Mass/Vol] 6.9 g/dL Normal 6.4-8.3 [facility] Comment on above: Performed By: #### B 12FOL #### [facility] [address] [place] [address] Sample Case Porter: Pete Ward MD Sodium [Moles/Vol] 148 mmol/L High 135-144 [facility] Comment on above: Performed By: #### B 12FOL #### [facility] [address] [place] [address] Sample Case Porter: Pete Ward MD Urea nitrogen [Mass/Vol] 20 mg/dL Normal 8-23 [facility] Comment on above: Performed By: #### B 12FOL #### [facility] [address] [place] [address] Sample Case Porter: Pete Ward MD Magnesiumon 03-25-2023 Magnesium [Mass/Vol] 2.1 mg/dL Normal 1.6-2.6 [facility] Comment on above: Performed By: #### B 12FOL #### [facility] [address] [place] [address] Sample Case Porter: Pete Ward MD Arterial Blood Gaseson 03-24 [facility] Test UNABLE TO COLLECT Normal [facility] Comment on above: Performed By: #### H H #### [facility] [address] [place] [address] [place] [address] Sample Case Porter: Torres Rick MD Body Temp. UNABLE TO COLLECT Normal [facility] Comment on above: Performed By: #### H H #### [facility] [address] [place] [address] Sample Case Porter: Torres Rick MD Carboxy Hgb UNABLE TO COLLECT Normal 0-5 [facility] Comment on above: Performed By: #### H H #### [facility] [address] [place] [address] Sample Case Porter: Torres Rick MD FIO2 UNABLE TO COLLECT Normal [facility] Comment on above: Performed By: #### H H #### [facility] [address] [place] [address] Sample Case Porter: Torres Rick MD HCO3 UNABLE TO COLLECT Normal 22-27 [facility] Comment on above: Performed By: #### H H #### [facility] [address] [place] [address] Sample Case Porter: Torres Rick MD Methemoglobin UNABLE TO COLLECT Normal 0.0-1.5 [facility] Comment on above: Performed By: #### H H #### [facility] [address] [place], [place] 2674183 Sample Case Porter: Torres Rick MD Mode UNABLE TO COLLECT Normal [facility] Comment on above: Performed By: #### H H #### [facility] [address] [place], [place] 8187883 Sample Case Porter: Torres Rick MD Negative Base Excess UNABLE TO COLLECT Normal 0.0-2.0 [facility] Comment on above: Performed By: #### H H #### [facility] [address] [place] [address] Dr. [place], [place] [phone] Sample Case Porter: Torres Rick MD Notification Time UNABLE TO COLLECT Normal [facility] Comment on above: Performed By: #### H H #### [facility] [address] [place] [address] Sample Case Porter: Torres Rick MD Notification: UNABLE TO COLLECT Normal [facility] Comment on above: Performed By: #### H H #### [facility] [address] [place] [address] Sample Case Porter: Torres Rick MD O2 Device/Flow/% UNABLE TO COLLECT Normal [facility] Comment on above: Performed By: #### H H #### [facility] [address] [place] [address] Sample Case Porter: Torres Rick MD O2 Saturation UNABLE TO COLLECT Normal 94-100 [facility] Comment on above: Performed By: #### H H #### [facility] [address] [place], [place] 2826583 Sample Case Porter: Torres Rick MD Oxyhemoglobin UNABLE TO COLLECT Normal 95.0-98.0 [facility] Comment on above: Performed By: #### H H #### [facility] [address] [place], [place] 9797883 Sample Case Porter: Torres Rick MD pCO2 UNABLE TO COLLECT Normal 32-45 [facility] Comment on above: Performed By: #### H H #### [facility] [address] [place], [place] [id number] Sample Case Porter: Torres Rick MD pCO2 Adj'd for Temp UNABLE TO COLLECT Normal 32-45 [facility] Comment on above: Performed By: #### H H #### [facility] [address] [place] [address] Sample Case Porter: Torres Rick MD PEEP/CPAP UNABLE TO COLLECT Normal [facility] Comment on above: Performed By: #### H H #### [facility] [address] [place] [address] Sample Case Porter: Torres Rick MD pH UNABLE TO COLLECT Normal 7.350-7.450 [facility] Comment on above: Performed By: #### H H #### [facility] [address] [place] [address] Sample Case Porter: Torres Rick MD pH Adjst'd for Temp. UNABLE TO COLLECT Normal 7.350-7. 450 [facility] Comment on above: Performed By: #### H H #### [facility] [address] [place] [id number] Sample Case Porter: Torres Rick MD pO2 UNABLE TO COLLECT Normal 75-95 [facility] Comment on above: Performed By: #### H H #### [facility] [address] [place] [address] Sample Case Porter: Torres Rick MD pO2 Adjst'd for Temp UNABLE TO COLLECT Normal 75-95 [facility] Comment on above: Performed By: #### H H #### [facility] [address] [place], [place] 3377283 Sample Case Porter: Torres Rick MD Positive Base Excess UNABLE TO COLLECT Normal 0.0-2.0 [facility] Comment on above: Performed By: #### H H #### [facility] [address] [place], [place] 9855683 Sample Case Porter: Torres Rick MD PSV UNABLE TO COLLECT Normal [facility] Comment on above: Performed By: #### H H #### [facility] [address] [place], [place] 2374783 Sample Case Porter: Torres Rick MD Pt. Position UNABLE TO COLLECT Normal [facility] Comment on above: Performed By: #### H H #### [facility] [address] [place], [place] [phone] Sample Case Porter: Torres Rick MD Respiratory Rate UNABLE TO COLLECT Normal [facility] Comment on above: Performed By: #### H H #### [facility] [address] [place], [place] [id number] Sample Case Porter: Torres Rick MD Set Rate UNABLE TO COLLECT Normal [facility] Comment on above: Performed By: #### H H #### [facility] [address] [place], [place] 1487683 Sample Case Porter: Torres Rick MD Site Drawn UNABLE TO COLLECT Normal [facility] Comment on above: Performed By: #### H H #### [facility] [address] [place], [place] 6193183 Sample Case Porter: Torres Rick MD Text for Respiratory UNABLE TO COLLECT Normal [facility] Comment on above: Performed By: #### H H #### [facility] [address] [place] [address] Sample Case Porter: Torres Rick MD Total Hb UNABLE TO COLLECT Normal 12.0-16.0 [facility] Comment on above: Performed By: #### H H #### [facility] [address] [place] [phone] Sample Case Porter: Torres Rick MD Total Rate UNABLE TO COLLECT Normal [facility] Comment on above: Performed By: #### H H #### [facility] [address] [place] [phone] Sample Case Porter: Torres Rick MD VT UNABLE TO COLLECT Normal [facility] Comment on above: Performed By: #### H H #### [facility] [address] [place] [phone] Sample Case Porter: Torres Rick MD CBCon 03-24-2023 Platelet, Fluoresc. 348 k/uL Normal 138-453 [facility] Comment on above: Performed By: #### F EBC #### [address] [phone] Sample Case Porter: Pete Ward MD #### CDP #### [facility] [address] [place] [address] Sample Case Porter: Torres Rick MD PLT, Immature Fract. 7.9 % Normal 1.1-10.3 [facility] Comment on above: Performed By: #### F EBC #### [address] [id number] Sample Case Porter: Pete Ward MD #### CDP #### [facility] [address] [place] [address] [place] [address] Sample Case Porter: Torres Rick MD Erythrocyte distribution width (RBC) [Ratio] 21.3 % High 11.8-14.4 [facility] Comment on above: Performed By: #### F EBC #### [address] [id number] Sample Case Porter: Pete Ward MD #### CDP #### [facility] [address] [place] [address] [place] [address] Sample Case Porter: Torres Rick MD Hematocrit (Bld) [Volume fraction] 31.4 % Low 40.7-50.3 [facility] Comment on above: Performed By: #### F EBC #### [address] [address] Sample Case Porter: Pete Ward MD #### CDP #### [facility] [address] [place] [address] Dr. [place] [phone] Sample Case Porter: Torres Rick MD Hemoglobin (Bld) [Mass/Vol] 8.7 g/dL Low 13.0-17.0 [facility] Comment on above: Performed By: #### F EBC #### [address] [address] Sample Case Porter: Pete Ward MD #### CDP #### [facility] [address] [place] [address] Dr. [place], [place] [phone] Sample Case Porter: Torres Rick MD MCH (RBC) [Entitic mass] 22.5 pg Low 25.2-33.5 [facility] Comment on above: Performed By: #### F EBC #### [address] [address] Sample Case Porter: Pete Ward MD #### CDP #### [address] [place], [place] [phone] Sample Case Porter: Torres Rick MD MCHC (RBC) [Mass/Vol] 27.7 g/dL Low 28.4-34.8 [facility] Comment on above: Performed By: #### F EBC #### [address] [address] Sample Case Porter: Pete Ward MD #### CDP #### [address] [place], [place] [id number] Sample Case Porter: Torres Rick MD MCV (RBC) [Entitic vol] 81.3 fL Low 82.6-102.9 [facility] Comment on above: Performed By: #### F EBC #### [address] [id number] Sample Case Porter: Pete Ward MD #### CDP #### [address] [place], [place] [id number] Sample Case Porter: Torres Rick MD NRBC Automated 0.0 per [address] [facility] Comment on above: Performed By: #### F EBC #### [address] [address] Sample Case Porter: Pete Ward MD #### CDP #### [address] [place] [phone] Sample Case Porter: Torres Rick MD Platelet Count See Reflexed IPF Result Normal 138-453 [facility] Comment on above: Performed By: #### F EBC #### [address] [address] Sample Case Porter: Pete Ward MD #### CDP #### [address] [place], [place] [id number] Sample Case Porter: Torres Rick MD RBC (Bld) [#/Vol] 3.86 10*6/uL Low 4.21-5.77 [facility] Comment on above: Performed By: #### F EBC #### [place] [address] [place] [address] Sample Case Porter: Pete Ward MD #### CDP #### [address] [place] [phone] Sample Case Porter: Torres Rick MD WBC (Bld) [#/Vol] 9.5 10*3/uL Normal 3.5-11.3 [facility] Comment on above: Performed By: #### F EBC #### [address] [address] Sample Case Porter: Pete Ward MD #### CDP #### [address] [place] [phone] Sample Case Porter: Torres Rick MD Comp Metabolic Pr/rfx MGon 1 0- Albumin [Mass/Vol] 3.3 g/dL Low 3.5-5.2 [facility] Comment on above: Performed By: #### F EBC #### [address] [address] Sample Case Porter: Pete Ward MD #### CDP #### [address] [place] [phone] Sample Case Porter: Torres Rick MD Albumin/Glob Ratio 0.9 Low 1.0-2.5 [facility] Comment on above: Performed By: #### F EBC #### [address] [address] Sample Case Porter: Pete Ward MD #### CDP #### [address] [place] [address] Sample Case Porter: Torres Rick MD Alkaline Phos 91 U/L Normal 40-129 [facility] Comment on above: Performed By: #### F EBC #### [address] [place] [address] Sample Case Porter: Pete Ward MD #### CDP #### [facility] [address] [place], [place] [phone] Sample Case Porter: Torres Rick MD ALT [Catalytic activity/Vol] 9 U/L Normal 5-41 [facility] Comment on above: Performed By: #### F EBC #### [address] [address] Sample Case Porter: Pete Ward MD #### CDP #### [facility] [address] [place], [place] [phone] Sample Case Porter: Torres Rick MD Anion gap [Moles/Vol] 11 mmol/L Normal 9-17 [facility] Comment on above: Performed By: #### F EBC #### [address] [address] Sample Case Porter: Pete Ward MD #### CDP #### [address] [place], [place] [phone] Sample Case Porter: Torres Rick MD AST [Catalytic activity/Vol] 18 U/L Normal <40 [facility] Comment on above: Performed By: #### F EBC #### [address] [address] Sample Case Porter: Pete Ward MD #### CDP #### [address] [place], [place] 7793883 Sample Case Porter: Torres Rick MD Bilirubin [Mass/Vol] 0.4 mg/dL Normal 0.3-1.2 [facility] Comment on above: Performed By: #### F EBC #### [address] [place] [address] Sample Case Porter: Pete Ward MD #### CDP #### [facility] [address] [place], [place] [phone] Sample Case Porter: Torres Rick MD BUN/CRE Ratio 33 High 9-20 [facility] Comment on above: Performed By: #### F EBC #### [address] [address] Sample Case Porter: Pete Ward MD #### CDP #### [facility] [address] [place] [address] Sample Case Porter: Torres Rick MD Calcium [Mass/Vol] 9.7 mg/dL Normal 8.6-10.4 [facility] Comment on above: Performed By: #### F EBC #### [address] [address] Sample Case Porter: Pete Ward MD #### CDP #### [facility] [address] [place] [address] Dr. [place] [phone] Sample Case Porter: Torres Rick MD Chloride [Moles/Vol] 94 mmol/L Low 98-107 [facility] Comment on above: Performed By: #### F EBC #### [address] [address] Sample Case Porter: Pete Ward MD #### CDP #### [facility] [address] [place] [phone] Sample Case Porter: Torres Rick MD CO2 [Moles/Vol] 38 mmol/L High 20-31 [facility] Comment on above: Performed By: #### F EBC #### [address] [address] Sample Case Porter: Pete Ward MD #### CDP #### [facility] [address] [place] [address] Dr. [place], [place] [phone] Sample Case Porter: Torres Rick MD Creatinine [Mass/Vol] 0.7 mg/dL Normal 0.7-1.2 [facility] Comment on above: Performed By: #### F EBC #### [address] [address] Sample Case Porter: Pete Ward MD #### CDP #### [address] [place], [place] 1729883 Sample Case Porter: Torres Rick MD GFR/1.73 sq M.predicted among non-blacks MDRD (S/P/Bld) [Vol rate/Area] mL/min/{1.73_m2} Normal >60 [facility] Comment on above: Result Comment: These [...] secretion. Performed By: #### F EBC #### [address] [address] Sample Case Porter: Pete Ward MD #### CDP #### [address] [place], [place] 1343883 Sample Case Porter: Torres Rick MD Glucose [Mass/Vol] 120 mg/dL High 70-99 [facility] Comment on above: Performed By: #### F EBC #### [address] [address] Sample Case Porter: Pete Ward MD #### CDP #### [address] [place], [place] [phone] Sample Case Porter: Torres Rcik MD Potassium [Moles/Vol] 3.8 mmol/L Normal 3.7-5.3 [facility] Comment on above: Performed By: #### F EBC #### [address] [address] Sample Case Porter: Pete Ward MD #### CDP #### [facility] [address] [place] [address] Dr. [place], [place] [phone] Sample Case Porter: Torres Rick MD Protein [Mass/Vol] 7.1 g/dL Normal 6.4-8.3 [facility] Comment on above: Performed By: #### F EBC #### [address] [address] Sample Case Porter: Pete Ward MD #### CDP #### [facility] [address] [place] [address] Dr. [place], [place] 8068583 Sample Case Porter: Torres Rick MD Sodium [Moles/Vol] 143 mmol/L Normal 135-144 [facility] Comment on above: Performed By: #### F EBC #### [address] [address] Sample Case Porter: Pete Ward MD #### CDP #### [address] [place], [place] 1951983 Sample Case Porter: Torres Rick MD Urea nitrogen [Mass/Vol] 23 mg/dL Normal 8-23 [facility] Comment on above: Performed By: #### F EBC #### [address] [address] Sample Case Porter: Pete Ward MD #### CDP #### [address] [place], [place] [phone] Sample Case Porter: Torres Rick MD Venous Blood Gaseson 20-2 023 [address] PASS Normal [facility] Comment on above: Performed By: #### F EBC #### [address] [address] Sample Case Porter: Pete Ward MD #### CDP #### [facility] [address] [place] [address] [place] [address] Sample Case Porter: Torres Rick MD Body Temp. 37.0 [facility] Comment on above: Performed By: #### F EBC #### [address] [address] Sample Case Porter: Pete Ward MD #### CDP #### [address] [place] [address] Sample Case Porter: Torres Rick MD HCO3 (Bld) [Moles/Vol] 44.1 mmol/L High 24.0-30.0 [facility] Comment on above: Performed By: #### F EBC #### [address] [address] Sample Case Porter: Peet Ward MD #### CDP #### [address] [place] [address] Sample Case Porter: Torres Rick MD O2 Device/Flow/% Cannula Normal [facility] Comment on above: Performed By: #### F EBC #### [address] [address] Sample Case Porter: Pete Ward MD #### CDP #### [address] [place], [place] 3952383 Sample Case Porter: Torres Rick MD Oxygen saturation in Blood 51.1 % Low 60.0-85.0 [facility] Comment on above: Performed By: #### F EBC #### [address] [address] Sample Case Porter: Pete Ward MD #### CDP #### [address] [place], [place] 1260483 Sample Case Porter: Torres Rick MD pCO2 68.1 mm Hg Critically high 39-55 [facility] Comment on above: Performed By: #### F EBC #### [address] [address] Sample Case Porter: Pete Ward MD #### CDP #### [facility] [address] [place] [address] Dr. [place], [place] [phone] Sample Case Porter: Torres Rick MD pH (Bld) 7.429 [pH] High 7.32-7.42 [facility] Comment on above: Performed By: #### F EBC #### [address] [address] Sample Case Porter: Pete Ward MD #### CDP #### [facility] [address] [place] [address] Dr. [place], [place] 1924483 Sample Case Porter: Torres Rick MD pO2 27.8 mm Hg Low 30.0-50.0 [facility] Comment on above: Performed By: #### F EBC #### [address] [address] Sample Case Porter: Pete Ward MD #### CDP #### [address] [place], [place] 1069783 Sample Case Porter: Torres Rick MD Positive Base Excess 15.9 mmol/L High 0.0-2.0 [facility] Comment on above: Performed By: #### F EBC #### [address] [address] Sample Case Porter: Pete Ward MD #### CDP #### [facility] [address] [place] [address] Dr. [place], [place] [phone] Sample Case Porter: Torres Rick MD Pt. Position SEMI-FOWLERS Normal [facility] Comment on above: Performed By: #### F EBC #### [facility] [address] [place] [address] Sample Case Porter: Pete Ward MD #### CDP #### [facility] [address] [place] [address] Dr. [place], [place] [phone] Sample Case Porter: Torres Rick MD Site Drawn Right Brachial Artery Normal [facility] Comment on above: Performed By: #### F EBC #### [facility] [address] [place] [address] Sample Case Porter: Pete Ward MD #### CDP #### [address] [place] [address] Sample Case Porter: Torres Rick MD Arterial Blood Gaseson 03-23 [address] P[address] Normal [facility] Comment on above: Performed By: #### A BG #### [facility] [address] [place] [address] Dr. [place], [place] [phone] Sample Case Porter: Torres Rick MD HCO3 (Bld) [Moles/Vol] 41.4 mmol/L High 22-26 [facility] Comment on above: Performed By: #### A BG #### [address] [place], [place] 8394383 Sample Case Porter: Torres Rick MD O2 Device/Flow/% Cannula Normal [facility] Comment on above: Performed By: #### A BG #### [facility] [address] [place], [place] [phone] Sample Case Porter: Torres Rick MD Oxygen (Bld) [Partial pressure] 56.8 mm[Hg] Low 80-100 [facility] Comment on above: Performed By: #### A BG #### [facility] [address] [place] [address] Dr. [place], [place] [phone] Sample Case Porter: Torres Rick MD Oxygen saturation in Blood 86.4 % Low 95-98 [facility] Comment on above: Performed By: #### A BG #### [facility] [address] [place], [place] 3231583 Sample Case Porter: Torres Rick MD pCO2 78.6 mmHg Critically high 35-45 [facility] Comment on above: Performed By: #### A BG #### [facility] [address] [place] [address] Sample Case Porter: Torres Rick MD pH (Bld) 7.339 [pH] Low 7.35-7.45 [facility] Comment on above: Performed By: #### A BG #### [address] [place], [place] 6542183 Sample Case Porter: Torres Rick MD Positive Base Excess 11.7 mmol/L High 0.0-2.0 [facility] Comment on above: Performed By: #### A BG #### [facility] [address] [place], [place] [phone] Sample Case Porter: Torres Rick MD Pt. Position SEMI-FOWLERS Normal [facility] Comment on above: Performed By: #### A BG #### [address] [place], [place] [phone] Sample Case Porter: Torres Rick MD Site Drawn Left Radial Artery Normal [facility] Comment on above: Performed By: #### A BG #### [facility] [address] [place], [place] 2259383 Sample Case Porter: Torres Rick MD CBC with Diffon 03-23-2023 Abs. Basophil 0.12 k/uL Normal 0.00-0.20 [facility] Comment on above: Performed By: #### F EBC #### [facility] [address] [place], [place] 8306008 Sample Case Porter: Pete Ward MD #### CDP #### [facility] [address] [place] 4953683 Sample Case Porter: Torres Rick MD Abs.Imm.Granulocyte 0.00 k/uL Normal 0.00-0.30 [facility] Comment on above: Performed By: #### F EBC #### [address] [address] Sample Case Porter: Pete Ward MD #### CDP #### [address] [place] [phone] Sample Case Porter: Torres Rick MD Abs.Neutrophil (Seg) 9.77 k/uL High 1.50-8.10 [facility] Comment on above: Performed By: #### F EBC #### [place] [address] Sample Case Porter: Pete Ward MD #### CDP #### [address] [place] [address] Sample Case Porter: Torres Rick MD Basophils/100 WBC (Bld) 1 % Normal 0-2 [facility] Comment on above: Performed By: #### F EBC #### [place] [address] Sample Case Porter: Pete Ward MD #### CDP #### [address] [place] [phone] Sample Case Porter: Torres Rick MD Eosinophils (Bld) [#/Vol] 0.12 10*3/uL Normal 0.00-0.[address] [facility] Comment on above: Performed By: #### F EBC #### [address] [address] Sample Case Porter: Pete Ward MD #### CDP #### [address] [place] [phone] Sample Case Porter: Torres Rick MD Eosinophils/100 WBC (Bld) 1 % Normal 1-4 [facility] Comment on above: Performed By: #### F EBC #### [address] [place] [address] Sample Case Porter: Pete Ward MD #### CDP #### [facility] [address] [place], [place] 2588183 Sample Case Porter: Torres Rick MD Immature granulocytes/100 WBC (Bld) 0 % Normal 0 [facility] Comment on above: Performed By: #### F EBC #### [address] [address] Sample Case Porter: Pete Ward MD #### CDP #### [facility] [address] [place] [address] Dr. [place] [phone] Sample Case Porter: Torres Rick MD Lymphocytes (Bld) [#/Vol] 0.85 10*3/uL Low 1.10-3.[address] [facility] Comment on above: Performed By: #### F EBC #### [address] [address] Sample Case Porter: Pete Ward MD #### CDP #### [facility] [address] [place] [address] Dr. [place] [phone] Sample Case Porter: Torres Rick MD Lymphocytes/100 WBC (Bld) 7 % Low 24-43 [facility] Comment on above: Performed By: #### F EBC #### [address] [address] Sample Case Porter: Pete Ward MD #### CDP #### [facility] [address] [place] [address] [place] [address] Sample Case Porter: Torres Rick MD Monocytes (Bld) [#/Vol] 1.34 10*3/uL High 0.10-1.20 [facility] Comment on above: Performed By: #### F EBC #### [address] [address] Sample Case Porter: Pete Ward MD #### CDP #### [facility] [address] [place], [place] [phone] Sample Case Porter: Torres Rick MD Monocytes/100 WBC (Bld) 11 % Normal 3-12 [facility] Comment on above: Performed By: #### F EBC #### [address] [address] Sample Case Porter: Pete Ward MD #### CDP #### [facility] [address] [place] [address] Dr. [place], [place] 1345883 Sample Case Porter: Torres Rick MD Morphology Luis (Bld) [Interp] HYPOCHROMIA Normal [facility] Comment on above: Result Comment: PRES ENT ANISOCYTOSIS PRESENT Performed By: #### F EBC #### [address] [address] Sample Case Porter: Pete Ward MD #### CDP #### [facility] [address] [place] [address] Dr. [place], [place] [phone] Sample Case Porter: Torres Rick MD Neutrophil (Seg) 80 % High 36-65 [facility] Comment on above: Performed By: #### F EBC #### [address] [address] Sample Case Porter: Pete Ward MD #### CDP #### [facility] [address] [place] [address] [place] [address] Sample Case Porter: Torres Rick MD Erythrocyte distribution width (RBC) [Ratio] 20.6 % High 11.8-14.4 [facility] Comment on above: Performed By: #### F EBC #### [address] [address] Sample Case Porter: Pete Ward MD #### CDP #### [facility] [address] [place] [address] Dr. [place] [phone] Sample Case Porter: Torres Rick MD Hematocrit (Bld) [Volume fraction] 30.2 % Low 40.7-50.3 [facility] Comment on above: Performed By: #### F EBC #### [address] [address] Sample Case Porter: Pete Ward MD #### CDP #### [address] [place] [phone] Sample Case Porter: Torres Rick MD Hemoglobin (Bld) [Mass/Vol] 8.6 g/dL Low 13.0-17.0 [facility] Comment on above: Performed By: #### F EBC #### [address] [address] Sample Case Porter: Pete Ward MD #### CDP #### [address] [place] [facility]83 Sample Case Porter: Torres Rick MD MCH (RBC) [Entitic mass] 22.9 pg Low 25.2-33.5 [facility] Comment on above: Performed By: #### F EBC #### [address] [address] Sample Case Porter: Pete Ward MD #### CDP #### [facility] [address] [place] [address] Dr. [place] [phone] Sample Case Porter: Torres Rick MD MCHC (RBC) [Mass/Vol] 28.5 g/dL Normal 28.4-34.8 [facility] Comment on above: Performed By: #### F EBC #### [address] [address] Sample Case Porter: Pete Ward MD #### CDP #### [address] [place], [place] 7236783 Sample Case Porter: Torres Rick MD MCV (RBC) [Entitic vol] 80.3 fL Low 82.6-102.9 [facility] Comment on above: Performed By: #### F EBC #### [address] [address] Sample Case Porter: Pete Ward MD #### CDP #### [address] [place] [phone] Sample Case Porter: Torres Rick MD NRBC Automated 0.0 per [address] [facility] Comment on above: Performed By: #### F EBC #### [address] [address] Sample Case Porter: Pete Ward MD #### CDP #### [address] [place] [phone] Sample Case Porter: Torres Rick MD Platelet mean volume (Bld) [Entitic vol] 11.0 fL Normal 8.1-13.5 [facility] Comment on above: Performed By: #### F EBC #### [address] [address] Sample Case Porter: Pete Ward MD #### CDP #### [address] [place] [phone] Sample Case Porter: Torres Rick MD Platelets (Bld) [#/Vol] 332 10*3/uL Normal 138-453 [facility] Comment on above: Performed By: #### F EBC #### [address] [address] Sample Case Porter: Pete Ward MD #### CDP #### [address] [place] [phone] Sample Case Porter: Torres Rick MD RBC (Bld) [#/Vol] 3.76 10*6/uL Low 4.21-5.77 [facility] Comment on above: Performed By: #### F EBC #### [address] [address] Sample Case Porter: Pete Ward MD #### CDP #### [address] [place], [place] 5500183 Sample Case Porter: Torres Rick MD WBC (Bld) [#/Vol] 12.2 10*3/uL High 3.5-11.3 [facility] Comment on above: Performed By: #### F EBC #### [address] [address] Sample Case Porter: Pete Ward MD #### CDP #### [address] [place], [place] 3754483 Sample Case Porter: Torres Rick MD Comp Metabolic Pr/rfx MGon 1 0- Anion gap [Moles/Vol] 9 mmol/L Normal 9-17 [facility] Comment on above: Performed By: #### F EBC #### [address] [address] Sample Case Porter: Pete Ward MD #### CDP #### [address] [place] 1143783 Sample Case Porter: Torres iRck MD CO2 [Moles/Vol] 40 mmol/L High 20- [facility] Comment on above: Performed By: #### F EBC #### [address] [address] Sample Case Porter: Pete Ward MD #### CDP #### [address] [place] 1398464 Sample Case Porter: Torres Rick MD Albumin [Mass/Vol] 3.2 g/dL Low 3.5-5.2 [facility] Comment on above: Performed By: #### F EBC #### [facility] [address] [place] [address] Sample Case Porter: Pete Ward MD #### CDP #### [facility] [address] [place] [address] Dr. [place], [place] 0054183 Sample Case Porter: Torres Rick MD Albumin/Glob Ratio 0.8 Low 1.0-2.5 [facility] Comment on above: Performed By: #### F EBC #### [address] [address] Sample Case Porter: Pete Ward MD #### CDP #### [facility] [address] [place] [address] Dr. [place], [place] [phone] Sample Case Porter: Torres Rick MD Alkaline Phos 104 U/L Normal 40-129 [facility] Comment on above: Performed By: #### F EBC #### [address] [address] Sample Case Porter: Pete Ward MD #### CDP #### [address] [place], [place] [phone] Sample Case Porter: Torres Rick MD ALT [Catalytic activity/Vol] 9 U/L Normal 5-41 [facility] Comment on above: Performed By: #### F EBC #### [address] [address] Sample Case Porter: Pete Ward MD #### CDP #### [facility] [address] [place] [address] [place] [address] Sample Case Porter: Torres Rick MD AST [Catalytic activity/Vol] 24 U/L Normal <40 [facility] Comment on above: Performed By: #### F EBC #### [address] [place] [address] Sample Case Porter: Pete Ward MD #### CDP #### [facility] [address] [place], [place] [phone] Sample Case Porter: Torres Rick MD Bilirubin [Mass/Vol] 0.6 mg/dL Normal 0.3-1.2 [facility] Comment on above: Performed By: #### F EBC #### [address] [address] Sample Case Porter: Pete Ward MD #### CDP #### [facility] [address] [place], [place] 6393683 Sample Case Porter: Torres Rick MD BUN/CRE Ratio 26 High 9-20 [facility] Comment on above: Performed By: #### F EBC #### [address] [address] Sample Case Porter: Pete Ward MD #### CDP #### [facility] [address] [place] [address] Dr. [place], [place] [phone] Sample Case Porter: Torres Rick MD Calcium [Mass/Vol] 9.8 mg/dL Normal 8.6-10.4 [facility] Comment on above: Performed By: #### F EBC #### [address] [address] Sample Case Porter: Pete Ward MD #### CDP #### [facility] [address] [place], [place] 2296983 Sample Case Porter: Torres Rick MD Chloride [Moles/Vol] 91 mmol/L Low 98-107 [facility] Comment on above: Performed By: #### F EBC #### [address] [address] Sample Case Porter: Pete Ward MD #### CDP #### [facility] [address] [place] [address] [place] [address] Sample Case Porter: Torres Rick MD Creatinine [Mass/Vol] 0.7 mg/dL Normal 0.7-1.2 [facility] Comment on above: Performed By: #### F EBC #### [address] [address] Sample Case Porter: Pete Ward MD #### CDP #### [facility] [address] [place] [address] Dr. [place], [place] [phone] Sample Case Porter: Torres Rick MD GFR/1.73 sq M.predicted among non-blacks MDRD (S/P/Bld) [Vol rate/Area] mL/min/{1.73_m2} Normal >60 [facility] [facility] Comment on above: Result Comment: These [...] secretion. Performed By: #### F EBC #### [address] [address] Sample Case Porter: Pete Ward MD #### CDP #### [facility] [address] [place] [address] [place]. [place], [place] [id number] Sample Case Porter: Torres Rick MD Glucose [Mass/Vol] 77 mg/dL Normal 70-99 [facility] Comment on above: Performed By: #### F EBC #### [address] [address] Sample Case Porter: Pete Ward MD #### CDP #### [facility] [address] [place] [address] [place] [address] Sample Case Porter: Torres Rick MD Potassium [Moles/Vol] 3.6 mmol/L Low 3.7-5.3 [facility] Comment on above: Performed By: #### F EBC #### [facility] [address] [place] [address] Sample Case Porter: Pete Ward MD #### CDP #### [facility] [address] [place] [address] Dr. [place], [place] [id number] Sample Case Porter: Torres Rick MD Protein [Mass/Vol] 7.1 g/dL Normal 6.4-8.3 [facility] Comment on above: Performed By: #### F EBC #### [address] [address] Sample Case Porter: Pete Ward MD #### CDP #### [address] [place], [place] [id number] Sample Case Porter: Torres Rick MD Sodium [Moles/Vol] 140 mmol/L Normal 135-144 [facility] Comment on above: Performed By: #### F EBC #### [address] [address] Sample Case Porter: Pete Ward MD #### CDP #### [address] [place], [place] [id number] Sample Case Porter: Torres Rick MD Urea nitrogen [Mass/Vol] 18 mg/dL Normal 8-23 [facility] Comment on above: Performed By: #### F EBC #### [address] [address] Sample Case Porter: Pete Ward MD #### CDP #### [facility] [address] [place] [address] Dr. [place], [place] [id number] Sample Case Porter: Torres Rick MD Hgb/Hcton 03-23-2023 Hematocrit (Bld) [Volume fraction] 30.3 % Low 40.7-50.3 [facility] Comment on above: Performed By: #### F EBC #### [address] [address] Sample Case Porter: Pete Ward MD #### CDP #### [facility] [address] [place] [address] Dr. [place], [place] [id number] Sample Case Porter: Torres Rick MD Hemoglobin (Bld) [Mass/Vol] 8.7 g/dL Low 13.0-17.0 [facility] Comment on above: Performed By: #### F EBC #### [address] [address] Sample Case Porter: Pete Ward MD #### CDP #### [facility] [address] [place] [address] [place] [address] Sample Case Porter: Torres Rick MD Iron Binding Cap.on 03-23-20 23 % Fe Saturation 7 % Low 20-55 [facility] Comment on above: Performed By: #### F EBC #### [address] [address] Sample Case Porter: Pete Ward MD #### CDP #### [facility] [address] [place] [address] [place] [address] Sample Case Porter: Torres Rick MD Iron [Mass/Vol] 25 ug/dL Low 59-158 [facility] Comment on above: Performed By: #### F EBC #### [address] [address] Sample Case Porter: Pete Ward MD #### CDP #### [facility] [address] [place] [address] [place] [address] Sample Case Porter: Torres Rick MD Total Fe Binding Cap 370 ug/dL Normal 250-450 [facility] Comment on above: Performed By: #### F EBC #### [address] [place], [place] [id number] Sample Case Porter: Pete Ward MD #### CDP #### [facility] [address] [place], [place] [id number] Sample Case Porter: Torres Rick MD Unbound Fe Bind Cap 345 ug/dL Normal 112-347 [facility] Comment on above: Performed By: #### F EBC #### [facility] [address] [place] [address] Sample Case Porter: Pete Ward MD #### CDP #### [facility] [address] [place] [address] Sample Case Porter: Torres Rick MD Arterial Blood Gaseson 03-22 John Test PASS Normal [facility] Comment on above: Performed By: #### H H #### [facility] [address] [place] [address] Sample Case Porter: Torres Rick MD Body Temp. 37.0 [facility] Comment on above: Performed By: #### H H #### [facility] [address] [place] [address] Sample Case Porter: Torres Rick MD FIO2 [address] [facility] Comment on above: Performed By: #### H H #### [facility] [address] [place] [address] Sample Case Porter: Torres Rick MD HCO3 (Bld) [Moles/Vol] 43.1 mmol/L High 22-26 [facility] Comment on above: Performed By: #### H H #### [facility] [address] [place] [address] Sample Case Porter: Torres Rick MD O2 Device/Flow/% BIPAP Normal [facility] Comment on above: Performed By: #### H H #### [facility] [address] [place], [place] 1800183 Sample Case Porter: Torres Rick MD Oxygen (Bld) [Partial pressure] 60.9 mm[Hg] Low 80.0-100.0 [facility] Comment on above: Performed By: #### H H #### [facility] [address] [place] [address] Dr. [place] [id number] Sample Case Porter: Torres Rick MD Oxygen saturation in Blood 89.9 % Low 95-98 [facility] Comment on above: Performed By: #### H H #### [address] [place] [id number] Sample Case Porter: Torres Rick MD pCO2 74.0 mmHg Critically high 35-45 [facility] Comment on above: Performed By: #### H H #### [address] [place] [facility]83 Sample Case Porter: Torres Rick MD pH (Bld) 7.383 [pH] Normal 7.35-7.45 [facility] Comment on above: Performed By: #### H H #### [address] [place] [address] Sample Case Porter: Torres Rick MD Positive Base Excess 14.1 mmol/L High 0.0-2.0 [facility] Comment on above: Performed By: #### H H #### [address] [place], [place] [id number] Sample Case Porter: Torres Rick MD Pt. Position SEMI-FOWLERS Normal [facility] Comment on above: Performed By: #### H H #### [address] [place] [address] Sample Case Porter: Torres Rick MD Respiratory rate 44 /min Normal [facility] Comment on above: Performed By: #### H H #### [address] [place] [id number] Sample Case Porter: Torres Rick MD Site Drawn Left Brachial Artery Normal [facility] Comment on above: Performed By: #### H H #### [facility] [address] [place], [place] 5032883 Sample Case Porter: Torres Rick MD CBC with Diffon 03-22-2023 Abs. Basophil 0.09 k/uL Normal 0.0-0.2 [facility] Comment on above: Performed By: #### F EBC #### [address] [address] Sample Case Porter: Pete Ward MD #### CDP #### [address] [place] [phone] Sample Case Porter: Torres Rick MD Abs.Imm.Granulocyte 0.00 k/uL Normal 0.00-0.30 [facility] Comment on above: Performed By: #### F EBC #### [address] [address] Sample Case Porter: Pete Ward MD #### CDP #### [facility] [address] [place] [address] Dr. [place], [place] [phone] Sample Case Porter: Torres Rick MD Abs.Neutrophil (Seg) 7.35 k/uL Normal 1.50-8.10 [facility] Comment on above: Performed By: #### F EBC #### [address] [address] Sample Case Porter: Pete Ward MD #### CDP #### [address] [place], [place] 3988783 Sample Case Porter: Torres Rick MD Basophils/100 WBC (Bld) 1 % Normal 0-2 [facility] Comment on above: Performed By: #### F EBC #### [address] [address] Sample Case Porter: Pete Ward MD #### CDP #### [facility] [address] [place] [address] [place] [phone] Sample Case Porter: Torres Rick MD Eosinophils (Bld) [#/Vol] 0.09 10*3/uL Normal 0.00-0.[address] [facility] Comment on above: Performed By: #### F EBC #### [address] [address] Sample Case Porter: Pete Ward MD #### CDP #### [address] [place] [phone] Sample Case Porter: Torres Rick MD Eosinophils/100 WBC (Bld) 1 % Normal 1-4 [facility] Comment on above: Performed By: #### F EBC #### [place] [address] Sample Case Porter: Pete Ward MD #### CDP #### [address] [place] [address] Sample Case Porter: Torres Rick MD Immature granulocytes/100 WBC (Bld) 0 % Normal 0 [facility] Comment on above: Performed By: #### F EBC #### [address] [address] Sample Case Porter: Pete Ward MD #### CDP #### [facility] [address] [place] [address] [place]. [place] [phone] Sample Case Porter: Torres Rick MD Lymphocytes (Bld) [#/Vol] 0.84 10*3/uL Low 1.10-3.[address] [facility] Comment on above: Performed By: #### F EBC #### [address] [address] Sample Case Porter: Pete Ward MD #### CDP #### [facility] [address] [place], [place] 7106483 Sample Case Porter: Torres Rick MD Lymphocytes/100 WBC (Bld) 9 % Low 24-43 [facility] Comment on above: Performed By: #### F EBC #### [place] [address] [place] [address] Sample Case Porter: Pete Ward MD #### CDP #### [facility] [address] [place] [address] Sample Case Porter: Torres Rick MD Monocytes (Bld) [#/Vol] 0.93 10*3/uL Normal 0.10-1.20 [facility] Comment on above: Performed By: #### F EBC #### [address] [address] Sample Case Porter: Pete Ward MD #### CDP #### [address] [place], [place] 5740783 Sample Case Porter: Torres Rick MD Monocytes/100 WBC (Bld) 10 % Normal 3-12 [facility] Comment on above: Performed By: #### F EBC #### [address] [address] Sample Case Porter: Pete Ward MD #### CDP #### [address] [place] [address] Sample Case Porter: Torres Rick MD Morphology Luis (Bld) [Interp] HYPOCHROMIA Normal [facility] Comment on above: Result Comment: PRES ENT Large platelets noted Platelet clumps present, count appears adequate. Performed By: #### F EBC #### [address] [address] Sample Case Porter: Pete Ward MD #### CDP #### [address] [place] [phone] Sample Case Porter: Torres Rick MD Neutrophil (Seg) 79 % High 36-65 [facility] Comment on above: Performed By: #### F EBC #### [place] [address] [place] [address] Sample Case Porter: Pete Ward MD #### CDP #### [address] [place], [place] 4866783 Sample Case Porter: Torres Rick MD Erythrocyte distribution width (RBC) [Ratio] 19.6 % High 11.8-14.4 [facility] Comment on above: Performed By: #### F EBC #### [address] [address] Sample Case Porter: Pete Ward MD #### CDP #### [address] [place], [place] 5996083 Sample Case Porter: Torres Rick MD Hematocrit (Bld) [Volume fraction] 28.8 % Low 40.7-50.3 [facility] Comment on above: Performed By: #### F EBC #### [address] [address] Sample Case Porter: Pete Ward MD #### CDP #### [address] [place] [phone] Sample Case Porter: Torres Rick MD Hemoglobin (Bld) [Mass/Vol] 8.2 g/dL Low 13.0-17.0 [facility] Comment on above: Performed By: #### F EBC #### [address] [address] Sample Case Porter: Pete Ward MD #### CDP #### [address] [place], [place] 2714583 Sample Case Porter: Torres Rick MD MCH (RBC) [Entitic mass] 22.9 pg Low 25.2-33.5 [facility] Comment on above: Performed By: #### F EBC #### [place] [address] [place] [address] Sample Case Porter: Pete Ward MD #### CDP #### [address] [place] [phone] Sample Case Porter: Torres Rick MD MCHC (RBC) [Mass/Vol] 28.5 g/dL Normal 28.4-34.8 [facility] Comment on above: Performed By: #### F EBC #### [address] [address] Sample Case Porter: Pete Ward MD #### CDP #### [address] [place] [phone] Sample Case Porter: Torres Rick MD MCV (RBC) [Entitic vol] 80.4 fL Low 82.6-102.9 [facility] Comment on above: Performed By: #### F EBC #### [address] [address] Sample Case Porter: Pete Ward MD #### CDP #### [address] [place] 4953683 Sample Case Porter: Torres Rick MD NRBC Automated 0.0 per [address] [facility] Comment on above: Performed By: #### F EBC #### [address] [address] Sample Case Porter: Pete Ward MD #### CDP #### [address] [place] [phone] Sample Case Porter: Torres Rick MD Platelet mean volume (Bld) [Entitic vol] 12.3 fL Normal 8.1-13.5 [facility] Comment on above: Performed By: #### F EBC #### [facility] [address] [place] [address] Sample Case Porter: Pete Ward MD #### CDP #### [facility] [address] [place], [place] 7209583 Sample Case Porter: Torres Rick MD Platelets (Bld) [#/Vol] 307 10*3/uL Normal 138-453 [facility] Comment on above: Performed By: #### F EBC #### [place] [address] [place] [address] Sample Case Porter: Pete Ward MD #### CDP #### [facility] [address] [place] [address] Dr. [place], [place] 3099283 Sample Case Porter: Torres Rick MD RBC (Bld) [#/Vol] 3.58 10*6/uL Low 4.21-5.77 [facility] Comment on above: Performed By: #### F EBC #### [place] [address] [place] [address] Sample Case Porter: Pete Ward MD #### CDP #### [address] [place], [place] 1658083 Sample Case Porter: Torres Rick MD WBC (Bld) [#/Vol] 9.3 10*3/uL Normal 3.5-11.3 [facility] Comment on above: Performed By: #### F EBC #### [facility] [address] [place] [address] Sample Case Porter: Pete Ward MD #### CDP #### [facility] [address] [place] [address] Dr. [place], [place] 2080183 Sample Case Porter: Torres Rick MD Hgb/Hcton 03-22-2023 Hematocrit (Bld) [Volume fraction] 30.1 % Low 40.7-50.3 [facility] Comment on above: Performed By: #### F EBC #### [place] [address] [place] [address] Sample Case Porter: Pete Ward MD #### CDP #### [facility] [address] [place] [address] Dr. [place], [place] [phone] Sample Case Porter: Torres Rick MD Hemoglobin (Bld) [Mass/Vol] 8.7 g/dL Low 13.0-17.0 [facility] Comment on above: Performed By: #### F EBC #### [address] [address] Sample Case Porter: Pete Ward MD #### CDP #### [address] [place], [place] [phone] Sample Case Porter: Torres Rick MD Hematocrit (Bld) [Volume fraction] 31.1 % Low 40.7-50.3 [facility] Comment on above: Performed By: #### F EBC #### [address] [address] Sample Case Porter: Pete Ward MD #### CDP #### [address] [place], [place] 5466283 Sample Case Porter: Torres Rick MD Hemoglobin (Bld) [Mass/Vol] 9.0 g/dL Low 13.0-17.0 [facility] Comment on above: Performed By: #### F EBC #### [place] [address] [place] [address] Sample Case Porter: Pete Ward MD #### CDP #### [address] [place], [place] 4858183 Sample Case Porter: Torres Rick MD Hematocrit (Bld) [Volume fraction] 26.5 % Low 40.7-50.3 [facility] Comment on above: Performed By: #### B 12FOL #### [facility] [address] [place] [address] Sample Case Porter: Pete Ward MD Hemoglobin (Bld) [Mass/Vol] 7.6 g/dL Low 13.0-17.0 [facility] Comment on above: Performed By: #### B 12FOL #### [facility] [address] [place] [address] Sample Case Porter: Pete Ward MD Arterial Blood Gaseson 03-21 John Test PASS [facility] Comment on above: Performed By: #### A BG #### [facility] [address] [place] [address] Sample Case Porter: Torres Rick MD Body Temp. 37.0 [facility] Comment on above: Performed By: #### A BG #### [facility] [address] [place] [address] Sample Case Porter: Torres Rick MD FIO2 30 [facility] Comment on above: Performed By: #### A BG #### [facility] [address] [place] [address] Sample Case Porter: Torres Rick MD HCO3 (Bld) [Moles/Vol] 42.8 mmol/L High 22-26 [facility] Comment on above: Performed By: #### A BG #### [facility] [address] [place], [place] 7847483 Sample Case Porter: Torres Rick MD O2 Device/Flow/% BIPAP [facility] Comment on above: Performed By: #### A BG #### [facility] [address] [place] [address] Sample Case Porter: Torres Rick MD Oxygen (Bld) [Partial pressure] 48.9 mm[Hg] Low 80.0-100.0 [facility] Comment on above: Performed By: #### A BG #### [facility] [address] [place], [place] 8450283 Sample Case Porter: Torres Rick MD Oxygen saturation in Blood 82.2 % Low 95-98 [facility] Comment on above: Performed By: #### A BG #### [facility] [address] [place], [place] 0645883 Sample Case Porter: Torres Rick MD pCO2 73.2 mmHg Critically high 35-45 [facility] Comment on above: Performed By: #### A BG #### [address] [place], [place] 6612383 Sample Case Porter: Torres Rick MD pH (Bld) 7.385 [pH] Normal 7.35-7.45 [facility] Comment on above: Performed By: #### A BG #### [address] [place], [place] 1486883 Sample Case Porter: Torres Rick MD Positive Base Excess 13.9 mmol/L High 0.0-2.0 [facility] Comment on above: Performed By: #### A BG #### [address] [place], [place] 8393083 Sample Case Porter: Torres Rick MD Pt. Position SEMI-FOWLERS Normal [facility] Comment on above: Performed By: #### A BG #### [facility] [address] [place] [address] Dr. [place], [place] 6348383 Sample Case Porter: Torres Rick MD Respiratory rate 41 /min Normal [facility] Comment on above: Performed By: #### A BG #### [address] [place] [address] Sample Case Porter: Torres Rick MD Site Drawn Left Radial Artery Normal [facility] Comment on above: Performed By: #### A BG #### [address] [place] [address] Sample Case Porter: Torres Rick MD John Test PASS Normal [facility] Comment on above: Performed By: #### H H #### [facility] [address] [place] [address] Sample Case Porter: Torres Rick MD HCO3 (Bld) [Moles/Vol] 39.4 mmol/L High 22-26 [facility] Comment on above: Performed By: #### H H #### [facility] [address] [place] [id number] Sample Case Porter: Torres Rick MD O2 Device/Flow/% Cannula Normal [facility] Comment on above: Result Comment: 5L Performed By: #### H H #### [facility] [address] [place] [address] Sample Case Porter: Torres Rick MD Oxygen (Bld) [Partial pressure] 104.0 mm[Hg] High 80-100 [facility] Comment on above: Performed By: #### H H #### [facility] [address] [place] 8356783 Sample Case Porter: Torres Rick MD Oxygen saturation in Blood 96.6 % Normal 95-98 [facility] Comment on above: Performed By: #### H H #### [facility] [address] [place] 6078383 Sample Case Porter: Torres Rick MD pCO2 90.2 mmHg Critically high 35-45 [facility] Comment on above: Performed By: #### H H #### [facility] [address] [place] [address] Sample Case Porter: Torres Rick MD pH (Bld) 7.258 [pH] Low 7.35-7.45 [facility] Comment on above: Performed By: #### H H #### [facility] [address] [place] [address] Sample Case Porter: Torres Rick MD Positive Base Excess 8.3 mmol/L High 0.0-2.0 [facility] Comment on above: Performed By: #### H H #### [facility] [address] [place] [address] Sample Case Porter: Torres Rick MD Site Drawn Right Radial Artery Normal [facility] Comment on above: Performed By: #### H H #### [facility] [address] [place], [place] 2204883 Sample Case Porter: Torres Rick MD B12/Folate Panelon 3 Folic Acid >20.0 Normal >4.8 [facility] Comment on above: Performed By: #### B 12FOL #### [facility] [address] [place] [address] Sample Case Porter: Pete Ward MD Cobalamin (Vitamin B12) [Mass/Vol] 826 pg/mL Normal 232-1245 [facility] Comment on above: Performed By: #### B 12FOL #### [facility] [address] [place] [address] Sample Case Porter: Pete Ward MD Basic Metabolic Profon 03-219 Anion gap [Moles/Vol] 1 mmol/L Low - [facility] Comment on above: Performed By: #### H H #### [facility] [address] [place], [place] 5167783 Sample Case Porter: Torres Rick MD BUN/CRE Ratio 22 High 9-20 [facility] Comment on above: Performed By: #### H H #### [facility] [address] [place], [place] 4462183 Sample Case Porter: Torres Rick MD Calcium [Mass/Vol] 9.2 mg/dL Normal 8.6-10.4 [facility] Comment on above: Performed By: #### H H #### [facility] [address] [place], [place] 8090083 Sample Case Porter: Torres Rick MD Chloride [Moles/Vol] 96 mmol/L Low 98-107 [facility] Comment on above: Performed By: #### H H #### [facility] [address] [place] [id number] Sample Case Porter: Torres Rick MD CO2 [Moles/Vol] 42 mmol/L Critically high 20-31 [facility] Comment on above: Performed By: #### H H #### [facility] [address] [place] [address] Sample Case Porter: Torres Rick MD Creatinine [Mass/Vol] 0.5 mg/dL Low 0.7-1.2 [facility] Comment on above: Performed By: #### H H #### [facility] [address] [place] [address] Sample Case Porter: Torres Rick MD GFR/1.73 sq M.predicted among non-blacks MDRD (S/P/Bld) [Vol rate/Area] mL/min/{1.73_m2} Normal >60 [facility] Comment on above: Result Comment: These [...] secretion. Performed By: #### H H #### [facility] [address] [place] [address] Sample Case Porter: Torres Rick MD Glucose [Mass/Vol] 102 mg/dL High 70-99 [facility] Comment on above: Performed By: #### H H #### [facility] [address] [place] [address] Sample Case Porter: Torres Rick MD Potassium [Moles/Vol] 4.6 mmol/L Normal 3.7-5.3 [facility] Comment on above: Performed By: #### H H #### [facility] [address] [place], [place] 3059883 Sample Case Porter: Torres Rick MD Sodium [Moles/Vol] 139 mmol/L Normal 135-144 [facility] Comment on above: Performed By: #### H H #### [facility] [address] [place], [place] 5095483 Sample Case Porter: Torres Rick MD Urea nitrogen [Mass/Vol] 11 mg/dL Normal 8-23 [facility] Comment on above: Performed By: #### H H #### [facility] [address] [place], [facility]83 Sample Case Porter: Torres Rick MD CBC with Diffon 03-21-2023 Abs. Basophil <0.03 Normal 0.00-0.20 [facility] Comment on above: Performed By: #### H H #### [facility] [address] [place] [address] Dr[place], [place] 4434583 Sample Case Porter: Torres Rick MD Abs.Imm.Granulocyte 0.03 k/uL Normal 0.00-0.30 [facility] Comment on above: Performed By: #### H H #### [facility] [address] [place], [place] 4108783 Sample Case Porter: Torres Rick MD Abs.Neutrophil (Seg) 6.89 k/uL Normal 1.50-8.10 [facility] Comment on above: Performed By: #### H H #### [facility] [address] [place], [place] 1389283 Sample Case Porter: Torres Rick MD Basophils/100 WBC (Bld) 0 % Normal 0-2 [facility] Comment on above: Performed By: #### H H #### [address] [place], [place] [phone] Sample Case Porter: Torres Rick MD Eosinophils (Bld) [#/Vol] 0.12 10*3/uL Normal 0.00-0.[address] [facility] Comment on above: Performed By: #### H H #### [address] Gray [facility]83 Sample Case Porter: Torres Rick MD Eosinophils/100 WBC (Bld) 1 % Normal 1-4 [facility] Comment on above: Performed By: #### H H #### [address] Gray [facility]83 Sample Case Porter: Torres Rick MD Erythrocyte distribution width (RBC) [Ratio] 19.8 % High 11.8-14.4 [facility] Comment on above: Performed By: #### H H #### [address] Gray [facility]83 Sample Case Porter: Torres Rick MD Hematocrit (Bld) [Volume fraction] 19.5 % Critically low 40.7-50.3 [facility] Comment on above: Performed By: #### H H #### [address] Gray [facility]83 Sample Case Porter: Torres Rick MD Hemoglobin (Bld) [Mass/Vol] 5.0 g/dL Critically low 13.0-17.0 [facility] Comment on above: Performed By: #### H H #### [address] Gray [facility]83 Sample Case Porter: Torres Rick MD Immature granulocytes/100 WBC (Bld) 0 % Normal 0 [facility] Comment on above: Performed By: #### H H #### [address] Gray [facility]05 Sample Case Porter: Torres Rick MD Lymphocytes (Bld) [#/Vol] 1.01 10*3/uL Low 1.10-3.[address] [facility] Comment on above: Performed By: #### H H #### [facility] [address] [place] [address] Dr. [place], [place] [id number] Sample Case Porter: Torres Rick MD Lymphocytes/100 WBC (Bld) 11 % Low 24-43 [facility] Comment on above: Performed By: #### H H #### [facility] [address] [place] [address] Dr. [place], [place] [id number] Sample Case Porter: Torres Rick MD MCH (RBC) [Entitic mass] 20.7 pg Low 25.2-33.5 [facility] Comment on above: Performed By: #### H H #### [facility] [address] [place] [address] Dr. Gray, [facility] ( Sample Case Porter: Torres Rick MD MCHC (RBC) [Mass/Vol] 25.6 g/dL Low 28.4-34.8 [facility] Comment on above: Performed By: #### H H #### [address] [place] [address] Sample Case Porter: Torres Rick MD MCV (RBC) [Entitic vol] 80.9 fL Low 82.6-102.9 [facility] Comment on above: Performed By: #### H H #### [facility] [address] [place] [address] Dr. [place], [place] [id number] Sample Case Porter: Torres Rick MD Monocytes (Bld) [#/Vol] 0.88 10*3/uL Normal 0.10-1.20 [facility] Comment on above: Performed By: #### H H #### [facility] [address] [place] [address] [place] [address] Sample Case Porter: Torres Rick MD Monocytes/100 WBC (Bld) 10 % Normal 3-12 [facility] Comment on above: Performed By: #### H H #### [facility] [address] [place], [place] [id number] Sample Case Porter: Torres Rick MD Neutrophil (Seg) 77 % High 36-65 [facility] Comment on above: Performed By: #### H H #### [facility] [address] Gray [facility]83 Sample Case Porter: Torres Rick MD NRBC Automated 0.0 per [address] [facility] Comment on above: Performed By: #### H H #### [facility] [address] Gray, [facility]83 Sample Case Porter: Torres Rick MD Platelet mean volume (Bld) [Entitic vol] 11.6 fL Normal 8.1-13.5 [facility] Comment on above: Performed By: #### H H #### [facility] [address] [place] [address] Dr. Gray [facility]83 Sample Case Porter: Torres Rick MD Platelets (Bld) [#/Vol] 235 10*3/uL Normal 138-453 [facility] Comment on above: Performed By: #### H H #### [address] Gray [facility]83 Sample Case Porter: Torres Rick MD RBC (Bld) [#/Vol] 2.41 10*6/uL Low 4.21-5.77 [facility] Comment on above: Performed By: #### H H #### [facility] [address] [place] [address] Dr. Gray [facility]83 Sample Case Porter: Torres Rick MD WBC (Bld) [#/Vol] 9.0 10*3/uL Normal 3.5-11.3 [facility] Comment on above: Performed By: #### H H #### [facility] [address] [place] [address] Dr. Gray, [place] [phone] Sample Case Porter: Torres Rick MD Abs. Basophil 0.00 k/uL Normal 0.0-0.2 [facility] Comment on above: Performed By: #### H H #### [facility] [address] [place], [place] [id number] Sample Case Porter: Torres Rick MD Abs.Imm.Granulocyte 0.00 k/uL Normal 0.00-0.30 [facility] Comment on above: Performed By: #### H H #### [address] Gray, [facility]83 Sample Case Porter: Torres Rick MD Abs.Neutrophil (Seg) 7.77 k/uL Normal 1.50-8.10 [facility] Comment on above: Performed By: #### H H #### [address] Gray, [facility]83 Sample Case Porter: Torres Rick MD Basophils/100 WBC (Bld) 0 % Normal 0-2 [facility] Comment on above: Performed By: #### H H #### [address] Gray, [place] [address] Sample Case Porter: oTrres Rick MD Eosinophils (Bld) [#/Vol] 0.10 10*3/uL Normal 0.00-0.[address] [facility] Comment on above: Performed By: #### H H #### [facility] [address] [place] [address] Dr. Gray, [facility]83 Sample Case Porter: Torres Rick MD Eosinophils/100 WBC (Bld) 1 % Normal 1-4 [facility] Comment on above: Performed By: #### H H #### [facility] [address] [place], [place] [id number] Sample Case Porter: Torres Rick MD Immature granulocytes/100 WBC (Bld) 0 % Normal 0 [facility] Comment on above: Performed By: #### H H #### [facility] [address] [place], [place] [id number] Sample Case Porter: Torres Rick MD Lymphocytes (Bld) [#/Vol] 0.58 10*3/uL Low 1.10-3.[address] [facility] Comment on above: Performed By: #### H H #### [facility] [address] [place], [place] [id number] Sample Case Porter: Torres Rick MD Lymphocytes/100 WBC (Bld) 6 % Low 24-43 [facility] Comment on above: Performed By: #### H H #### [facility] [address] [place], [place] [id number] Sample Case Porter: Torres Rick MD Monocytes (Bld) [#/Vol] 1.15 10*3/uL Normal 0.10-1.20 [facility] Comment on above: Performed By: #### H H #### [facility] [address] Gray, [facility]83 Sample Case Porter: Torres Rick MD Monocytes/100 WBC (Bld) 12 % Normal 3-12 [facility] Comment on above: Performed By: #### H H #### [facility] [address] Gray [place] [id number] Sample Case Porter: Torres Rick MD Morphology Luis (Bld) [Interp] Platelet scan shows Normal Platelets Normal [facility] Comment on above: Result Comment: ANIS OCYTOSIS PRESENT Performed By: #### H H #### [facility] [address] [place] 2017183 Sample Case Porter: Torres Rick MD Neutrophil (Seg) 81 % High 36-65 [facility] Comment on above: Performed By: #### H H #### [facility] [address] Gray [facility]83 Sample Case Porter: Torres Rick MD Erythrocyte distribution width (RBC) [Ratio] 20.7 % High 11.8-14.4 [facility] Comment on above: Performed By: #### H H #### [facility] [address] [place] [address] Dr. Gray, [place] [id number] Sample Case Porter: Torres Rick MD Hematocrit (Bld) [Volume fraction] 19.0 % Critically low 40.7-50.3 [facility] Comment on above: Performed By: #### H H #### [facility] [address] [place] [address] Dr. [place], [place] [id number] Sample Case Porter: Torres Rick MD Hemoglobin (Bld) [Mass/Vol] 4.5 g/dL Critically low 13.0-17.0 [facility] Comment on above: Performed By: #### H H #### [address] [place], [place] [id number] Sample Case Porter: Torres Rick MD MCH (RBC) [Entitic mass] 19.0 pg Low 25.2-33.5 [facility] Comment on above: Performed By: #### H H #### [address] [place], [place] 0600083 Sample Case Porter: Torres Rick MD MCHC (RBC) [Mass/Vol] 23.7 g/dL Low 28.4-34.8 [facility] Comment on above: Performed By: #### H H #### [facility] [address] [place] [address] Dr. [place], [place] [id number] Sample Case Porter: Torres Rick MD MCV (RBC) [Entitic vol] 80.2 fL Low 82.6-102.9 [facility] Comment on above: Performed By: #### H H #### [facility] [address] [place] [address] Dr. Gray, [place] [phone] Sample Case Porter: Torres Rick MD NRBC Automated 0.0 per [address] [facility] Comment on above: Performed By: #### H H #### [facility] [address] [place], [place] [id number] Sample Case Porter: Torres Rick MD Platelet mean volume (Bld) [Entitic vol] 11.1 fL Normal 8.1-13.5 [facility] Comment on above: Performed By: #### H H #### [facility] [address] Gray [facility]83 Sample Case Porter: Torres Rick MD Platelets (Bld) [#/Vol] 244 10*3/uL Normal 138-453 [facility] Comment on above: Performed By: #### H H #### [facility] [address] Gray [facility]83 Sample Case Porter: Torres Rick MD RBC (Bld) [#/Vol] 2.37 10*6/uL Low 4.21-5.77 [facility] Comment on above: Performed By: #### H H #### [address] Gray, [facility]83 Sample Case Porter: Torres Rick MD WBC (Bld) [#/Vol] 9.6 10*3/uL Normal 3.5-11.3 [facility] Comment on above: Performed By: #### H H #### [address] Gray, [facility]83 Sample Case Porter: Torres Rick MD CT HEAD WO CONTRASTon [...] Soraya Ward MD 03/21/[address] [facility] Ferritinon 03-21-2023 Ferritin [Mass/Vol] 11 ng/mL Low 30-400 [facility] Comment on above: Performed By: #### H H #### [facility] [address] [place] [address] [place] [address] Sample Case Porter: Torres Rick MD Hgb/Hcton 03-21-2023 Hematocrit (Bld) [Volume fraction] 25.6 % Low 40.7-50.3 [facility] Comment on above: Performed By: #### H H #### [address] [place] [address] Sample Case Porter: Torres Rick MD Hemoglobin (Bld) [Mass/Vol] 7.3 g/dL Low 13.0-17.0 [facility] Comment on above: Performed By: #### H H #### [address] [place] [address] Sample Case Porter: Torres Rick MD Hematocrit (Bld) [Volume fraction] 25.4 % Low 40.7-50.3 [facility] Comment on above: Performed By: #### H H #### [address] [place] [address] Sample Case Porter: Torres Rick MD Hemoglobin (Bld) [Mass/Vol] 7.0 g/dL Low 13.0-17.0 [facility] Comment on above: Performed By: #### H H #### [facility] [address] [place] [address] [place], [place] [phone] Sample Case Porter: Torres Rick MD Hematocrit (Bld) [Volume fraction] 24.2 % Low 40.7-50.3 [facility] Comment on above: Performed By: #### F EBC #### [address] [address] Sample Case Porter: Pete Ward MD #### CDP #### [address] [place], [place] [id number] Sample Case Porter: Torres Rick MD Hemoglobin (Bld) [Mass/Vol] 6.7 g/dL Critically low 13.0-17.0 [facility] Comment on above: Performed By: #### F EBC #### [address] [address] Sample Case Porter: Pete Ward MD #### CDP #### [address] [place], [place] 2532583 Sample Case Porter: Torres Rick MD Lactic Acidon 03-21-2023 Lactate [Moles/Vol] 0.8 mmol/L Normal 0.5-2.2 [facility] Comment on above: Performed By: #### H H #### [address] [place] [address] Sample Case Porter: Torres Rick MD PTon 03-21-2023 INR Coag (PPP) [Relative time] 1.3 {INR} Normal [facility] Comment on above: Result Comment: Therapeutic Range: Moderate Anticoagulant Intensity: INR = 2.0-3.0 High Anticoagulant Intensity: INR = 2.5-3.5 Performed By: #### P T #### [facility] [address] [place] [address] [place] [address] Sample Case Porter: Torres Rick MD PT Coag (PPP) [Time] 16.0 s High 11.9-14.8 [facility] Comment on above: Performed By: #### P T #### [facility] [address] [place] [address] Dr. [place], [place] [phone] Sample Case Porter: Torres Rick MD Troponinon 03-21-2023 Troponin, High Sens 29 ng/L High 0-22 [facility] Comment on above: Result Comment: High Sensitivity Troponin values cannot be compared with other Troponin methodologies. Performed By: #### F EBC #### [address] [id number] Sample Case Porter: Pete Ward MD #### CDP #### [address] [place], [place] [id number] Sample Case Porter: Torres Rick MD Troponin, High Sens 30 ng/L High 0-22 [facility] Comment on above: Result Comment: High Sensitivity Troponin values cannot be compared with other Troponin methodologies. Performed By: #### F EBC #### [address] [address] Sample Case Porter: Pete Ward MD #### CDP #### [address] [place] [id number] Sample Case Porter: Torres Rick MD Type + Screenon 03-21-2023 Type + Screen Sample Expiration 03/24/2023,2359 Arm Band Number [id number] ABO/Rh(D) A POSITIVE Antibody Screen NEGATIVE Unit Number [id number] Blood Component Type Leukocyte Reduced Red Cell Unit Division 00 Status of Unit TRANSFUSED Transfusion Status OK TO TRANSFUSE Crossmatch Result COMPATIBLE Unit Number [id number] Blood Component Type Leukocyte Reduced Red Cell Unit Division 00 Status of Unit TRANSFUSED Transfusion Status OK TO TRANSFUSE Crossmatch Result COMPATIBLE Unit Number [id number] Blood Component Type Leukocyte Reduced Red Cell Unit Division 00 Status of Unit TRANSFUSED Transfusion Status OK TO TRANSFUSE Crossmatch Result COMPATIBLE Normal [facility] Comment on above: Performed By: #### F EBC #### [address] [address] Sample Case Porter: Pete Ward MD #### CDP #### [facility] [address] [place] [address] Dr. [place], [place] 8443083 Sample Case Porter: Torres Rick MD Urinalysis w/ Microon 2022 Bacteria TRACE Abnormal NONE [facility] Comment on above: Performed By: #### F EBC #### [address] [address] Sample Case Porter: Pete Ward MD #### CDP #### [facility] [address] [place] [address] Dr. [place], [place] [phone] Sample Case Porter: Torres Rick MD Bilirubin, SemiQt,Ur Negative Normal NEG [facility] Comment on above: Performed By: #### F EBC #### [address] [address] Sample Case Porter: Pete Ward MD #### CDP #### [address] [place], [place] 4815383 Sample Case Porter: Torres Rick MD Blood, Urine 1+ Abnormal NEG [facility] Comment on above: Performed By: #### F EBC #### [address] [address] Sample Case Porter: Pete Ward MD #### CDP #### [facility] [address] [place] [address] [place] [address] Sample Case Porter: Torres Rick MD Clarity (U) Clear Normal CLEAR [facility] Comment on above: Performed By: #### F EBC #### [address] [address] Sample Case Porter: Pete Ward MD #### CDP #### [facility] [address] [place] [address] Dr. [place], [place] 4101583 Sample Case Porter: Torres Rick MD Color (U) Yellow Normal YEL [facility] Comment on above: Performed By: #### F EBC #### [address] [address] Sample Case Porter: Pete Ward MD #### CDP #### [facility] [address] [place] [address] Dr. [place], [place] [id number] Sample Case Porter: Torres Rick MD Epithelial cells LM Ql (Urine sed) 0 TO 2 Normal 0-5 [facility] Comment on above: Performed By: #### F EBC #### [address] [address] Sample Case Porter: Pete Ward MD #### CDP #### [address] [place], [place] 8982883 Sample Case Porter: Torres Rick MD Glucose Ql (U) Negative Normal NEG [facility] Comment on above: Performed By: #### F EBC #### [address] [address] Sample Case Porter: Pete Ward MD #### CDP #### [address] [place], [place] 0841283 Sample Case Porter: Torres Rick MD Ketones Ql (U) Negative Normal NEG [facility] Comment on above: Performed By: #### F EBC #### [address] [address] Sample Case Porter: Pete Ward MD #### CDP #### [address] [place], [place] 2218083 Sample Case Porter: Torres Rick MD Leukocyte esterase Test strip Ql (U) SMALL Abnormal NEG [facility] Comment on above: Performed By: #### F EBC #### [address] [address] Sample Case Porter: Pete Ward MD #### CDP #### [facility] [address] [place] [address] [place] [address] Sample Case Porter: Torres Rick MD Nitrite,Ur Negative Normal NEG [facility] Comment on above: Performed By: #### F EBC #### [address] [address] Sample Case Porter: Pete Ward MD #### CDP #### [address] [place] [address] Sample Case Porter: Torres Rick MD PH,Ur 6.0 Normal 5.0-9.0 [facility] Comment on above: Performed By: #### F EBC #### [address] [address] Sample Case Porter: Pete Ward MD #### CDP #### [address] [place] [address] Sample Case Porter: Torres Rick MD Protein Ql (U) Negative Normal NEG [facility] Comment on above: Performed By: #### F EBC #### [address] [address] Sample Case Porter: Pete Ward MD #### CDP #### [facility] [address] [place] [address] [place] [address] Sample Case Porter: Torres Rick MD Spec. [place],Ur 1.010 Normal 1.010-1.020 [facility] Comment on above: Performed By: #### F EBC #### [address] [address] Sample Case Porter: Pete Ward MD #### CDP #### [facility] [address] [place] [address] Dr. [place], [place] [phone] Sample Case Porter: Torres Rick MD Urine RBC's 2 TO 5 Normal 0-2 [facility] Comment on above: Performed By: #### F EBC #### [facility] [address] [place] [address] Sample Case Porter: Pete Ward MD #### CDP #### [facility] [address] [place] [address] Dr. [place], [place] 0008283 Sample Case Porter: Torres Rick MD Urine WBC's 0 TO 2 Normal 0-5 [facility] Comment on above: Performed By: #### F EBC #### [address] [address] Sample Case Porter: Pete Ward MD #### CDP #### [address] [place], [place] 0041783 Sample Case Porter: Torres Rick MD Urobilinogen,Ur Normal Normal 0.0-1.0 [facility] Comment on above: Performed By: #### F EBC #### [address] [address] Sample Case Porter: Pete Ward MD #### CDP #### [address] [place] [address] Sample Case Porter: Torres Rick MD XR CHEST (2 VW)on 03-21-2023 XR CHEST (2 VW) EXAMINATION: TWO XRAY VIEWS OF THE CHEST 03/21/2023 12:28 am COMPARISON: Portable chest x-ray on 02/08/2016. HISTORY: ORDERING SYSTEM PROVIDED HISTORY: shortness of breath TECHNOLOGIST PROVIDED HISTORY: shortness of breath FINDINGS: Cardiac size appears to be mildly larger, currently top normal. There is [id number] pulmonary vascular congestion/cephalizat ion since. Evidence of [...] Pito Merino MD 03/21/[address] [facility] XR ELBOW RIGHT (2 VIEWS)on 1 [...] Torres Scruggs MD 03/21/[address] [facility] CBC AUTO DIFFon 04-29-2021 BASO # 0.1 103/ul Normal 0.0-0.1 [facility] Comment on above: Performed By: #### C BC #### [facility] [address] [place] [address] [address] Ishmael George Basophils/100 WBC (Bld) 0.7 % Normal 0.2-2.0 [facility] Comment on above: Performed By: #### C BC #### [facility] [address] [place] [address] [address] Ishmael George EO # 0.1 103/ul Normal 0.0-0.7 [facility] Comment on above: Performed By: #### C BC #### [facility] [address] [place] [address] [address] Ishmael George Eosinophils/100 WBC (Bld) 1.0 % Normal 0.9-7.0 [facility] Comment on above: Performed By: #### C BC #### [facility] [address] [place] [address] Dr. Ishmael George Erythrocyte distribution width (RBC) [Ratio] 18.0 % Critically high 11.0-15.0 [facility] Comment on above: Performed By: #### C BC #### [facility] [address] [place] [address] Dr. Ishmael George Hematocrit (Bld) [Volume fraction] 44.6 % Normal 42.0-54.0 [facility] Comment on above: Performed By: #### C BC #### [facility] [address] [place] [address] Dr. Ishmael George Hemoglobin (Bld) [Mass/Vol] 13.0 g/dL Critically low 14.0-18.0 [facility] Comment on above: Performed By: #### C BC #### [facility] [address] [place] [address] Dr. Ishmael George IG # 0.03 10e3/ul Normal 0.00-0.03 [facility] Comment on above: Performed By: #### C BC #### [facility] [address] [place] [address] Dr. Ishmael George IG % 0.3 % Normal 0.0-0.5 [facility] Comment on above: Performed By: #### C BC #### [facility] [address] [place] [address] Dr. Ishmael George LYMPH # 1.0 103/ul Critically low 1.2-3.8 [facility] Comment on above: Performed By: #### C BC #### [facility] [address] [place] [address] Dr. Ishmael George Lymphocytes/100 WBC (Bld) 9.2 % Critically low 20.5-6 0.0 [facility] Comment on above: Performed By: #### C BC #### [facility] [address] [place] [address] Dr. Ishmael George MANUAL DIFF REQ NO Normal [facility] Comment on above: Performed By: #### C BC #### [facility] [address] [address] [address] Ishmael George MCH (RBC) [Entitic mass] 25.8 pg Critically low 25.9-34 .0 [facility] Comment on above: Performed By: #### C BC #### [facility] [address] [place] [address] Dr. Ishmael George MCHC (RBC) [Mass/Vol] 29.1 g/dL Critically low 29.9-35.2 [facility] Comment on above: Performed By: #### C BC #### [facility] [address] [place] [address] Dr. Ishmael George MCV (RBC) [Entitic vol] 88.7 fL Normal 80.0-94.0 [facility] Comment on above: Performed By: #### C BC #### [facility] [address] [place] [address] Dr. Ishmael George MONO # 0.8 103/ul Normal 0.3-0.8 [facility] Comment on above: Performed By: #### C BC #### [facility] [address] [place] [address] Dr. Ishmael George Monocytes/100 WBC (Bld) 7.7 % Normal 1.7-12.0 [facility] Comment on above: Performed By: #### C BC #### [facility] [address] [place] [address] Dr. Ishmael George NEUT # 8.7 103/ul Critically high 1.4-6.5 [facility] Comment on above: Performed By: #### C BC #### [facility] [address] [place] [address] Dr. Ishmael George Neutrophils/100 WBC (Bld) 81.1 % Critically high 43.0- 75.0 [facility] Comment on above: Performed By: #### C BC #### [facility] [address] [place] [address] Dr. Ishmael George Platelet mean volume (Bld) [Entitic vol] 12.2 fL Normal 9.5-13.5 [facility] Comment on above: Performed By: #### C BC #### [facility] [address] [place], [place] [address] Dr. Ishmael George PLT 274 103/ul Normal 150-450 [facility] Comment on above: Performed By: #### C BC #### [facility] [id number] Ishmael George RBC 5.03 106/ul Normal 4.70-6.10 [facility] Comment on above: Performed By: #### C BC #### [facility] [address] [place], [place] [address] Dr. Ishmael George WBC 10.8 103/ul Normal 4.0-11.0 [facility] Comment on above: Performed By: #### C BC #### [facility] [id number] Ishmael George CT HEAD WO CONon [...] KYLE MAX Date: 2021-04-29 04:19 Normal [facility] PROF 14(COMP METB)on 021 Albumin [Mass/Vol] 3.3 g/dL Critically low 3.5-5.0 Th [facility] Comment on above: Performed By: #### C MP #### [facility] [address] [address] [address] Ishmael George Albumin/Globulin [Mass ratio] 0.7 {ratio} Normal [facility] Comment on above: Performed By: #### C MP #### [facility] [address] [address] [address] Ishmael George ALP [Catalytic activity/Vol] 120 U/L Normal 38-126 [facility] Comment on above: Performed By: #### C MP #### [facility] [address] [address] [address] Ishmael George ALT [Catalytic activity/Vol] 24 U/L Normal 21-72 [facility] Comment on above: Performed By: #### C MP #### [facility] [address] [place] [address] Dr. Ishmael George Anion gap [Moles/Vol] 4.9 mmol/L Normal [facility] Comment on above: Performed By: #### C MP #### [facility] [address] [place] [address] Dr. Ishmael George AST [Catalytic activity/Vol] 21 U/L Normal 17-59 [facility] Comment on above: Performed By: #### C MP #### [facility] [address] [place] [address] Dr. Ishmael George Bilirubin [Mass/Vol] 0.4 mg/dL Normal 0.2-1.3 [facility] Comment on above: Performed By: #### C MP #### [facility] [address] [place] [address] Dr. Ishmael George Calcium [Mass/Vol] 10.0 mg/dL Normal 8.4-10.2 [facility] Comment on above: Performed By: #### C MP #### [facility] [address] [address] [address] Ishmael George Chloride [Moles/Vol] 93 mmol/L Critically low 98-107 [facility] Comment on above: Performed By: #### C MP #### [facility] [address] [place] [address] Dr. Ishmael George CO2 [Moles/Vol] 39.8 mmol/L Critically high 22.0-30.0 [facility] Comment on above: Performed By: #### C MP #### [facility] [address] [address] [address] Ishmael George Creatinine [Mass/Vol] 0.82 mg/dL Normal 0.66-1.25 [facility] Comment on above: Performed By: #### C MP #### [facility] [address] [address] [address] Ishmael George EGFR-AF SOUTH [place]UD[place]ESE >60 Normal >=60 [facility] Comment on above: Performed By: #### C MP #### [facility] [address] [address] [address] Ishmael George EGFR-NON AF [place] >60 Normal >=60 [facility] Comment on above: Performed By: #### C MP #### [facility] [address] [place] [address] Dr. Ishmael George Globulin (S) [Mass/Vol] 4.9 g/dL Normal [facility] Comment on above: Performed By: #### C MP #### [facility] [address] [address] [address] Ishmael George Glucose [Mass/Vol] 122 mg/dL Critically high 74-106 [facility] Comment on above: Performed By: #### C MP #### [facility] [address] [address] [address] Ishmael George Potassium [Moles/Vol] 4.7 mmol/L Normal 3.4-5.0 [facility] Comment on above: Performed By: #### C MP #### [facility] [address] [address] [address] Ishmael George Protein [Mass/Vol] 8.2 g/dL Normal 6.1-8.2 [facility] Comment on above: Performed By: #### C MP #### [facility] [address] [address] [address] Ishmael George Sodium [Moles/Vol] 133 mmol/L Critically low 137-145 [facility] Comment on above: Performed By: #### C MP #### [facility] [address] [place], [place] [address] Dr. Ishmael George Urea nitrogen [Mass/Vol] 12.0 mg/dL Normal 9.0-20.0 [facility] Comment on above: Performed By: #### C MP #### [facility] [address] [place], [place] [address] Dr. Ishmael George Urea nitrogen/Creatinine [Mass ratio] 14.6 mg/mg Normal [facility] Comment on above: Performed By: #### C MP #### [facility] [address] [place], [place] [address] Dr. Ishmael George Provider Letteron 01-13-2020 Provider Letter January 13, 2020 DAMI ALCALA [facility] [address] [place] [address] DAMI ALCALA 1950 Dear Dami Alcala, This [...] advance. Sincerely, [facility] [address] [address] [facility], [facility] Coding Summary.on 07-15-2019 Coding Summary. CODING DATE: 07/15/2019 FINAL [facility] STATUS: Home (Routine DC) PAYOR: Medicare APC [...] on the left side of the body) 04451 Transversus abdominis Miles Damon JR, DO 07/12/2019 plane (TAP) block (abdominal plane block, rectus sheath block) unilateral; by injection(s) (includes imaging guidance, when performed) XP Separate practitioner, a service that is distinct because it was performed by a different practitioner [id number] Anesthesia for hernia Miles Damon JR, DO 07/12/2019 repairs in lower abdomen; not otherwise specified NOTE: The code number assigned matches the documented diagnosis and / or procedure in the patient's chart. However, the narrative phrase printed from the coding software may appear abbreviated, or result in slightly different terminology. Revised Coded By: Ghazal Dixon Revised Date Saved: 07/15/2019 02:55 pm Normal [facility] Main OR Intraoperative Recor don 07-15-2019 Main OR Intraoperative Record IntraOp Document Type FT Summary Primary Physician: Kyle ESPINAL MD Finalized Date/Time: 07/15/19 13:48:25 Pt. Name: DAMI ALCALA/Sex: 1950 Male Med Rec #: [id number] Physician: Kyle ESPINAL MD Financial #: [id number] Pt. Type: A Room/Bed: AS04 Admit/Disch: 07/12/19 [...] to review and send charges Cherelle Ng RENAL TECHNICIAN Case Attendance FT Entry 1 Entry 2 Entry 3 Case Attendee Nelson MEDLEY DO, Miles ESPINAL MD, Kyle Reich RN, CNOR, Peyton Role Performed Anesthesiologist of Surgeon - Primary PUBLIC WELFARE DIRECTOR Record Time In 07/12/19 07:43:00 07/12/19 07:43:00 [...] Thomason RN Role Performed Scrub - Primary Professional Athlete - Primary Time In 07/12/19 07:43:00 07/12/19 [...] and tissue Entry 1 Skin Integrity Intact, En[place], Warm, and Skin Abnormality No Dry Outcomes [...] Items DRESSING GAUZE 4 X 4 2'S [5183][F] Site and Details ABDOMEN - SKIN AFFIX, [...] safely administered during the perioperative period For [place] please see scanned medication reconcilliation form for medications used at the field during the procedure. Implant Log FT Pre-Care Text: Records devices implanted during the operative or invasive procedure Entry 1 Procedure INGUINAL HERNIA REPAIR Implant/Explant Implant ADULT(Left) Implant Identification FT Description MESH PLUG PROLOOP Lot Number [id number] PREFORMED XLARGE [80711][F] Assisted Living Nursing Director FT-ATRIUM Catalog ?# 53170 [F] Size X-LARGE Expiration Date 09/21/23 Unique Device [id number] Human Readable {01}[id number] Identifier (LAVELL) Barcode Machine Readable [id number] Barcode Usage Data FT Implant Site Other [...] BLANKET MISTRAL AIR Quantity 1 Aid TORSO [[id number]][F] Fluid/Henderson Unit Mistral warming system Setting HIGH/43C Body Site Upper anterior torso Last Modified By: Josselyn Giron RN 07/12/19 08:18:01 Case Comments Finalized By: Jillian Ng CST Document Signatures Signed By: Josselyn Giron RN 07/12/19 09:19 Josselyn Giron RN 07/12/19 10:24 Jillian Ng CST 07/15/19 13:48 Normal [facility] History and Physicalon 07-12 History and Physical Patient: DAMI ALCALA Age: 69 years Sex: Male : 1950 Associated Diagnoses: None Author: Kyle ESPINAL MD Subjective no changes to H & P Normal [facility] Comment on above: Result Comment: Elec tronically Signed By: Kyle ESPINAL MD\.br\Date and Time Signed: 07/12/19 07:32 EST Inpatient Patient Summaryon 07-12-2019 Inpatient Patient Summary (Inserted Imag e. Unable to display) [address] [address] [facility] Clinical Discharge Instructions PERSON INFORMATION Name: DAMI ALCALA [facility]#:[id number] PHYSICIANS Admitting Physician: Kyle ESPINAL MD Attending Physician: Kyle ESPINAL MD PCP: POLINA QUEZADA MD Discharge Diagnosis: Direct left inguinal hernia Comment: PATIENT EDUCATION INFORMATION Instructions: Post Op Patient Instructions - FT (Custom) Medication Leaflets: Follow up: With: Address: When: Kyle ESPINAL [address] [place] [address] Business (1) Within 7 to 10 days Comments: in the [place] office. MEDICATION LIST New Medications [id number], [address], [place] [id number], [phone] acetaminophen-hydroco done (Kensett 325 mg-5 mg oral tablet) 1 Tablets [...] for physician visits, oxygen conservation. Comment: Normal [facility] Main OR PACU I Recordon Main OR PACU I Record PACU Phase I Docum ent Type FT Summary Primary Physician: Kyle ESPINAL MD Finalized Date/Time: 07/12/19 09:57:37 Pt. Name: DAMI ALCALA /Sex: 1950 Male Med Rec #: [id number] Physician: Kyle ESPINAL MD Financial #: [id number] Pt. Type: A Room/Bed: [address] [address] Admit/Disch: 07/12/19 05:53:09 - Institution: Case Times [...] By: Keara Lund RN 07/12/19 09:57 Normal [facility] Main OR Preoperative Recordo n 07-12-2019 Main OR Preoperative Record PreOp Document Type FT Summary Primary Physician: Kyle ESPINAL MD Finalized Date/Time: 07/12/19 08:03:21 Pt. Name: DAMI ALCALA Cherelle Christopher/Sex: 1950 Male Med Rec #: [id number] Physician: Kyle ESPINAL MD Financial #: [id number] Pt. Type: A Room/Bed: 09/03 Admit/Disch: 07/12/19 [...] By: Josselyn Giron RN 07/12/19 08:03 Normal [facility] Operative Reporton 0 Operative Report Date [...] condition. Kyle Espinal M.D. gls Dictated: 07/12/2019 #[id number] Typed: 07/12/2019 #[id number] cc: Harrison Sow M.D. [facility] Comment on above: Result Comment: Elec [...] Miles Damon Jr., Trent gls Dictated: 07/12/2019 #[id number] Typed: 07/12/2019 #[id number] cc: Milse Damon Jr., D.O. Normal [facility] Comment on above: Result Comment: Elec tronically Signed By: Miles Damon JR, DO\.br\Date and Time Signed: 07/12/19 10:11 EST Patient Education - Texton 0 07-12-2019 Patient Education - Text (Inserted Image . Unable to display) Normal [facility] Progress Note-Physicianon Progress Note-Physician Patient: DAMI [...] list: All Problems Hypertension / SNOMED CT 2423758769 / Confirmed Smoker / SNOMED CT 844728473 / Confirmed Added secondary to documentation in Social History. Tobacco abuse / SNOMED CT 761215479 / Confirmed COPD with hypoxia / SNOMED CT 29279236 / Confirmed Requires oxygen therapy / SNOMED CT 3258079028 / Confirmed Left inguinal hernia / SNOMED CT 595270002 / Confirmed Dyspnea on exertion / SNOMED CT 451055275 / Confirmed, Active Problems (7) COPD with hypoxia Dyspnea on exertion Hypertension Left inguinal hernia Requires oxygen therapy Smoker Tobacco abuse Histories Past Medical History: No active or resolved past medical history items have been selected or recorded. Family History: Cancer of liver Father Procedure history: Tear of biceps tendon (5567772298). Bilateral vasectomy (663499772). Social History Social & Psychosocial Habits Alcohol [...] review: No qualifying data available . Plan [place] [employer] Anesthesiologists (ASA) physical status classification: Class III. Anesthetic Preoperative Plan Anesthesia: General. , Regional LEFT TAP BLOCK. Anesthetic plan, risks, benefits, and alternatives discussed with the patient and/or family. Pt. and/or family present and agree to proceed as planned.. Discussed the importance of abstaining from tobacco products, and offered counseling if desired. Normal [facility] Comment on above: Result Comment: Elec tronically Signed By: Miles Damon JR, DO\.br\Date and Time Signed: 07/12/19 08:41 EST Coding Summary.on 07-03-2019 Coding Summary. CODING DATE: 07/03/2019 FINAL [facility] STATUS: Home (Routine DC) PAYOR: Medicare APC [...] CphT Date Saved: 07/03/2019 12:32 pm Normal [facility] XR Chest 2 Viewson 0 XR [...] M.D. Transcribed by: MARIETTA Technologist: NOEMI Normal [facility] BUNon 07-02-2019 Urea nitrogen [Mass/Vol] 12 mg/dL Normal 5-21 [facility] Comment on above: Performed By: #### 2 895720, 6898734, 20438218, 5971652, 5509303, 4712639 #### [facility] [address] [place] [address] CBC w/Indiceson 07-02-2019 Erythrocyte distribution width (RBC) [Ratio] 20.6 % High 10.9-14.2 [facility] Comment on above: Performed By: #### 2 957577, 5889195, 64600625, 0737383, 1728850, 1038641 #### [facility] [address] [place] [address] Hematocrit (Bld) [Volume fraction] 35.6 % Low 37.7-49.0 [facility] Comment on above: Performed By: #### 2 672861, 2551773, 95496960, 4212660, 6670184, 2765891 #### [facility] [address] [place] [address] Hemoglobin (Bld) [Mass/Vol] 10.5 g/dL Low 13.5-17.5 [facility] Comment on above: Performed By: #### 2 280286, 8106720, 20338763, 6583380, 5259538, 1121696 #### [facility] [address] [place] [address] MCH (RBC) [Entitic mass] 20.2 pg Low 27.0-34.0 [facility] Comment on above: Performed By: #### 2 330242, 7834143, 45402077, 7041752, 2017237, 8954937 #### [facility] [address] [place] [address] MCHC (RBC) [Mass/Vol] 29.4 g/dL Low 31.4-36.0 [facility] Comment on above: Performed By: #### 2 250683, 9317890, 04709809, 8841780, 8499028, 4534372 #### [facility] [address] [place] [address] MCV (RBC) [Entitic vol] 68.7 fL Low 80.0-100.0 [facility] Comment on above: Performed By: #### 2 652697, 6049389, 43490056, 8711956, 6884031, 4530470 #### [facility] [address] [place] [address] Platelet mean volume (Bld) [Entitic vol] 9.3 fL Normal 6.4-10.8 [facility] Comment on above: Performed By: #### 2 124066, 4375020, 26565859, 2676302, 1429966, 0691038 #### [facility] [address] [place] [address] Platelets (Bld) [#/Vol] 353.0 E9/L Normal 150.0-500.0 [facility] Comment on above: Performed By: #### 2 365344, 2224742, 05712127, 2665360, 9981605, 0711930 #### [facility] [address] [place] [address] RBC (Bld) [#/Vol] 5.2 E12/L Normal 4.3-5.9 [facility] Comment on above: Performed By: #### 2 064649, 9751985, 42293884, 0235758, 5232194, 9350741 #### [facility] [address] [place] [address] WBC corrected for nucl RBC Auto (Bld) [#/Vol] 12.0 E9/L High 4.0-11.0 [facility] Comment on above: Performed By: #### 2 401452, 9393556, 93449407, 1478992, 0255130, 6384872 #### [facility] [address] [place] [address] Creatinineon 07-02-2019 Creatinine [Mass/Vol] 0.7 mg/dL Normal 0.5-1.3 [facility] Comment on above: Performed By: #### 2 158145, 5369810, 97664464, 5930033, 7411937, 1048438 #### [facility] [address] [place] [address] Glucoseon 07-02-2019 Glucose [Mass/Vol] 94 mg/dL Normal 55-199 [facility] Comment on above: Performed By: #### 2 535331, 4897387, 00316282, 6584220, 7493245, 4598359 #### [facility] [address] [place] [address] Lyteson 07-02-2019 Anion gap [Moles/Vol] 11 mmol/L Normal 6-16 [facility] Comment on above: Performed By: #### 2 170393, 4013427, 25529605, 7107056, 2658667, 7134201 #### [facility] [address] [place] [address] Chloride [Moles/Vol] 94 mmol/L Low 101-111 [facility] Comment on above: Performed By: #### 2 572940, 7423791, 45874674, 4758437, 1313600, 5731280 #### [facility] [address] [place] [address] CO2 [Moles/Vol] 33 mmol/L High 21-31 [facility] Comment on above: Performed By: #### 2 601061, 4625884, 56140586, 3288849, 6154534, 7101983 #### [facility] [address] [place] [address] Potassium [Moles/Vol] 4.2 mmol/L Normal 3.5-5.3 [facility] Comment on above: Performed By: #### 2 219366, 4889280, 90850796, 4872172, 0871068, 4469347 #### [facility] [address] [place] [address] Sodium [Moles/Vol] 134 mmol/L Low 135-145 [facility] Comment on above: Performed By: #### 2 681867, 1721499, 70931881, 8819499, 1933941, 6029524 #### [facility] [address] [place] [address] eGFRon 07-02-2019 GFR/1.73 sq M predicted among blacks MDRD (S/P/Bld) [Vol rate/Area] mL/min/{1.73_m2} Normal >=59 [facility] Comment on above: Order Comment: Order added by Discern Expert. Result Comment: eGFR is race adjusted. AA=. Performed By: #### 2 531817, 4792060, 84635863, 6507829, 6450340, 1144737 #### [facility] [address] [place] [address] GFR/1.73 sq M predicted among non-blacks MDRD (S/P/Bld) [Vol rate/Area] mL/min/{1.73_m2} Normal >=59 [facility] Comment on above: Order Comment: Order added by Discern Expert. Result Comment: Bending Frame Operator abraham kidney disease could be indicated at eGFR's of less than 60 mL/min/1.73m2. Kidney failure is indicated at less than 15 mL/min/1.73m2. Performed By: #### 2 947489, 9558836, 78372409, 9789647, 0998703, 5831737 #### [facility] [address] [place] [address] BASIC METABOLIC PANELon 12-2 Calcium mass conc 8.7 mg/dL Normal 8.6-10.3 [facility] Comment on above: Order Comment: No: D o not add to previous draw Performed By: #### 0 0121, 22218, 65632, 81596, 73341, 59736, 73676 ####[facility] [place] [address], [facility] Chloride molar conc 94 mmol/L Low 98-107 [facility] Comment on above: Order Comment: No: D o not add to previous draw Performed By: #### 0 0121, 28265, 65535, 70320, 16797, 63968, 32895 ####[facility] [place] [address], [facility] CO2 molar conc 36 mmol/L High 21-31 [facility] Comment on above: Order Comment: No: D o not add to previous draw Performed By: #### 0 0121, 93054, 94757, 92329, 06007, 43535, 85131 ####[facility] [place] [address], [place] Creatinine mass conc 0.50 mg/dL Low 0.70-1.30 [facility] Comment on above: Order Comment: No: D o not add to previous draw Performed By: #### 0 0121, 50279, 59028, 97630, 05112, 78566, 01575 ####[facility] [place] [address], [facility] GFR/1.73 sq M predicted among blacks MDRD vol rate/area (S/P/Bld) mL/min/{1.73_m2} Normal >60 [facility] Comment on above: Order Comment: No: D o not add to previous draw Performed By: #### 0 0121, 09271, 17967, 83432, 13045, 95197, 25425 ####[facility] [place] [address], [facility] GFR/1.73 sq M predicted among non-blacks MDRD vol rate/area (S/P/Bld) mL/min/{1.73_m2} Normal >60 [facility] Comment on above: Order Comment: No: D o not add to previous draw Performed By: #### 0 0121, 30910, 88382, 10442, 85119, 27747, 25331 ####[facility] [place] [address], [facility] Glucose mass conc 121 mg/dL High 70-100 [facility] Comment on above: Order Comment: No: D o not add to previous draw Performed By: #### 0 0121, 74396, 31884, 88426, 12441, 44321, 00941 ####[facility] [place] [address], [facility] Potassium molar conc 4.3 mmol/L Normal 3.5-5.1 [facility] Comment on above: Order Comment: No: D o not add to previous draw Performed By: #### 0 0121, 50961, 59200, 85024, 86248, 41909, 06213 ####[facility] [place] [address], [facility] Sodium molar conc 132 mmol/L Low 136-145 [facility] Comment on above: Order Comment: No: D o not add to previous draw Performed By: #### 0 0121, 10258, 59537, 02345, 80068, 29244, 92852 ####[facility] Urea nitrogen mass conc 7 mg/dL Normal 7-25 T [facility] Comment on above: Order Comment: No: D o not add to previous draw Performed By: #### 0 0121, 34086, 57409, 83295, 44614, 24898, 12752 ####[facility] CBC COMPLETE BLOOD COUNTon 1 07-25-2017 Erythrocyte distribution width Auto Ratio (RBC) 23.4 % High 11.5-15.0 [facility] Comment on above: Order Comment: No: D o not add to previous draw Performed By: #### 0 0121, 59366, 52227, 68110, 89422, 18488, 36406 ####[facility] Hematocrit Auto Volume Fraction (Bld) 31.4 % Low 39.0-50.0 [facility] Comment on above: Order Comment: No: D o not add to previous draw Performed By: #### 0 0121, 61701, 91366, 33139, 61317, 39894, 73407 ####[facility] Hemoglobin mass conc (Bld) 8.4 g/dL Low 13.0-17.0 [facility] Comment on above: Order Comment: No: D o not add to previous draw Performed By: #### 0 0121, 78442, 73735, 37291, 53790, 71572, 01444 ####[facility] IMM PLATELET FRAC 7.9 % High 0.8-6.3 [facility] Comment on above: Order Comment: No: D o not add to previous draw Performed By: #### 0 0121, 41043, 33587, 78552, 96535, 57249, 04511 ####[facility] MCH Auto Entitic mass (RBC) 19.2 pg Low 27.0-33.0 [facility] Comment on above: Order Comment: No: D o not add to previous draw Performed By: #### 0 0121, 39241, 36903, 20099, 05169, 92792, 58431 ####[facility] MCHC Auto mass conc (RBC) 26.8 g/dL Low 32.0-35.0 [facility] Comment on above: Order Comment: No: D o not add to previous draw Performed By: #### 0 0121, 12659, 65215, 60242, 61757, 86409, 79368 ####[facility] [facility].[address] MCV Auto Entitic volume (RBC) 71.9 fL Low 82.0-98.0 [facility] Comment on above: Order Comment: No: D o not add to previous draw Performed By: #### 0 0121, 25909, 08150, 18437, 72312, 69996, 11578 ####[facility] [facility].[address] Nucleated RBC/100 WBC Ratio (Bld) 0 % Normal 0-0 [facility] Comment on above: Order Comment: No: D o not add to previous draw Performed By: #### 0 0121, 92765, 01945, 71964, 16955, 45703, 27281 ####[facility] PLAT CNT 229 10*3/uL Normal 150-400 [facility] Comment on above: Order Comment: No: D o not add to previous draw Performed By: #### 0 0121, 31427, 25288, 06652, 80999, 75803, 56622 ####[facility] RBC Auto #/vol (Bld) 4.37 10*6/uL Normal 4.20-5.70 Th e [facility] Comment on above: Order Comment: No: D o not add to previous draw Performed By: #### 0 0121, 86605, 77892, 59924, 90149, 65415, 73499 ####[facility] [facility].[address] WBC Auto #/vol (Bld) 6.83 10*3/uL Normal 4.00-10.60 Th e [facility] Comment on above: Order Comment: No: D o not add to previous draw Performed By: #### 0 0121, 51352, 92872, 08364, 16639, 62445, 05552 ####[address] BASIC METABOLIC PANELon 12-1 Calcium mass conc 8.6 mg/dL Normal 8.6-10.3 [facility] Comment on above: Order Comment: No: D o not add to previous draw Performed By: #### 0 0121, 87254, 10352, 54782, 13869, 33539, 63893 ####[place] [address] [address] Chloride molar conc 94 mmol/L Low 98-107 [facility] Comment on above: Order Comment: No: D o not add to previous draw Performed By: #### 0 0121, 33543, 46875, 04295, 21761, 23454, 41911 ####[facility] CO2 molar conc 38 mmol/L High 21-31 [facility] Comment on above: Order Comment: No: D o not add to previous draw Performed By: #### 0 0121, 08877, 92479, 56587, 68237, 81267, 22388 ####[facility] [place] [address], [facility] Creatinine mass conc 0.49 mg/dL Low 0.70-1.30 [facility] Comment on above: Order Comment: No: D o not add to previous draw Performed By: #### 0 0121, 20224, 43612, 77292, 13199, 29927, 31601 ####[facility] [place] [address], [facility] GFR/1.73 sq M predicted among blacks MDRD vol rate/area (S/P/Bld) mL/min/{1.73_m2} Normal >60 [facility] Comment on above: Order Comment: No: D o not add to previous draw Performed By: #### 0 0121, 51112, 41554, 07662, 60941, 15642, 98720 ####[facility] [place] [address], [facility] GFR/1.73 sq M predicted among non-blacks MDRD vol rate/area (S/P/Bld) mL/min/{1.73_m2} Normal >60 [facility] Comment on above: Order Comment: No: D o not add to previous draw Performed By: #### 0 0121, 64168, 96828, 76380, 29653, 92572, 97314 ####[facility] [place] [address], [facility] Glucose mass conc 79 mg/dL Normal 70-100 [facility] Comment on above: Order Comment: No: D o not add to previous draw Performed By: #### 0 0121, 87707, 17763, 94506, 20305, 33129, 62837 ####[facility] [place] [address], [facility] Potassium molar conc 4.2 mmol/L Normal 3.5-5.1 [facility] Comment on above: Order Comment: No: D o not add to previous draw Performed By: #### 0 0121, 31324, 68359, 23564, 90457, 09337, 27406 ####[facility] [facility].[address] Sodium molar conc 135 mmol/L Low 136-145 [facility] Comment on above: Order Comment: No: D o not add to previous draw Performed By: #### 0 0121, 86514, 22259, 22477, 39611, 31651, 65562 ####[facility].[address] Urea nitrogen mass conc 7 mg/dL Normal 7-25 T [facility] Comment on above: Order Comment: No: D o not add to previous draw Performed By: #### 0 0121, 48778, 25014, 63063, 58825, 31284, 63532 ####[facility]3000 [facility].[address] CBC COMPLETE BLOOD COUNTon 1 07-24-2017 Erythrocyte distribution width Auto Ratio (RBC) 23.3 % High 11.5-15.0 [facility] Comment on above: Order Comment: No: D o not add to previous draw Performed By: #### 0 0121, 26616, 87150, 73178, 82374, 51089, 77803 ####[facility]3000 [facility].[address] Hematocrit Auto Volume Fraction (Bld) 33.8 % Low 39.0-50.0 [facility] Comment on above: Order Comment: No: D o not add to previous draw Performed By: #### 0 0121, 52052, 22931, 21384, 58761, 49321, 43638 ####[facility] [facility].[address] Hemoglobin mass conc (Bld) 8.9 g/dL Low 13.0-17.0 [facility] Comment on above: Order Comment: No: D o not add to previous draw Performed By: #### 0 0121, 78358, 69970, 80337, 46411, 09759, 36666 ####[facility] IMM PLATELET FRAC 8.8 % High 0.8-6.3 [facility] Comment on above: Order Comment: No: D o not add to previous draw Performed By: #### 0 0121, 12305, 77350, 26311, 19399, 84882, 89700 ####[facility] MCH Auto Entitic mass (RBC) 19.3 pg Low 27.0-33.0 [facility] Comment on above: Order Comment: No: D o not add to previous draw Performed By: #### 0 0121, 74906, 36526, 44528, 73481, 16691, 33143 ####[facility] MCHC Auto mass conc (RBC) 26.3 g/dL Low 32.0-35.0 [facility] Comment on above: Order Comment: No: D o not add to previous draw Performed By: #### 0 0121, 31406, 01734, 89746, 89950, 07375, 89865 ####[facility] MCV Auto Entitic volume (RBC) 73.2 fL Low 82.0-98.0 [facility] Comment on above: Order Comment: No: D o not add to previous draw Performed By: #### 0 0121, 73909, 97654, 21640, 85851, 85282, 53516 ####[facility] Nucleated RBC/100 WBC Ratio (Bld) 0 % Normal 0-0 [facility] Comment on above: Order Comment: No: D o not add to previous draw Performed By: #### 0 0121, 23361, 70463, 45371, 70311, 56266, 34425 ####[facility] [facility].[address] PLAT CNT 230 10*3/uL Normal 150-400 [facility] Comment on above: Order Comment: No: D o not add to previous draw Performed By: #### 0 0121, 95594, 00172, 82323, 98754, 11051, 92128 ####[facility] RBC Auto #/vol (Bld) 4.62 10*6/uL Normal 4.20-5.70 [facility] Comment on above: Order Comment: No: D o not add to previous draw Performed By: #### 0 0121, 92364, 86971, 88335, 66294, 54366, 49126 ####[facility] WBC Auto #/vol (Bld) 5.41 10*3/uL Normal 4.00-10.60 [facility] Comment on above: Order Comment: No: D o not add to previous draw Performed By: #### 0 0121, 05643, 55958, 15540, 39481, 11940, 65767 ####[facility] Cardiovascular Lab Reporton 05-23-2018 Cardiovascular Lab Report [facility] Patient [facility] MR #: [id number] of Physician: Brandy Castle M.D.Division of Service Date: 05/22/2018Cardiology Birthdate: 3Adult Cardiovascular Room #: 3AB [id number] [facility]ifi[facility] [place], [place] [address]Phone Fax Cardiovascular Laboratory ReportFINAL IMPRESSIONS:1. Moderately elevated [...] ofright internal jugular vein was obtained. A 6-Japanese 11 cm sheath wasinserted without difficulty.Right heart [...] 05/22/2018/03:27 Toño Ngo M.D.Date Trans: 05/23/2018 01:55 A/KristaN_JN:[id number] 68cc: Polina Webber M.D. [address] [place] [address] Sp Berry M.D. [facility]5 [facility] [address] Normal [facility] MAGNESIUM BLOODon 05-23-2018 Magnesium mass conc 1.9 mg/dL Normal 1.9-2.7 [facility] Comment on above: Order Comment: No: D o not add to previous draw Performed By: #### 0 0121, 38739, 86277, 10024, 23534, 13455, 68639 ####[facility] PROTHROMBIN TIMEon 8 INR Coag RelTime (PPP) 1.52 {INR} High 0.91-1.16 Th [facility] Comment on above: Order Comment: No: [...] OF ACTION, CLINICALEFFECTIVENESS, AND OPTIMAL THERAPEUTIC RANGE. [id number];108:231S-246S. Performed By: #### 0 0121, 89539, 84485, 85229, 79066, 72374, 71214 ####[facility] Prothrombin time (PT) Coag time (PPP) 18.4 s High 12.3-14.8 [facility] Comment on above: Order Comment: No: D o not add to previous draw Result Comment: ALL RESULTS MUST BE INTERPRETED WITH RESPECT TO BLOOD DRAWING ARTIFACTOR DILUTION ERROR OF ANTICOAGULANT AT THE TIME OF SAMPLING. Performed By: #### 0 0121, 09919, 78971, 73544, 22942, 44393, 37608 ####[facility] *BLOOD CULTUREon 05-22-2018 Bacteria identified in Blood by Culture Clinical Report: (D) Specimen: BLOOD CULTURE Collected: 05/22/2018 17:59 Status: Final Last Updated: 05/28/2018 06:25 (1) Right hand 1759 CULT RES (Final) No Growth Day 5 Normal [facility] Comment on above: Order Comment: No: D o not add to previous draw Performed By: #### 0 0121, 10927, 28011, 20962, 44191, 31169, 68174 ####[facility] Bacteria identified in Blood by Culture Clinical Report: (D) Specimen: BLOOD CULTURE Collected: 05/22/2018 11:16 Status: Final Last Updated: 05/27/2018 14:19 (1) Pt gone to heart and vas Lt hand CULT RES (Final) No Growth Day 5 Normal [facility] Comment on above: Order Comment: No: D o not add to previous draw Performed By: #### 0 0121, 47130, 27416, 70054, 39358, 19198, 90561 ####[facility] [place] [address], [facility] BASIC METABOLIC PANELon 12- Calcium mass conc 8.9 mg/dL Normal 8.6-10.3 [facility] Comment on above: Performed By: #### 0 0121, 78101, 36101, 59395, 25433, 14495, 41025 ####[facility] [place] [address], [facility] Chloride molar conc 91 mmol/L Low 98-107 [facility] Comment on above: Performed By: #### 0 0121, 39773, 03176, 93350, 85175, 07706, 17423 ####[facility] [place] [address], [facility] CO2 molar conc 35 mmol/L High 21-31 [facility] Comment on above: Performed By: #### 0 0121, 80453, 41201, 00373, 41434, 07526, 28417 ####[facility] [place] [address], [facility] Creatinine mass conc 0.83 mg/dL Normal 0.70-1.30 [facility] Comment on above: Performed By: #### 0 0121, 34771, 96216, 98480, 25107, 65631, 02197 ####[facility] [place] [address], [facility] GFR/1.73 sq M predicted among blacks MDRD vol rate/area (S/P/Bld) mL/min/{1.73_m2} Normal >60 [facility] Comment on above: Performed By: #### 0 0121, 37518, 39929, 09783, 54342, 00260, 83794 ####[facility] [place] [address], [place] GFR/1.73 sq M predicted among non-blacks MDRD vol rate/area (S/P/Bld) mL/min/{1.73_m2} Normal >60 [facility] Comment on above: Performed By: #### 0 0121, 54215, 25319, 01218, 51614, 36628, 71974 ####[facility] [place] [address], [facility] Glucose mass conc 88 mg/dL Normal 70-100 [facility] Comment on above: Performed By: #### 0 0121, 97570, 23376, 18846, 97769, 37100, 49460 ####[facility] [place] [address], [facility] Potassium molar conc 4.4 mmol/L Normal 3.5-5.1 [facility] Comment on above: Performed By: #### 0 0121, 88665, 85486, 14393, 14529, 66843, 79368 ####[facility] Sodium molar conc 132 mmol/L Low 136-145 [facility] Comment on above: Performed By: #### 0 0121, 99594, 33082, 66595, 91501, 60713, 76900 ####[facility] [place] [address], [facility] Urea nitrogen mass conc 18 mg/dL Normal 7-25 [facility] Comment on above: Performed By: #### 0 0121, 37126, 22382, 36556, 85801, 22415, 45764 ####[facility] [place] [address], [facility] CBC W/DIFFon 05-22-2018 ABS BASOPHILS 0.1 10*3/uL Normal 0.0-0.2 [facility] Comment on above: Order Comment: No: D o not add to previous draw Performed By: #### 0 0121, 07206, 10834, 86586, 51906, 60501, 68504 ####[facility] ABS IMM GRANS 0.0 10*3/uL Normal 0.0-0.2 [facility] Comment on above: Order Comment: No: D o not add to previous draw Performed By: #### 0 0121, 28452, 86327, 95698, 19746, 54712, 22516 ####[facility] ABS NEUTROPHILS 4.4 10*3/uL Normal 1.6-7.6 [facility] Comment on above: Order Comment: No: D o not add to previous draw Performed By: #### 0 0121, 48018, 27959, 44894, 84302, 43460, 70906 ####[facility]3000 [facility].[address] ANISO Moderate Normal [facility] Comment on above: Order Comment: No: D o not add to previous draw Performed By: #### 0 0121, 41707, 06002, 20727, 97489, 35757, 72258 ####[facility]3000 [facility].[address] Basophils Auto #/vol (Bld) 1.1 % High 0.0-1.0 [facility] Comment on above: Order Comment: No: D o not add to previous draw Performed By: #### 0 0121, 17815, 45777, 85253, 04681, 66393, 01755 ####[facility] [facility] [place] [place] [address], [facility] ELLIPTOCYTES Slight Normal [facility] Comment on above: Order Comment: No: D o not add to previous draw Performed By: #### 0 0121, 48649, 58461, 42948, 16642, 95544, 08299 ####[facility] [place] [address], [facility] Eosinophils Auto #/vol (Bld) 0.1 10*3/uL Normal 0.0-0.5 [facility] Comment on above: Order Comment: No: D o not add to previous draw Performed By: #### 0 0121, 77111, 16881, 95184, 03221, 13519, 77117 ####[facility] Eosinophils/100 WBC Auto (Bld) 1.4 % Normal 0.0-6.0 [facility] Comment on above: Order Comment: No: D o not add to previous draw Performed By: #### 0 0121, 31314, 77071, 31916, 62348, 18934, 98742 ####[facility] Erythrocyte distribution width Auto Ratio (RBC) 23.7 % High 11.5-15.0 [facility] Comment on above: Order Comment: No: D o not add to previous draw Performed By: #### 0 0121, 23905, 07054, 16236, 05833, 78679, 11067 ####[facility] Hematocrit Auto Volume Fraction (Bld) 33.7 % Low 39.0-50.0 [facility] Comment on above: Order Comment: No: D o not add to previous draw Performed By: #### 0 0121, 23515, 64447, 72693, 94479, 02897, 24654 ####[facility] Hemoglobin mass conc (Bld) 9.0 g/dL Low 13.0-17.0 [facility] Comment on above: Order Comment: No: D o not add to previous draw Performed By: #### 0 0121, 76668, 50581, 62853, 20793, 40150, 30521 ####[facility] HYPO Slight Normal [facility] Comment on above: Order Comment: No: D o not add to previous draw Performed By: #### 0 0121, 77375, 09364, 25981, 36136, 91016, 72006 ####[facility] IMM PLATELET FRAC 10.9 % High 0.8-6.3 [facility] Comment on above: Order Comment: No: D o not add to previous draw Performed By: #### 0 0121, 65208, 95538, 35810, 17841, 68268, 91198 ####[facility] IMMATURE GRANS 0.3 % Normal 0.0-1.0 [facility] Comment on above: Order Comment: No: D o not add to previous draw Performed By: #### 0 0121, 40784, 93852, 57148, 90779, 79219, 97344 ####[facility] Lymphocytes Auto #/vol (Bld) 1.0 10*3/uL Low 1.2-4.0 [facility] Comment on above: Order Comment: No: D o not add to previous draw Performed By: #### 0 0121, 46609, 60974, 59493, 33679, 40038, 40826 ####[facility]3000 [facility].[address] Lymphocytes/100 WBC Auto (Bld) 15.7 % Low 20.0-45.0 [facility] Comment on above: Order Comment: No: D o not add to previous draw Performed By: #### 0 0121, 17983, 29623, 51166, 24312, 54158, 32379 ####[facility] [place] [address], [place] MCH Auto Entitic mass (RBC) 19.4 pg Low 27.0-33.0 [facility] Comment on above: Order Comment: No: D o not add to previous draw Performed By: #### 0 0121, 26005, 95493, 92888, 78900, 90893, 21506 ####[facility] MCHC Auto mass conc (RBC) 26.7 g/dL Low 32.0-35.0 [facility] Comment on above: Order Comment: No: D o not add to previous draw Performed By: #### 0 0121, 14429, 00502, 42105, 50836, 45291, 17631 ####[facility] MCV Auto Entitic volume (RBC) 72.5 fL Low 82.0-98.0 [facility] Comment on above: Order Comment: No: D o not add to previous draw Performed By: #### 0 0121, 78006, 70105, 13763, 07444, 69577, 65450 ####[facility] Monocytes Auto #/vol (Bld) 0.9 10*3/uL Normal 0.1-1.0 [facility] Comment on above: Order Comment: No: D o not add to previous draw Performed By: #### 0 0121, 79463, 64719, 12132, 32381, 98822, 65303 ####[facility] MONOS 13.5 % High 5.0-12.0 [facility] Comment on above: Order Comment: No: D o not add to previous draw Performed By: #### 0 0121, 89659, 47488, 54575, 90718, 78081, 25723 ####[facility] Neutrophils/100 WBC Auto (Bld) 68.0 % Normal 40.0-72.0 [facility] Comment on above: Order Comment: No: D o not add to previous draw Performed By: #### 0 0121, 75648, 96191, 46556, 12383, 73614, 90339 ####[facility] Nucleated RBC/100 WBC Ratio (Bld) 1 % High 0-0 [facility] Comment on above: Order Comment: No: D o not add to previous draw Performed By: #### 0 0121, 52376, 82084, 88239, 83430, 54347, 39032 ####[facility]3000 [facility].[address] OVALOCYTES Slight Normal [facility] Comment on above: Order Comment: No: D o not add to previous draw Performed By: #### 0 0121, 20822, 99529, 19605, 40911, 11699, 49097 ####[facility]3000 [facility].[address] PLAT CNT 234 10*3/uL Normal 150-400 [facility] Comment on above: Order Comment: No: D o not add to previous draw Performed By: #### 0 0121, 96496, 57363, 70983, 20265, 50271, 92174 ####[facility]3000 [facility].[address] POIK Moderate Normal [facility] Comment on above: Order Comment: No: D o not add to previous draw Performed By: #### 0 0121, 10898, 13392, 70770, 30932, 51412, 11801 ####[facility] [place] [address], [facility] RBC Auto #/vol (Bld) 4.65 10*6/uL Normal 4.20-5.70 Th e [facility] Comment on above: Order Comment: No: D o not add to previous draw Performed By: #### 0 0121, 38186, 94622, 08453, 29196, 87179, 56450 ####[facility]3000 [facility].[address] TARGET CELLS Slight Normal [facility] Comment on above: Order Comment: No: D o not add to previous draw Performed By: #### 0 0121, 71733, 39518, 87705, 41370, 42328, 05536 ####[facility]3000 [facility].[address] WBC Auto #/vol (Bld) 6.50 10*3/uL Normal 4.00-10.60 Th e [facility] Comment on above: Order Comment: No: D o not add to previous draw Performed By: #### 0 0121, 63860, 20907, 98863, 26431, 76121, 47566 ####[facility]3000 [facility].[address] MAGNESIUM BLOODon 05-22-2018 Magnesium mass conc 1.7 mg/dL Low 1.9-2.7 [facility] Comment on above: Order Comment: No: D o not add to previous draw Performed By: #### 0 0121, 68262, 02559, 82166, 22159, 67047, 11555 ####[facility] [place] [address], [facility] OSMOLALITY URINEon 8 OSMOLALITY 487 mOsm/kg Normal 50-1400 [facility] Comment on above: Order Comment: No: D o not add to previous draw Performed By: #### 0 0121, 18966, 59381, 21171, 84167, 74937, 90923 ####[facility] [place] [address], [facility] PHOSPHORUS BLOODon 8 Phosphate mass conc 3.4 mg/dL Normal 2.5-5.0 [facility] Comment on above: Order Comment: No: D o not add to previous draw Performed By: #### 0 0121, 99763, 30785, 82617, 20469, 50720, 89799 ####[facility]3000 [facility].[address] PROTHROMBIN TIMEon 1218-201 8 INR Coag RelTime (PPP) 1.64 {INR} High 0.91-1.16 Th e [facility] Comment on above: Order Comment: No: [...] OF ACTION, CLINICALEFFECTIVENESS, AND OPTIMAL THERAPEUTIC RANGE. [id number];108:231S-246S. Performed By: #### 0 0121, 95990, 93117, 70995, 07498, 93065, 55734 ####[facility]3000 [facility].[address] Prothrombin time (PT) Coag time (PPP) 19.5 s High 12.3-14.8 [facility] Comment on above: Order Comment: No: D o not add to previous draw Result Comment: ALL RESULTS MUST BE INTERPRETED WITH RESPECT TO BLOOD DRAWING ARTIFACTOR DILUTION ERROR OF ANTICOAGULANT AT THE TIME OF SAMPLING. Performed By: #### 0 0121, 43572, 86950, 74139, 56641, 11700, 86492 ####[facility] [place] [address], [facility] SODIUM URINE RANDOMon 2017 Sodium molar conc 32 mmol/L Normal [facility] Comment on above: Order Comment: No: D o not add to previous draw Result Comment: Ther e are no established reference values for random urine specimens Performed By: #### 0 0121, 54429, 86518, 91622, 65369, 28782, 27132 ####[facility] [facility] [place] [address], [facility] US HEPATIC ECHOGRAMon 2017 [facility]PATIC ECHOGRAM [facility] [address] [place] [address] [id number] Patient Name: DAMI ALCALA : 1950Sex: MAge: Race: WhiteMRN: [id number]. Location: [id number] Status: IVisit #: [id number] Date: 05/22/2018 9:15:00 AMCompleted Date: 05/22/2018 01:16 PMRequesting Provider: ALIYA OLMOS Attending Provider: KAHLIL GAY Report Copy To: Signs & Symptoms: RUQ/Abdominal PainHistory: Patient history not availableComments: R/O Liver DiseaseExam: US HEPATIC ECHOGRAMAccession #: [id number] US HEPATIC ECHOGRAM 05/22/2018 1:16 PM EST [...] suggested. Electronically signed by:Clemente Juárez. Transcribed by: [email or web address], User Resident: Electronically Signed by: CLEMENTE JUÁREZ @ 05/22/2018 02:45 PM Normal [facility] Comment on above: Order Comment: No: D o not add to previous draw BNP (B-TYPE NATRIURETIC PEPT SALLY)on 05-21-2018 Natriuretic peptide B mass conc (Bld) 790 pg/mL High 0-100 [facility] Comment on above: Order Comment: No: D o not add to previous draw Result Comment: Give n the appropriate clinical setting a BNP result of >100 pg/mLindicates congestive heart failure. Performed By: #### 8 5123 ####[facility]3000 [facility].[address] CBC COMPLETE BLOOD COUNTon 1 07-22-2017 Erythrocyte distribution width Auto Ratio (RBC) 24.2 % High 11.5-15.0 The [facility] Comment on above: Order Comment: No: D o not add to previous draw Performed By: #### 5 0608 ####[facility].[address] Hematocrit Auto Volume Fraction (Bld) 34.4 % Low 39.0-50.0 The [facility] Comment on above: Order Comment: No: D o not add to previous draw Performed By: #### 5 0608 ####[facility] Hemoglobin mass conc (Bld) 9.2 g/dL Low 13.0-17.0 The [facility] Comment on above: Order Comment: No: D o not add to previous draw Performed By: #### 5 0608 ####[facility] IMM PLATELET FRAC 11.8 % High 0.8-6.3 The [facility] Comment on above: Order Comment: No: D o not add to previous draw Performed By: #### 5 0608 ####[facility] MCH Auto Entitic mass (RBC) 19.1 pg Low 27.0-33.0 The [facility] Comment on above: Order Comment: No: D o not add to previous draw Performed By: #### 5 0608 ####[facility] MCHC Auto mass conc (RBC) 26.7 g/dL Low 32.0-35.0 The [facility] Comment on above: Order Comment: No: D o not add to previous draw Performed By: #### 5 0608 ####[facility] MCV Auto Entitic volume (RBC) 71.5 fL Low 82.0-98.0 The [facility] Comment on above: Order Comment: No: D o not add to previous draw Performed By: #### 5 0608 ####[facility] [place] [address] Nucleated RBC/100 WBC Ratio (Bld) 0 % Normal 0-0 The [facility] Comment on above: Order Comment: No: D o not add to previous draw Performed By: #### 5 0608 ####[facility] [place] [address], [facility] PLAT CNT 257 10*3/uL Normal 150-400 The [facility] Comment on above: Order Comment: No: D o not add to previous draw Performed By: #### 5 0608 ####[facility] [place] [address], [facility] RBC Auto #/vol (Bld) 4.81 10*6/uL Normal 4.20-5.70 Th e [facility] Comment on above: Order Comment: No: D o not add to previous draw Performed By: #### 5 0608 ####[facility] [place] [address], [facility] WBC Auto #/vol (Bld) 7.33 10*3/uL Normal 4.00-10.60 Th e [facility] Comment on above: Order Comment: No: D o not add to previous draw Performed By: #### 5 0608 ####[facility] COMP METABOLIC PANELon 05-21 Albumin mass conc 2.8 g/dL Low 3.5-5.7 The [facility] Comment on above: Order Comment: No: D o not add to previous draw Performed By: #### 0 0121, 68902, 78093, 91648, 16606, 88522, 24375 ####[facility] [place] [address], [facility] ALKALINE PHOSPH 94 IU/L Normal 34-104 The [facility] Comment on above: Order Comment: No: D o not add to previous draw Performed By: #### 0 0121, 52668, 19984, 79532, 71807, 00972, 31810 ####[facility] ALT enzyme act/vol 9 U/L Normal 7-52 The [facility] Comment on above: Order Comment: No: D o not add to previous draw Performed By: #### 0 0121, 40238, 47691, 91864, 01807, 81104, 02120 ####[facility] [place] [address], [facility] AST enzyme act/vol 21 U/L Normal 13-39 The [facility] Comment on above: Order Comment: No: D o not add to previous draw Performed By: #### 0 0121, 71455, 41395, 99076, 57128, 91056, 16332 ####[facility] [place] [address], [facility] Bilirubin mass conc 1.0 mg/dL Normal 0.3-1.0 The [facility] Comment on above: Order Comment: No: D o not add to previous draw Performed By: #### 0 0121, 77963, 41014, 31690, 94924, 86006, 78499 ####[facility] [place] [address], [facility] Calcium mass conc 8.8 mg/dL Normal 8.6-10.3 The [facility] Comment on above: Order Comment: No: D o not add to previous draw Performed By: #### 0 0121, 54497, 82224, 11923, 77036, 13389, 00357 ####[facility] [place] [address], [facility] Chloride molar conc 93 mmol/L Low 98-107 The [facility] Comment on above: Order Comment: No: D o not add to previous draw Performed By: #### 0 0121, 60880, 27428, 83773, 49107, 55425, 99175 ####[facility] [place] [address], [facility] CO2 molar conc 31 mmol/L Normal 21-31 The [facility] Comment on above: Order Comment: No: D o not add to previous draw Performed By: #### 0 0121, 20159, 38397, 48706, 32717, 83857, 05767 ####[facility] [place] [address], [facility] Creatinine mass conc 0.90 mg/dL Normal 0.70-1.30 The [facility] Comment on above: Order Comment: No: D o not add to previous draw Performed By: #### 0 0121, 72190, 34764, 27246, 09261, 37288, 71560 ####[facility] [place] [address], [facility] GFR/1.73 sq M predicted among blacks MDRD vol rate/area (S/P/Bld) mL/min/{1.73_m2} Normal >60 The [facility] Comment on above: Order Comment: No: D o not add to previous draw Performed By: #### 0 0121, 55641, 66319, 88248, 22688, 84472, 99501 ####[facility] [place] [address], [facility] GFR/1.73 sq M predicted among non-blacks MDRD vol rate/area (S/P/Bld) mL/min/{1.73_m2} Normal >60 The [facility] Comment on above: Order Comment: No: D o not add to previous draw Performed By: #### 0 0121, 64734, 11704, 32360, 67862, 09859, 20451 ####[facility] [place] [address], [place] Glucose mass conc 82 mg/dL Normal 70-100 The [facility] Comment on above: Order Comment: No: D o not add to previous draw Performed By: #### 0 0121, 38171, 38361, 09236, 13902, 60047, 41028 ####[facility] [place] [address], [place] Potassium molar conc 4.3 mmol/L Normal 3.5-5.1 The [facility] Comment on above: Order Comment: No: D o not add to previous draw Performed By: #### 0 0121, 83226, 29432, 01538, 04359, 99467, 47804 ####[facility] [place] [address], [facility] Protein mass conc 6.3 g/dL Normal 6.0-8.3 The [facility] Comment on above: Order Comment: No: D o not add to previous draw Performed By: #### 0 0121, 70559, 53191, 84413, 11643, 56171, 15381 ####[facility] Sodium molar conc 130 mmol/L Low 136-145 [facility] Comment on above: Order Comment: No: D o not add to previous draw Performed By: #### 0 0121, 97619, 30058, 32273, 87563, 67836, 30550 ####[facility] Urea nitrogen mass conc 22 mg/dL Normal 7-25 T he [facility] Comment on above: Order Comment: No: D o not add to previous draw Performed By: #### 0 0121, 58715, 55890, 68595, 22173, 61715, 14146 ####[facility] [place] [address], [facility] CTA CHESTon 05-21-2018 CT[facility] CHEST [facility] [address] [place] [address] Patient Name: DAMI ALCALA : 1950Sex: MAge: Race: WhiteMRN: [id number]. Location: [id number] Status: IVisit #: [id number] Date: 05/21/2018 5:10:00 PMCompleted Date: 05/21/2018 08:45 PMRequesting Provider: EVERARDO LIAO Attending Provider: KAHLIL GAY Report Copy To: Signs & Symptoms: Shortness of BreathHistory: Patient history not availableComments: R/O Pulmonary EmbolismExam: CTA CHESTAccession #: [id number] CTA CHEST 05/21/2018 8:45 PM EST SIGNS [...] Ascites. Electronically signed by:Clemente Juárez. Transcribed by: [email or web address], User Resident: Electronically Signed by: CLEMENTE JUÁREZ @ 05/22/2018 07:51 AM Normal [facility] Comment on above: Order Comment: No: D o not add to previous draw D DIMER TESTon 05-21-2018 D-DIMER TEST 3.52 mcg/mL FEU High 0.01-0.49 The [facility] Comment on above: Order Comment: Yes: Add to Previous draw if able Result Comment: D-Di kory values of less than 0.50 ug/ml (FEU) are considered to be anegative predictor of thrombosis. However, the D-Dimer result should beused in conjunction with pretest probability and should not be usedalone to diagnose a thrombotic event. Performed By: #### 5 3629, 91408 ####[facility] FERRITINon 05-21-2018 Ferritin [Mass/volume] in Serum or Plasma 9 ng/mL Low 24-336 [facility] Comment on above: Performed By: #### 0 0121, 98403, 23573, 89445, 53252, 65189, 46603 ####[facility].[address] History and Physicalon 05-21 History and Physical MR[id number]ami Al[facility]al Admitted: 05/21/2018 Date of : 1950 Attending Physician: Everardo Liao MD Room #: [id number] Discharge Date: HISTORY AND PHYSICALHISTORY OF PRESENT ILLNESS: The patient is a 67-year-old malewith past medical history significant for hypertension, tobacco dependence,history of alcohol abuse, history of cardiac tamponade back in 2015,[facility] According to the [...] of malignancy. The patientdenies any history of [place], any history of stroke in the past. [...] was evaluated by Dr. Berryoutdu in the [facility] where the patient was found to [...] 05/21/2018/06:51 P/Everardo Liao MDDate Trans: 05/21/2018 07:33 P/[id number] Normal The [facility] MAGNESIUM BLOODon 05-21-2018 Magnesium mass conc 1.7 mg/dL Low 1.9-2.7 The [facility] Comment on above: Order Comment: No: D o not add to previous draw Performed By: #### 0 0121, 37629, 36000, 76261, 78364, 41379, 53974 ####[facility] [place] [address], [facility] OSMOLALITY BLOODon 8 Osmolality 285 mOsm/kg Normal 285-305 The [facility] Comment on above: Performed By: #### 0 0121, 24042, 00893, 81321, 78911, 91885, 44155 ####[facility] [place] [address], [facility] PHOSPHORUS BLOODon 8 Phosphate mass conc 3.5 mg/dL Normal 2.5-5.0 [facility] Comment on above: Performed By: #### 0 0121, 70521, 49697, 97703, 19185, 43356, 54251 ####[facility].[address] PROTHROMBIN TIMEon 8 INR Coag RelTime (PPP) 1.48 {INR} High 0.91-1.16 Th e [facility] Comment on above: Result Comment: ACCC P RECOMMENDED INR FOR WARFARIN THERAPY CONDITION INRPROPHYLAXIS OF VENOUS THROMBOSIS 2-3(HIGH-RISK SURGERY)TREATMENT OF VENOUS THROMBOSIS 2-3TREATMENT OF PULMONARY EMBOLISM 2-3PREVENTION OF SYSTEMIC EMBOLISM: 2-3 ACUTE MYOCARDIAL INFARCTION TISSUE HEART VALVES VALVULAR HEART DISEASE ATRIAL FIBRILLATION RECURRENT SYSTEMIC EMBOLISMMECHANICAL HEART VALVE 2.5-3.5 FROM : ORAL ANTICOAGULANTS. MECHANISM OF ACTION, CLINICALEFFECTIVENESS, AND OPTIMAL THERAPEUTIC RANGE. [id number];108:[id number]-246S. Performed By: #### 0 0121, 40897, 45165, 40637, 34688, 92480, 35546 ####[facility].[address] Prothrombin time (PT) Coag time (PPP) 18.0 s High 12.3-14.8 The [facility] Comment on above: Result Comment: ALL RESULTS MUST BE INTERPRETED WITH RESPECT TO BLOOD DRAWING ARTIFACTOR DILUTION ERROR OF ANTICOAGULANT AT THE TIME OF SAMPLING. Performed By: #### 0 0121, 60137, 24304, 81733, 34517, 39524, 10817 ####[facility] [place] [address], [facility] TIBC- INCLUDES IRONon 2017 FE SATURATION 4 % Low 20-50 The [facility] Comment on above: Performed By: #### 0 0121, 38955, 10833, 36525, 72016, 70687, 05865 ####[facility] Iron mass conc 17 ug/dL Low 50-212 The [facility] Comment on above: Performed By: #### 0 0121, 69511, 75647, 43568, 36284, 30460, 76114 ####[facility] TIBC 392 mcg/dL Normal 250-450 The [facility] Comment on above: Performed By: #### 0 0121, 24502, 59780, 42019, 11471, 96447, 41450 ####[facility]3000 [facility].[address] UIBC 375 mcg/dL High 155-355 [facility] Comment on above: Performed By: #### 0 0121, 65492, 47823, 02384, 60567, 42042, 96443 ####[facility].[address] URIC ACID BLOODon 05-21-2018 Urate mass conc 8.4 mg/dL High 4.4-7.6 The [facility] Comment on above: Performed By: #### 0 0121, 58449, 24138, 69820, 65956, 93355, 69665 ####[facility].[address] Vital Signs Date Time Vital Sign Value Performing Clinician Facility 04-03-2024 11:18-0400 Body mass index (BMI) [Ratio] 24.4 kg/m2 MD Polina Quezada Work Phone: [facility] 04-03-2024 11:18-0400 Inhaled oxygen flow rate 2 L/min MD Polina Quezada Work Phone: [facility] 04-03-2024 10:58-0400 Body height 182.88 cm MD Polina Quezada Work Phone: [facility] 04-03-2024 10:58-0400 Body weight 81.64 kg MD Polina Quezada Work Phone: [facility] 04-03-2024 10:58-0400 Diastolic blood pressure 60 mm[Hg] MD Polina Quezada Work Phone: [facility] 04-03-2024 10:58-0400 Heart rate 87 /min MD Polina Quezada Work Phone: [facility] 04-03-2024 10:58-0400 SaO2% (BldA) [Mass fraction] 91 % MD Polina Quezada Work Phone: [facility] 04-03-2024 10:58-0400 Systolic blood pressure 128 mm[Hg] MD Polina Quezada Work Phone: [facility] 01-02-2024 10:58-0400 Body height 182.88 cm [facility] 01-02-2024 10:58-0400 Body mass index (BMI) [Ratio] 21.7 kg/m2 [facility] 01-02-2024 10:58-0400 Body weight 72.57 kg [facility] 01-02-2024 10:58-0400 Diastolic blood pressure 56 mm[Hg] [facility] 01-02-2024 10:58-0400 Heart rate 97 /min [facility] 01-02-2024 10:58-0400 Systolic blood pressure 111 mm[Hg] [facility] 09-26-2023 14:07-0400 Body height 182.88 cm [facility] 09-26-2023 14:07-0400 Body mass index (BMI) [Ratio] 20.7 kg/m2 [facility] 09-26-2023 14:07-0400 Body weight 69.56 kg [facility] 09-26-2023 14:07-0400 Diastolic blood pressure 58 mm[Hg] [facility] 09-26-2023 14:07-0400 Heart rate 89 /min [facility] 09-26-2023 14:07-0400 SaO2% (BldA) [Mass fraction] 97 % [facility] 09-26-2023 14:07-0400 Systolic blood pressure 120 mm[Hg] [facility] 08-07-2023 16:53-0500 SaO2% (BldA) [Mass fraction] 100 % [facility] Comment on above: Performed By: #### CBC, CMP, 05556-5 ### # [facility] ([id number]) [address], [address] [place] [address] 08-07-2023 09:57-0500 SaO2% (BldA) [Mass fraction] 99 % [facility] Comment on above: Performed By: #### CBC, CMP, 92342-5 ### # [facility] ([id number]) [address] [place] [address] 01-23-2023 14:00-0400 Body height 182.88 cm Polina Quezada Other [facility] Other 01-23-2023 14:00-0400 Body mass index (BMI) [Ratio] 22.51 kg/m2 Polina Quezada Other [facility] Other 01-23-2023 14:00-0400 Body weight 75.3 kg Polina Quezada Other [facility] Other 01-23-2023 14:00-0400 Diastolic blood pressure 40 mm[Hg] Polina Quezada Other [facility] Other 01-23-2023 14:00-0400 SaO2% (BldA) [Mass fraction] 86 % Polina Quezada Other [facility] Other 01-23-2023 14:00-0400 Systolic blood pressure 103 mm[Hg] Polina Quezada Other [facility] LAFASO Other Encounters Encounter Date Encounter Type Care Provider Facility Start: 04-09-2024 End: 04-09-2024 Patient encounter procedure MD Polina Quezada Work Phone: [facility] [address] Work Phone: Start: 04-09-2024 End: 04-09-2024 ambulatory MD Polina Quezada Work Phone: [facility] Work Phone: Start: 04-03-2024 Non-patient / Non-visit MD Polina Quezada Work Phone: [facility] Physician [facility] Work Phone: Start: 04-03-2024 End: 04-03-2024 ambulatory MD Polina Quezada Work Phone: [facility] Work Phone: Start: 04-03-2024 End: 04-03-2024 Patient encounter procedure MD Polina Quezada Work Phone: [facility] Physician [facility] Work Phone: Start: 03-13-2024 End: 03-13-2024 Patient encounter procedure MD Polina Quezada Work Phone: [facility] [address] Work Phone: Start: 03-13-2024 End: 03-13-2024 ambulatory MD Polina Quezada Work Phone: [facility] Work Phone: Start: 01-02-2024 End: 01-02-[address] [facility] Work Phone: Start: 01-02-2024 End: 01-02-2024 Patient encounter procedure [facility]ician [facility] Work Phone: Start: 09-26-2023 End: 09-26-2023 ambulatory [facility] Work Phone: Start: 09-26-2023 End: 09-26-2023 Patient encounter procedure [facility] Work Phone: Start: 08-24-2023 End: 08-25-2023 ambulatory MAURICIO [facility] Start: 08-14-2023 End: 08-14-2023 ambulatory POLINA Esteban QUEZADA [facility] Start: 08-12-2023 End: 08-12-2023 Evaluation and management of inpatient SALBADOR AVENDANO [facility] Start: 08-08-2023 End: 08-08-2023 ambulatory MAT MATHEW [facility] Start: 08-08-2023 End: 08-12-2023 [facility] Start: 08-07-2023 End: 08-12-2023 Evaluation and management of inpatient NOEL DAMIAN [facility] Start: 08-07-2023 End: 08-12-2023 Evaluation and management of inpatient [facility] Start: 08-07-2023 End: 08-12-2023 Evaluation and management of inpatient GLO JURADOHIEs [facility] Start: 08-06-2023 End: 08-12-2023 Evaluation and management of inpatient LIANET SNELL [facility] Start: 08-06-2023 End: 08-11-2023 Evaluation and management of inpatient YENNI VELASCO [facility] Start: 08-05-2023 End: 08-07-2023 Evaluation and management of inpatient CARL TINAJERO [facility] Start: 08-04-2023 End: 08-07-2023 Emergency department patient visit MICHELE LOVE [facility] Start: 08-04-2023 End: 08-06-2023 Evaluation and management of inpatient MICHELE LOVE [facility] Start: 07-20-2023 End: 08-04-2023 ambulatory NO PCP NO PCP [facility] Start: 07-19-2023 End: 07-20-2023 ambulatory SP DAY [facility] Start: 06-09-2023 End: 06-09-2023 ambulatory NOT IN SYSTEM REF PROV [facility] Start: 06-08-2023 End: 06-09-2023 ambulatory JILLIAN GOMEZ [facility] Start: 03-27-2023 End: 04-17-2023 Evaluation and management of inpatient STEPHANIE HALL [facility] Start: 03-23-2023 End: 03-23-2023 ambulatory Polina Quezada Other [facility] Other Start: 03-23-2023 Telephone encounter Polina Quezada [facility] Start: 03-21-2023 End: 03-27-2023 Evaluation and management of inpatient MONTRELL HAIRSTON [facility] Start: 02-02-2023 End: 02-02-2023 ambulatory Polina Quezada Other [facility] Other Start: 02-02-2023 Telephone encounter Polina Quezada [facility] Start: 01-23-2023 End: 01-23-2023 ambulatory Polina Quezada Other [facility] Other Start: 01-23-2023 Office outpatient visit 25 minutes Polina Quezada [facility] Start: 05-10-[address] POLINA QUEZADA Facil ity:[facility] Start: 04-29-2021 End: 04-29-[address] GUILLAUME GRIFFITH Facility: Start: 05-21-2018 End: 05-24-2018 Evaluation and management of inpatient GUILLORY ALI Facility:[facility] Start: 05-18-2018 End: 05-19-2018 Patient encounter procedure DEFAULT PHYSICIAN Facility:[facility] Procedures Date Procedure Procedure Detail Performing Clinician [...] Phone: Start: 03-13-2024 Hemolytic complement CH50 level [facility] Start: 03-13-2024 [facility] Start: 01-11-2024 Patient referral [facility] Work Phone: 24 hour urine measurement [facility] Albumin [Mass/volume ] in Serum or Plasma [facility] Albumin/Globulin ratio [facility] Angiotensin converti ng enzyme [Enzymatic activity/volume] in Serum or Plasma [facility] Complement C3 [Mass/ volume] in Serum or Plasma [facility] Complement C4 [Mass/ volume] in Serum or Plasma [facility] Electrophoresis: [id number] [facility] Electrophoresis: [id number] [facility] Electrophoresis: beta-globulin [facility] Electrophoresis: gamma globulin [facility] Globulin [Mass/volume] in Serum [facility] Homogenous nuclear A b pattern [Titer] in Serum [facility] IgA [Mass/volume] in Serum or Plasma [facility] IgG [Mass/volume] in Serum or Plasma [facility] IgM [Mass/volume] in Serum or Plasma [facility] Immunofixation for Urine [facility] [place] light chains.f ree [Mass/volume] in Serum [facility] [place] light chains.f ree/Lambda light chains.free [Mass Ratio] in Serum [facility] Lambda light chains. free [Mass/volume] in Serum or Plasma [facility] dical [place] Measurement of monoc lonal protein concentration [facility] Nuclear Ab [Titer] in Serum [facility] Patient referral [facility] Work Phone: Protein [Mass/volume ] in Serum or Plasma [facility] Protein [Mass/volume] in Urine [facility] Serum immunofixation [facility] Sjogrens syndrome-A extractable nuclear Ab [Units/volume] in Serum [facility] Sjogrens syndrome-B extractable nuclear Ab [Units/volume] in Serum [facility] Immunizations Immunization Date Immunization Notes Care Provider Fa cility 06-01-2021 COVID-19 Vaccine Pfi zer - Documentation Purposes Only Polina Quezada Other [facility] 04-22-2019 influenza virus vaccine, split virus (incl. purified surface antigen) Polina Quezada Other [facility] Other 04-22-2019 influenza virus vaccine, unspecified formulation [facility] 04-22-2019 pneumococcal polysaccharide vaccine, 23 valent Polina Quezada Other [facility] Payers Date Payer Category Payer Self-pay 1957 Medicare [id number] 1950 Unknown [id number] 2.16.8 [id number] 1950 Unknown [id number] 2.16.8 [id number] 1950 Unknown [id number] 2.16.84 [id number] 1950 Unknown [id number] 2.16.84 [id number] 1950 Unknown [id number] 2.16.8 [id number] 1950 Unknown [id number] 2.16.8 [id number] 1950 Unknown [id number] 2.16.8 [id number] 1950 Unknown [id number] 2.16.8 40.1.113028.3.579.2.1286 1950 Unknown [id number] 2.16.8 40.1.473377.3.579.2.1286 1950 Unknown [id number] 2.16.8 40.1.260008.3.579.2.1286 1950 Unknown [id number] 2.16.8 40.1.104231.3.579.2.1286 1950 Unknown [id number] 2.16.8 40.1.280419.3.579.2.128 1950 Unknown [id number] 2.16.8 40.1.384285.3.579.2.1286 1950 Unknown [id number] 2.16.84 0.1.214421.3.579.2.128 1950 Unknown [id number] 2.16.84 0.1.332085.3.579.2.1285 1950 Unknown [id number] 2.16. 840.1.241974.3.579.2.175 1950 Unknown [id number] 2.16.8 40.1.954745.3.579.2.1286 1950 Unknown [id number] 2.16.8 40.1.820498.3.579.2.1285 1950 Unknown [id number] 2.16.8 40.1.099269.3.579.2.1286 1950 Unknown [id number] 2.16.8 40.1.130472.3.579.2.128 1950 Unknown [id number] 2.16.8 40.1.722982.3.579.2.1286 1952 Unknown [id number] 2.16.8 40.1.491933.3.579.2.128 1952 Unknown [id number] 2.16.8 40.1.877290.3.579.2.128 1950 Unknown [id number] 2.16.8 40.1.553096.3.579.2.128 1952 Unknown [id number] 2.16.8 40.1.100351.3.579.2.1286 1952 Unknown [id number] 2.16.8 40.1.674619.3.579.2.1286 1952 Unknown [id number] 2.16.8 40.1.356472.3.579.2.128 1952 Unknown [id number] 2.16.8 40.1.740977.3.579.2.1286 1950 Unknown [id number] 2.16.8 40.1.957869.3.579.2.128 1952 Unknown [id number] 2.16.8 40.1.620857.3.579.2.1286 1952 Unknown [id number] 2.16.8 40.1.995825.3.579.2.128 1952 Unknown [id number] 2.16.8 40.1.233819.3.579.2.1286 1952 Unknown [id number] 2.16.8 40.1.256931.3.579.2.1286 1950 Unknown [id number] 2.16.8 40.1.314727.3.579.2.1286 Medicare [id number] Medicare [id number] 2.16.8 40.1.147480.19 Unknown Unknown [id number] 2.16.8 40.1.859647.3.579.2.531 Unknown [id number] 2.16.8 40.1.270100.3.579.2.531 Social History Date Type Detail Facility Unknown if ever smoked [facility] Other Sex Assigned At Sex Assigned At Bir th [facility] Other Start: 09-26-2023 End: 09-26-2023 Tobacco smoking status NHIS Ex-smoker (finding) [facility] Start: 1950 Sex Assigned At Male F [facility] Evaluation note 01-23-2023 Note Date & [...] labs. Sent directly to hospital for tests. 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 Dami Alcala Admitted: 05/21/2018 Discharged: [...] pastmedical history as above, who presented from [place] per the Cardiologyrecommendati (more content not included)... Note Patient: DAMI ALCALA RN: [birth year] Age: 69 years Sex: Male : 1950 Associated Diagnoses: None Author: Miles Damon JR, DO Postoperative Information Post Operative Note: Post Anesthesia Care Unit. Anesthetic utilized: General, Monitored anesthesia care. Health Status Allergies: Allergic Reactions (Selected) No Known Allergies No Known Medication Allergies Current medications: (Selected) Prescriptions Prescribed Kensett 325 mg-5 mg oral tablet: 1 tab(s), [...] Medication Allergies Current medications: (Selected) Prescriptions Prescribed Kensett 325 mg-5 mg oral tablet: 1 tab(s), [...] and content) DATE CREATED AUTHOR 06/13/[address] [facility] DATE CREATED AUTHOR AUTHOR'S ORGANIZ ATION 01/13/2020 [facility] DATE CREATED AUTHOR AUTHOR'S ORGANIZ ATION 05/10/2021 [facility] DATE CREATED AUTHOR AUTHOR'S ORGANIZ ATION 03/27/2023 [facility] DATE CREATED AUTHOR AUTHOR'S ORGANIZ ATION 08/10/2023 [facility] DATE CREATED AUTHOR AUTHOR'S ORGANIZ ATION 08/19/2023 [facility] DATE CREATED AUTHOR AUTHOR'S ORGANIZ ATION 08/27/2023 [facility] DATE CREATED AUTHOR AUTHOR'S ORGANIZ ATION 04/21/2024 [facility] y[facility] REASON FOR VISIT (unrecogniz ed section and content) [facility] Care Teams (unrecognized sec tion [...] Team Status: Active Member Role Status Dates Polian Quezada MD Primary Care Provide r, Attending [...] BE BASED ON THE PRIMARY CLINICAL RECORDS. [facility]. provides no warranty or guarantee of the accuracy or completeness of information in this document.
== END 2024-08-02 07:41 | disposition home or self-care (01) ==
LOC: CT 07:40
PROVIDERS: Visit Provider Internal Medicine Hematology & Oncology
DX: D64.9 Anemia, unspecified (principal); D50.9 Iron deficiency anemia, unspecified; K90.9 Intestinal malabsorption, unspecified; R91.8 Other nonspecific abnormal finding of lung field; I70.91 Generalized atherosclerosis; K57.90 Diverticulosis of intestine, part unspecified, without perforation or abscess without bleeding
CPT/HCPCS: 71260; 74177; Q9967

== ENCOUNTER 2024-10-01 07:40 | Outpatient (RCR) | payer MEDICARE, SELFPAY ==
[2024-10-01 15:12] LABS: Basophils Absolute Auto 0.1 10^3/uL (0.0-0.1); Basophils Percent Auto 0.8 % (0.2-2.0); Eosinophils Absolute Auto 0.2 10^3/uL (0.0-0.7); Eosinophils Percent Auto 2.4 % (0.9-7.0); Hematocrit 34.5 % (42.0-54.0); Hemoglobin 10.5 g/dL (14.0-18.0); Immature Granulocytes Abs Auto 0.04 10^3/uL (0.00-0.03); Immature Granulocytes Pct Auto 0.4 % (0.0-0.5); Lymphocytes Absolute Auto 0.8 10^3/uL (1.2-3.8); Lymphocytes Percent Auto 8.5 % (20.5-60.0); Mean Corpuscular HGB Conc 30.4 g/dL (29.9-35.2); Mean Corpuscular Hemoglobin 26.6 pg (25.9-34.0); Mean Corpuscular Volume 87.6 fL (80.0-94.0); Mean Platelet Volume 10.9 fL (9.5-13.5); Monocytes Absolute Auto 0.7 10^3/uL (0.3-0.8); Monocytes Percent Auto 6.7 % (1.7-12.0); Neutrophils Absolute Auto 7.8 10^3/uL (1.4-6.5); Neutrophils Percent Auto 81.2 % (43.0-75.0); Platelet Count 296 10^3/uL (150-450); Red Blood Count 3.94 10^6/uL (4.70-6.10); Red Cell Distribution Width 18.7 % (11.0-15.0); White Blood Count 9.7 10^3/uL (4.0-11.0)
[2024-10-01 15:17] LABS: Anion Gap 10.8; BUN Creatinine Ratio 12.2; Calcium 9.3 mg/dL (8.5-10.1); Carbon Dioxide 30.4 mmol/L (21.0-32.0); Chloride 99 mmol/L (98-107); Erythrocyte Sedimentation Rate 89 mm/hr (<=20); Estimated GFR (African America >60 (>=60 mL/min/1.73m^2); Estimated GFR (Non-African Ame >60 (>=60 mL/min/1.73m^2); Glucose 114 mg/dL (74-106); Potassium 4.2 mmol/L (3.5-5.1); Sodium 136 mmol/L (136-145)
[2024-10-01 15:28] LABS: C Reactive Protein 2.06 mg/dL (<=0.50)
[2024-10-01 15:34] LABS: Percent Iron Saturation 14.9 %
[2024-10-02 03:12] LABS: Vitamin B12 763 pg/mL (232-1245)
== END 2024-10-02 23:59 | disposition home or self-care (01) ==
LOC: HEMC 07:40
PROVIDERS: Visit Provider Internal Medicine Hematology & Oncology
DX: D50.9 Iron deficiency anemia, unspecified (principal); K90.9 Intestinal malabsorption, unspecified; D64.9 Anemia, unspecified; Z86.73 Personal history of transient ischemic attack (TIA), and cerebral infarction without residual deficits; J44.9 Chronic obstructive pulmonary disease, unspecified; Z99.81 Dependence on supplemental oxygen; Z96.641 Presence of right artificial hip joint; Z87.891 Personal history of nicotine dependence
CPT/HCPCS: 36415; 80048; 80053; 82607; 82728; 83540; 83550; 83615; 85025; 85045; 85652; 86140; G0463

== ENCOUNTER 2024-10-11 07:35 | Outpatient (RCR) | payer MEDICARE, SELFPAY ==
[2024-10-11 08:57] VITALS: BP 148/64; PULSE 92; TEMP 36.9; O2SAT 95
[2024-10-11] MEDS: ACETAMINOPHEN 500 MG TABLET 1000 MG PO (09:18)
[2024-10-11] MEDS: diphenhydrAMINE HCL 25 MG, HYDROCORTISONE SODIUM SUCC/PF 100 MG in 0.9 % SODIUM CHLORID... 301.5 MG IV (09:19)
[2024-10-11] MEDS: IRON DEXTRAN COMPLEX 100 MG/2 ML VIAL 25 MG IV (09:40)
--- NOTE | 2024-10-11 11:11 | PC.NURSE ---
to bathroom per recliner to void, returned to cubicle. no comlaints offered
--- NOTE | 2024-10-11 12:05 | PC.NURSE ---
Eats 100% lunch. to bathroom per recliner, returned to cubicle when done. offers no complaints tolerating infusion with out any adverse effects.
--- NOTE | 2024-10-11 14:15 | PC.NURSE ---
up to bathroom with use of recliner chair. tolerates activity well. denies any needs at this time
== END 2024-11-02 23:59 | disposition home or self-care (01) ==
LOC: HEMC 07:35
PROVIDERS: Visit Provider Internal Medicine Hematology & Oncology
DX: D50.9 Iron deficiency anemia, unspecified (principal); K90.9 Intestinal malabsorption, unspecified; D64.9 Anemia, unspecified
CPT/HCPCS: 96365; 96366; 96367; 96376; J1200; J1720; J1750

== ENCOUNTER 2025-05-03 08:14 | Outpatient (OUT) | payer MEDICARE, SELFPAY ==
--- OUTSIDE RECORDS SUMMARY | 2024-07-16 08:15 | XMS_ITS ---
Author Organization The [facility] in [place] Address [address] [place] [address] Care Team Providers Care Lead Teller Name Role Phone Timmy SILVA, Daniella Primary Care Provider Unavailab Kristen Mata Unavailable [phone] REASON FOR VISIT MD Encounters Encounter Location Date Provider Diagnosis The [facility] On[facility] [address] [place] [id number] 07/16/2024 Kristen Burrows Plan Of Treatment No Information Progress Notes * Robert MERRITTDOB: [birth year] (74 yo M)Acc No.[id number]:07/16/2024 UNLOCKED PROGRESS NOTE Progress Notes Patient: Robert BOONE :?Kristen Burrows M.D.:1950???Age:74 Y ???Sex:MaleDate:07/16/2024Phone:[phone]:[address], [place], [id number]:Daniella Warner MD Subjective: * Chief Complaints: * 1 . MD. * Medical History: Objective: * Vitals: Assessment: Plan: * Treatment: * * Electronic signature of Kristen Burrows MD, [id number] on 05/03/2025 at 08:19 AM ESTSign off status: PendingVisit Status:?CANC (Cancelled) * Provider: Luis F Burrows M.D. Date: 0 07/16/2024 Generated for Printing/Faxing/eTransmitting on:?05/03/2025 08:19 AM EST
--- OUTSIDE RECORDS SUMMARY | 2024-07-23 09:00 | XMS_ITS ---
Author Organization The [facility] in [place] Address [address] [place] [address] Care Team Providers Care Account Analyst Name Role Phone Timmy SILVA, Daniella Primary Care Provider Unavailab Kristen Mata Unavailable [phone] REASON FOR VISIT MD Encounters Encounter Location Date Provider Diagnosis The [facility] On[facility] [address] [place] [id number] 07/23/2024 Kristen Burrows Plan Of Treatment No Information Progress Notes * Robert MERRITTDOB: [birth year] (74 yo M)Acc No.[id number]:07/23/2024 UNLOCKED PROGRESS NOTE Progress Notes Patient: Robert BOONE :?Kristen Burrows M.D.:1950???Age:74 Y ???Sex:MaleDate:07/23/2024Phone:[phone]: [address], [place], [id number]:Daniella Warner MD Subjective: * Chief Complaints: * 1 . MD. * Medical History: Objective: * Vitals: Assessment: Plan: * Treatment: * * Electronic signature of Kristen Burrows MD, [id number] on 05/03/2025 at 08:18 AM ESTSign off status: PendingVisit Status:?ANSPH (Voice) * Provider: Luis F Burrows M.D. Date: 0 07/23/2024 Generated for Printing/Faxing/eTransmitting on:?05/03/2025 08:18 AM EST
--- OUTSIDE RECORDS SUMMARY | 2024-09-10 10:15 | XMS_ITS ---
Author Organization The [facility] in [place] Address [address] [place] [address] Care Team Providers Care Instrument Technologist Name Role Phone Timmy SILVA, Daniella Primary Care Provider Unavailab Kristen Mata Unavailable [phone] REASON FOR VISIT MD Encounters Encounter Location Date Provider Diagnosis [facility] Oncology [address] [place] [address] 09/10/2024 Kristen Burrows Plan Of Treatment No Information Progress Notes * Robert MERRITTDOB: [birth year] (74 yo M)Acc No.[id number]:09/10/2024 UNLOCKED PROGRESS NOTE Progress Notes Patient: Robert BOONE :?Kristen Burrows M.D.:1950???Age:74 Y ???Sex:MaleDate:09/10/2024Phone:[phone]: [address], [place], [id number]:Daniella Warner MD Subjective: * Chief Complaints: * 1 . MD. * Medical History: Objective: * Vitals: Assessment: Plan: * Treatment: * * Electronic signature of Kristen Burrows MD, [id number] on 05/03/2025 at 08:19 AM ESTSign off status: PendingVisit Status:?CANC (Cancelled) * Provider: Luis F Burrows M.D. Date: 0 09/10/2024 Generated for Printing/Faxing/eTransmitting on:?05/03/2025 08:19 AM EST
--- OUTSIDE RECORDS SUMMARY | 2024-09-24 11:00 | XMS_ITS ---
Author Organization The [facility] in [place] Address [address] [place] [address] Care Team Providers Care Tactical Deception Plans Officer Name Role Phone Timmy SILVA, Daniella Primary Care Provider Unavailab Clifton Heard Unavailable [phone] REASON FOR VISIT 2m F/U - COPD Encounters Encounter Location Date Provider Diagnosis Pulmonary Medicine [address] [address] 09/24/2024 [facility] Plan Of Treatment No Information Progress Notes * Robert MERRITTDOB: [birth year] (74 yo M)Acc No.[id number]:09/24/2024 UNLOCKED PROGRESS NOTE Follow Up Patient: Dane SANTANA Robert Villarreal :?Clifton Yo DODOB:1950???Age:74 Y ???Sex:MaleDate:09/24/2024Phone:[phone]:[address], [id number]:Daniella Warner MD Subjective: * Chief Complaints: * 1 . 2m F/U - COPD. * Medical History: Objective: * Vitals: Assessment: Plan: * Treatment: * * Electronic signature of Clifton Spaulding DO on 05/03/2025 at 08:19 AM ESTSign off status: PendingVisit Status:?R/S (Rescheduled) * Provider: Epifanio Spaulding DO Date: 0 09/24/2024 Generated for Printing/Faxing/eTransmitting on:?05/03/2025 08:19 AM EST
--- OUTSIDE RECORDS SUMMARY | 2024-10-01 09:30 | XMS_ITS ---
Author Organization The [facility] in [place] Address [address] [place] [address] Care Team Providers Care Socket Puller Name Role Phone Timmy SILVA, Daniella Primary Care Provider Unavailab Kristen Mata Unavailable [phone] REASON FOR VISIT MD Encounters Encounter Location Date Provider Diagnosis [facility] Oncology [address] [place] [address] 10/01/2024 Kristen Burrows Plan Of Treatment No Information Progress Notes * Robert MERRITTDOB: [birth year] (74 yo M)Acc No.[id number]:10/01/2024 UNLOCKED PROGRESS NOTE Progress Notes Patient: Robert BOONE :?Kristen Burrows M.D.:1950???Age:74 Y ???Sex:MaleDate:10/01/2024Phone:[phone]:[address], [place], [id number]:Daniella Warner MD Subjective: * Chief Complaints: * 1 . MD. * Medical History: Objective: * Vitals: Assessment: Plan: * Treatment: * * Electronic signature of Kristen Burrows MD, [id number] on 05/03/2025 at 08:19 AM ESTSign off status: PendingVisit Status:?CONFPHONE (Voice) * Provider: Luis F Burrows M.D. Date: 0 10/01/2024 Generated for Printing/Faxing/eTransmitting on:?05/03/2025 08:19 AM EST
--- OUTSIDE RECORDS SUMMARY | 2024-10-11 04:00 | XMS_ITS ---
Author Organization The [facility] in [place] Address [address] [facility] [place] [address] Care Team Providers Care Client Success Director Name Role Phone Timmy SILVA, Daniella Primary Care Provider Unavailab Kristen Mata Unavailable [phone] REASON FOR VISIT Iron Dextran (Dexferrum, Imferon, INFeD) Encounters Encounter Location Date Provider Diagnosis [facility] Oncology [address] [place] [phone] 10/11/2024 Kristen Burrows Plan Of Treatment No Information Progress Notes * Robert MERRITTDOB: [birth year] (74 yo M)Acc No.[id number]:10/11/2024 UNLOCKED PROGRESS NOTE Progress Note Patient: Dane PRETTYRobert DESIR :?Kristen Burrows M.D.:1950???Age:74 Y ???Sex:MaleDate:10/11/2024Phone:[phone]: [id number]:Daniella Warner MD Subjective: * Chief Complaints: * 1 . Iron Dextran (Dexferrum, Imferon, INFeD). * Medical History: Objective: * Vitals: Assessment: Plan: * Treatment: * * Electronic signature of Kristen Burrows MD, [id number] on 05/03/2025 at 08:19 AM ESTSign off status: PendingVisit Status:?PEN (Pending) * Provider: Luis F Burrows M.D. Date: 0 10/11/2024 Generated for Printing/Faxing/eTransmitting on:?05/03/2025 08:19 AM EST
--- OUTSIDE RECORDS SUMMARY | 2024-10-14 10:00 | XMS_ITS ---
Author Organization The [facility] in [place] Address [address] [place] [address] Care Team Providers Care Mining Teacher Name Role Phone Timmy SILVA, Daniella Primary Care Provider Unavailab Clifton Heard Unavailable [phone] REASON FOR VISIT 2m F/U - COPD Encounters Encounter Location Date Provider Diagnosis Pulmonary Medicine [address] [address] 10/14/2024 [facility] Plan Of Treatment No Information Progress Notes * Robert MERRITTDOB: [birth year] (74 yo M)Acc No.[id number]:10/14/2024 UNLOCKED PROGRESS NOTE Follow Up Patient: Dane SANTANA Robert Villarreal :?Clifton Yo DODOB:1950???Age:74 Y ???Sex:MaleDate:10/14/2024Phone:[phone]:[address], [place]-[id number]:Daniella Warner MD Subjective: * Chief Complaints: * 1 . 2m F/U - COPD. * Medical History: Objective: * Vitals: Assessment: Plan: * Treatment: * * Electronic signature of Clifton Spaulding DO on 05/03/2025 at 08:19 AM ESTSign off status: PendingVisit Status:?R/S (Rescheduled) * Provider: Epifanio Spaulding DO Date: 0 10/14/2024 Generated for Printing/Faxing/eTransmitting on:?05/03/2025 08:19 AM EST
--- OUTSIDE RECORDS SUMMARY | 2025-01-20 10:00 | XMS_ITS ---
Author Organization The [facility] in [place] Address [address] [place] [address] Care Team Providers Care Funeral Pre Arrangement Specialist Name Role Phone Timmy SILVA, Daniella Primary Care Provider Unavailab akhil Spaulding Clifton Unavailable [phone] REASON FOR VISIT 3m F/U - COPD, nodules Encounters Encounter Location Date Provider Diagnosis Pulmonary Medicine [address] [address] 01/20/2025 [facility] Plan Of Treatment No Information Progress Notes * Robert MERRITTDOB: [birth year] (74 yo M)Acc No.[id number]:01/20/2025 UNLOCKED PROGRESS NOTE Follow Up Patient: Dane SANTANA Robert Cherelle :?Clifton YoLAMBERT lockettOB:1950???Age:74 Y ???Sex:MaleDate:01/20/2025Phone:[phone]:[address], [place], [place]Lxf:Daniella Warner MD Subjective: * Chief Complaints: * 1 . 3m F/U - COPD, nodules. * Medical History: Objective: * Vitals: Assessment: Plan: * Treatment: * * Electronic signature of Clifton Spaulding DO on 05/03/2025 at 08:18 AM ESTSign off status: PendingVisit Status:?OFF CANC (OFFICE CANCEL) * Provider: Epifanio Spaulding DO Date: 0 01/20/2025 Generated for Printing/Faxing/eTransmitting on:?05/03/2025 08:18 AM EST
--- OUTSIDE RECORDS SUMMARY | 2025-02-04 10:00 | XMS_ITS ---
Author Organization The [facility] in [place] Address [address] [place] [address] Care Team Providers Care Track And Field Coach Name Role Phone Timmy SILVA, Daniella Primary Care Provider Unavailab Kristen Mata Unavailable [phone] REASON FOR VISIT MD Encounters Encounter Location Date Provider Diagnosis [facility] Oncology [address] [place] [phone] 02/04/2025 Kristen Burrows Plan Of Treatment No Information Progress Notes * Robert MRERITTDOB: [birth year] (74 yo M)Acc No.[id number]:02/04/2025 UNLOCKED PROGRESS NOTE Progress Notes Patient: Robert BOONE :?Kristen Burrows M.D.:1950???Age:74 Y ???Sex:MaleDate:02/04/2025Phone:[phone]:[address], [place], [place]Wfn:Daniella Warner MD Subjective: * Chief Complaints: * 1 . MD. * Medical History: Objective: * Vitals: Assessment: Plan: * Treatment: * * Electronic signature of Kristen Burrows MD, [id number] on 05/03/2025 at 08:19 AM ESTSign off status: PendingVisit Status:?CANC (Cancelled) * Provider: Luis F Burrows M.D. Date: 0 02/04/2025 Generated for Printing/Faxing/eTransmitting on:?05/03/2025 08:19 AM EST
--- OUTSIDE RECORDS SUMMARY | 2025-05-03 08:18 | XMS_ITS | CCD ---
Author Organization [facility] Care Team Providers Care Cafeteria Helper Name Role Phone PHYSICIAN, DEFAULT Unavailable Unavailable PHYSICIAN, DEFAULT Unavailable Unavailable ALI, GUILLORY Unavailable Unavailable LAINA, GUILLORY Unavailable Unavailable POLINA QUEZADA Unavailable Unavailable POLINA QUEZADA Unavailable Unavailable AR Unavailable Unavailable ELTAHAWY, EHAB A Unavailable Unavailable AR Unavailable Unavailable KIERSTEN GAYGUILLORY Unavailable Unavailable NACHO, DR GUILLAUME Zavaleta Consulting Unavailable PILAR, DR POLINA Orellana Primary Care Unavailable NACHO, DR GUILLAUME Zavaleta Attending Unavailable NACHO, DR GUILLAUME Zavaleta Admitting Unavailable Kyle Max Consulting Unavailable PILAR, DR POLINA Orellana Primary Care Unavailable PILAR, DR POLINA Orellana Attending Unavailable PILAR, DR POLINA Orellana Admitting Unavailable Polina Quezada Unavailable MONTRELL HAIRSTON Admitting Unavailable MONTRELL HAIRSTON Attending Unavailable POLINA QUEZADA Primary Care Unavailable BRAULIO SANTANA Consulting Unavailable MICHELE LOVE Attending Unavailable SP DAY Primary Care Unavailable STEFANI EUBANKS Consulting Unavailable PRIYANKAMAT Coleman M Admitting Unavailable INPATIENT, TELENEUROLOGY Consulting Unavail able PETER GAY Consulting Unavailable MICHELE LOVE Attending Unavailable MICHELE LOVE Referring Unavailable SP DAY Primary Care Unavailable MICHELE LOVE Attending Unavailable MICHELE LOVE Referring Unavailable SP DAY Primary Care Unavailable CARL TINAJERO Attending Unavailable CARL TINAJERO Referring Unavailable SP DAY Primary Care Unavailable CARL TINAJERO Attending Unavailable CARL TINAJERO Referring Unavailable SP DAY Primary Care Unavailable JILLIAN GOMEZ Referring Unavailable REF PROV, NOT IN SYSTEM Referring Unavaila ble SP DAY Referring Unavailable NO PCP, NO PCP Primary Care Unavailable NO PCP, NO PCP Primary Care Unavailable JILLIAN GOMEZ Referring Unavailable RAFAEL, RATIKA Admitting Unavailable RAFAEL, RATIKA Attending Unavailable ROSELYN RAZO Referring Unavail able PILAR, POLINA Primary Care Unavailable DUNG PETERSONRAHMANYCASH Consulting Unavail able MIGUEL A MEAD Consulting Unavailable ZAYNAB GUNN Consulting Unavailable MONTRELL OWENS Consulting Unavailabl e SAMIRA, BUBBA Consulting Unavailable PETER GAY Consulting Unavailable MARGARITA MARIE Consulting Unavailable BRANDON VAZQUEZ Consulting Unavailable SYED TOWNSEND Consulting Unavailable YENNI VELASCO Admitting Unavailable YENNI VELASCO Attending Unavailable PRIYANKAKIERSTENHAMID M Referring Unavailable DAY, SP B Primary Care Unavailable KOLTON SOMERS Consulting Unavailabl e [facility]ARDIOLOG[facility], [facility] Consulting Unavailable [facility] Consulting Unavailable RYDER RODRIGUEZ Consulting Unavailable PRIYANKAKIERSTENHAMID M Referring Unavailable DAY, SP B Primary Care Unavailable CICI BELL Referring Unavailable DAY, SP B Primary Care Unavailable LIANET SNELL Referring Unavailable TANK, MAURICIO Attending Unavailable TANK, MAURICIO Referring Unavailable VESELKA LIANET L Referring Unavailable DAY, SP B Primary Care [...] Primary Care Unavailable TANK, MAURICIO Attending Unavailable QUEZADA, POLINA E Referring Unavailable QUEZADA, POLINA E Primary Care Unavailable MD Polina Quezada Primary Care Provider [phone] MD Clemente Fragoso Attending Provider [phone] MD Polina Quezada Primary Care Provider MD Clemente Fragoso Attending Provider [phone] Polina Quezada Primary Care Unavailable Clemente Fragoso Admitting Unavailable Clemente Fragoso Attending Unavailable Polina Quezada Primary Care Unavailable Clemente Fragoso Attending Unavailable Clemente Fragoso Admitting Unavailable POLINA QUEZADA Referring Unavailable POLINA QUEZADA Primary Care Unavailable Medications Current Medications MedicationDrug Class(es)DatesSig (Normalized)Sig (Original)albuterol 0.83 mg/ml inhalation solution (14 sources)beta2-Adrenergic AgonistStart: 01-03-2024 End: 09-77-6448uced 2.5 mg by inhalation three times dailyAlbuterol Sulfate Active 2.5 MG INHALATION Three times daily 180 March 11, 2024 7:54amStart: 09-25-2023 End: 68-81-8041Qsstanlul Sulfate Discontinued 2.5 MG INHALATION Once September 24, 2023 11:00pm January 03, 2024 8:26am FreeTextSig: USE 1 VIAL PER NEBULIZER 3 TIMES DAILY; Note: Source Status: Refill; Refills: 0; Qty: 300 Milliliter; Provider: Pilar Brewer EAlbuterol Sulfate (2.5 MG/3ML) 0.083% USE 1 VIAL PER NEBULIZER 3 TIMES DAILY for 90 days Activeaspirin 81 mg delayed release oral tablet (15 sources)Platelet Aggregation Inhibitor, Nonsteroidal Anti-inflammatory Drug Start: 02-15-3072pard 1 tablet by mouth once dailyAspirin Active 0 .ROUTE .COMPLEX January 15, 2024 10:40am TAKE 1 TABLET BY MOUTH EVERY DAYStart: 09-25-2023 End: 64-28-7887mxnm 81 mg by mouth once dailyAspirin Discontinued 81 MG PO Daily October 18, 2023 11:41am January 15, 2024 10:40amBaby Aspirin Active atorvastatin 20 mg oral tablet (15 sources)HMG-CoA Reductase InhibitorStart: 01-15-2024 End: 40-28-6998bxoh 1 tablet by mouth once dailyAtorvastatin Active 0 .ROUTE .COMPLEX January 22, 2024 7:41am TAKE 1 TABLET BY MOUTH DAILYStart: 09-26-2023 End: 61-85-0933rlqa 20 mg by mouth once dailyAtorvastatin Discontinued 20 MG PO Daily October 18, 2023 11:41am January 15, 2024 10:40amcalcium citrate 950 mg oral tablet (12 sources)Start: 09-02-9089qcev 1 tablet by mouth twice dailyCalcium Citrate Active 0 .ROUTE .COMPLEX 180 January 15, 2024 10:40am TAKE 1 TABLET BY MOUTH TWICEA DAYStart: 09-26-2023 End: 28-61-7266cclc 200 mg by mouth twice dailyCalcium Citrate Discontinued 200 MG PO Twice daily 180 October 18, 2023 11:41am January 15, 2024 10:40am Cholecalciferol (Vitamin D3) (Osteo-Vit3) 1,250 mcg/3 mL drops (1 source)Start: 52-23-2631Mufraamdgnbhyca (Vitamin D3) (Osteo-Vit3) 1,250 mcg/3 mL drops Active MCG PO September 26, 2023 12:06ziSdlcfixajrk-Gxpspaqli-Dbrmiwcv (15 sources)Anticholinergic, Corticosteroid, beta2-Adrenergic AgonistStart: 08-31-6841Icxuzehymmu-Umeclidin-Vilanter (Trelegy Ellipta) 100-62.5-25 mcg blister with device Active 1 INH INHALATION Daily 60 February 02, 2024 9:07pm Start: 73-78-2268Fnwqmpmhnxw-Umeclidin-Vilanter (Trelegy Ellipta) 100-62.5-25 mcg blister with device Active 1 INH INHALATION Daily 60 February 02, 2024 10:07pmStart: 10-18-2023 End: 57-83-0170Nokgwdpebxt-Umeclidin-Vilanter (Trelegy Ellipta) 100-62.5-25 mcg blister with device Discontinued 1INH INHALATION Daily 60 October 18, 2023 11:42am February 02, 2024 9:07pmStart: 10-18-2023 End: 17-93-3471Mivafndmgzj-Umeclidin-Vilanter (Trelegy Ellipta) 100-62.5-25 mcg blister with device Discontinued 1INH INHALATION Daily 60 October 18, 2023 12:42pm February 02, 2024 10:07pmStart: 43-10-9882Zaweknafutg-Umeclidin-Vilanter (Trelegy Ellipta) 100-62.5-25 mcg blister with device Active 1 INH INHALATION Daily 60 October 18, 2023 12:42pmStart: 09-25-2023 End: 65-46-5661ddyq 1 puff(s) by mouth once uwnctHmfiglbjnap-Npzlzfbey-Wtrekufb (Trelegy Ellipta) 100-62.5-25 mcg blister with device Discontinued INHALATION September 24, 2023 11:00pm October 18, 2023 11:44am FreeTextSig: INHALE 1 PUFF BY MOUTH DAILY;Note: Source Status: Taking; Refills: 3; Qty: 60 Each; Provider: Pilar Brewer ( )Start: 09-25-2023 End: 74-59-9966pqwz 1 puff(s) by mouth once kkrlzBcfaolbozjx-Livanzgnl-Osabbesq (Trelegy Ellipta) 100-62.5-25 mcg blister with device Discontinued INHALATION September 25, 2023 12:00am October 18, 2023 12:44pm FreeTextSig: INHALE 1 PUFF BY MOUTH DAILY;Note: Source Status: Taking; Refills: 3; Qty: 60 Each; Provider: Pilar Brewer ( )Start: 49-84-0670dvfm 1 puff(s) by mouth once evlygMdjaceuvcji-Tmougkral-Qavsnugc (Trelegy Ellipta) 100-62.5-25 mcg blister with device Active INHALATION September 25, 2023 12:00am FreeTextSig: INHALE 1 PUFF BY MOUTH DAILY; Note: Source Status: Taking;Refills: 3; Qty: 60 Each; Provider: Pilar Brewer ( )take 1 puff(s) by mouth once daily Trelegy Ellipta 100-62.5-25 MCG/ACT INHALE 1 PUFF BY MOUTH DAILY for 30 Active folic acid 1 mg oral tablet (5 sources)Start: 67-53-8500zgbx 1 mg by mouth once dailyFolic Acid Active 1 MG PO Daily September 25, 2023 11:36ju260 actuat ipratropium bromide 0.017 mg/actuat metered dose inhaler (3 sources)AnticholinergicStart: 26-15-4162lddj 1 puff(s) by inhalation every eight hoursIpratropium Momence Active 2 PUFF INHALATION Every 8 hours 12.9 February 07, 2024 11:00pmmecobalamin 1 mg sublingual tablet (3 sources)Start: 50-69-9488Kicqgltinrn (Vitamin B12) Active 1000 MCG SUBLINGUAL Daily January 04, 2024 11:00pm place tabletunder tongue and allow to dissolve for at least30 secs before swallowingmelatonin 3 mg oral tablet (5 sources)Start: 35-40-0959vhsb 3 mg by mouth once daily at bedtimeMelatonin Active 3 MG PO Daily at bedtime September 25, 2023 11:00pmOmeprazole Magnesium (Prilosec Otc) 20 mg tablet,delayed release (DR/EC) (6 sources)Start: 74-95-0818dsbe 1 tablet by mouth once dailyOmeprazole Magnesium (Prilosec Otc) 20 mg tablet,delayed release (DR/EC) Active 20 MG PO Daily February 13, 2024 7:46amStart: 62-88-0170ypfa 1 tablet by mouth once dailyOmeprazole Magnesium (Prilosec Otc) 20 mg tablet,delayed release (DR/EC) Active 20 MG PO Daily February 13, 2024 8:46amStart: 01-05-2024 End: 83-38-5547wxmh 1 tablet by mouth once dailyOmeprazole Magnesium (Prilosec Otc) 20 mg tablet,delayed release (DR/EC) Discontinued 20 MG PO Daily January 04, 2024 11:00pm February 13, 2024 7:47amStart: 01-05-2024 End: 32-40-8154kgja 1 tablet by mouth once dailyOmeprazole Magnesium (Prilosec Otc) 20 mg tablet,delayed release (DR/EC) Discontinued 20 MG PO Daily January 05, 2024 12:00am February 13, 2024 8:47amsertraline 25 mg oral tablet (15 sources)Serotonin Reuptake InhibitorStart: 01-05-2024 End: 68-37-7665erbc 1 tablet by mouth once dailySertraline (Zoloft) 25 mg tablet Active 25 MG PO Daily February 13, 2024 7:46amStart: 09-26-2023 End: 90-62-6892hhag 25 mg by mouth once dailySertraline Discontinued 25 MG PO Daily October 18, 2023 11:44am January 02, 2024 10:08amtamsulosin hydrochloride 0.4 mg oral capsule (15 sources)alpha-Adrenergic BlockerStart: 81-57-9522adtb 1 capsule by mouth once dailyTamsulosin Active 0 .ROUTE .COMPLEX January 15, 2024 10:40am TAKE 1 CAPSULE BY MOUTH EVERY DAYStart: 09-25-2023 End: 17-81-7752ejil 1 capsule by mouth once dailyTamsulosin Discontinued 0.4 MG PO Daily October 18, 2023 11:44am January 15, 2024 10:40am FreeTextSig: TAKE 1 CAPSULE BY MOUTH EVERY DAY; Note: Source Status: Taking; Refills: 5; Qty: 90 Capsule; Provider: Pilar Brewer ( )take 1 capsule by mouth once dailyTamsulosin HCl 0.4 MG TAKE 1 CAPSULE BY MOUTH EVERY DAY for 90 Active Completed/Discontinued Medications MedicationDrug Class(es)DatesSig (Normalized)Sig (Original)albuterol 0.833 mg/ml / ipratropium bromide 0.167 mg/ml inhalation solution (5 sources)Anticholinergic, beta2-Adrenergic AgonistStart: 09-26-2023 End: 78-45-6169bpkb 1 mL by inhalation every six hoursIpratropium-Albuterol Discontinued 3 ML INHALATION Every 6 hours September 25, 2023 11:00pm January 02, 2024 10:07amcetirizine hydrochloride 10 mg oral capsule (5 sources)Histamine-1 Receptor AntagonistStart: 09-26-2023 End: 67-65-1919muyr 1 capsule by mouth once dailyCetirizine (Zyrtec) 10 mg capsule Discontinued 10 MG PO Daily September 25, 2023 11:00pm October 18, 2023 11:42amCholecalciferol (Vitamin D3) (4 sources)Vitamin DStart: 09-26-2023 End: 05-67-7654Kquqdgsfupqycrr (Vitamin D3) (Osteo-Vit3) 1,250 mcg/3 mL drops Discontinued MCG PO September 241:00pm January 02, 2024 10:04amStart: 09-26-2023 End: 19-86-8275Hazdbmjfbdsmxkm (Vitamin D3) (Osteo-Vit3) 1,250 mcg/3 mL drops Discontinued MCG PO September 252:00am January 02, 2024 11:04amdocusate sodium 100 mg oral capsule (5 sources)Start: 09-26-2023 End: 27-83-2738kzeq 100 mg by mouth once dailyDocusate Sodium Discontinued 100 MG PO Daily September 25, 2023 11:00pm October 18, 2023 11:42amdoxazosin 4 mg oral tablet (15 sources)alpha-Adrenergic BlockerStart: 01-05-2024 End: 35-44-5723bmpc 1 tablet by mouth once dailyDoxazosin (Cardura) 4 mg tablet Discontinued 4 MG PO Daily February 13, 2024 9:12am 2023 10:04amStart: 09-26-2023 End: 98-68-3917lyzf 1 tablet by mouth once dailyDoxazosin (Cardura) 4 mg tablet Discontinued 4 MG PO Daily October 18, 2023 11:42am January 02, 2024 10:08am0.4 ml enoxaparin sodium 100 mg/ml prefilled syringe (5 sources)Low Molecular Weight HeparinStart: 09-26-2023 End: 10-44-7682tpexnu 40 mg by subcutaneous injection once dailyEnoxaparin Discontinued 40 MG SUBCUT Daily September 25, 2023 11:00pm October 18, 2023 11:42am ferrous sulfate 325 mg oral tablet (5 sources)Start: 09-26-2023 End: 99-45-3961qoii 325 mg by mouth once dailyFerrous Sulfate Discontinued 325 MG PO Daily September 25, 2023 11:00pm January 02, 2024 10:05amlidocaine 0.04 mg/mg medicated patch (5 sources)Antiarrhythmic, Amide Local AnestheticStart: 09-26-2023 End: 78-22-1325ahjsp 1 dose topically once dailyLidocaine Discontinued 1 PATCH TOPICAL Daily September 25, 2023 11:00pm January 02, 2024 10:07ammagnesium oxide 400 mg oral tablet (5 sources)Start: 09-26-2023 End: 79-56-1706bjpa 400 mg by mouth once dailyMagnesium Oxide Discontinued 400 MG PO Daily September 25, 2023 11:00pm October 18, 2023 11:43ammidodrine hydrochloride 10 mg oral tablet (13 sources)alpha-Adrenergic AgonistStart: 09-26-2023 End: 05-20-6630edfc 1 dose by mouth once daily at bedtimeMidodrine Discontinued 10 MG PO Three times daily November 09, 2023 11:14am December 25, 2023 11:44amdo not give last dose of day after 6PM or within 4 hrs of djiifux40 hr nicotine 0.292 mg/hr transdermal system (5 sources)Cholinergic Nicotinic AgonistStart: 09-26-2023 End: 69-80-8889visxq 1 dose transdermal route once dailyNicotine Discontinued 1 PATCH TRANSDERML Daily September 25, 2023 11:00pm January 02, 2024 10:07am omeprazole 20 mg delayed release oral capsule (9 sources)Proton Pump InhibitorStart: 09-26-2023 End: 75-53-1924ubnq 20 mg by mouth once dailyOmeprazole Discontinued 20 MG PO Daily October 18, 2023 11:43am January 02, 2024 10:07ampolyethylene glycol 3350 52451 mg powder for oral solution (5 sources)Osmotic LaxativeStart: 09-26-2023 End: 56-48-5673Dhpboeevzvhk Glycol 3350 (Miralax) 17 gram/dose powder Discontinued 17 GM PO Daily September 241:00pm October 18, 2023 11:44am Sennosides (Senokot) 8.6 mg tablet (5 sources)Start: 09-26-2023 End: 10-89-5884wemv 1 tablet by mouth once dailySennosides (Senokot) 8.6 mg tablet Discontinued 8.6 MG PO Daily September 25, 2023 11:00pm October 18, 2023 11:44amStart: 09-26-2023 End: 68-90-1451idjo 1 tablet by mouth once dailySennosides (Senokot) 8.6 mg tablet Discontinued 8.6 MG PO Daily September 26, 2023 12:00am October 18, 2023 12:44pmStart: 45-61-4423spbc 1 tablet by mouth once dailySennosides (Senokot) 8.6 mg tablet Active 8.6 MG PO Daily September 26, 2023 12:00amsucralfate 1000 mg oral tablet (5 sources)Aluminum ComplexStart: 09-26-2023 End: 73-77-2759lfce 1 g by mouth twice dailySucralfate Discontinued 1 GM PO Twice daily September 25, 2023 11:00pm October 18, 2023 11:44amthiamine 100 mg oral tablet (5 sources)Start: 09-26-2023 End: 92-72-2854srzp 100 mg by mouth once dailyThiamine Hcl (Vitamin B1) Discontinued 100 MG PO Daily September 25, 2023 11:00pm January 02, 2024 10:08am Umeclidinium (5 sources)AnticholinergicStart: 09-26-2023 End: 88-97-3026zltz 62.5 ug by inhalation once dailyUmeclidinium (Incruse Ellipta) 62.5 mcg/actuation blister with device Discontinued 1 INH INHALATION Daily September 25, 2023 11:00pm January 02, 2024 10:10amStart: 09-26-2023 End: 67-64-8299thhq 62.5 ug by inhalation once dailyUmeclidinium (Incruse Ellipta) 62.5 mcg/actuation blister with device Discontinued 1 INH INHALATION Daily September 26, 2023 12:00am January 02, 2024 11:10amStart: 54-67-6632xalm 62.5 ug by inhalation once dailyUmeclidinium (Incruse Ellipta) 62.5 mcg/actuation blister with device Active 1 INH INHALATION DailyApr2023 12:00am Problems Active Problems Problem ClassificationProblemDateDocumented DateEpisodic/ChronicAbdominal hernia (3 sources)Inguinal hernia; Translations: [Unilateral inguinal hernia, without obstruction or gangrene, not specified as recurrent]EpisodicAlcohol-related disorders (2 sources)Alcoholic cirrhosis of liver without ascites; Translations: [Alcoholic hepatitis without ascites]Onset: 18-77-4626DqgtihrKkmvopd-related disorders (1 source)Alcohol abuse, in remission; Translations: [ALCOHOL ABUSE, IN REMISSION]Onset: 16-79-5947Wbfwpfx obstructive pulmonary disease and bronchiectasis (15 sources)Chronic obstructive pulmonary disease, unspecified; Translations: [Chronic obstructive lung disease]Onset: 62-33-7439DhtgrsbFcebdkwfvog and hemorrhagic disorders (2 sources)Coagulation defect, unspecified; Translations: [Coagulation defect, unspecified]Onset: 68-58-1253CendemkRevfgpjwwm heart failure; nonhypertensive (2 sources)Acute systolic (congestive) heart failure; Translations: [Heart failure, unspecified]Onset: 25-20-8100ZiscbdzZxstdbpzfb heart failure; nonhypertensive (1 source)Right heart failure, unspecified; Translations: [RIGHT HEART FAILURE, UNSPECIFIED]Onset: 68-44-8374Wiudngzx atherosclerosis and other heart disease (1 source)Atherosclerotic heart disease of douglas coronary artery without angina pectoris; Translations: [ASHD ZUNI CA W/O ANGINA PECTORIS]Onset: 05-04-2021 ChronicDeficiency and other anemia (3 sources)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; Translations: [Other nonautoimmune hemolytic anemias] 63-04-8186EjhupifWeadqezynx and other anemia (2 sources)Other nonautoimmune hemolytic anemias; Translations: [Other non- autoimmune hemolytic anemias]35-15-9024NsgbbtwNcywlwxyhq and other anemia (1 source)Other specified anemias; Translations: [Other specified anemias]Onset: 93-56-9257LmtywsypTnyxgkotug and other anemia (3 sources)Anemia, unspecified; Translations: [Anemia, unspecified]Onset: 524820-15-9491XdpkseodReppbsiuzu and other anemia (5 sources)Chronic anemia; Translations: [Anemia, unspecified]71-52-2682Unwrbkdr E Codes: Fall (2 sources)Unspecified fall, initial encounter; Translations: [UNSPECIFIED FALL INITIAL ENCOUNTER]Onset: 32-16-3693XtufvhdkQzmgefaev hypertension (8 sources)Essential hypertension; Translations: [Essential (primary) hypertension]ChronicFluid and electrolyte disorders (1 source)Hypo-osmolality and hyponatremia; Translations: [HYPO-OSMOLALITY AND HYPONATREMIA]Onset: 83-47-5942JoglwmrxWatagzhw of neck of femur (hip) (3 sources)Fracture of unspecified part of neck of right femur, initial encounter for closed fracture; Translations: [Fracture of unspecified part of neck of right femur, subsequent encounter for closed fracture with routine healing]Onset: 57-06-1520ItwswlzlFwagh valve disorders (1 source)Rheumatic tricuspid insufficiency; Translations: [RHEUMATIC TRICUSPID INSUFFICIENCY]Onset: 73-43-3463XrnqhpfAvbveepdaub of prostate (3 sources)Lower urinary tract symptoms due to benign prostatic hypertrophy; Translations: [Benign prostatic hyperplasia with lower urinary tract symptoms] ChronicHypertension with complications and secondary hypertension (1 source)Hypertensive heart disease with heart failure; Translations: [HYPERTENSIVE HEART DISEASE WITH HEARTFAILURE]Onset: 97-87-6659Gbmlafs Immunizations and screening for infectious disease (3 sources)Vaccination given; Translations: [Encounter for immunization]Episodic Malaise and fatigue (1 source)WeaknessEpisodicNutritional deficiencies (2 sources)Unspecified severe protein-calorie malnutrition; Translations: [UNSPECIFIED SEVERE PROTEIN-CALORIE MALNUTRITION]Onset: 76-62-1984IymrjvfBbiy wounds of head; neck; and trunk (4 sources)Laceration without foreign body of left eyelid and periocular area, initial encounter; Translations: [LAC NO FB LT EYELID PERIOCULAR INIT]Onset: 51-77-8072MsnqssgjMgwnh aftercare (1 source)[facility] (current) use of aspirin; Translations: [HALFWAY CURRENT USE OF ASPIRIN]Onset: 95-07-2065KrgulqmfXgiqq aftercare (1 source)Other rn long term care (current) drug therapy; Translations: [OTH TRAFFIC SIGN SUPERVISOR CURRENT DRUG THERAPY]Onset: 02-48-6587VeosfsgyVftpn fractures (1 source)Other specified fracture of right pubis, initial encounter for closed fracture; Translations: [Other specified fracture of right pubis, initial encounter for closed fracture]Onset: 30-68-8882FffnbwrkTukkt fractures (1 source)Other specified fracture of right pubis, sequela; Translations: [Other specified fracture of right pubis, sequela]Onset: 33-07-2542AutydsduHxokl hematologic conditions (1 source)Elevated erythrocyte sedimentation rate; Translations: [Elevated erythrocyte sedimentation rate]Onset: 99-39-8428LtitrmmaNjfsn hereditary and degenerative nervous system conditions (1 source)Degenerative disease of nervous system, unspecified; Translations: [Degenerative disease of nervoussystem, unspecified]Onset: 06-74-3412Xlmcaiq Other injuries and conditions due to external causes (1 source)Fracture of boneOnset: 38-63-9276ZuxmlwhuKejyj injuries and conditions due to external causes (4 sources)H/O: hip fracture; Translations: [Personal history of (healed) traumatic fracture]26-59-5554XjltxhboYsxdg lower respiratory disease (1 source)Other abnormalities of breathing; Translations: [Other abnormalities of breathing]Onset: 41-58-4441NdorvsqlBosan nutritional; endocrine; and metabolic disorders (1 source)Hypomagnesemia; Translations: [HYPOMAGNESEMIA]Onset: 58-58-7864Fxmwcfs Other nutritional; endocrine; and metabolic disorders (1 source)Abnormal weight lossEpisodicResidual codes; unclassified (1 source)Body mass index (BMI) 23.0-23.9, adult; Translations: [BODY MASS INDEX (BMI) 23.0-23.9, ADULT]Onset: 62-19-1729ZytsueuwLuvomzti codes; unclassified (1 source)Altered mental status, unspecified; Translations: [Altered mental status, unspecified]Onset: 73-10-1614LaavtluvHazstbvl codes; unclassified (1 source)Pain, unspecified; Translations: [Pain, unspecified]Onset: 10-15-2024 EpisodicRespiratory failure; insufficiency; arrest (adult) (2 sources)Acute and chronic respiratory failure with hypoxia; Translations: [Acute and chronic respiratory failure with hypercapnia]Onset: 98-65-0231Ovvubqq Respiratory failure; insufficiency; arrest (adult) (3 sources)Acute respiratory failure with hypoxia; Translations: [ACUTE RESPIRATORY FAILURE WITH HYPOXIA]Onset: 03-58-7026EkpdnualPryewnqhp-related disorders (5 sources)Nicotine dependence, unspecified, uncomplicated; Translations: [Nicotine dependence, cigarettes, uncomplicated]Onset: 36-70-8579MszhterDifaatn (7 sources)Syncope and collapse; Translations: [Syncope and collapse]09-26-2023 EpisodicUnclassified (2 sources)Unknown / UNK(Unknown)Onset: 89-33-9099Dnhvnqnmxgxz (1 source)Hip InjuryOnset: 12-42-3497Daqzhifrkmre (1 source)EMSOnset: 32-77-9450Eawedmmxmlvp (1 source)Outpatient InfusionOnset: 37-76-8130Iszktrungcfd (1 source)Post-opOnset: 98-51-2117Vnweikvhgpoo (1 source)Closed fracture right pubic ramiOnset: 08-06-2023 Past or Other Problems Problem ClassificationProblemDateDocumented DateEpisodic/ChronicDeficiency and other anemia (2 sources)Iron deficiency anemia, unspecified; Translations: [IRON DEFICIENCY ANEMIA, UNSPECIFIED]Onset: 68-19-3844AphdvbjoPryfc lower respiratory disease (3 sources)Dyspnea; Translations: [Other forms of dyspnea]Onset: 05-08-2018 EpisodicOther nutritional; endocrine; and metabolic disorders (3 sources)Abnormal weight gain; Translations: [Abnormal weight gain]Onset: 62-31-2418Fryvkulp Results Test NameValueInterpretationReference RangeFacilityAngiotensin Converting Enzyme on 71-18-8954Owqyeyygmnu converting enzyme [Catalytic activity/Vol]27 U/LNormal 14[facility] Physician GroupComment on above:Result Comment: Performed at: - [facility] [id number] Glass Presser: Fareed Santos PhD, Phone: [phone] PERFORMED BY: [place] [address] PATHOLOGIST SIDE DOOR MAN ROBERT DAVIS M.D.Performed By: #### CBC, FE and TIBC, ARLENE #### [facility] [address] [place] [address] [place] #### LAURA #### [facility] ,Automated basophil %Ordered By: Clemente Fragoso on 32-56-6110Injaacerc/100 WBC (Bld)1.2 %Normal.[facility] Medical CenterComment on above:Performed By: #### CBC, FE and TIBC, ARLENE #### [facility] [address] [place] [address] #### LAURA #### [facility] ,Automated basophil countOrdered By: Clemente Fragoso on 47-40-5086Zgchigqwn (Bld) [#/Vol]0.1 10*3/uLNormal0.0-0.2FKettering Health Main CampusComment on above:Result Comment: PERFORMED BY: [place] [address] PATHOLOGIST SIDE DOOR MAN ROBERT DAVIS M.D.Performed By: #### CBC, FE and TIBC, ARLENE #### [place] [address] [place] #### LUARA #### [facility] ,Automated blood monocyte countOrdered By: Clemente Fragoso on 53-89-6139Wixikwmay (Bld) [#/Vol]0.9 10*3/uLHigh0.0-0.8[facility] CenterComment on above:Performed By: #### CBC, FE and TIBC, ARLENE #### [place] [address] [place] #### LAURA #### [facility] ,Automated eosinophil %Ordered By: Clemente Fragoso on 24-60-3335Cmptpmlinxp/100 WBC (Bld)2.1 %Normal.[facility] Medical CenterComment on above:Performed By: #### CBC, FE and TIBC, ARLENE #### [place] [address] [place] #### LAURA #### [facility] ,Automated eosinophil countOrdered By: Clemente Fragoso on 14-98-5677Immnwmztket (Bld) [#/Vol]0.2 10*3/uLNormal0.0-0.45[facility] CenterComment on above:Performed By: #### CBC, FE and TIBC, ARLENE #### [place] [address] [place] #### LAURA #### [facility] ,Automated monocyte %Ordered By: Clemente Fragoso on 94-12-8403Kipufjyju/100 WBC (Bld)9.8 %Normal.[facility] Medical CenterComment on above:Performed By: #### CBC, FE and TIBC, ARLENE #### [place] [address] [place] #### LAURA #### [facility] ,Automated neutrophil %Ordered By: Clemente Fragoso on 90-85-1838Glhioxcndvw/100 WBC (Bld)77.9 %Normal.[facility] Medical CenterComment on above: Performed By: #### CBC, FE and TIBC, ARLENE #### [place] [address] [place] #### LAURA #### [facility] ,Complete Blood Count Auto Diffon 91-92-0205Tsyx Corpuscular HGB Conc30.7 g/dL Low32.5-35.6The [facility] Physician GroupComment on above:Performed By: #### CBC, FE and TIBC, ARLENE #### [place] [address] [place] #### LAURA #### [facility] ,NRBC%0.1 /100{WBC}Normal0-0.5The [facility] Physician [facility] Medical CenterComment on above: Performed By: #### CBC, FE and TIBC, ARLENE #### [place] [address] [place] #### LAURA #### [facility] ,Erythrocyte distribution width [Ratio] by Automated countOrdered By: Clemente Fragoso on 07-22-0411Gvbdlhpptoz distribution width (RBC) [Ratio]19.8 %High 12.0-14.8[facility] Medical CenterComselect specialty hospital-flint on above:Performed By: #### CBC, FE and TIBC, ARLENE #### [place] [address] [place] #### LAURA #### [facility] ,Erythrocytes [#/volume] in Blood by Automated countOrdered By: Clemente Fragoso on 38-20-0097XMH (Bld) [#/Vol]3.38 10*6/uLLow3.90-5.60[facility] CenterComment on above:Performed By: #### CBC, FE and TIBC, ARLENE #### [address] #### LAURA #### [facility] ,Ferritin [Mass/volume] in Serum or PlasmaOrdered By: Clemente Fragoso on 07-41-1865Rgykmstq [Mass/Vol]8.4 ng/mLLow23.9-336.2FKettering Health Main CampusComment on above:Result Comment: PERFORMED BY: [place] [address] PATHOLOGIST SIDE DOOR MAN ROBERT DAVIS M.D.Performed By: #### CBC, FE and TIBC, ARLENE #### [address] #### LAURA #### [facility] ,Hematocrit [Volume Fraction] of Blood by Automated countOrdered By: Clemente Fragoso on 97-24-1734Nhhojzmzog (Bld) [Volume fraction]25.9 %Low38.8-50.0 [facility] Medical CenterComment on above:Performed By: #### CBC, FE and TIBC, ARLENE #### [place] [address] [place] #### LAURA #### [facility] ,Hemoglobin [Mass/volume] in BloodOrdered By: Clemente Fragoso on 04-09-2024 Hemoglobin (Bld) [Mass/Vol]8.0 g/dLLow13.0-17.0[facility] Comment on above:Performed By: #### CBC, FE and TIBC, ARLENE #### [place] [address] [place] #### LAURA #### [facility] ,Iron [Mass/volume] in Serum or PlasmaOrdered By: Clemente Fragoso on 04-09-2024 Iron [Mass/Vol]16 ug/wPVpi98-391NetiukmieLouis Stokes Cleveland Va Medical CenterComment on above:Performed By: #### CBC, FE and TIBC, ARLENE #### [facility] [address] [place] [address] [place] #### LAURA #### [facility] ,Iron and TIBC Profileon 04-09-2024% Iron Saturation4.1 %Zqj00-83Ugv [facility] Physician GroupComment on above:Performed By: #### CBC, FE and TIBC, ARLENE #### [facility] [address] [place] [address] [place] #### LAURA #### [facility] ,Total Iron Binding Zuuhhvbo788 ug/kYDfkojf446-930Bcp [facility] Group Comment on above:Performed By: #### CBC, FE and TIBC, ARLENE #### [facility] [address] [place] [address] [place] #### LAURA #### [facility] ,Iron binding capacity [Mass/volume] in Serum or PlasmaOrdered By: Clemente Fragoso on 22-08-1699Kzml binding capacity [Mass/Vol]392 ug/mV634-814QzyeqmdfjLouis Stokes Cleveland Va Medical CenterIron saturation [Mass Fraction] in Serum or PlasmaOrdered By: Clemente Fragoso on 63-04-0331Swql saturation [Mass fraction]4.1 %Gsc65-85 [facility] Medical CenterLeukocytes [#/volume] corrected for nucleated erythrocytes in Blood by Automated counOrdered By: Clemente Fragoso on 04-09-2024 WBC corrected for nucl RBC Auto (Bld) [#/Vol]9.0 10*3/uL4.1-10.5FKettering Health Main CampusLeukocytes [#/volume] in Blood by Automated countOrdered By: Clemente Fragoso on 11-73-1147JCN (Bld) [#/Vol]9.0 10*3/uLNormal4.1-10.5 [facility] CenterComment on above:Performed By: #### CBC, FE and TIBC, ARLENE #### [facility] [address] [place] [address] [place] #### LAURA #### [facility] ,Lymphocytes [#/volume] in Blood by Automated countOrdered By: Clemente Fragoso on 31-11-4804Pellnjedolu (Bld) [#/Vol]0.8 10*3/uLLow1.00-4.8[facility] CenterComment on above:Performed By: #### CBC, FE and TIBC, ARLENE #### [place] [address] [place] #### LAURA #### [facility] ,Lymphocytes/100 leukocytes in Blood by Automated countOrdered By: Clemente Fragoso on 42-28-6088Tmrmdhtkzvd/100 WBC (Bld)9.0 %Normal.[facility] Medical CenterComment on above:Performed By: #### CBC, FE and TIBC, ARLENE #### [place] [address] [place] #### LAURA #### [facility] ,MCH [Entitic mass] by Automated countOrdered By: Clemente Fragoso on 04-09-2024 MCH (RBC) [Entitic mass]23.5 pgLow27.5-35.2[facility] Comment on above:Performed By: #### CBC, FE and TIBC, ARLENE #### [place] [address] [place] #### LAURA #### [facility] ,MCHC Auto (RBC) [Mass/Vol]Ordered By: Clemente Fragoso on 07-69-4538FMLF (RBC) [Mass/Vol]30.7 g/dLLow32.5-35.6FKettering Health Main CampusMCV [Entitic volume] by Automated countOrdered By: Clemente Fragoso on 22-34-6544DEQ (RBC) [Entitic vol]76.6 fLLow83.5-101Louis [facility] Medical CenterComment on above:Performed By: #### CBC, FE and TIBC, ARLENE #### [facility] [address] [place] [address] [place] #### LAURA #### [facility] ,Neutrophils [#/volume] in Blood by Automated countOrdered By: Clemente Fragoso on 21-53-6698Udtpkjzkznj (Bld) [#/Vol]7.0 10*3/uLNormal1.8-7.7FKettering Health Main CampusComment on above:Performed By: #### CBC, FE and TIBC, ARLENE #### [place] [address] [place] #### LAURA #### [facility] ,Nucleated erythrocytes [Presence] in Blood by Automated countOrdered By: Clemente Fragoso on 45-29-9079Pkpebquwv RBC Auto Ql (Bld)0.1 /100{WBC}0-0.5FKettering Health Main CampusPlatelet mean volume [Entitic volume] in Blood by Automated countOrdered By: Clemente Fragoso on 08-98-2049Mycklfay mean volume (Bld) [Entitic vol]8.8 fLNormal6.6-10.1FKettering Health Main CampusComment on above:Performed By: #### CBC, FE and TIBC, ARLENE #### [place] [address] [place] #### LAURA #### [facility] ,Platelets [#/volume] in Blood by Automated countOrdered By: Clemente Fragoso on 69-46-5703Kzbbaschg (Bld) [#/Vol]441 10*3/oSLbjgca440-549OzwriunyiLouis Stokes Cleveland Va Medical CenterComment on above:Performed By: #### CBC, FE and TIBC, ARLENE #### [facility] [address] [place] [address] [place] #### LAURA #### [facility] ,Transferrin [Mass/volume] in Serum or PlasmaOrdered By: Clemente Fragoso on 07-95-7941Eckrkuonrqx [Mass/Vol]280 mg/zVEwoedo163-437VvuufxetaLouis Stokes Cleveland Va Medical CenterComment on above:Performed By: #### CBC, FE and TIBC, ARLENE #### [place] [address] [place] #### LAURA #### [facility] ,PATRICK Antinuclear Antibodieson 52-94-4598Ryxmkkcxwyg Abs, IFANegativeNormal.The [facility] Physician GroupComment on above:Result Comment: Negative <1:80 Borderline 1:80 Positive >1:80 ICAP nomenclature: AC-0 For more information about Hep-2 cell patterns use ANApatterns.org, the official website for the International Consensus on Antinuclear Antibody (PATRICK) Patterns (ICAP). Performed at: [facility] LabSarah [place]ille [id number] Glass Presser: Fareed Santos PhD, Phone: [phone] By: #### CBC, FE and TIBC, ARLENE #### [place] [address] [place] #### LAURA #### [facility] ,Alanine aminotransferase [Enzymatic activity/volume] in Serum or PlasmaOrdered By: Clemente Fragoso on 40-36-4673JEY [Catalytic activity/Vol]57 U/LHigh7-52 [facility] CenterComment on above:Performed By: #### CMP, ADDONUAPLUS, ESR, CBC, CK, ARLENE, CRP, FE and TIBC #### [place] [address] [place] #### SSA, SUSANA,URINE, C3, SSB, KAPPA, CH50, SUSANA SERUM, UPE RAND, C4, SPE, PATRICK #### [facility] ,Albumin [Mass/volume] in Serum or PlasmaOrdered By: Clemente Fragoso on 62-79-2467Krfeims [Mass/Vol]3.3 g/dLNormal2.9-4.4FKettering Health Main CampusComment on above:Performed By: #### CBC, FE and TIBC, ARLENE #### [place] [address] [place] #### LAURA #### [facility] ,Albumin [Mass/volume] in Serum or Plasma by Bromocresol green (BCG) dye binding methoOrdered By: Clemente Fragoso on 87-03-6944Ftgqjpc BCG dye [Mass/Vol]3.8 g/dL 3.5-5.7FKettering Health Main CampusAlbumin/Protein.total in 24 hour Urine by ElectrophoresisOrdered By: Clemente Fragoso on 28-09-2588Lwacgsp Elph (24H U) [Mass fraction]23.5 %.[facility] Medical CenterAlkaline phosphatase [Enzymatic activity/volume] in Serum or PlasmaOrdered By: Clemente Fragoso on 82-04-3656APO [Catalytic activity/Vol]139 U/LKzgw70-904QjgkysfsrLouis Stokes Cleveland Va Medical CenterComment on above:Performed By: #### CMP, ADDONUAPLUS, ESR, CBC, CK, ARLENE, CRP, FE and TIBC #### [facility] [address] [place] [address] [place] #### SSA, SUSANA,URINE, C3, SSB, KAPPA, CH50, SUSANA SERUM, UPE RAND, C4, SPE, PATRICK #### [facility] ,Aspartate aminotransferase [Enzymatic activity/volume] in Serum or Plasma Ordered By: Clemente Fragoso on 36-74-3469QSD [Catalytic activity/Vol]52 U/LHigh 13-39[facility] CenterComment on above:Performed By: #### CMP, ADDONUAPLUS, ESR, CBC, CK, ARLENE, CRP, FE and TIBC #### [facility] [address] [place] [address] [place] #### SSA, SUSANA,URINE, C3, SSB, KAPPA, CH50, SUSANA SERUM, UPE RAND, C4, SPE, PATRICK #### [facility] ,Automated basophil %Ordered By: Celmente Fragoso on 34-80-9896Ydspnsbmo/100 WBC (Bld)0.8 %Normal.[facility] Medical CenterComment on above:Performed By: #### CBC, FE and TIBC, ARLENE #### [facility] [address] [place] [address] [place] #### LAURA #### [facility] ,Automated basophil countOrdered By: Clemente Calixrob on 28-30-9508Jgbtxzpwj (Bld) [#/Vol]0.1 10*3/uLNormal0.0-0.2FKettering Health Main CampusComment on above:Performed By: #### CBC, FE and TIBC, ARLENE #### [place] [address] [place] #### LAURA #### [facility] ,Automated blood monocyte countOrdered By: Clemente Fragoso on 52-33-7988Epobdxiym (Bld) [#/Vol]0.5 10*3/uLNormal0.0-0.8[facility] Medical CenterComment on above:Performed By: #### CBC, FE and TIBC, ARLENE #### [place] [address] [place] #### LAURA #### [facility] ,Automated eosinophil %Ordered By: Clemente Fragoso on 95-75-0898Mrpairlgtbn/100 WBC (Bld)3.1 %Normal.[facility] Medical CenterComment on above:Performed By: #### CBC, FE and TIBC, ARLENE #### [place] [address] [place] #### LAURA #### [facility] ,Automated eosinophil countOrdered By: Clemente Fragoso on 34-86-2740Auefvcqsvnu (Bld) [#/Vol]0.2 10*3/uLNormal0.0-0.45[facility] CenterComment on above:Performed By: #### CBC, FE and TIBC, ARLENE #### [facility] [address] [place] [address] [place] #### LAURA #### [facility] ,Automated monocyte %Ordered By: Clemente Fragoso on 43-55-0432Jwymjsgnk/100 WBC (Bld)6.4 %Normal.[facility] Medical CenterComment on above:Performed By: #### CBC, FE and TIBC, ARLENE #### [facility] [address] [place] [address] [place] #### LAURA #### [facility] ,Automated neutrophil %Ordered By: Clemente Fragoso on 63-17-2195Vylsjlzlqnt/100 WBC (Bld)80.2 %Normal.[facility] Medical CenterComment on above: Performed By: #### CBC, FE and TIBC, ARLENE #### [facility] [address] [place] [address] [place] #### LAURA #### [facility] ,Bacteria [Presence] in Urine by AutomatedOrdered By: Clemente Fragoso on 27-48-7729Sgjddrnn Auto Ql (U)None seen [HPF]None SeenLouis Stokes Cleveland Va Medical CenterBilirubin Test strip Ql (U)Ordered By: Clemente Fragoso on 03-13-2024 Bilirubin Ql (U)NegativeNegativeLouis Stokes Cleveland Va Medical CenterBilirubin.total [Mass/volume] in Serum or PlasmaOrdered By: Clemente Fragoso on 03-13-2024 Bilirubin [Mass/Vol]0.3 mg/dLNormal0.3-1.0[facility] Comment on above:Performed By: #### CMP, ADDONUAPLUS, ESR, CBC, CK, ARLENE, CRP, FE and TIBC #### [facility] [address] [place] [address] [place] #### SSA, SUSANA,URINE, C3, SSB, KAPPA, CH50, SUSANA SERUM, UPE RAND, C4, SPE, PATRICK #### [facility] ,C reactive protein [Mass/volume] in Serum or PlasmaOrdered By: Clemente Fragoso on 04-52-0426KUX [Mass/Vol]6.5 mg/dLHigh0.0-0.5FK[facility] C-Reactive Proteinon 50-76-1597Z-Reactive Protein6.5 mg/dLHigh0.0-0.5The [facility] Physician GroupComment on above:Result Comment: PERFORMED BY: [place] [address] PATHOLOGIST SIDE DOOR MAN ROBERT DAVIS M.D.Performed By: #### CMP, ADDONUAPLUS, ESR, CBC, CK, ARLENE, CRP, FE and TIBC #### [address] #### SSA, SUSANA,URINE, C3, SSB, KAPPA, CH50, SUSANA SERUM, UPE RAND, C4, SPE, PATRICK #### [facility] ,Calcium [Mass/volume] in Serum or PlasmaOrdered By: Clemente Fragoso on 66-93-6919Vtnlmkg [Mass/Vol]10.3 mg/dLNormal8.6-10.3FKettering Health Main CampusComment on above:Performed By: #### CMP, ADDONUAPLUS, ESR, CBC, CK, ARLENE, CRP, FE and TIBC #### [address] #### SSA, SUSANA,URINE, C3, SSB, KAPPA, CH50, SUSANA SERUM, UPE RAND, C4, SPE, PATRICK #### [facility] ,Carbon dioxide, total [Moles/volume] in Serum or PlasmaOrdered By: Clemente Fragoso on 56-62-8689ZS2 [Moles/Vol]29.9 mmol/LBaatef63.0-31.0[facility] Medical CenterComment on above:Performed By: #### CMP, ADDONUAPLUS, ESR, CBC, CK, ARLENE, CRP, FE and TIBC #### [address] #### SSA, SUSANA,URINE, C3, SSB, KAPPA, CH50, SUSANA SERUM, UPE RAND, C4, SPE, PATRICK #### [facility] ,Chloride [Moles/volume] in Serum or PlasmaOrdered By: Clemente Fragoso on 03-96-5218Gsrraeli [Moles/Vol]101 mmol/NQzoisa50-761UtcfkqdtoLouis Stokes Cleveland Va Medical CenterComment on above:Performed By: #### CMP, ADDONUAPLUS, ESR, CBC, CK, ARLENE, CRP, FE and TIBC #### [facility] [address] [place] [address] [place] #### SSA, SUSANA,URINE, C3, SSB, KAPPA, CH50, SUSANA SERUM, UPE RAND, C4, SPE, PATRICK #### [facility] ,Color of Urine by AutoOrdered By: Clemente Fragoso on 71-64-1553Wdcou (U) Light-yellowNormalYMetroHealth Parma Medical CenterComment on above:Order Comment: Name Collection Type:: Clean-Voided MidstreamPerformed By: #### CMP, ADDONUAPLUS, ESR, CBC, CK, ARLENE, CRP, FE and TIBC #### [facility] [address] [place] [address] #### SSA, SUSANA,URINE, C3, SSB, KAPPA, CH50, SUSANA SERUM, UPE RAND, C4, SPE, PATRICK #### [facility] ,Complement C3on 29-92-4989Jagxatuahp C3172 mg/sSEjuu30-909Wds [facility] Physician GroupComment on above:Result Comment: Performed at: [facility] Lab[address] [id number] Glass Presser: Fareed Santos PhD, Phone: [phone] By: #### CBC, FE and TIBC, ARLENE #### [facility] [address] [place] [address] [place] #### LAURA #### [facility] ,Complement C4on 66-13-9593Hefckdntod C432 mg/pUMjyenz41-63Mlz [facility] Physician GroupComment on above:Performed By: #### CBC, FE and TIBC, ARLENE #### [facility] [address] [place] [address] [place] #### LAUAR #### [facility] ,Complement Total (CH50)on 15-93-6335Houkovxzng Total (CH50)>60Normal>41The [facility] Physician GroupComment on above:Result Comment: Age Male Female 1 - 30 [...] out of range values. Performed at: - [facility] [id number] Glass Presser: Fareed Santos PhD, Phone: [phone] PERFORMED BY: [place] [address] PATHOLOGIST SIDE DOOR MAN ROBERT DAVIS M.D.Performed By: #### CBC, FE and TIBC, ARLENE #### [address] #### LAURA #### [facility] ,Complete Blood Count Auto Diffon 62-66-6367Mihw Corpuscular HGB Conc31.9 g/dL Low32.5-35.6The [facility] Physician [facility] CenterComment on above:Performed By: #### CBC, FE and TIBC, ARLENE #### [place] [address] [place] #### LAURA #### [facility] ,NRBC%0.1 /100{WBC}Normal0-0.5The [facility]ix Clinics Of PennsylvaniaComment on above: Performed By: #### CBC, FE and TIBC, ARLENE #### [place] [address] [place] #### LAURA #### [facility] ,Comprehensive Metabolic Panelon 91-50-0640Zceathl [Mass/Vol]3.8 g/dLNormal 3.5-5.7The [facility] Physician [facility] CenterComment on above:Performed By: #### CMP, ADDONUAPLUS, ESR, CBC, CK, ARLENE, CRP, FE and TIBC #### [place] [address] [place] #### SSA, SUSANA,URINE, C3, SSB, KAPPA, CH50, SUSANA SERUM, UPE RAND, C4, SPE, PATRICK #### [facility] ,GFR/1.73 sq M.predicted MDRD (S/P/Bld) [Vol rate/Area]mL/min/{1.73_m2}NormalThe [facility] Physician GroupComment on above:Performed By: #### CMP, ADDONUAPLUS, ESR, CBC, CK, ARLENE, CRP, FE and TIBC #### [address] #### SSA, SUSANA,URINE, C3, SSB, KAPPA, CH50, SUSANA SERUM, UPE RAND, C4, SPE, PATRICK #### [facility] ,Creatine kinase [Enzymatic activity/volume] in Serum or PlasmaOrdered By: Clemente Fragoso on 82-80-1018EE [Catalytic activity/Vol]200 U/OFgqtnj68-069 [facility] Medical CenterComment on above:Result Comment: PERFORMED BY: [place] [address] PATHOLOGIST SIDE DOOR MAN ROBERT DAVIS M.D.Performed By: #### CMP, ADDONUAPLUS, ESR, CBC, CK, ARLENE, CRP, FE and TIBC #### [address] #### SSA, SUSANA,URINE, C3, SSB, KAPPA, CH50, SUSANA SERUM, UPE RAND, C4, SPE, PATRICK #### [facility] ,Creatinine [Mass/volume] in Serum or PlasmaOrdered By: Clemente Fragoso on 95-60-8987Mjmlwmsnzr [Mass/Vol]0.81 mg/dLNormal0.70-1.30[facility] Medical CenterComment on above:Performed By: #### CMP, ADDONUAPLUS, ESR, CBC, CK, ARLENE, CRP, FE and TIBC #### [place] [address] [place] #### SSA, SUSANA,URINE, C3, SSB, KAPPA, CH50, SUSANA SERUM, UPE RAND, C4, SPE, PATRICK #### [facility] ,Dipstick and Microscopicon 48-22-8550Jyyrxdsp,UrineNone SeenNormalNone SeenBaptist Children'S Hospital Physician GroupComment on above:Order Comment: Name Collection Type:: Clean-Voided MidstreamPerformed By: #### CMP, ADDONUAPLUS, ESR, CBC, CK, ARLENE, CRP, FE and TIBC #### [address] #### SSA, SUSANA,URINE, C3, SSB, KAPPA, CH50, SUSANA SERUM, UPE RAND, C4, SPE, PATRICK #### [facility] ,Bilirubin,UrineNegativeNormalNegativeBaptist Children'S Hospital Physician GroupComment on above:Order Comment: Name Collection Type:: Clean-Voided MidstreamPerformed By: #### CMP, ADDONUAPLUS, ESR, CBC, CK, ARLENE, CRP, FE and TIBC #### [address] #### SSA, SUSANA,URINE, C3, SSB, KAPPA, CH50, SUSANA SERUM, UPE RAND, C4, SPE, PATRICK #### [facility] ,Glucose Ql (U)NormalNormalNormalThe [facility] Physician GroupComment on above: Order Comment: Name Collection Type:: Clean-Voided MidstreamPerformed By: #### CMP, ADDONUAPLUS, ESR, CBC, CK, ARLENE, CRP, FE and TIBC #### [address] #### SSA, SUSANA,URINE, C3, SSB, KAPPA, CH50, SUSANA SERUM, UPE RAND, C4, SPE, PATRICK #### [facility] ,Hyaline Casts,UrineNoneNormal0-8The [facility] Physician GroupComment on above: Order Comment: Name Collection Type:: Clean-Voided MidstreamPerformed By: #### CMP, ADDONUAPLUS, ESR, CBC, CK, ARLENE, CRP, FE and TIBC #### [address] #### SSA, SUSANA,URINE, C3, SSB, KAPPA, CH50, SUSANA SERUM, UPE RAND, C4, SPE, PATRICK #### [facility] ,Mucus,UrineRareNormalThe [facility] Physician GroupComment on above:Order Comment: Name Collection Type:: Clean-Voided MidstreamResult Comment: PERFORMED BY: [place] [address] PATHOLOGIST SIDE DOOR MAN ROBERT DAVIS M.D.Performed By: #### CMP, ADDONUAPLUS, ESR, CBC, CK, ARLENE, CRP, FE and TIBC #### [address] #### SSA, SUSANA,URINE, C3, SSB, KAPPA, CH50, SUSNAA SERUM, UPE RAND, C4, SPE, PATRICK #### [facility] ,Nitrite,UrineNegativeNormalNegativeThe [facility] Physician GroupComment on above:Order Comment: Name Collection Type:: Clean-Voided MidstreamPerformed By: #### CMP, ADDONUAPLUS, ESR, CBC, CK, ARLENE, CRP, FE and TIBC #### [address] #### SSA, SUSANA,URINE, C3, SSB, KAPPA, CH50, SUSANA SERUM, UPE RAND, C4, SPE, PATRICK #### [facility] ,Occult Blood,UrineNegativeNormalNegativeThe [facility] Physician GroupComment on above:Order Comment: Name Collection Type:: Clean-Voided MidstreamPerformed By: #### CMP, ADDONUAPLUS, ESR, CBC, CK, ARLENE, CRP, FE and TIBC #### [address] #### SSA, SUSANA,URINE, C3, SSB, KAPPA, CH50, SUSANA SERUM, UPE RAND, C4, SPE, PATRICK #### [facility] ,Protein,UrineNegativeNormalNegativeThe [facility] Physician GroupComment on above:Order Comment: Name Collection Type:: Clean-Voided MidstreamPerformed By: #### CMP, ADDONUAPLUS, ESR, CBC, CK, ARLENE, CRP, FE and TIBC #### [address] #### SSA, SUSANA,URINE, C3, SSB, KAPPA, CH50, SUSANA SERUM, UPE RAND, C4, SPE, PATRICK #### [facility] ,RBC,UrineNone SeenNormal0-4The [facility] Physician GroupComment on above:Order Comment: Name Collection Type:: Clean-Voided MidstreamPerformed By: #### CMP, ADDONUAPLUS, ESR, CBC, CK, ARLENE, CRP, FE and TIBC #### [address] #### SSA, SUSANA,URINE, C3, SSB, KAPPA, CH50, SUSANA SERUM, UPE RAND, C4, SPE, PATRCIK #### [facility] ,Specificy [place],Urine1.779Tfoiwu3.001-1.030The [facility] Comment on above:Order Comment: Name Collection Type:: Clean-Voided Midstream Performed By: #### CMP, ADDONUAPLUS, ESR, CBC, CK, ARLENE, CRP, FE and TIBC #### [address] #### SSA, SUSANA,URINE, C3, SSB, KAPPA, CH50, SUSANA SERUM, UPE RAND, C4, SPE, PATRICK #### [facility] ,Urobilinogen,UrineNormalNormalNormalThe [facility] Phys[facility] GroupComment on above:Order Comment: Name Collection Type:: Clean-Voided MidstreamPerformed By: #### CMP, ADDONUAPLUS, ESR, CBC, CK, ARLENE, CRP, FE and TIBC #### [place] [address] [place] #### SSA, SUSANA,URINE, C3, SSB, KAPPA, CH50, SUSANA SERUM, UPE RAND, C4, SPE, PATRICK #### [facility] ,WBC,Kmqqh8-1Pwfist4-4Gni [facility] Physician GroupComment on above:Order Comment: Name Collection Type:: Clean-Voided MidstreamPerformed By: #### CMP, ADDONUAPLUS, ESR, CBC, CK, ARLENE, CRP, FE and TIBC #### [facility] [address] [place] [address] #### SSA, SUSANA,URINE, C3, SSB, KAPPA, CH50, SUSANA SERUM, UPE RAND, C4, SPE, PATRICK #### [facility] ,Epithelial cells.squamous [#/area] in Urine sediment by Automated countOrdered By: Clemente Fragoso on 76-91-7508Wnnmsobbje cells.squamous Auto (Urine sed) [#/Area]N/[facility] HospitalErythrocyte Sedimentation Rateon 92-89-1887RJJ (Bld) [Velocity]73 mm/hHigh0-19The [facility] Comment on above:Result Comment: PERFORMED BY: [place] [address] PATHOLOGIST SIDE DOOR MAN ROBERT DAVIS M.D.Performed By: #### CBC, FE and TIBC, ARLENE #### [address] #### LAURA #### [facility] ,Erythrocyte distribution width [Ratio] by Automated countOrdered By: Clemente Fragoso on 55-14-2921Qdvwyxrzptc distribution width (RBC) [Ratio]18.9 %High 12.0-14.8[facility] Medical CenterComment on above:Performed By: #### CBC, FE and TIBC, ARLENE #### [address] #### LAURA #### [facility] ,Erythrocyte sedimentation rate by Photometric methodOrdered By: Clemente Fragoso on 45-23-9308HAZ Photometric method (Bld) [Velocity]73 mm/hrHigh0-19[facility] Medical CenterErythrocytes [#/area] in Urine sediment by Automated countOrdered By: Clemente Fragoso on 44-76-7631AXR Auto (Urine sed) [#/Area]None seen [HPF]0-4FKettering Health Main CampusErythrocytes [#/volume] in Blood by Automated countOrdered By: Clemente Fragoso on 56-42-3761KAB (Bld) [#/Vol]3.18 10*6/uLLow3.90-5.60Louis [facility] Medical CenterComment on above:Performed By: #### CBC, FE and TIBC, ARLENE #### [facility] [address] [place] [address] [place] #### LAURA #### [facility] ,Ferritin [Mass/volume] in Serum or PlasmaOrdered By: Clemente Fragoso on 50-47-4436Dxavgdpy [Mass/Vol]38.6 ng/kCHakwox45.9-336.2FKettering Health Main CampusComment on above:Performed By: #### CMP, ADDONUAPLUS, ESR, CBC, CK, ARLENE, CRP, FE and TIBC #### [place] [address] [place] #### SSA, SUSANA,URINE, C3, SSB, KAPPA, CH50, SUSANA SERUM, UPE RAND, C4, SPE, PATRICK #### [facility] ,Free K+L LT Chains, Qn, Son 02-76-6233Scpj Glenvil Light Chains, S71.1 mg/LHigh 3.3-19.4The [facility] Physician GroupComment on above:Performed By: #### CBC, FE and TIBC, ARLENE #### [facility] [address] [place] [address] [place] #### LAURA #### [facility] ,Free Lambda Light Chains, S59.2 mg/LHigh5.7-26.3[facility] Comment on above:Performed By: #### CBC, FE and TIBC, ARLENE #### [place] [address] [place] #### LAURA #### [facility] ,Glenvil/Lambda Ratio, S1.77Hturze6.26-1.65The [facility] Physician GroupComment on above:Result Comment: Performed at: - [facility] [address], [place], [place] [id number] Glass Presser: Fareed Santos PhD, Phone: [phone] PERFORMED BY: [place] [address] PATHOLOGIST SIDE DOOR MAN ROBERT DAVIS M.D.Performed By: #### CBC, FE and TIBC, ARLENE #### [place] [address] [place] #### LAURA #### [facility] ,Gamma globulin/Protein.total in 24 hour Urine by ElectrophoresisOrdered By: Clemente Fragoso on 91-61-4002Lyrfe globulin Elph (24H U) [Mass fraction]31.1 %. [facility] Medical CenterGlucose [Mass/volume] in Serum or PlasmaOrdered By: Clemente Fragoso on 52-46-0298Krdgeji [Mass/Vol]123 mg/gJYvwe03-002LlypqdvfbLouis Stokes Cleveland Va Medical CenterComment on above:ADA recommended reference rangeRandom Glucose Reference Range is dependent on time and content of last meal. Glucose of more than 200 mg/dL in a nonstressed, ambulatory subject supports the diagnosisof Diabetes Mellitus.Result Comment: Random Glucose Reference Range is dependent on time and content of last meal. Glucose of more than 200 mg/dL in a nonstressed, ambulatory subject supports the diagnosis of Diabetes Mellitus. ADA recommended reference rangePerformed By: #### CMP, ADDONUAPLUS, ESR, CBC, CK, ARLENE, CRP, FE and TIBC #### [place] [address] [place] #### SSA, SUSANA,URINE, C3, SSB, KAPPA, CH50, SUSANA SERUM, UPE RAND, C4, SPE, PATRICK #### [facility] ,Glucose [Mass/volume] in Urine by Test stripOrdered By: Clemente Fragoso on 04-30-1246Iqqnlrs Test strip (U) [Mass/Vol]Normal mg/dLNormalLouis Stokes Cleveland Va Medical CenterHematocrit [Volume Fraction] of Blood by Automated countOrdered By: Clemente Fragoso on 60-21-2779Xrvjmfjoui (Bld) [Volume fraction]26.1 %Low 38.8-50.0[facility] Medical CenterComment on above:Performed By: #### CBC, FE and TIBC, ARLENE #### [facility] [address] [place] [address] [place] #### LAURA #### [facility] ,Hemoglobin Test strip Ql (U)Ordered By: Clemente Fragoso on 82-25-8947Wgyunzlzwe Ql (U)NegativeNegativeLouis Stokes Cleveland Va Medical CenterHemoglobin [Mass/volume] in BloodOrdered By: Clemente Fragoso on 89-79-4918Btvgggaxsv (Bld) [Mass/Vol]8.3 g/dLLow13.0-17.0[facility] Medical CenterComment on above:Performed By: #### CBC, FE and TIBC, ARLENE #### [facility] [address] [place] [address] [place] #### LAURA #### [facility] ,Hyaline casts [#/area] in Urine sediment by Automated countOrdered By: Clemente Fragoso on 91-21-9558Ezxshtt casts Auto (Urine sed) [#/Area]None [LPF]0-8 [facility] Medical CenterIgA [Mass/volume] in Serum or PlasmaOrdered By: Clemente Fragoso on 59-07-0624YjO [Mass/Vol]551 mg/cLShqn15-945QujyntcavLouis Stokes Cleveland Va Medical CenterIgG [Mass/volume] in Serum or PlasmaOrdered By: Clemente Fragoso on 06-82-2909ObN [Mass/Vol]1286 mg/fI662-5070HpdgpbcarLouis Stokes Cleveland Va Medical CenterIgM [Mass/volume] in Serum or PlasmaOrdered By: Clemente Fragoso on 11-78-4084DgL [Mass/Vol]191 mg/lLFnaa93-954ZnmbhnoviLouis Stokes Cleveland Va Medical CenterComment on above: Performed at: [place] [facility] [id number] Director: Fareed Santos PhD, Phone: [phone] for Urine Ordered By: Clemente Fragoso on 66-42-0867Fvncqjwqyxocmj Immunofixation (U) [Interp]Comment.[facility] Medical CenterComment on above:No monoclonality detected.Performed at: [facility] [id number] Director: Fareed Santos PhD, Phone: [phone] Immunofixation, (SUSANA), Urineon 22-30-6479Asxovrdywmoygc, (SUSANA), UrineComment Normal.The [facility] Physician GroupComment on above:Result Comment: No monoclonality detected. Performed at: [facility] [id number] Glass Presser: Fareed Santos PhD, Phone: [phone] By: #### CBC, FE and TIBC, ARLENE #### [place] [address] [place] #### LAURA #### [facility] ,Immunofixation,Serumon 23-63-2527Qaflydlahqyyds, SerumComment:Normal.The [facility] Physician GroupComment on above:Result Comment: Presence of monoclonal protein is unclear at this time. Suggest repeat in 3 to 6 months if clinically indicated.Performed By: #### CBC, FE and TIBC, ARLENE #### [facility] [address] [place] [address] [place] #### LAURA #### [facility] ,Immunoglobulin A, Jzuqe991 mg/eMDkzr65-053Jku [facility] Physician [facility] CenterComment on above:Performed By: #### CBC, FE and TIBC, ARLENE #### [facility] [address] [place] [address] [place] #### LAURA #### [facility] ,Immunoglobulin G1286 mg/aKCgwkei856-9375Ezm [facility] Clinics Of PennsylvaniaComment on above:Performed By: #### CBC, FE and TIBC, ARLENE #### [facility] [address] [place] [address] [place] #### LAURA #### [facility] ,Immunoglobulin M, Sfokp456 mg/uEUkea69-844NpvWinston Medical CenterComment on above:Result Comment: Performed at: [facility] [address] [place] [address] Glass Presser: Fareed Santos PhD, Phone: [phone] By: #### CBC, FE and TIBC, ARLENE #### [facility] [address] #### LAURA #### [facility] ,Immunoglobulin light chains.kappa.free [Mass/volume] in SerumOrdered By: Clemente Fragoso on 71-70-8367Qcgvgykcdkqvuw light chains.kappa.free (S) [Mass/Vol]71.1 mg/LHigh3.3-19.4FKettering Health Main CampusImmunoglobulin light chains.kappa.free/Immunoglobulin light chains.lambda.free [MassOrdered By: Clemente Fragoso on 96-37-5618Fdnbnylchbcyqv light chains.kappa.free/Immunoglobulin light chains.lambda.free (S) [Mass ratio]1.20 0.26-1.65[facility] Medical CenterComment on above:Performed at: [facility] [place], [place] [id number] Director: Fareed Santos PhD, Phone: [phone] light chains.lambda.free [Mass/volume] in Serum or PlasmaOrdered By: Clemente Fragoso on 03-13-2024 Immunoglobulin light chains.lambda.free [Mass/Vol]59.2 mg/LHigh5.7-26.3FKettering Health Main CampusIron [Mass/volume] in Serum or PlasmaOrdered By: Clemente Fragoso on 24-37-6738Nldb [Mass/Vol]20 ug/wAVse58-992PacvzzqdnLouis Stokes Cleveland Va Medical CenterComment on above:Performed By: #### CMP, ADDONUAPLUS, ESR, CBC, CK, ARLENE, CRP, FE and TIBC #### [facility] [address] [place] [address] [place] #### SSA, SUSANA,URINE, C3, SSB, KAPPA, CH50, SUSANA SERUM, UPE RAND, C4, SPE, PATRICK #### [facility] ,Iron and TIBC Profileon 03-13-2024% Iron Saturation5.4 %Vqf19-68Ocg [facility] Physician GroupComment on above:Performed By: #### CMP, ADDONUAPLUS, ESR, CBC, CK, ARLENE, CRP, FE and TIBC #### [facility] [address] [place] [address] [place] #### SSA, SUSANA,URINE, C3, SSB, KAPPA, CH50, SUSANA SERUM, UPE RAND, C4, SPE, PATRICK #### [facility] ,Total Iron Binding Bowvbdzf041 ug/gSWldfld732-227Goa [facility] Comment on above:Performed By: #### CMP, ADDONUAPLUS, ESR, CBC, CK, ARLENE, CRP, FE and TIBC #### [facility] [address] [place] [address] [place] #### SSA, SUSANA,URINE, C3, SSB, KAPPA, CH50, SUSANA SERUM, UPE RAND, C4, SPE, PATRICK #### [facility] ,Iron binding capacity [Mass/volume] in Serum or PlasmaOrdered By: Clemente Fragoso on 65-53-1115Mdzh binding capacity [Mass/Vol]370 ug/mA060-692UvzfcmtsrLouis Stokes Cleveland Va Medical CenterIron saturation [Mass Fraction] in Serum or PlasmaOrdered By: Clemente Fragoso on 66-21-1061Dadg saturation [Mass fraction]5.4 %Xds58-05 [facility] Medical CenterKetones [Presence] in Urine by Test strip Ordered By: Clemente Fragoso on 46-29-9552Xgvwwpp Ql (U)NegativeNormalNegative [facility] Medical CenterComment on above:Order Comment: Name Collection Type:: Clean-Voided MidstreamPerformed By: #### CMP, ADDONUAPLUS, ESR, CBC, CK, ARLENE, CRP, FE and TIBC #### [facility] [address] [place] [address] #### SSA, SUSANA,URINE, C3, SSB, KAPPA, CH50, SUSANA SERUM, UPE RAND, C4, SPE, PATRICK #### [facility] ,Leukocyte esterase [Presence] in Urine by Test stripOrdered By: Clemente Fragoso on 16-16-7065Prydzmcrm esterase Test strip Ql (U)NegativeNormalNegativeLouis Stokes Cleveland Va Medical CenterComment on above:Order Comment: Name Collection Type:: Clean-Voided MidstreamPerformed By: #### CMP, ADDONUAPLUS, ESR, CBC, CK, ARLENE, CRP, FE and TIBC #### [address] #### SSA, SUSANA,URINE, C3, SSB, KAPPA, CH50, SUSANA SERUM, UPE RAND, C4, SPE, PATRICK #### [facility] ,Leukocytes [#/area] in Urine sediment by Automated countOrdered By: Clemente Fragoso on 11-79-4170DPV Auto (Urine sed) [#/Area]1-2 [HPF]0-4FKettering Health Main CampusLeukocytes [#/volume] corrected for nucleated erythrocytes in Blood by Automated counOrdered By: Clemente Fragoso on 87-35-9575GUN corrected for nucl RBC Auto (Bld) [#/Vol]8.0 10*3/uL4.1-10.5FKettering Health Main Campus Leukocytes [#/volume] in Blood by Automated countOrdered By: Clemente Fragoso on 18-91-0343MNS (Bld) [#/Vol]8.0 10*3/uLNormal4.1-10.5FKettering Health Main CampusComment on above:Performed By: #### CBC, FE and TIBC, ARLENE #### [place] [address] [place] #### LAURA #### [facility] ,Lymphocytes [#/volume] in Blood by Automated countOrdered By: Clemente Fragoso on 01-91-1189Jkjglsxufgt (Bld) [#/Vol]0.8 10*3/uLLow1.00-4.8[facility] Medical CenterComment on above:Performed By: #### CBC, FE and TIBC, ARLENE #### [place] [address] [place] #### LAURA #### [facility] ,Lymphocytes/100 leukocytes in Blood by Automated countOrdered By: Clemente Fragoso on 75-58-7875Yvwtabpdobx/100 WBC (Bld)9.5 %Normal.[facility] Medical CenterComment on above:Performed By: #### CBC, FE and TIBC, ARLENE #### [place] [address] [place] #### LAURA #### [facility] ,MCH [Entitic mass] by Automated countOrdered By: Clemente Fragoso on 03-13-2024 MCH (RBC) [Entitic mass]26.2 pgLow27.5-35.2FK[facility] Campus Comment on above:Performed By: #### CBC, FE and TIBC, ARLENE #### [place] [address] [place] #### LAURA #### [facility] ,MCHC Auto (RBC) [Mass/Vol]Ordered By: Clemente Fragoso on 07-79-4583VSTQ (RBC) [Mass/Vol]31.9 g/dLLow32.5-35.6FKettering Health Main CampusMCV [Entitic volume] by Automated countOrdered By: Clemente Fragoso on 69-25-2487LCC (RBC) [Entitic vol]82.1 fLLow83.5-101Louis [facility] Medical CenterComment on above:Performed By: #### CBC, FE and TIBC, ARLENE #### [place] [address] [place] #### LAURA #### [facility] ,Mucus [Presence] in Urine by AutomatedOrdered By: Clemente Fragoso on 03-13-2024 Mucus Auto Ql (U)Rare [LPF][facility] Medical CenterNeutrophils [#/volume] in Blood by Automated countOrdered By: Clemente Fragoso on 03-13-2024 Neutrophils (Bld) [#/Vol]6.4 10*3/uLNormal1.8-7.7FKettering Health Main CampusComment on above:Performed By: #### CBC, FE and TIBC, ARLENE #### [facility] [address] #### LAURA #### [facility] ,Nitrite Test strip Ql (U)Ordered By: Clemente Fragoso on 66-92-4914Mwnfido Ql (U) NegativeNegativeLouis Stokes Cleveland Va Medical CenterNo Panel InformationOrdered By: Clemente Fragoso on 62-86-5124Ehuxwrnuv GFR (CKD-EPI)> 60.0 mL/MinLouis Stokes Cleveland Va Medical CenterPharmacy Creatinine Clearance (ChemN/AFKettering Health Main CampusProtein Electrophoresis M-SpikeNot observed g/dLNot Observed [facility] CenterProtein Electrophoresis NoteComment.[facility] Medical CenterComment on above:Protein electrophoresis scan will follow via computer,mail, or director of assessment delivery.Performed at: [employer] [address] Director: Fareed Santos PhD, Phone: [phone] ImmunofixationComment:.[facility] Medical CenterComment on above:Presence of monoclonal protein is unclear at this time. Suggestrepeat in 3 to 6 months if clinically indicated.Total Complement (CH50)>60 U/mL>41 [facility] Medical CenterComment on above:Age Male Female 1 - 30 days Not Estab. Not Estab. 31 days - 6 months >32 >20 7 months - 17 years >39 >39 >17 years >41 >41 NOTE: The adult ( >17 years ) reference intervalrange is used to flag abnormals on this report. If the patient is 17 years old or younger, use the table above to determine out of range values.Performed at: [employer] [id number] Director: Fareed Santos PhD, Phone: [phone] Random Prot Electrophor NoteComment.[facility] Medical CenterComment on above:Protein electrophoresis scan will follow via computer,mail, or director of assessment delivery.Nucleated erythrocytes [Presence] in Blood by Automated countOrdered By: Clemente Fragoso on 83-53-7134Alrvtqmen RBC Auto Ql (Bld)0.1 /100{WBC}0-0.5FKettering Health Main CampusPlatelet mean volume [Entitic volume] in Blood by Automated countOrdered By: Clemente Fragoso on 60-58-1148Dppavkbv mean volume (Bld) [Entitic vol]9.1 fLNormal6.6-10.1FKettering Health Main CampusComment on above:Performed By: #### CBC, FE and TIBC, ARLENE #### [place] [address] [place] #### LAURA #### [facility] ,Platelets [#/volume] in Blood by Automated countOrdered By: Clemente Fragoso on 49-61-3482Tzvwslcqn (Bld) [#/Vol]347 10*3/vYHjvlnh185-302PlvlrmwtaLouis Stokes Cleveland Va Medical CenterComment on above:Performed By: #### CBC, FE and TIBC, ARLENE #### [place] [address] [place] #### LAURA #### [facility] ,Potassium [Moles/volume] in Serum or PlasmaOrdered By: Clemente Fragoso on 04-35-2066Bnmqoctjp [Moles/Vol]4.2 mmol/LNormal3.5-5.1FKettering Health Main CampusComment on above:Performed By: #### CMP, ADDONUAPLUS, ESR, CBC, CK, ARLENE, CRP, FE and TIBC #### [facility] [address] [place] [address] [place] #### SSA, SUSANA,URINE, C3, SSB, KAPPA, CH50, SUSANA SERUM, UPE RAND, C4, SPE, PATRICK #### [facility] ,Protein Electro, Random Urineon 19-70-5053Nptngqp, Urine23.5 %Normal.The [facility] Physician GroupComment on above:Performed By: #### CBC, FE and TIBC, ARLENE #### [place] [address] [place] #### LAURA #### [facility] ,Huwom-8-Csexrtvo, Urine2.4 %Normal.The [facility] Physician GroupComment on above:Performed By: #### CBC, FE and TIBC, ARLENE #### [place] [address] [place] #### LAURA #### [facility] ,Swnbk-5-Atbahbgk, Urine13.7 %Normal.The [facility] Physician GroupComment on above:Performed By: #### CBC, FE and TIBC, ARLENE #### [place] [address] [place] #### LAURA #### [facility] ,Beta Globulin, Urine29.3 %Normal.The [facility] Physician GroupComment on above: Performed By: #### CBC, FE and TIBC, ARLENE #### [place] [address] [place] #### LAURA #### [facility] ,Gamma Globulin, Urine31.1 %Normal.The [facility] Physician GroupComment on above:Performed By: #### CBC, FE and TIBC, ARLENE #### [place] [address] [place] #### LAURA #### [facility] ,M-Trey %Not ObservedNormalNot ObservedThe [facility] Physician GroupComment on above:Performed By: #### CBC, FE and TIBC, ARLENE #### [place] [address] [place] #### LAURA #### [facility] ,Please Note:CommentNormal.The [facility] Physician GroupComment on above:Result Comment: Protein electrophoresis scan will follow via computer, mail, or director of assessment delivery. PERFORMED BY: [place] [address] PATHOLOGIST SIDE DOOR MAN ROBERT DAVIS M.D.Performed By: #### CBC, FE and TIBC, ARLENE #### [place] [address] [place] #### LAURA #### [facility] ,Protein Electrophoresis, Serumon 39-82-4223Uqrnh-1-Globulin0.5 g/dLHigh0.0-0.4 The [facility] Physician GroupComment on above:Performed By: #### CBC, FE and TIBC, ARLENE #### [place] [address] [place] #### LAURA #### [facility] ,Jkphi-8-Xsareyus7.1 g/dLHigh0.4-1.0The [facility] Physician GroupComment on above:Performed By: #### CBC, FE and TIBC, ARLENE #### [place] [address] [place] #### LAURA #### [facility] ,Beta Globulin1.2 g/dLNormal0.7-1.3The [facility] Physician GroupComment on above:Performed By: #### CBC, FE and TIBC, ARLENE #### [place] [address] [place] #### LAURA #### [facility] ,Gamma Globulin1.4 g/dLNormal0.4-1.8The [facility] Physician GroupComment on above:Performed By: #### CBC, FE and TIBC, ARLENE #### [place] [address] [place] #### LAURA #### [facility] ,M-SpikeNot ObservedNormalNot ObservedThe [facility] Physician GroupComment on above:Performed By: #### CBC, FE and TIBC, ARLENE #### [place] [address] [place] #### LAURA #### [facility] ,SPE-NoteCommentNormal.The [facility] Physician GroupComment on above:Result Comment: Protein electrophoresis scan will follow via computer, mail, or director of assessment delivery. Performed at: [facility] [id number] Glass Presser: Fareed Santos PhD, Phone: [phone] By: #### CBC, FE and TIBC, ARLENE #### [facility] [address] [place] [address] [place] #### LAURA #### [facility] ,Protein Test strip (U) [Mass/Vol]Ordered By: Clemente Fragoso on 03-13-2024 Protein (U) [Mass/Vol]NegativeNegativeLouis Stokes Cleveland Va Medical CenterProtein [Mass/volume] in Serum or PlasmaOrdered By: Clemente Fragoso on 59-86-2062Ceuplqg [Mass/Vol]7.2 g/dLNormal6.4-8.9[facility] Medical CenterComment on above:Performed By: #### CMP, ADDONUAPLUS, ESR, CBC, CK, ARLENE, CRP, FE and TIBC #### [facility] [address] [place] [address] [place] #### SSA, SUSANA,URINE, C3, SSB, KAPPA, CH50, SUSANA SERUM, UPE RAND, C4, SPE, PATRICK #### [facility] ,Protein [Mass/Vol]7.4 g/dLNormal6.0-8.5FKettering Health Main CampusComment on above:Performed By: #### CBC, FE and TIBC, ARLENE #### [facility] [address] [place] [address] [place] #### LAURA #### [facility] ,Protein [Mass/volume] in UrineOrdered By: Clemente Fragoso on 44-98-2660Xznzbnb (U) [Mass/Vol]12.6 mg/dLNormalNot Estab.[facility] Medical CenterComment on above:Performed By: #### CBC, FE and TIBC, ARLENE #### [facility] [address] [place] [address] [place] #### LAURA #### [facility] ,Protein.monoclonal/Protein.total in 24 hour Urine by ElectrophoresisOrdered By: Clemente Fragoso on 03-94-5752Xywftsp.monoclonal Elph (24H U) [Mass fraction]Not observed %Not ObservedMary Rutan HospitalS-A/Ro Sjogrens Antibody on 56-69-8126UY-A/Ro Sjogrens Antibody<0.2Lwqzjt9.0-0.9The [facility] Physician GroupComment on above:Performed By: #### CBC, FE and TIBC, ARLENE #### [place] [address] [place] #### LAURA #### [facility] ,SS-B/La Sjogrens Antibodyon 45-85-3117GD-B/La Sjogrens Antibody<0.2Normal 0.0-0.9The [facility] Physician GroupComment on above:Result Comment: Performed at: [employer] [place] [id number] Glass Presser: Fareed Santos PhD, Phone: [phone] By: #### CBC, FE and TIBC, ARLENE #### [place] [address] [place] #### LAURA #### [facility] ,Serum Sjogrens syndrome-A extractable nuclear antibody assay (units/volume) Ordered By: Clemente Fragoso on 37-46-5057Pgefjror syndrome-A extractable nuclear Ab Qn (S)<0.2 AI0.0-0.9Mary Rutan Hospitalerum Sjogrens syndrome- B extractable nuclear antibody assay (units/volume)Ordered By: Clemente Fragoso on 10-88-8798Oefgpcye syndrome-B extractable nuclear Ab Qn (S)<0.2 AI0.0-0.9 [facility] Medical CenterComment on above:Performed at: [employer] [place] [id number] Director: Fareed Santos PhD, Phone: [phone] globulin measurement (mass/volume)Ordered By: Clemente Fragoso on 13-07-2002Oevxlrrj (S) [Mass/Vol]4.1 g/dLHigh2.2-3.9[facility] Medical CenterComment on above:Performed By: #### CBC, FE and TIBC, ARLENE #### [facility] [address] [place] [address] [place] #### LAURA #### [facility] ,Serum globulin measurement by calculation (mass/volume)Ordered By: Clemente Fragoso on 50-73-0032Xvuuutuo (S) [Mass/Vol]3.4 g/dLNormalLouis Stokes Cleveland Va Medical CenterComment on above:Performed By: #### CMP, ADDONUAPLUS, ESR, CBC, CK, ARLENE, CRP, FE and TIBC #### [facility] [address] [place] [address] [place] #### SSA, SUSANA,URINE, C3, SSB, KAPPA, CH50, SUSANA SERUM, UPE RAND, C4, SPE, PATRICK #### [facility] ,Serum homogeneous pattern antinuclear antibody (PATRICK) titerOrdered By: Clemente Fragoso on 60-30-8000Dximjnurjc nuclear Ab pattern (S) [Titer]N/Bethesda North Hospitalerum nuclear antibody titerOrdered By: Clemente Fragoso on 06-81-9421Ccwldkv Ab (S) [Titer]Negative.[facility] Comment on above:Negative <1:80 Borderline 1:80 Positive >1:80ICAP nomenclature: AC-0For more information about Hep-2 cell patterns useANApatterns.org, the official website for theInternational Consensus on Antinuclear Antibody (PATRICK)Patterns (ICAP).Performed at: - [facility] [id number] [place], [id number] Director: Fareed Santos PhD, Phone: [phone] or plasma albumin/globulin mass ratioOrdered By: Clemente Fragoso on 10-09-2024 Albumin/Globulin [Mass ratio]1.1 {ratio}NormalLouis Stokes [facility] Comment on above:Performed By: #### CMP, ADDONUAPLUS, ESR, CBC, CK, ARLENE, CRP, FE and TIBC #### [facility] [address] [place] [address] [place] #### SSA, SUSANA,URINE, C3, SSB, KAPPA, CH50, SUSANA SERUM, UPE RAND, C4, SPE, PATRICK #### [facility] ,Albumin/Globulin [Mass ratio]0.8 {ratio}Normal0.7-1.7FKettering Health Main CampusComment on above:Performed By: #### CBC, FE and TIBC, ARLENE #### [facility] [address] [place] [address] [place] #### LAURA #### [facility] ,Serum or plasma alpha 1 globulin measurement by electrophoresis (mass/volume) Ordered By: Clemente Fragoso on 09-91-7925Zfbkb 1 globulin Elph [Mass/Vol]0.5 g/dL High0.0-0.4FOur Lady of Mercy Hospitalerum or plasma alpha 2 globulin measurement by electrophoresis (mass/volume)Ordered By: Clemente Fragoso on 75-79-2182Dvvsv 2 globulin Elph [Mass/Vol]1.1 g/dLHigh0.4-1.0Mary Rutan Hospitalerum or plasma anion gap determinationOrdered By: Clemente Fragoso on 80-56-7192Czkvm gap [Moles/Vol]8.3 mmol/LNormal6.0-15.0Louis [facility] Medical CenterComment on above:Performed By: #### CMP, ADDONUAPLUS, ESR, CBC, CK, ARLENE, CRP, FE and TIBC #### [facility] [address] [place] [address] [place] #### SSA, SUSANA,URINE, C3, SSB, KAPPA, CH50, SUSANA SERUM, UPE RAND, C4, SPE, PATRICK #### [facility] ,Serum or plasma beta globulin measurement by electrophoresis (mass/volume) Ordered By: Clemente Fragoso on 62-45-5301Smea globulin Elph [Mass/Vol]1.2 g/dL 0.7-1.3FOur Lady of Mercy Hospitalerum or plasma complement C3 measurement (mass/volume)Ordered By: Clemente Fragoso on 72-72-0423Kmrqkpacon C3 [Mass/Vol]172 mg/xWIxkk81-357GsvxfloxiLouis Stokes Cleveland Va Medical CenterComment on above: Performed at: - [address] [id number] Director: Fareed Santos PhD, Phone: [phone] or plasma complement C4 measurement (mass/volume)Ordered By: Clemente Fragoso on 03-50-2522Rtnehdqfts C4 [Mass/Vol]32 mg/rW73-70OwlqqieqrMary Rutan Hospitalerum or plasma gamma globulin measurement by electrophoresis (mass/volume)Ordered By: Clemente Fragoso on 32-07-1108Mrphb globulin Elph [Mass/Vol]1.4 g/dL0.4-1.8Mary Rutan Hospitalodium [Moles/volume] in Serum or PlasmaOrdered By: Clemente Fragoso on 67-02-4614Zgsdpm [Moles/Vol]135 mmol/SPyn274-073AnmswftqbLouis Stokes Cleveland Va Medical CenterComment on above:Performed By: #### CMP, ADDONUAPLUS, ESR, CBC, CK, ARLENE, CRP, FE and TIBC #### [facility] [address] #### SSA, SUSANA,URINE, C3, SSB, KAPPA, CH50, SUSANA SERUM, UPE RAND, C4, SPE, PATRICK #### [facility] ,Specific gravity Test strip (U) [Rel density]Ordered By: Clemente Fragoso on 40-54-0829Yhveznwm gravity (U) [Rel density]1.0151.001-1.030Louis [facility] Medical CenterTransferrin [Mass/volume] in Serum or PlasmaOrdered By: Clemente Fragoso on 00-95-3232Iypwdnbayew [Mass/Vol]264 mg/fKBwpgpn072-118PecteqqvxLouis Stokes Cleveland Va Medical CenterComment on above:Performed By: #### CMP, ADDONUAPLUS, ESR, CBC, CK, ARLENE, CRP, FE and TIBC #### [facility] [address] #### SSA, SUSANA,URINE, C3, SSB, KAPPA, CH50, SUSANA SERUM, UPE RAND, C4, SPE, PATRICK #### [facility] ,Urea nitrogen [Mass/volume] in Serum or PlasmaOrdered By: Clemente Fragoso on 24-15-2436Hnob nitrogen [Mass/Vol]14 mg/dLNormal12-27Louis [facility] Medical CenterComment on above:Performed By: #### CMP, ADDONUAPLUS, ESR, CBC, CK, ARLENE, CRP, FE and TIBC #### [facility] [address] [place] [address] [place] #### SSA, SUSANA,URINE, C3, SSB, KAPPA, CH50, SUSANA SERUM, UPE RAND, C4, SPE, PATRICK #### [facility] ,Urine alpha 1 globulin/total protein by electrophoresisOrdered By: Clemente Fragoso on 00-60-2442Rlejh 1 globulin Elph (U) [Mass fraction]2.4 %.[facility] Medical CenterUrine alpha 2 globulin/total protein ratio by electrophoresisOrdered By: Clemente Fragoso on 18-72-2124Wezjt 2 globulin Elph (U) [Mass fraction]13.7 %.[facility] Medical CenterUrine appearanceOrdered By: Clemente Fragoso on 60-88-6692Noagwmifjr (U)ClearNormalClearLouis Stokes Cleveland Va Medical CenterComment on above:Order Comment: Name Collection Type:: Clean- Voided MidstreamPerformed By: #### CMP, ADDONUAPLUS, ESR, CBC, CK, ARLENE, CRP, FE and TIBC #### [facility] [address] [place] [address] [place] #### SSA, SUSANA,URINE, C3, SSB, KAPPA, CH50, SUSANA SERUM, UPE RAND, C4, SPE, PATRICK #### [facility] ,Urine beta globulin measurement by electrophoresis (mass/volume)Ordered By: Clemente Fragoso on 20-80-0574Rpdj globulin Elph (U) [Mass/Vol]29.3 %.[facility] Medical CenterUrobilinogen Test strip (U) [Mass/Vol]Ordered By: Clemente Fragoso on 79-83-2627Xszsvsfvddtb (U) [Mass/Vol]Normal mg/dLNormalLouis Stokes Cleveland Va Medical CenterpH of Urine by Test stripOrdered By: Clemente Fragoso on 06-67-0058fF (U)5.5 [pH]Normal5.0-9.0[facility] Medical CenterComment on above:Order Comment: Name Collection Type:: Clean-Voided MidstreamPerformed By: #### CMP, ADDONUAPLUS, ESR, CBC, CK, ARLENE, CRP, FE and TIBC #### [facility] [address] #### SSA, SUSANA,URINE, C3, SSB, KAPPA, CH50, SUSANA SERUM, UPE RAND, C4, SPE, PATRICK #### [facility] ,XR HIP RT 2-3 VIEWS W OR WO PELVISon 02-34-3259SA HIP RT 2-3 VIEWS W OR WO PELVISXR HIP RT 2-3 VIEWS W OR WO [...] by Suad Covarrubias MD on 08/25/2023 8:26 PMNormalProSelect Medical Trihealth Rehabilitation HospitalCOMPLETE BLOOD COUNTon 25-91-1789Lbrmvmrwolc distribution width (RBC) [Ratio]20.3 %High11.5-15.0CentervilleComment on above:Performed By: #### 87246-0, 1987-, 02839-1 #### [facility] ([id number]) [address] [place], [place] [address]Twtkbxhvnx (Bld) [Volume fraction]32.3 %Vuo82-44ZvlEgxwwm Jones HospitalComment on above:Performed By: #### 29308-3, 1987-10, #### [facility] ([id number]) [address], [address] [place], [place] [address]Edbjlnjdxx (Bld) [Mass/Vol]10.5 g/dLLow13.0-17.0ProMedica Jones HospitalComment on above:Performed By: #### 78266-9, 1987-10, #### [facility] ([id number]) [address], [address] [place], [place] [address]AXB (RBC) [Entitic mass]28.2 kwFlkxaw83-21YcxHjclra Jones HospitalComment on above:Performed By: #### 13770-2, 1987-10, #### [facility] ([id number]) [address], [address] [place], [place] [address]ZMZX (RBC) [Mass/Vol]32.5 g/lPVdlaub51-80LhpYkuwsi Jones HospitalComment on above:Performed By: #### 76364-7, 1987-10, #### [facility] ([id number]) [address], [address] [place], [place] [address]BNO (RBC) [Entitic vol]87 kUMtafgz17-482AqzUtebzr Jones HospitalComment on above:Performed By: #### 94283-0, 1987-10, #### [facility] ([id number]) [address], [address] [place], [place] [address]Cffhlpur mean volume (Bld) [Entitic vol]9.7 fLNormal7-12 [facility] Jones HospitalComment on above:Performed By: #### 38080-8, 1987-10, #### [facility] ([id number]) [address], [address] [place], [place] [address]Hgjvofwdy (Bld) [#/Vol]320 10*3/uUKfqaeb153-496OwlWdhobr Jones HospitalComment on above:Performed By: #### 79036-4, 1987-10, 32392-6 #### [facility] ([id number]) [address], [address] [place], [place] [address]ZQZ COUNT3.73 X10E12/LLow4.10-5.70[facility] Comment on above:Performed By: #### 28374-5, 1987-10, 77988-5 #### [facility] ([id number]) [address], [address] [place], [place] [address]QYT (Bld) [#/Vol]9.0 10*3/uLNormal4.0-11.0ProMedica Jones HospitalComment on above:Performed By: #### 14973-2, 1987-10, 62009-4 #### [facility] ([id number]) [address], [address] [place] [address]WCSAVQBQUHWHY METABOLIC PANELon 97-46-9155Vpdwruu [Mass/Vol]3.2 g/dLNormal3.2-5.3Pro[facility] Jones HospitalComment on above:Performed By: #### 76263-2, 1987-10, 24399-1 #### [facility] ([id number]) [address], [address] [place], [place] [address]ELV [Catalytic activity/Vol]80 U/CNeuqom60-527HpeMsiokp Jones HospitalComment on above:Performed By: #### 01459-4, 1987-10, 56634-4 #### [facility] ([id number]) [address], [address] [place], [place] [address]XGE [Catalytic activity/Vol]15 U/LNormal0-40Pro[facility] Jones HospitalComment on above:Performed By: #### 38182-2, 1987-10, 53788-9 #### [facility] ([id number]) [address], [address] [place], [place] [address]Kmbmh gap [Moles/Vol]7 mmol/LNormal5-15[facility] Comment on above:Performed By: #### 02021-6, 1987-10, #### [facility] ([id number]) [address], [address] [place], [place] [address]KKS [Catalytic activity/Vol]22 U/LNormal0-41Pro[facility] Jones HospitalComment on above:Performed By: #### 95377-2, 1987-10, #### [facility] ([id number]) [address], [address] [place], [place] [address]Wksxlmlao [Mass/Vol]0.8 mg/dLNormal0.3-1.2Pro[facility]ica Jones HospitalComment on above:Performed By: #### 90553-7, 1987-10, #### [facility] ([id number]) [address], [address] [place], [place] [address]Uwwhqxd [Mass/Vol]10.1 mg/dLNormal8.5-10.5Pro[facility] Jones HospitalComment on above:Performed By: #### 94308-3, 1987-10, 20795-9 #### [facility] ([id number]) [address], [address] [place], [place] [address]Qumttmtb [Moles/Vol]98 mmol/QLnfqaq64-071TtzRtscep Jones HospitalComment on above:Performed By: #### 44093-7, 1987-10, 87877-9 #### [facility] ([id number]) [address], [address] [place], [place] [address]SZ3 [Moles/Vol]34 mmol/HSljd76-76BbjMpkoawMedina Hospital Comment on above:Performed By: #### 29526-5, 1987-10, 80271-9 #### [facility] ([id number]) [address], [address] [place], [place] [address]Eyhtqfwhou [Mass/Vol]0.62 mg/dLNormal0.60-1.30ProSelect Medical Trihealth Rehabilitation HospitalComment on above:Result Comment: METHOD TRACEABLE TO IDMS STANDARD Performed By: #### 34517-1, 1987-10, 74067-7 #### [facility] ([id number]) [address], [address] [address]nIFC (CKD-EPI) NON-RACE DEPENDENT>90Normal>59ProSelect Medical Trihealth Rehabilitation HospitalComment on above:Result Comment: Reported eGFR is based on the CKD-EPI 2020 equation that does not use a race coefficient.Performed By: #### 57203-2, 1987-10, #### [facility] ([id number]) [address], [address] [place], [place] [address]Cprjosv [Mass/Vol]105 mg/hVKwci28-32HjmZvkrauCenterville Comment on above:Performed By: #### 64926-9, 1987-10, #### [facility] ([id number]) [address], [address] [place], [place] [address]Drdzzggya [Moles/Vol]4.2 mmol/LNormal3.5-5.0ProSelect Medical Trihealth Rehabilitation HospitalComment on above:Performed By: #### 75549-3, 1987-10, 40301-6 #### [facility] ([id number]) [address], [address] [place], [place] [address]Mdhwiqt [Mass/Vol]6.6 g/dLNormal6.0-8.0[facility] Comment on above:Performed By: #### 45164-8, 1987-10, 57381-4 #### [facility] ([id number]) [address], [address] [place], [place] [address]Wlnfwz [Moles/Vol]139 mmol/OAztqgs053-775PjySecjpe [place] HospitalComment on above:Performed By: #### 31214-9, 1987-10, 79742-2 #### [facility] ([id number]) [address], [address] [place], [place] [address]Yttc nitrogen [Mass/Vol]20 mg/dLNormal5-27Pro[facility] HospitalComment on above:Performed By: #### 08317-4, 1987-10, 32330-1 #### [facility] ([id number]) [address], [address] [place], [place] [address]DMYAPYZWNst 73-68-1489Wclslrfyq [Mass/Vol]2.0 mg/dLNormal1.8-2.6 [facility] HospitalComment on above:Performed By: #### 95612-4, 1987-10, 73406-4 #### [facility] ([id number]) [address], [address] [place], [place] [address]IXXLJXFS BLOOD COUNTon 70-38-1579Qamczpqwbbr distribution width (RBC) [Ratio]19.3 %High11.5-15.0Pro[facility]y[place] HospitalComment on above: Performed By: #### 55940-4, 1987-10, 37114-7 #### [facility] ([id number]) [address], [address] [place], [place] [address]Dsnjtpkdvq (Bld) [Volume fraction]30.1 %Bzq81-52UlsRistte [place] HospitalComment on above:Performed By: #### 72875-4, 1987-10, 05545-5 #### [facility] ([id number]) [address], [address] [place], [place] [address]Tobdsqvash (Bld) [Mass/Vol]9.9 g/dLLow13.0-17.0ProMedica Jones HospitalComment on above:Performed By: #### 62994-2, 1987-10, 69716-5 #### [facility] ([id number]) [address], [address] [place], [place] [address]PUF (RBC) [Entitic mass]28.0 vjRfsmrm78-32KtjQwnuik Jones HospitalComment on above:Performed By: #### 00431-1, 1987-10, 83844-0 #### [facility] ([id number]) [address], [address] [place], [place] [address]FLLB (RBC) [Mass/Vol]32.9 g/gQBfryjj03-35DtfLnrvun Jones HospitalComment on above:Performed By: #### 19195-0, 1987-10, 91273-3 #### [facility] ([id number]) [address], [address] [place], [place] [address]QOX (RBC) [Entitic vol]85 uKEcmwnf34-076FggRtwoij Jones HospitalComment on above:Performed By: #### 64902-5, 1987-10, 11138-5 #### [facility] ([id number]) [address], [address] [place], [place] [address]Rswoqfgz mean volume (Bld) [Entitic vol]9.9 fLNormal7-12 [facility] Jones HospitalComment on above:Performed By: #### 36228-4, 1987-10, #### [facility] ([id number]) [address], [address] [place], [place] [address]Hobrdhxks (Bld) [#/Vol]341 10*3/fIFulbuc893-592LwqQrfndw Jones HospitalComment on above:Performed By: #### 55538-5, 1987-10, 47928-1 #### [facility] ([id number]) [address], [address] [place] [address]HDB COUNT3.53 X10E12/LLow4.10-5.70[facility] Comment on above:Performed By: #### 64319-5, 1987-10, 48143-3 #### [facility] ([id number]) [address], [address] [place], [place] [address]ZKA (Bld) [#/Vol]9.7 10*3/uLNormal4.0-11.0[facility] Jones HospitalComment on above:Performed By: #### 57326-1, 1987-10, 07291-2 #### [facility] ([id number]) [address], [address] [place], [place] [address]TMJKACUEGWIFO METABOLIC PANELon 09-49-1566Gfstrdj [Mass/Vol]3.3 g/dLNormal3.2-5.3Pro[facility] Jones HospitalComment on above:Performed By: #### 80479-2, 1987-10, 13956-3 #### [facility] ([id number]) [address], [address] [place], [place] [address]VXC [Catalytic activity/Vol]79 U/XWjdccf53-247YdeExhdbv Jones HospitalComment on above:Performed By: #### 85666-4, 1987-10, 82264-6 #### [facility] ([id number]) [address], [address] [place], [place] [address]XLG [Catalytic activity/Vol]12 U/LNormal0-40[facility] Jones HospitalComment on above:Performed By: #### 01373-6, 1987-10, 47075-1 #### [facility] ([id number]) [address], [address] [place], [place] [address]Umvuh gap [Moles/Vol]5 mmol/LNormal5-15[place] Comment on above:Performed By: #### 94237-8, 1987-10, #### [facility] ([id number]) [address], [address] [place], [place] [address]QBB [Catalytic activity/Vol]32 U/LNormal0-41ProFayette County Memorial Hospital HospitalComment on above:Performed By: #### 71141-0, 1987-10, 03728-8 #### [facility] ([id number]) [address], [address] [place], [place] [address]Vweosydbm [Mass/Vol]0.8 mg/dLNormal0.3-1.2ProMedSelect Medical Specialty Hospital - [facility] [place] HospitalComment on above:Performed By: #### 56264-5, 1987-10, #### [facility] ([id number]) [address], [address] [place], [place] [address]Tjprmhs [Mass/Vol]10.4 mg/dLNormal8.5-10.5ProMedSelect Medical Specialty Hospital - [facility] [place] HospitalComment on above:Performed By: #### 17475-5, 1987-10, #### [facility] ([id number]) [address], [address] [place], [place] [address]Ljhcorfk [Moles/Vol]98 mmol/HNfhidw97-712XnqElyhzs [place] HospitalComment on above:Performed By: #### 58296-7, 1987-10, #### [facility] ([id number]) [address], [address] [place], [place] [address]GN5 [Moles/Vol]34 mmol/YIfwm46-35OznDibndsMedina Hospital Comment on above:Performed By: #### 95355-3, 1987-10, #### [facility] ([id number]) [address], [address] [place], [place] [address]Ohhujgayuq [Mass/Vol]0.56 mg/dLLow0.60-1.30ProSelect Medical Trihealth Rehabilitation HospitalComment on above:Result Comment: METHOD TRACEABLE TO IDMS STANDARD Performed By: #### 63528-3, 1987-10, 95541-0 #### [facility] ([id number]) [address], [address] [place], [place] [address]cDVB (CKD-EPI) NON-RACE DEPENDENT>90Normal>59ProSelect Medical Trihealth Rehabilitation HospitalComment on above:Result Comment: Reported eGFR is based on the CKD-EPI 2020 equation that does not use a race coefficient.Performed By: #### 28347-9, 1987-10, 05318-3 #### [facility] ([id number]) [address], [address] [place], [place] [address]Oqdswhz [Mass/Vol]83 mg/cOJdsifw92-71FosFkikda [facility] Comment on above:Performed By: #### 14761-8, 1987-10, 17860-5 #### [facility] ([id number]) [address], [address] [place], [place] [address]Qodkxpmfr [Moles/Vol]4.5 mmol/LNormal3.5-5.0ProSelect Medical Trihealth Rehabilitation HospitalComment on above:Performed By: #### 20952-4, 1987-10, 45858-5 #### [facility] ([id number]) [address], [address] [place], [place] [address]Vwuwjba [Mass/Vol]6.5 g/dLNormal6.0-8.0Pro[facility] Comment on above:Performed By: #### 51135-2, 1987-10, 13043-6 #### [facility] ([id number]) [address], [address] [place], [place] [address]Etdwey [Moles/Vol]137 mmol/PNoeoff463-415DwnRngrux Jones HospitalComment on above:Performed By: #### 65067-5, 1987-10, 09344-5 #### [facility] ([id number]) [address], [address] [place], [place] [address]Jbat nitrogen [Mass/Vol]14 mg/dLNormal5-27Pro[facility] Jones HospitalComment on above:Performed By: #### 09256-7, 1987-10, 28783-1 #### [facility] ([id number]) [address], [address] [place] [address]RHFCUZPVZix 35-33-1102Auncllgvb [Mass/Vol]2.2 mg/dLNormal1.8-2.6 [facility] Jones HospitalComment on above:Performed By: #### 92522-7, 1987-10, 00326-5 #### [facility] ([id number]) [address], [address] [place], [place] [address]Qwnhxojyj [Mass/Vol]1.7 mg/dLLow1.8-2.6[facility] Comment on above:Performed By: #### 42727-4, 1987-10, 81544-4 #### [facility] ([id number]) [address], [address] [place], [place] [address]OUVWZWbb 08-36-3864Djhnbd [Moles/Vol]139 mmol/ULhbsil714-918 [facility] Joens HospitalComment on above:Performed By: #### 04226-4, 1987-10, 44383-0 #### [facility] ([id number]) [address], [address] [place], [place] [address]Jlegjq [Moles/Vol]137 mmol/RMzddoe466-936XgyLsisns Jones HospitalComment on above:Performed By: #### 83779-3, 1987-10, 64722-8 #### [facility] ([id number]) [address], [address] [place], [place] [address]Qkwenf [Moles/Vol]140 mmol/HEkqxhv765-103CfwKaflsk [facility] HospitalComment on above:Performed By: #### 86223-3, 1987-10, 12340-2 #### [facility] ([id number]) [address], [address] [place] [address]RRJMKWYL BLOOD COUNTon 70-44-9247Isoyjzfthbd distribution width (RBC) [Ratio]18.5 %High11.5-15.0[facility] Jones HospitalComment on above: Performed By: #### 66509-9, 1987-10, 51398-8 #### [facility] ([id number]) [address], [address] [place] [address]Cfopjlfyvq (Bld) [Volume fraction]24.8 %Rsm71-09RjvSpzfzk [facility] HospitalComment on above:Performed By: #### 77795-4, 1987-10, 92597-3 #### [facility] ([id number]) [address], [address] [place], [place] [address]Iuutfvnrgl (Bld) [Mass/Vol]8.3 g/dLLow13.0-17.0[facility] HospitalComment on above:Performed By: #### 34821-6, 1987-10, #### [facility] ([id number]) [address], [address] [place], [place] [address]UWL (RBC) [Entitic mass]28.6 fwNgmxqr93-73LnfQtbzwe Jones HospitalComment on above:Performed By: #### 96979-8, 1987-10, 97128-1 #### [facility] ([id number]) [address], [address] [place], [place] [address]JHBI (RBC) [Mass/Vol]33.7 g/lBGbkkqk09-74EqcSfujty [facility] HospitalComment on above:Performed By: #### 26162-5, 1987-10, #### [facility] ([id number]) [address], [address] [place], [place] [address]SRC (RBC) [Entitic vol]85 fDRodknh75-060AbpZckxkx [facility] HospitalComment on above:Performed By: #### 70238-3, 1987-10, 30293-5 #### [facility] ([id number]) [address], [address] [place], [place] [address]Ergtlzqx mean volume (Bld) [Entitic vol]10.1 fLNormal7-12 [facility] Jones HospitalComment on above:Performed By: #### 47661-3, 1987-10, 05717-5 #### [facility] ([id number]) [address], [address] [place], [place] [address]Uggnfkxyu (Bld) [#/Vol]270 10*3/aELpolcs384-870EqkFqndbg Jones HospitalComment on above:Performed By: #### 93464-4, 1987-10, #### [facility] ([id number]) [address], [address] [place], [place] [address]PRA COUNT2.91 X10E12/LLow4.10-5.70[facility] Comment on above:Performed By: #### 02956-6, 1987-10, 97507-2 #### [facility] ([id number]) [address], [address] [place], [place] [address]QVT (Bld) [#/Vol]8.9 10*3/uLNormal4.0-11.0[facility] Jones HospitalComment on above:Performed By: #### 90391-7, 1987-10, #### [facility] [facility] ([id number]) [address], [address] [place], [place] [address]FMXQGPFEGQQTY METABOLIC PANELon 98-97-2478Wanuput [Mass/Vol]3.0 g/dLLow3.2-5.3ProMedica Jones HospitalComment on above:Performed By: #### 72090-3, 1987-10, 38404-3 #### [facility] ([id number]) [address], [address] [place], [place] [address]KQX [Catalytic activity/Vol]70 U/MZkivjf44-363NlhZofwvc Jones HospitalComment on above:Performed By: #### 76162-2, 1987-10, 12153-7 #### [facility] ([id number]) [address], [address] [place], [place] [address]MIH [Catalytic activity/Vol]8 U/LNormal0-40ProMedica Jones HospitalComment on above:Performed By: #### 91948-0, 1987-10, 47517-1 #### [facility] ([id number]) [address], [address] [place], [place] [address]Adgpz gap [Moles/Vol]5 mmol/LNormal5-15[facility] Comment on above:Performed By: #### 86750-0, 1987-10, 80804-6 #### [facility] ([id number]) [address], [address] [place], [place] [address]OTT [Catalytic activity/Vol]16 U/LNormal0-41ProMedica Jones HospitalComment on above:Performed By: #### 70944-0, 1987-10, 42907-0 #### [facility] ([id number]) [address], [address] [place], [place] [address]Pwjufxkks [Mass/Vol]0.5 mg/dLNormal0.3-1.2ProMedica Jones HospitalComment on above:Performed By: #### 97828-1, 1987-10, #### [facility] ([id number]) [address], [address] [place], [place] [address]Ztpxkfs [Mass/Vol]9.8 mg/dLNormal8.5-10.5PMedina HospitalComment on above:Performed By: #### 52026-6, 1987-10, #### [facility] ([id number]) [address], [address] [place], [place] [address]Aqsbejkh [Moles/Vol]102 mmol/YSukrdf20-860VsgLucejp [place] HospitalComment on above:Performed By: #### 27855-8, 1987-10, #### [facility] ([id number]) [address], [address] [place], [place] [address]JH2 [Moles/Vol]32 mmol/JTcgqbj42-80HvyTtzuuc [facility] Comment on above:Performed By: #### 39083-1, 1987-10, #### [facility] ([id number]) [address], [address] [place], [place] [address]Snltyfjbej [Mass/Vol]0.54 mg/dLLow0.60-1.30ProSelect Medical Trihealth Rehabilitation HospitalComment on above:Result Comment: METHOD TRACEABLE TO IDMS STANDARD Performed By: #### 24012-7, 1987-10, #### [facility] ([id number]) [address], [address] [place], [place] [address]dTES (CKD-EPI) NON-RACE DEPENDENT>90Normal>59ProF[facility] Hospital HospitalComment on above:Result Comment: Reported eGFR is based on the CKD-EPI 2020 equation that does not use a race coefficient.Performed By: #### 48777-2, 1987-10, #### [facility] ([id number]) [address], [address] [place] [address]Loblmgc [Mass/Vol]110 mg/fAWgce13-39HsyDsfijaSelect Medical Trihealth Rehabilitation Hospital Comment on above:Performed By: #### 19491-9, 1987-10, 66181-8 #### [facility] ([id number]) [address], [address] [place], [place] [address]Aohbwrcrv [Moles/Vol]4.3 mmol/LNormal3.5-5.0ProNewark Hospitalca [place] HospitalComment on above:Performed By: #### 03482-5, 1987-10, 84843-5 #### [facility] ([id number]) [address], [address] [place] [address]Urcmjve [Mass/Vol]5.8 g/dLLow6.0-8.0[place] Comment on above:Performed By: #### 75037-8, 1987-10, 71726-1 #### [facility] ([id number]) [address], [address] [place], [place] [address]Oqqzmf [Moles/Vol]139 mmol/EUqpqux253-873OipObxwag [place] HospitalComment on above:Performed By: #### 02523-8, 1987-10, 34296-3 #### [facility] ([id number]) [address], [address] [place], [place] [address]Gfbe nitrogen [Mass/Vol]16 mg/dLNormal5-27Pro[facility] HospitalComment on above:Performed By: #### 76342-1, 1987-10, 87705-2 #### [facility] ([id number]) [address], [address] [place] [address]OIAFTUHPHhq 39-00-6228Xzjfskmyh [Mass/Vol]1.9 mg/dLNormal1.8-2.6 [facility] Jones HospitalComment on above:Performed By: #### 37736-1, 1987-10, 74945-8 #### [facility] ([id number]) [address], [address] [place] [address]EMKEODey 12-43-0272Mprixw [Moles/Vol]140 mmol/OOjlphe518-312 [facility] Jones HospitalComment on above:Performed By: #### 40106-0, 1987-10, 70465-3 #### [facility] ([id number]) [address], [address] [place] [address]Bygvpx [Moles/Vol]143 mmol/YTfoiwg033-862TgfQlzxel Jones HospitalComment on above:Performed By: #### 61602-3, 1987-10, 00078-5 #### [facility] ([id number]) [address], [address] [place] [address]Pfhjzw [Moles/Vol]140 mmol/ILkjixg562-804RcnHoziiz Jones HospitalComment on above:Performed By: #### 70346-5, 1987-10, 73979-6 #### [facility] ([id number]) [address], [address] [place] [address]LWZSRFIR BLOOD COUNTon 43-79-4768Nwfpkwdpjjj distribution width (RBC) [Ratio]18.6 %High11.5-15.0ProMedica Jones HospitalComment on above: Performed By: #### CBC, CMP, #### [facility] ([id number]) [address], [address] [place] [address]Ofxktkkzwt (Bld) [Volume fraction]26.3 %Dfj09-68VpcAxxwsv Jones HospitalComment on above:Performed By: #### CBC, CMP, #### [facility] ([id number]) [address], [address] [place] [address]Uaeouloqcg (Bld) [Mass/Vol]8.7 g/dLLow13.0-17.0ProMedica Jones HospitalComment on above:Performed By: #### CBC, CMP, #### [facility] ([id number]) [address], [address] [place] [address]KHA (RBC) [Entitic mass]28.0 grMkjoxc91-72MgcPbibhj Jones HospitalComment on above:Performed By: #### CBC, CMP, #### [facility] ([id number]) [address], [address] [place], [place] [address]GQPV (RBC) [Mass/Vol]33.0 g/hYMefadj58-20DtfPisewa Jones HospitalComment on above:Performed By: #### CBC, CMP, #### [facility] ([id number]) [address], [address] [place], [place] [address]LBP (RBC) [Entitic vol]85 nAWwrznx59-839PmvVjmylo Jones HospitalComment on above:Performed By: #### CBC, CMP, #### [facility] ([id number]) [address], [address] [place] [address]Vrpbetfg mean volume (Bld) [Entitic vol]10.1 fLNormal7-12 [facility] Jones HospitalComment on above:Performed By: #### CBC, CMP, #### [facility] ([id number]) [address], [address] [place] [address]Ykjqxafka (Bld) [#/Vol]234 10*3/dQQczjez714-525PzaBdsudh Jones HospitalComment on above:Performed By: #### CBC, CMP, #### [facility] ([id number]) [address], [address] [place], [place] [address]OFA COUNT3.10 X10E12/LLow4.10-5.70[facility] Hospitalca [facility] Comment on above:Performed By: #### CEDRIC FRANK, #### [facility] ([id number]) [address], [address] [place], [place] [address]ESO (Bld) [#/Vol]7.4 10*3/uLNormal4.0-11.0Pro[facility] Jones HospitalComment on above:Performed By: #### ZAC CMP, #### [facility] ([id number]) [address], [address] [place], [place] [address]OPIUBQXTBBHTZ METABOLIC PANELon 00-84-5797Kwrhxye [Mass/Vol]3.2 g/dLNormal3.2-5.3[facility] [place] HospitalComment on above:Performed By: #### CEDRIC FRANK, #### [facility] ([id number]) [address], [address] [place], [place] [address]SBB [Catalytic activity/Vol]70 U/KHkzmsv26-443EozEnewwa Jones HospitalComment on above:Performed By: #### ZAC CMP, 33985-4 #### [facility] ([id number]) [address], [address] [place], [place] [address]SPJ [Catalytic activity/Vol]10 U/LNormal0-40[facility] Jones HospitalComment on above:Performed By: #### ZAC, CMP, 76614-1 #### [facility] ([id number]) [address], [address] [place], [place] [address]Bvyoj gap [Moles/Vol]7 mmol/LNormal5-15[facility] Hospital Comment on above:Performed By: #### ZAC, CMP, #### [facility] ([id number]) [address], [address] [place], [place] [address]NMK [Catalytic activity/Vol]17 U/LNormal0-41[facility] Jones HospitalComment on above:Performed By: #### CEDRIC FRANK, #### [facility] ([id number]) [address], [address] [place], [place] [address]Olfetshmh [Mass/Vol]0.6 mg/dLNormal0.3-1.2ProMedSelect [facility] [place] HospitalComment on above:Performed By: #### CEDRIC FRANK, #### [facility] ([id number]) [address], [address] [place], [place] [address]Nkxbcuf [Mass/Vol]9.3 mg/dLNormal8.5-10.5ProMedSelect [facility] Special[facility] - [facility] [place] HospitalComment on above:Performed By: #### CEDRIC FRANK, #### [facility] ([id number]) [address], [address] [place], [place] [address]Sviwygnq [Moles/Vol]104 mmol/VTzbhwk72-685ZtqDirbnd Jones HospitalComment on above:Performed By: #### CEDRIC FRANK, #### [facility] ([id number]) [address], [address] [place], [place] [address]CI0 [Moles/Vol]32 mmol/WDtualv28-62StfCcbqob [facility] Comment on above:Performed By: #### CEDRIC FRANK, #### [facility] ([id number]) [address], [address] [place], [place] [address]Cfkssuuwkn [Mass/Vol]0.59 mg/dLLow0.60-1.30Pro[facility] Hospitalca Jones HospitalComment on above:Result Comment: METHOD TRACEABLE TO IDMS STANDARD Performed By: #### CEDRIC FRANK, #### [facility] ([id number]) [address], [address] [place], [place] [address]wQTZ (CKD-EPI) NON-RACE DEPENDENT>90Normal>59ProMedica Jones HospitalComment on above:Result Comment: Reported eGFR is based on the CKD-EPI 2020 equation that does not use a race coefficient.Performed By: #### CEDRIC FRANK, #### [facility] ([id number]) [address], [address] [place], [place] [address]Kklecae [Mass/Vol]156 mg/xUFxoo55-74YbmYgoznjSelect Medical Trihealth Rehabilitation Hospital Comment on above:Performed By: #### CEDRIC FRANK, #### [facility] ([id number]) [address], [facility] [address] [place], [place] [address]Yjgbkfvgq [Moles/Vol]3.7 mmol/LNormal3.5-5.0ProSelect Medical Trihealth Rehabilitation HospitalComment on above:Performed By: #### CEDRIC FRANK, #### [facility] ([id number]) [address], [address] [place], [place] [address]Ebovtng [Mass/Vol]6.0 g/dLNormal6.0-8.0[place] Comment on above:Performed By: #### CEDRIC FRANK, #### [facility] ([id number]) [address], [address] [place], [place] [address]Rkcccu [Moles/Vol]143 mmol/WAiktug534-176YqzFdfgvf [place] HospitalComment on above:Performed By: #### CEDRIC FRANK, #### [facility] ([id number]) [address], [address] [place], [place] [address]Mbko nitrogen [Mass/Vol]14 mg/dLNormal5-27ProSelect [facility] Tri[facility] Rehabilitation HospitalComment on above:Performed By: #### CEDRIC FRANK, #### [facility] ([id number]) [address], [address] [place], [place] [address]EY SWALLOW MOTILITY FUNCTIONon 55-62-2204HV SWALLOW MOTILITY FUNCTIONFL SWALLOW MOTILITY FUNCTION FL SWALLOW MOTILITY FUNCTION [...] Manolo Mari MD on 08/08/2023 4:47 PM I, Farede Phillip MD have personally reviewed the image(s) and agree with and/or edited the report Finalized by Fareed Phillip MD on 08/08/2023 4:54 PMNormalProSelect Medical Trihealth Rehabilitation HospitalMAGNESIUMon 82-70-4918Tlwhgqxho [Mass/Vol]2.2 mg/dLNormal1.8-2.6 [place]ervilleComment on above:Performed By: #### 20001-1, 1987-10, 69273-0 #### [facility] ([id number]) [address] [place], [place] [address]Ynudtaxow [Mass/Vol]1.6 mg/dLLow1.8-2.6[place] Comment on above:Performed By: #### CBC, [facility], [address]-9 #### [facility] ([id number]) [address] [place], [place] [address]BNEEGGCEEvy 92-00-3192Moulzfxhn [Moles/Vol]3.7 mmol/LNormal 3.5-5.0ProSelect Medical Tri[facility] Rehabilitation HospitalComment on above:Performed By: #### 00167-9, 1987-10, 52034-4 #### [facility] ([id number]) [address], [address] [place], [place] [address]VJEMYSja 15-05-0252Kmafvj [Moles/Vol]143 mmol/PRmsjgq185-341 [facility] [place] HospitalComment on above:Performed By: #### 19319-3, 1987-, 53360-4 #### [facility] ([id number]) [address], [address] [place], [place] [address]Urmsnp [Moles/Vol]142 mmol/KHpiatg373-193MwuRzhqlw [place] HospitalComment on above:Performed By: #### CBC, CMP, #### [facility] ([id number]) [address], [address] [place], [place] [address]RFPHCMWA BLOOD GASon 38-58-9207KLHUD'S TESTNormalProNewark Hospitalca [place] HospitalComment on above:Performed By: #### ZAC CMP, #### [facility] ([id number]) [address], [address] [place], [place] [address]NMDQ,DEFICIT1.0 MMOL/LNormal0.0-2.0Pro[facility] Comment on above:Performed By: #### ZAC, CMP, #### [facility] ([id number]) [address], [address] [place], [place] [address]Hwki gbazgmpcsul89.6 [degF]Diprym25.0[place] Comment on above:Performed By: #### ZAC, CMP, #### [facility] ([id number]) [address], [address] [place], [place] [address]SIH3 (Bld) [Moles/Vol]24.6 mmol/ZZhhacx23-92AvhIsrgci [place] HospitalComment on above:Performed By: #### CBC, CMP, #### [facility] ([id number]) [address], [address] [place], [place] [address]IWIG. O2 CONC.40 %NormalProMedica [place] HospitalComment on above:Performed By: #### CBC, CMP, #### [facility] ([id number]) [address], [address] [place], [place] [address]Vwcgej (Bld) [Partial pressure]103 mm[Hg]Znvf49-446IyjMdkwho Jones HospitalComment on above:Performed By: #### CBC, CMP, #### [facility] ([id number]) [address] [place], [place] [address]Wdtubj saturation in Blood97.0 %Normal>90Pro[facility]ica Jones HospitalComment on above:Performed By: #### CBC, CMP, #### [facility] ([id number]) [address] [place], [place] [address]LSLANK SOURCENPPVNormalProMedica Jones HospitalComment on above:Performed By: #### CBC, CMP, #### [facility] ([id number]) [address], [address] [place], [place] [address]GVK[address].3 UJPDCvqc42-62LttCzjghd [facility] HospitalComment on above: Performed By: #### CBC, CMP, #### [facility] ([id number]) [address], [address] [place], [place] [address]aO (Bld)7.324 [pH]Low7.350-7.450Pro[facility]ica Jones HospitalComment on above:Performed By: #### CBC, CMP, #### [facility] ([id number]) [address], [address] [place], [place] [address]HEKHBN SITEALineNormalProMedica Jones HospitalComment on above: Performed By: #### CBC, CMP, #### [facility] ([id number]) [address], [address] [place], [place] [address]XSYNKU TYPEARTERIALNormalProMedica Jones HospitalComment on above:Performed By: #### ZAC CMP, #### [facility] ([id number]) [address] [place], [place] [address]RTFUH'S TESTPassNormalProMedica Jones HospitalComment on above: Performed By: #### ZAC CMP, #### [facility] ([id number]) [address], [address] [place], [place] [address]Cdut excess Calc (Bld) [Moles/Vol]0.0 mmol/LNormal0.0-2.0 [facility] Jones HospitalComment on above:Performed By: #### ZAC CMP, #### [facility] ([id number]) [address], [address] [place], [place] [address]Pxqa cpdetiaomub75.6 [degF]Fmnted16.0[facility] Comment on above:Performed By: #### ZAC CMP, #### [facility] ([id number]) [address] [place], [place] [address]HVK4 (Bld) [Moles/Vol]24.4 mmol/XWcafne40-24EvvYadgje [place] HospitalComment on above:Performed By: #### ZAC CMP, #### [facility] ([id number]) [address] [place], [place] [address]ODTM. O2 CONC.28 %NormalProMedica Jones HospitalComment on above:Performed By: #### ZAC, CMP, #### [facility] ([id number]) [address] [place], [place] [address]Hblxzi (Bld) [Partial pressure]80 mm[Hg]Fuqbxf38-352JdzElzxdr [facility] HospitalComment on above:Performed By: #### ZAC, CMP, #### [facility] ([id number]) [address], [address] [place], [place] [address]Nwmnep saturation in Blood96.0 %Normal>90[facility] [place] HospitalComment on above:Performed By: #### CBC, CMP, 00178-5 #### [facility] ([id number]) [address], [address] [place], [place] [address]ZNGFDB SOURCENCNormalProMedica [place] HospitalComment on above: Performed By: #### CBC, CMP, #### [facility] ([id number]) [address] [place], [place] [address]VDJ996.4 IASITvvlwq86-25ZdcRitapm [place] HospitalComment on above:Performed By: #### CBC, CMP, 55862-2 #### [facility] ([id number]) [address] [place], [place] [address]iK (Bld)7.434 [pH]Normal7.350-7.450Pro[facility] Comment on above:Performed By: #### CBC, CMP, #### [facility] ([id number]) [address] [place], [place] [address]SGHDHH SITELRadNormalProMedica [place] HospitalComment on above: Performed By: #### CBC, CMP, #### [facility] ([id number]) [address], [address] [place], [place] [address]ZMEJZW TYPEARTERIALNormalProMedica Jones HospitalComment on above:Performed By: #### CBC, CMP, #### [facility] ([id number]) [address], [address] [place], [place] [address]RXZWDYMU BLOOD COUNTon 38-06-9105Nusmexwyqmn distribution width (RBC) [Ratio]19.0 %High11.5-15.0Pro[facility]ica Jones HospitalComment on above: Performed By: #### CBC, CMP, #### [facility] ([id number]) [address] [place], [place] [address]Epmcznsdxm (Bld) [Volume fraction]25.2 %Vhp04-68ZtmInkntu [facility] HospitalComment on above:Performed By: #### CBC, CMP, #### [facility] ([id number]) [address] [place], [place] [address]Hhkdwrubnl (Bld) [Mass/Vol]8.3 g/dLLow13.0-17.0ProNew[facility] Hospitalca [place] HospitalComment on above:Performed By: #### CBC, CMP, #### [facility] ([id number]) [address], [address] [place], [place] [address]YLM (RBC) [Entitic mass]27.8 ylCvzxbv18-78QmhKlbokk [place] HospitalComment on above:Performed By: #### CBC, CMP, #### [facility] ([id number]) [address] [place], [place] [address]XTXF (RBC) [Mass/Vol]33.0 g/tGPkpxwu43-08ExlYfhnin [facility] HospitalComment on above:Performed By: #### CBC, CMP, #### [facility] ([id number]) [address], [address] [place], [place] [address]ICB (RBC) [Entitic vol]84 fRIdpyvl89-466GyrCscjtm Jones HospitalComment on above:Performed By: #### CBC, CMP, #### [facility] ([id number]) [address], [address] [place], [place] [address]Ppdibxuw mean volume (Bld) [Entitic vol]10.7 fLNormal7-12 [facility] Jones HospitalComment on above:Performed By: #### CBC, CMP, #### [facility] ([id number]) [address], [address] [place], [place] [address]Ylvwlcqjo (Bld) [#/Vol]234 10*3/kIJnwfpw538-170RfdFckpil Jones HospitalComment on above:Performed By: #### ZAC CMP, 54267-2 #### [facility] ([id number]) [address], [address] [place], [place] [address]THL COUNT3.00 X10E12/LLow4.10-5.70[facility] Comment on above:Performed By: #### CEDRIC FRANK, #### [facility] ([id number]) [address], [address] [place], [place] [address]LMD (Bld) [#/Vol]9.1 10*3/uLNormal4.0-11.0[facility] Jones HospitalComment on above:Performed By: #### CEDRIC FRANK, #### [facility] ([id number]) [address], [address] [place], [place] [address]SBXGZYQQVCBFV METABOLIC PANELon 59-44-5402Qjmonxm [Mass/Vol]3.1 g/dLLow3.2-5.3[facility] Jones HospitalComment on above:Performed By: #### CEDRIC FRANK, #### [facility] ([id number]) [address], [address] [place], [place] [address]ZVS [Catalytic activity/Vol]76 U/MGlnxdt09-300WokEjdqwx Jones HospitalComment on above:Performed By: #### ZAC CMP, #### [facility] ([id number]) [address], [address] [place], [place] [address]CDQ [Catalytic activity/Vol]11 U/LNormal0-40[facility] Jones HospitalComment on above:Performed By: #### CEDRIC FRANK, #### [facility] ([id number]) [address], [address] [place], [place] [address]Xtevu gap [Moles/Vol]7 mmol/LNormal5-15[facility] Comment on above:Performed By: #### ZAC CMP, #### [facility] ([id number]) [address], [address] [place], [place] [address]FUB [Catalytic activity/Vol]16 U/LNormal0-41Pro[facility] Jones HospitalComment on above:Performed By: #### ZAC CMP, #### [facility] ([id number]) [address], [address] [place], [place] [address]Wjbsfaxpw [Mass/Vol]1.1 mg/dLNormal0.3-1.2[facility] Jones HospitalComment on above:Performed By: #### CEDRIC FRANK, #### [facility] ([id number]) [address], [address] [place], [place] [address]Gcqwukb [Mass/Vol]9.6 mg/dLNormal8.5-10.5[facility] Jones HospitalComment on above:Performed By: #### ZAC CMP, #### [facility] ([id number]) [address], [address] [place], [place] [address]Phcdtfnt [Moles/Vol]112 mmol/FFagm40-724KvrUofhkm Jones HospitalComment on above:Performed By: #### ZAC, CMP, #### [facility] ([id number]) [address], [address] [place], [place] [address]WK6 [Moles/Vol]29 mmol/QGoixwt85-55OjpJaxmvo [facility] Comment on above:Performed By: #### ZAC CMP, #### [facility] ([id number]) [address] [place], [place] [address]Scsnkwssky [Mass/Vol]0.52 mg/dLLow0.60-1.30ProSelect Medical Trihealth Rehabilitation HospitalComment on above:Result Comment: METHOD TRACEABLE TO IDMS STANDARD Performed By: #### CEDRIC FRANK, #### [facility] ([id number]) [address], [facility] [address] [place], [place] [address]hSQK (CKD-EPI) NON-RACE DEPENDENT>90Normal>59ProSelect Medical Trihealth Rehabilitation HospitalComment on above:Result Comment: Reported eGFR is based on the CKD-EPI 2020 equation that does not use a race coefficient.Performed By: #### CEDRIC FRANK, #### [facility] ([id number]) [address], [facility] [address] [place], [place] [address]Qiqhlfu [Mass/Vol]111 mg/oOTxfc16-09XozUcctadSelect Medical Trihealth Rehabilitation Hospital Comment on above:Performed By: #### CEDRIC FRANK, #### [facility] ([id number]) [address], [facility] [address] [place], [place] [address]Amyqnyrtl [Moles/Vol]3.8 mmol/LNormal3.5-5.0ProSelect Medical Trihealth Rehabilitation HospitalComment on above:Performed By: #### CEDRIC FRANK, #### [facility] ([id number]) [address], [facility] [address] [place], [place] [address]Msvszaq [Mass/Vol]6.0 g/dLNormal6.0-8.0[place] Comment on above:Performed By: #### CEDRIC FRANK, #### [facility] ([id number]) [address] [address] [place], [place] [address]Vnjtof [Moles/Vol]148 mmol/XLhux027-326XfbGequesSelect Medical Trihealth Rehabilitation Hospital Comment on above:Performed By: #### CEDRIC FRANK, #### [facility] ([id number]) [address], [address] [place], [place] [address]Wtnr nitrogen [Mass/Vol]13 mg/dLNormal5-27ProSelect Medical Trihealth Rehabilitation HospitalComment on above:Performed By: #### CEDRIC FRANK, 84936-2 #### [facility] ([id number]) [address], [address] [place] [address]LBHBALOROec 06-97-2475Agjvojbiz [Mass/Vol]1.7 mg/dLLow1.8-2.6 [facility] Cleveland EastComment on above:Performed By: #### CEDRIC FRANK, #### [facility] ([id number]) [address], [address] [place], [place] [address]PLFIC CARDIACon 57-06-4311KSVWK'S TESTNormalProSelect Medical Trihealth Rehabilitation HospitalComment on above:Performed By: #### CEDRIC FRANK, #### [facility] ([id number]) [address], [address] [place], [place] [address]MWSV,DEFICIT1.1 MMOL/LNormal0.0-2.0[place] Comment on above:Performed By: #### CEDRIC FRANK, #### [facility] ([id number]) [address], [address] [place], [place] [address]Hald rclcolkdeir37.6 [degF]Kfojwm35.0[place] Comment on above:Performed By: #### CEDRIC FRANK, #### [facility] ([id number]) [address], [address] [place], [place] [address]Temlekk [Mass/Vol]108 mg/fDJvid53-79WljZwiftkCenterville Comment on above:Performed By: #### CEDRIC FRANK, #### [facility] ([id number]) [address], [address] [place], [place] [address]PEQ5 (Bld) [Moles/Vol]23.9 mmol/LSrdjst59-00CspEjhric [place]ville HospitalComment on above:Performed By: #### ZAC CMP, #### [facility] ([id number]) [address], [address] [place], [place] [address]Mgwuxpqmlh (Bld) [Volume fraction]28 %Bsm67-24OnkSauzuc [place] HospitalComment on above:Performed By: #### ZAC, CMP, #### [facility] ([id number]) [address], [address] [place], [place] [address]Fbydqdaeze (Bld) [Mass/Vol]9.1 g/dLLow13.0-17.0ProMedica [facility] HospitalComment on above:Performed By: #### ZAC CMP, #### [facility] ([id number]) [address], [address] [place], [place] [address]WPPZ. O2 CONC.100 %NormalProMedica Coffeyville HospitalComment on above:Performed By: #### ZAC, CMP, #### [facility] ([id number]) [address], [address] [place], [place] [address]JNSKIWH CALCIUM5.0 mg/dLNormal4.5-5.3PSelect [facility] Comment on above:Performed By: #### ZAC, CMP, #### [facility] ([id number]) [address], [address] [place], [place] [address]Hcjqrl (Bld) [Partial pressure]149 mm[Hg]Cawh31-282UiwTnvyfm [place] HospitalComment on above:Performed By: #### ZAC, CMP, #### [facility] ([id number]) [address], [address] [place], [place] [address]Zvhjad saturation in Npafx056.1 %Normal>90ProMedica Jonse HospitalComment on above:Performed By: #### CBC, CMP, 41121-3 #### [facility] ([id number]) [address], [address] [place], [place] [address]ZLC605.6 WKUFJszvzs78-13AmeBdtqwm [place] HospitalComment on above:Performed By: #### ZAC, CMP, 39861-9 #### [facility] ([id number]) [address], [address] [place], [place] [address]kQ (Bld)7.389 [pH]Normal7.350-7.450ProSelect [facility] Rehabilitation Hospital Comment on above:Performed By: #### ZAC CMP, 96462-3 #### [facility] ([id number]) [address], [address] [place], [place] [address]Wnevpwzgq [Moles/Vol]3.1 mmol/LLow3.5-5.0ProSelect Medical Trihealth Rehabilitation HospitalComment on above:Performed By: #### ZAC CMP, 57037-3 #### [facility] ([id number]) [address], [address] [place], [place] [address]PXZWWL SITEALINENormalProSelect Medical Trihealth Rehabilitation HospitalComment on above: Performed By: #### ZAC, CMP, 35069-9 #### [facility] ([id number]) [address], [address] [place], [place] [address]KOXVFP TYPEArterialNormalProFayette County Memorial Hospital HospitalComment on above:Performed By: #### ZAC, CMP, 40379-5 #### [facility] ([id number]) [address], [address] [place], [place] [address]Hucenbbp Pathologyon 86-58-2636Rsltxckv PathologyNormalProSelect Medical Trihealth Rehabilitation HospitalComment on above:Result Comment: [facility] [address] [place] [address] Surgical Pathology Consultation Patient Name:DES ALCALAB:1950 (Age: 73)Gender:MTaken:08/07/2023eported:08/10/2023hysician(s):Mauricio Rose MD ([phone])Copy To: Rec. #:[id number]: #[id number] Final Pathologic Diagnosis Right hip bone and femoral head; excision: Femoral head with hemorrhages and fragmentation of the bone trabeculae consistent with fracture site changes. Thin bone trabeculae suggestive of osteopenia. Normocellular maturing trilineage hematopoiesis. No granuloma or neoplasm. Report Electronically Signed Out wak/08/10/2023Kofi Alicea MD Interpretation [place] [address], License number: [id number]. Clinical History Right hip fx. Gross Description Received in formalin labeled FREDRICK, right femoral head is a dome shaped femoral head, 5 x 5 x 3cm with separate bone fragments in the container aggregating to 4 x 3 x 2 cm. The articular surfaceis espinoza, smooth and glistening. The resection margin is roughened and markedly softened. The specimen is sectioned to reveal espinoza firm bone within the femoral head. Fur Tailor sections are submitted as follows: A separate fragments of bone within the container, decalcified B femoral head, decalcified C softened tissue at resection margin (3, ss, [id number]) . /08/07/2023GR Specimen(s) Received Right hip bone and femoral head Fee Codes(s): 1; 14251, 14235HU RETROPERITONEAL COMPLETEon 66-00-9075PI RETROPERITONEAL COMPLETEUS RETROPERITONEAL COMPLETE Renal ultrasound, 08/06/2023. History: Renal [...] cysts, largest in the medial kidney measuring 4.0x 3.5 x 3.8 cm. Renal parenchymal echotexture is normal with no hydronephrosis, nephrolithiasis or s olid mass. Left kidney is 11.8 x 5.6 [...] by Tio Zambrano MD on 08/06/2023 10:28 PMNormalProSelect Medical Trihealth Rehabilitation HospitalXR CHEST 1 VWon 04-60-3189HM CHEST 1 VWXR CHEST 1 VW Portable chest: HISTORY: Hypoxia. Single view of the chest was obtained and compared to prior exam dated 344. Pulmonary vasculature appears somewhat congested. No pneumothorax is seen. No consolidation or effusion. Osseous appear intact. IMPRESSION: Vascular congestion. Finalized by Fareed Phillip MD on 08/07/2023 6:45 PMNormalProSelect Medical Trihealth Rehabilitation HospitalXR CHEST 1 VWXR CHEST 1 VW XR CHEST 1 VW History: Short of breath. COPD One view study. Comparison: 08/06/2023 and 08/04/2023 Impression: * No significant interval change.Skinfold projects over portion of the left chest. No pneumothorax.No large effusion Finalized by Janet Perez MD on 08/07/2023 7:07 AMNormalProSelect Medical Trihealth Rehabilitation HospitalXR HIP RT 2-3 VIEWS W OR WO PELVISon 81-11-2708UQ HIP RT 2-3 VIEWS W OR WO PELVIS XR HIP RT 2-3 VIEWS W OR WO PELVIS XR HIP RT 2-3 VIEWS W OR WO PELVIS HISTORY: Hemiarthroplasty. COMPARISON: 08/06/2023. IMPRESSION: Reference air kerma 3.9 mGy. Fluoroscopic guidance provided. Please see details within procedural/operative note. Finalized by Vitaly Cordoba MD on 08/07/2023 1:23 PMNormalProSelect Medical Trihealth Rehabilitation HospitalXR PELVIS 1 OR 2 VWSon 49-54-5573MD PELVIS 1 OR 2 VWSXR PELVIS 1 OR 2 VWS XR PELVIS 1 OR 2 VWS HISTORY: Hemiarthroplasty. COMPARISON: 08/06/2023. IMPRESSION: 1. Status post right-sided hemiarthroplasty, no hardware complication. Expected soft tissue gas. Finalized by Vitaly Cordoba MD on 08/07/2023 1:23 PMNormalCenterville COMPLETE BLOOD COUNTon 50-75-3703Chbkeqadptd distribution width (RBC) [Ratio] 18.4 %High11.5-15.0[place]ervilleComment on above:Performed By: #### CBC, CMP, 49304-1 #### [facility] ([id number]) [address], [address] [place], [place] [address]Gejciotzab (Bld) [Volume fraction]23.9 %Jpc19-75JpxWoxvwiSelect Medical Trihealth Rehabilitation HospitalComment on above:Performed By: #### CBC, CMP, 23605-3 #### [facility] ([id number]) [address], [address] [place], [place] [address]Brwrbzurvk (Bld) [Mass/Vol]7.7 g/dLLow13.0-17.0[place]ervilleComment on above:Performed By: #### CBC, CMP, 16343-4 #### [facility] ([id number]) [address], [address] [place], [place] [address]NVS (RBC) [Entitic mass]26.9 veCyj47-70YupEthuji [facility] Comment on above:Performed By: #### CBC, CMP, 87520-2 #### [facility] ([id number]) [address], [address] [place], [place] [address]OBLE (RBC) [Mass/Vol]32.4 g/hHWkfmns71-29CljWowjqk [place] HospitalComment on above:Performed By: #### CBC, CMP, #### [facility] ([id number]) [address], [address] [place], [place] [address]WVG (RBC) [Entitic vol]83 wQBcnzxu35-492EktAbcrbo [place] HospitalComment on above:Performed By: #### CBC, CMP, #### [facility] ([id number]) [address], [address] [place], [place] [address]Dryupeac mean volume (Bld) [Entitic vol]11.0 fLNormal7-12 [facility] [place] HospitalComment on above:Performed By: #### CBC, CMP, #### [facility] ([id number]) [address], [address] [place], [place] [address]Usdkofqqa (Bld) [#/Vol]198 10*3/lPXegsen480-069OpxKdyltv [place] HospitalComment on above:Performed By: #### CBC, CMP, #### [facility] ([id number]) [address], [address] [place], [place] [address]BBG COUNT2.87 X10E12/LLow4.10-5.70ProF[facility] Hospital Comment on above:Performed By: #### CBC, CMP, #### [facility] ([id number]) [address], [address] [place], [place] [address]WLR (Bld) [#/Vol]8.2 10*3/uLNormal4.0-11.0ProNewark Hospitalca [place] HospitalComment on above:Performed By: #### CBC, CMP, #### [facility] ([id number]) [address], [address] [place], [place] [address]YQIKPCDETMIWU METABOLIC PANELon 54-95-7477Ebcxptz [Mass/Vol]3.4 g/dLNormal3.2-5.3[facility] [place] HospitalComment on above:Performed By: #### CBC, CMP, #### [facility] ([id number]) [address], [address] [place], [place] [address]RQB [Catalytic activity/Vol]70 U/VHjzafb08-607VvkFlbtve Jonse HospitalComment on above:Performed By: #### ZAC CMP, #### [facility] ([id number]) [address], [address] [place], [place] [address]ECM [Catalytic activity/Vol]8 U/LNormal0-40[facility] HospitalComment on above:Performed By: #### ZAC CMP, #### [facility] ([id number]) [address], [address] [place], [place] [address]Ablez gap [Moles/Vol]11 mmol/LNormal5-15[facility] HospitalComment on above:Performed By: #### ZAC CMP, #### [facility] ([id number]) [address], [address] [place], [place] [address]GHU [Catalytic activity/Vol]20 U/LNormal0-41[facility] HospitalComment on above:Performed By: #### ZAC, CMP, #### [facility] ([id number]) [address], [address] [place], [place] [address]Jnevapzsq [Mass/Vol]0.8 mg/dLNormal0.3-1.2[facility] Jones HospitalComment on above:Performed By: #### ZAC, CMP, #### [facility] ([id number]) [address], [address] [place], [place] [address]Gduyfzx [Mass/Vol]9.3 mg/dLNormal8.5-10.5Pro[facility] Jones HospitalComment on above:Performed By: #### ZAC, CMP, #### [facility] ([id number]) [address], [address] [place], [place] [address]Fsqdzpbd [Moles/Vol]106 mmol/KVbjgho69-114QueGofvhm [place] HospitalComment on above:Performed By: #### CEDRIC FRANK, #### [facility] ([id number]) [address] [address] [place], [place] [address]UM5 [Moles/Vol]24 mmol/VAawzim72-78UauWnsereMedina Hospital Comment on above:Performed By: #### CEDRIC FRANK, #### [facility] ([id number]) [address] [address] [place], [place] [address]Fkeovfheow [Mass/Vol]0.59 mg/dLLow0.60-1.30[place]Comment on above:Result Comment: METHOD TRACEABLE TO IDMS STANDARD Performed By: #### CEDRIC FRANK, #### [facility] ([id number]) [address] [address] [place], [place] [address]tJJQ (CKD-EPI) NON-RACE DEPENDENT>90Normal>59ProSelect Medical Trihealth Rehabilitation HospitalComment on above:Result Comment: Reported eGFR is based on the CKD-EPI 2020 equation that does not use a race coefficient.Performed By: #### CEDRIC FRANK, #### [facility] ([id number]) [address] [address] [place], [place] [address]Weodsxg [Mass/Vol]72 mg/eGDdrfai99-42IgfKjwoylCenterville Comment on above:Performed By: #### CEDRIC FRANK, #### [facility] ([id number]) [address] [address] [place], [place] [address]Badedllnr [Moles/Vol]3.6 mmol/LNormal3.5-5.0ProSelect Medical Trihealth Rehabilitation HospitalComment on above:Performed By: #### CEDRIC FRANK, #### [facility] ([id number]) [address] [address]Hzexjax [Mass/Vol]6.4 g/dLNormal6.0-8.0[place] Comment on above:Performed By: #### CBC, [facility], #### [facility] ([id number]) [address] [address]Susuls [Moles/Vol]141 mmol/QChhatl421-117PoiAymrtx [place] HospitalComment on above:Performed By: #### CBC, [facility], #### [facility] ([id number]) [address] [address]Wjre nitrogen [Mass/Vol]20 mg/dLNormal5-27ProSelect Medical Trihealth Rehabilitation HospitalComment on above:Performed By: #### CBC, [facility], #### [facility] ([id number]) [address] [address]XIP [Mass/Vol]on 08-06-2023 REACTIVE QDGDQKA52.9 mg/dLHigh 0.000-0.744PMedina HospitalComment on above:Performed By: #### 75448-5, 1987-10, 16152-9 #### [facility] ([id number]) [address] [address]SWU Photometric method (Bld) [Velocity]on 70-18-9277VEO, ERYTHROCYTE SEDIMENTATION RATE71 mm/hHigh0-20ProSelect Medical Trihealth Rehabilitation HospitalComment on above:Performed By: #### 96862-6, 1987-10, 59650-9 #### [facility] ([id number]) [address] [address]GK SWALLOW MOTILITY FUNCTIONon 33-10-8474UD SWALLOW MOTILITY FUNCTIONFL SWALLOW MOTILITY FUNCTION FL SWALLOW MOTILITY FUNCTION [...] Manolo Mari MD on 08/06/2023 1:22 PM I, Kyle Curtis MD have personally reviewed the image(s) and agree with and/or edited the report Finalized by Kyle Curtis MD on 08/06/2023 1:24 PMNormalLima City Hospital AND HCTon 28-97-7014Pbitxncptc (Bld) [Volume fraction]25.0 %Jjl04-06 [place]ervilleComment on above:Performed By: #### CEDRIC FRANK, 42276-9 #### [facility] ([id number]) [address] [place], [place] [address]Vicxknnihh (Bld) [Mass/Vol]8.2 g/dLLow13.0-17.0CentervilleComment on above:Performed By: #### CEDRIC FRANK, 50135-8 #### [facility] ([id number]) [address] [place], [place] [address]OFEQJVEBBvo 12-60-7017Nfpwzxdpr [Mass/Vol]2.1 mg/dLNormal1.8-2.6 [place]ervilleComment on above:Performed By: #### CEDRIC FRANK, 35252-2 #### [facility] ([id number]) [address], [address] [place], [place] [address]Ojhyzvsss [Mass/Vol]1.6 mg/dLLow1.8-2.6[place] Comment on above:Performed By: #### CEDRIC FRANK, 31404-1 #### [facility] ([id number]) [address] [place] [address], [address] [place], [place] [address]Nanoxsorbnata [place] [Mass/Vol]on 22-67-9845WLSNWZJSIULLP6.21 ng/mL High<0.05ProMedica Regency Hospital Cleveland EastComment on above:Result Comment: NOTE <0.50 ng/mL - Low risk of severe sepsis and/or septic shock. <2.00 ng/mL - Recommend retesting within 6-24 hours. >2.00 ng/mL - High risk of sepsis and/or septic shock.Performed By: #### 24028- 1, 1987-5, 28714-9 #### [facility] ([id number]) [address] [place] [address], [address] [place], [place] [address]QOKU PATHOGENS/AZJE-QdU-5nf 07-68-7402Oshwmnczgmm pathogens DNA and RNA panel ARIEL+non-probe (Nph)SPECIMEN SOURCE NASO PHARYNX ADENOVIRUS Not detected (qualifier [...] 2 Not detected (qualifier value) NOTE The [employer] Respiratory Panel 2.1 (RP2.1) is a multiplexed [...] other pathogens. The agent(s) detected by the [employer] RP2.1 may not be the definite cause [...] evaluating a patient with possible respiratory tract infection.[facility] Hospital - YoungstownComment on above:Performed By: #### 79228-7 #### [facility] ([id number]) [address] [place], [place] [address]QU EXT NON-VASC RT LIMITEDon 40-78-3342VK EXT NON-VASC RT LIMITEDUS EXT NON-VASC RT LIMITED EXAM: US EXT NON-VASC RT LIMITED CLINICAL INDICATIONS: possible fluid collection right gluteal subcutaneous soft tissue FINDINGS/IMPRESSION: Superficial ultrasound of the right gluteal soft tissues demonstrates mild edema without focal hematoma or collection. Finalized by Deshawn Walker on 08/06/2023 4:28 PMNormalCentervilleXR CHEST 1 VWon 50-00-5872PW CHEST 1 VWXR CHEST 1 VW Single view chest History:copd, surg clearance Difficulty breathing, shortness of breath Comparison: 08/04/2023 Findings: Single portable view of the chest. Patient rotation towards the left. Stable cardiomediastinal silhouette. No definitive focal opacity, effusion or pneumothorax. Impression: No definitive acute cardiopulmonary process. Finalized by Kyle Curtis MD on 08/06/2023 1:02 PMNormalSalem Regional Medical Center HospitalXR HIP RT 2-3 VIEWS W OR WO PELVISon 32-83-2603TM HIP RT 2-3 VIEWS W OR WO PELVISXR HIP RT 2-3 VIEWS W OR WO PELVIS CLINICAL INFORMATION: pain TECHNIQUE: XR HIP RT 2-3 VIEWS W OR WO PELVIS 3 views right hip were obtained. There is right subcapital femoral neck fracture with displacement.Osseous structures appear somewhat osteopenic. Deformity of the right ischial and inferior pubic ramus appears unchanged in comparison with 08/05/2023 age-indeterminate right superior pubic rami fractures. IMPRESSION: Mildly displaced right subcapital femoral neck fracture. Age-indeterminate right superior and inferior pubic ramus fractures. Finalized by Fareed Phillip MD on 08/06/2023 1:25 PMNormalCentervilleXR PELVIS MIN 3 VWSon 59-09-4303UP PELVIS MIN 3 VWSXR PELVIS MIN 3 VWS CLINICAL INFORMATION: pain TECHNIQUE: XR PELVIS MIN 3 VWS 2 views of the pelvis are obtained. There is age indeterminant fracture right superior and inferiorpubic ramus. Right subcapital femoral neck fracture noted with displacement. Osseous structures areosteopenic. IMPRESSION: Right subcapital femoral neck fracture. Age-indeterminate right superior and inferior pubic rami fractures Finalized by Fareed Phillip MD on 08/06/2023 1:26 PMNormalCentervilleCOMPLETE BLOOD COUNTon 04-70-6469Pvhrkozpcyb distribution width (RBC) [Ratio]18.3 %High11.5-15.0UC HealthComment on above:Performed By: #### CBCA, BMP, 3040-3, 91023-3, LIVR, 36299-4, PINR, 99118-9, THYR #### [facility] ([id number]) [address] [place], [place] [address]Cuttjzsnzu (Bld) [Volume fraction]24.4 %Var87-22JgrNlirwyUC HealthComment on above:Performed By: #### CBCA, BMP, 3040-3, 55393-9, LIVR, 09785-4, PINR, 14890-5, THYR #### [facility] ([id number]) [address] [place] [address]Eokdwpwokn (Bld) [Mass/Vol]8.0 g/dLLow13.0-17.0UC HealthComment on above:Performed By: #### CBCA, BMP, 3040-3, 51945-6, LIVR, 45683-3, PINR, 41373-8, THYR #### [facility] ([id number]) [address] [place] [address] 60738DVB (RBC) [Entitic mass]27.0 tdMekisn67-50QigVhfmszMethodist Richardson Medical CenterComment on above:Performed By: #### CBCA, BMP, 3040-3, 20569-1, LIVR, 19494-0, PINR, 43722-4, THYR #### [facility] ([id number]) [address] [place] [address] 76544YNEC (RBC) [Mass/Vol]32.9 g/rYMnflsl63-48IvrTvusiaMethodist Richardson Medical CenterComment on above:Performed By: #### CBCA, BMP, 3040-3, 59109-5, LIVR, 83669-6, PINR, 46762-0, THYR #### [facility] ([id number]) [address] [place] [address] 32196MHE (RBC) [Entitic vol]82 pMBysjtk07-967BdqDtcuen Fremont HospitalComment on above:Performed By: #### CBCA, BMP, 3040-3, 63581-8, LIVR, 63510-6, PINR, 92526-3, THYR #### [facility] ([id number]) [address] [place] [address] 92091Hqngjtmq mean volume (Bld) [Entitic vol]11.0 fLNormal7-12 ProMHi-Desert Medical CenterComment on above:Performed By: #### CBCA, BMP, 3040-3, 86592-3, LIVR, 46606-8, PINR, 37018-5, THYR #### [facility] ([id number]) [address] [place] [address] 90346Fjiajvclb (Bld) [#/Vol]193 10*3/xSSydcnx941-016NabNjdqsc Fremont HospitalComment on above:Performed By: #### CBCA, BMP, 3040-3, 83421-2, LIVR, 08558-0, PINR, 37377-6, THYR #### [facility] ([id number]) [address] [place] [address] 22265KZQ COUNT2.97 X10E12/LLow4.10-5.70[facility] Comment on above:Performed By: #### CBCA, BMP, 3040-3, 06960-6, LIVR, 95063-1, PINR, 56760-2, THYR #### [facility] ([id number]) [address] [place] [address] 35778TVQ (Bld) [#/Vol]10.4 10*3/uLNormal4.0-11.0UC HealthComment on above:Performed By: #### CBCA, BMP, 3040-3, 57006-9, LIVR, 71838-1, PINR, 17453-9, THYR #### [facility] ([id number]) [address] [place] [address] 98651OPFJWGKEXCQBA METABOLIC PANELon 35-94-8776Hgozybh [Mass/Vol]3.7 g/dLNormal3.2-5.3ProMedica Scripps Mercy HospitalComment on above:Performed By: #### CBCA, BMP, 3040-3, 18185-6, LIVR, 24208-1, PINR, 49080-7, THYR #### [facility] ([id number]) [address] [place] [address] 00697XUI [Catalytic activity/Vol]72 U/OEbcpzs69-816QmlKbqqpoMethodist Richardson Medical CenterComment on above:Performed By: #### CBCA, BMP, 3040-3, 06306-2, LIVR, 64533-0, PINR, 55497-0, THYR #### [facility] ([id number]) [address] [place] [address] 35788UDJ [Catalytic activity/Vol]16 U/LNormal0-40ProMethodist Richardson Medical CenterComment on above:Performed By: #### CBCA, BMP, 3040-3, 88311-3, LIVR, 13903-2, PINR, 84249-2, THYR #### [facility] ([id number]) [address] [place] [address] 66058Suxmo gap [Moles/Vol]11 mmol/LNormal5-15ProMethodist Richardson Medical CenterComment on above:Performed By: #### CBCA, BMP, 3040-3, 67088-7, LIVR, 53928-4, PINR, 52440-9, THYR #### [facility] ([id number]) [address] [place] [address] 99328EAG [Catalytic activity/Vol]25 U/LNormal0-41ProMethodist Richardson Medical CenterComment on above:Performed By: #### CBCA, BMP, 3040-3, 07913-3, LIVR, 82760-8, PINR, 54477-6, THYR #### [facility] ([id number]) [address] [place] [address], [place] [address]Ntgazrhaf [Mass/Vol]0.9 mg/dLNormal0.3-1.2PMary Rutan HospitalComment on above:Performed By: #### CBCA, BMP, 3040-3, 60096-5, LIVR, 06059-8, PINR, 61902-3, THYR #### [facility] ([id number]) [address] [place] [address], [place] [address]Qyxyizr [Mass/Vol]9.6 mg/dLNormal8.5-10.5PMary Rutan HospitalComment on above:Performed By: #### CBCA, BMP, 3040-3, 49941-1, LIVR, 20353-1, PINR, 74066-6, THYR #### [facility] ([id number]) [address] [place] [address], [place] [address]Cttbiayk [Moles/Vol]99 mmol/YBjflaf31-276LpcVgddgsMethodist Richardson Medical CenterComment on above:Performed By: #### CBCA, BMP, 3040-3, 18650-8, LIVR, 95152-8, PINR, 83545-0, THYR #### [facility] ([id number]) [address] [place] [address], [place] [address]AR6 [Moles/Vol]25 mmol/WDwxtus58-49ZnsPlljxsMary Rutan Hospital Comment on above:Performed By: #### CBCA, BMP, 3040-3, 77188-3, LIVR, 82366-3, PINR, 07864-4, THYR #### [facility] ([id number]) [address] [place] [address], [place] [address]Cfhcjpwxzg [Mass/Vol]0.89 mg/dLNormal0.70-1.20ProMethodist Richardson Medical CenterComment on above:Result Comment: METHOD TRACEABLE TO IDMS STANDARD Performed By: #### CBCA, BMP, 3040-3, 93833-0, LIVR, 23318-7, PINR, 30928-3, THYR #### [facility] ([id number]) [address] [place] [address] 90193gMIU (CKD-EPI) NON-RACE DEPENDENT>90Normal>59ProMethodist Richardson Medical CenterComment on above:Result Comment: Reported eGFR is based on the CKD-EPI 2020 equation that does not use a race coefficient.Performed By: #### FRANCESCA, BMP, 3040-3, 65019-0, LIVR, 96558-6, PINR, 66321-6, THYR #### [facility] ([id number]) [address] [place] [address] 21105Rzlxkbk [Mass/Vol]110 mg/aFMuqv38-19DzhGvbupuUC Health Comment on above:Performed By: #### FRANCESCA, DANELLE, 3040-3, 80093-2, LIVR, 20942-4, PINR, 49750-1, THYR #### [facility] ([id number]) [address] [place] [address] 22421Whaytbmrj [Moles/Vol]3.7 mmol/LNormal3.5-5.0ProMethodist Richardson Medical CenterComment on above:Performed By: #### FRANCESCA, BMP, 3040-3, 95843-8, LIVR, 80163-4, PINR, 88875-9, THYR #### [facility] ([id number]) [address] [place] [address] 85455Lgrufnb [Mass/Vol]7.0 g/dLNormal6.0-8.0UC HealthComment on above:Performed By: #### FRANCESCA, BMP, 3040-3, 27476-7, LIVR, 73705-6, PINR, 33746-1, THYR #### [facility] ([id number]) [address] [place] [address] 00762Uvmxeu [Moles/Vol]135 mmol/ZJebfxi046-025UreIqidxi [facility]remont HospitalComment on above:Performed By: #### CBCA, BMP, 3040-3, 59054-1, LIVR, 36201-5, PINR, 19618-0, THYR #### [facility] ([id number]) [address] [place] [address] 93388Ukte nitrogen [Mass/Vol]23 mg/dLNormal5-27ProMethodist Richardson Medical CenterComment on above:Performed By: #### CBCA, BMP, 3040-3, 05005-8, LIVR, 47829-7, PINR, 37264-2, THYR #### [facility] ([id number]) [address] [place] [address] 14386IJT [Mass/Vol]on 08-05-2023 REACTIVE GNLXYNT24.1 mg/dLHigh 0.000-0.744ProMedAlmshouse San FranciscoComment on above:Performed By: #### CBCA, BMP, 3040-3, 71171-7, LIVR, 88307-5, PINR, 40660-3, THYR #### [facility] ([id number]) [address] [place] [address] 25251DRV Photometric method (Bld) [Velocity]on 85-32-5900BWU, ERYTHROCYTE SEDIMENTATION RATE47 mm/hHigh0-20UC HealthComment on above:Performed By: #### CBCA, BMP, 3040-3, 57840-9, LIVR, 91932-0, PINR, 27655-4, THYR #### [facility] ([id number]) [address] [place] [address] 34859LLXXDYZSdt 92-81-0740Oxmxymww [Mass/Vol]39 ng/lXZeqxpi49-493 ProMedicWestern Medical CenterComment on above:Performed By: #### CBCA, BMP, 3040-3, 10051-0, LIVR, 21752-1, PINR, 74719-6, THYR #### [facility] ([id number]) [address] [place] [address], [place] [address]Ieatxe [Mass/Vol]on 20-69-4611XQGIQ ACID>25.0Normal>5.8 UC HealthComment on above:Result Comment: NEW REFERENCE RANGE Performed By: #### CBCA, BMP, 3040-3, 77677-0, LIVR, 64805-6, PINR, 26350-6, THYR #### [facility] ([id number]) [address] [place] [address], [place] [address]VTIM PROFILEon 59-36-5697Gejy [Mass/Vol]14 ug/uPYmd13-044 UC HealthComment on above:Performed By: #### FRANCESCA, BMP, 3040-3, 41202-9, LIVR, 26446-8, PINR, 88359-4, THYR #### [facility] ([id number]) [address] [place] [address], [place] [address]DDOK HFLXKLB590 ug/qLVeennf749-730KnvWaotnhUC Health Comment on above:Performed By: #### ZACA, BMP, 3040-3, 19754-3, LIVR, 65555-4, PINR, 33068-3, THYR #### [facility] ([id number]) [address] [place] [address], [place] [address]XXZN SATURATION4 % GGRYBICCQOTkh84-74VeeQvedxm [facility] Comment on above:Performed By: #### CBCA, BMP, 3040-3, 20721-4, LIVR, 79847-6, PINR, 88550-6, THYR #### [facility] ([id number]) [address] [place] [address], [place] [address]YCDRWEWSTtw 77-57-4391Xzjlnsegi [Mass/Vol]1.6 mg/dLLow1.8-2.6 UC HealthComment on above:Performed By: #### CBCA, BMP, 3040-3, 04884-3, LIVR, 20041-4, PINR, 63008-2, THYR #### [facility] ([id number]) [address] [place] [address] 26721Wpuywtpcqf [Osmolality]on 84-77-7560MKSHDWXXNJ208 mOsm/kg H2 Gcaxow891-411BluKwpgaoMethodist Richardson Medical CenterComment on above:Performed By: #### CBCA, BMP, 3040-3, 78112-4, LIVR, 81321-5, PINR, 40036-9, THYR #### [facility] ([id number]) [address] [place] [address] 30619Cxnxuzeikp.intact [Mass/Vol]on 59-34-2725DYS YWUBGN09 pg/mL Aottfd25-17DpkHtlbnsMethodist Richardson Medical CenterComment on above:Performed By: #### CBCA, BMP, 3040-3, 50355-1, LIVR, 24297-1, PINR, 02229-5, THYR #### [facility] ([id number]) [address] [place] [address] 35202Ocrrevwgqi IA [Mass/Vol]on 30-16-2326Vihdjlrqxz [Mass/Vol]16 mg/oGUsh73-13UwaZchopbMethodist Richardson Medical CenterComment on above:Performed By: #### CBCA, BMP, 3040-3, 31749-4, LIVR, 03010-9, PINR, 21137-2, THYR #### [facility] ([id number]) [address] [place] [address] 17415Uugosrwrkhtll/100 RBC (Bld)on 75-89-4413PKGFMBWLGASB COUNT1.8 % Normal0.4-2.2PMary Rutan HospitalComment on above:Performed By: #### CBCA, BMP, 3040-3, 52264-1, LIVR, 97188-9, PINR, 85468-0, THYR #### [facility] ([id number]) [address] [place] [address] 63988OZHXINQ B12on 54-38-7595Zdspqcsxy (Vitamin B12) [Mass/Vol]232 pg/sJZhtprs130-576BtrTuntqt [facility] Mercy HospitalComment on above:Performed By: #### CBCA, BMP, 3040-3, 64786-7, LIVR, 08729-9, PINR, 74309-0, THYR #### [facility] ([id number]) [address] [place] [address] 10457Modzatt D+Metabolites [Mass/Vol]on 94-88-4515VEMHXKX D 25 HYD TOT41.2 ng/mWTgnwac90-851ApsFepmsf [facility] Mer[facility] HospitalComment on above:Result Comment: Vitamin D status 25 [place] Vitamin D Deficiency <20 ng/mL Insufficiency 20-29 ng/mL Sufficiency 30-100 ng/mL Toxicity >100 ng/mL NOTE: A pediatric reference range has not been established by the manager utility of this kit. The [place] [employer] recommends a Vitamin D level of = or >20ng/mL in infants and children.Performed By: #### CBCA, BMP, 3040-3, 40908-1, LIVR, 96898-9, PINR, 36857-8, THYR #### [facility] ([id number]) [address] [place] [address] 40712SM FEMUR RT 2+ VIEWSon 90-50-0914GF FEMUR RT 2+ VIEWSXR FEMUR RT 2+ VIEWS XR FEMUR RT 2+ VIEWS Clinical history:Fracture acute leg pain Comparison: None. Findings: Degenerative changes of the right hip in the right knee. There is heavy vascular calcifications andchondrocalcinosis. Right femoral neck fracture, likely chronic, noted. No pelvic fracture is not well-visualized on this radiograph. Healing right inferior pubic ramus and right acetabular fracture. Impression: Chronic appearing displaced and impacted right femoral neck fracture. Subacute healing right inferior pubic ramus and right acetabular fracture. Finalized by Kyle Curtis MD on 08/05/2023 11:11 [facility]edoXR PEL[facility] 3 VWSon 30-96-6535VS PELVIS MIN 3 VWSXR PELVIS MIN 3 VWS XR PELVIS MIN 3 VWS Clinical history:Fracture pelvic pain Comparison: None. Impression: Evaluation is compromised by positioning. There is healing bilateral sacroiliac fractures with healing subacute right inferior pubic ramus right acetabular fracture. Right femoral neck fracture is noted. Finalized by Kyle Curtis MD on 08/05/2023 11:11 [facility]edoBASIC METABOLIC PANLon 76-82-9972Clvzx gap [Moles/Vol]5 mmol/LNormal5-15 ProMedicWestern Medical CenterComment on above:Performed By: #### FRANCESCA BMP, 3040-3, 66973-3, LIVR, 24451-1, PINR, 56241-9, THYR #### [facility] ([id number]) [address] [place] [address] 64014Azgppdk [Mass/Vol]9.0 mg/dLNormal8.5-10.5PMary Rutan HospitalComment on above:Performed By: #### FRANCESCA BMP, 3040-3, 83268-3, LIVR, 34696-0, PINR, 41836-9, THYR #### [facility] ([id number]) [address] [place] [address], [place] [address]Vwgcqdao [Moles/Vol]98 mmol/PUynkwq66-877MijKiuefwUC HealthComment on above:Performed By: #### ZACA, BMP, 3040-3, 25182-1, LIVR, 19810-3, PINR, 06848-0, THYR #### [facility] ([id number]) [address] [place] [address] 67927CZ8 [Moles/Vol]27 mmol/BTmrmpp14-72ExrPxfhbiMary Rutan Hospital Comment on above:Performed By: #### FRANCESCA, BMP, 3040-3, 93373-8, LIVR, 52414-6, PINR, 00742-9, THYR #### [facility] ([id number]) [address] [place] [address] 64745Vaqpugcyuv [Mass/Vol]0.70 mg/dLNormal0.70-1.20ProMethodist Richardson Medical CenterComment on above:Result Comment: METHOD TRACEABLE TO IDMS STANDARD Performed By: #### CBCA, BMP, 3040-3, 27543-0, LIVR, 73435-1, PINR, 54976-5, THYR #### [facility] ([id number]) [address] [place] [address] 66509tEPQ (CKD-EPI) NON-RACE DEPENDENT>90Normal>59ProMethodist Richardson Medical CenterComment on above:Result Comment: Reported eGFR is based on the CKD-EPI 2020 equation that does not use a race coefficient.Performed By: #### CBCA, BMP, 3040-3, 56234-0, LIVR, 73552-6, PINR, 83867-3, THYR #### [facility] ([id number]) [address] [place] [address] 43181Sawtdad [Mass/Vol]117 mg/yJUaxr35-18WjxAcibrnMethodist Richardson Medical Center Comment on above:Performed By: #### CBCA, BMP, 3040-3, 79139-1, LIVR, 80698-4, PINR, 08419-8, THYR #### [facility] ([id number]) [address] [place] [address] 29469Xpbhrtzjy [Moles/Vol]3.3 mmol/LLow3.5-5.0ProMethodist Richardson Medical CenterComment on above:Performed By: #### CBCA, BMP, 3040-3, 64386-6, LIVR, 60297-0, PINR, 41066-2, THYR #### [facility] ([id number]) [address], [place] [address]Isniyb [Moles/Vol]130 mmol/CNzs284-643TxmWuemlcMethodist Richardson Medical CenterComment on above:Performed By: #### CBCA, BMP, 3040-3, 13521-7, LIVR, 85516-8, PINR, 53848-7, THYR #### [facility] ([id number]) [address] [place] [address] 78818Fmny nitrogen [Mass/Vol]23 mg/dLNormal5-27ProMethodist Richardson Medical CenterComment on above:Performed By: #### CBCA, BMP, 3040-3, 65277-7, LIVR, 12241-8, PINR, 22303-4, THYR #### [facility] ([id number]) [address] [place] [address] 77448DDKSQ CULTUREon 38-03-4604Cknultng identified Aer cx Nom (Bld) CULTURE RESULTS NO GROWTH 5 DAYSNoalUC HealthBacteria identified Aer cx Nom (Bld)CULTURE RESULTS NO GROWTH 5 DAYSNoalUC HealthCBC AND AUTO DIFFon 08-04-2023 ABSOLUTE BASOPHIL0.0 X10E9/LNormal0.0-0.2ProMedAlmshouse San FranciscoComment on above:Performed By: #### CBCA, BMP, 3040-3, 81728-4, LIVR, 16027-2, PINR, 32933- 9, THYR #### [facility] ([id number]) [address] [place] [address] 40976BVYEOVKP NEUTROPHIL8.4 X10E9/LHigh1.5-6.6UC HealthComment on above:Performed By: #### CBCA, BMP, 3040-3, 77002-5, LIVR, 84248-1, PINR, 05252-9, THYR #### [facility] ([id number]) [address] [place] [address] 85405Tegcabwni/100 WBC (Bld)0.4 %[facility] Comment on above:Performed By: #### CBCA, BMP, 3040-3, 71569-8, LIVR, 43511-6, PINR, 39418-2, THYR #### [facility] ([id number]) [address] [place] [address] 49021Zmrikhjklzw (Bld) [#/Vol]0.1 10*3/uLNormal0.0-0.4UC HealthComment on above:Performed By: #### CBCA, BMP, 3040-3, 23962-8, LIVR, 62591-5, PINR, 85929-8, THYR #### [facility] ([id number]) [address] [place] [address] 59007Kruugbszxlu/100 WBC (Bld)0.6 %[facility] Comment on above:Performed By: #### CBCA, BMP, 3040-3, 10492-5, LIVR, 15993-4, PINR, 44646-8, THYR #### [facility] ([id number]) [address] [place] [address], [place] [address]Zihzbugavxg distribution width (RBC) [Ratio]18.0 %High11.5-15.0 UC HealthComment on above:Performed By: #### CBCA, BMP, 3040-3, 69952-3, LIVR, 50516-2, PINR, 22489-7, THYR #### [facility] ([id number]) [address] [place] [address], [place] [address]Ezwlgkzcel (Bld) [Volume fraction]24.7 %Yvm09-94GneFjxmqkMethodist Richardson Medical CenterComment on above:Performed By: #### CBCA, BMP, 3040-3, 63464-1, LIVR, 18228-2, PINR, 02714-7, THYR #### [facility] ([id number]) [address] [place] [address] 85174Festubudvt (Bld) [Mass/Vol]8.4 g/dLLow13.0-17.0UC HealthComment on above:Performed By: #### CBCA, BMP, 3040-3, 26120-5, LIVR, 15865-2, PINR, 34744-0, THYR #### [facility] ([id number]) [address] [place] [address] 70241Bhxuosxnags (Bld) [#/Vol]0.5 10*3/uLLow1.0-3.5PTerrebonne General Medical Centerica [facility]ripp[facility] Mercy HospitalComment on above:Performed By: #### CBCA, BMP, 3040-3, 66538-7, LIVR, 20265-2, PINR, 29236-9, THYR #### [facility] ([id number]) [address] [place] [address] 71922Tzmneowsmnp/100 WBC (Bld)5.3 %NormalUC Health Comment on above:Performed By: #### CBCA, BMP, 3040-3, 06020-5, LIVR, 45914-4, PINR, 23337-0, THYR #### [facility] ([id number]) [address] [place] [address] 12088ZSJ (RBC) [Entitic mass]27.6 otRijvml63-70SbrHggretMethodist Richardson Medical CenterComment on above:Performed By: #### CBCA, BMP, 3040-3, 67271-8, LIVR, 04060-5, PINR, 62716-4, THYR #### [facility] ([id number]) [address] [place] [address] 59922KOOL (RBC) [Mass/Vol]34.1 g/tHTcqcir50-63NnlRwyfciMethodist Richardson Medical CenterComment on above:Performed By: #### CBCA, BMP, 3040-3, 52719-6, LIVR, 96080-4, PINR, 13548-1, THYR #### [facility] ([id number]) [address] [place] [address] 93303CQW (RBC) [Entitic vol]81 tOXdmqcg50-542CshZwkwxgUC HealthComment on above:Performed By: #### CBCA, BMP, 3040-3, 36267-2, LIVR, 01516-0, PINR, 59779-0, THYR #### [facility] ([id number]) [address] [place] [address] 36329Wnkqyuolk (Bld) [#/Vol]1.0 10*3/uLHigh0-0.9UC HealthComment on above:Performed By: #### CBCA, BMP, 3040-3, 39758-8, LIVR, 60616-5, PINR, 40044-4, THYR #### [facility] ([id number]) [address] [place] [address] 14349Wkzbfzuom/100 WBC (Bld)10.3 %[facility] Comment on above:Performed By: #### CBCA, BMP, 3040-3, 26016-8, LIVR, 31705-9, PINR, 07657-2, THYR #### [facility] ([id number]) [address] [place] [address] 86132Ghjvevxrysw/100 WBC (Bld)83.4 %NormalUC Health Comment on above:Performed By: #### CBCA, BMP, 3040-3, 17277-5, LIVR, 51639-0, PINR, 71647-6, THYR #### [facility] ([id number]) [address] [place] [address] 10215Zmrbvvpd mean volume (Bld) [Entitic vol]10.4 fLNormal7-12 ProMedicWestern Medical CenterComment on above:Performed By: #### CBCA, BMP, 3040-3, 23448-9, LIVR, 80084-6, PINR, 93815-4, THYR #### [facility] ([id number]) [address] [place] [address] 41749Wojwodvgl (Bld) [#/Vol]199 10*3/rHVfwlkw052-267OssDfunxn [facility]remont HospitalComment on above:Performed By: #### CBCA, BMP, 3040-3, 39075-8, LIVR, 87603-4, PINR, 95230-1, THYR #### [facility] ([id number]) [address] [place] [address] 64271IBL COUNT3.05 X10E12/LLow4.10-5.70[facility] Comment on above:Performed By: #### CBCA, BMP, 3040-3, 57700-4, LIVR, 71766-0, PINR, 41403-9, THYR #### [facility] ([id number]) [address] [place] [address] 96560NJX (Bld) [#/Vol]10.0 10*3/uLNormal4.0-11.0UC HealthComment on above:Performed By: #### CBCA, BMP, 3040-3, 95721-2, LIVR, 27118-2, PINR, 85435-3, THYR #### [facility] ([id number]) [address] [place] [address] 74029FF ABDOMEN AND PELVIS W CONTon 39-10-4259JE ABDOMEN AND PELVIS W CONTCT ABDOMEN AND PELVIS W CONT CLINICAL INFORMATION: [...] or significant free fluid. Multiple prominent air-filled loopsof small bowel measuring up to 3.5 cm [...] a right gluteal subcutaneous hematoma noted which measures2.9 x 6.0 cm.. Chronic appearing fracture of [...] femoral neck, right acetabulum, right inferior pubic ramusand the bilateral sacral ala. * There is [...] by Kyle Curtis MD on 08/04/2023 9:13 PMNormalUC HealthCT BRAIN WO CONTon 85-29-7296UT BRAIN WO CONTCT BRAIN WO CONT STUDY: CT HEAD WITHOUT CONTRAST CLINICAL HISTORY: Head trauma, minor (Age >= 65y) acute head pain and head trauma COMPARISON: None. TECHNIQUE: CT head was performed without contrast utilizing 2.5 mm axial reconstruction with imagesreviewed in bone and brain windows. Automated exposure control was utilized. FINDINGS: There is no intracranial mass, mass effect or shift of midline structures. No extra-axial fluid collection. [place]-white differentiation is preserved. There is mild motion artifact compromising assessment. There is mild generalized age- related brain volume loss and compensatory enlargement of [...] by Kyle Curtis MD on 08/04/2023 8:26 PMNormalUC HealthLIPASEon 96-26-9005Lvwlul [Catalytic activity/Vol]29 U/LIfhdcj83-51 [facility] HospitaledicWestern Medical CenterComment on above:Performed By: #### CBCA, BMP, 3040-3, 69742-4, LIVR, 11385-6, PINR, 97389-7, THYR #### [facility] ([id number]) [address] [place] [address], [place] [address]LEENR PANELon 88-74-8905Tgtfyfx [Mass/Vol]3.8 g/dLNormal3.2-5.3 [facility] Mercy HospitalComment on above:Performed By: #### CBCA, BMP, 3040-3, 06180-9, LIVR, 50019-0, PINR, 54224-7, THYR #### [facility] ([id number]) [address] [place] [address], [place] [address]BQY [Catalytic activity/Vol]78 U/ZQjcpez36-394WtvIbkoyqMethodist Richardson Medical CenterComment on above:Performed By: #### CBCA, BMP, 3040-3, 76942-5, LIVR, 02392-4, PINR, 38230-0, THYR #### [facility] ([id number]) [address] [place] [address], [place] [address]BBJ [Catalytic activity/Vol]16 U/LNormal0-40ProMethodist Richardson Medical CenterComment on above:Performed By: #### CBCA, BMP, 3040-3, 37474-8, LIVR, 92205-6, PINR, 41511-7, THYR #### [facility] ([id number]) [address] [place] [address], [place] [address]GAT [Catalytic activity/Vol]23 U/LNormal0-41ProMethodist Richardson Medical CenterComment on above:Performed By: #### CBCA, BMP, 3040-3, 31390-8, LIVR, 35143-6, PINR, 41916-0, THYR #### [facility] ([id number]) [address] [place] [address], [place] [address]Thaivxysx [Mass/Vol]0.9 mg/dLNormal0.3-1.2Pro[facility] Mer[facility] HospitalComment on above:Performed By: #### CBCA, BMP, 3040-3, 75415-4, LIVR, 66215-0, PINR, 84982-7, THYR #### [facility] ([id number]) [address] [place] [address]Dhwjayxga.direct [Mass/Vol]0.2 mg/dLNormal0.0-0.4ProMethodist Richardson Medical CenterComment on above:Performed By: #### CBCA, BMP, 3040-3, 85264-2, LIVR, 80101-2, PINR, 00869-2, THYR #### [facility] ([id number]) [address] [place] [address]Gtztpey [Mass/Vol]7.2 g/dLNormal6.0-8.0ProMethodist Richardson Medical CenterComment on above:Performed By: #### CBCA, BMP, 3040-3, 34153-6, LIVR, 32481-7, PINR, 49827-0, THYR #### [facility] ([id number]) [address] [place] [address]Fgabhtk (P veronica) [Moles/Vol]on 89-40-5425CKKBEUP W/REFLEX0.9 mmol/LNormal0.4-2.0ProMethodist Richardson Medical CenterComment on above:Result Comment: Result did not trigger repeat Lactate, re-order if needed.Performed By: #### CBCA, BMP, 3040-3, 02978-6, LIVR, 10543-9, PINR, 14384-3, THYR #### [facility] ([id number]) [address] [place] [address] 89291Ysgdwywxvg (U) [Osmolality]on 18-93-0833BVDXZ ZFNNNLGFTJ855 mOsm/kg P4Nnvvjz588-0740NcmDzarum Fremont HospitalComment on above:Performed By: #### CBCA, BMP, 3040-3, 66723-1, LIVR, 69109-4, PINR, 48845-7, THYR #### [facility] ([id number]) [address] [facility] [place], [place] [address]VKUXZKI AND INRon 35-72-3180DYK Coag (PPP) [Relative time]1.5 {INR}High0.8-1.1PMary Rutan HospitalComment on above:Performed By: #### CBCA, BMP, 3040-3, 60739-6, LIVR, 86517-3, PINR, 57556-2, THYR #### [facility] ([id number]) [address] [place] [address], [place] [address]IF Coag (PPP) [Time]16.7 sHigh9.8-13.2PMary Rutan HospitalComment on above:Result Comment: NEW REFERENCE RANGEPerformed By: #### CBCA, BMP, 3040-3, 01899-0, LIVR, 55005-6, PINR, 53177-8, THYR #### [facility] ([id number]) [address] [facility], [place] [address]JDLD/FLU A+B/RSV by NAAT/Molecularon 58-82-9569CSTL/FLU A+B/RSV by NAAT/MolecularFLU A PCR Negative (qualifier value) FLU B [...] operators who are performing tests using either [employer] or [employer] systems and is limited to laboratories that [...] specimen repeat. Fact Sheet for Healthcare Providers: https://www.fda.gov/media/068843/download Fact Sheet for Patients: https://www.fda.gov/media/755305/downloadNormalProMethodist Richardson Medical CenterComment on above:Performed By: #### DANELLE MA, 3040-3, 70335-2, LIVR, 71712-8, PINR, 85909-5, THYR #### [facility] ([id number]) [address] [place] [address]UMESUZE PROFILEon 93-15-5535Amot T4 [Mass/Vol]1.08 ng/dLNormal 0.61-1.60ProMethodist Richardson Medical CenterComment on above:Performed By: #### CBCA BMP, 3040-3, 46742-2, LIVR, 36919-2, PINR, 60051-0, THYR #### [facility] ([id number]) [address] [place] [address] 41568BBK5.64 uIU/mLNormal0.49-4.67ProMethodist Richardson Medical CenterComment on above:Performed By: #### CBCA, BMP, 3040-3, 84974-5, LIVR, 94559-0, PINR, 70901-8, THYR #### [facility] ([id number]) [address] [place] [address] 894[address]MWHDQEII Ion 52-75-5635Zpnodffs I.cardiac [Mass/Vol]0.02 ng/mL Normal0.00-0.04UC HealthComment on above:Performed By: #### CBCA, BMP, 3040-3, 46736-0, LIVR, 66418-7, PINR, 24792-9, THYR #### [facility] ([id number]) [address] [place] [address] 84197PWBCYMEVHTbo 69-50-2999Hfausroza Ql (U)NegativeNormalNEG [facility] HospitalComment on above:Performed By: #### CBCA, BMP, 3040-3, 54753-6, LIVR, 06883-0, PINR, 60654-8, THYR #### [facility] ([id number]) [address] [place] [address] 60525NODGT/HGBNegativeNormalNEGUC HealthComment on above:Performed By: #### CBCA, BMP, 3040-3, 35072-4, LIVR, 44159-3, PINR, 06025- 9, THYR #### [facility] ([id number]) [address] [place] [address] 00704Mlngp (U)YELLOWNormalYELLOWProMethodist Richardson Medical CenterComment on above:Performed By: #### CBCA, BMP, 3040-3, 94416-4, LIVR, 80650-2, PINR, 98821-6, THYR #### [facility] ([id number]) [address] [place] [address] 15391Bknngam Ql (U)NegativeNormalNEGUC Health Comment on above:Performed By: #### CBCA, BMP, 3040-3, 89578-4, LIVR, 30769-5, PINR, 02789-2, THYR #### [facility] ([id number]) [address] [place] [address] 79354Rqxmhjb casts LM Ql (Urine sed)0 to 4Pcirzt0-6SxpQxtswgMary Rutan HospitalComment on above:Performed By: #### CBCA, BMP, 3040-3, 01433-6, LIVR, 30281-8, PINR, 93458-4, THYR #### [facility] ([id number]) [address] [place] [address] 17598Fjbyrat Ql (U)TraceAbnormalNEGProMethodist Richardson Medical CenterComment on above:Performed By: #### CBCA, BMP, 3040-3, 21480-9, LIVR, 40519-0, PINR, 10180-2, THYR #### [facility] ([id number]) [address] [place] [address] 24949Tfexujmin esterase Test strip Ql (U)NegativeNormalNEGUC HealthComment on above:Performed By: #### ZACA, BMP, 3040-3, 69334-9, LIVR, 67163-5, PINR, 23322-9, THYR #### [facility] ([id number]) [address] [place] [address] 48817Ubykuvd Ql (U)NegativeNormalThe [facility] Hospital Comment on above:Performed By: #### CBCA, BMP, 3040-3, 20451-7, LIVR, 30769-3, PINR, 94096-8, THYR #### [facility] ([id number]) [address] [place] [address] 35065pF (U)6.0 [pH]Normal5.0-8.5PMary Rutan HospitalComment on above:Performed By: #### ZACA, BMP, 3040-3, 19423-0, LIVR, 34862-4, PINR, 13677-2, THYR #### [facility] ([id number]) [address] [place] [address] 62922Dvasyyd Ql (U)TraceAbnormalNEGProMethodist Richardson Medical CenterComment on above:Performed By: #### CBCA, BMP, 3040-3, 26281-8, LIVR, 30086-7, PINR, 13487-6, THYR #### [facility] ([id number]) [address] [place] [address] 91949O.B.CELLS0 /hpfNormal0-5PMary Rutan HospitalComment on above:Performed By: #### FRANCESCA, BMP, 3040-3, 29277-4, LIVR, 77808-7, PINR, 23716- 9, THYR #### [facility] ([id number]) [address] [place] [address] 42644Rvgxtrnm gravity (U) [Rel density]1.950Okebqz0.003-1.035 [facility]cy HospitalComment on above:Performed By: #### FRANCESCA, BMP, 3040-3, 24119-2, LIVR, 76614-8, PINR, 10100-7, THYR #### [facility] ([id number]) [address] [place] [address] 21782XRAWYOYM EPITHELIUM0 to 9Icvxec3-2CdaXvsaptMary Rutan Hospital Comment on above:Performed By: #### CBCA, BMP, 3040-3, 00215-3, LIVR, 46721-7, PINR, 54832-1, THYR #### [facility] ([id number]) [address] [place] [address] 63598DXQDAETKFTYO EPITH0 to 6Dpmmnq4PzvGpzinhMethodist Richardson Medical Center Comment on above:Performed By: #### CBCA, BMP, 3040-3, 88724-0, LIVR, 27446-4, PINR, 01484-5, THYR #### [facility] ([id number]) [address] [place] [address] 07986JDSDFZADBLCICPHxowvcNHNVUEwnJqpqfg Fremont HospitalComment on above:Performed By: #### CBCA, BMP, 3040-3, 62637-7, LIVR, 17634-8, PINR, 57170- 9, THYR #### [facility] ([id number]) [address] [place] [address] 18834Qcsnhuricbgh Qn (U)0.2 {Cayden'U}/dLNormal<1.1PMary Rutan HospitalComment on above:Performed By: #### CBCA, BMP, 3040-3, 12153-6, LIVR, 24134-2, PINR, 17269-6, THYR #### [facility] ([id number]) [address] [place] [address] 21883I.B.CELLS0 to 1Mecweg9-4WnuEmvifnMary Rutan HospitalComment on above:Performed By: #### CBCA, BMP, 3040-3, 17994-4, LIVR, 23138-7, PINR, 45876- 9, THYR #### [facility] ([id number]) [address] [place] [address] 72654NTBVX CULTUREon 66-60-8058Lwwkphka identified Cx Nom (U)CULTURE RESULTS NO GROWTH AT <1000 CFU/mLNormalUC HealthComment on above: Performed By: #### CBCA, BMP, 3040-3, 79680-6, LIVR, 24474-5, PINR, 31094-7, THYR #### [facility] ([id number]) [address] [place] [address] 59351PESDP SODIUM,RANDOMon 65-66-8325Zwwvva (U) [Moles/Vol]24 mmol/L NormalProMedica Oklahoma City HospitalComment on above:Performed By: #### CBCA, BMP, 3040-3, 97760-3, LIVR, 65744-4, PINR, 32695-3, THYR #### [facility] ([id number]) [address] [place] [address] 02664RKPLOB BLOOD GASon 82-46-3024MJTRR'S TESTNormalUC HealthComment on above:Performed By: #### VBG #### [facility] ([id number]) [address] [place] [address] 96178Jhaf excess Calc (Bld) [Moles/Vol]4.0 mmol/LHigh0.0-2.0 [facility] Mer[facility] HospitalComment on above:Performed By: #### VBG #### [facility] ([id number]) [address] [place] [address] 32458FQJ2 (Bld) [Moles/Vol]25.2 mmol/LHigh20.0-24.0UC HealthComment on above:Performed By: #### VBG #### [facility] ([id number]) [address] [place] [address] 61326Uzlaxn saturation in Ztfaa198.0 %Normal>80.0UC HealthComment on above:Performed By: #### VBG #### [facility] ([id number]) [address] [place] [address] 08875BCWCCY SOURCENCNormAultman Orrville HospitalComment on above:Performed By: #### VBG #### [facility] ([id number]) [address] [place] [address] 42747YCG4 FABIO. FOR TEMP27.0 MMHGNoHocking Valley Community Hospital Comment on above:Performed By: #### VBG #### [facility] ([id number]) [address] [place] [address] 24910GOP8, BDBATR20.5 GUPMPok51-15ZbwNlkuabMethodist Richardson Medical CenterComment on above:Performed By: #### VBG #### [facility] ([id number]) [address] [place] [address], [place] [address]CT FABIO. FOR TEMP7.579NormalUC HealthComment on above:Performed By: #### VBG #### [facility] ([id number]) [address] [place] [address] 01028IC, VENOUS7.826Vdtg0.320-7.420ProMethodist Richardson Medical CenterComment on above:Performed By: #### VBG #### [facility] ([id number]) [address] [place] [address] 71969SR6 FABIO. FOR KPXK749 MMHGNoMountain View Hospital Hospital Comment on above:Performed By: #### VBG #### [facility] ([id number]) [address] [place] [address], [place] [address]CV3, ZVZZDK393 KPLLGsbu32-62IisTubjvxMethodist Richardson Medical CenterComment on above:Performed By: #### VBG #### [facility] ([id number]) [address] [place] [address] 06349VIBVSZ SITEN/ANormalUC HealthComment on above: Performed By: #### VBG #### [facility] ([id number]) [address] [place] [address] 97322ETDTJB TYPEVENOUSNormalUC HealthComment on above:Performed By: #### VBG #### [facility] ([id number]) [address] [place] [address] 34829ZN CHEST 1 VWon 38-79-1390WB CHEST 1 VWXR CHEST 1 VW XR CHEST 1 VW: [...] by Vernon Huerta MD on 08/04/2023 8:24 PMNormalProMedica Scripps Mercy HospitalaPTT Coag (PPP) [Time]on 23-59-3299jFJR Coag (Bld) [Time]31 oFpniea09-64 ProMedicWestern Medical CenterComment on above:Result Comment: NEW REFERENCE RANGE Performed By: #### CBCA, BMP, 3040-3, 40089-9, LIVR, 54315-7, PINR, 19526-4, THYR #### [facility] ([id number]) [address] [place] [address], FIRST FLOOR [place], [place] [address]Ligzp to Pathologiston 29-81-7589Cyysv to Pathologist ELECTRONICALLY SIGNED. TORRES RICK MDOhioHealth Berger Hospital Comment on above:Performed By: #### PT, RAFFAELE, MG, CBC, CPBILC #### [employer] [address] [place] [address] [phone] Glass Presser: Pete Ward MDBasinancy Metab w/rfx MGon 26-41-0314Egveg gap [Moles/Vol]10 mmol/LNormal9-17St. [facility]S Medical CenterComment on above: Performed By: #### PT, RAFFAELE, MG, CBC, CPBILC #### [facility] [address] [place], [place] [phone] Glass Presser: CAILIN Kangalcium [Mass/Vol]9.4 mg/dLNormal8.6-10.4St. [facility]S Medical CenterComment on above:Performed By: #### PT, RAFFAELE, MG, CBC, CPBILC #### [employer] [address] [place] [address] Glass Presser: CAILIN Kanghloride [Moles/Vol]96 mmol/QCvl48-676PsznnSt. Mary'S Medical CenterComment on above:Performed By: #### PT, RAFFAELE, MG, CBC, CPBILC #### [facility] [address] [place] [address] Glass Presser: Pete Ward MDCO2 [Moles/Vol]29 mmol/KIaioka88-26MsypmSt. Mary'S Medical CenterComment on above:Performed By: #### PT, RAFFAELE, MG, CBC, CPBILC #### [facility] [place] [address] Glass Presser: CAILIN Kangreatinine [Mass/Vol]0.6 mg/dLLow0.7-1.2MSutter Roseville Medical CenterComment on above:Performed By: #### PT, RAFFAELE, MG, CBC, CPBILC #### [facility] [address] [place] [address] Glass Presser: Pete Ward MDGFR/1.73 sq M.predicted among non-blacks MDRD (S/P/Bld) [Vol rate/Area]mL/min/{1.73_m2}Normal>60St. [facility]'S Medical CenterComment on above:Result Comment: These results are not intended for [...] or following therapy that affects renal tubular secretion.Performed By: #### PT, RAFFAELE, MG, CBC, CPBILC #### [facility] [address] [place] [address] Glass Presser: Pete Ward MDGlucose [Mass/Vol]87 mg/cUMbircu22-81SrrpzSutter Roseville Medical CenterComment on above:Performed By: #### PT, RAFFAELE, MG, CBC, CPBILC #### [facility] [address] [place] [address] Glass Presser: BERTA Kangotassium [Moles/Vol]3.8 mmol/LNormal3.7-5.3 [facility] Medical CenterComment on above:Performed By: #### PT, RAFFAELE, MG, CBC, CPBILC #### [facility] [address] [place] [address] Glass Presser: Pete Ward MDSodium [Moles/Vol]135 mmol/OZfufoo800-817FhhleSt. Mary'S Medical CenterComment on above:Performed By: #### PT, RAFFAELE, MG, CBC, CPBILC #### [place] [address] Glass Presser: Pete Ward MDUrea nitrogen [Mass/Vol]10 mg/dLNormal8-23St. [facility]S Medical CenterComment on above:Performed By: #### PT, RAFFAELE, MG, CBC, CPBILC #### [address] [address] Glass Presser: AGATHA Kang with Diffon 33-67-9166Xpl. Basophil0.08 k/uL Normal0.00-0.20St. [facility]S Medical CenterComment on above:Performed By: #### PT, RAFFAELE, MG, CBC, CPBILC #### [facility] [address] [place] [address] Glass Presser: MDAbs. PaerlImm.Granulocyte0.08 k/uLNormal0.00-0.30St. [facility] Medical CenterComment on above:Performed By: #### PT, RAFFAELE, MG, CBC, CPBILC #### [facility] [address] [place] [address] Glass Presser: Grady Kang.Neutrophil (Seg)6.40 k/uLNormal1.50-8.10 [facility] Medical CenterComment on above:Performed By: #### PT, RAFFAELE, MG, CBC, CPBILC #### [address] [address] Glass Presser: Pete Ward MDBasophils/100 WBC (Bld)1 %Normal02MSutter Roseville Medical CenterComment on above:Performed By: #### PT, RAFFAELE, MG, CBC, CPBILC #### [place] [address] Glass Presser: Pete Ward MDEosinophils (Bld) [#/Vol]0.42 10*3/uLNormal 0.00-0.44St. [facility] Medical CenterComment on above:Performed By: #### PT, RAFFAELE, MG, CBC, CPBILC #### [place] [address] Glass Presser: Pete Ward MDEosinophils/100 WBC (Bld)5 %High1-4St. [facility] Medical CenterComment on above:Performed By: #### PT, RAFFAELE, MG, CBC, CPBILC #### [place] [address] Glass Presser: Mukund Kangmature granulocytes/100 WBC (Bld)1 %Nvcb8YfcnfSt. Mary'S Medical CenterComment on above:Performed By: #### PT, RAFFAELE, MG, CBC, CPBILC #### [place] [address] Glass Presser: Pete Ward MDLymphocytes (Bld) [#/Vol]0.92 10*3/uLLow 1.10-3.70St. [facility] Medical CenterComment on above:Performed By: #### PT, RAFFAELE, MG, CBC, CPBILC #### [facility] [address] [place] [address] Glass Presser: Pete Ward MDLymphocytes/100 WBC (Bld)11 %Dxp99-04JsvvmSt. Mary'S Medical CenterComment on above:Performed By: #### PT, RAFFAELE, MG, CBC, CPBILC #### [facility] [address] [place] [address] Glass Presser: Pete Ward MDMonocytes (Bld) [#/Vol]0.50 10*3/uLNormal 0.10-1.20St. [facility] Medical CenterComment on above:Performed By: #### PT, RAFFAELE, MG, CBC, CPBILC #### [facility] [address] [place] [address] Glass Presser: ANNA Kangonocytes/100 WBC (Bld)6 %Normal3-12St. [facility]S Medical CenterComment on above:Performed By: #### PT, RAFFAELE, MG, CBC, CPBILC #### [facility] [address] [place] [address] Glass Presser: ANNA Kangorphology Luis (Bld) [Interp]ANISOCYTOSIS PRESENTNormalSt. Mary'S Medical CenterComment on above:Result Comment: 1+ POLYCHROMASIA 1+ ELLIPTOCYTESPerformed By: #### PT, RAFFAELE, MG, CBC, CPBILC #### [facility] [address] [place] [address] Glass Presser: Pete Ward MDNeutrophil (Seg)76 %Orao70-73PkbxgSt. Mary'S Medical CenterComment on above:Performed By: #### PT, RAFFAELE, MG, CBC, CPBILC #### [facility] [address] [place] [address] Glass Presser: Pete Ward MDErythrocyte distribution width (RBC) [Ratio]24.7 %High11.8-14.4St. [facility]S Medical CenterComment on above:Performed By: #### PT, RAFFAELE, MG, CBC, CPBILC #### [place] [address] Glass Presser: Pete Ward MDHematocrit (Bld) [Volume fraction]25.8 %Low 40.7-50.3MSutter Roseville Medical CenterComment on above:Performed By: #### PT, RAFFAELE, MG, CBC, CPBILC #### [place] [address] Glass Presser: Pete Ward MDHemoglobin (Bld) [Mass/Vol]7.7 g/dLLow13.0-17.0 [facility] Medical CenterComment on above:Performed By: #### PT, RAFFAELE, MG, CBC, CPBILC #### [place] [address] Glass Presser: ANNA KangCH (RBC) [Entitic mass]25.[address]Yfpyba92.2-33.5 [facility] Medical CenterComment on above:Performed By: #### PT, RAFFAELE, MG, CBC, CPBILC #### [place] [address] Glass Presser: ANNA KangCHC (RBC) [Mass/Vol]29.8 g/zOWorcan97.4-34.8 [facility] Medical CenterComment on above:Performed By: #### PT, RAFFAELE, MG, CBC, CPBILC #### [place] [address] Glass Presser: ANNA KangCV (RBC) [Entitic vol]86.[address]rmh71.6-102.9 [address] Medical CenterComment on above:Performed By: #### PT, RAFFAELE, MG, CBC, CPBILC #### [facility] [address] [place] [address] Glass Presser: AMARI Kang Automated0.0 per [address]BC[address]0St[address] [facility]'S Medical CenterComment on above:Performed By: #### PT, RAFFAELE, MG, CBC, CPBILC #### [facility] [address] [place] [address] Glass Presser: Lisette Kang mean volume (Bld) [Entitic vol]11.9 fL Normal8.1-13.5St. [facility]'S Medical CenterComment on above:Performed By: #### PT, RAFFAELE, MG, CBC, CPBILC #### [facility] [address] [place] [address] Glass Presser: Afia Kang (Bld) [#/Vol]471 10*3/uCQnjk165-710 [facility] Medical CenterComment on above:Performed By: #### PT, RAFFAELE, MG, CBC, CPBILC #### [facility] [address] [place] [address] Glass Presser: WILBER Kang (Bld) [#/Vol]2.98 10*6/uLLow4.21-5.77St. [facility]S Medical CenterComment on above:Performed By: #### PT, RAFFAELE, MG, CBC, CPBILC #### [facility] [address] [place] [address] Glass Presser: KYLIE Kang (Bld) [#/Vol]8.4 10*3/uLNormal3.5-11.3MSutter Roseville Medical CenterComment on above:Performed By: #### PT, RAFFAELE, MG, CBC, CPBILC #### [facility] [address] [place] [address] Glass Presser: DUKE KangARS-CoV-2on 40-79-4157AANM-CoV-2 (COVID-19) RNA ARIEL+probe Ql (Unsp spec)Not detectedNormalNOTDETMercy Desert Valley HospitalComment on above:Result Comment: Rapid NAAT: The specimen is NEGATIVE [...] management decisions. Fact sheet for Healthcare Providers: https://www.fda.gov/media/862530/download Fact sheet for Patients: https://www.fda.gov/media/050414/download Methodology: Isothermal Nucleic Acid AmplificationPerformed By: #### PT, RAFFAELE, MG, CBC, CPBILC #### [employer] [address] [place] [address] Glass Presser: Pete WardDUKEurgical Pathology Reporton [id number] Pathology Report(NOTE) Path Number: [id number] -- Diagnosis -- ASCENDING COLON, ENDOSCOPIC MUCOSAL RESECTION: -ADENOMATOUS POLYP (TUBULAR ADENOMA) Iam Wallis D.O. Electronically Signed Out /04/19/2023 Clinical Information Pre-op Diagnosis: ANEMIA, UNSPECIFIED TYPE Operative Findings: ASCENDING COLON POLYP Operation Performed: COLONOSCOPY POLYPECTOMY SNARE/COLD BIOPSY kb Source of Specimen A: ASCENDIING COLON POLYP Gross Description DAMI ALCALA, ASCENDING COLON POLYP Received in formalin are multiple pink-espinoza tissue fragments and polyps from 0.1 to 1.2 cm and are 2.2 x 1.4 x 0.5 cm in aggregate. Entirely 1 cs. lula mj NORMA/kb2:04/17/2023 Microscopic Description Microscopic evaluation performed. Processing Lab: [address] [address] Interpretation Performed at [address] [id number] SURGICAL PATHOLOGY CONSULTATION Patient Name: DAMI ALCALA [facility] Rec: [id number] [facility] ANATOMIC PATHOLOGY [address] [place] [phone] NormalSt. Mary'S Medical CenterCBC with Diffon [id number]. Basophil0.10 k/uLNormal0.0-0.2MSutter Roseville Medical Center Comment on above:Performed By: #### PT, RAFFAELE, MG, CBC, CPBILC #### [address] [id number] Glass Presser: Grady Kang.Imm.Granulocyte0.00 k/uLNormal0.00-0.30St. [facility]'S Medical CenterComment on above:Performed By: #### PT, RAFFAELE, MG, CBC, CPBILC #### [facility] [address] [place] [address] [phone] Glass Presser: Grady Kang.Neutrophil (Seg)8.59 k/uLHigh1.8-7.7St. Mary'S Medical CenterComment on above:Performed By: #### PT, RAFFAELE, MG, CBC, CPBILC #### [facility] [address] [place] [address] [phone] Glass Presser: Pete Ward MDBasophils/100 WBC (Bld)1 %Normal0-2MSutter Roseville Medical CenterComment on above:Performed By: #### PT, RAFFAELE, MG, CBC, CPBILC #### [facility] [address] [place] [address] [phone] Glass Presser: Pete Ward MDEosinophils (Bld) [#/Vol]0.10 10*3/uLNormal 0.0-0.4St. Mary'S Medical CenterComment on above:Performed By: #### PT, RAFFAELE, MG, CBC, CPBILC #### [address] [address] Glass Presser: Pete Ward MDEosinophils/100 WBC (Bld)1 %Normal1-4St. Mary'S Medical CenterComment on above:Performed By: #### PT, RAFFAELE, MG, CBC, CPBILC #### [place] [address] Glass Presser: Pete Ward MDImmature granulocytes/100 WBC (Bld)0 %Normal0 [facility] [facility]'S Medical CenterComment on above:Performed By: #### PT, RAFFAELE, MG, CBC, CPBILC #### [place] [address] Glass Presser: Pete Ward MDLymphocytes (Bld) [#/Vol]0.91 10*3/uLLow1.0-4.8 [facility]S Medical CenterComment on above:Performed By: #### PT, RAFFAELE, MG, CBC, CPBILC #### [place] [address] Glass Presser: Rebecca Kangmphocytes/100 WBC (Bld)9 %Bdd67-07YiwfqSt. Mary'S Medical CenterComment on above:Performed By: #### PT, RAFFAELE, MG, CBC, CPBILC #### [place] [address] Glass Presser: Pete Ward MDMonocytes (Bld) [#/Vol]0.40 10*3/uLNormal0.1-0.8 [facility]'S Medical CenterComment on above:Performed By: #### PT, RAFFAELE, MG, CBC, CPBILC #### [facility] [address] [place] [address] Glass Presser: ANNA Kangonocytes/100 WBC (Bld)4 %Normal1-7St. Mary'S Medical CenterComment on above:Performed By: #### PT, RAFFAELE, MG, CBC, CPBILC #### [address] [address] Glass Presser: ANNA Kangorphology Luis (Bld) [Interp]ANISOCYTOSIS PRESENTNormalSt. Mary'S Medical CenterComment on above:Result Comment: 1+ POLYCHROMASIA 1+ ELLIPTOCYTES HYPOCHROMIA PRESENTPerformed By: #### PT, RAFFAELE, MG, CBC, CPBILC #### [address] [address] Glass Presser: Pete Ward MDNeutrophil (Seg)85 %Pzwo04-60PkwtsSt. Mary'S Medical CenterComment on above:Performed By: #### PT, RAFFAELE, MG, CBC, CPBILC #### [address] [address] Glass Presser: Pete Ward MDErythrocyte distribution width (RBC) [Ratio]23.2 %High11.8-14.4St. Mary'S Medical CenterComment on above:Performed By: #### PT, RAFFAELE, MG, CBC, CPBILC #### [address] [address] Glass Presser: Pete Ward MDHematocrit (Bld) [Volume fraction]25.9 %Low 40.7-50.3MSutter Roseville Medical CenterComment on above:Performed By: #### PT, RAFFAELE, MG, CBC, CPBILC #### [facility] [address] [place] [address] Glass Presser: Pete Ward MDHemoglobin (Bld) [Mass/Vol]7.5 g/dLLow13.0-17.0 [facility]S Medical CenterComment on above:Performed By: #### PT, RAFFAELE, MG, CBC, CPBILC #### [place] [address] Glass Presser: ANNA KangCH (RBC) [Entitic mass]25.[address]ornk06.2-33.5 [address] [facility]S Medical CenterComment on above:Performed By: #### PT, RAFFAELE, MG, CBC, CPBILC #### [place] [address] Glass Presser: ANNA KangCHC (RBC) [Mass/Vol]29.0 g/fUDjbzxn45.4-34.8 [facility]S Medical CenterComment on above:Performed By: #### PT, RAFFAELE, MG, CBC, CPBILC #### [place] [address] Glass Presser: ANNA KangCV (RBC) [Entitic vol]88.[address]DOruhab22.6-102.9 [address]'S Medical CenterComment on above:Performed By: #### PT, RAFFAELE, MG, CBC, CPBILC #### [place] [address] Glass Presser: Pete Ward MDNRBC Automated0.0 per [address]BC[address]0St[address] Mary'S Medical CenterComment on above:Performed By: #### PT, RAFFAELE, MG, CBC, CPBILC #### [place] [address] Glass Presser: Apolonia Kangtelet mean volume (Bld) [Entitic vol]11.5 fL Normal8.1-13.5St. Mary'S Medical CenterComment on above:Performed By: #### PT, RAFFAELE, MG, CBC, CPBILC #### [facility] [address] [place] [address] Glass Presser: Afia Kang ([facility]) [#/Vol]457 10*3/qKVowc056-676 St[facility]S Medical CenterComment on above:Performed By: #### PT, RAFFAELE, MG, CBC, CPBILC #### [facility] [address] [place] [address] Glass Presser: RADHA Kang ([facility]) [#/Vol]2.94 10*6/uLLow4.21-5.77St. [facility] Medical CenterComment on above:Performed By: #### PT, RAFFAELE, MG, CBC, CPBILC #### [facility] [address] [place] [address] Glass Presser: KYLIE Kang ([facility]) [#/Vol]10.1 10*3/uLNormal3.5-11.3MSutter Roseville Medical CenterComment on above:Performed By: #### PT, RAFFAELE, MG, CBC, CPBILC #### [facility] [address] [place] [id number] Glass Presser: AGATHA Kang with Diffon [id number]. Basophil0.10 k/uL Normal0.0-0.2MSutter Roseville Medical CenterComment on above:Performed By: #### PT, RAFFAELE, MG, CBC, CPBILC #### [facility] [address] [place] [address] Glass Presser: MDAbs. PearlImm.Granulocyte0.00 k/uLNormal0.00-0.30St. [facility] Medical CenterComment on above:Performed By: #### PT, RAFFAELE, MG, CBC, CPBILC #### [facility] [address] [place] [address] Glass Presser: Grady Kang.Neutrophil (Seg)7.71 k/uLHigh1.8-7.7St. [facility]S Medical CenterComment on above:Performed By: #### PT, RAFFAELE, MG, CBC, CPBILC #### [address] [address] Glass Presser: Pete Ward MDBasophils/100 WBC (Bld)1 %Normal0-2MSutter Roseville Medical CenterComment on above:Performed By: #### PT, RAFFAELE, MG, CBC, CPBILC #### [address] [address] Glass Presser: Pete Ward MDEosinophils (Bld) [#/Vol]0.62 10*3/uLHigh0.0-0.4 [facility] Medical CenterComment on above:Performed By: #### PT, RAFFAELE, MG, CBC, CPBILC #### [address] [address] Glass Presser: AUDRA Kangosinophils/100 WBC (Bld)6 %High1-4St. Mary[facility]S Medical CenterComment on above:Performed By: #### PT, RAFFAELE, MG, CBC, CPBILC #### [address] [address] Glass Presser: Mildred Kangture granulocytes/100 WBC (Bld)0 %Normal0 [facility]S Medical CenterComment on above:Performed By: #### PT, RAFFAELE, MG, CBC, CPBILC #### [address] [address] Glass Presser: Pete Ward MDLymphocytes (Bld) [#/Vol]1.14 10*3/uLNormal 1.0-4.8St. [facility] Medical CenterComment on above:Performed By: #### PT, RAFFAELE, MG, CBC, CPBILC #### [facility] [address] [place] [address] Glass Presser: Pete Ward MDLymphocytes/100 WBC (Bld)11 %Uyr08-26LzakvSt. Mary'S Medical CenterComment on above:Performed By: #### PT, RAFFAELE, MG, CBC, CPBILC #### [address] [address] Glass Presser: Pete Ward MDMonocytes (Bld) [#/Vol]0.83 10*3/uLHigh0.1-0.8 [facility]'S Medical CenterComment on above:Performed By: #### PT, RAFFAELE, MG, CBC, CPBILC #### [address] [address] Glass Presser: ANNA Kangonocytes/100 WBC (Bld)8 %High1-7St. Mary'S Medical CenterComment on above:Performed By: #### PT, RAFFAELE, MG, CBC, CPBILC #### [address] [address] Glass Presser: ANNA Kangorphology Luis (Bld) [Interp]ANISOCYTOSIS PRESENTNormalSt. Mary'S Medical CenterComment on above:Result Comment: HYPOCHROMIA PRESENT 1+ ELLIPTOCYTES 1+ POLYCHROMASIAPerformed By: #### PT, RAFFAELE, MG, CBC, CPBILC #### [address] [address] Glass Presser: Pete Ward MDNeutrophil (Seg)74 %Ebxq54-96JglyaSt. Mary'S Medical CenterComment on above:Performed By: #### PT, RAFFAELE, MG, CBC, CPBILC #### [facility] [address] [place] [address] Glass Presser: Pete Ward MDErythrocyte distribution width (RBC) [Ratio]21.9 %High11.8-14.4St. Mary'S Medical CenterComment on above:Performed By: #### PT, RAFFAELE, MG, CBC, CPBILC #### [facility] [address] [place] [address] Glass Presser: Pete Ward MDHematocrit (Bld) [Volume fraction]26.7 %Low 40.7-50.3Mwooster community hospitaly Desert Valley HospitalComment on above:Performed By: #### PT, RAFFAELE, MG, CBC, CPBILC #### [place] [address] Glass Presser: Pete Ward MDHemoglobin (Bld) [Mass/Vol]7.7 g/dLLow13.0-17.0 [facility]'S Medical CenterComment on above:Performed By: #### PT, RAFFAELE, MG, CBC, CPBILC #### [facility] [address] [place] [address] Glass Presser: ANNA KangCH (RBC) [Entitic mass]25.[address]Vlqcpj56.2-33.5 [facility]'S Medical CenterComment on above:Performed By: #### PT, RAFFAELE, MG, CBC, CPBILC #### [place] [address] Glass Presser: ANNA KangCHC (RBC) [Mass/Vol]28.8 g/nVEznykk87.4-34.8 [facility]S Medical CenterComment on above:Performed By: #### PT, RAFFAELE, MG, CBC, CPBILC #### [facility] [address] [place] [address] Glass Presser: ANNA KangCV (RBC) [Entitic vol]88.[address]qqa00.6-102.9 [address] [facility]'S Medical CenterComment on above:Performed By: #### PT, RAFFAELE, MG, CBC, CPBILC #### [facility] [address] [place] [address] Glass Presser: AMARI Kang Automated0.2 per [address]St[address] Mary'S Medical CenterComment on above:Performed By: #### PT, RAFFAELE, MG, CBC, CPBILC #### [facility] [address] [place] [address] Glass Presser: Lisette Kang mean volume (Bld) [Entitic vol]11.8 fL Normal8.1-13.5St. Mary'S Medical CenterComment on above:Performed By: #### PT, RAFFAELE, MG, CBC, CPBILC #### [facility] [address] [place] [address] Glass Presser: Afia Kang (Bld) [#/Vol]403 10*3/qKLjjxug811-662 St[facility]S Medical CenterComment on above:Performed By: #### PT, RAFFAELE, MG, CBC, CPBILC #### [address] [address] Glass Presser: WILBER Kang (Bld) [#/Vol]3.02 10*6/uLLow4.21-5.77St. Mary'S Medical CenterComment on above:Performed By: #### PT, RAFFAELE, MG, CBC, CPBILC #### [address] [address] Glass Presser: KYLIE Kang (Bld) [#/Vol]10.4 10*3/uLNormal3.5-11.3MSutter Roseville Medical CenterComment on above:Performed By: #### PT, RAFFAELE, MG, CBC, CPBILC #### [address] [address] Glass Presser: Arsalan Kangc Metab w/rfx MGon 73-42-7614Ljbvy gap [Moles/Vol]6 mmol/LLow9-17St. Mary'S Medical CenterComment on above: Performed By: #### PT, RAFFAELE, MG, CBC, CPBILC #### [address] [address] Glass Presser: CAILIN Kangalcium [Mass/Vol]9.8 mg/dLNormal8.6-10.4St. Mary'S Medical CenterComment on above:Performed By: #### PT, RAFFAELE, MG, CBC, CPBILC #### [place] [address] Glass Presser: CAILIN Kanghloride [Moles/Vol]98 mmol/ASwxand14-662QcwzgSt. Mary'S Medical CenterComment on above:Performed By: #### PT, RAFFAELE, MG, CBC, CPBILC #### [place] [address] Glass Presser: CAILIN KangO2 [Moles/Vol]33 mmol/FXekv53-58IvlrgSt. Mary'S Medical CenterComment on above:Performed By: #### PT, RAFFAELE, MG, CBC, CPBILC #### [address] [address] Glass Presser: CAILIN Kangreatinine [Mass/Vol]0.5 mg/dLLow0.7-1.2MSutter Roseville Medical CenterComment on above:Performed By: #### PT, RAFFAELE, MG, CBC, CPBILC #### [facility] [address] [place] [address] Glass Presser: Pete Ward MDGFR/1.73 sq M.predicted among non-blacks MDRD (S/P/Bld) [Vol rate/Area]mL/min/{1.73_m2}Normal>60St. Mary'S Medical CenterComment on above:Result Comment: These results are not intended for [...] or following therapy that affects renal tubular secretion.Performed By: #### PT, RAFFAELE, MG, CBC, CPBILC #### [facility] [address] [place] [address] Glass Presser: Pete Ward MDGlucose [Mass/Vol]127 mg/jFFzls99-11VismcSutter Roseville Medical CenterComment on above:Performed By: #### PT, RAFFAELE, MG, CBC, CPBILC #### [facility] [address] [place] [address] Glass Presser: BERTA Kangotassium [Moles/Vol]4.0 mmol/LNormal3.7-5.3 [facility]S Medical CenterComment on above:Performed By: #### PT, RAFFAELE, MG, CBC, CPBILC #### [facility] [address] [place] [address] Glass Presser: DUKE Kangodium [Moles/Vol]137 mmol/DJkdlvl465-780MkzkpSt. Mary'S Medical CenterComment on above:Performed By: #### PT, RAFFAELE, MG, CBC, CPBILC #### [facility] [address] [place] [address] Glass Presser: Pete Ward MDUrea nitrogen [Mass/Vol]17 mg/dLNormal8-23St. Mary'S Medical CenterComment on above:Performed By: #### PT, RAFFAELE, MG, CBC, CPBILC #### [facility] [address] [place] [address] Glass Presser: Pete Ward [facility] with Diffon 62-08-1063Lte. Basophil0.11 k/uL Normal0.00-0.20St. [facility]'S Medical CenterComment on above:Performed By: #### PT, RAFFAELE, MG, CBC, CPBILC #### [facility] [address] [place] [address] Glass Presser: MDAbs. PearlImm.Granulocyte0.00 k/uLNormal0.00-0.30St. [facility]'S Medical CenterComment on above:Performed By: #### PT, RAFFAELE, MG, CBC, CPBILC #### [facility] [address] [place] [address] Glass Presser: Grady Kang.Neutrophil (Seg)8.05 k/uLNormal1.50-8.10 [facility] Medical CenterComment on above:Performed By: #### PT, RAFFAELE, MG, CBC, CPBILC #### [facility] [address] [place] [address] Glass Presser: Pete Ward MDBasophils/100 WBC (Bld)1 %Normal0-2MSutter Roseville Medical CenterComment on above:Performed By: #### PT, RAFFAELE, MG, CBC, CPBILC #### [facility] [address] [place] [address] Glass Presser: Pete Ward MDEosinophils (Bld) [#/Vol]0.32 10*3/uLNormal 0.00-0.44St. [facility]'S Medical CenterComment on above:Performed By: #### PT, RAFFAELE, MG, CBC, CPBILC #### [facility] [address] [place] [address] Glass Presser: Pete Ward MDEosinophils/100 WBC (Bld)3 %Normal1-4St. Mary'S Medical CenterComment on above:Performed By: #### PT, RAFFAELE, MG, CBC, CPBILC #### [address] [address] Glass Presser: Darya Kang granulocytes/100 WBC (Bld)0 %Normal0 [facility] [facility]'S Medical CenterComment on above:Performed By: #### PT, RAFFAELE, MG, CBC, CPBILC #### [address] [address] Glass Presser: Pete Ward MDLymphocytes (Bld) [#/Vol]1.17 10*3/uLNormal 1.10-3.70St. [facility]'S Medical CenterComment on above:Performed By: #### PT, RAFFAELE, MG, CBC, CPBILC #### [address] [address] Glass Presser: Rebecca Kangmphocytes/100 WBC (Bld)11 %Aim37-91WqrodSt. Mary'S Medical CenterComment on above:Performed By: #### PT, RAFFAELE, MG, CBC, CPBILC #### [address] [address] Glass Presser: ANNA Kangonocytes (Bld) [#/Vol]0.95 10*3/uLNormal 0.10-1.20St. [facility]S Medical CenterComment on above:Performed By: #### PT, RAFFAELE, MG, CBC, CPBILC #### [address] [address] Glass Presser: ANNA Kangonocytes/100 WBC (Bld)9 %Normal3-12St. Mary'S Medical CenterComment on above:Performed By: #### PT, RAFFAELE, MG, CBC, CPBILC #### [address] [address] Glass Presser: ANNA Kangorphology Luis (Bld) [Interp]ANISOCYTOSIS PRESENTNormalSt. Mary'S Medical CenterComment on above:Result Comment: HYPOCHROMIA PRESENTPerformed By: #### PT, RAFFAELE, MG, CBC, CPBILC #### [address] [address] Glass Presser: Pete Ward MDNeutrophil (Seg)76 %Lokf56-20AxiwaSt. Mary'S Medical CenterComment on above:Performed By: #### PT, RAFFAELE, MG, CBC, CPBILC #### [facility] [address] [place] [address] Glass Presser: Pete Ward MDErythrocyte distribution width (RBC) [Ratio]22.8 %High11.8-14.4St. Mary'S Medical CenterComment on above:Performed By: #### PT, RAFFAELE, MG, CBC, CPBILC #### [facility] [address] [place] [address] Glass Presser: Pete Ward MDHematocrit (Bld) [Volume fraction]23.4 %Low 40.7-50.3[facility] HospitalComment on above:Performed By: #### PT, RAFFAELE, MG, CBC, CPBILC #### [facility] [address] [place] [address] Glass Presser: Pete Ward MDHemoglobin (Bld) [Mass/Vol]6.5 g/dLCritically low13.0-17.0St. [facility]'S Medical CenterComment on above:Performed By: #### PT, RAFFAELE, MG, CBC, CPBILC #### [facility] [address] [place] [address] Glass Presser: ANNA KangCH (RBC) [Entitic mass]24.2 pgLow25.2-33.5St. [facility]'S Medical CenterComment on above:Performed By: #### PT, RAFFAELE, MG, CBC, CPBILC #### [facility] [address] [place] [address] Glass Presser: ANNA KangCHC (RBC) [Mass/Vol]27.8 g/dLLow28.4-34.8St. [facility]'S Medical CenterComment on above:Performed By: #### PT, RAFFAELE, MG, CBC, CPBILC #### [address] [address] Glass Presser: ANNA KangCV (RBC) [Entitic vol]87.[address]digo34.6-102.9 [address] [facility] Medical CenterComment on above:Performed By: #### PT, RAFFAELE, MG, CBC, CPBILC #### [place] [address] Glass Presser: Pete Ward MDNRBC Automated0.0 per [address] [facility]'S Medical CenterComment on above:Performed By: #### PT, RAFFAELE, MG, CBC, CPBILC #### [place] [address] Glass Presser: Apolonia Kangtesujata mean volume (Bld) [Entitic vol]12.4 fL Normal8.1-13.5St. [facility]'S Medical CenterComment on above:Performed By: #### PT, RAFFAELE, MG, CBC, CPBILC #### [address] [address] Glass Presser: Apolonia Kangtelets (Bld) [#/Vol]372 10*3/wKCrncjo712-008 [facility] Medical CenterComment on above:Performed By: #### PT, RAFFAELE, MG, CBC, CPBILC #### [address] [address] Glass Presser: Pete Ward MDRBC (Bld) [#/Vol]2.69 10*6/uLLow4.21-5.77[facility] HospitalComment on above:Performed By: #### PT, RAFFAELE, MG, CBC, CPBILC #### [facility] [address] [place], [place] [phone] Glass Presser: KYLIE Kang (d) [#/Vol]10.6 10*3/uLNormal3.5-11.3[facility] HospitalComment on above:Performed By: #### PT, RAFFAELE, MG, CBC, CPBILC #### [facility] [address] [place] [address] Glass Presser: Pete Ward MDCT ABDOMEN PELVIS WO CONTRASTon [id number] ABDOMEN PELVIS WO CONTRASTEXAMINATION: CT OF THE ABDOMEN AND PELVIS WITHOUT [...] Prostate gland and seminal vesicles are unremarkable. Peritoneum/Retroperitoneum: The psoas muscles are symmetric. The abdominal aorta is normal in caliber. The inferior vena cava is unremarkable. There is no retroperitoneal or mesenteric adenopathy. Bones/Soft Tissues: The extra-abdominal soft tissues are unremarkable. IMPRESSION: Small bilateral effusions with adjacent consolidation representing atelectasis versus pneumonia. No acute abdominal or pelvic abnormality. Interpreted by: Bola Hurst MD Signed by: Bola Hurst MD 04/14/23 Final resultNoalSt. Mary'S Medical CenterHgb/Hcton [id number] (Bld) [Volume fraction]26.3 %Low40.7-50.3[facility] Comment on above:Performed By: #### PT, RAFFAELE, MG, CBC, CPBILC #### [facility] [address] [place] [address] Glass Presser: Pete Ward MDHemoglobin (Bld) [Mass/Vol]7.7 g/dLLow13.0-17.0 [facility] Medical CenterComment on above:Performed By: #### PT, RAFFAELE, MG, CBC, CPBILC #### [facility] [address] [place] [address] Glass Presser: Pete Ward MDLactate Dehydrogenaseon 18-81-6124MUV [Catalytic activity/Vol]199 U/LSpfnaj890-122HxndySt. Mary'S Medical CenterComment on above:Performed By: #### PT, RAFFAELE, MG, CBC, CPBILC #### [facility] [address] [place] [address] Glass Presser: Pete Ward MDOccult Blood, Fecalon 80-91-1944Tpxvez Blood 1 PositiveAbnormalNEGSt. Mary'S Medical CenterComment on above:Performed By: #### PT, RAFFAELE, MG, CBC, CPBILC #### [facility] [address] [place] [address] Glass Presser: DUKE Kagnpecimen 1 Date.FECESNoalSt. Mary'S Medical CenterComment on above:Performed By: #### PT, RAFFAELE, MG, CBC, CPBILC #### [facility] [address] [place] [address] [phone] Glass Presser: Raul Kang 1 Time.FECESNormalSt. Mary'S Medical CenterComment on above:Performed By: #### PT, RAFFAELE, MG, CBC, CPBILC #### [facility] [address] [place] [address] [phone] Glass Presser: RADHA Kangetic Counton [id number] Retic0.130 M/uL High0.030-0.080St. [facility]S Medical CenterComment on above:Performed By: #### PT, RAFFAELE, MG, CBC, CPBILC #### [facility] [address] [place] [address] Glass Presser: Pete Ward MDIRF44.2 %High2.7-18.3MSutter Roseville Medical CenterComment on above:Performed By: #### PT, RAFFAELE, MG, CBC, CPBILC #### [facility] [address] [place] [address] Glass Presser: RADHA Kangetic Count4.7 %High0.5-1.9St. [facility]S Medical CenterComment on above:Performed By: #### PT, RAFFAELE, MG, CBC, CPBILC #### [facility] [address] [place] [address] [phone] Glass Presser: RADHA Kangetic Hesdtvjhte26.6 pgLow28.2-35.7St. [facility]S Medical CenterComment on above:Performed By: #### PT, RAFFAELE, MG, CBC, CPBILC #### [facility] [address] [place] [address] Glass Presser: DUKE Kangurgical Pathology Reporton [id number] Pathology Report(NOTE) [id number] [facility] CENTERTango [facility] ANATOMIC PATHOLOGY [address] [place] [phone] SURGICAL PATHOLOGY CONSULTATION Patient Name: DAMI ALCALA MR#: [id number] Specimen #[id number] Procedures/Addenda PERIPHERAL BLOOD REPORT Date Ordered: 04/17/2023 [...] the electronic health record for CBC parameters ([id number], 04/14/2023, 08:20). PLATELETS: Platelets show normal morphology. LEUKOCYTES: White blood cells show normal morphology. There are no blasts. ERYTHROCYTES: Normocytic, hypochromic. Anisocytosis. Reticulocyte count 4.7%. Red blood cells show normal morphology. Note: The electronic health record is reviewed. Torres Rick M.D. Source: A: Peripheral BloodNoKettering Memorial HospitalType + Screenon [id number] + ScreenSample Expiration 04/16/2023,2359 Arm Band Number BE [id number] ABO/Rh(D) A POSITIVE Antibody Screen NEGATIVE Unit Number [id number] Blood Component Type Leukocyte Reduced Red Cell Unit Division 00 Status of Unit TRANSFUSED Transfusion Status OK TO TRANSFUSE Crossmatch Result COMPATIBLE Unit Number [id number] Blood Component Type Leukocyte Reduced Red Cell Unit Division 00 Status of Unit TRANSFUSED Transfusion Status OK TO TRANSFUSE Crossmatch Result COMPATIBLEOhioHealth Berger HospitalComment on above:Performed By: #### PT, RAFFAELE, MG, CBC, CPBILC #### [facility] [address] [place] [address] Glass Presser: SIERRA KangR ABDOMEN FOR NG/OG/NE TUBE PLACEMENTon [id number] ABDOMEN FOR NG/OG/NE TUBE PLACEMENTEXAMINATION: ONE SUPINE XRAY VIEW(S) OF THE ABDOMEN [...] Signed by: Saul Piper MD 04/14/23 Final resultNormalSt. Mary'S Medical CenterBasic Metab w/rfx MGon 61-85-3954Tehma gap [Moles/Vol]5 mmol/LLow9-17[facility] Comment on above:Performed By: #### PT, RAFFAELE, MG, CBC, CPBILC #### [facility] [address] [place] [address] Glass Presser: CAILIN Kangalcium [Mass/Vol]9.7 mg/dLNormal8.6-10.4St. [facility]S Medical CenterComment on above:Performed By: #### PT, RAFFAELE, MG, CBC, CPBILC #### [facility] [employer] [address] [place] [address] [phone] Glass Presser: CAILIN Kanghloride [Moles/Vol]99 mmol/ZIedoiy20-828NwpdvSt. Mary'S Medical CenterComment on above:Performed By: #### PT, RAFFAELE, MG, CBC, CPBILC #### [employer] [address] [place] [address] Glass Presser: Pete Ward MDCO2 [Moles/Vol]33 mmol/ZBgzp19-98GymusSt. Mary'S Medical CenterComment on above:Performed By: #### PT, RAFFAELE, MG, CBC, CPBILC #### [employer] [address] [place] [address] Glass Presser: CAILIN Kangreatinine [Mass/Vol]0.6 mg/dLLow0.7-1.2MSutter Roseville Medical CenterComment on above:Performed By: #### PT, RAFFAELE, MG, CBC, CPBILC #### [address] [address] Glass Presser: Pete Ward MDGFR/1.73 sq M.predicted among non-blacks MDRD (S/P/Bld) [Vol rate/Area]mL/min/{1.73_m2}Normal>60St. [facility]'S Medical CenterComment on above:Result Comment: These results are not intended for [...] or following therapy that affects renal tubular secretion.Performed By: #### PT, RAFFAELE, MG, CBC, CPBILC #### [facility] [address] [place] [address] Glass Presser: Pete Ward MDGlucose [Mass/Vol]117 mg/aXOcun35-13QxtveSutter Roseville Medical CenterComment on above:Performed By: #### PT, RAFFAELE, MG, CBC, CPBILC #### [facility] [address] [place] [address] Glass Presser: BERTA Kangotassium [Moles/Vol]4.6 mmol/LNormal3.7-5.3 [facility] Medical CenterComment on above:Performed By: #### PT, RAFFAELE, MG, CBC, CPBILC #### [facility] [address] [place] [address] Glass Presser: DUKE Kangodium [Moles/Vol]137 mmol/BVkpgcn621-023QkxgwSt. Mary'S Medical CenterComment on above:Performed By: #### PT, RAFFAELE, MG, CBC, CPBILC #### [address] [address] Glass Presser: Trudi Kang nitrogen [Mass/Vol]18 mg/dLNormal8-23St. [facility]'S Medical CenterComment on above:Performed By: #### PT, RAFFAELE, MG, CBC, CPBILC #### [address] [address] Glass Presser: Pete Ward [facility] with Diffon [id number]. Basophil0.08 k/uL Normal0.00-0.20St. [facility]S Medical CenterComment on above:Performed By: #### PT, RAFFAELE, MG, CBC, CPBILC #### [address] [address] Glass Presser: Grady Kang.Imm.Granulocyte0.08 k/uLNormal0.00-0.30St. [facility] Medical CenterComment on above:Performed By: #### PT, RAFFAELE, MG, CBC, CPBILC #### [address] [address] Glass Presser: Grady Kang.Neutrophil (Seg)6.39 k/uLNormal1.50-8.10 [facility] Medical CenterComment on above:Performed By: #### PT, RAFFAELE, MG, CBC, CPBILC #### [address] [address] Glass Presser: Pete Ward MDBasophils/100 WBC (Bld)1 %Normal0-2MSutter Roseville Medical CenterComment on above:Performed By: #### PT, RAFFAELE, MG, CBC, CPBILC #### [address] [address] Glass Presser: Pete Ward MDEosinophils (Bld) [#/Vol]0.34 10*3/uLNormal 0.00-0.44St. [facility]S Medical CenterComment on above:Performed By: #### PT, RAFFAELE, MG, CBC, CPBILC #### [facility] [address] [place] [address] Glass Presser: Pete Ward MDEosinophils/100 WBC (Bld)4 %Normal1-4St. [facility] Medical CenterComment on above:Performed By: #### PT, RAFFAELE, MG, CBC, CPBILC #### [facility] [address] [place] [address] Glass Presser: Pete Ward MDImmature granulocytes/100 WBC (Bld)1 %Fqad3UrqrmSt. Mary'S Medical CenterComment on above:Performed By: #### PT, RAFFAELE, MG, CBC, CPBILC #### [facility] [address] [place] [address] Glass Presser: Pete Ward MDLymphocytes (Bld) [#/Vol]0.92 10*3/uLLow 1.10-3.70St. [facility]S Medical CenterComment on above:Performed By: #### PT, RAFFAELE, MG, CBC, CPBILC #### [facility] [address] [place] [address] Glass Presser: Pete Ward MDLymphocytes/100 WBC (Bld)11 %Klx44-09FptarSt. Mary'S Medical CenterComment on above:Performed By: #### PT, RAFFAELE, MG, CBC, CPBILC #### [facility] [address] [place] [address] Glass Presser: ANNA Kangonocytes (Bld) [#/Vol]0.59 10*3/uLNormal 0.10-1.20St. [facility] Medical CenterComment on above:Performed By: #### PT, RAFFAELE, MG, CBC, CPBILC #### [facility] [address] [place] [address] Glass Presser: ANNA Kangonocytes/100 WBC (Bld)7 %Normal3-12St. [facility]S Medical CenterComment on above:Performed By: #### PT, RAFFAELE, MG, CBC, CPBILC #### [address] [address] Glass Presser: ANNA Kangorphology Luis (Bld) [Interp]ANISOCYTOSIS PRESENTNormalSt. Mary'S Medical CenterComment on above:Result Comment: HYPOCHROMIA PRESENTPerformed By: #### PT, RAFFAELE, MG, CBC, CPBILC #### [address] [address] Glass Presser: Pete Ward MDNeutrophil (Seg)76 %Wlxz09-54CxvupSt. Mary'S Medical CenterComment on above:Performed By: #### PT, RAFFAELE, MG, CBC, CPBILC #### [facility] [address] [place] [address] Glass Presser: Pete Ward MDErythrocyte distribution width (RBC) [Ratio]24.9 %High11.8-14.4St. [facility]S Medical CenterComment on above:Performed By: #### PT, RAFFAELE, MG, CBC, CPBILC #### [facility] [address] [place] [address] Glass Presser: Pete Ward MDHematocrit (Bld) [Volume fraction]22.1 %Low 40.7-50.3Mwooster community hospitaly Desert Valley HospitalComment on above:Performed By: #### PT, RAFFAELE, MG, CBC, CPBILC #### [facility] [address] [place] [address] Glass Presser: Pete Ward MDHemoglobin (Bld) [Mass/Vol]6.0 g/dLCritically low13.0-17.0St. [facility] Medical CenterComment on above:Performed By: #### PT, RAFFAELE, MG, CBC, CPBILC #### [facility] [address] [place] [address] [phone] Glass Presser: ANNA KangCH (RBC) [Entitic mass]22.8 pgLow25.2-33.5St. [facility]S Medical CenterComment on above:Performed By: #### PT, RAFFAELE, MG, CBC, CPBILC #### [place] [address] Glass Presser: ANNA KangCHC (RBC) [Mass/Vol]27.1 g/dLLow28.4-34.8St. [facility]S Medical CenterComment on above:Performed By: #### PT, RAFFAELE, MG, CBC, CPBILC #### [facility] [address] [place] [address] Glass Presser: ANNA KangCV (RBC) [Entitic vol]84.[address]16.6-102.9 [address] Medical CenterComment on above:Performed By: #### PT, RAFFAELE, MG, CBC, CPBILC #### [place] [address] Glass Presser: Pete Ward MDNRBC Automated0.0 per [address] [facility]'S Medical CenterComment on above:Performed By: #### PT, RAFFAELE, MG, CBC, CPBILC #### [facility] [address] [place] [address] Glass Presser: BERTA Kanglatelet mean volume (Bld) [Entitic vol]11.9 fL Normal8.1-13.5St. [facility]S Medical CenterComment on above:Performed By: #### PT, RAFFAELE, MG, CBC, CPBILC #### [facility] [address] [place] [address] Glass Presser: Afia Kang ([facility]) [#/Vol]331 10*3/gEPidwjm150-021 St[facility] Medical CenterComment on above:Performed By: #### PT, RAFFAELE, MG, CBC, CPBILC #### [facility] [address] [place] [address] Glass Presser: WILBER Kang ([facility]) [#/Vol]2.63 10*6/uLLow4.21-5.77St. [facility]S Medical CenterComment on above:Performed By: #### PT, RAFFAELE, MG, CBC, CPBILC #### [address] [address] Glass Presser: KYLIE Kang ([facility]) [#/Vol]8.4 10*3/uLNormal3.5-11.3MSutter Roseville Medical CenterComment on above:Performed By: #### PT, RAFFAELE, MG, CBC, CPBILC #### [facility] [address] [place] [address] Glass Presser: Pete Ward MDExtra Yellow Tubeon 52-58-5314Urqjs Yellow Tube NormalSt. Mary'S Medical CenterComment on above:Performed By: #### PT, RAFFAELE, MG, CBC, CPBILC #### [facility] [address] [place], [place] [address] Glass Presser: Pete Ward MDHgb/Hcton 26-10-1218Dwkokhjtze ([facility]) [Volume fraction]24.3 %Low40.7-50.3MSutter Roseville Medical CenterComment on above: Performed By: #### PT, RAFFAELE, MG, CBC, CPBILC #### [facility] [address] [place] [address] Glass Presser: Pete Ward MDHemoglobin (Bld) [Mass/Vol]7.2 g/dLLow13.0-17.0 [facility] Medical CenterComment on above:Performed By: #### PT, RAFFAELE, MG, CBC, CPBILC #### [place] [address] Glass Presser: Pete Ward MDHematocrit (Bld) [Volume fraction]21.8 %Low 40.7-50.3Mwooster community hospitaly Desert Valley HospitalComment on above:Performed By: #### ZAC, BMP #### [place] [address] Glass Presser: Ptee Ward MDHemoglobin (Bld) [Mass/Vol]6.2 g/dLCritically low13.0-17.0St. [facility] Medical CenterComment on above:Performed By: #### CBC, BMP #### [place] [address] Glass Presser: Pete Ward MDBasic Metab w/rfx MGon 96-48-3220Rqdkh gap [Moles/Vol]6 mmol/LLow9-17St. [facility]S Medical CenterComment on above: Performed By: #### PT, RAFFAELE, MG, CBC, CPBILC #### [place] [address] Glass Presser: CAILIN Kangalcium [Mass/Vol]9.3 mg/dLNormal8.6-10.4St. [facility]S Medical CenterComment on above:Performed By: #### PT, RAFFAELE, MG, CBC, CPBILC #### [place] [address] Glass Presser: Pete Ward MDChloride [Moles/Vol]98 mmol/HQcbhtu28-677FvpuwSt. Mary'S Medical CenterComment on above:Performed By: #### PT, RAFFAELE, MG, CBC, CPBILC #### [facility] [address] [place] [address] Glass Presser: CAILIN KangO2 [Moles/Vol]33 mmol/AZhae80-68EfiwmSt. Mary'S Medical CenterComment on above:Performed By: #### PT, RAFFAELE, MG, CBC, CPBILC #### [facility] [address] [place] [address] Glass Presser: CAILIN Kangreatinine [Mass/Vol]0.5 mg/dLLow0.7-1.2MSutter Roseville Medical CenterComment on above:Performed By: #### PT, RAFFAELE, MG, CBC, CPBILC #### [facility] [address] [place] [address] Glass Presser: Pete Ward MDGFR/1.73 sq M.predicted among non-blacks MDRD (S/P/Bld) [Vol rate/Area]mL/min/{1.73_m2}Normal>60St. [facility]'S Medical CenterComment on above:Result Comment: These results are not intended for [...] or following therapy that affects renal tubular secretion.Performed By: #### PT, RAFFAELE, MG, CBC, CPBILC #### [facility] [address] [place] [address] Glass Presser: Pete Ward MDGlucose [Mass/Vol]91 mg/dGPgvqlz71-97OrrgsSutter Roseville Medical CenterComment on above:Performed By: #### PT, RAFFAELE, MG, CBC, CPBILC #### [facility] [address] [place] [address] Glass Presser: BERTA Kangotassium [Moles/Vol]4.6 mmol/LNormal3.7-5.3 [facility] Medical CenterComment on above:Performed By: #### PT, RAFFAELE, MG, CBC, CPBILC #### [address] [address] Glass Presser: DUKE Kangodium [Moles/Vol]137 mmol/PIiwkfv779-374MjcbpSt. Mary'S Medical CenterComment on above:Performed By: #### PT, RAFFAELE, MG, CBC, CPBILC #### [place] [address] Glass Presser: Pete Ward MDUrea nitrogen [Mass/Vol]11 mg/dLNormal8-23St. [facility]S Medical CenterComment on above:Performed By: #### PT, RAFFAELE, MG, CBC, CPBILC #### [place] [address] Glass Presser: Pete Ward [facility] with Diffon 65-66-1313Fqg. Basophil0.00 k/uL Normal0.0-0.2MSutter Roseville Medical CenterComment on above:Performed By: #### PT, RAFFAELE, MG, CBC, CPBILC #### [place] [address] Glass Presser: MDAbs. PearlImm.Granulocyte0.00 k/uLNormal0.00-0.30St. [facility]S Medical CenterComment on above:Performed By: #### PT, RAFFAELE, MG, CBC, CPBILC #### [facility] [address] [place] [address] Glass Presser: MDAbs. PearlNeutrophil (Seg)5.10 k/uLNormal1.8-7.7St. [facility]S Medical CenterComment on above:Performed By: #### PT, RAFFAELE, MG, CBC, CPBILC #### [facility] [address] [place] [address] Glass Presser: Pete Ward MDBasophils/100 WBC (Bld)0 %Normal0-2MSutter Roseville Medical CenterComment on above:Performed By: #### PT, RAFFAELE, MG, CBC, CPBILC #### [facility] [address] [place] [address] Glass Presser: Pete Ward MDEosinophils (Bld) [#/Vol]0.38 10*3/uLNormal 0.0-0.4St. [facility]S Medical CenterComment on above:Performed By: #### PT, RAFFAELE, MG, CBC, CPBILC #### [address] [address] Glass Presser: Pete Ward MDEosinophils/100 WBC (Bld)6 %High1-4St. [facility]S Medical CenterComment on above:Performed By: #### PT, RAFFAELE, MG, CBC, CPBILC #### [address] [address] Glass Presser: Pete Ward MDImmature granulocytes/100 WBC (Bld)0 %Normal0 [facility]S Medical CenterComment on above:Performed By: #### PT, RAFFAELE, MG, CBC, CPBILC #### [facility] [address] [place] [address] Glass Presser: Pete Ward MDLymphocytes (Bld) [#/Vol]0.63 10*3/uLLow1.0-4.8 [facility] Medical CenterComment on above:Performed By: #### PT, RAFFAELE, MG, CBC, CPBILC #### [facility] [address] [place] [address] Glass Presser: Rebecca Kangmphocytes/100 WBC (Bld)10 %Vil09-93IzfeqSt. Mary'S Medical CenterComment on above:Performed By: #### PT, RAFFAELE, MG, CBC, CPBILC #### [address] [address] Glass Presser: Pete Ward MDMonocytes (Bld) [#/Vol]0.19 10*3/uLNormal0.1-0.8 [facility] Medical CenterComment on above:Performed By: #### PT, RAFFAELE, MG, CBC, CPBILC #### [address] [address] Glass Presser: Pete Ward MDMonocytes/100 WBC (Bld)3 %Normal1-7St. [facility]S Medical CenterComment on above:Performed By: #### PT, RAFFAELE, MG, CBC, CPBILC #### [facility] [address] [place] [address] Glass Presser: ANNA Kangorphology Luis (Bld) [Interp]ANISOCYTOSIS PRESENTNormalSt. Mary'S Medical CenterComment on above:Result Comment: HYPOCHROMIA PRESENTPerformed By: #### PT, RAFFAELE, MG, CBC, CPBILC #### [place] [address] Glass Presser: Pete Ward MDNeutrophil (Seg)81 %Ceik31-01XhsomSt. Mary'S Medical CenterComment on above:Performed By: #### PT, RAFFAELE, MG, CBC, CPBILC #### [facility] [address] [place] [address] Glass Presser: Pete Ward MDErythrocyte distribution width (RBC) [Ratio]25.2 %High11.8-14.4St. [facility]'S Medical CenterComment on above:Performed By: #### PT, RAFFAELE, MG, CBC, CPBILC #### [facility] [address] [place] [address] [phone] Glass Presser: Pete Ward MDHematocrit (Bld) [Volume fraction]26.0 %Low 40.7-50.3MSutter Roseville Medical CenterComment on above:Performed By: #### PT, RAFFAELE, MG, CBC, CPBILC #### [address] [address] Glass Presser: Pete Ward MDHemoglobin (Bld) [Mass/Vol]7.1 g/dLLow13.0-17.0 [facility] Medical CenterComment on above:Performed By: #### PT, RAFFAELE, MG, CBC, CPBILC #### [place] [address] Glass Presser: ANNA KangCH (RBC) [Entitic mass]23.1 pgLow25.2-33.5St. [facility]'S Medical CenterComment on above:Performed By: #### PT, RAFFAELE, MG, CBC, CPBILC #### [place] [address] Glass Presser: ANNA KangCHC (RBC) [Mass/Vol]27.3 g/dLLow28.4-34.8St. [facility]S Medical CenterComment on above:Performed By: #### PT, RAFFAELE, MG, CBC, CPBILC #### [place] [address] Glass Presser: ANNA KangCV (RBC) [Entitic vol]84.7 kXSfsaqz78.6-102.9 [facility] Medical CenterComment on above:Performed By: #### PT, RAFFAELE, MG, CBC, CPBILC #### [address] [address] Glass Presser: Pete Ward MDNRBC Automated0.0 per [address] [facility]'S Medical CenterComment on above:Performed By: #### PT, RAFFAELE, MG, CBC, CPBILC #### [facility] [address] [place] [address] Glass Presser: Lisette Kang mean volume (Bld) [Entitic vol]12.4 fL Normal8.1-13.5St. [facility]'S Medical CenterComment on above:Performed By: #### PT, RAFFAELE, MG, CBC, CPBILC #### [facility] [address] [place] [address] Glass Presser: Afia Kang (Bld) [#/Vol]256 10*3/wYQhnuoo220-285 [facility] Medical CenterComment on above:Performed By: #### PT, RAFFAELE, MG, CBC, CPBILC #### [address] [address] Glass Presser: RADHA Kang (Bld) [#/Vol]3.07 10*6/uLLow4.21-5.77St. [facility]S Medical CenterComment on above:Performed By: #### PT, RAFFAELE, MG, CBC, CPBILC #### [address] [address] Glass Presser: JUSTINE Kang (Bld) [#/Vol]6.3 10*3/uLNormal3.5-11.3MSutter Roseville Medical CenterComment on above:Performed By: #### PT, RAFFAELE, MG, CBC, CPBILC #### [address] [address] Glass Presser: CAILIN Kang with Diffon 36-43-3823Fmc. Basophil0.06 k/uL Normal0.00-0.20St. [facility]S Medical CenterComment on above:Performed By: #### CDP, CMPX #### [address] [address] Glass Presser: MDAbs. PearlImm.Granulocyte0.00 k/uLNormal0.00-0.30St. [facility]S Medical CenterComment on above:Performed By: #### CDP, CMPX #### [address] [address] Glass Presser: Grady Kang.Neutrophil (Seg)4.81 k/uLNormal1.50-8.10 [facility] Medical CenterComment on above:Performed By: #### CDP, CMPX #### [address] [address] Glass Presser: Pete Ward MDBasophils/100 WBC (Bld)1 %Normal0-2MSutter Roseville Medical CenterComment on above:Performed By: #### CDP, CMPX #### [address] [address] Glass Presser: Pete Ward MDEosinophils (Bld) [#/Vol]0.19 10*3/uLNormal 0.00-0.44St. [facility]S Medical CenterComment on above:Performed By: #### CDP, CMPX #### [address] [address] Glass Presser: Pete Ward MDEosinophils/100 WBC (Bld)3 %Normal1-4St. [facility] Medical CenterComment on above:Performed By: #### CDP, CMPX #### [address] [address] Glass Presser: Mildred Kangture granulocytes/100 WBC (Bld)0 %Normal0 [facility] Medical CenterComment on above:Performed By: #### CDP, CMPX #### [address] [address] Glass Presser: Pete Ward MDLymphocytes (Bld) [#/Vol]0.83 10*3/uLLow 1.10-3.70St. [facility]S Medical CenterComment on above:Performed By: #### CDP, CMPX #### [facility] [address] [place] [address] Glass Presser: Pete Ward MDLymphocytes/100 WBC (Bld)13 %Exr95-83CgdfaSt. Mary'S Medical CenterComment on above:Performed By: #### CDP, CMPX #### [facility] [address] [place] [address] Glass Presser: ANNA Kangonocytes (Bld) [#/Vol]0.51 10*3/uLNormal 0.10-1.20St. [facility] Medical CenterComment on above:Performed By: #### CDP, CMPX #### [facility] [address] [place] [address] Glass Presser: ANNA Kangonocytes/100 WBC (Bld)8 %Normal3-12St. [facility]S Medical CenterComment on above:Performed By: #### CDP, CMPX #### [address] [address] Glass Presser: ANNA Kangorphology Luis (Bld) [Interp]ANISOCYTOSIS PRESENTNormalSt. Mary'S Medical CenterComment on above:Result Comment: HYPOCHROMIA PRESENTPerformed By: #### CDP, CMPX #### [facility] [address] [place] [address] Glass Presser: Pete Ward MDNeutrophil (Seg)75 %Qonc07-09GboidSt. Mary'S Medical CenterComment on above:Performed By: #### CDP, CMPX #### [facility] [address] [place] [address] Glass Presser: Pete Ward MDErythrocyte distribution width (RBC) [Ratio]24.7 %High11.8-14.4St. [facility]S Medical CenterComment on above:Performed By: #### CDP, CMPX #### [address] [address] Glass Presser: Pete Ward MDHematocrit (Bld) [Volume fraction]26.9 %Low 40.7-50.3MSutter Roseville Medical CenterComment on above:Performed By: #### CDP, CMPX #### [place] [address] Glass Presser: Pete Ward MDHemoglobin (Bld) [Mass/Vol]7.2 g/dLLow13.0-17.0 [facility] Medical CenterComment on above:Performed By: #### CDP, CMPX #### [place] [address] Glass Presser: ANNA KangCH (RBC) [Entitic mass]22.7 pgLow25.2-33.5St. [facility]S Medical CenterComment on above:Performed By: #### CDP, CMPX #### [address] [address] Glass Presser: ANNA KangCHC (RBC) [Mass/Vol]26.8 g/dLLow28.4-34.8St. [facility]S Medical CenterComment on above:Performed By: #### CDP, CMPX #### [address] [address] Glass Presser: ANNA KangCV (RBC) [Entitic vol]84.9 [address]MGnilai32.6-102.9 [address] Medical CenterComment on above:Performed By: #### CDP, CMPX #### [address] [address] Glass Presser: MIKEL KangBC Automated0.0 per [address] [facility]S Medical CenterComment on above:Performed By: #### CDP, CMPX #### [facility] [address] [place] [address] Glass Presser: Lisette Kang mean volume (Bld) [Entitic vol]11.4 fL Normal8.1-13.5St. [facility]S Medical CenterComment on above:Performed By: #### CDP, CMPX #### [address] [address] Glass Presser: Apolonia Kangtekeyon (Bld) [#/Vol]230 10*3/cNZwtgsv885-353 [facility] Medical CenterComment on above:Performed By: #### VILMA, CMPX #### [address] [address] Glass Presser: WILBER Kang (Bld) [#/Vol]3.17 10*6/uLLow4.21-5.77St. [facility]S Medical CenterComment on above:Performed By: #### VILMA, CMPX #### [address] [address] Glass Presser: KYLIE Kang (Bld) [#/Vol]6.4 10*3/uLNormal3.5-11.3MSutter Roseville Medical CenterComment on above:Performed By: #### CDP, CMPX #### [address] [address] Glass Presser: CAILIN Kangjordan valley [facility] Metabolic Pr/rfx MGon 37-99-4525Ggosjgc [Mass/Vol]2.5 g/dLLow3.5-5.2[facility] HospitalComment on above: Performed By: #### CDP, CMPX #### [facility] [address] [place] [address] Glass Presser: Pete Ward MDAlbumin/Glob Ratio0.7Low1.0-2.5St. [facility] Medical CenterComment on above:Performed By: #### CDP, CMPX #### [address] [address] Glass Presser: Pete Ward MDAlkaline Phos82 U/NTvyxmh60-063PhxohSt. Mary'S Medical CenterComment on above:Performed By: #### CDP, CMPX #### [address] [address] Glass Presser: Pete Ward MDALT [Catalytic activity/Vol]12 U/LNormal5-41 [facility] CenterComment on above:Performed By: #### CDP, CMPX #### [address] [address] Glass Presser: Pete Ward MDAnion gap [Moles/Vol]6 mmol/LLow9-17St. [facility] Medical CenterComment on above:Performed By: #### CDP, CMPX #### [address] [address] Glass Presser: Pete Ward MDAST [Catalytic activity/Vol]23 U/LNormal<40St. [facility] Medical CenterComment on above:Performed By: #### CDP, CMPX #### [address] [address] Glass Presser: Pete Ward MDBilirubin [Mass/Vol]0.3 mg/dLNormal0.3-1.2MSutter Roseville Medical CenterComment on above:Performed By: #### CDP, CMPX #### [address] [address] Glass Presser: Pete Ward MDCalcium [Mass/Vol]9.0 mg/dLNormal8.6-10.4St. [facility] Medical CenterComment on above:Performed By: #### CDP, CMPX #### [facility] [address] [place] [address] Glass Presser: CAILIN Kanghloride [Moles/Vol]98 mmol/JPrkhrv36-859VefypSt. Mary'S Medical CenterComment on above:Performed By: #### CDP, CMPX #### [facility] [address] [place] [address] Glass Presser: Pete Ward MDCO2 [Moles/Vol]34 mmol/PRrro90-91NzzlpSt. Mary'S Medical CenterComment on above:Performed By: #### CDP, CMPX #### [facility] [address] [place] [address] Glass Presser: CAILIN Kangreatinine [Mass/Vol]0.5 mg/dLLow0.7-1.2MSutter Roseville Medical CenterComment on above:Performed By: #### VILMA, CMPX #### [facility] [address] [place] [address] Glass Presser: Pete Ward MDGFR/1.73 sq M.predicted among non-blacks MDRD (S/P/Bld) [Vol rate/Area]mL/min/{1.73_m2}Normal>60St. [facility] Medical CenterComment on above:Result Comment: These results are not intended for [...] or following therapy that affects renal tubular secretion.Performed By: #### CDP, CMPX #### [facility] [address] [place] [address] Glass Presser: Pete Ward MDGlucose [Mass/Vol]114 mg/mMUtgm96-46CxahwSutter Roseville Medical CenterComment on above:Performed By: #### CDP, CMPX #### [address] [address] Glass Presser: Pete Ward, MDPotassium [Moles/Vol]3.9 mmol/LNormal3.7-5.3 [facility] CenterComment on above:Performed By: #### CDP, CMPX #### [address] [address] Glass Presser: Pete Ward, MDProtein [Mass/Vol]5.9 g/dLLow6.4-8.3MSutter Roseville Medical CenterComment on above:Performed By: #### CDP, CMPX #### [address] [address] Glass Presser: Pete Ward MDSodium [Moles/Vol]138 mmol/XYesnjr820-263KfoziSt. Mary'S Medical CenterComment on above:Performed By: #### CDP, CMPX #### [address] [address] Glass Presser: Pete Ward MDUrea nitrogen [Mass/Vol]11 mg/dLNormal8-23St. [facility] Medical CenterComment on above:Performed By: #### CDP, CMPX #### [place] [address] Glass Presser: Pete Ward MDMA MODIFIED BARIUM SWALLOW W VIDEOon 04-09-2023 [place] MODIFIED BARIUM SWALLOW W VIDEOEXAMINATION: MODIFIED BARIUM SWALLOW WAS PERFORMED IN CONJUNCTION WITH SPEECH PATHOLOGY SERVICES TECHNIQUE: Under fluoroscopic evaluation cineradiography/videoradiography recordings were performed in conjunction with the speech-language pathologist (DOG RAISER). Various liquid, solid and/or semi-solid barium preparations were used to assess swallowing function. FLUOROSCOPY DOSE AND TYPE: Radiation Exposure Index: DAP 7.957oZuqv4, COMPARISON: None HISTORY: ORDERING SYSTEM PROVIDED HISTORY: [...] Sp Bonilla MD 04/09/23 Edited Result - FINALNormalSt. Mary'S Medical CenterBasic Metabolic Prof on 93-63-3453Czrxk gap [Moles/Vol]5 mmol/LLow9-17St. [facility] Medical CenterComment on above:Performed By: #### PT, RAFFAELE, MG, CBC, CPBILC #### [facility] [employer] [address] [place] [address] Glass Presser: Pete Ward MDCalcium [Mass/Vol]8.8 mg/dLNormal8.6-10.4St. [facility] Medical CenterComment on above:Performed By: #### PT, RAFFAELE, MG, CBC, CPBILC #### [facility] [address] [place] [address] [phone] Glass Presser: Pete Ward MDChloride [Moles/Vol]100 mmol/PIwpmxy20-032LyniySt. Mary'S Medical CenterComment on above:Performed By: #### PT, RAFFAELE, MG, CBC, CPBILC #### [facility] [address] [place], [place] [phone] Glass Presser: Pete Ward MDCO2 [Moles/Vol]33 mmol/QYkcr08-27NfnfjSt. Mary'S Medical CenterComment on above:Performed By: #### PT, RAFFAELE, MG, CBC, CPBILC #### [employer] [address] [place] [address] Glass Presser: Pete Ward MDCreatinine [Mass/Vol]0.4 mg/dLLow0.7-1.2[facility] Medical CenterComment on above:Performed By: #### PT, RAFFAELE, MG, CBC, CPBILC #### [facility] [address] [place] [address] Glass Presser: Pete Ward MDGFR/1.73 sq M.predicted among non-blacks MDRD (S/P/Bld) [Vol rate/Area]mL/min/{1.73_m2}Normal>60St. [facility]S Medical CenterComment on above:Result Comment: These results are not intended for [...] or following therapy that affects renal tubular secretion.Performed By: #### PT, RAFFAELE, MG, CBC, CPBILC #### [facility] [address] [place] [address] Glass Presser: Pete Ward MDGlucose [Mass/Vol]131 mg/iBDcgm04-24GsitoSutter Roseville Medical CenterComment on above:Performed By: #### PT, RAFFAELE, MG, CBC, CPBILC #### [facility] [address] [place] [address] Glass Presser: BERTA Kangotassium [Moles/Vol]3.6 mmol/LLow3.7-5.3MSutter Roseville Medical CenterComment on above:Performed By: #### PT, RAFFAELE, MG, CBC, CPBILC #### [employer] [address] [place] [address] Glass Presser: DUKE Kangodium [Moles/Vol]138 mmol/TBtukbh593-942KgbckSt. Mary'S Medical CenterComment on above:Performed By: #### PT, RAFFAELE, MG, CBC, CPBILC #### [facility] [address] [place] [address] Glass Presser: Pete Ward MDUrea nitrogen [Mass/Vol]10 mg/dLNormal8-23St. [facility] Medical CenterComment on above:Performed By: #### PT, RAFFAELE, MG, CBC, CPBILC #### [facility] [address] [place] [address] [phone] Glass Presser: CAILIN Kangalma 74-47-5342Mqjdjmcm, Fluoresc.226 k/uL Kdnids874-504BwfyvSt. Mary'S Medical CenterComment on above:Performed By: #### PT, RAFFAELE, MG, CBC, CPBILC #### [place] [address] Glass Presser: BERTA KangLT, Immature Fract.9.2 %Normal1.1-10.3MSutter Roseville Medical CenterComment on above:Performed By: #### PT, RAFFAELE, MG, CBC, CPBILC #### [place] [address] Glass Presser: Pete Ward MDErythrocyte distribution width (RBC) [Ratio]24.4 %High11.8-14.4St. [facility]S Medical CenterComment on above:Performed By: #### PT, RAFFAELE, MG, CBC, CPBILC #### [place] [address] Glass Presser: Pete Ward MDHematocrit (Bld) [Volume fraction]26.5 %Low 40.7-50.3MSutter Roseville Medical CenterComment on above:Performed By: #### PT, RAFFAELE, MG, CBC, CPBILC #### [place] [address] Glass Presser: Pete Ward MDHemoglobin (Bld) [Mass/Vol]7.2 g/dLLow13.0-17.0 [facility] Medical CenterComment on above:Performed By: #### PT, RAFFAELE, MG, CBC, CPBILC #### [address] [address] Glass Presser: ANNA KangCH (RBC) [Entitic mass]23.0 pgLow25.2-33.5St. [facility]S Medical CenterComment on above:Performed By: #### PT, RAFFAELE, MG, CBC, CPBILC #### [address] [address] Glass Presser: ANNA KangCHC (RBC) [Mass/Vol]27.2 g/dLLow28.4-34.8St. [facility]S Medical CenterComment on above:Performed By: #### PT, RAFFAELE, MG, CBC, CPBILC #### [place] [address] Glass Presser: ANNA KangCV (RBC) [Entitic vol]84.[address]47.6-102.9 [address] Medical CenterComment on above:Performed By: #### PT, RAFFAELE, MG, CBC, CPBILC #### [place] [address] Glass Presser: Pete Ward MDNRBC Automated0.0 per [address] [facility]S Medical CenterComment on above:Performed By: #### PT, RAFFAELE, MG, CBC, CPBILC #### [place] [address] Glass Presser: BERTA Kanglatelet CountSee Reflexed IPF ResultNormal 138-453St. Mary'S Medical CenterComment on above:Performed By: #### PT, RAFFAELE, MG, CBC, CPBILC #### [address] [address] Glass Presser: RADHA KangBC (Bld) [#/Vol]3.13 10*6/uLLow4.21-5.77St. [facility] Medical CenterComment on above:Performed By: #### PT, RAFFAELE, MG, CBC, CPBILC #### [address] [address] Glass Presser: KYLIE Kang (d) [#/Vol]5.8 10*3/uLNormal3.5-11.3MSutter Roseville Medical CenterComment on above:Performed By: #### PT, RAFFAELE, MG, CBC, CPBILC #### [address] [address] Glass Presser: Shan Kang Profileon 77-87-0969Mhsibhn [Mass/Vol]2.3 g/dLLow3.5-5.2MSutter Roseville Medical CenterComment on above:Performed By: #### PT, RAFFAELE, MG, CBC, CPBILC #### [address] [address] Glass Presser: Pete Ward MDAlbumin/Glob Ratio0.7Low1.0-2.5St. [facility]S Medical CenterComment on above:Performed By: #### PT, RAFFAELE, MG, CBC, CPBILC #### [address] [address] Glass Presser: Kandy Kangline Phos75 U/BQkwdhj83-767IwjbfSt. Mary'S Medical CenterComment on above:Performed By: #### PT, RAFFAELE, MG, CBC, CPBILC #### [facility] [address] [place] [address] Glass Presser: Pete Ward MDALT [Catalytic activity/Vol]10 U/LNormal5-41 [facility] Medical CenterComment on above:Performed By: #### PT, RAFFAELE, MG, CBC, CPBILC #### [facility] [address] [place] [address] Glass Presser: Pete Ward MDAST [Catalytic activity/Vol]22 U/LNormal<40St. [facility]S Medical CenterComment on above:Performed By: #### PT, RAFFAELE, MG, CBC, CPBILC #### [facility] [address] [place] [address] Glass Presser: Pete Ward MDBilirubin [Mass/Vol]0.2 mg/dLLow0.3-1.2MSutter Roseville Medical CenterComment on above:Performed By: #### PT, RAFFAELE, MG, CBC, CPBILC #### [facility] [address] [place] [address] Glass Presser: Pete Ward MDBilirubin, Indirect0.1 mg/dLNormal0.0-1.0St. [facility] Medical CenterComment on above:Performed By: #### PT, RAFFAELE, MG, CBC, CPBILC #### [facility] [address] [place] [address] Glass Presser: Pete Ward MDBilirubin.indirect [Mass/Vol]0.1 mg/dLNormal<0.3 [facility] Medical CenterComment on above:Performed By: #### PT, RAFFAELE, MG, CBC, CPBILC #### [address] [address] Glass Presser: Pete Ward MDProtein [Mass/Vol]5.5 g/dLLow6.4-8.3MSutter Roseville Medical CenterComment on above:Performed By: #### PT, RAFFAELE, MG, CBC, CPBILC #### [facility] [address] [place] [address] Glass Presser: NANNETTE Kang CHEST PORTABLEon [id number] CHEST PORTABLE EXAMINATION: ONE XRAY VIEW OF [...] Signed by: Ajith Russell MD 04/08/23 Final resultNormalSt. Mary'S Medical CenterBasic Metabolic Profon 98-05-4857Ivysy gap [Moles/Vol]9 mmol/LNormal9-17St. Mary'S Medical CenterComment on above:Performed By: #### CBC, BMP #### [facility] [address] [place] [address] Glass Presser: CAILIN Kangalcium [Mass/Vol]8.8 mg/dLNormal8.6-10.4St. Mary'S Medical CenterComment on above:Performed By: #### CBC, BMP #### [facility] [address] [place] [address] Glass Presser: CAILIN Kanghloride [Moles/Vol]97 mmol/LPmk58-229EnfxiSt. Mary'S Medical CenterComment on above:Performed By: #### CBC, BMP #### [facility] [address] [place] [address] Glass Presser: Pete Ward MDCO2 [Moles/Vol]30 mmol/WNiluss10-39WcyzzSt. Mary'S Medical CenterComment on above:Performed By: #### CBC, BMP #### [facility] [address] [place] [address] Glass Presser: Pete Wadr MDCreatinine [Mass/Vol]0.5 mg/dLLow0.7-1.2MSutter Roseville Medical CenterComment on above:Performed By: #### CBC, BMP #### [facility] [address] [place] [address] Glass Presser: Pete Ward MDGFR/1.73 sq M.predicted among non-blacks MDRD (S/P/Bld) [Vol rate/Area]mL/min/{1.73_m2}Normal>60St. [facility]'S Medical CenterComment on above:Result Comment: These results are not intended for [...] or following therapy that affects renal tubular secretion.Performed By: #### ZAC, BMP #### [facility] [address] [place] [address] Glass Presser: Pete Ward MDGlucose [Mass/Vol]78 mg/jXFmpiko13-75WjksxSutter Roseville Medical CenterComment on above:Performed By: #### ZAC, BMP #### [facility] [address] [place] [address] Glass Presser: BERTA Kangotassium [Moles/Vol]3.8 mmol/LNormal3.7-5.3 [facility] Medical CenterComment on above:Performed By: #### CBC, BMP #### [facility] [address] [place] [address] Glass Presser: Pete Ward MDSodium [Moles/Vol]136 mmol/MSzkpkq502-747JxxrhSt. Mary'S Medical CenterComment on above:Performed By: #### ZAC, BMP #### [facility] [address] [place] [address] Glass Presser: Pete Ward MDUrea nitrogen [Mass/Vol]9 mg/dLNormal8-23St. Mary'S Medical CenterComment on above:Performed By: #### CBC, BMP #### [facility] [address] [place] [address] Glass Presser: AGATHA Kangon 57-28-2224Ygryhasd, Fluoresc.247 k/uL Zbkrhb817-924QrhspSt. Mary'S Medical CenterComment on above:Performed By: #### CBC, BMP #### [address] [address] Glass Presser: BERTA KangLT, Immature Fract.10.3 %Normal1.1-10.3MSutter Roseville Medical CenterComment on above:Performed By: #### CBC, BMP #### [address] [address] Glass Presser: Pete Ward MDErythrocyte distribution width (RBC) [Ratio]24.1 %High11.8-14.4St. Mary'S Medical CenterComment on above:Performed By: #### CBC, BMP #### [address] [address] Glass Presser: Pete Ward MDHematocrit (Bld) [Volume fraction]27.4 %Low 40.7-50.3MSutter Roseville Medical CenterComment on above:Performed By: #### CBC, BMP #### [address] [address] Glass Presser: Pete Ward MDHemoglobin (Bld) [Mass/Vol]7.3 g/dLLow13.0-17.0 [facility]S Medical CenterComment on above:Performed By: #### CBC, BMP #### [address] [address] Glass Presser: ANNA KangCH (RBC) [Entitic mass]22.4 pgLow25.2-33.5St. Mary'S Medical CenterComment on above:Performed By: #### CBC, BMP #### [address] [address] Glass Presser: ANNA KangCHC (RBC) [Mass/Vol]26.6 g/dLLow28.4-34.8St. Mary'S Medical CenterComment on above:Performed By: #### CBC, BMP #### [address] [address] Glass Presser: ANNA KangCV (RBC) [Entitic vol]84.[address]68.6-102.9 [address] [facility]S Medical CenterComment on above:Performed By: #### CBC, BMP #### [address] [address] Glass Presser: AMARI Kang Automated0.0 per [address]0St[address] Mary'S Medical CenterComment on above:Performed By: #### CBC, BMP #### [address] [address] Glass Presser: Lanie Kanglet CountSee Reflexed IPF ResultNormal 138-453St. Mary'S Medical CenterComment on above:Performed By: #### CBC, BMP #### [address] [address] Glass Presser: RADHA KangBC (Bld) [#/Vol]3.26 10*6/uLLow4.21-5.77St. Mary'S Medical CenterComment on above:Performed By: #### CBC, BMP #### [address] [address] Glass Presser: JUSTINE KangBC (Bld) [#/Vol]7.1 10*3/uLNormal3.5-11.3MSutter Roseville Medical CenterComment on above:Performed By: #### CBC, BMP #### [address] [address] Glass Presser: Jay Kang Metabolic Profon 34-23-2017Erlza gap [Moles/Vol]11 mmol/LNormal9-17St. [facility]'S Medical CenterComment on above: Performed By: #### VILMA, CMPX #### [facility] [address] [place] [address] Glass Presser: CAILIN Kangalcium [Mass/Vol]9.4 mg/dLNormal8.6-10.4St. [facility]'S Medical CenterComment on above:Performed By: #### CDP, CMPX #### [facility] [address] [place] [address] Glass Presser: CAILIN Kanghloride [Moles/Vol]93 mmol/CYwq04-573XwcgeSt. Mary'S Medical CenterComment on above:Performed By: #### VILMA, CMPX #### [facility] [address] [place] [address] Glass Presser: Pete Ward MDCO2 [Moles/Vol]31 mmol/ZRqonhk71-18ZpptvSt. Mary'S Medical CenterComment on above:Performed By: #### VILMA, CMPX #### [facility] [address] [place] [address] Glass Presser: CAILIN Kangreatinine [Mass/Vol]0.6 mg/dLLow0.7-1.2MSutter Roseville Medical CenterComment on above:Performed By: #### VILMA, CMPX #### [facility] [address] [place] [address] Glass Presser: Pete Ward MDGFR/1.73 sq M.predicted among non-blacks MDRD (S/P/Bld) [Vol rate/Area]mL/min/{1.73_m2}Normal>60St. [facility]'S Medical CenterComment on above:Result Comment: These results are not intended for [...] or following therapy that affects renal tubular secretion.Performed By: #### VILMA, CMPX #### [address] [address] Glass Presser: Pete Ward MDGlucose [Mass/Vol]71 mg/gDXvjqrc32-76KtiymSutter Roseville Medical CenterComment on above:Performed By: #### VILMA, CMPX #### [address] [address] Glass Presser: Pete Ward MDPotassium [Moles/Vol]3.6 mmol/LLow3.7-5.3MSutter Roseville Medical CenterComment on above:Performed By: #### VILMA, CMPX #### [place] [address] Glass Presser: DUKE Kangodium [Moles/Vol]135 mmol/GDsrxif612-638KcwlwSt. Mary'S Medical CenterComment on above:Performed By: #### VILMA, CMPX #### [address] [address] Glass Presser: Pete Ward MDUrea nitrogen [Mass/Vol]10 mg/dLNormal8-23St. [facility]'S Medical CenterComment on above:Performed By: #### VILMA, CMPX #### [address] [address] Glass Presser: CAILIN Kang-Reactive Proteinon 83-14-5204XVS [Mass/Vol] 167.6 mg/LHigh0.0-5.0St. [facility]'S Medical CenterComment on above:Performed By: #### VILMA, CMPX #### [address] [address] Glass Presser: CAILIN KangBCon 42-74-3627Bflxzrlliwt distribution width (RBC) [Ratio]24.2 %High11.8-14.4St. [facility]'S Medical CenterComment on above:Performed By: #### CDP, CMPX #### [address] [address] Glass Presser: Pete Ward MDHematocrit (Bld) [Volume fraction]29.8 %Low 40.7-50.3MSutter Roseville Medical CenterComment on above:Performed By: #### CDP, CMPX #### [address] [address] Glass Presser: Pete Ward MDHemoglobin (Bld) [Mass/Vol]8.0 g/dLLow13.0-17.0 [facility] Medical CenterComment on above:Performed By: #### CDP, CMPX #### [place] [address] Glass Presser: ANNA KangCH (RBC) [Entitic mass]22.3 pgLow25.2-33.5St. Mary'S Medical CenterComment on above:Performed By: #### CDP, CMPX #### [address] [address] Glass Presser: ANNA KangCHC (RBC) [Mass/Vol]26.8 g/dLLow28.4-34.8St. [facility]'S Medical CenterComment on above:Performed By: #### CDP, CMPX #### [address] [address] Glass Presser: ANNA KangCV (RBC) [Entitic vol]83.[address]RKijcal29.6-102.9 [address] Medical CenterComment on above:Performed By: #### CDP, CMPX #### [address] [address] Glass Presser: AMARI Kang Automated0.0 per [address] Mary'S Medical CenterComment on above:Performed By: #### CDP, CMPX #### [facility] [address] [place] [address] Glass Presser: Lisette Kang CountSee Reflexed IPF ResultNormal 138-453St. Mary'S Medical CenterComment on above:Performed By: #### CDP, CMPX #### [facility] [address] [place] [address] Glass Presser: Lisette Kang, Fluoresc.294 k/uDMtstxe441-200GfcfbSt. Mary'S Medical CenterComment on above:Performed By: #### VILMA, CMPX #### [facility] [address] [place] [address] Glass Presser: CORRINA Kang Immature Fract.13.0 %High1.1-10.3Mwooster community hospitaly Desert Valley HospitalComment on above:Performed By: #### VILMA, CMPX #### [facility] [address] [place] [address] Glass Presser: WILBER Kang (Bld) [#/Vol]3.59 10*6/uLLow4.21-5.77St. [facility]'S Medical CenterComment on above:Performed By: #### VILMA, CMPX #### [facility] [address] [place] [address] Glass Presser: KYLIE Kang (Bld) [#/Vol]12.3 10*3/uLHigh3.5-11.3Mwooster community hospitaly [facility] HospitalComment on above:Performed By: #### VILMA, CMPX #### [facility] [address] [place] [address] Glass Presser: Pete Ward MDCT ABDOMEN PELVIS W IV CONTRASTon 15-20-3626XW ABDOMEN PELVIS W IV CONTRASTEXAMINATION: CT OF THE ABDOMEN AND PELVIS WITH [...] HISTORY: ORDERING SYSTEM PROVIDED HISTORY: Dislodged PEG 30, evaluate for elaine and evaluation of position of elaine catheter placed in PEG tract TECHNOLOGIST PROVIDED HISTORY: Dislodged PEG 1030, evaluate for elaine and evaluation of position [...] The bladder and reproductive organs are unremarkable. Peritoneum/Retroperitoneum: No evidence of ascites or free air. [...] by: Hilton Del Rio MD 04/06/23 Final resultNoKettering Memorial HospitalExtra Yellow Tubeon 04-06-2023 Extra Yellow TubeNoalSt. Mary'S Medical CenterComment on above: Performed By: #### BMP, CBC, XYEL #### [facility] [address] [place] [address] Glass Presser: NANNETTE Kang ABDOMEN FOR NG/OG/NE TUBE PLACEMENTon [id number] ABDOMEN FOR NG/OG/NE TUBE PLACEMENTEXAMINATION: ONE SUPINE XRAY VIEW(S) OF THE ABDOMEN [...] Signed by: Danitza Sharp MD 04/06/23 Final resultNormalSt. Mary'S Medical CenterXR ABDOMEN FOR NG/OG/NE TUBE PLACEMENTon 75-77-2926KC ABDOMEN FOR NG/OG/NE TUBE PLACEMENTEXAMINATION: ONE SUPINE X-RAY VIEW(S) OF THE ABDOMEN [...] Signed by: Danitza Sharp MD 04/05/23 Final resultNormAvita Health SystemBasic Metabolic Profon 24-36-7543Nsczi gap [Moles/Vol]7 mmol/LLow9-17[facility] Comment on above:Performed By: #### PT, RAFFAELE, MG, CBC, CPBILC #### [facility] [address] [place] [address] Glass Presser: CAILIN Kangalcium [Mass/Vol]9.3 mg/dLNormal8.6-10.4St. [facility]S Medical CenterComment on above:Performed By: #### PT, RAFFAELE, MG, CBC, CPBILC #### [facility] [address] [place] [address] Glass Presser: CAILIN Kanghloride [Moles/Vol]98 mmol/FDvrffy17-063LyfuiSt. Mary'S Medical CenterComment on above:Performed By: #### PT, RAFFAELE, MG, CBC, CPBILC #### [facility] [address] [place] [address] Glass Presser: Pete Ward MDCO2 [Moles/Vol]32 mmol/EGily14-11LdxbnSt. Mary'S Medical CenterComment on above:Performed By: #### PT, RAFFAELE, MG, CBC, CPBILC #### [facility] [address] [place] [address] Glass Presser: CAILIN Kangreatinine [Mass/Vol]0.4 mg/dLLow0.7-1.2MSutter Roseville Medical CenterComment on above:Performed By: #### PT, RAFFAELE, MG, CBC, CPBILC #### [facility] [address] [place] [address] Glass Presser: Pete Ward MDGFR/1.73 sq M.predicted among non-blacks MDRD (S/P/Bld) [Vol rate/Area]mL/min/{1.73_m2}Normal>60St. [facility]S Medical CenterComment on above:Result Comment: These results are not intended for [...] or following therapy that affects renal tubular secretion.Performed By: #### PT, RAFFAELE, MG, CBC, CPBILC #### [place] [address] Glass Presser: Pete Ward MDGlucose [Mass/Vol]86 mg/jDGgclwp86-50OvbodSutter Roseville Medical CenterComment on above:Performed By: #### PT, RAFFAELE, MG, CBC, CPBILC #### [place] [address] Glass Presser: BERTA Kangotassium [Moles/Vol]4.2 mmol/LNormal3.7-5.3 [facility] Medical CenterComment on above:Performed By: #### PT, RAFFAELE, MG, CBC, CPBILC #### [place] [address] Glass Presser: DUKE Kangodium [Moles/Vol]137 mmol/TRunhhh290-345KirdmSt. Mary'S Medical CenterComment on above:Performed By: #### PT, RAFFAELE, MG, CBC, CPBILC #### [facility] [address] [place] [address] Glass Presser: Pete Ward MDUrea nitrogen [Mass/Vol]10 mg/dLNormal8-23St. [facility]S Medical CenterComment on above:Performed By: #### PT, RAFFAELE, MG, CBC, CPBILC #### [place] [address] Glass Presser: Pete Ward [facility] with Diffon 17-75-5650Ofk. Basophil0.00 k/uL Normal0.0-0.2MSutter Roseville Medical CenterComment on above:Performed By: #### CBC, BMP #### [facility] [address] [place] [address] Glass Presser: MDAbs. PearlImm.Granulocyte0.00 k/uLNormal0.00-0.30St. [facility]S Medical CenterComment on above:Performed By: #### CBC, BMP #### [address] [address] Glass Presser: MDAbs. PearlNeutrophil (Seg)10.50 k/uLHigh1.8-7.7St. [facility]'S Medical CenterComment on above:Performed By: #### CBC, BMP #### [address] [address] Glass Presser: Pete Ward MDBasophils/100 WBC (Bld)0 %Normal0-2MSutter Roseville Medical CenterComment on above:Performed By: #### CBC, BMP #### [address] [address] Glass Presser: Pete Ward MDEosinophils (Bld) [#/Vol]0.12 10*3/uLNormal 0.0-0.4St. [facility]S Medical CenterComment on above:Performed By: #### CBC, BMP #### [address] [address] Glass Presser: Pete Ward MDEosinophils/100 WBC (Bld)1 %Normal1-4St. [facility]S Medical CenterComment on above:Performed By: #### CBC, BMP #### [address] [address] Glass Presser: Mukund Kangmature granulocytes/100 WBC (Bld)0 %Normal0 [facility]S Medical CenterComment on above:Performed By: #### CBC, BMP #### [address] [address] Glass Presser: Pete Madoff, MDLymphocytes (Bld) [#/Vol]0.71 10*3/uLLow1.0-4.8 [facility] Medical CenterComment on above:Performed By: #### CBC, BMP #### [address] [address] Glass Presser: Pete Ward MDLymphocytes/100 WBC (Bld)6 %Wzb19-21YahrbSt. Mary'S Medical CenterComment on above:Performed By: #### CBC, BMP #### [address] [address] Glass Presser: Pete Ward MDMonocytes (Bld) [#/Vol]0.47 10*3/uLNormal0.1-0.8 [facility] Medical CenterComment on above:Performed By: #### CBC, BMP #### [address] [address] Glass Presser: ANNA Kangonocytes/100 WBC (Bld)4 %Normal1-7St. [facility]'S Medical CenterComment on above:Performed By: #### CBC, BMP #### [address] [address] Glass Presser: ANNA Kangorphology Luis (Bld) [Interp]ANISOCYTOSIS PRESENTNormalSt. Mary'S Medical CenterComment on above:Result Comment: HYPOCHROMIA PRESENTPerformed By: #### CBC, BMP #### [address] [address] Glass Presser: Pete Ward MDNeutrophil (Seg)89 %Zhuf75-46VrapoSt. Mary'S Medical CenterComment on above:Performed By: #### CBC, BMP #### [address] [address] Glass Presser: Pete Ward MDErythrocyte distribution width (RBC) [Ratio]23.0 %High11.8-14.4St. [facility]'S Medical CenterComment on above:Performed By: #### CBC, BMP #### [address] [address] Glass Presser: Pete Ward MDHematocrit (Bld) [Volume fraction]28.9 %Low 40.7-50.3Mwooster community hospitaly Desert Valley HospitalComment on above:Performed By: #### CBC, BMP #### [place] [address] Glass Presser: Pete Ward MDHemoglobin (Bld) [Mass/Vol]7.6 g/dLLow13.0-17.0 [facility] Medical CenterComment on above:Performed By: #### CBC, BMP #### [place] [address] Glass Presser: ANNA KangCH (RBC) [Entitic mass]22.2 pgLow25.2-33.5St. [facility]'S Medical CenterComment on above:Performed By: #### CBC, BMP #### [place] [address] Glass Presser: ANNA KangCHC (RBC) [Mass/Vol]26.3 g/dLLow28.4-34.8St. [facility]'S Medical CenterComment on above:Performed By: #### CBC, BMP #### [place] [address] Glass Presser: ANNA KangCV (RBC) [Entitic vol]84.[address]Knyhlr27.6-102.9 [facility] Medical CenterComment on above:Performed By: #### CBC, BMP #### [address] [address] Glass Presser: Pete Ward MDNRBC Automated0.0 per [address] [facility]'S Medical CenterComment on above:Performed By: #### CBC, BMP #### [facility] [address] [place] [address] Glass Presser: Lisette Kang CountSee Reflexed IPF ResultNormal 138-453St. [facility]'S Medical CenterComment on above:Performed By: #### CBC, BMP #### [facility] [address] [place] [address] Glass Presser: Lisette Kang, Fluoresc.245 k/pNLldklh664-625CwrmtSt. Mary'S Medical CenterComment on above:Performed By: #### CBC, BMP #### [facility] [address] [place] [address] Glass Presser: CORRINA Kang, Immature Fract.12.7 %High1.1-10.3MSutter Roseville Medical CenterComment on above:Performed By: #### CBC, BMP #### [facility] [address] [place] [address] Glass Presser: WILBER Kang (Bld) [#/Vol]3.42 10*6/uLLow4.21-5.77St. [facility]'S Medical CenterComment on above:Performed By: #### CBC, BMP #### [facility] [address] [place] [address] Glass Presser: WILBER Kang morphology finding Nom (Bld)ANISOCYTOSIS PRESENTNormalSt. Mary'S Medical CenterComment on above:Result Comment: HYPOCHROMIA PRESENTPerformed By: #### CBC, BMP #### [facility] [address] [place] [address] Glass Presser: KYLIE Kang (Bld) [#/Vol]11.8 10*3/uLHigh3.5-11.3MSutter Roseville Medical CenterComment on above:Performed By: #### CBC, BMP #### [facility] [address] [place] [address] Glass Presser: Pete Ward MDExtra Yellow Tubeon 89-99-4917Yiins Yellow Tube NormalMercy Desert Valley HospitalComment on above:Performed By: #### PT, RAFFAELE, MG, CBC, CPBILC #### [facility] [address] [place] [address] Glass Presser: Pete Ward MDK (Potassium)on 65-21-0923Uevegrnmn [Moles/Vol] 4.1 mmol/LNormal3.7-5.3[facility] HospitalComment on above: Performed By: #### CDP, CMPX #### [facility] [address] [place] [address] Glass Presser: Pete Ward, MDPotassium [Moles/Vol]4.3 mmol/LNormal3.7-5.3 [facility] Medical CenterComment on above:Performed By: #### PT, RAFFAELE, MG, CBC, CPBILC #### [facility] [address] [place] [address] Glass Presser: Pete Ward MDMagnesiumon 69-11-5557Hbjfczmha [Mass/Vol]1.9 mg/dLNormal1.6-2.6[facility] HospitalComment on above:Performed By: #### CDP, CMPX #### [facility] [address] [place] [address] Glass Presser: Pete Ward, MDMagnesium [Mass/Vol]1.9 mg/dLNormal1.6-2.6[facility] HospitalComment on above:Performed By: #### PT, RAFFAELE, MG, CBC, CPBILC #### [facility] [address] [place] [address] Glass Presser: Pete Ward MDAmmoniaon 20-10-6828Lsglbmr (P) [Moles/Vol]35 umol/YHqlrja47-62AfmftSt. Mary'S Medical CenterComment on above:Performed By: #### PT, RAFFAELE, MG, CBC, CPBILC #### [facility] [address] [place] [address] Glass Presser: Pete Ward [facility] with Diffon 95-89-4666Wqt. Basophil0.00 k/uL Normal0.00-0.20St. [facility]S Medical CenterComment on above:Performed By: #### PT, RAFFAELE, MG, CBC, CPBILC #### [facility] [address] [place] [address] Glass Presser: Grady Kang.Imm.Granulocyte0.10 k/uLNormal0.00-0.30St. [facility] Medical CenterComment on above:Performed By: #### PT, RAFFAELE, MG, CBC, CPBILC #### [facility] [address] [place] [address] Glass Presser: Grady Kang.Neutrophil (Seg)7.65 k/uLNormal1.50-8.10 [facility] Medical CenterComment on above:Performed By: #### PT, RAFFAELE, MG, CBC, CPBILC #### [facility] [address] [place] [address] Glass Presser: Pete Ward MDBasophils/100 WBC (Bld)0 %Normal0-2MercSt. Mary Regional Medical CenterComment on above:Performed By: #### PT, RAFFAELE, MG, CBC, CPBILC #### [facility] [address] [place] [address] Glass Presser: Pete Ward MDEosinophils (Bld) [#/Vol]0.39 10*3/uLNormal 0.00-0.44St. [facility] Medical CenterComment on above:Performed By: #### PT, RAFFAELE, MG, CBC, CPBILC #### [facility] [place] [address] Glass Presser: Pete Ward MDEosinophils/100 WBC (Bld)4 %Normal1-4St[facility] Medical CenterComment on above:Performed By: #### PT, RAFFAELE, MG, CBC, CPBILC #### [facility] [address] [place] [address] Glass Presser: Pete Ward MDImmature granulocytes/100 WBC (Bld)1 %Xmlc1BllepSt. Mary'S Medical CenterComment on above:Performed By: #### PT, RAFFAELE, MG, CBC, CPBILC #### [facility] [address] [place] [address] Glass Presser: Pete Ward MDLymphocytes (Bld) [#/Vol]0.78 10*3/uLLow 1.10-3.70St. [facility]S Medical CenterComment on above:Performed By: #### PT, RAFFAELE, MG, CBC, CPBILC #### [facility] [address] [place] [address] Glass Presser: Pete Ward MDLymphocytes/100 WBC (Bld)8 %Jaw47-69VaxauSt. Mary'S Medical CenterComment on above:Performed By: #### PT, RAFFAELE, MG, CBC, CPBILC #### [facility] [address] [place] [address] Glass Presser: Pete Ward MDMonocytes (Bld) [#/Vol]0.88 10*3/uLNormal 0.10-1.20St. [facility] Medical CenterComment on above:Performed By: #### PT, RAFFAELE, MG, CBC, CPBILC #### [facility] [address] [place] [address] Glass Presser: Pete Ward MDMonocytes/100 WBC (Bld)9 %Normal3-12St. [facility]S Medical CenterComment on above:Performed By: #### PT, RAFFAELE, MG, CBC, CPBILC #### [facility] [address] [place] [address] Glass Presser: ANNA Kangorphology Luis (Bld) [Interp]HYPOCHROMIA PRESENT NormalSt. Mary'S Medical CenterComment on above:Result Comment: ANISOCYTOSIS PRESENTPerformed By: #### PT, RAFFAELE, MG, CBC, CPBILC #### [facility] [address] [place] [address] Glass Presser: Pete Ward MDNeutrophil (Seg)78 %Yxli26-44BiyxoSt. Mary'S Medical CenterComment on above:Performed By: #### PT, RAFFAELE, MG, CBC, CPBILC #### [address] [address] Glass Presser: Pete Ward MDErythrocyte distribution width (RBC) [Ratio]22.8 %High11.8-14.4St. [facility]S Medical CenterComment on above:Performed By: #### PT, RAFFAELE, MG, CBC, CPBILC #### [facility] [address] [place] [address] Glass Presser: Pete Ward MDHematocrit (Bld) [Volume fraction]29.6 %Low 40.7-50.3Mwooster community hospitaly [facility] HospitalComment on above:Performed By: #### PT, RAFFAELE, MG, CBC, CPBILC #### [facility] [address] [place] [address] Glass Presser: Pete Ward MDHemoglobin (Bld) [Mass/Vol]8.0 g/dLLow13.0-17.0 [facility] Medical CenterComment on above:Performed By: #### PT, RAFFAELE, MG, CBC, CPBILC #### [facility] [address] [place] [address] [phone] Glass Presser: ANNA KangCH (RBC) [Entitic mass]22.5 pgLow25.2-33.5St. [facility]S Medical CenterComment on above:Performed By: #### PT, RAFFAELE, MG, CBC, CPBILC #### [facility] [address] [place] [address] [phone] Glass Presser: CORWIN KangC (RBC) [Mass/Vol]27.0 g/dLLow28.4-34.8St. [facility]'S Medical CenterComment on above:Performed By: #### PT, RAFFAELE, MG, CBC, CPBILC #### [facility] [address] [place] [address] Glass Presser: ANNA KangCV (RBC) [Entitic vol]83.[address]wnty98.6-102.9 [address] Medical CenterComment on above:Performed By: #### PT, RAFFAELE, MG, CBC, CPBILC #### [facility] [address] [place] [address] Glass Presser: AMARI Kang Automated0.0 per [address] [facility]S Medical CenterComment on above:Performed By: #### PT, RAFFAELE, MG, CBC, CPBILC #### [facility] [address] [place] [address] Glass Presser: Lisette Kang CountSee Reflexed IPF ResultNormal 138-453St. [facility]'S Medical CenterComment on above:Performed By: #### PT, RAFFAELE, MG, CBC, CPBILC #### [facility] [address] [place] [address] Glass Presser: Lisette Kang Fluoresc.256 k/oVKncfqp619-649YxupsSt. Mary'S Medical CenterComment on above:Performed By: #### PT, RAFFAELE, MG, CBC, CPBILC #### [facility] [place] [address] Glass Presser: CORRINA Kang Immature Fract.12.6 %High1.1-10.3MSutter Roseville Medical CenterComment on above:Performed By: #### PT, RAFFAELE, MG, CBC, CPBILC #### [facility] [address] [place] [address] Glass Presser: Pete Wrad MDRBC (Bld) [#/Vol]3.55 10*6/uLLow4.21-5.77St. [facility]'S Medical CenterComment on above:Performed By: #### PT, RAFFAELE, MG, CBC, CPBILC #### [facility] [address] [place] [address] Glass Presser: Pete Ward MDWBC (Bld) [#/Vol]9.8 10*3/uLNormal3.5-11.3MSutter Roseville Medical CenterComment on above:Performed By: #### PT, RAFFAELE, MG, CBC, CPBILC #### [facility] [address] [place] [address] Glass Presser: CAILIN Kangomp Metab w/Bili Pron [id number] [Mass/Vol]2.6 g/dLLow3.5-5.2MSutter Roseville Medical CenterComment on above: Performed By: #### PT, RAFFAELE, MG, CBC, CPBILC #### [facility] [address] [place] [address] Glass Presser: Pete Ward MDAlbumin/Glob Ratio0.7Low1.0-2.5St. [facility]'S Medical CenterComment on above:Performed By: #### PT, RAFFAELE, MG, CBC, CPBILC #### [facility] [employer] [facility] [address] [place] [address] [phone] Glass Presser: Pete Madoff, MDAlkaline Phos72 U/KUcnezn58-120QarfjSt. Mary'S Medical CenterComment on above:Performed By: #### PT, RAFFAELE, MG, CBC, CPBILC #### [facility] [address] [place] [address] Glass Presser: Pete Ward MDALT [Catalytic activity/Vol]20 U/LNormal5-41 [facility]. [facility]S Medical CenterComment on above:Performed By: #### PT, RAFFAELE, MG, CBC, CPBILC #### [facility] [address] [place] [address] Glass Presser: Pete Ward MDAnialma gap [Moles/Vol]6 mmol/LLow9-17St. [facility]'S Medical CenterComment on above:Performed By: #### PT, RAFFAELE, MG, CBC, CPBILC #### [address] [address] Glass Presser: Pete Ward MDAST [Catalytic activity/Vol]23 U/LNormal<40St. [facility]'S Medical CenterComment on above:Performed By: #### PT, RAFFAELE, MG, CBC, CPBILC #### [facility] [address] [place] [address] Glass Presser: Pete Ward MDBilirubin [Mass/Vol]0.4 mg/dLNormal0.3-1.2MSutter Roseville Medical CenterComment on above:Performed By: #### PT, RAFFAELE, MG, CBC, CPBILC #### [facility] [address] [place] [address] Glass Presser: Pete Ward MDBilirubin, Indirect0.2 mg/dLNormal0.0-1.0St. [facility]'S Medical CenterComment on above:Performed By: #### PT, RAFFAELE, MG, CBC, CPBILC #### [facility] [address] [place] [address] Glass Presser: Pete Ward MDBilirubin.indirect [Mass/Vol]0.2 mg/dLNormal<0.3 St[facility]S Medical CenterComment on above:Performed By: #### PT, RAFFAELE, MG, CBC, CPBILC #### [address] [address] Glass Presser: CAILIN Kangalcium [Mass/Vol]9.5 mg/dLNormal8.6-10.4St. [facility]S Medical CenterComment on above:Performed By: #### PT, RAFFAELE, MG, CBC, CPBILC #### [place] [address] Glass Presser: CAILIN Kanghloride [Moles/Vol]101 mmol/NNfxmcg96-036DuwrmSt. Mary'S Medical CenterComment on above:Performed By: #### PT, RAFFAELE, MG, CBC, CPBILC #### [place] [address] Glass Presser: Pete Ward MDCO2 [Moles/Vol]35 mmol/HCtzr66-70QxanfSt. Mary'S Medical CenterComment on above:Performed By: #### PT, RAFFAELE, MG, CBC, CPBILC #### [place] [address] Glass Presser: CAILIN Kangreatinine [Mass/Vol]0.5 mg/dLLow0.7-1.2MSutter Roseville Medical CenterComment on above:Performed By: #### PT, RAFFAELE, MG, CBC, CPBILC #### [place] [address] Glass Presser: Pete Ward MDGFR/1.73 sq M.predicted among non-blacks MDRD (S/P/Bld) [Vol rate/Area]mL/min/{1.73_m2}Normal>60[facility]ganum Medical CenterComment on above:Result Comment: These results are not intended for [...] or following therapy that affects renal tubular secretion.Performed By: #### PT, RAFFAELE, MG, CBC, CPBILC #### [place] [address] Glass Presser: Pete Ward MDGlucose [Mass/Vol]105 mg/tWAmef29-83EfkylSutter Roseville Medical CenterComment on above:Performed By: #### PT, RAFFAELE, MG, CBC, CPBILC #### [place] [address] Glass Presser: Pete Ward MDPotassium [Moles/Vol]4.0 mmol/LNormal3.7-5.3 [facility]S Medical CenterComment on above:Performed By: #### PT, RAFFAELE, MG, CBC, CPBILC #### [place] [address] Glass Presser: Pete Ward MDProtein [Mass/Vol]6.2 g/dLLow6.4-8.3MSutter Roseville Medical CenterComment on above:Performed By: #### PT, RAFFAELE, MG, CBC, CPBILC #### [place] [address] Glass Presser: Pete Ward MDSodium [Moles/Vol]142 mmol/WDxjcsd781-968IeensSt. Mary'S Medical CenterComment on above:Performed By: #### PT, RAFFAELE, MG, CBC, CPBILC #### [address] [address] Glass Presser: Pete Ward MDUrea nitrogen [Mass/Vol]13 mg/dLNormal8-23St. Mary'S Medical CenterComment on above:Performed By: #### PT, RAFFAELE, MG, CBC, CPBILC #### [facility] [address] [place], [place] [phone] Glass Presser: SIERRA KangR ABDOMEN (KUB) (SINGLE AP VIEW)on [id number] ABDOMEN (KUB) (SINGLE AP VIEW)EXAMINATION: ONE SUPINE XRAY VIEW(S) OF THE ABDOMEN [...] Signed by: Shirley Andrade MD 04/03/23 Final resultNormalSt. Mary'S Medical CenterBrain Natri. Peptideon [id number] peptide B (Bld) [Mass/Vol]1152 pg/mLHigh<300St. Mary'S Medical CenterComment on above:Result Comment: An age-independent cutoff point of 300 pg/ml has a 98% negative predictive value excluding acute heart failure.Performed By: #### CBC, BMP #### [facility] [address] [place] [address] Glass Presser: Pete Ward [facility] with Diffon [id number]. Basophil0.00 k/uL Normal0.00-0.20St. [facility]'S Medical CenterComment on above:Performed By: #### PT, RAFFAELE, MG, CBC, CPBILC #### [facility] [address] [place], [place] [phone] Glass Presser: Grady Kang.Imm.Granulocyte0.00 k/uLNormal0.00-0.30St. [facility]S Medical CenterComment on above:Performed By: #### PT, RAFFAELE, MG, CBC, CPBILC #### [address] [address] Glass Presser: Grady Kang.Neutrophil (Seg)9.86 k/uLHigh1.50-8.10St. [facility]S Medical CenterComment on above:Performed By: #### PT, RAFFAELE, MG, CBC, CPBILC #### [address] [address] Glass Presser: Pete Ward MDBasophils/100 WBC (Bld)0 %Normal0-2MSutter Roseville Medical CenterComment on above:Performed By: #### PT, RAFFAELE, MG, CBC, CPBILC #### [place] [address] Glass Presser: Pete Ward MDEosinophils (Bld) [#/Vol]0.63 10*3/uLHigh 0.00-0.44St. [facility]S Medical CenterComment on above:Performed By: #### PT, RAFFAELE, MG, CBC, CPBILC #### [address] [address] Glass Presser: AUDRA Kangosinophils/100 WBC (Bld)5 %High1-4St. [facility]'S Medical CenterComment on above:Performed By: #### PT, RAFFAELE, MG, CBC, CPBILC #### [address] [address] Glass Presser: Mukund Kangmature granulocytes/100 WBC (Bld)0 %Normal0 [facility]'S Medical CenterComment on above:Performed By: #### PT, RAFFAELE, MG, CBC, CPBILC #### [address] [address] Glass Presser: Pete Ward MDLymphocytes (Bld) [#/Vol]0.88 10*3/uLLow 1.10-3.70St. [facility]S Medical CenterComment on above:Performed By: #### PT, RAFFAELE, MG, CBC, CPBILC #### [facility] [address] [place] [address] Glass Presser: Pete Ward MDLymphocytes/100 WBC (Bld)7 %Cjz44-31CqnojSt. Mary'S Medical CenterComment on above:Performed By: #### PT, RAFFAELE, MG, CBC, CPBILC #### [facility] [address] [place] [address] Glass Presser: ANNA Kangonocytes (Bld) [#/Vol]1.13 10*3/uLNormal 0.10-1.20St. [facility]S Medical CenterComment on above:Performed By: #### PT, RAFFAELE, MG, CBC, CPBILC #### [facility] [address] [place] [address] Glass Presser: ANNA Kangonocytes/100 WBC (Bld)9 %Normal3-12St. [facility]'S Medical CenterComment on above:Performed By: #### PT, RAFFAELE, MG, CBC, CPBILC #### [facility] [address] [place] [address] Glass Presser: ANNA Kangorphology Luis (Bld) [Interp]ANISOCYTOSIS PRESENTNormalSt. Mary'S Medical CenterComment on above:Result Comment: HYPOCHROMIA PRESENT 1+ ELLIPTOCYTESPerformed By: #### PT, RAFFAELE, MG, CBC, CPBILC #### [facility] [address] [place] [address] Glass Presser: Pete Ward MDNeutrophil (Seg)79 %Vpsc92-08GafbpSt. Mary'S Medical CenterComment on above:Performed By: #### PT, RAFFAELE, MG, CBC, CPBILC #### [facility] [address] [place] [address] Glass Presser: Lisette Kang Fluoresc.Platelet clumps present, count appears adequate.Gtwsbu927-488EkdvsSt. Mary'S Medical CenterComment on above:Performed By: #### PT, RAFFAELE, MG, CBC, CPBILC #### [facility] [address] [place] [address] Glass Presser: Pete Ward MDErythrocyte distribution width (RBC) [Ratio]22.7 %High11.8-14.4St. Mary'S Medical CenterComment on above:Performed By: #### PT, RAFFAELE, MG, CBC, CPBILC #### [facility] [address] [place] [address] Glass Presser: Pete Ward MDHematocrit (Bld) [Volume fraction]32.3 %Low 40.7-50.3Mwooster community hospitaly Desert Valley HospitalComment on above:Performed By: #### PT, RAFFAELE, MG, CBC, CPBILC #### [facility] [address] [place] [address] Glass Presser: Pete Ward MDHemoglobin (Bld) [Mass/Vol]8.4 g/dLLow13.0-17.0 [facility]S Medical CenterComment on above:Performed By: #### PT, RAFFAELE, MG, CBC, CPBILC #### [facility] [address] [place] [address] Glass Presser: CORWIN Kang (RBC) [Entitic mass]22.4 pgLow25.2-33.5St. [facility]'S Medical CenterComment on above:Performed By: #### PT, RAFFAELE, MG, CBC, CPBILC #### [facility] [address] [place] [address] Glass Presser: Pete Madoff, MDMCHC (RBC) [Mass/Vol]26.0 g/dLLow28.4-34.8St. [facility]'S Medical CenterComment on above:Performed By: #### PT, RAFFAELE, MG, CBC, CPBILC #### [address] [address] Glass Presser: ANNA KangCV (RBC) [Entitic vol]86.[address]jdux49.6-102.9 [facility] Medical CenterComment on above:Performed By: #### PT, RAFFAELE, MG, CBC, CPBILC #### [address] [address] Glass Presser: AMARI Kang Automated0.0 per [address] [facility]'S Medical CenterComment on above:Performed By: #### PT, RAFFAELE, MG, CBC, CPBILC #### [place] [address] Glass Presser: Apolonia Kangtelet CountSee Reflexed IPF ResultNormal 138-453St. Mary'S Medical CenterComment on above:Performed By: #### PT, RAFFAELE, MG, CBC, CPBILC #### [place] [address] Glass Presser: WILBER Kang (Bld) [#/Vol]3.75 10*6/uLLow4.21-5.77St. [facility]S Medical CenterComment on above:Performed By: #### PT, RAFFAELE, MG, CBC, CPBILC #### [facility] [address] [place] [address] Glass Presser: KYLIE Kang (Bld) [#/Vol]12.5 10*3/uLHigh3.5-11.3MSutter Roseville Medical CenterComment on above:Performed By: #### PT, RAFFAELE, MG, CBC, CPBILC #### [facility] [address] [place] [address] Glass Presser: Grady Kang. Basophil0.00 k/uLNormal0.0-0.2MSutter Roseville Medical CenterComment on above:Performed By: #### CBC, BMP #### [address] [address] Glass Presser: MDAbs. PearlImm.Granulocyte0.00 k/uLNormal0.00-0.30St. [facility]'S Medical CenterComment on above:Performed By: #### CBC, BMP #### [address] [address] Glass Presser: MDAbs. PearlNeutrophil (Seg)8.50 k/uLHigh1.8-7.7St. [facility]'S Medical CenterComment on above:Performed By: #### CBC, BMP #### [address] [address] Glass Presser: Pete Ward MDBasophils/100 WBC (Bld)0 %Normal0-2MSutter Roseville Medical CenterComment on above:Performed By: #### CBC, BMP #### [address] [address] Glass Presser: Pete Ward MDEosinophils (Bld) [#/Vol]0.55 10*3/uLHigh0.0-0.4 [facility] Medical CenterComment on above:Performed By: #### CBC, BMP #### [address] [address] Glass Presser: Pete Ward MDEosinophils/100 WBC (Bld)5 %High1-4St. [facility]S Medical CenterComment on above:Performed By: #### CBC, BMP #### [address] [address] Glass Presser: Pete Ward MDImmature granulocytes/100 WBC (Bld)0 %Normal0 [facility]S Medical CenterComment on above:Performed By: #### CBC, BMP #### [address] [address] Glass Presser: Pete Ward MDLymphocytes (Bld) [#/Vol]0.76 10*3/uLLow1.0-4.8 [facility] Medical CenterComment on above:Performed By: #### CBC, BMP #### [address] [address] Glass Presser: Pete Ward MDLymphocytes/100 WBC (Bld)7 %Inf53-48CxsygSt. Mary'S Medical CenterComment on above:Performed By: #### CBC, BMP #### [address] [address] Glass Presser: Pete Ward MDMonocytes (Bld) [#/Vol]1.09 10*3/uLHigh0.1-0.8 [facility]S Medical CenterComment on above:Performed By: #### CBC, BMP #### [address] [address] Glass Presser: Pete Ward MDMonocytes/100 WBC (Bld)10 %High1-7St. [facility]'S Medical CenterComment on above:Performed By: #### CBC, BMP #### [address] [address] Glass Presser: ANNA Kangorphology Luis (Bld) [Interp]ANISOCYTOSIS PRESENTNormalSt. Mary'S Medical CenterComment on above:Result Comment: HYPOCHROMIA PRESENT 1+ ELLIPTOCYTESPerformed By: #### CBC, BMP #### [address] [address] Glass Presser: Pete Ward MDNeutrophil (Seg)78 %Ogaz74-79ZefthSt. Mary'S Medical CenterComment on above:Performed By: #### CBC, BMP #### [address] [address] Glass Presser: CAILIN Kangomp Metab w/Bili Pron [id number] [Mass/Vol]2.8 g/dLLow3.5-5.2MSutter Roseville Medical CenterComment on above: Performed By: #### PT, RAFFAELE, MG, CBC, CPBILC #### [address] [address] Glass Presser: Pete Ward MDAlbumin/Glob Ratio0.9Low1.0-2.5St. [facility]'S Medical CenterComment on above:Performed By: #### PT, RAFFAELE, MG, CBC, CPBILC #### [facility] [address] [place] [address] Glass Presser: Emely Kangkaline Phos71 U/EFvcqcs81-688LsxrqSt. Mary'S Medical CenterComment on above:Performed By: #### PT, RAFFAELE, MG, CBC, CPBILC #### [address] [address] Glass Presser: Pete Ward MDALT [Catalytic activity/Vol]24 U/LNormal5-41 [facility] Medical CenterComment on above:Performed By: #### PT, RAFFAELE, MG, CBC, CPBILC #### [facility] [address] [place] [address] Glass Presser: Karan Kang gap [Moles/Vol]2 mmol/LLow9-17St. [facility]S Medical CenterComment on above:Performed By: #### PT, RAFFAELE, MG, CBC, CPBILC #### [facility] [address] [place] [address] Glass Presser: Pete Ward MDAST [Catalytic activity/Vol]22 U/LNormal<40St. [facility] Medical CenterComment on above:Performed By: #### PT, RAFFAELE, MG, CBC, CPBILC #### [place] [address] Glass Presser: Pete Ward MDBilirubin [Mass/Vol]0.5 mg/dLNormal0.3-1.2MSutter Roseville Medical CenterComment on above:Performed By: #### PT, RAFFAELE, MG, CBC, CPBILC #### [place] [address] Glass Presser: Pete Ward MDBilirubin, Indirect0.3 mg/dLNormal0.0-1.0St. [facility] Medical CenterComment on above:Performed By: #### PT, RAFFAELE, MG, CBC, CPBILC #### [place] [address] Glass Presser: Pete Ward MDBilirubin.indirect [Mass/Vol]0.2 mg/dLNormal<0.3 [facility] Medical CenterComment on above:Performed By: #### PT, RAFFAELE, MG, CBC, CPBILC #### [place] [address] Glass Presser: Pete Ward MDCalcium [Mass/Vol]9.8 mg/dLNormal8.6-10.4St. [facility] Medical CenterComment on above:Performed By: #### PT, RAFFAELE, MG, CBC, CPBILC #### [place] [address] Glass Presser: Pete Ward MDChloride [Moles/Vol]108 mmol/ODnla47-335VrgjfSt. Mary'S Medical CenterComment on above:Performed By: #### PT, RAFFAELE, MG, CBC, CPBILC #### [facility] [address] [place] [address] Glass Presser: CAILIN KangO2 [Moles/Vol]37 mmol/LApup40-52VoperSt. Mary'S Medical CenterComment on above:Performed By: #### PT, RAFFAELE, MG, CBC, CPBILC #### [facility] [address] [place] [address] Glass Presser: CAILIN Kangreatinine [Mass/Vol]0.5 mg/dLLow0.7-1.2MSutter Roseville Medical CenterComment on above:Performed By: #### PT, RAFFAELE, MG, CBC, CPBILC #### [facility] [address] [place] [address] Glass Presser: Pete Ward MDGFR/1.73 sq M.predicted among non-blacks MDRD (S/P/Bld) [Vol rate/Area]mL/min/{1.73_m2}Normal>60St. [facility]S Medical CenterComment on above:Result Comment: These results are not intended for [...] or following therapy that affects renal tubular secretion.Performed By: #### PT, RAFFAELE, MG, CBC, CPBILC #### [facility] [address] [place] [address] Glass Presser: Pete Ward MDGlucose [Mass/Vol]115 mg/qQGpdu17-73CkjznSutter Roseville Medical CenterComment on above:Performed By: #### PT, RAFFAELE, MG, CBC, CPBILC #### [facility] [address] [place] [address] Glass Presser: Pete Madoff, MDPotassium [Moles/Vol]3.7 mmol/LNormal3.7-5.3 [facility] Medical CenterComment on above:Performed By: #### PT, RAFFAELE, MG, CBC, CPBILC #### [facility] [address] [place] [address] Glass Presser: Pete Ward MDProtein [Mass/Vol]5.9 g/dLLow6.4-8.3MSutter Roseville Medical CenterComment on above:Performed By: #### PT, RAFFAELE, MG, CBC, CPBILC #### [address] [address] Glass Presser: DUKE Kangodium [Moles/Vol]147 mmol/RJigp354-223SsxgcSt. Mary'S Medical CenterComment on above:Performed By: #### PT, RAFFAELE, MG, CBC, CPBILC #### [address] [address] Glass Presser: Pete Ward MDUrea nitrogen [Mass/Vol]11 mg/dLNormal8-23St. [facility]S Medical CenterComment on above:Performed By: #### PT, RAFFAELE, MG, CBC, CPBILC #### [address] [phone] Glass Presser: Francisco Kang,Bloodon [id number],BloodSpecimen Description .BLOOD Special Requests L AC 4ML Culture NO GROWTH 5 DAYS Report Status FINAL 04/01/2023[facility] HospitalComment on above:Performed By: #### PT, RAFFAELE, MG, CBC, CPBILC #### [facility] [address] [place] [address] [phone] Glass Presser: Francisco Kang,BloodSpecimen Description .BLOOD Special Requests L FOREARM 12ML Culture NO GROWTH 5 DAYS Report Status FINAL 04/01/2023[facility] HospitalComment on above:Performed By: #### CBC, BMP #### [facility] [address] [place] [address] Glass Presser: AGATHA Kang with Diffon [id number] distribution width (RBC) [Ratio]22.2 %High11.8-14.4St. [facility]'S Medical CenterComment on above:Performed By: #### CBC, BMP #### [address] [address] Glass Presser: Pete Ward MDHematocrit (Bld) [Volume fraction]30.0 %Low 40.7-50.3MSutter Roseville Medical CenterComment on above:Performed By: #### CBC, BMP #### [address] [address] Glass Presser: Pete Ward MDHemoglobin (Bld) [Mass/Vol]8.0 g/dLLow13.0-17.0 [facility] Medical CenterComment on above:Performed By: #### ZAC, BMP #### [address] [address] Glass Presser: ANNA KangCH (RBC) [Entitic mass]22.2 pgLow25.2-33.5St. [facility]'S Medical CenterComment on above:Performed By: #### CBC, BMP #### [address] [address] Glass Presser: ANNA KangCHC (RBC) [Mass/Vol]26.7 g/dLLow28.4-34.8St. [facility]'S Medical CenterComment on above:Performed By: #### CBC, BMP #### [address] [address] Glass Presser: ANNA KangCV (RBC) [Entitic vol]83.[address]qz19.6-102.9 [address] Medical CenterComment on above:Performed By: #### CBC, BMP #### [facility] [address] [place] [address] Glass Presser: AMAIR Kang Automated0.0 per [address] [facility]'S Medical CenterComment on above:Performed By: #### CBC, BMP #### [facility] [address] [place] [address] Glass Presser: Lisette Kang CountSee Reflexed IPF ResultNormal 138-453St. [facility]'S Medical CenterComment on above:Performed By: #### CBC, BMP #### [facility] [address] [place] [address] Glass Presser: Lisette Kang Fluoresc.241 k/wMDplzuu791-055NuistSt. Mary'S Medical CenterComment on above:Performed By: #### CBC, BMP #### [facility] [address] [place] [address] Glass Presser: CORRINA Kang, Immature Fract.12.5 %High1.1-10.3MSutter Roseville Medical CenterComment on above:Performed By: #### CBC, BMP #### [facility] [address] [place] [address] Glass Presser: WILBER Kang (Bld) [#/Vol]3.61 10*6/uLLow4.21-5.77St. [facility]S Medical CenterComment on above:Performed By: #### CBC, BMP #### [facility] [address] [place] [address] Glass Presser: KYLIE Kang (Bld) [#/Vol]10.9 10*3/uLNormal3.5-11.3MSutter Roseville Medical CenterComment on above:Performed By: #### CBC, BMP #### [facility] [address] [place] [address] Glass Presser: Pete Ward MDComp Metab w/Bili Pron [id number] [Mass/Vol]2.4 g/dLLow3.5-5.2MSutter Roseville Medical CenterComment on above: Performed By: #### PT, RAFFAELE, MG, CBC, CPBILC #### [facility] [address] [place] [address] Glass Presser: Pete Ward MDAlbumin/Glob Ratio0.7Low1.0-2.5St. [facility]S Medical CenterComment on above:Performed By: #### PT, RAFFAELE, MG, CBC, CPBILC #### [facility] [address] [place] [address] Glass Presser: Pete Ward MDAlkaline Phos68 U/VUwlygj18-134QbrnlSt. Mary'S Medical CenterComment on above:Performed By: #### PT, RAFFAELE, MG, CBC, CPBILC #### [facility] [address] [place] [address] Glass Presser: Pete Ward MDALT [Catalytic activity/Vol]28 U/LNormal5-41 [facility] Medical CenterComment on above:Performed By: #### PT, RAFFAELE, MG, CBC, CPBILC #### [facility] [address] [place] [address] Glass Presser: Pete Ward MDAnialma gap [Moles/Vol]8 mmol/LLow9-17St. [facility] Medical CenterComment on above:Performed By: #### PT, RAFFAELE, MG, CBC, CPBILC #### [facility] [address] [place] [address] Glass Presser: Pete Ward MDAST [Catalytic activity/Vol]27 U/LNormal<40St. [facility] Medical CenterComment on above:Performed By: #### PT, RAFFAELE, MG, CBC, CPBILC #### [facility] [address] [place] [address] Glass Presser: Pete Ward MDBilirubin [Mass/Vol]0.6 mg/dLNormal0.3-1.2MSutter Roseville Medical CenterComment on above:Performed By: #### PT, RAFFAELE, MG, CBC, CPBILC #### [address] [address] Glass Presser: Pete Ward MDBilirubin, Indirect0.3 mg/dLNormal0.0-1.0St. [facility] Medical CenterComment on above:Performed By: #### PT, RAFFAELE, MG, CBC, CPBILC #### [address] [address] Glass Presser: Luis Kangirubin.indirect [Mass/Vol]0.3 mg/dLHigh<0.3 [facility] Medical CenterComment on above:Performed By: #### PT, RAFFAELE, MG, CBC, CPBILC #### [place] [address] Glass Presser: Pete Ward MDCalcium [Mass/Vol]9.3 mg/dLNormal8.6-10.4St. [facility] Medical CenterComment on above:Performed By: #### PT, RAFFAELE, MG, CBC, CPBILC #### [place] [address] Glass Presser: Pete Ward MDChloride [Moles/Vol]107 mmol/MTtvcyc79-349LrrydSt. Mary'S Medical CenterComment on above:Performed By: #### PT, RAFFAELE, MG, CBC, CPBILC #### [facility] [address] [place] [address] Glass Presser: Pete Ward MDCO2 [Moles/Vol]31 mmol/PNulvkh38-58GlpxuSt. Mary'S Medical CenterComment on above:Performed By: #### PT, RAFFAELE, MG, CBC, CPBILC #### [facility] [address] [place] [address] Glass Presser: CAILIN Kangreatinine [Mass/Vol]0.5 mg/dLLow0.7-1.2[facility] HospitalComment on above:Performed By: #### PT, RAFFAELE, MG, CBC, CPBILC #### [facility] [address] [place] [address] Glass Presser: Pete Ward MDGFR/1.73 sq M.predicted among non-blacks MDRD (S/P/Bld) [Vol rate/Area]mL/min/{1.73_m2}Normal>60[facility] HospitalComment on above:Result Comment: These results are not intended for [...] or following therapy that affects renal tubular secretion.Performed By: #### PT, RAFFAELE, MG, CBC, CPBILC #### [facility] [address] [place] [address] Glass Presser: Pete Ward MDGlucose [Mass/Vol]103 mg/jVXjvc07-71Rnecn Desert Valley HospitalComment on above:Performed By: #### PT, RAFFAELE, MG, CBC, CPBILC #### [facility] [address] [place] [address] Glass Presser: BERTA Kangotassium [Moles/Vol]3.5 mmol/LLow3.7-5.3[facility] HospitalComment on above:Performed By: #### PT, RAFFAELE, MG, CBC, CPBILC #### [facility] [address] [place] [address] Glass Presser: BERTA Kangrotein [Mass/Vol]5.7 g/dLLow6.4-8.3Mwooster community hospitaly [facility] HospitalComment on above:Performed By: #### PT, RAFFAELE, MG, CBC, CPBILC #### [facility] [address] [place] [address] Glass Presser: DUKE Kangodium [Moles/Vol]146 mmol/DGdqi372-376AuinvSt. Mary'S Medical CenterComment on above:Performed By: #### PT, RAFFAELE, MG, CBC, CPBILC #### [facility] [address] [place] [address] Glass Presser: Pete Ward MDUrea nitrogen [Mass/Vol]13 mg/dLNormal8-23St. [facility]'S Medical CenterComment on above:Performed By: #### PT, RAFFAELE, MG, CBC, CPBILC #### [address] [address] Glass Presser: Stoney Kangctate Dehydrogenaseon [id number] [Catalytic activity/Vol]164 U/ZOtomta514-471RbzxiSt. Mary'S Medical CenterComment on above:Performed By: #### CBC, BMP #### [address] [address] Glass Presser: Stoney Kangctic Acidon 14-13-9819Udpetd Acid,Whole Bl0.9 mmol/LNormal0.7-2.1Mwooster community hospitaly Desert Valley HospitalComment on above:Performed By: #### CBC, BMP #### [address] [address] Glass Presser: Vicente Kang 28-30-7288HRQ Coag (PPP) [Relative time]1.4 {INR}NormalSt. Mary'S Medical CenterComment on above:Result Comment: Therapeutic Range: Moderate Anticoagulant Intensity: INR = 2.0-3.0 High Anticoagulant Intensity: INR = 2.5-3.5Performed By: #### ZAC, BMP #### [facility] [address] [place] [address] Glass Presser: DWIGHT Kang Coag (PPP) [Time]17.1 sHigh11.7-14.9St. Mary'S Medical CenterComment on above:Performed By: #### ZAC, BMP #### [address] [address] Glass Presser: RADHA Kangetic Counton 69-73-1372Arnsqfgo Retic0.010 M/uL Low0.030-0.080St. Mary'S Medical CenterComment on above:Performed By: #### ZAC, BMP #### [address] [address] Glass Presser: Pete Ward MDIRF22.3 %High2.7-18.3MercSt. Mary Regional Medical CenterComment on above:Performed By: #### ZAC, BMP #### [facility] [address] [place] [address] Glass Presser: RADHA Kangetic Count0.3 %Low0.5-1.9St. Mary'S Medical CenterComment on above:Performed By: #### ZAC, BMP #### [facility] [address] [place] [address] Glass Presser: RADHA Kangetic Odfjcptbzn65.0 pgLow28.2-35.7St. Mary'S Medical CenterComment on above:Performed By: #### ZAC, BMP #### [facility] [address] [place] [address] Glass Presser: Pete Ward MDType + Screenon [id number] + ScreenSample Expiration 04/03/2023,2359 Arm Band Number BE [id number] ABO/Rh(D) A POSITIVE Antibody Screen NEGATIVENormalSt. Mary'S Medical CenterComment on above: Performed By: #### PT, RAFFAELE, MG, CBC, CPBILC #### [address] [address] Glass Presser: CAILIN KangBCon [id number] distribution width (RBC) [Ratio]22.3 %High11.8-14.4St. Mary'S Medical CenterComment on above:Performed By: #### CDP, CMPX #### [address] [address] Glass Presser: Pete Ward MDHematocrit (Bld) [Volume fraction]34.7 %Low 40.7-50.3Mwooster community hospitaly Desert Valley HospitalComment on above:Performed By: #### CDP, CMPX #### [address] [address] Glass Presser: Pete Ward MDHemoglobin (Bld) [Mass/Vol]9.4 g/dLLow13.0-17.0 St[facility]'S Medical CenterComment on above:Performed By: #### CDP, CMPX #### [address] [address] Glass Presser: ANNA KangCH (RBC) [Entitic mass]22.7 pgLow25.2-33.5St. Mary'S Medical CenterComment on above:Performed By: #### CDP, CMPX #### [address] [address] Glass Presser: ANNA KangCHC (RBC) [Mass/Vol]27.1 g/dLLow28.4-34.8St. Mary'S Medical CenterComment on above:Performed By: #### CDP, CMPX #### [address] [address] Glass Presser: ANNA KangCV (RBC) [Entitic vol]83.[address]DOquprp98.6-102.9 [address] [facility]'S Medical CenterComment on above:Performed By: #### CDP, CMPX #### [address] [address] Glass Presser: AMARI Kang Automated0.0 per [address]BCNormal[address]0St[address] Mary'S Medical CenterComment on above:Performed By: #### CDP, CMPX #### [address] [address] Glass Presser: Apolonia Kangtesujata mean volume (Bld) [Entitic vol]11.6 fL Normal8.1-13.5St. Mary'S Medical CenterComment on above:Performed By: #### CDP, CMPX #### [address] [address] Glass Presser: Apolonia Kangtelets (Bld) [#/Vol]299 10*3/mWRmoqwa790-469 St[facility]S Medical CenterComment on above:Performed By: #### CDP, CMPX #### [address] [address] Glass Presser: RADHA KangBC (Bld) [#/Vol]4.14 10*6/uLLow4.21-5.77St. Mary'S Medical CenterComment on above:Performed By: #### CDP, CMPX #### [address] [address] Glass Presser: JUSTINE KangBC (Bld) [#/Vol]11.5 10*3/uLHigh3.5-11.3MSutter Roseville Medical CenterComment on above:Performed By: #### CDP, CMPX #### [address] [address] Glass Presser: Pete Madoff, MDComp Metab w/Bili Pron 41-13-9911Geeemqe [Mass/Vol]3.0 g/dLLow3.5-5.2Mwooster community hospitaly Desert Valley HospitalComment on above: Performed By: #### CDP, CMPX #### [address] [address] Glass Presser: Pete Ward MDAlbumin/Glob Ratio0.9Low1.0-2.5St. Mary'S Medical CenterComment on above:Performed By: #### CDP, CMPX #### [address] [address] Glass Presser: Pete Ward MDAlkaline Phos78 U/FGopdnt99-957PhmtqSt. Mary'S Medical CenterComment on above:Performed By: #### CDP, CMPX #### [address] [address] Glass Presser: Pete Ward MDALT [Catalytic activity/Vol]37 U/LNormal5-41 St[facility]S Medical CenterComment on above:Performed By: #### CDP, CMPX #### [address] [address] Glass Presser: Pete Ward MDAnion gap [Moles/Vol]7 mmol/LLow9-17St. Mary'S Medical CenterComment on above:Performed By: #### CDP, CMPX #### [address] [address] Glass Presser: Pete Ward MDAST [Catalytic activity/Vol]39 U/LNormal<40St. Mary'S Medical CenterComment on above:Performed By: #### CDP, CMPX #### [address] [address] Glass Presser: Pete Ward MDBilirubin [Mass/Vol]0.6 mg/dLNormal0.3-1.2MSutter Roseville Medical CenterComment on above:Performed By: #### CDP, CMPX #### [facility] [address] [place] [address] Glass Presser: Luis Kangirubin, Indirect0.3 mg/dLNormal0.0-1.0St. [facility]'S Medical CenterComment on above:Performed By: #### CDP, CMPX #### [facility] [address] [place] [address] Glass Presser: Luis Kangirubin.indirect [Mass/Vol]0.3 mg/dLHigh<0.3 St[facility]S Medical CenterComment on above:Performed By: #### CDP, CMPX #### [address] [address] Glass Presser: CAILIN Kangalcium [Mass/Vol]9.8 mg/dLNormal8.6-10.4St. [facility]'S Medical CenterComment on above:Performed By: #### CDP, CMPX #### [facility] [address] [place] [address] Glass Presser: CAILIN Kanghloride [Moles/Vol]106 mmol/YBqvutt04-063QojqwSt. Mary'S Medical CenterComment on above:Performed By: #### CDP, CMPX #### [address] [address] Glass Presser: Pete Ward MDCO2 [Moles/Vol]34 mmol/TCnzh46-86VypswSt. Mary'S Medical CenterComment on above:Performed By: #### CDP, CMPX #### [facility] [address] [place] [address] Glass Presser: Pete Ward MDCreatinine [Mass/Vol]0.6 mg/dLLow0.7-1.2MSutter Roseville Medical CenterComment on above:Performed By: #### CDP, CMPX #### [facility] [address] [place] [address] Glass Presser: Pete Ward MDGFR/1.73 sq M.predicted among non-blacks MDRD (S/P/Bld) [Vol rate/Area]mL/min/{1.73_m2}Normal>60St. Mary'S Medical CenterComment on above:Result Comment: These results are not intended for [...] or following therapy that affects renal tubular secretion.Performed By: #### VILMA, CMPX #### [facility] [address] [place] [address] Glass Presser: Pete Ward MDGlucose [Mass/Vol]120 mg/cUEujc43-30PrsjkSutter Roseville Medical CenterComment on above:Performed By: #### VILMA, CMPX #### [facility] [address] [place] [address] Glass Presser: Pete Ward MDPotassium [Moles/Vol]3.3 mmol/LLow3.7-5.3MSutter Roseville Medical CenterComment on above:Performed By: #### CDP, CMPX #### [facility] [address] [place] [address] Glass Presser: Pete Ward MDProtein [Mass/Vol]6.5 g/dLNormal6.4-8.3MSutter Roseville Medical CenterComment on above:Performed By: #### VILMA, CMPX #### [facility] [address] [place] [address] Glass Presser: Pete Ward MDSodium [Moles/Vol]147 mmol/KYhcg250-009SpbuoKaiser Permanente Santa Clara Medical CenterComment on above:Performed By: #### CDP, CMPX #### [facility] [address] [place] [address] Glass Presser: Pete Ward MDUrea nitrogen [Mass/Vol]24 mg/dL59 Wade StreetComment on above:Performed By: #### CDP, CMPX #### [facility] [address] [place] [address] Glass Presser: RHYS Kangrug Scr, Abuse, Uron 03-30-2023 Amphetamine(s),UrNegativeNormalNEGSt. Mary'S Medical CenterComment on above:Result Comment: (Positive cutoff 1000 ng/mL)Performed By: #### PT, RAFFAELE, MG, CBC, CPBILC #### [address] [address] Glass Presser: Pete Ward MDBarbiturate(s),UrNegativeNormlaNEGSt. Mary'S Medical CenterComment on above:Result Comment: (Positive cutoff 200 ng/mL)Performed By: #### PT, RAFFAELE, MG, CBC, CPBILC #### [address] [address] Glass Presser: Pete Ward MDBenzodiazepine(s)PositiveAbnormalNEGSt. Mary'S Medical CenterComment on above:Result Comment: (Positive cutoff 200 ng/mL)Performed By: #### PT, RAFFAELE, MG, CBC, CPBILC #### [facility] [address] [place] [address] Glass Presser: CAILIN Kangannabinoid(s),UrNegativeNormalNEGSt. Mary'S Medical CenterComment on above:Result Comment: (Positive cutoff 50 ng/mL)Performed By: #### PT, RAFFAELE, MG, CBC, CPBILC #### [facility] [address] [place] [address] Glass Presser: CAILIN Kangocaine MetaboliteNegativeNormlaNEGSt. Mary'S Medical CenterComment on above:Result Comment: (Positive cutoff 300 ng/mL)Performed By: #### PT, RAFFAELE, MG, CBC, CPBILC #### [facility] [address] [place] [address] Glass Presser: Pete Ward MDFentanyl, UrineNegativeNormalNEGSt. Mary'S Medical CenterComment on above:Result Comment: (Positive cutoff 5 ng/ml)Performed By: #### PT, RAFFAELE, MG, CBC, CPBILC #### [facility] [address] [place] [address] Glass Presser: Pete Ward MDInterpretive InfoAssay provides medical screening only. The absence of expected drug(s) and/orNormalMerKaiser Permanente Santa Clara Medical CenterComment on above:Result Comment: metabolite(s) may indicate diluted or adulterated urine, limitations of testing or timing of collection. Testing for legal purposes should be confirmed by another method. To request confirmation of test result, please call the lab within 7 days of sample submission.Performed By: #### PT, RAFFAELE, MG, CBC, CPBILC #### [facility] [address] [place] [address] Glass Presser: ANNA Kangethadone Ql (U)NegativeNormalNEGSt. Mary'S Medical CenterComselect specialty hospital-[facility] on above:Result Comment: (Positive cutoff 300 ng/mL)Performed By: #### PT, RAFFAELE, MG, CBC, CPBILC #### [facility] [address] [place] [address] Glass Presser: Pete Ward MDOpiate(s), UrNegativeNormalNEGSt. Mary'S Medical CenterComselect specialty hospital-[facility] on above:Result Comment: (Positive cutoff 300 ng/mL)Performed By: #### PT, RAFFAELE, MG, CBC, CPBILC #### [facility] [address] [place] [address] Glass Presser: Pete Ward MDOxycodone, UrineNegativeNormalNEGMercy Desert Valley HospitalComment on above:Result Comment: (Positive cutoff 100 ng/mL)Performed By: #### PT, RAFFAELE, MG, CBC, CPBILC #### [facility] [address] [place], [place] [phone] Glass Presser: BERTA Kanghencyclidine, UrNegativeNormalNEGMerKaiser Permanente Santa Clara Medical CenterComment on above:Result Comment: (Positive cutoff 25 ng/mL)Performed By: #### PT, RAFFAELE, MG, CBC, CPBILC #### [facility] [address] [place] [address] Glass Presser: Pete Ward MDLactic Acidon 90-34-4371Vlruwb Acid,Whole Bl1.2 mmol/LNormal0.7-2.1[facility] HospitalComment on above:Performed By: #### CDP, CMPX #### [facility] [address] [place] [phone] Glass Presser: ANNA KangRI LIMITED BRAINon [id number] LIMITED BRAIN EXAMINATION: MRI OF THE BRAIN [...] Signed by: Stephanie Phillips MD 03/30/23 Final resultNormalSt. Mary'S Medical CenterUA w/Reflex Cultureon 91-65-7868Vapeiofwd, SemiQt,UrNegativeAbnormalNEGSt. Mary'S Medical CenterComment on above:Performed By: #### PT, RAFFAELE, MG, CBC, CPBILC #### [facility] [address] [place] [address] Glass Presser: Daniela Kang, UrineNegativeNoGuernsey Memorial HospitalComment on above:Performed By: #### PT, RAFFAELE, MG, CBC, CPBILC #### [facility] [address] [place] [address] Glass Presser: CAILIN Kanglarity (U)CloudyAbnormalCLEARMercy Desert Valley HospitalComment on above:Performed By: #### PT, RAFFAELE, MG, CBC, CPBILC #### [facility] [address] [place] [address] Glass Presser: CAILIN Kangolor (U)Dark YellowAbnormalYELMerKaiser Permanente Santa Clara Medical CenterComment on above:Performed By: #### PT, RAFFAELE, MG, CBC, CPBILC #### [facility] [address] [place] [address] Glass Presser: Pete Ward MDGlucose Ql (U)NegativeNormalNEGSt. Mary'S Medical CenterComment on above:Performed By: #### PT, RAFFAELE, MG, CBC, CPBILC #### [facility] [address] [place] [address] Glass Presser: Aliza Kang Ql (U)TRACEAbnormalNEGSt. Mary'S Medical CenterComment on above:Performed By: #### PT, RAFFAELE, MG, CBC, CPBILC #### [facility] [address] [place] [address] Glass Presser: Pete Ward MDLeukocyte esterase Test strip Ql (U)TRACE AbnormalNEGSt. Mary'S Medical CenterComment on above:Performed By: #### PT, RAFFAELE, MG, CBC, CPBILC #### [facility] [address] [place] [address] Glass Presser: Vini Kang,UrNegativeDiley Ridge Medical CenterComment on above:Performed By: #### PT, RAFFAELE, MG, CBC, CPBILC #### [facility] [address] [place] [address] Glass Presser: BERTA Kang,Ur5.7Jgsqoc5.0-8.0St. [facility]'S Medical CenterComment on above:Performed By: #### PT, RAFFAELE, MG, CBC, CPBILC #### [facility] [address] [place] [address] Glass Presser: Concha Kang Ql (U)1+ mg/dLAbnormalNEGSt. Mary'S Medical CenterComment on above:Performed By: #### PT, RAFFAELE, MG, CBC, CPBILC #### [facility] [address] [place] [address] Glass Presser: Tony Kang. [place],Ur1.175Wngd4.005-1.030St. [facility]'S Medical CenterComment on above:Performed By: #### PT, RAFFAELE, MG, CBC, CPBILC #### [facility] [address] [place] [address] Glass Presser: Pete Madoff, MDUrobilinogen,UrNormalNormal0.0-1.0St. [facility]S Medical CenterComment on above:Performed By: #### PT, RAFFAELE, MG, CBC, CPBILC #### [facility] [address] [place] [address] Glass Presser: Pete Ward MDUrinalysis,Microon 07-41-9020UparaeqwPbeyRunlyu NONEMerKaiser Permanente Santa Clara Medical CenterComment on above:Performed By: #### PT, RAFFAELE, MG, CBC, CPBILC #### [facility] [address] [place] [address] Glass Presser: CAILIN Kangasts5 TO 10 HYALINENormal0-8St. Mary'S Medical CenterComment on above:Result Comment: Reference range defined for non- centrifuged specimen.Performed By: #### PT, RAFFAELE, MG, CBC, CPBILC #### [facility] [address] [place] [address] Glass Presser: Pete Ward MDEpithelial cells LM Ql (Urine sed)0 TO 2Normal 0-5St. [facility]S Medical CenterComment on above:Performed By: #### PT, RAFFAELE, MG, CBC, CPBILC #### [facility] [address] [place] [address] Glass Presser: Pete Ward MDUrine RBC's20 TO 13Cxaili9-0ZciwuSt. Mary'S Medical CenterComment on above:Result Comment: Reference range defined for non- centrifuged specimen.Performed By: #### PT, RAFFAELE, MG, CBC, CPBILC #### [facility] [address] [place] [address] Glass Presser: Pete Ward MDUrine WBC's2 TO 9Lmmpuf2-9QhbzlSt. Mary'S Medical CenterComment on above:Performed By: #### PT, RAFFAELE, MG, CBC, CPBILC #### [facility] [address] [place] [address] Glass Presser: Pete Ward MDAmmoniaalma 10-72-2749Txghxfq (P) [Moles/Vol]34 umol/RTlleer52-33VvbkeSt. Mary'S Medical CenterComment on above:Performed By: #### PT, RAFFAELE, MG, CBC, CPBILC #### [address] [address] Glass Presser: Pete Ward M[facility] – IDABELBCon 35-97-1722Tqlavxeievn distribution width (RBC) [Ratio]22.0 %High11.8-14.4St. [facility]S Medical CenterComment on above:Performed By: #### PT, RAFFAELE, MG, CBC, CPBILC #### [address] [address] Glass Presser: Pete Ward MDHematocrit (Bld) [Volume fraction]37.0 %Low 40.7-50.3Mwooster community hospitaly [facility] HospitalComment on above:Performed By: #### PT, RAFFAELE, MG, CBC, CPBILC #### [place] [address] Glass Presser: Pete Ward MDHemoglobin (Bld) [Mass/Vol]9.8 g/dLLow13.0-17.0 [facility] Medical CenterComment on above:Performed By: #### PT, RAFFAELE, MG, CBC, CPBILC #### [facility] [address] [place] [address] Glass Presser: ANNA KangCH (RBC) [Entitic mass]22.2 pgLow25.2-33.5St. [facility]S Medical CenterComment on above:Performed By: #### PT, RAFFAELE, MG, CBC, CPBILC #### [facility] [address] [place] [address] Glass Presser: ANNA KangCHC (RBC) [Mass/Vol]26.5 g/dLLow28.4-34.8St. [facility]S Medical CenterComment on above:Performed By: #### PT, RAFFAELE, MG, CBC, CPBILC #### [address] [address] Glass Presser: ANNA KangCV (RBC) [Entitic vol]83.[address]PAurwnc90.6-102.9 [facility] Medical CenterComment on above:Performed By: #### PT, RAFFAELE, MG, CBC, CPBILC #### [place] [address] Glass Presser: AMARI Kang Automated0.0 per [address]BC[address]0St[address] [facility]'S Medical CenterComment on above:Performed By: #### PT, RAFFAELE, MG, CBC, CPBILC #### [place] [address] Glass Presser: Lisette Kang mean volume (Bld) [Entitic vol]11.5 fL Normal8.1-13.5St. [facility]S Medical CenterComment on above:Performed By: #### PT, RAFFAELE, MG, CBC, CPBILC #### [place] [address] Glass Presser: Afia Kang (Bld) [#/Vol]382 10*3/mYExnhrz859-875 [facility] CenterComment on above:Performed By: #### PT, RAFFAELE, MG, CBC, CPBILC #### [place] [address] Glass Presser: RADHA KangBC (Bld) [#/Vol]4.42 10*6/uLNormal4.21-5.77 [facility] CenterComment on above:Performed By: #### PT, RAFFAELE, MG, CBC, CPBILC #### [facility] [address] [place] [address] Glass Presser: KYLIE Kang (d) [#/Vol]9.5 10*3/uLNormal3.5-11.3MSutter Roseville Medical CenterComment on above:Performed By: #### PT, RAFFAELE, MG, CBC, CPBILC #### [address] [address] Glass Presser: CAILIN Kangomp Metab w/Bili Pron [id number] [Mass/Vol]3.2 g/dLLow3.5-5.2MSutter Roseville Medical CenterComment on above: Performed By: #### PT, RAFFAELE, MG, CBC, CPBILC #### [address] [address] Glass Presser: Pete Ward MDAlbumin/Glob Ratio0.9Low1.0-2.5St. [facility]S Medical CenterComment on above:Performed By: #### PT, RAFFAELE, MG, CBC, CPBILC #### [address] [address] Glass Presser: Pete Wrad MDAlkaline Phos77 U/PYrxnsd46-665LnqeeSt. Mary'S Medical CenterComment on above:Performed By: #### PT, RAFFAELE, MG, CBC, CPBILC #### [facility] [address] [place] [address] Glass Presser: Pete Ward MDALT [Catalytic activity/Vol]45 U/LHigh5-41St. [facility]S Medical CenterComment on above:Performed By: #### PT, RAFFAELE, MG, CBC, CPBILC #### [facility] [address] [place] [address] Glass Presser: Pete Ward MDAnialma gap [Moles/Vol]7 mmol/LLow9-17St. [facility]S Medical CenterComment on above:Performed By: #### PT, RAFFAELE, MG, CBC, CPBILC #### [address] [address] Glass Presser: Pete Ward MDAST [Catalytic activity/Vol]51 U/LHigh<40St. [facility]S Medical CenterComment on above:Performed By: #### PT, RAFFAELE, MG, CBC, CPBILC #### [address] [address] Glass Presser: Pete Ward MDBilirubin [Mass/Vol]0.8 mg/dLNormal0.3-1.2MSutter Roseville Medical CenterComment on above:Performed By: #### PT, RAFFAELE, MG, CBC, CPBILC #### [address] [address] Glass Presser: Luis Kangirubin, Indirect0.3 mg/dLNormal0.0-1.0St. [facility] Medical CenterComment on above:Performed By: #### PT, RAFFAELE, MG, CBC, CPBILC #### [address] [address] Glass Presser: Luis Kangirubin.indirect [Mass/Vol]0.5 mg/dLHigh<0.3 [facility] Medical CenterComment on above:Performed By: #### PT, RAFFAELE, MG, CBC, CPBILC #### [address] [address] Glass Presser: CAILIN Kangalcium [Mass/Vol]9.9 mg/dLNormal8.6-10.4St. [facility] Medical CenterComment on above:Performed By: #### PT, RAFFAELE, MG, CBC, CPBILC #### [address] [address] Glass Presser: CAILIN Kanghloride [Moles/Vol]106 mmol/YPewemx46-698HuxqsSt. Mary'S Medical CenterComment on above:Performed By: #### PT, RAFFAELE, MG, CBC, CPBILC #### [facility] [address] [place] [address] [phone] Glass Presser: Pete Ward MDCO2 [Moles/Vol]37 mmol/YPqmo50-60UtxtuSt. Mary'S Medical CenterComment on above:Performed By: #### PT, RAFFAELE, MG, CBC, CPBILC #### [facility] [address] [place] [address] [phone] Glass Presser: CAILIN Kangreatinine [Mass/Vol]0.6 mg/dLLow0.7-1.2MSutter Roseville Medical CenterComment on above:Performed By: #### PT, RAFFAELE, MG, CBC, CPBILC #### [facility] [address] [place] [phone] Glass Presser: Pete Ward MDGFR/1.73 sq M.predicted among non-blacks MDRD (S/P/Bld) [Vol rate/Area]mL/min/{1.73_m2}Normal>60St. [facility]S Medical CenterComment on above:Result Comment: These results are not intended for [...] or following therapy that affects renal tubular secretion.Performed By: #### PT, RAFFAELE, MG, CBC, CPBILC #### [facility] [address] [place] [phone] Glass Presser: Pete Ward MDGlucose [Mass/Vol]80 mg/tIZzejcw23-31WiihaSutter Roseville Medical CenterComment on above:Performed By: #### PT, RAFFAELE, MG, CBC, CPBILC #### [place] [address] Glass Presser: Pete Ward MDPotassium [Moles/Vol]3.8 mmol/LNormal3.7-5.3 [facility] CenterComment on above:Performed By: #### PT, RAFFAELE, MG, CBC, CPBILC #### [place] [address] Glass Presser: Pete Ward MDProtein [Mass/Vol]6.7 g/dLNormal6.4-8.3MSutter Roseville Medical CenterComment on above:Performed By: #### PT, RAFFAELE, MG, CBC, CPBILC #### [place] [address] Glass Presser: Pete Ward MDSodium [Moles/Vol]150 mmol/JYhic567-302SlklbSt. Mary'S Medical CenterComment on above:Performed By: #### PT, RAFFAELE, MG, CBC, CPBILC #### [place] [address] Glass Presser: Pete Ward MDUrea nitrogen [Mass/Vol]28 mg/dLHigh8-23St. [facility]S Medical CenterComment on above:Performed By: #### PT, RAFFAELE, MG, CBC, CPBILC #### [place] [address] Glass Presser: Pete Ward MDMagnesiumon 71-56-3888Kavdnbear [Mass/Vol]2.3 mg/dLNormal1.6-2.6MSutter Roseville Medical CenterComment on above:Performed By: #### PT, RAFFAELE, MG, CBC, CPBILC #### [place] [address] Glass Presser: BERTA KangTon 32-38-5033DFL Coag (PPP) [Relative time]1.5 {INR}NormalSt. Mary'S Medical CenterComment on above:Result Comment: Therapeutic Range: Moderate Anticoagulant Intensity: INR = 2.0-3.0 High Anticoagulant Intensity: INR = 2.5-3.5Performed By: #### PT, RAFFAELE, MG, CBC, CPBILC #### [address] [address] Glass Presser: DWIGHT Kang Coag (PPP) [Time]18.1 sHigh11.7-14.9St. [facility]'S Medical CenterComment on above:Performed By: #### PT, RAFFAELE, MG, CBC, CPBILC #### [address] [address] Glass Presser: Jay Kang Metabolic Profon 72-68-0167Yssbi gap [Moles/Vol]7 mmol/LLow9-17St. [facility]'S Medical CenterComment on above: Performed By: #### PT, RAFFAELE, MG, CBC, CPBILC #### [address] [address] Glass Presser: CAILIN Kangalcium [Mass/Vol]9.8 mg/dLNormal8.6-10.4St. [facility]S Medical CenterComment on above:Performed By: #### PT, RAFFAELE, MG, CBC, CPBILC #### [facility] [address] [place] [address] Glass Presser: Pete Ward MDChloride [Moles/Vol]105 mmol/HJqcqnk22-144SlrarSt. Mary'S Medical CenterComment on above:Performed By: #### PT, RAFFAELE, MG, CBC, CPBILC #### [facility] [address] [place] [address] Glass Presser: Pete Ward MDCO2 [Moles/Vol]34 mmol/VBhoe86-39WmhpbSt. Mary'S Medical CenterComment on above:Performed By: #### PT, RAFFAELE, MG, CBC, CPBILC #### [facility] [address] [place] [address] Glass Presser: CAILIN Kangreatinine [Mass/Vol]0.6 mg/dLLow0.7-1.2[facility] HospitalComment on above:Performed By: #### PT, RAFFAELE, MG, CBC, CPBILC #### [facility] [address] [place] [address] Glass Presser: Pete Ward MDGFR/1.73 sq M.predicted among non-blacks MDRD (S/P/Bld) [Vol rate/Area]mL/min/{1.73_m2}Normal>60St. [facility]'S Medical CenterComment on above:Result Comment: These results are not intended for [...] or following therapy that affects renal tubular secretion.Performed By: #### PT, RAFFAELE, MG, CBC, CPBILC #### [facility] [address] [place] [address] Glass Presser: Pete Ward MDGlucose [Mass/Vol]91 mg/aGNrvmka58-33Fjovm Desert Valley HospitalComment on above:Performed By: #### PT, RAFFAELE, MG, CBC, CPBILC #### [facility] [address] [place] [address] Glass Presser: BERTA Kangotassium [Moles/Vol]3.5 mmol/LLow3.7-5.3Mer[facility] HospitalComment on above:Performed By: #### PT, RAFFAELE, MG, CBC, CPBILC #### [employer] [address] [place] [address] Glass Presser: DUKE Kangodium [Moles/Vol]146 mmol/NEpwi539-775AxhlrSt. Mary'S Medical CenterComment on above:Performed By: #### PT, RAFFAELE, MG, CBC, CPBILC #### [address] [address] Glass Presser: Pete Ward MDUrea nitrogen [Mass/Vol]27 mg/dLHigh8-23St. Mary'S Medical CenterComment on above:Performed By: #### PT, RAFFAELE, MG, CBC, CPBILC #### [place] [address] Glass Presser: CAILIN KangMetropolitan Saint Louis [facility] 12-94-7144Dquktkibfyy distribution width (RBC) [Ratio]21.9 %High11.8-14.4St. Mary'S Medical CenterComment on above:Performed By: #### PT, RAFFAELE, MG, CBC, CPBILC #### [address] [address] Glass Presser: Pete Ward MDHematocrit (Bld) [Volume fraction]36.5 %Low 40.7-50.3MSutter Roseville Medical CenterComment on above:Performed By: #### PT, RAFFAELE, MG, CBC, CPBILC #### [address] [address] Glass Presser: Pete Ward MDHemoglobin (Bld) [Mass/Vol]9.8 g/dLLow13.0-17.0 [facility]'S Medical CenterComment on above:Performed By: #### PT, RAFFAELE, MG, CBC, CPBILC #### [address] [address] Glass Presser: ANNA KangCH (RBC) [Entitic mass]22.5 pgLow25.2-33.5St. Mary'S Medical CenterComment on above:Performed By: #### PT, RAFFAELE, MG, CBC, CPBILC #### [place] [address] Glass Presser: ANNA KangCHC (RBC) [Mass/Vol]26.8 g/dLLow28.4-34.8St. Mary'S Medical CenterComment on above:Performed By: #### PT, RAFFAELE, MG, CBC, CPBILC #### [place] [address] Glass Presser: ANNA KangCV (RBC) [Entitic vol]83.9 fJLndrub45.6-102.9 [address]S Medical CenterComment on above:Performed By: #### PT, RAFFAELE, MG, CBC, CPBILC #### [place] [address] Glass Presser: AMARI Kang Automated0.0 per [address] Mary'S Medical CenterComment on above:Performed By: #### PT, RAFFAELE, MG, CBC, CPBILC #### [place] [address] Glass Presser: Lisette Kang mean volume (Bld) [Entitic vol]11.3 fL Normal8.1-13.5St. Mary'S Medical CenterComment on above:Performed By: #### PT, RAFFAELE, MG, CBC, CPBILC #### [place] [address] Glass Presser: Afia Kang (Bld) [#/Vol]340 10*3/fKYpaalc164-891 St. [facility]'S Medical CenterComment on above:Performed By: #### PT, RAFFAELE, MG, CBC, CPBILC #### [address] [phone] Glass Presser: RADHA Kang (Bld) [#/Vol]4.35 10*6/uLNormal4.21-5.77 [facility]S Medical CenterComment on above:Performed By: #### PT, RAFFAELE, MG, CBC, CPBILC #### [facility] [address] [place], [place] [phone] Glass Presser: Pete Ward MDCATSKILL REGIONAL MEDICAL CENTER (Bld) [#/Vol]8.5 10*3/uLNormal3.5-11.3Mwooster community hospitaly Desert Valley HospitalComment on above:Performed By: #### PT, RAFFAELE, MG, CBC, CPBILC #### [facility] [address] [place], [place] [phone] Glass Presser: JOAQUIN Kang MODIFIED BARIUM SWALLOW W VIDEOon 03-28-2023 [place] MODIFIED BARIUM SWALLOW W VIDEOEXAMINATION: MODIFIED BARIUM SWALLOW WAS PERFORMED IN CONJUNCTION WITH SPEECH PATHOLOGY SERVICES TECHNIQUE: Under fluoroscopic evaluation cineradiography/videoradiography recordings were performed in conjunction with the speech-language pathologist (DOG RAISER). Various liquid, solid and/or semi-solid barium preparations [...] Signed by: Lopez Senior MD 03/28/23 Final resultNormalMerKaiser Permanente Santa Clara Medical CenterLipid Profileon 03-28-2023 Cholesterol [Mass/Vol]135 mg/dLNormal<200St. Mary'S Medical CenterComment on above:Result Comment: Cholesterol Guidelines: <200 Desirable 200-240 Borderline >240 UndesirablePerformed By: #### PT, RAFFAELE, MG, CBC, CPBILC #### [facility] [address] [place] [address] Glass Presser: CAILIN Kangholesterol in HDL [Mass/Vol]46 mg/dLNormal>40 St[facility]S Medical CenterComment on above:Result Comment: HDL Guidelines: <40 Undesirable 40-59 Borderline >59 DesirablePerformed By: #### PT, RAFFAELE, MG, CBC, CPBILC #### [place] [address] Glass Presser: CAILIN Kangholesterol in LDL [Mass/Vol]69 mg/dLNormal0-130 St[facility]S Medical CenterComment on above:Result Comment: LDL Guidelines: <100 Desirable 100-129 Near to/above Desirable 130-159 Borderline >159 Undesirable Direct (measured) LDL and calculated LDL are not interchangeable tests.Performed By: #### PT, RAFFAELE, MG, CBC, CPBILC #### [facility] [address] [place] [address] Glass Presser: Vandana Kangsterochica.total/Cholesterol in HDL [Mass ratio]2.9 {ratio}Normal<5MerKaiser Permanente Santa Clara Medical CenterComment on above: Performed By: #### PT, RAFFAELE, MG, CBC, CPBILC #### [facility] [address] [place] [address] [phone] Glass Presser: Pete Ward MDTriglyceride [Mass/Vol]101 mg/dLNormal<150St. Mary'S Medical CenterComment on above:Result Comment: Triglyceride Guidelines: <150 Desirable 150-199 Borderline 200-499 High >499 Very high Based on AHA Guidelines for fasting triglyceride, March 2012.Performed By: #### PT, RAFFAELE, MG, CBC, CPBILC #### [facility] [address] [place], [place] [phone] Glass Presser: NANNETTE Kang ABDOMEN FOR NG/OG/NE TUBE PLACEMENTon 65-31-5255WL ABDOMEN FOR NG/OG/NE TUBE PLACEMENTEXAMINATION: ONE SUPINE XRAY VIEW(S) OF THE ABDOMEN [...] Signed by: Torres Macdonald MD 03/28/23 Final resultNormalSt. Mary'S Medical CenterAmmoniaon 51-21-0329Ynvfjxm (P) [Moles/Vol]31 umol/IVcdfjv31-02MvssjSt. Mary'S Medical CenterComment on above:Performed By: #### PT, RAFFAELE, MG, CBC, CPBILC #### [facility] [place], [place] [phone] Glass Presser: Pete Ward MDArterial Blood Gaseson 50-92-1687Douvd TestPASS NormalLouis Stokes Cleveland Va Medical CenterComment on above:Performed By: #### HH #### [facility] [address] [place] [address] [place] [address] Glass Presser: Torres Rick MDBody Temp.37NormalLouis Stokes Cleveland Va Medical CenterComment on above:Performed By: #### HH #### [address] [place] [address] Glass Presser: Torres Rick MDHCO3 (Bld) [Moles/Vol]35.7 mmol/LMlnh28-95GopypLouis Stokes Cleveland Va Medical CenterComment on above:Performed By: #### HH #### [address] [place], [place] [phone] Glass Presser: Torres Rick MDO2 Device/Flow/%CannulaNoGrant Hospital Comment on above:Performed By: #### HH #### [address] [place], [place] 4141283 Glass Presser: Torres Rick MDOxygen (Bld) [Partial pressure]62.7 mm[Hg]Low 80-100MerWood County Hospital HospitalComment on above:Performed By: #### HH #### [address] [place], [place] 1226183 Glass Presser: Torres Rick MDOxygen saturation in Blood91.1 %Nqw30-85Tkfbc Tiffin HospitalComment on above:Performed By: #### HH #### [address] [place], [place] 9367483 Glass Presser: Berta MessinaCO256.5 ipOvMfcm89-21Aqcep Tiffin HospitalComment on above:Performed By: #### HH #### [address] [place], [place] 1878483 Glass Presser: Berta MessinaH (Bld)7.408 [pH]Normal7.35-7.45[facility] HospitalComment on above:Performed By: #### HH #### [address] [place], [place] 3425583 Glass Presser: BERTA Messinaositive Base Excess9.1 mmol/LHigh0.0-2.0MerWood County Hospital HospitalComment on above:Performed By: #### HH #### [address] [place], [place] 9407383 Glass Presser: Dwight Messina. PositionSEMI-FOWLERSNormalPromedica Toledo Hospital HospitalComment on above:Performed By: #### HH #### [facility] [address] [place], [place] 4555883 Glass Presser: Waylon Messina [facility] Brachial ArteryNormalLouis Stokes Cleveland Va Medical CenterComment on above:Performed By: #### HH #### [facility] [address] [place], [place] 9566983 Glass Presser: CAILIN Messina with Diffon 70-04-7996Zyh. Basophil0.00 k/uL Normal0.0-0.2MercSt. Mary Regional Medical CenterComment on above:Performed By: #### PT, RAFFAELE, MG, CBC, CPBILC #### [address] [address] Glass Presser: Grady Kang.Imm.Granulocyte0.00 k/uLNormal0.00-0.30St. Mary'S Medical CenterComment on above:Performed By: #### PT, RAFFAELE, MG, CBC, CPBILC #### [address] [address] Glass Presser: Grady Kang.Neutrophil (Seg)7.65 k/uLNormal1.8-7.7St. Mary'S Medical CenterComment on above:Performed By: #### PT, RAFFAELE, MG, CBC, CPBILC #### [address] [address] Glass Presser: Pete Ward MDBasophils/100 WBC (Bld)0 %Normal0-2MSutter Roseville Medical CenterComment on above:Performed By: #### PT, RAFFAELE, MG, CBC, CPBILC #### [address] [address] Glass Presser: Pete Ward MDEosinophils (Bld) [#/Vol]0.00 10*3/uLNormal 0.0-0.4St. [facility]'S Medical CenterComment on above:Performed By: #### PT, RAFFAELE, MG, CBC, CPBILC #### [facility] [address] [place] [address] Glass Presser: Pete Ward MDEosinophils/100 WBC (Bld)0 %Low1-4St. [facility]'S Medical CenterComment on above:Performed By: #### PT, RAFFAELE, MG, CBC, CPBILC #### [facility] [address] [place] [address] Glass Presser: Pete Ward MDImmature granulocytes/100 WBC (Bld)0 %Normal0 [facility] [facility]'S Medical CenterComment on above:Performed By: #### PT, RAFFAELE, MG, CBC, CPBILC #### [facility] [address] [place] [address] Glass Presser: Pete Ward MDLymphocytes (Bld) [#/Vol]0.50 10*3/uLLow1.0-4.8 [facility]S Medical CenterComment on above:Performed By: #### PT, RAFFAELE, MG, CBC, CPBILC #### [facility] [address] [place] [address] Glass Presser: Pete Ward MDLymphocytes/100 WBC (Bld)6 %Bjk00-88PlwlgSt. Mary'S Medical CenterComment on above:Performed By: #### PT, RAFFAELE, MG, CBC, CPBILC #### [facility] [address] [place] [address] Glass Presser: ANNA Kangonocytes (Bld) [#/Vol]0.25 10*3/uLNormal0.1-0.8 [facility]'S Medical CenterComment on above:Performed By: #### PT, RAFFAELE, MG, CBC, CPBILC #### [facility] [address] [place] [address] Glass Presser: ANNA Kangonocytes/100 WBC (Bld)3 %Normal1-7St. Mary'S Medical CenterComment on above:Performed By: #### PT, RAFFAELE, MG, CBC, CPBILC #### [address] [address] Glass Presser: ANNA Kangorphology Luis (Bld) [Interp]ANISOCYTOSIS PRESENTNormalSt. Mary'S Medical CenterComment on above:Result Comment: HYPOCHROMIA PRESENT 1+ ELLIPTOCYTESPerformed By: #### PT, RAFFAELE, MG, CBC, CPBILC #### [place] [address] Glass Presser: Pete Ward MDNeutrophil (Seg)91 %Skmc29-37KssprSt. Mary'S Medical CenterComment on above:Performed By: #### PT, RAFFAELE, MG, CBC, CPBILC #### [place] [address] Glass Presser: Pete Ward MDErythrocyte distribution width (RBC) [Ratio]22.4 %High11.8-14.4St. Mary'S Medical CenterComment on above:Performed By: #### PT, RAFFAELE, MG, CBC, CPBILC #### [place] [address] Glass Presser: Pete Ward MDHematocrit (Bld) [Volume fraction]38.1 %Low 40.7-50.3MSutter Roseville Medical CenterComment on above:Performed By: #### PT, RAFFAELE, MG, CBC, CPBILC #### [facility] [address] [place] [address] Glass Presser: Pete Ward MDHemoglobin (Bld) [Mass/Vol]10.3 g/dLLow13.0-17.0 St[facility]'S Medical CenterComment on above:Performed By: #### PT, RAFFAELE, MG, CBC, CPBILC #### [address] [address] Glass Presser: ANNA KangCH (RBC) [Entitic mass]22.3 pgLow25.2-33.5St. Mary'S Medical CenterComment on above:Performed By: #### PT, RAFFAELE, MG, CBC, CPBILC #### [place] [address] Glass Presser: CORWIN KangC (RBC) [Mass/Vol]27.0 g/dLLow28.4-34.8St. Mary'S Medical CenterComment on above:Performed By: #### PT, RAFFAELE, MG, CBC, CPBILC #### [place] [address] Glass Presser: ANNA KangCV (RBC) [Entitic vol]82.[address]XNrdflq38.6-102.9 [facility]S Medical CenterComment on above:Performed By: #### PT, RAFFAELE, MG, CBC, CPBILC #### [place] [address] Glass Presser: Pete Ward MDNRBC Automated0.0 per [address] Mary'S Medical CenterComment on above:Performed By: #### PT, RAFFAELE, MG, CBC, CPBILC #### [place] [address] Glass Presser: Apolonia Kangtesujata mean volume (Bld) [Entitic vol]11.5 fL Normal8.1-13.5St. [facility]'S Medical CenterComment on above:Performed By: #### PT, RAFFAELE, MG, CBC, CPBILC #### [address] [address] Glass Presser: Afia Kang (Bld) [#/Vol]432 10*3/nKFnkwjc924-977 [facility]S Medical CenterComment on above:Performed By: #### PT, RAFFAELE, MG, CBC, CPBILC #### [facility] [address] [place], [place] 7515508 Glass Presser: RADHA Kang ([facility]) [#/Vol]4.61 10*6/uLNormal4.21-5.77 [facility] Medical CenterComment on above:Performed By: #### PT, RAFFAELE, MG, CBC, CPBILC #### [facility] [address] [place], [place] [phone] Glass Presser: JUSTINE Kang ([facility]) [#/Vol]8.4 10*3/uLNormal3.5-11.3MSutter Roseville Medical CenterComment on above:Performed By: #### PT, RAFFAELE, MG, CBC, CPBILC #### [facility] [address] [place], [place] 4543708 Glass Presser: WENDI Kang HEAD NECK W WO CONTRASTon 99-99-2896IBH HEAD NECK W WO CONTRASTEXAMINATION: CTA OF THE HEAD AND NECK WITH [...] right upper lobe, may be related to infection/inflammation versus neoplasm. Follow-up is recommended. Interpreted by: Phil Villegas MD Signed by: Phil Villegas MD 03/27/23 Final resultNormalMercy Day Kimball HospitalCalcium, Ionicon 61-71-1676Oiiwvzu [Moles/Vol]1.25 mmol/LNormal1.13-1.33[facility] HospitalComment on above:Performed By: #### PT, RAFFAELE, MG, CBC, CPBILC #### [address] [address] Glass Presser: CAILIN Kangomp Metabolic Pr/rfx MGon 23-58-1359Rfkwzkv [Mass/Vol]3.4 g/dLLow3.5-5.2MSutter Roseville Medical CenterComment on above: Performed By: #### PT, RAFFAELE, MG, CBC, CPBILC #### [address] [address] Glass Presser: Pete Ward MDAlbumin/Glob Ratio0.9Low1.0-2.5St. [facility]'S Medical CenterComment on above:Performed By: #### PT, RAFFAELE, MG, CBC, CPBILC #### [address] [address] Glass Presser: Pete Ward MDAlregineline Phos79 U/JJvemni68-464ElxrnSt. Mary'S Medical CenterComment on above:Performed By: #### PT, RAFFAELE, MG, CBC, CPBILC #### [address] [address] Glass Presser: Pete Ward MDALT [Catalytic activity/Vol]28 U/LNormal5-41 [facility]S Medical CenterComment on above:Performed By: #### PT, RAFFAELE, MG, CBC, CPBILC #### [address] [address] Glass Presser: Pete Ward MDAnialma gap [Moles/Vol]11 mmol/LNormal9-17St. [facility]'S Medical CenterComment on above:Performed By: #### PT, RAFFAELE, MG, CBC, CPBILC #### [address] [address] Glass Presser: Pete Ward MDAST [Catalytic activity/Vol]44 U/LHigh<40St. [facility]'S Medical CenterComment on above:Performed By: #### PT, RAFFAELE, MG, CBC, CPBILC #### [facility] [address] [place] [address] Glass Presser: Pete Ward MDBilirubin [Mass/Vol]0.6 mg/dLNormal0.3-1.2MSutter Roseville Medical CenterComment on above:Performed By: #### PT, RAFFAELE, MG, CBC, CPBILC #### [facility] [address] [place] [address] Glass Presser: CAILIN Kangalcium [Mass/Vol]10.5 mg/dLHigh8.6-10.4St. [facility]S Medical CenterComment on above:Performed By: #### PT, RAFFAELE, MG, CBC, CPBILC #### [place] [address] Glass Presser: CAILIN Kanghloride [Moles/Vol]101 mmol/MMtticd40-543QnirgSt. Mary'S Medical CenterComment on above:Performed By: #### PT, RAFFAELE, MG, CBC, CPBILC #### [address] [address] Glass Presser: Pete Ward MDCO2 [Moles/Vol]33 mmol/ISnib98-45SasvaSt. Mary'S Medical CenterComment on above:Performed By: #### PT, RAFFAELE, MG, CBC, CPBILC #### [facility] [address] [place] [address] Glass Presser: CAILIN Kangreatinine [Mass/Vol]0.6 mg/dLLow0.7-1.2MSutter Roseville Medical CenterComment on above:Performed By: #### PT, RAFFAELE, MG, CBC, CPBILC #### [facility] [address] [place] [address] Glass Presser: Pete Ward MDGFR/1.73 sq M.predicted among non-blacks MDRD (S/P/Bld) [Vol rate/Area]mL/min/{1.73_m2}Normal>60St. [facility]'S Medical CenterComment on above:Result Comment: These results are not intended for [...] or following therapy that affects renal tubular secretion.Performed By: #### PT, RAFFAELE, MG, CBC, CPBILC #### [facility] [address] [place] [address] Glass Presser: Pete Ward MDGlucose [Mass/Vol]111 mg/fNJfnk64-66PquqoSutter Roseville Medical CenterComment on above:Performed By: #### PT, RAFFAELE, MG, CBC, CPBILC #### [facility] [address] [place] [address] Glass Presser: Pete Ward MDPotassium [Moles/Vol]3.8 mmol/LNormal3.7-5.3 [facility] Medical CenterComment on above:Performed By: #### PT, RAFFAELE, MG, CBC, CPBILC #### [facility] [address] [place] [address] Glass Presser: Pete Ward MDProtein [Mass/Vol]7.3 g/dLNormal6.4-8.3MSutter Roseville Medical CenterComment on above:Performed By: #### PT, RAFFAELE, MG, CBC, CPBILC #### [facility] [address] [place] [address] Glass Presser: Pete Ward MDSodium [Moles/Vol]145 mmol/RRxro829-322NklhdSt. Mary'S Medical CenterComment on above:Performed By: #### PT, RAFFAELE, MG, CBC, CPBILC #### [facility] [address] [place] [address] Glass Presser: Pete Ward MDUrea nitrogen [Mass/Vol]26 mg/dLHigh8-23St. [facility] Medical CenterComment on above:Performed By: #### PT, RAFFAELE, MG, CBC, CPBILC #### [address] [address] Glass Presser: Pete Ward MDAlbumin [Mass/Vol]3.5 g/dLNormal3.5-5.2Mwooster community hospitaly Day Kimball HospitalComment on above:Performed By: #### FEBC #### [address] [address] Glass Presser: Pete Ward MD #### CDP #### [address] [place] 6208283 Glass Presser: Torres Rick MDAlbumin/Glob Ratio0.9Low1.0-2.5Louis [facility] Cleveland Va Medical CenterComment on above:Performed By: #### FEBC #### [address] [address] Glass Presser: Pete Ward MD #### CDP #### [address] [place], [place] 1678183 Glass Presser: Emely Messinakaline Phos78 U/JWamzdl06-141ZktwdLouis Stokes Cleveland Va Medical CenterComment on above:Performed By: #### FEBC #### [address] [address] Glass Presser: Pete Ward MD #### CDP #### [address] [place] [address] Glass Presser: Torres Rick MDALT [Catalytic activity/Vol]20 U/LNormal5-41Louis [facility] Medical CenterComment on above:Performed By: #### FEBC #### [address] [address] Glass Presser: Pete Ward MD #### CDP #### [address] [place] [address] Glass Presser: Torres Rick MDAnion gap [Moles/Vol]8 mmol/LLow9-17Louis [facility] Medical CenterComment on above:Performed By: #### FEBC #### [address] [address] Glass Presser: Pete Ward MD #### CDP #### [facility] [address] [place] [address] Dr. [place] 6208283 Glass Presser: Torres Rick MDAST [Catalytic activity/Vol]33 U/LNormal<40Louis [facility] Medical CenterComment on above:Performed By: #### FEBC #### [address] [address] Glass Presser: Pete Ward MD #### CDP #### [facility] [address] [place] [address] Dr. [place] 6208283 Glass Presser: Torres Rick MDBilirubin [Mass/Vol]0.5 mg/dLNormal0.3-1.2Mer[facility] Day Kimball HospitalComment on above:Performed By: #### FEBC #### [address] [address] Glass Presser: Pete Ward MD #### CDP #### [address] [place], [place] 0710083 Glass Presser: Torres Rick MDBUN/CRE Xjdsw60Jsmr1-75LfbydLouis Stokes [facility] Center Comment on above:Performed By: #### FEBC #### [address] [address] Glass Presser: Pete Ward MD #### CDP #### [address] [place] [address] Glass Presser: CAILIN Messinaalcium [Mass/Vol]10.6 mg/dLHigh8.6-10.4Louis [facility] Medical CenterComment on above:Performed By: #### FEBC #### [address] [address] Glass Presser: Pete Ward MD #### CDP #### [address] [place] [address] Glass Presser: CAILIN Messinahloride [Moles/Vol]105 mmol/KZfhsuv36-020Ookeq Tiffin HospitalComment on above:Performed By: #### FEBC #### [address] [address] Glass Presser: Pete Ward MD #### CDP #### [address] [place] [address] Glass Presser: CAILIN MessinaO2 [Moles/Vol]35 mmol/KVyzn49-08YbgblLouis Stokes Cleveland Va Medical CenterComment on above:Performed By: #### FEBC #### [address] [address] Glass Presser: Pete Ward MD #### CDP #### [address] [place] [address] Glass Presser: CAILIN Messinareatinine [Mass/Vol]0.5 mg/dLLow0.7-1.2MKindred Healthcare HospitalComment on above:Performed By: #### FEBC #### [address] [address] Glass Presser: Pete Ward MD #### CDP #### [address] [place], [place] 1153283 Glass Presser: Torres Rick MDGFR/1.73 sq M.predicted among non-blacks MDRD (S/P/Bld) [Vol rate/Area]mL/min/{1.73_m2}Normal>60MerMilford HospitalComment on above:Result Comment: These results are not intended for [...] or following therapy that affects renal tubular secretion.Performed By: #### FEBC #### [address] [phone] Glass Presser: Pete Ward MD #### CDP #### [address] [place] [address] Glass Presser: Torres Rick MDGlucose [Mass/Vol]88 mg/kTUeucep60-59QrnfxWVUMedicine Harrison Community HospitalComment on above:Performed By: #### FEBC #### [address] [address] Glass Presser: Pete Ward MD #### CDP #### [address] [place] [address] Glass Presser: Torres Rick MDPotassium [Moles/Vol]3.6 mmol/LLow3.7-5.3Mwooster community hospitaly Day Kimball HospitalComment on above:Performed By: #### FEBC #### [address] [address] Glass Presser: Pete Ward MD #### CDP #### [address] [place] [address] Glass Presser: Torres Rick MDProtein [Mass/Vol]7.2 g/dLNormal6.4-8.3MWVUMedicine Harrison Community HospitalComment on above:Performed By: #### FEBC #### [address] [address] Glass Presser: Pete Ward MD #### CDP #### [address] [place], [place] 9602883 Glass Presser: DUKE Messinaodium [Moles/Vol]148 mmol/UWhhd829-888EfrzwLouis Stokes Cleveland Va Medical CenterComment on above:Performed By: #### FEBC #### [address] [address] Glass Presser: Pete Ward MD #### CDP #### [address] [place], [place] 7259483 Glass Presser: Torres Rick MDUrea nitrogen [Mass/Vol]20 mg/dLNocount includes the [facility] Medical CenterComment on above:Performed By: #### FEBC #### [address] [address] Glass Presser: Pete Ward MD #### CDP #### [address] [place], [place] 3498583 Glass Presser: Torres Rick MDHemoglobin A1Con 78-28-1598Hdvzozw [Mass/Vol]94 mg/dLOhioHealth Berger HospitalComment on above:Result Comment: The ADA and AACC recommend providing the estimated average glucose result to permit better patient understanding of their HBA1c result.Performed By: #### PT, RAFFAELE, MG, CBC, CPBILC #### [address] [address] Glass Presser: Pete Ward MDHbA1c (Bld) [Mass fraction]4.9 %Normal4.0-6.0 [facility]S Medical CenterComment on above:Performed By: #### PT, RAFFAELE, MG, CBC, CPBILC #### [facility] [address] [place] [address] Glass Presser: Katharina Kanggnesiumon 73-47-0439Mltbmqbwy [Mass/Vol]2.1 mg/dLNormal1.6-2.6[facility] HospitalComment on above:Performed By: #### PT, RAFFAELE, MG, CBC, CPBILC #### [facility] [address] [place] [address] Glass Presser: Vicente Kang [id number] Coag (PPP) [Relative time]1.4 {INR}NormalSt. Mary'S Medical CenterComment on above:Result Comment: Therapeutic Range: Moderate Anticoagulant Intensity: INR = 2.0-3.0 High Anticoagulant Intensity: INR = 2.5-3.5Performed By: #### PT, RAFFAELE, MG, CBC, CPBILC #### [facility] [address] [place] [address] Glass Presser: BERTA KangT Coag (PPP) [Time]17.1 sHigh11.7-14.9St. Mary'S Medical CenterComment on above:Performed By: #### PT, RAFFAELE, MG, CBC, CPBILC #### [facility] [address] [place] [address] Glass Presser: Moisés Kangsphoerics, Inorg.on 37-24-8070Fifrbmdhog, Inorg.4.2 mg/dLNormal2.5-4.5St. Mary'S Medical CenterComment on above: Performed By: #### PT, RAFFAELE, MG, CBC, CPBILC #### [facility] [address] [place] [address] Glass Presser: EBRTA Kangrocalcitoninon 23-73-1891Ilauhrvqqjjrt6.03 ng/mLNormal<0.09MerKaiser Permanente Santa Clara Medical CenterComment on above:Result Comment: Suspected Sepsis: <0.50 ng/mL Low likelihood [...] entered into the Change in Procalcitonin Calculator (www.rtpdnl-hvw-[email or web address].Citus Data) to determine the patient's Mortality Risk Prognosis In healthy neonates, plasma Procalcitonin (PCT) concentrations increase gradually after , reaching peak values at about 24 hours of age then decrease to normal values below 0.5 ng/mL by 48-72 hours of age.Performed By: #### PT, RAFFAELE, MG, CBC, CPBILC #### [address] [place], [place] [id number] Glass Presser: SHARON Kang w/reflex to FT4on 19-84-6471Ptpkiyh Stim. Horm.0.78 uIU/mLNormal0.30-5.00St. Mary'S Medical CenterComment on above: Performed By: #### PT, RAFFAELE, MG, CBC, CPBILC #### [address] [place] [address] Glass Presser: Nicholas Kang Blood Gaseson 42-09-4548Mstwq TestPASS [facility] City HospitalComment on above:Performed By: #### HH #### [facility] [address] [place] [address] [place] [address] Glass Presser: Torres Rick MDThomasville Regional Medical Centerp.37NormalLouis Stokes Cleveland Va Medical CenterComment on above:Performed By: #### HH #### [facility] [address] [place], [place] [id number] Glass Presser: Torres Rick MDHCO3 (Bld) [Moles/Vol]35.9 mmol/UUyht14-80LtebrLouis Stokes Cleveland Va Medical CenterComment on above:Performed By: #### HH #### [address] [place], [place] 5966883 Glass Presser: Torres Rick MDO2 Device/Flow/%CannulaNormalLouis Stokes Cleveland Va Medical Center Comment on above:Result Comment: 2Performed By: #### HH #### [address] [place], [place] [id number] Glass Presser: Torres Rick MDOxygen (Bld) [Partial pressure]54.0 mm[Hg]Low 80-100MerWood County Hospital HospitalComment on above:Performed By: #### HH #### [address] [place], [place] 3270083 Glass Presser: Torres Rick MDOxygen saturation in Blood87.4 %Wfo67-26BsjjyLouis Stokes Cleveland Va Medical CenterComment on above:Performed By: #### HH #### [address] [place], [place] 1916283 Glass Presser: Berta MessinaCO254.8 aqMwYhdk98-93Yupce Tiffin HospitalComment on above:Performed By: #### HH #### [address] [place], [place] 7907483 Glass Presser: Berta MessinaH (Bld)7.425 [pH]Normal7.35-7.45[facility] HospitalComment on above:Performed By: #### HH #### [address] [place], [place] 8548183 Glass Presser: BERTA Messinaositive Base Excess9.9 mmol/LHigh0.0-2.0[facility] HospitalComment on above:Performed By: #### HH #### [facility] [address] [place], [place] 9798783 Glass Presser: RADHA Messinacynthia [place] [address] /minLima City Hospital Comment on above:Performed By: #### HH #### [facility] [address] [place], [place] 0493983 Glass Presser: Waylon Messina [facility] Brachial ArteryDiley Ridge Medical Center HospitalComment on above:Performed By: #### HH #### [facility] [address] [place], [place] 3386883 Glass Presser: CAILIN MessinaMetropolitan Saint Louis Psychiatric Center 62-56-0369Wbgjulyjtpg distribution width (RBC) [Ratio]22.0 %High11.8-14.4Louis [facility] Va Medical CenterComment on above:Performed By: #### FEBC #### [address] [address] Glass Presser: Pete Ward MD #### CDP #### [address] [place], [place] 0112883 Glass Presser: Torres Rick MDHematocrit (Bld) [Volume fraction]34.4 %Low 40.7-50.3[facility] [place] HospitalComment on above:Performed By: #### FEBC #### [address] [address] Glass Presser: Pete Ward MD #### CDP #### [address] [place], [place] 5506483 Glass Presser: Torres Rick MDHemoglobin (Bld) [Mass/Vol]9.3 g/dLLow13.0-17.0 [facility] Medical CenterComment on above:Performed By: #### FEBC #### [address] [address] Glass Presser: Pete Ward MD #### CDP #### [address] [place], [place] 0184383 Glass Presser: CORWIN Messina (RBC) [Entitic mass]22.4 pgLow25.2-33.5Louis [facility] Va Medical CenterComment on above:Performed By: #### FEBC #### [address] [address] Glass Presser: Pete Ward MD #### CDP #### [address] [place], [place] 8129483 Glass Presser: CORWIN MessinaC (RBC) [Mass/Vol]27.0 g/dLLow28.4-34.8Louis [facility] Va Medical CenterComment on above:Performed By: #### FEBC #### [address] [address] Glass Presser: Pete Ward MD #### CDP #### [address] [place], [place] 0885683 Glass Presser: SHANTI Messina (RBC) [Entitic vol]82.9 eCJabybw16.6-102.9 [facility] Medical CenterComment on above:Performed By: #### FEBC #### [address] [address] Glass Presser: Pete Ward MD #### CDP #### [address] [place] [address] Glass Presser: Torres Rick MDNRBC Automated0.2 per 100 WBCHigh0.0Louis [facility] Va Medical CenterComment on above:Performed By: #### FEBC #### [address] [address] Glass Presser: Pete Ward MD #### CDP #### [address] [place] [address] Glass Presser: Lisette Messina mean volume (Bld) [Entitic vol]11.8 fL Normal8.1-13.5Louis [facility] Va Medical CenterComment on above:Performed By: #### FEBC #### [address] [address] Glass Presser: Pete Ward MD #### CDP #### [address] [place] [address] Glass Presser: Afia Messina (Bld) [#/Vol]406 10*3/lAJtvfar986-968 [facility] Medical CenterComment on above:Performed By: #### FEBC #### [address] [address] Glass Presser: Pete Ward MD #### CDP #### [address] [place] [address] Glass Presser: RADHA MessinaBC (Bld) [#/Vol]4.15 10*6/uLLow4.21-5.77Louis [facility] Medical CenterComment on above:Performed By: #### FEBC #### [address] [address] Glass Presser: Pete Ward MD #### CDP #### [address] [place] [address] Glass Presser: Torres Rick MDWBC (Bld) [#/Vol]12.3 10*3/uLHigh3.5-11.3MWVUMedicine Harrison Community HospitalComment on above:Performed By: #### FEBC #### [address] [address] Glass Presser: Pete Ward MD #### CDP #### [address] [place] [address] Glass Presser: CAILIN Messinajordan valley medical center Metabolic Pr/rfx MGon 69-05-5539Awnfwpq [Mass/Vol]3.6 g/dLNormal3.5-5.2[facility] [place] HospitalComment on above:Performed By: #### FEBC #### [address] [address] Glass Presser: Pete Ward MD #### CDP #### [address] [place] [address] Glass Presser: Torres Rick MDAlbumin/Glob Ratio1.4Ibwfew1.0-2.5MerMilford HospitalComment on above:Performed By: #### FEBC #### [address] [address] Glass Presser: Pete Ward MD #### CDP #### [address] [place] [address] Glass Presser: Tio Messina Phos77 U/PTcuqmq19-538RzvwxLouis Stokes Cleveland Va Medical CenterComment on above:Performed By: #### FEBC #### [address] [address] Glass Presser: Pete Ward MD #### CDP #### [address] [place] [address] Glass Presser: Torres Rick MDALT [Catalytic activity/Vol]18 U/LNormal5-41[facility] Medical CenterComment on above:Performed By: #### FEBC #### [address] [address] Glass Presser: Pete Ward MD #### CDP #### [address] [place], [place] 3005383 Glass Presser: Torres Sturtz, MDAnion gap [Moles/Vol]4 mmol/LLow9-17Louis [facility] Medical CenterComment on above:Performed By: #### FEBC #### [facility] [address] [place] [address] Glass Presser: Pete Ward MD #### CDP #### [facility] [address] [place] [address] Dr[place], [place] 4168183 Glass Presser: Torrse Rick MDAST [Catalytic activity/Vol]50 U/LHigh<40[facility] HospitalComment on above:Performed By: #### FEBC #### [address] [address] Glass Presser: Pete Ward MD #### CDP #### [facility] [address] [place] [address] Dr[address] [place] 6208283 Glass Presser: Torres Rick MDBilirubin [Mass/Vol]0.4 mg/dLNormal0.3-1.2MercRegional Medical Center HospitalComment on above:Performed By: #### FEBC #### [address] [address] Glass Presser: Pete Ward MD #### CDP #### [address] [place], [place] 0254483 Glass Presser: Torres Rick MDBUN/CRE Qmolb23Cnkh3-22NlgwsLouis Stokes Cleveland Va Medical Center Comment on above:Performed By: #### FEBC #### [facility] [address] [place] [address] Glass Presser: Pete Ward MD #### CDP #### [facility] [address] [place] [address] [place] [place], [place] 6392583 Glass Presser: CAILIN Messinaalcium [Mass/Vol]10.6 mg/dLHigh8.6-10.4[facility] Medical CenterComment on above:Performed By: #### FEBC #### [address] [address] Glass Presser: Pete Ward MD #### CDP #### [address] [place], [place] 9282883 Glass Presser: CAILIN Messinahloride [Moles/Vol]106 mmol/ZDlkvcv50-038ZiyywLouis Stokes Cleveland Va Medical CenterComment on above:Performed By: #### FEBC #### [address] [address] Glass Presser: Pete Ward MD #### CDP #### [address] [place] [address] Glass Presser: Torres Rick MDCO2 [Moles/Vol]39 mmol/EMtml01-14PimnmLouis Stokes Cleveland Va Medical CenterComment on above:Performed By: #### FEBC #### [address] [address] Glass Presser: Pete Ward MD #### CDP #### [address] [place] 6208283 Glass Presser: CAILIN Messinareatinine [Mass/Vol]0.5 mg/dLLow0.7-1.2[facility]ball HospitalComment on above:Performed By: #### FEBC #### [address] [address] Glass Presser: Pete Ward MD #### CDP #### [address] [place] [address] Glass Presser: Torres Rick MDGFR/1.73 sq M.predicted among non-blacks MDRD (S/P/Bld) [Vol rate/Area]mL/min/{1.73_m2}Normal>60[facility] Medical CenterComment on above:Result Comment: These results are not intended for [...] or following therapy that affects renal tubular secretion.Performed By: #### FEBC #### [address] [address] Glass Presser: Pete Ward MD #### CDP #### [address] [place], [place] 8507183 Glass Presser: Torres Rick MDGlucose [Mass/Vol]105 mg/jMWttf95-28KjtxhWVUMedicine Harrison Community HospitalComment on above:Performed By: #### FEBC #### [address] [address] Glass Presser: Pete Ward MD #### CDP #### [address] [place], [place] 8993383 Glass Presser: Torres Rick MDPotassium [Moles/Vol]4.5 mmol/LNormal3.7-5.3[facility] [place] HospitalComment on above:Performed By: #### FEBC #### [address] [address] Glass Presser: Pete Ward MD #### CDP #### [address] [place], [place] 3713883 Glass Presser: Torres Rick MDProtein [Mass/Vol]7.2 g/dLNormal6.4-8.3[facility] HospitalComment on above:Performed By: #### FEBC #### [address] [address] Glass Presser: Pete Ward MD #### CDP #### [address] [place] 7680183 Glass Presser: DUKE Messinaodium [Moles/Vol]149 mmol/VTxpm645-186DzbviLouis Stokes Cleveland Va Medical CenterComment on above:Performed By: #### FEBC #### [address] [place], [place] 4624308 Glass Presser: Pete Ward MD #### CDP #### [address] [place], [place] 7382883 Glass Presser: Trudi Messina nitrogen [Mass/Vol]19 mg/dLNormal8-23Louis [facility] Medical CenterComment on above:Performed By: #### FEBC #### [address] [address] Glass Presser: Pete Ward MD #### CDP #### [address] [place] 6208283 Glass Presser: Nicholas Messina Blood Gaseson 16-79-2990Hkppr TestPASS NormalLouis Stokes Cleveland Va Medical CenterComment on above:Performed By: #### ABG #### [address] [place], [place] 1201683 Glass Presser: Torres Rick MDBody Temp.37NormalLouis Stokes Cleveland Va Medical CenterComment on above:Performed By: #### ABG #### [address] [place], [place] 7617883 Glass Presser: Torres Rick MDHCO3 (Bld) [Moles/Vol]39.0 mmol/ZSato04-18FuowcLouis Stokes Cleveland Va Medical CenterComment on above:Performed By: #### ABG #### [address] [place] [address] Glass Presser: Torres Rick MDO2 Device/Flow/%CannulaNoGrant Hospital Comment on above:Result Comment: 3Performed By: #### ABG #### [address] [place], [place] 6459683 Glass Presser: Torres Rick MDOxygen (Bld) [Partial pressure]59.8 mm[Hg]Low 80-100MerWood County Hospital HospitalComment on above:Performed By: #### ABG #### [address] [place], [place] 2885783 Glass Presser: Torres Rick MDOxygen saturation in Blood90.2 %Dvp36-08Kcatu Tiffin HospitalComment on above:Performed By: #### ABG #### [address] [place], [place] 4914483 Glass Presser: Berta MessinaCO259.2 lcWdZhnb97-16Mbcyd Tiffin HospitalComment on above:Performed By: #### ABG #### [address] [place], [place] 3061683 Glass Presser: Berta MessinaH (Bld)7.426 [pH]Normal7.35-7.45MerWood County Hospital HospitalComment on above:Performed By: #### ABG #### [address] [place], [place] 0066183 Glass Presser: BERTA Messinaositive Base Xmcvvg96.5 mmol/LHigh0.0-2.0MerWood County Hospital HospitalComment on above:Performed By: #### ABG #### [address] [place], [place] 4303683 Glass Presser: CAILIN MessinaBCalma 71-44-9498Nporgekzojf distribution width (RBC) [Ratio]21.5 %High11.8-14.4MerWood County Hospital HospitalComment on above:Performed By: #### B12FOL #### [facility] [address] [place] [address] [id number] Glass Presser: Pete Ward MDHematocrit (Bld) [Volume fraction]30.5 %Low 40.7-50.3Mwooster community hospitaly [place] HospitalComment on above:Performed By: #### B12FOL #### [address] [address] Glass Presser: Pete Ward MDHemoglobin (Bld) [Mass/Vol]8.4 g/dLLow13.0-17.0 [facility] HospitalComment on above:Performed By: #### B12FOL #### [place] [address] Glass Presser: ANNA KangCH (RBC) [Entitic mass]22.8 pgLow25.2-33.5[facility] HospitalComment on above:Performed By: #### B12FOL #### [place] [address] Glass Presser: ANNA KangCHC (RBC) [Mass/Vol]27.5 g/dLLow28.4-34.8[facility] HospitalComment on above:Performed By: #### B12FOL #### [place] [address] Glass Presser: ANNA KangCV (RBC) [Entitic vol]82.9 xQUnjoqq64.6-102.9 [facility] HospitalComment on above:Performed By: #### B12FOL #### [place] [address] Glass Presser: Pete Ward MDNRBC Automated0.0 per 100 WBCNormal0.0[facility] HospitalComment on above:Performed By: #### B12FOL #### [place] [address] Glass Presser: BERTA Kanglatelet mean volume (Bld) [Entitic vol]11.6 fL Normal8.1-13.5[facility] HospitalComment on above:Performed By: #### B12FOL #### [facility] [address] [place] [address] Glass Presser: Afia Kang ([facility]) [#/Vol]378 10*3/pEBzqsrr155-143 [facility] HospitalComment on above:Performed By: #### B12FOL #### [facility] [address] [place] [address] Glass Presser: Pete Ward MDRBC (d) [#/Vol]3.68 10*6/uLLow4.21-5.77[facility] HospitalComment on above:Performed By: #### B12FOL #### [facility] [address] [place] [address] Glass Presser: JUSTINE Kang (d) [#/Vol]12.4 10*3/uLHigh3.5-11.3MKindred Healthcare HospitalComment on above:Performed By: #### B12FOL #### [facility] HospitalNumedeon [address] [place] [address] Glass Presser: CRISTI Kang CHEST PULMONARY EMBOLISM W CONTRASTon 25-33-8491XZ CHEST PULMONARY EMBOLISM W CONTRASTEXAMINATION: CTA OF THE CHEST 03/23/2023 1:10 pm [...] Signed by: Danitza Sharp MD 03/25/23 Final resultNormalLutheran Hospital Metabolic Pr/rfx MGon 03-25-2023 Albumin [Mass/Vol]3.4 g/dLLow3.5-5.2[facility] HospitalComment on above: Performed By: #### B12FOL #### [facility] [place] [address] Glass Presser: Pete Ward MDAlbumin/Glob Ratio1.0Wdtmnc9.0-2.5[facility] [place] HospitalComment on above:Performed By: #### B12FOL #### [facility] [address] [place] [address] Glass Presser: Tio Kang Phos82 U/VQuhjra27-800Mggjl [place] HospitalComment on above:Performed By: #### B12FOL #### [facility] [address] [place] [address] Glass Presser: Pete Ward MDALT [Catalytic activity/Vol]10 U/LNormal5-41 [facility] HospitalComment on above:Performed By: #### B12FOL #### [facility] [address] [place] [address] Glass Presser: Pete Ward MDAnion gap [Moles/Vol]3 mmol/LLow9-17[facility] HospitalComment on above:Performed By: #### B12FOL #### [facility] [address] [place] [address] Glass Presser: Pete Ward MDAST [Catalytic activity/Vol]23 U/LNormal<40[facility] [place] HospitalComment on above:Performed By: #### B12FOL #### [facility] [address] [place] [address] Glass Presser: Pete Ward MDBilirubin [Mass/Vol]0.4 mg/dLNormal0.3-1.2Mwooster community hospitaly [place] HospitalComment on above:Performed By: #### B12FOL #### [facility] [address] [place] [address] Glass Presser: Pete Ward MDBUN/CRE Lseko22Docm8-76Lhxkn [facility] Comment on above:Performed By: #### B12FOL #### [facility] [address] [place] [address] Glass Presser: Pete Ward MDCalcium [Mass/Vol]10.2 mg/dLNormal8.6-10.4[facility] Medical CenterComment on above:Performed By: #### B12FOL #### [address] [place] [address] Glass Presser: CAILIN Kanghloride [Moles/Vol]102 mmol/WPovynq64-200IkoeiLouis Stokes Cleveland Va Medical CenterComment on above:Performed By: #### B12FOL #### [facility] [employer] [address] [address] [place] [address] Glass Presser: Pete Ward MDCO2 [Moles/Vol]43 mmol/LCritically xqyt76-94 [facility] Medical CenterComment on above:Performed By: #### B12FOL #### [facility] [employer] [address] [address] [place] [address] Glass Presser: CAILIN Kangreatinine [Mass/Vol]0.5 mg/dLLow0.7-1.2MWVUMedicine Harrison Community HospitalComment on above:Performed By: #### B12FOL #### [facility] [address] [place] [address] Glass Presser: Pete Ward MDGFR/1.73 sq M.predicted among non-blacks MDRD (S/P/Bld) [Vol rate/Area]mL/min/{1.73_m2}Normal>60[facility] Medical CenterComment on above:Result Comment: These results are not intended for [...] or following therapy that affects renal tubular secretion.Performed By: #### B12FOL #### [facility] [address] [place] [address] Glass Presser: Pete Ward MDGlucose [Mass/Vol]152 mg/hZQesf05-86YrufaWVUMedicine Harrison Community HospitalComment on above:Performed By: #### B12FOL #### [facility] [address] [place] [address] Glass Presser: Pete Ward MDPotassium [Moles/Vol]3.3 mmol/LLow3.7-5.3[facility] [place] HospitalComment on above:Performed By: #### B12FOL #### [address] [address] Glass Presser: Pete Ward MDProtein [Mass/Vol]6.9 g/dLNormal6.4-8.3[facility] [place] HospitalComment on above:Performed By: #### B12FOL #### [address] [address] Glass Presser: Pete Ward MDSodium [Moles/Vol]148 mmol/KAqhx725-689Slmdy [place] HospitalComment on above:Performed By: #### B12FOL #### [address] [address] Glass Presser: Pete Ward MDUrea nitrogen [Mass/Vol]20 mg/dLNormal8-23[facility] [place] HospitalComment on above:Performed By: #### B12FOL #### [address] [address] Glass Presser: Pete Ward MDMagnesiumon 10-45-4699Hcovmcbgd [Mass/Vol]2.1 mg/dLNormal1.6-2.6[facility] [place] HospitalComment on above:Performed By: #### B12FOL #### [address] [address] Glass Presser: Pete Ward MDArterial Blood Gaseson 40-24-2477Gtdzq Test UNABLE TO COLLECTNormalMercy [place] HospitalComment on above:Performed By: #### HH #### [facility] [address] [place] [address] Glass Presser: Felicitas Messina Temp.UNABLE TO COLLECTNormalMercy [place] HospitalComment on above:Performed By: #### HH #### [facility] [address] [place] [address] Glass Presser: CAILIN Messinaarboxcosta HgbUNABLE TO COLLECTNormal0-5[facility] [place] HospitalComment on above:Performed By: #### HH #### [facility] [address] [place] [address] Glass Presser: Torres Rick MDFIO2UNABLE TO COLLECTNormLutheran Hospital Comment on above:Performed By: #### HH #### [facility] [address] [place] [address] Glass Presser: Torres Rick MDHCO3UNABLE TO FOVPXLVQvridp27-82Iiymr [facility]iffin HospitalComment on above:Performed By: #### HH #### [facility] [address] [place] [address] Glass Presser: ANNA MessinaethemoglobinUNABLE TO COLLECTNormal0.0-1.5MerWood County Hospital HospitalComselect specialty hospital-flint on above:Performed By: #### HH #### [facility] [address] [place] [address] Glass Presser: ANNA MessinaodeUNAMONALISA TO COLLECTNormalLouis Stokes Cleveland [facility] Center Comment on above:Performed By: #### HH #### [facility] [address] [place] [address] Glass Presser: Torres Rick MDNegative Base ExcessUNABLE TO COLLECTNormal0.0-2.0 [facility] HospitalComment on above:Performed By: #### HH #### [facility] [address] [place] [address] Glass Presser: Torres Rick MDNotification TimeUNABLE TO COLLECTNormalMercy [place] HospitalComment on above:Performed By: #### HH #### [facility] [address] [place] [address] Dr[place], [place] 9750883 Glass Presser: Torres Rick MDNotification:UNABLE TO COLLECTNormalMercy [place] HospitalComment on above:Performed By: #### HH #### [facility] [address] [place] [address] Dr[place], [place] 6009683 Glass Presser: Torres Rick MDO2 Device/Flow/%UNABLE TO COLLECTNormalMercy [place] HospitalComment on above:Performed By: #### HH #### [facility] [address] [place] [address] [place] [address] Glass Presser: Torres Rick MDO2 SaturationUNABLE TO RZVJBSKEwavro58-646Xxicb [place] HospitalComment on above:Performed By: #### HH #### [facility] [address] [place] [address] [place] [address] Glass Presser: Torres Rick MDOxyhemoglobinUNABLE TO YLYODXXOybgqu58.0-98.0[facility] [place] HospitalComment on above:Performed By: #### HH #### [facility] [address] [place] [address] [place] [address] Glass Presser: Berta MessinaCO2UNABLE TO DGRTOBAVlvuzb28-50Dkvaz [place] HospitalComment on above:Performed By: #### HH #### [facility] [address] [place] [address] [place] [address] Glass Presser: Berta MessinaCO2 Adj'd for TempUNABLE TO WGBWTVHZyggti19-16 [facility] HospitalComment on above:Performed By: #### HH #### [facility] [address] [place] [address] Dr[place], [place] 0216683 Glass Presser: BERTA MessinaEEP/CPAPUNABLE TO COLLECTNormalMercy [place] HospitalComment on above:Performed By: #### HH #### [facility] [address] [place] [address] [place] [address] Glass Presser: Berta MessinaHUNABLE TO COLLECTNormal7.350-7.450[facility] HospitalComment on above:Performed By: #### HH #### [facility] [address] [place] [address] [place] [address] Glass Presser: Berta Messina Adjst'd for Temp.UNABLE TO COLLECTNormal 7.350-7.450[facility] HospitalComment on above:Performed By: #### HH #### [facility] [address] [place] [address] [place] [address] Glass Presser: Berta MessinaO2UNABLE TO JVBKXUDPvtmom84-92Cdqfq Tiffin HospitalComment on above:Performed By: #### HH #### [facility] [address] [place] [address] [place] [address] Glass Presser: Karen Messina Adjst'd for TempUNABLE TO FDPWXMLDyxejt30-84 [facility] Medical CenterComment on above:Performed By: #### HH #### [facility] [address] [place] [address] [place] [address] Glass Presser: Derek Messinative Base ExcessUNABLE TO COLLECTNormal0.0-2.0 [facility] Medical CenterComment on above:Performed By: #### HH #### [facility] [address] [place] [address] [place] [address] Glass Presser: BERTA MessinaSVUNAMONALISA TO COLLECTNormalLouis Stokes [facility] Center Comment on above:Performed By: #### HH #### [facility] [address] [place] [address] [place] [address] Glass Presser: Dwight Messina. PositionUNABLE TO COLLECTNormalPromedica Toledo Hospital HospitalComment on above:Performed By: #### HH #### [facility] [address] [place] [address] [place], [place] 3238983 Glass Presser: Kash Messina RateUNABLE TO COLLECTNormalMercy [place]stown HospitalComment on above:Performed By: #### HH #### [facility] [address] [place] [address] [place], [place] 8339383 Glass Presser: Velasquez Messina RateUNABLE TO COLLECTNormalMercy [place] HospitalComment on above:Performed By: #### HH #### [facility] [address] [place] [address] Dr[place], [place] 8042883 Glass Presser: Waylon Messina DrawnUNAMONALISA TO COLLECTNormalMercy [place] HospitalComment on above:Performed By: #### HH #### [facility] [address] [place] [address] Dr[place], [place] [id number] Glass Presser: Randall Messina RespiratoryUNABLE TO COLLECTNormalMercy [place] HospitalComment on above:Performed By: #### HH #### [facility] [address] [place] [address] Dr[place], [place] 7664283 Glass Presser: Folr Messina HbUNAMONALISA TO TOGNXOHPosrka59.0-16.0[facility] [place] HospitalComment on above:Performed By: #### HH #### [facility] [address] [place] [address] Dr[place], [place] 2595083 Glass Presser: Flor Messina RateUNAMONALISA TO COLLECTNormalMercy [place] HospitalComment on above:Performed By: #### HH #### [facility] [address] [place] [address] Dr[place], [place] 9498483 Glass Presser: RADHA Messina TO COLLECTNormalMercy [place] Hospital Comment on above:Performed By: #### HH #### [facility] [address] [place] [address] [place] [address] Glass Presser: CAILIN MessinaBCalma [id number], FluorescKeith348 k/uLNormal 138-453[facility] Medical CenterComment on above:Performed By: #### FEBC #### [address] [address] Glass Presser: Pete Ward MD #### CDP #### [address] [place] [id number] Glass Presser: BERTA MessinaLT, Immature Fract.7.9 %Normal1.1-10.3Mer[facility] [place] HospitalComment on above:Performed By: #### FEBC #### [address] [address] Glass Presser: Pete Ward MD #### CDP #### [address] [place] [address] Glass Presser: Torres Rick MDErythrocyte distribution width (RBC) [Ratio]21.3 % High11.8-14.4[facility] Medical CenterComment on above:Performed By: #### FEBC #### [address] [address] Glass Presser: Pete Ward MD #### CDP #### [address] [place] [address] Glass Presser: Torres Rick MDHematocrit (Bld) [Volume fraction]31.4 %Low 40.7-50.3Mer[facility] Day Kimball HospitalComment on above:Performed By: #### FEBC #### [address] [address] Glass Presser: Pete Ward MD #### CDP #### [address] [place], [place] 5334483 Glass Presser: Torres Sturtz, MDHemoglobin (Bld) [Mass/Vol]8.7 g/dLLow13.0-17.0 [facility] Medical CenterComment on above:Performed By: #### FEBC #### [address] [address] Glass Presser: Pete Ward MD #### CDP #### [address] [place], [place] 5785983 Glass Presser: ANNA MessinaCH (RBC) [Entitic mass]22.5 pgLow25.2-33.5[facility] Medical CenterComment on above:Performed By: #### FEBC #### [address] [address] Glass Presser: Pete Ward MD #### CDP #### [address] [place] 6208283 Glass Presser: CORWIN MessinaC (RBC) [Mass/Vol]27.7 g/dLLow28.4-34.8[facility] Medical CenterComment on above:Performed By: #### FEBC #### [address] [address] Glass Presser: Pete Ward MD #### CDP #### [address] [place] 6208283 Glass Presser: SHANTI Messina (RBC) [Entitic vol]81.3 fLLow82.6-102.9[facility] Medical CenterComment on above:Performed By: #### FEBC #### [address] [address] Glass Presser: Pete Ward MD #### CDP #### [address] [place], [place] 0791783 Glass Presser: Torres Rick MDNRBC Automated0.0 per 100 WBCNormal0.0[facility] on above:Performed By: #### FEBC #### [facility] [address] [place] [address] Glass Presser: Pete Ward MD #### CDP #### [address] [place], [place] 2401683 Glass Presser: Apolonia Messinatelet CountSee Reflexed IPF AezryfYenufu137-860 [facility] Medical CenterComment on above:Performed By: #### FEBC #### [address] [place] [address] Glass Presser: Pete Ward MD #### CDP #### [address] [place] [address] Glass Presser: RADHA MessinaBC (Bld) [#/Vol]3.86 10*6/uLLow4.21-5.77[facility] Medical CenterComselect specialty hospital-flint on above:Performed By: #### FEBC #### [address] [address] Glass Presser: Pete Ward MD #### CDP #### [address] [place], [place] 1526283 Glass Presser: Torres Rick MDWBC (Bld) [#/Vol]9.5 10*3/uLNormal3.5-11.3MWVUMedicine Harrison Community HospitalComselect specialty hospital-flint on above:Performed By: #### FEBC #### [address] [place] [address] Glass Presser: Pete Ward MD #### CDP #### [address] [place] [address] Glass Presser: CAILIN Messinaomp Metabolic Pr/rfx MGon 21-90-3803Gslabbb [Mass/Vol]3.3 g/dLLow3.5-5.2Mer[facility] [place] HospitalComment on above:Performed By: #### FEBC #### [address] [address] Glass Presser: Pete Ward MD #### CDP #### [address] [place] [address] Glass Presser: Torres Rick MDAlbumin/Glob Ratio0.9Low1.0-2.5[facility] Medical CenterComment on above:Performed By: #### FEBC #### [address] [address] Glass Presser: Pete Ward MD #### CDP #### [address] [place] [address] Glass Presser: Tio Messina Phos91 U/DHtcvqn13-126XetyyLouis Stokes Cleveland Va Medical CenterComment on above:Performed By: #### FEBC #### [address] [address] Glass Presser: Pete Ward MD #### CDP #### [address] [place] [address] Glass Presser: Torres Rick MDALT [Catalytic activity/Vol]9 U/LNormal5-41[facility] CenterComselect specialty hospital-flint on above:Performed By: #### FEBC #### [address] [address] Glass Presser: Pete Ward MD #### CDP #### [address] [place] [address] Glass Presser: Karan Messina gap [Moles/Vol]11 mmol/LNormal9-17[facility] Medical CenterComselect specialty hospital-flint on above:Performed By: #### FEBC #### [address] [address] Glass Presser: Pete Ward MD #### CDP #### [address] [place], [place] 8031183 Glass Presser: Torres Rick MDAST [Catalytic activity/Vol]18 U/LNormal<40[facility] Medical CenterComment on above:Performed By: #### FEBC #### [address] [address] Glass Presser: Pete Ward MD #### CDP #### [address] [place], [place] 7354083 Glass Presser: Torres Rick MDBilirubin [Mass/Vol]0.4 mg/dLNormal0.3-1.2Mer[facility] HospitalComment on above:Performed By: #### FEBC #### [address] [address] Glass Presser: Pete Ward MD #### CDP #### [address] [place], [place] 5256983 Glass Presser: Torres Rick MDBUN/CRE Eitld74Vbek2-22TuynlLouis Stokes Cleveland Va Medical Center Comment on above:Performed By: #### FEBC #### [address] [address] Glass Presser: Pete Ward MD #### CDP #### [address] [place] [address] Glass Presser: CAILIN Messinaalcium [Mass/Vol]9.7 mg/dLNormal8.6-10.4[facility] Medical CenterComment on above:Performed By: #### FEBC #### [address] [address] Glass Presser: Pete Ward MD #### CDP #### [address] [place], [place] 7543483 Glass Presser: CAILIN Messinahloride [Moles/Vol]94 mmol/OJbm01-975BemonLouis Stokes Cleveland Va Medical CenterComment on above:Performed By: #### FEBC #### [address] [place] [address] Glass Presser: Pete Ward MD #### CDP #### [address] [place] 4286583 Glass Presser: Torres Rick MDCO2 [Moles/Vol]38 mmol/AOujw34-74YfudhLouis Stokes Cleveland Va Medical CenterComment on above:Performed By: #### FEBC #### [address] [address] Glass Presser: Pete Ward MD #### CDP #### [address] [place] 6208283 Glass Presser: CAILIN Messinareatinine [Mass/Vol]0.7 mg/dLNormal0.7-1.2[facility] Kimball HospitalComment on above:Performed By: #### FEBC #### [address] [address] Glass Presser: Pete Ward MD #### CDP #### [address] [place] [address] Glass Presser: Torres Rick MDGFR/1.73 sq M.predicted among non-blacks MDRD (S/P/Bld) [Vol rate/Area]mL/min/{1.73_m2}Normal>60[facility] Medical CenterComment on above:Result Comment: These results are not intended for [...] or following therapy that affects renal tubular secretion.Performed By: #### FEBC #### [address] [address] Glass Presser: Pete Ward MD #### CDP #### [address] [place], [place] 1617483 Glass Presser: Torres Rick MDGlucose [Mass/Vol]120 mg/iYXlur53-77Njxie Tiffin HospitalComment on above:Performed By: #### FEBC #### [address] [address] Glass Presser: Pete Ward MD #### CDP #### [address] [place], [place] 4673283 Glass Presser: BERTA Messinaotassium [Moles/Vol]3.8 mmol/LNormal3.7-5.3[facility] HospitalComment on above:Performed By: #### FEBC #### [address] [address] Glass Presser: Pete Ward MD #### CDP #### [address] [place], [place] 4118983 Glass Presser: BERTA Messinarotein [Mass/Vol]7.1 g/dLNormal6.4-8.3Mwooster community hospitaly [place] HospitalComment on above:Performed By: #### FEBC #### [address] [address] Glass Presser: Pete Ward MD #### CDP #### [address] [place], [place] 0081183 Glass Presser: Torres Rick MDSodium [Moles/Vol]143 mmol/OKxwkpw323-788Uwbld [place] HospitalComment on above:Performed By: #### FEBC #### [address] [address] Glass Presser: Pete Ward MD #### CDP #### [address] [place], [place] 5904883 Glass Presser: Torres Rick MDUrea nitrogen [Mass/Vol]23 mg/dLNormal8-23[facility] CenterComment on above:Performed By: #### FEBC #### [address] [address] Glass Presser: Pete Ward MD #### CDP #### [address] [place] [address] Glass Presser: Torres Rick MDVenous Blood Gaseson 53-64-7658Lcfuy TestPASS NormalLouis Stokes Cleveland Va Medical CenterComment on above:Performed By: #### FEBC #### [address] [address] Glass Presser: Pete Ward MD #### CDP #### [address] [place], [place] 0632283 Glass Presser: Torres Rick MDBody Temp.37.0NormalLouis Stokes Cleveland Va Medical CenterComment on above:Performed By: #### FEBC #### [address] [address] Glass Presser: Pete Ward MD #### CDP #### [address] [place], [place] 6454483 Glass Presser: Torres Rick MDHCO3 (Bld) [Moles/Vol]44.1 mmol/LHigh24.0-30.0 [facility] Medical CenterComment on above:Performed By: #### FEBC #### [address] [address] Glass Presser: Pete Ward MD #### CDP #### [address] [place] [address] Glass Presser: Torres Rick MDO2 Device/Flow/%CannulaNormalLouis Stokes [facility] Center Comment on above:Performed By: #### FEBC #### [address] [address] Glass Presser: Pete Ward MD #### CDP #### [address] [place], [place] 8122183 Glass Presser: Torres Rick MDOxygen saturation in Blood51.1 %Low60.0-85.0[facility] Medical CenterComment on above:Performed By: #### FEBC #### [address] [address] Glass Presser: Pete Ward MD #### CDP #### [address] [place] [address] Glass Presser: Berta MessinaCO268.1 mm HgCritically uylv89-60SnpxqLouis Stokes Cleveland Va Medical CenterComment on above:Performed By: #### FEBC #### [address] [address] Glass Presser: Pete Ward MD #### CDP #### [address] [place], [place] 9073083 Glass Presser: Torres Rick [facility] (Bld)7.429 [pH]High7.32-7.42[facility] Medical CenterComment on above:Performed By: #### FEBC #### [address] [address] Glass Presser: Pete Ward MD #### CDP #### [address] [place], [place] 4932783 Glass Presser: Berta MessinaO227.8 mm HgLow30.0-50.0[facility] [place] [facility] Comment on above:Performed By: #### FEBC #### [facility] [address] [place] [address] Glass Presser: Pete Ward MD #### CDP #### [facility] [address] [place] [address] [place] [address] Glass Presser: Derek Messinative Base Hajfmi63.9 mmol/LHigh0.0-2.0[facility] Medical CenterComment on above:Performed By: #### FEBC #### [facility] [address] [place] [address] Glass Presser: Pete Ward MD #### CDP #### [facility] [address] [place] [address] [place] [address] Glass Presser: Dwight Messina. PositionSEMI-FOWLERSNoGrant HospitalComment on above:Performed By: #### FEBC #### [address] [address] Glass Presser: Pete Ward MD #### CDP #### [address] [place] [address] Glass Presser: DUKE MessinaUC Medical Center Brachial ArteryNoGrant HospitalComment on above:Performed By: #### FEBC #### [facility] [address] [place] [address] Glass Presser: Pete Ward MD #### CDP #### [facility] [address] [place] [address] [place] [address] Glass Presser: Nicholas Messina Blood Gaseson 01-10-3981Flnfx TestPASS [facility] City HospitalComment on above:Performed By: #### ABG #### [facility] [address] [place] [address] [place] [address] Glass Presser: Torres Rick MDHCO3 (Bld) [Moles/Vol]41.4 mmol/UGpuz66-10Tyhvo Tiffin HospitalComment on above:Performed By: #### ABG #### [address] [place] [address] Glass Presser: Torres Rick MDO2 Device/Flow/%CannulaNormalPromedica Toledo Hospital Hospital Comment on above:Performed By: #### ABG #### [address] [place] [address] Glass Presser: Torres Rick MDOxygen (Bld) [Partial pressure]56.8 mm[Hg]Low 80-100[facility] HospitalComment on above:Performed By: #### ABG #### [address] [place], [place] 5127183 Glass Presser: Torres Rick MDOxygen saturation in Blood86.4 %Krx50-60Bqgqr Tiffin HospitalComment on above:Performed By: #### ABG #### [address] [place], [place] 8024283 Glass Presser: Berta MessinaCO278.6 mmHgCritically zbup26-68Fsnfy Tiffin HospitalComment on above:Performed By: #### ABG #### [address] [place], [place] 4518183 Glass Presser: Berta MessinaH (Bld)7.339 [pH]Low7.35-7.45[facility] HospitalComment on above:Performed By: #### ABG #### [address] [place] [address] Glass Presser: BERTA Messinaositive Base Whyhif84.7 mmol/LHigh0.0-2.0[facility] HospitalComment on above:Performed By: #### ABG #### [address] [place] [address] Glass Presser: Dwight Messina. Middlesex County HospitalIFOWLERSLima City HospitalComment on above:Performed By: #### ABG #### [address] [place] [address] Glass Presser: Waylon Messina [facility] Radial ArteryNoKettering Health Dayton HospitalComment on above:Performed By: #### ABG #### [address] [place] [address] Glass Presser: AGATHA Messina with Diffon 41-66-8704Qed. Basophil0.12 k/uL Normal0.00-0.20[facility] HospitalComment on above:Performed By: #### FEBC #### [address] [address] Glass Presser: Pete Ward MD #### CDP #### [address] [place] [address] Glass Presser: MDAbs. MayuriImm.Granulocyte0.00 k/uLNormal0.00-0.30[facility] Medical CenterComment on above:Performed By: #### FEBC #### [address] [address] Glass Presser: Pete Ward MD #### CDP #### [address] [place] [address] Glass Presser: Grady Messina.Neutrophil (Seg)9.77 k/uLHigh1.50-8.10[facility] Medical CenterComment on above:Performed By: #### FEBC #### [address] [address] Glass Presser: Pete Ward MD #### CDP #### [address] [place] [address] Glass Presser: Torres Rick MDBasophils/100 WBC (Bld)1 %Normal0-2MercConnecticut Valley HospitalComment on above:Performed By: #### FEBC #### [address] [address] Glass Presser: Pete Ward MD #### CDP #### [address] [place] [address] Glass Presser: Torres Rick MDEosinophils (Bld) [#/Vol]0.12 10*3/uLNormal 0.00-0.44St. [facility] Hospitalcy Day Kimball HospitalComment on above:Performed By: #### FEBC #### [address] [address] Glass Presser: Pete Ward MD #### CDP #### [address] [place] [address] Glass Presser: Torres Rick MDEosinophils/100 WBC (Bld)1 %Normal1-4[facility] Medical CenterComselect specialty hospital-flint on above:Performed By: #### FEBC #### [address] [address] Glass Presser: Pete Ward MD #### CDP #### [address] [place] [address] Glass Presser: Torres Rick MDImmature granulocytes/100 WBC (Bld)0 %Cliyfn5ZeghfLouis Stokes Cleveland Va Medical CenterComselect specialty hospital-flint on above:Performed By: #### FEBC #### [address] [address] Glass Presser: Pete Ward MD #### CDP #### [address] [place], [place] 1955083 Glass Presser: Torres Rick MDLymphocytes (Bld) [#/Vol]0.85 10*3/uLLow1.10-3.70 [facility] CenterComment on above:Performed By: #### FEBC #### [address] [address] Glass Presser: Pete Ward MD #### CDP #### [address] [place], [place] 5726183 Glass Presser: Torres Rick MDLymphocytes/100 WBC (Bld)7 %Tme70-08DlrvuLouis Stokes Cleveland Va Medical CenterComment on above:Performed By: #### FEBC #### [address] [address] Glass Presser: Pete Ward MD #### CDP #### [address] [place] 6208283 Glass Presser: ANNA Messinaonocytes (Bld) [#/Vol]1.34 10*3/uLHigh0.10-1.20 [facility] Medical CenterComment on above:Performed By: #### FEBC #### [address] [address] Glass Presser: Pete Ward MD #### CDP #### [address] [place], [place] 4315083 Glass Presser: ANNA Messinaonocytes/100 WBC (Bld)11 %Normal3-12[facility] Medical CenterComment on above:Performed By: #### FEBC #### [address] [address] Glass Presser: Pete Ward MD #### CDP #### [address] [place], [place] 6365783 Glass Presser: ANNA Messinaorphology Luis (Bld) [Interp]HYPOCHROMIANormal [facility] Medical CenterComment on above:Result Comment: PRESENT ANISOCYTOSIS PRESENTPerformed By: #### FEBC #### [address] [place] [address] Glass Presser: Pete Ward MD #### CDP #### [address] [place], [place] 7718283 Glass Presser: Torres Rick MDNeutrophil (Seg)80 %Ydvp72-36NmpeiLouis Stokes Cleveland Va Medical Center Comment on above:Performed By: #### FEBC #### [address] [address] Glass Presser: Pete Ward MD #### CDP #### [address] [place] 6208283 Glass Presser: Torres Rick MDErythrocyte distribution width (RBC) [Ratio]20.6 % High11.8-14.4[facility] Medical CenterComment on above:Performed By: #### FEBC #### [address] [address] Glass Presser: Pete Ward MD #### CDP #### [address] [place] 6208283 Glass Presser: Torres Rick MDHematocrit (Bld) [Volume fraction]30.2 %Low 40.7-50.3Mwooster community hospitaly Day Kimball HospitalComment on above:Performed By: #### FEBC #### [address] [address] Glass Presser: Pete Ward MD #### CDP #### [address] [place] 6208283 Glass Presser: Torres Rick MDHemoglobin (Bld) [Mass/Vol]8.6 g/dLLow13.0-17.0 [facility] East Campusment on above:Performed By: #### FEBC #### [address] [place] [address] Glass Presser: Pete Ward MD #### CDP #### [address] [place] [address] Glass Presser: ANNA MessinaCH (RBC) [Entitic mass]22.9 pgLow25.2-33.5[facility] Medical CenterComment on above:Performed By: #### FEBC #### [address] [address] Glass Presser: Pete Ward MD #### CDP #### [address] [place], [place] 2774883 Glass Presser: CORWIN MessinaC (RBC) [Mass/Vol]28.5 g/iQUmluih59.4-34.8[facility] Campusment on above:Performed By: #### FEBC #### [address] [address] Glass Presser: Pete Ward MD #### CDP #### [address] [place], [place] 6720383 Glass Presser: ANNA MessinaCV (RBC) [Entitic vol]80.3 fLLow82.6-102.9[facility] Medical CenterComment on above:Performed By: #### FEBC #### [address] [address] Glass Presser: Pete Ward MD #### CDP #### [address] [place], [place] 0169283 Glass Presser: Torres Rick MDNRBC Automated0.0 per 100 WBCNormal0.0[facility] Medical CenterComment on above:Performed By: #### FEBC #### [address] [address] [place] [address] Glass Presser: Pete Ward MD #### CDP #### [address] [place], [place] 3247683 Glass Presser: Lisette Messina mean volume (Bld) [Entitic vol]11.0 fL Normal8.1-13.5[facility] Medical CenterComment on above:Performed By: #### FEBC #### [address] [place] [address] Glass Presser: Pete Ward MD #### CDP #### [address] [place], [place] 2726583 Glass Presser: Lanie Messinalets (Bld) [#/Vol]332 10*3/lXVgamry644-017 [facility] CenterComment on above:Performed By: #### FEBC #### [address] [place] [address] Glass Presser: Pete Ward MD #### CDP #### [address] [place], [place] 3631883 Glass Presser: RADHA MessinaBC (Bld) [#/Vol]3.76 10*6/uLLow4.21-5.77[facility] Medical CenterComment on above:Performed By: #### FEBC #### [address] [place] [address] Glass Presser: Pete Ward MD #### CDP #### [address] [place], [place] 2102983 Glass Presser: Torres Rick MDWBC (Bld) [#/Vol]12.2 10*3/uLHigh3.5-11.3MWVUMedicine Harrison Community HospitalComment on above:Performed By: #### FEBC #### [address] [address] Glass Presser: Pete Ward MD #### CDP #### [address] [place] [address] Glass Presser: CAILIN Messinaomp Metabolic Pr/rfx MGon 40-24-2988Jaztc gap [Moles/Vol]9 mmol/LNormal9-17[facility] CenterComment on above:Performed By: #### FEBC #### [address] [address] Glass Presser: Pete Ward MD #### CDP #### [address] [place] [address] Glass Presser: Torres Rick MDCO2 [Moles/Vol]40 mmol/IAhrb52-82FkanjLouis Stokes Cleveland Va Medical CenterComment on above:Performed By: #### FEBC #### [address] [address] Glass Presser: Pete Ward MD #### CDP #### [address] [place] [address] Glass Presser: Torres Rick MDAlbumin [Mass/Vol]3.2 g/dLLow3.5-5.2MercConnecticut Valley HospitalComment on above:Performed By: #### FEBC #### [address] [address] Glass Presser: Pete Ward MD #### CDP #### [address] [place] [address] Glass Presser: Torres Rick MDAlbumin/Glob Ratio0.8Low1.0-2.5[facility] CenterComment on above:Performed By: #### FEBC #### [address] [address] Glass Presser: Pete Ward MD #### CDP #### [address] [place] [address] Glass Presser: Tio Messina Egam376 U/LEljwfx99-112PcpbeLouis Stokes Cleveland Va Medical CenterComment on above:Performed By: #### FEBC #### [address] [address] Glass Presser: Pete Ward MD #### CDP #### [address] [place] [address] Glass Presser: Torres Rick MDALT [Catalytic activity/Vol]9 U/LNormal5-41Louis [facility] Va Medical CenterComment on above:Performed By: #### FEBC #### [address] [address] Glass Presser: Pete Ward MD #### CDP #### [address] [place] [address] Glass Presser: Torres Rick MDAST [Catalytic activity/Vol]24 U/LNormal<40Louis [facility] Medical CenterComment on above:Performed By: #### FEBC #### [address] [address] Glass Presser: Pete Ward MD #### CDP #### [address] [place] [address] Glass Presser: Torres Rick MDBilirubin [Mass/Vol]0.6 mg/dLNormal0.3-1.2Mer[facility] Day Kimball HospitalComment on above:Performed By: #### FEBC #### [address] [address] Glass Presser: Pete Ward MD #### CDP #### [address] [place] [address] Glass Presser: Torres Rick MDBUN/CRE Uuawf12Mehy6-08EyhuzLouis Stokes Cleveland Va Medical Center Comment on above:Performed By: #### FEBC #### [facility] [address] [place] [address] Glass Presser: Pete Ward MD #### CDP #### [address] [place] 2319183 Glass Presser: CAILIN Messinaalcium [Mass/Vol]9.8 mg/dLNormal8.6-10.4Louis [facility] Cleveland Va Medical CenterComment on above:Performed By: #### FEBC #### [address] [address] Glass Presser: Pete Ward MD #### CDP #### [address] [place] [address] ( Glass Presser: CAILIN Messinahloride [Moles/Vol]91 mmol/SUcs77-815SwqaeLouis Stokes Cleveland Va Medical CenterComment on above:Performed By: #### FEBC #### [address] [address] Glass Presser: Pete Ward MD #### CDP #### [address] [place] [address] Glass Presser: CAILIN Messinareatinine [Mass/Vol]0.7 mg/dLNormal0.7-1.2MercRegional Medical Center HospitalComment on above:Performed By: #### FEBC #### [address] [address] Glass Presser: Pete Ward MD #### CDP #### [address] [place] [address] Glass Presser: Torres Rick MDGFR/1.73 sq M.predicted among non-blacks MDRD (S/P/Bld) [Vol rate/Area]mL/min/{1.73_m2}Normal>60MerMilford HospitalComment on above:Result Comment: These results are not intended for [...] or following therapy that affects renal tubular secretion.Performed By: #### FEBC #### [address] [address] Glass Presser: Pete Ward MD #### CDP #### [address] [place] [address] Glass Presser: Torres Rick MDGlucose [Mass/Vol]77 mg/hKRkxsvm80-38Hjrob Day Kimball HospitalComment on above:Performed By: #### FEBC #### [address] [address] Glass Presser: Pete Ward MD #### CDP #### [address] [place] [address] Glass Presser: Torres Rick MDPotassium [Moles/Vol]3.6 mmol/LLow3.7-5.3Mwooster community hospitaly Day Kimball HospitalComment on above:Performed By: #### FEBC #### [address] [address] Glass Presser: Pete Ward MD #### CDP #### [address] [place] [address] Glass Presser: Torres Rick MDProtein [Mass/Vol]7.1 g/dLNormal6.4-8.3Mer[facility] Kimball HospitalComment on above:Performed By: #### FEBC #### [address] [address] Glass Presser: Pete Ward MD #### CDP #### [address] [place], [place] 7118783 Glass Presser: DUKE Messinaodium [Moles/Vol]140 mmol/CEaxzcu283-935MpyqhLouis Stokes Cleveland Va Medical CenterComment on above:Performed By: #### FEBC #### [address] [address] Glass Presser: Pete Ward MD #### CDP #### [address] [place] 6208283 Glass Presser: Torres Rick MDUrea nitrogen [Mass/Vol]18 mg/dLNormal8-23Louis [facility] Medical CenterComment on above:Performed By: #### FEBC #### [address] [address] Glass Presser: Pete Ward MD #### CDP #### [address] [place] [facility]83 Glass Presser: Torres Rick MDHgb/Hcton 34-68-3245Tjichhhxbh (Bld) [Volume fraction]30.3 %Low40.7-50.3[facility] [place] HospitalComment on above:Performed By: #### FEBC #### [address] [address] Glass Presser: Pete Ward MD #### CDP #### [address] [place] 6208283 Glass Presser: Torres Rick MDHemoglobin (Bld) [Mass/Vol]8.7 g/dLLow13.0-17.0 [facility] HospitalComment on above:Performed By: #### FEBC #### [address] [address] Glass Presser: Pete Ward MD #### CDP #### [address] [place] [address] Glass Presser: Yasmany Messina Binding Cap.on 03-23-2023% Fe Saturation7 % Oxe61-15Keybs [place] HospitalComment on above:Performed By: #### FEBC #### [address] [address] Glass Presser: Pete Ward MD #### CDP #### [address] [place], [place] 8207883 Glass Presser: Torres Rick MDIron [Mass/Vol]25 ug/kOOor27-624RxvdkLouis Stokes Cleveland Va Medical CenterComment on above:Performed By: #### FEBC #### [address] [address] Glass Presser: Pete Ward MD #### CDP #### [address] [place], [place] 0552083 Glass Presser: Torres Rick MDTotal Fe Binding Iaq195 ug/xOGushag901-890JipviLouis Stokes Cleveland Va Medical CenterComment on above:Performed By: #### FEBC #### [address] [address] Glass Presser: Pete Ward MD #### CDP #### [address] [place], [place] 1605383 Glass Presser: Torres Rick MDUnbound Fe Bind Piq216 ug/wRVfximn835-788SehakLouis Stokes Cleveland Va Medical CenterComment on above:Performed By: #### FEBC #### [address] [address] Glass Presser: Pete Ward MD #### CDP #### [address] [place], [place] 6854183 Glass Presser: Nicholas Messina Blood Gaseson 36-31-1802Sscgf TestPASS NormalLouis Stokes Cleveland Va Medical CenterComment on above:Performed By: #### HH #### [facility] [address] [place], [place] 6943483 Glass Presser: Felicitas Messina Temp.37.0NormalPromedica Toledo Hospital HospitalComment on above:Performed By: #### HH #### [facility] [address] [place], [place] 2742383 Glass Presser: Torres Rick MDCYIEX198QmyurbMmewtLutheran HospitalComment on above: Performed By: #### HH #### [facility] [address] [place], [place] 9208183 Glass Presser: Torres Rick MDHCO3 (Bld) [Moles/Vol]43.1 mmol/XPvzj44-81EznrsLouis Stokes Cleveland Va Medical CenterComment on above:Performed By: #### HH #### [facility] [address] [place] [address] Dr. [place], [place] 8171583 Glass Presser: JANN Messina Device/Flow/%BIPAPNormLutheran Hospital Comment on above:Performed By: #### HH #### [facility] [address] [place], [place] 3286183 Glass Presser: Torres Rick MDOxygen (Bld) [Partial pressure]60.9 mm[Hg]Low 80.0-100.0Louis [facility] Medical CenterComment on above:Performed By: #### HH #### [facility] [address] [place] [address] Glass Presser: Torres Rick MDOxygen saturation in Blood89.9 %Rks21-68QkndwLouis Stokes Cleveland Va Medical CenterComment on above:Performed By: #### HH #### [facility] [address] [place] [address] Glass Presser: Berta MessinaCO274.0 mmHgCritically fuau45-33AiatmLouis Stokes Cleveland Va Medical CenterComment on above:Performed By: #### HH #### [facility] [address] [place] [address] Glass Presser: Berta Messina (Bld)7.383 [pH]Normal7.35-7.45[facility] HospitalComment on above:Performed By: #### HH #### [facility] [address] [place] [address] Glass Presser: Derek Messinative Base Rbiilo71.1 mmol/LHigh0.0-2.0[facility] HospitalComment on above:Performed By: #### HH #### [facility] [address] [place] [address] Glass Presser: Dwight Messina. PositionSEMI-FOWLERSLima City HospitalComment on above:Performed By: #### HH #### [facility] [address] [place], [place] 3740583 Glass Presser: RADHA Messinaespiratory rate44 /minLima City Hospital Comment on above:Performed By: #### HH #### [facility] [address] [place] [address] Glass Presser: DUKE MessinaMedStar Washington Hospital Center Brachial ArteryNoGrant HospitalComment on above:Performed By: #### HH #### [facility] [address] [place] [address] Glass Presser: AGATHA Messina with Diffon 18-58-7612Jup. Basophil0.09 k/uL Normal0.0-0.2MercRegional Medical Center HospitalComment on above:Performed By: #### HILARY #### [facility] [address] [place] [address] Glass Presser: Pete Ward MD #### CDP #### [address] [place] [address]208283 Glass Presser: Grady Messina.Imm.Granulocyte0.00 k/uLNormal0.00-0.30Louis [facility] Medical CenterComment on above:Performed By: #### FEBC #### [address] [address] Glass Presser: Pete Ward MD #### CDP #### [address] [place] [address] Glass Presser: Grady Messina.Neutrophil (Seg)7.35 k/uLNormal1.50-8.10[facility] HospitalComment on above:Performed By: #### FEBC #### [address] [address] Glass Presser: Pete Ward MD #### CDP #### [address] [place] [address] Glass Presser: Torres Rick MDBasophils/100 WBC (Bld)1 %Normal0-2[facility] Kimball HospitalComment on above:Performed By: #### FEBC #### [place] [address] Glass Presser: Pete Ward MD #### CDP #### [address] [place] 6208283 Glass Presser: Torres Rick MDEosinophils (Bld) [#/Vol]0.09 10*3/uLNormal 0.00-0.44Louis [facility] Cleveland [facility] Medical CenterComment on above:Performed By: #### FEBC #### [address] [address] Glass Presser: Pete Ward MD #### CDP #### [address] [place], [place] 2105783 Glass Presser: Torres Rick MDEosinophils/100 WBC (Bld)1 %Normal1-4[facility] Medical CenterComment on above:Performed By: #### FEBC #### [address] [address] Glass Presser: Pete Ward MD #### CDP #### [address] [place], [place] 6579683 Glass Presser: Torres Rick MDImmature granulocytes/100 WBC (Bld)0 %Pnzudh9PwiqjLouis Stokes Cleveland Va Medical CenterComment on above:Performed By: #### FEBC #### [address] [address] Glass Presser: Pete Ward MD #### CDP #### [address] [place] [address] Glass Presser: Torres Rick MDLymphocytes (Bld) [#/Vol]0.84 10*3/uLLow1.10-3.70 [facility] Medical CenterComment on above:Performed By: #### FEBC #### [address] [address] Glass Presser: Pete Ward MD #### CDP #### [address] [place] [address] Glass Presser: Torres Rick MDLymphocytes/100 WBC (Bld)9 %Vxs87-43RojcwLouis Stokes Cleveland Va Medical CenterComselect specialty hospital-flint on above:Performed By: #### FEBC #### [address] [address] Glass Presser: Pete Ward MD #### CDP #### [address] [place] [address] Glass Presser: ANNA Messinaonocytes (Bld) [#/Vol]0.93 10*3/uLNormal0.10-1.20 [facility] Medical CenterComment on above:Performed By: #### FEBC #### [address] [address] Glass Presser: Pete Ward MD #### CDP #### [address] [place] [address] Glass Presser: ANNA Messinaonocytes/100 WBC (Bld)10 %Normal3-12Louis [facility] Medical CenterComment on above:Performed By: #### FEBC #### [address] [address] Glass Presser: Pete Ward MD #### CDP #### [address] [place] [address] Glass Presser: ANNA Messinaorphology Luis (Bld) [Interp]HYPOCHROMIANormal [facility] Medical CenterComment on above:Result Comment: PRESENT Large platelets noted Platelet clumps present, count appears adequate.Performed By: #### FEBC #### [address] [address] Glass Presser: Pete Ward MD #### CDP #### [address] [place] [address] Glass Presser: Torres Rick MDNeutrophil (Seg)79 %Tlfj75-35QwhmqLouis Stokes Cleveland Va Medical Center Comment on above:Performed By: #### FEBC #### [address] [address] Glass Presser: Pete Ward MD #### CDP #### [address] [place] [address] Glass Presser: Torres Rick MDErythrocyte distribution width (RBC) [Ratio]19.6 % High11.8-14.4Louis [facility] Medical CenterComment on above:Performed By: #### FEBC #### [address] [address] Glass Presser: Pete Ward MD #### CDP #### [address] [place], [place] 2353883 Glass Presser: Torres Rick MDHematocrit (Bld) [Volume fraction]28.8 %Low 40.7-50.3[facility] Kimball HospitalComment on above:Performed By: #### FEBC #### [address] [address] Glass Presser: Pete Ward MD #### CDP #### [address] [place] 6208283 Glass Presser: Torres Rick MDHemoglobin (Bld) [Mass/Vol]8.2 g/dLLow13.0-17.0 [facility] Medical CenterComment on above:Performed By: #### FEBC #### [address] [address] Glass Presser: Pete Ward MD #### CDP #### [address] [place] 6208283 Glass Presser: ANNA MessinaCH (RBC) [Entitic mass]22.9 pgLow25.2-33.5Louis [facility] Medical CenterComment on above:Performed By: #### FEBC #### [address] [address] Glass Presser: Pete Ward MD #### CDP #### [address] [place], [place] 3802783 Glass Presser: Torres Sturtz, MDMCHC (RBC) [Mass/Vol]28.5 g/nQIpokof51.4-34.8Louis [facility] Medical CenterComment on above:Performed By: #### FEBC #### [address] [address] Glass Presser: Pete Ward MD #### CDP #### [address] [place] 6208283 Glass Presser: ANNA MessinaCV (RBC) [Entitic vol]80.4 fLLow82.6-102.9Louis [facility] Medical CenterComment on above:Performed By: #### FEBC #### [address] [address] Glass Presser: Pete Ward MD #### CDP #### [address] [place] [address] Glass Presser: Torres Rick MDNRBC Automated0.0 per 100 WBCNormal0.0Louis [facility] Medical CenterComment on above:Performed By: #### FEBC #### [address] [address] Glass Presser: Pete Ward MD #### CDP #### [address] [place] 6208283 Glass Presser: Lisette Messina mean volume (Bld) [Entitic vol]12.3 fL Normal8.1-13.5Louis [facility] Medical CenterComment on above:Performed By: #### FEBC #### [address] [address] Glass Presser: Pete Ward MD #### CDP #### [address] [place] 6208283 Glass Presser: Afia Messina (Bld) [#/Vol]307 10*3/eGAsygkp344-155 [facility] HospitalComment on above:Performed By: #### FEBC #### [place] [address] [place] [address] Glass Presser: Pete Ward MD #### CDP #### [address] [place], [place] 1513783 Glass Presser: RADHA MessinaBC (Bld) [#/Vol]3.58 10*6/uLLow4.21-5.77[facility] HospitalComment on above:Performed By: #### FEBC #### [address] [address] Glass Presser: Pete Ward MD #### CDP #### [address] [place] 6208283 Glass Presser: Torres Rick MDWBC (Bld) [#/Vol]9.3 10*3/uLNormal3.5-11.3MKindred Healthcare HospitalComment on above:Performed By: #### FEBC #### [address] [address] Glass Presser: Pete Ward MD #### CDP #### [address] [place], [place] 2773283 Glass Presser: Torres Rick MDHgb/Hcton 18-30-0338Lxlfgwnlch (Bld) [Volume fraction]30.1 %Low40.7-50.3Mwooster community hospitaly [place] HospitalComment on above:Performed By: #### FEBC #### [address] [address] Glass Presser: Pete Ward MD #### CDP #### [address] [place], [place] 0952483 Glass Presser: Torres Rick MDHemoglobin (Bld) [Mass/Vol]8.7 g/dLLow13.0-17.0 [facility] HospitalComment on above:Performed By: #### FEBC #### [address] [id number] Glass Presser: Pete Ward MD #### CDP #### [address] [place] [address] Glass Presser: Torres Rick MDHematocrit (Bld) [Volume fraction]31.1 %Low 40.7-50.3[facility] [place] HospitalComment on above:Performed By: #### FEBC #### [address] 6489508 Glass Presser: Pete Ward MD #### CDP #### [address] [place] [address]283 Glass Presser: Torres Rick MDHemoglobin (Bld) [Mass/Vol]9.0 g/dLLow13.0-17.0 [facility] HospitalComment on above:Performed By: #### FEBC #### [address] 8[address]408 Glass Presser: Pete Ward MD #### CDP #### [address] [place] [address] Glass Presser: Torres Rick MDHematocrit (Bld) [Volume fraction]26.5 %Low 40.7-50.3[facility] [place] HospitalComment on above:Performed By: #### B12FOL #### [address] [address] Glass Presser: Pete Ward MDHemoglobin (Bld) [Mass/Vol]7.6 g/dLLow13.0-17.0 [facility] HospitalComment on above:Performed By: #### B12FOL #### [address] [place] [address] Glass Presser: Nicholas Kang Blood Gaseson 64-37-2585Fiafb TestPASS NormalPromedica Toledo Hospital HospitalComment on above:Performed By: #### ABG #### [facility] [address] [place], [place] 5931283 Glass Presser: Felicitas Messina Temp.37.0NormalPromedica Toledo Hospital HospitalComment on above:Performed By: #### ABG #### [facility] [address] [place], [place] 4533883 Glass Presser: Torres Rick MDLEFXS074NerikcVvmrs Tiffin HospitalComment on above: Performed By: #### ABG #### [facility] [address] [place], [place] 4253783 Glass Presser: Torres Rick MDHCO3 (Bld) [Moles/Vol]42.8 mmol/RYpnn53-21IsaluLouis Stokes Cleveland Va Medical CenterComment on above:Performed By: #### ABG #### [address] [place], [place] 3005483 Glass Presser: Torres Rick MDO2 Device/Flow/%BIPAPNoKettering Health Dayton Hospital Comment on above:Performed By: #### ABG #### [facility] [address] [place] [address] Dr. [place], [place] 1351083 Glass Presser: Torres Rick MDOxygen (Bld) [Partial pressure]48.9 mm[Hg]Low 80.0-100.0[facility] Medical CenterComment on above:Performed By: #### ABG #### [facility] [address] [place] [address] Dr[place], [place] 3788283 Glass Presser: Torres Rick MDOxygen saturation in Blood82.2 %Hod56-55SqqiwLouis Stokes Cleveland Va Medical CenterComment on above:Performed By: #### ABG #### [facility] [address] [place] [address] Dr. [place], [place] 8616283 Glass Presser: Berta MessinaCO273.2 mmHgCritically rvrh50-88CtortLouis Stokes Cleveland Va Medical CenterComment on above:Performed By: #### ABG #### [facility] [address] [place], [place] 1816683 Glass Presser: Berta Messina (Bld)7.385 [pH]Normal7.35-7.45[facility] HospitalComment on above:Performed By: #### ABG #### [facility] [address] [place] [address] Dr[place], [place] 0172683 Glass Presser: Derek Messinative Base Gfvrqz11.9 mmol/LHigh0.0-2.0[facility] Medical CenterComment on above:Performed By: #### ABG #### [facility] [address] [place] [address] Dr. [place], [place] 4102783 Glass Presser: MDPt. Mayuri PositionSEMI-FOWLERSLima City HospitalComment on above:Performed By: #### ABG #### [facility] [address] [place] [address] Dr[place], [place] 7907183 Glass Presser: RADHA Messinaespiratory rate41 /minNoGrant Hospital Comment on above:Performed By: #### ABG #### [facility] [address] [place] [address] [place] [address] Glass Presser: Waylon Messina [facility] Specialty HospitalMari Radial ArteryNoGrant HospitalComment on above:Performed By: #### ABG #### [facility] [address] [place] [address] Dr. [place], [place] 7991583 Glass Presser: Jordana Messina TestPASSNoGrant HospitalComment on above:Performed By: #### HH #### [facility] [address] [place] [address] Dr. [place], [place] 2302083 Glass Presser: Torres Rick MDHCO3 (Bld) [Moles/Vol]39.4 mmol/WDsaa72-54KbwvjLouis Stokes Cleveland Va Medical CenterComment on above:Performed By: #### HH #### [address] [place], [place] 9143783 Glass Presser: Torres Rick MDO2 Device/Flow/%CannulaNormalLouis Stokes Cleveland Va Medical Center Comment on above:Result Comment: 5LPerformed By: #### HH #### [address] [place], [place] 8209083 Glass Presser: Torres Rick MDOxygen (Bld) [Partial pressure]104.0 mm[Hg]High 80-100[facility] HospitalComment on above:Performed By: #### HH #### [address] [place], [place] 5051183 Glass Presser: Torres Rick MDOxygen saturation in Blood96.6 %Jhodjt03-66RzkckLouis Stokes Cleveland Va Medical CenterComment on above:Performed By: #### HH #### [address] [place] [address] Glass Presser: Berta MessinaCO290.2 mmHgCritically jqul60-92IskxrLouis Stokes Cleveland Va Medical CenterComment on above:Performed By: #### HH #### [address] [place] [address] Glass Presser: Berta MessinaH (Bld)7.258 [pH]Low7.35-7.45[facility] HospitalComment on above:Performed By: #### HH #### [address] [place], [place] 9124183 Glass Presser: BERTA Messinaositive Base Excess8.3 mmol/LHigh0.0-2.0[facility] HospitalComment on above:Performed By: #### HH #### [facility] [address] [place], [place] 7914083 Glass Presser: Waylon Messina Radial ArteryNormalLouis Stokes Cleveland Va Medical CenterComment on above:Performed By: #### HH #### [facility] [address] [place] [address] Dr. [place], [place] 9732283 Glass Presser: Torres Rick MDB1Christiana/Folate Panelon 76-21-7831Jajnb Acid>20.0Normal >4.8MerMilford HospitalComment on above:Performed By: #### B12FOL #### [facility] [address] [place] [address] Glass Presser: CAILIN Kangobalamin (Vitamin B12) [Mass/Vol]826 pg/mL Nmbbie546-1922KzuxpLouis Stokes Cleveland Va Medical CenterComment on above:Performed By: #### B12FOL #### [place] [address] [place] [address] Glass Presser: Jay Kang Metabolic Profon 71-89-0321Ddcjt gap [Moles/Vol]1 mmol/LLow9-17[facility] Medical CenterComment on above:Performed By: #### HH #### [facility] [address] [place] [address] [place] [address] Glass Presser: Torres Rick MDBUEpifanio/CRE Buwwb93Cbkv8-59AbkusLouis Stokes Cleveland Va Medical Center Comment on above:Performed By: #### HH #### [facility] [address] [place] [address] [place] [address] Glass Presser: CAILIN Messinaalcium [Mass/Vol]9.2 mg/dLNormal8.6-10.4MerMilford HospitalComment on above:Performed By: #### HH #### [facility] [address] [place] [address] Dr[place], [place] 6689783 Glass Presser: CAILIN Messinahloride [Moles/Vol]96 mmol/YIyg12-302SxofmLouis Stokes Cleveland Va Medical CenterComment on above:Performed By: #### HH #### [address] [place] [address] Glass Presser: Torres Rick MDCO2 [Moles/Vol]42 mmol/LCritically zwpe03-66NzalsLouis Stokes Cleveland Va Medical CenterComment on above:Performed By: #### HH #### [address] [place] [address] Glass Presser: CAILIN Messinareatinine [Mass/Vol]0.5 mg/dLLow0.7-1.2MWVUMedicine Harrison Community HospitalComment on above:Performed By: #### HH #### [address] [place] [address] Glass Presser: Torres Rick MDGFR/1.73 sq M.predicted among non-blacks MDRD (S/P/Bld) [Vol rate/Area]mL/min/{1.73_m2}Normal>60[facility] Medical CenterComment on above:Result Comment: These results are not intended for [...] or following therapy that affects renal tubular secretion.Performed By: #### HH #### [address] [place] [address] Glass Presser: Torres Rick MDGlucose [Mass/Vol]102 mg/sKIrlj35-88SxoejWVUMedicine Harrison Community HospitalComment on above:Performed By: #### HH #### [address] [place] [address] Glass Presser: Torres Rick MDPotassium [Moles/Vol]4.6 mmol/LNormal3.7-5.3[facility] HospitalComment on above:Performed By: #### HH #### [address] [place], [place] [address] Glass Presser: DUKE Messinaodium [Moles/Vol]139 mmol/YSitsef989-497Nbwso Tiffin HospitalComment on above:Performed By: #### HH #### [address] [place], [place] [address] Glass Presser: Torres Rick MDUrea nitrogen [Mass/Vol]11 mg/dLNormal8-23Mer[facility] HospitalComment on above:Performed By: #### HH #### [address] [place] [id number] Glass Presser: CAILIN Messina with Diffon 75-81-7091Vdg. Basophil<0.03Normal 0.00-0.20[facility]Wood [facility] HospitalComment on above:Performed By: #### HH #### [address] [place], [place] [address] Glass Presser: Grady Messina.Imm.Granulocyte0.03 k/uLNormal0.00-0.30[facility] HospitalComment on above:Performed By: #### HH #### [address] [place] [address] Glass Presser: Grady Messina.Neutrophil (Seg)6.89 k/uLNormal1.50-8.10[facility] HospitalComment on above:Performed By: #### HH #### [address] [place] [id number] Glass Presser: Torres Rick MDBasophils/100 WBC (Bld)0 %Normal0-2[facility] HospitalComment on above:Performed By: #### HH #### [address] [place] [address] Glass Presser: Torres Rick MDEosinophils (Bld) [#/Vol]0.12 10*3/uLNormal 0.00-0.44[facility] HospitalComment on above:Performed By: #### HH #### [address] [place] [address] Glass Presser: Torres Rick MDEosinophils/100 WBC (Bld)1 %Normal1-4[facility] HospitalComment on above:Performed By: #### HH #### [address] [place] [address] Glass Presser: Torres Rick MDErythrocyte distribution width (RBC) [Ratio]19.8 % High11.8-14.4[facility] HospitalComment on above:Performed By: #### HH #### [address] [place] [address] Glass Presser: Torres Rick MDHematocrit (Bld) [Volume fraction]19.5 %Critically low40.7-50.3[facility] HospitalComment on above:Performed By: #### HH #### [address] [place] [address] Glass Presser: Torres Rick MDHemoglobin (Bld) [Mass/Vol]5.0 g/dLCritically low 13.0-17.0[facility] HospitalComment on above:Performed By: #### HH #### [address] [place] [id number] Glass Presser: Torres Rick MDImmature granulocytes/100 WBC (Bld)0 %Qvhner7Eeuxd Tiffin HospitalComment on above:Performed By: #### HH #### [address] [place] [id number] Glass Presser: Torres Sturtz, MDLymphocytes (Bld) [#/Vol]1.01 10*3/uLLow1.10-3.70 [facility] CenterComment on above:Performed By: #### HH #### [address] [place] [address] Glass Presser: Rebecca Messinamphocytes/100 WBC (Bld)11 %Aqc95-18Uhyiw Tiffin HospitalComment on above:Performed By: #### HH #### [address] [place] [address] Glass Presser: ANNA MessinaCH (RBC) [Entitic mass]20.7 pgLow25.2-33.5[facility] HospitalComment on above:Performed By: #### HH #### [address] [place] [address] Glass Presser: CORWIN MessinaC (RBC) [Mass/Vol]25.6 g/dLLow28.4-34.8[facility] HospitalComment on above:Performed By: #### HH #### [address] [place] [address] Glass Presser: ANNA MessinaCV (RBC) [Entitic vol]80.9 fLLow82.6-102.9[facility] CenterComment on above:Performed By: #### HH #### [address] [place] [address] Glass Presser: ANAN Messinaonocytes (Bld) [#/Vol]0.88 10*3/uLNormal0.10-1.20 [facility] CenterComment on above:Performed By: #### HH #### [address] [place], [place] [address]683 Glass Presser: ANNA Messinaonocytes/100 WBC (Bld)10 %Normal3-12[facility] CenterComment on above:Performed By: #### HH #### [facility] [address] [place] [address] [place] [address] Glass Presser: You Messina (Seg)77 %Xggd05-05OqqyaLouis Stokes [facility] Center Comment on above:Performed By: #### HH #### [address] [place], [facility]83 Glass Presser: AMARI Messina Automated0.0 per 100 WBCNormal0.0[facility] HospitalComment on above:Performed By: #### HH #### [address] [place], [place] 198[address]83 Glass Presser: Lisette Messina mean volume (Bld) [Entitic vol]11.6 fL Normal8.1-13.5[facility] CenterComment on above:Performed By: #### HH #### [address] [place], [place] 5903583 Glass Presser: Afia Messina (Bld) [#/Vol]235 10*3/rBMiwpfz617-222 [facility] HospitalComment on above:Performed By: #### HH #### [address] [place], [facility]83 Glass Presser: WILBER Messina (Bld) [#/Vol]2.41 10*6/uLLow4.21-5.77[facility] HospitalComment on above:Performed By: #### HH #### [address] [place], [place] 09[address]83 Glass Presser: KYLIE Messina (Bld) [#/Vol]9.0 10*3/uLNormal3.5-11.3MKindred Healthcare HospitalComment on above:Performed By: #### HH #### [address] [place], [place] [address] Glass Presser: MDAbs. Mayuri Basophil0.00 k/uLNormal0.0-0.2[facility] HospitalComment on above:Performed By: #### HH #### [address] [place] [address] Glass Presser: MDAbs. MayuriImm.Granulocyte0.00 k/uLNormal0.00-0.30[facility] HospitalComment on above:Performed By: #### HH #### [address] [place] [address] Glass Presser: Grady Messina.Neutrophil (Seg)7.77 k/uLNormal1.50-8.10[facility] HospitalComment on above:Performed By: #### HH #### [address] [place] [address] Glass Presser: Torres Rick MDBasophils/100 WBC (Bld)0 %Normal0-2Mwooster community hospitaly [place] HospitalComment on above:Performed By: #### HH #### [address] [place], [place] [address] Glass Presser: Torres Rick MDEosinophils (Bld) [#/Vol]0.10 10*3/uLNormal 0.00-0.44[facility] HospitalComment on above:Performed By: #### HH #### [address] [place], [place] [address] Glass Presser: AUDRA Messinaosinophils/100 WBC (Bld)1 %Normal1-4[facility] HospitalComment on above:Performed By: #### HH #### [address] [place] [id number] Glass Presser: Darya Messina granulocytes/100 WBC (Bld)0 %Kykmhr8YfudeLouis Stokes Cleveland Va Medical CenterComment on above:Performed By: #### HH #### [address] [place] [address] Glass Presser: Torres Rick MDLymphocytes (Bld) [#/Vol]0.58 10*3/uLLow1.10-3.70 [facility] CenterComment on above:Performed By: #### HH #### [address] [place] [address] Glass Presser: Rebecca Messinamphocytes/100 WBC (Bld)6 %Kwi52-53GeejnLouis Stokes Cleveland Va Medical CenterComment on above:Performed By: #### HH #### [address] [place], [place] 8[address]83 Glass Presser: ANNA Messinaonocytes (Bld) [#/Vol]1.15 10*3/uLNormal0.10-1.20 [facility] CenterComment on above:Performed By: #### HH #### [address] [place] [address] Glass Presser: ANNA Messinaonocytes/100 WBC (Bld)12 %Normal3-12[facility] CenterComment on above:Performed By: #### HH #### [address] [place] [address] Glass Presser: ANNA Messinaorphology Luis (Bld) [Interp]Platelet scan shows Normal PlateletsNormalLouis Stokes Cleveland Va Medical CenterComment on above:Result Comment: ANISOCYTOSIS PRESENTPerformed By: #### HH #### [address] [place], [place] 137[address]83 Glass Presser: Torres Rick MDNeutrophil (Seg)81 %Qbjx95-13TgwnzLouis Stokes Cleveland Va Medical Center Comment on above:Performed By: #### HH #### [address] [place], [place] [address]83 Glass Presser: Torres Rick MDErythrocyte distribution width (RBC) [Ratio]20.7 % High11.8-14.4[facility] HospitalComment on above:Performed By: #### HH #### [address] [place], [facility]83 Glass Presser: Torres Rick MDHematocrit (Bld) [Volume fraction]19.0 %Critically low40.7-50.3[facility] HospitalComment on above:Performed By: #### HH #### [address] [place], [place] [address] Glass Presser: Torres Rick MDHemoglobin (Bld) [Mass/Vol]4.5 g/dLCritically low 13.0-17.0[facility] HospitalComment on above:Performed By: #### HH #### [address] [place], [place] 0232683 Glass Presser: ANNA MessinaCH (RBC) [Entitic mass]19.0 pgLow25.2-33.5[facility] HospitalComment on above:Performed By: #### HH #### [address] [place], [facility]83 Glass Presser: ANNA MessinaCHC (RBC) [Mass/Vol]23.7 g/dLLow28.4-34.8[facility] HospitalComment on above:Performed By: #### HH #### [address] [place] [address] Glass Presser: ANNA MessinaCV (RBC) [Entitic vol]80.2 fLLow82.6-102.9[facility] HospitalComment on above:Performed By: #### HH #### [address] [place], [facility]83 Glass Presser: AMARI Messina Automated0.0 per 100 WBCNormal0.0[facility] CenterComment on above:Performed By: #### HH #### [address] [place], [facility]83 Glass Presser: Lisette Messina mean volume (Bld) [Entitic vol]11.1 fL Normal8.1-13.5[facility] Medical CenterComment on above:Performed By: #### HH #### [address] [place], [place] [address] Glass Presser: Afia Messina (Bld) [#/Vol]244 10*3/yIVczpnw369-100 [facility] CenterComment on above:Performed By: #### HH #### [address] [place], [place] [address] Glass Presser: WILBER Messina (Bld) [#/Vol]2.37 10*6/uLLow4.21-5.77[facility] CenterComment on above:Performed By: #### HH #### [address] [place], [place] [address] Glass Presser: KYLIE Messina (Bld) [#/Vol]9.6 10*3/uLNormal3.5-11.3MWVUMedicine Harrison Community HospitalComment on above:Performed By: #### HH #### [address] [place], [facility]83 Glass Presser: Torres Rick MDCT HEAD WO CONTRASTon [id number] HEAD WO CONTRASTEXAMINATION: CT OF THE HEAD WITHOUT CONTRAST 03/21/2023 [...] Signed by: Soraya Ward MD 03/21/23 Final resultNormalLouis Stokes Cleveland Va Medical CenterFerritinon 09-64-1974Uskdfmnw [Mass/Vol] 11 ng/fBXvz19-285DtjtlLouis Stokes Cleveland Va Medical CenterComment on above:Performed By: #### HH #### [address] [place] [address] Glass Presser: Torres Rick MDHgb/Hcton 90-91-3900Vdxdlpkisq (Bld) [Volume fraction]25.6 %Low40.7-50.3[facility] HospitalComment on above:Performed By: #### HH #### [address] [place] [address] Glass Presser: Torres Rick MDHemoglobin (Bld) [Mass/Vol]7.3 g/dLLow13.0-17.0 [facility] CenterComment on above:Performed By: #### HH #### [address] [place] [address] Glass Presser: Torres Rick MDHematocrit (Bld) [Volume fraction]25.4 %Low 40.7-50.3[facility] HospitalComment on above:Performed By: #### HH #### [address] [place], [place] [address] Glass Presser: Torres Rick MDHemoglobin (Bld) [Mass/Vol]7.0 g/dLLow13.0-17.0 [facility] HospitalComment on above:Performed By: #### HH #### [address] [place], [place] 08[address] Glass Presser: Torres Rick MDHematocrit (Bld) [Volume fraction]24.2 %Low 40.7-50.3[facility] HospitalComment on above:Performed By: #### FEBC #### [address] [id number] Glass Presser: Pete Ward MD #### CDP #### [address] [place], [place] 280[address] Glass Presser: Torres Rick MDHemoglobin (Bld) [Mass/Vol]6.7 g/dLCritically low 13.0-17.0[facility] HospitalComment on above:Performed By: #### FEBC #### [address] [address] Glass Presser: Pete Ward MD #### CDP #### [address] [place], [place] [address] Glass Presser: Torres Rick MDLactic Acidon 53-47-1795Uqlcmyu [Moles/Vol]0.8 mmol/LNormal0.5-2.2[facility] HospitalComment on above:Performed By: #### HH #### [address] [place] [address] Glass Presser: Vicente Messina 30-22-3430OEQ Coag (PPP) [Relative time]1.3 {INR}NormalLouis Stokes Cleveland Va Medical CenterComment on above:Result Comment: Therapeutic Range: Moderate Anticoagulant Intensity: INR = 2.0-3.0 High Anticoagulant Intensity: INR = 2.5-3.5Performed By: #### PT #### [address] [place], [place] 44[address] Glass Presser: DWIGHT Messina Coag (PPP) [Time]16.0 sHigh11.9-14.8[facility] Medical CenterComment on above:Performed By: #### PT #### [address] [place], [place] 26[address] Glass Presser: Rosenda Messina 38-22-4344Evtbttfh, High Sens29 ng/L High0-22[facility] Medical CenterComment on above:Result Comment: High Sensitivity Troponin values cannot be compared with other Troponin methodologies.Performed By: #### FEBC #### [address] [address] Glass Presser: Pete Ward MD #### CDP #### [address] [place], [place] 1856[address] Glass Presser: Penelope Messina, High Sens30 ng/LHigh0-22[facility] on above:Result Comment: High Sensitivity Troponin values cannot be compared with other Troponin methodologies.Performed By: #### FEBC #### [address] [address] Glass Presser: Pete Ward MD #### CDP #### [address] [place], [place] [address] Glass Presser: Torres Rick MDType + Screenon 45-00-2422Drlf + ScreenSample Expiration 03/24/2023,2359 Arm Band Number [id number] ABO/Rh(D) A POSITIVE Antibody Screen NEGATIVE Unit Number [id number] Blood Component Type Leukocyte Reduced Red Cell Unit Division 00 Status of Unit TRANSFUSED Transfusion Status OK TO TRANSFUSE Crossmatch Result COMPATIBLE Unit Number [id number] Blood Component Type Leukocyte Reduced Red Cell Unit Division 00 Status of Unit TRANSFUSED Transfusion Status OK TO TRANSFUSE Crossmatch Result COMPATIBLE Unit Number [id number] Blood Component Type Leukocyte Reduced Red Cell Unit Division 00 Status of Unit TRANSFUSED Transfusion Status OK TO TRANSFUSE Crossmatch Result COMPATIBLENormalLouis Stokes Cleveland Va Medical CenterComment on above: Performed By: #### FEBC #### [address] [address] Glass Presser: Pete Ward MD #### CDP #### [address] [place], [place] 7804383 Glass Presser: Torres Rick MDUrinalysis w/ Microon 83-09-4911LnhiqaskJLQGX AbnormalNONEMeYale New Haven Children's HospitalComment on above:Performed By: #### FEBC #### [address] [address] Glass Presser: Pete Ward MD #### CDP #### [address] [place], [place] [address] Glass Presser: Torres Rick MDBilirubin, SemiQt,UrNegativeNormalNEGLouis Stokes Cleveland Va Medical CenterComment on above:Performed By: #### FEBC #### [address] [address] Glass Presser: Pete Ward MD #### CDP #### [address] [place], [place] [address]83 Glass Presser: Torres Rick MDBlood, Urine1+AbnormalNEGLouis Stokes Cleveland [facility] Medical Center Comment on above:Performed By: #### FEBC #### [address] [address] Glass Presser: Pete Ward MD #### CDP #### [address] [place] [address] Glass Presser: CAILIN Messinalarity (ClearNoalCLEARLouis Stokes Cleveland Va Medical Center Comment on above:Performed By: #### FEBC #### [address] [address] Glass Presser: Pete Ward MD #### CDP #### [address] [place], [place] 155[address] Glass Presser: CAILIN Messinaolor (YellowNoalYKettering Health [facility]amisburg Comment on above:Performed By: #### FEBC #### [address] [address] Glass Presser: Pete Ward MD #### CDP #### [address] [place], [place] 824[address]83 Glass Presser: Torres Rick MDEpithelial cells LM Ql (Urine sed)0 TO 0Pauaiq2-6 [facility] Medical CenterComment on above:Performed By: #### FEBC #### [address] [address] Glass Presser: Pete Ward MD #### CDP #### [address] [place], [place] 32[address] Glass Presser: Torres Rick MDGlucose Ql (U)NegativeNormalNEGLouis Stokes Cleveland Va Medical CenterComment on above:Performed By: #### FEBC #### [address] [address] Glass Presser: Pete Ward MD #### CDP #### [address] [place], [place] [address]83 Glass Presser: Torres Rick MDKetones Ql (U)NegativeNormalNEGLouis Stokes Cleveland Va Medical CenterComment on above:Performed By: #### FEBC #### [address] [address] Glass Presser: Pete Ward MD #### CDP #### [address] [place] [address] Glass Presser: Torres Rick MDLeukocyte esterase Test strip Ql (U)SMALLAbnormal NEGPromedica Toledo Hospital HospitalComment on above:Performed By: #### FEBC #### [address] [address] Glass Presser: Pete Ward MD #### CDP #### [address] [place] [address] Glass Presser: Torres Rick MDNitrite,UrNegativeNormalNEGLouis Stokes [facility] Center Comment on above:Performed By: #### FEBC #### [address] [address] Glass Presser: Pete Ward MD #### CDP #### [address] [place], [place] 7[address]2483 Glass Presser: Torres Rick [facility],Ur6.2Mpllpn3.0-9.0[facility] Medical CenterComment on above:Performed By: #### FEBC #### [address] [address] Glass Presser: Pete Ward MD #### CDP #### [address] [place], [place] 4476783 Glass Presser: BERTA Messinarotein Ql (U)NegativeNormalNEGPromedica Toledo Hospital HospitalComment on above:Performed By: #### FEBC #### [address] [address] Glass Presser: Pete Ward MD #### CDP #### [facility] [address] [place] [address] [place] [address] Glass Presser: DUKE Messinapec. [place],Ur1.359Nckyxm9.010-1.020[facility] Medical CenterComment on above:Performed By: #### FEBC #### [address] [address] Glass Presser: Pete Ward MD #### CDP #### [facility] [address] [place] [address] [place] [address] Glass Presser: Torres Rick MDUrine RBC's2 TO 1Ofkzkr0-0CfeqkWVUMedicine Harrison Community Hospital Comment on above:Performed By: #### FEBC #### [address] [address] Glass Presser: Pete Ward MD #### CDP #### [address] [place] [address] Glass Presser: Torres Rick MDUrine WBC's0 TO 3Unsuld3-7AzrbsLouis Stokes Cleveland [facility] Medical Center Comment on above:Performed By: #### FEBC #### [address] [address] Glass Presser: Pete Ward MD #### CDP #### [address] [place] [address] Glass Presser: Torres Rick MDUrobilinogen,UrNormalNormal0.0-1.0[facility] Medical CenterComment on above:Performed By: #### FEBC #### [address] [address] Glass Presser: Pete Ward MD #### CDP #### [address] [place] [address] Glass Presser: SIERRA MessinaR CHEST (2 VW)on 36-77-6447ZL CHEST (2 VW) EXAMINATION: TWO XRAY VIEWS OF THE CHEST 03/21/2023 12:28 am COMPARISON: Portable chest x-ray on 02/08/2016. HISTORY: ORDERING SYSTEM PROVIDED HISTORY: shortness of breath TECHNOLOGIST PROVIDED HISTORY: shortness of breath FINDINGS: Cardiac size appears to be mildly larger, currently top normal. There is wcni-gw-onxbnnzb pulmonary vascular congestion/cephalization since. Evidence of mild interstitial pulmonary edema [...] Signed by: Pito Merino MD 03/21/23 Final resultNormalLouis Stokes Cleveland Va Medical CenterXR ELBOW RIGHT (2 VIEWS)on 36-59-0998CV ELBOW RIGHT (2 VIEWS)EXAMINATION: TWO XRAY VIEWS OF THE RIGHT ELBOW [...] Signed by: Torres Scruggs MD 03/21/23 Final resultNormalProMedica Defiance Regional Hospital AUTO DIFFon 34-93-6592XHLS #0.1 103/ulNormal0.0-0.1The [facility] HospitalComment on above:Performed By: #### CBC #### [facility] [address] [place] [address] [address] Ishmael GeorgeBasophils/100 WBC (Bld)0.7 %Normal0.2-2.0[facility] Comment on above:Performed By: #### CBC #### [facility] [address] [place] [address] [address] Ishmael Hidalgo #0.1 103/ulNormal0.0-0.7The [facility] HospitalComment on above: Performed By: #### CBC #### [facility] [address] [place] [address] [address] Ishmael Penalozaosinophils/100 WBC (Bld)1.0 %Normal0.9-7.0[facility] Comment on above:Performed By: #### CBC #### [facility] [address] [place] [address] Dr. Ishmael Penalozarythrocyte distribution width (RBC) [Ratio]18.0 %Critically high 11.0-15.0The [facility] HospitalComment on above:Performed By: #### CBC #### [facility] [address] [place] [address] Dr. Ishmael GeorgeHematocrit (Bld) [Volume fraction]44.6 %Clhwkb52.0-54.0The [facility] HospitalComment on above:Performed By: #### CBC #### [facility] [address] [place] [address] Dr. Ishmael GeorgeHemoglobin (Bld) [Mass/Vol]13.0 g/dLCritically low14.0-18.0The [facility] HospitalComment on above:Performed By: #### CBC #### [facility] [address] [place] [address] Dr. Ishmael Herbert #0.03 10e3/ulNormal0.00-0.03The [facility] HospitalComment on above:Performed By: #### CBC #### [facility] [address] [place] [address] Dr. Ishmael Herbert %0.3 %Normal0.0-0.5The [facility] HospitalComment on above: Performed By: #### CBC #### [facility] [address] [place] [address] Dr. Ishmael Williamson #1.0 103/ulCritically low1.2-3.8[facility] Comment on above:Performed By: #### CBC #### [facility] [address] [place] [address] [address] Ishmael rBiggsmphocytes/100 WBC (Bld)9.2 %Critically low20.5-60.0The [facility] HospitalComment on above:Performed By: #### CBC #### [facility] [address] [place] [address] [address] Ishamel Wick DIFF REQNONormalThe [facility] HospitalComment on above: Performed By: #### CBC #### [facility] [address] [place] [address] [address] Ishmael Ochoa (RBC) [Entitic mass]25.8 pgCritically low25.9-34.0The [facility] HospitalComment on above:Performed By: #### CBC #### [facility] [address] [place] [address] Dr. Ishmael Ochoa (RBC) [Mass/Vol]29.1 g/dLCritically low29.9-35.2The [facility] HospitalComment on above:Performed By: #### CBC #### [facility] [address] [place] [address] Dr. Ishmael OchoaV (RBC) [Entitic vol]88.7 pQClrexe17.0-94.0The [facility] HospitalComment on above:Performed By: #### CBC #### [facility] [address] [place] [address] Dr. Ishmael Joy #0.8 103/ulNormal0.3-0.8The [facility] HospitalComment on above:Performed By: #### CBC #### [facility] [address] [place] [address] Dr. Ishmael Ratliffocytes/100 WBC (Bld)7.7 %Normal1.7-12.0[facility] Comment on above:Performed By: #### CBC #### [facility] [address] [place] [address] Dr. Ishmael Landry #8.7 103/ulCritically high1.4-6.5[facility] Comment on above:Performed By: #### CBC #### [facility] [address] [place] [address] [address] Ishmael Masseyutrophils/100 WBC (Bld)81.1 %Critically high43.0-75.0The [facility] HospitalComment on above:Performed By: #### CBC #### [facility] [address] [address] [address] Ishmael GeorgePlatelet mean volume (Bld) [Entitic vol]12.2 fLNormal9.5-13.5The [facility] HospitalComment on above:Performed By: #### CBC #### [facility] [address] [place] [address] Dr. Ishmael GeorgePLT274 103/pwNckmcc898-748Kiq [facility] HospitalComment on above: Performed By: #### CBC #### [facility] [address] [place] [address] Dr. Ishmael GeorgeRBC5.03 106/ulNormal4.70-6.10The [facility] HospitalComment on above:Performed By: #### CBC #### [facility] [address] [place] [address] Dr. Ishmael GeorgeWBC10.8 103/ulNormal4.0-11.0The [facility] HospitalComment on above:Performed By: #### CBC #### [facility] [address] [place] [address] Dr. Ishmael GeorgeCT HEAD WO CONon 43-31-1651MM HEAD WO CONINDICATION: 70 years old; Male. Dizziness. Fall today. Closed head trauma. Nausea. TECHNIQUE: CT Head (ax/cor/sag reformats). Ionizing radiation dose reduced via iterative reconstruction/FBP blend and body size kV/mA adjustment. Comparison: None FINDINGS: POSTOPERATIVE CHANGES: None. BRAIN PARENCHYMA: No hemorrhage, mass or acute infarct. Subtle patchy foci of low-density are seen in the subcortical white matter consistent with small vessel ischemic change. VENTRICLES/EXTRA-AXIAL SPACES: No hydrocephalus. SINUSES/MASTOIDS: No paranasal sinus [...] Electronically authenticated by: KYLE MAX Date: 2021-04-29 04:19[facility]ullPROF 14(COMP METB)on 95-13-9664Qjwdmqq [Mass/Vol]3.3 g/dL Critically low3.5-5.0The [facility] HospitalComment on above:Performed By: #### CMP #### [facility] [address] [place] [address] Dr. Ishmael GeorgeAlbumin/Globulin [Mass ratio]0.7 {ratio}NormalThe [facility] HospitalComment on above:Performed By: #### CMP #### [facility] [address] [place] [address] Dr. Ishmael RoseP [Catalytic activity/Vol]120 U/MTsevlk91-751Yoy [facility] HospitalComment on above:Performed By: #### CMP #### [facility] [address] [address] [address] Ishmael Crews [Catalytic activity/Vol]24 U/XRkylgt40-19Cbf [facility] HospitalComment on above:Performed By: #### CMP #### [facility] [address] [address] [address] Ishmael Wang gap [Moles/Vol]4.9 mmol/LNormalThe [facility] HospitalComment on above:Performed By: #### CMP #### [facility] [address] [address] [address] Ishmael GeorgeAST [Catalytic activity/Vol]21 U/JNrzbln04-35Zjg [facility] HospitalComment on above:Performed By: #### CMP #### [facility] [address] [place] [address] Dr. Ishmael GeorgeBilirubin [Mass/Vol]0.4 mg/dLNormal0.2-1.3The [facility] Comment on above:Performed By: #### CMP #### [facility] [address] [address] [address] Ishmael GeorgeCalcium [Mass/Vol]10.0 mg/dLNormal8.4-10.2[facility] Comment on above:Performed By: #### CMP #### [facility] [address] [address] [address] Ishmael GeorgeChloride [Moles/Vol]93 mmol/LCritically vjo10-846Vln [facility] HospitalComment on above:Performed By: #### CMP #### [facility] [address] [place] [address] Dr. Ishmael GeorgeCO2 [Moles/Vol]39.8 mmol/LCritically high22.0-30.0The [facility] HospitalComment on above:Performed By: #### CMP #### [facility] [address] [place] [address] Dr. Ishmael GeorgeCreatinine [Mass/Vol]0.82 mg/dLNormal0.66-1.25The [facility] HospitalComment on above:Performed By: #### CMP #### [facility] [address] [place] [address] Dr. Ishmael PenalozaGFR-AF TANZANIAN>60Normal>=60The [facility] HospitalComment on above:Performed By: #### CMP #### [facility] [address] [place] [address] Dr. Ishmael PenalozaGFR-NON AF TANZANIAN>60Normal>=60The [facility] HospitalComment on above:Performed By: #### CMP #### [facility] [address] [place] [address] Dr. Ishmael GeorgeGlobulin (S) [Mass/Vol]4.9 g/dLNormalThe [facility] HospitalComment on above:Performed By: #### CMP #### [facility] [address] [place] [address] Dr. Ishmael GeorgeGlucose [Mass/Vol]122 mg/dLCritically ypwi28-442Bqm [facility] HospitalComment on above:Performed By: #### CMP #### [facility] [address] [place] [address] Dr. Ishmael GeorgePotassium [Moles/Vol]4.7 mmol/LNormal3.4-5.0The [facility] Comment on above:Performed By: #### CMP #### [facility] [address] [address] [address] Ishmael GeorgeProtein [Mass/Vol]8.2 g/dLNormal6.1-8.2The [facility] Comment on above:Performed By: #### CMP #### [facility] [address] [address] [address] Ishmael GeorgeSodium [Moles/Vol]133 mmol/LCritically vmi177-684Hlh [facility] HospitalComment on above:Performed By: #### CMP #### [facility] [address] [place] [address] Dr. Ishmael GeorgeUrea nitrogen [Mass/Vol]12.0 mg/dLNormal9.0-20.0The [facility] HospitalComment on above:Performed By: #### CMP #### [facility] [address] [address] [address] Ishmael Boone nitrogen/Creatinine [Mass ratio]14.6 mg/mgNormalThe [facility] HospitalComment on above:Performed By: #### CMP #### [facility] [address] [place] [address] Dr. Ishmael GeorgeProvider Letteron 77-94-6134Ytlvrhbg Letter January 13, 2020 DAMI ALCALA [facility] [address] [place] [address] DAMI ALCALA 1950 Dear Dami Alcala, This letter is to inform you that you have missed at least two appointments in our office within a twelve-month period which you did not cancel. According to our records those missed appointments were on: 12/18/2019 and 01/13/2020. We make every effort to accommodate patients as quickly as possible. If we know you are not able tomake an appointment, we can schedule another patient who needs to see one of our providers. As our previous letter stated, there is a $30.00 charge for a second missed *no show* appointment. This is in accordance with our office policy. If you are unable to keep future appointments, please let us know 24 hours in advance. Sincerely, [facility] [address] [place] [place] [address] [facility], [facility]PITALNoMagruder HospitalCoding Summary.on 16-60-0214Mgaino Summary.CODING DATE: 07/15/2019 FINAL [facility] D[facility] STATUS: Home (Routine DC) PAYOR: Medicare APC DESCRIPTION 5341 Abdominal/Peritoneal/Biliary and Related Procedures ADMIT DX: REASON FOR [...] PROC APC STAT DESCRIPTION DOCTOR NAME DATE 01387 5341 J1 Repair initial inguinal Kyle ESPINAL MD 07/12/2019 hernia, age 5 years or older; reducible LT Left side (used to identify procedures performed on the left side of the body) 59739 Transversus abdominis Miles Damon JR, DO 07/12/2019 plane (TAP) block (abdominal plane block, rectus sheath block) unilateral; by injection(s) (includes imaging guidance, when performed) XP Separate practitioner, a service that is distinct because it was performed by a different practitioner 33638 Anesthesia for hernia Miles Damon JR, DO 07/12/2019 repairs in lower abdomen; not otherwise specified NOTE: The code number assigned matches the documented diagnosis and / or procedure in the patient's chart. However, the narrative phrase printed from the coding software may appear abbreviated, or result in slightly different terminology. Revised Coded By: Ghazal Dixon Revised Date Saved: 07/15/2019 02:55 pmNormalSelect Medical [facility] Rehabilitation HospitalMain OR Intraoperative Recordon 03-04-2597Okhv OR Intraoperative RecordIntraOp Document Type FT Summary Primary Physician: Kyle ESPINAL MD Finalized Date/Time: 07/15/19 13:48:25 Pt. Name: DAMI ALCALA/Sex: 1950 Male Med Rec #: [id number] Physician: TEDDY SILVA, Kyle Zavaleta Financial #: [id number] Pt. Type: A Room/Bed: [place] [address] Admit/Disch: 07/12/19 05:53:09 - 07/12/19 14:25:00 Institution: Case Times FT Entry 1 Patient Times In Room 07/12/19 07:43:00 Out Room 07/12/19 09:16:00 Procedure Times Start 07/12/19 08:13:00 Stop 07/12/19 09:12:00 Anesthesia Times Start 07/12/19 07:43:00 Stop 07/12/19 09:16:00 Block Timeout w07/12/19 08:00:00 Anesthesia Last Modified By: Josselyn Giron RN 07/12/19 09:16:11 General Comments: 0802 TAP BLOCK PERFORMED IN OR SUITE BY DR DAMON WITH JONY MA ASSISTING. JONY BRENNER 07/15/2019Chart opened to review and send charges Cherelle Ng CST Case Attendance FT Entry 1 Entry 2 Entry 3 Case Attendee Nelson MEDLEY DO, Miles ESPINAL MD, Kyle Reich RN, CNORPeyton Role Performed Anesthesiologist of Surgeon - Primary COURT BAILIFF OR SHERIFF Record Time In 07/12/19 07:43:00 07/12/19 07:43:00 [...] Thomason RN Role Performed Scrub - Primary Operations Vocational Instructor - Primary Time In 07/12/19 07:43:00 07/12/19 [...] Out Miles Damon JR, DO, NILL MD, Michael R, Stocker RN, Peyton HAQ McClain QUICK SKETCH ARTIST, Bree Dailey RN, Kimberly Y Time Out Complete 07/12/19 [...] and tissue Entry 1 Skin Integrity Intact, [place], Warm, and Skin Abnormality No Dry Outcomes [...] Head Large Press Points Checked Yes By Miles Damon JR, DO, Stocker RN, Peyton HAQ Barbee RN, Kimberly Y [...] RN, Kimberly Y Barbee RN, Kimberly Y 02/07/20 07:35:24 07/12/19 07:35:24 07/12/19 07:35:24 Entry 4 [...] due to electrical sources, and evaluates for signsand symptoms of electrical injury Entry 1 ESU [...] 09:00:00 07/12/19 09:04:00 By Nita COTO, Josselyn Mcdaniel RN, Barbee RN, Kimberly Y, A, Rachana BORGES, SADAOR, Nita COTO, Josselyn Moya CST, Josselyn [...] Items DRESSING GAUZE 4 X 4 2'S [3033][F] Site and Details ABDOMEN - SKIN AFFIX, [...] safely administered during the perioperative period For Lawrence-Ra please see scanned medication reconcilliation form for medications used at the field during the procedure. Implant Log FT Pre-Care Text: Records devices implanted during the operative or invasive procedure Entry 1 Procedure INGUINAL HERNIA REPAIR Implant/Explant Implant ADULT(Left) Implant Identification FT Description MESH PLUG PROLOOP Lot Number [id number] PREFORMED XLARGE [23990][F] Mortgage Banker FT-ATRIUM Catalog ?# [id number] [F] Size X-LARGE Expiration Date 09/21/23 Unique Device [id number] Human Readable {01}[id number] Identifier (LAVELL) Barcode Machine Readable [id number] Barcode Usage Data FT Implant Site Other [...] BLANKET MISTRAL AIR Quantity 1 Aid TORSO [[id number]][F] Fluid/Wilson Unit Mistral warming system Setting HIGH/43C Body Site Upper anterior torso Last Modified By: Josselyn Giron RN 07/12/19 08:18:01 Case Comments Finalized By: Jillian Ng CST Document Signatures Signed By: Josselyn Giron RN 07/12/19 09:19 Josselyn Giron RN 07/12/19 10:24 Jillian Ng CST 07/15/19 13:48NormPremier Health Upper Valley Medical CenterHistory and Physicalon 46-05-1143Npdqtxf and PhysicalPatient: DAMI ALCALA Age: 69 years Sex: Male : 1950 Associated Diagnoses: None Author: Kyle ESPINAL MD Subjective no changes to H & PNSt. Mary's Medical CenterComment on above:Result Comment: Electronically Signed By: Kyle ESPINAL MD\.br\Date and Time Signed: 07/12/19 07:32 ESTInpatient Patient Summaryon 51-47-5235Yqjjnvjkf Patient Summary [id number] [facility] Clinical Discharge Instructions PERSON INFORMATION Name: DAMI ALCALA PHYSICIANS Admitting Physician: Kyle ESPINAL MD Attending Physician: Kyle ESPINAL MD PCP: POLINA QUEZADA MD Discharge Diagnosis: Direct left inguinal hernia Comment: PATIENT EDUCATION INFORMATION Instructions: Post Op Patient Instructions - FT (Custom) Medication Leaflets: Follow up: With: Address: When: Kyle ESPINAL [address] [place] [address] [facility] () Within 7 to 10 days Comments: in the [place] office. MEDICATION LIST New Medications [id number], [address] [place], [place] [address], [phone] acetaminophen-hydrocodone ([place] 325 mg-5 mg oral tablet) 1 Tablets By Mouth every 4 hours as needed for pain. Refills: 0. Medications to Continue with No Changes Other Medications albuterol (albuterol 0.083% Inh [place] 3 mL) 0.083% - 3mL dosing units Inhalation every 4 hours as needed., COPD aspirin (aspirin 81 mg oral tablet) 1 Tablets By Mouth every day. fluticasone/umeclidinium/vilanterol (Trelegy Ellipta inhalation powder) 1 Puffs Inhalation [...] Portable 02 for physician visits, oxygen conservation. Comment:[facility]Main OR PACU I Recordon 23-00-9408Ovoq OR PACU I RecordPACU Phase I Document Type FT Summary Primary Physician: Kyle ESPINAL MD Finalized Date/Time: 07/12/19 09:57:37 Pt. Name: FREDRICKDAMI./Sex: 1950 Male Med Rec #: [id number] Physician: Kyle ESPINAL MD Financial #: [id number] Pt. Type: A Room/Bed: [facility]/ Admit/Disch: 07/12/19 05:53:09 - Institution: Case Times [...] individualized perioperative plan of care The patient's rightto privacy is maintained The patient's value system, [...] with or improved from baseline levels established preoperativelyThe patient's cardiovascular status is consistent with or improved from baseline levels established preoperatively The patient's cardiovascular status is consistent with or improved from baseline levels established preoperatively The patient demonstrates and/or reports adequate pain control throughout the perioperative period The patient received appropriate medication(s), safely administered during the perioperativeperiod Acuity Level PACU I FT Entry 1 Start Time 07/12/19 09:17:00 Stop Time 07/12/19 09:47:00 Acuity Level Acuity Level I Last Modified By: Keara Lund RN 07/12/19 09:57:36 Finalized By: Keara Lund RN Document Signatures Signed By: Keara Lund RN 07/12/19 09:57NoMagruder HospitalMain OR Preoperative Recordon 01-10-4307Tmfe OR Preoperative RecordPreOp Document Type FT Summary Primary Physician: Kyle ESPINAL MD Finalized Date/Time: 07/12/19 08:03:21 Pt. Name: DAMI ALCALA Cherelle Bowman./Sex: 1950 Male Med Rec #: [id number] Physician: Kyle ESPINAL MD Financial #: [id number] Pt. Type: A Room/Bed: [facility] Admit/Disch: 07/12/19 05:53:09 - Institution: Case Times [...] Signatures Signed By: Josselyn Giron RN 07/12/19 08:03[facility] HospitalOperative Reporton 95-92-1462Flyxgyxnn ReportDate of Surgery: 07/12/2019 SURGEON: Kyle Espinal M.D. [...] structures were mobilized and retracted with a [place] drain. There was noted to be a [...] condition. Kyle Espinal M.D. gls Dictated: 07/12/2019 #[id number] Typed: 07/12/2019 #[id number] cc: Harrison Sow M.D.[facility] HospitalComment on above:Result Comment: Electronically Signed By: Kyle ESPINAL MD\Date and Time Signed: 07/12/19 13:03 ESTOperative ReportDate of Surgery: 07/12/2019 SURGEON: Miles Damon Jr., [...] proceeded under general anesthesia. Miles Damon Jr., D.O. gls Dictated: 07/12/2019 #[id number] Typed: 07/12/2019 #[id number] cc: Miles Damon Jr., D.O.[facility] HospitalComment on above:Result Comment: Electronically Signed By: Miles Damon JR, DO\Date and Time Signed: 07/12/19 10:11 ESTPatient Education - Texton 10-29-4081Vggdwkc Education - Text [facility] HospitalProgress Note-Physicianon 84-32-7215Ujjtpynq Note-PhysicianPatient: DAMI ALCALA Age: 69 years Sex: Male [...] list: All Problems Hypertension / SNOMED CT 1215373022 / Confirmed Smoker / SNOMED CT 239482179 / Confirmed Added secondary to documentation in Social History. Tobacco abuse / SNOMED CT 122484691 / Confirmed COPD with hypoxia / SNOMED CT 50172819 / Confirmed Requires oxygen therapy / SNOMED CT 7361268981 / Confirmed Left inguinal hernia / SNOMED CT 897242167 / Confirmed Dyspnea on exertion / SNOMED CT 176640290 / Confirmed, Active Problems (7) COPD with hypoxia Dyspnea on exertion Hypertension Left inguinal hernia Requires oxygen therapy Smoker Tobacco abuse Histories Past Medical History: No active or resolved past medical history items have been selected or recorded. Family History: Cancer of liver Father Procedure history: Tear of biceps tendon (9618383222). Bilateral vasectomy (445405706). Social History Social & Psychosocial Habits Alcohol [...] (JUL 12:19) Resp Rate 20 br/min (JUL 12 06:16) SBP 125 mmHg (JUL 12 06:19) DBP 61 mmHg (JUL 12:19) SpO2 94 % (JUL 12 06:19) Airway: Normal oral/pharyngeal anatomy.. Respiratory: Adequate air exchange.. Cardiovascular: Adequate perfusion and function. Review / Management Results review: No qualifying data available . Plan [place] [employer] Anesthesiologists (ASA) physical status classification: Class III. Anesthetic Preoperative Plan Anesthesia: General. , Regional LEFT TAP BLOCK. Anesthetic plan, risks, benefits, and alternatives discussed with the patient and/or family. Pt. and/or family present and agree to proceed as planned.. Discussed the importance of abstaining from tobacco products, and offered counseling if desired.[facility] Comment on above:Result Comment: Electronically Signed By: Miles Damon JR, DO\Date and Time Signed: 07/12/19 08:41 ESTCoding Summary.on 07-03-2019 Coding Summary.CODING DATE: 07/03/2019 FINAL [facility] D[facility] STATUS: Home (Routine DC) PAYOR: Medicare APC [...] Carito Lomas CphT Date Saved: 07/03/2019 12:32 pmNSt. Mary's Medical CenterXR Chest 2 Views on 12-09-2053UG Chest 2 ViewsExam Date/Time: 07/02/2019 16:38 EST Reason for Exam: [...] Sherman Medina M.D. Transcribed by: MARIETTA Technologist: ElmaMagruder HospitalBUNon 06-41-2647Syou nitrogen [Mass/Vol]12 mg/dLNoal[address] [place] [address] Comment on above:Performed By: #### 6445080, 7735918, 23343615, 3142036, 7130543, 4831416 #### [facility] [address] [place] [address] 33368UYK w/Indiceson 05-71-5839Chnocnzybbe distribution width (RBC) [Ratio]20.6 %High10.9-14.2FBarney Children's Medical CenterComment on above:Performed By: #### 0133297, 1165161, 03399674, 2431420, 2399104, 8879591 #### [facility] [address] [place] [address] 86466Flciwoljvs (Bld) [Volume fraction]35.6 %Low37.7-49.0[facility] HospitalComment on above:Performed By: #### 5178739, 0229774, 10218578, 9664713, 0136346, 6737755 #### [facility] [address] [place] [address] 21141Llzbjmgzry (Bld) [Mass/Vol]10.5 g/dLLow13.5-17.5FBarney Children's Medical CenterComment on above:Performed By: #### 9289819, 4280765, 89828166, 2955969, 2707285, 3474513 #### [facility] [address] [place] [address] 47541OZJ (RBC) [Entitic mass]20.2 pgLow27.0-34.0[facility] HospitalComment on above:Performed By: #### 8447909, 4107566, 43574113, 7997944, 5494470, 0235152 #### [facility] [address] [place] [address] 39967TCOB (RBC) [Mass/Vol]29.4 g/dLLow31.4-36.0[facility] HospitalComment on above:Performed By: #### 1207600, 0058015, 62060828, 9703178, 5310516, 1666092 #### [facility] [address] [place] [address] 40616ZNZ (RBC) [Entitic vol]68.7 fLLow80.0-100.0[facility] HospitalComment on above:Performed By: #### 5988688, 3936303, 18251128, 1364485, 7413488, 1138957 #### [facility] [address] [place] [address] 36464Jejicypl mean volume (Bld) [Entitic vol]9.3 fLNormal6.4-10.8 [facility] HospitalComment on above:Performed By: #### 8939886, 2551769, 37728846, 7127125, 0274731, 9599414 #### [facility] [address] [place] [address] 30504Edplpiagx (Bld) [#/Vol]353.0 E9/HGtouxv095.0-500.0[facility] HospitalComment on above:Performed By: #### 0381091, 9788181, 19309396, 2332254, 4320148, 5844908 #### [facility] [address] [place] [address] 19771TXZ (Bld) [#/Vol]5.2 E12/LNormal4.3-5.9[facility] HospitalComment on above:Performed By: #### 3321631, 8454915, 13045531, 1543639, 0302533, 0089988 #### [facility] [address] [place] [address] 24834QIJ corrected for nucl RBC Auto (Bld) [#/Vol]12.0 E9/LHigh 4.0-11.0[facility] HospitalComment on above:Performed By: #### 8969567, 9240626, 34345149, 1876741, 6108667, 2791221 #### [facility] [address] [place] [address] 66441Ykjikgpsgdzl 57-91-4384Aqgyvzwfrx [Mass/Vol]0.7 mg/dLNormal 0.5-1.3FBarney Children's Medical CenterComment on above:Performed By: #### 1197616, 6098860, 18168006, 9596395, 6907595, 3199615 #### [facility] [address] [place] [address] 66159Jselwllan 62-84-3933Lunahpu [Mass/Vol]94 mg/eCUzmsaw25-331 [facility] HospitalComment on above:Performed By: #### 6854731, 9736925, 61873210, 3936083, 9128071, 8277432 #### [facility] [address] [place] [address] 78449Mlapmzg 32-12-0504Xjmnw gap [Moles/Vol]11 mmol/LNormal6-16 [facility] HospitalComment on above:Performed By: #### 4045572, 4551455, 84134435, 7766087, 8733329, 8920606 #### [facility] [address] [place] [address] 56756Mapsqgzg [Moles/Vol]94 mmol/INoh574-330BxrzgcSelect Medical Trihealth Rehabilitation HospitalComment on above:Performed By: #### 4169898, 5467107, 41218092, 1363944, 2423369, 1653239 #### [facility] [address] [place] [address] 93583OT5 [Moles/Vol]33 mmol/COtaj57-61BqsisfSelect Medical [facility] Rehabilitation Hospital Comment on above:Performed By: #### 3867797, 5777457, 81979159, 8630862, 5113329, 6724321 #### [facility] [address] [place] [address] 51504Lwgzwwogl [Moles/Vol]4.2 mmol/LNormal3.5-5.3FBarney Children's Medical CenterComment on above:Performed By: #### 0731685, 9386381, 67695517, 2241191, 4840731, 5350030 #### [facility] [address] [place] [address] 14217Xjbcht [Moles/Vol]134 mmol/URxz571-385AwmsegSelect Medical Trihealth Rehabilitation HospitalComment on above:Performed By: #### 7822708, 6620229, 24326692, 3982970, 4550358, 5271615 #### [facility] [address] [place], [place] [address]bNNWys 18-08-6143CJY/1.73 sq M predicted among blacks MDRD (S/P/Bld) [Vol rate/Area]mL/min/{1.73_m2}Normal>=59[facility] Comment on above:Order Comment: Order added by Discern Expert.Result Comment: eGFR is race adjusted. AA=.Performed By: #### 7116674, 3061338, 93235772, 7350090, 1669356, 8424399 #### [facility] [address], [place] [address]XKY/1.73 sq M predicted among non-blacks MDRD (S/P/Bld) [Vol rate/Area]mL/min/{1.73_m2}Normal>=59[facility] HospitalComment on above: Order Comment: Order added by Discern Expert.Result Comment: Chronic kidney disease could be indicated at eGFR's of less than 60 mL/min/1.73m2. Kidney failure is indicated at less than 15 mL/min/1.73m2.Performed By: #### 3809269, 5718212, 00523509, 3015980, 3288995, 3973982 #### [facility] [address] [place], [place] [address]OPTMY METABOLIC PANELon 52-78-7732Mlxhiof mass conc8.7 mg/dL Normal8.6-10.3The [facility] Medical CenterComment on above:Order Comment: No: Do not add to previous drawPerformed By: #### 80130, 87014, 25792, 82952, 54922, 94322, 54476 ####[facility] [place] [address], USAChloride molar conc94 mmol/FHmv20-625Fbv [facility] CenterComment on above:Order Comment: No: Do not add to previous drawPerformed By: #### 70284, 28859, 41964, 24472, 32763, 10870, 54266 ####[facility] [place] [address], [place] CO2 molar conc36 mmol/WRifm86-38Fsq [facility] CenterComment on above:Order Comment: No: Do not add to previous drawPerformed By: #### 80396, 14996, 30657, 29551, 82678, 20143, 09532 ####[facility] [place] [address], [address] [facility] MEMORIAL HOSPITALCreatinine mass conc0.50 mg/dLLow 0.70-1.30The [facility] Medical CenterComment on above:Order Comment: No: Do not add to previous drawPerformed By: #### 10783, 40388, 02034, 61783, 98507, 08610, 15649 ####[facility] [place] [address], USAGFR/1.73 sq M predicted among blacks MDRD vol rate/area (S/P/Bld)mL/min/{1.73_m2}Normal>60The [facility] CenterComment on above:Order Comment: No: Do not add to previous drawPerformed By: #### 27783, 03838, 01207, 54788, 25992, 63463, 57768 ####[facility] [place] [address], USAGFR/1.73 sq M predicted among non- blacks MDRD vol rate/area (S/P/Bld)mL/min/{1.73_m2}Normal>60The [facility] CenterComment on above:Order Comment: No: Do not add to previous drawPerformed By: #### 10579, 91900, 36748, 73763, 03583, 66318, 21421 ####[facility] [place] [address], [place] Glucose mass cptx578 mg/xGMpur40-836Hhp [facility] Comment on above:Order Comment: No: Do not add to previous drawPerformed By: #### 64065, 41132, 75088, 73771, 18081, 58355, 88992 ####[place] [address] [place] [address], USAPotassium molar conc4.3 mmol/LNormal3.5-5.1The [facility] CenterComment on above:Order Comment: No: Do not add to previous drawPerformed By: #### 68721, 18707, 45379, 67936, 66812, 15830, 61487 ####[address] [place] [address], USASodium molar lomy849 mmol/CEfq800-390Tvm [facility] CenterComment on above:Order Comment: No: Do not add to previous drawPerformed By: #### 81545, 25473, 64671, 03062, 08843, 55953, 07124 ####[address] [place] [address], [place] Urea nitrogen mass conc7 mg/dLNormal7-25The [facility] Comment on above:Order Comment: No: Do not add to previous drawPerformed By: #### 83799, 91953, 86235, 55567, 95015, 20642, 68020 ####[address] [place] [address], USACBC COMPLETE BLOOD COUNTon 70-50-8411Jznsknwdinw distribution width Auto Ratio (RBC)23.4 %High11.5-15.0The [facility] CenterComment on above:Order Comment: No: Do not add to previous drawPerformed By: #### 56152, 63937, 88481, 62880, 09987, 58695, 83489 ####[place] [address] [place] [address], USAHematocrit Auto Volume Fraction (Bld)31.4 %Low39.0-50.0The [facility] CenterComment on above:Order Comment: No: Do not add to previous drawPerformed By: #### 42404, 40812, 30983, 16622, 89654, 59066, 86259 ####[facility] [place] [address], [facility] Hemoglobin mass conc (Bld)8.4 g/dLLow13.0-17.0The [facility] CenterComment on above:Order Comment: No: Do not add to previous drawPerformed By: #### 27109, 39597, 16429, 67434, 70874, 37970, 15687 ####[address] [place] [address], [facility] HOSPITALIMM PLATELET FRAC7.9 %High0.8-6.3The [facility] CenterComment on above:Order Comment: No: Do not add to previous drawPerformed By: #### 48102, 75322, 60247, 97467, 57518, 91117, 31034 ####[address] [place] [address], [facility] [place] Auto Entitic mass (RBC)19.2 pgLow27.0-33.0The [facility] CenterComment on above:Order Comment: No: Do not add to previous drawPerformed By: #### 67513, 74862, 32978, 30472, 27431, 40611, 59046 ####[place] [address] [place] [address], [facility] HOSPITALMCHC Auto mass conc (RBC)26.8 g/dLLow32.0-35.0The [facility] CenterComment on above:Order Comment: No: Do not add to previous draw Performed By: #### 75439, 85234, 66402, 07816, 45402, 76378, 98224 ####[place] [address] [place] [address], [facility] MCV Auto Entitic volume (RBC)71.9 fLLow82.0-98.0The [facility] CenterComment on above:Order Comment: No: Do not add to previous drawPerformed By: #### 73629, 34784, 75875, 70957, 46124, 01664, 71415 ####[facility] [place] [address], [facility] HOSPITALNucleated RBC/100 WBC Ratio (Bld)0 %Normal0-0The [facility] CenterComment on above:Order Comment: No: Do not add to previous drawPerformed By: #### 75469, 40294, 88210, 12564, 66378, 46903, 84891 ####[facility] [place] [address], DR[facility] HOSPITALPLAT KNG696 10*3/fSEkanfo784-372 The [facility] CenterComment on above:Order Comment: No: Do not add to previous drawPerformed By: #### 31982, 23619, 09142, 44012, 96062, 60811, 76956 ####[facility] [place] [address], DR[facility]OR[facility] HOSPITALRBC Auto #/vol (Bld)4.37 10*6/uLNormal4.20-5.70The [facility] CenterComment on above:Order Comment: No: Do not add to previous drawPerformed By: #### 60921, 63054, 62339, 02924, 41112, 26642, 22683 ####[facility] [place] [address], [facility] WBC Auto #/vol (Bld)6.83 10*3/uLNormal4.00-10.60The [facility] CenterComment on above:Order Comment: No: Do not add to previous drawPerformed By: #### 80892, 74378, 07316, 76661, 09350, 03803, 78030 ####[facility] [place] [address], USABASIC METABOLIC PANELon 69-63-9505Ddtrlgp mass conc8.6 mg/dLNormal8.6-10.3The [facility] CenterComment on above:Order Comment: No: Do not add to previous drawPerformed By: #### 48076, 91941, 86017, 40028, 40546, 92339, 35036 ####[facility] [place] [address], [place] Chloride molar conc94 mmol/KZek67-437Exy [facility] Comment on above:Order Comment: No: Do not add to previous drawPerformed By: #### 25568, 55689, 89920, 66392, 52366, 53997, 58312 ####[address] [place] [address], USACO2 molar conc38 mmol/LHigh -The [facility] CenterComment on above:Order Comment: No: Do not add to previous drawPerformed By: #### 50574, 41559, 75698, 13658, 07163, 90859, 85488 ####[address] [place] [address], [facility] HOSPITALCreatinine mass conc0.49 mg/dLLow0.70-1.30The [facility] CenterComment on above:Order Comment: No: Do not add to previous draw Performed By: #### 68151, 06462, 54384, 08772, 97229, 17833, 75206 ####[facility] [place] [address], [place] GFR/1.73 sq M predicted among blacks MDRD vol rate/area (S/P/Bld) mL/min/{1.73_m2}Normal>60The [facility] CenterComment on above:Order Comment: No: Do not add to previous drawPerformed By: #### 33383, 81762, 82210, 18721, 74710, 44760, 39423 ####[facility] [place] [address], USAGFR/1.73 sq M predicted among non- blacks MDRD vol rate/area (S/P/Bld)mL/min/{1.73_m2}Normal>60The [facility] CenterComment on above:Order Comment: No: Do not add to previous drawPerformed By: #### 17891, 68557, 88570, 55619, 46422, 34129, 78773 ####[address] [place] [address], [place] Glucose mass conc79 mg/pJUqahuc99-070Cfp [facility] Comment on above:Order Comment: No: Do not add to previous drawPerformed By: #### 40498, 63187, 28621, 81613, 22625, 16991, 27076 ####[address] [place] [address], USAPotassium molar conc4.2 mmol/LNormal3.5-5.1The [facility] CenterComment on above:Order Comment: No: Do not add to previous drawPerformed By: #### 96860, 07124, 82982, 12367, 91706, 38935, 89040 ####[address] [place] [address], USASodium molar oalf933 mmol/QMag584-662Nbl [facility] CenterComment on above:Order Comment: No: Do not add to previous drawPerformed By: #### 06781, 70045, 83586, 95529, 94739, 05005, 91471 ####[place] [address] [place] [address], [place] Urea nitrogen mass conc7 mg/dLNormal7-25The [facility] Comment on above:Order Comment: No: Do not add to previous drawPerformed By: #### 79948, 48213, 30670, 56932, 14868, 44924, 47058 ####[address] [place] [address], [facility] HOSPITALCBC COMPLETE BLOOD COUNTon 97-73-3440Uagdwoipsbf distribution width Auto Ratio (RBC)23.3 %High11.5-15.0The [facility] CenterComment on above:Order Comment: No: Do not add to previous drawPerformed By: #### 68027, 17253, 05581, 08042, 29660, 69407, 87316 ####[address] [place] [address], DR[facility]ORIAL HOSPITALHematocrit Auto Volume Fraction (Bld)33.8 %Low39.0-50.0The [facility] CenterComment on above:Order Comment: No: Do not add to previous drawPerformed By: #### 61298, 15293, 25830, 11206, 46147, 05427, 86409 ####[address] [place] [address], [facility] Hemoglobin mass conc (Bld)8.9 g/dLLow13.0-17.0The [facility] CenterComment on above:Order Comment: No: Do not add to previous drawPerformed By: #### 81309, 66095, 35631, 80426, 57379, 41689, 46139 ####[address] [place] [address], [facility] HOSPITALIMM PLATELET FRAC8.8 %High0.8-6.3The [facility] CenterComment on above:Order Comment: No: Do not add to previous drawPerformed By: #### 87744, 18335, 43589, 84527, 07406, 90279, 65256 ####[address] [place] [address], DR[facility] HOSPITALMCH Auto Entitic mass (RBC)19.3 pgLow27.0-33.0The [facility] CenterComment on above:Order Comment: No: Do not add to previous drawPerformed By: #### 61269, 59180, 44841, 03466, 37588, 06225, 65849 ####[facility] [facility] [place] [address], DR[facility] HOSPITALMCHC Auto mass conc (RBC)26.3 g/dLLow32.0-35.0The [facility] CenterComment on above:Order Comment: No: Do not add to previous draw Performed By: #### 40291, 93888, 67684, 34143, 40979, 51151, 76910 ####[address] [place] [address], [facility] MCV Auto Entitic volume (RBC)73.2 fLLow82.0-98.0The [facility] CenterComment on above:Order Comment: No: Do not add to previous drawPerformed By: #### 39047, 52468, 07866, 09356, 27484, 83077, 54905 ####[address] [place] [address], [facility] HOSPITALNucleated RBC/100 WBC Ratio (Bld)0 %Normal0-0The [facility] CenterComment on above:Order Comment: No: Do not add to previous drawPerformed By: #### 09901, 99723, 21394, 13087, 39441, 03374, 07313 ####[facility] [place] [address].[place] [address], DR[facility] C[facility] TRIGG MEMORIAL HOSPITALPLAT QFO995 10*3/mEOnasyt588-365 The [facility] CenterComment on above:Order Comment: No: Do not add to previous drawPerformed By: #### 19298, 44333, 84561, 10310, 83369, 73108, 94778 ####[address] [place] [address], DR[facility] TRIG[facility] MEM[facility] HOSPITALRBC Auto #/vol (Bld)4.62 10*6/uLNormal4.20-5.70The [facility] CenterComment on above:Order Comment: No: Do not add to previous drawPerformed By: #### 18704, 50484, 12109, 62595, 42367, 61176, 44539 ####[address] WBC Auto #/vol (Bld)5.41 10*3/uLNormal4.00-10.60The [facility] CenterComment on above:Order Comment: No: Do not add to previous drawPerformed By: #### 18092, 48490, 64339, 41295, 68457, 52535, 78746 ####[address] StreetCardiovascular Lab Reporton 46-77-1935Vfoyxetovarymc Lab ReportUnPomerene Hospital Patient Name: [facility] Cherelle MR #: [id number] of Physician: Brandy Castle MJudyDivision of Service Date: 05/22/2018Cardiology Birthdate: [birth year]Adult Cardiovascular Room #: 3AB [id number] [address]Phone Fax Cardiovascular Laboratory ReportFINAL IMPRESSIONS:1. Moderately elevated right-sided heart pressures.2. Normal pulmonary capillary wedge pressures.3. Mildly elevated transpulmonary gradient, which would suggest pulmonary arterial hypertension.4. Normal cardiac output/cardiac index.5. No evidence of significant oxygen step-up with a normal Qp/Qs.RE COMMENDATIONS/PLAN:1. Consider etiologies for the patient's pulmonary hypertension and abnormal echocardiogram, mainly pulmonary.2. Aggressive cardiovascular risk factor modification.3. Optimization of medical management.4. Further recommendations deferred to the Inpatient Services.PROCEDURES: Ultra sound-guided access of the right internal jugular vein,right heart catheterization, comprehensive oximetry run.METHODS: After risks, benefits, and alternatives were explained, writteninformed consentwas obtained. The patient was prepped and draped in theusual sterile fashion over the right neck. Using 1% lidocaine solution,local infiltration anesthesia was achieved. Using modified Seldingertechnique, a micropuncture kit, and on the ultrasound guidance access ofright internal jugular vein was obtained. A 6-Mongolian 11 cm sheath wasinserted without difficulty.Right heart catheterization was performed using a Luque catheter via thevenous sheath. Pressures were measured in right atrium, right ve ntricle,pulmonary artery, and pulmonary capillary wedge positions. Oxygensaturations were obtained and a cardiac output/cardiac index was calculatedusing the Clem principle.Oxygen saturations were obtained during the right heart catheterizationfrom the pulmonary artery, pulmonary capillary wedge, right ventricle, andright atrial positions. A Qp/Qs was calculated. After reviewing all thehemodynamic data, it was elected to conclude the procedure.The Luque catheter was removed. The jugular sheathwas removed withapplication of manual pressure to achieve optimal hemostasis. Overall, thepatient tolerated the procedure well. There were no overt complications.He was to be transferred to the holding area in stable condition.FINDINGS:Hemodynamics:RA 10.RV 47/6, 9.PA 47/17 (29).PCWP 10.AO 88/56.Cardiac output 8.44/cardiac index 4.18.Oxygen saturations:RA 69RV 70PA 71.4PCWP 96.7AO 96Qp/Qs of 1.00.INDICATIONS: Abnormal echocardiogram, right-sided chamber enlargement, andpulmonary hypertension.Lana ctronically Signed by:Carlyn Ngo M.D. 05/31/2018 12:44 P Carlyn Ngo M.D.Date Dict: 05/22/2018/03:27 P/Carlyn Ngo M.D.Date Trans: 05/23/2018 01:55 Luis F/christel DN_JN:[id number]: Polina Webber M.D. [address] [place] [address] Sp Berry M.D. [address] [place], [place] [address]MAGNESIUM BLOODon 69-16-6767Daivxvlex mass conc1.9 mg/dLNormal1.9-2.7The [facility] CenterComment on above:Order Comment: No: Do not add to previous drawPerformed By: #### 99098, 79566, 60783, 01509, 82067, 42674, 30159 ####[facility] [place] [address], USAPROTHROMBIN TIMEon 20-43-6565QPV Coag RelTime (PPP)1.52 {INR}High0.91-1.16The [facility] Comment on above:Order Comment: No: Do not add to previous drawResult Comment: ACCCP RECOMMENDED INR FOR WARFARIN THERAPY CONDITION INRPROPHYLAXIS OF VENOUS THROMBOSIS 2-3(HIGH-RISK SURGERY)TREATMENT OF VENOUS THROMBOSIS 2-3TREATMENT OF PULMONARY EMBOLISM 2-3PREVENTION OF SYSTEMIC EMBOLISM: 2-3 ACUTE MYOCARDIAL INFARCTION TISSUE HEART VALVES VALVULAR HEART DISEASE ATRIAL FIBRILLATION RECURRENT SYSTEMIC EMBOLISMMECHANICAL HEART VALVE 2.5-3.5 FROM: ORAL ANTICOAGULANTS. MECHANISM OF ACTION, CLINICALEFFECTIVENESS, AND OPTIMAL THERAPEU TIC RANGE. [id number];108:231S-246S.Performed By: #### 71858, 06254, 90333, 28824, 16377, 51939, 85905 ####[facility] [facility] [place] [address], [facility] HOSPITALProthrombin time (PT) Coag time (PPP)18.4 sHigh 12.3-14.8The [facility] CenterComment on above:Order Comment: No: Do not add to previous drawResult Comment: ALL RESULTS MUST BE INTERPRETED WITH RESPECT TO BLOOD DRAWING ARTIFACTOR DILUTION ERROR OF ANTICOAGULANT AT THE TIME OF SAMPLING.Performed By: #### 89578, 00583, 07383, 54155, 54718, 68877, 91662 ####[facility] [place] [place] [address], [facility]*BLOOD CULTUREon 61-92-0986Donjzyxb identified in Blood by CultureClinical Report: (D) Specimen: BLOOD CULTURE Collected: 05/22/2018 17:59 Status: Final Last Updated: 05/28/2018 06:25 (1) Right hand 1759 CULT RES (Final) No Growth Day [address] [place], [place] [address]Comment on above: Order Comment: No: Do not add to previous drawPerformed By: #### 72418, 53108, 11423, 54502, 44821, 48475, 01598 ####[address] [place] [address], [facility] HOSPITALBacteria identified in Blood by Culture Clinical Report: (D) Specimen: BLOOD CULTURE Collected: 05/22/2018 11:16 Status: Final Last Updated: 05/27/2018 14:19 (1) Pt gone to heart and vas Lt hand CULT RES (Final) No Growth Day [address] [place], [place] [address]Comment on above: Order Comment: No: Do not add to previous drawPerformed By: #### 40553, 70400, 37434, 17858, 16126, 51165, 71402 ####[place] [address] [place] [address], [facility] HOSPITALBASIC METABOLIC PANELon 72-17-9292Nnhnmhj mass conc8.9 mg/dLNormal8.6-10.3The [facility] CenterComment on above:Performed By: #### 47729, 08947, 18511, 05991, 63441, 73899, 95648 ####[place] [address] [place] [address], [facility] Chloride molar conc91 mmol/JNyy37-351Puu [facility] Comment on above:Performed By: #### 82455, 26940, 96782, 28452, 16624, 09335, 17044 ####[address] [place] [address], DR[facility] HOSPITALCO2 molar conc35 mmol/RClza19-89Wty [facility] Comment on above:Performed By: #### 24646, 66758, 64903, 69943, 62518, 43127, 18502 ####[address] [place] [address], [facility] HOSPITALCreatinine mass conc0.83 mg/dLNormal0.70-1.30The [facility] CenterComment on above:Performed By: #### 08870, 04253, 06535, 53144, 45825, 74237, 20133 ####[address] [place] [address], [facility] HOSPITALGFR/1.73 sq M predicted among blacks MDRD vol rate/area (S/P/Bld) mL/min/{1.73_m2}Normal>60The [facility] CenterComment on above:Performed By: #### 14139, 73394, 64786, 16685, 52985, 05972, 70308 ####[address] [place] [address], [place] GFR/1.73 sq M predicted among non-blacks MDRD vol rate/area (S/P/Bld) mL/min/{1.73_m2}Normal>60The [facility] CenterComment on above:Performed By: #### 37691, 03333, 14436, 79037, 43014, 74414, 21095 ####[address] [place] [address], [place] Glucose mass conc88 mg/cVYjadvd64-012Gqn [facility] Comment on above:Performed By: #### 07222, 06032, 87885, 67263, 50672, 56408, 88344 ####[address] [place] [address], [facility] HOSPITALPotassium molar conc4.4 mmol/LNormal3.5-5.1The [facility] CenterComment on above:Performed By: #### 99035, 06570, 28239, 10889, 91800, 04792, 53752 ####[address] [place] [address], [facility] HOSPITALSodium molar tpia220 mmol/NZlw638-986Dnj [facility] CenterComment on above:Performed By: #### 61758, 36404, 14211, 91368, 34805, 85797, 42511 ####[address] [place] [address], USAUrea nitrogen mass conc18 mg/dLNormal7-25The [facility] CenterComment on above:Performed By: #### 93443, 20008, 37798, 87104, 72409, 67436, 16739 ####[address] [place] [address], [facility] HOSPITALCBC W/DIFFon 95-98-8511MFM BASOPHILS0.1 10*3/uLNormal 0.0-0.2The [facility] CenterComment on above:Order Comment: No: Do not add to previous drawPerformed By: #### 10448, 90398, 95143, 66797, 83922, 82442, 62398 ####[address] [place] [address], [facility] HOSPITALABS IMM GRANS0.0 10*3/uLNormal0.0-0.2The [facility] CenterComment on above:Order Comment: No: Do not add to previous drawPerformed By: #### 29537, 29479, 46970, 98725, 58145, 93970, 00162 ####[address] [place] [address], [place] ABS NEUTROPHILS4.4 10*3/uLNormal1.6-7.6The [facility] Comment on above:Order Comment: No: Do not add to previous drawPerformed By: #### 23823, 86259, 93879, 19345, 80876, 59121, 68356 ####[address] [place] [address], USAANISOModerateNormalThe [facility] CenterComment on above:Order Comment: No: Do not add to previous drawPerformed By: #### 53008, 50117, 36060, 10584, 65491, 43509, 48947 ####[address] [place] [address], [facility] HOSPITALBasophils Auto #/vol (Bld)1.1 %High0.0-1.0The [facility] CenterComment on above:Order Comment: No: Do not add to previous drawPerformed By: #### 96183, 10883, 80240, 99136, 72530, 62811, 66493 ####[address] [place] [address], DR[facility] HOSPITALELLIPTOCYTESSlight NormalThe [facility] CenterComment on above:Order Comment: No: Do not add to previous drawPerformed By: #### 33525, 68275, 06773, 71123, 25592, 96570, 35237 ####[address] [place] [address], USAEosinophils Auto #/vol (Bld)0.1 10*3/uLNormal0.0-0.5The [facility] CenterComment on above:Order Comment: No: Do not add to previous drawPerformed By: #### 33189, 56570, 34360, 98426, 53408, 85657, 97865 ####[address] [place] [address], [place] Eosinophils/100 WBC Auto (Bld)1.4 %Normal0.0-6.0The [facility] CenterComment on above:Order Comment: No: Do not add to previous drawPerformed By: #### 16944, 83296, 03698, 35814, 06441, 23980, 21542 ####[address] [place] [address], DR[facility] D[facility] C[facility] TRIGG MEMORIAL HOSPITALErythrocyte distribution width Auto Ratio (RBC)23.7 %High11.5-15.0The [facility] CenterComment on above:Order Comment: No: Do not add to previous draw Performed By: #### 99974, 83393, 84149, 32808, 27594, 14922, 17958 ####[address] [place] [address], [facility] Hematocrit Auto Volume Fraction (Bld)33.7 %Low39.0-50.0The [facility] CenterComment on above:Order Comment: No: Do not add to previous draw Performed By: #### 54760, 96695, 03882, 94010, 58227, 29777, 89748 ####[address] [place] [address], [facility] Hemoglobin mass conc (Bld)9.0 g/dLLow13.0-17.0The [facility] CenterComment on above:Order Comment: No: Do not add to previous drawPerformed By: #### 36032, 81985, 57726, 84838, 67174, 81434, 08261 ####[place] [address] [place] [address], USAThe Bellevue HospitalComment on above:Order Comment: No: Do not add to previous drawPerformed By: #### 72441, 74673, 56714, 88416, 18961, 04745, 52282 ####[address] [place] [address], [facility] MEMORIAL HOSPITALIMM PLATELET FRAC10.9 %High0.8-6.3The [facility] Comment on above:Order Comment: No: Do not add to previous drawPerformed By: #### 72849, 26127, 73339, 29940, 97650, 40684, 68699 ####[address] [place] [address], USAIMMATURE GRANS0.3 %Normal 0.0-1.0The [facility] CenterComment on above:Order Comment: No: Do not add to previous drawPerformed By: #### 30471, 79496, 29131, 93022, 89410, 14117, 51572 ####[address] [place] [address], USALymphocytes Auto #/vol (Bld)1.0 10*3/uLLow1.2-4.0The [facility] CenterComment on above:Order Comment: No: Do not add to previous drawPerformed By: #### 40434, 35133, 32489, 44560, 42410, 57326, 34915 ####[address] [place] [address], [facility]IAL HOSPITALLymphocytes/100 WBC Auto (Bld)15.7 %Low20.0-45.0The [facility] CenterComment on above:Order Comment: No: Do not add to previous draw Performed By: #### 41200, 02817, 63557, 63770, 37926, 68508, 76961 ####[facility] [place] [address], [place] M[facility] Auto Entitic mass (RBC)19.4 pgLow27.0-33.0The [facility] CenterComment on above:Order Comment: No: Do not add to previous drawPerformed By: #### 54774, 39944, 89586, 35785, 02123, 92269, 84971 ####[address] [id number], [facility] [place] [facility] [place] Auto mass conc (RBC)26.7 g/dLLow32.0-35.0The [facility] CenterComment on above:Order Comment: No: Do not add to previous drawPerformed By: #### 72976, 91592, 40047, 38162, 96394, 07405, 11361 ####[facility] [facility].[place] [id number], [facility] [place] [facility] [place] Auto Entitic volume (RBC)72.5 fLLow82.0-98.0The [facility] CenterComment on above:Order Comment: No: Do not add to previous drawPerformed By: #### 87657, 54717, 74353, 53452, 49722, 92448, 78854 ####[address] [place] [address], DR[facility] HOSPITALMonocytes Auto #/vol (Bld)0.9 10*3/uLNormal0.1-1.0The [facility] CenterComment on above:Order Comment: No: Do not add to previous drawPerformed By: #### 79271, 95160, 91437, 15671, 25309, 94481, 71281 ####[facility] [place] [address].[place] [address], XLZRPCOS29.5 %High5.0-12.0The [facility] CenterComment on above:Order Comment: No: Do not add to previous drawPerformed By: #### 30818, 08724, 84734, 20684, 88989, 07714, 21024 ####[facility] [facility] [facility] [place] [address], USANeutrophils/100 WBC Auto (Bld)68.0 %Rxjcjc19.0-72.0The [facility] Medical CenterComment on above:Order Comment: No: Do not add to previous drawPerformed By: #### 50037, 15378, 88652, 56437, 36831, 31182, 74220 ####[facility] [place] [address], USANucleated RBC/100 WBC Ratio (Bld)1 %High0-0The [facility] CenterComselect specialty hospital-flint on above:Order Comment: No: Do not add to previous drawPerformed By: #### 68187, 58060, 18699, 78185, 19364, 24250, 12779 ####[facility] [place] [address], USAOVALOCYTESSPaulding County HospitalComment on above:Order Comment: No: Do not add to previous drawPerformed By: #### 69176, 48956, 33603, 51038, 97345, 81247, 87953 ####[address] [place] [address], USAPLAT ZBR224 10*3/dWXcsfij683-746 The [facility] Medical CenterComment on above:Order Comment: No: Do not add to previous drawPerformed By: #### 46581, 19815, 50173, 42266, 10872, 15310, 24000 ####[place] [address] [place] [address], USAPOIKRegency Hospital Cleveland EastComselect specialty hospital-flint on above:Order Comment: No: Do not add to previous drawPerformed By: #### 55708, 16658, 72659, 33230, 51210, 90827, 71079 ####[facility] [place] [address], USARBC Auto #/vol (Bld)4.65 10*6/uL Normal4.20-5.70The [facility] CenterComselect specialty hospital-flint on above:Order Comment: No: Do not add to previous drawPerformed By: #### 43797, 82066, 45468, 61766, 69800, 26880, 93826 ####[place] [address] [place] [address], USATARGET CELLSSlightNormalThe Wexner Medical CenterComment on above:Order Comment: No: Do not add to previous draw Performed By: #### 12970, 60356, 62383, 21451, 29800, 39525, 61635 ####[address] [place] [address], [place] WBC Auto #/vol (Bld)6.50 10*3/uLNormal4.00-10.60The [facility] Medical CenterComment on above:Order Comment: No: Do not add to previous drawPerformed By: #### 43008, 32770, 65164, 83725, 01353, 98663, 85028 ####[place] [address] [place] [address], USAMAGNESIUM BLOODon 56-16-0600Pvkpcnhxk mass conc1.7 mg/dLLow1.9-2.7The [facility] Medical CenterComment on above:Order Comment: No: Do not add to previous drawPerformed By: #### 42885, 03357, 09202, 90333, 45965, 22362, 58096 ####[place] [address] [place] [address], USAOSMOLALITY URINEon 34-07-6112TUFPOMFKDK450 mOsm/zwQicjph71-6640Ftq [facility] CenterComment on above:Order Comment: No: Do not add to previous drawPerformed By: #### 76504, 59768, 80182, 54510, 46610, 08499, 02525 ####[place] [address] [place] [address], USAPHOSPHORUS BLOODon 07-46-1249Kkrweyzuc mass conc3.4 mg/dLNormal2.5-5.0The [facility] CenterComment on above:Order Comment: No: Do not add to previous draw Performed By: #### 11613, 27294, 33734, 31785, 36191, 18234, 95260 ####[facility] [facility] [place] [address], [facility] PROTHROMBIN TIMEon 54-02-1630HEC Coag RelTime (PPP)1.64 {INR}High0.91-1.16The [facility] Medical CenterComment on above:Order Comment: No: Do not add to previous drawResult Comment: ACCCP RECOMMENDED INR FOR WARFARIN THERAPY CONDITION INRPROPHYLAXIS OF VENOUS THROMBOSIS 2-3(HIGH-RISK SURGERY)TREATMENT OF VENOUS THROMBOSIS 2-3TREATMENT OF PULMONARY EMBOLISM 2-3PREVENTION OF SYSTEMIC EMBOLISM: 2-3 ACUTE MYOCARDIAL INFARCTION TISSUE HEART VALVES VALVULAR HEART DISEASE ATRIAL FIBRILLATION RECURRENT SYSTEMIC EMBOLISMMECHANICAL HEART VALVE 2.5-3.5 FROM: ORAL ANTICOAGULANTS. MECHANISM OF ACTION, CLINICALEFFECTIVENESS, AND OPTIMAL THERAPEU TIC RANGE. [id number];108:231S-246S.Performed By: #### 41731, 66338, 64270, 34051, 74966, 16649, 56656 ####[facility] [facility] [place] [address], [facility]IAL HOSPITALProthrombin time (PT) Coag time (PPP)19.5 sHigh 12.3-14.8The [facility] Medical CenterComment on above:Order Comment: No: Do not add to previous drawResult Comment: ALL RESULTS MUST BE INTERPRETED WITH RESPECT TO BLOOD DRAWING ARTIFACTOR DILUTION ERROR OF ANTICOAGULANT AT THE TIME OF SAMPLING.Performed By: #### 49378, 83690, 07903, 50391, 50847, 38233, 71665 ####[facility] [facility] [place] [address], USASODIUM URINE RANDOMon 87-52-2445Qvxyhk molar conc32 mmol/LNormalThe [facility] Medical CenterComment on above:Order Comment: No: Do not add to previous drawResult Comment: There are no established reference values for random urine specimensPerformed By: #### 03323, 18878, 42392, 89607, 95363, 98114, 97938 ####[address] [address], USAUS HEPATIC ECHOGRAMon 83-60-1210LF HEPATIC ECHOGRAMUnWayne HealthCare Main CampusDepartment of Qcfhajqfi[address] [place] [id number] Patien t Name: DAMI ALCALA : 1950Sex: MAge: Race: WhiteMRN: [id number]. Location: [id number] Status: IVisit #: [id number] Date: 05/22/2018 9:15:00 AMCompleted Date: 05/22/2018 01:16 PMRequesting Provider: ALIYA OLMOS Attending Provider: KAHLIL GAY Report Copy To: Signs & Symptoms: RUQ/Abdominal PainHistory: Patient history not availableComments: R/O Liver DiseaseExam: US HEPATIC ECHOGRAMAccession #: [id number] US HEPATIC ECHOGRAM 05/22/2018 1:16 PM EST SIGNS AND SYMPTOMS: RUQ/Abdominal Pain TECHNOLOGIST COMMENTS: RUQ/Abdominal Pain QUESTION FOR THE RADIOLOGIST: R/O Liver Disease TECHNIQUE: Limited abdominal ultrasound. COMPARISON: none FINDINGS: The liver has normal echogenicity with no evidence of focal lesion or dilatation of intrahepatic bile ducts. Hepatopedal flow seen in the portalvein with a flow rate of 37 cm/s.The [...] suggested. Electronically signed by:Clemente Juárez. Transcribed by: [email or web address], User Resident: Electronically Signed by: CLEMENTE JUÁREZ @ 05/22/2018 02:45 PMNormalThe [facility]ner Medical CenterComment on above:Order Comment: No: Do not add to previous drawBNP (B-TYPE NATRIURETIC PEPTIDE)on 48-22-4645Agfhviqjjxz peptide B mass conc (Bld)790 pg/mLHigh0-100The [facility] Medical CenterComment on above:Order Comment: No: Do not add to previous drawResult Comment: Given the appropriate clinical setting a BNP result of >100 pg/mLindicates congestive heart failure.Performed By: #### 13478 ####[facility] CBC COMPLETE BLOOD COUNTon 50-38-0300Tmvbitsfxnd distribution width Auto Ratio (RBC)24.2 %High11.5-15.0The [facility] Medical CenterComment on above: Order Comment: No: Do not add to previous drawPerformed By: #### 65316 ####[facility] Hematocrit Auto Volume Fraction (Bld)34.4 %Low39.0-50.0The [facility] Medical CenterComment on above:Order Comment: No: Do not add to previous draw Performed By: #### 53714 ####[facility] [facility] [address], DR[facility]IAL HOSPITALHemoglobin mass conc (Bld)9.2 g/dLLow13.0-17.0The [facility] CenterComment on above:Order Comment: No: Do not add to previous drawPerformed By: #### 24577 ####[facility] [facility] [place] [address], DR[facility] TR[facility]G MEMORIAL HOSPITALIMM PLATELET FRAC11.8 %High0.8-6.3 The [facility] Medical CenterComment on above:Order Comment: No: Do not add to previous drawPerformed By: #### 97549 ####[facility] [facility] [place] [address], [facility] [place] [place] Auto Entitic mass (RBC)19.1 pgLow27.0-33.0The [facility] Medical CenterComment on above: Order Comment: No: Do not add to previous drawPerformed By: #### 93197 ####[facility] [facility] [place] [address], [facility] MCHC Auto mass conc (RBC)26.7 g/dLLow32.0-35.0The [facility] CenterComment on above:Order Comment: No: Do not add to previous drawPerformed By: #### 86574 ####[facility] [facility] [place] [address], DR[facility] HOSPITALMCV Auto Entitic volume (RBC)71.5 fLLow82.0-98.0The [facility] CenterComment on above:Order Comment: No: Do not add to previous drawPerformed By: #### 87845 ####[facility] [facility] [place] [address], USANucleated RBC/100 WBC Ratio (Bld)0 %Normal0-0 The [facility] Medical CenterComment on above:Order Comment: No: Do not add to previous drawPerformed By: #### 59791 ####[facility] [facility] [place] [address], DR[facility] DAN C[facility] TRIGG MEMORIAL HOSPITALPLAT SJQ875 10*3/uLNormal 150-400The [facility] CenterComment on above:Order Comment: No: Do not add to previous drawPerformed By: #### 47315 ####[facility] [place] [address].[place] [address], DR[facility] DAN C. TRIGG MEMORIAL HOSPITALRBC Auto #/vol (Bld)4.81 10*6/uLNormal4.20-5.70The [facility] Medical CenterComment on above: Order Comment: No: Do not add to previous drawPerformed By: #### 77783 ####[facility] [place] [address].[place] [address], [facility] WBC Auto #/vol (Bld)7.33 10*3/uLNormal4.00-10.60The [facility] Medical CenterComment on above:Order Comment: No: Do not add to previous drawPerformed By: #### 08089 ####[address] [place] [address], DR[facility] HOSPITALCOMP METABOLIC PANELon 78-07-9027Rmsrflf mass conc2.8 g/dLLow 3.5-5.7The [facility] CenterComment on above:Order Comment: No: Do not add to previous drawPerformed By: #### 64266, 75567, 50890, 79030, 17801, 58289, 54719 ####[address] [place] [address], DR[facility] HOSPITALALKALINE MYOYHH03 IU/MWppgoe89-177Utx [facility] CenterComment on above:Order Comment: No: Do not add to previous drawPerformed By: #### 17629, 86720, 79093, 51764, 61038, 35206, 63602 ####[address] [place] [address], [facility] ALT enzyme act/vol9 U/LNormal7-52The [facility] Medical CenterComment on above:Order Comment: No: Do not add to previous drawPerformed By: #### 18366, 85763, 10183, 41448, 02425, 59623, 23247 ####[facility] [place] [address], USAAST enzyme act/vol21 U/LNormal 13-39The [facility] CenterComment on above:Order Comment: No: Do not add to previous drawPerformed By: #### 49265, 94368, 00671, 57606, 16770, 59153, 47548 ####[facility] [place] [address], USABilirubin mass conc1.0 mg/dLNormal0.3-1.0The [facility] Medical CenterComment on above:Order Comment: No: Do not add to previous draw Performed By: #### 82032, 81107, 55872, 30867, 37331, 84331, 14334 ####[facility] [place] [address], [place] Calcium mass conc8.8 mg/dLNormal8.6-10.3The [facility] Comment on above:Order Comment: No: Do not add to previous drawPerformed By: #### 34053, 61783, 84953, 14769, 07308, 45231, 54885 ####[facility] [place] [address], USAChloride molar conc93 mmol/FOms68-298Eej [facility] CenterComment on above:Order Comment: No: Do not add to previous drawPerformed By: #### 19657, 59145, 57334, 27104, 79079, 31849, 03076 ####[facility] [place] [address], USACO2 molar conc31 mmol/HAjwbsy06-18Spm [facility] CenterComment on above:Order Comment: No: Do not add to previous drawPerformed By: #### 35072, 36906, 10575, 78734, 52940, 97567, 53432 ####[facility] [place] [address], [facility] Creatinine mass conc0.90 mg/dLNormal0.70-1.30The [facility] Medical CenterComment on above:Order Comment: No: Do not add to previous drawPerformed By: #### 55605, 53205, 57452, 03853, 30298, 60494, 15723 ####[facility] [place] [address], USAGFR/1.73 sq M predicted among blacks MDRD vol rate/area (S/P/Bld)mL/min/{1.73_m2}Normal>60The [facility] Medical CenterComment on above:Order Comment: No: Do not add to previous drawPerformed By: #### 55199, 87621, 74767, 70515, 78883, 52619, 32541 ####[address] [place] [address], USAGFR/1.73 sq M predicted among non-blacks MDRD vol rate/area (S/P/Bld) mL/min/{1.73_m2}Normal>60The [facility] Medical CenterComment on above:Order Comment: No: Do not add to previous drawPerformed By: #### 37719, 03707, 82889, 25294, 39544, 22313, 76785 ####[facility] [place] [address], DR[facility] TR[facility]ORIAL HOSPITALGlucose mass conc82 mg/dLNormal 70-100The [facility] CenterComment on above:Order Comment: No: Do not add to previous drawPerformed By: #### 73370, 05294, 84827, 19480, 77347, 25342, 76002 ####[facility] [place] [address], USAPotassium molar conc4.3 mmol/LNormal3.5-5.1The [facility] CenterComment on above:Order Comment: No: Do not add to previous draw Performed By: #### 76442, 64886, 70703, 83718, 88003, 62159, 70942 ####[address] [place] [address], [facility] Protein mass conc6.3 g/dLNormal6.0-8.3The [facility] Comment on above:Order Comment: No: Do not add to previous drawPerformed By: #### 81977, 51461, 54118, 65560, 29254, 78341, 60575 ####[address] [place] [address], DR[facility] MEM[facility]IAL HOSPITALSodium molar foiz945 mmol/L Ecd282-707Ves [facility] CenterComment on above:Order Comment: No: Do not add to previous drawPerformed By: #### 48896, 03265, 70800, 17349, 93992, 36012, 57140 ####[address] [place] [address], DR. DAN C. TRIGG MEMORIAL HOSPITALUrea nitrogen mass conc22 mg/dLNormal7-25The [facility] CenterComment on above:Order Comment: No: Do not add to previous drawPerformed By: #### 26755, 57976, 07587, 68822, 70304, 53366, 30738 ####[address] [place] [address], [facility] CTA CHESTon 71-53-2089IWO CHESTWexner Medical CenterDepartment of Zenlqleyf[address] [place] [phone] Patien t Name: DAMI ALCALA : 1950Sex: MAge: Race: WhiteMRN: [id number]. Location: [id number] Status: IVisit #: [id number] Date: 05/21/2018 5:10:00 PMCompleted Date: 05/21/2018 08:45 PMRequesting Provider: EVERARDO LIAO Attending Provider: KAHLIL GAY Report Copy To: Signs & Symptoms: Shortness of BreathHistory: Patient history not availableComments: R/O Pulmonary EmbolismExam : CTA CHESTAccession #: [id number] =====CTA CHEST 05/21/2018 8:45 PM EST SIGNS AND [...] loculated pleural effusion in the left posterior hemithorax.Architectural distortion of the lungs from emphysema is appreciated.Atelectasis is noted posteriorly in the right lower [...] large free right-sided pleural effusion and smaller posteriorlyloculated left-sided pleural effusion.4. Emphysema.5. Distended stomach.6. Ascites. Electronically signed by:Clemente Juárez. Transcribed by: [email or web address], User Resident: Electronically Signed by: CLEMENTE JUÁREZ @ 05/22/2018 07:51 AMNormalThe [facility] Medical CenterComment on above:Order Comment: No: Do not add to previous drawD DIMER TESTon 05-21-2018 D-DIMER TEST3.52 mcg/mL FEUHigh0.01-0.49The [facility] Comment on above:Order Comment: Yes: Add to Previous draw if ableResult Comment: D-Dimer values of less than 0.50 ug/ml (FEU) are considered to be anegative predictor of thrombosis. However, the D-Dimer result should beused in conjunction with pretest probability and should not be usedalone to diagnose a thrombotic event.Performed By: #### 73171, 43579 ####[facility] [facility] [place] [address], USAFERRITINon 05-21-2018 Ferritin [Mass/volume] in Serum or Plasma9 ng/xFGlg60-816Cdv [facility] CenterComment on above:Performed By: #### 54497, 48283, 31991, 64274, 74934, 64456, 85469 ####[facility] [facility] [place] [address], USAHistory and Physicalon 74-13-9529Hsgoobq and Physical MR#: [id number] Pt[facility] Name: Dami Alcala Admitted: 05/21/2018Date of : 1950 Attending Physician: Everardo Liao MD Room #: [id number] Discharge Date: HISTORY AND PHYSICALHISTORY OF PRESENT ILLNESS: The patient is a 67-year-old malewith pastmedical history significant for hypertension, tobacco dependence,history of alcohol abuse, history of cardiac tamponade back in 2016,[facility]. According to the [...] of malignancy. The patientdenies any history of AK, any history of stroke in the past. The patientdenied any history of weight loss, although he looks very cachectic andvery wasted. The patient has a history of significant smoking 1 pack perday for the past 50-55 years. The patient denies headache, blurring ofvision, difficulty in swallowing food. The patientdenies chest pain. Thepatient denies abdominal pain. The patient denies nausea, vomiting,dysuria, hematuria, joint pain. The patient was evaluated by Dr. Berryoutpatient in [facility] where the patient was found to havesevere right-sided heart failure on echocardiogram. At the time ofencounter, the patient was alert and active, not in acute distress. Bloodpressure was on monitor systolic 76/50. On manual check, blood pressurewas 98 but diastolic was unable to measure as per nurse.I d iscussed case with Dr. Berry over phone regarding hypotension and Iupdated him regarding the current situation as the patient is completelyasymptomatic. He would like to keep observe the patient and no plan foracute intervention at this point.REVIEW OF SYSTEMS: A 12-point review of system obtained, negative exceptas per presenting illness.PHYSICAL EXAMINATION: VITAL SIGNS: Blood pressure 98/56on manual. Thepatient is afebrile. No sign of labored breathing.GENERAL APPEARANCE: The patient is cachectic, thin. Bilateral temporalwasting visible. Alert and oriented x3. Son at bedside.HEART: S1,S2 audible. No S4 gallop, no S3 gallop noted.LUNGS: Mild bilateral crackles noted, but no wheezes, no rhonchi.ABDOMEN: soft, non tender, left lateral side is hard and little warm, butnon tenderHEAD AND NECK: JVD positive. Positive hepatojugular reflex. No lymphnode enlargement noted.MUSCULOSKELETAL: No joint deformity noted. Left lower extremity [...] STUDIES: CTA chest, ultrasound abdomen and bilateral lowerextremityDoppler has been ordered.ASSESSMENT AND PLAN:1. Acute hypoxic respiratory failure requiring 4 literoxygen, Rule out pulmonary embolism as echocardiogram from [...] will obtain a CTA chest to rule outPE, although it is less likely, patient could [...] studies including ferritin, iron level and TIBC. Continueto monitor serum HB level, transfuse as needed.3. [...] SIADH. We will get serum osmolality, urine o smolality, urine electrolytes and uric acid. Currently, the patient is asymptomatic. Continue to monitor.10. Code status discussed with the patient. The patient wants to be full code for now in frontof the nursing staff and the family.11. Disposition, pending clinical course.Electronically Signed by:Everardo Liao MD 05/24/2018 11:31 A Everardo Liao MDDate Dict: 05/21/2018/06:51 P/Everardo Liao MDDate Trans: 05/21/2018 07:33 P/mmoDN_JN:[id number] Hospitals Cleveland Medical CenterMAGNESIUM BLOODon 10-41-5230Nnsxyehqy mass conc1.7 mg/dLLow1.9-2.7The [facility] CenterComment on above:Order Comment: No: Do not add to previous draw Performed By: #### 34202, 00911, 32474, 11346, 80920, 67115, 81609 ####[facility] [facility] [place] [address], [facility] OSMOLALITY BLOODon 75-64-0964Issgklqsdc380 mOsm/ldDcfpxc683-440Qhd [facility] CenterComment on above:Performed By: #### 90903, 47903, 60857, 95982, 77737, 49482, 26037 ####[facility] [facility] [place] [address], DR[facility] HOSPITALPHOSPHORUS BLOODon 51-63-9255Pmwkmhvfw mass conc3.5 mg/dLNormal2.5-5.0The [facility] CenterComment on above: Performed By: #### 31162, 67673, 23027, 43949, 08154, 19795, 82856 ####[facility] [facility] [place] [address], [facility] PROTHROMBIN TIMEon 13-92-2851UQE Coag RelTime (PPP)1.48 {INR}High0.91-1.16The [facility] Medical CenterComment on above:Result Comment: ACCCP RECOMMENDED INR FOR WARFARIN THERAPY CONDITION INRPROPHYLAXIS OF VENOUS THROMBOSIS 2-3(HIGH-RISK SURGERY)TREATMENT OF VENOUS THROMBOSIS 2-3TREATMENT OF PULMONARY EMBOLISM 2-3PREVENTION OF SYSTEMIC EMBOLISM: 2-3 ACUTE MYOCARDIAL INFARCTION TISSUE HEART VALVES VALVULAR HEART DISEASE ATRIAL FIBRILLATION RECURRENT SYSTEMIC EMBOLISMMECHANICAL HEART VALVE 2.5-3.5 FROM: ORAL ANTICOAGULANTS. MECHANISM OF ACTION, CLINICALEFFECTIVENESS, AND OPTIMAL THERAPEU TIC RANGE. [id number];108:231S-246S.Performed By: #### 53679, 38210, 69594, 27607, 35359, 29802, 31703 ####[facility] [facility] [place] [address], DR[facility]IAL HOSPITALProthrombin time (PT) Coag time (PPP)18.0 sHig 12.3-14.8The [facility] Medical CenterComment on above:Result Comment: ALL RESULTS MUST BE INTERPRETED WITH RESPECT TO BLOOD DRAWING ARTIFACTOR DILUTION ERROR OF ANTICOAGULANT AT THE TIME OF SAMPLING.Performed By: #### 59875, 47223, 35943, 99915, 84669, 00465, 46510 ####[facility] [facility] [place] [address], DR[facility] C[facility] MEMORIAL HOSPITALTIBC- INCLUDES IRONon 14-93-1983KI SATURATION4 %Xnf51-81Wzw [facility] CenterComment on above: Performed By: #### 83887, 68328, 14511, 66194, 78707, 31290, 49426 ####[address] Iron mass conc17 ug/dAKvq79-651Vks [facility] CenterComment on above:Performed By: #### 82883, 91270, 92566, 32920, 86973, 09781, 14647 ####[address] XVMR014 mcg/dJQqguod314-201Ypm [facility] CenterComment on above:Performed By: #### 26500, 35385, 62141, 64960, 08706, 46990, 68686 ####[address] OIQA788 mcg/yQPtfa140-140Upv [facility] CenterComment on above:Performed By: #### 23899, 50033, 24720, 09510, 45264, 06291, 74766 ####[address] URIC ACID BLOODon 06-06-7627Oxdzi mass conc8.4 mg/dLHigh4.4-7.6The [facility] CenterComment on above:Performed By: #### 99269, 54739, 53637, 78530, 74676, 12129, 59080 ####[address] Vital Signs Date TimeVital SignValuePerforming CrbowboddQddcpfok73-98-2476 11:18-0400Body mass index (BMI) [Ratio]24.4 kg/m2MD Polina Quezada Work Phone: [facility]10-30-2024 11:18-0400 Inhaled oxygen flow rate2 L/minMD Polina Quezada Work Phone: [phone]10-30-2024 10:58-0400 Body roqwrm306.88 cmMD Polina Quezada Work Phone: [phone]10-30-2024 10:58-0400 Body .64 kgMD Polina Quezada Work Phone: [phone]10-30-2024 10:58-0400 Diastolic blood fipzgpmc68 mm[Hg]MD Polina Quezada Work Phone: [phone]95[facility]10-30-2024 10:58-0400 Heart rate87 /minMD Polina Quezada Work Phone: [phone]10-30-2024 10:58-0400 SaO2% (BldA) [Mass fraction]91 %MD Polina Quezada Work Phone: [phone]10-30-2024 10:58-0400 Systolic blood wdprsmox251 mm[Hg]MD Polina Quezada Work Phone: [phone]07-30-2024 10:58-0400 Body recavv443.88 cmLouis Stokes [facility] Center07-30-2024 10:58-0400Body mass index (BMI) [Ratio]21.7 kg/r2YsqopqbukLouis [facility] Center07-30-2024 10:58-0400Body wmwcid26.57 kgLouis Stokes [facility] Center07-30-2024 10:58-0400Diastolic blood wvorspio18 mm[Hg][facility] 01-02-2024 10:58-0400Heart rate97 /[facility] 01-02-2024 10:58-0400Systolic blood teeyxucc886 mm[Hg][facility]04-23-2024 14:07-0400Body jsqaia184.88 cmLouis Stokes [facility] Center04-23-2024 14:07-0400Body mass index (BMI) [Ratio]20.7 kg/p8GlymqcinjLouis Stokes [facility] Center04-23-2024 14:07-0400Body blaacz97.56 kgLouis [facility]04-23-2024 14:07-0400Diastolic blood xhjxoism70 mm[Hg] [facility]04-23-2024 14:07-0400Heart rate89 /minLouis [facility]04[facility]23-2024 14:07-8826StC6% (BldA) [Mass fraction]97 % [facility]04-23-2024 14:07-0400Systolic blood guiaefyk009 mm[Hg][facility]03-04-2024 16:53-0045MsY4% (BldA) [Mass fraction]100 %[facility] Private HospitalComment on above:Performed By: #### ZAC CMP, [id number] #### [facility] ([id number]) [address], [address] [place], [place] [id number] 09:57-9938CfZ5% (BldA) [Mass fraction]99 %[facility] Private HospitalComment on above:Performed By: #### ZAC, CMP, [id number] #### [facility] ([id number]) [address], [address] [id number] 14:00-0400Body ygdota711.88 cmPolina Quezada Other [place] Other 08-21-2023 14:00-0400Body mass index (BMI) [Ratio] 22.51 kg/j8RgsuysPolina Quezada Other [place] Other 08-21-2023 14:00-0400Body mqojhl44.3 kgPolina Quezada Other [place] Other 08-21-2023 14:00-0400Diastolic blood mcghkirf46 mm[Hg] Polina Pilar Other [employer] Other 08-21-2023 14:00-0578KbA5% (BldA) [Mass fraction]86 % Polina Quezada Other [employer] Other 08-21-2023 14:00-0400Systolic blood mm[Hg] Polina Pilar Other [place] Other Encounters Encounter DateEncounter TypeCare ProviderFacilityStart: 93-15-0719uaovryafnj POL[facility] PPGStart: 04-09-2024 End: 08-86-3320Sytijfy encounter procedureMD Polina Pilar Work Phone: [facility] [address] Work Phone: Start: 04-09-2024 End: 71-46-7155ryteqcfjmfAW Polina Esteban Pilar Work Phone: [facility] Work Phone: Start: 52-05-6792Kpc-patient / Non-visitMD Polina Quezada Work Phone: [facility] Work Phone: Start: 04-03-2024 End: 87-29-6867mcqpmmsslyHT Polina Quezada Work Phone: [facility] Work Phone: Start: 04-03-2024 End: 17-55-3936Tfuotwp encounter procedureMD Polina Quezada Work Phone: [facility] Work Phone: Start: 03-13-2024 End: 28-85-6539Gdvkjef encounter procedureMD Polina Quezada Work Phone: [facility] [address] Work Phone: Start: 03-13-2024 End: 30-07-2095gdymnqzsxuJU Marcia E Braun Work Phone: [facility] Work Phone: Start: 01-02-2024 End: 30-02-9395wiufedjvvwHnhioirnmTuscarawas Hospital Work Phone: Start: 01-02-2024 End: 64-55-0751Pxtjyft encounter procedureC[facility] Work Phone: Start: 09-26-2023 End: 63-80-2904bkkgaduyczGoosenbzwTuscarawas Hospital Work Phone: Start: 09-26-2023 End: 31-04-3497Mtizyqk encounter procedureC[facility] Work Phone: Start: 08-24-2023 End: 87-78-0336fzheyokpxiRXQJO TANKSt. Albans HospitalMedica Coffeyville HospitalStart: 08-14-2023 End: 11-01-0932dkwrwxkmbqMFPYYZ E BRAUNProMedica Coffeyville HospitalStart: 08-12-2023 End: 16-83-7173Iguenuplus and management of inpatientSEAN ROMANA CHRISSProNewark Hospitalca Coffeyville HospitalStart: 08-08-2023 End: 27-29-3855xmbnybgsdlASLWUOS M ASIFProMedica Coffeyville HospitalStart: 08-08-2023 End: 90-80-4224Drpmtsmjvi and management of inpatientANGELA PETEDENProMedica Jones HospitalStart: 08-07-2023 End: 46-65-1005Kspzasegmc and management of inpatientRACHEL M RICKIE SARKARProMedica Coffeyville HospitalStart: 08-07-2023 End: 70-99-1534Zzbhjfuuvi and management of inpatientJASON TANKProMedica Jones HospitalStart: 08-07-2023 End: 14-17-6087Xiilpokhho and management of inpatientRONALEXANDRIA LKAESt. Albans HospitalMedica Coffeyville HospitalStart: 08-06-2023 End: 80-82-5681Pfnicvvxgs and management of inpatientSTEPHANIE L NINOELKA [facility] HospitalStart: 08-06-2023 End: 88-88-5523Yfgylvvseg and management of inpatientJAGRUTI N SHAHProMedica Coffeyville HospitalStart: 08-05-2023 End: 00-01-2556Zrvrmqjflq and management of inpatientDARIN D NYEProMedica [place] HospitalStart: 08-04-2023 End: 07-64-6281Dfxtszqjz department patient visitADAM J. RETTIGProNewark Hospitalca [place] HospitalStart: 08-04-2023 End: 38-08-2119Jqelvpxpjf and management of inpatientADAM J. RETTIGProMckitrick Hospital HospitalStart: 07-20-2023 End: 75-38-7440xtesjyuszyWO PCP NO PCPProMckitrick Hospital HospitalStart: 07-19-2023 End: 94-10-6549doheoulirvJSLRDQ B BERRYKettering Health – So[facility] Center HospitalStart: 06-09-2023 End: 35-07-7339vupjuzfejwHQZ IN SYSTEM REF PROVProMckitrick Hospital HospitalStart: 06-08-2023 End: 93-40-2565zttptxabhjHHQVATKX N MESSERProMckitrick Hospital HospitalStart: 03-27-2023 End: 64-52-4650Dyxaziowht and management of inpatientRATIKA DOGRAMercy [facility] Oaklandtart: 03-23-2023 End: 50-67-3374fqqiktxqqoFywhuj Braun Other [place] Other Start: 75-27-6115Jaqzpzavf encounterPolina QuezadaLakeHealth TriPoint Medical Centertart: 03-21-2023 End: 39-99-8980Wjfoljfqqb and management of inpatientCHRISTOPHER D MARIKACristiananathan Gray HospitalStart: 02-02-2023 End: 20-96-4780rklmtbkjkqUjudyg Braun Other [employer] Other Start: 54-66-6975Kfcvssizt encounterMarcia BraunFPG [facility] ClinicStart: 01-23-2023 End: 27-32-4332kbyjzlmwmlIpqprd Braun Other [place] [employer] Other Start: 61-44-8259Toralo outpatient visit 25 minutes Polina Rodgers [facility] Centertart: 40-25-5694aouzpbytryVU POLINA Esteban PILAR Facility:Q6Bcsng: 04-29-2021 End: 32-44-1312buwlemuzepZM GUILLAUME Zavaleta NACHOFacility:S4Viysa: 05-21-2018 End: 70-19-1301Vueuctoqrl and management of inpatientMUHAMMAD ALIFacility:[facility] Start: 05-18-2018 End: 54-59-1800Oyieljz encounter procedureDEFAULT PHYSICIANFacility:[facility] Procedures DateProcedureProcedure DetailPerforming ClinicianStart: 80-28-2730CARXNJV OF CARDIAC SAMPL \T\ PRESSURE, R HEART, PERC APPROACHEHAB A ELTAHAWYStart: 60-40-6863JBBHBBUTCLNNPQK OF HEPATOBILIARY SYSTEM, ALLMUHAMMAD ALIRemoval of suturePolina Quezada Other Screening for malignant neoplasm of prostatePolina Quezada Other Plan of Treatment DateCare ActivityDetailAuthorStart: 04-56-6579Reiauik [facility] Work Phone: Start: 17-17-1691Eiocskivr complement CH50 level [facility] Hospitaltart: 21-70-3538EejbflczyMary Rutan Hospitaltart: 01-67-6011Ckrlbkv [facility] Work Phone: [phone] hour urine measurementLouis Stokes [facility] Medical CenterAlbumin [Mass/volume] in Serum or PlasmaLouis [facility] Albumin/Globulin ratioLouis Stokes [facility] Medical CenterAngiotensin converting enzyme [Enzymatic activity/volume] in Serum or [facility] HospitalComplement C3 [Mass/volume] in Serum or [facility] HospitalComplement C4 [Mass/volume] in Serum or [facility] HospitalElectrophoresis: zobto-5-bngzhwwgDgzumbtgi [facility] Electrophoresis: kspex-8-mbjqificFsxullduxLouis [facility] Electrophoresis: beta-globulinLouis [facility] Medical CenterElectrophoresis: gamma globulinLouis [facility] Medical CenterGlobulin [Mass/volume] in Serum [facility] CenterHomogenous nuclear Ab pattern [Titer] in Serum [facility] CenterIgA [Mass/volume] in Serum or [facility] HospitalIgG [Mass/volume] in Serum or [facility] HospitalIgM [Mass/volume] in Serum or [facility] HospitalImmunofixation for UrineLouis Stokes [facility] Medical CenterKappa light chains.free [Mass/volume] in [facility] CampusKapp light chains.free/Lambda light chains.free [Mass Ratio] in [facility] CampusLambda light chains.free [Mass/volume] in Serum or [facility] HospitalMeasurement of monoclonal protein concentrationLouis Stokes [facility] Medical CenterNuclear Ab [Titer] in [facility] CampusPatient referralRegency Hospital [facility] Work Phone: Protein [Mass/volume] in Serum or [facility] HospitalProtein [Mass/volume] in UrineMary Rutan Hospitalerum immunofixationMary Rutan Hospitaljogrens syndrome-A extractable nuclear Ab [Units/volume] in [facility] Sjogrens syndrome-B extractable nuclear Ab [Units/volume] in [facility] Immunizations Immunization DateImmunizationNotesCare ZtppcacjSmmldnyz44-89-9575VMGMQ-42 Vaccine Pfizer - Documentation Purposes OnlyPolina Quezada Other [facility]11-18-2019influenza virus vaccine, split virus (incl. purified surface antigen)Polina Quezada Other [place] Other 056411-02-9646cnjkegmrn virus vaccine, unspecified formulationLouis [facility]11-18-2019pneumococcal polysaccharide vaccine, 23 valentPolina Quezada Other [facility] Payers DatePayer CategoryPayerPolicy [id number]-[id number] 2.16.840.1.935610.3.57[id number] 2.16.840.1.421091.3.57[id number] 2.16.840.1.131000.3.57[id number] 2.16.840.1.696910.3.57[id number] 2.16.840.1.007657.3.57[id number] 2.16.840.1.799978.3.579.[id number] 2.16.840.1.012106.3.57[id number] 2.16.840.1.224329.3.57[id number] 2.16.840.1.895714.3.57[id number] 2.16.840.1.534961.3.57[id number] 2.16.840.1.737934.3.57[id number] 2.16.840.1.728258.3.57[id number] 2.16.840.1.786826.3.57[id number] 2.16.840.1.645216.3.579.2.[id number] 2.16.840.1.298951.3.579.2.89[id number] 2.16840.1.732508.3.57[id number] 2.16840.1.572710.3.579.2.1[id number] 2.16840.1.441063.3.579.2.973991-46-8530Nkvxzmt77296959 2.16840.1.238559.3.579.2.804758-63-1018Bxqvvov45860144 2.16840.1.857774.3.579.2.447015-25-9186Pyvjfqp77590539 2.16840.1.063202.3.579.2.[id number] 2.16840.1.168696.3.579.2.[id number] 2.840.1.253618.3.579.2.155303-69-1192Kcgmqmh15101875 2.840.1.387124.3.579.2.322565-48-5644Uybynvj82119167 2.16840.1.118268.3.579.2.[id number] 2.16840.1.608965.3.579.2.[id number] 2.16840.1.565640.3.579.2.432839-72-1650Bstttge62311492 2.16.840.1.139324.3.579.2.781829-03-7546Ukljmab63820641 2.16.840.1.582391.3.579.2.289401-87-7757Yuhcyxp08598636 2.16.840.1.025588.3.579.2.921270-86-7946Qmdysox21145408 2..840.1.684739.3.579.2.684027-47-8375Lcypodp63386850 2..840.1.292453.3.579.2.091543-91-1181Solmaqb42381796 2.16.840.1.851133.3.579.2.173162-25-4651Yonzmsc20120749 2.840.1.756467.3.579.2.222752-44-0274Sxhgkdh552973778 2.840.1.834117.3.579.2.220496-23-8834Qpahgth796848752 2.840.1.637696.3.579.2.1286Medicare4UU1EN8KY03MedicareMEBR6CVK 2.840.[id number] 2.840.1.758125.3.579.2.531Unknown [id number] 2.840.1.499788.3.579.2.531 Social History DateTypeDetailFacilityUnknown if ever smokedNoLex Machina Other Sex Assigned At BirthSex Assigned At BirthNoAdfaces Other Start: 09-26-2023 End: 28-16-6596Pizgszt smoking status NHISEx-smoker (finding)[facility] Hospitaltart: 35-12-0886Iwk Assigned At [facility] Evaluation note 01-23-2023 Note Date & PumaEojfKfnapehx46-02-0751 Evaluation note* Encounter Date Diagnosis Assessment Notes Treatment Notes Treatment Clinical Notes Jan, Chronic obstructive pulmonary disease, unspecified [...] verbalizes understanding and agrees to treatment plan. Jan,Weakness (ICD-10 - R53.1)Assess labs. Multiple possible causes. Encouraged healthy diet, exercise, quitting smoking. Jan,Weight loss (ICD-10 - R63.4)as above Jan,Essential (primary) hypertension (ICD-10 - I10)BP low. D/c med. Assess for dehydration w labs. Sent directly to hospital for tests. [facility] [employer] Other Evaluation note Note Date & TypeNoteFacilityEvaluation noteNo InformationNortGeisinger St. Luke's Hospital [employer] Other Evaluation note Note Date & TypeNoteFacilityEvaluation note* Diagnosis Onset Date Resolution Status Chronic anemia acute [facility] Work Phone: Evaluation note Note Date & TypeNoteFacilityEvaluation noteNo assessment information available [facility] Work Phone: Evaluation note Note Date & TypeNoteFacilityEvaluation note* Diagnosis Onset Date Resolution Status Chronic obstructive pulmonary disease acuteHemolytic anemia associated with chronic inflammatory diseaseMedina Hospital Work Phone: History general Narrative - Reported Note Date & TypeNoteFacilityHistory general Narrative - Reported* Type Description Date Medical History Essential (primary) hypertension Medical HistoryChronic obstructive pulmonary diseaseMedical HistorySyncope and collapseSurgical Historyright bicep ylsdvdeotswi3365Fezybimo HistorySUBDURAL AVINMTBD4817Rlhhqkiy HistoryFLUID AROUND HEART - DMNRXSHAT8581Qwmmjmdp History HERNIATED DISC [id number] HistorySEE SURGICAL HX [place] Other Summary Purpose Family History No Family History Records Found Relationship Condition Age at Onset Recorded Date/T tamiko father Unknown Not SpecifiedDeceasedUnknown Relationship Condition Age at Onset Recorded Date/T tamiko father Unknown motherDeceasedUnknown Advance Directives No Advanced Directives Records Found Advance Directive Response Recorded Date/ Time Advance Directives No September 25, 1:56pm Advance Directive Response Recorded Date/ Time Advance Directives No September 25, 12:56pm Hospital Course Note MR[facility] [id number] Admitted: 05/21/2018 Discharged: [...] protein calorie malnutrition.10. History of cardiac tamponade 2016.11. Hypovolemic hyponatremia.HOSPITAL COURSE: The patient is a 67-year-old male, significant pastmedical history as above, who presented from [place] per the Cardiologyrecommendati (more content not included)... Note Patient: DAMI ALCALA RN: [birth year] Age: 69 years Sex: Male : 1950 Associated Diagnoses: None Author: Miles Daomn JR, DO Postoperative Information Post Operative Note: Post Anesthesia Care Unit. Anesthetic utilized: General, Monitored anesthesia care. Health Status Allergies: Allergic Reactions (Selected) No Known Allergies No Known Medication Allergies Current medications: (Selected) Prescriptions Prescribed [place] 325 mg-5 mg oral tablet: 1 tab(s), [...] included)... Procedure Findings Note Patient: DAMI ALCALA Max RN: [birth year] Age: 69 years Sex: Male : 1950 Associated Diagnoses: None Author: Miles Damon JR, DO Postoperative Information Post Operative Note: Post Anesthesia Care Unit. Anesthetic utilized: General, Monitored anesthesia care. Health Status Allergies: Allergic Reactions (Selected) No Known Allergies No Known Medication Allergies Current medications: (Selected) Prescriptions Prescribed [place] 325 mg-5 mg oral tablet: 1 tab(s), Oral, q4hr for pain, 20 tab(s), Refill(s) 0, [id number], 178, cm, 07/02/19 15:51:00 EST, Height/Length [...] deficiency 3 month f/u CC Adult Risk StratificationReason for VisitChronic obstructive pulmonary disease Hemolytic anemia associated with chronic inflammatory disease Additional Source Comments (unrecognized sect ion and content) No Status Records FoundNo Status Records FoundNo Status Records FoundNo Status Records FoundNo Status Records FoundNo Status Records FoundNo Status Records FoundNo Status Records FoundNo Status Records Found INFORMATION SOURCE (unrecogn ized section and content) DATE CREATED AUTHOR 06/13/2018 [facility] DATE CREATED AUTHOR AUTHOR'S ORGANIZ ATION 01/13/2020 [facility] DATE CREATED AUTHOR AUTHOR'S ORGANIZ ATION 05/10/2021 [facility] DATE CREATED AUTHOR AUTHOR'S ORGANIZ ATION 03/27/2023 [facility] DATE CREATED AUTHOR AUTHOR'S ORGANIZ ATION 08/10/2023 [facility] DATE CREATED AUTHOR AUTHOR'S ORGANIZ ATION 08/19/2023 [facility] DATE CREATED AUTHOR AUTHOR'S ORGANIZ ATION 08/27/2023 [place] DATE CREATED AUTHOR AUTHOR'S ORGANIZ ATION 04/21/2024 [facility] DATE CREATED AUTHOR AUTHOR'S ORGANIZ ATION 10/17/2024 [facility] PPG REASON FOR VISIT (unrecogniz ed section and content) RefillCHECK [facility] Care Teams (unrecognized sec tion and [...] Active Start: March 13, 2024 End: March 13ashwini Fragoso MDAttfirsthealth montgomery memorial hospital ProviderActiveStart: March 13, 2024 End: March 13, 2024 [...] Active Start: April 09, 2024 End: April 09Roge Johnson ProviderActiveStart: April 09, 2024 End: April 09, 2024 [...] BE BASED ON THE PRIMARY CLINICAL RECORDS. [employer] [facility]. provides no warranty or guarantee of the accuracy or completeness of information in this document.
--- OUTSIDE RECORDS SUMMARY | 2025-05-03 08:19 | XMS_ITS | Patient Health Record ---
Author Organization The [facility] in [place] Address [address] [place] [address] Care Team Providers Care Information Technology Associate Name Role Phone Daniella Warner MD Primary Care Provider Unavailab Isaiah Mata Unavailable [phone] Clifton Spaulding Unavailable [phone] Allergies No Known Allergies Results Component Value Reference Range Notes CREATININE Reviewed date:10/10/2024 01:22:46 PM Interpretation: Performing Lab: Notes/Report: CT Chest w/contrast * Reviewed date:10/10/2024 01:20:30 PM Interpretation: Performing Lab: Notes/Report: CBC AUTO DIFF (Not yet revie wed by provider) Interpretation: Performing Lab: Notes/Report: [facility] , White Blood Count 9.1 4.0-11.0 10 3/uL Red Blood Count3.734.70-6.10 10 6/uLHemoglobin9.014.0-18.0 g/aYYnwohhoasu52.2 42.0-54.0 %Mean Corpuscular Pvrbvb46.680.0-94.0 fLMean Corpuscular Hemoglobin 24.125.9-34.0 pgMean Corpuscular HGB Conc28.829.9-35.2 g/dL1+ Hypochromia PresentRed Cell Distribution Width19.311.0-15.0 %Platelet Ihith894546-241 10 3/uLMean Platelet Gybcoi26.89.5-13.5 fLNeutrophils Percent Auto78.143.0-75.0 % Lymphocytes Percent Auto10.120.5-60.0 %Monocytes Percent Auto7.61.7-12.0 % Eosinophils Percent Auto2.70.9-7.0 %Basophils Percent Auto1.00.2-2.0 %Immature Granulocytes Pct Auto0.50.0-0.5 %Neutrophils Absolute Auto7.11.4-6.5 10 3/uL Lymphocytes Absolute Auto0.91.2-3.8 10 3/uLMonocytes Absolute Auto0.70.3-0.8 10 3/uLEosinophils Absolute Auto0.30.0-0.7 10 3/uLBasophils Absolute Auto0.10.0-0.1 10 3/uLImmature Granulocytes Abs Auto0.050.00-0.03 10 3/uLPerforming Lab:see noteML - [facility] LBCRP (Not yet reviewed by provider) Interpretation: Performing Lab: Notes/Report: [facility] ,C Reactive Protein2.07<=0.50 mg/dLPerforming Lab:see noteML - [facility] LBIRON AND TIBC (Not yet reviewed by provider) Interpretation: Performing Lab: Notes/Report: [facility] ,Iron25.065.0-175.0 ug/dLTotal Iron Binding Luzeudqu434.0250.0-450.0 ug/dL Percent Iron Saturation7.7Performing Lab:see noteML - [facility] LB PROF 14(COMP METB) (Not yet reviewed by provider) Interpretation: Performing Lab: Notes/Report: [facility] ,Fmzorb260482-783 mmol/LPotassium3.73.5-5.1 mmol/ZWrbbycui09813-078 mmol/LCarbon Itilfsl94.521.0-32.0 mmol/LAnion Gap9.2Kkzhded93045-411 mg/dLBlood Urea Nitrogen 9.07.0-18.0 mg/dLCreatinine1.210.70-1.30 mg/dLEstimated GFR ( No>60 >=60 mL/min/1.73m 2Estimated GFR (Non- Ame59>=60 mL/min/1.73m 2BUN Creatinine Ratio7.7Ebvsezl4.38.5-10.1 mg/dLBilirubin Total0.20.2-1.0 mg/dL Aspartate Amino Ofuxshyfgqz3899-77 U/LAlanine Qaclfvbwgmpjndfj6222-02 U/L Alkaline Yftayzjslkd47343-245 U/LTotal Protein7.66.4-8.2 g/dLAlbumin Level3.1 3.4-5.0 g/dLGlobulin4.5Albumin Globulin Ratio0.7Performing Lab:see noteML - [facility] LBReticulocyte Pct Auto (Not yet reviewed by provider) Interpretation: Performing Lab: Notes/Report: [facility] ,Reticulocyte Pct Auto2.060.60-3.10 %Performing Lab:see noteML - [facility] LBCT CHEST W CON (Not yet reviewed by provider) Interpretation: Performing Lab: Notes/Report: Source Facility: [place] [address] [place] [address] CT Scan Report Signed Patient: DAMI MERRITT MR#: [id number] : 1950 Acct:[id number] Age/Sex: 74 / M ADM Date: 08/02/24 Loc: CT Attending Dr: Isaiah Burrows M.D. Ordering Physician: Isaiah Burrows M.D. Date of Service: 08/02/24 Procedure(s): CT chest w con Accession Number(s): [id number] cc: Physician,Non-Staff [place] [facility] [place] [address] Patient Name: DAMI MERRITT MRN: [id number] date: 1950 Sex: M Assigned Patient Location: CT Current Patient Location: CT Accession/Order Number: [id number] Exam Date: 08/02/2024 10:52 Report Date: 08/02/2024 11:23 At the request of: ISAIAH BURROWS MD Procedure: CT chest w con CT CHEST, ABDOMEN AND PELVIS WITH CONTRAST CLINICAL DATA: Chronic iron deficiency anemia COMPARISON: CT chest 05/30/2019 Spiral images were obtained through the chest, abdomen and pelvis following oral and 100 mL of Omnipaque 300. Images of the chest were reviewed using both narrow and wide window settings. This CT exam was performed using one or more following dose reduction techniques: Automated exposure control, adjustment of the mA and/or kV according to patient size, or use of iterative reconstruction technique. The heart is top normal in size. No pericardial effusion is seen. There is minor coronary artery disease. No aortic aneurysm or dissection is seen. There is atherosclerotic plaque at the aortic arch. There is an aberrant right subclavian artery. There are few tiny nonpathologic mediastinal and hilar lymph nodes. There are calcified hilar granulomas. There is obstructive lung disease. There is a developing cluster of spiculated nodular densities within the right upper lobe measuring up to a centimeter in size. There is still an oval 8 mm nodular density within the right lower lobe abutting the major fissure. A 9 mm irregular nodular symmetry is seen within the posterior left upper lobe (axial image 41). Minor interstitial thickening as well as areas of atelectasis or scarring are noted at both lung bases. No pleural effusion or pneumothorax is identified. There is minor degenerative change at the spine. There is a rounded sclerotic focus within the lower thoracic vertebral body which was also present previously. No calcified gallstones are identified. No intrahepatic masses are seen. The spleen shows no acute findings. There are cystic areas at the neck and tail pancreas measuring up to 16 mm in size. No adrenal nodularity is seen. The renal nephrograms are symmetric. There are multiple bilateral renal cysts, the largest on the right measuring 4.6 cm and the left 4.3 cm in size. There is also an exophytic hypodensity at the lower pole the right kidney measuring 2.5 cm in size with Hounsfield measurements higher than simple fluid. Its possible hemorrhagic. There is a small stone at the lower pole of the right kidney. No hydronephrosis is present. Atherosclerotic plaque involving the aorta, iliac and visceral arteries. There are few small nonpathologic lymph nodes. No ascites is seen. No dilated small bowel loops are visualized. There is mild stool along the colon. Dextroscoliotic curvature and degenerative changes are present at the spine. There are similar wedge deformity at L2, uncertain chronicity. Images through the pelvis show no dilated small bowel loops. No appendiceal inflammation is seen. There is stool at the distal colon. There are sigmoid diverticula, without associated active inflammation. The urinary bladder shows no obvious abnormalities though there is some streak artifact from patient's right hip prosthesis. No ascites is identified. There is additional atherosclerotic disease. There is degenerative change at the SI joints left hip. There is a subcutaneous fluid collection in the right buttock region measuring 6 to [address]/CT chest w con IMPRESSION: OBSTRUCTIVE LUNG DISEASE. BILATERAL PULMONARY NODULARITY. THERE ARE A COUPLE AREAS WHICH WERE SEEN PREVIOUSLY THOUGH THERE IS ALSO A CLUSTER OF IRREGULAR NODULES AT THE RIGHT UPPER LOBE. FOLLOW-UP WILL BE NEEDED TO EXCLUDE ANY POSSIBILITY OF NEOPLASM. ATELECTASIS AND/OR SCARRING. PANCREATIC CYSTIC LESIONS. THERE ARE NO PRIORS FOR CORRELATION. MULTIPLE RENAL HYPODENSITIES, LIKELY CYSTS THOUGH THERE IS ONE WHICH IS INDETERMINANT AT THE LOWER POLE OF THE RIGHT KIDNEY. FOLLOW-UP ULTRASOUND COULD BE CONSIDERED. ATHEROSCLEROTIC DISEASE. DIVERTICULOSIS. RIGHT BUTTOCK SUBCUTANEOUS FLUID COLLECTION. PATIENT DOES HAVE A RIGHT HIP PROSTHESIS IS UNCERTAIN IF THIS IS RELATED TO SURGERY. CORRELATION IS SUGGESTED. Impression dictated by: Madeleine Ordonez M.D.08/02/2024 11:23 AM Dictation Location: [place] [address] Electronically authenticated by: [id number] Y Date: 08/02/2024 11:23 Dictated By: Madeleine Ordonez M.D. Signed By: 08/02/24 1126 DD/ 1123 TD/TT: Flume Ride Operator:CT abdomen pelvis w con (Not yet reviewed by provider) Interpretation: Performing Lab: Notes/Report: Source Facility: [place] [address] [place] [address] CT Scan Report Signed Patient: DAMI MERRITT MR#: [id number] : 1950 Acct:[id number] Age/Sex: 74 / M ADM Date: 08/02/24 Loc: CT Attending Dr: Isaiah Burrows M.D. Ordering Physician: Isaiah Burrows M.D. Date of Service: 08/02/24 Procedure(s): CT abdomen pelvis w con Accession Number(s): [id number] cc: Physician,Non-Staff [place] [facility] [address] [address] Patient Name: DAMI MERRITT MRN: [id number] date: 1950 Sex: M Assigned Patient Location: CT Current Patient Location: CT Accession/Order Number: [id number] Exam Date: 08/02/2024 10:52 Report Date: 08/02/2024 11:23 At the request of: ISAIAH BURROWS MD Procedure: CT chest w con CT CHEST, ABDOMEN AND PELVIS WITH CONTRAST CLINICAL DATA: Chronic iron deficiency anemia COMPARISON: CT chest 05/30/2019 Spiral images were obtained through the chest, abdomen and pelvis following oral and 100 mL of Omnipaque 300. Images of the chest were reviewed using both narrow and wide window settings. This CT exam was performed using one or more following dose reduction techniques: Automated exposure control, adjustment of the mA and/or kV according to patient size, or use of iterative reconstruction technique. The heart is top normal in size. No pericardial effusion is seen. There is minor coronary artery disease. No aortic aneurysm or dissection is seen. There is atherosclerotic plaque at the aortic arch. There is an aberrant right subclavian artery. There are few tiny nonpathologic mediastinal and hilar lymph nodes. There are calcified hilar granulomas. There is obstructive lung disease. There is a developing cluster of spiculated nodular densities within the right upper lobe measuring up to a centimeter in size. There is still an oval 8 mm nodular density within the right lower lobe abutting the major fissure. A 9 mm irregular nodular symmetry is seen within the posterior left upper lobe (axial image 41). Minor interstitial thickening as well as areas of atelectasis or scarring are noted at both lung bases. No pleural effusion or pneumothorax is identified. There is minor degenerative change at the spine. There is a rounded sclerotic focus within the lower thoracic vertebral body which was also present previously. No calcified gallstones are identified. No intrahepatic masses are seen. The spleen shows no acute findings. There are cystic areas at the neck and tail pancreas measuring up to 16 mm in size. No adrenal nodularity is seen. The renal nephrograms are symmetric. There are multiple bilateral renal cysts, the largest on the right measuring 4.6 cm and the left 4.3 cm in size. There is also an exophytic hypodensity at the lower pole the right kidney measuring 2.5 cm in size with Hounsfield measurements higher than simple fluid. Its possible hemorrhagic. There is a small stone at the lower pole of the right kidney. No hydronephrosis is present. Atherosclerotic plaque involving the aorta, iliac and visceral arteries. There are few small nonpathologic lymph nodes. No ascites is seen. No dilated small bowel loops are visualized. There is mild stool along the colon. Dextroscoliotic curvature and degenerative changes are present at the spine. There are similar wedge deformity at L2, uncertain chronicity. Images through the pelvis show no dilated small bowel loops. No appendiceal inflammation is seen. There is stool at the distal colon. There are sigmoid diverticula, without associated active inflammation. The urinary bladder shows no obvious abnormalities though there is some streak artifact from patient's right hip prosthesis. No ascites is identified. There is additional atherosclerotic disease. There is degenerative change at the SI joints left hip. There is a subcutaneous fluid collection in the right buttock region measuring 6 to [address]/CT abdomen pelvis w con IMPRESSION: OBSTRUCTIVE LUNG DISEASE. BILATERAL PULMONARY NODULARITY. THERE ARE A COUPLE AREAS WHICH WERE SEEN PREVIOUSLY THOUGH THERE IS ALSO A CLUSTER OF IRREGULAR NODULES AT THE RIGHT UPPER LOBE. FOLLOW-UP WILL BE NEEDED TO EXCLUDE ANY POSSIBILITY OF NEOPLASM. ATELECTASIS AND/OR SCARRING. PANCREATIC CYSTIC LESIONS. THERE ARE NO PRIORS FOR CORRELATION. MULTIPLE RENAL HYPODENSITIES, LIKELY CYSTS THOUGH THERE IS ONE WHICH IS INDETERMINANT AT THE LOWER POLE OF THE RIGHT KIDNEY. FOLLOW-UP ULTRASOUND COULD BE CONSIDERED. ATHEROSCLEROTIC DISEASE. DIVERTICULOSIS. RIGHT BUTTOCK SUBCUTANEOUS FLUID COLLECTION. PATIENT DOES HAVE A RIGHT HIP PROSTHESIS IS UNCERTAIN IF THIS IS RELATED TO SURGERY. CORRELATION IS SUGGESTED. Impression dictated by: Madeleine Ordonez M.D.08/02/2024 11:23 AM Dictation Location: [place] [address] Electronically authenticated by: [id number] Y Date: 08/02/2024 11:23 Dictated By: Madeleine Ordonez M.D. Signed By: 08/02/24 1125 DD/ 1123 TD/TT: Flume Ride Operator:CBC AUTO DIFF (Not yet reviewed by provider) Interpretation: Performing Lab: Notes/Report: [facility] ,White Blood Count9.74.0-11.0 10 3/uLRed Blood Count3.944.70-6.10 10 6/uL Guopmpdfap42.514.0-18.0 g/cMGgeelovslb81.542.0-54.0 %Mean Corpuscular Zbcvgp67.6 80.0-94.0 fLMean Corpuscular Oserxsvlkb44.625.9-34.0 pgMean Corpuscular HGB Conc 30.429.9-35.2 g/dLRed Cell Distribution Width18.711.0-15.0 %Platelet Txweo007 150-450 10 3/uLMean Platelet Ugpxze17.99.5-13.5 fLNeutrophils Percent Auto81.2 43.0-75.0 %Lymphocytes Percent Auto8.520.5-60.0 %Monocytes Percent Auto6.71.7- 12.0 %Eosinophils Percent Auto2.40.9-7.0 %Basophils Percent Auto0.80.2-2.0 % Immature Granulocytes Pct Auto0.40.0-0.5 %Neutrophils Absolute Auto7.81.4-6.5 10 3/uLLymphocytes Absolute Auto0.81.2-3.8 10 3/uLMonocytes Absolute Auto0.70.3-0.8 10 3/uLEosinophils Absolute Auto0.20.0-0.7 10 3/uLBasophils Absolute Auto0.10.0- 0.1 10 3/uLImmature Granulocytes Abs Auto0.040.00-0.03 10 3/uLPerforming Lab:see noteML - [facility] LBCRP (Not yet reviewed by provider) Interpretation: Performing Lab: Notes/Report: [facility] ,C Reactive Protein2.06<=0.50 mg/dLPerforming Lab:see noteML - [facility] LBIRON AND TIBC (Not yet reviewed by provider) Interpretation: Performing Lab: Notes/Report: [facility] ,Iron32.065.0-175.0 ug/dLTotal Iron Binding Mjgnpgpx434.0250.0-450.0 ug/dL Percent Iron Bwznxzsobu44.9Performing Lab:see noteML - [facility] LB PROF CHEM 8 (BAS METB) (Not yet reviewed by provider) Interpretation: Performing Lab: Notes/Report: [facility] ,Icpoqg719843-282 mmol/LPotassium4.23.5-5.1 mmol/GEckbuzzj7004-212 mmol/LCarbon Tdewbdo97.421.0-32.0 mmol/LAnion Gap10.3Cdpawqa68013-579 mg/dLBlood Urea Fffsctbd97.07.0-18.0 mg/dLCreatinine1.150.70-1.30 mg/dLEstimated GFR ( No>60>=60 mL/min/1.73m 2Estimated GFR (Non- Rosario>60>=60 mL/min/1.73m 2BUN Creatinine Ratio12.8Lfinwfj1.38.5-10.1 mg/dLPerforming Lab:see note - [facility] LBErythrocyte Sedimentation Rate (Not yet reviewed by provider) Interpretation: Performing Lab: Notes/Report: [facility] ,Erythrocyte Sedimentation Rate89<=20 mm/hrPerforming Lab:see note - [facility] LBRT pulmonary function test Reviewed date:08/07/2024 03:26:55 PM Interpretation: Performing Lab: Notes/Report: Source Facility: [facility] [place] [address] Respiratory Report Signed Patient: DAMI MERRITT MR#: [id number] : 1950 Acct:[id number] Age/Sex: 74 / M ADM Date: 08/01/24 Loc: CARD Attending Dr: Clifton Spaulding D.O. Ordering Physician: Clifton Spaulding D.O. Date of Service: 08/01/24 Procedure(s): RT pulmonary function test Accession Number(s): [id number] cc: [facility] Test Date: 2024-08-01 Pat Name: DAMI MERRITT Department: Room: - Gender: Male Test Worker: Sam Barrow RRT : 1950 Requested By: Clifton Spaluding Order Number: [id number] Vincent MD: Clifton Spaulding Interpretive Statements Pulmonary function testing was completed according to ATS criteria. Findings were considered accurate and reproducible, with exception of FVC which did not meet ATS standards. Both pre- and post-bronchodilator values utilized for spirometry. Spirometry (based on pre-bronchodilator values): -FEV1/FVC: Reduced @ 43% -FEV1: Severely reduced @ 38% -FVC: Reduced @ 64% -There is a positive bronchodilator response in FVC. Lung volumes by plethysmography (based on pre-bronchodilator values): -RV: Increased @ 157% -TLC: Normal @ 94% Diffusion capacity: -DLCO: Severe reduction @ 45% when corrected for Hb 9g/dL Comparison from 06/20/2018: -Slight improvement from FEV1 30% and FVC 54% -Slight improvement in RV from 157%, no significant change in TLC from 104% -Slight improvement in DLCO from 40% Impressions: -Severe obstructive pattern on spirometry with a positive bronchodilator response. Increased RV suggests air trapping. Severe diffusion impairment. Mild anemia given Hb 9g/dL. Overall study is compatible with COPD with a bronchodilator response vs. asthma-COPD overlap. When compared with prior PFT 06/20/2028, there is slight improvement. Clinical correlation required. Electronically Signed On 08-07-2024 12:01:32 EST by Clifton Spaulding Dictated By: Clifton Spaulding D.O. Signed By: 08/07/24 1201 DD/ 1314 TD/TT: Flume Ride Operator:Vitamin B12 (Not yet reviewed by provider) Interpretation: Performing Lab: Notes/Report: [facility] ,Vitamin Q68088019-2842 pg/mL Performed at: [facility] Lab[address] [id number] Fax Machine Operator: Fareed Santos PhD, Phone: [phone] Performing Lab:see noteLC - [facility] LBErythrocyte Sedimentation Rate (Not yet reviewed by provider) Interpretation: Performing Lab: Notes/Report: [facility] ,Erythrocyte Sedimentation Rate94<=20 mm/hrPerforming Lab:see noteML - [facility] LBLDH (Not yet reviewed by provider) Interpretation: Performing Lab: Notes/Report: [facility] ,Lactate Dozjxootvfdlk93454-555 U/LPerforming Lab:see noteML - [facility] LBFERRITIN (Not yet reviewed by provider) Interpretation: Performing Lab: Notes/Report: [facility] ,Ltvjwjwd72.026.0-388.0 ng/mLPerforming Lab:[facility]Del[facility] UFJKHOX-4-XWWVNYUBMSH SCREENING SWAB Reviewed date:11/05/2024 07:25:33 AM Interpretation: Performing Lab: Notes/Report: Vitamin B12 (Not yet reviewed by provider) Interpretation: Performing Lab: Notes/Report: [facility] ,Vitamin O64809256-0903 pg/mL Performed at: [address] [id number] Fax Machine Operator: Fareed Santos PhD, Phone: [phone] Performing Lab:see [facility] LBFERRITIN (Not yet reviewed by provider) Interpretation: Performing Lab: Notes/Report: [facility] ,Mwiitgha879.026.0-388.0 ng/mLPerforming Lab:see [facility] LB Reason For Referral No Information Medications Medication SIG (Take, Route, Frequency, Duration) Notes Start Date End Date Status Calcium Citrate 950 (200 Ca) MG TAKE 1 T ABLET BY MOUTH TWICE A DAY Oral; Duration: 90 Days ActiveMidodrine HCl 10 MGTAKE 1 TABLET 3 TIMES A DAY, DO NOT GIVE LAST DOSE OF THE DAY AFTER 6PM OR WITH IN 4 HRS OF BEDTIMEOral; Duration: 30 DaysActive Aspirin Low Dose 81 MGTAKE 1 TABLET BY MOUTH EVERY DAY Oral; Duration: 90 Days ActiveAtorvastatin Calcium 20 MGTAKE 1 TABLET BY MOUTH EVERY DAY Oral; Duration: 90 DaysActiveTamsulosin HCl 0.4 MGOral; Duration: 90 DaysActiveTrelegy Ellipta 100-62.5-25 MCG/ACTInhalation; Duration: 30 DaysActiveOmeprazole 20 MGTAKE 1 CAPSULE BY MOUTH EVERY DAY Oral; Duration: 90 DaysActiveSertraline HCl 25 MG Oral; Duration: 90 DaysActiveAlbuterol Sulfate (2.5 MG/3ML) 0.083%Inhalation; Duration: 25 DaysActive Immunizations Vaccine Route Administration Date Status Comme nts Flu, Fluad (27521) 65 yrs+, single-dose syringe (3877-0579) Unknown 05/11/2021 Administered Pneumococcal (Pneumovax 23)Bvpeksg7902/08/20160138JislmodnnvgdKCII-YZG-3 (COVID 19 Pfizer 30mcg/0.3mL)Mexltnf5706/01/2021dministered Social History Tobacco Use: Social History Observation Description Date Details (start date - stop date) Former Smoker NA - NA Tobacco Control (Standard) Question Answer Notes Tobacco use: Former smoker How long has it been since you last smoked?1-5 yearsAdditional Findings: Tobacco qlp-ygquQm-ijei heavy cigarette smoker (40+/day) Problems Problem Type SNOMED Code ICD Code Onset Dates Problem Status W/U Status Risk Notes Problem Information temporarily unavailable Centr ilobular emphysema (J43.2) ActiveconfirmedProblemInformation temporarily unavailableChronic respiratory failure with hypoxia (J96.11)ActiveconfirmedProblemInformation temporarily unavailableLong term (current) use of inhaled steroids (Z79.51)Activeconfirmed ProblemInformation temporarily unavailableLoculated pleural effusion (J90)Active confirmedProblemInformation temporarily unavailableHilar lymphadenopathy (R59.0) ActiveconfirmedProblemInformation temporarily unavailableMultiple pulmonary nodules (R91.8)ActiveconfirmedProblemInformation temporarily unavailableHistory of tobacco abuse (Z87.891)ActiveconfirmedProblemInformation temporarily unavailablePulmonary arterial hypertension (I27.21)Activeconfirmed Vital Signs Heart Rate 82 /min 10/23/2024 Gnxkkdhuqti40.6 degrees Vmrquwklsi39/21/2025Respiratory Rate20 /min10/23/2024 Blood pressure utlwedhol64 mm Hg10/23/20242457Kxmamaac85 %10/23/20241881Mspkkg54.75 in 10/23/2024lood pressure vsypsbty472 mm Hg10/23/20244047Airesz436.0 lbs10/23/2024MI 31.38 kg/m210/23/2024 Procedures Procedure Date Ordered Date Performed Result Body Sit e PFT (62518, 91164, 53714) 07/09/2024 08/01/2024 N/A Pulmonary Dvkbvaukbphdst47/21/2025N/A Encounters Encounter Location Date Provider Diagnosis [facility]monary [facility] [address] [place] [address] 07/09/2024 Clifton Spaulding Centrilobular emphys verito J43.2 ; Hilar lymphadenopathy R59.0 ; Multiple pulmonary nodules R91.8 ; Chronic respiratory failure with hypoxia J96.11 ; Pulmonary arterial hypertension I27.21 ; Loculated pleural effusion J90 ; History of tobacco abuse Z87.891 ; 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 [address] 10/23/2024 [facility] Centrilobular emphys verito J43.2 ; Hilar lymphadenopathy R59.0 ; Multiple pulmonary nodules R91.8 ; Chronic respiratory failure with hypoxia J96.11 ; Pulmonary arterial hypertension I27.21 ; Loculated pleural effusion J90 ; History of tobacco abuse Z87.891 ; nursing home (current) use of inhaled steroids Z79.51 and Obesity, class 1 E66.811 [facility] [address] [facility] [address] 10/11/2024 [facility] [address] [facility] [place] [address]/ [facility] [address] [facility] [address]/[facility] Medicine [address] [facility] [address]/[facility] Medicine [address] [facility] [place] [address]/[facility] [address] [facility] [place] [address]/01/2025[facility] [address] [facility] [place] [address]/11/2024[facility] Encounter Date Diagnosis (ICD Code) Assessment Notes Treatment Notes Treatment Clinical Notes Section Notes 07/09/2024 Centrilobular emphysema (ICD-10 - J43.2) Prior treatments: Trelegy > Advair + Incurse, Dulera + Spiriva Emphysematous changes noted on past chest CT imaging. Pulmonary function 06/20/2018 was borderline very severe obstruction. Discussed that he is already on triple inhaled therapy (ICS/LABA/LAMA), so any commercially availble inhaler change is simply a lateral move. Eosinophils 03/13/2024 were only 3.1%/200, so he is not a Dupixent candidate for COPD based on current recommendations. Discussed Ohtuvayre (ensifentine), a novel PDE3/PDE4 inhibitor, in addition to this patient's regimen. It is dose via nebulizer BID. This is in addition to his Trelegy. Patient voiced he would like to try it. Initial paperwork was signed in the office. They were warned that it can be expensive. Gsav-hl-vjjs performed in the office today regarding need for nebulizer & supplies. Discussed with patient & son it has been over 6 years since last PFT. Recommend repeating one to evaluate his function. Additionally, if his spirometry remains poor, he would be a pulmonary rehabilitation candidate. They voiced agreement. 07/09/2024Hilar lymphadenopathy (ICD-10 - R59.0) Chest CT 03/25/2023 noted bilateral hilar lymphadenopathy - new compared to prior available imagingfrom 05/30/2019. Etiology is unclear. Recommend repeating chest CT with contrast. Patient voiced agreement. Chest CT with contrast, with creatinine, were ordered. 5Centrilobular emphysema (ICD-10 - J43.2) Prior treatments: Trelegy > Advair + Incurse, Dulera + Spiriva Patient is doing about the same. Remains on Trelegy and is symptomatic. Ohtuvayre was approved but has a $650/month co-pay which the patient is unable to do - possible he may get assistance with it this summer; if this happens, he is encouraged to get it. PFT shows some mild improvement in spirometry, plethysmography, and diffusion capacity! This is good news that he did not decline since 06/20/2018. Regardless, he still remains in the severe GOLD range with FEV1 38% (FEV1/FVC 43%). I strongly recommended pulmonary rehabilitation given his severe obstructive lung disease. Transportation is an issue to get up here. [facility] closer. They have pulmonary rehabilitation there. Patient voiced he would like pulmonary rehabilitation there, but only that there; any other testing he wants to come to [facility]. Will check for alpha-1 antitrypsin (AAT) deficiency. Pamphlet discussing AAT causes, testing, and potential treatment was provided to the patient. Appropriate follow-up is dependent on identified genotype. F/U ~3 months. 10/23/2024Hilar lymphadenopathy (ICD-10 - R59.0) Chest CT 03/25/2023 noted bilateral hilar lymphadenopathy - new compared to prior available imagingfrom 05/30/2019. Appears resolved on CT chest 08/02/2024. 07/09/2024Multiple pulmonary nodules (ICD-10 - R91.8) Again on chest CTA 03/25/2023, pulmonary nodules were noted, largest in RLL @ 8.8mm. There is mention of a RLL 10mm nodule on LDCT 05/30/2019, but there was also a left upper lobe nodule @ 8mm - I personally reviewed this imaging and noted it is truly GLO. There was only 1 nodule I saw as well (in the event the radiologist mixed up right and left). Given the size of >8mm, a [address] F/U is recommended by current Fleischner Society Guidelines; he is now 15 months out, so a chest CT has been ordered for monitoring - with contrast d/t lymphadenopathy as described above. 07/09/2024hronic respiratory failure with hypoxia (ICD-10 - J96.11) Patient is on chronic supplemental O2, prescribed before today's initial visit. He is O2-dependent COPD. 10/23/2024Multiple pulmonary nodules (ICD-10 - R91.8) Multiple CT chest note differering nodules, extremely difficult to compare as the 2 most recent studies were not compared side by side. With a spiculated 1cm RUL nodule, I do not want to risk missinga neoplasm - I recommended repeating the CT chest (without contrast this time) in 3 months to document stability vs. worsening. Patient & son voiced understanding. This would be due around the end of this month (October 2024) - the patient stated he would be able to get it done sometime mid-November - several weeks should not make a major difference. 5Chronic respiratory failure with hypoxia (ICD-10 - J96.11) O2 was prescribed prior to patient establishing with me. 07/09/2024Pulmonary arterial hypertension (ICD-10 - I27.21) Right cardiac catheterization 05/22/2018: -RV: 47/6 (9) -RA: 47/ (29) -PCWP: 10 Report suggested mild pulmonary arterial hypertension. It does not appear that there has been any further w/up or treatment of this. Depending on his function and symptoms, this may need to be revisited in the future. 07/09/2024Loculated pleural effusion (ICD-10 - J90) Chronic LLL loculated pleural effusion - present as far back as 05/21/2018 as I can tell. Associated with CHF? 10/23/2024Pulmonary arterial hypertension (ICD-10 - I27.21) Right cardiac catheterization 05/22/2018: -RV: 47/6 (9) -RA: 47 (29) -PCWP: 10 Likely has some contribution from his severe pulmonary disease. 10/23/2024Loculated pleural effusion (ICD-10 - J90) Chronic LLL loculated pleural effusion - present as far back as 05/21/2018. 07/09/2024History of tobacco abuse (ICD-10 - Z87.891) 2ppd x 40 years, quit 03/2023 Not a current LDCT candidate d/t diagnostic chest CT for w/up of bilateral hilar lymphadenopathy and multiple pulmonary nodules. 07/09/2024Long term (current) use of inhaled steroids (ICD-10 - Z79.51) Patient was counseled to rinse & gargle with water after inhaled corticosteroid use. 10/23/2024History of tobacco abuse (ICD-10 - Z87.891) 2ppd x 40 years, quit 03/2023 LDCT screening held d/t monitoring nodules. 10/23/2024Long term (current) use of inhaled steroids (ICD-10 - Z79.51) Patient was counseled to rinse & gargle with water after inhaled corticosteroid use. 07/09/2024Obesity, class 1 (ICD-10 - E66.811) Patient's weight is inducing a restrictive pulmonary physiology. Weight loss indicated: Decrease calories, increase activity. 10/23/2024Obesity, class 1 (ICD-10 - E66.811) Patient's weight is inducing a restrictive pulmonary physiology. Weight loss indicated: Decrease calories, increase activity. Plan Of Treatment Pending Test Test Name Order Date CT Chest w/o contrast 10/23/2024 Pulmonary Rehabilitation 10/23/2024 CBC AUTO DIFF 10/10/2023 CBC AUTO DIFF 12/12/2023 CBC AUTO DIFF 01/11/2024 CBC AUTO DIFF 07/23/2024 CBC AUTO DIFF 10/01/2024 CRP 01/11/2024 CRP 07/23/2024 CRP 10/01/2024 CRP 10/10/2023 FERRITIN 10/10/2023 FERRITIN 01/11/2024 FERRITIN 12/12/2023 FERRITIN 10/01/2024 FERRITIN 07/23/2024 FOLATE 12/12/2023 IRON AND TIBC 12/12/2023 IRON AND TIBC 10/10/2023 IRON AND TIBC 07/23/2024 IRON AND TIBC 01/11/2024 IRON AND TIBC 10/01/2024 LDH 07/23/2024 LDH 10/10/2023 PROF 14(COMP METB) 01/11/2024 PROF 14(COMP METB) 07/23/2024 PROF CHEM 8 (BAS METB) 10/01/2024 PROF CHEM 8 (BAS METB) 12/12/2023 TSH 12/12/2023 VITAMIN D 25 [place] 12/12/2023 CT CHEST W CON 08/02/2024 Erythrocyte Sedimentation Rate 5 Erythrocyte Sedimentation Rate 5 Erythrocyte Sedimentation Rate 4 Erythrocyte Sedimentation Rate 4 Erythrocyte Sedimentation Rate 4 Manual Differential 10/10/2023 Second ABO/RH Type 10/11/2023 Packed Red Blood Cells 10/10/2023 Type and Screen 10/10/2023 CT abdomen pelvis w con 08/02/2024 Vitamin B12 10/10/2023 Vitamin B12 12/12/2023 Vitamin B12 01/11/2024 SUSANA, PE and FLC, Serum 01/11/2024 SUSANA and PE, Serum 10/10/2023 Reticulocyte Pct Auto 10/10/2023 Reticulocyte Pct Auto 07/23/2024 Erythropoietin (EPO), Serum 01/11/2024 Hgb Fractionation [place] 10/26/2023 Vitamin B12 07/23/2024 Vitamin B12 10/01/2024 Insurance Providers Payer Name Payer Address Payer Phone Subscriber Number Group Number Insured Name Patient Relationship to Insured Coverage Start Date Coverage End Date [employer] [address] WILFRED DAVIS [id number] Fadia Merritt - patient is the [id number] 2019 Medical (General) History Medical History History ICD Code Centrilobular emphysema J43.2 Chronic respiratory failure with hypoxia J96.11 Multiple pulmonary nodules R91.8 Pulmonary arterial hypertension I27.21 Loculated pleural effusion J90 History of stroke Z86.73 History of tobacco abuse Z87.891 Hilar lymphadenopathy R59.0 Surgical History Surgery Date(Month/Year) right hip replacement tonsillectomyEGD/ColonoscopyPEG Tube PlacementCardiac Xmnxepdsumujyeh00/18/2018 shoulder replacement-rightHospitalization History Reason Date(Month/Year) Chronic Respiratory [facility] 03/27/2023 Chronic Respiratory Failure-[facility] 08/06/2023
--- OUTSIDE RECORDS SUMMARY | 2025-05-03 08:20 | XMS_ITS | Clinical Summary ---
Author Organization [facility] Address [id number] [address] [place] [address] Care Team Providers Care Chip Mixer Name Role Phone Daniella Warner MD Primary Care Provider [phone] Allergies No known active allergies Medications MedicationSigDispense QuantityRefillsLast FilledStart DateEnd DateStatus acetaminophen (TYLENOL EXTRA STRENGTH) 500 mg tablet Take 2 tablets (1,000 mg total) by mouth in the morning and 2 tablets (1,000 mg total) before bedtime.Active aspirin 81 mg Take 1 tablet (81 mg total) by mouth in the morning.Active sucralfate (CARAFATE) 1 gram tablet Take 1 tablet (1 g total) by mouth in the morning and 1 tablet (1 g total) at noon and 1 tablet (1 g total) in the evening and 1 tablet (1 g total) before bedtime.Active doxazosin (CARDURA) 4 mg tablet Take 1 tablet (4 mg total) by mouth nightly.Active ferrous sulfate 325 (65 FE) mg EC tablet Take 1 tablet (325 mg total) by mouth in the morning.Active fluticasone propion-salmeteroL (ADVAIR) 100-50 mcg/dose DISKUS Inhale 1 puff in the morning and 1 puff before bedtime.Active folic acid (FOLVITE) 1 mg tablet Take 1 tablet (1 mg total) by mouth in the morning.Active umeclidinium (INCRUSE ELLIPTA) 62.5 mcg/actuation blister with device Inhale 1 puff in the morning.Active metoprolol tartrate (LOPRESSOR) 25 mg tablet Take 1 tablet (25 mg total) by mouth in the morning and 1 tablet (25 mg total) before bedtime.Active midodrine (PROAMATINE) 10 mg tablet Take 1 tablet (10 mg total) by mouth 3 (three) times a day.Active bdmdgsli-dowg-HL-calcium &mins (THERAGRAN-M) 9 mg iron-400 mcg tablet Take 1 tablet by mouth in the morning.Active omeprazole (PriLOSEC) 20 mg capsule Take 1 capsule (20 mg total) by mouth in the morning.Active amino acids/protein hydrolys (PRO-STAT MAX ORAL) Take 30 mL by mouth every morning.Active rosuvastatin (CRESTOR) 10 mg tablet Take 1 tablet (10 mg total) by mouth in the morning.Active senna (SENOKOT) 8.6 mg tablet Take 1 tablet (8.6 mg total) by mouth in the morning.Active thiamine HCl (vitamin B-1) 100 mg tablet Take 1 tablet (100 mg total) by mouth in the morning.Active sertraline (ZOLOFT) 25 mg tablet Take 1 tablet (25 mg total) by mouth in the morning.07/04/2023ctive lidocaine HCL 4 % adhesive patch,medicated Apply 1 patch topically in the morning.Active calcium citrate (CALCITRATE) 200 mg (950 mg) tablet Take 2 tablets (400 mg total) by mouth in the morning and 2 tablets (400 mg total) at noon and 2 tablets (400 mg total) in the evening. Take with meals. 08/09/2023ctive cholecalciferol, vitamin D3, 2,000 units tablet Take 1 tablet (2,000 Units total) by mouth in the morning.08/10/2023ctive docusate sodium (COLACE) 100 mg capsule Take 1 capsule (100 mg total) by mouth in the morning and 1 capsule (100 mg total) before bedtime.08/09/2023ctive ipratropium-albuteroL (DUONEB) 0.5 mg-3 mg(2.5 mg base)/3 mL nebulizer Indications:Chronic obstructive pulmonary disease, unspecified COPD type ([facility])Inhale 3 mL by nebulization 4 (four) times a day.08/09/2023ctive magnesium oxide (MAGOX) 400 mg tablet Take 1 tablet (400 mg total) by mouth in the morning.08/10/2023ctive melatonin (CIRCADIN) tablet Take 2 tablets (6 mg total) by mouth nightly.08/09/2023ctive nicotine (NICODERM CQ) 21 mg/[address] 1 patch on the skin in the morning.08/10/2023ctive polyethylene glycol (GLYCOLAX) 17 gram packet Take 17 g by mouth daily as needed (constipation).08/09/2023ctive sennosides-docusate sodium (SENOKOT-S) 8.6-50 mg Take 2 tablets by mouth nightly.08/09/2023ctive QUEtiapine (SEROquel) 25 mg tablet Take 50 mg for 3 days and then change to 25 mg for 3 days then stop04/17/2023 Active oxyCODONE (OXY-IR) 5 mg capsule Take 1 capsule (5 mg total) by mouth every 4 (four) hours as needed for pain. Max Daily Amount: 30 mgActive flu vac 2022 65up-cmhPC12R,PF, (FLUAD QUAD 2022-,65Y UP,,PF,) 60 mcg (15 mcg x 4)/0.5 mL syringe Inject 0.5 mL into the appropriate muscle During hospitalization.Active pneumococcal conj. 20-valent (PREVNAR 20, PF,) 0.5 mL vaccine Inject 0.5 mL into the appropriate muscle During hospitalization.Active COVID axy49-34,12up,,PF, (SPIKEVAX ,12Y UP,,PF,) 50 mcg/0.5 mL injection Inject 0.5 mL (50 mcg total) into the appropriate muscle During hospitalization. Active Active Problems ProblemNoted DateDiagnosed DateClosed fracture of pubic ramus, right, sequela 08/06/2023Tobacco abuse08/06/2023History of jksytgurlm37/03/2024History of uuuvcu4308/06/2023losed fracture of multiple pubic rami, right, initial encounter 08/05/2023losed fracture of right hip08/05/2023Fall08/05/2023Severe anmamogyytsm88/02/2024cute on chronic respiratory failure with hypoxia and lvmcclowhax81/02/2024ongestive heart failure, unspecified HF chronicity, unspecified heart failure type03/02/2024Cerebral hdxnzyo63/02/2024Chronic obstructive pulmonary disease, unspecified COPD type08/05/2023oagulopathy 4Alcoholic hepatitis without dvpwwen6708/05/2023ltered mental status, unspecified altered mental status type5593Xxugtrdbc40/30/2023Iron deficiency siewxt6604/02/20239541Hzivrtvuihwmfug57/29/2023Stenosis of left carotid agsvxj9303/30/2023Vertebral artery stenosis, left03/30/20238801Oprhojiotymcu01/25/2023 Qmrfskeumfk51/25/9985Rtumtsia12/25/2023cute btafqhpkwlhonl20/25/2023Swallowing duhxaauxqhb07/24/2023hronic respiratory failure with hypoxia, on home O2 qjgydjy5103/21/2023cute respiratory failure with hypoxia and hypercarbia 03/21/2023erebrovascular vsgnxwaj56/14/2018Hypertensive qyhvgrpf51/14/2018Acute systolic heart rjeqtqi8705/18/2018Cardiac islsxouxo56/05/2016Elevated liver zhsrsyg7602/06/20164030Vumiipztfdi03/03/2016Pericardial nefrrinv06/02/2016Hyperkalemia 02/05/20169492Ojkgrprcgfkn70/02/2016Bilateral pleural ibvfijjg44/02/2016Alcohol abuse02/05/2016 Immunizations ImmunizationAdministration DatesNext DueCOVID-19, mRNA, LNP-S, PF, 30mcg/0.3mL Dose06/01/2021,05/11/2021Influenza Vaccine, Quadrivalent, Xhyliebamw57/07/2021 Pneumococcal Owqqthkpecsbkc70/05/2016 Social History Tobacco UseTypesPacks/DayYears UsedDateSmoking Tobacco: FormerCigarettes Tobacco Cessation:Counseling Given: Not Answered Alcohol UseStandard Drinks/WeekCommentsNot Currently0 (1 standard drink = 0.6 oz pure alcohol)[facility] UtilitiesAnswerDate RecordedIn the past 12 months has the electric, gas, oil, or water company threatened to shut off services in your home?No4PRAPARE - TransportationAnswerDate RecordedIn the past 12 months, has lack of transportation kept you from medical appointments or from getting medications?No08/06/2023In the past 12 months, has lack of transportation kept you from meetings, work, or from getting things needed for daily living?No08/06/2023Housing InstabilityAnswerDate RecordedAre you worried or concerned that in the next two months you may not have stable housing that you own, rent or stay in as a part of a household?No08/06/2023Hunger Screening AnswerDate RecordedWithin the past 12 months we worried whether our food would run out before we got money to buy more.Never True08/06/2023Within the past 12 months the food we bought just didn't last and we didn't have money to get more. Never True08/06/2023Sex and Gender InformationValueDate RecordedSex Assigned at BirthNot on fileLegal HbqPunj13/08/2023 11:02 AM ESTGender IdentityNot on file Sexual OrientationNot on file Last Filed Vital Signs Vital SignReadingTime TakenCommentsBlood Cyihkgwg963/57008/11/2023 4:33 PM EST Xjscy613108/11/2023 4:33 PM FYSAcescviflwz33.6 ??C (97.9 ??F)08/24/2023 9:36 AM EDTRespiratory Qqay797408/11/2023 4:33 PM ESTOxygen Nyluwahheo06%08/11/2023 4:33 PM ESTInhaled Oxygen Concentration--Aoyyua65.5 kg (148 lb 13 oz)08/24/2023 9:36 AM FTWRuzziy662.8 cm (5' 10 )08/24/2023 9:36 AM EDTBody Mass Index21.35 08/24/2023 9:36 AM EDT Plan of Treatment Health MaintenanceDue DateLast DoneCommentsDepression Vuspvfxyg03/25/1965 DTaP,Tdap and Td Vaccines (1 - Tdap)1971Zoster (Shingles) Vaccine (1 of 2) 2002RSV ( or age 60+ yrs) (1 - Risk 60-74 years 1-dose series) 2012Fall Risk Ascfczqpx50/25/2018Tobacco Mkbkteswh35 Adult BMI Mogdhsstp022024COVID-19 Vaccine ( season) /, 05/11/2021Influenza Wcgkpso52bdominal Aortic Aneurysm (AAA) SzidbaQimxqdhgu81/03/2024 Goals GoalPatient Goal TypeAssociated ProblemsRecent ProgressPatient-Stated?Author [facility] Kristina West RN Note: Evaluation of progress towards goal: Family anticipates discharge to [facility] Medical Devices ImplantedTypeAreaManufacturerDevice IdentifierShelf Expiration DateModel / Serial / LotCement Bn Bio 40gm Rpl [id number] - [id number] Implanted:Qty: 1 on 08/07/2023 by Mauricio Rose MD at [facility] CementRight: HipZimmer [id number] / / [id number] Bn Bio 40gm Rpl [id number] - [id number] Implanted:Qty: 1 on 08/07/2023 by Mauricio Rose MD at [facility] CementRight: HipZimmer [id number] / / [id number] Bn Cmnt 14-17mm Lg Im Cnl Strl - [id number] Implanted:Qty: 1 on 08/07/2023 by Mauricio Rose MD at [facility] CementRight: HipZimmer [id number] / / [id number] Stm 13mm Hip Dist Pmma Pstnr Strl - [id number] Implanted:Qty: 1 on 08/07/2023 by Mauricio Rose MD at [facility] Orthopedic ImplantRight: HipZimmer [id number] / / [id number] Unplr 50mm Biomr Ii E-2 Hip Actb Cocrmo Mdlr - [id number] Implanted:Qty: 1 on 08/07/2023 by Mauricio Rose MD at [facility] Orthopedic ImplantRight: HipZimmer [id number] / / [id number] Fem 140mm 11mm Std Os Echo Fx Cocr Hip Strl Rpl -[id number] - [id number] Implanted:Qty: 1 on 08/07/2023 by Mauricio Rose MD at [facility] Orthopedic ImplantRight: HipZimmer [id number] / / [id number] Actb -3mm Tpr Hip E-2 - [id number] Implanted:Qty: 1 on 08/07/2023 by Mauricio Rose MD at [facility] Orthopedic ImplantRight: HipZimmer [id number] / / [id number] Procedures Procedure NamePriorityDate/TimeAssociated DiagnosisCommentsUS RETROPERITONEAL NZOPPNKKZygdcku76/03/2024 2:05 PM EST from Last 3 Months or Most Recently Relevant to Health Maintenance Results * Ultrasound retroperitoneal complete (08/06/2023 2:05 PM EST)Anatomical Region LateralityModalityBodyUltrasoundSpecimen (Source)Anatomical Location / LateralityCollection Method / VolumeCollection TimeReceived Time08/06/2023 10:25 PM EST Narrative 08/06/2023 10:28 PM EST Renal ultrasound, 08/06/2023. History: Renal cysts. Comparison: CT abdomen and pelvis 08/04/2023. Technique: Multiple grayscale sonographic images of the kidneys were obtained. Color Doppler imaging was used to assess blood flow characteristics. Findings: Right kidney is 13.1 x 4.7 x 5.4 cm. Cortical thickness is 8 mm. ??Multiple anechoic lesions with posterior acoustic enhancement consistent with simple cysts, largest in the medial kidney measuring 4.0 x 3.5 x 3.8 cm. ??Renal parenchymal echotexture is normal with no hydronephrosis, nephrolithiasisor solid mass. Left kidney is 11.8 x 5.6 x 6.1 cm. Cortical thickness is 11 mm. Multiple anechoic lesions with posterior acoustic enhancement consistent with simple cysts, largest in the posterior mid kidney measuring 3.2 x 3.4 x 3.3 cm. ??Renal parenchymal echotexture is normal with no hydronephrosis, nephrolithiasis or solid mass. Bladder is decompressed with a Elaine catheter. Ureteral jets were not visualized. IMPRESSION: * ??Multiple bilateral simple renal cysts require no additional evaluation. * ??No acute abnormality. Finalized by Tio Zambrano MD on 08/06/2023 10:28 PM Procedure Note Tio Zambrano MD - 08/06/2023 Renal ultrasound, 08/06/2023. History: Renal cysts. Comparison: CT abdomen and pelvis 08/04/2023. Technique: Multiple grayscale sonographic images of the kidneys wereobtained. Color Doppler imaging was used to assess blood flowcharacteristics. Findings: Right kidney is 13.1 x 4.7 x 5.4 cm. Cortical thickness is 8 mm. Multiple anechoic lesions with posterior acoustic enhancement consistent withsimple cysts, largest in the medial kidney measuring 4.0 x 3.5 x 3.8 cm.Renal parenchymal echotexture is normal with no hydronephrosis,nephrolithiasis or solid mass. Left kidney is 11.8 x 5.6 x 6.1 cm. Cortical thickness is 11 mm. Multiple anechoic lesions with posterior acoustic enhancement consistent withsimple cysts, largest in the posterior mid kidney measuring 3.2 x 3.4 x3.3 cm. Renal parenchymal echotexture is normal with no hydronephrosis, nephrolithiasis or solid mass. Bladder is decompressed with a Elaine catheter. Ureteral jets were notvisualized. IMPRESSION: * Multiple bilateral simple renal cysts require no additionalevaluation. * No acute abnormality. Finalized by Tio Zambrano MD on 08/06/2023 10:28 PM Authorizing ProviderResult TypeResult StatusStephanlucrecia Randolph CUSTOM TAILOR APPRENTICE-CNPIMG US ORDERABLESFinal Result from Last 3 Months or Most Recently Relevant to Health Maintenance Insurance Advance Directives * Full Code (Latest Code Status on File) Date ActivatedDate InactivatedComments08/06/2023 3:35 AM08/11/2023 8:20 PM * Full Code Date ActivatedDate InactivatedComments08/05/2023 11:10 AM08/06/2023 3:30 AM NameRelationshipHealthcare Agent RelationshipCommunicationJoseph CarolAlejaWillis-Knight[facility] Centerst Alternate Health Care Agent* Care Teams Team MemberRelationshipSpecialtyStart DateEnd Date Daniella Warner MD [address] [place] [address] PCP - GeneralFamily Medicine08/07/23
--- OUTSIDE RECORDS SUMMARY | 2025-05-03 08:20 | XMS_ITS | Clinical Summary ---
Author Organization [facility] Healthcare Address [address] [place] [address] Care Team Providers Care Provider Enrollment Specialist Name Role Phone Unavailable Primary Care Provider Unavailabl e Social History Tobacco UseTypesPacks/DayYears UsedDateSmoking Tobacco: Never AssessedSex and Gender InformationValueDate RecordedSex Assigned at BirthNot on fileLegal Sex Male08/17/2022 6:43 PM EDTGender IdentityNot on fileSexual OrientationNot on file Plan of Treatment Not on file Insurance [address] [place] [address]
--- OUTSIDE RECORDS SUMMARY | 2025-05-03 08:20 | XMS_ITS | Clinical Summary ---
Author Organization [facility] Address [address], [address] [place] [address] Care Team Providers Care Senior Geologist Name Role Phone Daniella Warner MD Primary Care Provider [phone] Allergies No known active allergies Medications MedicationSigDispense QuantityRefillsLast FilledStart DateEnd DateStatus albuterol (PROVENTIL) (2.5 MG/3ML) 0.083% nebulizer solution Take 3 mLs by nebulization every 4 hours as needed for Wheezing 120 each Active albuterol sulfate HFA (PROVENTIL HFA) 108 (90 BASE) MCG/ACT inhaler Inhale 2 puffs into the lungs every 6 hours as needed for Wheezing 1 Inhaler Active tiotropium (SPIRIVA HANDIHALER) 18 MCG inhalation capsule Inhale 1 capsule into the lungs daily 30 capsule Active thiamine 100 MG tablet Take 1 tablet by mouth daily 30 tablet Active mometasone-formoterol (DULERA) 100-5 MCG/ACT inhaler Inhale 2 puffs into the lungs 2 times daily 1 Inhaler Active ferrous sulfate 300 (60 Fe) MG/5ML syrup 5 mLs by Per G Tube route 2 times daily 300 mL ctive folic acid (FOLVITE) 1 MG tablet 1 tablet by PEG Tube route daily 30 tablet ctive Multiple Vitamin (MULTIVITAMIN) TABS tablet 1 tablet by Per G Tube route daily 30 tablet ctive aspirin 81 MG chewable tablet 1 tablet by Per G Tube route daily 30 tablet ctive rosuvastatin (CRESTOR) 10 MG tablet 1 tablet by Per G Tube route nightly 30 tablet ctive doxazosin (CARDURA) 4 MG tablet 1 tablet by Per G Tube route daily 30 tablet ctive lansoprazole (PREVACID SOLUTAB) 15 MG disintegrating tablet 1 tablet by Per G Tube route every morning (before breakfast) 30 tablet ctive metoprolol tartrate (LOPRESSOR) 25 MG tablet 1 tablet by Per G Tube route 2 times daily 60 tablet ctive midodrine (PROAMATINE) 10 MG tablet 1 tablet by Per G Tube route 3 times daily (with meals) 90 tablet ctive QUEtiapine (SEROQUEL) 25 MG tablet Take 50 mg for 3 days and then change to 25 mg for 3 days then stop 10 tablet 04/17/2023ctive sertraline (ZOLOFT) 25 MG tablet 07/04/2023ctive traMADol (ULTRAM) 50 MG tablet 07/18/2023ctive sucralfate (CARAFATE) 1 GM tablet 06/05/2023ctive INCRUSE ELLIPTA 62.5 MCG/ACT inhaler 07/04/2023ctive Active Problems ProblemNoted DateDiagnosed DateH/O ischemic left MCA spcxno5004/11/2023Tobacco abuse04/05/2023End stage COPD04/05/20238310Gftnoyfhe50/30/2023Encounter for palliative care04/03/20230874Lsnwhpjyulgqelr95/29/2023Family history of hypochromic microcytic sxbqip4204/02/2023Iron deficiency cwuhst0204/02/2023erebral atrophy 03/30/2023erebral talduyfspd39/26/2023erebral microvascular wkmvjmp3203/30/2023 Stenosis of left carotid qimerd0803/30/2023Vertebral artery stenosis, left 03/30/2023cute on chronic respiratory failure with hypoxia and hypercapnia 03/30/20230391Owtaglftvfabf97/25/0502Fvwzxykwfgx72/25/5821Llzsdexv86/25/2023 Delirium, acute03/29/2023cute ofkykozhtgaxcb11/25/2023Swallowing dysfunction 03/28/2023Metabolic ecqvknufixwcsc11/24/2023Severe gvchiogmjzhe00/23/2023MS (altered mental status)03/27/2023Severe zpzjhk7603/21/2023hronic respiratory lgqqdvq6203/21/2023cute respiratory failure with hypoxia and hypercarbia 03/21/2023ongestive heart failure (CHF)03/21/2023lcoholic amysyayjl67/05/2016 CARDIAC ZSRLWQWQX19/05/9579Cvijqtcczbvi24/05/1816Pqcbqzqfffjg71/03/2016 Sgxkzgbhhyi71/03/2016Elevated liver wcudwtq1902/06/20162597Slgcrdzgaelh51/02/2016 Pericardial dymwjziy24/02/2016Alcohol abuse02/05/2016Left lower lobe pneumonia 02/05/2016Bilateral pleural tqukoogs41/02/3130Bosyrhvvamox44/02/2016Chronic obstructive pulmonary mxrykhz9602/05/20165114Xkxppvynibzt08/02/2016 Resolved Problems ProblemNoted DateDiagnosed DateResolved DatePreoperative oxoutfbcs55/30/2023 05/03/2023Moderate iafywkzctkwb33 Immunizations ImmunizationAdministration DatesNext DuePneumococcal, PPSV23, PNEUMOVAX 23, (age 2y+), SC/IM, 0.5mL02/08/2016 Social History Tobacco UseTypesPacks/DayYears UsedDateSmoking Tobacco: Every DayCigarettes Tobacco Cessation:Ready to Q uit: Not Asked; Counseling Given: Not Answered Alcohol UseStandard Drinks/WeekCommentsYes7 (1 standard drink = 0.6 oz pure alcohol)[facility] UtilitiesAnswerDate RecordedIn the past 12 months has the [employer], itsDapper, oil, or water [place] threatened to shut off services in your home?Patient fxarsqw7104/07/2023UDIT-CAnswerDate RecordedQ1: How often do you have a drink containing alcohol?Never03/21/2023Q2: How many drinks containing alcohol do you have on a typical day when you are drinking?Patient does not drink03/21/2023Q3: How often do you have six or more drinks on one occasion?Never03/21/2023Hunger Vital SignAnswerDate RecordedWithin the past 12 months, you worried that your food would run out before you got the money to buymore.Patient declined 04/07/2023Within the past 12 months, the food you bought just didn't last and you didn't have money to get more.Patient /03/2023RAPARE - TransportationAnswerDate RecordedIn the past 12 months, has lack of transportation kept you from medical appointments or from getting medications? Patient ybmaxnnv68/03/2023In the past 12 months, has lack of transportation kept you from meetings, work, or from getting things needed for daily living?Patient hskziwgb07/03/2023Housing Stability Vital SignAnswerDate RecordedIn the last 12 months, was there a time when you were not able to pay the mortgage or rent on time?Patient pxhqxtr2904/07/2023In the last 12 months, how many places have you lived?In the last 12 months, was there a time when you did not have a steady place to sleep or slept in ashelter (including now)?Patient refused 04/07/2023Interpersonal Safety ([facility] HRSN)AnswerDate RecordedHow often does anyone, including family and friends, physically hurt you?Unable to respond 04/07/2023Food InsecurityAnswerDate RecordedWithin the past 12 months, you worried that your food would run out before you got the money to buymore.98 04/07/2023Within the past 12 months, the food you bought just didn't last and you didn't have money to get more.9804/07/2023Interpersonal Safety Domain Source: IP Abuse ScreeningAnswerDate RecordedRead-Only, Retired: Physical Abuse Unable to otybry7703/29/2023Read-Only, Retired: Verbal AbuseUnable to assess 03/29/2023Read-Only, Retired: Emotional abuseUnable to vlwcjw8003/29/2023Read- Only, Retired: Financial AbuseUnable to gikbgy0803/29/2023Read-Only, Retired: Sexual abuseUnable to yqwfqc0903/29/2023Sex and Gender InformationValueDate RecordedSex Assigned at BirthNot on fileLegal JmkAzln7807/15/2012 10:29 AM EST Gender IdentityNot on fileSexual OrientationNot on file Last Filed Vital Signs Vital SignReadingTime TakenCommentsBlood Abjnnlfa919/6303 2:10 PM EDT Zrhad658308/15/2023 2:10 PM KEESbpdstkrcrw43.6 ??C (97.9 ??F)07/21/2023 9:28 AM ESTRespiratory Ugsi823006/17/2022 4:00 PM ESTOxygen Jvpohvsizl56%08/15/2023 2:10 PM EDTInhaled Oxygen Concentration--Uakenr47 kg (150 lb)08/15/2023 2:10 PM EDT Pcooih328.9 cm (6')08/15/2023 2:10 PM EDTBody Mass Index20.34008/15/2023 2:10 PM EDT Plan of Treatment Health MaintenanceDue DateLast DoneCommentsDepression Rjeqvx4406/29/1964 DTaP/Tdap/Td vaccine (1 - Tdap)1971Fecal-DNA (Cologuard): Average risk 1997Sigmoidoscopy/CT pgtheqcynlzb22/25/1998Shingles vaccine (1 of 2) 2002Respiratory Syncytial Virus (RSV) or age 60 yrs+ (1 - Risk 60-74 years 1-dose series)2012Pneumococcal 50+ years Vaccine (2 of 2 - PCV)/10/20152127Iyeynt13, 02/09/2016FIT/FOBT: Average risk/nnual Wellness Visit (Medicare Advantage)06/05/2024Flu vaccine (#1)/12/2020, 04/22/2019COVID-19 Vaccine (3 - season)/, 05/11/20218965Onhdrcnshag94, 04/17/2023olorectal Cancer Elkmns2704/17/2033Hepatitis C screenCompleted 02/06/2016AAA yyepwnPyqwuvonl76/10/2023, 04/05/2023, 02/07/2016, Additional history existsHepatitis A vaccineAged OutNo longer eligible based on patient's age to complete this topicHepatitis B vaccineAged OutNo longer eligible based on patient's age to complete this topicHib vaccineAged OutNo longer eligible based on patient's age to complete this topicMeningococcal (ACWY) vaccineAged OutNo longer eligible based on patient's age to complete this topicMeningococcal B vaccineAged OutNo longer eligible based on patient's age to complete this topic Polio vaccineAged OutNo longer eligible based on patient's age to complete this topic Procedures Procedure NamePriorityDate/TimeAssociated DiagnosisCommentsBLOOD OCCULT STOOL DIAGNOSTICSunquest Label Print04/14/2023 2:[address] ABDOMEN PELVIS WO CLYQGCBRAUVC07/10/2023 10:04 AM EST LIPID TEUQMWshhcbj02/24/2023 7:21 AM EDT HEPATITIS PANEL, ZBYQIQuicyyl10/03/2016 12:11 PM EDT from Last 3 Months or Most Recently Relevant to Health Maintenance Results * (ABNORMAL) Blood Occult Stool Diagnostic (04/14/2023 2:16 PM EST)Component ValueRef RangeTest MethodAnalysis TimePerformed AtPathologist SignatureOccult Blood, Stool #1POSITIVE(A)HNVWHZGT14/10/2023 2:16 PM [facility] Date, Stool #1.FECES04/14/2023 2:16 PM ESTM[facility]ATORIESTime, Stool #1 .FECES04/14/2023 2:16 PM ESTMERCY LABORATORIESSpecimen (Source)Anatomical Location / LateralityCollection Method / VolumeCollection TimeReceived Time STOOL SPECIMEN / Lratxiw6304/14/2023 2:16 PM EST04/14/2023 2:16 PM EST Narrative Authorizing ProviderResult TypeResult StatusRatiregine Ryan MDBODY FLUIDS AND STOOLS ORDERABLESFinal ResultPerforming OrganizationAddressCity/State/ZIP Code Phone Number [employer] [facility] [place] [address], [facility] [phone] * CT ABDOMEN PELVIS WO CONTRAST Additional Contrast? Radiologist Recommendation (04/14/2023 10:04 AM EST)Anatomical RegionLateralityModalityAbdomen, Pelvis, HipComputed TomographySpecimen (Source)Anatomical Location / Laterality Collection Method / VolumeCollection TimeReceived Time04/14/2023 10:09 AM EST Impressions 04/14/2023 10:34 AM EST Small bilateral effusions with adjacent consolidation representing atelectasis versus pneumonia. No acute abdominal or pelvic abnormality. Narrative 04/14/2023 10:34 AM EST EXAMINATION: CT OF THE ABDOMEN AND PELVIS [...] performed 04/05/2023. HISTORY: ORDERING SYSTEM PROVIDED HISTORY: [facility] TECHNOLOGIST [facility] HIST[facility] FINDINGS: Lower Chest: There are small bilateral effusions with adjacent consolidation representing atelectasis versus pneumonia. ??The visualized cardiac structures are unremarkable. Organs: The liver and spleen are normal size and overall attenuation. ??The gallbladder is contracted. ??The pancreas and adrenal glands are unremarkable. The kidneys are without obstructive uropathy. ??There are bilateral renal cysts few of which contain hemorrhagic or proteinaceous debris. ??No further evaluation is necessary. ??The urinary bladder is unremarkable. GI/Bowel: The stomach is unremarkable. ??There is a percutaneous gastrostomy tube. ??Loops of small bowel are normal in caliber without evidence for obstruction. ??The colon contains air and fecal residue. ??There is no free air or free fluid. ??There is stable stranding anterior to the urinary bladder the left of midline. Pelvis: Prostate gland and seminal vesicles are unremarkable. Peritoneum/Retroperitoneum: The psoas muscles are symmetric. ??The abdominal aorta is normal in caliber. ??The inferior vena cava is unremarkable. ??There is no retroperitoneal or mesenteric adenopathy. Bones/Soft Tissues: The extra-abdominal soft tissues are unremarkable. Procedure Note Bola Hurst MD - 04/14/2023 EXAMINATION: CT OF THE ABDOMEN AND PELVIS WITHOUT CONTRAST 04/14/2023 9:55 am TECHNIQUE: CT of the abdomen and pelvis was performed without the administration of intravenous contrast. Multiplanar reformatted images are provided forreview. Automated exposure control, iterative reconstruction, and/or weightbased adjustment of the mA/kV was utilized to reduce the radiation dose to aslow as reasonably achievable. COMPARISON: CT abdomen and pelvis performed 04/05/2023. HISTORY: ORDERING SYSTEM PROVIDED HISTORY: [facility] TECHNOLOGIST [facility] H[facility] FINDINGS: Lower Chest: There are small bilateral effusions with adjacentconsolidation representing atelectasis versus pneumonia. The visualized cardiacstructures are unremarkable. Organs: The liver and spleen are normal size and overall attenuation.The gallbladder is contracted. The pancreas and adrenal glands areunremarkable. The kidneys are without obstructive uropathy. There are bilateral renal cysts few of which contain hemorrhagic or proteinaceous debris. Nofurther evaluation is necessary. The urinary bladder is unremarkable. GI/Bowel: The stomach is unremarkable. There is a percutaneousgastrostomy tube. Loops of small bowel are normal in caliber without evidence for obstruction. The colon contains air and fecal residue. There is no freeair or free fluid. There is stable stranding anterior to the urinary bladderthe left of midline. Pelvis: Prostate gland and seminal vesicles are unremarkable. Peritoneum/Retroperitoneum: The psoas muscles are symmetric. Theabdominal aorta is normal in caliber. The inferior vena cava is unremarkable.There is no retroperitoneal or mesenteric adenopathy. Bones/Soft Tissues: The extra-abdominal soft tissues are unremarkable. IMPRESSION: Small bilateral effusions with adjacent consolidation representing atelectasis versus pneumonia. No acute abdominal or pelvic abnormality. Authorizing ProviderResult TypeResult StatusRatika Shelby [facility] ORDERABLES Final Result * Lipid Panel (03/28/2023 7:21 AM EDT)ComponentValueRef RangeTest MethodAnalysis TimePerformed AtPathologist NtjdrroxbYnhttmpgzuq081<200 mg/dL03/28/2023 7:21 AM EDTMERCY LABORATORIESComment: Cholesterol Guidelines: <200 Desirable 200-240 ??Borderline >240 Undesirable HDL46>40 mg/dL03/28/2023 7:21 AM EDTMERCY LABORATORIESComment: HDL Guidelines: <40 Undesirable 40-59 ?Borderline >59 Desirable LDL Apxzcpmzbbc516 - 130 mg/dL03/28/2023 7:21 AM EDTMERCY LABORATORIESComment: LDL Guidelines: <100 Desirable 100-129 ?? Near to/above Desirable 130-159 ?? Borderline >159 Undesirable Direct (measured) LDL and calculated LDL are not interchangeable tests. Chol/HDL Ratio2.9<510 7:21 AM EDTMERCY LABORATORIESComment:Triglycerides 101<150 mg/dL03/28/2023 7:21 AM EDTMERCY LABORATORIESComment: Triglyceride Guidelines: <150 Desirable 150-199 ??Borderline 200-499 ??High >499 Very high Based on AHA Guidelines for fasting triglyceride, March 2012. Specimen (Source)Anatomical Location / LateralityCollection Method / Volume Collection TimeReceived Time03/28/2023 7:21 AM EDT1 7:38 AM EDT Narrative Authorizing ProviderResult TypeResult StatusJulie Schira PATIENT SERVICE TECHNICIAN PST - NPCHEMISTRY ORDERABLESFinal ResultPerforming OrganizationAddressCity/State/ZIP Code[place] [address], [facility] [phone] * HEPATITIS PANEL, ACUTE (02/06/2016 12:11 PM EDT)ComponentValueRef RangeTest MethodAnalysis TimePerformed AtPathologist SignatureHepatitis B Surface Ag FKBISGHWVZKIM14/03/2016 1:14 PM EDTMHPN LABHepatitis C AbNONREACTIVENR 02/06/2016 1:14 PM EDTMHPN LABComment: ? The hepatitis C procedure used in our laboratory is a Chemiluminescent test specific for three recombinant HCV antigens. ??A negative anti-HCV result indicates that the antibodies to hepatitis C virus are not present at this time. Individuals with reactive anti-HCV should be considered infected and infectious until proven otherwise. ??Confirmation of all equivocal or reactive results is recommended by ordering HCV RNA by PCR. Hep B Core Ab, GhIQAYBZWXFKIQMJ40/03/2016 1:14 PM EDTMHPN LABHep A IgM SVLDMUZCLHPLN78/03/2016 1:14 PM EDTMHPN LABComment:[employer] [address] [place] [address] [phone] ([phone] (Source)Anatomical Location / LateralityCollection Method / VolumeCollection TimeReceived TimeBLOOD SPECIMEN / Ionncoi2402/06/2016 12:11 PM EDT02/06/2016 12:19 PM EDT Narrative Authorizing ProviderResult TypeResult StatusFidelis Obu MDIMMUNOLOGY ORDERABLES Final ResultPerforming OrganizationAddressCity/State/ZIP CodePhone Number [place] [id number] [address] [phone] [facility] from Last 3 Months or Most Recently Relevant to Health Maintenance Insurance Advance Directives * Full Code (Latest Code Status on File) Date ActivatedDate ZbwwoznkbfuRxpssraq07/31/2023 11:40 AM04/17/2023 9:09 PM * Full Code Date ActivatedDate TbgtwezcotzNyxbdqhl00/17/2023 2:35 AM03/27/2023 8:02 PM * Full Code Date ActivatedDate InactivatedComments02/05/2016 5:07 PM02/11/2016 9:37 PM NameRelationshipHealthcare Agent RelationshipCommunicationJoseph RenéLeslie Primary Decision Maker* Care Teams Team MemberRelationshipSpecialtyStart DateEnd Date Daniella Warner MD [address] [place] [id number] PCP - GeneralFamily Pedftujk76/18/23
--- OUTSIDE RECORDS SUMMARY | 2025-05-03 08:20 | XMS_ITS | Continuity of Care Document ---
Author Organization [facility] Address [address] [place] [address] Problems Condition ICD9 code ICD10 code SNOMED code Start Date End Date S tatus Fracture of unspecified part of neck of right femur, subsequent encounter for closed fracture with routine healing S72.001D08/11/2023ctiveOther specified fracture of right pubis, subsequent encounter for fracture with routine oczrqbbO25.591D08/11/2023ctiveEncounter for other orthopedic eaffiqswgF00.8908/11/2023ctiveAcute and chronic respiratory failure with blnkumaW49.21008/11/2023ctiveAcute and chronic respiratory failure with zwlesmjknsxW43.22008/11/2023ctiveAlcoholic hepatitis without gybrlilA11.10 08/11/2023ctiveCerebral infarction, eprftcinyxaI62.9008/11/2023ctiveChronic obstructive pulmonary disease, mrimcbeonpmY07.ctiveUnspecified severe protein-calorie utnqasekedytV1295ctiveCoagulation defect, vvdtwexjljdZ70.9008/11/2023ctiveEncephalopathy, yiitqiufmhvV49.40008/11/2023 ActiveHypo-osmolality and tajoydvznwucX18.103ctiveHeart failure, vdgwsfbkyduS18.9008/11/2023ctiveIron deficiency anemia, jagezjjerbiR21.9 08/11/2023ctiveEssential (primary) rkenqyoqzcneH3894ctiveOther disorders of plasma-protein metabolism, not elsewhere kzvchkckbtC95.0908/11/2023 ActiveOther pericardial effusion (noninflammatory)I31.39008/11/2023ctive Dysphagia, eauletyrtdqT55.10008/11/20231069LnkcbeRrahgzxsoiiF46.6008/11/2023ctive Major depressive disorder, recurrent, klhnywselvhS86.9008/11/2023ctiveAltered mental status, bvacylrshjsX30.8208/11/2023ctiveOther czqhkljuP10.0908/11/2023 ActiveOcclusion and stenosis of left carotid hbtdmtS49.22008/11/2023ctive Unspecified fall, subsequent kendbqngmK09.XXXD08/11/2023ctiveHypotension, szhqnpsgcccA49.9008/11/2023ctiveDegenerative disease of nervous system, ttzpcqdlndzR57.9008/11/2023ctivePersonal history of transient ischemic attack (TIA), and cerebral infarction without residual fdnqiloyV05.7308/11/2023ctive Dependence on supplemental lrrnnfJ75.8108/11/2023ctiveTobacco useZ72.0 08/11/2023ctiveMuscle weakness (generalized)M62.8108/11/2023ctiveDysphagia, oropharyngeal uwsfjX14.12008/11/2023ctiveOther symbolic zytletcaeqhkS88.8 08/11/2023ctive Results No Results Allergies, adverse reactions, alerts No known allergies and adverse reactions Immunizations Vaccine Route Date Status COVID-19 Vaccine Unassigned Route of Administration Completed COVID-19 Vaccine Unassigned Route of Administration Completed COVID-19 Vaccine Unassigned Route of Administration Completed Influenza Vaccine Unassigned Route of Administration 0 08/15/2023 Completed Pneumococcal Vaccine Unassigned Route of Administratio n 02/08/2016 Completed Medications Medication Instructions Route Dosage Frequency Start Date Stop Date Indications Status acetaminophen 500 mg tablet (acetaminophen) 2 tabs, oral, Twice A Day oral 1.0 12.0 h 024 2023 Fracture of unspecified part of neck of right femur, subsequent encounter for closed fracture with routine healing Active Adult Low Dose Aspirin (aspirin) 81 mg tablet,delayed release (DR/EC) (Adult Low Dose Aspirin (aspirin)) 1 tab, oral, Once A Day oral 1.0 1.0 d 024 2023 Coagulation defect, unspecified Active atorvastatin 20 mg tablet (atorvastatin) 20 mg, oral, Once A Day oral 1.0 1.0 d 024 2023 Occlusion and stenosis of left carotid artery Active calcium citrate 200 mg (950 mg) tablet (calcium citrate) 2 tabs, oral, Three Times A Day oral 1.0 8.0 h 08/15/2023 09/27/2023 ActiveCardura (doxazosin) 4 mg tablet (Cardura (doxazosin))1 tab, oral, At Bedtimeoral1.003//Essential (primary) hypertensionActive cholecalciferol (vitamin D3) 50 mcg (2,000 unit) capsule (cholecalciferol (vitamin D3))1 tab, oral, Once A Dayoral1.01.0 d0/ctive docusate sodium 100 mg capsule (docusate sodium)1 capsule, oral, Twice A Day, constipationoral1.012.0 h0ctiveenoxaparin 40 mg/0.4 mL syringe (enoxaparin)0.4 ml, subcutaneous, Once A Day, daily x45 dayssubcutaneous 1.01.0 d0Encounter for other orthopedic aftercareActive ferrous sulfate 325 mg (65 mg iron) tablet (ferrous sulfate)1 tab, oral, Once A Dayoral1.01.0 d0Iron deficiency anemia, unspecifiedActive Fluad Quad (65y up)(PF) (flu vac 2022 65up-nhgsd65l(pf)) 60 mcg (15 mcg x 4)/0.5 mL syringe (Fluad Quad (65y up)(PF) (flu vac 2022 65up-ypwqe06n(pf)))0.5 ml, intramuscular, Once - One Timeintramuscular1.0 /ctivefluticasone propion-salmeterol 100-50 mcg/dose blister with device (fluticasone propion-salmeterol)1 puff, inhalation, Twice A Day inhalation1.012.0 h0/cute and chronic respiratory failure with hypercapniaActivefolic acid 1 mg tablet (folic acid)1 tab, oral, Once A Day, supplementoral1.01.0 d0ctiveIncruse Ellipta (umeclidinium) 62.5 mcg/actuation blister with device (Incruse Ellipta (umeclidinium))1 puff, inhalation, Once A Dayinhalation1.01.0 d008/16/2023 09/27/2023hronic obstructive pulmonary disease, unspecifiedActiveipratropium- albuterol 0.5 mg-3 mg(2.5 mg base)/3 mL solution for nebulization (ipratropium-albuterol)3mL, inhalation, Four Times A Day, Inhale 3mL by nebulization 4 times a day.inhalation1.06.0 h0hronic obstructive pulmonary disease, unspecifiedActivelidocaine 4 % adhesive patch,medicated (lidocaine)1 patch, topical, Once A Day, to affected area of paintopical1.01.0 d0ctivemagnesium oxide 400 mg magnesium tablet (magnesium oxide)1 tab, oral, Once A Day, supplementoral1.01.0 d ctivemelatonin 3 mg tablet (melatonin)2 tab, oral, At Bedtime, sleep aideoral1.ctivemetoprolol tartrate 25 mg tablet (metoprolol tartrate)1 tab, oral, Twice A Dayoral1.012.0 08/11/2023 09/27/2023Heart failure, unspecifiedActivemidodrine 10 mg tablet (midodrine)1 tab, oral, Three Times A Dayoral1.08.0 h0Hypotension, unspecifiedActiveMiralax (polyethylene glycol 3350) 17 gram/dose powder (Miralax (polyethylene glycol 3350))17 grams, oral, Once A Day - PRN, for constipation oral1.01.0 d0ctivenicotine 21 mg/24 hr patch 24 hour (nicotine)1 patch, transdermal, Once A Daytransdermal1.01.0 d008/11/2023 09/27/2023Tobacco useActiveomeprazole 20 mg capsule,delayed release(DR/EC) (omeprazole)1 tab, oral, Once A Day, gerdoral1.01.0 d0/4Active oxycodone 5 mg tablet (oxycodone)0.5-1 tab, oral, Every 6 Hours - PRN, Take 0.5- 1 tab by mouth every 6 hrs as needed for pain for upto 1 day. Daily Amt: 20mg oral1.06.0 h0/05/2024Fracture of unspecified part of neck of right femur, subsequent encounter for closed fracture with routine healingActive Prevnar 20 (PF) (pneumoc 20-hilda conj-dip cr(pf)) 0.5 mL syringe (Prevnar 20 (PF) (pneumoc 20-hilda conj-dip cr(pf)))0.5 ml, intramuscular, Once - One Time intramuscular1.003/ctiveSenokot-S (sennosides-docusate sodium) 8.6-50 mg tablet (Senokot-S (sennosides-docusate sodium))2 tabs, oral, At Bedtime, supplementoral1.003/ctivesertraline 25 mg tablet (sertraline)1 tab, oral, Once A Dayoral1.01.0 d0/Major depressive disorder, recurrent, unspecifiedActiveSpikevax [id number](12y up)(PF) (covid opn67-16(12up)(andu)(pf)) 50 mcg/0.5 mL syringe (Spikevax [id number](12y up)(PF) (covid xvx49-88(12up)(andu)(pf)))0.5 ml, intramuscular, Once - One Time intramuscular1.003/ctivesucralfate 1 gram tablet (sucralfate)1 tab, oral, Four Times A Day, refluxoral1.06.0 h0/4Active sucralfate 1 gram tablet (sucralfate)1 tab, oral, Twice A Day, must be given 2 hours separate from other medsoral1.012.0 h0/lcoholic hepatitis without ascitesActivethiamine HCl (vitamin B1) 100 mg tablet (thiamine HCl (vitamin B1))1 tab, oral, Once A Dayoral1.01.0 d0/ctive Zyrtec (cetirizine) 10 mg tablet (Zyrtec (cetirizine))1 tablet, oral, Once A Day oral1.01.0 d0/ctive Vital Signs Date Vital Result Comment 09/19/2023 04:22 PM Oxygen Saturation 97 % 09/19/2023 01:23 PMOxygen Fkyktogfld18 %09/19/2023 11:28 AMOxygen Cukvhnsjvj16 % 09/19/2023 07:52 AMOxygen Qayuobgoeb05 %09/19/2023 01:31 AMOxygen Dhoiuibzon40 % 09/18/2023 09:24 PMOxygen Etqsdnlvhs83 %09/18/2023 04:44 PMOxygen Rxkixmhoqs77 % 09/18/2023 03:46 PMOxygen Hyyjrrfrsn50 %09/18/2023 11:41 AMOxygen Rvtrimetvg39 % 09/18/2023 08:36 AMOxygen Bpffelmsyh36 %09/12/2023 12:19 QBOyoyyrydgye99.2 [degF]Respiratory Rate16 /minHeart Rate83 /minBlood Pressure Atnyuuie787 mm[Hg] Blood Pressure Wopmjtysv91 mm[Hg]09/11/2023 10:03 LFHsoxubgjioq24.2 [degF] Respiratory Rate16 /minHeart Rate88 /minBlood Pressure Bskrtdqt623 mm[Hg]Blood Pressure Nehltirxt04 mm[Hg]09/10/2023 06:57 YZOvcjmveaamz77.6 [degF]Respiratory Rate18 /minHeart Rate82 /minBlood Pressure Okwauhrj25 mm[Hg]Blood Pressure Sequzdann72 mm[Hg]09/08/2023 10:13 JPIbplrzopxsx03.2 [degF]Respiratory Rate18 /minHeart Rate99 /minBlood Pressure Xbghnzgi311 mm[Hg]Blood Pressure Kdlrexeac25 mm[Hg]09/07/2023 10:03 GKNqchvpmnijq66.3 [degF]Respiratory Rate16 /minHeart Rate77 /minBlood Pressure Egcdooeb770 mm[Hg]Blood Pressure Ahuppsfng21 mm[Hg] 09/06/2023 05:34 YXIsxjqwupxgg69.7 [degF]Respiratory Rate18 /minHeart Rate82 /minBlood Pressure Aadkrixs790 mm[Hg]Blood Pressure Zhjuaricc80 mm[Hg]09/05/2023 10:54 AMBody Jekect982 [lb_av]Body Mass Index19.66 kg/m209/04/2023 11:59 PMBody Leqwwz909 [lb_av]Body Mass Index19.66 kg/m209/04/2023 01:00 CSRuizkyxronk93.4 [degF]Heart Rate96 /minBlood Pressure Yjotjypt940 mm[Hg]Blood Pressure Diastolic 74 mm[Hg]09/03/2023 11:50 FGGfdsmwnxjws40.4 [degF]Respiratory Rate16 /minHeart Rate67 /minBlood Pressure Leucktiz914 mm[Hg]Blood Pressure Ezurzlulb33 mm[Hg] 09/01/2023 02:54 YHDjqlxmoagot51.6 [degF]Respiratory Rate18 /minHeart Rate83 /minBlood Pressure Vrqunrjy996 mm[Hg]Blood Pressure Peydftqir57 mm[Hg]08/30/2023 03:30 UFCncziinyxab97.9 [degF]Respiratory Rate18 /minHeart Rate88 /minBlood Pressure Myzrdtaz774 mm[Hg]Blood Pressure Xylrmsoxo25 mm[Hg]08/29/2023 02:33 PM Body Qrwvlg371 [lb_av]Body Mass Index20.05 kg/m208/26/2023 03:12 AMRespiratory Rate18 /min08/22/2023 11:09 AMBody Ubnzjh978 [lb_av]Body Mass Index20.05 kg/m2 08/14/2023 06:47 AMBody Cwocvi256.3 [lb_av]Body Mass Index19.96 kg/m208/12/2023 07:16 AMBody Wssugz107.2 [lb_av]Body Mass Index19.95 kg/m208/11/2023 07:53 PM Body Maluin34 [in_us] Social History No smoking Hx information available Encounters Type CPT Code Date Location Provider Indication s encounter report 08/11/2023 08:58 PM - 09/19/2023 04:57 PMMarvin Lester MD01 Advance Directives Directive Description Verification Date Supporting Document(s) Other Directive
[2025-05-03 08:37] LABS: Hematocrit 31.2 % (42.0-54.0); Hemoglobin 9.2 g/dL (14.0-18.0); Immature Granulocytes Abs Auto 0.08 10^3/uL (0.00-0.03); Immature Granulocytes Pct Auto 0.6 % (0.0-0.5); Lymphocytes Absolute Auto 1.3 10^3/uL (1.2-3.8); Mean Corpuscular HGB Conc 29.5 g/dL (29.9-35.2); Mean Corpuscular Hemoglobin 26.1 pg (25.9-34.0); Mean Corpuscular Volume 88.4 fL (80.0-94.0); Platelet Count 445 10^3/uL (150-450); Red Blood Count 3.53 10^6/uL (4.70-6.10); White Blood Count 12.8 10^3/uL (4.0-11.0)
[2025-05-03 09:10] LABS: Iron 38.0 ug/dL (65.0-175.0); Percent Iron Saturation 14.2 %; Total Iron Binding Capacity 267.0 ug/dL (250.0-450.0)
[2025-05-03 09:27] LABS: Anion Gap 12.3; Blood Urea Nitrogen 17.0 mg/dL (7.0-18.0); Calcium 9.7 mg/dL (8.5-10.1); Carbon Dioxide 29.8 mmol/L (21.0-32.0); Chloride 100 mmol/L (98-107); Estimated GFR (African America >60 (>=60 mL/min/1.73m^2); Estimated GFR (Non-African Ame >60 (>=60 mL/min/1.73m^2); Glucose 128 mg/dL (74-106); Potassium 4.1 mmol/L (3.5-5.1); Sodium 138 mmol/L (136-145)
[2025-05-03 09:54] LABS: Ferritin 126.0 ng/mL (26.0-388.0)
[2025-05-04 06:44] LABS: Vitamin B12 740 pg/mL (232-1245)
== END 2025-05-03 08:15 | disposition home or self-care (01) ==
LOC: LAB 08:15
PROVIDERS: PCP Family Medicine; Visit Provider Internal Medicine Hematology & Oncology
DX: D64.9 Anemia, unspecified (principal); D50.9 Iron deficiency anemia, unspecified; K90.9 Intestinal malabsorption, unspecified
CPT/HCPCS: 36415; 80048; 82607; 82728; 83540; 83550; 85025; 85652; 86140

== ENCOUNTER 2025-05-23 09:02 | Outpatient (RCR) | payer MEDICARE, SELFPAY ==
[2025-05-23 09:05] VITALS: BP 148/61; PULSE 93; TEMP 36.1; O2SAT 92
[2025-05-23] MEDS: ACETAMINOPHEN 500 MG TABLET 1000 MG PO (09:34)
[2025-05-23] MEDS: diphenhydrAMINE HCL 25 MG, HYDROCORTISONE SODIUM SUCC/PF 100 MG in 0.9 % SODIUM CHLORID... 301.5 MG IV (09:35)
[2025-05-23] MEDS: IRON DEXTRAN COMPLEX 100 MG/2 ML VIAL 25 MG IVP (10:14)
--- NOTE | 2025-05-23 10:27 | PC.NURSE ---
0934: Pre-meds administered at this time. Pt. denies needs or c/o. 1014: Infed test dose given ivp as ordered. Will monitor for s&s of adverse reaction.
--- NOTE | 2025-05-23 10:58 | PC.NURSE ---
1058: Pt. taken to bathroom via chair to void. No needs or c/o. No s&s of adverse reaction to Infed test dose.
[2025-05-23] MEDS: 0.9 % SODIUM CHLORIDE 250 ML 20 ML IV (11:20)
--- NOTE | 2025-05-23 11:32 | PC.NURSE ---
1120: Infed infusion initiated at this time. Pt. without needs or c/o. Lunch offered, pt. declines.
--- NOTE | 2025-05-23 12:14 | PC.NURSE ---
1210: Pt. taken to bathroom to void. Tolerating iron infusion without c/o.
--- NOTE | 2025-05-23 12:48 | PC.NURSE ---
1248: Resting quietly with eyes closed. O2 intact at 2L n/c. Appears to be without s&s of distress.
[2025-05-27 14:12] LABS: Albumin 3.3 g/dL (2.9-4.4); Alpha-1-Globulin 0.3 g/dL (0.0-0.4); Alpha-2-Globulin 0.8 g/dL (0.4-1.0); Free Kappa Lt Chains,S 82.9 mg/L (3.3-19.4); Free Lambda Lt Chains,S 67.8 mg/L (5.7-26.3); Gamma Globulin 1.3 g/dL (0.4-1.8); Immunofixation Result, Serum Comment: (.); Immunoglobulin A, Qn, Serum 468 mg/dL (61-437); Kappa/Lambda Ratio,S 1.22 (0.26-1.65)
== END 2025-06-04 23:59 | disposition home or self-care (01) ==
LOC: HEMC 09:02
PROVIDERS: PCP Family Medicine; Visit Provider Internal Medicine Hematology & Oncology
DX: D64.9 Anemia, unspecified (principal); K90.9 Intestinal malabsorption, unspecified; D50.9 Iron deficiency anemia, unspecified; S32.000S Wedge compression fracture of unspecified lumbar vertebra, sequela; M54.50 Low back pain, unspecified; J44.9 Chronic obstructive pulmonary disease, unspecified; Z99.81 Dependence on supplemental oxygen; Z86.73 Personal history of transient ischemic attack (TIA), and cerebral infarction without residual deficits
CPT/HCPCS: 36415; 82784; 83521; 84155; 84165; 86334; 96365; 96366; 96367; 96376; G0463; J1200; J1720; J1750